=== PATIENT | male | born 1950 | race Caucasian/White ===

== ENCOUNTER 2022-09-06 17:00 | Inpatient (IN) | payer OTHER, SELFPAY ==
[2022-09-06 17:01] VITALS: BP 96/59; PULSE 105; RESP 20; TEMP 36.6; O2SAT 96; BMI 40.6
--- NOTE | 2022-09-06 17:15 | EKG12_ITS ---
Test Reason : BACK PAIN/SYNCOPE Blood Pressure : / mmHG Vent. Rate : 103 BPM Atrial Rate : 000 BPM P-R Int : 000 ms QRS Dur : 100 ms QT Int : 380 ms P-R-T Axes : 000 002 031 degrees QTc Int : 497 ms Atrial fibrillation with rapid ventricular response Nonspecific ST abnormality Poor R wave progression Abnormal ECG Confirmed by JOHANNA GRIMALDO, WILNER ([id number]), video tape editor RASHAUN SHAW ([id number]) on 09/08/2022 10:41:59 AM Referred By: ELAINE/ISAIAH Confirmed By:WILNER SPENCER MD
--- NOTE | 2022-09-06 17:28 | EX.ED.DYSGE1 ---
HPI History of Present Illness Chief Complaint: Weakness Narrative Narrative: 72-year-old male presents with diffuse weakness, weight loss and back pain. There is no documented past medical history. Upon chart review there is no recent imaging or hospitalizations, ED visits noted. Patient states he has a history of COPD, CHF. Patient states he had 2 months of back pain after fall that time. States the pain is constant, severe, located over the mid to lower back. States the pain does not radiate. Is worse with movement improved by rest. Patient denies any saddle anesthesia, urinary tension, bowel or bladder incontinence, lower extremity weakness, fever or IV drug use, no recent spinal manipulation or surgery, no recent urinary catheterization. Patient states he also has diffuse weakness, noted 1 episode of nonbloody nonbilious vomitus yesterday. States his pain has gotten increasingly worse despite taking tramadol. Old chart review: No records in [facility] or [facility] Medical History Afib Congestive heart failure (CHF) COPD (chronic obstructive pulmonary disease) Former smoker Hypertension Home Medications furosemide 20 mg tablet (Lasix) 20 mg PO DAILY 09/06/22 [History Last Taken Unknown] lisinopril 10 mg tablet 10 mg PO QHS 09/06/22 [History Last Taken Unknown] metoprolol tartrate 25 mg tablet 25 mg PO BID 09/06/22 [History Last Taken Unknown] mometasone 200 mcg/actuation HFA aerosol inhaler 1 puff inhalation BID 09/06/22 [History Last Taken Unknown] olodaterol 2.5 mcg/actuation mist for inhalation 2 inh inhalation DAILY 09/06/22 [History Last Taken Unknown] simvastatin 10 mg tablet 10 mg PO QHS 09/06/22 [History Last Taken Unknown] terazosin 2 mg capsule 2 mg PO QHS 09/06/22 [History Last Taken Unknown] tramadol 50 mg tablet 50 mg PO BID PRN Pain 09/06/22 [History Last Taken Unknown] warfarin 5 mg tablet 5 mg PO DAILY 09/06/22 [History Last Taken Unknown] Allergy/AdvReac Type Severity Reaction Status Date / Time pramoxine Allergy Rash Verified 09/06/22 18:48 Social History Smoking Status: Former smoker ROS ROS ED ROS Narrative Constitutional: Denies fever HEENT: Denies sore throat Neck: Denies neck pain Cardiovascular: Denies chest pain, syncope Respiratory: Denies shortness of breath GI: Denies nausea vomiting or abdominal pain : Denies changes in urinary habits Musculoskeletal: Endorses back pain Neurologic: Denies focal weakness, endorses diffuse weakness, denies slurred speech Skin denies rash Endocrine: Endorses weight loss EXAM Physical Exam Narrative Exam Narrative: Nursing triage notes reviewed, Vital signs reviewed Constitutional: please see mdm HENT: MMM Eyes: Pupils equal round and reactive to light, Extraocular muscles intact Neck: No stridor, no JVD, full neck ROM Lungs: Mild conversational dyspnea, orthopnea noted with reclining of the cot. No respiratory distress noted Heart: Regular rate and rhythm, No murmurs, No rubs and No gallops, 2+ distal pulses (radial, femoral, posterior tibial) in all extremities Abdomen: Soft, right-sided TTP, but no, rigidity, rebound or guarding, no obvious peritoneal signs, no palpable pulsatile abdominal masses, no auscultated abdominal bruit : No CVAT Back: No midline step-offs deformities of the CT or L-spine. TTP over thoracic and upper lumbar spine. Extremities: Chronic venous stasis changes to bilateral lower extremities, no chery pitting edema Neuro: No focal neurological deficits, cranial nerves II through XII intact, 5/5 strength in all extremities. Intact sensation to light touch in all extremities, 2+ reflexes bilateral patella dens. Gait not assessed secondary to acuity of condition. No ataxia. Skin: Chronic appearing dark discoloration of bilateral lower extremities. Const Vital Signs: 09/06/22 17:01 09/06/22 17:49 09/06/22 17:49 Temperature 97.8 F Temperature Source Temporal Pulse Rate 105 H 97 Respiratory Rate 20 H 23 H Respiratory Effort Normal Respiratory Pattern Normal Blood Pressure 96/59 L 125/59 H Blood Pressure Mean 71 81 Pulse Ox 96 95 Oxygen Delivery Method Room Air Room Air 09/06/22 21:24 09/06/22 22:00 Temperature 97.7 F L Temperature Source Temporal Pulse Rate 93 87 Respiratory Rate 17 16 Respiratory Effort Respiratory Pattern Blood Pressure 128/96 H 150/123 H Blood Pressure Mean 106 132 Pulse Ox 97 96 Oxygen Delivery Method Room Air Room Air MDM MDM MDM Narrative Medical decision making narrative: 72-year-old male here with acute on chronic back pain, diffuse weakness and weight loss in the setting of atrial fibrillation (on Coumadin), COPD and CHF. Patient is a poor historian. Cannot access additional records in [facility] or [facility]. Patient was initially hypotensive, tachycardic and mildly tachypneic. He appeared distressed in my initial exam. His hypotension improved without significant intervention. He was given 25 mcg of fentanyl for pain control. Initial exam without focal cardiopulmonary abnormalities, he had chronic appearing lower extremity venous stasis changes. He had no focal neurologic deficits. He had diffuse weakness. He had midline T and L tenderness on my exam but he had no back pain red flags to suggest a spinal emergency at this time. He did have right-sided abdominal TTP but no peritoneal signs. Given nonspecific complaint I obtained a broad lab and imaging work-up to further elucidate etiology of patient complaints. I obtained a chest x-ray to rule out pneumonia, evidence of CHF. I obtained CT scans of the thoracic, lumbar spine given tenderness to palpation noted on exam. Also obtain a CT scan of the abdomen pelvis. I obtained labs including a lipase, CBC, BMP. I obtained a troponin EKG BNP. Also obtain a lactate given initial hypotension and tachycardia to screen for signs of end organ hypoperfusion. Labs without evidence of systemic inflammation, urine infection, acute kidney injury or severe electrolyte abnormalities. There was a elevated lactate which is likely secondary to transient hypotension. No evidence of infection, no source. I doubt this is related to sepsis or severe systemic infection. We will repeat lactate after fluid resuscitation patient's BNP is mildly elevated but had no pulmonary edema and had chronic venous stasis changes but no obvious pitting edema. INR supratherapeutic there is no bleeding or significant anemia in fact but his hemoglobin is elevated. Imaging remarkable for no intra-abdominal abnormalities however did show a T11 and T12 compression fracture. This is the likely caused the patient severe back pain and weakness. Gave narcotic pain medicine. There is ambulate the patient and attempt to discharge him with oral pain medicine as the patient has a stable spine fracture however patient cannot ambulate stated I feel comfortable going home stated he like to be admitted to the hospital for pain control and physical therapy. I communicated this to the internal medicine doctor who accepted the patient's case. Lab Data Attestation: I reviewed the patient's lab results. Lab results narrative: CBC without leukocytosis, severe anemia, no thrombocytopenia. BMP without significant electrolyte abnormalities, no acute kidney injury, BNP mildly elevated suggestive of a volume overload Troponin negative no evidence of myocardial ischemia Lipase is wnl indicating no pancreatic inflammation. LFTs without evidence of hepatobiliary pathology Lactate elevated concerning for endorgan hypoperfusion will give fluids and repeat lactate Labs: Laboratory Results - last 24 hr 09/06/22 09/06/22 09/06/22 17:00 17:00 17:00 WBC 8.9 RBC 5.75 Hgb 16.7 H Hct 51.8 MCV 90.1 MCH 29.0 MCHC 32.2 RDW Std Deviation 47.7 H RDW Coeff of Medardo 14.5 Plt Count 275 MPV 11.5 Immature Gran % (Auto) 0.300 Neut % (Auto) 66.1 Lymph % (Auto) 21.3 [place] % (Auto) 10.3 H Eos % (Auto) 1.0 Baso % (Auto) 1.0 Absolute Neuts (auto) 5.9 Absolute Lymphs (auto) 1.90 Nucleated RBC % 0 PT INR Sodium 138 Potassium 3.9 Chloride 105 Carbon Dioxide 25.0 Anion Gap 8 BUN 18 Creatinine 1.19 Estim Creat Clear Calc 60.68 Est GFR (MDRD) Af Amer 77 Est GFR (MDRD) Non-Af 64 BUN/Creatinine Ratio 15.1 Glucose 156 H Lactic Acid Calcium 10.2 H Total Bilirubin Direct Bilirubin AST ALT Alkaline Phosphatase Troponin I High Sens 16 B-Natriuretic Peptide 273.3 H Total Protein Albumin Globulin Lipase 67 L Urine Color Urine Clarity Urine pH Ur Specific Center [place] Urine Protein Urine Glucose (UA) Urine Ketones Urine Occult Blood Urine Nitrite Urine Bilirubin Urine Urobilinogen Ur Leukocyte Esterase Urine RBC Urine WBC Ur Squamous Epith Cells Urine Bacteria Hyaline Casts Fine Granular Casts Urine Mucus 09/06/22 09/06/22 09/06/22 17:00 18:05 20:05 WBC RBC Hgb Hct MCV MCH MCHC RDW Std Deviation RDW Coeff of Medardo Plt Count MPV Immature Gran % (Auto) Neut % (Auto) Lymph % (Auto) [place] % (Auto) Eos % (Auto) Baso % (Auto) Absolute Neuts (auto) Absolute Lymphs (auto) Nucleated RBC % PT INR Sodium Potassium Chloride Carbon Dioxide Anion Gap BUN Creatinine Estim Creat Clear Calc Est GFR (MDRD) Af Amer Est GFR (MDRD) Non-Af BUN/Creatinine Ratio Glucose Lactic Acid 2.5 H* Calcium Total Bilirubin 1.30 H Direct Bilirubin 0.48 H AST 28 ALT 25 Alkaline Phosphatase 105 Troponin I High Sens B-Natriuretic Peptide Total Protein 8.6 H Albumin 3.1 L Globulin 5.5 H Lipase Urine Color Yellow Urine Clarity Clear Urine pH 6.5 Ur Specific Center [place] 1.015 Urine Protein 30 H Urine Glucose (UA) Normal Urine Ketones 5 H Urine Occult Blood 10 H Urine Nitrite Negative Urine Bilirubin 1 H Urine Urobilinogen 8 H Ur Leukocyte Esterase 25 H Urine RBC 0-5 SEEN Urine WBC 0-5 SEEN Ur Squamous Epith Cells 0-5 SEEN Urine Bacteria 1+ Hyaline Casts 0-5 SEEN Fine Granular Casts 0-5 SEEN Urine Mucus 1+ 09/06/22 09/06/22 20:37 21:33 WBC RBC Hgb Hct MCV MCH MCHC RDW Std Deviation RDW Coeff of Medardo Plt Count MPV Immature Gran % (Auto) Neut % (Auto) Lymph % (Auto) [place] % (Auto) Eos % (Auto) Baso % (Auto) Absolute Neuts (auto) Absolute Lymphs (auto) Nucleated RBC % PT 54.0 H INR 6.1 H* Sodium Potassium Chloride Carbon Dioxide Anion Gap BUN Creatinine Estim Creat Clear Calc Est GFR (MDRD) Af Amer Est GFR (MDRD) Non-Af BUN/Creatinine Ratio Glucose Lactic Acid 1.8 Calcium Total Bilirubin Direct Bilirubin AST ALT Alkaline Phosphatase Troponin I High Sens B-Natriuretic Peptide Total Protein Albumin Globulin Lipase Urine Color Urine Clarity Urine pH Ur Specific Center [place] Urine Protein Urine Glucose (UA) Urine Ketones Urine Occult Blood Urine Nitrite Urine Bilirubin Urine Urobilinogen Ur Leukocyte Esterase Urine RBC Urine WBC Ur Squamous Epith Cells Urine Bacteria Hyaline Casts Fine Granular Casts Urine Mucus Radiography Diagnostic Testing: Clinical Impression(s) from Imaging Studies Abdomen/Pelvis CT 09/06/22 17:49 IMPRESSION: Colonic diverticulosis. No obstruction or abscess. Cirrhotic contour of the liver. Electronically Signed: Marcus Márquez MD at 19:36 EDT , Lumbar Spine CT 09/06/22 17:49 IMPRESSION: Spondylolisthesis with spondylolysis at the lumbosacral junction. Lower thoracic compression fractures. Electronically Signed: Marcus Márquez MD at 19:41 EDT , Thoracic Spine CT 09/06/22 17:49 IMPRESSION: T11 and T12 compression fractures. Electronically Signed: Marcus Márquez MD at 19:38 EDT , Chest X-Ray 09/06/22 18:45 IMPRESSION: Degenerative changes, as described above. No demonstrated acute cardiopulmonary process. Electronically Signed: Marcus Márquez MD at 19:57 EDT , EKG Initial EKG: Attestation: I personally reviewed and interpreted this EKG as follows: Comments: EKG with rate controlled A. fib, normal axis, prolonged QT, no STEMI Discharge Plan Dx/Rx/DC Orders Clinical Impression: Compression fx, thoracic spine, Elevated lactic acid level, Supratherapeutic INR Disposition Disposition: Acute Care Hospital [facility] Discharge Date/Time: 09/06/22 23:10
[2022-09-06 17:49] VITALS: BP 125/59; PULSE 97; RESP 23; O2SAT 95
--- NOTE | 2022-09-06 17:49 | CT_ITS ---
STUDY: CT ABDOMEN AND PELVIS WITHOUT CONTRAST REASON FOR EXAM: Male, 72 years old. Right sided abdominal pain, n/v RADIATION DOSAGE (If Supplied By Facility): CTDIvol = ( 24.18 ) mGy, DLP = ( 1195.98 ) mGycm TECHNIQUE: Transaxial images were obtained from the dome of the diaphragm to the symphysis pubis without oral contrast, and without intravenous contrast. Sagittal and coronal images were reconstructed. Individualized dose optimization techniques were used for this CT. COMPARISON: None. FINDINGS: The visualized lung bases are unremarkable. There are coronary artery and mitral annular calcifications. There is a diffuse contour abnormality of the liver consistent with cirrhotic changes. Normal gallbladder and extrahepatic biliary system. There are multiple benign calcified granulomata of the spleen. Normal pancreas. Normal bilateral adrenal glands. Normal right kidney. Normal left kidney. Normal visualized stomach. Normal small intestine. There are multiple colonic diverticula consistent with diverticulosis. The appendix is visualized and appears normal. There is diffuse atherosclerotic calcification of the abdominal aorta, without a demonstrated aneurysm. Normal inferior vena cava. Normal retroperitoneum. Normal urinary bladder. There are prostatic calcifications. There is no free fluid in the abdomen or pelvis. Normal abdominal wall. There are diffuse degenerative changes of the visualized lumbar spine. There are T11 and T12 compression fractures of uncertain age. There is spondylolisthesis with spondylolysis at the lumbosacral junction. CT/Abdomen/Pelvis without Cont IMPRESSION: Colonic diverticulosis. No obstruction or abscess. Cirrhotic contour of the liver. Electronically Signed: Marcus Márquez MD at 19:36 EDT ,
--- NOTE | 2022-09-06 17:49 | CT_ITS ---
STUDY: CT THORACIC SPINE WITHOUT CONTRAST REASON FOR EXAM: Male, 72 years old. Mid back pain RADIATION DOSAGE (If Supplied By Facility): CTDIvol = ( 38.80 ) mGy, DLP = ( 1544.04 ) mGycm TECHNIQUE: The patient was scanned in a multi detector CT scanner. High resolution imaging was performed. Images were obtained from C7 to L1. Sagittal and coronal images were reconstructed. Individualized dose optimization techniques were used for this CT. COMPARISON: None. FINDINGS: Normal visualized cervical spine. Normal kyphosis of the thoracic spine. There is no substantial scoliosis. There is multilevel endplate spondylosis of the thoracic spine. There is a T11 compression fracture is 60% loss of height. There is T12 compression fracture with 30% loss of height of the superior end plate. The soft tissue structures are unremarkable. There are atherosclerotic and granulomatous calcifications. CT/Spine Thoracic without Contras IMPRESSION: T11 and T12 compression fractures. Electronically Signed: Marcus Márquez MD at 19:38 EDT ,
--- NOTE | 2022-09-06 17:49 | CT_ITS ---
STUDY: CT LUMBAR SPINE WITHOUT CONTRAST REASON FOR EXAM: Male, 72 years old. Back pain RADIATION DOSAGE (If Supplied By Facility): CTDIvol = ( 45.25 ) mGy, DLP = ( 1337.27 ) mGycm TECHNIQUE: The patient was scanned in a multi detector CT scanner. High resolution transaxial imaging was performed. Images were obtained from T12 to sacrum. Sagittal and coronal images were reconstructed. Individualized dose optimization techniques were used for this CT. COMPARISON: None FINDINGS: Normal lumbar lordosis. There is grade 2 spondylolisthesis at L5-S1 with pars interarticularis defects of L5. There is no substantial scoliosis. Normal vertebrae of the lumbar spine. There is no demonstrated compression deformity or fracture of the visualized lumbar vertebrae. There is T11 compression fracture with 60% loss of height. The T12 compression fracture 30% loss of height of the endplate. L1-2: Normal endplates. Normal disc height and morphology. Normal bilateral facet joints. Normal central canal and bilateral lateral recesses. Normal bilateral intervertebral neural foramina. L2-3: Normal endplates. Normal disc height and morphology. Normal bilateral facet joints. Normal central canal and bilateral lateral recesses. Normal bilateral intervertebral neural foramina. L3-4: Disc bulge. Spurring of the bilateral facet joints. Normal central canal and bilateral lateral recesses. Normal bilateral intervertebral neural foramina. L4-5: Disc bulge and spurring. Facet spurring. No canal stenosis or neural foramina are patent. L5-S1: Disc space narrowing. Facet spurring. No canal stenosis. Bilateral foraminal distortion with narrowing and encroachment. Normal visualized paraspinous soft tissue structures. There are atherosclerotic calcifications. CT/Spine Lumbar without Contrast IMPRESSION: Spondylolisthesis with spondylolysis at the lumbosacral junction. Lower thoracic compression fractures. Electronically Signed: Marcus Márquez MD at 19:41 EDT ,
[2022-09-06] MEDS: fentaNYL 100 MCG/2 ML Ampul 25 MCG IV (18:02)
[2022-09-06 18:12] LABS: Absolute Neutrophil Count 5.9 X10^3/uL (2.0-7.7); Basophil# 0.09 X10^3/uL; Eosinophil# 0.09 X10^3/uL; Hematocrit 51.8 % (40-54); Hemoglobin 16.7 g/dL (13.0-16.5); Lymphocyte % 21.3 % (19-41); Mean Corp Hgb Conc 32.2 g/dL (32-36); Mean Corpuscular Volume 90.1 fL (80-94); Mean Platelet Vol. 11.5 fl (6.2-12.0); Monocyte# 0.92 X10^3/uL; Monocyte% 10.3 % (0-10); NRBC Flagged by Analyzer 0 % (0-5); Neutrophil # 5.91 X10^3/uL (2.7-7.7); Neutrophil % 66.1 % (47-70); Platelet Count 275 K/mm3 (150-450); RBC Distribution Width CV 14.5 % (11.6-14.6); RBC Distribution Width SD 47.7 fl (35.1-43.9); Red Blood Count 5.75 M/mm3 (4.6-6.2); White Blood Count 8.9 K/mm3 (4.4-11.0)
[2022-09-06 18:34] LABS: Anion Gap 8 (5-15); BUN 18 mg/dL (7-18); BUN/Creat Ratio 15.1 RATIO (10-20); Calcium,Total 10.2 mg/dL (8.5-10.1); Chloride 105 mmol/L (98-107); Creatinine, Serum 1.19 mg/dL (0.70-1.30); EST Glomerular Filtration Rate 64 mL/min (>60); Est Glom Filt Rate - Afr Amer 77 mL/min (>60); Estimated Creatinine Clearance 60.68 ml/min; Glucose 156 mg/dL (74-106); Lipase 67 U/L (73-393); Potassium 3.9 mmol/L (3.5-5.1); Sodium Level 138 mmol/L (136-145); Troponin-I HS 16 pg/mL (3.0-78.0)
[2022-09-06 18:37] LABS: BNP,B-Type NATRIURETIC PEPTIDE 273.3 pg/mL (0-100)
[2022-09-06 18:40] LABS: AST(SGOT) 28 U/L (15-37); Alanine Aminotransfer ALT/SGPT 25 U/L (16-61); Albumin, Serum 3.1 g/dL (3.2-5.0); Alkaline Phosphatase 105 U/L (45-117); Bilirubin, Direct 0.48 mg/dL (0.00-0.30); Globulin 5.5 g/dL (2.2-4.2); Protein, Total 8.6 g/dL (6.4-8.2)
--- NOTE | 2022-09-06 18:45 | RAD_ITS ---
STUDY: X-RAY CHEST REASON FOR EXAM: Male, 72 years old. Cough, weakness TECHNIQUE: frontal view of the chest. COMPARISON: None. FINDINGS: The lungs are clear and expanded. There is no demonstrated pleural abnormality. Normal size heart. Normal mediastinum and yani. Normal visualized pulmonary arteries. There is atherosclerotic calcification of the aortic arch. There are diffuse degenerative changes of the visualized thoracic spine. Normal visualized ribs, clavicles, and shoulders. There is no demonstrated abnormality of the visualized soft tissue structures of the upper abdomen. RAD/Chest 1 View (Portable) IMPRESSION: Degenerative changes, as described above. No demonstrated acute cardiopulmonary process. Electronically Signed: Marcus Márquez MD at 19:57 EDT ,
[2022-09-06 19:00] LABS: Lactic Acid 2.5 mmol/L (0.4-1.9)
[2022-09-06 20:26] LABS: Color, Urine Yellow (Yellow); Glucose, Dipstick Normal (Normal); Ketone-Dipstick 5 mg/dl (Negative); Leukocyte Esterase-Dipstick 25 /ul (Negative); Nitrite-Dipstick Negative (Negative); Occult Blood-Urine 10 /ul (Negative); Protein-Dipstick 30 mg/dl (Negative); Specific Gravity, Urine 1.015 (1.002-1.030); Urine Clarity Clear (Clear); Urine Urobilinogen 8 mg/dl (Normal); Urine pH 6.5 (5.0 - 8.0)
[2022-09-06 20:39] LABS: Urine Bilirubin Dipstick 1 mg/dL (Negative)
[2022-09-06 21:01] LABS: International Normalized Ratio 6.1
[2022-09-06 21:09] LABS: Red Blood Cells-Urine 0-5 SEEN /hpf (0-5); White Blood Cells 0-5 SEEN /hpf (0-5)
[2022-09-06 21:10] LABS: Bacteria 1+ /hpf (None Seen); Mucous, Urine 1+ /hpf (<or=2+); Squamous Epithelial Cells - UA 0-5 SEEN /hpf (0-5)
[2022-09-06 21:11] LABS: Fine Granular Cast- Urine 0-5 SEEN /lpf (0-5); Hyaline Cast 0-5 SEEN /lpf (0-5)
[2022-09-06] MEDS: Morphine 4 MG/ML Syringe IV (21:18)
[2022-09-06] MEDS: 0.9% Normal Saline 1,000 ML 999 ML IV (21:23)
[2022-09-06 21:24] VITALS: BP 128/96; PULSE 93; RESP 17; O2SAT 97
[2022-09-06 22:00] VITALS: BP 150/123; PULSE 87; RESP 16; TEMP 36.5; O2SAT 96
[2022-09-06 22:11] LABS: Reflex Lactate? Y
[2022-09-06 22:14] LABS: Lactic Acid 1.8 mmol/L (0.4-1.9)
--- NOTE | 2022-09-06 22:19 | HP.PCM.HOS_ITS ---
HPI - General General Date of Admission: 09/06/22 Date of Service: 09/06/22 Chief Complaint: syncope HPI Narrative ANDER DIAZ, is a 72 M who presents presents with numerous complaints. Patient has been having very extreme back pain for about 2 months but denies any falls at that time that may have precipitated it. He stated that he was cleaning his refrigerator and had some trouble getting up but did not fall at that time. He is experiencing paresthesias down his left lower extremity. Denies any bowel or bladder incontinence. Over the past week, patient has passed out 2-4 times.. He will state that he will have some paresthesias over the left side of his face and then next he knows he wakes up on the floor. Patient does claim to back pain that radiates to his abdomen. [facility] Medical History (Updated 09/06/22 @ 22:[address] Aj Randolph DO) Afib Congestive heart failure (CHF) COPD (chronic obstructive pulmonary disease) Former smoker Hypertension Home Medications furosemide 20 mg tablet (Lasix) 20 mg PO DAILY 09/06/22 [History Last Taken Unknown] lisinopril 10 mg tablet 10 mg PO QHS 09/06/22 [History Last Taken Unknown] metoprolol tartrate 25 mg tablet 25 mg PO BID 09/06/22 [History Last Taken Unknown] mometasone 200 mcg/actuation HFA aerosol inhaler 1 puff inhalation BID 09/06/22 [History Last Taken Unknown] olodaterol 2.5 mcg/actuation mist for inhalation 2 inh inhalation DAILY 09/06/22 [History Last Taken Unknown] simvastatin 10 mg tablet 10 mg PO QHS 09/06/22 [History Last Taken Unknown] terazosin 2 mg capsule 2 mg PO QHS 09/06/22 [History Last Taken Unknown] tramadol 50 mg tablet 50 mg PO BID PRN Pain 09/06/22 [History Last Taken Unknown] warfarin 5 mg tablet 5 mg PO DAILY 09/06/22 [History Last Taken Unknown] Allergy/AdvReac Type Severity Reaction Status Date / Time pramoxine Allergy Rash Verified 09/06/22 18:48 Social History Smoking Status: Former smoker ROS ROS Purnima Has had chronic lower extremity edema currently with stasis changes to his lower extremities. No bowel or bladder incontinence. All review of systems were negative except as mentioned above in the history of present illness and the other review of systems. Vital Signs Vital Signs Vital Signs: 09/06/22 17:01 09/06/22 17:49 09/06/22 17:49 Temperature 36.6 C Temperature Source Temporal Pulse Rate 105 H 97 Respiratory Rate 20 H 23 H Respiratory Effort Normal Respiratory Pattern Normal Blood Pressure 96/59 L 125/59 H Blood Pressure Mean 71 81 Pulse Ox 96 95 Oxygen Delivery Method Room Air Room Air 09/06/22 21:24 09/06/22 22:00 Temperature 36.5 C L Temperature Source Temporal Pulse Rate 93 87 Respiratory Rate 17 16 Respiratory Effort Respiratory Pattern Blood Pressure 128/96 H 150/123 H Blood Pressure Mean 106 132 Pulse Ox 97 96 Oxygen Delivery Method Room Air Room Air Weight Weight: 136.106 kg Body Mass Index (BMI) 40.6 Physical Exam Const alert and no apparent distress HEENT normocephalic, head/scalp atraumatic, hearing grossly normal bilaterally and moist oral mucous membranes Eyes PERRL Resp normal respiratory effort, no retractions, no use of accessory muscles and clear to auscultation bilaterally Cardio regular rate, regular rhythm, S1 normal heart sound and S2 normal heart sound GI normal to inspection, nondistended, normoactive bowel sounds, soft to palpation, non-tender and non-distended Extremity normal to inspection Extremity Narrative: Venous stasis changes to the lower extremities with bottleneck deformities. Skin Skin Narrative: Venous stasis changes to the lower extremities. Neuro moves all extremities and no focal motor deficits Psych affect normal Results Lab / Micro Data Result Diagrams: 09/06/22 17:00 09/06/22 17:00 Labs: Laboratory Results - last 24 hr 09/06/22 17:00: WBC 8.9, RBC 5.75, Hgb 16.7 H, Hct 51.8, MCV 90.1, MCH 29.0, MCHC 32.2, RDW Std Deviation 47.7 H, RDW Coeff of Medardo 14.5, Plt Count 275, MPV 11.5, Immature Gran % (Auto) 0.300, Neut % (Auto) 66.1, Lymph % (Auto) 21.3, [place] % (Auto) 10.3 H, Eos % (Auto) 1.0, Baso % (Auto) 1.0, Absolute Neuts (auto) 5.9, Absolute Lymphs (auto) 1.90, Nucleated RBC % 0 09/06/22 17:00: Sodium 138, Potassium 3.9, Chloride 105, Carbon Dioxide 25.0, Anion Gap 8, BUN 18, Creatinine 1.19, Estim Creat Clear Calc 60.68, Est GFR (MDRD) Af Amer 77, Est GFR (MDRD) Non-Af 64, BUN/Creatinine Ratio 15.1, Glucose 156 H, Calcium 10.2 H, Troponin I High Sens 16, Lipase 67 L 09/06/22 17:00: B-Natriuretic Peptide 273.3 H 09/06/22 17:00: Total Bilirubin 1.30 H, Direct Bilirubin 0.48 H, AST 28, ALT 25, Alkaline Phosphatase 105, Total Protein 8.6 H, Albumin 3.1 L, Globulin 5.5 H 09/06/22 18:05: Lactic Acid 2.5 H* 09/06/22 20:05: Urine Color Yellow, Urine Clarity Clear, Urine pH 6.5, Ur Specific [place] 1.015, Urine Protein 30 H, Urine Glucose (UA) Normal, Urine Ketones 5 H, Urine Occult Blood 10 H, Urine Nitrite Negative, Urine Bilirubin 1 H, Urine Urobilinogen 8 H, Ur Leukocyte Esterase 25 H, Urine RBC 0-5 SEEN, Urine WBC 0-5 SEEN, Ur Squamous Epith Cells 0-5 SEEN, Urine Bacteria 1+, Hyaline Casts 0-5 SEEN, Fine Granular Casts 0-5 SEEN, Urine Mucus 1+ 09/06/22 20:37: PT 54.0 H, INR 6.1 H* 09/06/22 21:33: Lactic Acid 1.8 Radiology Impression Abdomen/Pelvis CT 09/06/22 17:49 IMPRESSION: Colonic diverticulosis. No obstruction or abscess. Cirrhotic contour of the liver. Electronically Signed: Marcus Márquez MD at 19:36 EDT , Lumbar Spine CT 09/06/22 17:49 IMPRESSION: Spondylolisthesis with spondylolysis at the lumbosacral junction. Lower thoracic compression fractures. Electronically Signed: Marcus Márquez MD at 19:41 EDT Reading Location ID and State: [address] [place] [address] , Service support , Thoracic Spine CT 09/06/22 17:49 IMPRESSION: T11 and T12 compression fractures. Electronically Signed: Marcus Márquez MD at 19:38 EDT Reading Location ID and State: [facility] / [place] , Service support , Chest X-Ray 09/06/22 18:45 IMPRESSION: Degenerative changes, as described above. No demonstrated acute cardiopulmonary process. Electronically Signed: Marcus Márquez MD at 19:57 EDT Reading Location ID and State: [address] [place] [address] , Service support , Assessment & Plan Assessment/Plan (1) Syncope: QUALIFIERS: Syncope type: unspecified Qualified Code(s): R55 - Syncope and collapse PLAN: Unclear type but I doubt due to arrhythmia as patient does have some warning before this happens. Plan: * Hold furosemide * Give IV fluids * Check orthostatic vital signs * Check echo (2) Compression fx, thoracic spine: QUALIFIERS: Encounter type: initial encounter Thoracic vertebra fracture level: T11 Qualified Code(s): S22.080A - Wedge compression fracture of T11-T12 vertebra, initial encounter for closed fracture PLAN: Unclear if new or old Patient has a 60% loss of height of T11 and 30% loss of height of T12. Plan: * Check an MRI to see if acute versus chronic. If new, would recommend evaluation with a kyphoplasty through spine surgery or pain management * Check a 25-hydroxy vitamin D level and replace if less than 50 (3) Elevated lactic acid level: PLAN: Unclear significance but that subsequently resolved. No additional work- up at this time (4) Supratherapeutic INR: PLAN: Secondary to warfarin. No evidence of bleeding Plan: * Hold warfarin * Monitor INR (5) Debility: PLAN: Secondary to above particularly the vertebral compression fractures PT OT evaluate and treat Did discuss possibility of patient requiring longterm facility when he is ready for discharge PLAN: Plan Chronic conditions * Chronic A. fib: Warfarin on hold given the supratherapeutic INR. Continue with metoprolol titrate * Morbid obesity VTE prophylaxis: Not indicated as patient has a supratherapeutic INR CODE STATUS: Full. Discussed with the patient. Case cussed the patient's son at bedside. Charges/Coding Visit Charges Inpatient E&M: 17476 Init Hosp L3
[2022-09-06 23:06] VITALS: BP 138/86; PULSE 82; RESP 17; O2SAT 95
--- NOTE | 2022-09-06 23:23 | ECHOCS_ITS ---
Reason For Study: SYNCNOPE Procedure This was a 2D Doppler, Color Flow transthoracic echocardiogram. Technically difficult study. Patient was uncooperative. Contrast injection was performed. Exam performed portable in patient room. Left Ventricle Normal LV size. Left ventricular systolic function is normal. The estimated ejection fraction is 60 %. No regional wall motion abnormalities noted. Right Ventricle Normal RV size. Normal systolic function. Atria Normal left atrium. Normal right atrium. Mitral Valve Normal mitral valve. Tricuspid Valve Normal tricuspid valve. Aortic Valve Normal aortic valve. Pulmonic Valve Normal pulmonic valve. Great Vessels Normal aortic root. The pulmonary artery is normal size. Normal inferior vena cava. Pericardium/Pleural No pericardial effusion. Medication Diluted definity 2ml given slow IV push to enhance endocardial definition. MMode/2D Measurements & Calculations LVIDd: 5.3 cm IVSd: 1.8 cm LVOT diam: 2.1 cm LVIDs: 3.5 cm LVPWd: 1.9 cm FS: 33.4 % LVOT area: 3.4 cm2 Ao root diam: 3.5 cm LAV(MOD-bp): 104.9 ml LA A4 area: 28.2 cm2 LAV(MOD-bp) Indexed: 41.6 ml/m2 LAV(MOD-sp2): 141.3 ml LAV(MOD-sp4): 76.4 ml LA dimension(2D): 5.5 cm Doppler Measurements & Calculations MV E max david: 122.1 cm/sec MV V2 max: 111.4 cm/sec Ao V2 max: 344.8 cm/sec MV max P.0 mmHg Ao max P.8 mmHg MV V2 mean: 65.8 cm/sec Ao V2 mean: 212.9 cm/sec MV mean P.1 mmHg Ao mean P.3 mmHg MV V2 VTI: 23.2 cm Ao V2 VTI: 60.4 cm MVA(VTI): 3.0 cm2 MARY(I,D): 1.2 cm2 MARY(V,D): 1.3 cm2 LV V1 max: 128.3 cm/sec SV(LVOT): 70.7 ml PA V2 max: 106.8 cm/sec LV V1 max P.5 mmHg LV V1 mean P.5 mmHg LV V1 mean: 74.1 cm/sec LV V1 VTI: 20.8 cm ECHO/Echo Complete W/ Contrast Interpretation Summary Normal LV size. Left ventricular systolic function is normal. The estimated ejection fraction is 60 %. Contrast injection was performed. Ordering Physician: Aj Randolph Referring Physician: [facility] Performed By: Callie Brown RCS
[2022-09-06 23:27] VITALS: BMI 38.3
[2022-09-06] MEDS: 0.9% Normal Saline 1,000 ML 150 ML IV (23:39)
[2022-09-06 23:54] VITALS: BP 123/78; BP 132/79; BP 73/41; PULSE 74; PULSE 86; PULSE 94
--- NOTE | 2022-09-06 23:56 | EKG12_ITS ---
Test Reason : CARDIAC ENZYMES ORDERED Blood Pressure : / mmHG Vent. Rate : 085 BPM Atrial Rate : 000 BPM P-R Int : 000 ms QRS Dur : 102 ms QT Int : 394 ms P-R-T Axes : 000 -39 014 degrees QTc Int : 468 ms Atrial fibrillation Left axis deviation Abnormal ECG When compared with ECG of 06-SEP-2022 17:06, MANUAL COMPARISON REQUIRED, DATA IS UNCONFIRMED Confirmed by MARK GRIMALDO, JULIAN ([id number]), photographic editor RASHAUN SHAW ([id number]) on 09/08/2022 10:28:10 AM Referred By: Confirmed By:JULIAN FLORES MD
[2022-09-07] VITALS (25 sets, daily range): BP systolic 81–138; BP diastolic 57–89; PULSE 57–93; RESP 14–20; TEMP 36.1–36.7; O2SAT 92–100
[2022-09-07] MEDS: 0.9% Saline Lock 10 ML Syringe IV (00:03)
[2022-09-07 00:39] LABS: Troponin-I HS 16 pg/mL (3.0-78.0)
[2022-09-07 02:29] LABS: Troponin-I HS 17 pg/mL (3.0-78.0)
[2022-09-07] MEDS: Acetaminophen 500 MG Tablet 1000 MG PO ×3 (05:06→21:01)
[2022-09-07 05:51] LABS: Absolute Lymphocyte Count 1.44 X10^3/uL (0.83-4.51); Absolute Neutrophil Count 5.7 X10^3/uL (2.0-7.7); Basophil% 1.2 % (0-1); Eosinophil# 0.11 X10^3/uL; Eosinophils% 1.3 % (0-5); Hemoglobin 15.9 g/dL (13.0-16.5); Lymphocyte # 1.44 X10^3/ul (0.83-4.51); Lymphocyte % 16.8 % (19-41); Mean Corp Hgb Conc 31.8 g/dL (32-36); Mean Corpuscular Hgb 29.2 pg (27.0-32.0); Mean Corpuscular Volume 91.9 fL (80-94); Monocyte# 1.17 X10^3/uL; Monocyte% 13.6 % (0-10); NRBC Flagged by Analyzer 0 % (0-5); Neutrophil # 5.72 X10^3/uL (2.7-7.7); Neutrophil % 66.6 % (47-70); Platelet Count 217 K/mm3 (150-450); RBC Distribution Width CV 14.6 % (11.6-14.6); RBC Distribution Width SD 49.2 fl (35.1-43.9); Red Blood Count 5.44 M/mm3 (4.6-6.2); White Blood Count 8.6 K/mm3 (4.4-11.0)
[2022-09-07 06:17] LABS: Anion Gap 6 (5-15); BUN 21 mg/dL (7-18); BUN/Creat Ratio 22.9 RATIO (10-20); Calcium,Total 9.7 mg/dL (8.5-10.1); Chloride 108 mmol/L (98-107); Creatinine, Serum 0.92 mg/dL (0.70-1.30); EST Glomerular Filtration Rate 86 mL/min (>60); Est Glom Filt Rate - Afr Amer 104 mL/min (>60); Estimated Creatinine Clearance 83.14 ml/min; Glucose 109 mg/dL (74-106); Potassium 4.2 mmol/L (3.5-5.1); Sodium Level 139 mmol/L (136-145); Troponin-I HS 13 pg/mL (3.0-78.0)
[2022-09-07 06:35] LABS: International Normalized Ratio 5.8; Prothrombin Time (Protime)PT. 52.1 SECONDS (11.7-14.9)
--- NOTE | 2022-09-07 06:41 | NURSING ---
Pts primary rn aware of inr of 5.8 at this time.
[2022-09-07] MEDS: Budesonide Respules 0.5 MG/2 ML AMPUL.NEB. INHALATION ×2 (07:05→19:16)
[2022-09-07] MEDS: Albuterol 2.5 MG/3 ML VIAL.NEB. INHALATION ×3 (07:05→19:16)
[2022-09-07] MEDS: oxyCODONE 5 MG Tablet 10 MG PO ×4 (08:04→20:59)
[2022-09-07] MEDS: Metoprolol Tartrate 25 MG Tablet PO ×2 (08:04→21:00)
[2022-09-07 08:13] LABS: Vitamin D,25 Hydroxy 70.5 ng/mL
[2022-09-07] MEDS: 0.9% Normal Saline 1,000 ML 999 ML IV (10:41)
[2022-09-07] MEDS: LORazepam 1 MG Tablet PO (11:11)
--- NOTE | 2022-09-07 11:55 | CASEMGMT ---
RN CM NOTE: RN CM to room for initial assessment. Pt is not in room at this time as he is getting MRI done. Assess to be completed at a later time. Za LINARESN TEODORO CM
--- NOTE | 2022-09-07 12:00 | MRI_ITS ---
STUDY: MRI THORACIC SPINE WITHOUT CONTRAST REASON FOR EXAM: Male, 72 years old. T11 and T12 compression fractures TECHNIQUE: Standardized fat and water weighted pulse sequences were obtained in the sagittal and axial planes. PATIENT BREATHING HEAVY AND DIFFICULTY TO HOLD STILL. WEAKNESS; WEIGHT GAIN; MID TO LOWER BACK PAIN. HX OF FALL ABOUT [address] THORACIC SPINE 09/06/22. COMPARISON: CT of the thoracic spine dated September 06, 2022 FINDINGS: The T11 vertebral plana/compression deformity, with 70% loss of original height is stable when compared to the prior study. Some mild residual acute edema is present throughout the T11 vertebral body. Minimal posterior retropulsion is present. A small disc spur complex at the T11-T12 level contributes to mild compression anterior aspect of the cord and mild to moderate central canal stenosis. The T12 compression deformity is chronic (with 50% loss of height) and without active marrow edema or acute fractures. There are no additional acute or chronic compression deformities of the thoracic spine. Normal kyphosis of the thoracic spine. There is no substantial scoliosis. T1-2, T2-3, T3-4, T4-5, T5-6, T6-7, T7-8, T8-9, T9-10, T10-11, T11-12: Disc desiccation and mild disc space narrowing with endplate spondylosis and MODIC degenerative signal is present at all levels. Small Schmorl''s nodes are present at T9-T10. A diffuse disc bulge at T7-T8 results in mild compression anterior aspect of the cord and mild to moderate central canal stenosis. A disc protrusion at the T4-T5 level results in mild central canal stenosis without cord compression. Normal central canal and intervertebral neural foramina at the remaining corresponding levels. Normal visualized thoracic cord. Normal conus medullaris that terminates at the T12 level. The soft tissue structures are unremarkable. MRI/Spine Thoracic (Routine) IMPRESSION: 1. Acute compression fracture of the T11 vertebral body 2. Mild to moderate central canal stenosis at T11-T12 and T7-T8 3. Chronic compression deformity of the T12 vertebral body 4. Multilevel degenerative changes of the thoracic spine. Electronically Signed: Homero Nicholson MD at 13:18 EDT ,
--- NOTE | 2022-09-07 12:00 | WOUNDNOTE ---
Pt is currently off the unit for testing.
[2022-09-07] MEDS: Lidocaine 5% Patch 1 PATCH TOPICAL (13:15)
--- NOTE | 2022-09-07 14:56 | CASEMGMT ---
Per Vijay VALERIO CM, pt would like [facility] PT/OT at discharge, so order placed at this time. Mike VALERIO CM
--- NOTE | 2022-09-07 15:00 | CASEMGMT ---
TEODORO HARVEY FINANCIAL AGENT CM to room to meet with patient for initial transition planning/care coordination assessment. TEODORO HARVEY introduced self and role at [facility]. Pt voices understanding and consents to assessment at this time. Pt sitting up in chair in room in no distress at this time. Pt is A/O at this time and answers all questions appropriately. Care providers, pharmacy, and demographics verified/updated at this time. PCP: Dr Rivas @ [facility] Pref[facility] Prescription Benefit: [place] Living Will/HPOA: Pt does not currently have LW/HCPOA and declines info at this time. LNOK: , Susie. SonYariel Living Arrangements: Lives w/ in one-story home w/either 5 or 13 steps to enter. Independent w/ADL's @ baseline. and pt share home tasks. He states d/t his recent limitations/pain the past month or so, they get done what they can, but states it is not very clean. Son, Yariel, lives in next-door home (about 15 ft away), but he works during the day and is not always home. Transportation: Pt states drives self and states no transportation concerns at this time. DME: States has the following DME: shower chair, TSR, grab bars, walker, bath solution maker, sock aid, CPAP Pt states no need for further DME at this time. HHC/SNF: No hx of either. Pt states does not want to go to a SNF and wishes to return home. He is interested in HHC. A list of HHC providers including quality and resource use data and consistent with the patient?s preferred geographic region, medical needs, and insurance network were provided from the [employer] Guide. Pt's 1st choice is [facility]HC. [facility] She states referral for HHC will need to come from the [place]. Call placed to TEODORO Gallardo @ [facility] and left re: pt wanting HHC. Phone number for [employer]TER[employer] TE[employer] REPAIRER CM, Shilpa Deshpande, left on VM for Paulina to contact. Pt voices no further concerns/needs at this time. Advised pt to ask for CM if any further questions/concerns/needs arise. Voices understanding. PLAN: Home w/HHC. Za FROST RN, CM
--- NOTE | 2022-09-07 15:57 | PN.HOSP_ITS ---
Subjective Subjective Adequate standing. Orthostatic blood pressures were markedly positive. He was given another liter and will repeat orthostatics later. MRI is pending. Patient does not want to go to a facility if possible and would prefer to go home with home health care at discharge. Therapy services are pending. Objective Data Objective Data Vital Signs: Vital Signs Temp Pulse Resp BP Pulse Ox O2 Del Method 97.9 F 77 18 132/72 H 92 Room Air 09/07/22 14:46 09/07/22 15:00 09/07/22 14:46 09/07/22 14:46 09/07/22 14:46 09/07/22 14:46 Oxygen Delivery Method Room Air Weight: 135.5 kg Body Mass Index (BMI) 38.3 Intake & Output: Intake and Output for Last 24 Hours 09/05/22 09/06/22 09/07/22 23:59 23:59 23:59 Intake Total 1000 / 1000 2680.00 / 2680.00 Output Total 550 / 550 Balance 1000 / 1000 2130.00 / 2130.00 Lab / Micro Data Result Diagrams: 09/07/22 05:33 09/07/22 05:33 Labs: Laboratory Results - last 24 hr 09/06/22 17:00: WBC 8.9, RBC 5.75, Hgb 16.7 H, Hct 51.8, MCV 90.1, MCH 29.0, MCHC 32.2, RDW Std Deviation 47.7 H, RDW Coeff of Medardo 14.5, Plt Count 275, MPV 11.5, Immature Gran % (Auto) 0.300, Neut % (Auto) 66.1, Lymph % (Auto) 21.3, [place] % (Auto) 10.3 H, Eos % (Auto) 1.0, Baso % (Auto) 1.0, Absolute Neuts (auto) 5.9, Absolute Lymphs (auto) 1.90, Nucleated RBC % 0 09/06/22 17:00: Sodium 138, Potassium 3.9, Chloride 105, Carbon Dioxide 25.0, Anion Gap 8, BUN 18, Creatinine 1.19, Estim Creat Clear Calc 60.68, Est GFR (MDRD) Af Amer 77, Est GFR (MDRD) Non-Af 64, BUN/Creatinine Ratio 15.1, Glucose 156 H, Calcium 10.2 H, Troponin I High Sens 16, Lipase 67 L 09/06/22 17:00: B-Natriuretic Peptide 273.3 H 09/06/22 17:00: Total Bilirubin 1.30 H, Direct Bilirubin 0.48 H, AST 28, ALT 25, Alkaline Phosphatase 105, Total Protein 8.6 H, Albumin 3.1 L, Globulin 5.5 H 09/06/22 18:05: Lactic Acid 2.5 H* 09/06/22 20:05: Urine Color Yellow, Urine Clarity Clear, Urine pH 6.5, Ur Specific [place] 1.015, Urine Protein 30 H, Urine Glucose (UA) Normal, Urine Ketones 5 H, Urine Occult Blood 10 H, Urine Nitrite Negative, Urine Bilirubin 1 H, Urine Urobilinogen 8 H, Ur Leukocyte Esterase 25 H, Urine RBC 0-5 SEEN, Urine WBC 0-5 SEEN, Ur Squamous Epith Cells 0-5 SEEN, Urine Bacteria 1+, Hyaline Casts 0-5 SEEN, Fine Granular Casts 0-5 SEEN, Urine Mucus 1+ 09/06/22 20:37: PT 54.0 H, INR 6.1 H* 09/06/22 21:33: Lactic Acid 1.8 09/06/22 23:49: Troponin I High Sens 16 09/07/22 01:50: Troponin I High Sens 17 09/07/22 05:33: WBC 8.6, RBC 5.44, Hgb 15.9, Hct 50.0, MCV 91.9, MCH 29.2, MCHC 31.8 L, RDW Std Deviation 49.2 H, RDW Coeff of Medardo 14.6, Plt Count 217, MPV 11.0, Immature Gran % (Auto) 0.500, Neut % (Auto) 66.6, Lymph % (Auto) 16.8 L, [place] % (Auto) 13.6 H, Eos % (Auto) 1.3, Baso % (Auto) 1.2 H, Absolute Neuts (auto) 5.7, Absolute Lymphs (auto) 1.44, Nucleated RBC % 0 09/07/22 05:33: PT 52.1 H, INR 5.8 H* 09/07/22 05:33: Sodium 139, Potassium 4.2, Chloride 108 H, Carbon Dioxide 25.0, Anion Gap 6, BUN 21 H, Creatinine 0.92, Estim Creat Clear Calc 83.14, Est GFR (MDRD) Af Amer 104, Est GFR (MDRD) Non-Af 86, BUN/Creatinine Ratio 22.9 H, Glucose 109 H, Calcium 9.7, Troponin I High Sens 13 09/07/22 05:33: Vitamin D 25-Hydroxy 70.5 Radiography Diagnostic Testing: Radiology Impression Abdomen/Pelvis CT 09/06/22 17:49 IMPRESSION: Colonic diverticulosis. No obstruction or abscess. Cirrhotic contour of the liver. Electronically Signed: Marcus Márquez MD at 19:36 EDT Reading Location ID and State: [facility] / [place] , Service support , Lumbar Spine CT 09/06/22 17:49 IMPRESSION: Spondylolisthesis with spondylolysis at the lumbosacral junction. Lower thoracic compression fractures. Electronically Signed: Marcus Márquez MD at 19:41 EDT Reading Location ID and State: [facility] / [place] , Service support , Thoracic Spine CT 09/06/22 17:49 IMPRESSION: T11 and T12 compression fractures. Electronically Signed: Marcus Márquez MD at 19:38 EDT Reading Location ID and State: [facility] / [place] , Service support , Chest X-Ray 09/06/22 18:45 IMPRESSION: Degenerative changes, as described above. No demonstrated acute cardiopulmonary process. Electronically Signed: Marcus Márquez MD at 19:57 EDT , Echocardiogram 09/06/22 23:23 Interpretation Summary Normal LV size. Left ventricular systolic function is normal. The estimated ejection fraction is 60 %. Contrast injection was performed. Ordering Physician: Aj Randolph Referring Physician: [facility] Performed By: Callie Brown RCS Thoracic Spine MRI 09/07/22 12:00 IMPRESSION: 1. Acute compression fracture of the T11 vertebral body 2. Mild to moderate central canal stenosis at T11-T12 and T7-T8 3. Chronic compression deformity of the T12 vertebral body 4. Multilevel degenerative changes of the thoracic spine. Electronically Signed: Homero Nicholson MD at 13:18 EDT Reading Location ID and State: [address] [place] [address] , Service support , Physical Exam Const Constitutional Narrative: Obese, older, white male sitting up in bed, appears comfortable at rest however when trying to move in bed he has pain, nontoxic appearing, very pleasant HEENT head/scalp atraumatic and moist oral mucous membranes HEENT Narrative: Dentition is poor, Mallampati is 3, no thrush Head and Scalp: normocephalic Resp normal respiratory effort, no retractions, no use of accessory muscles and clear to auscultation bilaterally Resp Narrative: Diffusely diminished but clear Auscultation: Negative for crackles, rales, rhonchi or wheezes Cardio regular rate, regular rhythm, S1 normal heart sound, S2 normal heart sound, no murmurs, no rub and no gallops GI normal to inspection, nondistended, normoactive bowel sounds, soft to palpation and non-tender Extremity Extremity Narrative: Chronic bilateral lower extremity edema, no cyanosis or clubbing Skin Skin Narrative: Skin changes bilateral lower extremities consistent with chronic venous stasis Neuro oriented x3, moves all extremities and no focal motor deficits Neuro Narrative: Pain in back noted with movement Speech: speech normal Psych affect normal Psych Narrative: Very pleasant and appropriately interactive Assessment & Plan Assessment/Plan (1) Debility: (2) Syncope: QUALIFIERS: Syncope type: unspecified Qualified Code(s): R55 - Syncope and collapse (3) Compression fx, thoracic spine: QUALIFIERS: Encounter type: initial encounter Thoracic vertebra fracture level: T11 Qualified Code(s): S22.080A - Wedge compression fracture of T11-T12 vertebra, initial encounter for closed fracture (4) Supratherapeutic INR: PLAN: Plan Syncope -No arrhythmia noted on telemetry -Echocardiogram with no significant abnormality showing an EF of 60%, normal LV size and no valvular abnormalities -Orthostatics were positive -1 L IV fluid bolus given and will repeat orthostatics later today -We will continue to monitor on telemetry Acute T11 compression fracture -Consult pain management for possible kyphoplasty -Continue scheduled Tylenol -Continue as needed opiates -Continue lidocaine patch -PT and OT following--> patient would like to go home with home health care at discharge Elevated lactic acid -Etiology unclear -Resolved Supratherapeutic INR -Trending down -5.8 today -Continue to hold warfarin -Repeat INR in a.m. Debility -Secondary to compression fractures -PT OT following Persistent atrial fibrillation -Continue home metoprolol -Hold Coumadin given supratherapeutic INR COPD -Continue home inhalers Hyperlipidemia -Continue home statin BPH -Continue home terazosin Chronic venous stasis -Home Lasix on hold given positive orthostasis Hypertension -Continue home lisinopril -Continue home metoprolol -May need to wean or discontinue if orthostasis stays positive despite rehydration History of tobacco abuse -Remote -Encourage continued cessation Obesity -Encourage weight loss -Complicates treatment, prognosis, outcomes DVT prophylaxis -Supratherapeutic INR -Continue to monitor INR daily CODE STATUS -full code Charges/Coding Visit Charges Inpatient E&M: 51420 Subs Hosp L2
[2022-09-07 17:29] LABS: Magnesium 1.9 mg/dL (1.6-2.6)
[2022-09-07] MEDS: Doxazosin 1 MG Tablet 2 MG PO (21:01)
[2022-09-07] MEDS: Atorvastatin Calcium 10 MG Tablet 5 MG PO (21:01)
[2022-09-08] VITALS (13 sets, daily range): BP systolic 111–136; BP diastolic 69–98; PULSE 65–93; RESP 16–20; TEMP 36.4–36.8; O2SAT 95–97
[2022-09-08] MEDS: Acetaminophen 500 MG Tablet 1000 MG PO ×2 (05:06→13:34)
[2022-09-08] MEDS: oxyCODONE 5 MG Tablet 10 MG PO ×3 (05:08→13:43)
[2022-09-08 05:33] LABS: Absolute Lymphocyte Count 1.26 X10^3/uL (0.83-4.51); Absolute Neutrophil Count 4.8 X10^3/uL (2.0-7.7); Basophil# 0.08 X10^3/uL; Basophil% 1.1 % (0-1); Eosinophil# 0.23 X10^3/uL; Eosinophils% 3.1 % (0-5); Hematocrit 47.8 % (40-54); Lymphocyte # 1.26 X10^3/ul (0.83-4.51); Lymphocyte % 16.9 % (19-41); Mean Corp Hgb Conc 31.4 g/dL (32-36); Mean Corpuscular Hgb 29.1 pg (27.0-32.0); Mean Corpuscular Volume 92.6 fL (80-94); Mean Platelet Vol. 10.9 fl (6.2-12.0); Monocyte# 0.99 X10^3/uL; Monocyte% 13.3 % (0-10); NRBC Flagged by Analyzer 0 % (0-5); Neutrophil # 4.84 X10^3/uL (2.7-7.7); Neutrophil % 65.1 % (47-70); Platelet Count 245 K/mm3 (150-450); RBC Distribution Width CV 14.8 % (11.6-14.6); Red Blood Count 5.16 M/mm3 (4.6-6.2); White Blood Count 7.4 K/mm3 (4.4-11.0)
[2022-09-08 05:40] LABS: Prothrombin Time (Protime)PT. 44.4 SECONDS (11.7-14.9)
[2022-09-08 05:42] LABS: International Normalized Ratio 4.7
[2022-09-08 05:49] LABS: Anion Gap 5 (5-15); BUN 23 mg/dL (7-18); BUN/Creat Ratio 25.6 RATIO (10-20); Calcium,Total 9.6 mg/dL (8.5-10.1); Chloride 107 mmol/L (98-107); EST Glomerular Filtration Rate 88 mL/min (>60); Est Glom Filt Rate - Afr Amer 106 mL/min (>60); Estimated Creatinine Clearance 84.99 ml/min; Glucose 105 mg/dL (74-106); Phosphorus 3.4 mg/dL (2.5-4.9); Potassium 4.2 mmol/L (3.5-5.1); Sodium Level 138 mmol/L (136-145)
--- NOTE | 2022-09-08 06:26 | NURSING ---
PT CALLED OUT W COMPLAINTS THAT WHEN HE VOIDED THAT BLOOD WAS GOING OUT OF PENIS. SOME BLOOD WAS NOTED TO BE ON URINAL RIM AND URINE INSIDE SASHA. INSPECTED PENIS NO BLOOD NOTED COMING OUT AT THIS TIME.
[2022-09-08] MEDS: Budesonide Respules 0.5 MG/2 ML AMPUL.NEB. INHALATION (06:56)
[2022-09-08] MEDS: Albuterol 2.5 MG/3 ML VIAL.NEB. INHALATION ×2 (06:56→12:49)
--- NOTE | 2022-09-08 07:28 | US_ITS ---
STUDY: ABDOMINAL ULTRASOUND - RIGHT UPPER QUADRANT REASON FOR VISIT: Male, 72 years old cirrhosis TECHNIQUE: Ultrasound evaluation of the right upper quadrant was performed with real-time and static caballero-scale imaging. TECHNICAL QUALITY: Adequate. COMPARISON: Comparison is made with prior CT scan of the abdomen and pelvis dated 09/06/2022. FINDINGS: Liver: The liver measures 16.1 cm. There is a heterogeneous echogenicity of the liver. There is evidence of a contour abnormality of the liver suggestive of possible cirrhotic changes. The bile ducts are within normal limits. There is hepatic color flow. The direction of portal flow is hepatopetal. There is a 2.3 cm x 2.3 cm x 1.7 cm cyst in the left lobe of the liver. Gallbladder: Normal distended gallbladder. The gallbladder wall measures 2 mm. There is a negative sonographic Gaines''s sign. There is no pericholecystic fluid. There are no gallstones. Common Bile Duct (C.B.D.): The common bile duct measures 4 mm. Pancreas: There is nonvisualization of the pancreas due to overlying bowel gas. Right Kidney: Normal size of the right kidney. The right kidney measures 12.9 cm x 5.5 cm x 4.8 cm. Normal renal cortex. The right cortex measures 1.0 cm. There is a 3.2 cm x 3 cm x 3.4 cm cyst. There is no right hydronephrosis. US/Abdomen Limited IMPRESSION: Heterogeneous echotexture of the liver with findings suggestive of cirrhosis. Cyst is seen in the left lobe of the liver. Electronically Signed: Anderson Vivas MD at 13:18 EDT ,
[2022-09-08 08:50] LABS: Glucose, Dipstick Normal (Normal); Ketone-Dipstick Negative (Negative); Leukocyte Esterase-Dipstick 25 /ul (Negative); Nitrite-Dipstick Negative (Negative); Occult Blood-Urine 250 /ul (Negative); Protein-Dipstick 15 mg/dl (Negative); Specific Gravity, Urine 1.015 (1.002-1.030); Urine Bilirubin Dipstick Negative (Negative); Urine Urobilinogen Normal (Normal)
[2022-09-08 08:52] LABS: Color, Urine Yellow (Yellow); Urine Clarity Sl Cloudy (Clear)
[2022-09-08 09:08] LABS: Bacteria RARE /hpf (None Seen); Mucous, Urine RARE /hpf (<or=2+); Red Blood Cells-Urine 25-50 SEEN /hpf (0-5); Squamous Epithelial Cells - UA 0-5 SEEN /hpf (0-5); White Blood Cells 0-5 SEEN /hpf (0-5)
[2022-09-08] MEDS: Lidocaine 5% Patch 1 PATCH TOPICAL (09:38)
[2022-09-08] MEDS: Metoprolol Tartrate 25 MG Tablet PO (09:38)
--- NOTE | 2022-09-08 10:34 | CASEMGMT ---
Plan is to d/c pt today and this RN CM has not heard back from [facility] clinic regarding getting HHC set up. Call to Paulina at [facility], Dr. Paris's nurse, and another message left regarding same. [facility] have [facility] but does not have a PCP other than Dr. Paris at [place], so will need [place] approval for HHC to be set up. CM to follow. Pt prefers [facility]. SSttrinh VALERIO CM
[2022-09-08] MEDS: busPIRone 5 MG Tablet 10 MG PO (10:40)
--- NOTE | 2022-09-08 10:42 | WOUNDNOTE ---
wound photo: left great toe
--- NOTE | 2022-09-08 11:54 | PCM.DC.SUM ---
Providers Date of Admission: 09/06/22 Date of Discharge: 09/08/22 Primary Care Physician: [facility] Consultations 09/07/22 00:12 Consult: Onc/Wound/ink technician Routine Comment: ON LEFT GREAT TOE A OPEN AREA FROM A BLOOD BLISTER 09/07/22 16:03 Consult: Pain Management Routine Consulting Provider: Angel Musa Reason for Consult: Acute T11 compression fx EMERGENT Consult: No MD Notified: Yes Date Notified: 09/07/22 Time Notified: 16:07 Method of Notification: office notified Reason For Visit: SYNCOPE, DEBILITY, COMPRESSION FRACTURES Diagnosis Discharge Diagnosis (1) Debility: Status: Acute Code(s): R53.81 - Other malaise (2) Syncope: Status: Acute Code(s): R55 - Syncope and collapse Qualifiers: Syncope type: unspecified Qualified Code(s): R55 - Syncope and collapse (3) Compression fx, thoracic spine: Status: Acute Code(s): S22.000A - Wedge compression fracture of unspecified thoracic vertebra, initial encounter for closed fracture Qualifiers: Encounter type: initial encounter Thoracic vertebra fracture level: T11 Qualified Code(s): S22.080A - Wedge compression fracture of T11-T12 vertebra, initial encounter for closed fracture (4) Supratherapeutic INR: Status: Acute Code(s): R79.1 - Abnormal coagulation profile Medications at Discharge Home Medications lisinopril 10 mg tablet 10 mg PO QHS 09/06/22 metoprolol tartrate 25 mg tablet 25 mg PO BID 09/06/22 mometasone 200 mcg/actuation HFA aerosol inhaler 1 puff inhalation BID 09/06/22 olodaterol 2.5 mcg/actuation mist for inhalation 2 inh inhalation DAILY 09/06/22 simvastatin 10 mg tablet 10 mg PO QHS 09/06/22 terazosin 2 mg capsule 2 mg PO QHS 09/06/22 tramadol 50 mg tablet 50 mg PO BID PRN Pain 09/06/22 warfarin 5 mg tablet 5 mg PO DAILY 09/06/22 acetaminophen 500 mg tablet 1,000 mg PO Q8 #0 tabs 09/08/22 buspirone 5 mg tablet 10 mg PO BID #120 tabs 09/08/22 furosemide 20 mg tablet (Lasix) 20 mg PO DAILY #20 tabs 09/08/22 lidocaine 5 % topical patch 1 patch topical DAILY #15 ea 09/08/22 oxycodone 5 mg tablet 10 mg PO Q8H PRN pain 1 week #30 tabs 09/08/22 Hospital Course Procedures 2-D Echocardiogram, EKG and - (MRI thoracic spine/CT lumbar and thoracic spine/CT abdomen pelvis/abdominal ultrasound/chest x-ray) Summary of Care Provided Minutes Spent on Discharge: 39 Hospital Course: Mr. Monteiro is a 72-year-old white male who presented to the emergency department on 09/06/2022 having numerous complaints. He finally decided come to the hospital secondary to a syncopal event he had on the day of admission. Patient reports that he had been having pain in his mid back for approximately 2 months prior to presentation. He denied any falls that precipitated it however he was cleaning his refrigerator and was having some trouble getting up. He complained of intermittent paresthesias in his left lower extremity and reported that he had syncopal episodes approximately 2-4 times prior to presentation. Given his back complaints CT of the spine was performed at the thoracic and lumbar levels. CT of the lumbar spine showed spondylolisthesis with spondylosis in the lumbar sacral junction and thoracic spine fine CT showed T11 and T12 compression fractures. His chest x-ray was unremarkable when compared to previous and the CT of his abdomen pelvis showed colonic diverticulosis with no obstruction and a cirrhotic contour to his liver. Given the findings of the liver an abdominal ultrasound was performed and pending at the time of discharge. With regards to his liver disease he will be referred to gastroenterology for further follow-up as there are no acute issues related to this. I suspect he likely has DELACRUZ. His vital signs were stable on presentation but he was noted to have an elevated INR at 6.1 no other significant abnormalities were noted. He did have occult blood in his urine at that time and at 1 point during his hospitalization he had an episode of gross blood in his urine however this resolved at the time of discharge. His UA was repeated and does show ongoing blood therefore a referral to Dr. Damon from urology was made for further investigation as an outpatient. His pain was managed with scheduled Tylenol, as needed opiates, a lidocaine patch and we did place a consult to pain management for consideration of kyphoplasty given his MRI showed an acute T11 thoracic compression fracture. Kyphoplasty was deferred at this time however we will encourage outpatient follow-up with pain management as I suspect the patient will have ongoing pain issues. Vitamin D level was assessed and found to be within normal limits. With regards to his syncopal episode he was found to be orthostatic positive that was quite dramatic with going from sitting to standing dropping his blood pressures into the 70s systolic. He was treated with IV fluids and repeat orthostatics were performed early on the morning of 09/08/2022. His repeat orthostatics at that time were negative and he had no more lightheadedness. He was monitored on telemetry for his hospitalization and no arrhythmias were noted. An echocardiogram was performed and showed an EF of 60% with normal LV function and size. He was seen by physical and Occupational Therapy. They did recommend ongoing therapy and the patient desired to go home with home health care and was quite adamant that he was not going to a skilled facility. Home health care was arranged for the patient prior to discharge. And he was discharged home in stable condition on 09/08/2022. His INR at discharge was 4.7 and trending down from admission. His warfarin was held and he was to have a follow-up INR done by home health care on 09/10/2022. The patient follows at the [place] for his Coumadin dosing. His lisinopril was held on discharge and he is to hold this until he follows up with his primary care physician and have his blood pressure reassessed with his orthostasis and syncopal episodes upon presentation. He was maintained on his metoprolol and he takes as needed Lasix for any swelling. We continued both of these medications. With regards to his pain he was maintained on his above regimen of Tylenol, as needed opiates, and a lidocaine patch and we have instructed him to follow-up with pain management. As noted above the CT of his abdomen pelvis showed possible liver cirrhosis of which I highly suspect DELACRUZ would be the etiology if present. He had no acute factors which needed to be addressed in the hospital and was referred to gastroenterology at discharge. As noted above he also had some microscopic hematuria and one episode of gross hematuria. The gross hematuria had resolved prior to discharge however a repeat UA does reveal ongoing blood in his urine. He does have a history of tobacco abuse remotely and would be higher risk for renal and bladder cancers. Referral to outpatient urology was made at discharge. Discharge diagnoses: Syncope-resolved Orthostatic hypotension Acute T11 thoracic compression fracture Chronic T12 thoracic compression fracture Microscopic hematuria/gross hematuria-ongoing microscopic hematuria discharged with resolution of gross hematuria and stable hemoglobin--> urology referral made Possible liver cirrhosis-suspect DELACRUZ-GI referral made Lactic acidosis-resolved Supratherapeutic INR Debility Persistent atrial fibrillation COPD Hyperlipidemia BPH Chronic venous stasis Hypertension History of tobacco abuse Obesity Weight / BMI Weight Weight: 135.5 kg Body Mass Index (BMI) 38.3 ABG / Lab / Microbiology Data Result Diagrams: 09/08/22 04:53 09/08/22 04:53 Laboratory: Laboratory Results - last 24 hr 09/07/22 05:33: Magnesium 1.9 09/08/22 04:53: PT 44.4 H, INR 4.7 H* 09/08/22 04:53: WBC 7.4, RBC 5.16, Hgb 15.0, Hct 47.8, MCV 92.6, MCH 29.1, MCHC 31.4 L, RDW Std Deviation 51.0 H, RDW Coeff of Medardo 14.8 H, Plt Count 245, MPV 10.9, Immature Gran % (Auto) 0.500, Neut % (Auto) 65.1, Lymph % (Auto) 16.9 L, [place] % (Auto) 13.3 H, Eos % (Auto) 3.1, Baso % (Auto) 1.1 H, Absolute Neuts (auto) 4.8, Absolute Lymphs (auto) 1.26, Nucleated RBC % 0 09/08/22 04:53: Sodium 138, Potassium 4.2, Chloride 107, Carbon Dioxide 26.0, Anion Gap 5, BUN 23 H, Creatinine 0.90, Estim Creat Clear Calc 84.99, Est GFR (MDRD) Af Amer 106, Est GFR (MDRD) Non-Af 88, BUN/Creatinine Ratio 25.6 H, Glucose 105, Calcium 9.6, Phosphorus 3.4 09/08/22 08:40: Urine Color Yellow, Urine Clarity Sl Cloudy, Urine pH 5.0, Ur Specific [place] 1.015, Urine Protein 15 H, Urine Glucose (UA) Normal, Urine Ketones Negative, Urine Occult Blood 250 H, Urine Nitrite Negative, Urine Bilirubin Negative, Urine Urobilinogen Normal, Ur Leukocyte Esterase 25 H, Urine RBC 25-50 SEEN, Urine WBC 0-5 SEEN, Ur Squamous Epith Cells 0-5 SEEN, Urine Bacteria RARE, Urine Mucus RARE Radiography Diagnostic Testing: Radiology Impression Thoracic Spine MRI 09/07/22 12:00 IMPRESSION: 1. Acute compression fracture of the T11 vertebral body 2. Mild to moderate central canal stenosis at T11-T12 and T7-T8 3. Chronic compression deformity of the T12 vertebral body 4. Multilevel degenerative changes of the thoracic spine. Electronically Signed: Homero Nicholson MD at 13:18 EDT Reading Location ID and State: [facility] / [place] , Service support , D/C Instructions Discharge Diet: Low fat / Low cholesterol and 4000 mg Sodium Diet Discharge Activity: Return to Normal Activity Meaningful Use Info Meaningful Use Diagnoses (Choose all that apply): None applicable Discharge Plan Admission Admit Date/Time: 09/06/22 22:08 Primary Reason for Your Visit: Syncope/back pain Attending Provider: Angela Welch Primary Care Provider: [facility] Consulting Providers: Aj Randolph ; Angel Musa Instructions Additional Instructions / Restrictions: 1. You will need a follow-up INR on 09/10/2022--> INR at discharge was still elevated at 4.7 however improving 2. Please follow-up with the below specialists or specialists at the [facility] referral as soon as possible Discharge Orders/Prescriptions Prescriptions: New acetaminophen 500 mg Tablet 1,000 mg PO Q8 Qty: 0 0RF Rx Instructions: Do not exceed 1000 mg 3 times a day buspirone 5 mg Tablet 10 mg PO BID Qty: 120 0RF lidocaine 5 % Adhesive Patch,Medicated 1 patch topical DAILY Qty: 15 0RF Protocol: *Topical Application Instructions APPLICATION INSTRUCTIONS: To the painful area and back oxycodone 5 mg Tablet 10 mg PO Q8H PRN (Reason: pain) 7 Days Qty: 30 0RF Continued simvastatin 10 mg Tablet 10 mg PO QHS tramadol 50 mg Tablet 50 mg PO BID PRN (Reason: Pain) terazosin 2 mg Capsule 2 mg PO QHS metoprolol tartrate 25 mg Tablet 25 mg PO BID olodaterol 2.5 mcg/actuation Mist 2 inh INHALATION DAILY mometasone 200 mcg/actuation Hfa Aerosol Inhaler 1 puff INHALATION BID furosemide [Lasix] 20 mg Tablet 20 mg PO DAILY Qty: 20 0RF Rx Instructions: Take as needed for lower extremity swelling Held lisinopril 10 mg Tablet 10 mg PO QHS Hold Instructions: Until follow-up with outpatient primary care physician to reassess blood pressure warfarin 5 mg Tablet 5 mg PO DAILY Hold Instructions: Until instructed to reinitiate after follow-up INR Referrals / Follow Up: Isidoro Baxter DO [Med Staff - Active Staff] - Within 1 Month (Possible liver cirrhosis) [place] [Primary Care Provider] - Within 1 Week Tulio Damon MD [Med Staff - Active Staff] - Within 2 Weeks (Please call and make an appointment for blood in urine with stable hemoglobin while in hospital) Angel Musa MD [Med Staff - Active Staff] - Within 1 Week (Back pain) Disposition Disposition (needs filled in before D/C Order can be placed): Home Health Service Charges/Coding Visit Charges Inpatient E&M: 62445 Disch Hosp
--- NOTE | 2022-09-08 13:06 | CASEMGMT ---
Addendum entered by Shilpa Dutta 09/08/22 13:53: Call back from Paulina at [facility] and she is updated on [facility] and states Dr. Paris will sign and states Dr. Paris is agreeable to INR on 09/10/22 per hospitalist recommendation and results will go to Dr. Paris. Che at [facility] updated, voices understanding. Mike VALERIO CM Addendum entered by Shilpa Dutta 09/08/22 13:29: Per Che at [facility], they can accept pt with SOC 09/09/22. Che is aware that pt will need INR drawn on 09/10/22. Pt is updated on all, voices understanding. Pt voices no further questions/concerns/needs. Mike VALERIO CM Original Note: This RN CM received message from Paulina, nurse for Dr. Paris, and she states to [facility] and that Dr. Paris will sign for [facility] [place] [facility] [place] [phone]. Call to Che at [facility] with referral for PT/OT, voices understanding. Che updated on Paulina's contact info and [facility], voices understanding. CM to follow for acceptance. Mike VALERIO CM
--- NOTE | 2022-09-12 09:14 | CASEMGMT ---
[facility] is requesting INR results from visit and these were faxed at this time. Mike VALERIO CM
== END 2022-09-08 15:58 | disposition home health service (06) | DRG 543 ==
LOC: ED 17:35 → MS3 22:21 → PCU 22:38
PROVIDERS: Emergency Provider Emergency Medicine; Visit Provider Internal Medicine
DX: M48.54XA Collapsed vertebra, not elsewhere classified, thoracic region, initial encounter for fracture (principal); I48.20 Chronic atrial fibrillation, unspecified; I11.0 Hypertensive heart disease with heart failure; I50.9 Heart failure, unspecified; K75.81 Nonalcoholic steatohepatitis (NASH); E66.01 Morbid (severe) obesity due to excess calories; J44.9 Chronic obstructive pulmonary disease, unspecified; I95.1 Orthostatic hypotension; E78.5 Hyperlipidemia, unspecified; M43.17 Spondylolisthesis, lumbosacral region; R53.81 Other malaise; G89.29 Other chronic pain; R74.02 Elevation of levels of lactic acid dehydrogenase [LDH]; R79.1 Abnormal coagulation profile; R31.0 Gross hematuria; N40.0 Benign prostatic hyperplasia without lower urinary tract symptoms; R31.29 Other microscopic hematuria; Z68.38 Body mass index [BMI] 38.0-38.9, adult; Z87.891 Personal history of nicotine dependence
CPT/HCPCS: 36415; 71045; 72128; 72131; 72146; 74176; 76705; 80048; 80076; 81001; 82306; 83605; 83690; 83735; 83880; 84100; 84484; 85025; 85610; 93005; 93306; 94640; 97162; 97166; 97802; 99285; J7030; Q9957; A4216; C8929

== ENCOUNTER → 2022-12-08 | Outpatient (CLI) | payer MEDICARE, SELFPAY ==
[2022-12-08 18:46] LABS: Amphetamine Urine VISTA NEGATIVE (<1000 ng/mL); Barbiturate Urine VISTA NEGATIVE (< 200 ng/mL); Benzodiazepine Urine VISTA NEGATIVE (< 200 ng/mL); Cocaine Urine VISTA NEGATIVE (< 300 ng/mL); Ecstacy Urine VISTA NEGATIVE (< 500 ng/mL); Methadone Urine VISTA NEGATIVE (< 300 ng/mL); PCP Urine VISTA NEGATIVE (< 25 ng/mL); THC Urine VISTA NEGATIVE (< 50 ng/mL); Vista UDS pH Range 4
== END | disposition home or self-care (01) ==
PROVIDERS: Visit Provider Anesthesiology Pain Medicine
DX: F11.20 Opioid dependence, uncomplicated (principal)
CPT/HCPCS: 80307

== ENCOUNTER → 2023-11-15 | Outpatient (CLI) | payer MEDICARE, SELFPAY ==
--- OUTSIDE RECORDS SUMMARY | 2023-11-15 16:59 | XMS RPT_ITS | CCD ---
Author Name Unknown Address [address] [place] [address] [address] [place] [address] Organization [facility] [place] Care Team Providers Care Independent Producer Name Role Phone Matilde Ross (Retired) Primary Care Provider [phone] Administration, 's Primary Care Provider Unavailable Encounters Encounter Date Encounter Type Care Provider Facility Start: 01-20-2023 ambulatory Alyssa Almodovar MA [facility] Payers Date Payer Category Payer Unknown [employer] PPO [id number] 1999-Present [phone] [address] [place] [address] PPO [id number] Social History Date Type Detail Facility Tobacco smoking stat [facility] Tobacco smoking consumption unknown [facility] Start: 1950 Sex Assigned At Not on file [facility] Clinical Note 01-20-2023 Note Date & Type Note Facility 01-20-2023 Note Patient Outreach (NE TNAV) CAYETANOANDER Baez ([id number]) 1950 M Date Time Provider Department 01/20/23 ALYSSA REID During your visit today, we recorded the following information about you: Alyssa Almodovar MA 01/20/2023 10:24 AM Signed POPULATION HEALTH NAVIGATION OUTREACH Action/FYI Confirm PCP Spoke with patient - [place] PCP updated Patient Identified by Name and : YES, via phone Outreach Outcome/Action Spoke to patient / parent / legal guardian: No action required (information or reminder only) PCP field updated Did you use a PCP flex slot to schedule this appointment? N/A Reason for Outreach Care Gap or Scheduling/Wellness visits Payer: Payor: ERIC / Plan: BLUE ACCESS PPO / Product Type: PPO / Care Gap Reviewed:: Annual Wellness visit Reminder: Reminder note to check Health Maintenance for items below Health Maintenance items due: There are no preventive care reminders to display for this patient. Navigation Signature: Alyssa Almodovar MA January 20, 2023 8:08 AM Allergies As of Date: 01/20/2023 (Not on File) Date Reviewed: Never Reviewed Reason for Visit: Population Health Navigation Outreach [3910] Cmt: [employer] Care Gaps Problem List As Of Date: 01/20/2023 (None) Encounter Status:Closed by ALYSSA REID on 01/20/23 [facility] Progress note 01-20-2023 Note Date & Type Note Facility 01-20-2023 Note HNO ID: [id number] Author: Alyssa Almodovar MA Service: ? Author Type: Housekeeping Attendant Type: Progress Notes Filed: 01/20/2023 10:24 AM Note Text: POPULATION HEALTH NAVIGATION OUTREACH Action/FYI Confirm PCP Spoke with patient - [place] PCP updated Patient Identified by Name and : YES, via phone Outreach Outcome/Action Spoke to patient / parent / legal guardian: No action required (information or reminder only) PCP field updated Did you use a PCP flex slot to schedule this appointment? N/A Reason for Outreach Care Gap or Scheduling/Wellness visits Payer: Payor: ERIC / Plan: BLUE ACCESS PPO / Product Type: PPO / Care Gap Reviewed:: Annual Wellness visit Reminder: Reminder note to check Health Maintenance for items below Health Maintenance items due: There are no preventive care reminders to display for this patient. Navigation Signature: Alyssa Almodovar MA January 20, 2023 8:08 AM [facility] History of Present illness Narrative 01-20-2023 Alyssa Almodovar MA - 01/20/2023 8:08 AM EST Note Date & Type Note Facility 01-20-2023 History of Presen t illness Narrative POPULATION HEALTH NAVIGATION OUTREACH Action/FYI Confirm PCP [facility] with [facility] - [facility] updated Patient Identified by Name and : YES, via phone Outreach Outcome/Action Spoke to patient / parent / legal guardian: No action required (information or reminder only) PCP field updated Did you use a PCP flex slot to schedule this appointment? N/A Reason for Outreach Care Gap or Scheduling/Wellness visits Payer: Payor: ERIC / Plan: [employer] PPO / Product Type: PPO / Care Gap Reviewed:: Annual Wellness visit Reminder: Reminder note to check Health Maintenance for items below Health Maintenance items due: There are no preventive care reminders to display for this patient. Navigation Signature: Alyssa Almodovar MA January 20, 2023 8:08 AM documented in this encounter [facility] Clinical Note 06-23-2022 Note Date & Type Note Facility 06-23-2022 Note Patient Outreach (NE TNAV) ANDER DIAZ ([id number]) 1950 M Date Time Provider Department 06/23/22 LUANA BUENO During your visit today, we recorded the following information about you: Luana Bueno 06/23/2022 8:42 AM Addendum POPULATION HEALTH NAVIGATION OUTREACH Action/FYI Cedrick faulkner Patient due for the following: Annual exam Establish care Unable to contact patient by phone, Number not in service Letter printed to [facility], to be mailed by Navigator on site Mailed letter 06/24/2022 JESSE Pt identified by name and : NO Outreach Outcome/Action Unable to reach patient: Phone number not valid / voicemail full Letter mailed Did you use a PCP flex slot to schedule this appointment? N/A Reason for Outreach Care Gap or Scheduling/Wellness visits Payer: Payor: DAPH[employer]EM / Plan: BLUE ACCESS PPO / Product Type: PPO / Care Gap Reviewed:: Annual Wellness visit Reminder: Reminder note to check Health Maintenance for items below Health Maintenance items due: There are no preventive care reminders to display for this patient. Message Sent to Practice: No Navigation Signature: Luana Bueno June 23, 2022 8:39 AM Allergies As of Date: 06/23/2022 (Not on File) Date Reviewed: Never Reviewed Reason for Visit: Population Health Navigation Outreach [3910] Cmt: [employer] Medicare Problem List As Of Date: 06/23/2022 (None) Letter Text Encounter Status:Closed by LUANA BUENO on 06/23/22 [facility] Progress note 06-23-2022 Note Date & Type Note Facility 06-23-2022 Note HNO ID: [id number] Author: Luana Beuno Service: ? Author Type: ? Type: Progress Notes Filed: 06/24/2022 3:41 PM Note Text: POPULATION HEALTH NAVIGATION OUTREACH Action/FYI [employer] caregaps Patient due for the following: Annual exam Establish care Unable to contact patient by phone, Number not in service Letter printed to [facility], to be mailed by Navigator on site Mailed letter 06/24/2022 JESSE Pt identified by name and : NO Outreach Outcome/Action Unable to reach patient: Phone number not valid / voicemail full Letter mailed Did you use a PCP flex slot to schedule this appointment? N/A Reason for Outreach Care Gap or Scheduling/Wellness visits Payer: Payor: DAPHNEEM / Plan: BLUE ACCESS PPO / Product Type: PPO / Care Gap Reviewed:: Annual Wellness visit Reminder: Reminder note to check Health Maintenance for items below Health Maintenance items due: There are no preventive care reminders to display for this patient. Message Sent to Practice: No Navigation Signature: Luana Bueno June 23, 2022 8:39 AM [facility] History of Present illness Narrative 06-23-2022 Luana Bueno - 06/23/2022 8:39 AM EDT Note Date & Type Note Facility 06-23-2022 History of Presen t illness Narrative POPULATION HEALTH NAVIGATION OUTREACH Action/ Cedrick faulkner Patient due for the following: Annual exam Establish care Unable to contact patient by phone, Number not in service Letter printed to [facility], to be mailed by Navigator on site Pt identified by name and : NO Outreach Outcome/Action Unable to reach patient: Phone number not valid / voicemail full Letter mailed Did you use a PCP flex slot to schedule this appointment? N/A Reason for Outreach Care Gap or Scheduling/Wellness visits Payer: Payor: ERIC / Plan: [employer] PPO / Product Type: PPO / Care Gap Reviewed:: Annual Wellness visit Reminder: Reminder note to check Health Maintenance for items below Health Maintenance items due: There are no preventive care reminders to display for this patient. Message Sent to Practice: No Navigation Signature: Luana Bueno June 23, 2022 8:39 AM documented in this encounter [facility] Summary Purpose Family History No Family History Records Found Advance Directives No Advanced Directives Records Found Additional Source Comments Source Comments (unrecognize d section and content) In the event this informatio n is protected by the Federal Confidentiality of Alcohol and Drug Abuse Patient Records regulations: The Federal rules restrict any use of the information to criminally investigate or prosecute any alcohol or drug abuse patient.[facility] the event this information is protected by the Federal Confidentiality of Alcohol and Drug Abuse Patient Records regulations: The Federal rules restrict any use of the information to criminally investigate or prosecute any alcohol or drug abuse patient.[facility] Reason for Visit (unrecogniz ed section and content) Reason Onset Date Comments Population Health Navigation Outreach 01/20/2023 [employer] Care Gaps Care Teams (unrecognized sec tion and content) Independent Producer Relationship Specialty Start Date End Date Administration, [place]'s PCP - General 01/20/23 (unrecognized sect ion and content) No Status Records Found INFORMATION SOURCE (unrecogn ized section and content) FOR RECORDS PERTAINING TO PATIENTS WHO ARE OR HAVE BEEN ENROLLED IN A CHEMICAL DEPENDENCY/SUBSTANCEABUSE PROGRAM, SOME INFORMATION MAY BE OMITTED. This clinical summary was aggregated from multiple sources. Caution should be exercised in using it in the provision of clinical care. This summary normalizes information from multiple sources, and as a consequence, information in this document may materially change the coding, format and clinical context of patient data. In addition, data may be omitted in some cases. CLINICAL DECISIONS SHOULD BE BASED ON THE PRIMARY CLINICAL RECORDS. [facility] provides no warranty or guarantee of the accuracy or completeness of information in this document.
[2023-11-15 18:15] LABS: Amphetamine Urine VISTA NEGATIVE (<1000 ng/mL); Barbiturate Urine VISTA NEGATIVE (< 200 ng/mL); Benzodiazepine Urine VISTA NEGATIVE (< 200 ng/mL); Cocaine Urine VISTA NEGATIVE (< 300 ng/mL); Ecstacy Urine VISTA NEGATIVE (< 500 ng/mL); Methadone Urine VISTA NEGATIVE (< 300 ng/mL); PCP Urine VISTA NEGATIVE (< 25 ng/mL); THC Urine VISTA NEGATIVE (< 50 ng/mL); Vista UDS pH Range 7
== END | disposition home or self-care (01) ==
LOC: LAB 16:26
PROVIDERS: Referring Provider Anesthesiology Pain Medicine; Visit Provider Anesthesiology Pain Medicine
DX: F11.20 Opioid dependence, uncomplicated (principal)
CPT/HCPCS: 80307

== ENCOUNTER 2024-02-07 17:01 | Inpatient (IN) | payer OTHER, SELFPAY ==
[2024-02-07] VITALS (17 sets, daily range): BP systolic 107–143; BP diastolic 68–101; PULSE 73–93; RESP 17–29; TEMP 36.2–36.6; O2SAT 90–97; BMI 43.2; BMI 43.7
--- NOTE | 2024-02-07 17:36 | EKG12_ITS ---
Test Reason : GENERAL Blood Pressure : / mmHG Vent. Rate : 084 BPM Atrial Rate : 000 BPM P-R Int : 000 ms QRS Dur : 112 ms QT Int : 376 ms P-R-T Axes : 000 019 108 degrees QTc Int : 444 ms Atrial fibrillation Nonspecific ST and T wave abnormality Abnormal ECG Confirmed by MARK GRIMALDO, JULIAN ([id number]), assistant editor EAMON RUBIN ([id number]) on 02/08/2024 9:16:14 AM Referred By: Confirmed By:JULIAN FLORES MD
[2024-02-07 17:54] LABS: Absolute Lymphocyte Count 1.04 X10^3/uL (0.83-4.51); Absolute Neutrophil Count 3.6 X10^3/uL (2.0-7.7); Basophil% 1.8 % (0-1); Eosinophil# 0.19 X10^3/uL; Eosinophils% 3.4 % (0-5); Hematocrit 36.9 % (40-54); Hemoglobin 11.4 g/dL (13.0-16.5); Lymphocyte # 1.04 X10^3/ul (0.83-4.51); Lymphocyte % 18.5 % (19-41); Mean Corp Hgb Conc 30.9 g/dL (32-36); Mean Corpuscular Hgb 27.9 pg (27.0-32.0); Mean Corpuscular Volume 90.4 fL (80-94); Mean Platelet Vol. 10.9 fl (6.2-12.0); Monocyte# 0.66 X10^3/uL; Monocyte% 11.7 % (0-10); NRBC Flagged by Analyzer 0 % (0-5); Neutrophil # 3.62 X10^3/uL (2.7-7.7); Neutrophil % 64.4 % (47-70); Platelet Count 175 K/mm3 (150-450); RBC Distribution Width CV 16.9 % (11.6-14.6); RBC Distribution Width SD 55.8 fl (35.1-43.9); Red Blood Count 4.08 M/mm3 (4.6-6.2); White Blood Count 5.6 K/mm3 (4.4-11.0)
[2024-02-07] MEDS: Ondansetron 4 MG/2 ML Vial IV (17:59)
[2024-02-07] MEDS: Morphine 4 MG/ML Syringe IV (17:59)
[2024-02-07 18:05] LABS: International Normalized Ratio 2.6; Prothrombin Time (Protime)PT. 27.8 SECONDS (11.7-14.9)
[2024-02-07 18:09] LABS: Anion Gap 4 (5-15); BUN 15 mg/dL (7-18); BUN/Creat Ratio 17.6 RATIO (10-20); Calcium,Total 8.9 mg/dL (8.5-10.1); Chloride 105 mmol/L (98-107); Creatinine, Serum 0.85 mg/dL (0.70-1.30); EST Glomerular Filtration Rate 93 mL/min (>60); Est Glom Filt Rate - Afr Amer 113 mL/min (>60); Estimated Creatinine Clearance 112.59 ml/min; Glucose 98 mg/dL (74-106); Potassium 4.3 mmol/L (3.5-5.1); Sodium Level 138 mmol/L (136-145)
--- NOTE | 2024-02-07 18:10 | EX.ED.DYSGE1 ---
HPI <Evie Barahona RN - Last Filed: 02/07/24 19:37> History of Present Illness Chief Complaint: Complaint Informant: patient Onset/Context/Timing Onset: Weeks (1) Context: Gradual Onset Timing: Continuous Current Severity: Moderate Maximum Severity: Moderate Narrative Narrative: Patient is a 73-year-old male with past medical history of A-fib, COPD, CHF and hypertension who presented today for scrotal edema and difficulty with urinating. Patient reports over the past week his scrotum has been edematous to the length that he is unable to fully urinate. He reports he has to urinate into a towel. Reports decreased amount of urine and color of urine is dark. Patient reports he quit taking his diuretic approximately 6 months ago due to frequent urination. He reports he did take a dose last and Monday without relief of symptoms. He also has bilateral lower extremity wounds that have been present for years. Patient reports dressings are to be changed daily. However, he has not been unable to change the left lower leg dressing for approximately 5 days and unable to change the right lower leg dressing for the past 2 days. He reports he has increased shortness of breath over the past week. He denies any recent hospitalizations or recent travel. Prior similar symptoms: No Recent Illness/Hospitalization: No PFSH <Evie Barahona RN - Last Filed: 02/07/24 19:37> PFSH Medical History Afib Congestive heart failure (CHF) COPD (chronic obstructive pulmonary disease) Former smoker Hypertension Home Medications lisinopril 10 mg tablet 10 mg PO QHS blood pressure 09/06/22 [History Last Taken Unknown] metoprolol tartrate 25 mg tablet 25 mg PO BID blood pressure 09/06/22 [History Last Taken Unknown] mometasone 200 mcg/actuation HFA aerosol inhaler 1 puff inhalation BID breathing 09/06/22 [History Last Taken Unknown] olodaterol 2.5 mcg/actuation mist for inhalation 2 inh inhalation DAILY breathing 09/06/22 [History Last Taken Unknown] simvastatin 10 mg tablet 10 mg PO QHS cholesterol 09/06/22 [History Last Taken Unknown] terazosin 2 mg capsule 2 mg PO QHS prostate 09/06/22 [History Last Taken Unknown] warfarin 5 mg tablet 5 mg PO DAILY blood thinner 09/06/22 [History Last Taken Unknown] acetaminophen 500 mg tablet 1,000 mg (2 x 500 mg) PO Q8 #0 tabs 09/08/22 [Rx Last Taken Unknown] buspirone 5 mg tablet 10 mg (2 x 5 mg) PO BID #120 tabs 09/08/22 [Rx Last Taken Unknown] furosemide 20 mg tablet (Lasix) 20 mg PO DAILY #20 tabs 09/08/22 [Rx Last Taken Unknown] lidocaine 5 % topical patch 1 patch topical DAILY #15 ea 09/08/22 [Rx Last Taken Unknown] oxycodone 10 mg tablet 10 mg PO Q8H PRN pain 1 week #21 tabs 09/08/22 [Rx Last Taken Unknown] oxycodone 5 mg tablet 10 mg (2 x 5 mg) PO Q8H PRN pain 1 week #30 tabs 09/08/22 [Rx Last Taken Unknown] Allergy/AdvReac Type Severity Reaction Status Date / Time pramoxine Allergy Rash Verified 02/07/24 17:06 Social History Smoking Status: Former smoker ROS <Evie Barahona RN - Last Filed: 02/07/24 19:37> ROS ED Constitutional Constitutional ED: Denies chills, fever(s) or sweats Eyes Eyes: Denies change in vision ENT ENT ED: Denies ear pain, rhinorrhea or sore throat Cardiovascular Cardiovascular: Reports orthopnea; Denies chest pain, palpitations, paroxysmal nocturnal dyspnea or racing heartbeat Respiratory/Chest Respiratory/Chest: Reports dyspnea, dyspnea on exertion and orthopnea; Denies cough or paroxysmal nocturnal dyspnea Gastrointestinal Gastrointestinal: Denies abdominal pain, constipation, diarrhea, melena, nausea or vomiting Genitourinary Genitourinary ED: Reports dysuria and other Details: Dark urine began decreased urination ; Denies hematuria or urinary frequency Musculoskeletal Musculoskeletal: Reports arthralgias and myalgias; Denies back pain or neck pain Integumentary Reports other Details: Bilateral lower extremity leg wounds. Neurologic Neurologic: Denies headache(s), paresthesias or weakness Psychiatric Psychiatric: Denies anxiety or depression Hematologic/Lymphatic Hematologic/Lymphatic: Reports systems reviewed and no addt'l complaints, except as documented EXAM <Evie Barahona RN - Last Filed: 02/07/24 19:37> Physical Exam Narrative Exam Narrative: Patient awake, alert, talkative, good historian. Const Vital Signs: 02/07/24 17:02 02/07/24 17:06 02/07/24 18:06 Temperature 97.3 F L 98 F 97.7 F L Temperature Source Temporal Temporal Temporal Pulse Rate 93 85 89 Respiratory Rate 18 20 H 23 H Blood Pressure 143/91 H 129/82 H 124/97 H Blood Pressure Mean 108 97 106 Pulse Ox 97 95 90 Oxygen Delivery Method Room Air Room Air Room Air 02/07/24 17:26 02/07/24 17:27 02/07/24 17:30 Temperature Temperature Source Pulse Rate 79 89 Respiratory Rate 20 H 21 H Blood Pressure 129/82 H 109/76 Blood Pressure Mean 93 83 Pulse Ox Oxygen Delivery Method 02/07/24 17:45 02/07/24 18:03 02/07/24 18:15 Temperature Temperature Source Pulse Rate 86 81 91 Respiratory Rate 21 H 24 H 22 H Blood Pressure Blood Pressure Mean Pulse Ox Oxygen Delivery Method 02/07/24 18:23 02/07/24 18:30 02/07/24 18:45 Temperature Temperature Source Pulse Rate 93 78 84 Respiratory Rate 29 H 21 H 21 H Blood Pressure 124/97 H 126/101 H Blood Pressure Mean 106 111 Pulse Ox Oxygen Delivery Method 02/07/24 19:00 Temperature Temperature Source Pulse Rate 78 Respiratory Rate 19 H Blood Pressure 134/68 H Blood Pressure Mean 85 Pulse Ox Oxygen Delivery Method Positive well nourished and well developed General Appearance ED: well developed HEENT Reports moist mucous membranes Eyes PERRL and EOMs intact bilaterally Neck no lymphadenopathy, supple and no JVD Chest Wall inspection of chest normal and palpation of chest normal Chest Narrative: Symmetrical chest rise Resp normal respiratory effort and clear to auscultation bilaterally Auscultation: Negative for rales, rhonchi or wheezes Cardio S1 normal heart sound and S2 normal heart sound Rate: other Other Details: Diastolic murmur noted. Patient in A-fib. History A-fib on warfarin. Rhythm: abnormal rhythm irregularly irregular GI non-tender and non-distended GI Narrative: Pannus with mild erythema with noted line of demarcation. No increased warmth. Auscultation: normoactive bowel sounds Palpation: soft; Negative for tender Narrative: Large edematous scrotum. No erythema or drainage noted. Extremity Extremity Narrative: Large amount none pitting edema to bilateral lower extremities. General Extremety ED: Yes edema General Extremity: edema Neuro oriented x3 Sensorium / Orientation: alert Motor Exam: strength 5/5 throughout Psych mental status grossly normal Skin no rashes or lesions noted Skin Narrative: Multiple small open areas to right mid lateral lower leg with scant amount of clear yellow drainage. Approximately 2.5 inches x 1 inch multilayer open area to left lateral lower leg. No drainage noted. No increased erythema noted to either extremity. General Skin Exam: Negative for elasticity normal <Dr. Noman Cloud MD - Last Filed: 02/07/24 18:44> Physical Exam Const Vital Signs: 02/07/24 17:02 02/07/24 17:06 02/07/24 18:06 Temperature 97.3 F L 98 F 97.7 F L Temperature Source Temporal Temporal Temporal Pulse Rate 93 85 89 Respiratory Rate 18 20 H 23 H Blood Pressure 143/91 H 129/82 H 124/97 H Blood Pressure Mean 108 97 106 Pulse Ox 97 95 90 Oxygen Delivery Method Room Air Room Air Room Air 02/07/24 17:26 02/07/24 17:27 02/07/24 17:30 Temperature Temperature Source Pulse Rate 79 89 Respiratory Rate 20 H 21 H Blood Pressure 129/82 H 109/76 Blood Pressure Mean 93 83 Pulse Ox Oxygen Delivery Method 02/07/24 17:45 02/07/24 18:03 02/07/24 18:15 Temperature Temperature Source Pulse Rate 86 81 91 Respiratory Rate 21 H 24 H 22 H Blood Pressure Blood Pressure Mean Pulse Ox Oxygen Delivery Method 02/07/24 18:23 02/07/24 18:30 02/07/24 18:45 Temperature Temperature Source Pulse Rate 93 78 84 Respiratory Rate 29 H 21 H 21 H Blood Pressure 124/97 H 126/101 H Blood Pressure Mean 106 111 Pulse Ox Oxygen Delivery Method 02/07/24 19:00 Temperature Temperature Source Pulse Rate 78 Respiratory Rate 19 H Blood Pressure 134/68 H Blood Pressure Mean 85 Pulse Ox Oxygen Delivery Method MDM <Evie Barahona RN - Last Filed: 02/07/24 19:37> MDM MDM Narrative Medical decision making narrative: Patient placed on playground monitor. IV line initiated. Labwork obtained to evaluate for leukocytosis, anemia, and electrolyte derangement. EKG obtained to evaluate for cardiac arrhythmia/ischemia. Urinalysis obtained to evaluate for infection/hematuria. Chest x-ray obtained to evaluate for acute lung pathology, cardiac size, or mediastinal abnormality. History & Record Review Discussion w/independent historian: Patient Lab Data Attestation: I reviewed the patient's lab results. Lab results narrative: CBC shows a white count 5.6. H&H 11.4 and 36. Previously his hemoglobin was around 15 4 to 6 months ago. Platelets 175. Patient is on Coumadin his INR is 2.6. Electrolytes show a gap of 4 normal BUN of 15 creatinine 0.5. Glucose 98. BNP is elevated 974. Patient placed on playground monitor. IV line initiated. Labwork obtained to evaluate for leukocytosis, anemia, and electrolyte derangement. EKG obtained to evaluate for cardiac arrhythmia/ischemia. Urinalysis obtained to evaluate for infection/hematuria. Chest x-ray obtained to evaluate for acute lung pathology, cardiac size, or mediastinal abnormality. Labs: Laboratory Results - last 24 hr 02/07/24 02/07/24 17:38 18:20 WBC 5.6 RBC 4.08 L Hgb 11.4 L Hct 36.9 L MCV 90.4 MCH 27.9 MCHC 30.9 L RDW Std Deviation 55.8 H RDW Coeff of Medardo 16.9 H Plt Count 175 MPV 10.9 Immature Gran % (Auto) 0.200 Neut % (Auto) 64.4 Lymph % (Auto) 18.5 L Jay % (Auto) 11.7 H Eos % (Auto) 3.4 Baso % (Auto) 1.8 H Absolute Neuts (auto) 3.6 Absolute Lymphs (auto) 1.04 Nucleated RBC % 0 PT 27.8 H INR 2.6 Sodium 138 Potassium 4.3 Chloride 105 Carbon Dioxide 29.0 Anion Gap 4 L BUN 15 Creatinine 0.85 Estim Creat Clear Calc 112.59 Est GFR (MDRD) Af Amer 113 Est GFR (MDRD) Non-Af 93 BUN/Creatinine Ratio 17.6 Glucose 98 Calcium 8.9 B-Natriuretic Peptide 974.9 H Urine Color Stephanie Urine Clarity Clear Urine pH 5.0 Ur Specific Nunda 1.030 Urine Protein 15 H Urine Glucose (UA) Normal Urine Ketones 5 H Urine Occult Blood 25 H Urine Nitrite Negative Urine Bilirubin 3 H Urine Urobilinogen 8 H Ur Leukocyte Esterase 25 H Urine RBC 0 SEEN Urine WBC 0 SEEN Ur Squamous Epith Cells 0-5 SEEN Calcium Oxalate Crystal 2+ Urine Bacteria 0 SEEN Hyaline Casts 0-5 SEEN Urine Mucus 0 SEEN EKG Initial EKG: Attestation: I personally reviewed and interpreted this EKG as follows: Interpretation: Atrial Fibrillation Prior EKG tracings: not available for review Differential Diagnosis Chest pain/SOB: CHF Abdominal Pain: UTI Differential Diagnosis: Cellulitis Management Discussion w/another healthcare provider: Other (Dr. Cloud, ED provider) Treatment and Re-Evaluation :: Lab work and imaging reviewed. Patient with normal white blood cell count of 5.6 and neutrophils 64.4. Hemoglobin 11.4. Last hemoglobin available for review was 08/2022 in which it was 15. Stool is positive for occult blood. PT is 27.8, INR is 2.6. Patient on warfarin for atrial fibrillation. Chemistry is unremarkable. BNP is elevated at 974.9. Lima catheter placed which returned clear yellow urine. Specimen sent to lab which was negative for UTI. Patient discussed with hospitalist and to be admitted for diuresis. Upon reevaluation, patient awake and alert in bed. Plan of care discussed with patient. Patient agreeable. <Dr. Noman Cloud MD - Last Filed: 02/07/24 18:44> [facility] Narrative Medical decision making narrative: I have personally performed a face to face assessment of the patient and have reviewed the MALDONADO Note. I performed a substantive portion of the visit including all aspects of the following. My caal findings include: History is [73-year-old male slated for a week to 10 days he has had increased scrotal swelling to the point now that he cannot find his penis and is having to urinate and Tylenol. Denies any significant pain. No fever. No significant redness. Has never had this before. He does have a history of congestive heart failure with peripheral edema.] Exam is [73-year-old male vital signs stable afebrile. Pulse ox 97% on room air no signs hypoxia. H EENT exam unremarkable. Neck nontender. Lungs clear to auscultation bilaterally. Heart A-fib rate about 80. Chest wall nontender. Abdomen soft nontender. Edematous. Is a very large swollen scrotum consistent with edema. It is not hot it is not red and albicans cellulitic or infected. I do not think it is a groin yeast infection. He is moving all 4 extremities. 1+ pitting edema both lower extremities. He does have wounds on his lower extremities. Neurologically is awake. He is alert. He is answering questions following commands. Cayetano Monteiro] Medical Decision Making [73-year-old male history of congestive heart failure took antibiotic for least 6 months ago. Is having increasing swelling of his scrotum and extremities. Lima catheter replaced. Labs and chest x-ray will be obtained.] Other additions or changes: [None] History & Record Review Discussion w/independent historian: Patient and Family Lab Data Attestation: I reviewed the patient's lab results. Lab results narrative: CBC shows a white count 5.6. H&H 11.4 and 36. Previously his hemoglobin was around 15 4 to 6 months ago. Platelets 175. Patient is on Coumadin his INR is 2.6. Electrolytes show a gap of 4 normal BUN of 15 creatinine 0.5. Glucose 98. BNP is elevated 974. Labs: Laboratory Results - last 24 hr 02/07/24 02/07/24 17:38 18:20 WBC 5.6 RBC 4.08 L Hgb 11.4 L Hct 36.9 L MCV 90.4 MCH 27.9 MCHC 30.9 L RDW Std Deviation 55.8 H RDW Coeff of Medardo 16.9 H Plt Count 175 MPV 10.9 Immature Gran % (Auto) 0.200 Neut % (Auto) 64.4 Lymph % (Auto) 18.5 L Jay % (Auto) 11.7 H Eos % (Auto) 3.4 Baso % (Auto) 1.8 H Absolute Neuts (auto) 3.6 Absolute Lymphs (auto) 1.04 Nucleated RBC % 0 PT 27.8 H INR 2.6 Sodium 138 Potassium 4.3 Chloride 105 Carbon Dioxide 29.0 Anion Gap 4 L BUN 15 Creatinine 0.85 Estim Creat Clear Calc 112.59 Est GFR (MDRD) Af Amer 113 Est GFR (MDRD) Non-Af 93 BUN/Creatinine Ratio 17.6 Glucose 98 Calcium 8.9 B-Natriuretic Peptide 974.9 H Urine Color Stephanie Urine Clarity Clear Urine pH 5.0 Ur Specific Nunda 1.030 Urine Protein 15 H Urine Glucose (UA) Normal Urine Ketones 5 H Urine Occult Blood 25 H Urine Nitrite Negative Urine Bilirubin 3 H Urine Urobilinogen 8 H Ur Leukocyte Esterase 25 H Urine RBC 0 SEEN Urine WBC 0 SEEN Ur Squamous Epith Cells 0-5 SEEN Calcium Oxalate Crystal 2+ Urine Bacteria 0 SEEN Hyaline Casts 0-5 SEEN Urine Mucus 0 SEEN Radiography Chest X-Ray - ED: 1 View, Read by ED Physician, Mediastinum, Bony Structures and Chronic Changes Diagnostic Testing: Chest x-ray, portable, single view interpreted by myself shows normal cardiac silhouette. Pulmonary edema bilaterally. Left pleural effusion. Rhythm Strip Rhythm Strip: A-fib Rate: 84 Ectopy: None Discharge Plan Dx/Rx/DC Orders Clinical Impression: Medical non-compliance, Congestive heart failure, Scrotal edema, Anemia, Chronic anticoagulation, History of atrial fibrillation, Stool guaiac positive Disposition Disposition: Acute Care Hospital [facility] [place] [facility]
[2024-02-07 18:13] LABS: BNP,B-Type NATRIURETIC PEPTIDE 974.9 pg/mL (0-100)
[2024-02-07] MEDS: Lidocaine Jelly 2% 20 ML Syringe (URO-JET) 1 APPLIC TOPICAL (18:21)
--- NOTE | 2024-02-07 18:25 | RAD_ITS ---
EXAM: XR CHEST, 1 VIEW CLINICAL INDICATION: Shortness of breath TECHNIQUE: Frontal view of the chest. COMPARISON: 09/06/2022 FINDINGS: LUNGS AND PLEURAL SPACES: Mild vascular congestion present. HEART: Unremarkable. Cardiac silhouette not enlarged. MEDIASTINUM: Central airways and mediastinal contour are unremarkable. BONES/JOINTS: There is a small left-sided effusion with left basilar airspace disease. No acute fracture. SOFT TISSUES: Unremarkable. RAD/Chest 1 View (Portable) IMPRESSION: Vascular congestion with a small left-sided effusion and left basilar atelectasis. Electronically Signed: Giorgio Cummings MD at 20:13 EDT ,
[2024-02-07 18:31] LABS: Red Blood Cells-Urine 0 SEEN /hpf (0-5); White Blood Cells 0 SEEN /hpf (0-5)
[2024-02-07 18:32] LABS: Bacteria 0 SEEN /hpf (None Seen); Color, Urine Amber (Yellow); Glucose, Dipstick Normal (Normal); Ketone-Dipstick 5 mg/dl (Negative); Leukocyte Esterase-Dipstick 25 /ul (Negative); Mucous, Urine 0 SEEN /hpf (<or=2+); Nitrite-Dipstick Negative (Negative); Occult Blood-Urine 25 /ul (Negative); Protein-Dipstick 15 mg/dl (Negative); Urine Bilirubin Dipstick 3 mg/dL (Negative); Urine Clarity Clear (Clear); Urine Urobilinogen 8 mg/dl (Normal)
[2024-02-07 18:56] LABS: Calcium Oxalate Crystals Ur 2+ /hpf (<or=2+); Hyaline Cast 0-5 SEEN /lpf (0-5); Squamous Epithelial Cells - UA 0-5 SEEN /hpf (0-5)
--- NOTE | 2024-02-07 19:45 | HP.PCM.HOS_ITS ---
HPI - General General Date of Admission: 02/07/24 Date of Service: 02/07/24 Chief Complaint: edema HPI Narrative ANDER DIAZ, is a 73 M who presents with increased lower extremity edema, scrotal edema. Patient had been on diuretics but stopped months before due to frequent urination scant amounts of urine. But he was using a towel to sit on to urinate she and eventually was too much and presented to the emergency room. Patient was profoundly edematous scrotum as well as lower extremities. Lima catheter was successfully placed in the emergency room. Chest x-ray did not show CHF. And on review of his previous weights it appears that he is put on roughly 10 kg since he was here last in 2021. [facility] Medical History Afib Congestive heart failure (CHF) COPD (chronic obstructive pulmonary disease) Former smoker Hypertension Home Medications lisinopril 10 mg tablet 10 mg PO QHS blood pressure 09/06/22 [History Last Taken Unknown] metoprolol tartrate 25 mg tablet 25 mg PO BID blood pressure 09/06/22 [History Last Taken Unknown] mometasone 200 mcg/actuation HFA aerosol inhaler 1 puff inhalation BID breathing 09/06/22 [History Last Taken Unknown] olodaterol 2.5 mcg/actuation mist for inhalation 2 inh inhalation DAILY breathing 09/06/22 [History Last Taken Unknown] simvastatin 10 mg tablet 10 mg PO QHS cholesterol 09/06/22 [History Last Taken Unknown] terazosin 2 mg capsule 2 mg PO QHS prostate 09/06/22 [History Last Taken Unknown] warfarin 5 mg tablet 5 mg PO DAILY blood thinner 09/06/22 [History Last Taken Unknown] acetaminophen 500 mg tablet 1,000 mg (2 x 500 mg) PO Q8 #0 tabs 09/08/22 [Rx Last Taken Unknown] buspirone 5 mg tablet 10 mg (2 x 5 mg) PO BID #120 tabs 09/08/22 [Rx Last Taken Unknown] furosemide 20 mg tablet (Lasix) 20 mg PO DAILY #20 tabs 09/08/22 [Rx Last Taken Unknown] lidocaine 5 % topical patch 1 patch topical DAILY #15 ea 09/08/22 [Rx Last Taken Unknown] oxycodone 10 mg tablet 10 mg PO Q8H PRN pain 1 week #21 tabs 09/08/22 [Rx Last T aken Unknown] oxycodone 5 mg tablet 10 mg (2 x 5 mg) PO Q8H PRN pain 1 week #30 tabs 09/08/22 [Rx Last Taken Unknown] Allergy/AdvReac Type Severity Reaction Status Date / Time pramoxine Allergy Rash Verified 02/07/24 17:06 Social History Smoking Status: Former smoker ROS ROS Narrative States that his swelling gets so severe it starts sleeping on his legs. Denies chest pain. Does get short of breath with exertion but his activity is limited as he spends much of his time in the chair as he is very weak to stand. All review of systems were negative except as mentioned above in the history of present illness and the other review of systems. Vital Signs Vital Signs Vital Signs: 02/07/24 17:02 02/07/24 17:06 02/07/24 18:06 Temperature 36.3 C L 36.6 C 36.5 C L Temperature Source Temporal Temporal Temporal Pulse Rate 93 85 89 Respiratory Rate 18 20 H 23 H Blood Pressure 143/91 H 129/82 H 124/97 H Blood Pressure Mean 108 97 106 Pulse Ox 97 95 90 Oxygen Delivery Method Room Air Room Air Room Air 02/07/24 17:26 02/07/24 17:27 02/07/24 17:30 Temperature Temperature Source Pulse Rate 79 89 Respiratory Rate 20 H 21 H Blood Pressure 129/82 H 109/76 Blood Pressure Mean 93 83 Pulse Ox Oxygen Delivery Method 02/07/24 17:45 02/07/24 18:03 02/07/24 18:15 Temperature Temperature Source Pulse Rate 86 81 91 Respiratory Rate 21 H 24 H 22 H Blood Pressure Blood Pressure Mean Pulse Ox Oxygen Delivery Method 02/07/24 18:23 02/07/24 18:30 02/07/24 18:45 Temperature Temperature Source Pulse Rate 93 78 84 Respiratory Rate 29 H 21 H 21 H Blood Pressure 124/97 H 126/101 H Blood Pressure Mean 106 111 Pulse Ox Oxygen Delivery Method 02/07/24 19:00 Temperature Temperature Source Pulse Rate 78 Respiratory Rate 19 H Blood Pressure 134/68 H Blood Pressure Mean 85 Pulse Ox Oxygen Delivery Method Weight Weight: 144.6 kg Body Mass Index (BMI) 43.2 Physical Exam Narrative Scrotal edema without warmth. Const alert and no apparent distress Constitutional Narrative: Obese General Appearance: cooperative HEENT normocephalic and head/scalp atraumatic Eyes Eyes Narrative: No icterus Neck Neck Narrative: Positive JVD. No thyromegaly. No lymphadenopathy. Resp normal respiratory effort Resp Narrative: Bilateral crackles in the bases. Cardio regular rate, regular rhythm, S1 normal heart sound and S2 normal heart sound GI normal to inspection, nondistended, normoactive bowel sounds, soft to palpation, non-tender and non-distended GI Narrative: Obese Extremity Extremity Narrative: Marked taut lower extremity edema Skin Skin Narrative: Lymphedematous changes in the lower extremities. Patient has a some decompensated skin on his right lateral gregorio that the patient does states is where his fluid typically drains from. Patient also has a venous stasis ulcer on his left lateral leg above the lateral malleolus without erythema or discharge. Neuro moves all extremities Sensorium / Orientation: awake and alert Psych affect normal Results Lab / Micro Data Attestation: I reviewed the patient's lab results. 02/07/24 17:38 02/07/24 17:38 Labs: Laboratory Results - last 24 hr 02/07/24 17:38: WBC 5.6, RBC 4.08 L, Hgb 11.4 L, Hct 36.9 L, MCV 90.4, MCH 27.9, MCHC 30.9 L, RDW Std Deviation 55.8 H, RDW Coeff of Medardo 16.9 H, Plt Count 175, MPV 10.9, Immature Gran % (Auto) 0.200, Neut % (Auto) 64.4, Lymph % (Auto) 18.5 L, [place] % (Auto) 11.7 H, Eos % (Auto) 3.4, Baso % (Auto) 1.8 H, Absolute Neuts (auto) 3.6, Absolute Lymphs (auto) 1.04, Nucleated RBC % 0, PT 27.8 H, INR 2.6, Sodium 138, Potassium 4.3, Chloride 105, Carbon Dioxide 29.0, Anion Gap 4 L, BUN 15, Creatinine 0.85, Estim Creat Clear Calc 112.59, Est GFR (MDRD) Af Amer 113, Est GFR (MDRD) Non-Af 93, BUN/Creatinine Ratio 17.6, Glucose 98, Calcium 8.9, B- Natriuretic Peptide 974.9 H 02/07/24 18:20: Urine Color Stephanie, Urine Clarity Clear, Urine pH 5.0, Ur Specific [place] 1.030, Urine Protein 15 H, Urine Glucose (UA) Normal, Urine Ketones 5 H, Urine Occult Blood 25 H, Urine Nitrite Negative, Urine Bilirubin 3 H, Urine Urobilinogen 8 H, Ur Leukocyte Esterase 25 H, Urine RBC 0 SEEN, Urine WBC 0 SEEN, Ur Squamous Epith Cells 0-5 SEEN, Calcium Oxalate Crystal 2+, Urine Bacteria 0 SEEN, Hyaline Casts 0-5 SEEN, Urine Mucus 0 SEEN Micro: Microbiology 02/07/24 18:44 Stool Stool Occult Blood (JONATHAN) - Final Occult Blood Positive Rhythm Strip Rhythm Strip: A-fib Rate: 84 Ectopy: None EKG Initial EKG: Attestation: I personally reviewed and interpreted this EKG as follows: Prior EKG tracings: available for review EKG Rhythm Intrepretation: Atrial Fibrillation (Rate controlled. No acute changes.) Assessment & Plan Assessment/Plan (1) CHF exacerbation: PLAN: Plan Acute HFpEF * Patient had 2D echocardiogram from September 07, 2022 where his EF was 60% * Recheck echocardiogram * Weight has gone up roughly 10 kg since that time * Patient is markedly edematous. Will initiate furosemide infusion 10 mg/h. * Fluid restrict to 1.5 L/day. Daily weights. * Nutrition consult for further recommendations. * Continue metoprolol tartrate and lisinopril. BPH * Patient has stopped taking his diuretic voluntarily because of the urinary frequency he was having. He is already on terazosin. Lima catheter was placed in the emergency room and will continue for now. I will start tamsulosin. Prior to discharge, would recommend checking postvoid residual catheters been removed to see if the catheter can remain out. Debility * Poor baseline performance status as patient has previous been wheelchair- bound. * PT OT evaluate and treat * Case management to assist with discharge needs. Scrotal edema * Secondary to third spacing from CHF * No clinical evidence of infection at this point in time * Elevate scrotum as able Venous stasis ulcers * No clear evidence of infection at this time * Consult wound care for further recommendations. Chronic conditions * History of vertebral fractures: Previously his 25-hydroxy vitamin D level has been within normal limits. Will recheck another level. Continue with pain control with oxycodone and acetaminophen. * Morbid obesity: Complicates care and long-term recovery. * Atrial fibrillation: Rate controlled. INR is therapeutic. Continue with warfarin and metoprolol. VTE prophylaxis: Not indicated as patient is already anticoagulated. CODE STATUS: Addressed with the patient. Patient is full code. Charges/Coding Visit Charges Inpatient E&M: 85073 Init Hosp L3
--- NOTE | 2024-02-07 20:17 | ECHOD_ITS ---
Reason For Study: CHF Procedure This was a 2D Doppler, Color Flow transthoracic echocardiogram. The study was technically difficult. Exam performed portable in patient room. Left Ventricle Normal left ventricle. Concentric left ventricular hypertrophy. The estimated ejection fraction is 65-70 %. Right Ventricle Normal right ventricle. Normal systolic function. Atria The left atrium is moderately enlarged. The right atrium is mildly enlarged. Mitral Valve There is mild mitral annular calcification. Mild (1+) mitral valve insufficiency. Tricuspid Valve Normal tricuspid valve. Mild tricuspid valve insufficiency. Aortic Valve Moderate to severe aortic stenosis. Peak aortic valve gradient 82 mmHg. Mean aortic valve gradient 45 mmHg. Mild (1+) aortic valve insufficiency. Pulmonic Valve The pulmonic valve is not well visualized. Great Vessels Normal aortic root. Pericardium/Pleural No pericardial effusion. MMode/2D Measurements & Calculations LVIDd: 5.9 cm IVSd: 1.4 cm LVOT diam: 2.3 cm LVIDs: 3.8 cm LVPWd: 1.5 cm LVOT area: 4.0 cm2 RVDd: 5.3 cm FS: 36.2 % Ao root diam: 3.9 cm LAV(MOD-bp): 139.0 ml LVAd ap4: 36.0 cm2 LAV(MOD-bp) Indexed: 53.9 ml/m2 LVLd ap4: 8.6 cm LAV(MOD-sp2): 144.3 ml EDV(MOD-sp4): 127.4 ml LAV(MOD-sp4): 120.9 ml EDV(sp4-el): 128.2 ml LVAs ap4: 16.4 cm2 LVLs ap4: 7.7 cm ESV(MOD-sp4): 30.5 ml ESV(sp4-el): 29.6 ml EF(MOD-sp4): 76.1 % EF(sp4-el): 76.9 % LVAd ap2: 34.3 cm2 SV(MOD-sp4): 96.9 ml SV(MOD-sp2): 67.8 ml LVLd ap2: 8.9 cm EDV(MOD-sp2): 118.1 ml EDV(sp2-el): 112.4 ml LVAs ap2: 20.3 cm2 LVLs ap2: 7.9 cm ESV(MOD-sp2): 50.3 ml ESV(sp2-el): 44.6 ml EF(MOD-sp2): 57.4 % SV(sp4-el): 98.6 ml LA dimension(2D): 5.8 cm LA A4 area: 33.5 cm2 RA A4 area: 28.2 cm2 Time Measurements MV dec time: 0.21 sec Doppler Measurements & Calculations MV E max david: 115.7 cm/sec Ao V2 max: 451.6 cm/sec MV dec slope: 551.3 cm/sec2 Ao max P.0 mmHg Ao V2 mean: 314.0 cm/sec Ao mean P.0 mmHg Ao V2 VTI: 95.7 cm AV (velocity ratio): 0.29 MARY(I,D): 1.2 cm2 MARY(V,D): 1.2 cm2 LV V1 max: 136.0 cm/sec SV(LVOT): 110.4 ml PA V2 max: 100.2 cm/sec LV V1 max P.5 mmHg LV V1 mean P.9 mmHg LV V1 mean: 91.3 cm/sec LV V1 VTI: 27.5 cm TR max david: 382.3 cm/sec TR max P.5 mmHg ECHO/Echo Complete Interpretation Summary The estimated ejection fraction is 65-70 %. Peak aortic valve gradient 82 mmHg. Mean aortic valve gradient 45 mmHg. Moderate to Severe AV stenosis Ordering Physician: Aj Randolph Referring Physician: [facility] Performed By: Kait Renner RDCS
[2024-02-07] MEDS: oxyCODONE 5 MG Tablet PO (21:03)
[2024-02-07] MEDS: Furosemide 40 MG/4 ML Vial IV (21:03)
[2024-02-07] MEDS: 0.9% Saline Lock 10 ML Syringe IV ×2 (21:03→23:11)
[2024-02-07] MEDS: Furosemide 500 MG in Empty Viaflex 50 mL 1 EACH CONT INF (23:11)
[2024-02-07] MEDS: Doxazosin 1 MG Tablet 2 MG PO (23:11)
[2024-02-07] MEDS: Atorvastatin Calcium 10 MG Tablet 5 MG PO (23:12)
[2024-02-07] MEDS: Acetaminophen 500 MG Tablet 1000 MG PO (23:12)
[2024-02-07] MEDS: Enoxaparin 40 MG/0.4 ML Syringe SC (23:14)
[2024-02-08] VITALS (8 sets, daily range): BP systolic 92–101; BP diastolic 59–68; PULSE 60–90; RESP 16–32; TEMP 36.4–36.6; O2SAT 91–94
[2024-02-08] MEDS: Acetaminophen 500 MG Tablet 1000 MG PO ×3 (05:23→21:58)
[2024-02-08 07:10] LABS: Absolute Neutrophil Count 3.5 X10^3/uL (2.0-7.7); Basophil# 0.09 X10^3/uL; Basophil% 1.7 % (0-1); Eosinophil# 0.27 X10^3/uL; Hematocrit 34.9 % (40-54); Hemoglobin 11.2 g/dL (13.0-16.5); Lymphocyte % 14.9 % (19-41); Mean Corp Hgb Conc 32.1 g/dL (32-36); Mean Corpuscular Hgb 28.7 pg (27.0-32.0); Mean Corpuscular Volume 89.5 fL (80-94); Mean Platelet Vol. 11.1 fl (6.2-12.0); Monocyte# 0.69 X10^3/uL; Monocyte% 12.8 % (0-10); NRBC Flagged by Analyzer 0 % (0-5); Neutrophil # 3.51 X10^3/uL (2.7-7.7); Neutrophil % 65.4 % (47-70); Platelet Count 173 K/mm3 (150-450); RBC Distribution Width CV 16.9 % (11.6-14.6); White Blood Count 5.4 K/mm3 (4.4-11.0)
[2024-02-08] MEDS: oxyCODONE 5 MG Tablet PO ×3 (07:50→21:57)
[2024-02-08 07:54] LABS: Anion Gap 6 (5-15); BUN 14 mg/dL (7-18); BUN/Creat Ratio 17.3 RATIO (10-20); Calcium,Total 8.5 mg/dL (8.5-10.1); Chloride 107 mmol/L (98-107); Cholesterol 76 mg/dL (200); Creatinine, Serum 0.81 mg/dL (0.70-1.30); EST Glomerular Filtration Rate 99 mL/min (>60); Est Glom Filt Rate - Afr Amer 120 mL/min (>60); Glucose 97 mg/dL (74-106); High Density Lipoprotein 46 mg/dL; Potassium 3.5 mmol/L (3.5-5.1); Sodium Level 140 mmol/L (136-145); Triglycerides 56 mg/dL; Very Low Density Lipoprotein 11 mg/dL (5-40)
[2024-02-08 08:07] LABS: International Normalized Ratio 2.5; Prothrombin Time (Protime)PT. 27.1 SECONDS (11.7-14.9)
[2024-02-08 08:14] LABS: Vitamin D,25 Hydroxy 75.8 ng/mL
--- NOTE | 2024-02-08 11:02 | NURSING ---
Patient's home medications returned to [facility]. Patient aware.
--- NOTE | 2024-02-08 13:22 | PN.HOSP_ITS ---
Reason for Visit Reason for Visit: Diagnoses Heart failure, unspecified (02/07/24) Subjective Subjective Patient admitted yesterday for worsening lower extremity edema and severe scrotal edema. Had known history of CHF but had stopped his diuretics for a few months due to frequent urination with only small urine volumes each time. He was noted to be about 10 kg up from a weight standpoint since he was last here in 2021. Lima catheter was placed on admission and patient was started on a Lasix drip at 10 mL/h. Patient seen at bedside this morning, son present. Patient was sitting up fairly comfortably in bed, conversing normally, in no acute distress. He was breathing comfortably on room air with no increased work of breathing noted. Patient states has been tolerating the Lima catheter without issue and has been told by nursing staff that he has had significant urine output while on the Lasix drip. Patient states that he feels about the same today as yesterday. Continues to have severe scrotal edema and he has mild discomfort at rest. Has known history of low back pain and states that he feels fairly uncomfortable sitting in bed due to back discomfort. They noted that the echocardiogram had just been completed prior to my arrival. Patient otherwise denied any fevers or chills, abdominal pain or discomfort. No other acute concerns this time. Objective Data Objective Data Vital Signs: Vital Signs Temp Pulse Resp BP Pulse Ox O2 Del Method 97.8 F 83 19 H 94/59 L 92 Room Air 02/08/24 10:19 02/08/24 10:19 02/08/24 10:19 02/08/24 10:19 02/08/24 10:19 02/08/24 10:33 Oxygen Delivery Method Room Air Weight: 142.2 kg Body Mass Index (BMI) 43.7 Intake & Output: Intake and Output for Last 24 Hours 02/06/24 02/07/24 02/08/24 23:59 23:59 23:59 Intake Total 240 / 240 240 / 240 Output Total 1500 / 1500 1600 / 1600 Balance -1260 / -1260 -1360 / -1360 Lab / Micro Data 02/08/24 06:45 02/08/24 06:40 Labs: Laboratory Results - last 24 hr 02/07/24 17:38: WBC 5.6, RBC 4.08 L, Hgb 11.4 L, Hct 36.9 L, MCV 90.4, MCH 27.9, MCHC 30.9 L, RDW Std Deviation 55.8 H, RDW Coeff of Medardo 16.9 H, Plt Count 175, MPV 10.9, Immature Gran % (Auto) 0.200, Neut % (Auto) 64.4, Lymph % (Auto) 18.5 L, [place] % (Auto) 11.7 H, Eos % (Auto) 3.4, Baso % (Auto) 1.8 H, Absolute Neuts (auto) 3.6, Absolute Lymphs (auto) 1.04, Nucleated RBC % 0, PT 27.8 H, INR 2.6, Sodium 138, Potassium 4.3, Chloride 105, Carbon Dioxide 29.0, Anion Gap 4 L, BUN 15, Creatinine 0.85, Estim Creat Clear Calc 112.59, Est GFR (MDRD) Af Amer 113, Est GFR (MDRD) Non-Af 93, BUN/Creatinine Ratio 17.6, Glucose 98, Calcium 8.9, B- Natriuretic Peptide 974.9 H 02/07/24 18:20: Urine Color Stephanie, Urine Clarity Clear, Urine pH 5.0, Ur Specific [place] 1.030, Urine Protein 15 H, Urine Glucose (UA) Normal, Urine Ketones 5 H, Urine Occult Blood 25 H, Urine Nitrite Negative, Urine Bilirubin 3 H, Urine Urobilinogen 8 H, Ur Leukocyte Esterase 25 H, Urine RBC 0 SEEN, Urine WBC 0 SEEN, Ur Squamous Epith Cells 0-5 SEEN, Calcium Oxalate Crystal 2+, Urine Bacteria 0 SEEN, Hyaline Casts 0-5 SEEN, Urine Mucus 0 SEEN 02/08/24 06:40: Sodium 140, Potassium 3.5, Chloride 107, Carbon Dioxide 27.0, Anion Gap 6, BUN 14, Creatinine 0.81, Estim Creat Clear Calc 115.50, Est GFR (MDRD) Af Amer 120, Est GFR (MDRD) Non-Af 99, BUN/Creatinine Ratio 17.3, Glucose 97, Calcium 8.5, Triglycerides 56, Cholesterol 76, LDL Cholesterol 19, VLDL Cholesterol 11, HDL Cholesterol 46 02/08/24 06:45: WBC 5.4, RBC 3.90 L, Hgb 11.2 L, Hct 34.9 L, MCV 89.5, MCH 28.7, MCHC 32.1, RDW Std Deviation 55.0 H, RDW Coeff of Medardo 16.9 H, Plt Count 173, MPV 11.1, Immature Gran % (Auto) 0.200, Neut % (Auto) 65.4, Lymph % (Auto) 14.9 L, [place] % (Auto) 12.8 H, Eos % (Auto) 5.0, Baso % (Auto) 1.7 H, Absolute Neuts (auto) 3.5, Absolute Lymphs (auto) 0.80 L, Nucleated RBC % 0, PT 27.1 H, INR 2.5, Vitamin D 25-Hydroxy 75.8 Micro: Microbiology 02/07/24 18:44 Stool Stool Occult Blood (JONATHAN) - Final Occult Blood Positive Radiography Diagnostic Testing: Radiology Impression Chest X-Ray 02/07/24 18:25 IMPRESSION: Vascular congestion with a small left-sided effusion and left basilar atelectasis. Electronically Signed: Giorgio Cummings MD at 20:13 EDT , Rhythm Strip Rhythm Strip: A-fib Rate: 84 Ectopy: None Physical Exam Const alert, oriented x3 and no apparent distress Constitutional Narrative: Elderly male, morbidly obese, mildly fatigued appearing, otherwise sitting up comfortably in bed, conversing normally, no acute distress. General Appearance: cooperative and comfortable HEENT normocephalic, head/scalp atraumatic, hearing grossly normal bilaterally, nasal mucous membranes and turbinates normal and moist oral mucous membranes Eyes PERRL, EOMs intact bilaterally and conjunctivae normal Neck full ROM Chest inspection of chest normal Resp normal respiratory effort, normal air movement, no use of accessory muscles and clear to auscultation bilaterally Cardio regular rate, regular rhythm, no murmurs and peripheral pulses 2+ throughout GI normal to inspection, nondistended, normoactive bowel sounds, soft to palpation, non-tender and non-distended Narrative: Severe scrotal edema noted. Catheter in place, draining clear pale yellow urine. No suprapubic tenderness noted. Back/Spine normal ROM Extremity full ROM Extremity Narrative: Lymphedematous changes noted in lower extremities bilaterally. Does have some decompensated skin on right lateral gregorio. Also has venous stasis ulcer on left lateral leg above the lateral malleolus without erythema or discharge. Neuro moves all extremities and no focal motor deficits Speech: speech normal Psych mental status grossly normal Assessment & Plan Assessment/Plan (1) CHF exacerbation: (2) Scrotal edema: PLAN: Plan Patient is a 73-year-old male who presented to [facility] ED on 02/07/2024 with worsening lower extremity edema and scrotal edema. 1. Acute HFpEF ? Presumed secondary to nonadherence to home Lasix. Marked lower extremity edema and scrotal edema on admission. Noted to be approximate 10 kg heavier than on last hospitalization back in 2021. BNP 974. Chest x-ray showed vascular congestion with small left-sided effusion. Patient reported dyspnea on exertion but notably with good oxygen saturations on room air at rest on admission. ? Last echo on 09/07/2022 showed EF 60%, normal LV function, no diastolic dysfunction noted, no regional wall motion abnormalities. ? Repeat echo on 02/07 shows EF 65 to 70%, concentric LV hypertrophy, moderately enlarged LA, mildly enlarged RA, normal RV size and function, moderate to severe aortic stenosis. ? Cardiology consulted. Continue IV Lasix drip at 10 ml/hr for now. Monitor daily BMP and urine output. 1.5 L/day fluid restriction. Daily weights. Continue home Lopressor and lisinopril. 2. BPH with obstructive symptoms ? Patient on home terazosin. Noted worsening urinary frequency with significant hesitation and difficulty with emptying his bladder for 1 to 2 months prior to this admission. ? Lima catheter placed in the ED, will continue this for now as it is expected the patient will have heavy diuresis over the next few days. Continue tamsulo sin started on admission. Would recommend discontinuing Lima prior to discharge with void trial. 3. Debility ? Patient lives at home with his but has poor baseline performance status. Noted that he previously was wheelchair-bound and has difficulty with ambulation. Chronic back pain likely contributing to his poor performance status. PT/OT/case management following. 4. Scrotal edema ? Presumed secondary to volume overload from CHF exacerbation. Treated with IV diuresis as noted above. No clinical evidence of scrotal infection. Elevate scrotum as able. 5. Venous stasis ulcers ? No clear evidence of infection at this time. Wound care consulted. 6. Aortic stenosis ? Echo on admit showed moderate to severe aortic valve stenosis with peak gradient 82 mmHg, mean gradient 45 mmHg. No aortic stenosis noted on last echo in 2021. Cardiology consulted for further recommendations. Chronic medical conditions: ? Morbid obesity: BMI 43 on admit. Complicates hospital course, care and prognosis. ? A-fib: Rate controlled. INR therapeutic on admission. Continue home Lopresso r and warfarin. ? History of vertebral fractures with chronic back pain: Follows with Dr. Musa with pain management. On pain control at home with oxycodone and acetaminophen, continue these while inpatient. Lidocaine patch ordered as well. DVT prophylaxis: Eliquis CODE STATUS: Full code, verified Expected disposition: Home with home health care versus SNF, TBD Total clinical time spent by myself addressing the patient's medical issues, reviewing all the data, and collaborating with patient's care team: 35 minutes. Charges/Coding Visit Charges Inpatient E&M: 90905 Subs Hosp L2
--- NOTE | 2024-02-08 13:50 | CASEMGMT ---
TEODORO HARVEY [employer] SALES PROFESSIONAL CM to room to meet with patient for initial transition planning/care coordination assessment. TEODORO HARVEY introduced self and role at [facility]. Pt voices understanding and consents to assessment at this time. Pt resting in bed in no distress at this time. Pt is A/O at this time and answers all questions appropriately. Care providers, pharmacy, and demographics verified/updated at this time. PCP: Dr Rivas @ [facility]. Pt states his last appt was about 6 months ago. He has an upcoming appt in March. Preferred Pharmacy: [facility] Retail Insurance: [employer] [facility] Prescription Benefit: yes LNOK: , Susie. Son, Yariel. Living Arrangements: Lives w/ in one-story home w/either 5 or 13 steps to enter. Pt states he is able to navigate the stairs well, stating he just goes up/down carefully. They live in an in-law suite w/their son, Yariel, FROY, and 2 grandsons (23 and 21). Independent w/ADL's @ baseline and manages his own medications. Pt states he was doing most of the home mgnt tasks up until about 2 weeks ago, when he started not feeling well. Transportation: Pt does not drive. Family provides transportation. DME: States has the following DME: shower chair, TSR, grab bars, dampener operator, sock aid, cane, rollator (uses outside as needed), [facility], lift chair. Pt also has a CPAP from the [facility] and he uses it @ HS and when he naps. He states the button on top does not work (that turns it on/off) and so he smacks it to get it to work. He states this has been broken for years. He states he has not notified the [facility] about it yet, stating, I've been lax about that. RN WES encouraged him to notify the [facility] so it can either get fixed or replaced. He voices understanding. Pt states no need for further DME at this time. HHC/SNF: No hx of SNF. He has had [facility] in the past. Pt states does not want to go to a SNF and wishes to return home. He would like [facility] for SN only, stating he does not want therapy, stating I've had them in the past and they hurt more than helped. He declines wanting list of other HHC options unless [facility] unable to accept. Pt was made aware Dr Rivas @ the [facility] would need to be willing to follow for HHC in order for them to see him. RN, Shilpa, made aware. Pt does his own wound care to BLE @ home. Pt voices no further concerns/needs at this time. Advised pt to ask for CM if any further questions/concerns/needs arise. Voices understanding. PLAN: Home w/HHC vs CC[facility] if Dr Rivas not willing to follow for HHC. Za BSN RN CM
--- NOTE | 2024-02-08 15:00 | WOUNDNOTE ---
wound photo: right lateral lower back
--- NOTE | 2024-02-08 15:01 | WOUNDNOTE ---
wound photo: right lower leg
--- NOTE | 2024-02-08 15:02 | WOUNDNOTE ---
wound photo: left lower leg
--- NOTE | 2024-02-08 15:03 | WOUNDNOTE ---
wound photo: left lateral lower leg
--- NOTE | 2024-02-08 15:03 | WOUNDNOTE ---
wound photo: left great toe
[2024-02-08] MEDS: Albuterol 2.5 MG/3 ML VIAL.NEB. INHALATION ×2 (15:36→22:15)
[2024-02-08] MEDS: Lidocaine 5% Patch 1 PATCH TOPICAL (16:26)
[2024-02-08] MEDS: Tamsulosin HCl 0.4 MG Capsule PO (17:33)
[2024-02-08] MEDS: Atorvastatin Calcium 10 MG Tablet 5 MG PO (21:58)
[2024-02-08] MEDS: Doxazosin 1 MG Tablet 2 MG PO (21:58)
[2024-02-08] MEDS: Budesonide Respules 0.5 MG/2 ML AMPUL.NEB. INHALATION (22:15)
--- NOTE | 2024-02-08 22:51 | CPS ---
Pt put home CPAP on for the night.
[2024-02-09] VITALS (9 sets, daily range): BP systolic 98–113; BP diastolic 55–69; PULSE 62–85; RESP 16–18; TEMP 36.2–36.5; O2SAT 90–96; BMI 41.6
[2024-02-09 05:09] LABS: Hematocrit 33.1 % (40-54); Hemoglobin 10.6 g/dL (13.0-16.5); Mean Corpuscular Hgb 28.6 pg (27.0-32.0); Mean Corpuscular Volume 89.5 fL (80-94); Mean Platelet Vol. 10.6 fl (6.2-12.0); Platelet Count 162 K/mm3 (150-450); RBC Distribution Width CV 16.9 % (11.6-14.6); RBC Distribution Width SD 54.9 fl (35.1-43.9); White Blood Count 5.7 K/mm3 (4.4-11.0)
[2024-02-09 05:20] LABS: International Normalized Ratio 2.6; Prothrombin Time (Protime)PT. 27.4 SECONDS (11.7-14.9)
[2024-02-09 05:31] LABS: Anion Gap 4 (5-15); BUN 13 mg/dL (7-18); BUN/Creat Ratio 14.1 RATIO (10-20); Calcium,Total 8.6 mg/dL (8.5-10.1); Chloride 105 mmol/L (98-107); Creatinine, Serum 0.92 mg/dL (0.70-1.30); EST Glomerular Filtration Rate 86 mL/min (>60); Est Glom Filt Rate - Afr Amer 103 mL/min (>60); Estimated Creatinine Clearance 98.98 ml/min; Glucose 101 mg/dL (74-106); Potassium 3.2 mmol/L (3.5-5.1); Sodium Level 140 mmol/L (136-145)
[2024-02-09] MEDS: Acetaminophen 500 MG Tablet 1000 MG PO ×3 (06:08→20:53)
[2024-02-09] MEDS: oxyCODONE 5 MG Tablet PO ×3 (06:08→20:00)
[2024-02-09] MEDS: Budesonide Respules 0.5 MG/2 ML AMPUL.NEB. INHALATION ×2 (07:12→20:10)
[2024-02-09] MEDS: Furosemide 500 MG in Empty Viaflex 50 mL 1 EACH CONT INF (08:31)
[2024-02-09] MEDS: Lidocaine 5% Patch 1 PATCH TOPICAL (09:47)
--- NOTE | 2024-02-09 14:32 | PCM.CONS.C ---
Documented by User: MATT Palmer 02/09/24 14:45 Assessment & Plan Assessment/Plan (1) Longstanding persistent atrial fibrillation: (2) Aortic stenosis: (3) CHF exacerbation: PLAN: Plan Patient will continue with his warfarin and metoprolol for his atrial fibrillation. His rate is controlled. Patient's aortic stenosis appears to be a newer finding for patient. This will likely need to be further evaluated with a heart cath however this could be done on an outpatient basis. For now recommend that we continue to diurese him. When able would switch him over to oral Lasix. Would like to follow-up with patient on an outpatient basis. Cardiology will sign off for now. If any additional input is needed please call. HPI Consult Data Date of Consult: 02/09/24 HPI Narrative HPI Narrative: ANDER DIAZ, is a 73 M who presented to [facility] emergency room on 02/07/2024 with significant lower extremity edema. Patient states that his symptoms have started over the last few weeks although he does state that it may be longer than that. He does have a history of atrial fibrillation, hypertension, COPD and a history of congestive heart failure. 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 He is not aware of any previous murmur that he has had. We were consulted because he did have an echocardiogram done which did demonstrate an ejection fraction of 65% with moderate to severe aortic stenosis. When compared to previous echocardiogram in 2021 this was not noted. Patient does have more shortness of breath with his lower extremity edema. He does not have any chest pain. He is not aware of his atrial fibrillation. He is compliant with his CPAP. He does not have any lightheadedness or dizziness. He does not have any syncope. [facility] Medical History (Updated 02/09/24 @ 14:41 by MATT Palmer) Afib Aortic stenosis Congestive heart failure (CHF) COPD (chronic obstructive pulmonary disease) Former smoker Hypertension Longstanding persistent atrial fibrillation Home Medications lisinopril 10 mg tablet 10 mg PO QHS blood pressure 09/06/22 [History Last Taken Unknown] metoprolol tartrate 25 mg tablet 25 mg PO BID blood pressure 09/06/22 [History Last Taken Unknown] simvastatin 10 mg tablet 10 mg PO QHS cholesterol 09/06/22 [History Last Taken Unknown] terazosin 2 mg capsule 2 mg PO QHS prostate 09/06/22 [History Last Taken Unknown] warfarin 5 mg tablet 5 mg PO DAILY blood thinner 09/06/22 [History Last Taken Unknown] furosemide 20 mg tablet (Lasix) 20 mg PO DAILY #20 tabs 09/08/22 [Rx Last Taken Unknown] lidocaine 5 % topical patch 1 patch topical DAILY pain #15 ea 09/08/22 [Rx Last Taken Unknown] oxycodone 10 mg tablet 10 mg PO Q8H PRN pain 1 week #21 tabs 09/08/22 [Rx Last Taken Unknown] oxycodone 5 mg tablet 10 mg (2 x 5 mg) PO Q8H PRN pain 1 week #30 tabs 09/08/22 [Rx Last Taken Unknown] acetaminophen 500 mg tablet 1,000 mg PO Q8 PRN pain 02/08/24 [History Last Taken Unknown] albuterol sulfate 90 mcg/actuation aerosol inhaler 1 puff inhalation Q4H PRN SOB 02/08/24 [History Last Taken Unknown] tiotropium 2.5 mcg-olodaterol 2.5 mcg/actuation mist for inhalation (Stiolto Respimat) 1 puff inhalation BID breathing 02/08/24 [History Last Taken Unknown] Allergy/AdvReac Type Severity Reaction Status Date / Time pramoxine Allergy Rash Verified 02/07/24 17:06 Social History Smoking Status: Former smoker ROS Constitutional Constitutional: Reports fatigue; Denies frequent falls or headache(s) Eyes Eyes: Denies acute decrease in peripheral vision, blurry vision or change in vision ENT HEENT: Denies dizziness or epistaxis Cardiovascular Cardiovascular: Reports as per HPI and chest pain at rest Respiratory/Chest Respiratory/Chest: Reports as per HPI Gastrointestinal Gastrointestinal: Denies abdominal pain, coffee ground emesis, heartburn or nausea Genitourinary Genitourinary: Denies hematuria Musculoskeletal Musculoskeletal: Reports difficulty walking, muscle weakness and myalgias Neurologic Neurologic: Denies abnormal gait, abnormal speech, memory loss, paresthesias or weakness Physical Exam Const alert, oriented x3 and no apparent distress Constitutional Narrative: Elderly male, morbidly obese, mildly fatigued appearing, otherwise sitting up comfortably in bed, conversing normally, no acute distress. General Appearance: cooperative and comfortable HEENT normocephalic, head/scalp atraumatic, hearing grossly normal bilaterally and moist oral mucous membranes Eyes PERRL, EOMs intact bilaterally and conjunctivae normal Neck full ROM Chest inspection of chest normal Resp normal respiratory effort, normal air movement, no use of accessory muscles and clear to auscultation bilaterally Cardio Rate: regular rate Rhythm: abnormal rhythm irregularly irregular Heart Sounds: murmur systolic III/ harsh GI normal to inspection, nondistended, normoactive bowel sounds, soft to palpation, non-tender and non-distended Extremity Extremity Narrative: Edematous, wearing wraps Neuro moves all extremities and no focal motor deficits Speech: speech normal Psych mental status grossly normal Risk Stratification Risk Stratification Applicable: No Objective Data Vital Signs: Vital Signs Temp Pulse Resp BP Pulse Ox O2 Del Method 97.1 F L 85 16 98/67 94 Room Air 02/09/24 09:49 02/09/24 09:49 02/09/24 09:49 02/09/24 09:49 02/09/24 09:49 02/09/24 09:49 Oxygen Delivery Method Room Air Weight: 298 lb 8.094 oz Body Mass Index (BMI) 41.6 Intake & Output: Intake and Output for Last 24 Hours 02/07/24 02/08/24 02/09/24 23:59 23:59 23:59 Intake Total 240 / 240 1290 / 1440 183.33 / 183.33 Output Total 1500 / 1500 5300 / 7500 6050 / 6050 Balance -1260 / -1260 -4010 / -6060 -5866.67 / -5866.67 Lab / Micro Data 02/09/24 04:50 02/09/24 04:50 Labs: Laboratory Results - last 24 hr 02/09/24 04:50: WBC 5.7, RBC 3.70 L, Hgb 10.6 L, Hct 33.1 L, MCV 89.5, MCH 28.6, MCHC 32.0, RDW Std Deviation 54.9 H, RDW Coeff of Medardo 16.9 H, Plt Count 162, MPV 10.6, PT 27.4 H, INR 2.6, Sodium 140, Potassium 3.2 L, Chloride 105, Carbon Dioxide 31.0, Anion Gap 4 L, BUN 13, Creatinine 0.92, Estim Creat Clear Calc 98.98, Est GFR (MDRD) Af Amer 103, Est GFR (MDRD) Non-Af 86, BUN/Creatinine Ratio 14.1, Glucose 101, Calcium 8.6 Rhythm Strip Rhythm Strip: A-fib Rate: 84 Ectopy: None Cardiology Labs/Tests 02/09/24 04:50: WBC 5.7, RBC 3.70 L, Hgb 10.6 L, Hct 33.1 L, MCV 89.5, MCH 28.6, MCHC 32.0, Plt Count 162, MPV 10.6, PT 27.4 H, INR 2.6, Sodium 140, Potassium 3.2 L, Chloride 105, Carbon Dioxide 31.0, Anion Gap 4 L, BUN 13, Creatinine 0.92, Est GFR (MDRD) Af Amer 103, Est GFR (MDRD) Non-Af 86, BUN/Creatinine Ratio 14.1, Glucose 101, Calcium 8.6 Rhythm: EKG: Afib Radiography Diagnostic Testing: Radiology Impression Echocardiogram 02/07/24 20:17 Interpretation Summary The estimated ejection fraction is 65-70 %. Peak aortic valve gradient 82 mmHg. Mean aortic valve gradient 45 mmHg. Moderate to Severe AV stenosis Ordering Physician: Aj Randolph Referring Physician: [facility] Performed By: Kait Renner RDCS Documented by User: Dr. Osiris Yip MD 02/09/24 15:30 Assessment & Plan Assessment/Plan (1) Longstanding persistent atrial fibrillation: (2) Aortic stenosis: (3) CHF exacerbation: PLAN: Plan Patient will continue with his warfarin and metoprolol for his atrial fibrillation. His rate is controlled. Patient's aortic stenosis appears to be a newer finding for patient. This will likely need to be further evaluated with a heart cath however this could be done on an outpatient basis. For now recommend that we continue to diurese him. When able would switch him over to oral Lasix. Cardiac care plan and recommendations; Would like to follow-up with patient on an outpatient basis. Review of the transthoracic echocardiogram showed diffuse calcific aortic valve stenosis which is moderate to severe Discrepancy noted in the aortic valve area and maximum and mean gradient With aortic valve area calculated 1.2 and maximum gradient 85 with a mean gradient of 45 Further evaluation with recommend possible left and right heart catheterization His presentation was shortness of breath his LV function is still preserved and with left ventricular hypertrophy. This can be set up as an outpatient with Dr. Laird. Cardiology will sign off for now. If any additional input is needed please call. Osiris Yip MD,FACC,[facility] HPI Consult Data Date of Consult: 02/09/24 [facility] Medical History (Updated 02/09/24 @ 14:41 by Chloe GUTIERREZ, PA) Afib Aortic stenosis Congestive heart failure (CHF) COPD (chronic obstructive pulmonary disease) Former smoker Hypertension Longstanding persistent atrial fibrillation Home Medications lisinopril 10 mg tablet 10 mg PO QHS blood pressure 09/06/22 [History Last Taken Unknown] metoprolol tartrate 25 mg tablet 25 mg PO BID blood pressure 09/06/22 [History Last Taken Unknown] simvastatin 10 mg tablet 10 mg PO QHS cholesterol 09/06/22 [History Last Taken Unknown] terazosin 2 mg capsule 2 mg PO QHS prostate 09/06/22 [History Last Taken Unknown] warfarin 5 mg tablet 5 mg PO DAILY blood thinner 09/06/22 [History Last Taken Unknown] furosemide 20 mg tablet (Lasix) 20 mg PO DAILY #20 tabs 09/08/22 [Rx Last Taken Unknown] lidocaine 5 % topical patch 1 patch topical DAILY pain #15 ea 09/08/22 [Rx Last Taken Unknown] oxycodone 10 mg tablet 10 mg PO Q8H PRN pain 1 week #21 tabs 09/08/22 [Rx Last Taken Unknown] oxycodone 5 mg tablet 10 mg (2 x 5 mg) PO Q8H PRN pain 1 week #30 tabs 09/08/22 [Rx Last Taken Unknown] acetaminophen 500 mg tablet 1,000 mg PO Q8 PRN pain 02/08/24 [History Last Taken Unknown] albuterol sulfate 90 mcg/actuation aerosol inhaler 1 puff inhalation Q4H PRN SOB 02/08/24 [History Last Taken Unknown] tiotropium 2.5 mcg-olodaterol 2.5 mcg/actuation mist for inhalation (Stiolto Respimat) 1 puff inhalation BID breathing 02/08/24 [History Last Taken Unknown] Allergy/AdvReac Type Severity Reaction Status Date / Time pramoxine Allergy Rash Verified 02/07/24 17:06 Social History Smoking Status: Former smoker Lab / Micro Data 02/09/24 04:50 02/09/24 04:50
[2024-02-09] MEDS: Tamsulosin HCl 0.4 MG Capsule PO (17:18)
--- NOTE | 2024-02-09 20:06 | PCM.PN.HOSP ---
Reason for Visit Reason for Visit: Diagnoses Nonrheumatic aortic (valve) stenosis (02/07/24) Longstanding persistent atrial fibrillation (02/07/24) Heart failure, unspecified (02/07/24) Other specified disorders of the male genital organs (02/07/24) Subjective Subjective Patient was seen and examined today, I talked briefly with cardiology about his care. He remains on a Lasix drip at this time, potassium was slightly low at 3.2 today Objective Data Objective Data Vital Signs: Vital Signs Temp Pulse Resp BP Pulse Ox O2 Del Method 97.7 F L 83 16 113/69 96 Room Air 02/09/24 19:57 02/09/24 19:57 02/09/24 19:57 02/09/24 19:57 02/09/24 19:57 02/09/24 19:57 Oxygen Delivery Method Room Air Weight: 135.4 kg Body Mass Index (BMI) 41.6 Intake & Output: Intake and Output for Last 24 Hours 02/07/24 02/08/24 02/09/24 23:59 23:59 23:59 Intake Total 240 / 240 1290 / 1440 423.33 / 423.33 Output Total 1500 / 1500 5300 / 7500 7450 / 7450 Balance -1260 / -1260 -4010 / -6060 -7026.67 / -7026.67 Lab / Micro Data 02/09/24 04:50 02/09/24 04:50 Labs: Laboratory Results - last 24 hr 02/09/24 04:50: WBC 5.7, RBC 3.70 L, Hgb 10.6 L, Hct 33.1 L, MCV 89.5, MCH 28.6, MCHC 32.0, RDW Std Deviation 54.9 H, RDW Coeff of Medardo 16.9 H, Plt Count 162, MPV 10.6, PT 27.4 H, INR 2.6, Sodium 140, Potassium 3.2 L, Chloride 105, Carbon Dioxide 31.0, Anion Gap 4 L, BUN 13, Creatinine 0.92, Estim Creat Clear Calc 98.98, Est GFR (MDRD) Af Amer 103, Est GFR (MDRD) Non-Af 86, BUN/Creatinine Ratio 14.1, Glucose 101, Calcium 8.6 Micro: Microbiology 02/07/24 18:44 Stool Stool Occult Blood (JONATHAN) - Final Occult Blood Positive Rhythm Strip Rhythm Strip: A-fib Rate: 84 Ectopy: None Physical Exam Const alert and no apparent distress Constitutional Narrative: Patient appears older than his stated age, he is morbidly obese General Appearance: cooperative, well kempt and well developed Orientation / Consciousness: awake, oriented to person and oriented to place HEENT normocephalic, head/scalp atraumatic and moist oral mucous membranes Eyes PERRL, EOMs intact bilaterally and conjunctivae normal Neck supple, no JVD, thyroid normal and no carotid bruits General: trachea midline Resp normal respiratory effort and clear to auscultation bilaterally Auscultation: Negative for rales, rhonchi or wheezes Cardio S1 normal heart sound, S2 normal heart sound, no murmurs, no rub and no gallops Cardio Narrative: Heart rate and rhythm is irregular GI normal to inspection, nondistended, normoactive bowel sounds, soft to palpation, non-tender and non-distended Extremity Extremity Narrative: Patient has significant lower leg edema bilaterally, his legs are wrapped with Carlos wraps Neuro CN's II-XII intact bilaterally, no focal motor deficits and no sensory deficits noted Sensorium / Orientation: awake and alert Speech: speech normal Psych affect normal Assessment & Plan Assessment/Plan (1) Longstanding persistent atrial fibrillation: PLAN: Plan 1. Acute on chronic diastolic congestive heart failure-patient remains on IV Lasix at this time, labs will be monitored #2 moderate pulmonary hypertension-complicates care, management, recovery, and prognosis, patient is on IV Lasix #3 morbid obesity-complicates care, management, recovery, and prognosis #4 severe aortic stenosis-complicates care, management, recovery, and prognosis #5 permanent atrial fibrillation-patient is currently on Coumadin and rate limiting agents, patient will be monitored #5 hypokalemia-I placed the patient on oral potassium, labs will be rechecked Total clinical time spent by myself addressing the patient's medical issues, reviewing all of his data, and collaborating with patient's care team: 50 minutes Charges/Coding Visit Charges Inpatient E&M: 72067 [facility] L3
[2024-02-09] MEDS: Atorvastatin Calcium 10 MG Tablet 5 MG PO (20:52)
[2024-02-09] MEDS: Potassium Chloride Oral Tablet 20 MEQ PO (20:52)
[2024-02-09] MEDS: Doxazosin 1 MG Tablet 2 MG PO (20:53)
[2024-02-10] VITALS (10 sets, daily range): BP systolic 81–127; BP diastolic 48–89; PULSE 68–89; RESP 16–18; TEMP 36.1–37.1; O2SAT 91–95; BMI 41.2
[2024-02-10] MEDS: Acetaminophen 500 MG Tablet 1000 MG PO ×3 (06:01→21:37)
[2024-02-10] MEDS: oxyCODONE 5 MG Tablet PO ×4 (06:01→21:37)
[2024-02-10 06:42] LABS: International Normalized Ratio 2.4; Prothrombin Time (Protime)PT. 25.8 SECONDS (11.7-14.9)
[2024-02-10] MEDS: Budesonide Respules 0.5 MG/2 ML AMPUL.NEB. INHALATION ×2 (06:51→19:18)
[2024-02-10 07:27] LABS: Anion Gap 5 (5-15); BUN 13 mg/dL (7-18); BUN/Creat Ratio 14.2 RATIO (10-20); Chloride 101 mmol/L (98-107); Creatinine, Serum 0.92 mg/dL (0.70-1.30); EST Glomerular Filtration Rate 86 mL/min (>60); Est Glom Filt Rate - Afr Amer 104 mL/min (>60); Estimated Creatinine Clearance 98.46 ml/min; Glucose 92 mg/dL (74-106); Potassium 3.4 mmol/L (3.5-5.1); Sodium Level 141 mmol/L (136-145)
[2024-02-10] MEDS: Docusate Sodium 100 MG Capsule 200 MG PO (10:29)
[2024-02-10] MEDS: Potassium Chloride Oral Tablet 20 MEQ PO ×2 (10:32→16:36)
[2024-02-10] MEDS: Lidocaine 5% Patch 1 PATCH TOPICAL (10:32)
--- NOTE | 2024-02-10 14:14 | PCM.PN.HOSP ---
Reason for Visit Reason for Visit: Diagnoses Nonrheumatic aortic (valve) stenosis (02/07/24) Longstanding persistent atrial fibrillation (02/07/24) Heart failure, unspecified (02/07/24) Other specified disorders of the male genital organs (02/07/24) Subjective Subjective Patient was seen and examined today, I talked with his son who was in the room at the time of my examination. Patient's blood pressure was low this morning and I temporarily stopped his Lasix drip, I went back and stopped his Cardura and lisinopril-I do not think the patient needs these medications. Patient has no complaints of any shortness of breath. Objective Data Objective Data Vital Signs: Vital Signs Temp Pulse Resp BP Pulse Ox O2 Del Method 97.6 F L 75 18 101/64 92 CPAP 02/10/24 12:22 02/10/24 12:22 02/10/24 12:22 02/10/24 12:22 02/10/24 12:22 02/10/24 13:01 Oxygen Delivery Method CPAP Weight: 134.1 kg Body Mass Index (BMI) 41.2 Intake & Output: Intake and Output for Last 24 Hours 02/08/24 02/09/24 02/10/24 23:59 23:59 23:59 Intake Total 1290 / 1440 423.33 / 423.33 500 / 500 Output Total 5300 / 7500 8700 / 8700 3100 / 3100 Balance -4010 / -6060 -8276.67 / -8276.67 -2600 / -2600 Lab / Micro Data 02/09/24 04:50 02/10/24 06:15 Labs: Laboratory Results - last 24 hr 02/10/24 06:15: PT 25.8 H, INR 2.4, Sodium 141, Potassium 3.4 L, Chloride 101, Carbon Dioxide 35.0 H, Anion Gap 5, BUN 13, Creatinine 0.92, Estim Creat Clear Calc 98.46, Est GFR (MDRD) Af Amer 104, Est GFR (MDRD) Non-Af 86, BUN/Creatinine Ratio 14.2, Glucose 92, Calcium 9.0 Micro: Microbiology 02/07/24 18:44 Stool Stool Occult Blood (JONATHAN) - Final Occult Blood Positive Rhythm Strip Rhythm Strip: A-fib Rate: 84 Ectopy: None Physical Exam Narrative alert and no apparent distress Constitutional Narrative: Patient appears older than his stated age, he is morbidly obese General Appearance: cooperative, well kempt and well developed Orientation / Consciousness: awake, oriented to person and oriented to place HEENT normocephalic, head/scalp atraumatic and moist oral mucous membranes Eyes PERRL, EOMs intact bilaterally and conjunctivae normal Neck supple, no JVD, thyroid normal and no carotid bruits General: trachea midline Resp normal respiratory effort and clear to auscultation bilaterally Auscultation: Negative for rales, rhonchi or wheezes Cardio S1 normal heart sound, S2 normal heart sound, no murmurs, no rub and no gallops Cardio Narrative: Heart rate and rhythm is irregular GI normal to inspection, nondistended, normoactive bowel sounds, soft to palpation, non-tender and non-distended Extremity Extremity Narrative: Patient has significant lower leg edema bilaterally, his legs are wrapped with Carlos wraps Neuro CN's II-XII intact bilaterally, no focal motor deficits and no sensory deficits noted Sensorium / Orientation: awake and alert Speech: speech normal Psych affect normal Assessment & Plan Assessment/Plan (1) Longstanding persistent atrial fibrillation: PLAN: Plan 1. Acute on chronic diastolic congestive heart failure-due to the patient's low blood pressure today, I have elected to stop his lisinopril, I also stopped his Cardura (patient is on Flomax already), Lasix drip was restarted #2 moderate pulmonary hypertension-complicates care, management, recovery, and prognosis, patient is on IV Lasix #3 morbid obesity-complicates care, management, recovery, and prognosis #4 severe aortic stenosis-complicates care, management, recovery, and prognosis #5 permanent atrial fibrillation-patient is currently on Coumadin and rate limiting agents, patient will be monitored #5 hypokalemia-I will increase the patient's potassium supplementation. Potassium today was 3.4. Total clinical time spent by myself addressing the patient's medical issues, reviewing all of his data, and collaborating with patient's care team: 35 minutes Charges/Coding Visit Charges Inpatient E&M: 99099 Subs Hosp L2
[2024-02-10] MEDS: Tamsulosin HCl 0.4 MG Capsule PO (16:36)
[2024-02-10] MEDS: Atorvastatin Calcium 10 MG Tablet 5 MG PO (21:36)
[2024-02-11] VITALS (7 sets, daily range): BP systolic 97–113; BP diastolic 61–71; PULSE 61–80; RESP 18; TEMP 36.2–36.5; O2SAT 91–96; BMI 39.2
[2024-02-11] MEDS: oxyCODONE 5 MG Tablet PO ×5 (03:25→21:26)
[2024-02-11] MEDS: Acetaminophen 500 MG Tablet 1000 MG PO ×3 (06:04→21:27)
[2024-02-11 06:42] LABS: International Normalized Ratio 2.3; Prothrombin Time (Protime)PT. 25.1 SECONDS (11.7-14.9)
[2024-02-11 07:00] LABS: Anion Gap 6 (5-15); BUN 15 mg/dL (7-18); BUN/Creat Ratio 16.9 RATIO (10-20); Calcium,Total 8.9 mg/dL (8.5-10.1); Chloride 99 mmol/L (98-107); Creatinine, Serum 0.89 mg/dL (0.70-1.30); EST Glomerular Filtration Rate 89 mL/min (>60); Est Glom Filt Rate - Afr Amer 107 mL/min (>60); Estimated Creatinine Clearance 99.06 ml/min; Glucose 104 mg/dL (74-106); Potassium 3.2 mmol/L (3.5-5.1); Sodium Level 139 mmol/L (136-145)
[2024-02-11] MEDS: Budesonide Respules 0.5 MG/2 ML AMPUL.NEB. INHALATION ×2 (07:25→21:32)
[2024-02-11 09:23] LABS: Phosphorus 3.2 mg/dL (2.5-4.9)
[2024-02-11] MEDS: Lidocaine 5% Patch 1 PATCH TOPICAL (09:31)
[2024-02-11] MEDS: Docusate Sodium 100 MG Capsule 200 MG PO (09:32)
[2024-02-11] MEDS: Potassium Chloride Oral Tablet 20 MEQ PO ×2 (09:32→16:31)
[2024-02-11] MEDS: Furosemide 500 MG in Empty Viaflex 50 mL 1 EACH CONT INF (09:36)
--- NOTE | 2024-02-11 11:41 | PCM.PN.HOSP ---
Reason for Visit Reason for Visit: Diagnoses Nonrheumatic aortic (valve) stenosis (02/07/24) Longstanding persistent atrial fibrillation (02/07/24) Heart failure, unspecified (02/07/24) Other specified disorders of the male genital organs (02/07/24) Subjective Subjective Patient was seen and examined today, potassium was slightly low today I gave him some oral potassium. Patient continues to diurese well on IV Lasix drip. Objective Data Objective Data Vital Signs: Vital Signs Temp Pulse Resp BP Pulse Ox O2 Del Method O2 Flow Rate 97.4 F L 61 18 102/62 92 Room Air 92 02/11/24 09:15 02/11/24 09:15 02/11/24 09:15 02/11/24 09:15 02/11/24 09:15 02/11/24 09:15 02/11/24 08:00 Oxygen Flow Rate (L/min) 92 Oxygen Delivery Method Room Air Weight: 127.5 kg Body Mass Index (BMI) 39.2 Intake & Output: Intake and Output for Last 24 Hours 02/09/24 02/10/24 02/11/24 23:59 23:59 23:59 Intake Total 423.33 / 423.33 885.98 / 885.98 319.32 / 319.32 Output Total 8700 / 8700 4950 / 4950 1750 / 1750 Balance -8276.67 / -8276.67 -4064.02 / -4064.02 -1430.68 / -1430.68 Lab / Micro Data 02/09/24 04:50 02/11/24 05:09 Labs: Laboratory Results - last 24 hr 02/11/24 05:09: PT 25.1 H, INR 2.3, Sodium 139, Potassium 3.2 L, Chloride 99, Carbon Dioxide 34.0 H, Anion Gap 6, BUN 15, Creatinine 0.89, Estim Creat Clear Calc 99.06, Est GFR (MDRD) Af Amer 107, Est GFR (MDRD) Non-Af 89, BUN/Creatinine Ratio 16.9, Glucose 104, Calcium 8.9, Phosphorus 3.2, Magnesium 2.0 Micro: Microbiology 02/07/24 18:44 Stool Stool Occult Blood (JONATHAN) - Final Occult Blood Positive Rhythm Strip Rhythm Strip: A-fib Rate: 84 Ectopy: None Physical Exam Narrative alert and no apparent distress Constitutional Narrative: Patient appears older than his stated age, he is morbidly obese General Appearance: cooperative, well kempt and well developed Orientation / Consciousness: awake, oriented to person and oriented to place, patient has significant scrotal edema HEENT normocephalic, head/scalp atraumatic and moist oral mucous membranes Eyes PERRL, EOMs intact bilaterally and conjunctivae normal Neck supple, no JVD, thyroid normal and no carotid bruits General: trachea midline Resp normal respiratory effort and clear to auscultation bilaterally Auscultation: Negative for rales, rhonchi or wheezes Cardio S1 normal heart sound, S2 normal heart sound, no murmurs, no rub and no gallops Cardio Narrative: Heart rate and rhythm is irregular GI normal to inspection, nondistended, normoactive bowel sounds, soft to palpation, non-tender and non-distended Extremity Extremity Narrative: Patient has significant lower leg edema bilaterally, his legs are wrapped with Carlos wraps Neuro CN's II-XII intact bilaterally, no focal motor deficits and no sensory deficits noted Sensorium / Orientation: awake and alert Speech: speech normal Psych affect normal Assessment & Plan Assessment/Plan (1) Longstanding persistent atrial fibrillation: PLAN: Plan 1. Acute on chronic diastolic congestive heart failure-continue IV diuresis with Lasix, patient has lost approximately 10 kg of weight since admission #2 moderate pulmonary hypertension-complicates care, management, recovery, and prognosis, patient is on IV Lasix #3 morbid obesity-complicates care, management, recovery, and prognosis #4 severe aortic stenosis-complicates care, management, recovery, and prognosis #5 permanent atrial fibrillation-patient is currently on Coumadin and rate limiting agents, patient will be monitored #5 hypokalemia-patient was given supplemental potassium today, BMP will be repeated tomorrow Total clinical time spent by myself addressing the patient's medical issues, reviewing all of his data, and collaborating with patient's care team: 35 minutes Charges/Coding Visit Charges Inpatient E&M: 56659 Subs Hosp L2
[2024-02-11] MEDS: Potassium Chloride Oral Tablet 20 MEQ 60 MEQ PO (12:45)
[2024-02-11] MEDS: Tamsulosin HCl 0.4 MG Capsule PO (16:25)
[2024-02-11] MEDS: Lactulose 20 GM/30 ML UDC 30 GM PO ×2 (18:30→21:26)
[2024-02-11] MEDS: Atorvastatin Calcium 10 MG Tablet 5 MG PO (21:27)
[2024-02-12] VITALS (8 sets, daily range): BP systolic 91–113; BP diastolic 57–70; PULSE 56–84; RESP 16–18; TEMP 36.4–36.9; O2SAT 93–98; BMI 37.8
[2024-02-12] MEDS: oxyCODONE 5 MG Tablet PO ×4 (04:25→20:54)
[2024-02-12] MEDS: Nystatin Powder 15gm Bottle 1 APPLIC TOPICAL (06:11)
[2024-02-12] MEDS: Acetaminophen 500 MG Tablet 1000 MG PO ×3 (06:11→20:54)
[2024-02-12 07:03] LABS: International Normalized Ratio 2.3; Prothrombin Time (Protime)PT. 24.8 SECONDS (11.7-14.9)
[2024-02-12 07:17] LABS: Anion Gap 3 (5-15); BUN 15 mg/dL (7-18); BUN/Creat Ratio 15.1 RATIO (10-20); Calcium,Total 9.6 mg/dL (8.5-10.1); Chloride 98 mmol/L (98-107); Creatinine, Serum 0.99 mg/dL (0.70-1.30); EST Glomerular Filtration Rate 78 mL/min (>60); Est Glom Filt Rate - Afr Amer 95 mL/min (>60); Estimated Creatinine Clearance 87.35 ml/min; Glucose 98 mg/dL (74-106); Potassium 3.5 mmol/L (3.5-5.1); Sodium Level 137 mmol/L (136-145)
[2024-02-12] MEDS: Potassium Chloride Oral Tablet 20 MEQ PO ×2 (09:12→17:54)
[2024-02-12] MEDS: Docusate Sodium 100 MG Capsule 200 MG PO (09:12)
[2024-02-12] MEDS: Metoprolol Tartrate 25 MG Tablet PO (09:12)
[2024-02-12] MEDS: Lidocaine 5% Patch 1 PATCH TOPICAL (09:12)
--- NOTE | 2024-02-12 12:36 | PCM.PN.HOSP ---
Reason for Visit Reason for Visit: Diagnoses Nonrheumatic aortic (valve) stenosis (02/07/24) Longstanding persistent atrial fibrillation (02/07/24) Heart failure, unspecified (02/07/24) Other specified disorders of the male genital organs (02/07/24) Subjective Subjective No acute events overnight. Patient seen at bedside this morning. Was sitting up comfortably in bedside chair, no acute distress. Nurse was changing his leg dressings when I saw him. His legs look significantly less volume overloaded than on admission. Patient reports that his scrotum continues to be very swollen, only mildly improved from admission. He otherwise has been tolerating activity well around the room, denies any shortness of breath with exertion. Has been tolerating diuresis without issues. No other acute concerns this morning. Objective Data Objective Data Vital Signs: Vital Signs Temp Pulse Resp BP Pulse Ox O2 Del Method O2 Flow Rate 97.7 F L 84 16 110/57 L 94 Room Air 92 02/12/24 09:03 02/12/24 09:12 02/12/24 09:03 02/12/24 09:03 02/12/24 09:03 02/12/24 09:04 02/11/24 15:57 Oxygen Flow Rate (L/min) 92 Oxygen Delivery Method Room Air Weight: 122.9 kg Body Mass Index (BMI) 37.8 Intake & Output: Intake and Output for Last 24 Hours 02/10/24 02/11/24 02/12/24 23:59 23:59 23:59 Intake Total 885.98 / 885.98 739.32 / 739.32 Output Total 4950 / 4950 3250 / 3250 1700 / 1700 Balance -4064.02 / -4064.02 -2510.68 / -2510.68 -1700 / -1700 Lab / Micro Data 02/09/24 04:50 02/12/24 06:05 Labs: Laboratory Results - last 24 hr 02/12/24 06:05: PT 24.8 H, INR 2.3, Sodium 137, Potassium 3.5, Chloride 98, Carbon Dioxide 36.0 H, Anion Gap 3 L, BUN 15, Creatinine 0.99, Estim Creat Clear Calc 87.35, Est GFR (MDRD) Af Amer 95, Est GFR (MDRD) Non-Af 78, BUN/Creatinine Ratio 15.1, Glucose 98, Calcium 9.6 Micro: Microbiology 02/07/24 18:44 Stool Stool Occult Blood (JONATHAN) - Final Occult Blood Positive Rhythm Strip Rhythm Strip: A-fib Rate: 84 Ectopy: None Physical Exam Const alert, oriented x3 and no apparent distress Constitutional Narrative: Elderly male, morbidly obese, sitting up comfortably in bedside, conversing normally, no acute distress. General Appearance: cooperative and comfortable HEENT normocephalic, head/scalp atraumatic, hearing grossly normal bilaterally, nasal mucous membranes and turbinates normal and moist oral mucous membranes Eyes PERRL, EOMs intact bilaterally and conjunctivae normal Neck full ROM Chest inspection of chest normal Resp normal respiratory effort, normal air movement, no use of accessory muscles and clear to auscultation bilaterally Cardio regular rate, regular rhythm, no murmurs and peripheral pulses 2+ throughout GI normal to inspection, nondistended, normoactive bowel sounds, soft to palpation, non-tender and non-distended Narrative: Severe scrotal edema noted, mildly improved from admission. Catheter in place, draining clear pale yellow urine. No suprapubic tenderness noted. Back/Spine normal ROM Extremity full ROM Extremity Narrative: Lymphedematous changes noted in lower extremities bilaterally. Lower extremity swelling improved from admission. Ulcers on right lateral gregorio and left lower leg evaluated on 02/11, noninfectious appearing, stable from previous. Neuro moves all extremities and no focal motor deficits Speech: speech normal Psych mental status grossly normal Assessment & Plan Assessment/Plan (1) CHF exacerbation: (2) Scrotal edema: PLAN: Plan Patient is a 73-year-old male who presented to [facility] ED on 02/07/2024 with worsening lower extremity edema and scrotal edema. 1. Acute HFpEF, moderate pulmonary hypertension ? Presumed secondary to nonadherence to home Lasix. Marked lower extremity edema and scrotal edema on admission. Noted to be approximate 10 kg heavier than on last hospitalization back in 2021. BNP 974. Chest x-ray showed vascular congestion with small left-sided effusion. Patient reported dyspnea on exertion but notably with good oxygen saturations on room air at rest on admission. ? Last echo on 09/07/2022 showed EF 60%, normal LV function, no diastolic dysfunction noted, no regional wall motion abnormalities. ? Repeat echo on 02/07 shows EF 65 to 70%, concentric LV hypertrophy, moderately enlarged LA, mildly enlarged RA, normal RV size and function, moderate to severe aortic stenosis. ? Cardiology evaluated on 02/08. Noted that aortic stenosis is a newer finding and likely need to be further evaluated with a heart cath but this can be done on an outpatient basis. Recommended continued diuresis, signed off. ? Continue Lasix drip at 10 ml/hr. Continues to have great urine output and kidney function remains stable. Continue to monitor daily BMP and urine output. Continue home Lopressor and lisinopril. 2. BPH with obstructive symptoms ? Patient on home terazosin. Noted worsening urinary frequency with significant hesitation and difficulty with emptying his bladder for 1 to 2 months prior to this admission. ? Lima catheter placed in the ED, can continue for now as patient remains on Lasix drip. Continue tamsulosin. Will plan to discontinue Lima with void trial prior to discharge. 3. Debility ? PT/OT/case management following. Patient qualifies for home health care but is currently declining as he has had home health care services in the past and does not feel like he needs them after this discharge. 4. Scrotal edema ? Presumed secondary to volume overload from CHF exacerbation. Treated with IV diuresis as noted above. No clinical evidence of scrotal infection. Elevate scrotum as able. 5. Venous stasis ulcers ? No evidence of infection at this time. Wound care consulted. 6. Aortic stenosis ? Echo on admit showed moderate to severe aortic valve stenosis with peak gradient 82 mmHg, mean gradient 45 mmHg. No aortic stenosis noted on last echo in 2021. Cardiology evaluated, recs as noted above. Chronic medical conditions: ? Morbid obesity: BMI 43 on admit. Complicates hospital course, care and prognosis. ? A-fib: Rate controlled. INR therapeutic on admission. Continue home Lopressor and warfarin. ? History of vertebral fractures with chronic back pain: Follows with Dr. Musa with pain management. On pain control at home with oxycodone and acetaminophen, continue these while inpatient. Lidocaine patch ordered as well. DVT prophylaxis: Warfarin CODE STATUS: Full code, verified Expected disposition: Home, 2 to 3 days Total clinical time spent by myself addressing the patient's medical issues, reviewing all the data, and collaborating with patient's care team: 35 minutes. Charges/Coding Visit Charges Inpatient E&M: 27259 Subs Hosp L2
[2024-02-12] MEDS: Furosemide 500 MG in Empty Viaflex 50 mL 1 EACH CONT INF (14:06)
--- NOTE | 2024-02-12 14:06 | WOUNDNOTE ---
wound photo: right lower leg
--- NOTE | 2024-02-12 14:07 | WOUNDNOTE ---
wound photo: left lower leg
--- NOTE | 2024-02-12 14:07 | WOUNDNOTE ---
wound photo: left lateral lower leg
--- NOTE | 2024-02-12 14:08 | WOUNDNOTE ---
wound photo: left great toe
--- NOTE | 2024-02-12 14:09 | WOUNDNOTE ---
wound photo: right lateral lower back
[2024-02-12] MEDS: Tamsulosin HCl 0.4 MG Capsule PO (17:54)
[2024-02-12] MEDS: Budesonide Respules 0.5 MG/2 ML AMPUL.NEB. INHALATION (19:25)
[2024-02-12] MEDS: Atorvastatin Calcium 10 MG Tablet 5 MG PO (20:52)
[2024-02-13] VITALS (7 sets, daily range): BP systolic 86–104; BP diastolic 56–74; PULSE 63–81; RESP 16–20; TEMP 36.5–36.7; O2SAT 94–97; BMI 38.2
[2024-02-13] MEDS: oxyCODONE 5 MG Tablet PO ×3 (03:05→20:32)
[2024-02-13] MEDS: Acetaminophen 500 MG Tablet 1000 MG PO ×3 (06:24→20:33)
[2024-02-13] MEDS: Nystatin Powder 15gm Bottle 1 APPLIC TOPICAL ×3 (06:25→20:34)
[2024-02-13] MEDS: Budesonide Respules 0.5 MG/2 ML AMPUL.NEB. INHALATION ×2 (06:58→23:01)
[2024-02-13 07:25] LABS: Hematocrit 36.8 % (40-54); Hemoglobin 11.8 g/dL (13.0-16.5); Mean Corp Hgb Conc 32.1 g/dL (32-36); Mean Corpuscular Hgb 28.4 pg (27.0-32.0); Mean Corpuscular Volume 88.5 fL (80-94); Mean Platelet Vol. 11.2 fl (6.2-12.0); Platelet Count 182 K/mm3 (150-450); RBC Distribution Width CV 16.8 % (11.6-14.6); RBC Distribution Width SD 54.2 fl (35.1-43.9); Red Blood Count 4.16 M/mm3 (4.6-6.2); White Blood Count 5.2 K/mm3 (4.4-11.0)
[2024-02-13] MEDS: Potassium Chloride Oral Tablet 20 MEQ PO ×2 (08:01→17:09)
[2024-02-13] MEDS: Metoprolol Tartrate 25 MG Tablet PO (08:05)
[2024-02-13] MEDS: Lidocaine 5% Patch 1 PATCH TOPICAL (08:06)
[2024-02-13 08:10] LABS: Anion Gap 5 (5-15); BUN 14 mg/dL (7-18); BUN/Creat Ratio 16.6 RATIO (10-20); Calcium,Total 9.7 mg/dL (8.5-10.1); Chloride 96 mmol/L (98-107); Creatinine, Serum 0.84 mg/dL (0.70-1.30); EST Glomerular Filtration Rate 95 mL/min (>60); Est Glom Filt Rate - Afr Amer 114 mL/min (>60); Estimated Creatinine Clearance 103.69 ml/min; Glucose 93 mg/dL (74-106); Potassium 3.5 mmol/L (3.5-5.1); Sodium Level 135 mmol/L (136-145)
--- NOTE | 2024-02-13 12:12 | PCM.PN.HOSP ---
Reason for Visit Reason for Visit: Diagnoses Nonrheumatic aortic (valve) stenosis (02/07/24) Longstanding persistent atrial fibrillation (02/07/24) Heart failure, unspecified (02/07/24) Other specified disorders of the male genital organs (02/07/24) Subjective Subjective No acute events overnight. Patient seen at bedside this morning. Patient reports right-sided abdominal lesions that been causing him pain during this admission, notes that they appeared scabbed initially and now have seemed to open up. Reports moderate to severe pain at times with these lesions. Patient otherwise has been tolerating continued diuresis without issues. Continues to have severe scrotal edema, similar to previous days. No other acute concerns this time. Objective Data Objective Data Vital Signs: Vital Signs Temp Pulse Resp BP Pulse Ox O2 Del Method O2 Flow Rate 97.9 F 81 18 104/74 94 Room Air 92 02/13/24 09:00 02/13/24 09:00 02/13/24 09:00 02/13/24 09:00 02/13/24 09:00 02/13/24 09:00 02/11/24 15:57 FiO2 21 02/12/24 19:25 Oxygen Flow Rate (L/min) 92 Oxygen Delivery Method Room Air Weight: 124.6 kg Body Mass Index (BMI) 38.2 Intake & Output: Intake and Output for Last 24 Hours 02/11/24 02/12/24 02/13/24 23:59 23:59 23:59 Intake Total 739.32 / 739.32 908.5 / 958.5 100 / 100 Output Total 3250 / 3250 4800 / 5300 1375 / 1375 Balance -2510.68 / -2510.68 -3891.5 / -4341.5 -1275 / -1275 Lab / Micro Data 02/13/24 06:45 02/13/24 06:45 Labs: Laboratory Results - last 24 hr 02/13/24 06:45: WBC 5.2, RBC 4.16 L, Hgb 11.8 L, Hct 36.8 L, MCV 88.5, MCH 28.4, MCHC 32.1, RDW Std Deviation 54.2 H, RDW Coeff of Medardo 16.8 H, Plt Count 182, MPV 11.2, Sodium 135 L, Potassium 3.5, Chloride 96 L, Carbon Dioxide 34.0 H, Anion Gap 5, BUN 14, Creatinine 0.84, Estim Creat Clear Calc 103.69, Est GFR (MDRD) Af Amer 114, Est GFR (MDRD) Non-Af 95, BUN/Creatinine Ratio 16.6, Glucose 93, Calcium 9.7 Micro: Microbiology 02/07/24 18:44 Stool Stool Occult Blood (JONATHAN) - Final Occult Blood Positive Rhythm Strip Rhythm Strip: A-fib Rate: 84 Ectopy: None Physical Exam Const alert, oriented x3 and no apparent distress Constitutional Narrative: Elderly male, morbidly obese, sitting up comfortably in bedside, conversing normally, no acute distress. General Appearance: cooperative and comfortable HEENT normocephalic, head/scalp atraumatic, hearing grossly normal bilaterally, nasal mucous membranes and turbinates normal and moist oral mucous membranes Eyes PERRL, EOMs intact bilaterally and conjunctivae normal Neck full ROM Chest inspection of chest normal Resp normal respiratory effort, normal air movement, no use of accessory muscles and clear to auscultation bilaterally Cardio regular rate, regular rhythm, no murmurs and peripheral pulses 2+ throughout GI normal to inspection, nondistended, normoactive bowel sounds, soft to palpation, non-tender and non-distended Narrative: Severe scrotal edema noted, mildly improved from admission. Catheter in place, draining clear pale yellow urine. No suprapubic tenderness noted. Back/Spine normal ROM Extremity full ROM Extremity Narrative: Lymphedematous changes noted in lower extremities bilaterally. Lower extremity swelling improved from admission. Ulcers on right lateral gregorio and left lower leg evaluated on 02/11, noninfectious appearing, stable from previous. Skin Skin Narrative: Right lateral lower back lesions noted. Fairly large and red in appearance, with one of the wounds appearing open. Appears to possibly be following a dermatomal distribution. Neuro moves all extremities and no focal motor deficits Speech: speech normal Psych mental status grossly normal Assessment & Plan Assessment/Plan (1) CHF exacerbation: (2) Scrotal edema: PLAN: Plan Patient is a 73-year-old male who presented to [facility] ED on 02/07/2024 with worsening lower extremity edema and scrotal edema. 1. Acute HFpEF, moderate pulmonary hypertension Presumed secondary to nonadherence to home Lasix. Marked lower extremity edema and scrotal edema on admission. Noted to be approximate 10 kg heavier than on last hospitalization back in 2021. BNP 974. Chest x-ray showed vascular congestion with small left-sided effusion. Patient reported dyspnea on exertion but notably with good oxygen saturations on room air at rest on admission. Last echo on 09/07/2022 showed EF 60%, normal LV function, no diastolic dysfunction noted, no regional wall motion abnormalities. Repeat echo on 02/07 shows EF 65 to 70%, concentric LV hypertrophy, moderately enlarged LA, mildly enlarged RA, normal RV size and function, moderate to severe aortic stenosis. Cardiology evaluated on 02/08, noted that the aortic stenosis is a newer finding and likely need to be further evaluated with a heart cath but this can be done on an outpatient basis. Recommended continued diuresis and signed off. ? Continues to have very good urine output and kidney function remained stable. Lasix drip increased to 20 ml/hr on 02/12. Continue to monitor daily BMP and urine output. Continue home Lopressor and lisinopril. 2. BPH with obstructive symptoms Patient on home terazosin. Noted worsening urinary frequency with significant hesitation and difficulty with emptying his bladder for 1 to 2 months prior to this admission. ? Lima catheter placed in the ED, can continue for now as patient remains on Lasix drip. Continue tamsulosin. Will plan to discontinue Lima with void trial prior to discharge. 3. Debility ? PT/OT/case management following. Patient qualifies for home health care but is currently declining as he has had home health care services in the past and does not feel like he needs them after this discharge. 4. Scrotal edema ? Presumed secondary to volume overload from CHF exacerbation. Treating with IV diuresis as noted above. No clinical evidence of scrotal infection. Elevate scrotum as able. 5. Venous stasis ulcers ? No evidence of infection at this time. Wound care following 6. Aortic stenosis ? Echo on admit showed moderate to severe aortic valve stenosis with peak gradient 82 mmHg, mean gradient 45 mmHg. No aortic stenosis noted on last echo in 2021. Cardiology evaluated, recs as noted above. 7. Right lower back lesions concerning for shingles ? Patient noted to have worsening right lower back lesions with moderate to severe pain with them on 02/12. Does seem to follow dermatomal distribution, have concern for shingles. Unfortunately there is no testing available for shingles in our hospital. Will empirically treat with acyclovir 800 mg 4 times daily for 7 days. Chronic medical conditions: ? Morbid obesity: BMI 43 on admit. Complicates hospital course, care and prognosis. ? A-fib: Rate controlled. INR therapeutic on admission. Continue home Lopressor and warfarin. ? History of vertebral fractures with chronic back pain: Follows with Dr. Musa with pain management. On pain control at home with oxycodone and acetaminophen, continue these while inpatient. Lidocaine patch ordered as well. DVT prophylaxis: Warfarin CODE STATUS: Full code, verified Expected disposition: Home, 2 to 3 days Total clinical time spent by myself addressing the patient's medical issues, reviewing all the data, and collaborating with patient's care team: 35 minutes. Charges/Coding Visit Charges Inpatient E&M: 36468 Subs Hosp L2
[2024-02-13] MEDS: Acyclovir 800 MG Tablet PO ×3 (13:52→20:32)
[2024-02-13] MEDS: Tamsulosin HCl 0.4 MG Capsule PO (17:09)
[2024-02-13] MEDS: Atorvastatin Calcium 10 MG Tablet 5 MG PO (20:33)
[2024-02-13] MEDS: Albuterol 2.5 MG/3 ML VIAL.NEB. INHALATION (23:01)
[2024-02-14] VITALS (12 sets, daily range): BP systolic 80–103; BP diastolic 39–63; PULSE 65–94; RESP 16–18; TEMP 36.4–36.9; O2SAT 93–94; BMI 34.7
[2024-02-14] MEDS: oxyCODONE 5 MG Tablet PO ×5 (00:29→22:16)
[2024-02-14] MEDS: Furosemide 500 MG in Empty Viaflex 50 mL 1 EACH CONT INF (00:29)
[2024-02-14] MEDS: Acetaminophen 500 MG Tablet 1000 MG PO ×3 (04:36→22:12)
[2024-02-14] MEDS: Nystatin Powder 15gm Bottle 1 APPLIC TOPICAL ×3 (04:37→22:13)
[2024-02-14] MEDS: Budesonide Respules 0.5 MG/2 ML AMPUL.NEB. INHALATION ×2 (06:56→19:42)
[2024-02-14 07:39] LABS: Anion Gap 4 (5-15); BUN 15 mg/dL (7-18); BUN/Creat Ratio 16.4 RATIO (10-20); Calcium,Total 9.2 mg/dL (8.5-10.1); Chloride 95 mmol/L (98-107); Creatinine, Serum 0.91 mg/dL (0.70-1.30); EST Glomerular Filtration Rate 86 mL/min (>60); Est Glom Filt Rate - Afr Amer 104 mL/min (>60); Glucose 101 mg/dL (74-106); Potassium 3.4 mmol/L (3.5-5.1); Sodium Level 135 mmol/L (136-145)
[2024-02-14] MEDS: Potassium Chloride Oral Tablet 20 MEQ PO ×2 (08:56→16:51)
[2024-02-14] MEDS: Acyclovir 800 MG Tablet PO ×4 (08:56→22:11)
[2024-02-14] MEDS: Lidocaine 5% Patch 1 PATCH TOPICAL (08:57)
[2024-02-14] MEDS: Docusate Sodium 100 MG Capsule 200 MG PO (08:57)
--- NOTE | 2024-02-14 12:22 | PCM.PN.HOSP ---
Reason for Visit Reason for Visit: Diagnoses Nonrheumatic aortic (valve) stenosis (02/07/24) Longstanding persistent atrial fibrillation (02/07/24) Heart failure, unspecified (02/07/24) Other specified disorders of the male genital organs (02/07/24) Subjective Subjective No acute events overnight. Patient did have hypotension to the 80s over 40s this morning per nursing staff. Patient was sitting at bed at the time and denied any symptoms with this. Saw patient at the bedside later in the morning. He was sitting up comfortably in bed, conversing normally, in no acute distress. Appeared similar to previous days. He stated that his right low back pain at the site with lesions concerning for shingles feels improved today. He denies feeling significantly dry today, feels similar to previous days. No other acute concerns. Objective Data Objective Data Vital Signs: Vital Signs Temp Pulse Resp BP Pulse Ox O2 Del Method O2 Flow Rate 98.3 F 74 18 84/52 L 94 Room Air 92 02/14/24 10:32 02/14/24 10:32 02/14/24 10:32 02/14/24 10:32 02/14/24 10:32 02/14/24 10:32 02/11/24 15:57 FiO2 21 02/12/24 19:25 Oxygen Flow Rate (L/min) 92 Oxygen Delivery Method Room Air Weight: 112.9 kg Body Mass Index (BMI) 34.7 Intake & Output: Intake and Output for Last 24 Hours 02/12/24 02/13/24 02/14/24 23:59 23:59 23:59 Intake Total 908.5 / 958.5 124.13 / 174.13 70.5 / 70.5 Output Total 4800 / 5300 2875 / 4075 1200 / 1200 Balance -3891.5 / -4341.5 -2750.87 / -3900.87 -1129.5 / -1129.5 Lab / Micro Data 02/13/24 06:45 02/14/24 06:55 Labs: Laboratory Results - last 24 hr 02/14/24 06:55: Sodium 135 L, Potassium 3.4 L, Chloride 95 L, Carbon Dioxide 36.0 H, Anion Gap 4 L, BUN 15, Creatinine 0.91, Estim Creat Clear Calc 91.00, Est GFR (MDRD) Af Amer 104, Est GFR (MDRD) Non-Af 86, BUN/Creatinine Ratio 16.4, Glucose 101, Calcium 9.2 Micro: Microbiology 02/07/24 18:44 Stool Stool Occult Blood (JONATHAN) - Final Occult Blood Positive Rhythm Strip Rhythm Strip: A-fib Rate: 84 Ectopy: None Physical Exam Const alert, oriented x3 and no apparent distress Constitutional Narrative: Elderly male, morbidly obese, sitting up comfortably in bedside, conversing normally, no acute distress. General Appearance: cooperative and comfortable HEENT normocephalic, head/scalp atraumatic, hearing grossly normal bilaterally, nasal mucous membranes and turbinates normal and moist oral mucous membranes Eyes PERRL, EOMs intact bilaterally and conjunctivae normal Neck full ROM Chest inspection of chest normal Resp normal respiratory effort, normal air movement, no use of accessory muscles and clear to auscultation bilaterally Cardio regular rate, regular rhythm, no murmurs and peripheral pulses 2+ throughout GI normal to inspection, nondistended, normoactive bowel sounds, soft to palpation, non-tender and non-distended Narrative: Severe scrotal edema noted, mildly improved from admission. Catheter in place, draining clear pale yellow urine. No suprapubic tenderness noted. Back/Spine normal ROM Extremity full ROM Extremity Narrative: Lymphedematous changes noted in lower extremities bilaterally. Lower extremity swelling improved from admission. Ulcers on right lateral gregorio and left lower leg evaluated on 02/11, noninfectious appearing, stable from previous. Skin Skin Narrative: Right lateral lower back lesions noted on 02/11. Fairly large and red in appearance, with one of the wounds appearing open. Appears to possibly be following a dermatomal distribution. Neuro moves all extremities and no focal motor deficits Speech: speech normal Psych mental status grossly normal Assessment & Plan Assessment/Plan (1) CHF exacerbation: (2) Scrotal edema: PLAN: Plan Patient is a 73-year-old male who presented to [facility] ED on 02/07/2024 with worsening lower extremity edema and scrotal edema. 1. Acute HFpEF, moderate pulmonary hypertension Presumed secondary to nonadherence to home Lasix. Marked lower extremity edema and scrotal edema on admission. Noted to be approximate 10 kg heavier than on last hospitalization back in 2021. BNP 974. Chest x-ray showed vascular congestion with small left-sided effusion. Patient reported dyspnea on exertion but notably with good oxygen saturations on room air at rest on admission. Last echo on 09/07/2022 showed EF 60%, normal LV function, no diastolic dysfunction noted, no regional wall motion abnormalities. Repeat echo on 02/07 shows EF 65 to 70%, concentric LV hypertrophy, moderately enlarged LA, mildly enlarged RA, normal RV size and function, moderate to severe aortic stenosis. Cardiology evaluated on 02/08, noted that the aortic stenosis is a newer finding and likely need to be further evaluated with a heart cath but this can be done on an outpatient basis. Recommended continued diuresis and signed off. ? Transition from Lasix drip to IV Lasix 40 mg twice daily on 02/13 due to borderline hypotension. Creatinine remains fairly stable, will continue IV diuresis through tomorrow. Continue to monitor BMP and urine output. Hoping to transition to p.o. Lasix tomorrow with possible plan for discharge on Monday. Continue home Lopressor and lisinopril. 2. BPH with obstructive symptoms Patient on home terazosin. Noted worsening urinary frequency with significant hesitation and difficulty with emptying his bladder for 1 to 2 months prior to this admission. ? Lima catheter placed in the ED, can continue for now as patient remains on IV lasix. Continue tamsulosin. Will plan to discontinue Lima tomorrow for void trial. 3. Debility ? PT/OT/case management following. Patient qualifies for home health care but is currently declining as he has had home health care services in the past and does not feel like he needs them after this discharge. 4. Scrotal edema ? Presumed secondary to volume overload from CHF exacerbation. Treating with IV diuresis as noted above. No clinical evidence of scrotal infection. Elevate scrotum as able. 5. Venous stasis ulcers ? No evidence of infection at this time. Wound care following. 6. Aortic stenosis ? Echo on admit showed moderate to severe aortic valve stenosis with peak gradient 82 mmHg, mean gradient 45 mmHg. No aortic stenosis noted on last echo in 2021. Cardiology evaluated, recs as noted above. 7. Right lower back lesions concerning for shingles ? Patient noted to have worsening right lower back lesions with moderate to severe pain with them on 02/12. Does seem to follow dermatomal distribution, have concern for shingles. Unfortunately there is no testing available for shingles in our hospital. Will empirically treat with acyclovir 800 mg 4 times daily for 7 days. Chronic medical conditions: ? Morbid obesity: BMI 43 on admit. Complicates hospital course, care and prognosis. ? A-fib: Rate controlled. INR therapeutic on admission. Continue home Lopressor and warfarin. ? History of vertebral fractures with chronic back pain: Follows with Dr. Musa with pain management. On pain control at home with oxycodone and acetaminophen, continue these while inpatient. Lidocaine patch ordered as well. DVT prophylaxis: Warfarin CODE STATUS: Full code, verified Expected disposition: Home, 2 to 3 days Total clinical time spent by myself addressing the patient's medical issues, reviewing all the data, and collaborating with patient's care team: 35 minutes. Charges/Coding Visit Charges Inpatient E&M: 93778 Subs Hosp L2
[2024-02-14] MEDS: Tamsulosin HCl 0.4 MG Capsule PO (16:52)
[2024-02-14] MEDS: Metoprolol Tartrate 25 MG Tablet PO (22:10)
[2024-02-14] MEDS: Furosemide 40 MG/4 ML Vial IV (22:10)
[2024-02-14] MEDS: Atorvastatin Calcium 10 MG Tablet 5 MG PO (22:11)
[2024-02-15] VITALS (9 sets, daily range): BP systolic 81–128; BP diastolic 50–69; PULSE 53–97; RESP 16–18; TEMP 36.2–36.8; O2SAT 93–100; BMI 34.0
[2024-02-15] MEDS: Nystatin Powder 15gm Bottle 1 APPLIC TOPICAL ×3 (05:20→21:11)
[2024-02-15] MEDS: Acetaminophen 500 MG Tablet 1000 MG PO ×3 (05:21→21:13)
[2024-02-15] MEDS: oxyCODONE 5 MG Tablet PO ×4 (05:25→21:10)
[2024-02-15 06:50] LABS: Anion Gap 6 (5-15); BUN 19 mg/dL (7-18); Calcium,Total 8.8 mg/dL (8.5-10.1); Chloride 98 mmol/L (98-107); EST Glomerular Filtration Rate 78 mL/min (>60); Est Glom Filt Rate - Afr Amer 94 mL/min (>60); Estimated Creatinine Clearance 81.97 ml/min; Glucose 106 mg/dL (74-106); Potassium 3.6 mmol/L (3.5-5.1); Sodium Level 136 mmol/L (136-145)
[2024-02-15] MEDS: Budesonide Respules 0.5 MG/2 ML AMPUL.NEB. INHALATION ×2 (07:27→18:59)
[2024-02-15] MEDS: Docusate Sodium 100 MG Capsule 200 MG PO (09:33)
[2024-02-15] MEDS: Potassium Chloride Oral Tablet 20 MEQ PO ×2 (09:33→17:14)
[2024-02-15] MEDS: Acyclovir 800 MG Tablet PO ×4 (09:33→21:13)
[2024-02-15] MEDS: Lidocaine 5% Patch 1 PATCH TOPICAL (11:14)
[2024-02-15] MEDS: Metoprolol Tartrate 25 MG Tablet PO ×2 (11:15→21:11)
[2024-02-15] MEDS: Furosemide 40 MG Tablet PO (11:15)
--- NOTE | 2024-02-15 12:31 | PCM.PN.HOSP ---
Reason for Visit Reason for Visit: Diagnoses Nonrheumatic aortic (valve) stenosis (02/07/24) Longstanding persistent atrial fibrillation (02/07/24) Heart failure, unspecified (02/07/24) Other specified disorders of the male genital organs (02/07/24) Subjective Subjective No acute events overnight. Patient seen at bedside this morning. Sitting up comfortably in bedside chair, conversing normally, no acute distress. Reports feeling similar to previous days. Patient did have his Lima catheter removed this morning for void trial and has voided several times since then. Had some difficulty getting to the bathroom in the room due to his baseline debility and now has external catheter in place and is tolerating this without issue. States that his scrotal edema does feel moderately improved from admission now. No other acute concerns this morning. Objective Data Objective Data Vital Signs: Vital Signs Temp Pulse Resp BP Pulse Ox O2 Del Method O2 Flow Rate 97.2 F L 60 16 99/68 100 Room Air 92 02/15/24 11:09 02/15/24 11:15 02/15/24 11:09 02/15/24 11:15 02/15/24 11:09 02/15/24 11:09 02/11/24 15:57 FiO2 21 02/12/24 19:25 Oxygen Flow Rate (L/min) 92 Oxygen Delivery Method Room Air Weight: 110.6 kg Body Mass Index (BMI) 34.0 Intake & Output: Intake and Output for Last 24 Hours 02/13/24 02/14/24 02/15/24 23:59 23:59 23:59 Intake Total 124.13 / 174.13 370.5 / 370.5 250 / 250 Output Total 2875 / 4075 2635 / 2635 500 / 500 Balance -2750.87 / -3900.87 -2264.5 / -2264.5 -250 / -250 Lab / Micro Data 02/13/24 06:45 02/15/24 06:05 Labs: Laboratory Results - last 24 hr 02/15/24 06:05: Sodium 136, Potassium 3.6, Chloride 98, Carbon Dioxide 32.0, Anion Gap 6, BUN 19 H, Creatinine 1.00, Estim Creat Clear Calc 81.97, Est GFR (MDRD) Af Amer 94, Est GFR (MDRD) Non-Af 78, BUN/Creatinine Ratio 19.0, Glucose 106, Calcium 8.8 Micro: Microbiology 02/07/24 18:44 Stool Stool Occult Blood (JONATHAN) - Final Occult Blood Positive Rhythm Strip Rhythm Strip: A-fib Rate: 84 Ectopy: None Physical Exam Const alert, oriented x3 and no apparent distress Constitutional Narrative: Elderly male, morbidly obese, sitting up comfortably in bedside, conversing normally, no acute distress. General Appearance: cooperative and comfortable HEENT normocephalic, head/scalp atraumatic, hearing grossly normal bilaterally, nasal mucous membranes and turbinates normal and moist oral mucous membranes Eyes PERRL, EOMs intact bilaterally and conjunctivae normal Neck full ROM Chest inspection of chest normal Resp normal respiratory effort, normal air movement, no use of accessory muscles and clear to auscultation bilaterally Cardio regular rate, regular rhythm, no murmurs and peripheral pulses 2+ throughout GI normal to inspection, nondistended, normoactive bowel sounds, soft to palpation, non-tender and non-distended Narrative: Scrotal edema moderately improved from admission. Catheter removed on 02/14, external catheter in place, draining clear pale yellow urine. No suprapubic tenderness noted. Back/Spine normal ROM Extremity full ROM Extremity Narrative: Lymphedematous changes noted in lower extremities bilaterally. Lower extremity swelling improved from admission. Ulcers on right lateral gregorio and left lower leg evaluated on 02/11, noninfectious appearing, stable from previous. Skin Skin Narrative: Right lateral lower back lesions noted on 02/11. Fairly large and red in appearance, with one of the wounds appearing open. Appears to possibly be following a dermatomal distribution. Stable. Neuro moves all extremities and no focal motor deficits Speech: speech normal Psych mental status grossly normal Assessment & Plan Assessment/Plan (1) CHF exacerbation: (2) Scrotal edema: PLAN: Plan Patient is a 73-year-old male who presented to [facility] ED on 02/07/2024 with worsening lower extremity edema and scrotal edema. 1. Acute HFpEF, moderate pulmonary hypertension Presumed secondary to nonadherence to home Lasix. Marked lower extremity edema and scrotal edema on admission. Noted to be approximate 10 kg heavier than on last hospitalization back in 2021. BNP 974. Chest x-ray showed vascular congestion with small left-sided effusion. Patient reported dyspnea on exertion but notably with good oxygen saturations on room air at rest on admission. Last echo on 09/07/2022 showed EF 60%, normal LV function, no diastolic dysfunction noted, no regional wall motion abnormalities. Repeat echo on 02/07 shows EF 65 to 70%, concentric LV hypertrophy, moderately enlarged LA, mildly enlarged RA, normal RV size and function, moderate to severe aortic stenosis. Cardiology evaluated on 02/08, noted that the aortic stenosis is a newer finding and likely need to be further evaluated with a heart cath but this can be done on an outpatient basis. Recommended continued diuresis and signed off. ? Treated with Lasix drip til 02/13 with good urine output and symptomatic improvement. De-escalated to p.o. Lasix 40 mg daily on 02/14. If remains stable, will plan to discharge patient on this dose tomorrow. Continue to monitor daily BMP and urine output. Continue home Lopressor and lisinopril. 2. BPH with obstructive symptoms Patient on home terazosin. Noted worsening urinary frequency with significant hesitation and difficulty with emptying his bladder for 1 to 2 months prior to this admission. ? Lima catheter placed in the ED, remained in place till 02/14 as patient was on IV Lasix. Lima catheter removed on 02/14, patient passed voiding trial. Continue home tamsulosin. 3. Debility ? PT/OT/case management following. Patient qualifies for home health care and initially declined needing their services, however now requesting home health services given his lower extremity wounds and difficulty changing these on his own. Will continue to follow. 4. Scrotal edema, improving ? Presumed secondary to volume overload from CHF exacerbation. Diuresed as noted above with moderate improvement. No clinical evidence of scrotal infection. Elevate scrotum as able. 5. Venous stasis ulcers ? No evidence of infection at this time. Wound care following. 6. Aortic stenosis ? Echo on admit showed moderate to severe aortic valve stenosis with peak gradient 82 mmHg, mean gradient 45 mmHg. No aortic stenosis noted on last echo in 2021. Cardiology evaluated, recs as noted above. 7. Right lower back lesions concerning for shingles ? Patient noted to have worsening right lower back lesions with moderate to severe pain with them on 02/12. Does seem to follow dermatomal distribution, have concern for shingles. Unfortunately there is no testing available for shingles in our hospital. Treating empirically with acyclovir 800 mg 4 times daily for 7 days, stop date 02/18. Chronic medical conditions: ? Morbid obesity: BMI 43 on admit. Complicates hospital course, care and prognosis. ? A-fib: Rate controlled. INR therapeutic on admission. Continue home Lopressor and warfarin. ? History of vertebral fractures with chronic back pain: Follows with Dr. Musa with pain management. On pain control at home with oxycodone and acetaminophen, continue these while inpatient. Lidocaine patch ordered as well. DVT prophylaxis: Warfarin CODE STATUS: Full code, verified Expected disposition: Home with home health care, 1 to 2 days Total clinical time spent by myself addressing the patient's medical issues, reviewing all the data, and collaborating with patient's care team: 35 minutes. Charges/Coding Visit Charges Inpatient E&M: 31185 Subs Hosp L2
--- NOTE | 2024-02-15 16:29 | CASEMGMT ---
TEODORO HARVEY updated that patient is interested in HHC for longterm for wound care. TEODORO HARVEY in to discuss HHC at discharge. Patient states that he would like nursing to help with wound care. TEODORO HARVEY explained to patient that nursing will not come to patient's home everyday to complete wound care. TEODORO HARVEY informed patient that HHC may come 1-2 times per week and will teach family to complete wound care. Patient states that is son is already helping with wound care and stated never mind to HHC. TEODORO HARVEY told patient to think about it and will follow-up again tomorrow. Patient voiced understanding. CM will continue to follow this patient and plan for a safe discharge.
[2024-02-15] MEDS: Tamsulosin HCl 0.4 MG Capsule PO (17:14)
[2024-02-15 18:10] LABS: International Normalized Ratio 1.9
[2024-02-15] MEDS: Albuterol 2.5 MG/3 ML VIAL.NEB. INHALATION (18:59)
[2024-02-15] MEDS: Atorvastatin Calcium 10 MG Tablet 5 MG PO (21:11)
[2024-02-16 03:36] VITALS: BP 90/57; PULSE 70; RESP 16; TEMP 36.8; O2SAT 94
[2024-02-16] MEDS: oxyCODONE 5 MG Tablet PO ×3 (03:42→12:37)
[2024-02-16 05:30] VITALS: BP 113/67; PULSE 75; RESP 16; TEMP 36.8; O2SAT 96
[2024-02-16] MEDS: Nystatin Powder 15gm Bottle 1 APPLIC TOPICAL (05:35)
[2024-02-16] MEDS: Acetaminophen 500 MG Tablet 1000 MG PO ×2 (05:36→14:26)
[2024-02-16 06:00] VITALS: BMI 33.3
[2024-02-16 08:18] LABS: Anion Gap 4 (5-15); BUN 22 mg/dL (7-18); BUN/Creat Ratio 25.5 RATIO (10-20); Calcium,Total 8.8 mg/dL (8.5-10.1); Chloride 100 mmol/L (98-107); Creatinine, Serum 0.86 mg/dL (0.70-1.30); EST Glomerular Filtration Rate 92 mL/min (>60); Est Glom Filt Rate - Afr Amer 111 mL/min (>60); Estimated Creatinine Clearance 94.33 ml/min; Glucose 103 mg/dL (74-106); Potassium 3.8 mmol/L (3.5-5.1); Sodium Level 135 mmol/L (136-145)
[2024-02-16 08:26] VITALS: BP 95/55; PULSE 64; RESP 16; TEMP 36.2; O2SAT 95
[2024-02-16] MEDS: Docusate Sodium 100 MG Capsule 200 MG PO (08:35)
[2024-02-16] MEDS: Furosemide 40 MG Tablet PO (08:35)
[2024-02-16] MEDS: Potassium Chloride Oral Tablet 20 MEQ PO (08:35)
[2024-02-16] MEDS: Lidocaine 5% Patch 1 PATCH TOPICAL (08:35)
[2024-02-16 08:36] VITALS: BP 95/55; PULSE 64
[2024-02-16] MEDS: Metoprolol Tartrate 25 MG Tablet PO (08:36)
[2024-02-16] MEDS: Acyclovir 800 MG Tablet PO ×2 (08:37→14:26)
--- NOTE | 2024-02-16 10:42 | DCINST_ITS ---
Discharge Instructions Diet Discharge Diet: No restrictions Activity Discharge Activity: No Restrictions Weight Bearing Status: Full weight bearing Follow Up Care Test Results: Test results from this visit will be discussed in further detail at your follow- up appointment, if applicable. Discharge Plan Admission Admit Date/Time: 02/07/24 19:38 Primary Reason for Your Visit: Worsening volume overload with scrotal edema Attending Provider: Bharat Wilkins Primary Care Provider: [facility],[place] Consulting Providers: Aj Randolph; Osiris Yip; Bharat Wilkins; Brady Kemp Discharge Orders/Prescriptions Prescriptions: No Action simvastatin 10 mg Tablet 10 mg PO QHS terazosin 2 mg Capsule 2 mg PO QHS lisinopril 10 mg Tablet 10 mg PO QHS Hold Instructions: Until follow-up with outpatient primary care physician to reassess blood pressure warfarin 5 mg Tablet 5 mg PO DAILY Hold Instructions: Until instructed to reinitiate after follow-up INR metoprolol tartrate 25 mg Tablet 25 mg PO BID lidocaine 5 % Adhesive Patch,Medicated 1 patch topical DAILY Qty: 15 0RF Protocol: *Topical Application Instructions APPLICATION INSTRUCTIONS: To the painful area and back oxycodone 5 mg Tablet 10 mg PO Q8H PRN (Reason: pain) 7 Days Qty: 30 0RF furosemide [Lasix] 20 mg Tablet 20 mg PO DAILY Qty: 20 0RF Rx Instructions: Take as needed for lower extremity swelling oxycodone 10 mg tablet 10 mg PO Q8H PRN (Reason: pain) 7 Days Qty: 21 0RF acetaminophen 500 mg Tablet 1,000 mg PO Q8 PRN (Reason: pain) Rx Instructions: Do not exceed 1000 mg 3 times a day Stiolto Respimat 2.5-2.5 mcg/actuation mist 1 puff inhalation BID albuterol sulfate 90 mcg/actuation HFA aerosol inhaler 1 puff inhalation Q4H PRN (Reason: SOB) Referrals / Follow Up: Osbaldo Laird MD [Med Staff - Active Staff] - 02/23/24 2:15 pm [facility],[place] [Primary Care Provider] -
--- NOTE | 2024-02-16 10:42 | PCM.DC ---
Discharge Instructions Diet Discharge Diet: No restrictions Activity Discharge Activity: No Restrictions Weight Bearing Status: Full weight bearing Follow Up Care Test Results: Test results from this visit will be discussed in further detail at your follow-up appointment, if applicable. Discharge Plan Admission Admit Date/Time: 02/07/24 19:38 Primary Reason for Your Visit: Worsening volume overload with scrotal edema Attending Provider: Bharat Wilkins Primary Care Provider: [facility],[place] Consulting Providers: Aj Randolph; Osiris Yip; Bharat Wilkins; Brady Kemp Discharge Orders/Prescriptions Prescriptions: New furosemide 40 mg Tablet 40 mg PO DAILY 30 Days Qty: 30 2RF acyclovir 800 mg Tablet 800 mg PO 4X/DAY 5 Days Qty: 20 0RF oxycodone 5 mg Tablet 5 mg PO Q6H PRN PRN (Reason: Pain Score 4-10) 7 Days Qty: 28 0RF potassium chloride 20 mEq Tablet,Er Particles/Crystals 20 meq PO DAILY 30 Days Qty: 30 2RF Continued simvastatin 10 mg Tablet 10 mg PO QHS terazosin 2 mg Capsule 2 mg PO QHS warfarin 5 mg Tablet 5 mg PO DAILY Hold Instructions: Until instructed to reinitiate after follow-up INR metoprolol tartrate 25 mg Tablet 25 mg PO BID lidocaine 5 % Adhesive Patch,Medicated 1 patch topical DAILY Qty: 15 0RF Protocol: *Topical Application Instructions APPLICATION INSTRUCTIONS: To the painful area and back Stiolto Respimat 2.5-2.5 mcg/actuation mist 1 puff inhalation BID albuterol sulfate 90 mcg/actuation HFA aerosol inhaler 1 puff inhalation Q4H PRN (Reason: SOB) acetaminophen 500 mg Tablet 1,000 mg PO Q8 30 Days Qty: 180 0RF Rx Instructions: Do not exceed 1000 mg 3 times a day Discontinued lisinopril 10 mg Tablet 10 mg PO QHS Hold Instructions: Until follow-up with outpatient primary care physician to reassess blood pressure oxycodone 5 mg Tablet 10 mg PO Q8H PRN (Reason: pain) 7 Days Qty: 30 0RF furosemide [Lasix] 20 mg Tablet 20 mg PO DAILY Qty: 20 0RF Rx Instructions: Take as needed for lower extremity swelling oxycodone 10 mg tablet 10 mg PO Q8H PRN (Reason: pain) 7 Days Qty: 21 0RF Referrals / Follow Up: Osbaldo Laird MD [Med Staff - Active Staff] - 02/23/24 2:15 pm [facility] [Primary [facility] - Disposition Disposition (needs filled in before D/C Order can be placed): Home, Self Care
--- NOTE | 2024-02-16 10:53 | PCM.DC.SUM ---
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 Routine Comment: 02/08/24 17:24 Consult: Cardiology Routine Consulting Provider: Osiris Yip Reason for Consult: HFpEF exacerbation, new mod to severe EMERGENT Consult: No MD Notified: Yes Date Notified: 02/08/24 Time Notified: 17:24 Method of Notification: Verbal Reason For Visit: CHF Diagnosis Discharge Diagnosis (1) CHF exacerbation: Status: Chronic Code(s): I50.9 - Heart failure, unspecified (2) Scrotal edema: Status: Acute Code(s): N50.89 - Other specified disorders of the male genital organs Medications at Discharge Home Medications metoprolol tartrate 25 mg tablet 25 mg PO BID blood pressure 09/06/22 simvastatin 10 mg tablet 10 mg PO QHS cholesterol 09/06/22 terazosin 2 mg capsule 2 mg PO QHS prostate 09/06/22 warfarin 5 mg tablet 5 mg PO DAILY blood thinner 09/06/22 lidocaine 5 % topical patch 1 patch topical DAILY pain #15 ea 09/08/22 albuterol sulfate 90 mcg/actuation aerosol inhaler 1 puff inhalation Q4H PRN SOB 02/08/24 tiotropium 2.5 mcg-olodaterol 2.5 mcg/actuation mist for inhalation (Stiolto Respimat) 1 puff inhalation BID breathing 02/08/24 acetaminophen 500 mg tablet 1,000 mg (2 x 500 mg) PO Q8 pain 30 days #180 tabs 02/16/24 acyclovir 800 mg tablet 800 mg PO 4X/DAY 5 days #20 tabs 02/16/24 furosemide 40 mg tablet 40 mg PO DAILY 30 days #30 tabs 02/16/24 oxycodone 5 mg tablet 5 mg PO Q6H PRN PRN Pain Score 4-10 7 days #28 tabs 02/16/24 potassium chloride 20 mEq tablet,extended release(part/cryst) 20 meq PO DAILY 30 days #30 tabs 02/16/24 Hospital Course Operations None Procedures EKG, Transthoracic echo and - (Chest x-ray) Summary of Care Provided Minutes Spent on Discharge: 35 Hospital Course: Patient is a 73-year-old male who presented to [facility] ED on 02/07/2024 with worsening lower extremity edema and scrotal edema. Hospital course as noted below. Patient discharged home with home health care in stable condition on 02/15. 1. Acute HFpEF, moderate pulmonary hypertension Presumed secondary to nonadherence to home Lasix. Marked lower extremity edema and scrotal edema on admission. Noted to be approximate 10 kg heavier than on last hospitalization back in 2021. BNP 974. Chest x-ray showed vascular congestion with small left-sided effusion. Patient reported dyspnea on exertion but notably with good oxygen saturations on room air at rest on admission. Last echo on 09/07/2022 showed EF 60%, normal LV function, no diastolic dysfunction noted, no regional wall motion abnormalities. Repeat echo on 02/07 shows EF 65 to 70%, concentric LV hypertrophy, moderately enlarged LA, mildly enlarged RA, normal RV size and function, moderate to severe aortic stenosis. Cardiology evaluated on 02/08, noted that the aortic stenosis is a newer finding and likely need to be further evaluated with a heart cath but this can be done on an outpatient basis. Recommended continued diuresis and signed off. ? Treated with Lasix drip til 02/13 with good urine output and symptomatic improvement. De-escalated to p.o. Lasix 40 mg daily on 02/14, stable on 02/15. Discharged on p.o. Lasix 40 mg daily. Continued home Lopressor and lisinopril. Close outpatient follow-up with cardiology. 2. BPH with obstructive symptoms Patient on home terazosin. Noted worsening urinary frequency with significant hesitation and difficulty with emptying his bladder for 1 to 2 months prior to this admission. ? Lima catheter placed in the ED, remained in place till 02/14 as patient was on IV Lasix. Lima catheter removed on 02/14, patient passed voiding trial. Continue home tamsulosin on discharge. 3. Debility ? PT/OT/case management followed. Discharged home with home health care on 02/15 in stable condition. 4. Scrotal edema, improving ? Presumed secondary to volume overload from CHF exacerbation. Diuresed as noted above with moderate improvement. No clinical evidence of scrotal infection. Elevate scrotum as able on discharge. 5. Venous stasis ulcers ? No evidence of infection during hospitalization. Wound care followed. 6. Aortic stenosis ? Echo on admit showed moderate to severe aortic valve stenosis with peak gradient 82 mmHg, mean gradient 45 mmHg. No aortic stenosis noted on last echo in 2021. Cardiology evaluated, no further inpatient needs. Close outpatient follow-up with cardiology. 7. Right lower back lesions concerning for shingles ? Patient noted to have worsening right lower back lesions with moderate to severe pain with them on 02/12. Does seem to follow dermatomal distribution, have concern for shingles. Unfortunately there is no testing available for shingles in our hospital. Treating empirically with acyclovir 800 mg 4 times daily for 7 days, stop date 02/18. Chronic medical conditions: ? Morbid obesity: BMI 43 on admit. Complicates hospital course, care and prognosis. ? A-fib: Rate controlled. INR therapeutic on admission. Continue home Lopressor and warfarin. ? History of vertebral fractures with chronic back pain: Follows with Dr. Musa with pain management. On pain control at home with oxycodone and acetaminophen, continued these while inpatient. Lidocaine patch utilized while inpatient as well. Total clinical time spent by myself addressing the patient's medical issues, reviewing all the data, and collaborating with patient's care team: 35 minutes. Physical Exam Const alert, oriented x3 and no apparent distress Constitutional Narrative: Elderly male, morbidly obese, sitting up comfortably in bedside, conversing normally, no acute distress. General Appearance: cooperative and comfortable HEENT normocephalic, head/scalp atraumatic, hearing grossly normal bilaterally, nasal mucous membranes and turbinates normal and moist oral mucous membranes Eyes PERRL, EOMs intact bilaterally and conjunctivae normal Neck full ROM Chest inspection of chest normal Resp normal respiratory effort, normal air movement, no use of accessory muscles and clear to auscultation bilaterally Cardio regular rate, regular rhythm, no murmurs and peripheral pulses 2+ throughout GI normal to inspection, nondistended, normoactive bowel sounds, soft to palpation, non-tender and non-distended Narrative: Scrotal edema moderately improved from admission. Catheter removed on 02/14, external catheter in place, draining clear pale yellow urine. No suprapubic tenderness noted. Back/Spine normal ROM Extremity full ROM Extremity Narrative: Lymphedematous changes noted in lower extremities bilaterally. Lower extremity swelling improved from admission. Ulcers on right lateral gregorio and left lower leg evaluated on 02/11, noninfectious appearing, stable from previous. Skin Skin Narrative: Right lateral lower back lesions noted on 02/11. Fairly large and red in appearance, with one of the wounds appearing open. Appears to possibly be following a dermatomal distribution. Mildly improved on day of discharge. Neuro moves all extremities and no focal motor deficits Speech: speech normal Psych mental status grossly normal Weight / BMI Weight Weight: 108.3 kg Body Mass Index (BMI) 33.3 ABG / Lab / Microbiology Data 02/13/24 06:45 02/16/24 06:50 Laboratory: Laboratory Results - last 24 hr 02/15/24 17:55: PT 22.0 H, INR 1.9 02/16/24 06:50: Sodium 135 L, Potassium 3.8, Chloride 100, Carbon Dioxide 31.0, Anion Gap 4 L, BUN 22 H, Creatinine 0.86, Estim Creat Clear Calc 94.33, Est GFR (MDRD) Af Amer 111, Est GFR (MDRD) Non-Af 92, BUN/Creatinine Ratio 25.5 H, Glucose 103, Calcium 8.8 Microbiology: Microbiology 02/07/24 18:44 Stool Stool Occult Blood (JONATHAN) - Final Occult Blood Positive D/C Instructions Discharge Diet: No restrictions Weight Bearing Status: Full weight bearing Meaningful Use Info Meaningful Use Diagnoses (Choose all that apply): CHF CHF KWAKU/ARB ordered at discharge?: Yes Documented LVEF (%): 65 Discharge Plan Admission Admit Date/Time: 02/07/24 19:38 Primary Reason for Your Visit: Worsening volume overload with scrotal edema Attending Provider: Bharat Wilkins Primary Care Provider: [facility],[place] Consulting Providers: Aj Randolph; Osirsi Yip; Bharat Wilkins; Brady Kemp Discharge Orders/Prescriptions Prescriptions: New furosemide 40 mg Tablet 40 mg PO DAILY 30 Days Qty: 30 2RF acyclovir 800 mg Tablet 800 mg PO 4X/DAY 5 Days Qty: 20 0RF oxycodone 5 mg Tablet 5 mg PO Q6H PRN PRN (Reason: Pain Score 4-10) 7 Days Qty: 28 0RF potassium chloride 20 mEq Tablet,Er Particles/Crystals 20 meq PO DAILY 30 Days Qty: 30 2RF Continued simvastatin 10 mg Tablet 10 mg PO QHS terazosin 2 mg Capsule 2 mg PO QHS warfarin 5 mg Tablet 5 mg PO DAILY Hold Instructions: Until instructed to reinitiate after follow-up INR metoprolol tartrate 25 mg Tablet 25 mg PO BID lidocaine 5 % Adhesive Patch,Medicated 1 patch topical DAILY Qty: 15 0RF Protocol: *Topical Application Instructions APPLICATION INSTRUCTIONS: To the painful area and back Stiolto Respimat 2.5-2.5 mcg/actuation mist 1 puff inhalation BID albuterol sulfate 90 mcg/actuation HFA aerosol inhaler 1 puff inhalation Q4H PRN (Reason: SOB) acetaminophen 500 mg Tablet 1,000 mg PO Q8 30 Days Qty: 180 0RF Rx Instructions: Do not exceed 1000 mg 3 times a day Discontinued lisinopril 10 mg Tablet 10 mg PO QHS Hold Instructions: Until follow-up with outpatient primary care physician to reassess blood pressure oxycodone 5 mg Tablet 10 mg PO Q8H PRN (Reason: pain) 7 Days Qty: 30 0RF furosemide [Lasix] 20 mg Tablet 20 mg PO DAILY Qty: 20 0RF Rx Instructions: Take as needed for lower extremity swelling oxycodone 10 mg tablet 10 mg PO Q8H PRN (Reason: pain) 7 Days Qty: 21 0RF Referrals / Follow Up: Osbaldo Laird MD [Med Staff - Active Staff] - 02/23/24 2:15 pm [facility] [Primary Care Provider[facility] - Disposition Disposition (needs filled in before D/C Order can be placed): Home, Self Care Charges/Coding Visit Charges Inpatient E&M: 85772 Disch Hosp >30min
--- NOTE | 2024-02-16 13:33 | CASEMGMT ---
Addendum entered by Shilpa Campbell 02/16/24 14:30: TEODORO HARVEY received call back from [facility] and they are able to accept the patient with planned start of care for Monday. RN WES updated patient, patient had no further questions or concerns. Original Note: TEODORO HARVEY in to discuss [facility] again with patient. Patient states he would like [facility] for correction. Patient prefers [facility] and declined HHC. Patient denied further needs. TEODORO HARVEY called and made referral to [facility], awaiting acceptance. CM will continue to follow this patient and plan for a safe discharge.
[2024-02-16 14:20] VITALS: BP 122/78; PULSE 66; RESP 16; TEMP 37.2; O2SAT 97
--- NOTE | 2024-02-16 14:31 | PHA.DC.MC.R ---
Pharmacy [facility] has performed discharge medication reconciliation and counseling for this patient. The patient's discharge medication list was reviewed for discrepancies and discrepancies were resolved. The patient was counseled on the following discharge medications and changes in medications for homegoing were reviewed. The Reason for Use, instructions for use, and potential side effects were reviewed for all new medications. The patient's questions regarding all of their medications were answered. 1. Furosemide 40 mg PO daily 2. Potassium chloride 20 mEq po daily 3. Oxycodone 5 mg PO Q6H PRN pain 4. Acyclovir 800 mg PO 4x/day x 5 days The patient was able to verbally demonstrate an understanding of their discharge medications. Medications at Discharge Home Medications metoprolol tartrate 25 mg tablet 25 mg PO BID blood pressure 09/06/22 simvastatin 10 mg tablet 10 mg PO QHS cholesterol 09/06/22 terazosin 2 mg capsule 2 mg PO QHS prostate 09/06/22 warfarin 5 mg tablet 5 mg PO DAILY blood thinner 09/06/22 lidocaine 5 % topical patch 1 patch topical DAILY pain #15 ea 09/08/22 albuterol sulfate 90 mcg/actuation aerosol inhaler 1 puff inhalation Q4H PRN SOB 02/08/24 tiotropium 2.5 mcg-olodaterol 2.5 mcg/actuation mist for inhalation (Stiolto Respimat) 1 puff inhalation BID breathing 02/08/24 acetaminophen 500 mg tablet 1,000 mg (2 x 500 mg) PO Q8 pain 30 days #180 tabs 02/16/24 acyclovir 800 mg tablet 800 mg PO 4X/DAY 5 days #20 tabs 02/16/24 furosemide 40 mg tablet 40 mg PO DAILY 30 days #30 tabs 02/16/24 oxycodone 5 mg tablet 5 mg PO Q6H PRN PRN Pain Score 4-10 7 days #28 tabs 02/16/24 potassium chloride 20 mEq tablet,extended release(part/cryst) 20 meq PO DAILY 30 days #30 tabs 02/16/24
== END 2024-02-16 15:43 | disposition home health service (06) | DRG 291 ==
LOC: ED 18:03 → PCU 19:14
PROVIDERS: Internal Medicine; Emergency Provider Emergency Medicine; Visit Provider Hospitalist
DX: I11.0 Hypertensive heart disease with heart failure (principal); I50.33 Acute on chronic diastolic (congestive) heart failure; Z68.41 Body mass index [BMI] 40.0-44.9, adult; I48.11 Longstanding persistent atrial fibrillation; L97.822 Non-pressure chronic ulcer of other part of left lower leg with fat layer exposed; N13.8 Other obstructive and reflux uropathy; I27.20 Pulmonary hypertension, unspecified; Z79.01 Long term (current) use of 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s; J44.9 Chronic obstructive pulmonary disease, unspecified; E66.01 Morbid (severe) obesity due to excess calories; I35.0 Nonrheumatic aortic (valve) stenosis; I87.2 Venous insufficiency (chronic) (peripheral); E87.6 Hypokalemia; N50.89 Other specified disorders of the male genital organs; B02.9 Zoster without complications; G89.29 Other chronic pain; N40.1 Benign prostatic hyperplasia with lower urinary tract symptoms; R35.0 Frequency of micturition; R39.11 Hesitancy of micturition; R39.14 Feeling of incomplete bladder emptying; R53.81 Other malaise; Z91.148 Patient's other noncompliance with medication regimen for other reason; Z91.198 Patient's noncompliance with other medical treatment and regimen for other reason; Z79.891 Long term (current) use of opiate analgesic; Z79.51 Long term (current) use of inhaled steroids; Z79.899 Other long term (current) drug therapy; Z87.81 Personal history of (healed) traumatic fracture; Z87.891 Personal history of nicotine dependence
CPT/HCPCS: 36415; 51702; 71045; 80048; 80061; 81001; 82274; 82306; 83735; 83880; 84100; 85025; 85027; 85610; 93005; 93306; 94640; 97110; 97116; 97162; 97166; 97530; 97535; 97802; 97803; 99285; Q9957; A4216; J1940; J2405

== ENCOUNTER 2024-02-17 02:36 | Inpatient (IN) | payer OTHER, SELFPAY ==
[2024-02-17] VITALS (13 sets, daily range): BP systolic 100–126; BP diastolic 57–85; PULSE 64–118; RESP 15–33; TEMP 36.1–38.3; O2SAT 94–99; BMI 35.6; BMI 33.3
--- NOTE | 2024-02-17 03:20 | RAD_ITS ---
INDICATION: chest pain EXAMINATION/TECHNIQUE: X-RAY - XR Chest 1 View COMPARISON: Prior study dated: 02/07/2024 FINDINGS: LINES/DEVICES: None. LUNGS: Markedly improved pulmonary venous congestion. No focal infiltrate is seen. No evidence of pleural effusions. MEDIASTINUM AND CARDIOVASCULAR STRUCTURES: Mild enlargement of the cardiac silhouette. Tortuosity of the thoracic aorta. BONES AND SOFT TISSUES: Unremarkable. RAD/Chest 1 View (Portable) IMPRESSION: Markedly improved pulmonary venous congestion. Electronically Signed: Landon Qureshi MD at 8:07 EDT ,
--- NOTE | 2024-02-17 03:29 | EX.ED.DYSGE1 ---
HPI History of Present Illness Chief Complaint: Syncope Detail of Chief Complaint: Passed out at home. Informant: patient Onset/Context/Timing Onset: Today Context: Sudden Onset Current Severity: Mild Maximum Severity: Moderate Narrative Narrative: 73-year-old male had a syncopal episode tonight at home. Said he passed out woke up on the floor. Denies any head injury. Denies any neck pain. Recently patient was hospitalized due to congestive heart failure with significant lower extremity and scrotal edema. He was on a Lasix drip and states he lost 42 pounds. He was just discharged from the hospital yesterday. He lives at home with family. He said this incident occurred around 1 AM this morning. Prior similar symptoms: No Recent Illness/Hospitalization: Yes PFSH PENDING SALE TO [facility] Medical History Afib Aortic stenosis Congestive heart failure (CHF) COPD (chronic obstructive pulmonary disease) Former smoker Hypertension Longstanding persistent atrial fibrillation Home Medications simvastatin 10 mg tablet 10 mg PO QHS cholesterol 09/06/22 [History Last Taken 02/16/24] terazosin 2 mg capsule 2 mg PO QHS prostate 09/06/22 [History Last Taken 02/16/24] warfarin 5 mg tablet 5 mg PO DAILY blood thinner 09/06/22 [History Last Taken 02/16/24] lidocaine 5 % topical patch 1 patch topical DAILY pain #15 ea 09/08/22 [Rx Last Taken Unknown] albuterol sulfate 90 mcg/actuation aerosol inhaler 1 puff inhalation Q4H PRN SOB 02/08/24 [History Last Taken 02/16/24] tiotropium 2.5 mcg-olodaterol 2.5 mcg/actuation mist for inhalation (Stiolto Respimat) 1 puff inhalation BID breathing 02/08/24 [History Last Taken Unknown] acetaminophen 500 mg tablet 1,000 mg (2 x 500 mg) PO Q8 pain 30 days #180 tabs 02/16/24 [Rx Last Taken 02/16/24] acyclovir 800 mg tablet 800 mg PO 4X/DAY 5 days #20 tabs 02/16/24 [Rx Last Taken 02/16/24] furosemide 40 mg tablet 40 mg PO DAILY 30 days #30 tabs 02/16/24 [Rx Last Taken 02/16/24] oxycodone 5 mg tablet 5 mg PO Q6H PRN PRN Pain Score 4-10 7 days #28 tabs 02/16/24 [Rx Last Taken 02/16/24] potassium chloride 20 mEq tablet,extended release(part/cryst) 20 meq PO DAILY 30 days #30 tabs 02/16/24 [Rx Last Taken 02/16/24] oxycodone 10 mg tablet 10 mg PO TID 02/17/24 [History Last Taken 02/16/24] Allergy/AdvReac Type Severity Reaction Status Date / Time pramoxine Allergy Rash Verified 02/07/24 17:06 Social History Smoking Status: Former smoker ROS ROS ED ROS Narrative Denies recent illness other than his hospitalization for congestive heart failure. Review of Systems ROS Unobtainable: Denies due to encephalopathy Constitutional Constitutional ED: Denies chills or fever(s) Eyes Eyes: Denies blurry vision ENT ENT ED: Denies ear pain Cardiovascular Cardiovascular: Denies chest pain Respiratory/Chest Respiratory/Chest: Denies cough or dyspnea Gastrointestinal Gastrointestinal: Denies abdominal pain, diarrhea, nausea or vomiting Genitourinary Genitourinary ED: Denies dysuria or hematuria Musculoskeletal Musculoskeletal: Denies arthralgias Integumentary Denies abscess Neurologic Neurologic: Denies headache(s) Psychiatric Psychiatric: Denies anxiety or depression Endocrine Endocrinology: Denies cold intolerance Hematologic/Lymphatic Hematologic/Lymphatic: Reports none Allergic/Immunologic Allergic/Immunologic ED: Denies mouth swelling, tongue swelling or urticaria EXAM Physical Exam Narrative Exam Narrative: 33-year-old male initial vital signs initial blood pressure 123/85 when I was in the room his blood pressure was reading low at like 90/60. H EENT exam pupils round react to light. Dry mucous membranes. No signs of trauma to his face or scalp. No hematoma. C-spine and neck nontender. Lungs clear to auscultation. Heart A-fib rate about 107. No appreciable murmur. Irregularly irregular. Chest wall and ribs nontender. No crepitus or subcu air. Abdomen soft nontender. Pelvic girdle intact. Moving all 4 extremities. Wraps on both lower extremities. Trace edema. Neurologically is awake and alert. Answering questions and following commands. Const Vital Signs: 02/17/24 02:39 02/17/24 02:53 02/17/24 03:29 Temperature 97 F L Temperature Source Temporal Pulse Rate 118 H Respiratory Rate 33 H Respiratory Effort Short of Breath Respiratory Pattern Normal Blood Pressure 123/85 H Blood Pressure Mean 97 Pulse Ox 95 Oxygen Delivery Method Nasal Cannula Nasal Cannula Oxygen Flow Rate (L/min) 4 4 Positive well nourished and well developed; Negative for cachectic, contractures or unkempt General Appearance ED: well developed and NAD; Negative for unkempt, cachectic, contractures, cyanotic, diaphoretic or pallor Nutritional Appearance: Negative for cachectic HEENT Reports dry mucous membranes; Denies moist mucous membranes Negative for trauma or tenderness Mouth ED: Yes dry mucous membranes Mouth: dry mucous membranes Eyes PERRL and EOMs intact bilaterally General Eye ED: Negative for pale conjunctiva, scleral icterus or other Neck no lymphadenopathy, supple and no JVD General: Negative for tenderness Lymph Lymphatic: Negative for other Chest Wall inspection of chest normal and palpation of chest normal Chest: Negative for other Resp normal respiratory effort and clear to auscultation bilaterally Effort and Inspection: Negative for retractions Auscultation: Negative for rales, rhonchi, wheezes or diminished lung sounds Cardio Negative for regular rate or regular rhythm Rhythm: abnormal rhythm irregularly irregular GI normal to inspection, nondistended, normoactive bowel sounds, non-tender, non-distended and no masses Inspection: Negative for abdominal distention Auscultation: normoactive bowel sounds Palpation: soft; Negative for tender or guarding Back/Spine no CVA tenderness General Back: Negative for CVA tenderness Cervical Spine: Negative for cervical spine tenderness Thoracic Spine / Upper Back: Negative for thoracic spinal tenderness or paraspinal muscle tenderness Lumbar Spine / Lower Back: Negative for lumbar spinal tenderness Extremity Negative for normal to inspection General Extremety ED: Yes edema; Negative for tenderness General Extremity: edema Neuro oriented x3 and CN's II-XII intact bilaterally Sensorium / Orientation: alert; Negative for orientation impaired, lethargic or stuporous Motor Exam: strength 5/5 throughout Psych mental status grossly normal Appearance: Negative for unkempt Attitude: No agitated Mood & Affect: Negative for depressed, anxious or tearful Skin no rashes or lesions noted General Skin Exam: Negative for jaundice or pallor Lesions: No lesion noted Rashes: No rashes noted Trauma: Negative for abrasion Wounds: Negative for wounds noted MDM MDM MDM Narrative Medical decision making narrative: 73-year-old male recent hospitalization for CHF where he was diuresed and lost 42 pounds. History of A-fib currently is in A-fib RVR. Cardiac workup. Chest x-ray. History & Record Review Discussion w/independent historian: Patient Additional record(s) reviewed:: Prior inpatient record, Prior outpatient record, Prior ED visit and Prior labs Lab Data Attestation: I reviewed the patient's lab results. Lab results narrative: CBC shows a white count 9.2. H&H 11.6 36.8. Platelets 173. Electrolytes show a sodium of 134. Gap 6. BUN 27 creatinine 1. Glucose 132. Troponin 40. Labs: Laboratory Results - last 24 hr 02/17/24 02/17/24 02/17/24 03:00 03:00 03:55 WBC Cancelled 9.2 Corrected WBC Cancelled RBC Cancelled 4.11 L Hgb Cancelled 11.6 L Hct Cancelled 36.8 L MCV Cancelled 89.5 MCH Cancelled 28.2 MCHC Cancelled 31.5 L RDW Std Deviation Cancelled 53.1 H RDW Coeff of Medardo Cancelled 16.3 H Plt Count Cancelled 173 MPV Cancelled 10.8 Immature Gran % (Auto) Cancelled 0.500 Neut % (Auto) Cancelled 81.0 H Lymph % (Auto) Cancelled 6.9 L Reynolds % (Auto) Cancelled 9.2 Eos % (Auto) Cancelled 1.3 Baso % (Auto) Cancelled 1.1 H Absolute Neuts (auto) Cancelled 7.4 Absolute Lymphs (auto) Cancelled 0.63 L Total Counted Cancelled Neutrophils % (Manual) Cancelled Band Neutrophils % Cancelled Lymphocytes % (Manual) Cancelled Monocytes % (Manual) Cancelled Eosinophils % (Manual) Cancelled Basophils % (Manual) Cancelled Metamyelocytes % Cancelled Myelocytes % Cancelled Promyelocytes % Cancelled Blast Cells % Cancelled Plasma Cell % (Manual) Cancelled Other Cells % Cancelled Nucleated RBC % Cancelled 0 Nucleated RBCs/100 WBC Cancelled Differential Comment Cancelled Diff Path Review Cancelled Hypersegmented Neuts Cancelled Atypical Lymphocytes Cancelled Reactive Lymphocytes Cancelled Smudge Cells Cancelled Toxic Granulation Cancelled Toxic Vacuolation Cancelled Dohle Bodies Cancelled Yogesh Rods Cancelled Platelet Estimate Cancelled Plt Morphology Comment Cancelled RBC Morphology Cancelled Cancelled Polychromasia Cancelled Hypochromasia Cancelled Basophilic Stippling Cancelled Anisocytosis Cancelled Microcytosis Cancelled Macrocytosis Cancelled Spherocytes Cancelled Sickle Cells Cancelled Target Cells Cancelled Tear Drop Cells Cancelled Ovalocytes Cancelled Stomatocytes Cancelled [place] Bodies Cancelled [place] Cells Cancelled Bite Cells Cancelled Crenated Cell Cancelled Acanthocytes (Spur) Cancelled Rouleaux Cancelled Schistocytes Cancelled Sodium 134 L Potassium 4.7 Chloride 98 Carbon Dioxide 30.0 Anion Gap 6 BUN 27 H Creatinine 1.18 Estim Creat Clear Calc 71.14 Est GFR (MDRD) Af Amer 78 Est GFR (MDRD) Non-Af 64 BUN/Creatinine Ratio 22.9 H Glucose 132 H Calcium 9.1 Troponin I High Sens 40 Radiography Chest X-Ray - ED: 1 View, Read by ED Physician, Lungs, Mediastinum, Bony Structures, No Acute Disease, Chronic Changes and Cardiomegaly Diagnostic Testing: Chest x-ray, portable, single view interpreted by myself shows chronic cardiomegaly. Otherwise no acute process. Chronic changes. Rhythm Strip Rhythm Strip: A-fib Rate: 107 Ectopy: PVC(s) EKG Initial EKG: Attestation: I personally reviewed and interpreted this EKG as follows: Interpretation: Atrial Fibrillation Comments: A-fib with rapid ventricular rate of 117 with occasional PVCs. No acute signs of [place]. Discharge Plan Triage Chief Complaint: Syncope ED Provider: Noman Cloud Dx/Rx/DC Orders Prescriptions: No Action simvastatin 10 mg Tablet 10 mg PO QHS terazosin 2 mg Capsule 2 mg PO QHS warfarin 5 mg Tablet 5 mg PO DAILY Hold Instructions: Until instructed to reinitiate after follow-up INR lidocaine 5 % Adhesive Patch,Medicated 1 patch topical DAILY Qty: 15 0RF Protocol: *Topical Application Instructions APPLICATION INSTRUCTIONS: To the painful area and back Stiolto Respimat 2.5-2.5 mcg/actuation mist 1 puff inhalation BID albuterol sulfate 90 mcg/actuation HFA aerosol inhaler 1 puff inhalation Q4H PRN (Reason: SOB) furosemide 40 mg Tablet 40 mg PO DAILY 30 Days Qty: 30 2RF acyclovir 800 mg Tablet 800 mg PO 4X/DAY 5 Days Qty: 20 0RF oxycodone 5 mg Tablet 5 mg PO Q6H PRN PRN (Reason: Pain Score 4-10) 7 Days Qty: 28 0RF potassium chloride 20 mEq Tablet,Er Particles/Crystals 20 meq PO DAILY 30 Days Qty: 30 2RF acetaminophen 500 mg Tablet 1,000 mg PO Q8 30 Days Qty: 180 0RF Rx Instructions: Do not exceed 1000 mg 3 times a day oxycodone 10 mg tablet 10 mg PO TID [facility]: [facility] [Primary Care Provider] -
[2024-02-17 04:01] LABS: Absolute Lymphocyte Count 0.63 X10^3/uL (0.83-4.51); Absolute Neutrophil Count 7.4 X10^3/uL (2.0-7.7); Basophil% 1.1 % (0-1); Eosinophil# 0.12 X10^3/uL; Eosinophils% 1.3 % (0-5); Hematocrit 36.8 % (40-54); Hemoglobin 11.6 g/dL (13.0-16.5); Lymphocyte # 0.63 X10^3/ul (0.83-4.51); Lymphocyte % 6.9 % (19-41); Mean Corp Hgb Conc 31.5 g/dL (32-36); Mean Corpuscular Hgb 28.2 pg (27.0-32.0); Mean Corpuscular Volume 89.5 fL (80-94); Mean Platelet Vol. 10.8 fl (6.2-12.0); Monocyte# 0.84 X10^3/uL; Monocyte% 9.2 % (0-10); NRBC Flagged by Analyzer 0 % (0-5); Neutrophil # 7.44 X10^3/uL (2.7-7.7); Platelet Count 173 K/mm3 (150-450); RBC Distribution Width CV 16.3 % (11.6-14.6); RBC Distribution Width SD 53.1 fl (35.1-43.9); Red Blood Count 4.11 M/mm3 (4.6-6.2); White Blood Count 9.2 K/mm3 (4.4-11.0)
[2024-02-17 04:01] LABS: Anion Gap 6 (5-15); BUN 27 mg/dL (7-18); BUN/Creat Ratio 22.9 RATIO (10-20); Calcium,Total 9.1 mg/dL (8.5-10.1); Chloride 98 mmol/L (98-107); Creatinine, Serum 1.18 mg/dL (0.70-1.30); EST Glomerular Filtration Rate 64 mL/min (>60); Est Glom Filt Rate - Afr Amer 78 mL/min (>60); Estimated Creatinine Clearance 71.14 ml/min; Glucose 132 mg/dL (74-106); Potassium 4.7 mmol/L (3.5-5.1); Sodium Level 134 mmol/L (136-145); Troponin-I HS 40 pg/mL (3.0-78.0)
--- NOTE | 2024-02-17 04:39 | HP.PCM.HOS_ITS ---
HPI - General General Date of Admission: 02/17/24 Date of Service: 02/17/24 Chief Complaint: Syncopal event. HPI Narrative The patient is a 73 y/o M w/ PMHx: HFpEF, Moderate Pulmonary HTN, BPH with obstructive symptoms, Chronic Venous stasis disease w/ ulcers, PAF, Morbid Obesity, HTN, HLD, Hx Vertebral Fx with chronic back pain following with Dr. Musa Pain management, COPD, Former tobacco use, recent 02/16/24 discharge following evaluation and treatment for HFpEF exacerbation with concurrently new moderate to severe aortic stenosis with associated significant scrotal edema with echocardiogram with EF 65 to 70%, concentric LV hypertrophy, moderately enlarged LA, mildly enlarged RA, normal RV size and function, moderate to severe aortic stenosis with planned outpatient cardiac catheterization with recommended continued diuresis initially with an Lasix drip and eventual de-escalation to oral regimen which was new for the patient in addition to R lower back suspected shingles discharged on planned continued empiric acylcovir through 02/19/24 who now re-presents to the [facility] ED on 02/17/24 with history of syncopal episode at home waking up on the floor with no head injury nor any neck discomfort occurring approximately 1 AM found by his family. Patient reports lightheaded and dizziness with positional changes especially and the symptoms prior to his syncopal event. He notes he is felt significantly weak and fatigued and more so when he attempts activity. He reports from his recent presentation a weight loss of approximately 42 pounds following his significant diuresis. Workup in the ED included T97, heart rate 118, BP 123/85, respiratory rate 33, 95% on 4 L nasal cannula recently discharged 02/16/2024 noted to be 97% on room air at that time, CBC with WC 9.2, hemoglobin 11.6, MCV 89.5, platelet 173 with increased immature granulocytes lymphocytosis, BMP with sodium 134, BUN/creatinine 27/1.18, glucose 132, troponin 40, chest x-ray with chronic COPD diet changes with no acute cardiopulmonary findings but final read pending, EKG with atrial fibrillation with RVR with rate 117 with occasional PVC with no acute evidence of ischemia. In the ED patient administered judicious 500 cc NS IV bolus. [facility] Medical History (Updated 02/17/24 @ 05:[address] Karen Sinha MD) (HFpEF) heart failure with preserved ejection fraction Anemia Aortic stenosis Chronic pain syndrome Compression fx, thoracic spine COPD (chronic obstructive pulmonary disease) Former smoker HLD (hyperlipidemia) Hypertension Longstanding persistent atrial fibrillation Obesity RAFAEL on CPAP Home Medications simvastatin 10 mg tablet 10 mg PO QHS cholesterol 09/06/22 [History Last Taken 02/16/24] terazosin 2 mg capsule 2 mg PO QHS prostate 09/06/22 [History Last Taken 02/16/24] warfarin 5 mg tablet 5 mg PO DAILY blood thinner 09/06/22 [History Last Taken 02/16/24] lidocaine 5 % topical patch 1 patch topical DAILY pain #15 ea 09/08/22 [Rx Last Taken Unknown] albuterol sulfate 90 mcg/actuation aerosol inhaler 1 puff inhalation Q4H PRN SOB 02/08/24 [History Last Taken 02/16/24] tiotropium 2.5 mcg-olodaterol 2.5 mcg/actuation mist for inhalation (Stiolto Respimat) 1 puff inhalation BID breathing 02/08/24 [History Last Taken Unknown] acetaminophen 500 mg tablet 1,000 mg (2 x 500 mg) PO Q8 pain 30 days #180 tabs 02/16/24 [Rx Last Taken 02/16/24] acyclovir 800 mg tablet 800 mg PO 4X/DAY 5 days #20 tabs 02/16/24 [Rx Last Taken 02/16/24] furosemide 40 mg tablet 40 mg PO DAILY 30 days #30 tabs 02/16/24 [Rx Last Taken 02/16/24] oxycodone 5 mg tablet 5 mg PO Q6H PRN PRN Pain Score 4-10 7 days #28 tabs 02/16/24 [Rx Last Taken 02/16/24] potassium chloride 20 mEq tablet,extended release(part/cryst) 20 meq PO DAILY 30 days #30 tabs 02/16/24 [Rx Last Taken 02/16/24] oxycodone 10 mg tablet 10 mg PO TID 02/17/24 [History Last Taken 02/16/24] Allergy/AdvReac Type Severity Reaction Status Date / Time pramoxine Allergy Rash Verified 02/07/24 17:06 Family History (Updated 02/17/24 @ 05:[address] Karen Sinha MD) Mother Cancer Father CAD (coronary artery disease) Heart disease Hypertension Myocardial infarction Surgical History (Updated 02/17/24 @ 05:[address] Karen Sinha MD) History of cardiac radiofrequency ablation (RFA) History of tonsillectomy and adenoidectomy Social History (Updated 02/17/24 @ 05:[address] Karen Sinha MD) household members: family Smoking Status: Former smoker how long ago did patient quit smoking: Quit ~ 35 yrs prior. alcohol intake: never substance use type: does not use ROS ROS Narrative Admission Review of Systems: CONSTITUTIONAL: No weight loss, fever, chills, + weakness or fatigue. HEENT: Eyes: No visual loss, blurred vision, double vision or yellow sclerae. Ears, Nose, Throat: No hearing loss, sneezing, congestion, runny nose or sore throat. SKIN: No rash or itching, lesions, wounds except for + significant bilateral lower extremity venous stasis skin changes, lymphedema, very staged ecchymoses. CARDIOVASCULAR: + Syncopal event, palpitations, still residual peripheral edema, see skin. No chest pain, chest pressure or chest discomfort, orthopnea. RESPIRATORY: No shortness of breath, cough or sputum, wheezing, hemoptysis. GASTROINTESTINAL: No anorexia, nausea, vomiting or diarrhea, abdominal pain, melena, BRBPR. GENITOURINARY: No dysuria, frequency, urgency or retention. NEUROLOGICAL: No headache, dizziness, syncope, paralysis, ataxia, numbness or tingling in the extremities, focal weakness, change in bowel or bladder control, seizure. MUSCULOSKELETAL: + muscle, back pain, joint pain or stiffness. HEMATOLOGIC: + Anemia, easy bleeding/bruising. LYMPHATICS: No enlarged nodes. No history of splenectomy. PSYCHIATRIC: No history of depression or anxiety. ENDOCRINOLOGIC: No reports of sweating, cold or heat intolerance. No polyuria or polydipsia. ALLERGIES: No history of asthma, hives, eczema or rhinitis. Vital Signs Vital Signs Vital Signs: 02/17/24 02:39 02/17/24 02:53 02/17/24 03:29 Temperature 97 F L Temperature Source Temporal Pulse Rate 118 H Respiratory Rate 33 H Respiratory Effort Short of Breath Respiratory Pattern Normal Blood Pressure 123/85 H Blood Pressure Mean 97 Pulse Ox 95 Oxygen Delivery Method Nasal Cannula Nasal Cannula Oxygen Flow Rate (L/min) 4 4 Weight Weight: 255 lb 11.779 oz Body Mass Index (BMI) 35.6 Physical Exam Narrative Physical Examination: General: Awake, alert, oriented x 3 and cooperative, seated upright in the ED bed in no apparent distress fatigued. Skin: Normal color, normal turgor, no icterus, no cyanosis except notable bilateral lower extremity venous stasis skin changes, lymphedema, chronic stasis wounds as well as very stage extremity ecchymoses. HEENT: AT/NC, EOMI, PERRLA, dry MM, no carotid bruits or JVD noted. Lungs: Diminished, distant, no evidence of any distress, appropriate effort, no rales, ronchi or wheezing. Heart: Irregular, rate currently controlled; no gallop, rub audible, + SM. Abdomen: Soft, obese, NTTP, ND, distant hyperactive BS, no appreciated HSM. Extremities: No cyanosis, no clubbing, still residual edema but patient reports it is significantly improved from previously, see skin. Neurological: Patient awake, alert, oriented as noted, cognitive function intact; pupils equally reactive to light and accommodation, cranial nerves grossly normal, moving all 4 extremities, no focal deficits, strength severely globally decreased. Psychiatric: Affect appears flat, fatigued, no acute evidence of depressive or anxiety feelings. Results Lab / Micro Data 02/17/24 03:55 02/17/24 03:00 Labs: Laboratory Results - last 24 hr 02/17/24 03:00: WBC Cancelled, Corrected WBC Cancelled, RBC Cancelled, Hgb Cancelled, Hct Cancelled, MCV Cancelled, MCH Cancelled, MCHC Cancelled, RDW Std Deviation Cancelled, RDW Coeff of Medardo Cancelled, Plt Count Cancelled, MPV Cancelled, Immature Gran % (Auto) Cancelled, Neut % (Auto) Cancelled, Lymph % (Auto) Cancelled, [place] % (Auto) Cancelled, Eos % (Auto) Cancelled, Baso % (Auto) Cancelled, Absolute Neuts (auto) Cancelled, Absolute Lymphs (auto) Cancelled, Total Counted Cancelled, Neutrophils % (Manual) Cancelled, Band Neutrophils % Cancelled, Lymphocytes % (Manual) Cancelled, Monocytes % (Manual) Cancelled, Eosinophils % (Manual) Cancelled, Basophils % (Manual) Cancelled, Metamyelocytes % Cancelled, Myelocytes % Cancelled, Promyelocytes % Cancelled, Blast Cells % Cancelled, Plasma Cell % (Manual) Cancelled, Other Cells % Cancelled, Nucleated RBC % Cancelled, Nucleated RBCs/100 WBC Cancelled, Differential Comment Cancelled, Diff Path Review Cancelled, Hypersegmented Neuts Cancelled, Atypical Lymphocytes Cancelled, Reactive Lymphocytes Cancelled, Smudge Cells Cancelled, Toxic Granulation Cancelled, Toxic Vacuolation Cancelled, Dohle Bodies Cancelled, Yogesh Rods Cancelled, Platelet Estimate Cancelled, Plt Morphology Comment Cancelled, RBC Morphology Cancelled 02/17/24 03:00: RBC Morphology Cancelled, Polychromasia Cancelled, Hypochromasia Cancelled, Basophilic Stippling Cancelled, Anisocytosis Cancelled, Microcytosis Cancelled, Macrocytosis Cancelled, Spherocytes Cancelled, Sickle Cells Cancelled, Target Cells Cancelled, Tear Drop Cells Cancelled, Ovalocytes Cance lled, Stomatocytes Cancelled, [place] Bodies Cancelled, Nima Cells Cancelled, Bite Cells Cancelled, Crenated Cell Cancelled, Acanthocytes (Spur) Cancelled, Rouleaux Cancelled, Schistocytes Cancelled, Sodium 134 L, Potassium 4.7, Chloride 98, Carbon Dioxide 30.0, Anion Gap 6, BUN 27 H, Creatinine 1.18, Estim Creat Clear Calc 71.14, Est GFR (MDRD) Af Amer 78, Est GFR (MDRD) Non-Af 64, BUN/Creatinine Ratio 22.9 H, Glucose 132 H, Calcium 9.1, Troponin I High Sens 40 02/17/24 03:55: WBC 9.2, RBC 4.11 L, Hgb 11.6 L, Hct 36.8 L, MCV 89.5, MCH 28.2, MCHC 31.5 L, RDW Std Deviation 53.1 H, RDW Coeff of Medardo 16.3 H, Plt Count 173, MPV 10.8, Immature Gran % (Auto) 0.500, Neut % (Auto) 81.0 H, Lymph % (Auto) 6.9 L, [place] % (Auto) 9.2, Eos % (Auto) 1.3, Baso % (Auto) 1.1 H, Absolute Neuts (auto) 7.4, Absolute Lymphs (auto) 0.63 L, Nucleated RBC % 0 Rhythm Strip Rhythm Strip: A-fib Rate: 107 Ectopy: PVC(s) Assessment & Plan Assessment/Plan (1) Syncope and collapse: PLAN: Plan The patient is a 73 y/o M w/ PMHx: HFpEF, Moderate Pulmonary HTN, BPH with obstructive symptoms, Chronic Venous stasis disease w/ ulcers, PAF, Morbid Obesity, HTN, HLD, Hx Vertebral Fx with chronic back pain following with Dr. Musa Pain management, COPD, Former tobacco use, recent 02/16/24 discharge following evaluation and treatment for HFpEF exacerbation with concurrently new moderate to severe aortic stenosis in addition to R lower back suspected shingles who now re-presents to the [facility] ED on 02/17/24 with history of syncopal episode at home waking up on the floor with no head injury nor any neck discomfort occurring approximately 1 AM found by his family. #1. Adult FTT, Multifactorial as noted below in addition to Acute Syncopal Event, suspected primarily secondary to recent significant diuresis with possibly orthostasis: EKG in ED w/ atrial fibrillation with RVR with no acute evidence of ischemia, initial trop normal 40. Will admit to PCU, place on a monitored bed to assure no acute myocardial infarction with serial cardiac enzymes and EKGs. Will maintain on fall precautions, obtain admission orthostatic and AM orthostatic VS and if appropriate initiate hydration, will hold diuresis. PT/OT/case management consultation for discharge planning. #2. PAF w/ RVR: We will continue patient home Coumadin with INR trending, will continue patient home metoprolol therapy with dose now especially given poor rate control. #3. Acute Hypoxia, unclear etiology, possibly multifactorial: Patient with underlying sleep apnea, underlying COPD although no overt exacerbation but presentation also as noted with PAF with RVR, will continue supplemental oxygen with wean as tolerated to room air, will continue treatments as noted and await final radiology chest x-ray read also to be cautious. #4. HFpEF with recent exacerbation with notable aortic valvular heart disease: Recent ECHO w/ EF 65 to 70%, concentric LV hypertrophy, moderately enlarged LA, mildly enlarged RA, normal RV size and function, moderate to severe aortic stenosis, place snug CARLOS wraps. Will continue patient home given with INR trending, statin therapy, metoprolol, hold lasix with very judicious hydrate as noted. #5. Chronic COPD: Will maintain on oxygen with wean as tolerated to room air, hold home inhaler in the interim transition to ATC budesonide therapy, PRN albuterol, HOB, IS parameters. #6. Recent right lower back shingles: We will continue patient home acyclovir regimen to completion 02/19/2024, contact exposure precautions. #7. Hypertension: Continue home regimen including metoprolol, temporally holding Lasix given concern for orthostasis with syncopal event as noted above #1, PRN hydralazine. #8. Hyperlipidemia: We will continue patient on statin therapy. #9. Morbid Obesity: Weight loss and lifestyle changes encouraged, nutrition consulted. #10. Chronic venous stasis skin disease with stasis ulcers: Complicated by significant edema, habitus, will place neck Carlos wraps with elevation, wound RN consulted. #11. History of vertebral fracture with chronic back pain: Following with pain management, Dr. Musa, will continue patient home chronic oxycodone regimen as well as lidocaine patch and encourage offloading, PT/OT/case management consulted for discharge planning. #12. BPH with obstructive symptoms: We will continue patient home prazosin r egimen. #13. Former tobacco use: Encourage continued tobacco cessation. #14. RAFAEL: CPAP q HS. #15. DVT prophylaxis: Will continue Coumadin therapy with INR trending. #16. CODE status: Patient HCPOA and living will are not in place. He states he does not have a specific individual that he would want to assign as his decision-maker but he does have a spouse. Discussed CODE status at length i ncluding difference between FULL code, DNR-CCA and DNR-CC status. Following discussions about the differences in these status, requested Full Code status. Advanced Care Planning Face to Face Time: 16 minutes. Charges/Coding Visit Charges Inpatient E&M: 62936 Init Hosp L3 Procedures Hospitalists Procedures: 53913 Advncd Care Plan 30 Min
[2024-02-17 04:55] LABS: International Normalized Ratio 1.8; Prothrombin Time (Protime)PT. 20.5 SECONDS (11.7-14.9)
[2024-02-17] MEDS: 0.9% Normal Saline (500mL Bag) 500 ML 999 ML IV (05:05)
[2024-02-17 05:06] LABS: Magnesium 2.2 mg/dL (1.6-2.6); Phosphorus 2.3 mg/dL (2.5-4.9)
[2024-02-17] MEDS: 0.9% Normal Saline (1000mL) 1,000 ML 75 ML IV (05:54)
[2024-02-17] MEDS: oxyCODONE 5 MG Tablet 10 MG PO (06:09)
[2024-02-17 06:42] LABS: Troponin-I HS 79 pg/mL (3.0-78.0)
[2024-02-17] MEDS: Budesonide Respules 0.5 MG/2 ML AMPUL.NEB. INHALATION ×2 (07:11→20:36)
[2024-02-17] MEDS: Nystatin Powder 15gm Bottle 1 APPLIC TOPICAL ×2 (09:06→20:43)
[2024-02-17] MEDS: Menthol/Lanolin/Calamine/Znox 113 GM Tube 1 APPLIC TOPICAL ×2 (09:06→20:42)
[2024-02-17 09:07] LABS: Troponin-I HS 105 pg/mL (3.0-78.0)
[2024-02-17] MEDS: Lidocaine 5% Patch 1 PATCH TOPICAL (09:07)
[2024-02-17] MEDS: Acyclovir 800 MG Tablet PO ×4 (09:12→20:44)
--- NOTE | 2024-02-17 11:33 | PN.HOSP_ITS ---
Reason for Visit Reason for Visit: Diagnoses Syncope and collapse (02/17/24) Subjective Subjective Patient was recently hospitalized for over a week for a heart failure exacerbation. Was heavily diuresed during that admission with significant imp rovement. Was discharged home on afternoon of 02/15. Unfortunately had an episode of passing out at home on the evening of 02/15 and came back to the ED. He was found to be dry appearing on exam and orthostatic vitals were positive. Was suspected that patient was overdiuresed, so IV fluids were started for him. I saw patient at the bedside later this morning. Notably, I followed with the patient for the entirety of his previous hospitalization. Patient appeared slightly more fatigued this morning than at the end of his recent hospitalization. He was otherwise laying comfortably in bed, answering question appropriately and in no acute distress. He denied any fevers or chills. He did report ongoing back pain, similar to on this recent admission. No other acute concerns this morning. Objective Data Objective Data Vital Signs: Vital Signs Temp Pulse Resp BP Pulse Ox O2 Del Method O2 Flow Rate 100.9 F H 86 18 122/78 H 98 Nasal Cannula 4 02/17/24 09:05 02/17/24 09:05 02/17/24 09:05 02/17/24 09:05 02/17/24 09:05 02/17/24 09:05 02/17/24 08:52 Oxygen Flow Rate (L/min) 4 Oxygen Delivery Method Nasal Cannula Weight: 108.5 kg Body Mass Index (BMI) 33.3 Intake & Output: Intake and Output for Last 24 Hours 02/15/24 02/16/24 02/17/24 23:59 23:59 23:59 Intake Total 750 / 750 Balance 750 / 750 Lab / Micro Data 02/17/24 03:55 02/17/24 03:00 Labs: Laboratory Results - last 24 hr 02/17/24 03:00: WBC Cancelled, Corrected WBC Cancelled, RBC Cancelled, Hgb Cancelled, Hct Cancelled, MCV Cancelled, MCH Cancelled, MCHC Cancelled, RDW Std Deviation Cancelled, RDW Coeff of Medardo Cancelled, Plt Count Cancelled, MPV Cancelled, Immature Gran % (Auto) Cancelled, Neut % (Auto) Cancelled, Lymph % (Auto) Cancelled, [place] % (Auto) Cancelled, Eos % (Auto) Cancelled, Baso % (Auto) Cancelled, Absolute Neuts (auto) Cancelled, Absolute Lymphs (auto) Cancelled, Total Counted Cancelled, Neutrophils % (Manual) Cancelled, Band Neutrophils % Cancelled, Lymphocytes % (Manual) Cancelled, Monocytes % (Manual) Cancelled, Eosinophils % (Manual) Cancelled, Basophils % (Manual) Cancelled, Metamyelocytes % Cancelled, Myelocytes % Cancelled, Promyelocytes % Cancelled, Blast Cells % Cancelled, Plasma Cell % (Manual) Cancelled, Other Cells % Cancelled, Nucleated RBC % Cancelled, Nucleated RBCs/100 WBC Cancelled, Differential Comment Cancelled, Diff Path Review Cancelled, Hypersegmented Neuts Cancelled, Atypical Lymphocytes Cancelled, Reactive Lymphocytes Cancelled, Smudge Cells Cancelled, Toxic Granulation Cancelled, Toxic Vacuolation Cancelled, Dohle Bodies Cancelled, Yogesh Rods Cancelled, Platelet Estimate Cancelled, Plt Morphology Comment Cancelled, RBC Morphology Cancelled 02/17/24 03:00: RBC Morphology Cancelled, Polychromasia Cancelled, Hypochromasia Cancelled, Basophilic Stippling Cancelled, Anisocytosis Cancelled, Microcytosis Cancelled, Macrocytosis Cancelled, Spherocytes Cancelled, Sickle Cells Cancelled, Target Cells Cancelled, Tear Drop Cells Cancelled, Ovalocytes Cancelled, Stomatocytes Cancelled, [place] Bodies Cancelled, Nima Cells Cancelled, Bite Cells Cancelled, Crenated Cell Cancelled, Acanthocytes (Spur) Cancelled, Rouleaux Cancelled, Schistocytes Cancelled, PT 20.5 H, INR 1.8, Sodium 134 L, Potassium 4.7, Chloride 98, Carbon Dioxide 30.0, Anion Gap 6, BUN 27 H, Creatinine 1.18, Estim Creat Clear Calc 71.14, Est GFR (MDRD) Af Amer 78, Est GFR (MDRD) Non-Af 64, BUN/Creatinine Ratio 22.9 H, Glucose 132 H, Calcium 9.1, Phosphorus 2.3 L, Magnesium 2.2, Troponin I High Sens 40 02/17/24 03:55: WBC 9.2, RBC 4.11 L, Hgb 11.6 L, Hct 36.8 L, MCV 89.5, MCH 28.2, MCHC 31.5 L, RDW Std Deviation 53.1 H, RDW Coeff of Medardo 16.3 H, Plt Count 173, MPV 10.8, Immature Gran % (Auto) 0.500, Neut % (Auto) 81.0 H, Lymph % (Auto) 6.9 L, [place] % (Auto) 9.2, Eos % (Auto) 1.3, Baso % (Auto) 1.1 H, Absolute Neuts (auto) 7.4, Absolute Lymphs (auto) 0.63 L, Nucleated RBC % 0 02/17/24 06:00: Troponin I High Sens 79 H 02/17/24 08:40: Troponin I High Sens 105 H Radiography Diagnostic Testing: Radiology Impression Chest X-Ray 02/17/24 03:20 IMPRESSION: Markedly improved pulmonary venous congestion. Electronically Signed: Landon Qureshi MD at 8:07 EDT , Rhythm Strip Rhythm Strip: A-fib Rate: 107 Ectopy: PVC(s) Physical Exam Const alert, oriented x3 and no apparent distress Constitutional Narrative: Elderly male, morbidly obese, laying comfortably in bed, moderately fatigued appearing, otherwise conversing normally, in no acute distress. General Appearance: cooperative and comfortable HEENT normocephalic, head/scalp atraumatic, hearing grossly normal bilaterally and nasal mucous membranes and turbinates normal Mouth: dry mucous membranes Eyes PERRL, EOMs intact bilaterally and conjunctivae normal Neck full ROM Chest inspection of chest normal Resp normal respiratory effort, normal air movement, no use of accessory muscles and clear to auscultation bilaterally Resp Narrative: Breathing comfortably on 4 L nasal cannula with oxygen saturations in the high 90s. Mildly decreased breath sounds bilaterally throughout, no wheezing or crackles noted. Cardio regular rate, regular rhythm, no murmurs and peripheral pulses 2+ throughout GI normal to inspection, nondistended, normoactive bowel sounds, soft to palpation, non-tender and non-distended Narrative: Scrotal edema noted but much improved from previous admission. No suprapubic tenderness noted. Back/Spine normal ROM Extremity full ROM Extremity Narrative: Bilateral lower extremities wrapped with Carlos wrap from knee down to toes. Patient had ulcers on bilateral gregorio and left lower leg noted on previous admission, were noninfectious appearing and remained stable during that hospitalization. Will ensure that these ulcers are evaluated by nursing and/or wound care. Skin Skin Narrative: Right lateral low back lesions appear moderately improved from previous admission. Neuro moves all extremities and no focal motor deficits Speech: speech normal Psych mental status grossly normal Assessment & Plan Assessment/Plan (1) Syncope and collapse: PLAN: Plan Patient is a 73-year-old male who presented to [facility] ED on 02/17/2024 after a syncopal episode at home. 1. Syncopal episode presumed secondary to orthostatic hypotension from o verdiuresis, mild creatinine elevation Patient recently hospitalized from 02/06 to 02/15 for HFpEF exacerbation due to nonadherence to home diuretics. Diuresed heavily during that admission with approximate 15 to 20 L of fluid removed. Patient's creatinine was stable at baseline discharge. Had syncopal episode at home on evening of 02/15. Orthostatic vitals positive in ED on 02/16, appeared dry on exam. Creatinine mildly elevated on 02/16 compared to 02/15. ? Will give a total of 1 L normal saline on 02/16. Home Lasix held. Will repeat orthostatic vitals on 02/17. Monitor daily BMP and urine output. 2. Recent HFpEF exacerbation, moderate pulmonary hypertension ? See discharge summary from 02/15 for further details. Holding home Lasix for now as noted above. 3. Low-grade fevers of unclear etiology ? Noted on 02/16 to have low-grade fevers up to 100.2 on several checks. Unclear etiology. WBC count 9 on day of admit, mildly elevated from previous but was likely hemoconcentrated. Chest x-ray on 02/16 with no concern for pneumonia. On warfarin, minimal concern for DVT/PE despite minimal activity recently. Highest concern is for possible UTI. Will empirically treat with IV ceftriaxone for now. UA ordered. Trend daily CBC. 4. BPH with obstructive symptoms ? Had Lima in place for majority of previous hospitalization largely for convenience given patient's debility and heavy diuresis. Lima was removed on 02/14 and patient passed voiding trial without issue. Per nursing staff, has been voiding without issue since admission on 02/16. Continue home terazosin. 5. Right lower back lesions concerning for shingles ? Continue treatment with acyclovir 4 times daily to complete 7-day course. 6. Debility ? PT/OT/case management following. Discharged home with home health care on 02/15, anticipate patient will again be okay for discharge home with home health care when medically ready. 7. Venous stasis ulcers ? Noted on previous hospitalization. Noninfectious appearing throughout hospitalization. Wound care followed at that time, wound care again to follow. Chronic medical conditions: ? Morbid obesity: BMI 33 on admit. Complicates hospital course, care and prognosis. ? A-fib: Rate controlled. INR therapeutic on admission. Continue home Lopressor and warfarin. ? History of vertebral fractures with chronic back pain: Follows with Dr. Musa with pain management. On pain control at home with oxycodone and acetaminophen, continue these while inpatient. Lidocaine patch ordered as well. DVT prophylaxis: Warfarin CODE STATUS: Full code, verified Expected disposition: TBD Total clinical time spent by myself addressing the patient's medical issues, reviewing all the data, and collaborating with patient's care team: 35 minutes. Charges/Coding Visit Charges Inpatient E&M: 39084 Subs Hosp L2
[2024-02-17] MEDS: Ceftriaxone 1 GM/50 ML BAG IV (12:12)
[2024-02-17 13:59] LABS: Bacteria 0 SEEN /hpf (None Seen); Mucous, Urine 0 SEEN /hpf (<or=2+)
[2024-02-17 14:02] LABS: Color, Urine Yellow (Yellow); Glucose, Dipstick Normal (Normal); Ketone-Dipstick 5 mg/dl (Negative); Leukocyte Esterase-Dipstick 500 /ul (Negative); Nitrite-Dipstick Negative (Negative); Occult Blood-Urine 250 /ul (Negative); Protein-Dipstick 30 mg/dl (Negative); Urine Clarity Sl. Cloudy (Clear); Urine Urobilinogen 4 mg/dl (Normal)
[2024-02-17 14:03] LABS: Urine Bilirubin Dipstick 1 mg/dL (Negative)
[2024-02-17 14:08] LABS: Red Blood Cells-Urine 10-25 SEEN /hpf (0-5); Squamous Epithelial Cells - UA 0-5 SEEN /hpf (0-5); White Blood Cells 50-100 SEEN /hpf (0-5)
[2024-02-17] MEDS: Acetaminophen 325 MG Tablet 650 MG PO ×2 (14:46→20:43)
[2024-02-17] MEDS: oxyCODONE 5 MG Tablet PO ×2 (14:47→20:43)
--- NOTE | 2024-02-17 14:55 | CASEMGMT ---
Readmission Note: Index: 02/07/24-02/16/24. Dx: CHF Readmission: 02/17/24. Dx: Syncope, Adult FTT Pt with a history of HFpEF, Pulmonary HTN, BPH, Chronic Venous stasis disease w/ ulcers, PAF, Morbid Obesity, HTN, HLD, Hx Vertebral Fx with chronic back pain, COPD, and Former tobacco use was admitted on the above noted dates for the corresponding dx?s. Pt arrived to [facility] ER with lightheadedness and dizziness and had a syncopal episode at home where his family found him on the floor at 1am. Dr. Wilkins states that he was heavily diuresed during the index admission. RN CM to pt room at this time and pt appears drowsy and somewhat confused. This RN CM introduced self and role at [facility]. This RN CM asked the pt if he was able to chicken picker his new Rx and states I think so and the pt then continued to fall asleep and could not stay awake for readmission assessment. The rest of the information was gathered from the pt chart for this assessment. Pt was set up with [facility] for SOC being Monday. The pt was set up with SN for his wound care needs. Dr. Wilkins states that the pt orthostatic VS are positive and that we will see what they are like tomorrow (02/17). SHEILA Carbajal updated on the pt status and states SW will also follow the pt in the case that the pt would need placement. Pt 6 click score is 8 currently. PT was unable to evaluate the pt d/t the reasons mentioned above. SHEILA and CM to follow for safe DC from [facility]. PLAN: TBD. Home with HHC vs SNF depending on pt progression in the hospital. Follow therapy.
[2024-02-17] MEDS: Doxazosin 1 MG Tablet 2 MG PO (20:44)
[2024-02-17] MEDS: Atorvastatin Calcium 10 MG Tablet 5 MG PO (20:44)
--- NOTE | 2024-02-17 23:58 | PCM.HOSP.N ---
Hospitalist Note Lab noting blood cultures, 2/2 with gram positive cocci. Not in report but lab was contacted and noted on the cultures they are in clusters. Currently on empiric rocephin but to be cautious will add IV vanc until resulted.
[2024-02-18] VITALS (9 sets, daily range): BP systolic 87–113; BP diastolic 56–73; PULSE 74–95; RESP 16–18; TEMP 35.9–37.3; O2SAT 92–97; BMI 26.4
[2024-02-18] MEDS: 0.9% Saline Lock 10 ML Syringe IV (00:39)
[2024-02-18] MEDS: Vancomycin HCl 2,000 MG in 0.9% Normal Saline (500mL Bag) 500 ML 250 MG IV (00:39)
[2024-02-18] MEDS: Acetaminophen 325 MG Tablet 650 MG PO ×3 (00:44→21:57)
[2024-02-18] MEDS: oxyCODONE 5 MG Tablet PO ×4 (00:44→21:57)
--- NOTE | 2024-02-18 00:46 | PCM.RX.CS ---
Consult Antibiotic Management Pharmacy has been consulted to manage selected antibiotic: Vancomycin Type of Intervention Type of Consult: New start Labs Labs: Sodium 134 mmol/L (136-145) L 02/17/24 03:00 Potassium 4.7 mmol/L (3.5-5.1) 02/17/24 03:00 Chloride 98 mmol/L (98-107) 02/17/24 03:00 Carbon Dioxide 30.0 mmol/L (21.0-32.0) 02/17/24 03:00 Anion Gap 6 (5-15) 02/17/24 03:00 BUN 27 mg/dL (7-18) H 02/17/24 03:00 Creatinine 1.18 mg/dL (0.70-1.30) 02/17/24 03:00 Est GFR (MDRD) Af Amer 78 mL/min (>60) 02/17/24 03:00 Est GFR (MDRD) Non-Af 64 mL/min (>60) 02/17/24 03:00 BUN/Creatinine Ratio 22.9 RATIO (10-20) H 02/17/24 03:00 Glucose 132 mg/dL (74-106) H 02/17/24 03:00 Microbiology Microbiology: Microbiology 02/17/24 10:55 Blood Culture (Wb) - Left Wrist Blood Culture - Preliminary 02/17/24 11:15 Blood Culture (Wb) - Left Wrist Blood Culture - Preliminary 02/17/24 11:22 Mucosa - Nose Respiratory Panel (PCR) - Final Dosing Weight Weight used for dosin.5 kg Estimated Creatinine Clearance Estimated Creatinine Clearance: 71.14 Goal Trough Goal Trough: 15-20 mcg/mL Pharmacy Plan for Drug Dosing Pharmacy Plan for Drug Dosing: Pharmacy Service will continue to monitor and adjust dosing as required. 2GM LOADING DOSE AND 1500 Q12H TROUGH PRIOR TO 4TH DOSE Follow-Up Labs Follow-Up Labs: Trough: Vancomycin Date/Time Labs Ordered Labs to be done on [date and time ordered]: 02/18 @ 1234
[2024-02-18] MEDS: Budesonide Respules 0.5 MG/2 ML AMPUL.NEB. INHALATION ×2 (06:37→20:06)
[2024-02-18 07:00] LABS: Absolute Lymphocyte Count 0.52 X10^3/uL (0.83-4.51); Absolute Neutrophil Count 7.2 X10^3/uL (2.0-7.7); Basophil# 0.09 X10^3/uL; Eosinophil# 0.01 X10^3/uL; Eosinophils% 0.1 % (0-5); Hemoglobin 10.4 g/dL (13.0-16.5); Lymphocyte # 0.52 X10^3/ul (0.83-4.51); Lymphocyte % 5.9 % (19-41); Mean Corp Hgb Conc 31.5 g/dL (32-36); Mean Corpuscular Hgb 28.3 pg (27.0-32.0); Mean Corpuscular Volume 89.7 fL (80-94); Mean Platelet Vol. 10.6 fl (6.2-12.0); Monocyte% 10.3 % (0-10); NRBC Flagged by Analyzer 0 % (0-5); Neutrophil # 7.22 X10^3/uL (2.7-7.7); Neutrophil % 82.4 % (47-70); POSITIVE DIFFERENTIAL YES; Platelet Count 141 K/mm3 (150-450); RBC Distribution Width CV 16.4 % (11.6-14.6); RBC Distribution Width SD 54.4 fl (35.1-43.9); Red Blood Count 3.68 M/mm3 (4.6-6.2); White Blood Count 8.8 K/mm3 (4.4-11.0)
[2024-02-18 08:04] LABS: ALB/GLOB Ratio 0.5 RATIO (0.9-2.4); AST(SGOT) 29 U/L (15-37); Alanine Aminotransfer ALT/SGPT 13 U/L (16-61); Albumin, Serum 2.3 g/dL (3.2-5.0); Alkaline Phosphatase 71 U/L (45-117); Anion Gap 6 (5-15); BUN 32 mg/dL (7-18); Calcium,Total 8.2 mg/dL (8.5-10.1); Chloride 100 mmol/L (98-107); Creatinine, Serum 0.74 mg/dL (0.70-1.30); EST Glomerular Filtration Rate 109 mL/min (>60); Est Glom Filt Rate - Afr Amer 132 mL/min (>60); Estimated Creatinine Clearance 86.28 ml/min; Globulin 4.6 g/dL (2.2-4.2); Glucose 103 mg/dL (74-106); Potassium 3.2 mmol/L (3.5-5.1); Protein, Total 6.9 g/dL (6.4-8.2); Sodium Level 134 mmol/L (136-145)
[2024-02-18 08:26] LABS: Prothrombin Time (Protime)PT. 22.4 SECONDS (11.7-14.9)
[2024-02-18] MEDS: Lidocaine 5% Patch 1 PATCH TOPICAL (09:01)
[2024-02-18] MEDS: Acyclovir 800 MG Tablet PO ×4 (09:01→21:58)
[2024-02-18] MEDS: Menthol/Lanolin/Calamine/Znox 113 GM Tube 1 APPLIC TOPICAL ×2 (09:02→21:57)
[2024-02-18] MEDS: Nystatin Powder 15gm Bottle 1 APPLIC TOPICAL ×2 (09:03→21:57)
[2024-02-18] MEDS: Ceftriaxone 1 GM/50 ML BAG IV (09:07)
--- NOTE | 2024-02-18 11:00 | PCM.PN.HOSP ---
Reason for Visit Reason for Visit: Diagnoses Syncope and collapse (02/17/24) Subjective Subjective Was notified by nursing staff early this morning that patient's blood cultures from 02/16 are 2 out of 2 preliminarily positive for Staph aureus. No other acute events overnight. Patient seen at bedside this morning. Patient was sitting up in bed but continues to appear fairly fatigued today, similar to yesterday and more fatigued than on his recent admission. He states that he was able to eat a small breakfast but generally does not feel very hungry. He denies having any fevers or chills. He denies any acute pain or discomfort. No other acute concerns. Objective Data Objective Data Vital Signs: Vital Signs Temp Pulse Resp BP Pulse Ox O2 Del Method O2 Flow Rate 96.7 F L 80 16 87/58 L 97 Nasal Cannula 3 02/18/24 09:13 02/18/24 09:13 02/18/24 09:13 02/18/24 09:13 02/18/24 09:13 02/18/24 09:13 02/18/24 10:14 Oxygen Flow Rate (L/min) 3 Oxygen Delivery Method Nasal Cannula Weight: 86.1 kg Body Mass Index (BMI) 26.4 Intake & Output: Intake and Output for Last 24 Hours 02/16/24 02/17/24 02/18/24 23:59 23:59 23:59 Intake Total 2190 / 2190 540 / 540 Output Total 300 / 500 200 / 200 Balance 1890 / 1690 340 / 340 Lab / Micro Data 02/18/24 06:35 02/18/24 06:35 Labs: Laboratory Results - last 24 hr 02/17/24 13:50: Urine Color Yellow, Urine Clarity Sl. Cloudy, Urine pH 7.0, Ur Specific [place] 1.010, Urine Protein 30 H, Urine Glucose (UA) Normal, Urine Ketones 5 H, Urine Occult Blood 250 H, Urine Nitrite Negative, Urine Bilirubin 1 H, Urine Urobilinogen 4 H, Ur Leukocyte Esterase 500 H, Urine RBC 10-25 SEEN, Urine WBC 50-100 SEEN, Ur Squamous Epith Cells 0-5 SEEN, Urine Bacteria 0 SEEN, Urine Mucus 0 SEEN 02/18/24 06:35: WBC 8.8, RBC 3.68 L, Hgb 10.4 L, Hct 33.0 L, MCV 89.7, MCH 28.3, MCHC 31.5 L, RDW Std Deviation 54.4 H, RDW Coeff of Medardo 16.4 H, Plt Count 141 L, MPV 10.6, Immature Gran % (Auto) 0.300, Neut % (Auto) 82.4 H, Lymph % (Auto) 5.9 L, Buchanan % (Auto) 10.3 H, Eos % (Auto) 0.1, Baso % (Auto) 1.0, Absolute Neuts (auto) 7.2, Absolute Lymphs (auto) 0.52 L, Nucleated RBC % 0, PT 22.4 H, INR 2.0, Sodium 134 L, Potassium 3.2 L, Chloride 100, Carbon Dioxide 28.0, Anion Gap 6, BUN 32 H, Creatinine 0.74, Estim Creat Clear Calc 86.28, Est GFR (MDRD) Af Amer 132, Est GFR (MDRD) Non-Af 109, BUN/Creatinine Ratio 43.0 H, Glucose 103, Calcium 8.2 L, Total Bilirubin 1.90 H, AST 29, ALT 13 L, Alkaline Phosphatase 71, Total Protein 6.9, Albumin 2.3 L, Globulin 4.6 H, Albumin/Globulin Ratio 0.5 L Micro: Microbiology 02/17/24 11:15 Blood Culture (Wb) - Left Wrist Blood Culture - Preliminary Staphylococcus aureus 02/17/24 10:55 Blood Culture (Wb) - Left Wrist Bacteria Detection (PCR) - Final Staphylococcus aureus 02/17/24 10:55 Blood Culture (Wb) - Left Wrist Blood Culture - Preliminary 02/17/24 11:22 Mucosa - Nose Respiratory Panel (PCR) - Final Rhythm Strip Rhythm Strip: A-fib Rate: 107 Ectopy: PVC(s) Physical Exam Const alert, oriented x3 and no apparent distress Constitutional Narrative: Elderly male, morbidly obese, laying comfortably in bed, moderately fatigued appearing, otherwise conversing normally, in no acute distress. General Appearance: cooperative and comfortable HEENT normocephalic, head/scalp atraumatic, hearing grossly normal bilaterally and nasal mucous membranes and turbinates normal Mouth: dry mucous membranes Eyes PERRL, EOMs intact bilaterally and conjunctivae normal Neck full ROM Chest inspection of chest normal Resp normal respiratory effort, normal air movement, no use of accessory muscles and clear to auscultation bilaterally Resp Narrative: Breathing comfortably on 4 L nasal cannula with oxygen saturations in the high 90s. Mildly decreased breath sounds bilaterally throughout, no wheezing or crackles noted. Cardio regular rate, regular rhythm, no murmurs and peripheral pulses 2+ throughout GI normal to inspection, nondistended, normoactive bowel sounds, soft to palpation, non-tender and non-distended Narrative: Scrotal edema noted but much improved from previous admission. No suprapubic tenderness noted. Back/Spine normal ROM Extremity full ROM Extremity Narrative: Bilateral lower extremities wrapped with Carlos wrap from knee down to toes. Skin Skin Narrative: Right lateral low back lesions appear moderately improved from previous admission. Neuro moves all extremities and no focal motor deficits Speech: speech normal Psych mental status grossly normal Assessment & Plan Assessment/Plan (1) Syncope and collapse: (2) Staphylococcus aureus bacteremia: (3) Sepsis: PLAN: Plan Patient is a 73-year-old male who presented to [facility] ED on 02/17/2024 after a syncopal episode at home. 1. Syncopal episode Patient recently hospitalized from 02/06 to 02/15 for HFpEF exacerbation due to nonadherence to home diuretics. Diuresed heavily during that admission with approximate 15 to 20 L of fluid removed. Patient's creatinine was stable at baseline discharge. Had syncopal episode at home on evening of 02/15. Was presumed that this was secondary to orthostatic hypotension from overdiuresis, as his orthostatic vitals positive in ED on 02/16 and he appeared dry on exam. Creatinine also mildly elevated on 02/16 compared to 02/15. Given 1 L normal saline on 02/16 with good improvement in creatinine but blood pressures remained about the same. ? Blood cultures positive for staph on 02/17, now suspect hypotension leading to syncopal episode was multifactorial in setting of overdiuresis and sepsis as noted below. Treat sepsis as noted below. 2. Sepsis without shock secondary to staph aureus bacteremia Blood cultures from 02/16 came back +2/2 for staph aureus on 02/17, sensitivites pending. Unclear source of infection. Chest x-ray on 02/16 with no concern for pneumonia. UA noninfectious. Does have skin lesions noted on legs as well as right-sided back but these appear stable from previous, seem less likely to be source of infection. Notably patient had TTE on 02/07 during prior admission that showed new moderate to severe aortic stenosis. Had low-grade fevers on 02/15 and 02/16 with highest temp of 100.8. Has also had borderline low to low blood pressure since admission. ? Infectious disease consulted. Started on IV vancomycin on 02/17. Follow-up blood culture sensitivities. Have concern for possible heart involvement given changes on recent echo, will defer to ID on need for possible YADI. Repeat blood cultures ordered for 02/18. Will give another 1.5 L of IV fluids on 02/17 to complete a full sepsis bolus. 3. Recent HFpEF exacerbation, moderate pulmonary hypertension ? See discharge summary from 02/15 for further details. Holding home Lasix for now as noted above. 4. BPH with obstructive symptoms ? Had L[place] in place for majority of previous hospitalization largely for convenience given patient's debility and heavy diuresis. Lima was removed on 02/14 and patient passed voiding trial without issue. Per nursing staff, has been voiding without issue since admission on 02/16. Continue home terazosin. 5. Right lower back lesions concerning for shingles ? Continue treatment with acyclovir 4 times daily to complete 7-day course. 6. Debility ? PT/OT/case management following. Discharged home with home health care on 02/15, anticipate patient will again be okay for discharge home with home health care when medically ready. 7. Venous stasis ulcers ? Noted on previous hospitalization. Noninfectious appearing throughout hospitalization. Wound care followed at that time, wound care again to follow. Chronic medical conditions: ? Morbid obesity: BMI 33 on admit. Complicates hospital course, care and prognosis. ? A-fib: Rate controlled. INR therapeutic on admission. Continue home Lopressor and warfarin. ? History of vertebral fractures with chronic back pain: Follows with Dr. Musa with pain management. On pain control at home with oxycodone and acetaminophen, continue these while inpatient. Lidocaine patch ordered as well. DVT prophylaxis: Warfarin CODE STATUS: Full code, verified Expected disposition: TBD Total clinical time spent by myself addressing the patient's medical issues, reviewing all the data, and collaborating with patient's care team: 35 minutes. Charges/Coding Visit Charges Inpatient E&M: 00799 Subs Hosp L2
[2024-02-18] MEDS: Vancomycin HCl 1,500 MG in 0.9% Normal Saline (500mL Bag) 500 ML 250 MG IV (14:32)
[2024-02-18] MEDS: Potassium Chloride Oral Tablet 20 MEQ 40 MEQ PO (14:34)
[2024-02-18] MEDS: Lactated Ringers 1,000 ML 250 ML IV (17:48)
[2024-02-18] MEDS: Lactated Ringers 1,000 ML 100 ML IV (20:22)
[2024-02-18] MEDS: Doxazosin 1 MG Tablet 2 MG PO (21:58)
[2024-02-18] MEDS: Atorvastatin Calcium 10 MG Tablet 5 MG PO (21:58)
[2024-02-19] VITALS (9 sets, daily range): BP systolic 99–114; BP diastolic 55–78; PULSE 55–102; RESP 18–24; TEMP 35.9–37.2; O2SAT 93–98; BMI 34.7
[2024-02-19] MEDS: Vancomycin HCl 1,500 MG in 0.9% Normal Saline (500mL Bag) 500 ML 250 MG IV ×2 (00:14→13:55)
[2024-02-19] MEDS: oxyCODONE 5 MG Tablet PO ×4 (03:19→21:11)
[2024-02-19] MEDS: Acetaminophen 325 MG Tablet 650 MG PO (03:19)
--- NOTE | 2024-02-19 04:14 | CPS ---
Pt brought in own cpap from home, 3L bled in
[2024-02-19 04:21] LABS: Hematocrit 32.5 % (40-54); Hemoglobin 10.3 g/dL (13.0-16.5); Mean Corp Hgb Conc 31.7 g/dL (32-36); Mean Corpuscular Hgb 28.5 pg (27.0-32.0); Mean Corpuscular Volume 89.8 fL (80-94); Mean Platelet Vol. 10.9 fl (6.2-12.0); Platelet Count 132 K/mm3 (150-450); RBC Distribution Width CV 16.1 % (11.6-14.6); RBC Distribution Width SD 53.3 fl (35.1-43.9); Red Blood Count 3.62 M/mm3 (4.6-6.2); White Blood Count 6.2 K/mm3 (4.4-11.0)
[2024-02-19 04:48] LABS: Anion Gap 5 (5-15); BUN 24 mg/dL (7-18); Calcium,Total 8.5 mg/dL (8.5-10.1); Chloride 100 mmol/L (98-107); Creatinine, Serum 0.62 mg/dL (0.70-1.30); EST Glomerular Filtration Rate 136 mL/min (>60); Est Glom Filt Rate - Afr Amer 164 mL/min (>60); Estimated Creatinine Clearance 103.56 ml/min; Glucose 95 mg/dL (74-106); Potassium 3.6 mmol/L (3.5-5.1); Sodium Level 131 mmol/L (136-145)
[2024-02-19] MEDS: Budesonide Respules 0.5 MG/2 ML AMPUL.NEB. INHALATION ×2 (07:31→19:54)
--- NOTE | 2024-02-19 08:58 | PN.HOSP_ITS ---
Reason for Visit Reason for Visit: Syncope Subjective Subjective Mr. Monteiro is a 73-year-old white male who presented to emergency department at [facility] on 02/17/2024 after a syncopal event. The patient has a very complicated past medical history. He was discharged here recently on 02/16/2024 following treatment for heart failure with preserved ejection fraction and new moderate to severe aortic valve stenosis with scrotal edema. Echocardio gram was done at that time and showed EF of 65 to 70%, concentric LVH, moderately enlarged LA and RA, normal RV and moderate to severe aortic valve stenosis with plan for outpatient cardiac catheterization. He is on empiric acyclovir for suspected shingles and represented on 02/17/2024 after his syncopal episode that he experienced at home. He denied any injury but was found at approximately 1 AM by his family. He was complaining of lightheadedness and dizziness with positional changes prior to the syncopal event and reported he felt significantly weak and fatigued when he was trying activity. He did diurese extremely well to the point where he had 42 pounds of weight loss during his last hospitalization. Vital signs on presentation showed a temperature of 97, heart rate 118, blood pressure 123/85, respiratory was 33 and oxygen saturations were 95% on 4 L. He is typically on room air at baseline. His CBC showed a normal white count and stable hemoglobin but he did have a lymphocyt osis. His BMP showed mild hyponatremia the sodium of 134 and a serum creatinine of 1.18 which is close to his baseline. His troponin was 40. Chest x-ray showed no acute findings. EKG was A-fib with RVR showing a heart rate of 117 but no evidence of acute ischemia. He was given 500 cc bolus in the emergency department admitted to the medical floor. Blood cultures were obtained prior to admission by the emergency department. His orthostatic vital signs were positive on presentation and he did appear dry. His Lasix were held and he was given IV fluids. Preliminary blood cultures were noted to have gram-positive cocci in clusters which is concerning for staph species. He was started on vancomycin and further identification was to Staph aureus yesterday. Patient states that he is not feeling much better overall since admission however his son reports that he was not able to remember anything at the time of presentation. So his mental status is better however overall clinically he is not feeling much better. They did have a long conversation with Dr. Shady Obrien today with regards to his aortic stenosis and the overall plan with regards to his valve and bacteremia. Objective Data Objective Data Vital Signs: Vital Signs Temp Pulse Resp BP Pulse Ox O2 Del Method O2 Flow Rate 97.4 F L 81 19 H 103/64 95 Nasal Cannula 3 02/19/24 03:20 02/19/24 07:20 02/19/24 07:20 02/19/24 03:20 02/19/24 08:27 02/19/24 08:27 02/19/24 08:27 Oxygen Flow Rate (L/min) 3 Oxygen Delivery Method Nasal Cannula Weight: 113 kg Body Mass Index (BMI) 34.7 Intake & Output: Intake and Output for Last 24 Hours 02/17/24 02/18/24 02/19/24 23:59 23:59 23:59 Intake Total 2190 / 2190 2320 / 2570 2280 / 2280 Output Total 300 / 500 650 / 1050 950 / 950 Balance 1890 / 1690 1670 / 1520 1330 / 1330 Lab / Micro Data 02/19/24 04:05 02/19/24 04:05 Labs: Laboratory Results - last 24 hr 02/18/24 06:35: PT 22.4 H, INR 2.0 02/19/24 04:05: WBC 6.2, RBC 3.62 L, Hgb 10.3 L, Hct 32.5 L, MCV 89.8, MCH 28.5, MCHC 31.7 L, RDW Std Deviation 53.3 H, RDW Coeff of Medardo 16.1 H, Plt Count 132 L, MPV 10.9, Sodium 131 L, Potassium 3.6, Chloride 100, Carbon Dioxide 26.0, Anion Gap 5, BUN 24 H, Creatinine 0.62 L, Estim Creat Clear Calc 103.56, Est GFR (MDRD) Af Amer 164, Est GFR (MDRD) Non-Af 136, BUN/Creatinine Ratio 39.0 H, Glucose 95, Calcium 8.5 Micro: Microbiology 02/17/24 11:15 Blood Culture (Wb) - Left Wrist Blood Culture - Preliminary Staphylococcus aureus 02/17/24 10:55 Blood Culture (Wb) - Left Wrist Bacteria Detection (PCR) - Final Staphylococcus aureus 02/17/24 10:55 Blood Culture (Wb) - Left Wrist Blood Culture - Preliminary Meth. resistant Staph. aureus 02/17/24 13:50 Urine, Clean Catch Urine Culture - Final Proteus sp. 02/17/24 11:22 Mucosa - Nose Respiratory Panel (PCR) - Final Rhythm Strip Rhythm Strip: A-fib Rate: 107 Ectopy: PVC(s) Physical Exam Const alert, oriented x3, no apparent distress and well nourished; Negative for average body habitus or healthy appearing Constitutional Narrative: Obese, older, white male, sitting up in bed, currently appears comfortable and nontoxic, son is at the bedside, he does appear chronically ill and older than stated age HEENT head/scalp atraumatic and moist oral mucous membranes HEENT Narrative: Dentition is extremely poor with multiple missing teeth and significant gum recession Head and Scalp: normocephalic Eyes PERRL, EOMs intact bilaterally and conjunctivae normal Eyes Narrative: No scleral icterus Neck no lymphadenopathy and supple Neck Narrative: Trachea midline, no thyroid enlargement Resp normal respiratory effort, no retractions, no use of accessory muscles and No clear to auscultation bilaterally Resp Narrative: Crackles at bases bilaterally with normal aeration at the apices, no signs of respiratory distress Auscultation: crackles; Negative for rhonchi or wheezes Cardio regular rate, S1 normal heart sound, no rub, no gallops and no clicks; Negative for regular rhythm, S2 normal heart sound or no murmurs Cardio Narrative: Irregular irregular rhythm with good rate control, 3 out of 6 to 4 out of 6 s ystolic murmur with quiet S2, radiates to bilateral carotids GI normal to inspection, nondistended, normoactive bowel sounds, soft to palpation and non-tender Extremity Extremity Narrative: Lower extremities are wrapped in Carlos bandages after wound dressing changes, patient with ongoing chronic edema but improved with wrinkling of the skin from previous hospitalization, no cyanosis or clubbing is noted Skin Skin Narrative: Bilateral lower extremity wounds noted and reviewed pictures done by wound care, skin is extremely dry on bilateral legs, erythema of flank area noted Neuro oriented x3, moves all extremities and no focal motor deficits Neuro Narrative: Significant generalized weakness noted but no focal deficits Speech: speech normal Psych Psych Narrative: affect is slightly flat however eye contact is good and patient is able to interact appropriately and asked good questions Assessment & Plan Assessment/Plan (1) Staphylococcus aureus bacteremia: (2) Syncope and collapse: (3) Aortic stenosis: PLAN: Plan Staph aureus bacteremia -Patient did not rate criteria for sepsis per Sep 1 or Sep 3 guidelines -Likely related to skin -Repeat blood cultures today -Patient had recent TTE--> likely needs YADI--> cardiology consultation pending -Continue vancomycin -ID consult is pending--> Dr. Currie was notified via text Syncope -Suspect related to overdiuresis with severe aortic stenosis -Patient was orthostatic on admission -Continue to hold diuresis -Patient was given 1-1/2 L of IV fluids -May need YADI with Staph aureus bacteremia -Consult cardiology Moderate to severe aortic stenosis -Cardiology consultation pending -YADI versus transfer to tertiary center -Likely contributed to syncopal event -Now in the setting of Staph aureus bacteremia Hypoxia -This is new -May be related to bacteremia -Etiology is not clear at this time -Check CTA of the chest -Patient is chronically anticoagulated however his INR was subtherapeutic at 1.8 and 1.9 on admission - Chest x-ray on presentation was unremarkable Persistent atrial fibrillation/RVR on presentation -Rate is now controlled -INR was 2.0 yesterday -Repeat INR in a.m. 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 INR CODE STATUS -Full code is verified on admission Charges/Coding Visit Charges Inpatient E&M: 70995 [facility] Hosp L3
--- NOTE | 2024-02-19 09:20 | CT_ITS ---
STUDY: CTA CHEST REASON FOR EXAM: Male, 73 years old. History of CHF. Hypoxia. RADIATION DOSAGE (If Supplied By Facility): CTDIvol = ( 49.43 ) mGy, DLP = ( 1486.19 ) mGycm TECHNIQUE: The examination was performed with the intravenous administration of IV 100mL Isovue-370. Post-processing of the angiographic images was performed, with multiplanar reformation and 3D reconstruction. Individualized dose optimization techniques were used for this CT. COMPARISON: Comparison is made with prior chest radiograph dated February 17, 2024. FINDINGS: Normal enhancement of the main pulmonary artery and right and left pulmonary arteries. Normal enhancement of the bilateral peripheral pulmonary arteries. There is no demonstrated pulmonary embolism. Normal thoracic aorta and visualized great vessels. There is no demonstrated aortic dissection. There are calcifications of the coronary arteries. Mildly enlarged mediastinal lymph nodes. These may be reactive. Normal hilar regions. Normal visualized trachea and bronchi. The lungs are well expanded. Mild degree of emphysematous changes. There is a 1.8 cm x 0.7 cm pleural-based nodule in the superior medial aspect of the left lower lobe. Small bilateral pleural effusions left slightly greater than right with bibasilar atelectasis and/or infiltrates. Normal chest wall structures. There are degenerative changes of thoracic spine. Increased kyphosis. Almost complete collapse of the T11 vertebrae. Normal visualized upper abdomen. CT/CTA Chest W/WO Contrast IMPRESSION: Increased markings at the lung bases with small bilateral pleural effusions left greater than right suggestive of atelectasis and/or early infiltrates. There is a 1.8 cm x 0.7 cm pleural-based nodule in the superior medial aspect of the left lower lobe. This may represent a focal area of infiltrate. Follow-up recommended. No evidence of pulmonary embolism. Electronically Signed: Anderson Vivas MD at 10:26 EDT ,
--- NOTE | 2024-02-19 09:35 | ECHOD_ITS ---
Reason For Study: Bacteremia Procedure This was a 2D Doppler, Color Flow transthoracic echocardiogram. Exam performed portable in patient room. Left Ventricle Normal left ventricle. Moderate concentric left ventricular hypertrophy. D shaped septum in diastole. Left ventricular systolic function is lower limits of normal. The left ventricular ejection fraction is 50 %. Right Ventricle Normal RV size. Mild global right ventricular systolic dysfunction. Tricuspid Valve Normal tricuspid valve. Moderate (2+) tricuspid valve insufficiency. Pulmonary artery systolic pressure is 80 mmHg. Moderate pulmonary hypertension. Aortic Valve Trisinus/trileaflet aortic valve. Severe diffuse aortic valve calcification. Peak aortic valve gradient 86 mmHg. Mean aortic valve gradient 45 mmHg. Critical aortic stenosis. Trivial aortic valve insufficiency. Pulmonic Valve Normal pulmonic valve. Great Vessels Normal aortic root. The pulmonary artery is normal size. The inferior vena cava is dilated. and partially collapses. Pericardium/Pleural No pericardial effusion. MMode/2D Measurements & Calculations LVIDd: 5.8 cm IVSd: 1.5 cm LVOT diam: 2.3 cm LVIDs: 4.7 cm LVPWd: 1.4 cm LVOT area: 4.0 cm2 RVDd: 5.6 cm FS: 18.7 % Ao root diam: 3.9 cm LAV(MOD-bp): 141.0 ml LA dimension: 5.5 cm LA A4 area: 36.1 cm2 LAV(MOD-bp) Indexed: 60.8 ml/m2 LAV(MOD-sp2): 139.8 ml LAV(MOD-sp4): 134.2 ml RA A4 area: 38.2 cm2 TAPSE: 1.9 cm Time Measurements MV dec time: 0.17 sec Doppler Measurements & Calculations MV E max bar: 148.3 cm/sec Lat Peak E' Bar: 12.5 cm/sec Med Peak E' Bar: 7.4 cm/sec MV A max bar: 23.8 cm/sec E/E' lat: 11.8 E/E' med: 20.0 MV E/A: 6.2 MV V2 max: 158.6 cm/sec Ao V2 max: 464.0 cm/sec MV max P.1 mmHg MV dec slope: 540.1 cm/sec2 Ao max P.2 mmHg MV V2 mean: 75.9 cm/sec Ao V2 mean: 309.7 cm/sec MV mean P.2 mmHg Ao mean P.9 mmHg MV V2 VTI: 35.6 cm Ao V2 VTI: 98.5 cm AV (velocity ratio): 0.24 MVA(VTI): 2.6 cm2 MARY(I,D): 0.96 cm2 MARY(V,D): 1.0 cm2 LV V1 max: 119.3 cm/sec SV(LVOT): 94.3 ml PA V2 max: 145.4 cm/sec LV V1 max P.8 mmHg LV V1 mean P.7 mmHg LV V1 mean: 74.2 cm/sec LV V1 VTI: 23.3 cm TR max bar: 421.7 cm/sec TR max P.1 mmHg ECHO/Echo Complete Interpretation Summary Normal left ventricle. Moderate concentric left ventricular hypertrophy. Left ventricular systolic function is lower limits of normal. The left ventricular ejection fraction is 50 %. Severe diffuse aortic valve calcification. Mean aortic valve gradient 45 mmHg. Critical aortic stenosis. Pulmonary artery systolic pressure is 80 mmHg. Moderate pulmonary hypertension. No obvious valvular vegetations seen. Ordering Physician: Angela Welch Performed By: Salvatore Renteria RCS
--- NOTE | 2024-02-19 09:41 | CON.PCM.CA_ITS ---
Assessment & Plan Assessment/Plan (1) Staphylococcus aureus bacteremia: PLAN: The patient is growing MRSA out of his blood on at least 1 blood culture. This is being treated with vancomycin and ceftriaxone per the primary service. (2) Syncope and collapse: PLAN: The patient had an episode of syncope in his home environment with ambulation. He had recently been diuresed 42 pounds. His blood pressure by report has been borderline in his home environment. However he does have critical aortic stenosis. (3) Aortic stenosis: QUALIFIERS: Cardiac valve disease etiology: nonrheumatic Qualified Code(s): I35.0 - Nonrheumatic aortic (valve) stenosis PLAN: Last echocardiogram showed an peak gradient above 80 and a mean gradient of 46. LV function is normal. There is mild mitral regurgitation. Given the patient's MRSA in the bloodstream a repeat echocardiogram is indicated. Will perform a transthoracic echo today and schedule a transesophageal echo for 48 hours from now. I did discuss the situation with the structural heart team at [facility]. We will reevaluate the patient's situation once the YADI results are available. If the patient does not have active endocarditis by YADI the patient could be considered for aortic balloon valvuloplasty as a temporizing measure to bridge him to TAVR. If the patient has endocarditis by transesophageal echo criteria then surgical evaluation would be indicated. Prior to elective or semielective valve replacement the patient would need his dental situation addressed and the nonhealing foot ulcer addressed. (4) Longstanding persistent atrial fibrillation: PLAN: The patient has been in atrial fibrillation long-term per the report. He is on oral Coumadin therapy. He does have obstructive sleep apnea treated with BiPAP. (5) Chronic anticoagulation: PLAN: Continue his Coumadin with a target INR of 2?3. PLAN: Plan 1. Transthoracic echocardiogram. 2. Will schedule transesophageal echo for 02/20/2024 3. Continue IV antibiotic therapy. The patient will need to be proven to be sterile prior to replacement of his aortic valve. 4. Obtain Wound Center recommendations for his nonhealing ulcer. 5. Would need to start to make arrangements for evaluation of his dental situation and appropriate treatment as indicated to clear him for valve replacement. HPI Consult Data Date of Consult: 02/19/24 HPI Narrative HPI Narrative: ANDER DIAZ, is a 73 M who presents with a history of syncope in his home environment on Monday morning. He was walking from the bedroom into the kitchen to get a drink of water and called out to his and fell to the floor. Apparently he fell face down but there was no trauma to his face he did have some trauma to his left forearm. The patient was recently discharged from the hospital where he was diuresed 42 pounds over several days. By his report this is the first time he is ever had volume overload. The patient is now growing Staph aureus in his blood. He is on IV antibiotic therapy with the primary service. The patient also has a history of obstructive sleep apnea and he blames his port intention on his BiPAP machine causing a dry mouth but it appears every tooth in his mouth is infected or did it least extremely poor senior living. The question that came up was should the patient be evaluated for transesophageal echocardiography. [facility] Medical History (HFpEF) heart failure with preserved ejection fraction Anemia Aortic stenosis Chronic pain syndrome Compression fx, thoracic spine COPD (chronic obstructive pulmonary disease) Former smoker HLD (hyperlipidemia) Hypertension Longstanding persistent atrial fibrillation Obesity RAFAEL on CPAP Home Medications simvastatin 10 mg tablet 10 mg PO QHS cholesterol 09/06/22 [History Last Taken 02/16/24] terazosin 2 mg capsule 2 mg PO QHS prostate 09/06/22 [History Last Taken 02/16/24] warfarin 5 mg tablet 5 mg PO DAILY blood thinner 09/06/22 [History Last Taken 02/16/24] lidocaine 5 % topical patch 1 patch topical DAILY pain #15 ea 09/08/22 [Rx Last Taken Unknown] albuterol sulfate 90 mcg/actuation aerosol inhaler 1 puff inhalation Q4H PRN SOB 02/08/24 [History Last Taken 02/16/24] tiotropium 2.5 mcg-olodaterol 2.5 mcg/actuation mist for inhalation (Stiolto Respimat) 1 puff inhalation BID breathing 02/08/24 [History Last Taken Unknown] acetaminophen 500 mg tablet 1,000 mg (2 x 500 mg) PO Q8 pain 30 days #180 tabs 02/16/24 [Rx Last Taken 02/16/24] acyclovir 800 mg tablet 800 mg PO 4X/DAY 5 days #20 tabs 02/16/24 [Rx Last Taken 02/16/24] furosemide 40 mg tablet 40 mg PO DAILY 30 days #30 tabs 02/16/24 [Rx Last Taken 02/16/24] oxycodone 5 mg tablet 5 mg PO Q6H PRN PRN Pain Score 4-10 7 days #28 tabs 02/16/24 [Rx Last Taken 02/16/24] potassium chloride 20 mEq tablet,extended release(part/cryst) 20 meq PO DAILY 30 days #30 tabs 02/16/24 [Rx Last Taken 02/16/24] oxycodone 10 mg tablet 10 mg PO TID 02/17/24 [History Last Taken 02/16/24] Allergy/AdvReac Type Severity Reaction Status Date / Time pramoxine Allergy Rash Verified 02/07/24 17:06 Family History Mother Cancer Father CAD (coronary artery disease) Heart disease Hypertension Myocardial infarction Surgical History History of cardiac radiofrequency ablation (RFA) History of tonsillectomy and adenoidectomy Social History household members: family Smoking Status: Former smoker how long ago did patient quit smoking: Quit ~ 35 yrs prior. alcohol intake: never substance use type: does not use ROS Constitutional Constitutional: Reports as per HPI Eyes Eyes: Reports systems reviewed and no addt'l complaints, except as documented ENT HEENT: Reports systems reviewed and no addt'l complaints, except as documented Cardiovascular Cardiovascular: Reports as per HPI Respiratory/Chest Respiratory/Chest: Reports systems reviewed and no addt'l complaints, except as documented Gastrointestinal Gastrointestinal: Reports systems reviewed and no addt'l complaints, except as documented Genitourinary Genitourinary: Reports systems reviewed and no addt'l complaints, except as documented Musculoskeletal Musculoskeletal: Reports systems reviewed and no addt'l complaints, except as d ocumented Integumentary Integumentary: Reports systems reviewed and no addt'l complaints, except as documented Neurologic Neurologic: Reports systems reviewed and no addt'l complaints, except as documen baltazar Psychiatric Psychiatric: Reports systems reviewed and no addt'l complaints, except as documented Endocrine Endocrinology: Reports systems reviewed and no addt'l complaints, except as documented Hematologic/Lymphatic Hematologic/Lymphatic: Reports systems reviewed and no addt'l complaints, except as documented Allergic/Immunologic Allergic/Immunologic: Reports systems reviewed and no addt'l complaints, except as documented Physical Exam Const alert and oriented x3 HEENT normocephalic Eyes EOMs intact bilaterally Chest inspection of chest normal Resp normal respiratory effort Auscultation: crackles bilateral base Cardio S1 normal heart sound Rate: tachycardic Rhythm: abnormal rhythm irregularly irregular Heart Sounds: murmur systolic III/ harsh holo left sternal border, right sternal border, sternal notch, neck and axilla to the neck and to the left axilla and abnormal sounds diminished A2; Negative for click or gallop Extremity Extremity Narrative: Diffuse skin redundancy consistent with recent diuresis. Also noted dry ulcer on the left great toe. General Extremity: edema bilateral lower extremity Details: trace Skin Wound Narrative: Dry hyperpigmented deep dry ulcer on the left great toe Neuro Neuro Narrative: Alert and oriented x 3 Psych mental status grossly normal Risk Stratification Risk Stratification Applicable: No Charges/Coding Visit Charges Inpatient E&M: 75719 Init Hosp L3 Objective Data Vital Signs: Vital Signs Temp Pulse Resp BP Pulse Ox O2 Del Method O2 Flow Rate 97.4 F L 81 19 H 103/64 95 Nasal Cannula 3 02/19/24 03:20 02/19/24 07:20 02/19/24 07:20 02/19/24 03:20 02/19/24 08:27 02/19/24 08:27 02/19/24 08:27 Oxygen Flow Rate (L/min) 3 Oxygen Delivery Method Nasal Cannula Weight: 249 lb 1.957 oz Body Mass Index (BMI) 34.7 Intake & Output: Intake and Output for Last 24 Hours 02/17/24 02/18/24 02/19/24 23:59 23:59 23:59 Intake Total 2190 / 2190 2320 / 2570 2280 / 2280 Output Total 300 / 500 650 / 1050 950 / 950 Balance 1890 / 1690 1670 / 1520 1330 / 1330 Lab / Micro Data Attestation: I reviewed the patient's lab results. 02/19/24 04:05 02/19/24 04:05 Labs: Laboratory Results - last 24 hr 02/19/24 04:05: WBC 6.2, RBC 3.62 L, Hgb 10.3 L, Hct 32.5 L, MCV 89.8, MCH 28.5, MCHC 31.7 L, RDW Std Deviation 53.3 H, RDW Coeff of Medardo 16.1 H, Plt Count 132 L, MPV 10.9, Sodium 131 L, Potassium 3.6, Chloride 100, Carbon Dioxide 26.0, Anion Gap 5, BUN 24 H, Creatinine 0.62 L, Estim Creat Clear Calc 103.56, Est GFR (MDRD) Af Amer 164, Est GFR (MDRD) Non-Af 136, BUN/Creatinine Ratio 39.0 H, Glucose 95, Calcium 8.5 Micro: Microbiology 02/17/24 11:15 Blood Culture (Wb) - Left Wrist Blood Culture - Preliminary Staphylococcus aureus 02/17/24 10:55 Blood Culture (Wb) - Left Wrist Bacteria Detection (PCR) - Final Staphylococcus aureus 02/17/24 10:55 Blood Culture (Wb) - Left Wrist Blood Culture - Preliminary Meth. resistant Staph. aureus 02/17/24 13:50 Urine, Clean Catch Urine Culture - Final Proteus sp. Rhythm Strip Rhythm Strip: A-fib Rate: 107 Ectopy: PVC(s) Cardiology Labs/Tests 02/19/24 04:05: WBC 6.2, RBC 3.62 L, Hgb 10.3 L, Hct 32.5 L, MCV 89.8, MCH 28.5, MCHC 31.7 L, Plt Count 132 L, MPV 10.9, Sodium 131 L, Potassium 3.6, Chloride 100, Carbon Dioxide 26.0, Anion Gap 5, BUN 24 H, Creatinine 0.62 L, Est GFR (MDRD) Af Amer 164, Est GFR (MDRD) Non-Af 136, BUN/Creatinine Ratio 39.0 H, Glucose 95, Calcium 8.5 Rhythm: EKG: ECHO: Stress Test: Cardiac Cath: PCI: CT Surgery: Holter monitor: EPS: PPM: CXR: Chest CT Scan:
--- NOTE | 2024-02-19 10:03 | CASEMGMT ---
Discharge Planning: List of SNF facilities created and printed from [facility] including facilities in-network with pt's insurance and consistent with pt's preferred geographic region and inclusive of quality and resource use data. Nakul Roa RN ACM
[2024-02-19] MEDS: Acyclovir 800 MG Tablet PO (10:23)
[2024-02-19] MEDS: Nystatin Powder 15gm Bottle 1 APPLIC TOPICAL ×2 (10:24→21:10)
[2024-02-19] MEDS: Lidocaine 5% Patch 1 PATCH TOPICAL (10:24)
--- NOTE | 2024-02-19 12:02 | WOUNDNOTE ---
wound photo: left great toe
--- NOTE | 2024-02-19 12:02 | WOUNDNOTE ---
wound photo: left lateral lower leg
--- NOTE | 2024-02-19 12:03 | WOUNDNOTE ---
wound photo: right lateral lower back
[2024-02-19] MEDS: Vancomycin Trough/Random Due 1 LAB MC (12:37)
[2024-02-19 13:06] LABS: Vancomycin, Trough Level 16.4 ug/mL (5.0-15.0)
--- NOTE | 2024-02-19 13:06 | PCM.CONS.GEN ---
Assessment & Plan Assessment/Plan (1) Staphylococcus aureus bacteremia: PLAN: MRSA bacteremia per pcr. Repeat bcx and TTE pending. YADI planned. Cont iv vanc. Having single R flank lesion would be unusual for shingles, plan was to stop acyclovir today regardless. Will follow, thank you (2) Syncope and collapse: (3) Aortic stenosis: QUALIFIERS: Cardiac valve disease etiology: nonrheumatic Qualified Code(s): I35.0 - Nonrheumatic aortic (valve) stenosis HPI Consult Data Date of Consult: 02/19/24 HPI Narrative Reason for Consultation: bacteremia HPI Narrative: ANDER DIAZ, is a 73 M with h/o pulm htn, COPD, aortic stenosis, presented 02/16 with syncope, fever, not feeling well. Had recent admit for diuresis, dx with shingles on R flank, started on acyclovir. Only had one lesion present, no prior h/o shingles, mild pain at the site, no symptoms prior to that rash forming. Has chronic BLE wounds, no new pain/redness/drainage. Came to ED, found to have Bcx (+) MRSA per pcr, started on iv vanc, feeling better. Full ROS performed and neg except as noted above. [facility] Medical History (HFpEF) heart failure with preserved ejection fraction Anemia Aortic stenosis Chronic pain syndrome Compression fx, thoracic spine COPD (chronic obstructive pulmonary disease) Former smoker HLD (hyperlipidemia) Hypertension Longstanding persistent atrial fibrillation Obesity RAFAEL on CPAP Home Medications simvastatin 10 mg tablet 10 mg PO QHS cholesterol 09/06/22 [History Last Taken 02/16/24] terazosin 2 mg capsule 2 mg PO QHS prostate 09/06/22 [History Last Taken 02/16/24] warfarin 5 mg tablet 5 mg PO DAILY blood thinner 09/06/22 [History Last Taken 02/16/24] lidocaine 5 % topical patch 1 patch topical DAILY pain #15 ea 09/08/22 [Rx Last Taken Unknown] albuterol sulfate 90 mcg/actuation aerosol inhaler 1 puff inhalation Q4H PRN SOB 02/08/24 [History Last Taken 02/16/24] tiotropium 2.5 mcg-olodaterol 2.5 mcg/actuation mist for inhalation (Stiolto Respimat) 1 puff inhalation BID breathing 02/08/24 [History Last Taken Unknown] acetaminophen 500 mg tablet 1,000 mg (2 x 500 mg) PO Q8 pain 30 days #180 tabs 02/16/24 [Rx Last Taken 02/16/24] acyclovir 800 mg tablet 800 mg PO 4X/DAY 5 days #20 tabs 02/16/24 [Rx Last Taken 02/16/24] furosemide 40 mg tablet 40 mg PO DAILY 30 days #30 tabs 02/16/24 [Rx Last Taken 02/16/24] oxycodone 5 mg tablet 5 mg PO Q6H PRN PRN Pain Score 4-10 7 days #28 tabs 02/16/24 [Rx Last Taken 02/16/24] potassium chloride 20 mEq tablet,extended release(part/cryst) 20 meq PO DAILY 30 days #30 tabs 02/16/24 [Rx Last Taken 02/16/24] oxycodone 10 mg tablet 10 mg PO TID 02/17/24 [History Last Taken 02/16/24] Allergy/AdvReac Type Severity Reaction Status Date / Time pramoxine Allergy Rash Verified 02/07/24 17:06 Family History Mother Cancer Father CAD (coronary artery disease) Heart disease Hypertension Myocardial infarction Surgical History History of cardiac radiofrequency ablation (RFA) History of tonsillectomy and adenoidectomy Social History household members: family Smoking Status: Former smoker how long ago did patient quit smoking: Quit ~ 35 yrs prior. alcohol intake: never substance use type: does not use Physical Exam Const alert, oriented x3 and no apparent distress General Appearance: cooperative HEENT normocephalic and head/scalp atraumatic Eyes PERRL and EOMs intact bilaterally Neck supple and No nodes Resp normal air movement and clear to auscultation bilaterally Cardio Negative for regular rate or regular rhythm Heart Sounds: murmur GI soft to palpation, non-tender and non-distended Extremity General Extremity: edema Skin Skin Narrative: reviewed wound photos. No splinter hemorrhages on hands or feet Neuro CN's II-XII intact bilaterally Lab / Micro Data Attestation: I reviewed the patient's lab results. 02/19/24 04:05 02/19/24 04:05 Labs: Laboratory Results - last 24 hr 02/19/24 04:05: WBC 6.2, RBC 3.62 L, Hgb 10.3 L, Hct 32.5 L, MCV 89.8, MCH 28.5, MCHC 31.7 L, RDW Std Deviation 53.3 H, RDW Coeff of Medardo 16.1 H, Plt Count 132 L, MPV 10.9, Sodium 131 L, Potassium 3.6, Chloride 100, Carbon Dioxide 26.0, Anion Gap 5, BUN 24 H, Creatinine 0.62 L, Estim Creat Clear Calc 103.56, Est GFR (MDRD) Af Amer 164, Est GFR (MDRD) Non-Af 136, BUN/Creatinine Ratio 39.0 H, Glucose 95, Calcium 8.5 02/19/24 12:25: Vancomycin Trough 16.4 H Micro: Microbiology 02/17/24 11:15 Blood Culture (Wb) - Left Wrist Blood Culture - Preliminary Staphylococcus aureus 02/17/24 10:55 Blood Culture (Wb) - Left Wrist Bacteria Detection (PCR) - Final Staphylococcus aureus 02/17/24 10:55 Blood Culture (Wb) - Left Wrist Blood Culture - Preliminary Meth. resistant Staph. aureus 02/17/24 13:50 Urine, Clean Catch Urine Culture - Final Proteus sp. Rhythm Strip Rhythm Strip: A-fib Rate: 107 Ectopy: PVC(s) Imaging Radiology Impression Chest CTA 02/19/24 09:20 IMPRESSION: Increased markings at the lung bases with small bilateral pleural effusions left greater than right suggestive of atelectasis and/or early infiltrates. There is a 1.8 cm x 0.7 cm pleural-based nodule in the superior medial aspect of the left lower lobe. This may represent a focal area of infiltrate. Follow-up recommended. No evidence of pulmonary embolism. Electronically Signed: Anderson Vivas MD at 10:26 EDT ,
--- NOTE | 2024-02-19 13:16 | PHA.PHARE_ITS ---
Consult Antibiotic Management Pharmacy has been consulted to manage selected antibiotic: Vancomycin Type of Intervention Type of Consult: Follow-up Suspected Infection Suspected Infection: Bacteremia Labs Labs: Sodium 131 mmol/L (136-145) L 02/19/24 04:05 Potassium 3.6 mmol/L (3.5-5.1) 02/19/24 04:05 Chloride 100 mmol/L (98-107) 02/19/24 04:05 Carbon Dioxide 26.0 mmol/L (21.0-32.0) 02/19/24 04:05 Anion Gap 5 (5-15) 02/19/24 04:05 BUN 24 mg/dL (7-18) H 02/19/24 04:05 Creatinine 0.62 mg/dL (0.70-1.30) L 02/19/24 04:05 Est GFR (MDRD) Af Amer 164 mL/min (>60) 02/19/24 04:05 Est GFR (MDRD) Non-Af 136 mL/min (>60) 02/19/24 04:05 BUN/Creatinine Ratio 39.0 RATIO (10-20) H 02/19/24 04:05 Glucose 95 mg/dL (74-106) 02/19/24 04:05 Vancomycin Trough 16.4 ug/mL (5.0-15.0) H 02/19/24 12:25 Microbiology Microbiology: Microbiology 02/17/24 11:15 Blood Culture (Wb) - Left Wrist Blood Culture - Preliminary Staphylococcus aureus 02/17/24 10:55 Blood Culture (Wb) - Left Wrist Bacteria Detection (PCR) - Final Staphylococcus aureus 02/17/24 10:55 Blood Culture (Wb) - Left Wrist Blood Culture - Preliminary Meth. resistant Staph. aureus 02/17/24 13:50 Urine, Clean Catch Urine Culture - Final Proteus sp. 02/17/24 11:22 Mucosa - Nose Respiratory Panel (PCR) - Final Pharmacy Plan for Drug Dosing Pharmacy Plan for Drug Dosing: VANCOMYCIN LEVEL RECEIVED Current Vancomycin Dose: 1500MG Q12 Number of Doses Received: 3 Vancomycin Level: 16.4 MG/DL Hours Since Last Dose: 12 Renal Function: SCR 0.62 MG/DL, CRCL 103 ML/MIN Renal Function Trend: improved Lab/Micro: MRSA bacteremia Vancomycin Plan/Comments: 12 hour trough is therapeutic at 16.4 mg/dL (goal 15- 20). Will continue current dosing and get a trough in 2 days. Pending Level: 02/21/24 @ 1230 Pharmacy Service will continue to monitor and adjust dosing as required.
[2024-02-19] MEDS: Menthol/Lanolin/Calamine/Znox 113 GM Tube 1 APPLIC TOPICAL ×2 (13:55→21:10)
--- NOTE | 2024-02-19 15:35 | CASEMGMT ---
Advance Directive Validation: Nsg documentation notes pt reports to not have either document. Nakul Roa RN ACM
--- NOTE | 2024-02-19 21:00 | CPS ---
Patient set up with own PAP machine for the night.
[2024-02-19] MEDS: Doxazosin 1 MG Tablet 2 MG PO (21:09)
[2024-02-19] MEDS: Atorvastatin Calcium 10 MG Tablet 5 MG PO (21:10)
[2024-02-20] VITALS (13 sets, daily range): BP systolic 103–114; BP diastolic 57–76; PULSE 62–87; RESP 16–18; TEMP 36.1–36.6; O2SAT 91–99; BMI 34.7
[2024-02-20] MEDS: oxyCODONE 5 MG Tablet PO ×4 (01:30→22:13)
[2024-02-20] MEDS: Vancomycin HCl 1,500 MG in 0.9% Normal Saline (500mL Bag) 500 ML 250 MG IV ×2 (01:34→14:16)
[2024-02-20 05:58] LABS: Absolute Lymphocyte Count 0.92 X10^3/uL (0.83-4.51); Basophil# 0.08 X10^3/uL; Basophil% 1.3 % (0-1); Eosinophil# 0.16 X10^3/uL; Eosinophils% 2.6 % (0-5); Hematocrit 34.1 % (40-54); Hemoglobin 10.7 g/dL (13.0-16.5); Lymphocyte # 0.92 X10^3/ul (0.83-4.51); Mean Corp Hgb Conc 31.4 g/dL (32-36); Mean Corpuscular Hgb 28.4 pg (27.0-32.0); Mean Corpuscular Volume 90.5 fL (80-94); Monocyte# 0.93 X10^3/uL; Monocyte% 15.2 % (0-10); NRBC Flagged by Analyzer 0 % (0-5); Neutrophil # 4.02 X10^3/uL (2.7-7.7); Neutrophil % 65.6 % (47-70); Platelet Count 149 K/mm3 (150-450); RBC Distribution Width SD 52.7 fl (35.1-43.9); Red Blood Count 3.77 M/mm3 (4.6-6.2); White Blood Count 6.1 K/mm3 (4.4-11.0)
[2024-02-20 06:28] LABS: ALB/GLOB Ratio 0.5 RATIO (0.9-2.4); AST(SGOT) 32 U/L (15-37); Alanine Aminotransfer ALT/SGPT 17 U/L (16-61); Albumin, Serum 2.5 g/dL (3.2-5.0); Alkaline Phosphatase 107 U/L (45-117); Anion Gap 5 (5-15); BUN 18 mg/dL (7-18); BUN/Creat Ratio 33.1 RATIO (10-20); Calcium,Total 8.4 mg/dL (8.5-10.1); Chloride 102 mmol/L (98-107); Creatinine, Serum 0.54 mg/dL (0.70-1.30); EST Glomerular Filtration Rate 157 mL/min (>60); Est Glom Filt Rate - Afr Amer 190 mL/min (>60); Estimated Creatinine Clearance 103.56 ml/min; Globulin 4.7 g/dL (2.2-4.2); Glucose 93 mg/dL (74-106); Magnesium 1.9 mg/dL (1.6-2.6); Phosphorus 2.4 mg/dL (2.5-4.9); Potassium 3.9 mmol/L (3.5-5.1); Protein, Total 7.2 g/dL (6.4-8.2); Sodium Level 134 mmol/L (136-145)
[2024-02-20 06:35] LABS: International Normalized Ratio 2.1; Prothrombin Time (Protime)PT. 23.1 SECONDS (11.7-14.9)
--- NOTE | 2024-02-20 07:55 | PCM.PN.CARD ---
Subjective Subjective The patient is resting comfortably flat in the bed this morning on his BiPAP. The patient is scheduled for transesophageal echocardiogram today. The echo yesterday transthoracic showed an EF of 50% with a D-shaped LV. Pulmonary artery pressures 80 mmHg and mild RV dysfunction 2+ tricuspid regurgitation critical aortic stenosis with peak gradient of 86 mean gradient of 45 and trace aortic insufficiency. There were no definitive vegetations seen. It is recommended a transesophageal echo be performed today to better evaluate the valves for vegetations. Objective Data Vital Signs: Vital Signs Temp Pulse Resp BP Pulse Ox O2 Del Method O2 Flow Rate 96.9 F L 62 16 104/76 97 CPAP 3 02/20/24 04:46 02/20/24 04:46 02/20/24 04:46 02/20/24 04:46 02/20/24 04:46 02/20/24 04:46 02/20/24 04:46 Oxygen Flow Rate (L/min) 3 Oxygen Delivery Method CPAP Weight: 248 lb 10.903 oz Body Mass Index (BMI) 34.7 Intake & Output: Intake and Output for Last 24 Hours 02/18/24 02/19/24 02/20/24 23:59 23:59 23:59 Intake Total 2320 / 2570 3410 / 3410 530 / 530 Output Total 650 / 1050 2200 / 2200 450 / 450 Balance 1670 / 1520 1210 / 1210 80 / 80 Lab / Micro Data Attestation: I reviewed the patient's lab results. 02/20/24 05:10 02/20/24 05:10 Labs: Laboratory Results - last 24 hr 02/19/24 12:25: Vancomycin Trough 16.4 H 02/20/24 05:10: WBC 6.1, RBC 3.77 L, Hgb 10.7 L, Hct 34.1 L, MCV 90.5, MCH 28.4, MCHC 31.4 L, RDW Std Deviation 52.7 H, RDW Coeff of Medardo 16.0 H, Plt Count 149 L, MPV 11.0, Immature Gran % (Auto) 0.300, Neut % (Auto) 65.6, Lymph % (Auto) 15.0 L, Carver % (Auto) 15.2 H, Eos % (Auto) 2.6, Baso % (Auto) 1.3 H, Absolute Neuts (auto) 4.0, Absolute Lymphs (auto) 0.92, Nucleated RBC % 0, PT 23.1 H, INR 2.1, Sodium 134 L, Potassium 3.9, Chloride 102, Carbon Dioxide 27.0, Anion Gap 5, BUN 18, Creatinine 0.54 L, Estim Creat Clear Calc 103.56, Est GFR (MDRD) Af Amer 190, Est GFR (MDRD) Non-Af 157, BUN/Creatinine Ratio 33.1 H, Glucose 93, Calcium 8.4 L, Phosphorus 2.4 L, Magnesium 1.9, Total Bilirubin 1.50 H, AST 32, ALT 17, Alkaline Phosphatase 107, Total Protein 7.2, Albumin 2.5 L, Globulin 4.7 H, Albumin/Globulin Ratio 0.5 L Micro: Microbiology 02/17/24 10:55 Blood Culture (Wb) - Left Wrist Bacteria Detection (PCR) - Final Staphylococcus aureus 02/17/24 10:55 Blood Culture (Wb) - Left Wrist Blood Culture - Final Meth. resistant Staph. aureus 02/17/24 11:15 Blood Culture (Wb) - Left Wrist Blood Culture - Final Staphylococcus aureus Rhythm Strip Rhythm Strip: A-fib Rate: 75 Cardiology Labs/Tests 02/20/24 05:10: WBC 6.1, RBC 3.77 L, Hgb 10.7 L, Hct 34.1 L, MCV 90.5, MCH 28.4, MCHC 31.4 L, Plt Count 149 L, MPV 11.0, Immature Gran % (Auto) 0.300, Neut % (Auto) 65.6, Lymph % (Auto) 15.0 L, Carver % (Auto) 15.2 H, Eos % (Auto) 2.6, Baso % (Auto) 1.3 H, Absolute Neuts (auto) 4.0, Nucleated RBC % 0, PT 23.1 H, INR 2.1, Sodium 134 L, Potassium 3.9, Chloride 102, Carbon Dioxide 27.0, Anion Gap 5, BUN 18, Creatinine 0.54 L, Est GFR (MDRD) Af Amer 190, Est GFR (MDRD) Non-Af 157, BUN/Creatinine Ratio 33.1 H, Glucose 93, Calcium 8.4 L, Phosphorus 2.4 L, Magnesium 1.9, Total Bilirubin 1.50 H Rhythm: EKG: ECHO: Stress Test: Cardiac Cath: PCI: CT Surgery: Holter monitor: EPS: PPM: CXR: Chest CT Scan: Radiography Diagnostic Testing: Radiology Impression Chest CTA 02/19/24 09:20 IMPRESSION: Increased markings at the lung bases with small bilateral pleural effusions left greater than right suggestive of atelectasis and/or early infiltrates. There is a 1.8 cm x 0.7 cm pleural-based nodule in the superior medial aspect of the left lower lobe. This may represent a focal area of infiltrate. Follow-up recommended. No evidence of pulmonary embolism. Electronically Signed: Anderson Vivas MD at 10:26 EDT , Echocardiogram 02/19/24 09:35 Interpretation Summary Normal left ventricle. Moderate concentric left ventricular hypertrophy. Left ventricular systolic function is lower limits of normal. The left ventricular ejection fraction is 50 %. Severe diffuse aortic valve calcification. Mean aortic valve gradient 45 mmHg. Critical aortic stenosis. Pulmonary artery systolic pressure is 80 mmHg. Moderate pulmonary hypertension. No obvious valvular vegetations seen. Ordering Physician: Angela Welch Performed By: Salvatore Renteria RCS Physical Exam Const oriented x3 Constitutional Narrative: BiPAP in place HEENT normocephalic Eyes EOMs intact bilaterally Neck no JVD Chest inspection of chest normal Resp normal respiratory effort Resp Narrative: Clear to auscultation anteriorly Cardio regular rate Rhythm: abnormal rhythm irregularly irregular Heart Sounds: murmur systolic III/ harsh left sternal border and right sternal border to the neck GI soft to palpation Extremity General Extremity: edema bilateral lower extremity Details: trace Skin Skin Narrative: Left great toe wound has been wrapped. Neuro Neuro Narrative: Alert and oriented x 3 Psych mental status grossly normal Assessment & Plan Assessment/Plan (1) Staphylococcus aureus bacteremia: PLAN: YADI is being performed today to rule out SBE. Antibiotic therapy continued per the primary service. (2) Longstanding persistent atrial fibrillation: PLAN: Patient's heart rate is better controlled at 70-80 today. He remains on Coumadin therapy long-term for oral anticoagulation. (3) Aortic stenosis: QUALIFIERS: Cardiac valve disease etiology: nonrheumatic Qualified Code(s): I35.0 - Nonrheumatic aortic (valve) stenosis PLAN: The patient has critical aortic stenosis. We are evaluating him for possible surgical or TAVR intervention. We would need to confirm that his blood is sterile, his dental issues are addressed, and an invasive evaluation of his coronary arteries and valvular heart disease performed prior to referring him to the structural heart program. (4) Syncope and collapse: PLAN: This is probably multifactorial related to his recent aggressive diuresis, his critical aortic stenosis, and fluctuating blood pressures. PLAN: Plan 1. YADI today. Will dictate duration of antibiotic therapy depending on results. 2. Will need to determine next steps in his evaluation for possible intervention on his aortic valve. This would be deferred until his blood is considered sterile. 3. She is start to arrange for dental evaluation to clear him for aortic valve replacement. Charges/Coding Visit Charges Inpatient E&M: 81807 [facility] L3
--- NOTE | 2024-02-20 09:18 | CASEMGMT ---
Therapy is recommending patient go to a long-term facility for rehab. SW met with patient. Introduced self and role at [facility]. SW explained this recommendation to patient and provided him with a list that was printed from [employer]. Patient asked about [facility] T[facility]. Patient also mentioned he has a cousin that works in maintenance at [employer]. SW will make a referral to [facility]CU once patient is closer to discharge. Tsering Law [employer]M [employer]ISER ALEXA
--- NOTE | 2024-02-20 10:00 | ECHOTEE_ITS ---
Reason For Study: MURMUR Medication YADI probe 6VT-D (SN [id number]) passed with minimal difficulty. No complications were noted. Cetacaine Topical [place] given X3 orally. Versed 1 mg given slow IVP. Fentanyl 50 mcg given slow IVP. Performed a rapid injection of agitated mix of 9 cc saline and 1cc air to assess for atrial septal defect. Left Ventricle Normal left ventricle. Left ventricular systolic function is lower limits of normal. The left ventricular ejection fraction is 50 %. No regional wall motion abnormalities noted. Right Ventricle Normal RV size. Normal systolic function. Atria Intact atrial septum. Bubble contrast study negative for right to left interatrial shunt. The left atrium is mildly enlarged. No thrombus is detected in the left atrial appendage. Normal right atrium. Mitral Valve There is mild mitral annular calcification. Mild-Moderate (1-2+) eccentric mitral valve insufficiency. Tricuspid Valve Normal tricuspid valve. Moderate (2+) tricuspid valve insufficiency. Aortic Valve Trisinus/trileaflet aortic valve. Severe diffuse aortic valve calcification. Severe aortic stenosis. Pulmonic Valve Normal pulmonic valve. Vessels Normal aortic root. Moderate atherosclerosis of the descending aorta. The pulmonary artery is normal size. Pulmonary venous flow normal. Pericardium Thickened pericardium. Doppler Measurements & Calculations Ao V2 max: 350.3 cm/sec Ao max P.1 mmHg Ao V2 mean: 265.4 cm/sec Ao mean P.2 mmHg Ao V2 VTI: 80.3 cm ECHO/Echo Transesophageal (YADI) Interpretation Summary Normal left ventricle. Left ventricular systolic function is lower limits of normal. The left ventricular ejection fraction is 50 %. Severe diffuse aortic valve calcification. Severe aortic stenosis. No obvious valvular vegetation or masses noted. Ordering Physician: Shady Obrien Performed By: Mervat Alvarado RDCS and Student
[2024-02-20] MEDS: Acetaminophen 325 MG Tablet 650 MG PO ×3 (10:04→22:13)
[2024-02-20] MEDS: Nystatin Powder 15gm Bottle 1 APPLIC TOPICAL ×2 (10:08→22:10)
[2024-02-20] MEDS: Menthol/Lanolin/Calamine/Znox 113 GM Tube 1 APPLIC TOPICAL ×2 (10:09→22:11)
--- NOTE | 2024-02-20 10:27 | PCM.PN.ID ---
Physical Exam Narrative Feeling ok, no fever, no n/v/d. Const alert and no apparent distress General Appearance: cooperative Resp normal air movement and clear to auscultation bilaterally Cardio Heart Sounds: murmur GI soft to palpation, non-tender and non-distended Skin Skin Narrative: no new rash, BLE wrapped ID ID: Route of nutrition/ use of supplements: [] Nutritional Intake: [] IV Site: [] Lima Catheter: [] Assessment & Plan Assessment/Plan (1) Staphylococcus aureus bacteremia: PLAN: MRSA bacteremia per pcr. Repeat bcx pending, TTE showed no veg but does have critical aortic valve stenosis. YADI planned. Cont iv vanc. Completed acyclovir for ? shingles. Ok to be out of isolation. Will follow (2) Syncope and collapse: (3) Aortic stenosis: QUALIFIERS: Cardiac valve disease etiology: nonrheumatic Qualified Code(s): I35.0 - Nonrheumatic aortic (valve) stenosis
--- NOTE | 2024-02-20 14:21 | PCM.PN.HOSP ---
Reason for Visit Reason for Visit: Syncope Subjective Subjective Patient states physically he is feeling a little bit better but had a rough night because he was not allowed to have anything to drink due to n.p.o. status for YADI today. No other significant complaints at this time. Wound nurses there and I was able to look at the wounds with her. No significant drainage and they do not appear to be that deep. Objective Data Objective Data Vital Signs: Vital Signs Temp Pulse Resp BP Pulse Ox O2 Del Method O2 Flow Rate 97.2 F L 78 18 105/68 96 Nasal Cannula 2 02/20/24 09:55 02/20/24 09:55 02/20/24 09:55 02/20/24 09:55 02/20/24 10:11 02/20/24 10:11 02/20/24 10:11 Oxygen Flow Rate (L/min) 2 Oxygen Delivery Method Nasal Cannula Weight: 112.8 kg Body Mass Index (BMI) 34.7 Intake & Output: Intake and Output for Last 24 Hours 02/18/24 02/19/24 02/20/24 23:59 23:59 23:59 Intake Total 2320 / 2570 3410 / 3410 530 / 530 Output Total 650 / 1050 2200 / 2200 450 / 450 Balance 1670 / 1520 1210 / 1210 80 / 80 Lab / Micro Data 02/20/24 05:10 02/20/24 05:10 Labs: Laboratory Results - last 24 hr 02/20/24 05:10: WBC 6.1, RBC 3.77 L, Hgb 10.7 L, Hct 34.1 L, MCV 90.5, MCH 28.4, MCHC 31.4 L, RDW Std Deviation 52.7 H, RDW Coeff of Medardo 16.0 H, Plt Count 149 L, MPV 11.0, Immature Gran % (Auto) 0.300, Neut % (Auto) 65.6, Lymph % (Auto) 15.0 L, Caroline % (Auto) 15.2 H, Eos % (Auto) 2.6, Baso % (Auto) 1.3 H, Absolute Neuts (auto) 4.0, Absolute Lymphs (auto) 0.92, Nucleated RBC % 0, PT 23.1 H, INR 2.1, Sodium 134 L, Potassium 3.9, Chloride 102, Carbon Dioxide 27.0, Anion Gap 5, BUN 18, Creatinine 0.54 L, Estim Creat Clear Calc 103.56, Est GFR (MDRD) Af Amer 190, Est GFR (MDRD) Non-Af 157, BUN/Creatinine Ratio 33.1 H, Glucose 93, Calcium 8.4 L, Phosphorus 2.4 L, Magnesium 1.9, Total Bilirubin 1.50 H, AST 32, ALT 17, Alkaline Phosphatase 107, Total Protein 7.2, Albumin 2.5 L, Globulin 4.7 H, Albumin/Globulin Ratio 0.5 L Micro: Microbiology 02/17/24 10:55 Blood Culture (Wb) - Left Wrist Bacteria Detection (PCR) - Final Staphylococcus aureus 02/17/24 10:55 Blood Culture (Wb) - Left Wrist Blood Culture - Final Meth. resistant Staph. aureus 02/17/24 11:15 Blood Culture (Wb) - Left Wrist Blood Culture - Final Staphylococcus aureus 02/17/24 13:50 Urine, Clean Catch Urine Culture - Final Proteus sp. 02/17/24 11:22 Mucosa - Nose Respiratory Panel (PCR) - Final Radiography Diagnostic Testing: Radiology Impression Transesophageal Echocardiogram 02/20/24 10:00 Interpretation Summary Normal left ventricle. Left ventricular systolic function is lower limits of normal. The left ventricular ejection fraction is 50 %. Severe diffuse aortic valve calcification. Severe aortic stenosis. No obvious valvular vegetation or masses noted. Ordering Physician: Shady Obrien Performed By: Mervat Alvarado RDCS and Student Rhythm Strip Rhythm Strip: A-fib Rate: 75 Ectopy: PVC(s) Physical Exam Const alert, oriented x3, no apparent distress and well nourished; Negative for average body habitus or healthy appearing Constitutional Narrative: Obese, older, white male, sitting up in bed, currently appears comfortable and nontoxic, wound nurses at the bedside looking at his wounds on his legs, he does appear chronically ill and older than stated age HEENT normocephalic, head/scalp atraumatic, hearing grossly normal bilaterally and moist oral mucous membranes HEENT Narrative: Dentition is poor with multiple missing teeth and receding gums Resp normal respiratory effort, normal air movement, no retractions, no use of accessory muscles and No clear to auscultation bilaterally Resp Narrative: Crackles at bases bilaterally with normal aeration at the apices, no signs of respiratory distress Auscultation: crackles; Negative for rhonchi or wheezes Cardio regular rate, S1 normal heart sound, no rub, no gallops and no clicks; Negative for regular rhythm, S2 normal heart sound or no murmurs Cardio Narrative: Irregular irregular rhythm with good rate control, 3 out of 6 to 4 out of 6 systolic murmur with quiet S2, radiates to bilateral carotids GI normal to inspection, nondistended, normoactive bowel sounds, soft to palpation and non-tender Extremity full ROM Extremity Narrative: Significant wrinkling of the lower extremities underneath the Carlos bandages when they removed, linear wound on the left lateral aspect of the distal lower leg that appears to be fairly superficial with no significant drainage, also wound noted on the plantar surface of the left great toe that does not appear to be significantly deep either, patient with bilateral lower extremity edema that appears to be improving from last hospitalization, no cyanosis or clubbing noted Neuro oriented x3, moves all extremities and no focal motor deficits Neuro Narrative: Significant generalized weakness noted but no focal deficits Speech: speech normal Psych mental status grossly normal Psych Narrative: affect is slightly flat however eye contact is good and patient is able to interact appropriately and asked good questions Assessment & Plan Assessment/Plan (1) Staphylococcus aureus bacteremia: (2) Syncope and collapse: (3) Aortic stenosis: QUALIFIERS: Cardiac valve disease etiology: nonrheumatic Qualified Code(s): I35.0 - Nonrheumatic aortic (valve) stenosis PLAN: Plan Staph aureus bacteremia -Patient did not rate criteria for sepsis per Sep 1 or Sep 3 guidelines -Likely related to skin -Clearance blood cultures from 02/19/2024 pending -TTE done yesterday shows an EF of 50% with moderate LVH, severe diffuse aortic valve calcification with a mean aortic valve gradient of 45 mmHg consistent with critical aortic stenosis, pulmonary artery pressures of 80 mmHg and no obvious vegetations -YADI done today did not show any signs of IE -Continue vancomycin -ID following-appreciate input Syncope -Suspect related to overdiuresis with severe aortic stenosis -Patient was orthostatic on admission -Continue to hold diuresis for now until okay to reinitiate by cardiology -Both TTE and YADI show critical to severe aortic stenosis -Cardiology following Critical to severe aortic stenosis -Cardiology is following and patient will need evaluated for aortic valve once his infection is cleared, his teeth can be pulled and his wounds are stable -Likely contributed to syncopal event -Now in the setting of Staph aureus bacteremia -No signs of vegetation on TTE or YADI Hypoxia -This is new -Currently on 2 L -Wean as able -Patient does have moderate to severe pulmonary hypertension with right ventricular systolic pressures of 80 mmHg on his echocardiogram -May be related to bacteremia -Etiology is not clear at this time -CTA of the chest did not show any PE but did show some small bilateral pleural effusions with a 1.8 x 0.7 cm pleural-based nodule that was concerning for a focal area of infiltrate -Chest x-ray on presentation was unremarkable -Restart home Lasix Persistent atrial fibrillation/RVR on presentation -Rate is now controlled -INR is 2.1 -Continue warfarin -Continue home Lopressor Thrombocytopenia -Mild -Suspect related to acute infection -Seems to be improving -Continue to monitor Hyponatremia -Mild at 134 -Restart home Lasix -Continue to monitor Hypophosphatemia -Very minimal -Will replete with oral phosphorus -Recheck in a.m. 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 INR CODE STATUS -Full code is verified on admission Charges/Coding Visit Charges Inpatient E&M: 53479 Subs Hosp L2
[2024-02-20] MEDS: Doxazosin 1 MG Tablet 2 MG PO (22:17)
[2024-02-20] MEDS: Na Biphos/Potassium Phosphate PACKET 1 PACKET PO (22:18)
[2024-02-20] MEDS: Atorvastatin Calcium 10 MG Tablet 5 MG PO (22:18)
[2024-02-20] MEDS: 0.9% Saline Lock 10 ML Syringe IV (22:22)
--- NOTE | 2024-02-20 23:14 | CPS ---
Pt wearing his own cpap with 2L O2 bled in line.
[2024-02-21] VITALS (9 sets, daily range): BP systolic 94–119; BP diastolic 57–80; PULSE 65–80; RESP 16–18; TEMP 36.4–36.6; O2SAT 97–100; BMI 34.6
[2024-02-21] MEDS: Vancomycin HCl 1,500 MG in 0.9% Normal Saline (500mL Bag) 500 ML 250 MG IV ×2 (01:13→14:40)
[2024-02-21] MEDS: Albuterol 2.5 MG/3 ML VIAL.NEB. INHALATION (04:41)
[2024-02-21] MEDS: Budesonide Respules 0.5 MG/2 ML AMPUL.NEB. INHALATION (04:41)
[2024-02-21 06:39] LABS: Absolute Lymphocyte Count 0.88 X10^3/uL (0.83-4.51); Absolute Neutrophil Count 3.5 X10^3/uL (2.0-7.7); Basophil# 0.09 X10^3/uL; Basophil% 1.6 % (0-1); Eosinophil# 0.27 X10^3/uL; Eosinophils% 4.8 % (0-5); Hematocrit 34.8 % (40-54); Hemoglobin 10.6 g/dL (13.0-16.5); Lymphocyte # 0.88 X10^3/ul (0.83-4.51); Lymphocyte % 15.8 % (19-41); Mean Corp Hgb Conc 30.5 g/dL (32-36); Mean Corpuscular Hgb 27.7 pg (27.0-32.0); Mean Corpuscular Volume 91.1 fL (80-94); Mean Platelet Vol. 10.9 fl (6.2-12.0); Monocyte# 0.78 X10^3/uL; NRBC Flagged by Analyzer 0 % (0-5); Neutrophil # 3.52 X10^3/uL (2.7-7.7); Neutrophil % 63.3 % (47-70); Platelet Count 178 K/mm3 (150-450); RBC Distribution Width SD 53.2 fl (35.1-43.9); Red Blood Count 3.82 M/mm3 (4.6-6.2); White Blood Count 5.6 K/mm3 (4.4-11.0)
[2024-02-21 06:54] LABS: International Normalized Ratio 2.4; Prothrombin Time (Protime)PT. 25.8 SECONDS (11.7-14.9)
[2024-02-21 07:08] LABS: Anion Gap 4 (5-15); BUN 14 mg/dL (7-18); BUN/Creat Ratio 28.6 RATIO (10-20); Calcium,Total 8.8 mg/dL (8.5-10.1); Chloride 105 mmol/L (98-107); Creatinine, Serum 0.49 mg/dL (0.70-1.30); EST Glomerular Filtration Rate 177 mL/min (>60); Est Glom Filt Rate - Afr Amer 214 mL/min (>60); Estimated Creatinine Clearance 103.42 ml/min; Glucose 103 mg/dL (74-106); Phosphorus 2.7 mg/dL (2.5-4.9); Potassium 3.9 mmol/L (3.5-5.1); Sodium Level 137 mmol/L (136-145)
--- NOTE | 2024-02-21 08:09 | PCM.PN.CARD ---
Subjective Subjective Patient was sleeping in bed with his BiPAP in place. He awoke and was denying any shortness of breath denies any chest pain or tightness. He was sleeping flat. YADI did not show any vegetations. Infectious disease is following the patient and managing the antibiotics. Objective Data Vital Signs: Vital Signs Temp Pulse Resp BP Pulse Ox O2 Del Method O2 Flow Rate 97.5 F L 67 18 119/80 97 CPAP 2 02/21/24 03:56 02/21/24 04:42 02/21/24 04:42 02/21/24 03:56 02/21/24 03:56 02/21/24 04:46 02/21/24 04:46 Oxygen Flow Rate (L/min) 2 Oxygen Delivery Method CPAP Weight: 248 lb 7.375 oz Body Mass Index (BMI) 34.6 Intake & Output: Intake and Output for Last 24 Hours 02/19/24 02/20/24 02/21/24 23:59 23:59 23:59 Intake Total 3410 / 3410 2080 / 2080 1030 / 1030 Output Total 2200 / 2200 2800 / 2800 1000 / 1000 Balance 1210 / 1210 -720 / -720 30 / 30 Lab / Micro Data 02/21/24 05:40 02/21/24 05:40 Labs: Laboratory Results - last 24 hr 02/21/24 05:40: WBC 5.6, RBC 3.82 L, Hgb 10.6 L, Hct 34.8 L, MCV 91.1, MCH 27.7, MCHC 30.5 L, RDW Std Deviation 53.2 H, RDW Coeff of Medardo 16.0 H, Plt Count 178, MPV 10.9, Immature Gran % (Auto) 0.500, Neut % (Auto) 63.3, Lymph % (Auto) 15.8 L, [place] % (Auto) 14.0 H, Eos % (Auto) 4.8, Baso % (Auto) 1.6 H, Absolute Neuts (auto) 3.5, Absolute Lymphs (auto) 0.88, Nucleated RBC % 0, PT 25.8 H, INR 2.4, Sodium 137, Potassium 3.9, Chloride 105, Carbon Dioxide 28.0, Anion Gap 4 L, BUN 14, Creatinine 0.49 L, Estim Creat Clear Calc 103.42, Est GFR (MDRD) Af Amer 214, Est GFR (MDRD) Non-Af 177, BUN/Creatinine Ratio 28.6 H, Glucose 103, Calcium 8.8, Phosphorus 2.7 Micro: Microbiology 02/17/24 10:55 Blood Culture (Wb) - Left Wrist Bacteria Detection (PCR) - Final Staphylococcus aureus 02/17/24 10:55 Blood Culture (Wb) - Left Wrist Blood Culture - Final Meth. resistant Staph. aureus 02/17/24 11:15 Blood Culture (Wb) - Left Wrist Blood Culture - Final Staphylococcus aureus Rhythm Strip Rhythm Strip: A-fib Rate: 70 Cardiology Labs/Tests 02/21/24 05:40: WBC 5.6, RBC 3.82 L, Hgb 10.6 L, Hct 34.8 L, MCV 91.1, MCH 27.7, MCHC 30.5 L, Plt Count 178, MPV 10.9, Immature Gran % (Auto) 0.500, Neut % (Auto) 63.3, Lymph % (Auto) 15.8 L, [place] % (Auto) 14.0 H, Eos % (Auto) 4.8, Baso % (Auto) 1.6 H, Absolute Neuts (auto) 3.5, Nucleated RBC % 0, PT 25.8 H, INR 2.4, Sodium 137, Potassium 3.9, Chloride 105, Carbon Dioxide 28.0, Anion Gap 4 L, BUN 14, Creatinine 0.49 L, Est GFR (MDRD) Af Amer 214, Est GFR (MDRD) Non-Af 177, BUN/Creatinine Ratio 28.6 H, Glucose 103, Calcium 8.8, Phosphorus 2.7 Rhythm: EKG: ECHO: Stress Test: Cardiac Cath: PCI: CT Surgery: Holter monitor: EPS: PPM: CXR: Chest CT Scan: Radiography Diagnostic Testing: Radiology Impression Transesophageal Echocardiogram 02/20/24 10:00 Interpretation Summary Normal left ventricle. Left ventricular systolic function is lower limits of normal. The left ventricular ejection fraction is 50 %. Severe diffuse aortic valve calcification. Severe aortic stenosis. No obvious valvular vegetation or masses noted. Ordering Physician: Shady Obrien Performed By: Mervat Alvarado RDCS and Student Physical Exam Const oriented x3 HEENT normocephalic Eyes EOMs intact bilaterally Neck no JVD Chest inspection of chest normal Resp normal respiratory effort Auscultation: crackles bilateral lower Cardio regular rate, no rub and no gallops Rhythm: abnormal rhythm irregularly irregular Heart Sounds: murmur systolic III/ harsh left sternal border and right sternal border to the neck and other (Widely throughout the precordium) GI soft to palpation Extremity General Extremity: edema bilateral lower extremity Details: trace Skin Skin Narrative: Left great toe remains wrapped. Psych mental status grossly normal Assessment & Plan Assessment/Plan (1) Staphylococcus aureus bacteremia: PLAN: Infectious diseases following the patient and monitoring the antibiotics. We will need to document sterilization of his blood prior to proceeding with invasive evaluation. Will defer timing of repeat cultures to the infectious disease. (2) Aortic stenosis: QUALIFIERS: Cardiac valve disease etiology: nonrheumatic Qualified Code(s): I35.0 - Nonrheumatic aortic (valve) stenosis PLAN: The patient has critical aortic stenosis and should be amenable to TAVR. This will require further invasive and noninvasive workup including right and left heart catheterization as well as CT angio of the great vessels and pelvic vessels. Will defer further invasive evaluation until the septicemia is cleared. (3) Longstanding persistent atrial fibrillation: PLAN: Continue with rate control and oral anticoagulation with Coumadin long-term. PLAN: Plan 1. Will continue to monitor peripherally until the patient's blood is considered sterile. 2. Will need to proceed with right and left heart catheterization as part of a TAVR workup once the blood is sterile. 3. Following the catheterization determination will be made of the next best option for approaching the critical aortic stenosis. Charges/Coding Visit Charges Inpatient E&M: 72178 Subs Hosp L3
[2024-02-21] MEDS: Furosemide 40 MG Tablet PO (09:25)
[2024-02-21] MEDS: oxyCODONE 5 MG Tablet PO ×4 (09:25→22:53)
[2024-02-21] MEDS: Acetaminophen 325 MG Tablet 650 MG PO ×3 (09:25→18:15)
[2024-02-21] MEDS: Na Biphos/Potassium Phosphate PACKET 1 PACKET PO ×2 (09:25→19:43)
[2024-02-21] MEDS: Nystatin Powder 15gm Bottle 1 APPLIC TOPICAL ×2 (09:26→19:43)
[2024-02-21] MEDS: Menthol/Lanolin/Calamine/Znox 113 GM Tube 1 APPLIC TOPICAL ×2 (09:26→19:44)
[2024-02-21] MEDS: Lidocaine 5% Patch 1 PATCH TOPICAL (09:27)
--- NOTE | 2024-02-21 11:00 | CASEMGMT ---
SW made a referral to TCU. TCU is able to take patient. Plan: [facility] pending insurance approval Tsering LIU
[2024-02-21 13:16] LABS: Vancomycin, Trough Level 18.3 ug/mL (5.0-15.0)
--- NOTE | 2024-02-21 13:54 | PCM.PN.ID ---
Physical Exam Narrative Feeling better, no fever Const alert and no apparent distress General Appearance: cooperative Resp normal air movement and clear to auscultation bilaterally Cardio Heart Sounds: murmur GI soft to palpation, non-tender and non-distended Skin no rashes or lesions noted ID ID: Route of nutrition/ use of supplements: [] Nutritional Intake: [] IV Site: [] Lima Catheter: [] Assessment & Plan Assessment/Plan (1) Staphylococcus aureus bacteremia: PLAN: MRSA bacteremia. Repeat bcx ngtd, TTE showed no veg but does have critical aortic valve stenosis. YADI showed on veg. Cont iv vanc. Completed acyclovir for ? shingles. Ok to be out of isolation. Will follow (2) Syncope and collapse: (3) Aortic stenosis: QUALIFIERS: Cardiac valve disease etiology: nonrheumatic Qualified Code(s): I35.0 - Nonrheumatic aortic (valve) stenosis
--- NOTE | 2024-02-21 13:58 | PCM.RX.CS ---
Consult Antibiotic Management Pharmacy has been consulted to manage selected antibiotic: Vancomycin Type of Intervention Type of Consult: Follow-up Suspected Infection Suspected Infection: Bacteremia Prior Doses of Antibiotics Prior Doses of Antibiotics Received/Current Regimen: current dose is vanc 1500mg IV q12h Labs Labs: Sodium 137 mmol/L (136-145) 02/21/24 05:40 Potassium 3.9 mmol/L (3.5-5.1) 02/21/24 05:40 Chloride 105 mmol/L (98-107) 02/21/24 05:40 Carbon Dioxide 28.0 mmol/L (21.0-32.0) 02/21/24 05:40 Anion Gap 4 (5-15) L 02/21/24 05:40 BUN 14 mg/dL (7-18) 02/21/24 05:40 Creatinine 0.49 mg/dL (0.70-1.30) L 02/21/24 05:40 Est GFR (MDRD) Af Amer 214 mL/min (>60) 02/21/24 05:40 Est GFR (MDRD) Non-Af 177 mL/min (>60) 02/21/24 05:40 BUN/Creatinine Ratio 28.6 RATIO (10-20) H 02/21/24 05:40 Glucose 103 mg/dL (74-106) 02/21/24 05:40 Vancomycin Trough 18.3 ug/mL (5.0-15.0) H 02/21/24 12:05 Microbiology Microbiology: Microbiology 02/17/24 10:55 Blood Culture (Wb) - Left Wrist Bacteria Detection (PCR) - Final Staphylococcus aureus 02/17/24 10:55 Blood Culture (Wb) - Left Wrist Blood Culture - Final Meth. resistant Staph. aureus 02/17/24 11:15 Blood Culture (Wb) - Left Wrist Blood Culture - Final Staphylococcus aureus 02/17/24 13:50 Urine, Clean Catch Urine Culture - Final Proteus sp. 02/17/24 11:22 Mucosa - Nose Respiratory Panel (PCR) - Final Dosing Weight Weight used for dosin.7 kg Estimated Creatinine Clearance Estimated Creatinine Clearance: 103ml/min Goal Trough Goal Trough: 15-20 mcg/mL Pharmacy Plan for Drug Dosing Pharmacy Plan for Drug Dosing: The vanc trough drawn at 12:05 today (approx 11 hours after the previous dose) was 18.3. This is in goal range so will keep same dose. Repeat another trough in 2 days to make sure it does not go above goal since it did go up from 16.4 two days ago to 18.3 today. Pharmacy Service will continue to monitor and adjust dosing as required. Follow-Up Labs Follow-Up Labs: Trough: Vancomycin Date/Time Labs Ordered Labs to be done on [date and time ordered]: 02/23/24 12:30
--- NOTE | 2024-02-21 17:13 | PCM.PN.HOSP ---
Reason for Visit Reason for Visit: Syncope Subjective Subjective No issues overnight. Patient has no complaints at this time. We discussed the overall plan of discharge to TCU once we have a medical plan that stabilized with regards to his antibiotics and duration for ongoing rehab and then repeat blood cultures after he is completed antibiotics with outpatient follow-up with cardiology to follow for recommendations with regard to his valve. Patient voiced understanding and no questions at this time. Objective Data Objective Data Vital Signs: Vital Signs Temp Pulse Resp BP Pulse Ox O2 Del Method O2 Flow Rate 97.7 F L 69 18 94/57 L 98 Nasal Cannula 2 02/21/24 16:08 02/21/24 16:08 02/21/24 16:08 02/21/24 16:08 02/21/24 16:02/21/24 16:02/21/24 16:08 Oxygen Flow Rate (L/min) 2 Oxygen Delivery Method Nasal Cannula Weight: 112.7 kg Body Mass Index (BMI) 34.6 Intake & Output: Intake and Output for Last 24 Hours 02/19/24 02/20/24 02/21/24 23:59 23:59 23:59 Intake Total 3410 / 3410 2080 / 2080 1270 / 1270 Output Total 2200 / 2200 2800 / 2800 1600 / 1600 Balance 1210 / 1210 -720 / -720 -330 / -330 Lab / Micro Data 02/21/24 05:40 02/21/24 05:40 Labs: Laboratory Results - last 24 hr 02/21/24 05:40: WBC 5.6, RBC 3.82 L, Hgb 10.6 L, Hct 34.8 L, MCV 91.1, MCH 27.7, MCHC 30.5 L, RDW Std Deviation 53.2 H, RDW Coeff of Medardo 16.0 H, Plt Count 178, MPV 10.9, Immature Gran % (Auto) 0.500, Neut % (Auto) 63.3, Lymph % (Auto) 15.8 L, [place] % (Auto) 14.0 H, Eos % (Auto) 4.8, Baso % (Auto) 1.6 H, Absolute Neuts (auto) 3.5, Absolute Lymphs (auto) 0.88, Nucleated RBC % 0, PT 25.8 H, INR 2.4, Sodium 137, Potassium 3.9, Chloride 105, Carbon Dioxide 28.0, Anion Gap 4 L, BUN 14, Creatinine 0.49 L, Estim Creat Clear Calc 103.42, Est GFR (MDRD) Af Amer 214, Est GFR (MDRD) Non-Af 177, BUN/Creatinine Ratio 28.6 H, Glucose 103, Calcium 8.8, Phosphorus 2.7 02/21/24 12:05: Vancomycin Trough 18.3 H Micro: Microbiology 02/19/24 10:15 Blood Culture (Wb) - Left Wrist Blood Culture - Preliminary No growth in 48 hours. 02/19/24 09:18 Blood Culture (Wb) - Left Hand Blood Culture - Preliminary No growth in 48 hours. 02/17/24 10:55 Blood Culture (Wb) - Left Wrist Bacteria Detection (PCR) - Final Staphylococcus aureus 02/17/24 10:55 Blood Culture (Wb) - Left Wrist Blood Culture - Final Meth. resistant Staph. aureus 02/17/24 11:15 Blood Culture (Wb) - Left Wrist Blood Culture - Final Staphylococcus aureus 02/17/24 13:50 Urine, Clean Catch Urine Culture - Final Proteus sp. 02/17/24 11:22 Mucosa - Nose Respiratory Panel (PCR) - Final Rhythm Strip Rhythm Strip: A-fib Rate: 70 Ectopy: PVC(s) Physical Exam Const alert, oriented x3, no apparent distress and well nourished; Negative for average body habitus or healthy appearing Constitutional Narrative: Obese, older, white male, sitting up in bed, currently appears comfortable and nontoxic, appears chronically ill and older than stated age HEENT normocephalic, head/scalp atraumatic, hearing grossly normal bilaterally and moist oral mucous membranes HEENT Narrative: Mallampati 2-3, no thrush, dentition is poor Resp normal respiratory effort, normal air movement, no retractions, no use of accessory muscles and clear to auscultation bilaterally Resp Narrative: Diminished diffusely but clear Auscultation: Negative for crackles, rhonchi or wheezes Cardio regular rate, S1 normal heart sound, no rub, no gallops, no clicks and peripheral pulses 2+ throughout; Negative for regular rhythm, S2 normal heart sound or no murmurs Cardio Narrative: Irregular irregular rhythm with good rate control, 3 out of 6 to 4 out of 6 systolic murmur with quiet S2 GI normal to inspection, nondistended, normoactive bowel sounds, soft to palpation and non-tender Extremity Extremity Narrative: No clubbing or cyanosis, edema is stable Neuro oriented x3, moves all extremities and no focal motor deficits Neuro Narrative: Significant generalized weakness noted but no focal deficits Speech: speech normal Psych mental status grossly normal and affect normal Psych Narrative: patient is able to interact appropriately and asked good questions Assessment & Plan Assessment/Plan (1) Staphylococcus aureus bacteremia: (2) Syncope and collapse: (3) Aortic stenosis: QUALIFIERS: Cardiac valve disease etiology: nonrheumatic Qualified Code(s): I35.0 - Nonrheumatic aortic (valve) stenosis PLAN: Plan Staph aureus bacteremia -Likely related to skin -Clearance blood cultures from 02/19/2024 are negative at 48 hours -TTE done 02/19/2024 shows an EF of 50% with moderate LVH, severe diffuse aortic valve calcification with a mean aortic valve gradient of 45 mmHg consistent with critical aortic stenosis, pulmonary artery pressures of 80 mmHg and no obvious vegetations -YADI done 02/20/2024 did not show any signs of IE -Continue vancomycin--> need to clarify duration and antibiotic at discharge -ID following-appreciate input Syncope -Suspect related to overdiuresis with severe aortic stenosis -Patient was orthostatic on admission -Restart home Lasix -Both TTE and YADI show critical to severe aortic stenosis -Cardiology following Critical to severe aortic stenosis -Patient will need repeat blood cultures after antibiotics are completed with outpatient follow-up to see cardiology following to arrange further evaluation for his aortic stenosis and possible TAVR -Likely contributed to syncopal event -Now in the setting of Staph aureus bacteremia -No signs of vegetation on TTE or YADI -Cardiology is following-discussed case with Dr. Obrien today Hypoxia -Currently on 2 L -Wean as able -Patient does have moderate to severe pulmonary hypertension with right ventricular systolic pressures of 80 mmHg on his echocardiogram -May be related to bacteremia -Suspect this is related to his severe aortic stenosis and pulmonary hypertension -CTA of the chest did not show any PE but did show some small bilateral pleural effusions with a 1.8 x 0.7 cm pleural-based nodule that was concerning for a focal area of infiltrate -Chest x-ray on presentation was unremarkable -Continue home Lasix Persistent atrial fibrillation/RVR on presentation -Rate is now controlled -INR is 2.4 -Continue warfarin -Continue home Lopressor Thrombocytopenia -Resolved Hyponatremia -Mild at 137 -Continue home Lasix -Continue to monitor Hypophosphatemia -resolved Debility -PT/OT following-appreciate input HFpEF/moderate pulmonary hypertension/HTN/HPL -Continue home metoprolol -continue home Lasix -Continue home statin Venous stasis ulcers -Chronic -Wound care following Recent herpes zoster infection -Lesions noted on right lower back-resolving -Patient has completed acyclovir -Okay to be out of precautions 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
[2024-02-21] MEDS: Atorvastatin Calcium 10 MG Tablet 5 MG PO (19:42)
[2024-02-21] MEDS: Doxazosin 1 MG Tablet 2 MG PO (19:42)
[2024-02-22] VITALS (9 sets, daily range): BP systolic 88–122; BP diastolic 58–83; PULSE 65–77; RESP 16–18; TEMP 35.7–36.6; O2SAT 93–98; BMI 34.4
[2024-02-22] MEDS: 0.9% Saline Lock 10 ML Syringe IV (00:03)
[2024-02-22] MEDS: Vancomycin HCl 1,500 MG in 0.9% Normal Saline (500mL Bag) 500 ML 250 MG IV ×2 (00:03→13:41)
[2024-02-22] MEDS: oxyCODONE 5 MG Tablet PO ×4 (03:13→19:54)
[2024-02-22] MEDS: Budesonide Respules 0.5 MG/2 ML AMPUL.NEB. INHALATION (07:16)
[2024-02-22] MEDS: Acetaminophen 325 MG Tablet 650 MG PO ×2 (07:25→16:12)
--- NOTE | 2024-02-22 07:39 | PN.CARD_ITS ---
Subjective Subjective Patient is resting comfortably in bed at 30 degrees. Objective Data Vital Signs: Vital Signs Temp Pulse Resp BP Pulse Ox O2 Del Method O2 Flow Rate 98 F 74 16 107/70 94 CPAP 3 02/22/24 03:20 02/22/24 03:20 02/22/24 03:20 02/22/24 03:20 02/22/24 03:20 02/22/24 03:24 02/22/24 03:24 Oxygen Flow Rate (L/min) 3 Oxygen Delivery Method CPAP Weight: 246 lb 14.684 oz Body Mass Index (BMI) 34.4 Intake & Output: Intake and Output for Last 24 Hours 02/20/24 02/21/24 02/22/24 23:59 23:59 23:59 Intake Total 2080 / 2080 2260 / 2260 770 / 770 Output Total 2800 / 2800 2450 / 2450 350 / 350 Balance -720 / -720 -190 / -190 420 / 420 Lab / Micro Data 02/21/24 05:40 02/21/24 05:40 Labs: Laboratory Results - last 24 hr 02/21/24 12:05: Vancomycin Trough 18.3 H Micro: Microbiology 02/20/24 11:07 Blood Culture (Wb) - Left Hand Blood Culture - Preliminary No growth in 48 hours. 02/19/24 10:15 Blood Culture (Wb) - Left Wrist Blood Culture - Preliminary No growth in 48 hours. 02/19/24 09:18 Blood Culture (Wb) - Left Hand Blood Culture - Preliminary No growth in 48 hours. Rhythm Strip Rhythm Strip: A-fib Rate: 75 Cardiology Labs/Tests Rhythm: EKG: ECHO: Stress Test: Cardiac Cath: PCI: CT Surgery: Holter monitor: EPS: PPM: CXR: Chest CT Scan: Physical Exam Const Constitutional Narrative: The patient seemed lethargic with his answers to questions. HEENT normocephalic Chest inspection of chest normal Resp Resp Narrative: Respiratory rate seems to be slightly increased today. His lungs are clear anteriorly. Extremity Extremity Narrative: Legs remain wrapped. Left great toe with has a bandage in place. Assessment & Plan Assessment/Plan (1) Staphylococcus aureus bacteremia: PLAN: We will need to see the patient's blood sterilized 2 weeks after antibiotics are completed. (2) Aortic stenosis: QUALIFIERS: Cardiac valve disease etiology: nonrheumatic Q ualified Code(s): I35.0 - Nonrheumatic aortic (valve) stenosis PLAN: The patient is critical aortic stenosis appears to be stable at this point in time. I feel he can proceed to rehabilitation with continued antibiotic therapy per the ID team. Once the patient's blood is deemed to be sterile with blood cultures negative off antibiotics we will proceed with right and left heart catheterization. This will be done in the ambulatory setting. The patient should follow-up in the [facility] office in about 3 to 4 weeks or 2 weeks after he completes antibiotic therapy. He should have blood cultures done at 2 weeks after his antibiotic therapy is completed. PLAN: Plan 1. Duration of antibiotic therapy per per the ID team 2. Request repeat blood cultures 2 weeks after antibiotics are completed. 3. Should be arranged to follow-up in the [facility] office after the antibiotics are completed and the blood cultures have been obtained. 4. The patient from a cardiovascular standpoint can proceed with rehabilitation. Charges/Coding Visit Charges Inpatient E&M: 19221 [facility] [[email or web address]] Hosp L1
[2024-02-22 07:55] LABS: International Normalized Ratio 2.9; Prothrombin Time (Protime)PT. 30.5 SECONDS (11.7-14.9)
[2024-02-22] MEDS: Lidocaine 5% Patch 1 PATCH TOPICAL (09:44)
[2024-02-22] MEDS: Nystatin Powder 15gm Bottle 1 APPLIC TOPICAL ×2 (09:48→19:46)
[2024-02-22] MEDS: Na Biphos/Potassium Phosphate PACKET 1 PACKET PO ×2 (09:48→19:48)
[2024-02-22] MEDS: Menthol/Lanolin/Calamine/Znox 113 GM Tube 1 APPLIC TOPICAL ×2 (09:48→19:46)
--- NOTE | 2024-02-22 10:15 | PCM.PN.ID ---
Physical Exam Narrative Feeling better, no fever, no n/v/d. Const alert and no apparent distress Resp normal air movement and clear to auscultation bilaterally Cardio Heart Sounds: murmur GI soft to palpation, non-tender and non-distended Skin no rashes or lesions noted ID ID: Route of nutrition/ use of supplements: [] Nutritional Intake: [] IV Site: [] Lima Catheter: [] Assessment & Plan Assessment/Plan (1) Staphylococcus aureus bacteremia: PLAN: MRSA bacteremia. Repeat bcx ngtd at 72h, TTE showed no veg but does have critical aortic valve stenosis. YADI showed on veg. Cont iv vanc while inpatient. Completed acyclovir for ? shingles. Given rapid bcx clearance since 02/18 and negative YADI, ok for discharge on po linezolid for 2 weeks total abx. Will follow, wrote rx. (2) Syncope and collapse: (3) Aortic stenosis: QUALIFIERS: Cardiac valve disease etiology: nonrheumatic Qualified Code(s): I35.0 - Nonrheumatic aortic (valve) stenosis
--- NOTE | 2024-02-22 11:17 | CASEMGMT ---
SHEILA let patient know that [facility] has accepted him. Patient thanked SHEILA. Plan: d/c to [facility] pending insurance approval. Tsering LIU
--- NOTE | 2024-02-22 12:07 | PCM.PN.HOSP ---
Reason for Visit Reason for Visit: Syncope Subjective Subjective No issues overnight. Patient has no complaints at this time. Plan from ID is linezolid for 12 days at the time of discharge. Plan is for TCU at discharge once pre-CERT is obtained. Objective Data Objective Data Vital Signs: Vital Signs Temp Pulse Resp BP Pulse Ox O2 Del Method O2 Flow Rate 97.2 F L 72 18 93/63 96 Nasal Cannula 2 02/22/24 11:32 02/22/24 11:32 02/22/24 11:32 02/22/24 11:32 02/22/24 11:32 02/22/24 11:32 02/22/24 11:32 Oxygen Flow Rate (L/min) 2 Oxygen Delivery Method Nasal Cannula Weight: 112 kg Body Mass Index (BMI) 34.4 Intake & Output: Intake and Output for Last 24 Hours 02/20/24 02/21/24 02/22/24 23:59 23:59 23:59 Intake Total 2080 / 2080 2260 / 2260 1490 / 1490 Output Total 2800 / 2800 2450 / 2450 1150 / 1150 Balance -720 / -720 -190 / -190 340 / 340 Lab / Micro Data 02/21/24 05:40 02/21/24 05:40 Labs: Laboratory Results - last 24 hr 02/21/24 12:05: Vancomycin Trough 18.3 H 02/22/24 07:00: PT 30.5 H, INR 2.9 Micro: Microbiology 02/20/24 11:07 Blood Culture (Wb) - Left Hand Blood Culture - Preliminary No growth in 48 hours. 02/19/24 10:15 Blood Culture (Wb) - Left Wrist Blood Culture - Preliminary No growth in 48 hours. 02/19/24 09:18 Blood Culture (Wb) - Left Hand Blood Culture - Preliminary No growth in 48 hours. 02/17/24 10:55 Blood Culture (Wb) - Left Wrist Bacteria Detection (PCR) - Final Staphylococcus aureus 02/17/24 10:55 Blood Culture (Wb) - Left Wrist Blood Culture - Final Meth. resistant Staph. aureus 02/17/24 11:15 Blood Culture (Wb) - Left Wrist Blood Culture - Final Staphylococcus aureus 02/17/24 13:50 Urine, Clean Catch Urine Culture - Final Proteus sp. 02/17/24 11:22 Mucosa - Nose Respiratory Panel (PCR) - Final Rhythm Strip Rhythm Strip: A-fib Rate: 75 Ectopy: PVC(s) Physical Exam Const alert, oriented x3, no apparent distress and well nourished; Negative for average body habitus or healthy appearing Constitutional Narrative: Obese, older, white male, sitting up in a chair at the bedside, napping, BiPAP in place patient awakens easily, currently appears comfortable and nontoxic, appears chronically ill and older than stated age General Appearance: cooperative and comfortable HEENT normocephalic, head/scalp atraumatic and hearing grossly normal bilaterally Resp normal respiratory effort, normal air movement, no retractions, no use of accessory muscles and clear to auscultation bilaterally Resp Narrative: Diminished diffusely but clear Auscultation: Negative for crackles, rhonchi or wheezes Cardio regular rate, S1 normal heart sound, no rub, no gallops, no clicks and peripheral pulses 2+ throughout; Negative for regular rhythm, S2 normal heart sound or no murmurs Cardio Narrative: Irregular irregular rhythm with good rate control, 3 out of 6 to 4 out of 6 systolic murmur with quiet S2 GI normal to inspection, nondistended, normoactive bowel sounds, soft to palpation and non-tender Extremity Extremity Narrative: No clubbing or cyanosis, edema is stable Neuro oriented x3, moves all extremities and no focal motor deficits Neuro Narrative: Significant generalized weakness noted but no focal deficits Speech: speech normal Psych affect normal Psych Narrative: patient is able to interact appropriately, very pleasant, eye contact is good Assessment & Plan Assessment/Plan (1) Staphylococcus aureus bacteremia: (2) Syncope and collapse: (3) Aortic stenosis: QUALIFIERS: Cardiac valve disease etiology: nonrheumatic Qualified Code(s): I35.0 - Nonrheumatic aortic (valve) stenosis PLAN: Plan Staph aureus bacteremia -Likely related to skin -Clearance blood cultures from 02/19/2024 are negative at 72 hours -TTE done 02/19/2024 shows an EF of 50% with moderate LVH, severe diffuse aortic valve calcification with a mean aortic valve gradient of 45 mmHg consistent with critical aortic stenosis, pulmonary artery pressures of 80 mmHg and no obvious vegetations -YADI done 02/20/2024 did not show any signs of IE -Continue vancomycin while inpatient and plan is for 14 days of linezolid at discharge -ID following-appreciate input Syncope -Suspect related to overdiuresis with severe aortic stenosis -Patient was orthostatic on admission -Hold home Lasix due to low pressure -Both TTE and YADI show critical to severe aortic stenosis -Cardiology following Critical to severe aortic stenosis -Patient will need repeat blood cultures after antibiotics are completed with outpatient follow-up to see cardiology following to arrange further evaluation for his aortic stenosis and possible TAVR -Will request that these cultures to be done at TCU after antibiotics are completed -Likely contributed to syncopal event -Now in the setting of Staph aureus bacteremia -No signs of vegetation on TTE or YADI -Cardiology is following-appreciate input Hypoxia -Currently on 2 L -Wean as able -Patient does have moderate to severe pulmonary hypertension with right ventricular systolic pressures of 80 mmHg on his echocardiogram -May be related to bacteremia -Suspect this is related to his severe aortic stenosis and pulmonary hypertension -CTA of the chest did not show any PE but did show some small bilateral pleural effusions with a 1.8 x 0.7 cm pleural-based nodule that was concerning for a focal area of infiltrate -Chest x-ray on presentation was unremarkable -Lasix on hold due to soft pressures Persistent atrial fibrillation/RVR on presentation -Rate is now controlled -INR is 2.9 -Continue warfarin -Continue home Lopressor Chronic anemia -Hemoglobin stable -Baseline appears as if it has been running between 10 and 12 -Most recent hemoglobin was stable at 10.6 Thrombocytopenia -Resolved Hyponatremia -Home Lasix on hold due to pressures -Will repeat BMP tomorrow -Continue to monitor Hypophosphatemia -resolved Debility -PT/OT following-appreciate input -Plan is for discharge to TCU HFpEF/moderate pulmonary hypertension/HTN/HPL -Continue home metoprolol -Lasix on hold -Continue home statin Venous stasis ulcers -Chronic -Wound care following Recent herpes zoster infection -Lesions noted on right lower back-resolving -Patient has completed acyclovir -Okay to be out of precautions 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
[2024-02-22] MEDS: Doxazosin 1 MG Tablet 2 MG PO (19:48)
[2024-02-22] MEDS: Atorvastatin Calcium 10 MG Tablet 5 MG PO (19:48)
[2024-02-22] MEDS: MELATONIN 3 MG TABLET PO (19:54)
--- NOTE | 2024-02-22 21:58 | CPS ---
Pt using own cpap from home with 2L bled in
[2024-02-23] MEDS: oxyCODONE 5 MG Tablet PO ×4 (00:12→15:07)
[2024-02-23] MEDS: Vancomycin HCl 1,500 MG in 0.9% Normal Saline (500mL Bag) 500 ML 250 MG IV (00:12)
[2024-02-23] MEDS: 0.9% Saline Lock 10 ML Syringe IV (00:12)
[2024-02-23 03:41] VITALS: BMI 34.2
[2024-02-23 05:20] VITALS: BP 114/61; PULSE 62; RESP 18; TEMP 36.6; O2SAT 96
[2024-02-23 06:41] VITALS: PULSE 62; RESP 16; O2SAT 96
[2024-02-23] MEDS: Budesonide Respules 0.5 MG/2 ML AMPUL.NEB. INHALATION (06:41)
[2024-02-23 07:54] LABS: Hematocrit 34.5 % (40-54); Hemoglobin 10.8 g/dL (13.0-16.5); Mean Corp Hgb Conc 31.3 g/dL (32-36); Mean Corpuscular Hgb 28.9 pg (27.0-32.0); Mean Corpuscular Volume 92.2 fL (80-94); Mean Platelet Vol. 10.9 fl (6.2-12.0); Platelet Count 249 K/mm3 (150-450); RBC Distribution Width CV 16.2 % (11.6-14.6); RBC Distribution Width SD 55.3 fl (35.1-43.9); Red Blood Count 3.74 M/mm3 (4.6-6.2); White Blood Count 7.7 K/mm3 (4.4-11.0)
[2024-02-23 08:01] LABS: International Normalized Ratio 2.8; Prothrombin Time (Protime)PT. 28.9 SECONDS (11.7-14.9)
[2024-02-23 09:13] LABS: Anion Gap 5 (5-15); BUN 10 mg/dL (7-18); BUN/Creat Ratio 20.8 RATIO (10-20); Calcium,Total 8.7 mg/dL (8.5-10.1); Chloride 108 mmol/L (98-107); Creatinine, Serum 0.48 mg/dL (0.70-1.30); EST Glomerular Filtration Rate 180 mL/min (>60); Est Glom Filt Rate - Afr Amer 218 mL/min (>60); Estimated Creatinine Clearance 102.74 ml/min; Glucose 90 mg/dL (74-106); Sodium Level 137 mmol/L (136-145)
--- NOTE | 2024-02-23 09:20 | CASEMGMT ---
Patient was approved for TCU. will notify physician. Plan: d/c to [facility] TCU Tsering LIU
[2024-02-23 09:32] VITALS: BP 91/47; PULSE 75; RESP 16; TEMP 36.5; O2SAT 98
[2024-02-23] MEDS: Menthol/Lanolin/Calamine/Znox 113 GM Tube 1 APPLIC TOPICAL (09:33)
[2024-02-23] MEDS: Lidocaine 5% Patch 1 PATCH TOPICAL (09:34)
[2024-02-23] MEDS: Acetaminophen 325 MG Tablet 650 MG PO ×2 (09:34→15:07)
[2024-02-23] MEDS: Nystatin Powder 15gm Bottle 1 APPLIC TOPICAL (09:34)
--- NOTE | 2024-02-23 11:54 | TREXTCAR_ITS ---
Diet Diet Order/Speech Therapy: 02/20/24 11:07 Diet: Cardiac - Heart Healthy Sodium restricted to 2 grams daily and fluid restricted to 1500 cc daily Is pt able to select menu?: Yes Routine Orders/Code Status O2 Liters per Minute: 2 O2 Frequency: Continuous Keep PO Greater than or Equal to (%): 89 Routine Lab Work: CBC (1 week), BMP (1 week) and - (blood cultures MUST BE DRAWN on 03/07/2024) Code Status: Full Code Wound(s) r lower back: Wound Type: dried blisters SOFY: Wound Type: Skin Tear Dressing Change: Adaptic/foam dressing L lateral leg: Wound Type: Stasis Ulcer Dressing Change: Aquacel L great toe: Wound Type: Neuropathic/Diabetic Foot Ulcer Dressing Change: dry dressing coccyx: Wound Type: Pressure Injury Suggestions for Active Care Change Position every (hours): 2 Therapies Weight Bearing: Full weight bearing Physical Therapy: Eval and Treat Occupational Therapy: Eval and Treat Problem/Diagnosis (1) Staphylococcus aureus bacteremia: Status: Acute Code(s): R78.81 - Bacteremia; B95.61 - Methicillin susceptible Staphylococcus aureus infection as the cause of diseases classified elsewhere (2) Syncope and collapse: Status: Acute Code(s): R55 - Syncope and collapse (3) Aortic stenosis: Status: Acute Code(s): I35.0 - Nonrheumatic aortic (valve) stenosis Plan Long-term plan is for repeat blood cultures after antibiotics have been completed with outpatient follow-up to see cardiology to plan for aortic valve assessment for TAVR. Please get daily weights and if patient gains more or equal to 3 pounds in a 24- hour period please give Lasix 40 mg x 1 dose and reassess the next day avoid scheduled Lasix to avoid significant preload reduction due to his severe aortic stenosis. Allergies/Procedures Done in Hospital Allergies pramoxine Allergy (Verified 02/07/24 17:06) Rash Procedures: 2-D Echocardiogram, EKG, Transesophageal Echo and - (Chest x-ray/CTA of the chest) Type of Care/Length of Stay Estimated LOS: Convalescent Care Less Than 30 days Type of Care Needed: Skilled Rehab Potential: Fair Prognosis: Fair Additional Orders/Day of Discharge Day of Discharge: 02/23/24 Dietary and Speech Recommendations Dietitian Recommendations/Changes: cardiac diet, recommend fluid restriction as indicated; Cristhian BID for wound healing Follow Up Care Please follow up with your Primary Care Physician in: 4 weeks Please Follow Up With: Shady Obrien MD When: Week of Jul 11 or after-->appt needs made Discharge Plan Admission Admit Date/Time: 02/17/24 04:43 Attending Provider: Angela Welch Primary Care Provider: [facility],[place] Consulting Providers: Karen Sinha; Bharat Wilkins; Edvin Currie; Shady Obrien Discharge Orders/Prescriptions Prescriptions: New linezolid 600 mg tablet 600 mg PO Q12H 12 Days Qty: 24 0RF Discontinued acyclovir 800 mg Tablet 800 mg PO 4X/DAY 5 Days Qty: 20 0RF No Action simvastatin 10 mg Tablet 10 mg PO QHS terazosin 2 mg Capsule 2 mg PO QHS warfarin 5 mg Tablet 5 mg PO DAILY Hold Instructions: Until instructed to reinitiate after follow-up INR lidocaine 5 % Adhesive Patch,Medicated 1 patch topical DAILY Qty: 15 0RF Protocol: *Topical Application Instructions APPLICATION INSTRUCTIONS: To the painful area and back Stiolto Respimat 2.5-2.5 mcg/actuation mist 1 puff inhalation BID albuterol sulfate 90 mcg/actuation HFA aerosol inhaler 1 puff inhalation Q4H PRN (Reason: SOB) furosemide 40 mg Tablet 40 mg PO DAILY 30 Days Qty: 30 2RF oxycodone 5 mg Tablet 5 mg PO Q6H PRN PRN (Reason: Pain Score 4-10) 7 Days Qty: 28 0RF potassium chloride 20 mEq Tablet,Er Particles/Crystals 20 meq PO DAILY 30 Days Qty: 30 2RF acetaminophen 500 mg Tablet 1,000 mg PO Q8 30 Days Qty: 180 0RF Rx Instructions: Do not exceed 1000 mg 3 times a day oxycodone 10 mg tablet 10 mg PO TID Referrals / Follow Up: [place] [Primary Care Provider] - (3) Aortic stenosis Qualifiers: Cardiac valve disease etiology: nonrheumatic Qualified Code(s): I35.0 - Nonrheumatic aortic (valve) stenosis
--- NOTE | 2024-02-23 12:01 | PCM.DC.SUM ---
Providers Date of Admission: 02/17/24 Date of Discharge: 02/23/24 Primary Care Physician: [facility] Consultations 02/17/24 05:27 Consult: Onc/Wound/low pressure firer Routine Comment: Reason for Consult:: BL LE stasis wounds 02/18/24 11:02 Consult: Infectious Disease Routine Consulting Provider: Edvin Currie Reason for Consult: Staph bacteremia EMERGENT Consult: No Notified: Yes Date Notified: 02/19/24 Time Notified: 08:28 Method of Notification: Text 02/19/24 08:56 Consult: Infectious Disease Routine Consulting Provider: Edvin Currie Reason for Consult: MRSA bacteremia EMERGENT Consult: No Notified: Yes Date Notified: 02/19/24 Time Notified: 08:57 Method of Notification: Text 02/19/24 09:16 Consult: Cardiology Routine Consulting Provider: Shady Obrien Reason for Consult: AV stenosis with syncope and S. Aureus bacteremia EMERGENT Consult: No Notified: Yes Date Notified: 02/19/24 Time Notified: 09:17 Method of Notification: Verbal Reason For Visit: SYNCOPE, ADULT FTT Diagnosis Discharge Diagnosis (1) Staphylococcus aureus bacteremia: Status: Acute Code(s): R78.81 - Bacteremia; B95.61 - Methicillin susceptible Staphylococcus aureus infection as the cause of diseases classified elsewhere (2) Syncope and collapse: Status: Acute Code(s): R55 - Syncope and collapse (3) Aortic stenosis: Status: Acute Code(s): I35.0 - Nonrheumatic aortic (valve) stenosis Qualifiers: Cardiac valve disease etiology: nonrheumatic Qualified Code(s): I35.0 - Nonrheumatic aortic (valve) stenosis Medications at Discharge Home Medications simvastatin 10 mg tablet 10 mg PO QHS cholesterol 09/06/22 terazosin 2 mg capsule 2 mg PO QHS prostate 09/06/22 warfarin 5 mg tablet 5 mg PO DAILY blood thinner 09/06/22 lidocaine 5 % topical patch 1 patch topical DAILY pain #15 ea 09/08/22 albuterol sulfate 90 mcg/actuation aerosol inhaler 1 puff inhalation Q4H PRN SOB 02/08/24 tiotropium 2.5 mcg-olodaterol 2.5 mcg/actuation mist for inhalation (Stiolto Respimat) 1 puff inhalation BID breathing 03/28/24 acetaminophen 500 mg tablet 1,000 mg (2 x 500 mg) PO Q8 pain 30 days #180 tabs 02/16/24 oxycodone 5 mg tablet 5 mg PO Q6H PRN PRN Pain Score 4-10 7 days #28 tabs 02/16/24 oxycodone 10 mg tablet 10 mg PO TID pain 02/17/24 linezolid 600 mg tablet 600 mg PO Q12H 12 days #24 tabs 02/22/24 Hospital Course Operations None Procedures 2-D Echocardiogram, EKG, Transesophageal Echo and - (Chest x-ray/CTA of the chest) Summary of Care Provided Minutes Spent on Discharge: 42 Hospital Course: Mr. Monteiro is a 73-year-old white male who presented to emergency department at [facility] on 02/17/2024 after a syncopal event. The patient has a very complicated past medical history. He was discharged here recently on 02/16/2024 following treatment for heart failure with preserved ejection fraction and new moderate to severe aortic valve stenosis with scrotal edema. Echocardiogram was done at that time and showed EF of 65 to 70%, concentric LVH, moderately enlarged LA and RA, normal RV and moderate to severe aortic valve stenosis with plan for outpatient cardiac catheterization. He is on empiric acyclovir for suspected shingles and represented on 02/17/2024 after his syncopal episode that he experienced at home. He denied any injury but was found at approximately 1 AM by his family. He was complaining of lightheadedness and dizziness with positional changes prior to the syncopal event and reported he felt significantly weak and fatigued when he was trying activity. He did diurese extremely well to the point where he had 42 pounds of weight loss during his last hospitalization. Vital signs on presentation showed a temperature of 97, heart rate 118, blood pressure 123/85, respiratory was 33 and oxygen saturations were 95% on 4 L. He is typically on room air at baseline. His CBC showed a normal white count and stable hemoglobin but he did have a lymphocytosis. His BMP showed mild hyponatremia the sodium of 134 and a serum creatinine of 1.18 which is close to his baseline. His troponin was 40. Chest x-ray showed no acute findings. EKG was A-fib with RVR showing a heart rate of 117 but no evidence of acute ischemia. He was given 500 cc bolus in the emergency department admitted to the medical floor. Blood cultures were obtained prior to admission by the emergency department. His orthostatic vital signs were positive on presentation and he did appear dry. His Lasix were held and he was given IV fluids. Preliminary blood cultures were noted to have gram-positive cocci in clusters which is concerning for staph species. He was started on vancomycin. His cultures were identified to be MRSA bacteremia. Cardiology and infectious disease were consulted. Cardiology recommended we obtain both a TTE and a YADI. Both were done and his EF is stable when compared to previous, aortic valve showed critical aortic valve stenosis but no vegetations were identified on either study. Cardiology has recommended that he be evaluated for TAVR once his blood cultures are cleared. They request that repeat blood cultures be obtained after his antibiotics are completed. He has 12 more days of antibiotics at the time of discharge with linezolid per ID recommendations. The plan is for him to complete his antibiotics on the and obtain a cultures on the with outpatient follow-up in the cardiology office the week of March [address] Obrien to assess the sterility of his repeat cultures after antibiotics are completed and for referral for TAVR. He does have some wounds on bilateral lower extremities both are fairly superficial and have no signs of infection at this time however we do suspect his bacteremia source is likely skin related. We held his Lasix during his hospitalization and controlled his edema with fluid and salt restricted diet. We have asked that he be weighed on a daily basis at the transitional care unit after discharge and to dose Lasix on a as needed basis if his weight goes up equal to or greater than 3 pounds in a 24-hour period. He is to be on a fluid restricted diet of 1500 cc daily and a sodium restricted diet of 2 g of sodium or less daily. His INR was stable throughout his hospitalization and at the time of discharge was 2.8. I would recommend a repeat INR be done in the next 5 to 7 days and then per recommendations of the covering physician at the [facility] facility following. He was evaluated by rehab services while hospitalized and they did deem him appropriate for ongoing rehab as an inpatient after discharge. He was accepted at the transitional care unit and we received pre-CERT on 02/23/2024. He was able to be discharged there in stable condition on 02/23/2024. Discharge diagnoses: Staph aureus bacteremia Syncope Severe to critical aortic stenosis Hypoxia Persistent atrial fibrillation Chronic anemia Thrombocytopenia Hyponatremia Hypophosphatemia Debility HFpEF Moderate pulmonary hypertension Hypertension Operative anemia Chronic venous stasis ulcers History of recent herpes zoster infection BPH with obstruction COPD History of vertebral fractures/chronic back pain Obesity Physical Exam Const alert, oriented x3, no apparent distress and well nourished; Negative for average body habitus or healthy appearing Constitutional Narrative: Obese, older, white male, sitting up in a chair at the bedside, napping, BiPAP in place patient awakens easily, currently appears comfortable and nontoxic, appears chronically ill and older than stated age General Appearance: cooperative, comfortable, well kempt and well developed Orientation / Consciousness: awake, oriented to person, oriented to place and oriented to time Exam Limitations: no limitations Nutritional Appearance: obese HEENT normocephalic, head/scalp atraumatic and moist oral mucous membranes HEENT Narrative: Dentition is extremely poor, Mallampati is 3, no thrush, mild hearing loss Eyes PERRL, EOMs intact bilaterally and conjunctivae normal Eyes Narrative: No scleral icterus Neck full ROM, no lymphadenopathy and supple Neck Narrative: Trachea midline, no thyroid enlargement Resp normal respiratory effort, normal air movement, no retractions, no use of accessory muscles and clear to auscultation bilaterally Resp Narrative: Diminished diffusely but clear Auscultation: Negative for crackles, rhonchi or wheezes Cardio regular rate, S1 normal heart sound, no rub, no gallops, no clicks and peripheral pulses 2+ throughout; Negative for regular rhythm, S2 normal heart sound or no murmurs Cardio Narrative: Irregular irregular rhythm with good rate control, 3 out of 6 to 4 out of 6 systolic murmur with quiet S2 GI normal to inspection, nondistended, normoactive bowel sounds, soft to palpation and non-tender Extremity Extremity Narrative: No clubbing or cyanosis, edema is stable in bilateral lower extremities Skin Skin Narrative: Bilateral lower extremity wounds noted and reviewed with skin care nurse who is at the bedside today, no drainage, no signs of infection, no erythema Neuro oriented x3, CN's II-XII intact bilaterally, moves all extremities and no focal motor deficits Neuro Narrative: Significant generalized weakness noted but no focal deficits Speech: speech normal Psych mental status grossly normal and affect normal Psych Narrative: patient is able to interact appropriately, very pleasant, eye contact is good Weight / BMI Weight Weight: 111.2 kg Body Mass Index (BMI) 34.2 ABG / Lab / Microbiology Data 02/23/24 07:00 02/23/24 07:00 Laboratory: Laboratory Results - last 24 hr 02/23/24 07:00: WBC 7.7, RBC 3.74 L, Hgb 10.8 L, Hct 34.5 L, MCV 92.2, MCH 28.9, MCHC 31.3 L, RDW Std Deviation 55.3 H, RDW Coeff of Medardo 16.2 H, Plt Count 249, MPV 10.9, PT 28.9 H, INR 2.8, Sodium 137, Potassium 4.0, Chloride 108 H, Carbon Dioxide 24.0, Anion Gap 5, BUN 10, Creatinine 0.48 L, Estim Creat Clear Calc 102.74, Est GFR (MDRD) Af Amer 218, Est GFR (MDRD) Non-Af 180, BUN/Creatinine Ratio 20.8 H, Glucose 90, Calcium 8.7 Microbiology: Microbiology 02/20/24 11:07 Blood Culture (Wb) - Left Hand Blood Culture - Preliminary No growth in 48 hours. 02/19/24 10:15 Blood Culture (Wb) - Left Wrist Blood Culture - Preliminary No growth in 48 hours. 02/19/24 09:18 Blood Culture (Wb) - Left Hand Blood Culture - Preliminary No growth in 48 hours. 02/17/24 10:55 Blood Culture (Wb) - Left Wrist Bacteria Detection (PCR) - Final Staphylococcus aureus 02/17/24 10:55 Blood Culture (Wb) - Left Wrist Blood Culture - Final Meth. resistant Staph. aureus 02/17/24 11:15 Blood Culture (Wb) - Left Wrist Blood Culture - Final Staphylococcus aureus 02/17/24 13:50 Urine, Clean Catch Urine Culture - Final Proteus sp. 02/17/24 11:22 Mucosa - Nose Respiratory Panel (PCR) - Final D/C Instructions Discharge Diet: Low fat / Low cholesterol, 8 Cup Fluid Restriction and 2000 mg Sodium Diet Please Follow Up With: Shady Obrien MD Meaningful Use Info Meaningful Use Diagnoses (Choose all that apply): None applicable Discharge Plan Admission Admit Date/Time: 02/17/24 04:43 Primary Reason for Your Visit: Syncope Attending Provider: Angela Welch Primary Care Provider: [facility],[place] Consulting Providers: Karen Sinha; Bharat Wilkins; Edvin Currie; Shady Obrien Instructions Additional Instructions / Restrictions: 1. Repeat blood cultures need to be obtained on 03/07/2024 2. Patient needs to be weighed on daily basis and dose Lasix 40 mg orally if he gains equal to or greater than 3 pounds in a 24-hour period and then reassess the next day Discharge Orders/Prescriptions Prescriptions: New linezolid 600 mg tablet 600 mg PO Q12H 12 Days Qty: 24 0RF Continued simvastatin 10 mg Tablet 10 mg PO QHS terazosin 2 mg Capsule 2 mg PO QHS warfarin 5 mg Tablet 5 mg PO DAILY Hold Instructions: Until instructed to reinitiate after follow-up INR lidocaine 5 % Adhesive Patch,Medicated 1 patch topical DAILY Qty: 15 0RF Protocol: *Topical Application Instructions APPLICATION INSTRUCTIONS: To the painful area and back Stiolto Respimat 2.5-2.5 mcg/actuation mist 1 puff inhalation BID albuterol sulfate 90 mcg/actuation HFA aerosol inhaler 1 puff inhalation Q4H PRN (Reason: SOB) oxycodone 5 mg Tablet 5 mg PO Q6H PRN PRN (Reason: Pain Score 4-10) 7 Days Qty: 28 0RF acetaminophen 500 mg Tablet 1,000 mg PO Q8 30 Days Qty: 180 0RF Rx Instructions: Do not exceed 1000 mg 3 times a day Held oxycodone 10 mg tablet 10 mg PO TID Hold Instructions: Unless needed Discontinued furosemide 40 mg Tablet 40 mg PO DAILY 30 Days Qty: 30 2RF acyclovir 800 mg Tablet 800 mg PO 4X/DAY 5 Days Qty: 20 0RF potassium chloride 20 mEq Tablet,Er Particles/Crystals 20 meq PO DAILY 30 Days Qty: 30 2RF Referrals / Follow Up: Shady Obrien MD [Med Staff - Active Staff] - (Appointment will need to be made for the week of March 11 or after) [facility] [[facility] - Disposition Disposition (needs filled in before D/C Order can be placed): Shelter Facility Charges/Coding Visit Charges Inpatient E&M: 93204 SNF Disch >30 Min
--- NOTE | 2024-02-23 13:24 | CASEMGMT ---
SW met with patient and he was aware he will go to TCU today. SW asked patient if he would like SW to call anyone for him and patient said he already called family. Patient said his family will bring in clothes for him later after they get off work. Plan: d/c [facility] TCU under skilled level of care. Tsering LIU
--- NOTE | 2024-02-23 14:23 | NURSING ---
called report to JUAN CARLOS on TCU
[2024-02-23 15:10] VITALS: BP 98/64; PULSE 65; RESP 18; TEMP 36.7; O2SAT 96
== END 2024-02-23 15:42 | DRG 872 ==
LOC: ED 04:34 → PCU 04:50
PROVIDERS: Hospitalist; Internal Medicine Infectious Disease; Admitting Provider Family Medicine; Emergency Provider Emergency Medicine; Visit Provider Internal Medicine
DX: R78.81 Bacteremia (principal); E87.1 Hypo-osmolality and hyponatremia; I50.32 Chronic diastolic (congestive) heart failure; I48.11 Longstanding persistent atrial fibrillation; L97.211 Non-pressure chronic ulcer of right calf limited to breakdown of skin; L97.221 Non-pressure chronic ulcer of left calf limited to breakdown of skin; N13.8 Other obstructive and reflux uropathy; I27.20 Pulmonary hypertension, unspecified; D69.6 Thrombocytopenia, unspecified; E83.39 Other disorders of phosphorus metabolism; I11.0 Hypertensive heart disease with heart failure; J44.9 Chronic obstructive pulmonary disease, unspecified; E66.01 Morbid (severe) obesity due to excess calories; I35.0 Nonrheumatic aortic (valve) stenosis; D64.89 Other specified anemias; I95.1 Orthostatic hypotension; I87.2 Venous insufficiency (chronic) (peripheral); E78.5 Hyperlipidemia, unspecified; G47.33 Obstructive sleep apnea (adult) (pediatric); R09.02 Hypoxemia; G89.29 Other chronic pain; N40.1 Benign prostatic hyperplasia with lower urinary tract symptoms; B95.62 Methicillin resistant Staphylococcus aureus infection as the cause of diseases classified elsewhere; B02.9 Zoster without complications; R53.81 Other malaise; R62.7 Adult failure to thrive; Z68.34 Body mass index [BMI] 34.0-34.9, adult; Z79.01 Long term (current) use of 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s; Z79.51 Long term (current) use of inhaled steroids; Z79.891 Long term (current) use of opiate analgesic; Z79.899 Other long term (current) drug therapy; Z87.81 Personal history of (healed) traumatic fracture; Z87.891 Personal history of nicotine dependence
CPT/HCPCS: 36415; 71045; 71275; 80048; 80053; 80202; 81001; 83735; 84100; 84484; 85025; 85027; 85610; 87040; 87077; 87086; 87088; 87149; 87186; 87633; 93005; 93306; 93312; 93320; 93325; 94640; 94660; 94668; 97162; 97166; 97530; 97535; 97802; 97803; 99284; J7030; J7040; J7120; Q9967; A4216

== ENCOUNTER 2024-02-23 15:45 | Inpatient (IN) | payer MEDICARE, SELFPAY ==
[2024-02-23 16:12] VITALS: BP 104/66; PULSE 76; RESP 18; TEMP 36.4; O2SAT 96; BMI 36.6
--- NOTE | 2024-02-23 17:57 | PCM.HP.STD ---
HPI - General General Date of Admission: 02/23/24 Date of Service: 02/23/24 Chief Complaint: Here for rehabilitation. HPI Narrative 02/17/2024 ANDER DIAZ, is a 73 Male who presents to [facility] ED with syncope. Passed out, woke up on floor. Recent hospitalization for CHF, lower extremity edema, scrotal edema, treat with Lasix drip, lost 42 pounds. Discharged from hospital yesterday. Atrial fibrillation with RVR. 02/17/2024 Admit to [facility]. Serial cardiac enzymes, IV fluids for syncope. PT/OT for FTT. 02/17/2024 Hold Lasix, given Normal Saline 1 liter iv bolus, for orthostasis. Urinalysis, Ceftriaxone IV for UTI, fever. 02/17/2024 Blood cultures positive 2/2 for gram positive cocci. 02/18/2024 Blood culture growing Staph Aureus. Vancomycin IV, ID, TTE versus YADI for sepsis, Staph Aureus bacteremia, rule out endocarditis. [place]ima for BPH, urinary retention. Acyclovir 4x/day x 7 days for Shingles. 02/19/2024 Echo Normal LV. Moderate concentric LVH. EF 50%. Severe diffuse aortic valve calcification. Critical aortic stenosis. PASP 80mm HG. Moderate pulmonary HTN. 02/19/2024 Dr. Gomez recommended Vancomycin IV, YADI, Stop Acyclovir. 02/20/2024 YADI negative for endocarditis. 02/21/2024 Vancomycin IV for Staph Aureus bacteremia. Syncope 2/2 critical , Orthostasis. Wean oxgen for hypoxia. 02/22/2024 Linezolid x 12 days for S. Aureus bacteremia. PT/OT for TCU. 02/23/2024 Admit to TCU with debility, here for rehabilitation, strengthening, prior to discharge home with family. Resident son Yariel present at time of interview. COUNT INCLUDES [facility] Medical History (Updated 02/23/24 @ 18:[address] Freedom Sutton MD) (HFpEF) heart failure with preserved ejection fraction Anemia Aortic stenosis Chronic pain syndrome Compression fx, thoracic spine COPD (chronic obstructive pulmonary disease) Former smoker HLD (hyperlipidemia) Hypertension Longstanding persistent atrial fibrillation Obesity RAFAEL on CPAP Home Medications simvastatin 10 mg tablet 10 mg PO QHS cholesterol 09/06/22 [History Last Taken 02/22/24] terazosin 2 mg capsule 2 mg PO QHS prostate 09/06/22 [History Last Taken 02/22/24] warfarin 5 mg tablet 5 mg PO DAILY blood thinner 09/06/22 [History Last Taken 02/22/24 16:15] lidocaine 5 % topical patch 1 patch topical DAILY pain #15 ea 09/08/22 [Rx Last Taken 02/23/24] albuterol sulfate 90 mcg/actuation aerosol inhaler 1 puff inhalation Q4H PRN SOB 02/08/24 [History Last Taken 02/23/24] tiotropium 2.5 mcg-olodaterol 2.5 mcg/actuation mist for inhalation (Stiolto Respimat) 1 puff inhalation BID breathing 02/08/24 [History Last Taken Unknown] acetaminophen 500 mg tablet 1,000 mg (2 x 500 mg) PO Q8 pain 30 days #180 tabs 02/16/24 [Rx Last Taken 02/23/24] oxycodone 5 mg tablet 5 mg PO Q6H PRN PRN Pain Score 4-10 7 days #28 tabs 02/16/24 [Rx Last Taken 02/23/24 09:35] oxycodone 10 mg tablet 10 mg PO TID pain 02/17/24 [History Last Taken 02/16/24] linezolid 600 mg tablet 600 mg PO Q12H Antibiotic 12 days #24 tabs 02/22/24 [Rx Last Taken Unknown] Allergy/AdvReac Type Severity Reaction Status Date / Time pramoxine Allergy Rash Verified 02/07/24 17:06 Family History Mother Cancer Father CAD (coronary artery disease) Heart disease Hypertension Myocardial infarction Surgical History History of cardiac radiofrequency ablation (RFA) History of tonsillectomy and adenoidectomy Social History household members: family Smoking Status: Former smoker how long ago did patient quit smoking: Quit ~ 35 yrs prior. alcohol intake: never substance use type: does not use ROS Constitutional Constitutional: Reports fatigue and weakness; Denies chills, fever(s) or weight gain ENT HEENT: Denies headache(s), nasal congestion or nasal discharge Cardiovascular Cardiovascular: Denies chest pain or palpitations Respiratory/Chest Respiratory/Chest: Denies cough, excessive phlegm production or shortness of breath with exertion Gastrointestinal Gastrointestinal: Denies abdominal pain, nausea or vomiting Genitourinary Genitourinary: Denies dysuria Musculoskeletal Musculoskeletal: Denies joint pain or joint swelling Integumentary Integumentary: Denies rash or wounds Neurologic Neurologic: Denies focal weakness, numbness or tingling Psychiatric Psychiatric: Denies anxiety, auditory hallucinations, depression, homicidal ideation or suicidal ideation Vital Signs Vital Signs Vital Signs: 02/23/24 16:12 Temperature 97.6 F L Temperature Source Temporal Pulse Rate 76 Respiratory Rate 18 Blood Pressure 104/66 Blood Pressure Mean 78 Blood Pressure Source Monitor Blood Pressure Position Sitting Blood Pressure Location Right Arm Pulse Ox 96 Oxygen Delivery Method Room Air Weight Weight: 119.295 kg Body Mass Index (BMI) 36.6 Physical Exam Const alert General Appearance: cooperative HEENT normocephalic Eyes PERRL and EOMs intact bilaterally Neck supple, no JVD and no carotid bruits Resp normal respiratory effort, normal air movement and clear to auscultation bilaterally Cardio regular rate and regular rhythm Heart Sounds: murmur systolic III/ blowing left sternal border to carotid arteries GI normal to inspection, nondistended, normoactive bowel sounds, non-tender and non-distended Extremity normal capillary refill General Extremity: Negative for edema Skin no rashes or lesions noted General Skin Exam: no breakdown Psych affect normal Appearance: appropriate Assessment & Plan Assessment/Plan (1) Debility: (2) Syncope: QUALIFIERS: Syncope type: unspecified Qualified Code(s): R55 - Syncope and collapse (3) Sepsis: (4) Staphylococcus aureus bacteremia: (5) Orthostatic hypotension: (6) Urinary retention: (7) Atrial fibrillation: (8) Critical aortic valve stenosis: (9) COPD (chronic obstructive pulmonary disease): (10) Hypertension: (11) HLD (hyperlipidemia): (12) BPH (benign prostatic hyperplasia): (13) Hypokalemia: (14) Chronic heart failure with preserved ejection fraction (HFpEF): PLAN: Plan 73 year old male with below past medical history hospitalized for syncope 2/2 orthostasis, critical aortic stenosis, complicated by sepsis, s. aureus bacteremia, endocarditis ruled out, admitted to TCU with debility, here for rehabilitation, strengthening, prior to discharge home with family. Debility - PT/OT. Pain - Tylenol 1000mg q8, Oxycodone 5mg q6 prn pain (4-10), Lidoderm 1 patch td daily. Bowel - senna/colace 2 tablets bid, Magnesium citrate 300ml daily prn. Adult immunization - Administer pneumonia vaccine, covid vaccine, flu vaccine as appropriate. DVT prophylaxis - on warfarin. COPD - Anoro 1 puff daily, Albuterol 1 puff q4h prn. Hyperlipidemia - Atorvastatin 5mg qhs. BPH - Doxazosin 2mg qhs. S. Aureus bacteremia - Linezolid 600mg q12 thru 03/06/2024. Atrial fibrillation - Warfarin 5mg daily, monitor inr. Critical aortic stenosis - Follow up with Dr. Obrien at discharge to consider TAVR versus open AVR.
[2024-02-23] MEDS: oxyCODONE 5 MG Tablet PO (18:27)
[2024-02-23] MEDS: Doxazosin 1 MG Tablet 2 MG PO (22:36)
[2024-02-23] MEDS: Acetaminophen 500 MG Tablet 1000 MG PO (22:36)
[2024-02-23] MEDS: Linezolid 600 MG Tablet PO (22:36)
[2024-02-23] MEDS: Atorvastatin Calcium 10 MG Tablet 5 MG PO (22:37)
[2024-02-23] MEDS: Senna/Docusate Sodium 1 Tablet 2 TABLET PO (22:39)
[2024-02-23] MEDS: Menthol/Lanolin/Calamine/Znox 113 GM Tube 1 APPLIC TOPICAL (22:48)
[2024-02-23] MEDS: Nystatin Powder 15gm Bottle 1 APPLIC TOPICAL (22:48)
[2024-02-24] MEDS: oxyCODONE 5 MG Tablet PO ×4 (01:12→22:50)
--- NOTE | 2024-02-24 01:25 | NURSING ---
Patient stating he is burning up and needing a pain pill. Temperature taken, 99.3F orally. Thermostat turned down. Oxycodone administered for back pain. Will continue to monitor.
[2024-02-24] MEDS: Acetaminophen 500 MG Tablet 1000 MG PO ×3 (06:06→20:59)
--- NOTE | 2024-02-24 06:11 | NURSING ---
Patient's temperature rechecked this morning prior to medication administration. 99.2F orally. Communication left for Dr. Sutton. Tylenol administered. Will continue to monitor.
[2024-02-24 06:57] LABS: Absolute Lymphocyte Count 1.28 X10^3/uL (0.83-4.51); Absolute Neutrophil Count 4.1 X10^3/uL (2.0-7.7); Basophil# 0.15 X10^3/uL; Basophil% 2.2 % (0-1); Eosinophil# 0.35 X10^3/uL; Eosinophils% 5.2 % (0-5); Hematocrit 35.4 % (40-54); Hemoglobin 10.8 g/dL (13.0-16.5); Lymphocyte # 1.28 X10^3/ul (0.83-4.51); Lymphocyte % 18.9 % (19-41); Mean Corp Hgb Conc 30.5 g/dL (32-36); Mean Corpuscular Hgb 27.9 pg (27.0-32.0); Mean Corpuscular Volume 91.5 fL (80-94); Mean Platelet Vol. 10.7 fl (6.2-12.0); Monocyte% 11.8 % (0-10); NRBC Flagged by Analyzer 0 % (0-5); Neutrophil # 4.13 X10^3/uL (2.7-7.7); Neutrophil % 60.9 % (47-70); Platelet Count 291 K/mm3 (150-450); RBC Distribution Width CV 16.4 % (11.6-14.6); RBC Distribution Width SD 54.8 fl (35.1-43.9); Red Blood Count 3.87 M/mm3 (4.6-6.2); White Blood Count 6.8 K/mm3 (4.4-11.0)
[2024-02-24 07:08] LABS: Anion Gap 1 (5-15); BUN 9 mg/dL (7-18); Calcium,Total 8.9 mg/dL (8.5-10.1); Chloride 106 mmol/L (98-107); Creatinine, Serum 0.53 mg/dL (0.70-1.30); EST Glomerular Filtration Rate 162 mL/min (>60); Est Glom Filt Rate - Afr Amer 196 mL/min (>60); Estimated Creatinine Clearance 106.45 ml/min; Glucose 93 mg/dL (74-106); Potassium 4.2 mmol/L (3.5-5.1); Sodium Level 138 mmol/L (136-145)
[2024-02-24] MEDS: Lidocaine 5% Patch 1 PATCH TOPICAL (09:57)
[2024-02-24] MEDS: Umeclidinium Brm/Vilanterol 62.5-25 mcg Inh 1 PUFF INHALATION (09:59)
[2024-02-24] MEDS: Nystatin Powder 15gm Bottle 1 APPLIC TOPICAL ×2 (09:59→21:03)
[2024-02-24] MEDS: Senna/Docusate Sodium 1 Tablet 2 TABLET PO ×2 (09:59→21:00)
[2024-02-24] MEDS: Linezolid 600 MG Tablet PO ×2 (10:00→21:01)
[2024-02-24] MEDS: Tuberculin,Purif.prot.deriv. 50 TU/ML Vial 0.1 ML ID (10:06)
[2024-02-24] MEDS: Menthol/Lanolin/Calamine/Znox 113 GM Tube 1 APPLIC TOPICAL ×2 (13:17→21:03)
[2024-02-24 15:13] VITALS: BP 91/48; PULSE 78; RESP 16; TEMP 36.3; O2SAT 95
[2024-02-24] MEDS: Juven (unflavored) Packet 1 PACKET PO (15:35)
[2024-02-24 21:00] VITALS: RESP 18
[2024-02-24] MEDS: Doxazosin 1 MG Tablet 2 MG PO (21:00)
[2024-02-24] MEDS: Atorvastatin Calcium 10 MG Tablet 5 MG PO (21:01)
[2024-02-24 21:05] VITALS: BP 98/62; PULSE 71
[2024-02-25] MEDS: oxyCODONE 5 MG Tablet PO ×5 (05:02→23:47)
[2024-02-25] MEDS: Acetaminophen 500 MG Tablet 1000 MG PO ×3 (05:03→19:51)
[2024-02-25 10:55] VITALS: BP 105/63; PULSE 66; RESP 17; TEMP 36.1; O2SAT 94
[2024-02-25] MEDS: Juven (unflavored) Packet 1 PACKET PO ×2 (11:05→17:33)
[2024-02-25] MEDS: Umeclidinium Brm/Vilanterol 62.5-25 mcg Inh 1 PUFF INHALATION (11:06)
[2024-02-25] MEDS: Menthol/Lanolin/Calamine/Znox 113 GM Tube 1 APPLIC TOPICAL ×2 (11:06→19:53)
[2024-02-25] MEDS: Lidocaine 5% Patch 1 PATCH TOPICAL (11:06)
[2024-02-25] MEDS: Senna/Docusate Sodium 1 Tablet 2 TABLET PO ×2 (11:07→19:51)
[2024-02-25] MEDS: Nystatin Powder 15gm Bottle 1 APPLIC TOPICAL ×2 (11:07→19:52)
[2024-02-25] MEDS: Linezolid 600 MG Tablet PO ×2 (11:08→20:04)
--- NOTE | 2024-02-25 12:07 | RAD_ITS ---
EXAM: XR LEFT SHOULDER COMPLETE, 2 OR MORE VIEWS CLINICAL INDICATION: pain 08/22 fall TECHNIQUE: Two or more views of the left shoulder. COMPARISON: No relevant prior studies available. FINDINGS: BONES/JOINTS: Cephalic drift of the left humeral head consistent with rotator cuff deformity. No acute fracture. SOFT TISSUES: No soft tissue swelling or gas. No radiopaque foreign body. RAD/Shoulder min 2 Views IMPRESSION: No acute fracture. Findings suggestive of rotator cuff deformity. Electronically Signed: Mani Kinney MD at 14:54 EDT ,
--- NOTE | 2024-02-25 12:09 | NURSING ---
retail shift manager reported pt c/o LT shoulder/back pain since fall prior to admit. dr horton notified, new order lt shoulder xray to r/o fx. oxyir freq changed.
--- NOTE | 2024-02-25 16:26 | NURSING ---
Updated Dr. Sutton on left shoulder xray. No new orders.
[2024-02-25] MEDS: Doxazosin 1 MG Tablet 2 MG PO (19:51)
[2024-02-25] MEDS: Atorvastatin Calcium 10 MG Tablet 5 MG PO (19:52)
[2024-02-25 19:58] VITALS: BP 110/54; PULSE 70
[2024-02-26] MEDS: oxyCODONE 5 MG Tablet PO ×5 (04:10→21:08)
[2024-02-26] MEDS: Acetaminophen 500 MG Tablet 1000 MG PO ×3 (05:16→20:48)
[2024-02-26 06:00] VITALS: BMI 36.7
[2024-02-26 06:15] LABS: International Normalized Ratio 2.9; Prothrombin Time (Protime)PT. 29.8 SECONDS (11.7-14.9)
[2024-02-26] MEDS: Juven (unflavored) Packet 1 PACKET PO ×2 (08:58→17:08)
[2024-02-26] MEDS: Umeclidinium Brm/Vilanterol 62.5-25 mcg Inh 1 PUFF INHALATION (08:58)
[2024-02-26] MEDS: Lidocaine 5% Patch 1 PATCH TOPICAL (08:58)
[2024-02-26] MEDS: Linezolid 600 MG Tablet PO ×2 (08:59→20:49)
[2024-02-26] MEDS: Senna/Docusate Sodium 1 Tablet 2 TABLET PO ×2 (08:59→20:51)
--- NOTE | 2024-02-26 08:59 | NS ---
MST = 2 - UBW not known
[2024-02-26] MEDS: Menthol/Lanolin/Calamine/Znox 113 GM Tube 1 APPLIC TOPICAL ×2 (09:00→20:47)
[2024-02-26] MEDS: Nystatin Powder 15gm Bottle 1 APPLIC TOPICAL ×2 (09:10→20:47)
--- NOTE | 2024-02-26 10:14 | PCM.PN.DRR ---
Documented by User: Bhavani Rosario 02/26/24 10:28 TCU RX Drug Regimen Review Subjective/Objective Subjective/Objective: Subjective: TCU Admission. 73 YOM presented to the ER with syncope. Hospitalized for syncope 2/2 orthostasis, critical aortic stenosis, complicated by sepsis, s. aureus bacteremia, endocarditis ruled out. Admitted to TCU with debility for strengthening and rehabilitation. Objective: Allergies pramoxine Allergy (Verified 02/07/24 17:06) Rash Current Medications Generic Name Dose Route Start Last Admin Trade Name Freq PRN Reason Stop Dose Admin Acetaminophen 1,000 mg 02/23/24 22:00 02/26/24 05:16 Acetaminophen 500 Mg Tablet PO 1,000 mg Q8 BERRY Administration Albuterol Sulfate 1 puff 02/23/24 16:41 Albuterol Ih (6.7 Gm) 1 Puff Inhaler INHALATION Q4H PRN SHORTNESS OF BREATH Atorvastatin Calcium 5 mg 02/23/24 22:00 02/25/24 19:52 Atorvastatin Calcium 10 Mg Tablet PO 5 mg QHS BERRY Administration Calamine/Phenol 1 applic 02/23/24 22:00 02/26/24 09:00 Menthol/Lanolin/Calamine/Znox 113 Gm Tube TOPICAL 1 applic BID BERRY Administration Protocol Doxazosin Mesylate 2 mg 02/23/24 22:00 02/25/24 19:51 Doxazosin 1 Mg Tablet PO 2 mg QHS BERRY Administration L-Arginine/L-Glutamine/Calcium HMB 1 packet 02/24/24 17:00 02/26/24 08:58 Cristhian (Unflavored) Packet PO 1 packet BIDCM BERRY Administration Lidocaine 1 patch 02/24/24 10:00 02/26/24 08:58 Lidocaine 5% Patch TOPICAL 1 patch DAILY BERRY Administration Protocol Linezolid 600 mg 02/23/24 22:00 02/26/24 08:59 Linezolid 600 Mg Tablet PO 03/06/24 10:01 600 mg Q12 BERRY Administration Magnesium Citrate 300 ml 02/23/24 18:16 Magnesium Citrate 300 Ml PO DAILY PRN Constipation Nystatin 1 applic 02/23/24 22:00 02/26/24 09:10 Nystatin Powder 15gm Bottle TOPICAL 1 applic BID BERRY Administration Protocol Oxycodone HCl 5 mg 02/25/24 12:09 02/26/24 08:57 Oxycodone 5 Mg Tablet PO 5 mg Q4H PRN Administration Pain Score 4-10 Senna/Docusate Sodium 2 tablet 02/23/24 22:00 02/26/24 08:59 Senna/Docusate Sodium 1 Tablet PO 2 tablet BID BERRY Administration Sodium Chloride 10 - 40 ml 02/23/24 16:46 0.9% Saline Lock 10 Ml Syringe IV UD PRN SALINE FLUSH Tuberculin PPD 0.1 ml 03/02/24 10:00 Tuberculin,Purif.Prot.Deriv. 50 Tu/Ml Vial ID 03/02/24 10:01 X1 ONE Umeclidinium/Vilanterol 1 puff 02/24/24 10:00 02/26/24 08:58 Umeclidinium Brm/Vilanterol 62.5-25 Mcg Inh INHALATION 1 puff DAILY BERRY Administration Warfarin Sodium 5 mg 02/23/24 17:00 02/25/24 17:33 Warfarin 5 Mg Tablet PO 5 mg DINNER BERRY Administration Problem List (Updated 02/24/24 @ 00:38 by Jose Turner) Chronic heart failure with preserved ejection fraction (HFpEF) (Acute) Hypokalemia (Acute) BPH (benign prostatic hyperplasia) (Acute) HLD (hyperlipidemia) (Acute) Hypertension (Chronic) COPD (chronic obstructive pulmonary disease) (Chronic) Critical aortic valve stenosis (Acute) Atrial fibrillation (Acute) Urinary retention (Acute) Orthostatic hypotension (Acute) Staphylococcus aureus bacteremia (Acute) Debility (Acute) Vital Signs Temp Pulse Resp BP Pulse Ox O2 Del Method 97.0 F L 70 17 110/54 L 94 Room Air 02/25/24 10:55 02/25/24 19:58 02/25/24 10:55 02/25/24 19:58 02/25/24 10:55 02/25/24 11:00 Oxygen Delivery Method Room Air Weight: 119.068 kg Body Mass Index (BMI) 36.7 Sodium 138 mmol/L (136-145) 02/24/24 06:30 Potassium 4.2 mmol/L (3.5-5.1) 02/24/24 06:30 Chloride 106 mmol/L (98-107) 02/24/24 06:30 Carbon Dioxide 31.0 mmol/L (21.0-32.0) 02/24/24 06:30 Anion Gap 1 (5-15) L 02/24/24 06:30 BUN 9 mg/dL (7-18) 02/24/24 06:30 Creatinine 0.53 mg/dL (0.70-1.30) L 02/24/24 06:30 Est GFR (MDRD) Af Amer 196 mL/min (>60) 02/24/24 06:30 Est GFR (MDRD) Non-Af 162 mL/min (>60) 02/24/24 06:30 BUN/Creatinine Ratio 17.0 RATIO (10-20) 02/24/24 06:30 Glucose 93 mg/dL (74-106) 02/24/24 06:30 Assessment/Plan: 1. Pain: acetaminophen 1000mg PO Q8, oxycodone 5mg PO Q6H PRN pain 4-10 and lidocaine 5% patch TD daily. Resident has had 5 doses of oxycodone for pain scores of 9 or 10 in the back/shoulder. Please continue to monitor for increased pain, PRN usage, constipation, rash and respiratory depression. 2. Bowel: senna/docusate 2T PO BID and magnesium citrate 300mL PO daily PRN constipation. Please continue to monitor for constipation/diarrhea and PRN usage. Last documented bowel movement was today. 3. S. aureus bacteremia: linezolid 600mg PO Q12 thru 03/06/24. Please continue to monitor platelets (last 291,000), diarrhea and rash. 4. Atrial fibrillation: warfarin 5mg PO dinner. Please continue to monitor for S/S of bleeding and INR (last 2.9). 5. Hyperlipidemia: atorvastatin 5mg PO QHS. Please continue to monitor lipid panel (last 02/08/24), LFT (last 02/20/24) and muscle pain. 6. COPD: Anoro 1puff daily and albuterol MDI 1 puff Q4H PRN shortness of breath. Resident has not used any PRN doses. Please continue to monitor HR (last 70), shortness of breath and dry mouth. 7. BPH: doxazosin 2mg PO QHS. Please continue to monitor for S/S of BPH and BP (last 110/54). This medication is on the BEERs list due to orthostatic hypotension. Please monitor carefully as resident presented to ER with syncope. Assessment/Plan for indications treated with psychotropic medications: None Medical chart and medication regimen reviewed. The following medication irregularities or issues were identified: None Date Date of Note:: 02/26/24 Documented by User: Dr. Freedom Sutton MD 02/26/24 13:09 TCU RX Drug Regimen Review Provider Comments Provider responsibility Provider Comments to Recommendations by Pharmacy: Agree
--- NOTE | 2024-02-26 11:10 | CASEMGMT ---
Social Work Met with pt to complete initial assessment. Introduced self and role. Verified contacts. Pt confirmed code status is full code. Does not have POA/Living Will. Educated to [employer] Benefit and NRD 02/27/24 and continued stay is not guaranteed with each review. Pt's goal is to return to previous living arrangements with . Pt did state he will be having a valve replacement surgery and is hopeful he can have that done before returning home but if not he feels he can return home and take care of that later. SW will continue to follow for DC planning. Nandini CALVERT
--- NOTE | 2024-02-26 12:23 | NURSING ---
Cartographic Designer Note; Activity Asset: Pasha Monteiro is independent in his choice of daily activities. He will watch tv, read and work on word puzzles. Hs son is to bring his glasses in. He enjoys building his motorcycles, he has many different types. he traveled a lot with the many different jobs he had and enjoys talking about them. Staff will remind him of weekly activities and encourage group activities for extra socialization and respect his right to say no.
[2024-02-26 13:00] VITALS: BP 84/46; PULSE 87; RESP 18; TEMP 36.2; O2SAT 94
[2024-02-26 13:22] VITALS: BP 90/58
--- NOTE | 2024-02-26 14:52 | NURSING ---
Offered covid vaccine, VIS provided. Patient refuses at this time.
[2024-02-26] MEDS: Atorvastatin Calcium 10 MG Tablet 5 MG PO (20:50)
[2024-02-26] MEDS: Doxazosin 1 MG Tablet 2 MG PO (20:50)
[2024-02-27] MEDS: oxyCODONE 5 MG Tablet PO ×5 (01:23→21:02)
[2024-02-27 06:00] VITALS: BMI 36.7
[2024-02-27] MEDS: Acetaminophen 500 MG Tablet 1000 MG PO ×3 (06:37→21:03)
--- NOTE | 2024-02-27 07:19 | NURSING ---
Dressing change to BLE stasis ulcers and LUE skin tear not completed at this time d/t shower scheduled w/ OT at 0900. Updated oncoming nurse.
[2024-02-27] MEDS: Lidocaine 5% Patch 1 PATCH TOPICAL (09:56)
[2024-02-27] MEDS: Juven (unflavored) Packet 1 PACKET PO ×2 (09:56→16:04)
[2024-02-27] MEDS: Petrolatum 33% Tube 1 APPLIC TOPICAL (09:57)
[2024-02-27] MEDS: Umeclidinium Brm/Vilanterol 62.5-25 mcg Inh 1 PUFF INHALATION (09:57)
[2024-02-27] MEDS: Menthol/Lanolin/Calamine/Znox 113 GM Tube 1 APPLIC TOPICAL ×2 (09:57→21:08)
[2024-02-27] MEDS: Senna/Docusate Sodium 1 Tablet 2 TABLET PO ×2 (09:58→21:06)
[2024-02-27] MEDS: Nystatin Powder 15gm Bottle 1 APPLIC TOPICAL ×2 (09:58→21:08)
[2024-02-27] MEDS: Linezolid 600 MG Tablet PO ×2 (09:58→21:05)
[2024-02-27 14:50] VITALS: BP 100/65; PULSE 71; RESP 16; TEMP 35.9; O2SAT 98
[2024-02-27] MEDS: Atorvastatin Calcium 10 MG Tablet 5 MG PO (21:05)
[2024-02-27] MEDS: Doxazosin 1 MG Tablet 2 MG PO (21:05)
[2024-02-28] MEDS: oxyCODONE 5 MG Tablet PO ×6 (01:13→22:01)
[2024-02-28] MEDS: Acetaminophen 500 MG Tablet 1000 MG PO ×3 (05:29→21:00)
[2024-02-28 06:00] VITALS: BMI 36.8
[2024-02-28] MEDS: Linezolid 600 MG Tablet PO ×2 (09:35→21:01)
[2024-02-28] MEDS: Juven (unflavored) Packet 1 PACKET PO ×2 (09:36→17:51)
[2024-02-28] MEDS: Umeclidinium Brm/Vilanterol 62.5-25 mcg Inh 1 PUFF INHALATION (09:36)
[2024-02-28] MEDS: Lidocaine 5% Patch 1 PATCH TOPICAL (09:36)
[2024-02-28] MEDS: Senna/Docusate Sodium 1 Tablet 2 TABLET PO ×2 (09:37→21:01)
[2024-02-28] MEDS: Menthol/Lanolin/Calamine/Znox 113 GM Tube 1 APPLIC TOPICAL ×2 (09:43→21:02)
[2024-02-28] MEDS: Nystatin Powder 15gm Bottle 1 APPLIC TOPICAL ×2 (09:43→21:01)
[2024-02-28] MEDS: Petrolatum 33% Tube 1 APPLIC TOPICAL (09:44)
--- NOTE | 2024-02-28 15:20 | NURSING ---
Son in room and reports patient has appointment with Dr. Musa on 03/06/24 at 1530. Appointment placed on calendar.
--- NOTE | 2024-02-28 15:47 | NURSING ---
Therapy makes this nurse aware that SPO2 dropped to 86% while ambulating and was placed on 1L of oxygen. Back in room on room air and SPO2 WNL.
[2024-02-28 16:00] VITALS: BP 114/61; PULSE 70; RESP 12; TEMP 36.5; O2SAT 98
--- NOTE | 2024-02-28 16:57 | CASEMGMT ---
Social Work IDT met with patient and son for care plan meeting. Discussed pt's progress in PT/OT/ST. ST will be d/cing from service. Pt is making progress. Discussed shoulder pain and pt stated that affects his progress. Educated to [employer] insurance and NRD 03/05/24 with EDC of 03/11/24. Pt understands he will not have heart procedure before he is DC and is OK with this. Pt agreeable to home health care at DC. Pt stated he has used [facility] in past and would like to use again. Discussed DME needs. Pt might need WC. [facility] SW will continue to follow and assist with DC planning. Nandini CALVERT
[2024-02-28] MEDS: Furosemide 40 MG Tablet PO (17:51)
[2024-02-28 19:58] VITALS: RESP 18
[2024-02-28] MEDS: Doxazosin 1 MG Tablet 2 MG PO (21:00)
[2024-02-28] MEDS: Atorvastatin Calcium 10 MG Tablet 5 MG PO (21:02)
[2024-02-28 21:05] VITALS: BP 107/67; PULSE 71
[2024-02-29] MEDS: oxyCODONE 5 MG Tablet PO ×6 (02:36→23:35)
[2024-02-29 05:59] VITALS: BMI 36.1
[2024-02-29 06:03] LABS: International Normalized Ratio 2.9
[2024-02-29] MEDS: Acetaminophen 500 MG Tablet 1000 MG PO ×3 (06:44→21:48)
[2024-02-29 10:35] VITALS: BP 99/59; PULSE 72; RESP 16; TEMP 36.2; O2SAT 94
[2024-02-29] MEDS: Umeclidinium Brm/Vilanterol 62.5-25 mcg Inh 1 PUFF INHALATION (10:37)
[2024-02-29] MEDS: Furosemide 40 MG Tablet PO (10:37)
[2024-02-29] MEDS: Potassium Chloride Oral Tablet 20 MEQ PO (10:37)
[2024-02-29] MEDS: Juven (unflavored) Packet 1 PACKET PO (10:37)
[2024-02-29] MEDS: Lidocaine 5% Patch 1 PATCH TOPICAL (10:38)
[2024-02-29] MEDS: Senna/Docusate Sodium 1 Tablet 2 TABLET PO ×2 (10:38→21:48)
[2024-02-29] MEDS: Linezolid 600 MG Tablet PO ×2 (10:38→21:50)
[2024-02-29] MEDS: Menthol/Lanolin/Calamine/Znox 113 GM Tube 1 APPLIC TOPICAL ×2 (10:41→21:45)
[2024-02-29] MEDS: Nystatin Powder 15gm Bottle 1 APPLIC TOPICAL ×2 (10:41→21:47)
[2024-02-29] MEDS: Petrolatum 33% Tube 1 APPLIC TOPICAL (10:42)
[2024-02-29 20:00] VITALS: PULSE 70; O2SAT 98
[2024-02-29] MEDS: Doxazosin 1 MG Tablet 2 MG PO (21:46)
[2024-02-29] MEDS: Atorvastatin Calcium 10 MG Tablet 5 MG PO (21:47)
[2024-03-01] MEDS: oxyCODONE 5 MG Tablet PO (03:38)
[2024-03-01] MEDS: Acetaminophen 500 MG Tablet 1000 MG PO ×3 (05:25→21:15)
[2024-03-01 05:53] LABS: Absolute Lymphocyte Count 1.02 X10^3/uL (0.83-4.51); Absolute Neutrophil Count 3.5 X10^3/uL (2.0-7.7); Basophil# 0.09 X10^3/uL; Basophil% 1.6 % (0-1); Eosinophil# 0.22 X10^3/uL; Hematocrit 33.2 % (40-54); Hemoglobin 10.2 g/dL (13.0-16.5); Lymphocyte # 1.02 X10^3/ul (0.83-4.51); Lymphocyte % 18.6 % (19-41); Mean Corp Hgb Conc 30.7 g/dL (32-36); Mean Corpuscular Hgb 28.2 pg (27.0-32.0); Mean Corpuscular Volume 91.7 fL (80-94); Mean Platelet Vol. 10.4 fl (6.2-12.0); Monocyte# 0.59 X10^3/uL; Monocyte% 10.8 % (0-10); NRBC Flagged by Analyzer 0 % (0-5); Neutrophil # 3.54 X10^3/uL (2.7-7.7); Neutrophil % 64.6 % (47-70); Platelet Count 249 K/mm3 (150-450); RBC Distribution Width CV 16.9 % (11.6-14.6); RBC Distribution Width SD 56.2 fl (35.1-43.9); Red Blood Count 3.62 M/mm3 (4.6-6.2); White Blood Count 5.5 K/mm3 (4.4-11.0)
[2024-03-01 06:17] LABS: Anion Gap 3 (5-15); BUN 22 mg/dL (7-18); BUN/Creat Ratio 34.9 RATIO (10-20); Chloride 103 mmol/L (98-107); Creatinine, Serum 0.63 mg/dL (0.70-1.30); EST Glomerular Filtration Rate 132 mL/min (>60); Est Glom Filt Rate - Afr Amer 160 mL/min (>60); Estimated Creatinine Clearance 105.66 ml/min; Glucose 93 mg/dL (74-106); Sodium Level 135 mmol/L (136-145)
--- NOTE | 2024-03-01 06:51 | NURSING ---
Written communication left for Dr. Sutton requesting if palliative consult appropriate at this time related to patient continued frequent complaint of 10/10 pain to back/shoulder despite PRN Oxy as ordered. Patient frequently requests PRN Oxy prior to time that med is able to be administered.
[2024-03-01] MEDS: Juven (unflavored) Packet 1 PACKET PO ×2 (08:06→16:58)
[2024-03-01] MEDS: Menthol/Lanolin/Calamine/Znox 113 GM Tube 1 APPLIC TOPICAL ×2 (08:07→21:12)
[2024-03-01] MEDS: Umeclidinium Brm/Vilanterol 62.5-25 mcg Inh 1 PUFF INHALATION (08:07)
[2024-03-01] MEDS: Potassium Chloride Oral Tablet 20 MEQ PO (08:07)
[2024-03-01] MEDS: Lidocaine 5% Patch 1 PATCH TOPICAL (08:08)
[2024-03-01] MEDS: Furosemide 40 MG Tablet PO (08:08)
[2024-03-01] MEDS: Petrolatum 33% Tube 1 APPLIC TOPICAL (08:08)
[2024-03-01] MEDS: Senna/Docusate Sodium 1 Tablet 2 TABLET PO ×2 (08:09→21:14)
[2024-03-01] MEDS: Nystatin Powder 15gm Bottle 1 APPLIC TOPICAL ×2 (08:09→21:12)
[2024-03-01] MEDS: oxyCODONE 5 MG Tablet 10 MG PO ×4 (08:10→21:11)
[2024-03-01] MEDS: Linezolid 600 MG Tablet PO ×2 (08:10→21:16)
--- NOTE | 2024-03-01 08:55 | NURSING ---
Real Estate Asset Manager Note, MDS for 03/01/2024 Complete
--- NOTE | 2024-03-01 12:15 | CASEMGMT ---
Social Work SW met with pt and completed MDS assessments. BIMS PHQ2 0/0 Nandini CALVERT
[2024-03-01 15:59] VITALS: BP 111/63; PULSE 86; RESP 17; TEMP 36.6; O2SAT 92
[2024-03-01] MEDS: Atorvastatin Calcium 10 MG Tablet 5 MG PO (21:13)
[2024-03-01] MEDS: Doxazosin 1 MG Tablet 2 MG PO (21:13)
[2024-03-01 22:00] VITALS: PULSE 90; O2SAT 91
[2024-03-02] MEDS: oxyCODONE 5 MG Tablet 10 MG PO ×6 (01:12→21:46)
[2024-03-02] MEDS: Acetaminophen 500 MG Tablet 1000 MG PO ×3 (05:27→20:06)
[2024-03-02 05:35] VITALS: PULSE 88
[2024-03-02] MEDS: Juven (unflavored) Packet 1 PACKET PO ×2 (09:04→17:46)
[2024-03-02] MEDS: Lidocaine 5% Patch 1 PATCH TOPICAL (09:04)
[2024-03-02] MEDS: Furosemide 40 MG Tablet PO (09:04)
[2024-03-02] MEDS: Umeclidinium Brm/Vilanterol 62.5-25 mcg Inh 1 PUFF INHALATION (09:04)
[2024-03-02] MEDS: Potassium Chloride Oral Tablet 20 MEQ PO (09:04)
[2024-03-02] MEDS: Linezolid 600 MG Tablet PO ×2 (09:05→20:07)
[2024-03-02] MEDS: Senna/Docusate Sodium 1 Tablet 2 TABLET PO ×2 (09:05→20:06)
[2024-03-02] MEDS: Petrolatum 33% Tube 1 APPLIC TOPICAL (09:14)
[2024-03-02] MEDS: Menthol/Lanolin/Calamine/Znox 113 GM Tube 1 APPLIC TOPICAL ×2 (09:15→20:08)
[2024-03-02] MEDS: Nystatin Powder 15gm Bottle 1 APPLIC TOPICAL ×2 (09:15→20:05)
[2024-03-02] MEDS: Tuberculin,Purif.prot.deriv. 50 TU/ML Vial 0.1 ML ID (13:32)
[2024-03-02 15:17] VITALS: BP 84/47; PULSE 86; RESP 17; TEMP 36.6; O2SAT 92
[2024-03-02] MEDS: Atorvastatin Calcium 10 MG Tablet 5 MG PO (20:05)
[2024-03-02] MEDS: Doxazosin 1 MG Tablet 2 MG PO (20:06)
[2024-03-03] MEDS: oxyCODONE 5 MG Tablet 10 MG PO ×5 (02:27→21:50)
[2024-03-03] MEDS: Acetaminophen 500 MG Tablet 1000 MG PO ×3 (05:32→21:55)
[2024-03-03 07:00] VITALS: BMI 36.3
[2024-03-03] MEDS: Juven (unflavored) Packet 1 PACKET PO ×2 (08:03→17:11)
[2024-03-03] MEDS: Linezolid 600 MG Tablet PO ×2 (08:03→21:56)
[2024-03-03] MEDS: Senna/Docusate Sodium 1 Tablet 2 TABLET PO ×2 (08:03→21:54)
[2024-03-03] MEDS: Lidocaine 5% Patch 1 PATCH TOPICAL (08:04)
[2024-03-03] MEDS: Potassium Chloride Oral Tablet 20 MEQ PO (08:04)
[2024-03-03] MEDS: Nystatin Powder 15gm Bottle 1 APPLIC TOPICAL ×2 (08:05→21:52)
[2024-03-03] MEDS: Menthol/Lanolin/Calamine/Znox 113 GM Tube 1 APPLIC TOPICAL ×2 (08:06→21:52)
[2024-03-03] MEDS: Umeclidinium Brm/Vilanterol 62.5-25 mcg Inh 1 PUFF INHALATION (10:29)
[2024-03-03] MEDS: Furosemide 40 MG Tablet PO (10:30)
[2024-03-03 10:34] VITALS: BP 104/50; PULSE 74
[2024-03-03 14:41] VITALS: BP 93/57; PULSE 93; RESP 16; TEMP 36.2; O2SAT 98
[2024-03-03 17:14] VITALS: BP 111/62; PULSE 78
[2024-03-03 20:00] VITALS: PULSE 92; O2SAT 91
[2024-03-03] MEDS: Petrolatum 33% Tube 1 APPLIC TOPICAL (20:03)
[2024-03-03 21:47] VITALS: BP 106/69; PULSE 92
[2024-03-03] MEDS: Doxazosin 1 MG Tablet 2 MG PO (21:53)
[2024-03-03] MEDS: Atorvastatin Calcium 10 MG Tablet 5 MG PO (21:54)
[2024-03-04] MEDS: oxyCODONE 5 MG Tablet 10 MG PO ×5 (02:06→22:11)
[2024-03-04 02:56] VITALS: PULSE 84; O2SAT 93
[2024-03-04] MEDS: Acetaminophen 500 MG Tablet 1000 MG PO ×3 (05:30→22:10)
[2024-03-04 06:00] VITALS: BMI 36.3
[2024-03-04 06:30] LABS: International Normalized Ratio 3.9; Prothrombin Time (Protime)PT. 37.6 SECONDS (11.7-14.9)
[2024-03-04] MEDS: Potassium Chloride Oral Tablet 20 MEQ PO (08:51)
[2024-03-04] MEDS: Umeclidinium Brm/Vilanterol 62.5-25 mcg Inh 1 PUFF INHALATION (08:51)
[2024-03-04] MEDS: Lidocaine 5% Patch 1 PATCH TOPICAL (08:51)
[2024-03-04] MEDS: Juven (unflavored) Packet 1 PACKET PO ×2 (08:51→17:20)
[2024-03-04] MEDS: Linezolid 600 MG Tablet PO ×2 (08:52→22:10)
[2024-03-04] MEDS: Senna/Docusate Sodium 1 Tablet 2 TABLET PO ×2 (08:52→22:11)
[2024-03-04] MEDS: Petrolatum 33% Tube 1 APPLIC TOPICAL (08:58)
[2024-03-04] MEDS: Nystatin Powder 15gm Bottle 1 APPLIC TOPICAL ×2 (08:59→22:09)
[2024-03-04 09:24] VITALS: BP 100/50; PULSE 100; RESP 18; TEMP 36.5; O2SAT 92
[2024-03-04] MEDS: Menthol/Lanolin/Calamine/Znox 113 GM Tube 1 APPLIC TOPICAL ×2 (09:26→22:09)
[2024-03-04] MEDS: Warfarin 0.5 MG Tablet PO (17:19)
[2024-03-04] MEDS: Atorvastatin Calcium 10 MG Tablet 5 MG PO (22:11)
[2024-03-04] MEDS: Doxazosin 1 MG Tablet 2 MG PO (22:12)
[2024-03-05] MEDS: oxyCODONE 5 MG Tablet 10 MG PO ×4 (04:22→21:01)
[2024-03-05 04:55] VITALS: BMI 36.4
--- NOTE | 2024-03-05 05:32 | NURSING ---
Respiratory notified of need for overnight pulse-ox HS of 03/05/24 due to need to clarify if study should be done at this time or closer to discharge with community arts officer. Respiratory therapist states will communicate with oncoming staff of need for study to be completed tonight to see if 3L O2 is necessary for CPAP.
[2024-03-05] MEDS: Acetaminophen 500 MG Tablet 1000 MG PO ×3 (05:54→21:02)
[2024-03-05] MEDS: Juven (unflavored) Packet 1 PACKET PO ×2 (08:57→16:28)
[2024-03-05] MEDS: Lidocaine 5% Patch 1 PATCH TOPICAL (08:57)
[2024-03-05] MEDS: Senna/Docusate Sodium 1 Tablet 2 TABLET PO ×2 (08:57→21:02)
[2024-03-05] MEDS: Potassium Chloride Oral Tablet 20 MEQ PO (08:57)
[2024-03-05] MEDS: Linezolid 600 MG Tablet PO ×2 (08:57→21:03)
[2024-03-05] MEDS: Umeclidinium Brm/Vilanterol 62.5-25 mcg Inh 1 PUFF INHALATION (09:02)
[2024-03-05] MEDS: Menthol/Lanolin/Calamine/Znox 113 GM Tube 1 APPLIC TOPICAL ×2 (09:03→21:04)
[2024-03-05] MEDS: Nystatin Powder 15gm Bottle 1 APPLIC TOPICAL ×2 (09:03→21:04)
--- NOTE | 2024-03-05 09:11 | NURSING ---
Addendum entered by Stephanie Merida 03/05/24 09:35: This nurse went to check on pt and pt was resting comfortably with eyes closed and CPAP on. Original Note: Pt asking for pain medication at this time and would like PRN Oxycodone.Pt BP 75/42 Pulse 91 rechecked in other arm and was 93/52. Pt was sitting comfortably in chair no signs of pain. Adv pt that I don't feel comfortable given 10mg of Oxycodone d/t his low bp. Educated him that Oxycodone and further decrease his bp and cause a high risk of falls. Pt refused therapy at that time. Asked Pt how often he was taking Oxycodone at home pt stated was taking 10mg TID.After educated pt on risk of Oxycodone with a low BP he stated Therapy can come back in and work with me then. Will update Dr. Sutton and recheck BP.
[2024-03-05 09:58] VITALS: BMI 36.7
[2024-03-05 16:00] VITALS: BP 96/60; PULSE 68; RESP 16; TEMP 36.5; O2SAT 92
[2024-03-05] MEDS: Warfarin 0.5 MG Tablet PO (16:27)
[2024-03-05] MEDS: Petrolatum 33% Tube 1 APPLIC TOPICAL (16:28)
[2024-03-05 18:45] VITALS: PULSE 101; O2SAT 93
[2024-03-05] MEDS: Arthritis Pain Compound 60 CLICK TUBE TOPICAL (21:01)
[2024-03-05] MEDS: Doxazosin 1 MG Tablet 2 MG PO (21:03)
[2024-03-05] MEDS: Atorvastatin Calcium 10 MG Tablet 5 MG PO (21:03)
[2024-03-06] MEDS: oxyCODONE 5 MG Tablet 10 MG PO (04:13)
[2024-03-06] MEDS: Acetaminophen 500 MG Tablet 1000 MG PO ×3 (05:02→21:52)
--- NOTE | 2024-03-06 09:42 | CASEMGMT ---
Social Work SW received [employer] Notice of Medicare Non-Coverage (NOMNC) effective date end of your current snf service coverage on 03/09/2024; anticipated discharge 03/10/2024. SW informed patient of NOMNC end of service date 03/09/24. Patient was informed that he has the right to appeal [facility] determination to end services through [employer] [phone]. Patient declined need to appeal discharge at this time. Patient infromed SW that he is agreeable to discharge on 03/10/2024. SW inquired about home health care services. Patient previously notified SW that he would be interested in home health care services via preferred provider [facility]. Patient informed SW that he would like to obtain PT/OT/SN services in home for a few weeks. SW will submit referral to preferred agency. Patient informed SW that his son will provide transportation support at discharge. SW inquired about therapy training for transfer in and out of car. Patient declined transfer training stating my son does well assisting with transfer support. SW inquired about DME for wheelchair or other DME for safe discharge. Patient informed SW that he does not believe he requires wheelchair. SW will discuss DME recommendation with therapy services. Patient was provided copy of NOMNC and copy placed in medical chart. Discharge: Home with Home health PT/OT/SN ALEXA Claudio
[2024-03-06 09:49] VITALS: BP 113/74; PULSE 83; RESP 16; TEMP 36.6; O2SAT 94
[2024-03-06] MEDS: Umeclidinium Brm/Vilanterol 62.5-25 mcg Inh 1 PUFF INHALATION (09:50)
[2024-03-06] MEDS: oxyCODONE 5 MG Tablet PO ×4 (09:50→23:09)
[2024-03-06] MEDS: Juven (unflavored) Packet 1 PACKET PO ×2 (09:50→16:52)
[2024-03-06] MEDS: Menthol/Lanolin/Calamine/Znox 113 GM Tube 1 APPLIC TOPICAL ×2 (09:51→22:00)
[2024-03-06] MEDS: Petrolatum 33% Tube 1 APPLIC TOPICAL (09:51)
[2024-03-06] MEDS: Arthritis Pain Compound 60 CLICK TUBE TOPICAL ×2 (09:51→21:51)
[2024-03-06] MEDS: Nystatin Powder 15gm Bottle 1 APPLIC TOPICAL ×2 (09:52→22:00)
[2024-03-06] MEDS: Linezolid 600 MG Tablet PO (09:53)
[2024-03-06] MEDS: Senna/Docusate Sodium 1 Tablet 2 TABLET PO ×2 (09:53→21:51)
[2024-03-06] MEDS: Potassium Chloride Oral Tablet 20 MEQ PO (09:54)
[2024-03-06 12:35] VITALS: PULSE 85; RESP 18; O2SAT 96
--- NOTE | 2024-03-06 13:24 | MDS.RN ---
Information for the MDS was obtained from review of the clinical record, interview of resident, staff, and direct observation of resident?s care.
[2024-03-06 14:20] VITALS: BMI 37.0
--- NOTE | 2024-03-06 15:08 | NURSING ---
pt off unit to Dr Musa office
--- NOTE | 2024-03-06 16:38 | NURSING ---
returned from [facility] office, new order to continue current pain medication- no changes at this time. f/u in one month out patient
[2024-03-06] MEDS: Warfarin 0.5 MG Tablet PO (16:52)
--- NOTE | 2024-03-06 18:49 | DS.PCM_ITS ---
Providers Date of Admission: 02/23/24 Primary Care Physician: [facility] Consultations 02/27/24 07:59 Consult: Onc/Wound/cafe cook Routine Comment: Reason for Consult:: Stasis ulcer- LLE; skin tear to LUE Reason For Visit: SYNCOPE,ADULT FFT Diagnosis Discharge Diagnosis (1) Debility: Status: Acute Code(s): R53.81 - Other malaise (2) Syncope: Status: Resolved Code(s): R55 - Syncope and collapse Qualifiers: Syncope type: unspecified Qualified Code(s): R55 - Syncope and collapse (3) Sepsis: Status: Ruled-out Code(s): A41.9 - Sepsis, unspecified organism (4) Staphylococcus aureus bacteremia: Status: Acute Code(s): R78.81 - Bacteremia; B95.61 - Methicillin susceptible Staphylococcus aureus infection as the cause of diseases classified elsewhere (5) Orthostatic hypotension: Status: Acute Code(s): I95.1 - Orthostatic hypotension (6) Urinary retention: Status: Acute Code(s): R33.9 - Retention of urine, unspecified (7) Atrial fibrillation: Status: Acute Code(s): I48.91 - Unspecified atrial fibrillation (8) Critical aortic valve stenosis: Status: Acute Code(s): I35.0 - Nonrheumatic aortic (valve) stenosis (9) COPD (chronic obstructive pulmonary disease): Status: Chronic Code(s): J44.9 - Chronic obstructive pulmonary disease, unspecified (10) Hypertension: Status: Chronic Code(s): I10 - Essential (primary) hypertension (11) HLD (hyperlipidemia): Status: Acute Code(s): E78.5 - Hyperlipidemia, unspecified (12) BPH (benign prostatic hyperplasia): Status: Acute Code(s): N40.0 - Benign prostatic hyperplasia without lower urinary tract symptoms (13) Hypokalemia: Status: Acute Code(s): E87.6 - Hypokalemia (14) Chronic heart failure with preserved ejection fraction (HFpEF): Status: Acute Code(s): I50.32 - Chronic diastolic (congestive) heart failure Plan 73 year old male with below past medical history hospitalized for syncope 2/2 orthostasis, critical aortic stenosis, complicated by sepsis, s. aureus bacteremia, endocarditis ruled out, admitted to TCU with debility, here for rehabilitation, strengthening, prior to discharge home with family. * Debility - PT/OT. * Pain - Tylenol 1000mg q8, Oxycodone 5mg q6 prn pain (4-10), Lidoderm 1 patch td daily. * Bowel - senna/colace 2 tablets bid, Magnesium citrate 300ml daily prn. * Adult immunization - Administer pneumonia vaccine, covid vaccine, flu vaccine as appropriate. * DVT prophylaxis - on warfarin. * COPD - Anoro 1 puff daily, Albuterol 1 puff q4h prn. * Hyperlipidemia - Atorvastatin 5mg qhs. * BPH - Doxazosin 2mg qhs. * S. Aureus bacteremia - Linezolid 600mg q12 thru 03/06/2024. * Atrial fibrillation - Warfarin 5mg daily, monitor inr. * Critical aortic stenosis - Follow up with Dr. Obrien at discharge to consider TAVR versus open AVR. Medications at Discharge Home Medications simvastatin 10 mg tablet 10 mg PO QHS cholesterol 09/06/22 terazosin 2 mg capsule 2 mg PO QHS prostate 09/06/22 lidocaine 5 % topical patch 1 patch topical DAILY pain #15 ea 09/08/22 albuterol sulfate 90 mcg/actuation aerosol inhaler 1 puff inhalation Q4H PRN SOB 02/08/24 tiotropium 2.5 mcg-olodaterol 2.5 mcg/actuation mist for inhalation (Stiolto Respimat) 1 puff inhalation BID breathing 02/08/24 oxycodone 5 mg tablet 5 mg PO Q6H PRN PRN Pain Score 4-10 7 days #28 tabs 02/16/24 Arthritis Pain Compound 0 click topical BID 30 days #120 CLICKS 03/06/24 acetaminophen 500 mg tablet 1,000 mg (2 x 500 mg) PO Q8 #0 tabs 03/06/24 arginine 7 gram-glutam 7 gram-CaHMB 1.5 [id number]-min oral pwd pkt (Cristhian (with collagen)) 1 packet PO BIDCM 30 days #60 ea 03/06/24 potassium chloride 20 mEq tablet,extended release(part/cryst) 20 meq PO DAILYCM 30 days #30 tabs 03/06/24 sennosides 8.6 mg-docusate sodium 50 mg tablet (Stool Softener-Stimulant Laxative) 2 tab PO BID 30 days #120 tabs 03/06/24 warfarin 1 mg tablet (Jantoven) 0.5 mg (1/2 x 1 mg) PO DINNER 30 days #15 tabs 03/06/24 warfarin 4 mg tablet (Jantoven) 4 mg PO DINNER 30 days #30 tabs 03/06/24 Hospital Course Operations None Procedures None and - (Transesophageal echo.) Summary of Care Provided Minutes Spent on Discharge: 35 Hospital Course: 73 year old male with below past medical history hospitalized for syncope 2/2 orthostasis, critical aortic stenosis, complicated by sepsis, s. aureus bacteremia, endocarditis ruled out, admitted to TCU with debility, here for rehabilitation, strengthening, prior to discharge home with family. Discharge home with 03/10/2024, [facility] PT/OT/SN. Physical Exam Const alert General Appearance: cooperative HEENT normocephalic Eyes PERRL and EOMs intact bilaterally Neck supple, no JVD and no carotid bruits Resp normal respiratory effort, normal air movement and clear to auscultation bilaterally Cardio regular rate and regular rhythm Heart Sounds: murmur systolic III/ blowing left sternal border to carotid arteries GI normal to inspection, nondistended, normoactive bowel sounds, non-tender and n on-distended Extremity normal capillary refill General Extremity: Negative for edema Skin no rashes or lesions noted General Skin Exam: no breakdown Psych affect normal Appearance: appropriate Weight / BMI Weight Weight: 119.93 kg Body Mass Index (BMI) 37.0 ABG / Lab / Microbiology Data 03/01/24 05:29 03/01/24 05:29 D/C Instructions Discharge Diet: No restrictions Discharge Activity: Return to Normal Activity, May Shower and Use Walker Weight Bearing Status: Weight bearing as tolerated Call your doctor if you observe: Fever of 101 or Higher, Inability to urinate, Inability to have a bowel movement, Shortness of breath, Dizziness, Fainting spells, Swelling in the ankles, Chest pain and Uncontrolled pain Additional Instructions: Discharge home with 03/10/2024, [facility] PT/OT/SN. Please Follow Up With: Rinku Ricci INTERMEDIATE DESIGNER, INTERMEDIATE DESIGNER-C When: 2 weeks. Meaningful Use Info Meaningful Use Meaningful Use Diagnoses (Choose all that apply): None applicable Ischemic Stroke Statin Dosing Therapy Reference: STATIN DOSE THERAPY REFERENCE: * Patients > 75 years receive moderate or high dose statin therapy. * Patients 75 years or YOUNGER should receive HIGH intensity statin dose unless contraindicated. You will be required to document reason for non-treatment if statin daily dose does not meet guidelines. HIGH DOSE STATIN THERAPY DAILY Atorvastatin > than or = to 40 mg Rosuvastatin > than or = to 20 mg Amlodipine + Atorvastatin > than or = to 2.5/40 mg Ezetimibe + Simvastatin 10/80 mg Simvastatin 80mg Discharge Plan Admission Admit Date/Time: 02/23/24 15:45 Primary Reason for Your Visit: Debility. Attending Provider: Freedom Sutton Chi Primary Care Provider: [facility],[place] Instructions Additional Instructions / Restrictions: Blood cultures to be drawn on 03/20/24, 2 weeks after antibiotics completed. Discharge home with 03/10/2024, [facility] PT/OT/SN. Discharge Orders/Prescriptions Prescriptions: New acetaminophen 500 mg Tablet 1,000 mg PO Q8 Qty: 0 0RF Arthritis Pain Compound 0 click topical BID 30 Days Qty: 120 0RF sennosides-docusate sodium [Stool Softener-Stimulant Laxat] 8.6-50 mg Tablet 2 tab PO BID 30 Days Qty: 120 0RF potassium chloride 20 mEq Tablet,Er Particles/Crystals 20 meq PO DAILYCM 30 Days Qty: 30 0RF Cristhian (with collagen) 7-7-1.5 gram Powder In Packet 1 packet PO BIDCM 30 Days Qty: 60 0RF warfarin [Jantoven] 4 mg Tablet 4 mg PO DINNER 30 Days Qty: 30 0RF warfarin [Jantoven] 1 mg Tablet 0.5 mg PO DINNER 30 Days Qty: 15 0RF Continued simvastatin 10 mg Tablet 10 mg PO QHS terazosin 2 mg Capsule 2 mg PO QHS lidocaine 5 % Adhesive Patch,Medicated 1 patch topical DAILY Qty: 15 0RF Protocol: *Topical Application Instructions APPLICATION INSTRUCTIONS: To the painful area and back Stiolto Respimat 2.5-2.5 mcg/actuation mist 1 puff inhalation BID albuterol sulfate 90 mcg/actuation HFA aerosol inhaler 1 puff inhalation Q4H PRN (Reason: SOB) oxycodone 5 mg Tablet 5 mg PO Q6H PRN PRN (Reason: Pain Score 4-10) 7 Days Qty: 28 0RF Discontinued warfarin 5 mg Tablet 5 mg PO DAILY Hold Instructions: Until instructed to reinitiate after follow-up INR acetaminophen 500 mg Tablet 1,000 mg PO Q8 30 Days Qty: 180 0RF Rx Instructions: Do not exceed 1000 mg 3 times a day oxycodone 10 mg tablet 10 mg PO TID Hold Instructions: Unless needed linezolid 600 mg tablet 600 mg PO Q12H 12 Days Qty: 24 0RF Referrals / Follow Up: Angel Musa MD [Med Staff - Active Staff] - (follow up 1 month from 03/06/24) Freedom Sutton Chi, MD [Med Staff - Active Staff] - Within 1 Week (New Patient Appointment/TCM appointment.) Disposition Disposition (needs filled in before D/C Order can be placed): Home Health Service
[2024-03-06] MEDS: Atorvastatin Calcium 10 MG Tablet 5 MG PO (21:51)
[2024-03-06] MEDS: Doxazosin 1 MG Tablet 2 MG PO (21:52)
[2024-03-07] MEDS: oxyCODONE 5 MG Tablet PO ×4 (03:15→22:12)
[2024-03-07 05:50] LABS: International Normalized Ratio 3.2; Prothrombin Time (Protime)PT. 32.8 SECONDS (11.7-14.9)
[2024-03-07] MEDS: Acetaminophen 500 MG Tablet 1000 MG PO ×3 (06:27→22:04)
[2024-03-07 08:36] VITALS: BP 98/57; PULSE 93; RESP 18; TEMP 36.4; O2SAT 96
[2024-03-07] MEDS: Senna/Docusate Sodium 1 Tablet 2 TABLET PO ×2 (08:39→22:01)
[2024-03-07] MEDS: Juven (unflavored) Packet 1 PACKET PO ×2 (08:39→17:16)
[2024-03-07] MEDS: Umeclidinium Brm/Vilanterol 62.5-25 mcg Inh 1 PUFF INHALATION (08:39)
[2024-03-07] MEDS: Arthritis Pain Compound 60 CLICK TUBE TOPICAL ×2 (08:39→21:59)
[2024-03-07] MEDS: Menthol/Lanolin/Calamine/Znox 113 GM Tube 1 APPLIC TOPICAL ×2 (08:40→21:57)
[2024-03-07] MEDS: Petrolatum 33% Tube 1 APPLIC TOPICAL (08:40)
[2024-03-07] MEDS: Nystatin Powder 15gm Bottle 1 APPLIC TOPICAL ×2 (08:40→21:57)
[2024-03-07] MEDS: Potassium Chloride Oral Tablet 20 MEQ PO (08:40)
--- NOTE | 2024-03-07 15:10 | CASEMGMT ---
Social Work SW received call from [facility] Radha Sullivan informing SW that the patient will be accept for home health care services. Start of care will take place on 03/12/2024. SHEILA informed patient that SOC will be delayed post discharge. Patient is agreeable to to transition home as planned for 03/10/2024 with start of care date for [facility] health care on 03/12/2024. Patient's son will provide transportation to home. Discharge: 03/10/2024 to home with [facility] PT/OT/SN. ALEXA Claudio
[2024-03-07] MEDS: Warfarin 0.5 MG Tablet PO (17:16)
[2024-03-07 22:00] VITALS: BP 101/60; PULSE 83
[2024-03-07] MEDS: Doxazosin 1 MG Tablet 2 MG PO (22:00)
[2024-03-07] MEDS: Atorvastatin Calcium 10 MG Tablet 5 MG PO (22:01)
[2024-03-08] MEDS: oxyCODONE 5 MG Tablet PO ×5 (02:53→22:59)
[2024-03-08] MEDS: Petrolatum 33% Tube 1 APPLIC TOPICAL (03:14)
[2024-03-08 03:49] VITALS: PULSE 84; O2SAT 92
[2024-03-08] MEDS: Acetaminophen 500 MG Tablet 1000 MG PO ×3 (05:02→21:52)
[2024-03-08 05:51] LABS: Absolute Lymphocyte Count 0.91 X10^3/uL (0.83-4.51); Absolute Neutrophil Count 2.5 X10^3/uL (2.0-7.7); Basophil# 0.09 X10^3/uL; Basophil% 2.2 % (0-1); Eosinophil# 0.17 X10^3/uL; Eosinophils% 4.1 % (0-5); Hematocrit 30.2 % (40-54); Hemoglobin 9.4 g/dL (13.0-16.5); Lymphocyte # 0.91 X10^3/ul (0.83-4.51); Mean Corp Hgb Conc 31.1 g/dL (32-36); Mean Corpuscular Volume 89.9 fL (80-94); Monocyte# 0.42 X10^3/uL; Monocyte% 10.1 % (0-10); NRBC Flagged by Analyzer 0 % (0-5); Neutrophil # 2.54 X10^3/uL (2.7-7.7); Neutrophil % 61.4 % (47-70); POSITIVE MORPHOLOGY YES; Platelet Count 117 K/mm3 (150-450); RBC Distribution Width CV 16.6 % (11.6-14.6); RBC Distribution Width SD 54.7 fl (35.1-43.9); Red Blood Count 3.36 M/mm3 (4.6-6.2); White Blood Count 4.1 K/mm3 (4.4-11.0)
[2024-03-08 06:31] LABS: Anion Gap 3 (5-15); BUN 27 mg/dL (7-18); BUN/Creat Ratio 41.8 RATIO (10-20); Calcium,Total 8.7 mg/dL (8.5-10.1); Chloride 103 mmol/L (98-107); Creatinine, Serum 0.65 mg/dL (0.70-1.30); EST Glomerular Filtration Rate 128 mL/min (>60); Est Glom Filt Rate - Afr Amer 155 mL/min (>60); Estimated Creatinine Clearance 106.74 ml/min; Glucose 87 mg/dL (74-106); Potassium 4.3 mmol/L (3.5-5.1); Sodium Level 135 mmol/L (136-145)
[2024-03-08 07:24] LABS: Differential Indicated SCAN CRITERIA MET
[2024-03-08 07:25] LABS: Differential Comment SCANNED
[2024-03-08 08:17] VITALS: BP 96/61; PULSE 95; RESP 17; TEMP 36.2; O2SAT 94
[2024-03-08] MEDS: Umeclidinium Brm/Vilanterol 62.5-25 mcg Inh 1 PUFF INHALATION (08:24)
[2024-03-08] MEDS: Potassium Chloride Oral Tablet 20 MEQ PO (08:24)
[2024-03-08] MEDS: Arthritis Pain Compound 60 CLICK TUBE TOPICAL ×2 (08:24→21:47)
[2024-03-08] MEDS: Nystatin Powder 15gm Bottle 1 APPLIC TOPICAL ×2 (08:25→21:48)
[2024-03-08] MEDS: Menthol/Lanolin/Calamine/Znox 113 GM Tube 1 APPLIC TOPICAL ×2 (08:25→21:47)
[2024-03-08] MEDS: Senna/Docusate Sodium 1 Tablet 2 TABLET PO ×2 (08:26→21:52)
--- NOTE | 2024-03-08 12:18 | MDS.RN ---
Pain interview for MDS complete.
--- NOTE | 2024-03-08 16:44 | CASEMGMT ---
Social Work SW met with patient at bedside to complete MDS. Patient complete BIM () and PHQ-2 (11/13) ALEXA Claudio
[2024-03-08] MEDS: Warfarin 0.5 MG Tablet PO (17:16)
[2024-03-08] MEDS: Atorvastatin Calcium 10 MG Tablet 5 MG PO (21:50)
[2024-03-08] MEDS: Doxazosin 1 MG Tablet 2 MG PO (21:51)
[2024-03-08 22:00] VITALS: BP 109/61; PULSE 78
[2024-03-09] MEDS: oxyCODONE 5 MG Tablet PO ×5 (03:34→21:15)
[2024-03-09] MEDS: Acetaminophen 500 MG Tablet 1000 MG PO ×3 (05:01→20:21)
[2024-03-09 06:00] VITALS: BMI 37.1
[2024-03-09 06:50] LABS: Hematocrit 29.6 % (40-54); Hemoglobin 9.3 g/dL (13.0-16.5)
[2024-03-09] MEDS: Juven (unflavored) Packet 1 PACKET PO (08:41)
[2024-03-09] MEDS: Lidocaine 5% Patch 1 PATCH TOPICAL (08:41)
[2024-03-09] MEDS: Umeclidinium Brm/Vilanterol 62.5-25 mcg Inh 1 PUFF INHALATION (08:42)
[2024-03-09] MEDS: Senna/Docusate Sodium 1 Tablet 2 TABLET PO ×2 (08:42→20:20)
[2024-03-09] MEDS: Potassium Chloride Oral Tablet 20 MEQ PO (08:42)
[2024-03-09] MEDS: Arthritis Pain Compound 60 CLICK TUBE TOPICAL ×2 (08:44→20:17)
[2024-03-09] MEDS: Menthol/Lanolin/Calamine/Znox 113 GM Tube 1 APPLIC TOPICAL ×2 (08:45→20:17)
[2024-03-09] MEDS: Petrolatum 33% Tube 1 APPLIC TOPICAL (08:45)
[2024-03-09] MEDS: Nystatin Powder 15gm Bottle 1 APPLIC TOPICAL ×2 (08:45→20:17)
[2024-03-09 16:00] VITALS: BP 111/51; PULSE 84; RESP 14; TEMP 36.9; O2SAT 94
[2024-03-09] MEDS: Warfarin 0.5 MG Tablet PO (16:45)
[2024-03-09] MEDS: Atorvastatin Calcium 10 MG Tablet 5 MG PO (20:22)
[2024-03-09] MEDS: Doxazosin 1 MG Tablet 2 MG PO (20:23)
[2024-03-09 20:30] VITALS: BP 106/71; PULSE 76
[2024-03-10] MEDS: oxyCODONE 5 MG Tablet PO ×2 (01:48→06:29)
[2024-03-10 06:00] VITALS: BMI 36.7
[2024-03-10] MEDS: Petrolatum 33% Tube 1 APPLIC TOPICAL (06:30)
[2024-03-10] MEDS: Acetaminophen 500 MG Tablet 1000 MG PO (06:32)
[2024-03-10 08:04] VITALS: BP 102/58; PULSE 85; RESP 16; TEMP 36.9; O2SAT 94
[2024-03-10] MEDS: Potassium Chloride Oral Tablet 20 MEQ PO (08:08)
[2024-03-10] MEDS: Arthritis Pain Compound 60 CLICK TUBE TOPICAL (08:16)
[2024-03-10] MEDS: Umeclidinium Brm/Vilanterol 62.5-25 mcg Inh 1 PUFF INHALATION (08:16)
[2024-03-10] MEDS: Menthol/Lanolin/Calamine/Znox 113 GM Tube 1 APPLIC TOPICAL (08:17)
[2024-03-10] MEDS: Nystatin Powder 15gm Bottle 1 APPLIC TOPICAL (08:18)
[2024-03-10] MEDS: Senna/Docusate Sodium 1 Tablet 2 TABLET PO (08:18)
== END 2024-03-10 11:00 | disposition home health service (06) | DRG 312 ==
PROVIDERS: Admitting Provider Family Medicine Geriatric Medicine; Visit Provider Family Medicine Geriatric Medicine
DX: I95.1 Orthostatic hypotension (principal); R78.81 Bacteremia; I48.11 Longstanding persistent atrial fibrillation; L97.929 Non-pressure chronic ulcer of unspecified part of left lower leg with unspecified severity; I50.32 Chronic diastolic (congestive) heart failure; I11.0 Hypertensive heart disease with heart failure; J44.9 Chronic obstructive pulmonary disease, unspecified; I35.0 Nonrheumatic aortic (valve) stenosis; E78.5 Hyperlipidemia, unspecified; E87.6 Hypokalemia; G47.33 Obstructive sleep apnea (adult) (pediatric); S41.112A Laceration without foreign body of left upper arm, initial encounter; Z79.01 Long term (current) use of 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s; Z87.891 Personal history of nicotine dependence; G89.4 Chronic pain syndrome; N40.1 Benign prostatic hyperplasia with lower urinary tract symptoms; R33.8 Other retention of urine; Z79.899 Other long term (current) drug therapy; B02.9 Zoster without complications; B95.61 Methicillin susceptible Staphylococcus aureus infection as the cause of diseases classified elsewhere; X58.XXXA Exposure to other specified factors, initial encounter
CPT/HCPCS: 36415; 73030; 80048; 85014; 85018; 85025; 85610; 92526; 92610; 94762; 97110; 97116; 97162; 97166; 97530; 97535

== ENCOUNTER → 2024-03-13 | Outpatient (CLI) | payer MEDICARE, SELFPAY ==
[2024-03-13 17:43] LABS: Absolute Lymphocyte Count 1.05 X10^3/uL (0.83-4.51); Absolute Neutrophil Count 3.4 X10^3/uL (2.0-7.7); Basophil# 0.07 X10^3/uL; Basophil% 1.2 % (0-1); Eosinophil# 0.19 X10^3/uL; Eosinophils% 3.3 % (0-5); Hematocrit 27.5 % (40-54); Hemoglobin 8.7 g/dL (13.0-16.5); Lymphocyte # 1.05 X10^3/ul (0.83-4.51); Mean Corp Hgb Conc 31.6 g/dL (32-36); Mean Corpuscular Hgb 28.8 pg (27.0-32.0); Mean Corpuscular Volume 91.1 fL (80-94); Mean Platelet Vol. 11.2 fl (6.2-12.0); Monocyte# 1.12 X10^3/uL; Monocyte% 19.2 % (0-10); NRBC Flagged by Analyzer 0 % (0-5); Neutrophil # 3.39 X10^3/uL (2.7-7.7); Platelet Count 120 K/mm3 (150-450); RBC Distribution Width CV 16.7 % (11.6-14.6); RBC Distribution Width SD 55.2 fl (35.1-43.9); Red Blood Count 3.02 M/mm3 (4.6-6.2); White Blood Count 5.8 K/mm3 (4.4-11.0)
[2024-03-13 18:00] LABS: Prothrombin Time (Protime)PT. 31.2 SECONDS (11.7-14.9)
[2024-03-13 18:10] LABS: ALB/GLOB Ratio 0.6 RATIO (0.9-2.4); AST(SGOT) 27 U/L (15-37); Alanine Aminotransfer ALT/SGPT 23 U/L (16-61); Albumin, Serum 2.8 g/dL (3.2-5.0); Alkaline Phosphatase 179 U/L (45-117); Anion Gap 4 (5-15); BUN 19 mg/dL (7-18); BUN/Creat Ratio 25.5 RATIO (10-20); Calcium,Total 9.1 mg/dL (8.5-10.1); Chloride 105 mmol/L (98-107); Cholesterol 77 mg/dL (200); Creatinine, Serum 0.74 mg/dL (0.70-1.30); EST Glomerular Filtration Rate 109 mL/min (>60); Est Glom Filt Rate - Afr Amer 132 mL/min (>60); Globulin 4.4 g/dL (2.2-4.2); Glucose 108 mg/dL (74-106); High Density Lipoprotein 55 mg/dL; Potassium 4.1 mmol/L (3.5-5.1); Protein, Total 7.2 g/dL (6.4-8.2); Sodium Level 137 mmol/L (136-145); Thyroid Stim Hormone (TSH) 1.89 uIU/mL (0.358-3.74); Triglycerides 43 mg/dL; Very Low Density Lipoprotein 9 mg/dL (5-40)
[2024-03-13 18:37] LABS: Hepatitis C Antibody Non-Reactive (Nonreactive); Vitamin D,25 Hydroxy 71.5 ng/mL
== END | disposition home or self-care (01) ==
LOC: POLAB3 16:49
PROVIDERS: PCP Family Medicine Geriatric Medicine; Visit Provider Family Medicine Geriatric Medicine
DX: E78.5 Hyperlipidemia, unspecified (principal); I48.19 Other persistent atrial fibrillation; I10 Essential (primary) hypertension; I35.0 Nonrheumatic aortic (valve) stenosis; E55.9 Vitamin D deficiency, unspecified
CPT/HCPCS: 36415; 80053; 80061; 82306; 84443; 85025; 85610; 86803

== ENCOUNTER → 2024-03-18 | Outpatient (CLI) | payer MEDICARE, SELFPAY ==
[2024-03-18 17:23] LABS: Anion Gap 4 (5-15); BUN 14 mg/dL (7-18); BUN/Creat Ratio 22.7 RATIO (10-20); Calcium,Total 8.9 mg/dL (8.5-10.1); Chloride 105 mmol/L (98-107); Creatinine, Serum 0.62 mg/dL (0.70-1.30); EST Glomerular Filtration Rate 136 mL/min (>60); Est Glom Filt Rate - Afr Amer 164 mL/min (>60); Glucose 99 mg/dL (74-106); Potassium 3.7 mmol/L (3.5-5.1); Sodium Level 139 mmol/L (136-145)
== END | disposition home or self-care (01) ==
LOC: LAB 16:30
PROVIDERS: PCP Family Medicine Geriatric Medicine; Referring Provider Family Medicine Geriatric Medicine; Visit Provider Family Medicine Geriatric Medicine
DX: N40.0 Benign prostatic hyperplasia without lower urinary tract symptoms (principal)
CPT/HCPCS: 36415; 80048

== ENCOUNTER → 2024-03-21 | Outpatient (CLI) | payer MEDICARE, SELFPAY | END | disposition home or self-care (01) | LOC: LAB 11:33 | PROVIDERS: PCP Family Medicine Geriatric Medicine; Referring Provider Family Medicine Geriatric Medicine; Visit Provider Family Medicine Geriatric Medicine | DX: I10 Essential (primary) hypertension (principal); I35.0 Nonrheumatic aortic (valve) stenosis; D50.9 Iron deficiency anemia, unspecified | CPT/HCPCS: 82274 ==

== ENCOUNTER → 2024-03-25 | Outpatient (CLI) | payer MEDICARE, SELFPAY ==
[2024-03-25 13:40] LABS: Absolute Lymphocyte Count 0.82 X10^3/uL (0.83-4.51); Absolute Neutrophil Count 5.4 X10^3/uL (2.0-7.7); Basophil# 0.07 X10^3/uL; Basophil% 0.9 % (0-1); Eosinophil# 0.08 X10^3/uL; Eosinophils% 1.1 % (0-5); Hematocrit 30.4 % (40-54); Hemoglobin 9.2 g/dL (13.0-16.5); Lymphocyte # 0.82 X10^3/ul (0.83-4.51); Lymphocyte % 11.1 % (19-41); Mean Corp Hgb Conc 30.3 g/dL (32-36); Mean Corpuscular Hgb 28.4 pg (27.0-32.0); Mean Corpuscular Volume 93.8 fL (80-94); Mean Platelet Vol. 10.7 fl (6.2-12.0); Monocyte# 0.97 X10^3/uL; Monocyte% 13.2 % (0-10); NRBC Flagged by Analyzer 0 % (0-5); Neutrophil # 5.41 X10^3/uL (2.7-7.7); Neutrophil % 73.4 % (47-70); Platelet Count 229 K/mm3 (150-450); RBC Distribution Width CV 18.5 % (11.6-14.6); RBC Distribution Width SD 64.1 fl (35.1-43.9); Red Blood Count 3.24 M/mm3 (4.6-6.2); White Blood Count 7.4 K/mm3 (4.4-11.0)
[2024-03-25 13:52] LABS: International Normalized Ratio 2.8; Prothrombin Time (Protime)PT. 29.2 SECONDS (11.7-14.9)
[2024-03-25 14:10] LABS: ALB/GLOB Ratio 0.6 RATIO (0.9-2.4); AST(SGOT) 20 U/L (15-37); Alanine Aminotransfer ALT/SGPT 18 U/L (16-61); Albumin, Serum 2.8 g/dL (3.2-5.0); Alkaline Phosphatase 177 U/L (45-117); Anion Gap 2 (5-15); BUN 15 mg/dL (7-18); BUN/Creat Ratio 20.6 RATIO (10-20); Calcium,Total 8.8 mg/dL (8.5-10.1); Chloride 106 mmol/L (98-107); Creatinine, Serum 0.73 mg/dL (0.70-1.30); EST Glomerular Filtration Rate 112 mL/min (>60); Est Glom Filt Rate - Afr Amer 136 mL/min (>60); Globulin 4.5 g/dL (2.2-4.2); Glucose 91 mg/dL (74-106); Potassium 4.1 mmol/L (3.5-5.1); Protein, Total 7.3 g/dL (6.4-8.2); Sodium Level 141 mmol/L (136-145)
[2024-03-25 15:17] LABS: BNP,B-Type NATRIURETIC PEPTIDE 987.7 pg/mL (0-100)
== END | disposition home or self-care (01) ==
PROVIDERS: PCP Family Medicine Geriatric Medicine; Referring Provider Nurse Practitioner Family; Visit Provider Nurse Practitioner Family
DX: D50.9 Iron deficiency anemia, unspecified (principal); I50.30 Unspecified diastolic (congestive) heart failure
CPT/HCPCS: 36415; 80053; 83880; 85025; 85610

== ENCOUNTER → 2024-03-28 | Outpatient (CLI) | payer MEDICARE, SELFPAY ==
[2024-03-28 15:34] LABS: Absolute Lymphocyte Count 0.97 X10^3/uL (0.83-4.51); Absolute Neutrophil Count 3.3 X10^3/uL (2.0-7.7); Basophil# 0.08 X10^3/uL; Basophil% 1.5 % (0-1); Eosinophils% 3.7 % (0-5); Hematocrit 29.9 % (40-54); Hemoglobin 9.2 g/dL (13.0-16.5); Lymphocyte # 0.97 X10^3/ul (0.83-4.51); Lymphocyte % 18.1 % (19-41); Mean Corp Hgb Conc 30.8 g/dL (32-36); Mean Corpuscular Hgb 28.9 pg (27.0-32.0); Mean Platelet Vol. 10.6 fl (6.2-12.0); Monocyte# 0.75 X10^3/uL; NRBC Flagged by Analyzer 0 % (0-5); Neutrophil # 3.34 X10^3/uL (2.7-7.7); Neutrophil % 62.5 % (47-70); Platelet Count 179 K/mm3 (150-450); RBC Distribution Width CV 17.8 % (11.6-14.6); RBC Distribution Width SD 61.9 fl (35.1-43.9); Red Blood Count 3.18 M/mm3 (4.6-6.2); White Blood Count 5.4 K/mm3 (4.4-11.0)
[2024-03-28 15:57] LABS: Anion Gap 3 (5-15); BUN 18 mg/dL (7-18); BUN/Creat Ratio 25.2 RATIO (10-20); Calcium,Total 8.7 mg/dL (8.5-10.1); Chloride 105 mmol/L (98-107); Creatinine, Serum 0.72 mg/dL (0.70-1.30); EST Glomerular Filtration Rate 114 mL/min (>60); Est Glom Filt Rate - Afr Amer 138 mL/min (>60); Glucose 92 mg/dL (74-106); Potassium 3.6 mmol/L (3.5-5.1); Sodium Level 143 mmol/L (136-145)
== END | disposition home or self-care (01) ==
LOC: LAB 14:50
PROVIDERS: PCP Family Medicine Geriatric Medicine; Referring Provider Family Medicine Geriatric Medicine; Visit Provider Family Medicine Geriatric Medicine
DX: I11.0 Hypertensive heart disease with heart failure (principal); I50.30 Unspecified diastolic (congestive) heart failure; J44.9 Chronic obstructive pulmonary disease, unspecified
CPT/HCPCS: 36415; 80048; 85025

== ENCOUNTER → 2024-04-11 | Outpatient (CLI) | payer MEDICARE, SELFPAY ==
[2024-04-11 17:08] LABS: Absolute Lymphocyte Count 1.24 X10^3/uL (0.83-4.51); Absolute Neutrophil Count 4.4 X10^3/uL (2.0-7.7); Basophil# 0.08 X10^3/uL; Basophil% 1.2 % (0-1); Eosinophil# 0.07 X10^3/uL; Eosinophils% 1.1 % (0-5); Hematocrit 28.9 % (40-54); Hemoglobin 8.9 g/dL (13.0-16.5); Lymphocyte # 1.24 X10^3/ul (0.83-4.51); Mean Corp Hgb Conc 30.8 g/dL (32-36); Mean Corpuscular Hgb 28.9 pg (27.0-32.0); Mean Corpuscular Volume 93.8 fL (80-94); Mean Platelet Vol. 10.7 fl (6.2-12.0); Monocyte# 0.72 X10^3/uL; NRBC Flagged by Analyzer 0 % (0-5); Neutrophil % 67.5 % (47-70); Platelet Count 220 K/mm3 (150-450); RBC Distribution Width CV 17.7 % (11.6-14.6); RBC Distribution Width SD 61.5 fl (35.1-43.9); Red Blood Count 3.08 M/mm3 (4.6-6.2); White Blood Count 6.5 K/mm3 (4.4-11.0)
[2024-04-11 17:17] LABS: International Normalized Ratio 1.9; Prothrombin Time (Protime)PT. 21.7 SECONDS (11.7-14.9)
[2024-04-11 17:55] LABS: ALB/GLOB Ratio 0.6 RATIO (0.9-2.4); AST(SGOT) 22 U/L (15-37); Alanine Aminotransfer ALT/SGPT 18 U/L (16-61); Albumin, Serum 2.7 g/dL (3.2-5.0); Alkaline Phosphatase 122 U/L (45-117); Anion Gap 4 (5-15); BUN 27 mg/dL (7-18); BUN/Creat Ratio 35.1 RATIO (10-20); Calcium,Total 8.9 mg/dL (8.5-10.1); Chloride 106 mmol/L (98-107); Creatinine, Serum 0.77 mg/dL (0.70-1.30); EST Glomerular Filtration Rate 105 mL/min (>60); Est Glom Filt Rate - Afr Amer 127 mL/min (>60); Globulin 4.6 g/dL (2.2-4.2); Glucose 95 mg/dL (74-106); Protein, Total 7.3 g/dL (6.4-8.2); Sodium Level 140 mmol/L (136-145)
== END | disposition home or self-care (01) ==
LOC: LAB 16:28
PROVIDERS: PCP Family Medicine Geriatric Medicine; Referring Provider Nurse Practitioner Family; Visit Provider Nurse Practitioner Family
DX: I48.11 Longstanding persistent atrial fibrillation (principal); I10 Essential (primary) hypertension
CPT/HCPCS: 36415; 80053; 85025; 85610

== ENCOUNTER → 2024-04-30 | Outpatient (CLI) | payer MEDICARE, SELFPAY ==
[2024-04-30 15:04] LABS: Absolute Lymphocyte Count 0.94 X10^3/uL (0.83-4.51); Absolute Neutrophil Count 3.2 X10^3/uL (2.0-7.7); Basophil# 0.07 X10^3/uL; Basophil% 1.4 % (0-1); Eosinophil# 0.17 X10^3/uL; Eosinophils% 3.4 % (0-5); Hematocrit 30.6 % (40-54); Hemoglobin 9.4 g/dL (13.0-16.5); Lymphocyte # 0.94 X10^3/ul (0.83-4.51); Lymphocyte % 18.5 % (19-41); Mean Corp Hgb Conc 30.7 g/dL (32-36); Mean Corpuscular Hgb 29.3 pg (27.0-32.0); Mean Corpuscular Volume 95.3 fL (80-94); Mean Platelet Vol. 10.7 fl (6.2-12.0); Monocyte# 0.65 X10^3/uL; Monocyte% 12.8 % (0-10); NRBC Flagged by Analyzer 0 % (0-5); Neutrophil # 3.22 X10^3/uL (2.7-7.7); Neutrophil % 63.5 % (47-70); Platelet Count 178 K/mm3 (150-450); RBC Distribution Width CV 16.2 % (11.6-14.6); RBC Distribution Width SD 57.4 fl (35.1-43.9); Red Blood Count 3.21 M/mm3 (4.6-6.2); White Blood Count 5.1 K/mm3 (4.4-11.0)
[2024-04-30 15:48] LABS: ALB/GLOB Ratio 0.6 RATIO (0.9-2.4); AST(SGOT) 20 U/L (15-37); Alanine Aminotransfer ALT/SGPT 16 U/L (16-61); Albumin, Serum 2.7 g/dL (3.2-5.0); Alkaline Phosphatase 133 U/L (45-117); Anion Gap 6 (5-15); BUN 21 mg/dL (7-18); Chloride 104 mmol/L (98-107); Creatinine, Serum 0.87 mg/dL (0.70-1.30); EST Glomerular Filtration Rate 91 mL/min (>60); Est Glom Filt Rate - Afr Amer 110 mL/min (>60); Globulin 4.6 g/dL (2.2-4.2); Glucose 106 mg/dL (74-106); Potassium 4.1 mmol/L (3.5-5.1); Protein, Total 7.3 g/dL (6.4-8.2); Sodium Level 139 mmol/L (136-145)
[2024-04-30 16:18] LABS: M R Staph aureus DNA By PCR Negative (Negative); Probe Check PASS; Specimen Processing Control PASS; Staph aureus DNA By PCR NEGATIVE (Negative)
[2024-04-30 22:16] LABS: Erythrocyte Sedimentation Rate 43 mm/hr (0-20)
== END | disposition home or self-care (01) ==
LOC: LAB 14:35
PROVIDERS: PCP Family Medicine Geriatric Medicine; Referring Provider Family Medicine Geriatric Medicine; Visit Provider Family Medicine Geriatric Medicine
DX: E78.5 Hyperlipidemia, unspecified (principal); I11.0 Hypertensive heart disease with heart failure; I50.20 Unspecified systolic (congestive) heart failure; B95.62 Methicillin resistant Staphylococcus aureus infection as the cause of diseases classified elsewhere; S91.102A Unspecified open wound of left great toe without damage to nail, initial encounter; L03.116 Cellulitis of left lower limb
CPT/HCPCS: 36415; 80053; 85025; 85652; 86140; 87070; 87077; 87186; 87205; 87640

== ENCOUNTER → 2024-05-20 | Outpatient (CLI) | payer MEDICARE, SELFPAY ==
[2024-05-20 15:59] LABS: Absolute Lymphocyte Count 0.73 X10^3/uL (0.83-4.51); Basophil# 0.09 X10^3/uL; Eosinophil# 0.06 X10^3/uL; Eosinophils% 1.3 % (0-5); Hematocrit 33.4 % (40-54); Hemoglobin 10.2 g/dL (13.0-16.5); Lymphocyte # 0.73 X10^3/ul (0.83-4.51); Lymphocyte % 15.9 % (19-41); Mean Corp Hgb Conc 30.5 g/dL (32-36); Mean Corpuscular Hgb 28.7 pg (27.0-32.0); Mean Corpuscular Volume 94.1 fL (80-94); Mean Platelet Vol. 10.9 fl (6.2-12.0); Monocyte# 0.66 X10^3/uL; Monocyte% 14.4 % (0-10); NRBC Flagged by Analyzer 0 % (0-5); Neutrophil # 3.03 X10^3/uL (2.7-7.7); Platelet Count 197 K/mm3 (150-450); RBC Distribution Width CV 16.5 % (11.6-14.6); RBC Distribution Width SD 56.1 fl (35.1-43.9); Red Blood Count 3.55 M/mm3 (4.6-6.2); White Blood Count 4.6 K/mm3 (4.4-11.0)
[2024-05-20 16:22] LABS: Anion Gap 4 (5-15); BUN 30 mg/dL (7-18); BUN/Creat Ratio 26.3 RATIO (10-20); Calcium,Total 9.1 mg/dL (8.5-10.1); Chloride 104 mmol/L (98-107); Creatinine, Serum 1.14 mg/dL (0.70-1.30); EST Glomerular Filtration Rate 67 mL/min (>60); Est Glom Filt Rate - Afr Amer 81 mL/min (>60); Glucose 100 mg/dL (74-106); Potassium 4.1 mmol/L (3.5-5.1); Sodium Level 140 mmol/L (136-145)
[2024-05-20 16:45] LABS: International Normalized Ratio 1.7; Prothrombin Time (Protime)PT. 19.7 SECONDS (11.7-14.9)
== END | disposition home or self-care (01) ==
LOC: POLAB3 15:20
PROVIDERS: Internal Medicine Cardiovascular Disease; PCP Family Medicine Geriatric Medicine; Visit Provider Family Medicine Geriatric Medicine
DX: I10 Essential (primary) hypertension (principal); I35.0 Nonrheumatic aortic (valve) stenosis
CPT/HCPCS: 36415; 80048; 85025; 85610

== ENCOUNTER 2024-06-03 06:42 | Day surgery (SDC) | payer MEDICARE, SELFPAY ==
[2024-05-31 09:10] VITALS: BMI 34.4
[2024-06-03 07:01] LABS: INR Fingerstick 1.3; Prothrombin Time Fingerstick 14.3 SEC (11.7-14.9)
--- NOTE | 2024-06-03 09:03 | CL.D_ITS ---
Patient Name: ANDER DIAZ Study Date: 06/03/2024 Performing: Osbaldo Laird MD Ht: 71 inches 180.34 cm : 1950 Wt: 247.01 lbs 112.04 kg Age: 73 Gender: male BSA: 2.31 PROCEDURE(S) PERFORMED [id number]-([id number])C/COR CLINICAL PROFILE AND INDICATIONS Heart Failure: NYHA Class: 2, Newly Diagnosed: Yes, Heart Failure Type: Diastolic Stress/Imaging Stress/Image Study Performed: No CAD Presentations: Other: valvular heart disease CONCLUSIONS Mild to moderate LAD disease with no significant stenosis, left circumflex artery and right coronary artery with no significant disease, severe aortic stenosis. RECOMMENDATIONS Refer for TAVR DESCRIPTION OF PROCEDURE The patient arrived to the procedure lab. The risks and benefits of the procedure as well as a full description of our services here and current unavailability of surgical backup were fully explained to the patient and/or their significant other prior to the catheterization. The Timeout was completed, verifying the correct patient and procedure. The patient's procedural site was prepped and draped in the usual fashion. Local anesthetic was given subcutaneously to right radial region with Lidocaine 2%. Using a modified Seldinger technique, arterial access was obtained via the right radial artery, a 6Fr sheath was inserted. Left Coronary Artery selective angiography was performed in multiple views using a 5 Fr. 4.0 Byram catheter. Right Coronary Artery selective angiography was then performed in multiple views using a 5 Fr. 4.0 Byram catheter.The arterial sheath was pulled and a TR Band was applied for hemostasis w/ 13ml air CORONARY ANGIOGRAPHY DOMINANCE: Right Dominant LEFT HEART ASSESSMENT Left Ventricular Ejection Fraction: by Echo 50 % Normal LV wall motion Normal Left Ventricular systolic function LEFT MAIN: Mild calcification, No significant disease noted LEFT ANTERIOR DESCENDING ARTERY: Moderate luminal irregularities up to 50% CIRCUMFLEX ARTERY: No significant disease noted RIGHT CORONARY ARTERY: No significant disease noted VALVE FINDINGS: Aortic Valve Calcification - moderate Aortic Valve Stenosis - severe COMPLICATIONS No Complications PROCEDURE MEDICATIONS Versed 1 mg IV Fentanyl 50 mcg IV Oxygen: 2 L/min via nasal cannula Heparin given IA 06/03/2024 08:41:54 SUMMARY OF HEMODYNAMIC DATA Time AIR REST ECG 07:23:31 AO 104/66 (81) SA 08:43:41 Signed By Osbaldo Laird MD On 06/03/2024 09:02:20 Osbaldo Laird MD
== END 2024-06-03 11:25 | disposition home or self-care (01) ==
PROVIDERS: PCP Family Medicine Geriatric Medicine; Referring Provider Internal Medicine Cardiovascular Disease; Visit Provider Internal Medicine Cardiovascular Disease
DX: Z01.810 Encounter for preprocedural cardiovascular examination (principal); I50.32 Chronic diastolic (congestive) heart failure; I11.0 Hypertensive heart disease with heart failure; J44.9 Chronic obstructive pulmonary disease, unspecified; I48.11 Longstanding persistent atrial fibrillation; I35.0 Nonrheumatic aortic (valve) stenosis; Z79.01 Long term (current) use of 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s; Z79.899 Other long term (current) drug therapy; Z79.51 Long term (current) use of inhaled steroids; E78.5 Hyperlipidemia, unspecified; Z87.891 Personal history of nicotine dependence; E66.9 Obesity, unspecified; R60.0 Localized edema; D64.9 Anemia, unspecified; I35.8 Other nonrheumatic aortic valve disorders
CPT/HCPCS: 36416; 85610; 93454; 99152; 99153; J7040; Q9967; C1769; C1894

== ENCOUNTER → 2024-06-13 | Outpatient (CLI) | payer MEDICARE, SELFPAY ==
[2024-06-13 16:19] LABS: Absolute Lymphocyte Count 0.95 X10^3/uL (0.83-4.51); Absolute Neutrophil Count 1.9 X10^3/uL (2.0-7.7); Basophil# 0.06 X10^3/uL; Basophil% 1.7 % (0-1); Eosinophil# 0.16 X10^3/uL; Eosinophils% 4.5 % (0-5); Hematocrit 32.6 % (40-54); Hemoglobin 10.1 g/dL (13.0-16.5); Lymphocyte # 0.95 X10^3/ul (0.83-4.51); Lymphocyte % 26.9 % (19-41); Mean Corpuscular Hgb 29.3 pg (27.0-32.0); Mean Corpuscular Volume 94.5 fL (80-94); Mean Platelet Vol. 10.7 fl (6.2-12.0); Monocyte% 14.2 % (0-10); NRBC Flagged by Analyzer 0 % (0-5); Neutrophil # 1.85 X10^3/uL (2.7-7.7); Neutrophil % 52.4 % (47-70); Platelet Count 165 K/mm3 (150-450); RBC Distribution Width CV 15.4 % (11.6-14.6); RBC Distribution Width SD 53.7 fl (35.1-43.9); Red Blood Count 3.45 M/mm3 (4.6-6.2); White Blood Count 3.5 K/mm3 (4.4-11.0)
[2024-06-13 16:39] LABS: Vitamin D,25 Hydroxy 52.2 ng/mL
[2024-06-13 16:48] LABS: ALB/GLOB Ratio 0.7 RATIO (0.9-2.4); AST(SGOT) 19 U/L (15-37); Alanine Aminotransfer ALT/SGPT 15 U/L (16-61); Albumin, Serum 2.8 g/dL (3.2-5.0); Alkaline Phosphatase 94 U/L (45-117); Anion Gap 3 (5-15); BUN 11 mg/dL (7-18); Calcium,Total 8.8 mg/dL (8.5-10.1); Chloride 108 mmol/L (98-107); Cholesterol 80 mg/dL (200); Creatinine, Serum 0.74 mg/dL (0.70-1.30); EST Glomerular Filtration Rate 111 mL/min (>60); Est Glom Filt Rate - Afr Amer 134 mL/min (>60); Globulin 3.9 g/dL (2.2-4.2); Glucose 83 mg/dL (74-106); High Density Lipoprotein 55 mg/dL; Protein, Total 6.7 g/dL (6.4-8.2); Sodium Level 140 mmol/L (136-145); Thyroid Stim Hormone (TSH) 1.47 uIU/mL (0.358-3.74); Triglycerides 33 mg/dL; Very Low Density Lipoprotein 7 mg/dL (5-40)
== END | disposition home or self-care (01) ==
LOC: POLAB3 15:31
PROVIDERS: PCP Family Medicine Geriatric Medicine; Visit Provider Family Medicine Geriatric Medicine
DX: I10 Essential (primary) hypertension (principal); E55.9 Vitamin D deficiency, unspecified; E78.5 Hyperlipidemia, unspecified
CPT/HCPCS: 36415; 80053; 80061; 82306; 84443; 85025

== ENCOUNTER → 2024-06-20 | Outpatient (CLI) | payer MEDICARE, SELFPAY ==
[2024-06-20 16:41] LABS: Anion Gap 4 (5-15); BUN 16 mg/dL (7-18); BUN/Creat Ratio 20.7 RATIO (10-20); Calcium,Total 9.4 mg/dL (8.5-10.1); Chloride 106 mmol/L (98-107); Creatinine, Serum 0.77 mg/dL (0.70-1.30); EST Glomerular Filtration Rate 104 mL/min (>60); Est Glom Filt Rate - Afr Amer 126 mL/min (>60); Glucose 106 mg/dL (74-106); Sodium Level 140 mmol/L (136-145)
== END | disposition home or self-care (01) ==
LOC: LAB 15:24
PROVIDERS: PCP Family Medicine Geriatric Medicine; Referring Provider Family Medicine Geriatric Medicine; Visit Provider Family Medicine Geriatric Medicine
DX: I10 Essential (primary) hypertension (principal)
CPT/HCPCS: 36415; 80048

== ENCOUNTER → 2024-08-13 | Outpatient (CLI) | payer MEDICARE, SELFPAY ==
--- NOTE | 2024-08-13 09:31 | ECHOD_ITS ---
Reason For Study: Valve Replacement-TAVR Procedure This was a 2D Doppler, Color Flow transthoracic echocardiogram. Exam performed in department. Left Ventricle Normal LV size. The left ventricular ejection fraction is 60 %. No regional wall motion abnormalities noted. Right Ventricle Normal RV size. Normal systolic function. Atria The left atrium is severely enlarged. The right atrium is severely enlarged. Mitral Valve Bileaflet diffuse mitral valve thickening. Tricuspid Valve Normal tricuspid valve. Mild to moderate (1-2+) tricuspid valve insufficiency. Pulmonary artery systolic pressure is 50 mmHg. Aortic Valve Peak aortic valve gradient 21 mmHg. Mean aortic valve gradient 10 mmHg. Bioprosthetic aortic valve. Pulmonic Valve Normal pulmonic valve. Great Vessels Normal aortic root. The pulmonary artery is normal size. Inferior vena cava collapse with respiration. Pericardium/Pleural No pericardial effusion. Medication Previous Negative Bubble on YADI (02/2024). MMode/2D Measurements & Calculations LVIDd: 5.9 cm IVSd: 1.5 cm LVOT diam: 2.1 cm LVIDs: 3.6 cm LVPWd: 1.1 cm RVDd: 4.6 cm FS: 39.2 % LVOT area: 3.5 cm2 Ao root diam: 3.9 cm asc Aorta Diam: 4.2 cm LAV(MOD-bp): 195.8 ml LA dimension: 5.3 cm LAV(MOD-bp) Indexed: 90.9 ml/m2 LAV(MOD-sp2): 170.8 ml LAV(MOD-sp4): 179.7 ml TAPSE: 1.9 cm LA A4 area: 43.3 cm2 RA A4 area: 40.7 cm2 Doppler Measurements & Calculations MV E max david: 144.5 cm/sec MV V2 max: 172.7 cm/sec Ao V2 max: 228.6 cm/sec MV max P.0 mmHg Ao max P.0 mmHg MV V2 mean: 77.1 cm/sec Ao V2 mean: 148.9 cm/sec MV mean P.3 mmHg Ao mean P.5 mmHg MV V2 VTI: 44.6 cm Ao V2 VTI: 46.7 cm MVA(VTI): 2.6 cm2 AV (velocity ratio): 0.71 MARY(I,D): 2.5 cm2 MARY(V,D): 2.4 cm2 LV V1 max: 152.8 cm/sec SV(LVOT): 117.9 ml PA V2 max: 99.5 cm/sec LV V1 max P.4 mmHg PA max PG (full): 1.5 mmHg LV V1 mean P.0 mmHg LV V1 mean: 91.2 cm/sec LV V1 VTI: 33.4 cm TR max david: 342.6 cm/sec TR max P.0 mmHg ECHO/Echo Complete Interpretation Summary Normal LV size. The left ventricular ejection fraction is 60 %. Bioprosthetic aortic valve. Mean aortic valve gradient 10 mmHg. Pulmonary artery systolic pressure is 50 mmHg. Biatrial enlargement is noted. Compared to the previous there has been on interval prosthetic aortic valve rep lacement. Ordering Physician: Shady Obrien Referring Physician: GLYNN GRIMALDO Performed By: Salvatore Candelario and Student
== END | disposition home or self-care (01) ==
LOC: CVS 09:31
PROVIDERS: PCP Family Medicine Geriatric Medicine; Referring Provider Nurse Practitioner Adult Health; Visit Provider Internal Medicine Cardiovascular Disease
DX: I35.0 Nonrheumatic aortic (valve) stenosis (principal); I50.32 Chronic diastolic (congestive) heart failure; Z95.2 Presence of prosthetic heart valve
CPT/HCPCS: 93306

== ENCOUNTER → 2024-08-13 | Outpatient (CLI) | payer MEDICARE, SELFPAY ==
[2024-08-13 16:14] LABS: Absolute Lymphocyte Count 1.31 X10^3/uL (0.83-4.51); Basophil# 0.09 X10^3/uL; Basophil% 1.4 % (0-1); Eosinophil# 0.37 X10^3/uL; Eosinophils% 5.7 % (0-5); Hematocrit 38.1 % (40-54); Lymphocyte # 1.31 X10^3/ul (0.83-4.51); Mean Corp Hgb Conc 31.5 g/dL (32-36); Mean Corpuscular Hgb 28.6 pg (27.0-32.0); Mean Corpuscular Volume 90.9 fL (80-94); Mean Platelet Vol. 11.3 fl (6.2-12.0); Monocyte# 0.76 X10^3/uL; Monocyte% 11.6 % (0-10); NRBC Flagged by Analyzer 0 % (0-5); Neutrophil # 3.98 X10^3/uL (2.7-7.7); Neutrophil % 60.8 % (47-70); Platelet Count 124 K/mm3 (150-450); RBC Distribution Width CV 14.6 % (11.6-14.6); RBC Distribution Width SD 48.5 fl (35.1-43.9); Red Blood Count 4.19 M/mm3 (4.6-6.2); White Blood Count 6.5 K/mm3 (4.4-11.0)
[2024-08-13 16:21] LABS: Prothrombin Time (Protime)PT. 22.4 SECONDS (11.7-14.9)
[2024-08-13 16:37] LABS: BNP,B-Type NATRIURETIC PEPTIDE 474.9 pg/mL (0-100)
[2024-08-13 16:39] LABS: ALB/GLOB Ratio 0.7 RATIO (0.9-2.4); AST(SGOT) 17 U/L (15-37); Alanine Aminotransfer ALT/SGPT 19 U/L (16-61); Albumin, Serum 3.1 g/dL (3.2-5.0); Alkaline Phosphatase 83 U/L (45-117); Anion Gap 2 (5-15); BUN 23 mg/dL (7-18); BUN/Creat Ratio 17.3 RATIO (10-20); Calcium,Total 9.8 mg/dL (8.5-10.1); Chloride 110 mmol/L (98-107); Creatinine, Serum 1.33 mg/dL (0.70-1.30); EST Glomerular Filtration Rate 56 mL/min (>60); Est Glom Filt Rate - Afr Amer 67 mL/min (>60); Globulin 4.2 g/dL (2.2-4.2); Glucose 121 mg/dL (74-106); Potassium 4.9 mmol/L (3.5-5.1); Protein, Total 7.3 g/dL (6.4-8.2); Sodium Level 142 mmol/L (136-145)
== END | disposition home or self-care (01) ==
LOC: POLAB3 15:47
PROVIDERS: Internal Medicine Cardiovascular Disease; PCP Family Medicine Geriatric Medicine; Visit Provider Family Medicine Geriatric Medicine
DX: I11.0 Hypertensive heart disease with heart failure (principal); I50.20 Unspecified systolic (congestive) heart failure
CPT/HCPCS: 36415; 80053; 83880; 85025; 85610

== ENCOUNTER 2024-08-14 11:50 | Outpatient (CLI) | payer MEDICARE, SELFPAY ==
[2024-08-14] MEDS: 0.9% NaCl Peripheral Flush Adult/Peds IV (12:11)
[2024-08-14] MEDS: 0.9% Normal Saline (1000mL) 1,000 ML 999 ML IV (12:20)
[2024-08-14 12:22] VITALS: BP 103/59; PULSE 54; RESP 14; TEMP 36.2; O2SAT 98; BMI 29.9
== END 2024-08-14 23:59 | disposition home or self-care (01) ==
LOC: MEDOUTP 11:51
PROVIDERS: PCP Family Medicine Geriatric Medicine; Referring Provider Family Medicine Geriatric Medicine; Visit Provider Family Medicine Geriatric Medicine
DX: E86.0 Dehydration (principal)
CPT/HCPCS: 96360; J7030; A4216

== ENCOUNTER → 2024-08-26 | Outpatient (CLI) | payer MEDICARE, SELFPAY ==
[2024-08-26 13:15] LABS: International Normalized Ratio 1.9; Prothrombin Time (Protime)PT. 21.6 SECONDS (11.7-14.9)
== END | disposition home or self-care (01) ==
LOC: LAB 12:21
PROVIDERS: PCP Family Medicine Geriatric Medicine; Referring Provider Internal Medicine Cardiovascular Disease; Visit Provider Internal Medicine Cardiovascular Disease
DX: Z79.01 Long term (current) use of 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s (principal)
CPT/HCPCS: 36415; 85610

== ENCOUNTER → 2024-09-12 | Outpatient (CLI) | payer MEDICARE, SELFPAY ==
[2024-09-12 13:49] LABS: Absolute Lymphocyte Count 1.01 X10^3/uL (0.83-4.51); Absolute Neutrophil Count 3.7 X10^3/uL (2.0-7.7); Basophil% 1.7 % (0-1); Eosinophil# 0.33 X10^3/uL; Eosinophils% 5.5 % (0-5); Hematocrit 31.2 % (40-54); Lymphocyte # 1.01 X10^3/ul (0.83-4.51); Lymphocyte % 16.7 % (19-41); Mean Corp Hgb Conc 32.1 g/dL (32-36); Mean Corpuscular Hgb 29.9 pg (27.0-32.0); Mean Corpuscular Volume 93.4 fL (80-94); Mean Platelet Vol. 10.5 fl (6.2-12.0); Monocyte# 0.88 X10^3/uL; Monocyte% 14.5 % (0-10); NRBC Flagged by Analyzer 0 % (0-5); Neutrophil # 3.71 X10^3/uL (2.7-7.7); Neutrophil % 61.3 % (47-70); Platelet Count 144 K/mm3 (150-450); RBC Distribution Width CV 15.1 % (11.6-14.6); RBC Distribution Width SD 51.9 fl (35.1-43.9); Red Blood Count 3.34 M/mm3 (4.6-6.2); White Blood Count 6.1 K/mm3 (4.4-11.0)
[2024-09-12 14:13] LABS: International Normalized Ratio 1.8; Prothrombin Time (Protime)PT. 21.1 SECONDS (11.7-14.9)
[2024-09-12 14:17] LABS: Vitamin D,25 Hydroxy 36.1 ng/mL
[2024-09-12 14:26] LABS: ALB/GLOB Ratio 0.8 RATIO (0.9-2.4); AST(SGOT) 17 U/L (15-37); Alanine Aminotransfer ALT/SGPT 19 U/L (16-61); Albumin, Serum 3.1 g/dL (3.2-5.0); Alkaline Phosphatase 118 U/L (45-117); Anion Gap 4 (5-15); BUN 18 mg/dL (7-18); BUN/Creat Ratio 24.1 RATIO (10-20); Calcium,Total 9.1 mg/dL (8.5-10.1); Chloride 106 mmol/L (98-107); Cholesterol 103 mg/dL (200); Creatinine, Serum 0.75 mg/dL (0.70-1.30); EST Glomerular Filtration Rate 108 mL/min (>60); Est Glom Filt Rate - Afr Amer 131 mL/min (>60); Globulin 4.1 g/dL (2.2-4.2); Glucose 119 mg/dL (74-106); High Density Lipoprotein 73 mg/dL; Potassium 3.7 mmol/L (3.5-5.1); Protein, Total 7.2 g/dL (6.4-8.2); Sodium Level 141 mmol/L (136-145); Thyroid Stim Hormone (TSH) 0.966 uIU/mL (0.358-3.740); Triglycerides 34 mg/dL; Very Low Density Lipoprotein 7 mg/dL (5-40)
== END | disposition home or self-care (01) ==
LOC: POLAB3 13:26
PROVIDERS: Internal Medicine Cardiovascular Disease; PCP Family Medicine Geriatric Medicine; Visit Provider Family Medicine Geriatric Medicine
DX: E78.5 Hyperlipidemia, unspecified (principal); E55.9 Vitamin D deficiency, unspecified; I10 Essential (primary) hypertension; Z79.01 Long term (current) use of 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s
CPT/HCPCS: 36415; 80053; 80061; 82306; 84443; 85025; 85610

== ENCOUNTER 2024-10-02 15:40 | Outpatient (RCR) | payer MEDICARE, SELFPAY ==
[2024-10-02 16:36] LABS: Prothrombin Time (Protime)PT. 22.7 SECONDS (11.7-14.9)
== END 2024-10-12 18:00 | disposition home or self-care (01) ==
LOC: LAB 15:40
PROVIDERS: PCP Family Medicine Geriatric Medicine; Referring Provider Internal Medicine Cardiovascular Disease; Visit Provider Internal Medicine Cardiovascular Disease
DX: Z79.01 Long term (current) use of 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s (principal)
CPT/HCPCS: 36415; 85610

== ENCOUNTER 2024-10-30 15:18 | Outpatient (RCR) | payer MEDICARE, SELFPAY ==
[2024-10-30 15:42] LABS: Prothrombin Time (Protime)PT. 22.7 SECONDS (11.7-14.9)
== END 2024-10-30 18:00 | disposition home or self-care (01) ==
LOC: LAB 15:18
PROVIDERS: PCP Family Medicine Geriatric Medicine; Referring Provider Internal Medicine Cardiovascular Disease; Visit Provider Internal Medicine Cardiovascular Disease
DX: Z79.01 Long term (current) use of 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s (principal); R68.83 Chills (without fever)
CPT/HCPCS: 36415; 85610; 87631

== ENCOUNTER 2024-11-18 13:11 | Outpatient (RCR) | payer MEDICARE, SELFPAY ==
[2024-11-18 13:59] LABS: International Normalized Ratio 1.8; Prothrombin Time (Protime)PT. 21.7 SECONDS (11.7-14.9)
[2024-11-18 14:15] LABS: Amphetamine Urine NEGATIVE (<1000 ng/mL); Barbiturate Urine VISTA NEGATIVE (< 200 ng/mL); Benzodiazepine Urine VISTA NEGATIVE (< 200 ng/mL); Cocaine Urine VISTA NEGATIVE (< 300 ng/mL); Ecstacy Urine VISTA NEGATIVE (< 500 ng/mL); Methadone Urine VISTA NEGATIVE (< 300 ng/mL); PCP Urine VISTA NEGATIVE (< 25 ng/mL); THC Urine VISTA NEGATIVE (< 50 ng/mL); Vista UDS pH Range 6
== END 2024-11-18 18:00 | disposition home or self-care (01) ==
LOC: LAB 13:11
PROVIDERS: PCP Family Medicine Geriatric Medicine; Referring Provider Internal Medicine Cardiovascular Disease; Visit Provider Internal Medicine Cardiovascular Disease
DX: F11.20 Opioid dependence, uncomplicated (principal); Z79.01 Long term (current) use of 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s
CPT/HCPCS: 36415; 80307; 85610

== ENCOUNTER → 2024-12-10 | Outpatient (CLI) | payer MEDICARE, SELFPAY ==
[2024-12-10 14:16] LABS: Absolute Lymphocyte Count 1.66 X10^3/uL (0.83-4.51); Basophil# 0.08 X10^3/uL; Basophil% 1.2 % (0-1); Eosinophil# 0.19 X10^3/uL; Eosinophils% 2.8 % (0-5); Hematocrit 35.5 % (40-54); Hemoglobin 11.4 g/dL (13.0-16.5); Lymphocyte # 1.66 X10^3/ul (0.83-4.51); Lymphocyte % 24.7 % (19-41); Mean Corp Hgb Conc 32.1 g/dL (32-36); Mean Corpuscular Hgb 29.4 pg (27.0-32.0); Mean Corpuscular Volume 91.5 fL (80-94); Mean Platelet Vol. 10.3 fl (6.2-12.0); Monocyte# 0.79 X10^3/uL; Monocyte% 11.8 % (0-10); NRBC Flagged by Analyzer 0 % (0-5); Neutrophil # 3.97 X10^3/uL (2.7-7.7); Neutrophil % 59.2 % (47-70); Platelet Count 169 K/mm3 (150-450); RBC Distribution Width SD 47.4 fl (35.1-43.9); Red Blood Count 3.88 M/mm3 (4.6-6.2); White Blood Count 6.7 K/mm3 (4.4-11.0)
[2024-12-10 14:29] LABS: International Normalized Ratio 1.9; Prothrombin Time (Protime)PT. 21.8 SECONDS (11.7-14.9)
[2024-12-10 14:55] LABS: Vitamin D,25 Hydroxy 41.2 ng/mL
[2024-12-10 15:01] LABS: ALB/GLOB Ratio 0.7 RATIO (0.9-2.4); AST(SGOT) 21 U/L (15-37); Alanine Aminotransfer ALT/SGPT 20 U/L (16-61); Albumin, Serum 3.2 g/dL (3.2-5.0); Alkaline Phosphatase 110 U/L (45-117); Anion Gap 5 (5-15); BUN 18 mg/dL (7-18); BUN/Creat Ratio 22.2 RATIO (10-20); Calcium,Total 9.4 mg/dL (8.5-10.1); Chloride 105 mmol/L (98-107); Cholesterol 107 mg/dL (200); Creatinine, Serum 0.81 mg/dL (0.70-1.30); EST Glomerular Filtration Rate 99 mL/min (>60); Est Glom Filt Rate - Afr Amer 119 mL/min (>60); Globulin 4.6 g/dL (2.2-4.2); Glucose 101 mg/dL (74-106); High Density Lipoprotein 71 mg/dL; Potassium 3.7 mmol/L (3.5-5.1); Protein, Total 7.8 g/dL (6.4-8.2); Sodium Level 140 mmol/L (136-145); Triglycerides 53 mg/dL; Very Low Density Lipoprotein 11 mg/dL (5-40)
== END | disposition home or self-care (01) ==
LOC: POLAB3 13:59
PROVIDERS: Internal Medicine Cardiovascular Disease; PCP Family Medicine Geriatric Medicine; Visit Provider Family Medicine Geriatric Medicine
DX: E78.5 Hyperlipidemia, unspecified (principal); E55.9 Vitamin D deficiency, unspecified; I10 Essential (primary) hypertension; Z79.01 Long term (current) use of 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s
CPT/HCPCS: 36415; 80053; 80061; 82306; 84443; 85025; 85610

== ENCOUNTER 2024-12-12 08:30 | Outpatient (RCR) | payer MEDICARE, SELFPAY ==
[2024-11-14 08:56] VITALS: BP 143/67; PULSE 66; RESP 18; TEMP 36.4; BMI 29.9
--- NOTE | 2024-11-14 09:37 | PCM.WC.HP ---
History of Present Illness Date of Service: 11/14/24 Chief Complaint: Venous stasis ulceration left lower extremity History of Wound: This is a 74-year-old male who presents to the wound care center for continued aid in healing of a venous stasis ulceration to the lateral aspect of the left lower extremity. Ulceration is secondary to chronic venous insufficiency and lower extremity edema. He had been unable to wear his compression stockings due to significant edema and previous heart failure. 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 This did lead to improvement in lower extremity edema however still does get swelling secondary to his chronic venous insufficiency which did lead to ulceration to the lateral aspect of the left leg. He had been undergoing local wound care in office over the course of 6 weeks with applications of Renuka however ulceration has failed to improve with this and compression stocking. He continues to change dressing daily with Renuka and does have visiting nursing to assist in dressing changes. States that he continues to wear his compression stocking and tries to elevate when possible. He does assist in care for his so elevation at all times of rest poses difficulty. Denies trauma to the leg. Denies N/V/F/chills/SOB. Denies further complaints. 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 RAFAEL on CPAP Chronic pain syndrome HLD (hyperlipidemia) Obesity (HFpEF) heart failure with preserved ejection fraction Longstanding persistent atrial fibrillation History of atrial fibrillation Anemia Congestive heart failure Medical non-compliance Compression fx, thoracic spine Hypertension Former smoker COPD (chronic obstructive pulmonary disease) Home Medications ?Medication ?Instructions ?Recorded ?Last Taken ?Type simvastatin 10 mg tablet 10 mg PO QHS cholesterol 09/06/22 02/22/24 History terazosin 2 mg capsule 2 mg PO QHS prostate 09/06/22 02/22/24 History lidocaine 5 % topical patch 1 patch topical DAILY pain #15 ea 09/08/22 06/03/24 Rx albuterol sulfate 90 mcg/actuation 1 puff inhalation Q4H PRN SOB 02/08/24 02/23/24 History aerosol inhaler tiotropium 2.5 mcg-olodaterol 2.5 1 puff inhalation BID breathing 02/08/24 Unknown History mcg/actuation mist for inhalation (Stiolto Respimat) acetaminophen 500 mg tablet 1,000 mg (2 x 500 mg) PO Q8 #0 tabs 03/06/24 Unknown Rx sennosides 8.6 mg-docusate sodium 2 tab PO BID 30 days #120 tabs 03/06/24 Unknown Rx 50 mg tablet (Stool Softener-Stimulant Laxative) warfarin 1 mg tablet (Jantoven) 0.5 mg PO DINNER 30 days #15 tabs 03/06/24 05/27/24 Rx warfarin 4 mg tablet (Jantoven) 4 mg PO DINNER 30 days #30 tabs 03/06/24 05/27/24 Rx ferrous sulfate 325 mg (65 mg 325 mg PO QDAY 03/25/24 Unknown History iron) tablet (FeroSul) oxycodone 10 mg tablet 10 mg PO TID PRN pain 03/25/24 06/03/24 History furosemide 40 mg tablet mg PO QDAY 08/26/24 Unknown History Allergy/AdvReac Type Severity Reaction Status Date / Time pramoxine Allergy Rash Verified 08/26/24 10:46 Family History Mother Cancer Father CAD (coronary artery disease) Heart disease Hypertension Myocardial infarction Surgical History S/P TAVR (transcatheter aortic valve replacement) History of bilateral cataract extraction History of cardiac radiofrequency ablation (RFA) History of tonsillectomy and adenoidectomy Social History household members: family Smoking Status: Former smoker how long ago did patient quit smoking: Quit ~ 35 yrs prior. alcohol intake: never substance use type: does not use ROS Constitutional Constitutional: Denies anorexia, chills, fatigue or fever(s) Eyes Eyes: Denies blurry vision, change in vision or double vision ENT HEENT: Denies dysphagia, nasal congestion, nasal discharge or sore throat Cardiovascular Cardiovascular: Denies chest pain, claudication or palpitations Respiratory/Chest Respiratory/Chest: Denies cough, productive cough or shortness of breath at rest Gastrointestinal Gastrointestinal: Denies abdominal pain, constipation, diarrhea, nausea or vomiting Genitourinary Genitourinary: Denies dysuria, hematuria or urinary frequency Musculoskeletal Musculoskeletal: Denies joint pain, joint stiffness or joint swelling Integumentary Integumentary: Denies lesions, pruritus or rash Neurologic Neurologic: Denies dizziness, numbness or seizures Psychiatric Psychiatric: Denies anxiety or depression Endocrine Endocrinology: Denies cold intolerance, heat intolerance or polyuria Hematologic/Lymphatic Hematologic/Lymphatic: Denies easy bleeding or easy bruising Vital Signs Vital Signs Vital Signs: 11/14/24 08:56 Temperature 97.6 F L Temperature Source Temporal Pulse Rate 66 Respiratory Rate 18 Blood Pressure 143/67 H Blood Pressure Mean 92 Blood Pressure Source Monitor Weight Weight: 100.344 kg Body Mass Index (BMI) 29.9 Physical Exam Const alert, oriented x3 and no apparent distress General Appearance: cooperative HEENT normocephalic Eyes General Eye: normal appearance of both eyes Neck General: normal visual inspection Lymph Lymphatic: no lymphadenopathy noted and no lymphedema noted Resp normal respiratory effort Cardio regular rate and regular rhythm Extremity no calf tenderness Extremity Narrative: Left lower extremity: Vascular: DP and PT pulses weakly palpable. CFT less than 5 seconds to digits. Normal temperature gradient. Hair growth is absent to digits. Neurologic: Gross sensation intact. Protective sensation is diminished secondary to diabetic peripheral polyneuropathy. Musculoskeletal: Muscle strength 5 of 5 age-appropriate. Decreased range of motion of the ankle joint in dorsiflexion with the knee extended without pain or crepitus. No pain to palpation of calf. Decreased range of motion of the first metatarsophalangeal joint in dorsiflexion achieving less than 5 degrees range of motion consistent with hallux limitus. No pain to palpation about the ulcerative site. Dermatologic: Skin is xerotic with hemosiderin deposition about the lower extremity secondary to chronic venous insufficiency/stasis. There is some mild nonpitting edema lower extremity/foot. There is an full-thickness ulceration to the lateral aspect of the lower extremity with healthy appearing granular layer with some serosanguineous drainage. No erythema, no purulent drainage, no malodor, no palpable fluctuance/bogginess. No signs of infection. Previous site of ulceration overlying the IPJ of the hallux remains healed. Skin no rashes or lesions noted and skin turgor normal General Skin Exam: venous stasis and dermatitis Neuro moves all extremities Debridement Note Debridement Note Post-Debridement Measurements and Additional Note: Post-Debridement Measurements/Treatment WC - Nurse 1 - General Ulcer Assessment Start: 11/14/24 08:55 Freq: Status: Active Protocol: LIZZY Activity Type Activity Date Activity User E-sign Co-sign Detail Recorded Client Recorded Date Recorded By Document 11/14/24 08:56 DL [id number] 11/14/24 09:12 DL 11/14/24 08:56 WC - Today's Visit Information Type of service Initial Visit Arrival Mode Ambulatory, Walker Transfer Assistance None Patient Identification Verified (Name & Yes ) Patient Requires Transmission-Based No Precautions Height and Weight Height 6 ft Weight 100.344 kg Weight in Pounds 221.2 lbs Weight Measurement Method Estimated by Patient Body Mass Index (BMI) 29.9 BMI Classification Overweight BSA - Daron 2.22 Vital Signs Temperature (97.8 F-99.1 F) 97.6 F L Temperature Source Temporal Pulse Rate (60-100) 66 Pulse Location Monitor Respiratory Rate (12-18) 18 Respiratory rate source Observation Blood Pressure (90/60-120/80) 143/67 H Blood Pressure Mean (mm Hg) 92 Source Monitor Pain Scale: 0-10 Numeric Is Patient Pain Free? Yes Neuropathy Assessment Feet - Top Side and Bottom <Entered> (a) Communication Assessment Preferred language Yoruba Able to Read Yes Able to Write Yes Communication Tools None Right Hearing Abillity Hard of Hearing Left Hearing Abillity Hard of Hearing Visual Assistive Devices None Teaching Assessment Preferences Verbal,Written, Demonstration Barriers to Learning None Readiness To Learn Good Willingness to Engage in Self Management Med Activies Readiness to Engage in Self Management Med Activities Anxiety Level Calm Cooperation Cooperative Perception Coherent Interest in Health Problem Asks Questions Education Importance Acknowledges Need Smoking Status Former smoker Is Patient Diabetic No Functional Assessment Recent Decline in Ability to Perform Denies Any Declines Culture/Spiritism/Protective Officer Cultural/Spiritism Needs that may affect No Treatment Plan Would you allow our hospital vegetable worker to No meet you for the purpose of spiritual/ emotional support? Protective Officer to contact place of buddhism No Teaching: Wound Center Dressing Your Wound -Person Taught Patient *Welcome to the Wound Center -Person Taught Patient (a) 1 - _ 2 - + WC - Nurse 1 - General Ulcer Measurement Start: 11/14/24 08:55 Freq: Status: Active Protocol: Activity Type Activity Date Activity User E-sign Co-sign Detail Recorded Client Recorded Date Recorded By Document 11/14/24 08:56 DL [id number] 11/14/24 09:12 DL 11/14/24 08:56 Wound Center Nurse 1 #1 LLE LAT -Current Size (cm) - Length 1.5 -Current Size (cm) - Width 1.2 -Current Size (cm) - Depth 0.2 -Total Square Cm 1.80 -Photo Taken Yes -Exudate Amt Medium -Exudate Type Serosanguineous -Wound Margin Thickened -Granulation Amt Large (67-100%) -Granulation Quality Red -Necrosis Amt Small (1-33%) -Necrotic Tissue Type Eschar -Structure Exposed N/A -Texture (Lyndsey-wound Skin Appearance) Scarring -Moisture (Lyndsey-wound Skin Appearance) Dry/Scaly -Color (Lyndsey-wound Skin Appearance) Hemosiderin Staining -Temperature (Lyndsey-wound Skin No Abnormality Appearance) (Pt Warm) -Tenderness on Palpation (Lyndsey-wound No Skin Appearance) -Ulcer Cleansing Soap and Water -Foul Odor after Cleansing No -Anesthetic Used 5% Lidocaine Gel Right Calf (cm) 35.4 Right Ankle (cm) 27.2 Left Calf (cm) 35.5 Left Ankle (cm) 26.7 WC - Nurse 2 - General Ulcer CM Notes Start: 11/14/24 08:55 Freq: Status: Active Protocol: Activity Type Activity Date Activity User E-sign Co-sign Detail Recorded Client Recorded Date Recorded By Document 11/14/24 09:20 [facility] [id number] 11/14/24 09:27 [facility] 11/14/24 09:20 Wound Center Nurse 2 #1 LLE LAT -Time 09:21 -Correct Patient Yes -Correct Side, Site, Position Yes -Correct Procedure Yes -Procedure Performed Yes -Type of Procedure Debridement -Clinical Debridement Subcutaneous -Tissue Removed Subcutaneous -Post Debridement (cm) - Length 1.9 -Post Debridement (cm) - Width 1.3 -Post Debridement (cm) - Depth 0.1 -Total Square (Post) (cm) 2.47 -Area of Debridement (cm) - Length 1.9 -Area of Debridement (cm) - Width 1.3 -Total Square (Area) (cm) 2.47 -Tunneling No -Undermining/Tunneling No -Circular Undermining No -Wound/Ulcer Outcome Not Healed -Ulcer Cleansing Rinsed/ Irrigated with Saline -Foul Odor after Cleansing No -Bioengineered Tissue No -Bleeding Controlled with Pressure -Treatment Response Procedure Tolerated Well -Debridement - Subq, 1st 20sq cm Yes Pain Scale: 0-10 Numeric Is Patient Pain Free? Yes Assessment/Plan Assessment/Plan (1) Non-pressure chronic ulcer of left calf with fat layer exposed: CODE(S): L97.222 - Non-pressure chronic ulcer of left calf with fat layer exposed (2) Venous insufficiency (chronic) (peripheral): CODE(S): I87.2 - Venous insufficiency (chronic) (peripheral) (3) Diabetes mellitus with diabetic polyneuropathy: CODE(S): E11.42 - Type 2 diabetes mellitus with diabetic polyneuropathy (4) Diabetes mellitus with ulcer of calf: CODE(S): E11.622 - Type 2 diabetes mellitus with other skin ulcer; L97.209 - Non-pressure chronic ulcer of unspecified calf with unspecified severity (5) Atrial fibrillation: CODE(S): I48.91 - Unspecified atrial fibrillation QUALIFIERS: Atrial fibrillation type: longstanding persistent Qualified Code(s): I48.11 - Longstanding persistent atrial fibrillation (6) Debility: CODE(S): R53.81 - Other malaise (7) Bilateral lower extremity edema: CODE(S): R60.0 - Localized edema PLAN: Plan Patient seen and evaluated Predebridement measurement: 1.8 cm x 1.2 cm x 0.1 cm Ulceration underwent debridement as noted in the clinical panel above. Postdebridement measurements 1.9 cm x 1.3 cm x 0.1 cm. Collagen powder and hydrogel applied to the ulcerative base and dressed with Aquacel Ag and dry sterile dressing. 3M compression layer applied to left lower extremity, discussed not to get this dressing wet. Tubigrip compression applied to right lower extremity. I do feel he would aid from application of an advanced wound care product, applied for EpiFix. Once ulceration has healed recommend continued wearing of compression stockings to prevent recidivism. Have discussed updating stockings every 6 months. Will continue to elevate lower extremities at times of rest Recommended continued intake of protein to aid in wound healing. Discussed signs and symptoms of infection with patient and son. Discussed if he notices increasing redness about the ulcerative site that spreads up the leg, any purulent drainage from the ulcerative site, increasing foul odor from the ulcerative site, or if he experiences fever greater than 101 degree accompanied by nausea, vomiting, chills that these are signs of a progressing infection and he should report to the ED for IV antibiotics and further evaluation. He is understanding of this today. The following work up and care recommendations were made: Dressing: Collagen powder and hydrogel, Aquacel Ag, dry sterile dressing, 3M compression wrap. Wash: Do not get left lower extremity wet Tissue growth optimization: Collagen powder and hydrogel Offload: 3M compression wrap and elevation of the lower extremities Vascular: DP and PT pulses weakly palpable and cap fill less than 5 seconds to digits, do not feel this is impacting healing as issue is related to venous stasis/edema Edema: 3M compression wrap and elevation of lower extremities Infection: No signs of infection Pain: May take Tylenol for discomfort. No pain about the ulcerative site secondary to diabetic peripheral polyneuropathy Host factors: DM type II with peripheral polyneuropathy, A-fib, chronic venous insufficiency/stasis, lower extremity edema I answered all the patient's questions. To return to the wound healing center in 1 week or call sooner if the patient has any questions or concerns.
--- NOTE | 2024-11-18 11:37 | WC ---
PHOTO 11/14/24 LEFT LATERAL LE (I)
[2024-11-21 08:33] VITALS: BP 127/57; PULSE 68; RESP 18; TEMP 36.4; BMI 29.9
--- NOTE | 2024-11-21 09:08 | PCM.WC.PN ---
History of Present Illness Date of Service: 11/21/24 Chief Complaint: Venous stasis ulceration left lower extremity History of Wound: This is a 74-year-old male who presents to the wound care center for continued aid in healing of a venous stasis ulceration to the lateral aspect of the left lower extremity. Ulceration is secondary to chronic venous insufficiency and lower extremity edema. He had been unable to wear his compression stockings due to significant edema and previous heart failure. 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 This did lead to improvement in lower extremity edema however still does get swelling secondary to his chronic venous insufficiency which did lead to ulceration to the lateral aspect of the left leg. He had been undergoing local wound care in office over the course of 6 weeks with applications of Renuka however ulceration has failed to improve with this and compression stocking. He continues to change dressing daily with Renuka and does have visiting nursing to assist in dressing changes. States that he continues to wear his compression stocking and tries to elevate when possible. He does assist in care for his so elevation at all times of rest poses difficulty. Denies trauma to the leg. Denies N/V/F/chills/SOB. Denies further complaints. Subjective Subjective This is a 74-year-old male who returns to the wound care center today for continued care of left lower extremity ulceration secondary to chronic venous stasis. He is assisted by his son today. He states that visiting nursing is continuing to assist in dressing changes. States that he has tolerated the 3M compression wrap well. Denies constitutional symptoms. Denies further complaints. Objective Data Objective Data Vital Signs: Vital Signs Temp Pulse Resp BP 97.6 F L 68 18 127/57 H 11/21/24 08:33 11/21/24 08:33 11/21/24 08:33 11/21/24 08:33 Weight: 100.344 kg Body Mass Index (BMI) 29.9 Physical Exam Const alert, oriented x3 and no apparent distress General Appearance: cooperative HEENT normocephalic Eyes General Eye: normal appearance of both eyes Neck General: normal visual inspection Lymph Lymphatic: no lymphadenopathy noted and no lymphedema noted Resp normal respiratory effort Cardio regular rate and regular rhythm Extremity no calf tenderness Extremity Narrative: Left lower extremity: Vascular: DP and PT pulses weakly palpable. CFT less than 5 seconds to digits. Normal temperature gradient. Hair growth is absent to digits. Neurologic: Gross sensation intact. Protective sensation is diminished secondary to diabetic peripheral polyneuropathy. Musculoskeletal: Muscle strength 5 of 5 age-appropriate. Decreased range of motion of the ankle joint in dorsiflexion with the knee extended without pain or crepitus. No pain to palpation of calf. Decreased range of motion of the first metatarsophalangeal joint in dorsiflexion achieving less than 5 degrees range of motion consistent with hallux limitus. No pain to palpation about the ulcerative site. Dermatologic: Skin is xerotic with hemosiderin deposition about the lower extremity secondary to chronic venous insufficiency/stasis. There is some mild nonpitting edema lower extremity/foot. There is an full-thickness ulceration to the lateral aspect of the lower extremity with healthy appearing granular layer with some serosanguineous drainage. No erythema, no purulent drainage, no malodor, no palpable fluctuance/bogginess. No signs of infection. Previous site of ulceration overlying the IPJ of the hallux remains healed. Skin no rashes or lesions noted and skin turgor normal General Skin Exam: venous stasis and dermatitis Neuro moves all extremities Debridement Note Debridement Note Wound debrided: Left lower extremity Laterality: Left Wound Grade/Stage: Swain stage I Type of Debridement: Excisional debridement Anesthesia Used: 5% Lidocaine Gel Depth: Down to and including healthy tissue and in the subcutaneous layer Percentage of wound debrided: 100 Instrument Used: 5mm curette Tissue Removed: Fibrous, devitalized subcutaneous, biofilm, slough Severity: Fat Layer Exposed Amount of bleeding with debridement: Mild Bleeding Controlled with: Compression and gauze Patient tolerated procedure: Patient tolerated procedure well Post-Debridement Measurements and Additional Note: Post-Debridement Measurements/Treatment - Nurse 1 - General Ulcer Assessment Start: 11/14/24 08:55 Freq: Status: Active Protocol: LIZZY Activity Type Activity Date Activity User E-sign Co-sign Detail Recorded Client Recorded Date Recorded By Document 11/14/24 08:56 DL [id number] 11/14/24 09:12 DL Document 11/21/24 08:33 DL [id number] 11/21/24 08:42 DL 11/14/24 11/21/24 08:56 08:33 - Today's Visit Information Type of service Initial Visit Follow-up Visit (Physician/NETWORK CONTROL SUPERVISOR ) Arrival Mode Ambulatory, Ambulatory, Walker Walker Transfer Assistance None None Patient Identification Verified (Name & Yes Yes ) Patient Requires Transmission-Based No No Precautions Height and Weight Height 6 ft Weight 100.344 kg Weight in Pounds 221.2 lbs Weight Measurement Method Estimated by Patient Body Mass Index (BMI) 29.9 29.9 BMI Classification Overweight Overweight BSA - Daron 2.22 Vital Signs Temperature (97.8 F-99.1 F) 97.6 F L 97.6 F L Temperature Source Temporal Temporal Pulse Rate (60-100) 66 68 Pulse Location Monitor Monitor Respiratory Rate (12-18) 18 18 Respiratory rate source Observation Blood Pressure (90/60-120/80) 143/67 H 127/57 H Blood Pressure Mean (mm Hg) 92 80 Source Monitor Monitor History Since Last Visit- (Skip if this is Patient's initial visit) Have you changed medications since your No last visit? Any new allergies or adverse reactions No Had a fall/change in ADL's that may No increase risk of falls Signs or symptoms of abuse and/or No neglect since last visit Have you been in the hospital since your No last visit? Has dressing in place as prescribed Yes Has compression in place as prescribed Yes Has offloadiing in place as prescribed Yes Experienced any changes in pain level or No management Pain Scale: 0-10 Numeric Is Patient Pain Free? Yes Yes Neuropathy Assessment Feet - Top Side and Bottom <Entered> (a) Communication Assessment Preferred language Surinamese Able to Read Yes Able to Write Yes Communication Tools None Right Hearing Abillity Hard of Hearing Left Hearing Abillity Hard of Hearing Visual Assistive Devices None Teaching Assessment Preferences Verbal,Written, Demonstration Barriers to Learning None Readiness To Learn Good Willingness to Engage in Self Management Med Activies Readiness to Engage in Self Management Med Activities Anxiety Level Calm Cooperation Cooperative Perception Coherent Interest in Health Problem Asks Questions Education Importance Acknowledges Need Smoking Status Former smoker Is Patient Diabetic No Functional Assessment Recent Decline in Ability to Perform Denies Any Declines Culture/Bahai/Workers Compensation Analyst Cultural/Bahai Needs that may affect No Treatment Plan Would you allow our hospital software engineering analyst to No meet you for the purpose of spiritual/ emotional support? Workers Compensation Analyst to contact place of jehovah's witness No Teaching: Wound Center Dressing Your Wound -Person Taught Patient *Welcome to the Wound Center -Person Taught Patient (a) 1 - _ 2 - + WC - Nurse 1 - General Ulcer Measurement Start: 11/14/24 08:55 Freq: Status: Active Protocol: Activity Type Activity Date Activity User E-sign Co-sign Detail Recorded Client Recorded Date Recorded By Document 11/14/24 08:56 DL [id number] 11/14/24 09:12 DL Document 11/21/24 08:33 DL [id number] 11/21/24 08:42 DL 11/14/24 11/21/24 08:56 08:33 Wound Center Nurse 1 #1 LLE LAT -Current Size (cm) - Length 1.5 1 -Current Size (cm) - Width 1.2 1.3 -Current Size (cm) - Depth 0.2 0.2 -Total Square Cm 1.80 1.3 -Photo Taken Yes -Exudate Amt Medium Medium -Exudate Type Serosanguineous Serosanguineous -Wound Margin Thickened Distinct, Outline Attached -Granulation Amt Large (67-100%) Large (67-100%) -Granulation Quality Red Red -Necrosis Amt Small (1-33%) None Present (0 %) -Necrotic Tissue Type Eschar -Structure Exposed N/A N/A -Texture (Lyndsey-wound Skin Appearance) Scarring Scarring -Moisture (Lyndsey-wound Skin Appearance) Dry/Scaly Dry/Scaly -Color (Lyndsey-wound Skin Appearance) Hemosiderin Hemosiderin Staining Staining -Temperature (Lyndsey-wound Skin No Abnormality Appearance) (Pt Warm) -Tenderness on Palpation (Lyndsey-wound No Skin Appearance) -Ulcer Cleansing Soap and Water Soap and Water -Foul Odor after Cleansing No No -Anesthetic Used 5% Lidocaine 4% Lidocaine Gel Solution Right Calf (cm) 35.4 38.8 Right Ankle (cm) 27.2 27.3 Left Calf (cm) 35.5 38.2 Left Ankle (cm) 26.7 27 WC - Nurse 2 - General Ulcer CM Notes Start: 11/14/24 08:55 Freq: Status: Active Protocol: Activity Type Activity Date Activity User E-sign Co-sign Detail Recorded Client Recorded Date Recorded By Document 11/14/24 09:20 [facility] [id number] 11/14/24 09:27 BM Document 11/21/24 08:55 [facility] [id number] 11/21/24 09:02 BMF 11/14/24 11/21/24 09:20 08:55 Wound Center Nurse 2 #1 LLE LAT -Time 09:21 08:56 -Correct Patient Yes Yes -Correct Side, Site, Position Yes Yes -Correct Procedure Yes Yes -Procedure Performed Yes Yes -Type of Procedure Debridement Debridement -Clinical Debridement Subcutaneous Subcutaneous -Tissue Removed Subcutaneous Subcutaneous -Post Debridement (cm) - Length 1.9 2 -Post Debridement (cm) - Width 1.3 1.1 -Post Debridement (cm) - Depth 0.1 0.1 -Total Square (Post) (cm) 2.47 2.2 -Area of Debridement (cm) - Length 1.9 2 -Area of Debridement (cm) - Width 1.3 1.1 -Total Square (Area) (cm) 2.47 2.2 -Tunneling No No -Undermining/Tunneling No No -Circular Undermining No No -Wound/Ulcer Outcome Not Healed Not Healed -Ulcer Cleansing Rinsed/ Rinsed/ Irrigated with Irrigated with Saline Saline -Foul Odor after Cleansing No No -Bioengineered Tissue No No -Bleeding Controlled with Pressure Pressure -Treatment Response Procedure Procedure Tolerated Well Tolerated Well -Debridement - Subq, 1st 20sq cm Yes Yes Pain Scale: 0-10 Numeric Is Patient Pain Free? Yes Yes - Nurse 3 - General Ulcer D/C NN Start: 11/14/24 08:55 Freq: Status: Active Protocol: Activity Type Activity Date Activity User E-sign Co-sign Detail Recorded Client Recorded Date Recorded By Document 11/14/24 09:59 DL [id number] 11/14/24 10:00 DL 11/14/24 09:59 Wound Care Center Nurse 3 #1 E LAT -Ulcer Cleansing Rinsed/ Irrigated with Saline -Foul Odor after Cleansing No -Primary Dressing Applied Aquacel Extra,C Hydrogel ($), Collagen Powder ($) -Primary Dressing Covered/Secured with Dry Gauze & Roll Gauze, Secured with Tape -Aquacel Extra 1 Right -Tubular Bandage Single Layer -Size of Tubigrip Used Size E -Size E ($) 1 Left -Multi-Layered Wrap Application Multi-Layer Comp - Left ($) Treatment Response Procedure Tolerated Well Pain Scale: 0-10 Numeric Is Patient Pain Free? Yes WC - Visit Discharge Discharge Condition Stable Ambulatory Status Ambulatory, Walker Transportation Private Auto Facility Type Home Health Orders Sent Yes Assessment/Plan Assessment/Plan (1) Non-pressure chronic ulcer of left calf with fat layer exposed: CODE(S): L97.222 - Non-pressure chronic ulcer of left calf with fat layer exposed (2) Venous insufficiency (chronic) (peripheral): CODE(S): I87.2 - Venous insufficiency (chronic) (peripheral) (3) Diabetes mellitus with diabetic polyneuropathy: CODE(S): E11.42 - Type 2 diabetes mellitus with diabetic polyneuropathy (4) Diabetes mellitus with ulcer of calf: CODE(S): E11.622 - Type 2 diabetes mellitus with other skin ulcer; L97.209 - Non-pressure chronic ulcer of unspecified calf with unspecified severity (5) Atrial fibrillation: CODE(S): I48.91 - Unspecified atrial fibrillation QUALIFIERS: Atrial fibrillation type: longstanding persistent Qualified Code(s): I48.11 - Longstanding persistent atrial fibrillation (6) Debility: CODE(S): R53.81 - Other malaise (7) Bilateral lower extremity edema: CODE(S): R60.0 - Localized edema PLAN: Plan Patient seen and evaluated Predebridement measurement: 1.9 cm x 1.0 cm x 0.1 cm Ulceration underwent debridement as noted in the clinical panel above. Postdebridement measurements 2.0 cm x 1.1 cm x 0.1 cm. Collagen powder and hydrogel applied to the ulcerative base and dressed with Aquacel Ag and dry sterile dressing. 3M compression layer applied to left lower extremity, discussed not to get this dressing wet. Tubigrip compression applied to right lower extremity. There is some slight reduction in size of the ulcer versus previous visit. I do feel he would aid in healing from application of an advanced wound care product, applied for EpiFix. We are awaiting approval from insurance. Once ulceration has healed recommend continued wearing of compression stockings to prevent recidivism. Have discussed updating stockings every 6 months. Will continue to elevate lower extremities at times of rest Recommended continued intake of protein to aid in wound healing. Discussed signs and symptoms of infection with patient and son. Discussed if he notices increasing redness about the ulcerative site that spreads up the leg, any purulent drainage from the ulcerative site, increasing foul odor from the ulcerative site, or if he experiences fever greater than 101 degree accompanied by nausea, vomiting, chills that these are signs of a progressing infection and he should report to the ED for IV antibiotics and further evaluation. He is understanding of this today. The following work up and care recommendations were made: Dressing: Collagen powder and hydrogel, Aquacel Ag, dry sterile dressing, 3M compression wrap. Wash: Do not get left lower extremity wet Tissue growth optimization: Collagen powder and hydrogel Offload: 3M compression wrap and elevation of the lower extremities Vascular: DP and PT pulses weakly palpable and cap fill less than 5 seconds to digits, do not feel this is impacting healing as issue is related to venous stasis/edema Edema: 3M compression wrap and elevation of lower extremities Infection: No signs of infection Pain: May take Tylenol for discomfort. No pain about the ulcerative site secondary to diabetic peripheral polyneuropathy Host factors: DM type II with peripheral polyneuropathy, A-fib, chronic venous insufficiency/stasis, lower extremity edema Visiting nursing will assist in dressing changes. I answered all the patient's questions. To return to the wound healing center in 1 week or call sooner if the patient has any questions or concerns.
[2024-11-28 08:36] VITALS: BP 103/57; PULSE 76; RESP 18; TEMP 36.1; BMI 29.9
--- NOTE | 2024-11-28 12:20 | PN.PCM_ITS ---
History of Present Illness Date of Service: 11/28/24 Chief Complaint: Venous stasis ulceration left lower extremity History of Wound: This is a 74-year-old male who presents to the wound care center for continued aid in healing of a venous stasis ulceration to the lateral aspect of the left lower extremity. Ulceration is secondary to chronic venous insufficiency and lower extremity edema. He had been unable to wear his compression stockings due to significant edema and previous heart failure. 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 This did lead to improvement in lower extremity edema however still does get swelling secondary to his chronic venous insufficiency which did lead to ulceration to the lateral aspect of the left leg. He had been undergoing local wound care in office over the course of 6 weeks with applications of Renuka however ulceration has failed to improve with this and compression stocking. He continues to change dressing daily with Renuka and does have visiting nursing to assist in dressing changes. States that he continues to wear his compression stocking and tries to elevate when possible. He does assist in care for his so elevation at all times of rest poses difficulty. Denies trauma to the leg. Denies N/V/F/chills/SOB. Denies further complaints. Subjective Subjective This is a 74-year-old male who returns to the wound care center today for continued care of left lower extremity ulceration secondary to chronic venous stasis. He is assisted by his son today. He states that visiting nursing is continuing to assist in dressing changes. States that continues to tolerate the 3M compression wrap well. He feels his wound is improving with better compression. Denies constitutional symptoms. Denies further complaints. Objective Data Objective Data Vital Signs: Vital Signs Temp Pulse Resp BP 97 F L 76 18 103/57 L 11/28/24 08:36 11/28/24 08:36 11/28/24 08:36 11/28/24 08:36 Weight: 100.344 kg Body Mass Index (BMI) 29.9 Physical Exam Const alert, oriented x3 and no apparent distress General Appearance: cooperative HEENT normocephalic Eyes General Eye: normal appearance of both eyes Neck General: normal visual inspection Lymph Lymphatic: no lymphadenopathy noted and no lymphedema noted Resp normal respiratory effort Cardio regular rate and regular rhythm Extremity no calf tenderness Extremity Narrative: Left lower extremity: Vascular: DP and PT pulses weakly palpable. CFT less than 5 seconds to digits. Normal temperature gradient. Hair growth is absent to digits. Neurologic: Gross sensation intact. Protective sensation is diminished secondary to diabetic peripheral polyneuropathy. Musculoskeletal: Muscle strength 5 of 5 age-appropriate. Decreased range of motion of the ankle joint in dorsiflexion with the knee extended without pain or crepitus. No pain to palpation of calf. Decreased range of motion of the first metatarsophalangeal joint in dorsiflexion achieving less than 5 degrees range of motion consistent with hallux limitus. No pain to palpation about the ulcerative site. Dermatologic: Skin is xerotic with hemosiderin deposition about the lower extremity secondary to chronic venous insufficiency/stasis. There is some mild nonpitting edema lower extremity/foot. There is an full-thickness ulceration to the lateral aspect of the lower extremity with healthy appearing granular layer with some serosanguineous drainage. No erythema, no purulent drainage, no malodor, no palpable fluctuance/bogginess. No signs of infection. Previous site of ulceration overlying the IPJ of the hallux remains healed. Skin no rashes or lesions noted and skin turgor normal General Skin Exam: venous stasis and dermatitis Neuro moves all extremities Debridement Note Debridement Note Wound debrided: Left lower extremity Laterality: Left Wound Grade/Stage: Swain stage I Type of Debridement: Excisional debridement Anesthesia Used: 5% Lidocaine Gel Depth: Down to and including healthy tissue and in the subcutaneous layer Percentage of wound debrided: 100 Instrument Used: 5mm curette Tissue Removed: Fibrous, devitalized subcutaneous, biofilm, slough Severity: Fat Layer Exposed Amount of bleeding with debridement: Mild Bleeding Controlled with: Compression and gauze Patient tolerated procedure: Patient tolerated procedure well Post-Debridement Measurements and Additional Note: Post-Debridement Measurements/Treatment WC - Nurse 1 - General Ulcer Assessment Start: 11/14/24 08:55 Freq: Status: Active Protocol: LIZZY Activity Type Activity Date Activity User E-sign Co-sign Detail Recorded Client Recorded Date Recorded By Document 11/14/24 08:56 DL [id number] 11/14/24 09:12 DL Document 11/21/24 08:33 DL [id number] 11/21/24 08:42 DL Document 11/28/24 08:36 RB [id number] 11/28/24 08:47 RB 11/14/24 11/21/24 11/28/24 08:56 08:33 08:36 WC - Today's Visit Information Type of service Initial Visit Follow-up Visit Follow-up Visit (Physician/SKEIN INSPECTOR (Physician/SKEIN INSPECTOR ) ) Arrival Mode Ambulatory, Ambulatory, Ambulatory, Walker Walker Walker Transfer Assistance None None None Patient Identification Verified (Name & Yes Yes Yes ) Patient Requires Transmission-Based No No No Precautions Height and Weight Height 6 ft Weight 100.344 kg Weight in Pounds 221.2 lbs Weight Measurement Method Estimated by Patient Body Mass Index (BMI) 29.9 29.9 29.9 BMI Classification Overweight Overweight Overweight BSA - Daron 2.22 Vital Signs Temperature (97.8 F-99.1 F) 97.6 F L 97.6 F L 97 F L Temperature Source Temporal Temporal Temporal Pulse Rate (60-100) 66 68 76 Pulse Location Monitor Monitor Monitor Respiratory Rate (12-18) 18 18 18 Respiratory rate source Observation Observation Blood Pressure (90/60-120/80) 143/67 H 127/57 H 103/57 L Blood Pressure Mean (mm Hg) 92 80 72 Source Monitor Monitor Monitor Position Semi-Fowlers Blood Pressure Location Left Arm History Since Last Visit- (Skip if this is Patient's initial visit) Have you changed medications since your No No last visit? Any new allergies or adverse reactions No No Had a fall/change in ADL's that may No No increase risk of falls Signs or symptoms of abuse and/or No No neglect since last visit Have you been in the hospital since your No No last visit? Has dressing in place as prescribed Yes Yes Has compression in place as prescribed Yes Yes Has offloadiing in place as prescribed Yes N/A Experienced any changes in pain level or No No management Left Footwear Regular Shoe Right Footwear Regular Shoe Pain Scale: 0-10 Numeric Is Patient Pain Free? Yes Yes No shoulders and back -Description Aching -Intensity 9 -Duration (hours) Acute -Pain Behavior Withdrawal from Touch -Pain Aggravating Factors ADL's -Alleviating Factors/Interventions Medication -Effectiveness of Alleviating Factor/ Moderately Intervention effective Neuropathy Assessment Feet - Top Side and Bottom <Entered> (a) Communication Assessment Preferred language Armenian Able to Read Yes Able to Write Yes Communication Tools None Right Hearing Abillity Hard of Hearing Left Hearing Abillity Hard of Hearing Visual Assistive Devices None Teaching Assessment Preferences Verbal,Written, Demonstration Barriers to Learning None Readiness To Learn Good Willingness to Engage in Self Management Med Activies Readiness to Engage in Self Management Med Activities Anxiety Level Calm Cooperation Cooperative Perception Coherent Interest in Health Problem Asks Questions Education Importance Acknowledges Need Smoking Status Former smoker Is Patient Diabetic No Functional Assessment Recent Decline in Ability to Perform Denies Any Declines Culture/Adventist/Licensed Nurse Practitioner Cultural/Adventist Needs that may affect No Treatment Plan Would you allow our hospital pathology assistant to No meet you for the purpose of spiritual/ emotional support? Licensed Nurse Practitioner to contact place of latter day No Teaching: Wound Center Dressing Your Wound -Person Taught Patient *Welcome to the Wound Center -Person Taught Patient (a) 1 - _ 2 - + WC - Nurse 1 - General Ulcer Measurement Start: 11/14/24 08:55 Freq: Status: Active Protocol: Activity Type Activity Date Activity User E-sign Co-sign Detail Recorded Client Recorded Date Recorded By Document 11/14/24 08:56 DL [id number] 11/14/24 09:12 DL Document 11/21/24 08:33 DL [id number] 11/21/24 08:42 DL Document 11/28/24 08:36 RB [id number] 11/28/24 08:47 RB 11/14/24 11/21/24 11/28/24 08:56 08:33 08:36 Wound Center Nurse 1 #1 LLE LAT -Combined with other wound No -Current Size (cm) - Length 1.5 1 1.2 -Current Size (cm) - Width 1.2 1.3 0.7 -Current Size (cm) - Depth 0.2 0.2 0.1 -Total Square Cm 1.80 1.3 0.84 -Photo Taken Yes Yes -Tunneling No -Undermining/Tunneling No -Circular Undermining No -Exudate Amt Medium Medium Medium -Exudate Type Serosanguineous Serosanguineous Serosanguineous -Wound Margin Thickened Distinct, Distinct, Outline Outline Attached Attached -Granulation Amt Large (67-100%) Large (67-100%) Medium (34-66%) -Granulation Quality Red [place],Red -Slough/Fibrin Yes -Necrosis Amt Small (1-33%) None Present (0 Small (1-33%) %) -Necrotic Tissue Type Eschar Adherent Slough -Structure Exposed N/A N/A N/A -Texture (Lyndsey-wound Skin Appearance) Scarring Scarring Assessed -Moisture (Lyndsey-wound Skin Appearance) Dry/Scaly Dry/Scaly Dry/Scaly -Color (Lyndsey-wound Skin Appearance) Hemosiderin Hemosiderin Assessed Staining Staining -Temperature (Lyndsey-wound Skin No Abnormality No Abnormality Appearance) (Pt Warm) (Pt Warm) -Tenderness on Palpation (Lyndsey-wound No No Skin Appearance) -Ulcer Cleansing Soap and Water Soap and Water Wound Cleanser -Foul Odor after Cleansing No No No -Anesthetic Used 5% Lidocaine 4% Lidocaine 5% Lidocaine Gel Solution Gel Lower Limb Edema Present Yes Right Calf (cm) 35.4 38.8 Right Ankle (cm) 27.2 27.3 Left Calf (cm) 35.5 38.2 40 Left Ankle (cm) 26.7 27 27 WC - Nurse 2 - General Ulcer CM Notes Start: 11/14/24 08:55 Freq: Status: Active Protocol: Activity Type Activity Date Activity User E-sign Co-sign Detail Recorded Client Recorded Date Recorded By Document 11/14/24 09:20 [employer] [id number] 11/14/24 09:27 [employer] Document 11/21/24 08:55 [employer] [id number] 11/21/24 09:02 [employer] Document 11/28/24 09:17 [employer] [id number] 11/28/24 09:22 [employer] 11/14/24 11/21/24 11/28/24 09:20 08:55 09:17 Wound Center Nurse 2 #1 LLE LAT -Time 09:21 08:56 09:18 -Correct Patient Yes Yes Yes -Correct Side, Site, Position Yes Yes Yes -Correct Procedure Yes Yes Yes -Procedure Performed Yes Yes Yes -Type of Procedure Debridement Debridement Debridement -Clinical Debridement Subcutaneous Subcutaneous Subcutaneous -Tissue Removed Subcutaneous Subcutaneous Subcutaneous -Post Debridement (cm) - Length 1.9 2 1 -Post Debridement (cm) - Width 1.3 1.1 0.6 -Post Debridement (cm) - Depth 0.1 0.1 0.1 -Total Square (Post) (cm) 2.47 2.2 0.6 -Area of Debridement (cm) - Length 1.9 2 1 -Area of Debridement (cm) - Width 1.3 1.1 0.6 -Total Square (Area) (cm) 2.47 2.2 0.6 -Tunneling No No No -Undermining/Tunneling No No No -Circular Undermining No No No -Wound/Ulcer Outcome Not Healed Not Healed Not Healed -Ulcer Cleansing Rinsed/ Rinsed/ Rinsed/ Irrigated with Irrigated with Irrigated with Saline Saline Saline -Foul Odor after Cleansing No No No -Bioengineered Tissue No No No -Bleeding Controlled with Pressure Pressure Pressure -Treatment Response Procedure Procedure Procedure Tolerated Well Tolerated Well Tolerated Well -Debridement - Subq, 1st 20sq cm Yes Yes Yes Pain Scale: 0-10 Numeric Is Patient Pain Free? Yes Yes Yes - Nurse 3 - General Ulcer D/C NN Start: 11/14/24 08:55 Freq: Status: Active Protocol: Activity Type Activity Date Activity User E-sign Co-sign Detail Recorded Client Recorded Date Recorded By Document 11/14/24 09:59 DL [id number] 11/14/24 10:00 DL Document 11/21/24 09:17 DL [id number] 11/21/24 09:18 DL Document 11/28/24 09:25 KW [id number] 11/28/24 09:25 KW Edit Result 11/28/24 09:25 KW (1) [id number] 11/28/24 09:26 KW (1) Right - Tubular Bandage Single Layer => - Size of Tubigrip Used Size E => - Size E ($) 1 => - Other => pt own tubigrip 11/14/24 11/21/24 11/28/24 09:59 09:17 09:25 Wound Care Center Nurse 3 #1 LLE LAT -Ulcer Cleansing Rinsed/ Irrigated with Saline -Foul Odor after Cleansing No No -Primary Dressing Applied Aquacel Extra,C Hydrogel ($), Collagen Powder ($) -Other Dressing purachol powder mixed with hydrogel -Primary Dressing Covered/Secured with Dry Gauze & Dry Gauze & Dry Gauze Roll Gauze, Roll Gauze Secured with Tape -Aquacel Extra 1 Right -Tubular Bandage Single Layer Single Layer -Size of Tubigrip Used Size E Size E -Size E ($) 1 1 -Other pt own tubigrip Left -Multi-Layered Wrap Application Multi-Layer Multi-Layer Multi-Layer Comp - Left ($) Comp - Left ($) Comp - Left ($) Treatment Response Procedure Procedure Tolerated Well Tolerated Well Pain Scale: 0-10 Numeric Is Patient Pain Free? Yes Yes Yes WC - Visit Discharge Discharge Condition Stable Stable Stable Ambulatory Status Ambulatory, Ambulatory, Ambulatory, Walker Walker Walker Transportation Private Auto Private Auto Private Auto Accompanied by son Medication Reconcilliation completed & No provided to patient/care provider Clinical Summary of Care Provided Yes Facility Type Home Health Home Health Orders Sent Yes Yes Assessment/Plan Assessment/Plan (1) Non-pressure chronic ulcer of left calf with fat layer exposed: CODE(S): L97.222 - Non-pressure chronic ulcer of left calf with fat layer exposed (2) Venous insufficiency (chronic) (peripheral): CODE(S): I87.2 - Venous insufficiency (chronic) (peripheral) (3) Diabetes mellitus with diabetic polyneuropathy: CODE(S): E11.42 - Type 2 diabetes mellitus with diabetic polyneuropathy (4) Diabetes mellitus with ulcer of calf: CODE(S): E11.622 - Type 2 diabetes mellitus with other skin ulcer; L97.209 - Non-pressure chronic ulcer of unspecified calf with unspecified severity (5) Atrial fibrillation: CODE(S): I48.91 - Unspecified atrial fibrillation QUALIFIERS: Atrial fibrillation type: longstanding persistent Qualified Code(s): I48.11 - Longstanding persistent atrial fibrillation (6) Debility: CODE(S): R53.81 - Other malaise (7) Bilateral lower extremity edema: CODE(S): R60.0 - Localized edema PLAN: Plan Patient seen and evaluated Predebridement measurement: 0.9 cm x 0.5 cm x 0.1 cm Ulceration underwent debridement as noted in the clinical panel above. Postdebridement measurements 1.0 cm x 0.6 cm x 0.1 cm. Collagen powder and hydrogel applied to the ulcerative base and dressed with Aquacel Ag and dry sterile dressing. 3M compression layer applied to left lower extremity, discussed not to get this dressing wet. Tubigrip compression applied to right lower extremity. There is reduction in size of the ulcer versus previous visit. I do feel he would aid in healing from application of an advanced wound care product, applied for EpiFix. We are awaiting approval from insurance. Once ulceration has healed recommend continued wearing of compression stockings to prevent recidivism. Have discussed updating stockings every 6 months. Will continue to elevate lower extremities at times of rest Recommended continued intake of protein to aid in wound healing. Discussed signs and symptoms of infection with patient and son. Discussed if he notices increasing redness about the ulcerative site that spreads up the leg, any purulent drainage from the ulcerative site, increasing foul odor from the ulcerative site, or if he experiences fever greater than 101 degree accompanied by nausea, vomiting, chills that these are signs of a progressing infection and he should report to the ED for IV antibiotics and further evaluation. He is understanding of this today. The following work up and care recommendations were made: Dressing: Collagen powder and hydrogel, Aquacel Ag, dry sterile dressing, 3M compression wrap. Wash: Do not get left lower extremity wet Tissue growth optimization: Collagen powder and hydrogel Offload: 3M compression wrap and elevation of the lower extremities Vascular: DP and PT pulses weakly palpable and cap fill less than 5 seconds to digits, do not feel this is impacting healing as issue is related to venous stasis/edema Edema: 3M compression wrap and elevation of lower extremities Infection: No signs of infection Pain: May take Tylenol for discomfort. No pain about the ulcerative site secondary to diabetic peripheral polyneuropathy Host factors: DM type II with peripheral polyneuropathy, A-fib, chronic venous insufficiency/stasis, lower extremity edema Visiting nursing will assist in dressing changes. I answered all the patient's questions. To return to the wound healing center in 1 week or call sooner if the patient has any questions or concerns.
[2024-12-05 08:26] VITALS: BP 120/58; PULSE 84; RESP 18; TEMP 37.1; BMI 29.9
--- NOTE | 2024-12-05 08:41 | PN.PCM_ITS ---
History of Present Illness Date of Service: 12/05/24 Chief Complaint: Venous stasis ulceration left lower extremity History of Wound: This is a 74-year-old male who presents to the wound care center for continued aid in healing of a venous stasis ulceration to the lateral aspect of the left lower extremity. Ulceration is secondary to chronic venous insufficiency and lower extremity edema. He had been unable to wear his compression stockings due to significant edema and previous heart failure. 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 This did lead to improvement in lower extremity edema however still does get swelling secondary to his chronic venous insufficiency which did lead to ulceration to the lateral aspect of the left leg. He had been undergoing local wound care in office over the course of 6 weeks with applications of Renuka however ulceration has failed to improve with this and compression stocking. He continues to change dressing daily with Renuka and does have visiting nursing to assist in dressing changes. States that he continues to wear his compression stocking and tries to elevate when possible. He does assist in care for his so elevation at all times of rest poses difficulty. Denies trauma to the leg. Denies N/V/F/chills/SOB. Denies further complaints. Subjective Subjective This is a 74-year-old male who returns to the wound care center today for continued care of left lower extremity ulceration secondary to chronic venous stasis. He is assisted by his son today. He states that visiting nursing is continuing to assist in dressing changes. States that continues to tolerate the 3M compression wrap well. He feels his wound is improving with better compression. States he will look to update to new compression stockings once healed. Denies constitutional symptoms. Denies further complaints. Objective Data Objective Data Vital Signs: Vital Signs Temp Pulse Resp BP 98.8 F 84 18 120/58 L 12/05/24 08:26 12/05/24 08:26 12/05/24 08:26 12/05/24 08:26 Weight: 100.344 kg Body Mass Index (BMI) 29.9 Physical Exam Const alert, oriented x3 and no apparent distress General Appearance: cooperative HEENT normocephalic Eyes General Eye: normal appearance of both eyes Neck General: normal visual inspection Lymph Lymphatic: no lymphadenopathy noted and no lymphedema noted Resp normal respiratory effort Cardio regular rate and regular rhythm Extremity no calf tenderness Extremity Narrative: Left lower extremity: Vascular: DP and PT pulses weakly palpable. CFT less than 5 seconds to digits. Normal temperature gradient. Hair growth is absent to digits. Neurologic: Gross sensation intact. Protective sensation is diminished secondary to diabetic peripheral polyneuropathy. Musculoskeletal: Muscle strength 5 of 5 age-appropriate. Decreased range of motion of the ankle joint in dorsiflexion with the knee extended without pain or crepitus. No pain to palpation of calf. Decreased range of motion of the first metatarsophalangeal joint in dorsiflexion achieving less than 5 degrees range of motion consistent with hallux limitus. No pain to palpation about the ulcerative site. Dermatologic: Skin is xerotic with hemosiderin deposition about the lower extremity secondary to chronic venous insufficiency/stasis. There is some mild nonpitting edema lower extremity/foot, which is improving. There is an full- thickness ulceration to the lateral aspect of the lower extremity with healthy appearing granular layer with some serosanguineous drainage. Ulceration granulating in and healing well. No erythema, no purulent drainage, no malodor, no palpable fluctuance/bogginess. No signs of infection. Previous site of ulceration overlying the IPJ of the hallux remains healed. Skin no rashes or lesions noted and skin turgor normal General Skin Exam: venous stasis and dermatitis Neuro moves all extremities Debridement Note Debridement Note Wound debrided: Left lower extremity Laterality: Left Wound Grade/Stage: Swain stage I Type of Debridement: Excisional debridement Anesthesia Used: 5% Lidocaine Gel Depth: Down to and including healthy tissue and in the subcutaneous layer Percentage of wound debrided: 100 Instrument Used: 5mm curette Tissue Removed: Fibrous, devitalized subcutaneous, biofilm, slough Severity: Fat Layer Exposed Amount of bleeding with debridement: Mild Bleeding Controlled with: Compression and gauze Patient tolerated procedure: Patient tolerated procedure well Post-Debridement Measurements and Additional Note: Post-Debridement Measurements/Treatment CLAUDETTE - Nurse 1 - General Ulcer Assessment Start: 11/14/24 08:55 Freq: Status: Active Protocol: LIZZY Activity Type Activity Date Activity User E-sign Co-sign Detail Recorded Client Recorded Date Recorded By Document 11/14/24 08:56 DL [id number] 11/14/24 09:12 DL Document 11/21/24 08:33 DL [id number] 11/21/24 08:42 DL Document 01/16/25 08:36 RB [id number] 11/28/24 08:47 RB Document 12/05/24 08:26 DL [id number] 12/05/24 08:36 DL 11/14/24 11/21/24 11/28/24 08:56 08:33 08:36 WC - Today's Visit Information Type of service Initial Visit Follow-up Visit Follow-up Visit (Physician/TELEPHONE STERILIZER (Physician/TELEPHONE STERILIZER ) ) Arrival Mode Ambulatory, Ambulatory, Ambulatory, Walker Walker Walker Transfer Assistance None None None Patient Identification Verified (Name & Yes Yes Yes ) Patient Requires Transmission-Based No No No Precautions Height and Weight Height 6 ft Weight 100.344 kg Weight in Pounds 221.2 lbs Weight Measurement Method Estimated by Patient Body Mass Index (BMI) 29.9 29.9 29.9 BMI Classification Overweight Overweight Overweight BSA - Daron 2.22 Vital Signs Temperature (97.8 F-99.1 F) 97.6 F L 97.6 F L 97 F L Temperature Source Temporal Temporal Temporal Pulse Rate (60-100) 66 68 76 Pulse Location Monitor Monitor Monitor Respiratory Rate (12-18) 18 18 18 Respiratory rate source Observation Observation Blood Pressure (90/60-120/80) 143/67 H 127/57 H 103/57 L Blood Pressure Mean (mm Hg) 92 80 72 Source Monitor Monitor Monitor Position Semi-Fowlers Blood Pressure Location Left Arm History Since Last Visit- (Skip if this is Patient's initial visit) Have you changed medications since your No No last visit? Any new allergies or adverse reactions No No Had a fall/change in ADL's that may No No increase risk of falls Signs or symptoms of abuse and/or No No neglect since last visit Have you been in the hospital since your No No last visit? Has dressing in place as prescribed Yes Yes Has compression in place as prescribed Yes Yes Has offloadiing in place as prescribed Yes N/A Experienced any changes in pain level or No No management Left Footwear Regular Shoe Right Footwear Regular Shoe Pain Scale: 0-10 Numeric Is Patient Pain Free? Yes Yes No shoulders and back -Description Aching -Intensity 9 -Duration (hours) Acute -Pain Behavior Withdrawal from Touch -Pain Aggravating Factors ADL's -Alleviating Factors/Interventions Medication -Effectiveness of Alleviating Factor/ Moderately Intervention effective Neuropathy Assessment Feet - Top Side and Bottom <Entered> (a) Communication Assessment Preferred language Peruvian Able to Read Yes Able to Write Yes Communication Tools None Right Hearing Abillity Hard of Hearing Left Hearing Abillity Hard of Hearing Visual Assistive Devices None Teaching Assessment Preferences Verbal,Written, Demonstration Barriers to Learning None Readiness To Learn Good Willingness to Engage in Self Management Med Activies Readiness to Engage in Self Management Med Activities Anxiety Level Calm Cooperation Cooperative Perception Coherent Interest in Health Problem Asks Questions Education Importance Acknowledges Need Smoking Status Former smoker Is Patient Diabetic No Functional Assessment Recent Decline in Ability to Perform Denies Any Declines Culture/Jew/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 Cultural/Jew Needs that may affect No Treatment Plan Would you allow our hospital brew house supervisor to No meet you for the purpose of spiritual/ emotional support? 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 to contact place of faith No Teaching: Wound Center Dressing Your Wound -Person Taught Patient *Welcome to the Wound Center -Person Taught Patient 12/05/24 08:26 WC - Today's Visit Information Type of service Follow-up Visit (Physician/TELEPHONE STERILIZER ) Arrival Mode Ambulatory, Walker Transfer Assistance None Patient Identification Verified (Name & Yes ) Patient Requires Transmission-Based No Precautions Height and Weight Height Weight Weight in Pounds Weight Measurement Method Body Mass Index (BMI) 29.9 BMI Classification Overweight [facility] - Daron Vital Signs Temperature (97.8 F-99.1 F) 98.8 F Temperature Source Temporal Pulse Rate (60-100) 84 Pulse Location Monitor Respiratory Rate (12-18) 18 Respiratory rate source Observation Blood Pressure (90/60-120/80) 120/58 L Blood Pressure Mean (mm Hg) 78 Source Monitor Position Blood Pressure Location History Since Last Visit- (Skip if this is Patient's initial visit) Have you changed medications since your No last visit? Any new allergies or adverse reactions No Had a fall/change in ADL's that may No increase risk of falls Signs or symptoms of abuse and/or No neglect since last visit Have you been in the hospital since your No last visit? Has dressing in place as prescribed Yes Has compression in place as prescribed Yes Has offloadiing in place as prescribed N/A Experienced any changes in pain level or No management Left Footwear Right Footwear Pain Scale: 0-10 Numeric Is Patient Pain Free? Yes shoulders and back -Description -Intensity -Duration (hours) -Pain Behavior -Pain Aggravating Factors -Alleviating Factors/Interventions -Effectiveness of Alleviating Factor/ Intervention Neuropathy Assessment Feet - Top Side and Bottom Communication Assessment Preferred language Able to Read Able to Write Communication Tools Right Hearing Abillity Left Hearing Abillity Visual Assistive Devices Teaching Assessment Preferences Barriers to Learning Readiness To Learn Willingness to Engage in Self Management Activies Readiness to Engage in Self Management Activities Anxiety Level Cooperation Perception Interest in Health Problem Education Importance Smoking Status Is Patient Diabetic Functional Assessment Recent Decline in Ability to Perform Culture/Jew/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 Cultural/Jew Needs that may affect Treatment Plan Would you allow our hospital brew house supervisor to meet you for the purpose of spiritual/ emotional support? 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 to contact place of faith Teaching: Wound Center Dressing Your Wound -Person Taught *Welcome to the Wound Center -Person Taught (a) 1 - _ 2 - + WC - Nurse 1 - General Ulcer Measurement Start: 11/14/24 08:55 Freq: Status: Active Protocol: Activity Type Activity Date Activity User E-sign Co-sign Detail Recorded Client Recorded Date Recorded By Document 11/14/24 08:56 DL [id number] 11/14/24 09:12 DL Document 11/21/24 08:33 DL [id number] 11/21/24 08:42 DL Document 11/28/24 08:36 RB [id number] 11/28/24 08:47 RB Document 12/05/24 08:26 DL [id number] 12/05/24 08:36 DL 11/14/24 11/21/24 11/28/24 08:56 08:33 08:36 Wound Center Nurse 1 #1 LLE LAT -Combined with other wound No -Current Size (cm) - Length 1.5 1 1.2 -Current Size (cm) - Width 1.2 1.3 0.7 -Current Size (cm) - Depth 0.2 0.2 0.1 -Total Square Cm 1.80 1.3 0.84 -Photo Taken Yes Yes -Tunneling No -Undermining/Tunneling No -Circular Undermining No -Exudate Amt Medium Medium Medium -Exudate Type Serosanguineous Serosanguineous Serosanguineous -Wound Margin Thickened Distinct, Distinct, Outline Outline Attached Attached -Granulation Amt Large (67-100%) Large (67-100%) Medium (34-66%) -Granulation Quality Red Red [place],Red -Slough/Fibrin Yes -Necrosis Amt Small (1-33%) None Present (0 Small (1-33%) %) -Necrotic Tissue Type Eschar Adherent Slough -Structure Exposed N/A N/A N/A -Texture (Lyndsey-wound Skin Appearance) Scarring Scarring Assessed -Moisture (Lyndsey-wound Skin Appearance) Dry/Scaly Dry/Scaly Dry/Scaly -Color (Lyndsey-wound Skin Appearance) Hemosiderin Hemosiderin Assessed Staining Staining -Temperature (Lyndsey-wound Skin No Abnormality No Abnormality Appearance) (Pt Warm) (Pt Warm) -Tenderness on Palpation (Lyndsey-wound No No Skin Appearance) -Ulcer Cleansing Soap and Water Soap and Water Wound Cleanser -Foul Odor after Cleansing No No No -Anesthetic Used 5% Lidocaine 4% Lidocaine 5% Lidocaine Gel Solution Gel Lower Limb Edema Present Yes Right Calf (cm) 35.4 38.8 Right Ankle (cm) 27.2 27.3 Left Calf (cm) 35.5 38.2 40 Left Ankle (cm) 26.7 27 27 12/05/24 08:26 Wound Center Nurse 1 #1 LLE LAT -Combined with other wound -Current Size (cm) - Length 0.2 -Current Size (cm) - Width 0.2 -Current Size (cm) - Depth 0.1 -Total Square Cm 0.04 -Photo Taken Yes -Tunneling -Undermining/Tunneling -Circular Undermining -Exudate Amt Small -Exudate Type -Wound Margin Distinct, Outline Attached -Granulation Amt Small (1-33%) -Granulation Quality [place] -Slough/Fibrin -Necrosis Amt None Present (0 %) -Necrotic Tissue Type -Structure Exposed N/A -Texture (Lyndsey-wound Skin Appearance) Scarring -Moisture (Lyndsey-wound Skin Appearance) Dry/Scaly -Color (Lyndsey-wound Skin Appearance) Hemosiderin Staining -Temperature (Lyndsey-wound Skin No Abnormality Appearance) (Pt Warm) -Tenderness on Palpation (Lyndsey-wound No Skin Appearance) -Ulcer Cleansing Soap and Water -Foul Odor after Cleansing No -Anesthetic Used 5% Lidocaine Gel Lower Limb Edema Present Right Calf (cm) 36.4 Right Ankle (cm) 28 Left Calf (cm) 36.3 Left Ankle (cm) 26.5 WC - Nurse 2 - General Ulcer CM Notes Start: 11/14/24 08:55 Freq: Status: Active Protocol: Activity Type Activity Date Activity User E-sign Co-sign Detail Recorded Client Recorded Date Recorded By Document 11/14/24 09:20 [facility] [id number] 11/14/24 09:27 [facility] Document 11/21/24 08:55 [facility] [id number] 11/21/24 09:02 [facility] Document 11/28/24 09:17 [facility] [id number] 11/28/24 09:22 [facility] 11/14/24 11/21/24 11/28/24 09:20 08:55 09:17 Wound Center Nurse 2 #1 LLE LAT -Time 09:21 08:56 09:18 -Correct Patient Yes Yes Yes -Correct Side, Site, Position Yes Yes Yes -Correct Procedure Yes Yes Yes -Procedure Performed Yes Yes Yes -Type of Procedure Debridement Debridement Debridement -Clinical Debridement Subcutaneous Subcutaneous Subcutaneous -Tissue Removed Subcutaneous Subcutaneous Subcutaneous -Post Debridement (cm) - Length 1.9 2 1 -Post Debridement (cm) - Width 1.3 1.1 0.6 -Post Debridement (cm) - Depth 0.1 0.1 0.1 -Total Square (Post) (cm) 2.47 2.2 0.6 -Area of Debridement (cm) - Length 1.9 2 1 -Area of Debridement (cm) - Width 1.3 1.1 0.6 -Total Square (Area) (cm) 2.47 2.2 0.6 -Tunneling No No No -Undermining/Tunneling No No No -Circular Undermining No No No -Wound/Ulcer Outcome Not Healed Not Healed Not Healed -Ulcer Cleansing Rinsed/ Rinsed/ Rinsed/ Irrigated with Irrigated with Irrigated with Saline Saline Saline -Foul Odor after Cleansing No No No -Bioengineered Tissue No No No -Bleeding Controlled with Pressure Pressure Pressure -Treatment Response Procedure Procedure Procedure Tolerated Well Tolerated Well Tolerated Well -Debridement - Subq, 1st 20sq cm Yes Yes Yes Pain Scale: 0-10 Numeric Is Patient Pain Free? Yes Yes Yes - Nurse 3 - General Ulcer D/C NN Start: 11/14/24 08:55 Freq: Status: Active Protocol: Activity Type Activity Date Activity User E-sign Co-sign Detail Recorded Client Recorded Date Recorded By Document 11/14/24 09:59 DL [id number] 11/14/24 10:00 DL Document 11/21/24 09:17 DL [id number] 11/21/24 09:18 DL Document 11/28/24 09:25 KW [id number] 11/28/24 09:25 KW Edit Result 11/28/24 09:25 KW (1) [id number] 11/28/24 09:26 KW (1) Right - Tubular Bandage Single Layer => - Size of Tubigrip Used Size E => - Size E ($) 1 => - Other => pt own tubigrip 11/14/24 11/21/24 11/28/24 09:59 09:17 09:25 Wound Care Center Nurse 3 #1 LLE LAT -Ulcer Cleansing Rinsed/ Irrigated with Saline -Foul Odor after Cleansing No No -Primary Dressing Applied Aquacel Extra,C Hydrogel ($), Collagen Powder ($) -Other Dressing purachol powder mixed with hydrogel -Primary Dressing Covered/Secured with Dry Gauze & Dry Gauze & Dry Gauze Roll Gauze, Roll Gauze Secured with Tape -Aquacel Extra 1 Right -Tubular Bandage Single Layer Single Layer -Size of Tubigrip Used Size E Size E -Size E ($) 1 1 -Other pt own tubigrip Left -Multi-Layered Wrap Application Multi-Layer Multi-Layer Multi-Layer Comp - Left ($) Comp - Left ($) Comp - Left ($) Treatment Response Procedure Procedure Tolerated Well Tolerated Well Pain Scale: 0-10 Numeric Is Patient Pain Free? Yes Yes Yes WC - Visit Discharge Discharge Condition Stable Stable Stable Ambulatory Status Ambulatory, Ambulatory, Ambulatory, Walker Walker Walker Transportation Private Auto Private Auto Private Auto Accompanied by son Medication Reconcilliation completed & No provided to patient/care provider Clinical Summary of Care Provided Yes Facility Type Home Health Home Health Orders Sent Yes Yes Assessment/Plan Assessment/Plan (1) Non-pressure chronic ulcer of left calf with fat layer exposed: CODE(S): L97.222 - Non-pressure chronic ulcer of left calf with fat layer exposed (2) Venous insufficiency (chronic) (peripheral): CODE(S): I87.2 - Venous insufficiency (chronic) (peripheral) (3) Diabetes mellitus with diabetic polyneuropathy: CODE(S): E11.42 - Type 2 diabetes mellitus with diabetic polyneuropathy (4) Diabetes mellitus with ulcer of calf: CODE(S): E11.622 - Type 2 diabetes mellitus with other skin ulcer; L97.209 - Non-pressure chronic ulcer of unspecified calf with unspecified severity (5) Atrial fibrillation: CODE(S): I48.91 - Unspecified atrial fibrillation QUALIFIERS: Atrial fibrillation type: longstanding persistent Qualified Code(s): I48.11 - Longstanding persistent atrial fibrillation (6) Debility: CODE(S): R53.81 - Other malaise (7) Bilateral lower extremity edema: CODE(S): R60.0 - Localized edema PLAN: Plan Patient seen and evaluated Predebridement measurement: 0.6 cm x 0.5 cm x 0.1 cm Ulceration underwent debridement as noted in the clinical panel above. Pos tdebridement measurements 0.7 cm x 0.6 cm x 0.1 cm. Collagen powder and hydrogel applied to the ulcerative base and dressed with Aquacel Ag and dry sterile dressing. 3M compression layer applied to left lower extremity, discussed not to get this dressing wet. Tubigrip compression applied to right lower extremity. There is continued reduction in size of the ulcer versus previous visit. I do feel he would aid in healing from application of an advanced wound care product, applied for EpiFix. We are awaiting approval from insurance. Once ulceration has healed recommend continued wearing/updating of compression stockings to prevent recidivism. Have discussed updating stockings every 6 months. Will continue to elevate lower extremities at times of rest Recommended continued intake of protein to aid in wound healing. Discussed signs and symptoms of infection with patient and son. Discussed if he notices increasing redness about the ulcerative site that spreads up the leg, any purulent drainage from the ulcerative site, increasing foul odor from the ulcerative site, or if he experiences fever greater than 101 degree accompanied by nausea, vomiting, chills that these are signs of a progressing infection and he should report to the ED for IV antibiotics and further evaluation. He is understanding of this today. The following work up and care recommendations were made: Dressing: Collagen powder and hydrogel, Aquacel Ag, dry sterile dressing, 3M compression wrap. Wash: Do not get left lower extremity wet Tissue growth optimization: Collagen powder and hydrogel Offload: 3M compression wrap and elevation of the lower extremities Vascular: DP and PT pulses weakly palpable and cap fill less than 5 seconds to digits, do not feel this is impacting healing as issue is related to venous stasis/edema Edema: 3M compression wrap and elevation of lower extremities Infection: No signs of infection Pain: May take Tylenol for discomfort. No pain about the ulcerative site secondary to diabetic peripheral polyneuropathy Host factors: DM type II with peripheral polyneuropathy, A-fib, chronic venous insufficiency/stasis, lower extremity edema Visiting nursing will assist in dressing changes. I answered all the patient's questions. To return to the wound healing center in 1 week or call sooner if the patient has any questions or concerns.
--- NOTE | 2024-12-06 14:33 | WC ---
PHOTO 12/06/24
[2024-12-12 08:26] VITALS: BP 138/82; PULSE 79; RESP 18; TEMP 36.2; BMI 29.9
--- NOTE | 2024-12-12 09:00 | PCM.WC.PN ---
History of Present Illness Date of Service: 12/12/24 Chief Complaint: Venous stasis ulceration left lower extremity History of Wound: This is a 74-year-old male who presents to the wound care center for continued aid in healing of a venous stasis ulceration to the lateral aspect of the left lower extremity. Ulceration is secondary to chronic venous insufficiency and lower extremity edema. He had been unable to wear his compression stockings due to significant edema and previous heart failure. 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 This did lead to improvement in lower extremity edema however still does get swelling secondary to his chronic venous insufficiency which did lead to ulceration to the lateral aspect of the left leg. He had been undergoing local wound care in office over the course of 6 weeks with applications of Renuka however ulceration has failed to improve with this and compression stocking. He continues to change dressing daily with Renuka and does have visiting nursing to assist in dressing changes. States that he continues to wear his compression stocking and tries to elevate when possible. He does assist in care for his so elevation at all times of rest poses difficulty. Denies trauma to the leg. Denies N/V/F/chills/SOB. Denies further complaints. Subjective Subjective This is a 74-year-old male who returns to the wound care center today for continued care of left lower extremity ulceration secondary to chronic venous stasis. He is assisted by his son today. He states that visiting nursing is continuing to assist in dressing changes. States that continues to tolerate the 3M compression wrap well. He feels his wound is improving with better compression and is nearing closure. Will look to update to new compression stockings once healed as piror pair are not longer functional. Denies constitutional symptoms. Denies further complaints. Objective Data Objective Data Vital Signs: Vital Signs Temp Pulse Resp BP 97.1 F L 79 18 138/82 H 12/12/24 08:26 12/12/24 08:26 12/12/24 08:26 12/12/24 08:26 Weight: 100.344 kg Body Mass Index (BMI) 29.9 Physical Exam Const alert, oriented x3 and no apparent distress General Appearance: cooperative HEENT normocephalic Eyes General Eye: normal appearance of both eyes Neck General: normal visual inspection Lymph Lymphatic: no lymphadenopathy noted and no lymphedema noted Resp normal respiratory effort Cardio regular rate and regular rhythm Extremity no calf tenderness Extremity Narrative: Left lower extremity: Vascular: DP and PT pulses weakly palpable. CFT less than 5 seconds to digits. Normal temperature gradient. Hair growth is absent to digits. Neurologic: Gross sensation intact. Protective sensation is diminished secondary to diabetic peripheral polyneuropathy. Musculoskeletal: Muscle strength 5 of 5 age-appropriate. Decreased range of motion of the ankle joint in dorsiflexion with the knee extended without pain or crepitus. No pain to palpation of calf. Decreased range of motion of the first metatarsophalangeal joint in dorsiflexion achieving less than 5 degrees range of motion consistent with hallux limitus. No pain to palpation about the ulcerative site. Dermatologic: Skin is xerotic with hemosiderin deposition about the lower extremity secondary to chronic venous insufficiency/stasis. There is some mild nonpitting edema lower extremity/foot, which is improving. There is an full-thickness ulceration to the lateral aspect of the lower extremity with healthy appearing granular layer with some serosanguineous drainage. Ulceration granulating in and healing well. No erythema, no purulent drainage, no malodor, no palpable fluctuance/bogginess. No signs of infection. Previous site of ulceration overlying the IPJ of the hallux remains healed. Skin no rashes or lesions noted and skin turgor normal General Skin Exam: venous stasis and dermatitis Neuro moves all extremities Debridement Note Debridement Note Wound debrided: Left lateral leg Laterality: Left Wound Grade/Stage: Swain stage I Type of Debridement: Excisional debridement Anesthesia Used: 5% Lidocaine Gel Depth: Down to and including healthy tissue and in the subcutaneous layer Percentage of wound debrided: 100 Instrument Used: 5mm curette Tissue Removed: Fibrous, devitalized subcutaneous, biofilm, slough Severity: Fat Layer Exposed Amount of bleeding with debridement: Mild Bleeding Controlled with: Compression and gauze Patient tolerated procedure: Patient tolerated procedure well Post-Debridement Measurements and Additional Note: Post-Debridement Measurements/Treatment CLAUDETTE - Nurse 1 - General Ulcer Assessment Start: 11/14/24 08:55 Freq: Status: Active Protocol: LIZZY Activity Type Activity Date Activity User E-sign Co-sign Detail Recorded Client Recorded Date Recorded By Document 11/14/24 08:56 DL [id number] 11/14/24 09:12 DL Document 11/21/24 08:33 DL [id number] 11/21/24 08:42 DL Document 11/28/24 08:36 RB [id number] 11/28/24 08:47 RB Document 12/05/24 08:26 DL [id number] 12/05/24 08:36 DL Document 12/12/24 08:26 DL [id number] 12/12/24 08:33 DL 11/14/24 11/21/24 11/28/24 08:56 08:33 08:36 WC - Today's Visit Information Type of service Initial Visit Follow-up Visit Follow-up Visit (Physician/REGISTERED PHARMACY TECHNICIAN (Physician/REGISTERED PHARMACY TECHNICIAN ) ) Arrival Mode Ambulatory, Ambulatory, Ambulatory, Walker Walker Walker Transfer Assistance None None None Patient Identification Verified (Name & Yes Yes Yes ) Patient Requires Transmission-Based No No No Precautions Height and Weight Height 6 ft Weight 100.344 kg Weight in Pounds 221.2 lbs Weight Measurement Method Estimated by Patient Body Mass Index (BMI) 29.9 29.9 29.9 BMI Classification Overweight Overweight Overweight BSA - Daron 2.22 Vital Signs Temperature (97.8 F-99.1 F) 97.6 F L 97.6 F L 97 F L Temperature Source Temporal Temporal Temporal Pulse Rate (60-100) 66 68 76 Pulse Location Monitor Monitor Monitor Respiratory Rate (12-18) 18 18 18 Respiratory rate source Observation Observation Blood Pressure (90/60-120/80) 143/67 H 127/57 H 103/57 L Blood Pressure Mean (mm Hg) 92 80 72 Source Monitor Monitor Monitor Position Semi-Fowlers Blood Pressure Location Left Arm History Since Last Visit- (Skip if this is Patient's initial visit) Have you changed medications since your No No last visit? Any new allergies or adverse reactions No No Had a fall/change in ADL's that may No No increase risk of falls Signs or symptoms of abuse and/or No No neglect since last visit Have you been in the hospital since your No No last visit? Has dressing in place as prescribed Yes Yes Has compression in place as prescribed Yes Yes Has offloadiing in place as prescribed Yes N/A Experienced any changes in pain level or No No management Left Footwear Regular Shoe Right Footwear Regular Shoe Pain Scale: 0-10 Numeric Is Patient Pain Free? Yes Yes No shoulders and back -Description Aching -Intensity 9 -Duration (hours) Acute -Pain Behavior Withdrawal from Touch -Pain Aggravating Factors ADL's -Alleviating Factors/Interventions Medication -Effectiveness of Alleviating Factor/ Moderately Intervention effective Neuropathy Assessment Feet - Top Side and Bottom <Entered> (a) Communication Assessment Preferred language Belarusian Able to Read Yes Able to Write Yes Communication Tools None Right Hearing Abillity Hard of Hearing Left Hearing Abillity Hard of Hearing Visual Assistive Devices None Teaching Assessment Preferences Verbal,Written, Demonstration Barriers to Learning None Readiness To Learn Good Willingness to Engage in Self Management Med Activies Readiness to Engage in Self Management Med Activities Anxiety Level Calm Cooperation Cooperative Perception Coherent Interest in Health Problem Asks Questions Education Importance Acknowledges Need Smoking Status Former smoker Is Patient Diabetic No Functional Assessment Recent Decline in Ability to Perform Denies Any Declines Culture/Mormonism/Senior Vice President & General Counsel Cultural/Mormonism Needs that may affect No Treatment Plan Would you allow our hospital high school librarian to No meet you for the purpose of spiritual/ emotional support? Senior Vice President & General Counsel to contact place of baptism No Teaching: Wound Center Dressing Your Wound -Person Taught Patient *Welcome to the Wound Center -Person Taught Patient 12/05/24 12/12/24 08:26 08:26 WC - Today's Visit Information Type of service Follow-up Visit Follow-up Visit (Physician/REGISTERED PHARMACY TECHNICIAN (Physician/REGISTERED PHARMACY TECHNICIAN ) ) Arrival Mode Ambulatory, Ambulatory, Walker Walker Transfer Assistance None None Patient Identification Verified (Name & Yes Yes ) Patient Requires Transmission-Based No No Precautions Height and Weight Height Weight Weight in Pounds Weight Measurement Method Body Mass Index (BMI) 29.9 29.9 BMI Classification Overweight Overweight [facility] - Ramer Vital Signs Temperature (97.8 F-99.1 F) 98.8 F 97.1 F L Temperature Source Temporal Temporal Pulse Rate (60-100) 84 79 Pulse Location Monitor Monitor Respiratory Rate (12-18) 18 18 Respiratory rate source Observation Observation Blood Pressure (90/60-120/80) 120/58 L 138/82 H Blood Pressure Mean (mm Hg) 78 100 Source Monitor Monitor Position Blood Pressure Location History Since Last Visit- (Skip if this is Patient's initial visit) Have you changed medications since your No No last visit? Any new allergies or adverse reactions No No Had a fall/change in ADL's that may No No increase risk of falls Signs or symptoms of abuse and/or No No neglect since last visit Have you been in the hospital since your No No last visit? Has dressing in place as prescribed Yes Yes Has compression in place as prescribed Yes Yes Has offloadiing in place as prescribed N/A Yes Experienced any changes in pain level or No No management Left Footwear Right Footwear Pain Scale: 0-10 Numeric Is Patient Pain Free? Yes Yes shoulders and back -Description -Intensity -Duration (hours) -Pain Behavior -Pain Aggravating Factors -Alleviating Factors/Interventions -Effectiveness of Alleviating Factor/ Intervention Neuropathy Assessment Feet - Top Side and Bottom Communication Assessment Preferred language Able to Read Able to Write Communication Tools Right Hearing Abillity Left Hearing Abillity Visual Assistive Devices Teaching Assessment Preferences Barriers to Learning Readiness To Learn Willingness to Engage in Self Management Activies Readiness to Engage in Self Management Activities Anxiety Level Cooperation Perception Interest in Health Problem Education Importance Smoking Status Is Patient Diabetic Functional Assessment Recent Decline in Ability to Perform Culture/Mormonism/Senior Vice President & General Counsel Cultural/Mormonism Needs that may affect Treatment Plan Would you allow our [facility] high school librarian to meet you for the purpose of spiritual/ emotional support? Senior Vice President & General Counsel to contact place of baptism Teaching: Wound Center Dressing Your Wound -Person Taught *Welcome to the Wound Center -Person Taught (a) 1 - _ 2 - + WC - Nurse 1 - General Ulcer Measurement Start: 11/14/24 08:55 Freq: Status: Active Protocol: Activity Type Activity Date Activity User E-sign Co-sign Detail Recorded Client Recorded Date Recorded By Document 11/14/24 08:56 DL [id number] 11/14/24 09:12 DL Document 11/21/24 08:33 DL [id number] 11/21/24 08:42 DL Document 11/28/24 08:36 RB [id number] 11/28/24 08:47 RB Document 12/05/24 08:26 DL [id number] 12/05/24 08:36 DL Document 12/12/24 08:26 DL [id number] 12/12/24 08:33 DL 11/14/24 11/21/24 11/28/24 08:56 08:33 08:36 Wound Center Nurse 1 #1 LLE LAT -Combined with other wound No -Current Size (cm) - Length 1.5 1 1.2 -Current Size (cm) - Width 1.2 1.3 0.7 -Current Size (cm) - Depth 0.2 0.2 0.1 -Total Square Cm 1.80 1.3 0.84 -Photo Taken Yes Yes -Tunneling No -Undermining/Tunneling No -Circular Undermining No -Exudate Amt Medium Medium Medium -Exudate Type Serosanguineous Serosanguineous Serosanguineous -Wound Margin Thickened Distinct, Distinct, Outline Outline Attached Attached -Granulation Amt Large (67-100%) Large (67-100%) Medium (34-66%) -Granulation Quality Red Red Limon,Red -Slough/Fibrin Yes -Necrosis Amt Small (1-33%) None Present (0 Small (1-33%) %) -Necrotic Tissue Type Eschar Adherent Slough -Structure Exposed N/A N/A N/A -Texture (Lyndsey-wound Skin Appearance) Scarring Scarring Assessed -Moisture (Lyndsey-wound Skin Appearance) Dry/Scaly Dry/Scaly Dry/Scaly -Color (Lyndsey-wound Skin Appearance) Hemosiderin Hemosiderin Assessed Staining Staining -Temperature (Lyndsey-wound Skin No Abnormality No Abnormality Appearance) (Pt Warm) (Pt Warm) -Tenderness on Palpation (Lyndsey-wound No No Skin Appearance) -Ulcer Cleansing Soap and Water Soap and Water Wound Cleanser -Foul Odor after Cleansing No No No -Anesthetic Used 5% Lidocaine 4% Lidocaine 5% Lidocaine Gel Solution Gel Lower Limb Edema Present Yes Right Calf (cm) 35.4 38.8 Right Ankle (cm) 27.2 27.3 Left Calf (cm) 35.5 38.2 40 Left Ankle (cm) 26.7 27 27 12/05/24 12/12/24 08:26 08:26 Wound Center Nurse 1 #1 LLE LAT -Combined with other wound -Current Size (cm) - Length 0.2 0.1 -Current Size (cm) - Width 0.2 0.1 -Current Size (cm) - Depth 0.1 0.1 -Total Square Cm 0.04 0.01 -Photo Taken Yes Yes -Tunneling -Undermining/Tunneling -Circular Undermining -Exudate Amt Small None Present -Exudate Type -Wound Margin Distinct, Thickened Outline Attached -Granulation Amt Small (1-33%) Small (1-33%) -Granulation Quality Limon Limon -Slough/Fibrin -Necrosis Amt None Present (0 Small (1-33%) %) -Necrotic Tissue Type Eschar -Structure Exposed N/A N/A -Texture (Lyndsey-wound Skin Appearance) Scarring Scarring -Moisture (Lyndsey-wound Skin Appearance) Dry/Scaly Dry/Scaly -Color (Lyndsey-wound Skin Appearance) Hemosiderin Hemosiderin Staining Staining -Temperature (Lyndsey-wound Skin No Abnormality No Abnormality Appearance) (Pt Warm) (Pt Warm) -Tenderness on Palpation (Lyndsey-wound No Skin Appearance) -Ulcer Cleansing Soap and Water Soap and Water -Foul Odor after Cleansing No No -Anesthetic Used 5% Lidocaine 5% Lidocaine Gel Gel Lower Limb Edema Present Right Calf (cm) 36.4 38 Right Ankle (cm) 28 28 Left Calf (cm) 36.3 39 Left Ankle (cm) 26.5 27.5 WC - Nurse 2 - General Ulcer CM Notes Start: 11/14/24 08:55 Freq: Status: Active Protocol: Activity Type Activity Date Activity User E-sign Co-sign Detail Recorded Client Recorded Date Recorded By Document 11/14/24 09:20 BMF [id number] 11/14/24 09:27 BM Document 11/21/24 08:55 BMF [id number] 11/21/24 09:02 BMF Document 11/28/24 09:17 BMF [id number] 11/28/24 09:22 BMF Document 12/05/24 08:41 BMF [id number] 12/05/24 08:48 BMF Document 12/12/24 08:49 BMF [id number] 12/12/24 08:54 BMF 11/14/24 11/21/24 11/28/24 09:20 08:55 09:17 Wound Center Nurse 2 #1 LLE LAT -Time 09:21 08:56 09:18 -Correct Patient Yes Yes Yes -Correct Side, Site, Position Yes Yes Yes -Correct Procedure Yes Yes Yes -Procedure Performed Yes Yes Yes -Type of Procedure Debridement Debridement Debridement -Clinical Debridement Subcutaneous Subcutaneous Subcutaneous -Tissue Removed Subcutaneous Subcutaneous Subcutaneous -Post Debridement (cm) - Length 1.9 2 1 -Post Debridement (cm) - Width 1.3 1.1 0.6 -Post Debridement (cm) - Depth 0.1 0.1 0.1 -Total Square (Post) (cm) 2.47 2.2 0.6 -Area of Debridement (cm) - Length 1.9 2 1 -Area of Debridement (cm) - Width 1.3 1.1 0.6 -Total Square (Area) (cm) 2.47 2.2 0.6 -Tunneling No No No -Undermining/Tunneling No No No -Circular Undermining No No No -Wound/Ulcer Outcome Not Healed Not Healed Not Healed -Ulcer Cleansing Rinsed/ Rinsed/ Rinsed/ Irrigated with Irrigated with Irrigated with Saline Saline Saline -Foul Odor after Cleansing No No No -Bioengineered Tissue No No No -Bleeding Controlled with Pressure Pressure Pressure -Treatment Response Procedure Procedure Procedure Tolerated Well Tolerated Well Tolerated Well -Debridement - Subq, 1st 20sq cm Yes Yes Yes Pain Scale: 0-10 Numeric Is Patient Pain Free? Yes Yes Yes 12/05/24 12/12/24 08:41 08:49 Wound Center Nurse 2 #1 JOSHUA LAT -Time 08:42 08:50 -Correct Patient Yes Yes -Correct Side, Site, Position Yes Yes -Correct Procedure Yes Yes -Procedure Performed Yes Yes -Type of Procedure Debridement Debridement -Clinical Debridement Subcutaneous Subcutaneous -Tissue Removed Subcutaneous Subcutaneous -Post Debridement (cm) - Length 0.7 0.5 -Post Debridement (cm) - Width 0.5 0.4 -Post Debridement (cm) - Depth 0.1 0.1 -Total Square (Post) (cm) 0.35 0.20 -Area of Debridement (cm) - Length 0.7 0.5 -Area of Debridement (cm) - Width 0.5 0.4 -Total Square (Area) (cm) 0.35 0.20 -Tunneling No No -Undermining/Tunneling No No -Circular Undermining No No -Wound/Ulcer Outcome Not Healed Not Healed -Ulcer Cleansing Rinsed/ Rinsed/ Irrigated with Irrigated with Saline Saline -Foul Odor after Cleansing No No -Bioengineered Tissue No No -Bleeding Controlled with Pressure Pressure -Treatment Response Procedure Procedure Tolerated Well Tolerated Well -Debridement - Subq, 1st 20sq cm Yes Yes Pain Scale: 0-10 Numeric Is Patient Pain Free? Yes Yes - Nurse 3 - General Ulcer D/C NN Start: 11/14/24 08:55 Freq: Status: Active Protocol: Activity Type Activity Date Activity User E-sign Co-sign Detail Recorded Client Recorded Date Recorded By Document 11/14/24 09:59 DL [id number] 11/14/24 10:00 DL Document 11/21/24 09:17 DL [id number] 11/21/24 09:18 DL Document 11/28/24 09:25 KW [id number] 11/28/24 09:25 KW Edit Result 11/28/24 09:25 KW (1) [id number] 11/28/24 09:26 KW Document 12/05/24 08:53 DL [id number] 12/05/24 08:56 DL Document 12/12/24 08:54 BMF [id number] 12/12/24 08:55 BMF (1) Right - Tubular Bandage Single Layer => - Size of Tubigrip Used Size E => - Size E ($) 1 => - Other => pt own tubigrip 11/14/24 11/21/24 11/28/24 09:59 09:17 09:25 Wound Care Center Nurse 3 #1 LLE LAT -Ulcer Cleansing Rinsed/ Irrigated with Saline -Foul Odor after Cleansing No No -Primary Dressing Applied Aquacel Extra,C Hydrogel ($), Collagen Powder ($) -Primary Dressing Applied -Other Dressing purachol powder mixed with hydrogel -Primary Dressing Covered/Secured with Dry Gauze & Dry Gauze & Dry Gauze Roll Gauze, Roll Gauze Secured with Tape -Aquacel Extra 1 -Promogran Renuka Matter Right -Tubular Bandage Single Layer Single Layer -Size of Tubigrip Used Size E Size E -Size E ($) 1 1 -Other pt own tubigrip Left -Multi-Layered Wrap Application Multi-Layer Multi-Layer Multi-Layer Comp - Left ($) Comp - Left ($) Comp - Left ($) -Other Treatment Response Procedure Procedure Tolerated Well Tolerated Well Pain Scale: 0-10 Numeric Is Patient Pain Free? Yes Yes Yes WC - Visit Discharge Discharge Condition Stable Stable Stable Ambulatory Status Ambulatory, Ambulatory, Ambulatory, Walker Walker Walker Transportation Private Auto Private Auto Private Auto Accompanied by son Medication Reconcilliation completed & No provided to patient/care provider Clinical Summary of Care Provided Yes Facility Type Home Health Home Health Orders Sent Yes Yes 12/05/24 12/12/24 08:53 08:54 Wound Care Center Nurse 3 #1 LLE LAT -Ulcer Cleansing Rinsed/ Irrigated with Saline -Foul Odor after Cleansing No No -Primary Dressing Applied -Primary Dressing Applied Promogran Renuka Matter -Other Dressing PURACHOL drsg and 3m per dl gluer machine setup operator -Primary Dressing Covered/Secured with Dry Gauze & Dry Gauze & Roll Gauze Roll Gauze, Secured with Tape -Aquacel Extra -Promogran Renuka Matter 1 Right -Tubular Bandage Single Layer -Size of Tubigrip Used Size E -Size E ($) 1 -Other Left -Multi-Layered Wrap Application Multi-Layer Multi-Layer Comp - Left ($) Comp - Left ($) -Other per dl gluer machine setup operator Treatment Response Procedure Procedure Tolerated Well Tolerated Well Pain Scale: 0-10 Numeric Is Patient Pain Free? Yes Yes WC - Visit Discharge Discharge Condition Stable Stable Ambulatory Status Walker Ambulatory Transportation Private Auto Private Auto Accompanied by Medication Reconcilliation completed & provided to patient/care provider Clinical Summary of Care Provided Facility Type Home Health Orders Sent Yes Assessment/Plan Assessment/Plan (1) Non-pressure chronic ulcer of left calf with fat layer exposed: CODE(S): L97.222 - Non-pressure chronic ulcer of left calf with fat layer exposed (2) Venous insufficiency (chronic) (peripheral): CODE(S): I87.2 - Venous insufficiency (chronic) (peripheral) (3) Diabetes mellitus with diabetic polyneuropathy: CODE(S): E11.42 - Type 2 diabetes mellitus with diabetic polyneuropathy (4) Diabetes mellitus with ulcer of calf: CODE(S): E11.622 - Type 2 diabetes mellitus with other skin ulcer; L97.209 - Non-pressure chronic ulcer of unspecified calf with unspecified severity (5) Atrial fibrillation: CODE(S): I48.91 - Unspecified atrial fibrillation QUALIFIERS: Atrial fibrillation type: longstanding persistent Qualified Code(s): I48.11 - Longstanding persistent atrial fibrillation (6) Debility: CODE(S): R53.81 - Other malaise (7) Bilateral lower extremity edema: CODE(S): R60.0 - Localized edema PLAN: Plan Patient seen and evaluated Predebridement measurement: 0.4 cm x 0.3 cm x 0.1 cm Ulceration underwent debridement as noted in the clinical panel above. Postdebridement measurements 0.5 cm x 0.4 cm x 0.1 cm. Collagen powder and hydrogel applied to the ulcerative base and dressed with Aquacel Ag and dry sterile dressing. 3M compression layer applied to left lower extremity, discussed not to get this dressing wet. Tubigrip compression applied to right lower extremity. There is continued reduction in size of the ulcer versus previous visit and site is nearing closure. I do feel he would aid in healing from application of an advanced wound care product, applied for EpiFix. We are awaiting approval from insurance. Once ulceration has healed recommend continued wearing/updating of compression stockings to prevent recidivism. Have discussed updating stockings every 6 months. Will continue to elevate lower extremities at times of rest Recommended continued intake of protein to aid in wound healing. Discussed signs and symptoms of infection with patient and son. Discussed if he notices increasing redness about the ulcerative site that spreads up the leg, any purulent drainage from the ulcerative site, increasing foul odor from the ulcerative site, or if he experiences fever greater than 101 degree accompanied by nausea, vomiting, chills that these are signs of a progressing infection and he should report to the ED for IV antibiotics and further evaluation. He is understanding of this today. The following work up and care recommendations were made: Dressing: Collagen powder and hydrogel, Aquacel Ag, dry sterile dressing, 3M compression wrap. Wash: Do not get left lower extremity wet Tissue growth optimization: Collagen powder and hydrogel Offload: 3M compression wrap and elevation of the lower extremities Vascular: DP and PT pulses weakly palpable and cap fill less than 5 seconds to digits, do not feel this is impacting healing as issue is related to venous stasis/edema Edema: 3M compression wrap and elevation of lower extremities Infection: No signs of infection Pain: May take Tylenol for discomfort. No pain about the ulcerative site secondary to diabetic peripheral polyneuropathy Host factors: DM type II with peripheral polyneuropathy, A-fib, chronic venous insufficiency/stasis, lower extremity edema Visiting nursing will assist in dressing changes. I answered all the patient's questions. To return to the wound healing center in 1 week or call sooner if the patient has any questions or concerns.
== END 2024-12-13 23:59 | disposition home or self-care (01) ==
LOC: WC 08:30
PROVIDERS: PCP Family Medicine Geriatric Medicine; Referring Provider Student in an Organized Health Care Education/Training Program; Visit Provider Student in an Organized Health Care Education/Training Program
DX: E11.622 Type 2 diabetes mellitus with other skin ulcer (principal); L97.222 Non-pressure chronic ulcer of left calf with fat layer exposed; J44.9 Chronic obstructive pulmonary disease, unspecified; I48.11 Longstanding persistent atrial fibrillation; E11.42 Type 2 diabetes mellitus with diabetic polyneuropathy; E11.59 Type 2 diabetes mellitus with other circulatory complications; Z87.891 Personal history of nicotine dependence; E78.5 Hyperlipidemia, unspecified; R53.81 Other malaise; Z79.01 Long term (current) use of 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s; D64.9 Anemia, unspecified; G89.4 Chronic pain syndrome; I87.2 Venous insufficiency (chronic) (peripheral); Z99.89 Dependence on other enabling machines and devices; G47.33 Obstructive sleep apnea (adult) (pediatric); Z95.2 Presence of prosthetic heart valve; R60.0 Localized edema
CPT/HCPCS: 11042; 29581; 99213; G0463

== ENCOUNTER 2025-01-07 16:25 | Outpatient (RCR) | payer MEDICARE, SELFPAY ==
[2025-01-07 17:41] LABS: International Normalized Ratio 1.8; Prothrombin Time (Protime)PT. 21.3 SECONDS (11.7-14.9)
== END 2025-01-10 18:00 | disposition home or self-care (01) ==
LOC: LAB 16:25
PROVIDERS: PCP Family Medicine Geriatric Medicine; Referring Provider Internal Medicine Cardiovascular Disease; Visit Provider Internal Medicine Cardiovascular Disease
DX: Z79.01 Long term (current) use of 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s (principal)
CPT/HCPCS: 36415; 85610

== ENCOUNTER 2025-01-09 08:45 | Outpatient (RCR) | payer MEDICARE, SELFPAY ==
[2024-12-14 01:35] VITALS: BP 138/82; PULSE 79; RESP 18; TEMP 36.2; BMI 29.9
--- NOTE | 2024-12-19 08:30 | PN.PCM_ITS ---
History of Present Illness Date of Service: 12/19/24 Chief Complaint: Venous stasis ulceration left lower extremity History of Wound: This is a 74-year-old male who presents to the wound care center for continued aid in healing of a venous stasis ulceration to the lateral aspect of the left lower extremity. Ulceration is secondary to chronic venous insufficiency and lower extremity edema. He had been unable to wear his compression stockings due to significant edema and previous heart failure. 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 This did lead to improvement in lower extremity edema however still does get swelling secondary to his chronic venous insufficiency which did lead to ulceration to the lateral aspect of the left leg. He had been undergoing local wound care in office over the course of 6 weeks with applications of Renuka however ulceration has failed to improve with this and compression stocking. He continues to change dressing daily with Renuka and does have visiting nursing to assist in dressing changes. States that he continues to wear his compression stocking and tries to elevate when possible. He does assist in care for his so elevation at all times of rest poses difficulty. Denies trauma to the leg. Denies N/V/F/chills/SOB. Denies further complaints. Subjective Subjective This is a 74-year-old male who returns to the wound care center today for continued care of left lower extremity ulceration secondary to chronic venous stasis. He is assisted by his son today. He states that visiting nursing is continuing to assist in dressing changes. He continues to tolerate the 3M compression wrap well. Does feel his wound is improving with better compression and he believes it is possibly healed. Will look to update to new compression stockings once healed as piror pair are not longer functional. States the roads were icy this morning. Denies constitutional symptoms. Denies further complaints. Objective Data Objective Data Vital Signs: Vital Signs Temp Pulse Resp BP 97.1 F L 79 18 138/82 H 12/14/24 01:35 12/14/24 01:35 12/14/24 01:35 12/14/24 01:35 Weight: 100.344 kg Body Mass Index (BMI) 29.9 Physical Exam Const alert, oriented x3 and no apparent distress General Appearance: cooperative HEENT normocephalic Eyes General Eye: normal appearance of both eyes Neck General: normal visual inspection Lymph Lymphatic: no lymphadenopathy noted and no lymphedema noted Resp normal respiratory effort Cardio regular rate and regular rhythm Extremity no calf tenderness Extremity Narrative: Vascular: DP and PT pulses weakly palpable. CFT less than 5 seconds to digits. Normal temperature gradient. Hair growth is absent to digits. Neurologic: Gross sensation intact. Protective sensation is diminished secondary to diabetic peripheral polyneuropathy. Musculoskeletal: Muscle strength 5 of 5 age-appropriate. Decreased range of motion of the ankle joint in dorsiflexion with the knee extended without pain or crepitus. No pain to palpation of calf. Decreased range of motion of the first metatarsophalangeal joint in dorsiflexion achieving less than 5 degrees range of motion consistent with hallux limitus. No pain to palpation about the ul cerative site. Dermatologic: Skin is xerotic with hemosiderin deposition about the lower extremity secondary to chronic venous insufficiency/stasis. There is some mild nonpitting edema lower extremity/foot, which is improving. There is an full- thickness ulceration to the lateral aspect of the lower extremity which has improved with newly epithelializing skin. No erythema, no purulent drainage, no malodor, no palpable fluctuance/bogginess. No signs of infection. Previous site of ulceration overlying the IPJ of the hallux remains healed. Skin no rashes or lesions noted and skin turgor normal General Skin Exam: venous stasis and dermatitis Neuro moves all extremities Debridement Note Debridement Note No debridement was completed: No debridement was completed today Assessment/Plan Assessment/Plan (1) Non-pressure chronic ulcer of left calf with fat layer exposed: CODE(S): L97.222 - Non-pressure chronic ulcer of left calf with fat layer exposed (2) Diabetes mellitus with diabetic polyneuropathy: CODE(S): E11.42 - Type 2 diabetes mellitus with diabetic polyneuropathy (3) Diabetes mellitus with ulcer of calf: CODE(S): E11.622 - Type 2 diabetes mellitus with other skin ulcer; L97.209 - Non-pressure chronic ulcer of unspecified calf with unspecified severity (4) Venous insufficiency (chronic) (peripheral): CODE(S): I87.2 - Venous insufficiency (chronic) (peripheral) (5) Bilateral lower extremity edema: CODE(S): R60.0 - Localized edema (6) Atrial fibrillation: CODE(S): I48.91 - Unspecified atrial fibrillation QUALIFIERS: Atrial fibrillation type: longstanding persistent Qualified Code(s): I48.11 - Longstanding persistent atrial fibrillation (7) Debility: CODE(S): R53.81 - Other malaise PLAN: Plan Patient seen and evaluated Predebridement measurement: 0.1 cm x 0.1 cm x 0.1 cm Ulceration underwent debridement as noted in the clinical panel above. Postdebridement measurements 0.1 cm x 0.1 cm x 0.1 cm. Site demonstrates newly epithelializing skin which is friable. 3M compression layer applied to left lower extremity, discussed not to get this dressing wet. Tubigrip compression applied to right lower extremity. There is continued reduction in size of the ulcer versus previous visit and site healing with newly epithelialized skin. Once ulceration has healed recommend continued wearing/updating of compression stockings to prevent recidivism. Have discussed updating stockings every 6 months. Will continue to elevate lower extremities at times of rest Recommended continued intake of protein to aid in wound healing. Discussed signs and symptoms of infection with patient and son. Discussed if he notices increasing redness about the ulcerative site that spreads up the leg, any purulent drainage from the ulcerative site, increasing foul odor from the ulcerative site, or if he experiences fever greater than 101 degree accompanied by nausea, vomiting, chills that these are signs of a progressing infection and he should report to the ED for IV antibiotics and further evaluation. He is understanding of this today. The following work up and care recommendations were made: DressinM compression wrap. Wash: Do not get left lower extremity wet Tissue growth optimization: None Offload: 3M compression wrap and elevation of the lower extremities Vascular: DP and PT pulses weakly palpable and cap fill less than 5 seconds to digits, do not feel this is impacting healing as issue is related to venous stasis/edema Edema: 3M compression wrap and elevation of lower extremities Infection: No signs of infection Pain: May take Tylenol for discomfort. No pain about the ulcerative site secondary to diabetic peripheral polyneuropathy Host factors: DM type II with peripheral polyneuropathy, A-fib, chronic venous insufficiency/stasis, lower extremity edema Visiting nursing will assist in dressing changes. I answered all the patient's questions. To return to the wound healing center in 1 week or call sooner if the patient has any questions or concerns.
[2024-12-19 08:31] VITALS: BP 127/69; PULSE 81; RESP 18; TEMP 37.2; BMI 29.9
--- NOTE | 2024-12-20 12:26 | WC ---
PHOTO 12/19/24 LEFT LATERAL LE
[2024-12-26 08:36] VITALS: BP 118/60; PULSE 72; RESP 18; TEMP 36.3; BMI 29.9
--- NOTE | 2024-12-26 10:34 | PCM.WC.PN ---
History of Present Illness Date of Service: 12/26/24 Chief Complaint: Venous stasis ulceration left lower extremity History of Wound: This is a 74-year-old male who presents to the wound care center for continued aid in healing of a venous stasis ulceration to the lateral aspect of the left lower extremity. Ulceration is secondary to chronic venous insufficiency and lower extremity edema. He had been unable to wear his compression stockings due to significant edema and previous heart failure. 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 This did lead to improvement in lower extremity edema however still does get swelling secondary to his chronic venous insufficiency which did lead to ulceration to the lateral aspect of the left leg. He had been undergoing local wound care in office over the course of 6 weeks with applications of Renuka however ulceration has failed to improve with this and compression stocking. He continues to change dressing daily with Renuka and does have visiting nursing to assist in dressing changes. States that he continues to wear his compression stocking and tries to elevate when possible. He does assist in care for his so elevation at all times of rest poses difficulty. Denies trauma to the leg. Denies N/V/F/chills/SOB. Denies further complaints. Subjective Subjective This is a 74-year-old male who returns to the wound care center today for continued care of left lower extremity ulceration secondary to chronic venous stasis. He is assisted by his son today. He continues to tolerate the 3M compression wrap well. States no wound present today. Has not yet updated compression stockings. Denies constitutional symptoms. Denies further complaints. Objective Data Objective Data Vital Signs: Vital Signs Temp Pulse Resp BP 97.3 F L 72 18 118/60 12/26/24 08:36 12/26/24 08:36 12/26/24 08:36 12/26/24 08:36 Weight: 100.344 kg Body Mass Index (BMI) 29.9 Physical Exam Const alert, oriented x3 and no apparent distress General Appearance: cooperative HEENT normocephalic Eyes General Eye: normal appearance of both eyes Neck General: normal visual inspection Lymph Lymphatic: no lymphadenopathy noted and no lymphedema noted Resp normal respiratory effort Cardio regular rate and regular rhythm Extremity no calf tenderness Extremity Narrative: Vascular: DP and PT pulses weakly palpable. CFT less than 5 seconds to digits. Normal temperature gradient. Hair growth is absent to digits. Neurologic: Gross sensation intact. Protective sensation is diminished secondary to diabetic peripheral polyneuropathy. Musculoskeletal: Muscle strength 5 of 5 age-appropriate. Decreased range of motion of the ankle joint in dorsiflexion with the knee extended without pain or crepitus. No pain to palpation of calf. Decreased range of motion of the first metatarsophalangeal joint in dorsiflexion achieving less than 5 degrees range of motion consistent with hallux limitus. No pain to palpation about the ulcerative site. Dermatologic: Skin is xerotic with hemosiderin deposition about the lower extremity secondary to chronic venous insufficiency/stasis. There is some mild nonpitting edema lower extremity/foot, which is improving. There is an full-thickness ulceration to the lateral aspect of the lower extremity which has improved with epithelializing skin consistent with healed status. No evidence of new bullae formation. No erythema, no purulent drainage, no malodor, no palpable fluctuance/bogginess. No signs of infection. Previous site of ulceration overlying the IPJ of the hallux remains healed. Skin no rashes or lesions noted and skin turgor normal General Skin Exam: venous stasis and dermatitis Neuro moves all extremities Debridement Note Debridement Note No debridement was completed: No debridement was completed today Post-Debridement Measurements and Additional Note: Post-Debridement Measurements/Treatment - Nurse 1 - General Ulcer Assessment Start: 12/19/24 08:31 Freq: Status: Active Protocol: [email or web address].LOWEXT Activity Type Activity Date Activity User E-sign Co-sign Detail Recorded Client Recorded Date Recorded By Document 12/19/24 08:31 CP [id number] 12/19/24 08:45 CP Document 12/26/24 08:36 KW [id number] 12/26/24 08:44 KW 12/19/24 12/26/24 08:31 08:36 - Today's Visit Information Type of service Follow-up Visit Follow-up Visit (Physician/CONFERENCE SERVICE COORDINATOR (Physician/CONFERENCE SERVICE COORDINATOR ) ) Arrival Mode Ambulatory, Ambulatory, Walker Walker Patient Identification Verified (Name & Yes Yes ) Patient Requires Transmission-Based No Precautions Safety Precautions Fall Prevention Height and Weight Body Mass Index (BMI) 29.9 29.9 BMI Classification Overweight Overweight Vital Signs Temperature (97.8 F-99.1 F) 98.9 F 97.3 F L Temperature Source Temporal Temporal Pulse Rate (60-100) 81 72 Pulse Location Monitor Monitor Respiratory Rate (12-18) 18 18 Respiratory rate source Observation Observation Blood Pressure (90/60-120/80) 127/69 H 118/60 Blood Pressure Mean (mm Hg) 88 79 Source Monitor Manual Position Sitting Blood Pressure Location Left Arm Left Arm History Since Last Visit- (Skip if this is Patient's initial visit) Have you changed medications since your No No last visit? Any new allergies or adverse reactions No No Had a fall/change in ADL's that may No No increase risk of falls Signs or symptoms of abuse and/or No No neglect since last visit Have you been in the hospital since your No No last visit? Has dressing in place as prescribed Yes Yes Has compression in place as prescribed Yes Yes Has offloadiing in place as prescribed N/A N/A Experienced any changes in pain level or No No management Pain Scale: 0-10 Numeric Is Patient Pain Free? No Yes WC - Nurse 1 - General Ulcer Measurement Start: 12/19/24 08:31 Freq: Status: Active Protocol: Activity Type Activity Date Activity User E-sign Co-sign Detail Recorded Client Recorded Date Recorded By Document 12/19/24 08:31 CP [id number] 12/19/24 08:45 CP Document 12/26/24 08:36 KW [id number] 12/26/24 08:44 KW 12/19/24 12/26/24 08:31 08:36 Wound Center Nurse 1 #1 LLE LAT -Current Size (cm) - Length 0.1 0.1 -Current Size (cm) - Width 0.1 0.1 -Current Size (cm) - Depth 0.1 0.1 -Total Square Cm 0.01 0.01 -Date of Last Picture (Recall this 12/19/24 field) -Photo Taken Yes Yes -Epithelialization Large 67-100% -Exudate Amt None Present None Present -Wound Margin Thickened -Granulation Amt None Present (0 %) -Necrosis Amt Small (1-33%) -Necrotic Tissue Type Eschar -Structure Exposed N/A -Texture (Lyndsey-wound Skin Appearance) No Abnormality -Moisture (Lyndsey-wound Skin Appearance) Dry/Scaly -Color (Lyndsey-wound Skin Appearance) Hemosiderin Staining -Temperature (Lyndsey-wound Skin No Abnormality No Abnormality Appearance) (Pt Warm) (Pt Warm) -Tenderness on Palpation (Lyndsey-wound No Skin Appearance) -Ulcer Cleansing Soap and Water Soap and Water -Foul Odor after Cleansing No -Anesthetic Used 5% Lidocaine Gel Right Calf (cm) 40 Right Ankle (cm) 28.5 Left Calf (cm) 38.2 39.2 Left Ankle (cm) 27.1 28.5 WC - Nurse 2 - General Ulcer CM Notes Start: 12/19/24 08:31 Freq: Status: Active Protocol: Activity Type Activity Date Activity User E-sign Co-sign Detail Recorded Client Recorded Date Recorded By Document 12/19/24 09:08 BMF [id number] 12/19/24 09:11 BMF Edit Result 12/19/24 09:08 BMF (1) [id number] 12/19/24 09:11 BMF Edit Result 12/19/24 09:08 BMF (2) [id number] 12/19/24 13:20 BMF Document 12/26/24 09:02 BMF [id number] 12/26/24 09:05 BMF (1) #1 LLE LAT - Post Debridement (cm) - Length => 0.1 - Post Debridement (cm) - Width => 0.1 - Post Debridement (cm) - Depth => 0.1 - Total Square (Post) (cm) => 0.01 - Area of Debridement (cm) - Length => 0.1 - Area of Debridement (cm) - Width => 0.1 - Total Square (Area) (cm) => 0.01 (2) #1 LLE LAT - Bleeding Controlled with Pressure => NA - Treatment Response Procedure => Tolerated Well => 12/19/24 12/26/24 09:08 09:02 Wound Center Nurse 2 #1 LLE LAT -Time 09:08 09:02 -Post Debridement (cm) - Length 0.1 0 -Post Debridement (cm) - Width 0.1 0 -Post Debridement (cm) - Depth 0.1 0 -Total Square (Post) (cm) 0.01 0 -Area of Debridement (cm) - Length 0.1 0 -Area of Debridement (cm) - Width 0.1 0 -Total Square (Area) (cm) 0.01 0 -Wound/Ulcer Outcome Healed- Healed- Epithelialized Epithelialized -Bleeding Controlled with NA NA Pain Scale: 0-10 Numeric Is Patient Pain Free? Yes Yes WC - Nurse 3 - General Ulcer D/C NN Start: 12/19/24 08:31 Freq: Status: Active Protocol: Activity Type Activity Date Activity User E-sign Co-sign Detail Recorded Client Recorded Date Recorded By Document 12/19/24 09:25 CP [id number] 12/19/24 09:27 CP 12/19/24 09:25 Wound Care Center Nurse 3 Right -Tubular Bandage Double Layer -Size of Tubigrip Used Size E -Size E ($) 2 Left -Tubular Bandage Double Layer -Size of Tubigrip Used Size E -Size E ($) 2 Pain Scale: 0-10 Numeric Is Patient Pain Free? No WC - Visit Discharge Discharge Condition Stable Ambulatory Status Walker Transportation Private Auto Clinical Summary of Care Provided Yes Assessment/Plan Assessment/Plan (1) Non-pressure chronic ulcer of left calf with fat layer exposed: CODE(S): L97.222 - Non-pressure chronic ulcer of left calf with fat layer exposed (2) Diabetes mellitus with diabetic polyneuropathy: CODE(S): E11.42 - Type 2 diabetes mellitus with diabetic polyneuropathy (3) Diabetes mellitus with ulcer of calf: CODE(S): E11.622 - Type 2 diabetes mellitus with other skin ulcer; L97.209 - Non-pressure chronic ulcer of unspecified calf with unspecified severity (4) Venous insufficiency (chronic) (peripheral): CODE(S): I87.2 - Venous insufficiency (chronic) (peripheral) (5) Bilateral lower extremity edema: CODE(S): R60.0 - Localized edema (6) Atrial fibrillation: CODE(S): I48.91 - Unspecified atrial fibrillation QUALIFIERS: Atrial fibrillation type: longstanding persistent Qualified Code(s): I48.11 - Longstanding persistent atrial fibrillation (7) Debility: CODE(S): R53.81 - Other malaise PLAN: Plan Patient seen and evaluated Predebridement measurement: Healed Ulceration did not undergo debridement as noted in the clinical panel above. Postdebridement measurements demonstrate healed status. Site demonstrates continued epithelializing skin which is more durable than previous visit. Tubigrip compression applied to left lower extremity and Tubigrip compression applied to right lower extremity. There is continued reduction in size of the ulcer versus previous visit and site has healed. Now that ulceration has healed recommend continued wearing/updating of compression stockings to prevent recidivism. Have discussed updating stockings every 6 months. Will continue to elevate lower extremities at times of rest Recommended continued intake of protein to aid in wound healing. Discussed signs and symptoms of infection with patient and son. Discussed if he notices increasing redness about the ulcerative site that spreads up the leg, any purulent drainage from the ulcerative site, increasing foul odor from the ulcerative site, or if he experiences fever greater than 101 degree accompanied by nausea, vomiting, chills that these are signs of a progressing infection and he should report to the ED for IV antibiotics and further evaluation. He is understanding of this today. The following work up and care recommendations were made: Dressing: Tubigrip compression bilateral lower extremity Wash: Soap and water Tissue growth optimization: None Offload: Tubigrip compression and elevation of the lower extremities Vascular: DP and PT pulses weakly palpable and cap fill less than 5 seconds to digits, do not feel this is impacting healing as issue is related to venous stasis/edema Edema: Tubigrip compression and elevation of lower extremities Infection: No signs of infection Pain: May take Tylenol for discomfort. No pain about the ulcerative site secondary to diabetic peripheral polyneuropathy Host factors: DM type II with peripheral polyneuropathy, A-fib, chronic venous insufficiency/stasis, lower extremity edema Discussed reevaluation in a couple weeks to ensure updating of compression stocking and continued compliance with wearing. I answered all the patient's questions. To return to the wound healing center in 2 weeks or call sooner if the patient has any questions or concerns.
[2025-01-09 08:48] VITALS: BP 142/53; PULSE 64; RESP 18; TEMP 36.1; BMI 29.9
--- NOTE | 2025-01-09 10:31 | PN.PCM_ITS ---
History of Present Illness Date of Service: 01/09/25 Chief Complaint: Venous stasis ulceration left lower extremity History of Wound: This is a 74-year-old male who presents to the wound care center for continued aid in healing of a venous stasis ulceration to the lateral aspect of the left lower extremity. Ulceration is secondary to chronic venous insufficiency and lower extremity edema. He had been unable to wear his compression stockings due to significant edema and previous heart failure. 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 This did lead to improvement in lower extremity edema however still does get swelling secondary to his chronic venous insufficiency which did lead to ulceration to the lateral aspect of the left leg. He had been undergoing local wound care in office over the course of 6 weeks with applications of Renuka however ulceration has failed to improve with this and compression stocking. He continues to change dressing daily with Renuka and does have visiting nursing to assist in dressing changes. States that he continues to wear his compression stocking and tries to elevate when possible. He does assist in care for his so elevation at all times of rest poses difficulty. Denies trauma to the leg. Denies N/V/F/chills/SOB. Denies further complaints. Subjective Subjective This is a 74-year-old male who returns to the wound care center today for continued care of left lower extremity ulceration secondary to chronic venous stasis. He is assisted by his son today. He continues to tolerate the 3M compression wrap well. States no wound present today and he remains healed. He has updated compression stockings and did bring them today. Denies constitutional symptoms. Denies further complaints. Objective Data Objective Data Vital Signs: Vital Signs Temp Pulse Resp BP O2 Del Method 97.0 F L 64 18 142/53 H Room Air 01/09/25 08:48 01/09/25 08:48 01/09/25 08:48 01/09/25 08:48 01/09/25 08:48 Oxygen Delivery Method Room Air Weight: 100.344 kg Body Mass Index (BMI) 29.9 Physical Exam Const alert, oriented x3 and no apparent distress General Appearance: cooperative HEENT normocephalic Eyes General Eye: normal appearance of both eyes Neck General: normal visual inspection Lymph Lymphatic: no lymphadenopathy noted and no lymphedema noted Resp normal respiratory effort Cardio regular rate and regular rhythm Extremity no calf tenderness Extremity Narrative: Vascular: DP and PT pulses weakly palpable. CFT less than 5 seconds to digits. Normal temperature gradient. Hair growth is absent to digits. Neurologic: Gross sensation intact. Protective sensation is diminished secondary to diabetic peripheral polyneuropathy. Musculoskeletal: Muscle strength 5 of 5 age-appropriate. Decreased range of motion of the ankle joint in dorsiflexion with the knee extended without pain or crepitus. No pain to palpation of calf. Decreased range of motion of the first metatarsophalangeal joint in dorsiflexion achieving less than 5 degrees range of motion consistent with hallux limitus. No pain to palpation about the ulcer ative site. Dermatologic: Skin is xerotic with hemosiderin deposition about the lower extremity secondary to chronic venous insufficiency/stasis. There is some mild nonpitting edema lower extremity/foot, which is improving. There is an full- thickness ulceration to the lateral aspect of the lower extremity which has healed. No evidence of new bullae formation. No signs of infection. Previous si te of ulceration overlying the IPJ of the hallux remains healed. Skin no rashes or lesions noted and skin turgor normal General Skin Exam: venous stasis and dermatitis Neuro moves all extremities Debridement Note Debridement Note No debridement was completed: No debridement was completed today Post-Debridement Measurements and Additional Note: Post-Debridement Measurements/Treatment - Nurse 1 - General Ulcer Assessment Start: 12/19/24 08:31 Freq: Status: Active Protocol: [email or web address] Activity Type Activity Date Activity User E-sign Co-sign Detail Recorded Client Recorded Date Recorded By Document 12/19/24 08:31 CP [id number] 12/19/24 08:45 CP Document 12/26/24 08:36 KW [id number] 12/26/24 08:44 KW Document 01/09/25 08:48 KW [id number] 01/09/25 08:53 KW 12/19/24 12/26/24 01/09/25 08:31 08:36 08:48 - Today's Visit Information Type of service Follow-up Visit Follow-up Visit Follow-up Visit (Physician/LEARNING COORDINATOR (Physician/LEARNING COORDINATOR (Physician/LEARNING COORDINATOR ) ) ) Arrival Mode Ambulatory, Ambulatory, Ambulatory, Walker Walker Walker Patient Identification Verified (Name & Yes Yes Yes ) Patient Requires Transmission-Based No Precautions Safety Precautions Fall Prevention Height and Weight Body Mass Index (BMI) 29.9 29.9 29.9 BMI Classification Overweight Overweight Overweight Vital Signs Temperature (97.8 F-99.1 F) 98.9 F 97.3 F L 97.0 F L Temperature Source Temporal Temporal Temporal Pulse Rate (60-100) 81 72 64 Pulse Location Monitor Monitor Monitor Respiratory Rate (12-18) 18 18 18 Respiratory rate source Observation Observation Observation Oxygen Delivery Method Room Air Blood Pressure (90/60-120/80) 127/69 H 118/60 142/53 H Blood Pressure Mean (mm Hg) 88 79 82 Source Monitor Manual Monitor Position Sitting Sitting Blood Pressure Location Left Arm Left Arm Right Arm History Since Last Visit- (Skip if this is Patient's initial visit) Have you changed medications since your No No No last visit? Any new allergies or adverse reactions No No No Had a fall/change in ADL's that may No No No increase risk of falls Signs or symptoms of abuse and/or No No No neglect since last visit Have you been in the hospital since your No No No last visit? Has dressing in place as prescribed Yes Yes Yes Has compression in place as prescribed Yes Yes Yes Has offloadiing in place as prescribed N/A N/A N/A Experienced any changes in pain level or No No No management Left Footwear Regular Shoe Right Footwear Regular Shoe Pain Scale: 0-10 Numeric Is Patient Pain Free? No Yes No shoulders and back -Description Sharp,Aching WC - Nurse 1 - General Ulcer Measurement Start: 12/19/24 08:31 Freq: Status: Active Protocol: Activity Type Activity Date Activity User E-sign Co-sign Detail Recorded Client Recorded Date Recorded By Document 12/19/24 08:31 CP [id number] 12/19/24 08:45 CP Document 12/26/24 08:36 KW [id number] 12/26/24 08:44 KW Document 01/09/25 08:48 KW [id number] 01/09/25 08:53 KW 12/19/24 12/26/24 01/09/25 08:31 08:36 08:48 Wound Center Nurse 1 #1 LLE LAT -Current Size (cm) - Length 0.1 0.1 -Current Size (cm) - Width 0.1 0.1 -Current Size (cm) - Depth 0.1 0.1 -Total Square Cm 0.01 0.01 -Date of Last Picture (Recall this 12/19/24 field) -Photo Taken Yes Yes -Epithelialization Large 67-100% -Exudate Amt None Present None Present -Wound Margin Thickened -Granulation Amt None Present (0 %) -Necrosis Amt Small (1-33%) -Necrotic Tissue Type Eschar -Structure Exposed N/A -Texture (Lyndsey-wound Skin Appearance) No Abnormality -Moisture (Lyndsey-wound Skin Appearance) Dry/Scaly -Color (Lyndsey-wound Skin Appearance) Hemosiderin Staining -Temperature (Lyndsey-wound Skin No Abnormality No Abnormality Appearance) (Pt Warm) (Pt Warm) -Tenderness on Palpation (Lyndsey-wound No Skin Appearance) -Ulcer Cleansing Soap and Water Soap and Water -Foul Odor after Cleansing No -Anesthetic Used 5% Lidocaine Gel Right Calf (cm) 40 38 Right Ankle (cm) 28.5 32 Left Calf (cm) 38.2 39.2 38.2 Left Ankle (cm) 27.1 28.5 29 WC - Nurse 2 - General Ulcer CM Notes Start: 12/19/24 08:31 Freq: Status: Active Protocol: Activity Type Activity Date Activity User E-sign Co-sign Detail Recorded Client Recorded Date Recorded By Document 12/19/24 09:08 BMF [id number] 12/19/24 09:11 BMF Edit Result 12/19/24 09:08 BMF (1) [id number] 12/19/24 09:11 BMF Edit Result 12/19/24 09:08 BMF (2) [id number] 12/19/24 13:20 BMF Document 12/26/24 09:02 BMF [id number] 12/26/24 09:05 BMF Document 01/09/25 09:23 BMF [id number] 01/09/25 09:24 BMF (1) #1 LLE LAT - Post Debridement (cm) - Length => 0.1 - Post Debridement (cm) - Width => 0.1 - Post Debridement (cm) - Depth => 0.1 - Total Square (Post) (cm) => 0.01 - Area of Debridement (cm) - Length => 0.1 - Area of Debridement (cm) - Width => 0.1 - Total Square (Area) (cm) => 0.01 (2) #1 LLE LAT - Bleeding Controlled with Pressure => NA - Treatment Response Procedure => Tolerated Well => 12/19/24 12/26/24 01/09/25 09:08 09:02 09:23 Wound Center Nurse 2 #1 JOSHUA LAT -Time 09:08 09:02 -Post Debridement (cm) - Length 0.1 0 -Post Debridement (cm) - Width 0.1 0 -Post Debridement (cm) - Depth 0.1 0 -Total Square (Post) (cm) 0.01 0 -Area of Debridement (cm) - Length 0.1 0 -Area of Debridement (cm) - Width 0.1 0 -Total Square (Area) (cm) 0.01 0 -Wound/Ulcer Outcome Healed- Healed- Epithelialized Epithelialized -Bleeding Controlled with NA NA Pain Scale: 0-10 Numeric Is Patient Pain Free? Yes Yes Yes - Nurse 3 - General Ulcer D/C NN Start: 12/19/24 08:31 Freq: Status: Active Protocol: Activity Type Activity Date Activity User E-sign Co-sign Detail Recorded Client Recorded Date Recorded By Document 12/19/24 09:25 [id number] 12/19/24 09:27 CP Document 01/09/25 09:36 [facility] [id number] 01/09/25 09:37 BMF 12/19/24 01/09/25 09:25 09:36 Wound Care Center Nurse 3 Right -Tubular Bandage Double Layer -Size of Tubigrip Used Size E -Size E ($) 2 Left -Tubular Bandage Double Layer -Size of Tubigrip Used Size E -Size E ($) 2 Pain Scale: 0-10 Numeric Is Patient Pain Free? No Yes - Visit Discharge Discharge Condition Stable Stable Ambulatory Status Walker Ambulatory, Walker Transportation Private Auto Private Auto Accompanied by son and here Clinical Summary of Care Provided Yes ble -Other applied pts own new compression stockings. fit well Treatment Response Procedure Tolerated Well Assessment/Plan Assessment/Plan (1) Non-pressure chronic ulcer of left calf with fat layer exposed: CODE(S): L97.222 - Non-pressure chronic ulcer of left calf with fat layer exposed (2) Diabetes mellitus with diabetic polyneuropathy: CODE(S): E11.42 - Type 2 diabetes mellitus with diabetic polyneuropathy (3) Diabetes mellitus with ulcer of calf: CODE(S): E11.622 - Type 2 diabetes mellitus with other skin ulcer; L97.209 - Non-pressure chronic ulcer of unspecified calf with unspecified severity (4) Venous insufficiency (chronic) (peripheral): CODE(S): I87.2 - Venous insufficiency (chronic) (peripheral) (5) Bilateral lower extremity edema: CODE(S): R60.0 - Localized edema (6) Atrial fibrillation: CODE(S): I48.91 - Unspecified atrial fibrillation QUALIFIERS: Atrial fibrillation type: longstanding persistent Qualified Code(s): I48.11 - Longstanding persistent atrial fibrillation (7) Debility: CODE(S): R53.81 - Other malaise PLAN: Plan Patient seen and evaluated Predebridement measurement: Healed Ulceration did not undergo debridement as noted in the clinical panel above. Ulceration remains healed. Site demonstrates continued epithelializing skin which is more durable than previous visit. Compression stocking applied to bilateral lower extremity Now that ulceration has healed recommend continued wearing of compression stockings to prevent recidivism. Have discussed updating stockings every 6 months. Will continue to elevate lower extremities at times of rest The following work up and care recommendations were made: Dressing: Compression stocking bilateral lower extremity Wash: Soap and water Tissue growth optimization: None Offload: Compression stocking and elevation of the lower extremities Vascular: DP and PT pulses weakly palpable and cap fill less than 5 seconds to digits, do not feel this is impacting healing as issue is related to venous stasis/edema Edema: Tubigrip compression and elevation of lower extremities Infection: No signs of infection Pain: May take Tylenol for discomfort. No pain about the ulcerative site secondary to diabetic peripheral polyneuropathy Host factors: DM type II with peripheral polyneuropathy, A-fib, chronic venous insufficiency/stasis, lower extremity edema At this time with wound healed he is being discharged from the wound care center today. He will continue to follow in office for regular diabetic foot and ankle examinations and fitting/measurement of new diabetic shoe gear with custom offloading inserts.
== END 2025-01-10 11:06 | disposition home or self-care (01) ==
LOC: WC 08:45
PROVIDERS: PCP Family Medicine Geriatric Medicine; Referring Provider Student in an Organized Health Care Education/Training Program; Visit Provider Student in an Organized Health Care Education/Training Program
DX: I83.022 Varicose veins of left lower extremity with ulcer of calf (principal); L97.222 Non-pressure chronic ulcer of left calf with fat layer exposed; I48.11 Longstanding persistent atrial fibrillation; E11.59 Type 2 diabetes mellitus with other circulatory complications; E11.42 Type 2 diabetes mellitus with diabetic polyneuropathy; I87.2 Venous insufficiency (chronic) (peripheral); R53.81 Other malaise; R60.0 Localized edema
CPT/HCPCS: 99212; 99213; G0463

== ENCOUNTER 2025-02-03 09:46 | Outpatient (RCR) | payer MEDICARE, SELFPAY ==
[2025-02-03 10:37] LABS: International Normalized Ratio 2.6; Prothrombin Time (Protime)PT. 28.3 SECONDS (11.7-14.9)
== END 2025-02-03 18:00 | disposition home or self-care (01) ==
LOC: LAB 09:46
PROVIDERS: PCP Family Medicine Geriatric Medicine; Referring Provider Internal Medicine Cardiovascular Disease; Visit Provider Internal Medicine Cardiovascular Disease
DX: Z79.01 Long term (current) use of 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s (principal)
CPT/HCPCS: 36415; 85610

== ENCOUNTER 2025-03-10 15:57 | Outpatient (RCR) | payer MEDICARE, SELFPAY ==
[2025-03-10 16:41] LABS: International Normalized Ratio 2.5; Prothrombin Time (Protime)PT. 27.3 SECONDS (11.7-14.9)
== END 2025-03-12 18:00 | disposition home or self-care (01) ==
LOC: LAB 15:57
PROVIDERS: PCP Family Medicine Geriatric Medicine; Referring Provider Internal Medicine Cardiovascular Disease; Visit Provider Internal Medicine Cardiovascular Disease
DX: Z79.01 Long term (current) use of 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s (principal)
CPT/HCPCS: 36415; 85610

== ENCOUNTER → 2025-03-18 | Outpatient (CLI) | payer MEDICARE, SELFPAY ==
[2025-03-18 17:39] LABS: Absolute Lymphocyte Count 1.28 X10^3/uL (0.83-4.51); Absolute Neutrophil Count 3.8 X10^3/uL (2.0-7.7); Basophil# 0.07 X10^3/uL; Basophil% 1.1 % (0-1); Eosinophil# 0.21 X10^3/uL; Eosinophils% 3.4 % (0-5); Hemoglobin 10.9 g/dL (13.0-16.5); Lymphocyte # 1.28 X10^3/ul (0.83-4.51); Lymphocyte % 20.8 % (19-41); Mean Corp Hgb Conc 31.1 g/dL (32-36); Mean Corpuscular Volume 93.1 fL (80-94); Mean Platelet Vol. 11.3 fl (6.2-12.0); Monocyte# 0.78 X10^3/uL; Monocyte% 12.7 % (0-10); NRBC Flagged by Analyzer 0 % (0-5); Neutrophil % 61.8 % (47-70); Platelet Count 157 K/mm3 (150-450); RBC Distribution Width CV 14.8 % (11.6-14.6); RBC Distribution Width SD 50.7 fl (35.1-43.9); Red Blood Count 3.76 M/mm3 (4.6-6.2); White Blood Count 6.2 K/mm3 (4.4-11.0)
[2025-03-18 18:16] LABS: AST(SGOT) 20 U/L (<=37); Alanine Aminotransfer ALT/SGPT 11 U/L (<=46); Albumin, Serum 3.8 g/dL (3.4-4.8); Alkaline Phosphatase 114 U/L (40-129); Anion Gap 11 (5-15); BUN 17 mg/dL (4-19); BUN/Creat Ratio 15.6 RATIO (10-20); Calcium,Total 9.5 mg/dL (7.6-11.0); Carbon Dioxide 26.5 mmol/L (21.0-32.0); Chloride 105 mmol/L (98-108); Creatinine, Serum 1.09 mg/dL (0.70-1.20); EST Glomerular Filtration Rate 71 (>60); Glucose 131 mg/dL (70-99); Protein, Total 7.7 g/dL (5.9-8.4); Sodium Level 143 mmol/L (133-145); Total Bilirubin 0.81 mg/dL (0.00-1.30); Vitamin D,25 Hydroxy 26.5 ng/mL (30-100)
[2025-03-18 19:56] LABS: Cholesterol 100 mg/dL (<=200); High Density Lipoprotein 58 mg/dL; Low Density Lipoprotein Calc. 28 mg/dL; Triglycerides 66 mg/dL; Very Low Density Lipoprotein 13 mg/dL (5-40); cholesterol:hdl ratio screen 1.71
[2025-03-18 21:33] LABS: M R Staph aureus DNA By PCR Negative (Negative); Probe Check PASS; Specimen Processing Control PASS; Staph aureus DNA By PCR POSITIVE (Negative)
--- NOTE | 2025-03-29 19:25 | HP.PCM_ITS ---
History of Present Illness Date of Service: 03/27/25 Chief Complaint: Venous stasis ulcerations bilaterally History of Wound: This is a 74-year-old male who is well-known to the Wound Center, a patient of Dr. Shady Ogden. He has recently been treated for a venous stasis ulceration of the left lower extremity, for which he was treated at the Wound Center earlier this year. He has a longstanding history of swelling and edema in his lower extremities. He now presented with venous stasis ulcerations in both lower extremities. Cultures were obtained on March 18, 2025, by his primary care physician, Dr. Sutton, which were positive for methicillin-resistant Staph aureus, Enterococcus faecalis, and Rothia kristinae. The patient is currently in the midst of a prescription for linezolid, showering daily with Hibiclens, and using mupirocin in his nares. This represents the first episode of MRSA. The patient claims to have graduated compression stockings of 20 to 30 mmHg compression, which he claims to be wearing daily. He denies a history of deep vein thrombosis. He claims to sleep on a flat mattress at night. He also claims to lead an active lifestyle. The patient is on long-term anticoagulation with warfarin. The patient has multiple pre-existing medical conditions, and previously has undergone a transcutaneous aortic valve replacement (TAVR). While his medical records suggest a history of diabetes mellitus, the patient denies this diagnosis. [facility] Medical History BPH (benign prostatic hyperplasia) MRSA (methicillin resistant staph aureus) culture positive Aortic stenosis longterm (current) use of 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s RAFAEL on CPAP Chronic pain syndrome HLD (hyperlipidemia) Obesity (HFpEF) heart failure with preserved ejection fraction Longstanding persistent atrial fibrillation History of atrial fibrillation Anemia Congestive heart failure Medical non-compliance Compression fx, thoracic spine Hypertension Former smoker COPD (chronic obstructive pulmonary disease) Home Medications ?Medication ?Instructions ?Recorded ?Last Taken ?Type simvastatin 10 mg tablet 10 mg PO QHS cholesterol 02/22/24 History terazosin 2 mg capsule 2 mg PO QHS prostate 2 02/22/24 History albuterol sulfate 90 mcg/actuation 1 puff inhalation Q 4H PRN SOB 02/08/24 02/23/24 History aerosol inhaler tiotropium 2.5 mcg-olodaterol 2.5 1 puff inhalation BI D breathing 02/08/24 Unknown History mcg/actuation mist for inhalation (Stiolto Respimat) acetaminophen 500 mg tablet 1,000 mg (2 x 500 mg) PO Q 8 #0 tabs 03/06/24 Unknown Rx sennosides 8.6 mg-docusate sodium 2 tab PO BID 30 days #120 tabs 03/06/24 Unknown Rx 50 mg tablet (Stool Softener-Stimulant Laxative) ferrous sulfate 325 mg (65 mg 325 mg PO QDAY 03/25/24 Unknown History iron) tablet (FeroSul) oxycodone 10 mg tablet 10 mg PO TID PRN pain 06/03/24 History warfarin 5 mg tablet 5 mg PO .COMPLEX #180 tabs 0 02/11/25 Unknown Rx furosemide 80 mg tablet 80 mg PO QDAY 03/17/25 Unkno wn History doxepin 10 mg capsule 10 mg PO DAILY 03/27/25 Unkn own History linezolid 600 mg tablet 600 mg PO Q12.TCU 03/27/25 U nknown History mupirocin 2 % topical ointment 1 applic topical BID Unknown History Allergy/AdvReac Type Severity Reaction Status Date / Time pramoxine Allergy Rash Verified 03/27/25 15:08 Family History Mother Cancer Father CAD (coronary artery disease) Heart disease Hypertension Myocardial infarction Surgical History S/P TAVR (transcatheter aortic valve replacement) History of bilateral cataract extraction History of cardiac radiofrequency ablation (RFA) History of tonsillectomy and adenoidectomy Social History household members: family Smoking Status: Former smoker how long ago did patient quit smoking: Quit ~ 35 yrs prior. alcohol intake: never substance use type: does not use Physical Exam Const alert, oriented x3 and no apparent distress General Appearance: cooperative and well developed Orientation / Consciousness: awake, oriented to person, oriented to place and oriented to time HEENT normocephalic and head/scalp atraumatic Head and Scalp: normal to inspection Face and Sinus: normal facial exam External Ear: external ears normal Eyes General Eye: normal appearance of both eyes Resp normal respiratory effort, normal air movement, no retractions and no use of accessory muscles Effort and Inspection: able to speak in complete sentences Extremity no calf tenderness Skin no rashes or lesions noted and skin turgor normal General Skin Exam: venous stasis and dermatitis Wound Narrative: A small ulceration is noted on the patient's right medial calf. Dimensions are documented elsewhere. The ulceration is full-thickness, and margins are not well beveled. There is no overt sign of infection or cellulitis. A full- thickness ulceration is also noted on the patient's left medial calf. Dimensions are documented elsewhere. The ulceration is full-thickness, and margins are not well beveled. No obvious signs of infection or cellulitis are noted. Two adjacent full-thickness ulcerations are noted on the patient's distal left lateral calf, the dimensions of which are documented elsewhere. Ulcer margins are not well beveled. There is no obvious sign of infection or cellulitis. Severe lipodermatosclerosis and hyperpigmentation is noted in the gaiter areas bilaterally, as well as scaly, eczematous, venous stasis dermatitis. Neuro oriented x3, CN's II-XII intact bilaterally, moves all extremities and no focal motor deficits Sensorium / Orientation: awake, alert, oriented to person, oriented to place and oriented to time Debridement Note Debridement Note Wound debrided: Left medial calf ulceration and left lateral calf ulcerations Laterality: Left Type of Debridement: Excisional debridement Anesthesia Used: 5% Lidocaine Gel Depth: Down to and including healthy tissue and in the subcutaneous layer Percentage of wound debrided: 100 Instrument Used: 3mm curette Tissue Removed: Bioburden and devitalized tissue Severity: Fat Layer Exposed Amount of bleeding with debridement: Mild Bleeding Controlled with: Compression and gauze Patient tolerated procedure: Patient tolerated procedure well Additional Wound Wound debrided: Right medial calf ulceration Laterality: Right Type of Debridement: Excisional debridement Anesthesia Used: 5% Lidocaine Gel Depth: Down to and including healthy tissue and in the subcutaneous layer Percentage of wound debrided: 100 Instrument Used: 3mm curette Tissue Removed: Bioburden and devitalized tissue Severity: Fat Layer Exposed Amount of bleeding with debridement: Mild Bleeding Controlled with: Compression and gauze Patient tolerated procedure: Patient tolerated procedure well Lab / Micro Data Attestation: I reviewed the patient's lab results. Lab results narrative: Laboratory Tests 03/18/25 16:55 WBC 6.2 Hgb 10.9 L Hct 35.0 L Plt Count 157 Sodium 143 Potassium 4.0 Chloride 105 Carbon Dioxide 26.5 BUN 17 Creatinine 1.09 Glucose 131 H Calcium 9.5 Total Bilirubin 0.81 AST 20 ALT 11 Alkaline Phosphatase 114 Total Protein 7.7 Albumin 3.8 Triglycerides 66 Cholesterol 100 LDL Cholesterol, Calc 28 VLDL Cholesterol 13 HDL Cholesterol 58 03/18/25 16:55 03/18/25 16:55 Charges/Coding Multi Select Codes Visit Charges Office Visit/Consults: 43811 OV L4 New 45 min Integumentary Integumentary CPT Codes: 69578 Marlene subq tissue 20 sq cm/< Assessment/Plan Assessment/Plan (1) Non-pressure chronic ulcer of left calf with fat layer exposed: CODE(S): L97.222 - Non-pressure chronic ulcer of left calf with fat layer exposed (2) Venous insufficiency (chronic) (peripheral): CODE(S): I87.2 - Venous insufficiency (chronic) (peripheral) (3) Bilateral lower extremity edema: CODE(S): R60.0 - Localized edema (4) Diabetes mellitus with diabetic polyneuropathy: CODE(S): E11.42 - Type 2 diabetes mellitus with diabetic polyneuropathy QUALIFIERS: Diabetes mellitus type: type 2 (5) Diabetes mellitus with ulcer of calf: CODE(S): E11.622 - Type 2 diabetes mellitus with other skin ulcer; L97.209 - Non-pressure chronic ulcer of unspecified calf with unspecified severity (6) Atrial fibrillation: CODE(S): I48.91 - Unspecified atrial fibrillation QUALIFIERS: Atrial fibrillation type: longstanding persistent Q ualified Code(s): I48.11 - Longstanding persistent atrial fibrillation (7) Debility: CODE(S): R53.81 - Other malaise (8) Hypertension: CODE(S): I10 - Essential (primary) hypertension QUALIFIERS: Hypertension type: primary hypertension Qualified Code(s): I10 - Essential (primary) hypertension (9) HLD (hyperlipidemia): CODE(S): E78.5 - Hyperlipidemia, unspecified QUALIFIERS: Hyperlipidemia type: mixed hyperlipidemia Qualified Code(s): E78.2 - Mixed hyperlipidemia (10) BPH (benign prostatic hyperplasia): CODE(S): N40.0 - Benign prostatic hyperplasia without lower urinary tract symptoms (11) longterm (current) use of 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s: CODE(S): Z79.01 - long term care pharmacist (current) use of 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s (12) S/P TAVR (transcatheter aortic valve replacement): CODE(S): Z95.2 - Presence of prosthetic heart valve (13) Aortic stenosis: CODE(S): I35.0 - Nonrheumatic aortic (valve) stenosis QUALIFIERS: Cardiac valve disease etiology: nonrheumatic Q ualified Code(s): I35.0 - Nonrheumatic aortic (valve) stenosis PLAN: Plan This is a 74-year-old male who presented with bilateral lower extremity venous stasis ulcerations, and manifestations of severe venous stasis dermatitis. His venous disease is chronic, and he has been treated for venous stasis ulcerations in the past. A lengthy discussion has been undertaken with the patient, and his [id number], who is at the bedside. The patient has been encouraged to sleep on a flat mattress at night. Leg elevation has been encouraged during daytime hours is much as possible. Leg elevation is to be to heart level, or higher. Prolonged idle sitting has been discouraged. Ambulation has been encouraged. Based upon recent cultures, the patient is to continue with his prescription for linezolid, to shower daily with Hibiclens, and use mupirocin intranasally. The patient has been encouraged to optimize his nutritional intake. He denies that he is diabetic. We are to implement the use of the Unna compression boots, which will be applied bilaterally, and changed twice weekly. The Unna compression boots will provide the needed compression to the lower extremities, and the zinc oxide will be therapeutic topically. The patient is to follow-up in one week with Dr. Shady Ogden, his regular Wound Center provider. It is noted that the patient's is in the intensive care unit at [facility], providing additional hardships for the patient and his family. Total time: 45 minutes
== END | disposition home or self-care (01) ==
LOC: LAB 16:43
PROVIDERS: PCP Family Medicine Geriatric Medicine; Referring Provider Family Medicine Geriatric Medicine; Visit Provider Family Medicine Geriatric Medicine
DX: S81.802A Unspecified open wound, left lower leg, initial encounter (principal); E78.5 Hyperlipidemia, unspecified; I10 Essential (primary) hypertension; E55.9 Vitamin D deficiency, unspecified
CPT/HCPCS: 36415; 80053; 80061; 82306; 84443; 85025; 87070; 87077; 87186; 87205; 87640

== ENCOUNTER 2025-04-10 08:15 | Outpatient (RCR) | payer MEDICARE, SELFPAY ==
[2025-03-27 14:52] VITALS: BP 125/55; PULSE 71; RESP 18; TEMP 36.9; BMI 35.5
--- NOTE | 2025-03-28 09:52 | WC ---
PHOTO 03/27/25 RIGHT [facility]
--- NOTE | 2025-03-28 09:52 | WC ---
PHOTO 03/27/25 LEFT [facility]
--- NOTE | 2025-03-28 09:53 | WC ---
PHOTO 03/27/25 LEFT [facility]
[2025-03-31 10:50] VITALS: BP 112/68; PULSE 93; RESP 22; TEMP 36.6; BMI 35.5
[2025-04-03 08:03] VITALS: BP 91/48; PULSE 81; RESP 18; TEMP 36.2; BMI 35.5
--- NOTE | 2025-04-03 09:02 | PCM.WC.PN ---
History of Present Illness Date of Service: 04/03/25 Chief Complaint: Venous stasis ulceration left lower extremity History of Wound: This is a 74-year-old male who presents to the wound care center for continued aid in healing of a venous stasis ulceration to the lateral aspect of the left lower extremity. Ulceration is secondary to chronic venous insufficiency and lower extremity edema. He had been unable to wear his compression stockings due to significant edema and previous heart failure. 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 This did lead to improvement in lower extremity edema however still does get swelling secondary to his chronic venous insufficiency which did lead to ulceration to the lateral aspect of the left leg. He had been undergoing local wound care in office over the course of 6 weeks with applications of Renuka however ulceration has failed to improve with this and compression stocking. He continues to change dressing daily with Renuka and does have visiting nursing to assist in dressing changes. States that he continues to wear his compression stocking and tries to elevate when possible. He does assist in care for his so elevation at all times of rest poses difficulty. Denies trauma to the leg. Denies N/V/F/chills/SOB. Denies further complaints. Subjective Subjective 74-year-old male presents to the wound care center for continued care of bilateral lower extremity venous stasis ulcerations. He had previously seen Dr. Santiago last week and Unna boot compression was applied following debridement. He is attempting to continue to elevate legs is much as possible. Stating he believes reulceration occurred due to scrubbing and picking skin in the shower. He denies constitutional symptoms. Denies further complaints today. Objective Data Objective Data Vital Signs: Vital Signs Temp Pulse Resp BP O2 Del Method 97.2 F L 81 18 91/48 L Room Air 04/03/25 08:03 04/03/25 08:03 04/03/25 08:03 04/03/25 08:03 04/03/25 08:03 Oxygen Delivery Method Room Air Weight: 105.994 kg Body Mass Index (BMI) 35.5 Physical Exam Const alert, oriented x3 and no apparent distress General Appearance: cooperative HEENT normocephalic Eyes General Eye: normal appearance of both eyes Neck General: normal visual inspection Lymph Lymphatic: no lymphadenopathy noted and no lymphedema noted Resp normal respiratory effort Cardio regular rate and regular rhythm Extremity no calf tenderness Extremity Narrative: Bilateral lower extremity: Vascular: DP and PT pulses weakly palpable. CFT is less than 5 seconds to digits. Normal temperature gradient. Hair growth is absent to digits. Neurologic: Gross sensation intact. There is decreased protective sensation consistent with diabetic peripheral polyneuropathy. Musculoskeletal: Muscle strength 5 of 5 age-appropriate. There is decreased range of motion of the ankle joint dorsiflexion with the knee extended without pain or crepitus bilateral. There is decreased range of motion of the first metatarsophalangeal joint without pain or crepitus bilateral. No pain to palpation of calf bilateral. Dermatologic: Bilateral lower extremities demonstrate lipodermatosclerosis with hyperpigmentation to the pretibial region. Previous scaling/eczematous skin has improved following compression of Unna boot therapy. Full-thickness ulceration to the right lower extremity has healed. There are 2 full-thickness ulcerations to the left lower extremity 1 medial and 1 lateral. Both ulcerations demonstrate mixed fibrogranular layer. No signs of infection. Skin no rashes or lesions noted General Skin Exam: venous stasis and dermatitis Neuro moves all extremities Debridement Note Debridement Note Wound debrided: Left lower extremity x 2 Laterality: Left Wound Grade/Stage: Swain stage I Type of Debridement: Excisional debridement Anesthesia Used: 5% Lidocaine Gel Depth: Down to and including healthy tissue and in the subcutaneous layer Percentage of wound debrided: 100 Instrument Used: 5mm curette Tissue Removed: Fibrous, devitalized subcutaneous, biofilm, slough Severity: Fat Layer Exposed Amount of bleeding with debridement: Mild Bleeding Controlled with: Compression and gauze Patient tolerated procedure: Patient tolerated procedure well Post-Debridement Measurements and Additional Note: Post-Debridement Measurements/Treatment - Nurse 1 - General Ulcer Assessment Start: 03/27/25 14:52 Freq: Status: Active Protocol: LIZZY Activity Type Activity Date Activity User E-sign Co-sign Detail Recorded Client Recorded Date Recorded By Document 03/27/25 14:52 DL [id number] 03/27/25 15:07 DL Document 03/31/25 10:50 DL [id number] 03/31/25 11:15 DL Document 04/03/25 08:03 KW [id number] 04/03/25 08:17 KW 03/27/25 03/31/25 04/03/25 14:52 10:50 08:03 - Today's Visit Information Type of service Initial Visit Nurse-only Follow-up Visit Visit (Physician/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 OPERATOR ) Arrival Mode Ambulatory, Ambulatory, Ambulatory, Walker Walker Walker Transfer Assistance None None Patient Identification Verified (Name & Yes Yes Yes ) Patient Requires Transmission-Based No No Precautions Height and Weight Height 5 ft 8 in Weight 105.994 kg Weight in Pounds 233.7 lbs Body Mass Index (BMI) 35.5 35.5 35.5 BMI Classification Obese Obese Obese Vital Signs Temperature (97.8 F-99.1 F) 98.4 F 97.8 F 97.2 F L Temperature Source Temporal Temporal Temporal Pulse Rate (60-100) 71 93 81 Pulse Location Monitor Monitor Monitor Respiratory Rate (12-18) 18 22 H 18 Respiratory rate source Observation Observation Observation Oxygen Delivery Method Room Air Blood Pressure (90/60-120/80) 125/55 H 112/68 91/48 L Blood Pressure Mean (mm Hg) 78 82 62 Source Monitor Monitor Monitor Position Semi-Fowlers Blood Pressure Location Left Forearm History Since Last Visit- (Skip if this is Patient's initial visit) Have you changed medications since your No No last visit? Any new allergies or adverse reactions No No Had a fall/change in ADL's that may No No increase risk of falls Signs or symptoms of abuse and/or No No neglect since last visit Have you been in the hospital since your No No last visit? Has dressing in place as prescribed Yes Yes Has compression in place as prescribed Yes Yes Has offloadiing in place as prescribed N/A N/A Experienced any changes in pain level or No No management Left Footwear Regular Shoe Right Footwear Regular Shoe Pain Scale: 0-10 Numeric Is Patient Pain Free? Yes Yes Yes - Nurse 1 - General Ulcer Measurement Start: 03/27/25 14:52 Freq: Status: Active Protocol: Activity Type Activity Date Activity User E-sign Co-sign Detail Recorded Client Recorded Date Recorded By Document 03/27/25 14:52 DL [id number] 03/27/25 15:07 DL Document 03/31/25 10:50 DL [id number] 03/31/25 11:15 DL Document 04/03/25 08:03 KW [id number] 04/03/25 08:17 KW 03/27/25 03/31/25 04/03/25 14:52 10:50 08:03 Wound Center Nurse 1 #4 RLE med -Current Size (cm) - Length 0.2 0.1 -Current Size (cm) - Width 0.2 0.1 -Current Size (cm) - Depth 0.2 0 -Total Square Cm 0.04 0.01 -Photo Taken Yes -Exudate Amt Medium None Present -Exudate Type Serosanguineous -Wound Margin Distinct, Indistinct, Non Outline -Visible Attached -Granulation Amt Small (1-33%) None Present (0 %) -Granulation Quality Red -Necrosis Amt Small (1-33%) None Present (0 %) -Necrotic Tissue Type Adherent Slough -Structure Exposed N/A -Texture (Lyndsey-wound Skin Appearance) Scarring Assessed -Moisture (Lyndsey-wound Skin Appearance) Dry/Scaly Assessed -Color (Lyndsey-wound Skin Appearance) Hemosiderin Assessed Staining -Temperature (Lyndsey-wound Skin No Abnormality No Abnormality No Abnormality Appearance) (Pt Warm) (Pt Warm) (Pt Warm) -Tenderness on Palpation (Lyndsey-wound No No No Skin Appearance) -Ulcer Cleansing Soap and Water Soap and Water Soap and Water -Foul Odor after Cleansing No No No -Anesthetic Used 5% Lidocaine Gel #5 LLE med -Current Size (cm) - Length 2.4 3 -Current Size (cm) - Width 3 4 -Current Size (cm) - Depth 0.2 0.1 -Total Square Cm 7.2 12 -Photo Taken Yes -Exudate Amt Medium Small -Exudate Type Serosanguineous Serosanguineous -Wound Margin Distinct, Distinct, Outline Outline Attached Attached -Granulation Amt Medium (34-66%) Large (67-100%) -Granulation Quality Red Red -Necrosis Amt Small (1-33%) Small (1-33%) -Necrotic Tissue Type Adherent Slough Adherent Slough -Structure Exposed N/A -Texture (Lyndsey-wound Skin Appearance) Scarring Assessed -Moisture (Lyndsey-wound Skin Appearance) No Abnormality Assessed -Color (Lyndsey-wound Skin Appearance) Mottled Assessed, Erythema -Temperature (Lyndsey-wound Skin No Abnormality No Abnormality No Abnormality Appearance) (Pt Warm) (Pt Warm) (Pt Warm) -Tenderness on Palpation (Lyndsey-wound No No No Skin Appearance) -Ulcer Cleansing Soap and Water Soap and Water Soap and Water -Foul Odor after Cleansing No No No -Anesthetic Used 5% Lidocaine 5% Lidocaine Gel Gel #3 LLE Lat Cluster -Current Size (cm) - Length 5 5.5 -Current Size (cm) - Width 1.4 1.8 -Current Size (cm) - Depth 0.2 0.1 -Total Square Cm 7.0 9.90 -Photo Taken Yes -Exudate Amt Medium Medium -Exudate Type Serosanguineous Serosanguineous -Wound Margin Distinct, Distinct, Outline Outline Attached Attached -Granulation Amt Large (67-100%) Large (67-100%) -Granulation Quality Red Red -Necrosis Amt Small (1-33%) Small (1-33%) -Necrotic Tissue Type Adherent Slough Adherent Slough -Structure Exposed N/A -Texture (Lyndsey-wound Skin Appearance) Scarring Assessed -Moisture (Lyndsey-wound Skin Appearance) Dry/Scaly Assessed -Color (Lyndsey-wound Skin Appearance) Hemosiderin Assessed, Staining Erythema -Temperature (Lyndsey-wound Skin No Abnormality No Abnormality Appearance) (Pt Warm) (Pt Warm) -Tenderness on Palpation (Lyndsey-wound No Skin Appearance) -Ulcer Cleansing Soap and Water Soap and Water Soap and Water -Foul Odor after Cleansing No No No -Anesthetic Used 5% Lidocaine 5% Lidocaine Gel Gel -Wound Comment(s) Unna boot only applied to vishnu LE. Right Calf (cm) 38.8 39.2 38.6 Right Ankle (cm) 28.7 27.4 28.5 Left Calf (cm) 45.2 40.5 39.5 Left Ankle (cm) 27.7 27.2 27.5 WC - Nurse 2 - General Ulcer CM Notes Start: 03/27/25 14:52 Freq: Status: Active Protocol: Activity Type Activity Date Activity User E-sign Co-sign Detail Recorded Client Recorded Date Recorded By Document 03/27/25 15:28 [facility] [id number] 03/27/25 15:43 BM Document 04/03/25 08:44 [facility] [id number] 04/03/25 08:50 BM 03/27/25 04/03/25 15:28 08:44 Wound Center Nurse 2 #4 RLE med -Time 15:35 08:44 -Correct Patient Yes -Correct Side, Site, Position Yes -Correct Procedure Yes -Procedure Performed Yes No -Type of Procedure Debridement -Clinical Debridement Subcutaneous -Tissue Removed Subcutaneous -Post Debridement (cm) - Length 0.2 0 -Post Debridement (cm) - Width 0.2 0 -Post Debridement (cm) - Depth 0.2 0 -Total Square (Post) (cm) 0.04 0 -Area of Debridement (cm) - Length 0.2 0 -Area of Debridement (cm) - Width 0.2 0 -Total Square (Area) (cm) 0.04 0 -Tunneling No -Undermining/Tunneling No -Circular Undermining No -Wound/Ulcer Outcome Not Healed Healed- Epithelialized -Ulcer Cleansing Rinsed/ Irrigated with Saline -Foul Odor after Cleansing No -Bioengineered Tissue No -Bleeding Controlled with Pressure NA -Treatment Response Procedure Tolerated Well -Debridement - Subq, 1st 20sq cm No #5 LLE med -Time 15:34 08:45 -Correct Patient Yes Yes -Correct Side, Site, Position Yes Yes -Correct Procedure Yes Yes -Procedure Performed Yes Yes -Type of Procedure Debridement Debridement -Clinical Debridement Subcutaneous Subcutaneous -Tissue Removed Subcutaneous Subcutaneous -Post Debridement (cm) - Length 2.4 2 -Post Debridement (cm) - Width 3 1.5 -Post Debridement (cm) - Depth 0.2 0.1 -Total Square (Post) (cm) 7.2 3.0 -Area of Debridement (cm) - Length 2.4 2 -Area of Debridement (cm) - Width 3 1.5 -Total Square (Area) (cm) 7.2 3.0 -Tunneling No No -Undermining/Tunneling No No -Circular Undermining No No -Wound/Ulcer Outcome Not Healed Not Healed -Ulcer Cleansing Rinsed/ Rinsed/ Irrigated with Irrigated with Saline Saline -Foul Odor after Cleansing No No -Bioengineered Tissue No No -Bleeding Controlled with Pressure Pressure -Treatment Response Procedure Procedure Tolerated Well Tolerated Well -Debridement - Subq, 1st 20sq cm Yes Yes #3 LLE Lat Cluster -Time 15:35 08:45 -Correct Patient Yes Yes -Correct Side, Site, Position Yes Yes -Correct Procedure Yes Yes -Procedure Performed Yes Yes -Type of Procedure Debridement Debridement -Clinical Debridement Subcutaneous Subcutaneous -Tissue Removed Subcutaneous Subcutaneous -Post Debridement (cm) - Length 5 3 -Post Debridement (cm) - Width 1.4 2.2 -Post Debridement (cm) - Depth 0.2 0.1 -Total Square (Post) (cm) 7.0 6.6 -Area of Debridement (cm) - Length 5 3 -Area of Debridement (cm) - Width 1.4 2.2 -Total Square (Area) (cm) 7.0 6.6 -Tunneling No No -Undermining/Tunneling No No -Circular Undermining No No -Wound/Ulcer Outcome Not Healed Not Healed -Ulcer Cleansing Rinsed/ Rinsed/ Irrigated with Irrigated with Saline Saline -Foul Odor after Cleansing No No -Bioengineered Tissue No No -Bleeding Controlled with Pressure Pressure -Treatment Response Procedure Procedure Tolerated Well Tolerated Well -Debridement - Subq, 1st 20sq cm No No Pain Scale: 0-10 Numeric Is Patient Pain Free? Yes Yes - Nurse 3 - General Ulcer D/C NN Start: 03/27/25 14:52 Freq: Status: Active Protocol: Activity Type Activity Date Activity User E-sign Co-sign Detail Recorded Client Recorded Date Recorded By Document 03/27/25 16:11 RB [id number] 03/27/25 16:12 RB Document 03/31/25 10:50 DL [id number] 03/31/25 11:15 DL 03/27/25 03/31/25 16:11 10:50 Wound Care Center Nurse 3 BLE -Multi-Layered Wrap Application Unna Boot - Unna Boot - Bilateral Bilateral -Unna- Bilat (Qty applied) 1 1 Treatment Response Procedure Tolerated Well Pain Scale: 0-10 Numeric Is Patient Pain Free? Yes Yes - Visit Discharge Discharge Condition Stable Stable Ambulatory Status Ambulatory, Ambulatory Walker Transportation Private Auto Private Auto Medication Reconcilliation completed & No provided to patient/care provider Clinical Summary of Care Provided Yes Notes: two boxes unnas used bilat Assessment/Plan Assessment/Plan (1) Non-pressure chronic ulcer of left calf with fat layer exposed: CODE(S): L97.222 - Non-pressure chronic ulcer of left calf with fat layer exposed (2) Venous insufficiency (chronic) (peripheral): CODE(S): I87.2 - Venous insufficiency (chronic) (peripheral) (3) Diabetes mellitus with diabetic polyneuropathy: CODE(S): E11.42 - Type 2 diabetes mellitus with diabetic polyneuropathy QUALIFIERS: Diabetes mellitus type: type 2 (4) Diabetes mellitus with ulcer of calf: CODE(S): E11.622 - Type 2 diabetes mellitus with other skin ulcer; L97.209 - Non-pressure chronic ulcer of unspecified calf with unspecified severity (5) Bilateral lower extremity edema: CODE(S): R60.0 - Localized edema (6) Lipodermatosclerosis of both lower extremities: CODE(S): M79.3 - Panniculitis, unspecified PLAN: Plan Patient seen and evaluated Predebridement ulceration measurement: Right lower extremity healed Left medial lower extremity 2.0 x 1.4 x 0.1 cm Left lateral lower extremity 2.9 cm x 2.1 cm x 0.1 cm Ulceration underwent debridement as noted in the clinical panel above. Postdebridement measurement: Left medial lower extremity 2.1 cm x 1.5 cm x 0.1 cm; left lateral lower extremity 3.0 cm x 2.2 cm x 0.1 cm. Renuka applied to ulcerative bases and bilateral Unna boot compression was applied. Will return on 04/08/2025 for Unna boot change with nurse visit. It has been discussed with the patient that he is to continue to sleep on flat mattress at night with leg elevation as much as possible at night and throughout the day to be heart level or higher. He has been advised against prolonged sitting. 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 He has been advised to not pick at any dry skin or excessively scrub while in the shower to prevent opening of ulcerations as his skin is friable. Skin continues to improve via use of bilateral Unna boot compression. Discussed signs and symptoms of infection. Discussed if he notices increasing redness about his legs moving up the leg, if he notices any purulent drainage from his wound sites, increasing foul odor from the wound sites, or if he experiences fever greater than 101 degree accompanied by nausea, vomiting, chills that these are signs of a progressing infection and he should report to the ED for IV antibiotic and further evaluation. He is understanding of this today. The following work up and care recommendations were made: Dressing: Renuka to ulcerative bed. Unna boot compression bilateral lower extremity Wash: Do not get wet. Utilize cast bag when showering to maintain compliance. Tissue growth optimization: Renuka Offload: Unna boot compression therapy Vascular: Vascular status not impeding healing, chronic venous stasis and lipodermatosclerosis do complicate healing. Edema: Unna boot compression therapy and elevation of lower extremities at all times of rest. Infection: No signs of infection currently. Will finish oral linezolid and continue with intranasal mupirocin. Pain: May take [id number] Tylenol Extra Strength for any discomfort. Currently no pain secondary to diabetic peripheral polyneuropathy Host factors: DM type II with peripheral polyneuropathy, lipodermatosclerosis/chronic venous stasis to complicate healing. He will return 04/08/2025 for change of Unna boot to bilateral lower extremities as nurse visit. I answered all the patient's questions. To return to the wound healing center in 1 week or call sooner if the patient has any questions or concerns.
[2025-04-08 14:20] VITALS: BP 130/73; PULSE 68; RESP 18; TEMP 36.6; BMI 35.5
[2025-04-10 08:12] VITALS: BP 108/57; PULSE 92; RESP 20; TEMP 37.1; BMI 35.5
--- NOTE | 2025-04-10 09:21 | PCM.WC.PN ---
History of Present Illness Date of Service: 04/10/25 Chief Complaint: Venous stasis ulceration left lower extremity History of Wound: This is a 74-year-old male who presents to the wound care center for continued aid in healing of a venous stasis ulceration to the lateral aspect of the left lower extremity. Ulceration is secondary to chronic venous insufficiency and lower extremity edema. He had been unable to wear his compression stockings due to significant edema and previous heart failure. 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 This did lead to improvement in lower extremity edema however still does get swelling secondary to his chronic venous insufficiency which did lead to ulceration to the lateral aspect of the left leg. He had been undergoing local wound care in office over the course of 6 weeks with applications of Benito however ulceration has failed to improve with this and compression stocking. He continues to change dressing daily with Benito and does have visiting nursing to assist in dressing changes. States that he continues to wear his compression stocking and tries to elevate when possible. He does assist in care for his so elevation at all times of rest poses difficulty. Denies trauma to the leg. Denies N/V/F/chills/SOB. Denies further complaints. Subjective Subjective 74-year-old male presents to the wound care center for continued care of bilateral lower extremity venous stasis ulcerations. He continues Unna boot compression and is tolerating this well. He is attempting to continue to elevate legs is much as possible. Reports is still in the hospital and is not doing well. He denies constitutional symptoms. Denies further complaints today. Objective Data Objective Data Vital Signs: Vital Signs Temp Pulse Resp BP O2 Del Method 98.7 F 92 20 H 108/57 L Room Air 04/10/25 08:12 04/10/25 08:12 04/10/25 08:12 04/10/25 08:12 04/08/25 14:20 Oxygen Delivery Method Room Air Weight: 105.994 kg Body Mass Index (BMI) 35.5 Physical Exam Const alert, oriented x3 and no apparent distress General Appearance: cooperative HEENT normocephalic Eyes General Eye: normal appearance of both eyes Neck General: normal visual inspection Lymph Lymphatic: no lymphadenopathy noted and no lymphedema noted Resp normal respiratory effort Cardio regular rate and regular rhythm Extremity no calf tenderness Extremity Narrative: Bilateral lower extremity: Vascular: DP and PT pulses weakly palpable. CFT is less than 5 seconds to digits. Normal temperature gradient. Hair growth is absent to digits. Neurologic: Gross sensation intact. There is decreased protective sensation consistent with diabetic peripheral polyneuropathy. Musculoskeletal: Muscle strength 5 of 5 age-appropriate. There is decreased range of motion of the ankle joint dorsiflexion with the knee extended without pain or crepitus bilateral. There is decreased range of motion of the first metatarsophalangeal joint without pain or crepitus bilateral. No pain to palpation of calf bilateral. Dermatologic: Bilateral lower extremities demonstrate lipodermatosclerosis with hyperpigmentation to the pretibial region. Previous scaling/eczematous skin has improved following compression of Unna boot therapy. Full-thickness ulceration to the right lower extremity remains healed. There are 2 full-thickness ulcerations to the left lower extremity 1 medial and 1 lateral. Both ulcerations demonstrate mixed fibrogranular layer. No signs of infection. Skin no rashes or lesions noted General Skin Exam: venous stasis and dermatitis Neuro moves all extremities Debridement Note Debridement Note Wound debrided: Left lower extremity x 2 Laterality: Left Wound Grade/Stage: Swain stage I Type of Debridement: Excisional debridement Anesthesia Used: 5% Lidocaine Gel Depth: Down to and including healthy tissue and in the subcutaneous layer Percentage of wound debrided: 100 Instrument Used: 5mm curette Tissue Removed: Fibrous, devitalized subcutaneous, biofilm, slough Severity: Fat Layer Exposed Amount of bleeding with debridement: Mild Bleeding Controlled with: Compression and gauze Patient tolerated procedure: Patient tolerated procedure well Post-Debridement Measurements and Additional Note: Post-Debridement Measurements/Treatment WC - Nurse 1 - General Ulcer Assessment Start: 03/27/25 14:52 Freq: Status: Active Protocol: [email or web address] Activity Type Activity Date Activity User E-sign Co-sign Detail Recorded Client Recorded Date Recorded By Document 03/27/25 14:52 DL [id number] 03/27/25 15:07 DL Document 03/31/25 10:50 DL [id number] 03/31/25 11:15 DL Document 04/03/25 08:03 KW [id number] 04/03/25 08:17 KW Document 04/08/25 14:20 KW [id number] 04/08/25 14:45 KW Document 04/10/25 08:12 DL [id number] 04/10/25 08:25 DL 03/27/25 03/31/25 04/03/25 14:52 10:50 08:03 WC - Today's Visit Information Type of service Initial Visit Nurse-only Follow-up Visit Visit (Physician/ONLINE TRADER ) Arrival Mode Ambulatory, Ambulatory, Ambulatory, Walker Walker Walker Transfer Assistance None None Patient Identification Verified (Name & Yes Yes Yes ) Patient Requires Transmission-Based No No Precautions Height and Weight Height 5 ft 8 in Weight 105.994 kg Weight in Pounds 233.7 lbs Body Mass Index (BMI) 35.5 35.5 35.5 BMI Classification Obese Obese Obese Vital Signs Temperature (97.8 F-99.1 F) 98.4 F 97.8 F 97.2 F L Temperature Source Temporal Temporal Temporal Pulse Rate (60-100) 71 93 81 Pulse Location Monitor Monitor Monitor Respiratory Rate (12-18) 18 22 H 18 Respiratory rate source Observation Observation Observation Oxygen Delivery Method Room Air Blood Pressure (90/60-120/80) 125/55 H 112/68 91/48 L Blood Pressure Mean (mm Hg) 78 82 62 Source Monitor Monitor Monitor Position Semi-Fowlers Blood Pressure Location Left Forearm History Since Last Visit- (Skip if this is Patient's initial visit) Have you changed medications since your No No last visit? Any new allergies or adverse reactions No No Had a fall/change in ADL's that may No No increase risk of falls Signs or symptoms of abuse and/or No No neglect since last visit Have you been in the hospital since your No No last visit? Has dressing in place as prescribed Yes Yes Has compression in place as prescribed Yes Yes Has offloadiing in place as prescribed N/A N/A Experienced any changes in pain level or No No management Left Footwear Regular Shoe Right Footwear Regular Shoe Pain Scale: 0-10 Numeric Is Patient Pain Free? Yes Yes Yes 04/08/25 04/10/25 14:20 08:12 WC - Today's Visit Information Type of service Nurse-only Follow-up Visit Visit (Physician/ONLINE TRADER ) Arrival Mode Ambulatory, Ambulatory, Walker Walker Transfer Assistance None Patient Identification Verified (Name & Yes Yes ) Patient Requires Transmission-Based No Precautions Height and Weight Height Weight Weight in Pounds Body Mass Index (BMI) 35.5 35.5 BMI Classification Obese Obese Vital Signs Temperature (97.8 F-99.1 F) 97.8 F 98.7 F Temperature Source Temporal Temporal Pulse Rate (60-100) 68 92 Pulse Location Monitor Monitor Respiratory Rate (12-18) 18 20 H Respiratory rate source Observation Observation Oxygen Delivery Method Room Air Blood Pressure (90/60-120/80) 130/73 H 108/57 L Blood Pressure Mean (mm Hg) 92 74 Source Monitor Monitor Position Sitting Blood Pressure Location Left Arm History Since Last Visit- (Skip if this is Patient's initial visit) Have you changed medications since your No No last visit? Any new allergies or adverse reactions No No Had a fall/change in ADL's that may No No increase risk of falls Signs or symptoms of abuse and/or No No neglect since last visit Have you been in the hospital since your No No last visit? Has dressing in place as prescribed Yes Yes Has compression in place as prescribed Yes Yes Has offloadiing in place as prescribed N/A N/A Experienced any changes in pain level or No No management Left Footwear Regular Shoe Right Footwear Regular Shoe Pain Scale: 0-10 Numeric Is Patient Pain Free? Yes Yes WC - Nurse 1 - General Ulcer Measurement Start: 03/27/25 14:52 Freq: Status: Active Protocol: Activity Type Activity Date Activity User E-sign Co-sign Detail Recorded Client Recorded Date Recorded By Document 03/27/25 14:52 DL [id number] 03/27/25 15:07 DL Document 03/31/25 10:50 DL [id number] 03/31/25 11:15 DL Document 04/03/25 08:03 KW [id number] 04/03/25 08:17 KW Document 04/10/25 08:12 DL [id number] 04/10/25 08:25 DL 03/27/25 03/31/25 04/03/25 14:52 10:50 08:03 Wound Center Nurse 1 #4 RLE med -Current Size (cm) - Length 0.2 0.1 -Current Size (cm) - Width 0.2 0.1 -Current Size (cm) - Depth 0.2 0 -Total Square Cm 0.04 0.01 -Photo Taken Yes -Exudate Amt Medium None Present -Exudate Type Serosanguineous -Wound Margin Distinct, Indistinct, Non Outline -Visible Attached -Granulation Amt Small (1-33%) None Present (0 %) -Granulation Quality Red -Necrosis Amt Small (1-33%) None Present (0 %) -Necrotic Tissue Type Adherent Slough -Structure Exposed N/A -Texture (Lyndsey-wound Skin Appearance) Scarring Assessed -Moisture (Lyndsey-wound Skin Appearance) Dry/Scaly Assessed -Color (Lyndsey-wound Skin Appearance) Hemosiderin Assessed Staining -Temperature (Lyndsey-wound Skin No Abnormality No Abnormality No Abnormality Appearance) (Pt Warm) (Pt Warm) (Pt Warm) -Tenderness on Palpation (Lyndsey-wound No No No Skin Appearance) -Ulcer Cleansing Soap and Water Soap and Water Soap and Water -Foul Odor after Cleansing No No No -Anesthetic Used 5% Lidocaine Gel #5 LLE med -Current Size (cm) - Length 2.4 3 -Current Size (cm) - Width 3 4 -Current Size (cm) - Depth 0.2 0.1 -Total Square Cm 7.2 12 -Photo Taken Yes -Exudate Amt Medium Small -Exudate Type Serosanguineous Serosanguineous -Wound Margin Distinct, Distinct, Outline Outline Attached Attached -Granulation Amt Medium (34-66%) Large (67-100%) -Granulation Quality Red Red -Necrosis Amt Small (1-33%) Small (1-33%) -Necrotic Tissue Type Adherent Slough Adherent Slough -Structure Exposed N/A -Texture (Lyndsey-wound Skin Appearance) Scarring Assessed -Moisture (Lyndsey-wound Skin Appearance) No Abnormality Assessed -Color (Lyndsey-wound Skin Appearance) Mottled Assessed, Erythema -Temperature (Lyndsey-wound Skin No Abnormality No Abnormality No Abnormality Appearance) (Pt Warm) (Pt Warm) (Pt Warm) -Tenderness on Palpation (Lyndsey-wound No No No Skin Appearance) -Ulcer Cleansing Soap and Water Soap and Water Soap and Water -Foul Odor after Cleansing No No No -Anesthetic Used 5% Lidocaine 5% Lidocaine Gel Gel #3 LLE Lat Cluster -Current Size (cm) - Length 5 5.5 -Current Size (cm) - Width 1.4 1.8 -Current Size (cm) - Depth 0.2 0.1 -Total Square Cm 7.0 9.90 -Photo Taken Yes -Exudate Amt Medium Medium -Exudate Type Serosanguineous Serosanguineous -Wound Margin Distinct, Distinct, Outline Outline Attached Attached -Granulation Amt Large (67-100%) Large (67-100%) -Granulation Quality Red Red -Necrosis Amt Small (1-33%) Small (1-33%) -Necrotic Tissue Type Adherent Slough Adherent Slough -Structure Exposed N/A -Texture (Lyndsey-wound Skin Appearance) Scarring Assessed -Moisture (Lyndsey-wound Skin Appearance) Dry/Scaly Assessed -Color (Lyndsey-wound Skin Appearance) Hemosiderin Assessed, Staining Erythema -Temperature (Lyndsey-wound Skin No Abnormality No Abnormality Appearance) (Pt Warm) (Pt Warm) -Tenderness on Palpation (Lyndsey-wound No Skin Appearance) -Ulcer Cleansing Soap and Water Soap and Water Soap and Water -Foul Odor after Cleansing No No No -Anesthetic Used 5% Lidocaine 5% Lidocaine Gel Gel -Wound Comment(s) Unna boot only applied to vishnu LE. Right Calf (cm) 38.8 39.2 38.6 Right Ankle (cm) 28.7 27.4 28.5 Point of Measurement (cm from the distal point) Left Calf (cm) 45.2 40.5 39.5 Point of measurement (cm from the medial instep) Left Ankle (cm) 27.7 27.2 27.5 04/10/25 08:12 Wound Center Nurse 1 #4 RLE med -Current Size (cm) - Length -Current Size (cm) - Width -Current Size (cm) - Depth -Total Square Cm -Photo Taken -Exudate Amt -Exudate Type -Wound Margin -Granulation Amt -Granulation Quality -Necrosis Amt -Necrotic Tissue Type -Structure Exposed -Texture (Lyndsey-wound Skin Appearance) -Moisture (Lyndsey-wound Skin Appearance) -Color (Lyndsey-wound Skin Appearance) -Temperature (Lyndsey-wound Skin Appearance) -Tenderness on Palpation (Lyndsey-wound Skin Appearance) -Ulcer Cleansing -Foul Odor after Cleansing -Anesthetic Used #5 LLE med -Current Size (cm) - Length 1.6 -Current Size (cm) - Width 0.7 -Current Size (cm) - Depth 0.1 -Total Square Cm 1.12 -Photo Taken -Exudate Amt Medium -Exudate Type Serosanguineous -Wound Margin Distinct, Outline Attached -Granulation Amt Large (67-100%) -Granulation Quality Red -Necrosis Amt Small (1-33%) -Necrotic Tissue Type Adherent Slough -Structure Exposed N/A -Texture (Lyndsey-wound Skin Appearance) Scarring -Moisture (Lyndsey-wound Skin Appearance) No Abnormality -Color (Lyndsey-wound Skin Appearance) Hemosiderin Staining -Temperature (Lyndsey-wound Skin No Abnormality Appearance) (Pt Warm) -Tenderness on Palpation (Lyndsey-wound Skin Appearance) -Ulcer Cleansing Soap and Water -Foul Odor after Cleansing No -Anesthetic Used 5% Lidocaine Gel #3 LLE Lat Cluster -Current Size (cm) - Length 4.6 -Current Size (cm) - Width 1.5 -Current Size (cm) - Depth 0.1 -Total Square Cm 6.90 -Photo Taken -Exudate Amt Medium -Exudate Type Serosanguineous -Wound Margin Distinct, Outline Attached -Granulation Amt Medium (34-66%) -Granulation Quality Red -Necrosis Amt Medium (34-66%) -Necrotic Tissue Type Adherent Slough -Structure Exposed N/A -Texture (Lyndsey-wound Skin Appearance) Scarring -Moisture (Lyndsey-wound Skin Appearance) No Abnormality -Color (Lyndsey-wound Skin Appearance) Hemosiderin Staining -Temperature (Lyndsey-wound Skin No Abnormality Appearance) (Pt Warm) -Tenderness on Palpation (Lyndsey-wound Skin Appearance) -Ulcer Cleansing Soap and Water -Foul Odor after Cleansing No -Anesthetic Used 5% Lidocaine Gel -Wound Comment(s) Right Calf (cm) 38 Right Ankle (cm) 26.8 Point of Measurement (cm from the distal 37.5 point) Left Calf (cm) Point of measurement (cm from the medial 27.8 instep) Left Ankle (cm) WC - Nurse 2 - General Ulcer CM Notes Start: 03/27/25 14:52 Freq: Status: Active Protocol: Activity Type Activity Date Activity User E-sign Co-sign Detail Recorded Client Recorded Date Recorded By Document 03/27/25 15:28 [facility] [id number] 03/27/25 15:43 BM Document 04/03/25 08:44 BM [id number] 04/03/25 08:50 BM Document 04/10/25 08:36 BM [id number] 04/10/25 08:39 BMF 03/27/25 04/03/25 04/10/25 15:28 08:44 08:36 Wound Center Nurse 2 #4 RLE med -Time 15:35 08:44 -Correct Patient Yes -Correct Side, Site, Position Yes -Correct Procedure Yes -Procedure Performed Yes No -Type of Procedure Debridement -Clinical Debridement Subcutaneous -Tissue Removed Subcutaneous -Post Debridement (cm) - Length 0.2 0 -Post Debridement (cm) - Width 0.2 0 -Post Debridement (cm) - Depth 0.2 0 -Total Square (Post) (cm) 0.04 0 -Area of Debridement (cm) - Length 0.2 0 -Area of Debridement (cm) - Width 0.2 0 -Total Square (Area) (cm) 0.04 0 -Tunneling No -Undermining/Tunneling No -Circular Undermining No -Wound/Ulcer Outcome Not Healed Healed- Epithelialized -Ulcer Cleansing Rinsed/ Irrigated with Saline -Foul Odor after Cleansing No -Bioengineered Tissue No -Bleeding Controlled with Pressure NA -Treatment Response Procedure Tolerated Well -Debridement - Subq, 1st 20sq cm No #5 LLE med -Time 15:34 08:45 08:37 -Correct Patient Yes Yes Yes -Correct Side, Site, Position Yes Yes Yes -Correct Procedure Yes Yes Yes -Procedure Performed Yes Yes Yes -Type of Procedure Debridement Debridement Debridement -Clinical Debridement Subcutaneous Subcutaneous Subcutaneous -Tissue Removed Subcutaneous Subcutaneous Subcutaneous -Post Debridement (cm) - Length 2.4 2 1.6 -Post Debridement (cm) - Width 3 1.5 1 -Post Debridement (cm) - Depth 0.2 0.1 0.1 -Total Square (Post) (cm) 7.2 3.0 1.6 -Area of Debridement (cm) - Length 2.4 2 1.6 -Area of Debridement (cm) - Width 3 1.5 1 -Total Square (Area) (cm) 7.2 3.0 1.6 -Tunneling No No No -Undermining/Tunneling No No No -Circular Undermining No No No -Wound/Ulcer Outcome Not Healed Not Healed Not Healed -Ulcer Cleansing Rinsed/ Rinsed/ Rinsed/ Irrigated with Irrigated with Irrigated with Saline Saline Saline -Foul Odor after Cleansing No No No -Bioengineered Tissue No No No -Bleeding Controlled with Pressure Pressure Pressure -Treatment Response Procedure Procedure Procedure Tolerated Well Tolerated Well Tolerated Well -Debridement - Subq, 1st 20sq cm Yes Yes Yes #3 LLE Lat Cluster -Time 15:35 08:45 08:37 -Correct Patient Yes Yes Yes -Correct Side, Site, Position Yes Yes Yes -Correct Procedure Yes Yes Yes -Procedure Performed Yes Yes Yes -Type of Procedure Debridement Debridement Debridement -Clinical Debridement Subcutaneous Subcutaneous Subcutaneous -Tissue Removed Subcutaneous Subcutaneous Subcutaneous -Post Debridement (cm) - Length 5 3 3.4 -Post Debridement (cm) - Width 1.4 2.2 2.5 -Post Debridement (cm) - Depth 0.2 0.1 0.1 -Total Square (Post) (cm) 7.0 6.6 8.50 -Area of Debridement (cm) - Length 5 3 3.4 -Area of Debridement (cm) - Width 1.4 2.2 2.5 -Total Square (Area) (cm) 7.0 6.6 8.50 -Tunneling No No No -Undermining/Tunneling No No No -Circular Undermining No No No -Wound/Ulcer Outcome Not Healed Not Healed Not Healed -Ulcer Cleansing Rinsed/ Rinsed/ Rinsed/ Irrigated with Irrigated with Irrigated with Saline Saline Saline -Foul Odor after Cleansing No No No -Bioengineered Tissue No No No -Bleeding Controlled with Pressure Pressure Pressure -Treatment Response Procedure Procedure Procedure Tolerated Well Tolerated Well Tolerated Well -Debridement - Subq, 1st 20sq cm No No No Pain Scale: 0-10 Numeric Is Patient Pain Free? Yes Yes Yes - Nurse 3 - General Ulcer D/C NN Start: 03/27/25 14:52 Freq: Status: Active Protocol: Activity Type Activity Date Activity User E-sign Co-sign Detail Recorded Client Recorded Date Recorded By Document 03/27/25 16:11 RB [id number] 03/27/25 16:12 RB Document 03/31/25 10:50 DL [id number] 03/31/25 11:15 DL Document 04/03/25 09:10 JF [id number] 04/03/25 09:11 JF Document 04/08/25 14:20 KW [id number] 04/08/25 14:45 KW Document 04/10/25 09:02 DL [id number] 04/10/25 09:03 DL 03/27/25 03/31/25 04/03/25 16:11 10:50 09:10 Wound Care Center Nurse 3 #5 LLE med -Ulcer Cleansing Rinsed/ Irrigated with Saline -Foul Odor after Cleansing No -Primary Dressing Applied Promogran Benito Matter -Primary Dressing Covered/Secured with Dry Gauze -Promogran Benito Matter 1 #3 LLE Lat Cluster -Ulcer Cleansing Rinsed/ Irrigated with Saline -Foul Odor after Cleansing No -Primary Dressing Applied Promogran Benito Matter -Other Dressing -Primary Dressing Covered/Secured with Dry Gauze -Promogran Benito Matter 0 -Wound Comment(s) BLE -Multi-Layered Wrap Application Unna Boot - Unna Boot - Unna Boot - Bilateral Bilateral Bilateral -Unna- Bilat (Qty applied) 1 1 1 Treatment Response Procedure Tolerated Well Pain Scale: 0-10 Numeric Is Patient Pain Free? Yes Yes Yes WC - Visit Discharge Discharge Condition Stable Stable Stable Ambulatory Status Ambulatory, Ambulatory Ambulatory, Walker Walker Transportation Private Auto Private Auto Private Auto Accompanied by friend Medication Reconcilliation completed & No Yes provided to patient/care provider Clinical Summary of Care Provided Yes Yes Notes: two boxes unnas used bilat 04/08/25 04/10/25 14:20 09:02 Wound Care Center Nurse 3 #5 LLE med -Ulcer Cleansing Soap and Water Rinsed/ Irrigated with Saline -Foul Odor after Cleansing -Primary Dressing Applied Promogran Promogran Benito Matter Benito Matter -Primary Dressing Covered/Secured with Dry Gauze & Roll Gauze, Secured with Tape -Promogran Benito Matter 1 1 #3 LLE Lat Cluster -Ulcer Cleansing Soap and Water Rinsed/ Irrigated with Saline -Foul Odor after Cleansing No -Primary Dressing Applied -Other Dressing benito Benito -Primary Dressing Covered/Secured with Dry Gauze & Roll Gauze, Secured with Tape -Promogran Benito Matter -Wound Comment(s) large clot noted on inf portion of cluster, larger ulcer BLE -Multi-Layered Wrap Application Unna Boot - Unna Boot - Bilateral Bilateral -Unna- Bilat (Qty applied) 1 1 Treatment Response Procedure Tolerated Well Pain Scale: 0-10 Numeric Is Patient Pain Free? Yes Yes WC - Visit Discharge Discharge Condition Stable Stable Ambulatory Status Ambulatory, Ambulatory, Walker Walker Transportation Private Auto Private Auto Accompanied by Medication Reconcilliation completed & No provided to patient/care provider Clinical Summary of Care Provided Yes Notes: Assessment/Plan Assessment/Plan (1) Non-pressure chronic ulcer of left calf with fat layer exposed: CODE(S): L97.222 - Non-pressure chronic ulcer of left calf with fat layer exposed (2) Venous insufficiency (chronic) (peripheral): CODE(S): I87.2 - Venous insufficiency (chronic) (peripheral) (3) Diabetes mellitus with diabetic polyneuropathy: CODE(S): E11.42 - Type 2 diabetes mellitus with diabetic polyneuropathy QUALIFIERS: Diabetes mellitus type: type 2 (4) Diabetes mellitus with ulcer of calf: CODE(S): E11.622 - Type 2 diabetes mellitus with other skin ulcer; L97.209 - Non-pressure chronic ulcer of unspecified calf with unspecified severity (5) Bilateral lower extremity edema: CODE(S): R60.0 - Localized edema (6) Lipodermatosclerosis of both lower extremities: CODE(S): M79.3 - Panniculitis, unspecified PLAN: Plan Patient seen and evaluated Predebridement ulceration measurement: Right lower extremity healed Left medial lower extremity 1.5 x 0.9 x 0.1 cm Left lateral lower extremity 3.3 cm x 2.4 cm x 0.1 cm Ulceration underwent debridement as noted in the clinical panel above. Postdebridement measurement: Left medial lower extremity 1.6 cm x 1.0 cm x 0.1 cm; left lateral lower extremity 3.4 cm x 2.5 cm x 0.1 cm. Benito applied to ulcerative bases and bilateral Unna boot compression was applied. Will return on 04/14/2025 for Unna boot change with nurse visit. There is reduction in size of the medial ulceration however the lateral aspect slightly increased in size most likely due to tearing of skin versus his previous visit. It has been discussed with the patient that he is to continue to sleep on flat mattress at night with leg elevation as much as possible at night and throughout the day to be heart level or higher. He has been advised against prolonged sitting. 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 He has been advised to not pick at any dry skin or excessively scrub while in the shower to prevent opening of ulcerations as his skin is friable. Skin continues to improve via use of bilateral Unna boot compression. Discussed signs and symptoms of infection. Discussed if he notices increasing redness about his legs moving up the leg, if he notices any purulent drainage from his wound sites, increasing foul odor from the wound sites, or if he experiences fever greater than 101 degree accompanied by nausea, vomiting, chills that these are signs of a progressing infection and he should report to the ED for IV antibiotic and further evaluation. He is understanding of this today. The following work up and care recommendations were made: Dressing: Benito to ulcerative bed. Unna boot compression bilateral lower extremity Wash: Do not get wet. Utilize cast bag when showering to maintain compliance. Tissue growth optimization: Benito Offload: Unna boot compression therapy Vascular: Vascular status not impeding healing, chronic venous stasis and lipodermatosclerosis do complicate healing. Edema: Unna boot compression therapy and elevation of lower extremities at all times of rest. Infection: No signs of infection currently. Will finish oral linezolid and continue with intranasal mupirocin. Pain: May take isoi-ouh-goothnd Tylenol Extra Strength for any discomfort. Currently no pain secondary to diabetic peripheral polyneuropathy Host factors: DM type II with peripheral polyneuropathy, lipodermatosclerosis/chronic venous stasis to complicate healing. He will return 04/14/2025 for change of Unna boot to bilateral lower extremities as nurse visit. I answered all the patient's questions. To return to the wound healing center in 1 week or call sooner if the patient has any questions or concerns.
== END 2025-04-12 23:59 | disposition home or self-care (01) ==
LOC: WC 08:15
PROVIDERS: PCP Family Medicine Geriatric Medicine; Referring Provider Family Medicine Geriatric Medicine; Visit Provider Student in an Organized Health Care Education/Training Program
DX: I83.022 Varicose veins of left lower extremity with ulcer of calf (principal); L97.222 Non-pressure chronic ulcer of left calf with fat layer exposed; E11.42 Type 2 diabetes mellitus with diabetic polyneuropathy; R60.0 Localized edema; I87.2 Venous insufficiency (chronic) (peripheral); Z79.01 Long term (current) use of 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s; Z79.899 Other long term (current) drug therapy; M79.3 Panniculitis, unspecified
CPT/HCPCS: 11042; 29580

== ENCOUNTER 2025-04-12 09:51 | Outpatient (RCR) | payer MEDICARE, SELFPAY ==
[2025-04-12 12:07] LABS: International Normalized Ratio 3.4; Prothrombin Time (Protime)PT. 34.8 SECONDS (11.7-14.9)
== END 2025-04-12 18:00 | disposition home or self-care (01) ==
LOC: LAB 09:51
PROVIDERS: PCP Family Medicine Geriatric Medicine; Referring Provider Internal Medicine Cardiovascular Disease; Visit Provider Internal Medicine Cardiovascular Disease
DX: Z79.01 Long term (current) use of 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s (principal)
CPT/HCPCS: 36415; 85610

== ENCOUNTER 2025-05-08 08:00 | Outpatient (RCR) | payer MEDICARE, SELFPAY ==
[2025-04-13 00:23] VITALS: BP 108/57; PULSE 92; RESP 20; TEMP 37.1; BMI 35.5
[2025-04-14 11:01] VITALS: BP 118/58; PULSE 70; RESP 16; TEMP 36.8; BMI 35.5
[2025-04-17 11:32] VITALS: BP 124/54; PULSE 67; RESP 18; TEMP 36.8; BMI 35.5
--- NOTE | 2025-04-17 12:53 | PN.PCM_ITS ---
History of Present Illness Date of Service: 04/17/25 Chief Complaint: Venous stasis ulceration left lower extremity History of Wound: This is a 74-year-old male who presents to the wound care center for continued aid in healing of a venous stasis ulceration to the lateral aspect of the left lower extremity. Ulceration is secondary to chronic venous insufficiency and lower extremity edema. He had been unable to wear his compression stockings due to significant edema and previous heart failure. 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 This did lead to improvement in lower extremity edema however still does get swelling secondary to his chronic venous insufficiency which did lead to ulceration to the lateral aspect of the left leg. He had been undergoing local wound care in office over the course of 6 weeks with applications of Benito however ulceration has failed to improve with this and compression stocking. He continues to change dressing daily with Benito and does have visiting nursing to assist in dressing changes. States that he continues to wear his compression stocking and tries to elevate when possible. He does assist in care for his so elevation at all times of rest poses difficulty. Denies trauma to the leg. Denies N/V/F/chills/SOB. Denies further complaints. Subjective Subjective 74-year-old male presents to the wound care center for continued care of bilateral lower extremity venous stasis ulcerations. He continues Unna boot compression and is tolerating this well. He is attempting to continue to elevate legs is much as possible. Reports has been released from hospital and transfered to extended care where she still continues to fight. Accompanied by daughter in law who notes wounds are improving. He denies constitutional symptoms. Denies further complaints today. Objective Data Objective Data Vital Signs: Vital Signs Temp Pulse Resp BP O2 Del Method 98.2 F 67 18 124/54 H Room Air 04/17/25 11:32 04/17/25 11:32 04/17/25 11:32 04/17/25 11:32 04/17/25 11:32 Oxygen Delivery Method Room Air Weight: 105.994 kg Body Mass Index (BMI) 35.5 Physical Exam Const alert, oriented x3 and no apparent distress General Appearance: cooperative HEENT normocephalic Eyes General Eye: normal appearance of both eyes Neck General: normal visual inspection Lymph Lymphatic: no lymphadenopathy noted and no lymphedema noted Resp normal respiratory effort Cardio regular rate and regular rhythm Extremity no calf tenderness Extremity Narrative: Bilateral lower extremity: Vascular: DP and PT pulses weakly palpable. CFT is less than 5 seconds to digits. Normal temperature gradient. Hair growth is absent to digits. Neurologic: Gross sensation intact. There is decreased protective sensation consistent with diabetic peripheral polyneuropathy. Musculoskeletal: Muscle strength 5 of 5 age-appropriate. There is decreased ran ge of motion of the ankle joint dorsiflexion with the knee extended without pain or crepitus bilateral. There is decreased range of motion of the first metatarsophalangeal joint without pain or crepitus bilateral. No pain to palpation of calf bilateral. Dermatologic: Bilateral lower extremities demonstrate lipodermatosclerosis with hyperpigmentation to the pretibial region. Previous scaling/eczematous skin improved following compression of Unna boot therapy. Full-thickness ulceration to the right lower extremity remains healed. There are 2 full-thickness ulcerations to the left lower extremity 1 medial and 1 lateral. Both ulcerations demonstrate mixed fibrogranular layer, but are improving. No signs of infection. Skin no rashes or lesions noted General Skin Exam: venous stasis and dermatitis Neuro moves all extremities Debridement Note Debridement Note Wound debrided: Left lower extremity x 2 Laterality: Left Wound Grade/Stage: Swain stage I Type of Debridement: Excisional debridement Anesthesia Used: 5% Lidocaine Gel Depth: Down to and including healthy tissue and in the subcutaneous layer Percentage of wound debrided: 100 Instrument Used: 5mm curette Tissue Removed: Fibrous, devitalized subcutaneous, biofilm, slough Severity: Fat Layer Exposed Amount of bleeding with debridement: Mild Bleeding Controlled with: Compression and gauze Patient tolerated procedure: Patient tolerated procedure well Post-Debridement Measurements and Additional Note: Post-Debridement Measurements/Treatment - Nurse 1 - General Ulcer Assessment Start: 04/14/25 11:01 Freq: Status: Active Protocol: LIZZY Activity Type Activity Date Activity User E-sign Co-sign Detail Recorded Client Recorded Date Recorded By Document 04/14/25 11:01 CHING [id number] 04/14/25 11:02 JF Document 04/17/25 11:32 KW [id number] 04/17/25 11:45 KW 04/14/25 04/17/25 11:01 11:32 - Today's Visit Information Type of service Nurse-only Follow-up Visit Visit (Physician/[employer] ) Arrival Mode Ambulatory, Ambulatory, Walker Walker Accompanied by DIL Patient Identification Verified (Name & Yes Yes ) Patient Requires Transmission-Based No Precautions Height and Weight Body Mass Index (BMI) 35.5 35.5 BMI Classification Obese Obese Vital Signs Temperature (97.8 F-99.1 F) 98.3 F 98.2 F Temperature Source Temporal Temporal Pulse Rate (60-100) 70 67 Pulse Location Monitor Monitor Respiratory Rate (12-18) 16 18 Respiratory rate source Observation Observation Oxygen Delivery Method Room Air Blood Pressure (90/60-120/80) 118/58 L 124/54 H Blood Pressure Mean (mm Hg) 78 77 Source Monitor Monitor Position Semi-Fowlers Semi-Fowlers Blood Pressure Location Left Arm Left Arm History Since Last Visit- (Skip if this is Patient's initial visit) Have you changed medications since your No last visit? Any new allergies or adverse reactions No Had a fall/change in ADL's that may No increase risk of falls Signs or symptoms of abuse and/or No neglect since last visit Have you been in the hospital since your No last visit? Has dressing in place as prescribed Yes Has compression in place as prescribed Yes Has offloadiing in place as prescribed Yes Experienced any changes in pain level or No management Left Footwear Regular Shoe Regular Shoe Right Footwear Regular Shoe Regular Shoe Pain Scale: 0-10 Numeric Is Patient Pain Free? Yes Yes - Nurse 1 - General Ulcer Measurement Start: 04/14/25 11:01 Freq: Status: Active Protocol: Activity Type Activity Date Activity User E-sign Co-sign Detail Recorded Client Recorded Date Recorded By Document 04/14/25 11:01 CHING [id number] 04/14/25 11:02 Document 04/17/25 11:32 [id number] 04/17/25 11:45 KW 04/14/25 04/17/25 11:01 11:32 Wound Center Nurse 1 #5 LLE med -Current Size (cm) - Length 0.1 -Current Size (cm) - Width 0.1 -Current Size (cm) - Depth 0.1 -Total Square Cm 0.01 -Date of Last Picture (Recall this 04/17/25 field) -Exudate Amt Small -Exudate Type Serosanguineous -Wound Margin Distinct, Outline Attached -Granulation Amt Large (67-100%) -Granulation Quality Red -Texture (Lyndsey-wound Skin Appearance) Assessed -Moisture (Lyndsey-wound Skin Appearance) Assessed -Color (Lyndsey-wound Skin Appearance) Assessed, Hemosiderin Staining -Temperature (Lyndsey-wound Skin No Abnormality Appearance) (Pt Warm) -Ulcer Cleansing Soap and Water -Foul Odor after Cleansing No -Anesthetic Used 5% Lidocaine Gel -Wound Comment(s) not measured during nurse 1 #3 LLE Lat Cluster -Current Size (cm) - Length 0.1 -Current Size (cm) - Width 0.1 -Current Size (cm) - Depth 0.1 -Total Square Cm 0.01 -Date of Last Picture (Recall this 04/17/25 field) -Exudate Amt Small -Exudate Type Serosanguineous -Wound Margin Distinct, Outline Attached -Granulation Amt Large (67-100%) -Granulation Quality Red -Texture (Lyndsey-wound Skin Appearance) Assessed -Moisture (Lyndsey-wound Skin Appearance) Assessed -Color (Lyndsey-wound Skin Appearance) Assessed, Hemosiderin Staining -Temperature (Lyndsey-wound Skin No Abnormality Appearance) (Pt Warm) -Tenderness on Palpation (Lyndsey-wound No Skin Appearance) -Ulcer Cleansing Soap and Water -Foul Odor after Cleansing No -Anesthetic Used 5% Lidocaine Gel -Wound Comment(s) not measured during nurse 1 Lower Limb Edema Present NA Right Calf (cm) 34.5 Right Ankle (cm) 26.5 Left Calf (cm) 35.5 Left Ankle (cm) 27 WC - Nurse 2 - General Ulcer CM Notes Start: 04/14/25 11:01 Freq: Status: Active Protocol: Activity Type Activity Date Activity User E-sign Co-sign Detail Recorded Client Recorded Date Recorded By Document 04/17/25 12:04 [facility] [id number] 04/17/25 12:08 [facility] 04/17/25 12:04 Wound Center Nurse 2 #5 LLE med -Time 12:04 -Correct Patient Yes -Correct Side, Site, Position Yes -Correct Procedure Yes -Procedure Performed Yes -Type of Procedure Debridement -Clinical Debridement Subcutaneous -Tissue Removed Subcutaneous -Post Debridement (cm) - Length 1 -Post Debridement (cm) - Width 0.5 -Post Debridement (cm) - Depth 0.1 -Total Square (Post) (cm) 0.5 -Area of Debridement (cm) - Length 1 -Area of Debridement (cm) - Width 0.5 -Total Square (Area) (cm) 0.5 -Tunneling No -Undermining/Tunneling No -Circular Undermining No -Wound/Ulcer Outcome Not Healed -Ulcer Cleansing Rinsed/ Irrigated with Saline -Foul Odor after Cleansing No -Bioengineered Tissue No -Bleeding Controlled with Pressure -Treatment Response Procedure Tolerated Well -Debridement - Subq, 1st 20sq cm Yes #3 LLE Lat Cluster -Time 12:05 -Correct Patient Yes -Correct Side, Site, Position Yes -Correct Procedure Yes -Procedure Performed Yes -Type of Procedure Debridement -Clinical Debridement Subcutaneous -Tissue Removed Subcutaneous -Post Debridement (cm) - Length 2.5 -Post Debridement (cm) - Width 1.6 -Post Debridement (cm) - Depth 0.1 -Total Square (Post) (cm) 4.00 -Area of Debridement (cm) - Length 2.5 -Area of Debridement (cm) - Width 1.6 -Total Square (Area) (cm) 4.00 -Tunneling No -Undermining/Tunneling No -Circular Undermining No -Wound/Ulcer Outcome Not Healed -Ulcer Cleansing Rinsed/ Irrigated with Saline -Foul Odor after Cleansing No -Bioengineered Tissue No -Bleeding Controlled with Pressure -Treatment Response Procedure Tolerated Well -Debridement - Subq, 1st 20sq cm No Pain Scale: 0-10 Numeric Is Patient Pain Free? Yes - Nurse 3 - General Ulcer D/C NN Start: 04/14/25 11:01 Freq: Status: Active Protocol: Activity Type Activity Date Activity User E-sign Co-sign Detail Recorded Client Recorded Date Recorded By Document 04/14/25 11:01 CHING [id number] 04/14/25 11:02 Document 04/17/25 12:25 KRANTHI [id number] 04/17/25 12:26 DL 04/14/25 04/17/25 11:01 12:25 Pain Scale: 0-10 Numeric Is Patient Pain Free? Yes Yes Wound Care Center Nurse 3 #5 LLE med -Ulcer Cleansing Soap and Water Soap and Water -Primary Dressing Applied Promogran Promogran Benito Matter Benito Matter -Primary Dressing Covered/Secured with Dry Gauze -Other Covering unna -Promogran Benito Matter 1 1 #3 LLE Lat Cluster -Ulcer Cleansing Soap and Water -Foul Odor after Cleansing No -Other Dressing benito -Other Covering unna BLE -Multi-Layered Wrap Application Unna Boot - Unna Boot - Bilateral Bilateral -Unna- Bilat (Qty applied) 1 1 Treatment Response Procedure Tolerated Well WC - Visit Discharge Discharge Condition Stable Stable Ambulatory Status Ambulatory, Ambulatory Walker Transportation Private Auto Private Auto Facility Type Home Health Orders Sent Yes Assessment/Plan Assessment/Plan (1) Non-pressure chronic ulcer of left calf with fat layer exposed: CODE(S): L97.222 - Non-pressure chronic ulcer of left calf with fat layer exposed (2) Venous insufficiency (chronic) (peripheral): CODE(S): I87.2 - Venous insufficiency (chronic) (peripheral) (3) Lipodermatosclerosis of both lower extremities: CODE(S): M79.3 - Panniculitis, unspecified (4) Diabetes mellitus with diabetic polyneuropathy: CODE(S): E11.42 - Type 2 diabetes mellitus with diabetic polyneuropathy QUALIFIERS: Diabetes mellitus type: type 2 (5) Diabetes mellitus with ulcer of calf: CODE(S): E11.622 - Type 2 diabetes mellitus with other skin ulcer; L97.209 - Non-pressure chronic ulcer of unspecified calf with unspecified severity (6) Bilateral lower extremity edema: CODE(S): R60.0 - Localized edema PLAN: Plan Patient seen and evaluated Predebridement ulceration measurement: Right lower extremity healed Left medial lower extremity 0.9 x 0.4 x 0.1 cm Left lateral lower extremity 2.4 cm x 1.5 cm x 0.1 cm Ulceration underwent debridement as noted in the clinical panel above. Postdebridement measurement: Left medial lower extremity 1.0 cm x 0.5 cm x 0.1 cm; left lateral lower extremity 2.5 cm x 1.6 cm x 0.1 cm. Benito applied to ulcerative bases and bilateral Unna boot compression was applied. Will return on 04/21/2025 for Unna boot change with nurse visit. There is reduction in size of both ulcerative sites versus his previous visit. It has been discussed with the patient that he is to continue to sleep on flat mattress at night with leg elevation as much as possible at night and throughout the day to be heart level or higher. He has been advised against prolonged sitting. 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 He has been advised to not pick at any dry skin or excessively scrub while in the shower to prevent opening of ulcerations as his skin is friable. Skin continues to improve via use of bilateral Unna boot compression. Discussed signs and symptoms of infection. Discussed if he notices increasing redness about his legs moving up the leg, if he notices any purulent drainage from his wound sites, increasing foul odor from the wound sites, or if he experiences fever greater than 101 degree accompanied by nausea, vomiting, chills that these are signs of a progressing infection and he should report to the ED for IV antibiotic and further evaluation. He is understanding of this today. The following work up and care recommendations were made: Dressing: Benito to ulcerative bed. Unna boot compression bilateral lower extremity Wash: Do not get wet. Utilize cast bag when showering to maintain compliance. Tissue growth optimization: Benito Offload: Unna boot compression therapy Vascular: Vascular status not impeding healing, chronic venous stasis and lipodermatosclerosis do complicate healing. Edema: Unna boot compression therapy and elevation of lower extremities at all times of rest. Infection: No signs of infection currently. Will finish oral linezolid and continue with intranasal mupirocin. Pain: May take [id number] Tylenol Extra Strength for any discomfort. Currently no pain secondary to diabetic peripheral polyneuropathy Host factors: DM type II with peripheral polyneuropathy, lipo dermatosclerosis/chronic venous stasis to complicate healing. He will return 04/21/2025 for change of Unna boot to bilateral lower extremities as nurse visit. I answered all the patient's questions. To return to the wound healing center in 1 week or call sooner if the patient has any questions or concerns.
--- NOTE | 2025-04-18 08:41 | WC ---
PHOTO 04/17/25 [facility]
--- NOTE | 2025-04-18 08:42 | WC ---
PHOTO 04/17/25 [facility]
[2025-04-21 08:12] VITALS: BP 131/47; PULSE 66; RESP 18; TEMP 36.6; BMI 35.5
[2025-04-24 09:29] VITALS: BP 116/64; PULSE 67; RESP 18; TEMP 36.4; BMI 35.5
--- NOTE | 2025-04-24 10:38 | PN.PCM_ITS ---
History of Present Illness Date of Service: 04/24/25 Chief Complaint: Venous stasis ulceration left lower extremity History of Wound: This is a 74-year-old male who presents to the wound care center for continued aid in healing of a venous stasis ulceration to the lateral aspect of the left lower extremity. Ulceration is secondary to chronic venous insufficiency and lower extremity edema. He had been unable to wear his compression stockings due to significant edema and previous heart failure. 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 This did lead to improvement in lower extremity edema however still does get swelling secondary to his chronic venous insufficiency which did lead to ulceration to the lateral aspect of the left leg. He had been undergoing local wound care in office over the course of 6 weeks with applications of Benito however ulceration has failed to improve with this and compression stocking. He continues to change dressing daily with Benito and does have visiting nursing to assist in dressing changes. States that he continues to wear his compression stocking and tries to elevate when possible. He does assist in care for his so elevation at all times of rest poses difficulty. Denies trauma to the leg. Denies N/V/F/chills/SOB. Denies further complaints. Subjective Subjective This is a 74-year-old male who presents to the wound care center for continued care of bilateral lower extremity venous stasis ulcerations. He continues Unna boot compression and is tolerating this well. States he has resumed 80 mg furosemide daily and notices that this is significantly improving his edema body wide. He is attempting to continue to elevate legs is much as possible. Reports has been transfered to extended care at [facility] where she still continues to fight. He visits her daily. Accompanied by daughter in law who notes wounds continue improving. He denies constitutional symptoms. Denies further complaints today. Objective Data Objective Data Vital Signs: Vital Signs Temp Pulse Resp BP O2 Del Method 97.6 F L 67 18 116/64 Room Air 04/24/25 09:29 04/24/25 09:29 04/24/25 09:29 04/24/25 09:29 04/21/25 08:12 Oxygen Delivery Method Room Air Weight: 105.994 kg Body Mass Index (BMI) 35.5 Physical Exam Const alert, oriented x3 and no apparent distress General Appearance: cooperative HEENT normocephalic Eyes General Eye: normal appearance of both eyes Neck General: normal visual inspection Lymph Lymphatic: no lymphadenopathy noted and no lymphedema noted Resp normal respiratory effort Cardio regular rate and regular rhythm Extremity no calf tenderness Extremity Narrative: Bilateral lower extremity: Vascular: DP and PT pulses weakly palpable. CFT is less than 5 seconds to digits. Normal temperature gradient. Hair growth is absent to digits. Neurologic: Gross sensation intact. There is decreased protective sensation consistent with diabetic peripheral polyneuropathy. Musculoskeletal: Muscle strength 5 of 5 age-appropriate. There is decreased range of motion of the ankle joint dorsiflexion with the knee extended without pain or crepitus bilateral. There is decreased range of motion of the first metatarsophalangeal joint without pain or crepitus bilateral. No pain to palpation of calf bilateral. Dermatologic: Bilateral lower extremities demonstrate lipodermatosclerosis with hyperpigmentation to the pretibial region. Previous scaling/eczematous skin improved following compression of Unna boot therapy. Full-thickness ulceration to the right lower extremity remains healed. There are 2 full-thickness ulcerations to the left lower extremity 1 medial and 1 lateral. Both ulcerations demonstrate mixed fibrogranular layer, but are improving. No signs of infection. Skin no rashes or lesions noted General Skin Exam: venous stasis and dermatitis Neuro moves all extremities Debridement Note Debridement Note Wound debrided: Left lower extremity x 2 Laterality: Left Wound Grade/Stage: Swain stage I Type of Debridement: Excisional debridement Anesthesia Used: 5% Lidocaine Gel Depth: Down to and including healthy tissue and in the subcutaneous layer Percentage of wound debrided: 100 Instrument Used: 5mm curette Tissue Removed: Fibrous, devitalized subcutaneous, biofilm, slough Severity: Fat Layer Exposed Amount of bleeding with debridement: Mild Bleeding Controlled with: Compression and gauze Patient tolerated procedure: Patient tolerated procedure well Post-Debridement Measurements and Additional Note: Post-Debridement Measurements/Treatment CLAUDETTE - Nurse 1 - General Ulcer Assessment Start: 04/14/25 11:01 Freq: Status: Active Protocol: LIZZY Activity Type Activity Date Activity User E-sign Co-sign Detail Recorded Client Recorded Date Recorded By Document 04/14/25 11:01 JF [id number] 04/14/25 11:02 JF Document 04/17/25 11:32 KW [id number] 04/17/25 11:45 KW Document 04/21/25 08:12 KW [id number] 04/21/25 08:14 KW Document 04/24/25 09:29 DL [id number] 04/24/25 09:45 DL 04/14/25 04/17/25 04/21/25 11:01 11:32 08:12 - Today's Visit Information Type of service Nurse-only Follow-up Visit Nurse-only Visit (Physician/MEDICAL RECORD TECHNICIAN Visit ) Arrival Mode Ambulatory, Ambulatory, Ambulatory, Walker Walker Walker Transfer Assistance Accompanied by DIL daughter in law Patient Identification Verified (Name & Yes Yes Yes ) Patient Requires Transmission-Based No Precautions Height and Weight Body Mass Index (BMI) 35.5 35.5 35.5 BMI Classification Obese Obese Obese Vital Signs Temperature (97.8 F-99.1 F) 98.3 F 98.2 F 97.8 F Temperature Source Temporal Temporal Temporal Pulse Rate (60-100) 70 67 66 Pulse Location Monitor Monitor Monitor Respiratory Rate (12-18) 16 18 18 Respiratory rate source Observation Observation Observation Oxygen Delivery Method Room Air Room Air Blood Pressure (90/60-120/80) 118/58 L 124/54 H 131/47 H Blood Pressure Mean (mm Hg) 78 77 75 Source Monitor Monitor Monitor Position Semi-Fowlers Semi-Fowlers Semi-Fowlers Blood Pressure Location Left Arm Left Arm Right Forearm History Since Last Visit- (Skip if this is Patient's initial visit) Have you changed medications since your No No last visit? Any new allergies or adverse reactions No No Had a fall/change in ADL's that may No No increase risk of falls Signs or symptoms of abuse and/or No No neglect since last visit Have you been in the hospital since your No No last visit? Has dressing in place as prescribed Yes Yes Has compression in place as prescribed Yes Yes Has offloadiing in place as prescribed Yes N/A Experienced any changes in pain level or No No management Left Footwear Regular Shoe Regular Shoe Regular Shoe Right Footwear Regular Shoe Regular Shoe Regular Shoe Pain Scale: 0-10 Numeric Is Patient Pain Free? Yes Yes Yes 04/24/25 09:29 - Today's Visit Information Type of service Follow-up Visit (Physician/MEDICAL RECORD TECHNICIAN ) Arrival Mode Ambulatory, Walker Transfer Assistance None Accompanied by Patient Identification Verified (Name & Yes ) Patient Requires Transmission-Based No Precautions Height and Weight Body Mass Index (BMI) 35.5 BMI Classification Obese Vital Signs Temperature (97.8 F-99.1 F) 97.6 F L Temperature Source Temporal Pulse Rate (60-100) 67 Pulse Location Monitor Respiratory Rate (12-18) 18 Respiratory rate source Observation Oxygen Delivery Method Blood Pressure (90/60-120/80) 116/64 Blood Pressure Mean (mm Hg) 81 Source Monitor Position Blood Pressure Location History Since Last Visit- (Skip if this is Patient's initial visit) Have you changed medications since your No last visit? Any new allergies or adverse reactions No Had a fall/change in ADL's that may No increase risk of falls Signs or symptoms of abuse and/or No neglect since last visit Have you been in the hospital since your No last visit? Has dressing in place as prescribed Yes Has compression in place as prescribed Yes Has offloadiing in place as prescribed Yes Experienced any changes in pain level or No management Left Footwear Right Footwear Pain Scale: 0-10 Numeric Is Patient Pain Free? Yes WC - Nurse 1 - General Ulcer Measurement Start: 04/14/25 11:01 Freq: Status: Active Protocol: Activity Type Activity Date Activity User E-sign Co-sign Detail Recorded Client Recorded Date Recorded By Document 04/14/25 11:01 JF [id number] 04/14/25 11:02 JF Document 04/17/25 11:32 KW [id number] 04/17/25 11:45 KW Document 04/21/25 08:14 KW [id number] 04/21/25 08:14 KW Document 04/24/25 09:29 DL [id number] 04/24/25 09:45 DL 04/14/25 04/17/25 04/21/25 11:01 11:32 08:14 Wound Center Nurse 1 #5 LLE med -Current Size (cm) - Length 0.1 -Current Size (cm) - Width 0.1 -Current Size (cm) - Depth 0.1 -Total Square Cm 0.01 -Date of Last Picture (Recall this 04/17/25 field) -Exudate Amt Small -Exudate Type Serosanguineous -Wound Margin Distinct, Outline Attached -Granulation Amt Large (67-100%) -Granulation Quality Red -Necrosis Amt -Necrotic Tissue Type -Structure Exposed -Texture (Lyndsey-wound Skin Appearance) Assessed -Moisture (Lyndsey-wound Skin Appearance) Assessed -Color (Lyndsey-wound Skin Appearance) Assessed, Hemosiderin Staining -Temperature (Lyndsey-wound Skin No Abnormality Appearance) (Pt Warm) -Ulcer Cleansing Soap and Water -Foul Odor after Cleansing No -Anesthetic Used 5% Lidocaine Gel -Wound Comment(s) not measured during nurse 1 #3 LLE Lat Cluster -Current Size (cm) - Length 0.1 -Current Size (cm) - Width 0.1 -Current Size (cm) - Depth 0.1 -Total Square Cm 0.01 -Date of Last Picture (Recall this 04/17/25 field) -Exudate Amt Small -Exudate Type Serosanguineous -Wound Margin Distinct, Outline Attached -Granulation Amt Large (67-100%) -Granulation Quality Red -Necrosis Amt -Structure Exposed -Texture (Lyndsey-wound Skin Appearance) Assessed -Moisture (Lyndsey-wound Skin Appearance) Assessed -Color (Lyndsey-wound Skin Appearance) Assessed, Hemosiderin Staining -Temperature (Lyndsey-wound Skin No Abnormality Appearance) (Pt Warm) -Tenderness on Palpation (Lyndsey-wound No Skin Appearance) -Ulcer Cleansing Soap and Water -Foul Odor after Cleansing No -Anesthetic Used 5% Lidocaine Gel -Wound Comment(s) not measured during nurse 1 Lower Limb Edema Present NA Right Calf (cm) 34.5 35.2 Right Ankle (cm) 26.5 25.3 Left Calf (cm) 35.5 35.2 Left Ankle (cm) 27 25.8 04/24/25 09:29 Wound Center Nurse 1 #5 LLE med -Current Size (cm) - Length 0.6 -Current Size (cm) - Width 0.4 -Current Size (cm) - Depth 0.2 -Total Square Cm 0.24 -Date of Last Picture (Recall this field) -Exudate Amt Small -Exudate Type Serosanguineous -Wound Margin Distinct, Outline Attached -Granulation Amt Small (1-33%) -Granulation Quality Red -Necrosis Amt Small (1-33%) -Necrotic Tissue Type Adherent Slough -Structure Exposed N/A -Texture (Lyndsey-wound Skin Appearance) Scarring -Moisture (Lyndsey-wound Skin Appearance) No Abnormality -Color (Lyndsey-wound Skin Appearance) Hemosiderin Staining -Temperature (Lyndsey-wound Skin No Abnormality Appearance) (Pt Warm) -Ulcer Cleansing Not Cleansed -Foul Odor after Cleansing No -Anesthetic Used 5% Lidocaine Gel -Wound Comment(s) #3 LLE Lat Cluster -Current Size (cm) - Length 1.6 -Current Size (cm) - Width 1 -Current Size (cm) - Depth 0.2 -Total Square Cm 1.6 -Date of Last Picture (Recall this field) -Exudate Amt Medium -Exudate Type Serosanguineous -Wound Margin Distinct, Outline Attached -Granulation Amt Large (67-100%) -Granulation Quality Red -Necrosis Amt None Present (0 %) -Structure Exposed N/A -Texture (Lyndsey-wound Skin Appearance) Scarring -Moisture (Lyndsey-wound Skin Appearance) No Abnormality -Color (Lyndsey-wound Skin Appearance) Hemosiderin Staining -Temperature (Lyndsey-wound Skin No Abnormality Appearance) (Pt Warm) -Tenderness on Palpation (Lyndsey-wound Skin Appearance) -Ulcer Cleansing Soap and Water -Foul Odor after Cleansing No -Anesthetic Used 5% Lidocaine Gel -Wound Comment(s) Lower Limb Edema Present Right Calf (cm) 34 Right Ankle (cm) 24.5 Left Calf (cm) 34 Left Ankle (cm) 25.2 WC - Nurse 2 - General Ulcer CM Notes Start: 04/14/25 11:01 Freq: Status: Active Protocol: Activity Type Activity Date Activity User E-sign Co-sign Detail Recorded Client Recorded Date Recorded By Document 04/17/25 12:04 [facility] [id number] 04/17/25 12:08 BM Document 04/24/25 10:03 [facility] [id number] 04/24/25 10:08 [facility] 04/17/25 04/24/25 12:04 10:03 Wound Center Nurse 2 #5 LLE med -Time 12:04 10:04 -Correct Patient Yes Yes -Correct Side, Site, Position Yes Yes -Correct Procedure Yes Yes -Procedure Performed Yes Yes -Type of Procedure Debridement Debridement -Clinical Debridement Subcutaneous Subcutaneous -Tissue Removed Subcutaneous Subcutaneous -Post Debridement (cm) - Length 1 0.7 -Post Debridement (cm) - Width 0.5 0.5 -Post Debridement (cm) - Depth 0.1 0.1 -Total Square (Post) (cm) 0.5 0.35 -Area of Debridement (cm) - Length 1 0.7 -Area of Debridement (cm) - Width 0.5 0.5 -Total Square (Area) (cm) 0.5 0.35 -Tunneling No No -Undermining/Tunneling No No -Circular Undermining No No -Wound/Ulcer Outcome Not Healed Not Healed -Ulcer Cleansing Rinsed/ Rinsed/ Irrigated with Irrigated with Saline Saline -Foul Odor after Cleansing No No -Bioengineered Tissue No No -Bleeding Controlled with Pressure Pressure -Treatment Response Procedure Procedure Tolerated Well Tolerated Well -Debridement - Subq, 1st 20sq cm Yes Yes #3 LLE Lat Cluster -Time 12:05 10:04 -Correct Patient Yes Yes -Correct Side, Site, Position Yes Yes -Correct Procedure Yes Yes -Procedure Performed Yes Yes -Type of Procedure Debridement Debridement -Clinical Debridement Subcutaneous Subcutaneous -Tissue Removed Subcutaneous Subcutaneous -Post Debridement (cm) - Length 2.5 1.8 -Post Debridement (cm) - Width 1.6 1 -Post Debridement (cm) - Depth 0.1 0.1 -Total Square (Post) (cm) 4.00 1.8 -Area of Debridement (cm) - Length 2.5 1.8 -Area of Debridement (cm) - Width 1.6 1 -Total Square (Area) (cm) 4.00 1.8 -Tunneling No No -Undermining/Tunneling No No -Circular Undermining No -Wound/Ulcer Outcome Not Healed Not Healed -Ulcer Cleansing Rinsed/ Rinsed/ Irrigated with Irrigated with Saline Saline -Foul Odor after Cleansing No No -Bioengineered Tissue No -Bleeding Controlled with Pressure Pressure -Treatment Response Procedure Procedure Tolerated Well Tolerated Well -Debridement - Subq, 1st 20sq cm No No Pain Scale: 0-10 Numeric Is Patient Pain Free? Yes Yes - Nurse 3 - General Ulcer D/C NN Start: 04/14/25 11:01 Freq: Status: Active Protocol: Activity Type Activity Date Activity User E-sign Co-sign Detail Recorded Client Recorded Date Recorded By Document 04/14/25 11:01 JF [id number] 04/14/25 11:02 JF Document 04/17/25 12:25 DL [id number] 04/17/25 12:26 DL Document 04/21/25 08:12 KW [id number] 04/21/25 08:14 KW Document 04/24/25 10:36 DL [id number] 04/24/25 10:37 DL 04/14/25 04/17/25 04/21/25 11:01 12:25 08:12 Pain Scale: 0-10 Numeric Is Patient Pain Free? Yes Yes Yes Wound Care Center Nurse 3 #5 LLE med -Ulcer Cleansing Soap and Water Soap and Water Soap and Water -Foul Odor after Cleansing -Primary Dressing Applied Promogran Promogran Benito Matter Benito Matter -Other Dressing pt own benito -Primary Dressing Covered/Secured with Dry Gauze Dry Gauze -Other Covering unna -Promogran Benito Matter 1 1 #3 LLE Lat Cluster -Ulcer Cleansing Soap and Water Soap and Water -Foul Odor after Cleansing No -Other Dressing [place] benito -Primary Dressing Covered/Secured with Dry Gauze -Other Covering unna BLE -Multi-Layered Wrap Application Unna Boot - Unna Boot - Unna Boot - Bilateral Bilateral Bilateral -Unna- Bilat (Qty applied) 1 1 1 Treatment Response Procedure Tolerated Well WC - Visit Discharge Discharge Condition Stable Stable Stable Ambulatory Status Ambulatory, Ambulatory Ambulatory, Walker Walker Transportation Private Auto Private Auto Private Auto Accompanied by Medication Reconcilliation completed & No provided to patient/care provider Clinical Summary of Care Provided Yes Facility Type Home Health Orders Sent Yes 04/24/25 10:36 Pain Scale: 0-10 Numeric Is Patient Pain Free? Yes Wound Care Center Nurse 3 #5 LLE med -Ulcer Cleansing Rinsed/ Irrigated with Saline -Foul Odor after Cleansing No -Primary Dressing Applied -Other Dressing Benito -Primary Dressing Covered/Secured with -Other Covering -Promogran Benito Matter #3 LLE Lat Cluster -Ulcer Cleansing Rinsed/ Irrigated with Saline -Foul Odor after Cleansing No -Other Dressing Benito -Primary Dressing Covered/Secured with -Other Covering BLE -Multi-Layered Wrap Application Unna Boot - Bilateral -Unna- Bilat (Qty applied) 1 Treatment Response Procedure Tolerated Well WC - Visit Discharge Discharge Condition Stable Ambulatory Status Ambulatory, Walker Transportation Private Auto Accompanied by family Medication Reconcilliation completed & provided to patient/care provider Clinical Summary of Care Provided Facility Type Orders Sent Assessment/Plan Assessment/Plan (1) Non-pressure chronic ulcer of left calf with fat layer exposed: CODE(S): L97.222 - Non-pressure chronic ulcer of left calf with fat layer exposed (2) Venous insufficiency (chronic) (peripheral): CODE(S): I87.2 - Venous insufficiency (chronic) (peripheral) (3) Lipodermatosclerosis of both lower extremities: CODE(S): M79.3 - Panniculitis, unspecified (4) Diabetes mellitus with diabetic polyneuropathy: CODE(S): E11.42 - Type 2 diabetes mellitus with diabetic polyneuropathy QUALIFIERS: Diabetes mellitus type: type 2 (5) Diabetes mellitus with ulcer of calf: CODE(S): E11.622 - Type 2 diabetes mellitus with other skin ulcer; L97.209 - Non-pressure chronic ulcer of unspecified calf with unspecified severity (6) Bilateral lower extremity edema: CODE(S): R60.0 - Localized edema PLAN: Plan Patient seen and evaluated Predebridement ulceration measurement: Right lower extremity healed Left medial lower extremity 0.6 x 0.4 x 0.1 cm Left lateral lower extremity 1.7 cm x 0.9 cm x 0.1 cm Ulceration underwent debridement as noted in the clinical panel above. Postdebridement measurement: Left medial lower extremity 0.7 cm x 0.5 cm x 0.1 cm; left lateral lower extremity 1.8 cm x 1.0 cm x 0.1 cm. Benito applied to ulcerative bases and bilateral Unna boot compression was applied. Will return on 04/28/2025 for Unna boot change with nurse visit. There is continued reduction in size of both ulcerative sites versus his previous visit. It has been discussed with the patient that he is to continue to sleep on flat mattress at night with leg elevation as much as possible at night and throughout the day to be heart level or higher. He has been advised against prolonged sitting. 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 He has been advised to not pick at any dry skin or excessively scrub while in the shower to prevent opening of ulcerations as his skin is friable. Skin continues to improve via use of bilateral Unna boot compression. Discussed signs and symptoms of infection. Discussed if he notices increasing redness about his legs moving up the leg, if he notices any purulent drainage from his wound sites, increasing foul odor from the wound sites, or if he experiences fever greater than 101 degree accompanied by nausea, vomiting, chills that these are signs of a progressing infection and he should report to the ED for IV antibiotic and further evaluation. He is understanding of this today. The following work up and care recommendations were made: Dressing: Benito to ulcerative bed. Unna boot compression bilateral lower extremity Wash: Do not get wet. Utilize cast bag when showering to maintain compliance. Tissue growth optimization: Benito Offload: Unna boot compression therapy Vascular: Vascular status not impeding healing, chronic venous stasis and lipodermatosclerosis do complicate healing. Edema: Unna boot compression therapy and elevation of lower extremities at all times of rest. Infection: No signs of infection currently. Will finish oral linezolid and continue with intranasal mupirocin. Pain: May take ceuo-lhp-givfara Tylenol Extra Strength for any discomfort. Currently no pain secondary to diabetic peripheral polyneuropathy Host factors: DM type II with peripheral polyneuropathy, lipodermatosclerosis/chronic venous stasis to complicate healing. He will return 04/28/2025 for change of Unna boot to bilateral lower extremities as nurse visit. I answered all the patient's questions. To return to the wound healing center in 1 week or call sooner if the patient has any questions or concerns.
[2025-04-28 11:21] VITALS: BP 114/48; PULSE 64; RESP 16; TEMP 35.9; BMI 35.5
[2025-05-01 11:27] VITALS: BP 130/87; PULSE 70; RESP 18; TEMP 36.6; BMI 35.5
--- NOTE | 2025-05-01 12:03 | PCM.WC.PN ---
History of Present Illness Date of Service: 05/01/25 Chief Complaint: Venous stasis ulceration left lower extremity History of Wound: This is a 74-year-old male who presents to the wound care center for continued aid in healing of a venous stasis ulceration to the lateral aspect of the left lower extremity. Ulceration is secondary to chronic venous insufficiency and lower extremity edema. He had been unable to wear his compression stockings due to significant edema and previous heart failure. 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 This did lead to improvement in lower extremity edema however still does get swelling secondary to his chronic venous insufficiency which did lead to ulceration to the lateral aspect of the left leg. He had been undergoing local wound care in office over the course of 6 weeks with applications of Benito however ulceration has failed to improve with this and compression stocking. He continues to change dressing daily with Benito and does have visiting nursing to assist in dressing changes. States that he continues to wear his compression stocking and tries to elevate when possible. He does assist in care for his so elevation at all times of rest poses difficulty. Denies trauma to the leg. Denies N/V/F/chills/SOB. Denies further complaints. Subjective Subjective This is a 74-year-old male who presents to the wound care center for continued care of bilateral lower extremity venous stasis ulcerations. He continues Unna boot compression and is tolerating this well. He continues his 80 mg furosemide daily and notices that this continues to control edema body wide. He is attempting to continue to elevate legs is much as possible. Reports remains in extended care at [facility] where she still continues to fight. He continues to visit her daily. Accompanied by daughter in law who notes wounds continue improving with one wound healed. He denies constitutional symptoms. Denies further complaints today. Objective Data Objective Data Vital Signs: Vital Signs Temp Pulse Resp BP O2 Del Method 98 F 70 18 130/87 H Room Air 05/01/25 11:27 05/01/25 11:27 05/01/25 11:27 05/01/25 11:27 04/28/25 11:21 Oxygen Delivery Method Room Air Weight: 105.994 kg Body Mass Index (BMI) 35.5 Physical Exam Const alert, oriented x3 and no apparent distress General Appearance: cooperative HEENT normocephalic Eyes General Eye: normal appearance of both eyes Neck General: normal visual inspection Lymph Lymphatic: no lymphadenopathy noted and no lymphedema noted Resp normal respiratory effort Cardio regular rate and regular rhythm Extremity no calf tenderness Extremity Narrative: Bilateral lower extremity: Vascular: DP and PT pulses weakly palpable. CFT is less than 5 seconds to digits. Normal temperature gradient. Hair growth is absent to digits. Neurologic: Gross sensation intact. There is decreased protective sensation consistent with diabetic peripheral polyneuropathy. Musculoskeletal: Muscle strength 5 of 5 age-appropriate. There is decreased range of motion of the ankle joint dorsiflexion with the knee extended without pain or crepitus bilateral. There is decreased range of motion of the first metatarsophalangeal joint without pain or crepitus bilateral. No pain to palpation of calf bilateral. Dermatologic: Bilateral lower extremities demonstrate lipodermatosclerosis with hyperpigmentation to the pretibial region. Previous scaling/eczematous skin improved following compression of Unna boot therapy. Full-thickness ulceration to the right lower extremity remains healed. There are 2 full-thickness ulcerations to the left lower extremity 1 medial and 1 lateral. Medial ulceration has now healed. Lateral ulceration demonstrate mixed fibrogranular layer, but are improving. No signs of infection. Skin no rashes or lesions noted General Skin Exam: venous stasis and dermatitis Neuro moves all extremities Debridement Note Debridement Note Wound debrided: Left lateral lower extremity Laterality: Left Wound Grade/Stage: Swain stage I Type of Debridement: Excisional debridement Anesthesia Used: 5% Lidocaine Gel Depth: Down to and including healthy tissue and in the subcutaneous layer Percentage of wound debrided: 100 Instrument Used: 5mm curette Tissue Removed: Fibrous, devitalized subcutaneous, biofilm, slough Severity: Fat Layer Exposed Amount of bleeding with debridement: Mild Bleeding Controlled with: Compression and gauze Patient tolerated procedure: Patient tolerated procedure well Post-Debridement Measurements and Additional Note: Post-Debridement Measurements/Treatment CLAUDETTE - Nurse 1 - General Ulcer Assessment Start: 04/14/25 11:01 Freq: Status: Active Protocol: LIZZY Activity Type Activity Date Activity User E-sign Co-sign Detail Recorded Client Recorded Date Recorded By Document 04/14/25 11:01 JF [id number] 04/14/25 11:02 JF Document 04/17/25 11:32 KW [id number] 04/17/25 11:45 KW Document 04/21/25 08:12 KW [id number] 04/21/25 08:14 KW Document 04/24/25 09:29 DL [id number] 04/24/25 09:45 DL Document 04/28/25 11:21 KW [id number] 04/28/25 11:23 KW Document 05/01/25 11:27 DL [id number] 05/01/25 11:41 DL 04/14/25 04/17/25 04/21/25 11:01 11:32 08:12 WC - Today's Visit Information Type of service Nurse-only Follow-up Visit Nurse-only Visit (Physician/LOG CHAIN WORKER Visit ) Arrival Mode Ambulatory, Ambulatory, Ambulatory, Walker Walker Walker Transfer Assistance Accompanied by DIL daughter in law Patient Identification Verified (Name & Yes Yes Yes ) Patient Requires Transmission-Based No Precautions Height and Weight Body Mass Index (BMI) 35.5 35.5 35.5 BMI Classification Obese Obese Obese Vital Signs Temperature (97.8 F-99.1 F) 98.3 F 98.2 F 97.8 F Temperature Source Temporal Temporal Temporal Pulse Rate (60-100) 70 67 66 Pulse Location Monitor Monitor Monitor Respiratory Rate (12-18) 16 18 18 Respiratory rate source Observation Observation Observation Oxygen Delivery Method Room Air Room Air Blood Pressure (90/60-120/80) 118/58 L 124/54 H 131/47 H Blood Pressure Mean (mm Hg) 78 77 75 Source Monitor Monitor Monitor Position Semi-Fowlers Semi-Fowlers Semi-Fowlers Blood Pressure Location Left Arm Left Arm Right Forearm History Since Last Visit- (Skip if this is Patient's initial visit) Have you changed medications since your No No last visit? Any new allergies or adverse reactions No No Had a fall/change in ADL's that may No No increase risk of falls Signs or symptoms of abuse and/or No No neglect since last visit Have you been in the hospital since your No No last visit? Has dressing in place as prescribed Yes Yes Has compression in place as prescribed Yes Yes Has offloadiing in place as prescribed Yes N/A Experienced any changes in pain level or No No management Left Footwear Regular Shoe Regular Shoe Regular Shoe Right Footwear Regular Shoe Regular Shoe Regular Shoe Pain Scale: 0-10 Numeric Is Patient Pain Free? Yes Yes Yes 04/24/25 04/28/25 05/01/25 09:29 11:21 11:27 - Today's Visit Information Type of service Follow-up Visit Nurse-only Follow-up Visit (Physician/LOG CHAIN WORKER Visit (Physician/LOG CHAIN WORKER ) ) Arrival Mode Ambulatory, Ambulatory, Ambulatory, Walker Walker Walker Transfer Assistance None None Accompanied by daughter Patient Identification Verified (Name & Yes Yes Yes ) Patient Requires Transmission-Based No No Precautions Height and Weight Body Mass Index (BMI) 35.5 35.5 35.5 BMI Classification Obese Obese Obese Vital Signs Temperature (97.8 F-99.1 F) 97.6 F L 96.6 F L 98 F Temperature Source Temporal Temporal Temporal Pulse Rate (60-100) 67 64 70 Pulse Location Monitor Monitor Monitor Respiratory Rate (12-18) 18 16 18 Respiratory rate source Observation Observation Observation Oxygen Delivery Method Room Air Blood Pressure (90/60-120/80) 116/64 114/48 L 130/87 H Blood Pressure Mean (mm Hg) 81 70 101 Source Monitor Monitor Monitor Position Semi-Fowlers Blood Pressure Location Left Arm History Since Last Visit- (Skip if this is Patient's initial visit) Have you changed medications since your No No No last visit? Any new allergies or adverse reactions No No No Had a fall/change in ADL's that may No No No increase risk of falls Signs or symptoms of abuse and/or No No No neglect since last visit Have you been in the hospital since your No No No last visit? Has dressing in place as prescribed Yes Yes Yes Has compression in place as prescribed Yes Yes Yes Has offloadiing in place as prescribed Yes N/A N/A Experienced any changes in pain level or No No No management Left Footwear Regular Shoe Right Footwear Regular Shoe Pain Scale: 0-10 Numeric Is Patient Pain Free? Yes Yes Yes - Nurse 1 - General Ulcer Measurement Start: 04/14/25 11:01 Freq: Status: Active Protocol: Activity Type Activity Date Activity User E-sign Co-sign Detail Recorded Client Recorded Date Recorded By Document 04/14/25 11:01 JF [id number] 04/14/25 11:02 JF Document 04/17/25 11:32 KW [id number] 04/17/25 11:45 KW Document 04/21/25 08:14 KW [id number] 04/21/25 08:14 KW Document 04/24/25 09:29 DL [id number] 04/24/25 09:45 DL Document 05/01/25 11:27 DL [id number] 05/01/25 11:41 DL 04/14/25 04/17/25 04/21/25 11:01 11:32 08:14 Wound Center Nurse 1 #5 LLE med -Current Size (cm) - Length 0.1 -Current Size (cm) - Width 0.1 -Current Size (cm) - Depth 0.1 -Total Square Cm 0.01 -Date of Last Picture (Recall this 04/17/25 field) -Exudate Amt Small -Exudate Type Serosanguineous -Wound Margin Distinct, Outline Attached -Granulation Amt Large (67-100%) -Granulation Quality Red -Necrosis Amt -Necrotic Tissue Type -Structure Exposed -Texture (Lyndsey-wound Skin Appearance) Assessed -Moisture (Lynsdey-wound Skin Appearance) Assessed -Color (Lyndsey-wound Skin Appearance) Assessed, Hemosiderin Staining -Temperature (Lyndsey-wound Skin No Abnormality Appearance) (Pt Warm) -Tenderness on Palpation (Lyndsey-wound Skin Appearance) -Ulcer Cleansing Soap and Water -Foul Odor after Cleansing No -Anesthetic Used 5% Lidocaine Gel -Wound Comment(s) not measured during nurse 1 #3 LLE Lat Cluster -Current Size (cm) - Length 0.1 -Current Size (cm) - Width 0.1 -Current Size (cm) - Depth 0.1 -Total Square Cm 0.01 -Date of Last Picture (Recall this 04/17/25 field) -Exudate Amt Small -Exudate Type Serosanguineous -Wound Margin Distinct, Outline Attached -Granulation Amt Large (67-100%) -Granulation Quality Red -Necrosis Amt -Necrotic Tissue Type -Structure Exposed -Texture (Lyndsey-wound Skin Appearance) Assessed -Moisture (Lyndsey-wound Skin Appearance) Assessed -Color (Lyndsey-wound Skin Appearance) Assessed, Hemosiderin Staining -Temperature (Lyndsey-wound Skin No Abnormality Appearance) (Pt Warm) -Tenderness on Palpation (Lyndsey-wound No Skin Appearance) -Ulcer Cleansing Soap and Water -Foul Odor after Cleansing No -Anesthetic Used 5% Lidocaine Gel -Wound Comment(s) not measured during nurse 1 Lower Limb Edema Present NA Right Calf (cm) 34.5 35.2 Right Ankle (cm) 26.5 25.3 Left Calf (cm) 35.5 35.2 Left Ankle (cm) 27 25.8 04/24/25 05/01/25 09:29 11:27 Wound Center Nurse 1 #5 LLE med -Current Size (cm) - Length 0.6 0.1 -Current Size (cm) - Width 0.4 0.1 -Current Size (cm) - Depth 0.2 0.1 -Total Square Cm 0.24 0.01 -Date of Last Picture (Recall this field) -Exudate Amt Small None Present -Exudate Type Serosanguineous -Wound Margin Distinct, Thickened Outline Attached -Granulation Amt Small (1-33%) None Present (0 %) -Granulation Quality Red -Necrosis Amt Small (1-33%) Small (1-33%) -Necrotic Tissue Type Adherent Slough Eschar -Structure Exposed N/A N/A -Texture (Lyndsey-wound Skin Appearance) Scarring Scarring -Moisture (Lyndsey-wound Skin Appearance) No Abnormality -Color (Lyndsey-wound Skin Appearance) Hemosiderin Hemosiderin Staining Staining -Temperature (Lyndsey-wound Skin No Abnormality No Abnormality Appearance) (Pt Warm) (Pt Warm) -Tenderness on Palpation (Lyndsey-wound No Skin Appearance) -Ulcer Cleansing Not Cleansed Soap and Water -Foul Odor after Cleansing No No -Anesthetic Used 5% Lidocaine 5% Lidocaine Gel Gel -Wound Comment(s) #3 LLE Lat Cluster -Current Size (cm) - Length 1.6 0.5 -Current Size (cm) - Width 1 0.4 -Current Size (cm) - Depth 0.2 0.1 -Total Square Cm 1.6 0.20 -Date of Last Picture (Recall this field) -Exudate Amt Medium Small -Exudate Type Serosanguineous Serosanguineous -Wound Margin Distinct, Distinct, Outline Outline Attached Attached -Granulation Amt Large (67-100%) Small (1-33%) -Granulation Quality Red Red -Necrosis Amt None Present (0 Small (1-33%) %) -Necrotic Tissue Type Adherent Slough -Structure Exposed N/A N/A -Texture (Lyndsey-wound Skin Appearance) Scarring Scarring -Moisture (Lyndsey-wound Skin Appearance) No Abnormality No Abnormality -Color (Lyndsey-wound Skin Appearance) Hemosiderin No Abnormality Staining -Temperature (Lyndsey-wound Skin No Abnormality No Abnormality Appearance) (Pt Warm) (Pt Warm) -Tenderness on Palpation (Lyndsey-wound No Skin Appearance) -Ulcer Cleansing Soap and Water Soap and Water -Foul Odor after Cleansing No No -Anesthetic Used 5% Lidocaine 5% Lidocaine Gel Gel -Wound Comment(s) Lower Limb Edema Present Right Calf (cm) 34 34 Right Ankle (cm) 24.5 25.2 Left Calf (cm) 34 34 Left Ankle (cm) 25.2 25.6 WC - Nurse 2 - General Ulcer CM Notes Start: 04/14/25 11:01 Freq: Status: Active Protocol: Activity Type Activity Date Activity User E-sign Co-sign Detail Recorded Client Recorded Date Recorded By Document 04/17/25 12:04 [facility] [id number] 04/17/25 12:08 [facility] Document 04/24/25 10:03 [facility] [id number] 04/24/25 10:08 [facility] 04/17/25 04/24/25 12:04 10:03 Wound Center Nurse 2 #5 LLE med -Time 12:04 10:04 -Correct Patient Yes Yes -Correct Side, Site, Position Yes Yes -Correct Procedure Yes Yes -Procedure Performed Yes Yes -Type of Procedure Debridement Debridement -Clinical Debridement Subcutaneous Subcutaneous -Tissue Removed Subcutaneous Subcutaneous -Post Debridement (cm) - Length 1 0.7 -Post Debridement (cm) - Width 0.5 0.5 -Post Debridement (cm) - Depth 0.1 0.1 -Total Square (Post) (cm) 0.5 0.35 -Area of Debridement (cm) - Length 1 0.7 -Area of Debridement (cm) - Width 0.5 0.5 -Total Square (Area) (cm) 0.5 0.35 -Tunneling No No -Undermining/Tunneling No No -Circular Undermining No No -Wound/Ulcer Outcome Not Healed Not Healed -Ulcer Cleansing Rinsed/ Rinsed/ Irrigated with Irrigated with Saline Saline -Foul Odor after Cleansing No No -Bioengineered Tissue No No -Bleeding Controlled with Pressure Pressure -Treatment Response Procedure Procedure Tolerated Well Tolerated Well -Debridement - Subq, 1st 20sq cm Yes Yes #3 LLE Lat Cluster -Time 12:05 10:04 -Correct Patient Yes Yes -Correct Side, Site, Position Yes Yes -Correct Procedure Yes Yes -Procedure Performed Yes Yes -Type of Procedure Debridement Debridement -Clinical Debridement Subcutaneous Subcutaneous -Tissue Removed Subcutaneous Subcutaneous -Post Debridement (cm) - Length 2.5 1.8 -Post Debridement (cm) - Width 1.6 1 -Post Debridement (cm) - Depth 0.1 0.1 -Total Square (Post) (cm) 4.00 1.8 -Area of Debridement (cm) - Length 2.5 1.8 -Area of Debridement (cm) - Width 1.6 1 -Total Square (Area) (cm) 4.00 1.8 -Tunneling No No -Undermining/Tunneling No No -Circular Undermining No -Wound/Ulcer Outcome Not Healed Not Healed -Ulcer Cleansing Rinsed/ Rinsed/ Irrigated with Irrigated with Saline Saline -Foul Odor after Cleansing No No -Bioengineered Tissue No -Bleeding Controlled with Pressure Pressure -Treatment Response Procedure Procedure Tolerated Well Tolerated Well -Debridement - Subq, 1st 20sq cm No No Pain Scale: 0-10 Numeric Is Patient Pain Free? Yes Yes - Nurse 3 - General Ulcer D/C NN Start: 04/14/25 11:01 Freq: Status: Active Protocol: Activity Type Activity Date Activity User E-sign Co-sign Detail Recorded Client Recorded Date Recorded By Document 04/14/25 11:01 [id number] 04/14/25 11:02 Document 04/17/25 12:25 DL [id number] 04/17/25 12:26 DL Document 04/21/25 08:12 KW [id number] 04/21/25 08:14 KW Document 04/24/25 10:36 DL [id number] 04/24/25 10:37 DL Document 04/28/25 11:21 KW [id number] 04/28/25 11:23 KW 04/14/25 04/17/25 04/21/25 11:01 12:25 08:12 Pain Scale: 0-10 Numeric Is Patient Pain Free? Yes Yes Yes Wound Care Center Nurse 3 #5 LLE med -Ulcer Cleansing Soap and Water Soap and Water Soap and Water -Foul Odor after Cleansing -Primary Dressing Applied Promogran Promogran Benito Matter Benito Matter -Other Dressing pt own benito -Primary Dressing Covered/Secured with Dry Gauze Dry Gauze -Other Covering unna -Promogran Benito Matter 1 1 #3 LLE Lat Cluster -Ulcer Cleansing Soap and Water Soap and Water -Foul Odor after Cleansing No -Other Dressing benito [place] benito -Primary Dressing Covered/Secured with Dry Gauze -Other Covering unna BLE -Multi-Layered Wrap Application Unna Boot - Unna Boot - Unna Boot - Bilateral Bilateral Bilateral -Unna- Bilat (Qty applied) 1 1 1 Treatment Response Procedure Tolerated Well WC - Visit Discharge Discharge Condition Stable Stable Stable Ambulatory Status Ambulatory, Ambulatory Ambulatory, Walker Walker Transportation Private Auto Private Auto Private Auto Accompanied by Medication Reconcilliation completed & No provided to patient/care provider Clinical Summary of Care Provided Yes Facility Type Home Health Orders Sent Yes 04/24/25 04/28/25 10:36 11:21 Pain Scale: 0-10 Numeric Is Patient Pain Free? Yes Yes Wound Care Center Nurse 3 #5 LLE med -Ulcer Cleansing Rinsed/ Soap and Water Irrigated with Saline -Foul Odor after Cleansing No -Primary Dressing Applied NonAdherent Contact Layer -Other Dressing Benito pt own benito -Primary Dressing Covered/Secured with -Other Covering -Promogran Benito Matter #3 LLE Lat Cluster -Ulcer Cleansing Rinsed/ Soap and Water Irrigated with Saline -Foul Odor after Cleansing No -Other Dressing Benito pt own benito with adaptic -Primary Dressing Covered/Secured with -Other Covering BLE -Multi-Layered Wrap Application Unna Boot - Unna Boot - Bilateral Bilateral -Unna- Bilat (Qty applied) 1 1 Treatment Response Procedure Tolerated Well WC - Visit Discharge Discharge Condition Stable Stable Ambulatory Status Ambulatory, Ambulatory, Walker Walker Transportation Private Auto Private Auto Accompanied by family Medication Reconcilliation completed & No provided to patient/care provider Clinical Summary of Care Provided Yes Facility Type Orders Sent Assessment/Plan Assessment/Plan (1) Non-pressure chronic ulcer of left calf with fat layer exposed: CODE(S): L97.222 - Non-pressure chronic ulcer of left calf with fat layer exposed (2) Venous insufficiency (chronic) (peripheral): CODE(S): I87.2 - Venous insufficiency (chronic) (peripheral) (3) Lipodermatosclerosis of both lower extremities: CODE(S): M79.3 - Panniculitis, unspecified (4) Diabetes mellitus with diabetic polyneuropathy: CODE(S): E11.42 - Type 2 diabetes mellitus with diabetic polyneuropathy QUALIFIERS: Diabetes mellitus type: type 2 (5) Diabetes mellitus with ulcer of calf: CODE(S): E11.622 - Type 2 diabetes mellitus with other skin ulcer; L97.209 - Non-pressure chronic ulcer of unspecified calf with unspecified severity (6) Bilateral lower extremity edema: CODE(S): R60.0 - Localized edema PLAN: Plan Patient seen and evaluated Predebridement ulceration measurement: Right lower extremity healed Left medial lower extremity healed Left lateral lower extremity 0.7 cm x 0.3 cm x 0.1 cm Ulceration underwent debridement as noted in the clinical panel above. Postdebridement measurement: Left medial lower extremity healed; left lateral lower extremity 0.8 cm x 0.4 cm x 0.1 cm. Benito applied to ulcerative bases and left lower extremity Unna boot compression was applied. Compression stocking to right lower extremity. Will return on 05/05/2025 for Unna boot change with nurse visit. There is continued reduction in size ulcerative sites versus his previous visit. He is healing well at this time. It has been discussed with the patient that he is to continue to sleep on flat mattress at night with leg elevation as much as possible at night and throughout the day to be heart level or higher. He has been advised against prolonged sitting. 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 He has been advised to not pick at any dry skin or excessively scrub while in the shower to prevent opening of ulcerations as his skin is friable. Skin continues to improve via use of Unna boot compression. Discussed signs and symptoms of infection. Discussed if he notices increasing redness about his legs moving up the leg, if he notices any purulent drainage from his wound sites, increasing foul odor from the wound sites, or if he experiences fever greater than 101 degree accompanied by nausea, vomiting, chills that these are signs of a progressing infection and he should report to the ED for IV antibiotic and further evaluation. He is understanding of this today. The following work up and care recommendations were made: Dressing: Benito to ulcerative bed. Unna boot compression left lower extremity. Compression stocking right lower extremity Wash: Do not get wet. Utilize cast bag when showering to maintain compliance for left lower extremity. Tissue growth optimization: Benito Offload: Unna boot compression therapy/compression stocking Vascular: Vascular status not impeding healing, chronic venous stasis and lipodermatosclerosis do complicate healing. Edema: Unna boot compression therapy and elevation of lower extremities at all times of rest. Infection: No signs of infection currently. Will finish oral linezolid and continue with intranasal mupirocin. Pain: May take [id number] Tylenol Extra Strength for any discomfort. Currently no pain secondary to diabetic peripheral polyneuropathy Host factors: DM type II with peripheral polyneuropathy, lipodermatosclerosis/chronic venous stasis to complicate healing. He will return 05/05/2025 for change of Unna boot to left lower extremity as nurse visit. I answered all the patient's questions. To return to the wound healing center in 1 week or call sooner if the patient has any questions or concerns.
[2025-05-05 13:03] VITALS: BP 107/70; PULSE 66; RESP 18; TEMP 36.1; BMI 35.5
[2025-05-08 08:06] VITALS: BP 116/68; PULSE 75; RESP 18; TEMP 36.1; BMI 35.5
--- NOTE | 2025-05-08 09:31 | PCM.WC.PN ---
History of Present Illness Date of Service: 05/08/25 Chief Complaint: Venous stasis ulceration left lower extremity History of Wound: This is a 74-year-old male who presents to the wound care center for continued aid in healing of a venous stasis ulceration to the lateral aspect of the left lower extremity. Ulceration is secondary to chronic venous insufficiency and lower extremity edema. He had been unable to wear his compression stockings due to significant edema and previous heart failure. 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 This did lead to improvement in lower extremity edema however still does get swelling secondary to his chronic venous insufficiency which did lead to ulceration to the lateral aspect of the left leg. He had been undergoing local wound care in office over the course of 6 weeks with applications of Melina however ulceration has failed to improve with this and compression stocking. He continues to change dressing daily with Melina and does have visiting nursing to assist in dressing changes. States that he continues to wear his compression stocking and tries to elevate when possible. He does assist in care for his so elevation at all times of rest poses difficulty. Denies trauma to the leg. Denies N/V/F/chills/SOB. Denies further complaints. Subjective Subjective This is a 74-year-old male who presents to the wound care center for continued care of bilateral lower extremity venous stasis ulcerations. He continues Unna boot compression and is tolerating this well. He continues his 80 mg furosemide daily and notices that this continues to control edema body wide. He is attempting to continue to elevate legs is much as possible. Reports remains in extended care at [place] where she still continues to fight. He continues to visit her daily. Accompanied by daughter in law who notes wounds continue improving with wounds nearly healed. He does also enjoy time riding an electric tricycle around his property. He denies constitutional symptoms. Denies further complaints today. Objective Data Objective Data Vital Signs: Vital Signs Temp Pulse Resp BP O2 Del Method 97.0 F L 75 18 116/68 Room Air 05/08/25 08:06 05/08/25 08:06 05/08/25 08:06 05/08/25 08:06 05/08/25 08:06 Oxygen Delivery Method Room Air Weight: 105.994 kg Body Mass Index (BMI) 35.5 Physical Exam Const alert, oriented x3 and no apparent distress General Appearance: cooperative HEENT normocephalic Eyes General Eye: normal appearance of both eyes Neck General: normal visual inspection Lymph Lymphatic: no lymphadenopathy noted and no lymphedema noted Resp normal respiratory effort Cardio regular rate and regular rhythm Extremity no calf tenderness Extremity Narrative: Bilateral lower extremity: Vascular: DP and PT pulses weakly palpable. CFT is less than 5 seconds to digits. Normal temperature gradient. Hair growth is absent to digits. Neurologic: Gross sensation intact. There is decreased protective sensation consistent with diabetic peripheral polyneuropathy. Musculoskeletal: Muscle strength 5 of 5 age-appropriate. There is decreased range of motion of the ankle joint dorsiflexion with the knee extended without pain or crepitus bilateral. There is decreased range of motion of the first metatarsophalangeal joint without pain or crepitus bilateral. No pain to palpation of calf bilateral. Dermatologic: Bilateral lower extremities demonstrate lipodermatosclerosis with hyperpigmentation to the pretibial region. Previous scaling/eczematous skin improved following compression of Unna boot therapy. Full-thickness ulceration to the right lower extremity remains healed. There are 2 full-thickness ulcerations to the left lower extremity 1 medial and 1 lateral. Medial ulceration remains healed. Lateral ulceration demonstrate superficial stable eschar today. No signs of infection. Skin no rashes or lesions noted General Skin Exam: venous stasis and dermatitis Neuro moves all extremities Debridement Note Debridement Note No debridement was completed: No debridement was completed today Post-Debridement Measurements and Additional Note: Post-Debridement Measurements/Treatment CLAUDETTE - Nurse 1 - General Ulcer Assessment Start: 04/14/25 11:01 Freq: Status: Active Protocol: LIZZY Activity Type Activity Date Activity User E-sign Co-sign Detail Recorded Client Recorded Date Recorded By Document 04/14/25 11:01 JF [id number] 04/14/25 11:02 JF Document 04/17/25 11:32 KW [id number] 04/17/25 11:45 KW Document 04/21/25 08:12 KW [id number] 04/21/25 08:14 KW Document 04/24/25 09:29 DL [id number] 04/24/25 09:45 DL Document 04/28/25 11:21 KW [id number] 04/28/25 11:23 KW Document 05/01/25 11:27 DL [id number] 05/01/25 11:41 DL Document 05/05/25 13:03 DL [id number] 05/05/25 13:21 DL Document 05/08/25 08:06 KW [id number] 05/08/25 08:15 KW 04/14/25 04/17/25 04/21/25 11:01 11:32 08:12 WC - Today's Visit Information Type of service Nurse-only Follow-up Visit Nurse-only Visit (Physician/SOFTBALL WINDER Visit ) Arrival Mode Ambulatory, Ambulatory, Ambulatory, Walker Walker Walker Transfer Assistance Accompanied by DIL daughter in law Patient Identification Verified (Name & Yes Yes Yes ) Patient Requires Transmission-Based No Precautions Height and Weight Body Mass Index (BMI) 35.5 35.5 35.5 BMI Classification Obese Obese Obese Vital Signs Temperature (97.8 F-99.1 F) 98.3 F 98.2 F 97.8 F Temperature Source Temporal Temporal Temporal Pulse Rate (60-100) 70 67 66 Pulse Location Monitor Monitor Monitor Respiratory Rate (12-18) 16 18 18 Respiratory rate source Observation Observation Observation Oxygen Delivery Method Room Air Room Air Blood Pressure (90/60-120/80) 118/58 L 124/54 H 131/47 H Blood Pressure Mean (mm Hg) 78 77 75 Source Monitor Monitor Monitor Position Semi-Fowlers Semi-Fowlers Semi-Fowlers Blood Pressure Location Left Arm Left Arm Right Forearm History Since Last Visit- (Skip if this is Patient's initial visit) Have you changed medications since your No No last visit? Any new allergies or adverse reactions No No Had a fall/change in ADL's that may No No increase risk of falls Signs or symptoms of abuse and/or No No neglect since last visit Have you been in the hospital since your No No last visit? Has dressing in place as prescribed Yes Yes Has compression in place as prescribed Yes Yes Has offloadiing in place as prescribed Yes N/A Experienced any changes in pain level or No No management Left Footwear Regular Shoe Regular Shoe Regular Shoe Right Footwear Regular Shoe Regular Shoe Regular Shoe Pain Scale: 0-10 Numeric Is Patient Pain Free? Yes Yes Yes 04/24/25 04/28/25 05/01/25 09:29 11:21 11:27 WC - Today's Visit Information Type of service Follow-up Visit Nurse-only Follow-up Visit (Physician/SOFTBALL WINDER Visit (Physician/SOFTBALL WINDER ) ) Arrival Mode Ambulatory, Ambulatory, Ambulatory, Walker Walker Walker Transfer Assistance None None Accompanied by daughter Patient Identification Verified (Name & Yes Yes Yes ) Patient Requires Transmission-Based No No Precautions Height and Weight Body Mass Index (BMI) 35.5 35.5 35.5 BMI Classification Obese Obese Obese Vital Signs Temperature (97.8 F-99.1 F) 97.6 F L 96.6 F L 98 F Temperature Source Temporal Temporal Temporal Pulse Rate (60-100) 67 64 70 Pulse Location Monitor Monitor Monitor Respiratory Rate (12-18) 18 16 18 Respiratory rate source Observation Observation Observation Oxygen Delivery Method Room Air Blood Pressure (90/60-120/80) 116/64 114/48 L 130/87 H Blood Pressure Mean (mm Hg) 81 70 101 Source Monitor Monitor Monitor Position Semi-Fowlers Blood Pressure Location Left Arm History Since Last Visit- (Skip if this is Patient's initial visit) Have you changed medications since your No No No last visit? Any new allergies or adverse reactions No No No Had a fall/change in ADL's that may No No No increase risk of falls Signs or symptoms of abuse and/or No No No neglect since last visit Have you been in the hospital since your No No No last visit? Has dressing in place as prescribed Yes Yes Yes Has compression in place as prescribed Yes Yes Yes Has offloadiing in place as prescribed Yes N/A N/A Experienced any changes in pain level or No No No management Left Footwear Regular Shoe Right Footwear Regular Shoe Pain Scale: 0-10 Numeric Is Patient Pain Free? Yes Yes Yes 05/05/25 05/08/25 13:03 08:06 - Today's Visit Information Type of service Nurse-only Follow-up Visit Visit (Physician/SOFTBALL WINDER ) Arrival Mode Ambulatory, Ambulatory Walker Transfer Assistance None Accompanied by Patient Identification Verified (Name & Yes Yes ) Patient Requires Transmission-Based No Precautions Height and Weight Body Mass Index (BMI) 35.5 35.5 BMI Classification Obese Obese Vital Signs Temperature (97.8 F-99.1 F) 97 F L 97.0 F L Temperature Source Temporal Temporal Pulse Rate (60-100) 66 75 Pulse Location Monitor Monitor Respiratory Rate (12-18) 18 18 Respiratory rate source Observation Observation Oxygen Delivery Method Room Air Blood Pressure (90/60-120/80) 107/70 116/68 Blood Pressure Mean (mm Hg) 82 84 Source Monitor Monitor Position Semi-Fowlers Blood Pressure Location Left Arm History Since Last Visit- (Skip if this is Patient's initial visit) Have you changed medications since your No No last visit? Any new allergies or adverse reactions No No Had a fall/change in ADL's that may No No increase risk of falls Signs or symptoms of abuse and/or No No neglect since last visit Have you been in the hospital since your No No last visit? Has dressing in place as prescribed Yes Yes Has compression in place as prescribed Yes Yes Has offloadiing in place as prescribed N/A N/A Experienced any changes in pain level or No No management Left Footwear Regular Shoe Right Footwear Regular Shoe Pain Scale: 0-10 Numeric Is Patient Pain Free? Yes Yes WC - Nurse 1 - General Ulcer Measurement Start: 04/14/25 11:01 Freq: Status: Active Protocol: Activity Type Activity Date Activity User E-sign Co-sign Detail Recorded Client Recorded Date Recorded By Document 04/14/25 11:01 JF [id number] 04/14/25 11:02 JF Document 04/17/25 11:32 KW [id number] 04/17/25 11:45 KW Document 04/21/25 08:14 KW [id number] 04/21/25 08:14 KW Document 04/24/25 09:29 DL [id number] 04/24/25 09:45 DL Document 05/01/25 11:27 DL [id number] 05/01/25 11:41 DL Document 05/05/25 13:03 DL [id number] 05/05/25 13:21 DL Document 05/08/25 08:06 KW [id number] 05/08/25 08:15 KW 04/14/25 04/17/25 04/21/25 11:01 11:32 08:14 Wound Center Nurse 1 #5 LLE med -Current Size (cm) - Length 0.1 -Current Size (cm) - Width 0.1 -Current Size (cm) - Depth 0.1 -Total Square Cm 0.01 -Date of Last Picture (Recall this 04/17/25 field) -Exudate Amt Small -Exudate Type Serosanguineous -Wound Margin Distinct, Outline Attached -Granulation Amt Large (67-100%) -Granulation Quality Red -Necrosis Amt -Necrotic Tissue Type -Structure Exposed -Texture (Lyndsey-wound Skin Appearance) Assessed -Moisture (Lyndsey-wound Skin Appearance) Assessed -Color (Lyndsey-wound Skin Appearance) Assessed, Hemosiderin Staining -Temperature (Lyndsey-wound Skin No Abnormality Appearance) (Pt Warm) -Tenderness on Palpation (Lyndsey-wound Skin Appearance) -Ulcer Cleansing Soap and Water -Foul Odor after Cleansing No -Anesthetic Used 5% Lidocaine Gel -Wound Comment(s) not measured during nurse 1 #3 LLE Lat Cluster -Current Size (cm) - Length 0.1 -Current Size (cm) - Width 0.1 -Current Size (cm) - Depth 0.1 -Total Square Cm 0.01 -Date of Last Picture (Recall this 04/17/25 field) -Exudate Amt Small -Exudate Type Serosanguineous -Wound Margin Distinct, Outline Attached -Granulation Amt Large (67-100%) -Granulation Quality Red -Necrosis Amt -Necrotic Tissue Type -Structure Exposed -Texture (Lyndsey-wound Skin Appearance) Assessed -Moisture (Lyndsey-wound Skin Appearance) Assessed -Color (Lyndsey-wound Skin Appearance) Assessed, Hemosiderin Staining -Temperature (Lyndsey-wound Skin No Abnormality Appearance) (Pt Warm) -Tenderness on Palpation (Lyndsey-wound No Skin Appearance) -Ulcer Cleansing Soap and Water -Foul Odor after Cleansing No -Anesthetic Used 5% Lidocaine Gel -Wound Comment(s) not measured during nurse 1 Lower Limb Edema Present NA Right Calf (cm) 34.5 35.2 Right Ankle (cm) 26.5 25.3 Left Calf (cm) 35.5 35.2 Left Ankle (cm) 27 25.8 04/24/25 05/01/25 05/05/25 09:29 11:27 13:03 Wound Center Nurse 1 #5 LLE med -Current Size (cm) - Length 0.6 0.1 -Current Size (cm) - Width 0.4 0.1 -Current Size (cm) - Depth 0.2 0.1 -Total Square Cm 0.24 0.01 -Date of Last Picture (Recall this field) -Exudate Amt Small None Present -Exudate Type Serosanguineous -Wound Margin Distinct, Thickened Outline Attached -Granulation Amt Small (1-33%) None Present (0 %) -Granulation Quality Red -Necrosis Amt Small (1-33%) Small (1-33%) -Necrotic Tissue Type Adherent Slough Eschar -Structure Exposed N/A N/A -Texture (Lyndsey-wound Skin Appearance) Scarring Scarring -Moisture (Lyndsey-wound Skin Appearance) No Abnormality -Color (Lyndsey-wound Skin Appearance) Hemosiderin Hemosiderin Staining Staining -Temperature (Lyndsey-wound Skin No Abnormality No Abnormality Appearance) (Pt Warm) (Pt Warm) -Tenderness on Palpation (Lyndsey-wound No Skin Appearance) -Ulcer Cleansing Not Cleansed Soap and Water -Foul Odor after Cleansing No No -Anesthetic Used 5% Lidocaine 5% Lidocaine Gel Gel -Wound Comment(s) #3 LLE Lat Cluster -Current Size (cm) - Length 1.6 0.5 -Current Size (cm) - Width 1 0.4 -Current Size (cm) - Depth 0.2 0.1 -Total Square Cm 1.6 0.20 -Date of Last Picture (Recall this field) -Exudate Amt Medium Small None Present -Exudate Type Serosanguineous Serosanguineous -Wound Margin Distinct, Distinct, Distinct, Outline Outline Outline Attached Attached Attached -Granulation Amt Large (67-100%) Small (1-33%) Small (1-33%) -Granulation Quality Red Red Red -Necrosis Amt None Present (0 Small (1-33%) %) -Necrotic Tissue Type Adherent Slough -Structure Exposed N/A N/A N/A -Texture (Lyndsey-wound Skin Appearance) Scarring Scarring Scarring -Moisture (Lyndsey-wound Skin Appearance) No Abnormality No Abnormality No Abnormality -Color (Lyndsey-wound Skin Appearance) Hemosiderin No Abnormality Hemosiderin Staining Staining -Temperature (Lyndsey-wound Skin No Abnormality No Abnormality No Abnormality Appearance) (Pt Warm) (Pt Warm) (Pt Warm) -Tenderness on Palpation (Lyndsey-wound No No Skin Appearance) -Ulcer Cleansing Soap and Water Soap and Water Soap and Water -Foul Odor after Cleansing No No No -Anesthetic Used 5% Lidocaine 5% Lidocaine Gel Gel -Wound Comment(s) Lower Limb Edema Present Right Calf (cm) 34 34 Right Ankle (cm) 24.5 25.2 Left Calf (cm) 34 34 Left Ankle (cm) 25.2 25.6 05/08/25 08:06 Wound Center Nurse 1 #5 LLE med -Current Size (cm) - Length -Current Size (cm) - Width -Current Size (cm) - Depth -Total Square Cm -Date of Last Picture (Recall this field) -Exudate Amt -Exudate Type -Wound Margin -Granulation Amt -Granulation Quality -Necrosis Amt -Necrotic Tissue Type -Structure Exposed -Texture (Lyndsey-wound Skin Appearance) -Moisture (Lyndsey-wound Skin Appearance) -Color (Lyndsey-wound Skin Appearance) -Temperature (Lyndsey-wound Skin Appearance) -Tenderness on Palpation (Lyndsey-wound Skin Appearance) -Ulcer Cleansing -Foul Odor after Cleansing -Anesthetic Used -Wound Comment(s) #3 LLE Lat Cluster -Current Size (cm) - Length 0.1 -Current Size (cm) - Width 0.1 -Current Size (cm) - Depth 0 -Total Square Cm 0.01 -Date of Last Picture (Recall this 05/08/25 field) -Exudate Amt None Present -Exudate Type -Wound Margin Distinct, Outline Attached -Granulation Amt None Present (0 %) -Granulation Quality -Necrosis Amt Large (67-100%) -Necrotic Tissue Type Adherent Slough -Structure Exposed -Texture (Lyndsey-wound Skin Appearance) Assessed -Moisture (Lyndsey-wound Skin Appearance) Assessed -Color (Lyndsey-wound Skin Appearance) Assessed, Hemosiderin Staining -Temperature (Lyndsey-wound Skin No Abnormality Appearance) (Pt Warm) -Tenderness on Palpation (Lyndsey-wound No Skin Appearance) -Ulcer Cleansing Soap and Water -Foul Odor after Cleansing No -Anesthetic Used 5% Lidocaine Gel -Wound Comment(s) Lower Limb Edema Present Right Calf (cm) Right Ankle (cm) Left Calf (cm) 35.2 Left Ankle (cm) 26 WC - Nurse 2 - General Ulcer CM Notes Start: 04/14/25 11:01 Freq: Status: Active Protocol: Activity Type Activity Date Activity User E-sign Co-sign Detail Recorded Client Recorded Date Recorded By Document 04/17/25 12:04 BMF [id number] 04/17/25 12:08 BMF Document 04/24/25 10:03 BMF [id number] 04/24/25 10:08 BMF Document 05/01/25 12:04 [facility] [id number] 05/01/25 12:17 BMF Document 05/08/25 08:41 BM [id number] 05/08/25 08:43 [facility] 04/17/25 04/24/25 05/01/25 12:04 10:03 12:04 Wound Center Nurse 2 #5 JOSHUA med -Time 12: 10:04 12:11 -Correct Patient Yes Yes -Correct Side, Site, Position Yes Yes -Correct Procedure Yes Yes -Procedure Performed Yes Yes No -Type of Procedure Debridement Debridement -Clinical Debridement Subcutaneous Subcutaneous -Tissue Removed Subcutaneous Subcutaneous -Post Debridement (cm) - Length 1 0.7 0.1 -Post Debridement (cm) - Width 0.5 0.5 0.1 -Post Debridement (cm) - Depth 0.1 0.1 0.1 -Total Square (Post) (cm) 0.5 0.35 0.01 -Area of Debridement (cm) - Length 1 0.7 0.1 -Area of Debridement (cm) - Width 0.5 0.5 0.1 -Total Square (Area) (cm) 0.5 0.35 0.01 -Tunneling No No No -Undermining/Tunneling No No No -Circular Undermining No No No -Wound/Ulcer Outcome Not Healed Not Healed Not Healed -Ulcer Cleansing Rinsed/ Rinsed/ Irrigated with Irrigated with Saline Saline -Foul Odor after Cleansing No No -Bioengineered Tissue No No -Bleeding Controlled with Pressure Pressure NA -Treatment Response Procedure Procedure Tolerated Well Tolerated Well -Debridement - Subq, 1st 20sq cm Yes Yes #3 LLE Lat Cluster -Time 12:05 10:04 12:15 -Correct Patient Yes Yes Yes -Correct Side, Site, Position Yes Yes Yes -Correct Procedure Yes Yes Yes -Procedure Performed Yes Yes Yes -Type of Procedure Debridement Debridement Debridement -Clinical Debridement Subcutaneous Subcutaneous Subcutaneous -Tissue Removed Subcutaneous Subcutaneous Subcutaneous -Post Debridement (cm) - Length 2.5 1.8 0.8 -Post Debridement (cm) - Width 1.6 1 0.4 -Post Debridement (cm) - Depth 0.1 0.1 0.1 -Total Square (Post) (cm) 4.00 1.8 0.32 -Area of Debridement (cm) - Length 2.5 1.8 0.8 -Area of Debridement (cm) - Width 1.6 1 0.4 -Total Square (Area) (cm) 4.00 1.8 0.32 -Tunneling No No No -Undermining/Tunneling No No No -Circular Undermining No No -Wound/Ulcer Outcome Not Healed Not Healed Not Healed -Ulcer Cleansing Rinsed/ Rinsed/ Rinsed/ Irrigated with Irrigated with Irrigated with Saline Saline Saline -Foul Odor after Cleansing No No No -Bioengineered Tissue No No -Bleeding Controlled with Pressure Pressure Pressure -Treatment Response Procedure Procedure Tolerated Well Tolerated Well -Debridement - Subq, 20sq cm No No Yes Pain Scale: 0-10 Numeric Is Patient Pain Free? Yes Yes Yes 05/08/25 08:41 Wound Center Nurse 2 #5 LLE med -Time -Correct Patient -Correct Side, Site, Position -Correct Procedure -Procedure Performed -Type of Procedure -Clinical Debridement -Tissue Removed -Post Debridement (cm) - Length -Post Debridement (cm) - Width -Post Debridement (cm) - Depth -Total Square (Post) (cm) -Area of Debridement (cm) - Length -Area of Debridement (cm) - Width -Total Square (Area) (cm) -Tunneling -Undermining/Tunneling -Circular Undermining -Wound/Ulcer Outcome -Ulcer Cleansing -Foul Odor after Cleansing -Bioengineered Tissue -Bleeding Controlled with -Treatment Response -Debridement - Subq, 20sq cm #3 LLE Lat Cluster -Time 08:41 -Correct Patient -Correct Side, Site, Position -Correct Procedure -Procedure Performed No -Type of Procedure -Clinical Debridement -Tissue Removed -Post Debridement (cm) - Length 0.1 -Post Debridement (cm) - Width 0.1 -Post Debridement (cm) - Depth 0.1 -Total Square (Post) (cm) 0.01 -Area of Debridement (cm) - Length 0.1 -Area of Debridement (cm) - Width 0.1 -Total Square (Area) (cm) 0.01 -Tunneling -Undermining/Tunneling -Circular Undermining -Wound/Ulcer Outcome Not Healed -Ulcer Cleansing -Foul Odor after Cleansing -Bioengineered Tissue -Bleeding Controlled with NA -Treatment Response -Debridement - Subq, 20sq cm Pain Scale: 0-10 Numeric Is Patient Pain Free? Yes WC - Nurse 3 - General Ulcer D/C NN Start: 04/14/25 11:01 Freq: Status: Active Protocol: Activity Type Activity Date Activity User E-sign Co-sign Detail Recorded Client Recorded Date Recorded By Document 04/14/25 11:01 JF [id number] 04/14/25 11:02 JF Document 04/17/25 12:25 DL [id number] 04/17/25 12:26 DL Document 04/21/25 08:12 KW [id number] 04/21/25 08:14 KW Document 04/24/25 10:36 DL [id number] 04/24/25 10:37 DL Document 04/28/25 11:21 KW [id number] 04/28/25 11:23 KW Document 05/01/25 12:11 DL [id number] 05/01/25 12:13 DL Document 05/05/25 13:03 DL [id number] 05/05/25 13:21 DL Document 05/08/25 09:09 DL [id number] 05/08/25 09:10 DL 04/14/25 04/17/25 04/21/25 11:01 12:25 08:12 Pain Scale: 0-10 Numeric Is Patient Pain Free? Yes Yes Yes Wound Care Center Nurse 3 #5 LLE med -Ulcer Cleansing Soap and Water Soap and Water Soap and Water -Foul Odor after Cleansing -Primary Dressing Applied Promogran Promogran Melina Matter Melina Matter -Other Dressing pt own melina -Primary Dressing Covered/Secured with Dry Gauze Dry Gauze -Other Covering unna -Promogran Melina Matter 1 1 #3 LLE Lat Cluster -Ulcer Cleansing Soap and Water Soap and Water -Foul Odor after Cleansing No -Other Dressing [place] melina -Primary Dressing Covered/Secured with Dry Gauze -Other Covering unna -Wound Comment(s) LLE -Multi-Layered Wrap Application -Unna- Left (Qty applied) BLE -Multi-Layered Wrap Application Unna Boot - Unna Boot - Unna Boot - Bilateral Bilateral Bilateral -Stockings -Unna- Bilat (Qty applied) 1 1 1 Treatment Response Procedure Tolerated Well WC - Visit Discharge Discharge Condition Stable Stable Stable Ambulatory Status Ambulatory, Ambulatory Ambulatory, Walker Walker Transportation Private Auto Private Auto Private Auto Accompanied by Medication Reconcilliation completed & No provided to patient/care provider Clinical Summary of Care Provided Yes Facility Type Home Health Orders Sent Yes 04/24/25 04/28/25 05/01/25 10:36 11:21 12:11 Pain Scale: 0-10 Numeric Is Patient Pain Free? Yes Yes Yes Wound Care Center Nurse 3 #5 LLE med -Ulcer Cleansing Rinsed/ Soap and Water Irrigated with Saline -Foul Odor after Cleansing No -Primary Dressing Applied NonAdherent Contact Layer -Other Dressing Melina pt own melina -Primary Dressing Covered/Secured with -Other Covering -Promogran Melina Matter #3 LLE Lat Cluster -Ulcer Cleansing Rinsed/ Soap and Water Rinsed/ Irrigated with Irrigated with Saline Saline -Foul Odor after Cleansing No -Other Dressing Melina pt own melina MELINA with adaptic -Primary Dressing Covered/Secured with -Other Covering -Wound Comment(s) RLE STOCKINGS LLE -Multi-Layered Wrap Application Unna Boot - Left -Unna- Left (Qty applied) 1 BLE -Multi-Layered Wrap Application Unna Boot - Unna Boot - Bilateral Bilateral -Stockings -Unna- Bilat (Qty applied) 1 1 Treatment Response Procedure Procedure Tolerated Well Tolerated Well WC - Visit Discharge Discharge Condition Stable Stable Stable Ambulatory Status Ambulatory, Ambulatory, Ambulatory, Walker Walker Walker Transportation Private Auto Private Auto Private Auto Accompanied by family Medication Reconcilliation completed & No provided to patient/care provider Clinical Summary of Care Provided Yes Facility Type Orders Sent 05/05/25 05/08/25 13:03 09:09 Pain Scale: 0-10 Numeric Is Patient Pain Free? Yes Yes Wound Care Center Nurse 3 #5 LLE med -Ulcer Cleansing -Foul Odor after Cleansing -Primary Dressing Applied -Other Dressing -Primary Dressing Covered/Secured with -Other Covering -Promogran Melina Matter #3 LLE Lat Cluster -Ulcer Cleansing Soap and Water Soap and Water -Foul Odor after Cleansing No No -Other Dressing melina No Dressing -Primary Dressing Covered/Secured with -Other Covering Unna -Wound Comment(s) LLE -Multi-Layered Wrap Application Unna Boot - Left -Unna- Left (Qty applied) 1 BLE -Multi-Layered Wrap Application -Stockings Yes -Unna- Bilat (Qty applied) Treatment Response Procedure Procedure Tolerated Well Tolerated Well WC - Visit Discharge Discharge Condition Stable Stable Ambulatory Status Ambulatory, Ambulatory, Walker Walker Transportation Private Auto Private Auto Accompanied by family family Medication Reconcilliation completed & provided to patient/care provider Clinical Summary of Care Provided Facility Type Orders Sent Assessment/Plan Assessment/Plan (1) Non-pressure chronic ulcer of left calf with fat layer exposed: CODE(S): L97.222 - Non-pressure chronic ulcer of left calf with fat layer exposed (2) Venous insufficiency (chronic) (peripheral): CODE(S): I87.2 - Venous insufficiency (chronic) (peripheral) (3) Lipodermatosclerosis of both lower extremities: CODE(S): M79.3 - Panniculitis, unspecified (4) Diabetes mellitus with diabetic polyneuropathy: CODE(S): E11.42 - Type 2 diabetes mellitus with diabetic polyneuropathy QUALIFIERS: Diabetes mellitus type: type 2 (5) Diabetes mellitus with ulcer of calf: CODE(S): E11.622 - Type 2 diabetes mellitus with other skin ulcer; L97.209 - Non-pressure chronic ulcer of unspecified calf with unspecified severity (6) Bilateral lower extremity edema: CODE(S): R60.0 - Localized edema PLAN: Plan Patient seen and evaluated Predebridement ulceration measurement: Right lower extremity healed Left medial lower extremity healed Left lateral lower extremity 0.1 cm x 0.1 cm x 0.1 cm Ulceration did not undergo debridement as noted in the clinical panel above. Postdebridement measurement: Left medial lower extremity healed; left lateral lower extremity 0.1 cm x 0.1 cm x 0.1 cm. Compression stocking to bilateral lower extremity. There is continued reduction in size ulcerative sites versus his previous visit. He is healing well at this time. It has been discussed with the patient that he is to continue to sleep on flat mattress at night with leg elevation as much as possible at night and throughout the day to be heart level or higher. He has been advised against prolonged sitting. 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 He is nearly finished with prescription. He has been advised to not pick at any dry skin or excessively scrub while in the shower to prevent opening of ulcerations as his skin is friable. Skin continues to improve via use of Unna boot compression but with wound nearly healed we will transition to his traditional compression stocking. Discussed signs and symptoms of infection. Discussed if he notices increasing redness about his legs moving up the leg, if he notices any purulent drainage from his wound sites, increasing foul odor from the wound sites, or if he experiences fever greater than 101 degree accompanied by nausea, vomiting, chills that these are signs of a progressing infection and he should report to the ED for IV antibiotic and further evaluation. He is understanding of this today. The following work up and care recommendations were made: Dressing: Compression stocking bilateral lower extremity Wash: Soap and water Tissue growth optimization: None Offload: Compression stocking Vascular: Vascular status not impeding healing, chronic venous stasis and lipodermatosclerosis do complicate healing. Edema: Compression stocking and elevation of lower extremities at all times of rest. Infection: No signs of infection currently. Will finish oral linezolid and continue with intranasal mupirocin. Pain: May take [id number] Tylenol Extra Strength for any discomfort. Currently no pain secondary to diabetic peripheral polyneuropathy Host factors: DM type II with peripheral polyneuropathy, lipodermatosclerosis/chronic venous stasis to complicate healing. I answered all the patient's questions. To return to the wound healing center in 1 week or call sooner if the patient has any questions or concerns.
--- NOTE | 2025-05-08 13:44 | WC ---
PHOTO 05/08/25 E LATERAL
--- NOTE | 2025-05-08 13:46 | WC ---
PHOTO 05/08/25 JOSHUA COUCH
== END 2025-05-12 23:59 | disposition home or self-care (01) ==
LOC: WC 08:00
PROVIDERS: PCP Family Medicine Geriatric Medicine; Referring Provider Family Medicine Geriatric Medicine; Visit Provider Student in an Organized Health Care Education/Training Program
DX: I83.022 Varicose veins of left lower extremity with ulcer of calf (principal); E11.622 Type 2 diabetes mellitus with other skin ulcer; L97.222 Non-pressure chronic ulcer of left calf with fat layer exposed; E11.42 Type 2 diabetes mellitus with diabetic polyneuropathy; R60.0 Localized edema; M79.3 Panniculitis, unspecified
CPT/HCPCS: 11042; 29580; 99213; G0463

== ENCOUNTER 2025-05-15 08:13 | Outpatient (RCR) | payer MEDICARE, SELFPAY ==
[2025-05-15 08:02] VITALS: BP 106/50; PULSE 70; RESP 16; TEMP 35.9
--- NOTE | 2025-05-15 09:16 | PN.PCM_ITS ---
History of Present Illness Date of Service: 05/15/25 Chief Complaint: Venous stasis ulceration left lower extremity History of Wound: This is a 74-year-old male who presents to the wound care center for continued aid in healing of a venous stasis ulceration to the lateral aspect of the left lower extremity. Ulceration is secondary to chronic venous insufficiency and lower extremity edema. He had been unable to wear his compression stockings due to significant edema and previous heart failure. 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 This did lead to improvement in lower extremity edema however still does get swelling secondary to his chronic venous insufficiency which did lead to ulceration to the lateral aspect of the left leg. He had been undergoing local wound care in office over the course of 6 weeks with applications of Renuka however ulceration has failed to improve with this and compression stocking. He continues to change dressing daily with Renuka and does have visiting nursing to assist in dressing changes. States that he continues to wear his compression stocking and tries to elevate when possible. He does assist in care for his so elevation at all times of rest poses difficulty. Denies trauma to the leg. Denies N/V/F/chills/SOB. Denies further complaints. Subjective Subjective This is a 74-year-old male who presents to the wound care center for continued care of bilateral lower extremity venous stasis ulcerations. He continues his 80 mg furosemide daily and notices that this continues to control edema body wide. He is attempting to continue to elevate legs is much as possible. Reports remains in extended care at [place] where she still continues to fight. He continues to visit her daily. Accompanied by son today who notes wounds have healed. He has transitioned back to compression stockings and is doing well. He denies constitutional symptoms. Denies further complaints today. Objective Data Objective Data Vital Signs: Vital Signs Temp Pulse Resp BP O2 Del Method 96.7 F L 70 16 106/50 L Room Air 05/15/25 08:02 05/15/25 08:02 05/15/25 08:02 05/15/25 08:02 05/15/25 08:02 Oxygen Delivery Method Room Air Physical Exam Const alert, oriented x3 and no apparent distress General Appearance: cooperative HEENT normocephalic Eyes General Eye: normal appearance of both eyes Neck General: normal visual inspection Lymph Lymphatic: no lymphadenopathy noted and no lymphedema noted Resp normal respiratory effort Cardio regular rate and regular rhythm Extremity no calf tenderness Extremity Narrative: Bilateral lower extremity: Vascular: DP and PT pulses weakly palpable. CFT is less than 5 seconds to digits. Normal temperature gradient. Hair growth is absent to digits. Neurologic: Gross sensation intact. There is decreased protective sensation consistent with diabetic peripheral polyneuropathy. Musculoskeletal: Muscle strength 5 of 5 age-appropriate. There is decreased r pooja of motion of the ankle joint dorsiflexion with the knee extended without pain or crepitus bilateral. There is decreased range of motion of the first metatarsophalangeal joint without pain or crepitus bilateral. No pain to palpation of calf bilateral. Dermatologic: Bilateral lower extremities demonstrate lipodermatosclerosis with hyperpigmentation to the pretibial region. Previous scaling/eczematous skin improved following compression of Unna boot therapy. Full-thickness ulceration to the right lower extremity remains healed. There were 2 full-thickness ulcerations to the left lower extremity 1 medial and 1 lateral. Medial ulceration remains healed. Lateral ulceration now healed. No signs of infection. Skin no rashes or lesions noted General Skin Exam: venous stasis and dermatitis Neuro moves all extremities Debridement Note Debridement Note No debridement was completed: No debridement was completed today Post-Debridement Measurements and Additional Note: Post-Debridement Measurements/Treatment - Nurse 1 - General Ulcer Assessment Start: 05/15/25 08:02 Freq: Status: Active Protocol: .LOWEXT Activity Type Activity Date Activity User E-sign Co-sign Detail Recorded Client Recorded Date Recorded By Document 05/15/25 08:02 KW [id number] 05/15/25 08:06 05/15/25 08:02 - Today's Visit Information Type of service Follow-up Visit (Physician/LICENSED PHYSICAL THERAPY ASSISTANT ) Arrival Mode Ambulatory, Walker Accompanied by son Patient Identification Verified (Name & Yes ) Vital Signs Temperature (97.8 F-99.1 F) 96.7 F L Temperature Source Temporal Pulse Rate (60-100) 70 Pulse Location Monitor Respiratory Rate (12-18) 16 Respiratory rate source Observation Oxygen Delivery Method Room Air Blood Pressure (90/60-120/80) 106/50 L Blood Pressure Mean (mm Hg) 68 Source Monitor Position Semi-Fowlers Blood Pressure Location Right Arm History Since Last Visit- (Skip if this is Patient's initial visit) Have you changed medications since your No last visit? Any new allergies or adverse reactions No Had a fall/change in ADL's that may No increase risk of falls Signs or symptoms of abuse and/or No neglect since last visit Have you been in the hospital since your No last visit? Has dressing in place as prescribed No Has compression in place as prescribed Yes Has offloadiing in place as prescribed N/A Experienced any changes in pain level or No management Left Footwear Regular Shoe Right Footwear Regular Shoe Pain Scale: 0-10 Numeric Is Patient Pain Free? Yes WC - Nurse 1 - General Ulcer Measurement Start: 05/15/25 08:02 Freq: Status: Active Protocol: Activity Type Activity Date Activity User E-sign Co-sign Detail Recorded Client Recorded Date Recorded By Document 05/15/25 08:02 [id number] 05/15/25 08:06 05/15/25 08:02 Wound Center Nurse 1 #3 LLE Lat Cluster -Current Size (cm) - Length 0 -Current Size (cm) - Width 0 -Current Size (cm) - Depth 0 -Total Square Cm 0 -Date of Last Picture (Recall this 05/15/25 field) -Exudate Amt None Present -Texture (Lyndsey-wound Skin Appearance) Assessed -Moisture (Lyndsey-wound Skin Appearance) Assessed,Dry/ Scaly -Color (Lyndsey-wound Skin Appearance) Assessed -Temperature (Lyndsey-wound Skin No Abnormality Appearance) (Pt Warm) -Tenderness on Palpation (Lyndsey-wound No Skin Appearance) -Ulcer Cleansing Soap and Water -Foul Odor after Cleansing No WC - Nurse 2 - General Ulcer CM Notes Start: 05/15/25 08:02 Freq: Status: Active Protocol: Activity Type Activity Date Activity User E-sign Co-sign Detail Recorded Client Recorded Date Recorded By Document 05/15/25 08:43 [facility] [id number] 05/15/25 08:49 [facility] 05/15/25 08:43 Wound Center Nurse 2 -Time 08:43 -Procedure Performed No -Post Debridement (cm) - Length 0 -Post Debridement (cm) - Width 0 -Post Debridement (cm) - Depth 0 -Total Square (Post) (cm) 0 -Area of Debridement (cm) - Length 0 -Area of Debridement (cm) - Width 0 -Total Square (Area) (cm) 0 -Tunneling No -Undermining/Tunneling No -Circular Undermining No -Wound/Ulcer Outcome Healed- Epithelialized -Bleeding Controlled with NA Pain Scale: 0-10 Numeric Is Patient Pain Free? 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 Pain Scale: 0-10 Numeric Is Patient Pain Free? Yes WC - Visit Discharge Discharge Condition Stable Ambulatory Status Ambulatory, Walker Transportation Private Auto Accompanied by SON Notes: HEALED . OPEN TO AIR Assessment/Plan Assessment/Plan (1) Non-pressure chronic ulcer of left calf with fat layer exposed: CODE(S): L97.222 - Non-pressure chronic ulcer of left calf with fat layer exposed (2) Lipodermatosclerosis of both lower extremities: CODE(S): M79.3 - Panniculitis, unspecified (3) Venous insufficiency (chronic) (peripheral): CODE(S): I87.2 - Venous insufficiency (chronic) (peripheral) (4) Diabetes mellitus with diabetic polyneuropathy: CODE(S): E11.42 - Type 2 diabetes mellitus with diabetic polyneuropathy QUALIFIERS: Diabetes mellitus type: type 2 (5) Diabetes mellitus with ulcer of calf: CODE(S): E11.622 - Type 2 diabetes mellitus with other skin ulcer; L97.209 - Non-pressure chronic ulcer of unspecified calf with unspecified severity (6) Bilateral lower extremity edema: CODE(S): R60.0 - Localized edema PLAN: Plan Patient seen and evaluated Predebridement ulceration measurement: Right lower extremity healed Left medial lower extremity healed Left lateral lower extremity healed Ulceration did not undergo debridement as noted in the clinical panel above. Postdebridement measurement: Left medial lower extremity healed; left lateral lower extremity healed today. Compression stocking to bilateral lower extremity. All ulcerations have healed today. It has been discussed with the patient that he is to continue to sleep on flat mattress at night with leg elevation as much as possible at night and throughout the day to be heart level or higher. He has been advised against prolonged sitting. 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 He has finished prescription. He has been advised to not pick at any dry skin or excessively scrub while in the shower to prevent opening of ulcerations as his skin is friable. Skin has improved via use of Unna boot compression but with wound now healed we will continue traditional compression stocking. The following work up and care recommendations were made: Dressing: Compression stocking bilateral lower extremity Wash: Soap and water Tissue growth optimization: None Offload: Compression stocking Vascular: Vascular status not impeding healing, chronic venous stasis and lipodermatosclerosis do complicate healing. Edema: Compression stocking and elevation of lower extremities at all times of rest. Infection: No signs of infection currently. Will finish oral linezolid and continue with intranasal mupirocin. Pain: May take [id number] Tylenol Extra Strength for any discomfort. Currently no pain secondary to diabetic peripheral polyneuropathy Host factors: DM type II with peripheral polyneuropathy, lipodermatosclerosis/chronic venous stasis to complicate healing. With all wounds healed today he is being discharged from the wound care center I answered all the patient's questions. To return to the wound healing center as needed or call sooner if the patient has any questions or concerns.
--- NOTE | 2025-05-19 08:42 | WC ---
PHOTO 05/19/25 JOSHUA SALDANA
== END 2025-05-27 08:56 | disposition home or self-care (01) ==
LOC: WC 08:13
PROVIDERS: PCP Family Medicine Geriatric Medicine; Referring Provider Family Medicine Geriatric Medicine; Visit Provider Student in an Organized Health Care Education/Training Program
DX: Z09 Encounter for follow-up examination after completed treatment for conditions other than malignant neoplasm (principal); E11.42 Type 2 diabetes mellitus with diabetic polyneuropathy; R60.0 Localized edema; I87.2 Venous insufficiency (chronic) (peripheral)
CPT/HCPCS: 99213; G0463

== ENCOUNTER 2025-05-15 09:06 | Outpatient (RCR) | payer MEDICARE, SELFPAY ==
[2025-05-15 10:36] LABS: Prothrombin Time (Protime)PT. 20.3 SECONDS (11.7-14.9)
== END 2025-06-12 21:07 | disposition home or self-care (01) ==
LOC: LAB 09:06
PROVIDERS: PCP Family Medicine Geriatric Medicine; Referring Provider Internal Medicine Cardiovascular Disease; Visit Provider Internal Medicine Cardiovascular Disease
DX: Z79.01 Long term (current) use of 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s (principal)
CPT/HCPCS: 36415; 85610

== ENCOUNTER → 2025-05-27 | Outpatient (CLI) | payer MEDICARE, SELFPAY ==
--- NOTE | 2025-05-27 15:45 | RAD_ITS ---
EXAM: XR Lumbosacral Spine, 2 or 3 Views CLINICAL INDICATION: SPONDYLOSIS WITHOUT MYELOPATHY OR RADICULOPATHY, LUMBOSACRAL PEGGY TECHNIQUE: Frontal and lateral views of the lumbar spine and sacrum. COMPARISON: No relevant prior studies available. FINDINGS: VERTEBRAE: Moderate endplate degenerative changes and disc degeneration and visualized spine. Moderate facet arthropathy of L3-S1. Moderate to severe anterior wedging deformity of T12 and T11 vertebral bodies. Grade 1 anterior spondylolisthesis of L5 over S1. Further evaluation MRI is recommended. SACRUM/COCCYX: Unremarkable as visualized. No acute fracture. DISC SPACES: No acute findings. No significant narrowing. SOFT TISSUES: Unremarkable. VASCULATURE: Scattered calcified atherosclerotic disease of aorta. RAD/Lumbar Spine 2 or 3 Views IMPRESSION: 1. Grade 1 anterior spondylolisthesis of L5 over S1. Further evaluation MRI i s recommended. 2. Degenerative changes as above. Reading Location[facility]
--- NOTE | 2025-05-27 15:45 | RAD_ITS ---
EXAM: XR Lumbosacral Spine, 2 or 3 Views CLINICAL INDICATION: SPONDYLOSIS WITHOUT MYELOPATHY OR RADICULOPATHY, LUMBOSACRAL PEGGY TECHNIQUE: Frontal and lateral views of the lumbar spine and sacrum. COMPARISON: No relevant prior studies available. FINDINGS: VERTEBRAE: Moderate endplate degenerative changes and disc degeneration and visualized spine. Moderate facet arthropathy of L3-S1. Moderate to severe anterior wedging deformity of T12 and T11 vertebral bodies. Grade 1 anterior spondylolisthesis of L5 over S1. Further evaluation MRI is recommended. SACRUM/COCCYX: Unremarkable as visualized. No acute fracture. DISC SPACES: No acute findings. No significant narrowing. SOFT TISSUES: Unremarkable. VASCULATURE: Scattered calcified atherosclerotic disease of aorta. RAD/Lumbar Spine 2 or 3 Views IMPRESSION: 1. Grade 1 anterior spondylolisthesis of L5 over S1. Further evaluation MRI i s recommended. 2. Degenerative changes as above. Reading Location[facility]
== END | disposition home or self-care (01) ==
LOC: RAD 15:38
PROVIDERS: PCP Family Medicine Geriatric Medicine; Referring Provider Anesthesiology Pain Medicine; Visit Provider Anesthesiology Pain Medicine
DX: M47.817 Spondylosis without myelopathy or radiculopathy, lumbosacral region (principal)
CPT/HCPCS: 72100

== ENCOUNTER → 2025-07-01 | Outpatient (CLI) | payer MEDICARE, SELFPAY ==
[2025-07-01 17:55] LABS: Prothrombin Time (Protime)PT. 29.1 SECONDS (11.7-14.9)
[2025-07-01 19:58] LABS: Barbiturate Urine NEGATIVE (< 200 ng/mL); Benzodiazepine Urine NEGATIVE (< 200 ng/mL); PCP Urine NEGATIVE (< 25 ng/mL); THC Urine NEGATIVE (< 50 ng/mL)
== END | disposition home or self-care (01) ==
PROVIDERS: PCP Family Medicine Geriatric Medicine; Referring Provider Internal Medicine Cardiovascular Disease; Visit Provider Internal Medicine Cardiovascular Disease
DX: F11.20 Opioid dependence, uncomplicated (principal); Z79.01 Long term (current) use of 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s
CPT/HCPCS: 80307; 85610

== ENCOUNTER → 2025-07-22 | Outpatient (CLI) | payer MEDICARE, SELFPAY ==
--- NOTE | 2025-07-22 16:52 | MRI_ITS ---
PROCEDURE: SPINE LUMBAR (ROUTINE) 07/22/2025 REASON FOR EXAM: RADICULOPATHY, LUMBAR REGION Pain TECHNIQUE: Procedure Code: MRISPL Modality: MR Procedure: SPINE LUMBAR (ROUTINE) COMPARISON: MRI of the thoracic spine dated August 18, 2022. CT of the lumbar spine dated May 27, 2025. FINDINGS: Vertebrae: Vertebral plan at T11. There has been progression of the compression fracture when compared to previous examination. Edema of the vertebral body present consistent with an active fracture. Bone marrow edema secondary to compression fracture of the superior endplate of L4 with associated Schmorl's node. No retropulsed fragment. Edema of the superior endplate of L3. Although there is degenerative disc disease at this level, there is concern for underlying compression fracture superior endplate of L3. Alignment: Lumbar lordosis preserved. Grade 1 anterolisthesis of L5 on S1, chronic and related to bilateral pars defects. No significant scoliosis. Kyphosis centered at T11. Conus Medullaris: Conus medullaris ends normally at T12-L1. The distal spinal cord appears normal. T10-T11: Mild degenerative disc disease. No central stenosis. T11-T12: Diffuse disc bulge. No foraminal stenosis. Mild central stenosis. T12-L1: Diffuse disc desiccation and disc bulge. No central stenosis. L1-2: Diffuse disc desiccation. Mild facet arthropathy. No central or foraminal stenosis. L2-3: Diffuse disc desiccation and loss of disc space height. Facet arthropathy. Ligamentum flavum hypertrophy. Bilateral foraminal encroachment. Mild central stenosis. L3-4: Diffuse disc bulge. Severe facet arthropathy and ligamentum flavum hypertrophy accounting for moderate central stenosis. Bilateral foraminal encroachment with mass effect upon both exiting nerve roots. L4-5: Mild diffuse disc bulge and disc desiccation. Facet arthropathy. No central or foraminal stenosis. L5-S1: Severe degenerative disc disease with bilateral foraminal stenosis Sacrum: No acute process. Paravertebral No retroperitoneal lymphadenopathy or aneurysm. MRI/Spine Lumbar (Routine) IMPRESSION: Acute compression fracture deformities of L4 and superior endplate of L3 with v ertebral body loss at L4. Vertebral plana at T11 with persistent edema likely reflective of an active fra cture. Multilevel degenerative disc disease and spondylosis with moderate central sten osis at L3-4 secondary to disc bulge and facet disease. Kyphosis at T11 from vertebral plana. Grade 1 anterolisthesis of L5 on S1 related to bilateral pars defects, chronic. There is severe bilateral foraminal stenosis with mass effect on exiting nerve roots. Reading Location: [id number]
--- OUTSIDE RECORDS SUMMARY | 2025-07-22 22:53 | XMS RPT_ITS | CCD ---
Author Organization [facility] Care Team Providers Care Distribution Field Technician Name Role Phone Matilde Ross (Retired) Primary Care Provider [place], [place] Primary Care Provider Dr. Holger Ornelas Emergency Provider Dr. Aj Randolph Admit Provider Dr. Aj Randolph Attending Provider Dr. Aj Randolph Other Provider Dr. Osbaldo Laird Attending Provider Dr. Angela Welch Attending Provider Dr. Angela Welch Other Provider Dr. Angel Musa Other Provider [facility] Primary Care Provider [place] Primary Care Provider Dr. Noman Amaya Emergency Provider Dr. Aj Randolph Admit Provider Dr. Aj Randolph Attending Provider Dr. Aj Randolph Other Provider Dr. Osiris Yip Attending Provider Dr. Bharat Wilkins Attending Provider Dr. Bharat Wilkins Other Provider Dr. Osiris Yip Other Provider Dr. Brady Kemp Other Provider Dr. Brady Kemp Attending Provider Dr. Karen Sinha Admit Provider Dr. Karen Sinha Other Provider Dr. Angela Welch Attending Provider Dr. Angela Welch Other Provider Dr. Edvin Currie Other Provider [phone] Dr. Shady Obrien Other Provider Dr. Shady Obrien Attending Provider [phone] Dr. Osbaldo Laird Attending Provider Dr. Angela Welch Referring Provider Dr. Shady Obrien Referring Provider [phone] Unavailable Primary Care Provider Unavailbriana Sutton MD, Freedom-Chi Primary Care Provider TRI NEWBERRY Attending Unavailable HERMAN, FREEDOM-CHI Primary Care Unavailable REBECA GROSSMAN Attending Unavailable HERMAN, FREEDOM-CHI Primary Care Unavailable TRI NEWBERRY Attending Unavailable TRI NEWBERRY Referring Unavailable HERMAN, FREEDOM-CHI Primary Care Unavailable JERO REYES Attending Unavailable HERMAN, FREEDOM-CHI Primary Care Unavailable NEWBERRYTRI Attending Unavailable TRI NEWBERRY Referring Unavailable HERMAN, FREEDOM-CHI Primary Care Unavailable OSCAR BOWER Attending Unavailable OSCAR BOWER Referring Unavailable HERMAN, FREEDOM-CHI Primary Care Unavailable JERO REYES Admitting Unavailable JERO REYES Attending Unavailable HERMAN, FREEDOM-CHI Primary Care Unavailable TRI NEWBERRY Attending Unavailable HERMAN, FREEDOM-CHI Primary Care Unavailable Herman GRIMALDO, Dr. Freedom William Primary Care Provider Dr. Shady Obrien MD Attending Provider Dr. Shady Obrien MD Referring Provider Dimple GRIMALDO, Dr. Ortiz Other Provider Herman GRIMALDO, Dr. Freedom William Attending Provider Alin VERA, Dr. Caruso Attending Provider Alin VERA, Dr. Caruso Referring Provider Herman GRIMALDO, Dr. Freedom William Primary Care Provider Dr. Shady Obrien MD Attending Provider Dr. Shady Obrien MD Referring Provider Dimple GRIMALDO, Dr. Ortiz Other Provider [phone] Herman GRIMALDO, Dr. Freedom William Referring Provider [phone] Louie HAWKINS-CKailyn Attending Provider [phone] Herman GRIMALDO, Dr. Freedom William Primary Care Provider [phone] Alin ROMEROM, Dr. Caruso Attending Provider Alin VERA, Dr. Caruso Referring Provider Herman GRIMALDO, Dr. Freedom William Attending Provider [phone] Herman GRIMALDO, Dr. Freedom William Other Provider Jack GRIMALDO, Dr. Kirby Tan Attending Provider Herman GRIMALDO, Dr. Freedom William Primary Care Provider [phone] Micah GRIMALDO, Dr. Caruso Attending Provider Micah GRIMALDO, Dr. Caruso Referring Provider Dimple GRIMALDO, Dr. Ortiz Other Provider [phone] Alin VERA, Dr. Caruso Attending Provider [phone] Dimple GRIMALDO, Dr. Ortiz Attending Provider Dimple GRIMALDO, Dr. Ortiz Referring Provider Herman GRIMALDO, Dr. Freedom William Primary Care Provider [phone] Micah GRIMALDO, Dr. Caruso Attending Provider Micah GRIMALDO, Dr. Caruso Referring Provider Dimple GRIMALDO, Dr. Ortiz Other Provider Herman GRIMALDO, Dr. Freedom William Primary Care Provider [phone] Micah GRIMALDO, Dr. Caruso Attending Provider Micah GRIMALDO, Dr. Caruso Referring Provider Dimple GRIMALDO, Dr. Ortiz Other Provider [phone] Shady Obrien Referring Unavailable Herman, Freedom Chi Primary Care Unavailable Shady Obrien Attending Unavailable Angel Musa Consulting Unavailable TRI NEWBERRY Referring Unavailable Shady Obrien Attending Unavailable Herman, Freedom Chi Primary Care Unavailable Herman, Freedom Chi Referring Unavailable Herman, Freedom Chi Attending Unavailable Herman, Freedom Chi Primary Care Unavailable Shady Ogden Attending Unavailable Shady Ogden Referring Unavailable Herman, Freedom Chi Primary Care Unavailable Herman, Freedom Chi Attending Unavailable Herman, Freedom Chi Primary Care Unavailable Herman, Freedom Chi Referring Unavailable Herman, Freedom Chi Primary Care Unavailable Herman, Freedom Chi Attending Unavailable Shady Ogden Attending Unavailable Herman, Freedom Chi Referring Unavailable Herman, Freedom Chi Primary Care Unavailable Shady Obrien Referring Unavailable Herman, Freedom Chi Primary Care Unavailable Shady Obrien Attending Unavailable Basali, Angel Consulting Unavailable Shady Obrien Referring Unavailable Shady Obrien Attending Unavailable Herman, Freedom Chi Primary Care Unavailable Herman, Freedom Chi Attending Unavailable Herman, Freedom Chi Primary Care Unavailable Shady Ogden Attending Unavailable Shady Ogden Referring Unavailable Herman, Freedom Chi Primary Care Unavailable Herman, Freedom Chi Primary Care Unavailable Shady Obrien Referring Unavailable Shady Obrien Attending Unavailable BasaliAngel Consulting Unavailable Herman, Freedom Chi Attending Unavailable Herman, Freedom Chi Primary Care Unavailable Herman, Freedom Chi Primary Care Unavailable Angel Musa Attending Unavailable Basali, Natashaman Referring Unavailable Shady Obrien Referring Unavailable Herman, Freedom Chi Primary Care Unavailable Shady Obrien Attending Unavailable Herman, Freedom Chi Primary Care Unavailable Shady Obrien Referring Unavailable Shady Obrien Attending Unavailable BasaliAngel Consulting Unavailable Herman, Freedom Chi Attending Unavailable Herman, Freedom Chi Primary Care Unavailable Shady Obrien Referring Unavailable Shady Obrien Attending Unavailable Herman, Freedom Chi Primary Care Unavailable Shady Obrien Referring Unavailable Herman, Freedom Chi Primary Care Unavailable Shady Obrien Attending Unavailable Herman, Freedom Chi Primary Care Unavailable Shady Obrien Attending Unavailable Shady Obrien Referring Unavailable BasalAngel kline Consulting Unavailable Herman, Freedom Chi Primary Care Unavailable Angel Musa Attending Unavailable Basali, Ayman Referring Unavailable Herman, Freedom Chi Attending Unavailable Herman, Freedom Chi Primary Care Unavailable Shady Obrien Referring Unavailable Herman, Freedom Chi Primary Care Unavailable Shady Obrien Attending Unavailable BasaliAngel Consulting Unavailable Osbaldo Laird Attending Unavailable Herman, Freedom Chi Primary Care Unavailable Herman, Freedom Chi Attending Unavailable Herman, Freedom Chi Primary Care Unavailable Herman, Freedom Chi Referring Unavailable Herman, Freedom Chi Primary Care Unavailable Kailyn Palma NP Attending Unavailable Herman, Freedom Chi Referring Unavailable Shady Obrien Attending Unavailable Herman, Freedom Chi Primary Care Unavailable Shady Ogden Attending Unavailable Herman, Freedom Chi Referring Unavailable Herman, Freedom Chi Primary Care Unavailable Shady Ogden Attending Unavailable Freedom Sutton Chi Referring Unavailable Freedom Sutton Chi Primary Care Unavailable Shady Obrien Attending Unavailable Freedom Sutton Chi Primary Care Unavailable Shady Obrien Referring Unavailable Angel Musa Consulting Unavailable Allergies Allergy Classification Reported Allergen(s) Allergy Type Date of Onset Reaction(s) Facility (20 sources) pramoxine Drug Allergy 05-19-2015 Rash [facility] (1 source) pramoxine Drug Allergy 03-27-2025 [facility] Repository Medications Current Medications Medication Drug Class(es) Dates Sig (Normalized) Sig (Original) diclofenac sodium 0.01 mg/mg topical gel (15 sources) Nonsteroidal Anti-inflammatory Drug Diclofenac Sodium (Arthritis Pain Reliever) 1 % gel Apply 2 g topically 2 times daily. Active doxepin hydrochloride 10 mg oral capsule (7 sources) Tricyclic Antidepressant Start: 03-27-2025 take 1 capsule by mouth once daily at bedtime Doxepin 10 mg capsule Active 10 mg PO DAILY March 27, 2025 12:00am At for 90 days ferrous sulfate 325 mg oral tablet (20 sources) Start: 03-25-2024 End: 07-09-2024 take 1 tablet by mouth once daily Ferrous Sulfate (Ferosul) 325 mg (65 mg iron) tablet Active 325 mg PO daily March 25, 2024 12:00am furosemide 80 mg oral tablet (20 sources) Loop Diuretic Start: 03-17-2025 take 1 tablet by mouth once daily Furosemide 80 mg tablet Active 80 mg PO daily March 17, 2025 4:03pm Start: 12-19-2024 End: 03-17-2025 take 1 tablet by mouth twice daily Furosemide 80 mg tablet Discontinued 80 mg PO TWICE A DAY December 19, 2024 1:00am March 17, 2025 4:03pm Start: 08-26-2024 End: 12-19-2024 take 1 mg by mouth once daily Furosemide 40 mg tablet Discontinued mg PO daily August 26, 2024 12:00am December 19, 2024 9:36am Start: 07-09-2024 End: 07-09-2024 take 40 mg by mouth once daily 40 mg, Oral, Daily, Fir st dose on Mon07/09/24 at 0900 Start: 05-20-2024 End: 08-26-2024 take 1 tablet by mouth twice daily Furosemide (Lasix) 80 mg tablet Discontinued 80 mg PO TWICE A DAY May 20, 2024 12:00am August 26, 2024 10:47am On Hold: MD Rivera Start: 02-16-2024 End: 05-20-2024 take 1 tablet by mouth once daily Furosemide 40 mg tablet Discontinued 40 mg PO DAILY March 25, 2024 12:00am May 20, 2024 11:39am Start: 09-08-2022 End: 02-16-2024 take 1 tablet by mouth once daily as needed Furosemide (Lasix) 20 mg Tablet Discontinued 20 mg PO DAILY September 08, 2022 12:01pm February 16, 2024 10:42am Take as needed for lower extremity swelling Start: 2022 End: 09-08-2022 take 1 tablet by mouth every other day Furosemide (Lasix) 20 mg Tablet Discontinued 20 mg PO DAILY 2022 12:00am September 08, 2022 12:01pm take 20 mg po every other day furosemide (Lasi x) 80 MG tablet Take 40 mg by mouth daily. Active take 1 tablet by vivi th in the morning furosemide (Lasix) 80 MG tablet Take 80 mg by mouth in the morning and 80 mg in the evening. Active linezolid 600 mg oral tablet (20 sources) Oxazolidinone Antibacterial Start: 03-27-2025 Linezolid 600 mg tablet Active 600 mg PO Q12 March 27, 2025 12:00am Start: 02-22-2024 End: 03-06-2024 take 1 tablet by mouth every twelve hours Linezolid 600 mg tablet Discontinued 600 mg PO Q12H 24 12 0 February 22, 2024 12:00am March 06, 2024 6:53pm Antibiotic mupirocin 0.02 mg/mg topical ointment (7 sources) RNA Synthetase Inhibitor Antibacterial Start: 03-27-2025 Mupirocin 2 % ointment Active 1 NMA TOPICAL TWICE A DAY March 27, 2025 12:00am Tiotropium-Olodatero l (20 sources) Anticholinergic, beta2-Adrenergic Agonist Start: 02-08-2024 Tiotropium-Olod aterol (Stiolto Respimat) 2.5-2.5 mcg/actuation mist Active 1 NMA INHALATION TWICE A DAY February 08, 2024 12:00am breathing Start: 02-08-2024 Tiotropium-Olo daterol (Stiolto Respimat) 2.5-2.5 mcg/actuation mist Active 1 NMA INHALATION TWICE A DAY February 08, 2024 12:00am Start: 02-08-2024 Tiotropium-Olo daterol (Stiolto Respimat) 2.5-2.5 mcg/actuation mist Active 1 PUFF INHALATION TWICE A DAY February 08, 2024 12:00am tiotropium-oloda terol (Stiolto Respimat) 2.5-2.5 MCG/ACT aerosol solution inhaler Inhale 2 Inhalations in the morning and 2 Inhalations in the evening. Active simvastatin 10 mg oral tablet (20 sources) HMG-CoA Reductase Inhibitor Start: 2022 take 1 tablet by mouth at bedtime Simvastatin 10 mg Tablet Active 10 mg PO AT BEDTIME 2022 12:00am cholesterol terazosin 2 mg oral capsule (20 sources) alpha-Adrenergic Bentley Start: 2022 take 1 capsule by mouth at bedtime Terazosin 2 mg Capsule Active 2 mg PO AT BEDTIME 2022 12:00am prostate Completed/Discontinued Medications Medication Drug Class(es) Dates Sig (Normalized) Sig (Original) acetaminophen 500 mg oral tablet (20 sources) Start: 07-08-2024 End: 07-09-2024 take 1 tablet by mouth every eight hours as needed for pain Start: 03-06-2024 take 2 tablets by mo uth every eight hours Acetaminophen 500 mg Tablet Active 1000 mg PO EVERY 8 HOURS 0 0 March 06, 2024 12:00am Start: 03-06-2024 take 1000 mg by mout h every eight hours Acetaminophen Active 1000 MG PO EVERY 8 HOURS 0 March 06, 2024 12:00am Start: 09-08-2022 End: 03-06-2024 take 2 tablets by mouth three times daily Acetaminophen 500 mg Tablet Discontinued 1000 mg PO EVERY 8 HOURS 180 30 0 February 16, 2024 11:00am March 06, 2024 6:52pm pain Do not exceed 1000 mg 3 times a day Start: 09-08-2022 End: 03-06-2024 take 1000 mg by mouth three times daily Acetaminophen Discontinued 1000 MG PO EVERY 8 HOURS 180 30 February 16, 2024 11:00am March 06, 2024 6:52pm Do not exceed 1000 mg 3 times a day acetaminophen 325 mg / oxyCODONE hydrochloride 10 mg oral tablet (11 sources) Opioid Agonist Start: 07-13-2023 End: 07-08-2024 take 2 tablets by mouth every six hours as needed for pain oxyCODONE-acetaminophen (Percocet) 10-325 MG tablet Take 2 tablets by mouth every 6 hours as needed for severe pain (7-10). 07/13/2023 07/08/2024 Discontinued (Med list cleanup) acyclovir 800 mg oral tablet (15 sources) Herpesvirus Nucleoside Analog DNA Polymerase Inhibitor, Herpes Simplex Virus Nucleoside Analog DNA Polymerase Inhibitor, Herpes Zoster Virus Nucleoside Analog DNA Polymerase Inhibitor Start: 02-16-2024 End: 02-22-2024 take 1 tablet by mouth four times daily Acyclovir 800 mg Tablet Discontinued 800 mg PO 4 TIMES DAILY 20 5 0 February 16, 2024 12:00am February 22, 2024 9:50am [id number] 200 actuat albuterol 0.09 mg/actuat metered dose inhaler (20 sources) beta2-Adrenergi c Agonist Start: 07-08-2024 End: 07-09-2024 Start: 02-08-2024 Albuterol Sulf ate 90 mcg/actuation HFA aerosol inhaler Active 1 NMA INHALATION Q4H as needed for SOB February 08, 2024 12:00am Start: 02-08-2024 take 1 puff(s) by in halation every four hours Albuterol Sulfate Active 1 PUFF INHALATION Q4H February 08, 2024 12:00am take 2 puff(s) by in halation every six hours as needed for wheezing albuterol 108 (90 Base) MCG/ACT inhaler Inhale 2 puffs every 6 hours as needed for wheezing. Active ALPRAZolam 0.25 mg disintegrating oral tablet (2 sources) Benzodiazepine Start: 07-08-2024 End: 07-08-2024 take 0.25 mg by mouth once as needed for anxiety 0.25 mg, Oral, Once PRN, anxiety, Starting on Mon07/08/24 at 1049, For 1 dose, Preprocedure, Please do not administer prior to obtaining consent and/or history and physical. Drzpj-Cemh-Ecmug-Maximus ag-Mv-Min (Cristhian (With Collagen)) 7-7-1.5 gram Powder In Packet (12 sources) Start: 03-06-2024 End: 03-25-2024 Wcasi-Pozp-Riose-Co llag-Mv-Min (Cristhian (With Collagen)) 7-7-1.5 gram Powder In Packet Discontinued 1 NMA PO TWICE DAILY WITH MEALS 60 30 0 March 06, 2024 12:00am March 25, 2024 10:07am Start: 03-06-2024 End: 03-25-2024 Vltyr-Pjjl-Obuvw-Collag-Mv-M in (Cristhian (With Collagen)) 7-7-1.5 gram Powder In Packet Discontinued 1 NMA PO TWICE DAILY WITH MEALS 60 30 March 06, 2024 12:00am March 25, 2024 10:07am Start: 03-06-2024 Gasyn-Bwwc-Usa ir-Fapyup-Gl-Min (Cristhian (With Collagen)) 7-7-1.5 gram Powder In Packet Active 1 PACKET PO TWICE DAILY WITH MEALS 60 March 06, 2024 12:00am Arthritis Pain Compound (12 sources) Start: 03-06-2024 End: 05-20-2024 Arthritis Pain Compound Disc ontinued 0 NMA TOPICAL TWICE A DAY 120 March 06, 2024 12:00am May 20, 2024 11:38am Start: 03-06-2024 Arthritis Pain Compound Active 0 APPLIC TOPICAL TWICE A DAY 120 March 06, 2024 12:00am aspirin 81 mg delayed release oral tablet (2 sources) Platelet Aggregation Inhibitor, Nonsteroidal Anti-inflammatory Drug Start: 07-08-2024 End: 07-09-2024 take 81 mg by mouth once daily 81 mg, Oral, Daily, First dose on Mon07/08/24 at 1515, Do not crush, chew, or split. atorvastatin 10 mg oral tablet (2 sources) HMG-CoA Reductase Inhibitor Start: 07-08-2024 End: 07-09-2024 10 mg, Oral, Nightly, First dose on Mon07/08/24 at 2100, Substituted for simvastatin (Zocor). busPIRone hydrochloride 5 mg oral tablet (18 sources) Start: 09-08-2022 End: 02-08-2024 take 2 tablets by mouth twice daily Buspirone 5 mg Tablet Discontinued 10 mg PO TWICE A DAY 120 0 September 08, 2022 12:00am February 08, 2024 5:07am Start: 09-08-2022 End: 02-08-2024 take 10 mg by mouth twice daily Buspirone Discontinued 10 MG PO TWICE A DAY 120 September 08, 2022 12:00am February 08, 2024 5:07am docusate sodium 50 mg / bertha osides, group home 8.6 mg oral tablet (20 sources) Start: 07-08-2024 End: 07-09-2024 Start: 03-06-2024 Sennosides-Doc usate Sodium (Stool Softener-Stimulant Laxat) 8.6-50 mg Tablet Active 2 {tbl} PO TWICE A DAY 120 30 0 March 06, 2024 12:00am doxazosin 2 mg oral tablet (2 sources) alpha-Adrenergic Bentley Start: 07-08-2024 End: 07-09-2024 2 mg, Oral, Daily, First dose on Mon07/08/24 at 1515, Substituted for Terazosin (HYTRIN). 120 actuat formoterol fumarate 0.0048 mg/actuat / glycopyrrolate 0.009 mg/actuat metered dose inhaler (2 sources) beta2-Adrenergic Agonist Start: 07-08-2024 End: 07-09-2024 take 2 puff(s) by inhalation twice daily 2 puff, Inhalation, 2 times daily, First dose on Mon07/08/24 at 2000 iopamidol (Isovue-370) 76 % injection 100 mL (2 sources) Start: 07-02-2024 End: 07-02-2024 take 100 mL intravenously once as needed 100 mL, IntraVENous, IMG once PRN, contrast, Starting on Mon07/02/24 at 1126, For 1 dose lidocaine 0.05 mg/mg medicated patch (18 sources) Antiarrhythmic, Amide Local Anesthetic Start: 09-08-2022 End: 03-27-2025 Lidocaine 5 % Adhesive Patch,Medicated Discontinued 1 NMA TOPICAL DAILY 15 September 08, 2022 12:00am March 27, 2025 3:08pm pain Please contact the information source for Protocol details. lisinopril 10 mg oral tablet (19 sources) Angiotensin Converting Enzyme Inhibitor Start: 2022 End: 02-16-2024 take 1 tablet by mouth at bedtime Lisinopril 10 mg Tablet Discontinued 10 mg PO AT BEDTIME 2022 12:00am February 16, 2024 10:43am blood pressure metoprolol tartrate 25 mg oral tablet (19 sources) beta-Adrenergic Bentley Start: 2022 End: 02-17-2024 take 1 tablet by mouth twice daily Metoprolol Tartrate 25 mg Tablet Discontinued 25 mg PO TWICE A DAY 2022 12:00am February 17, 2024 3:30am blood pressure Mometasone (10 sources) Corticosteroid Start: 2022 End: 02-08-2024 take 1 puff(s) by inhalation twice daily Mometasone Discontinued 1 PUFF INHALATION TWICE A DAY 2022 12:00am February 08, 2024 10:16am Start: 2022 take 1 puff(s) by in halation twice daily Mometasone Active 1 PUFF INHALATION TWICE A DAY September 05, 2022 11:00pm Start: 2022 take 1 puff(s) by in halation twice daily Mometasone Active 1 PUFF INHALATION TWICE A DAY 2022 12:00am Mometasone 200 mcg/actuation Hfa Aerosol Inhaler (9 sources) Start: 2022 End: 02-08-2024 Mometasone 200 mcg/actuation Hfa Aerosol Inhaler Discontinued 1 NMA INHALATION TWICE A DAY 2022 12:00am February 08, 2024 10:16am breathing Start: 2022 End: 02-08-2024 Mometasone 200 mcg/actuation Hfa Aerosol Inhaler Discontinued 1 NMA INHALATION TWICE A DAY 2022 12:00am February 08, 2024 10:16am 1 ml naloxone hydrochloride 0.4 mg/ml injection (2 sources) Opioid Antagonist Start: 07-08-2024 End: 07-09-2024 0.4 mg, IntraVENous, Every 5 min PRN, opioid reversal, respiratory depression, Starting on Mon07/08/24 at 1518, +++ For RR Olodaterol (19 sources) beta2-Adrenergic Agonist Start: 2022 End: 02-08-2024 take 2.5 ug by inhalation once daily Olodaterol 2.5 mcg/actuation Mist Discontinued 2 NMA INHALATION DAILY 2022 12:00am February 08, 2024 10:16am breathing Start: 2022 End: 02-08-2024 take 2.5 ug by inhalation once daily Olodaterol 2.5 mcg/actuation Mist Discontinued 2 NMA INHALATION DAILY 2022 12:00am February 08, 2024 10:16am Start: 2022 End: 02-08-2024 Olodaterol Discontinued 2 IN H INHALATION DAILY 2022 12:00am February 08, 2024 10:16am Start: 2022 Olodaterol Act fabián 2 INH INHALATION DAILY September 05, 2022 11:00pm Start: 2022 Olodaterol Act fabián 2 INH INHALATION DAILY 2022 12:00am oxyCODONE hydrochloride 5 mg oral tablet (20 sources) Opioid Agonist Start: 07-08-2024 End: 07-09-2024 take 1 tablet by mouth every eight hours as needed for pain and pain 10 mg, Oral, Every 8 hours PRN, severe pain (7-10), moderate pain (4-6), Starting on Mon07/08/24 at 1551 Start: 03-25-2024 take 1 tablet by vivi three times daily as needed for pain Oxycodone 10 mg tablet Active 10 mg PO THREE TIMES A DAY as needed for pain 0 March 25, 2024 12:00am Start: 02-17-2024 End: 03-06-2024 take 1 tablet by mouth three times daily Oxycodone 10 mg tablet Discontinued 10 mg PO THREE TIMES A DAY February 17, 2024 12:00am March 06, 2024 6:52pm pain On Hold: Unless needed Start: 02-16-2024 End: 03-25-2024 take 1 tablet by mouth every six hours as needed for pain Oxycodone 5 mg Tablet Discontinued 5 mg PO EVERY 6 HOURS NEEDED as needed for Pain Score 4-10 28 7 0 February 16, 2024 March 25, 2024 10:08am Compression fracture of thoracic vertebra Start: 09-08-2022 End: 02-16-2024 take 2 tablets by mouth every eight hours as needed for pain Oxycodone 5 mg Tablet Discontinued 10 mg PO Q8H as needed for pain 30 7 0 September 08, 2022 February 16, 2024 10:42am Compression fracture of thoracic vertebra Start: 09-08-2022 End: 02-16-2024 take 1 tablet by mouth every eight hours as needed for pain Oxycodone 10 mg tablet Discontinued 10 mg PO Q8H as needed for pain 21 7 0 September 08, 2022 February 16, 2024 10:42am Compression fracture of thoracic vertebra Start: 09-08-2022 End: 02-16-2024 take 10 mg by mouth every eight hours Oxycodone Discontinued 10 MG PO Q8H 30 7 September 08, 2022 February 16, 2024 10:42am End: 05-14-2024 take 1 tablet by mouth every eight hours as needed for pain oxyCODONE (Roxicodone) 5 MG immediate release tablet Take 5 mg by mouth every 8 hours as needed for severe pain (7-10). 05/14/2024 Discontinued (Duplicate order) perflutren protein A microsp here (Optison) 3 mL in sodium chloride (PF) 0.9 % 10 mL IV syringe (2 sources) Start: 07-08-2024 End: 07-09-2024 microencapsulated potassium chloride 10 meq extended release oral tablet (20 sources) Start: 07-09-2024 End: 07-09-2024 20 mEq, Oral, 2 times daily with meals, First dose on Mon07/09/24 at 0800, Best given with food and plenty of water to minimize gastric irritation. Do not crush or chew. Start: 03-06-2024 End: 08-14-2024 take 1 tablet by mouth once daily at mealtime Potassium Chloride 20 mEq Tablet,Er Particles/Crystals Discontinued 20 meq PO DAILY WITH MEALS 30 30 0 March 06, 2024 12:00am August 14, 2024 12:21pm Start: 02-16-2024 End: 02-23-2024 take 1 tablet by mouth once daily Potassium Chloride 20 mEq Tablet,Er Particles/Crystals Discontinued 20 meq PO DAILY 30 30 2 February 16, 2024 12:00am February 23, 2024 12:03pm supplement potassium chlori de CR (Klor-Con M20) 20 MEQ ER tablet Take 20 mEq by mouth 2 times daily. Do not crush or chew. Active sacubitril 49 mg / valsartan 51 mg oral tablet (20 sources) Angiotensin 2 Receptor Bentley Start: 05-20-2024 End: 08-14-2024 Sacubitril-Valsartan (Entresto) 49-51 mg tablet Discontinued 1 {tbl} PO TWICE A DAY May 20, 2024 12:00am August 14, 2024 12:21pm take 24-26 mg by mouth twice blanca ly sacubitril-valsartan (Entresto) 24-26 MG tablet Take 1 tablet by mouth 2 times daily. Active 1000 ml sodium chloride 9 mg/ml injection (2 sources) Start: 07-08-2024 End: 07-08-2024 take 50 mL intravenously every hour 50 mL/hr, IntraVENous, Continuous, Starting on Mon07/08/24 at 1100, Preprocedure, Upon admission to sameday - please start iv if patient does not have iv access. traMADol hydrochloride 50 mg oral tablet (19 sources) Opioid Agonist Start: 2022 End: 09-08-2022 take 1 tablet by mouth twice daily as needed for pain Tramadol 50 mg Tablet Discontinued 50 mg PO TWICE A DAY as needed for Pain 2022 12:00am September 08, 2022 5:03pm warfarin sodium 5 mg oral tablet (20 sources) Vitamin K Antagonist Start: 11-19-2024 End: 05-14-2025 Warfarin 5 mg tablet Discontinued 5 mg PO .COMPLEX 180 3 February 11, 2025 4:16pm May 14, 2025 12:45pm 5 mg orally 1.5 tablets (7.5 mg) Monday through Monday and 5mg (1 tablet) on Sat and Sun, OR DIRECTED; Please contact the information source for Protocol details. Start: 07-09-2024 End: 07-09-2024 warfarin (Coumadin) 1 MG tab let Take 1 tablet (1 mg) by mouth every evening. Patient to take 5 mg total dose daily and then as directed by PCP 07/09/2024 Active Start: 07-08-2024 4 mg, Oral, On ce Warfarin, On Mon07/08/24 at 1700, For 1 dose Start: 03-06-2024 End: 11-19-2024 take 0.5 mg by mouth at dinner Warfarin (Novtoven) 1 m g Tablet Discontinued 0.5 mg PO WITH DINNER 15 30 0 March 06, 2024 12:00am November 19, 2024 12:03pm Please contact the information source for Protocol details. Start: 03-06-2024 End: 11-19-2024 take 1 tablet by mouth at dinner Warfarin (Novtoven) 4 mg Tablet Discontinued 4 mg PO WITH DINNER 30 30 0 March 06, 2024 12:00am November 19, 2024 12:03pm Please contact the information source for Protocol details. Start: 2022 End: 03-06-2024 take 1 tablet by mouth once daily Warfarin 5 mg Tablet Discontinued 5 mg PO DAILY 2022 12:00am March 06, 2024 6:52pm blood thinner Problems Active Problems Problem Classification Problem Date Documented Da te Episodic/Chronic Bacterial infection; unspecified site (20 sources) Bacteremia due to Staphylococcus aureus; Translations: [Bacteremia] 02-18-2024 Episodic Cardiac dysrhythmias (20 sources) Longstanding persistent atrial fibrillation; Translations: [Longstanding persistent atrial fibrillation] Onset: 04-16-2024 02-09-2024 Chronic Chronic obstructive pulmonary disease and bronchiectasis (20 sources) Chronic obstructive lung disease; Translations: [Chronic obstructive pulmonary disease, unspecified] Onset: 04-16-2024 02-23-2024 Chronic Chronic ulcer of skin (20 sources) Chronic non-pressure ulcer of calf extending to fat level; Translations: [Non-pressure chronic ulcer of left calf with fat layer exposed] Onset: 05-27-2025 11-14-2024 Chronic Congestive heart failure; nonhypertensive (20 sources) Acute exacerbation of chronic congestive heart failure; Translations: [Heart failure, unspecified] Onset: 04-16-2024 02-07-2024 Chronic Coronary atherosclerosis and other heart disease (6 sources) Coronary arteriosclerosis; Translations: [Atherosclerotic heart disease of [place] coronary artery without angina pectoris] Onset: 07-16-2024 07-16-2024 Chronic Deficiency and other anemia (16 sources) Anemia; Translations: [Anemia, unspecified] 02-07-2024 Episodic Deficiency and other anemia (2 sources) Anemia, unspecified; Translations: [Anemia, unspecified] 02-07-2024 Episodic Diabetes mellitus with complications (20 sources) Polyneuropathy due to diabetes mellitus; Translations: [Type 2 diabetes mellitus with diabetic polyneuropathy] Onset: 05-27-2025 11-14-2024 Chronic Disorders of lipid metabolism (20 sources) Hyperlipidemia; Translations: [Hyperlipidemia, unspecified] Onset: 04-16-2024 02-23-2024 Chronic Essential hypertension (20 sources) Hypertensive disorder; Translations: [Essential (primary) hypertension] Onset: 04-16-2024 02-23-2024 Chronic Genitourinary symptoms and ill-defined conditions (15 sources) Retention of urine; Translations: [Retention of urine, unspecified] 02-23-2024 Episodic Heart valve disorders (20 sources) Aortic valve stenosis; Translations: [Nonrheumatic aortic (valve) stenosis] Onset: 04-16-2024 02-09-2024 Chronic Hyperplasia of prostate (20 sources) Benign prostatic hyperplasia; Translations: [Benign prostatic hyperplasia without lower urinary tract symptoms] Onset: 04-16-2024 02-23-2024 Chronic Hypertension with complications and secondary hypertension (1 source) Hypertensive heart disease with heart failure; Translations: [Hypertensive heart disease with heart failure] Onset: 09-04-2024 Chronic Other aftercare (20 sources) Long-term current use of 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; Translations: [lobsterman (current) use of 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s] 02-07-2024 Episodic Other aftercare (6 sources) lobsterman (current) use of 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s; Translations: [Long-term (current) use of 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s] Onset: 06-12-2025 02-07-2024 Episodic Other circulatory disease (16 sources) H/O: atrial fibrillation; Translations: [Personal history of other diseases of the circulatory system] 02-07-2024 Episodic Other circulatory disease (4 sources) Personal history of other diseases of the circulatory system; Translations: [Personal history of other diseases of circulatory system] 02-07-2024 Episodic Other circulatory disease (12 sources) Orthostatic hypotension; Translations: [Orthostatic hypotension] 02-23-2024 Episodic Other circulatory disease (3 sources) Orthostatic hypotension; Translations: [Orthostatic hypotension] 03-10-2024 Episodic Other connective tissue disease (20 sources) Lipodermatosclerosis ; Translations: [Panniculitis, unspecified] 04-03-2025 Episodic Other connective tissue disease (1 source) Panniculitis, unspecified; Translations: [Panniculitis, unspecified] Onset: 05-27-2025 Episodic Other diseases of veins and lymphatics (20 sources) Peripheral venous insufficiency; Translations: [Venous insufficiency (chronic) (peripheral)] 11-14-2024 Episodic Other diseases of veins and lymphatics (1 source) Venous insufficiency (chronic) (peripheral); Translations: [Venous insufficiency (chronic) (peripheral)] Onset: 05-27-2025 Episodic Other eye disorders (9 sources) H/O: Bilateral cataract extraction; Translations: [Cataract extraction status, right eye] 03-25-2024 Episodic Comment on above: With lens replacemen t Other fractures (19 sources) Compression fracture of thoracic spine; Translations: [Wedge compression fracture of unspecified thoracic vertebra, initial encounter for closed fracture] 2022 Episodic Other fractures (2 sources) Wedge compression fracture of unspecified thoracic vertebra, initial encounter for closed fracture; Translations: [Closed fracture of dorsal [thoracic] vertebra without mention of spinal cord injury] Episodic Other gastrointestinal disorders (16 sources) Occult blood in stools; Translations: [Other fecal abnormalities] 02-07-2024 Episodic Other gastrointestinal disorders (7 sources) Other fecal abnormalities; Translations: [Nonspecific abnormal findings in stool contents] 02-07-2024 Episodic Other male genital disorders (16 sources) Edema of scrotum; Translations: [Other specified disorders of the male genital organs] 02-07-2024 Episodic Other male genital disorders (7 sources) Other specified disorders of the male genital organs; Translations: [Edema of male genital organs] 02-07-2024 Episodic Other screening for suspected conditions (not mental disorders or infectious disease) (20 sources) INR raised; Translations: [Abnormal coagulation profile] Episodic Residual codes; unclassified (20 sources) Patient noncompliance - general; Translations: [General patient noncompliance] 02-07-2024 Episodic Residual codes; unclassified (20 sources) Bilateral lower limb edema; Translations: [Localized edema] 11-14-2024 Episodic Residual codes; unclassified (1 source) Localized edema; Translations: [Localized edema] Onset: 05-27-2025 Episodic Septicemia (except in labor) (15 sources) Sepsis; Translations: [Sepsis, unspecified organism] 03-18-2024 Episodic Spondylosis; intervertebral disc disorders; other back problems (1 source) Spondylosis without myelopathy or radiculopathy, lumbosacral region; Translations: [Spondylosis without myelopathy or radiculopathy, lumbosacral region] Onset: 06-02-2025 Chronic Spondylosis; intervertebral disc disorders; other back problems (1 source) Radiculopathy, lumbar region; Translations: [Radiculopathy, lumbar region] Onset: 07-11-2025 Episodic Substance-related disorders (1 source) Opioid dependence, uncomplicated; Translations: [Opioid dependence, uncomplicated] Onset: 07-10-2025 Chronic Syncope (20 sources) Syncope; Translations: [Syncope and collapse] Episodic Unclassified (4 sources) Longstanding persistent atrial fibrillation; Translations: [Longstanding persistent atrial fibrillation (HCC)] Onset: 07-02-2024 Past or Other Problems Problem Classification Problem Date Documented Date Episodic/Chronic Deficiency and other anemia (16 sources) Iron deficiency anemia; Translations: [Iron deficiency anemia, unspecified] Onset: 04-16-2024 04-16-2024 Episodic Fluid and electrolyte disorders (16 sources) Hypokalemia; Translations: [Hypokalemia] Onset: 09-05-2024 02-23-2024 Episodic Malaise and fatigue (20 sources) Asthenia; Translations: [Other malaise] Onset: 04-10-2025 Episodic Open wounds of extremities (1 source) Unspecified open wound, left lower leg, initial encounter; Translations: [Unspecified open wound, left lower leg, initial encounter] Onset: 04-10-2025 Episodic Other diseases of veins and lymphatics (16 sources) Venous insufficiency of leg; Translations: [Venous insufficiency (chronic) (peripheral)] Onset: 04-16-2024 04-16-2024 Episodic Screening and history of mental health and substance abuse codes (16 sources) Ex-smoker; Translations: [Personal history of nicotine dependence] Onset: 04-16-2024 04-16-2024 Episodic Varicose veins of lower extremity (1 source) Varicose veins of left lower extremity with ulcer of calf; Translations: [Varicose veins of left lower extremity with ulcer of calf] Onset: 03-14-2025 Episodic Results Test Name Value Interpretation Reference Range Facility [id number] 07-07-2025 [facility] Normal . [facility] Comment on above: Order Comment: [id number] Result Comment: Test Ordered: [id number] Amphetamines Screen, Urine Negative ng/mL UI Reference Range: Oqsjxk=236 Amphetamine test includes Amphetamine and Methamphetamine. Barbiturates Negative ng/mL UI Reference Range: Drjgva=164 Benzodiazepines Negative ng/mL UI Reference Range: Wgrodv=338 Cocaine (Metab.), Urine Negative ng/mL UI Reference Range: Zuirno=817 Opiates Note: ng/mL UI See Final Results Reference Range: Yonxmc=689 Opiate test includes Codeine, Morphine, Hydromorphone, Hydrocodone. Opiates Negative UI Reference Range: Gldesv=252 Opiate test includes Codeine, Morphine, Hydromorphone, Hydrocodone. 6-Acetylmorphine, Urine Negative ng/mL UI Reference Range: Cutoff=10 Oxycodone/Oxymorphone, Urine Note: ng/mL UI See Final Results Reference Range: Mxjecb=716 Test includes Oxycodone and Oxymorphone Oxycodone/Oxymorph Positive [A ] UI Reference Range: Kvtlpd=430 Test includes Oxycodone and Oxymorphone Oxycodone Positive [A ] UI Reference Range: . Oxycodone Conf, MS, UR 2234 ng/mL UI Reference Range: Tvgodo=957 Oxymorphone Positive [A ] UI Reference Range: . Oxymorphone Conf, MS, UR 1933 ng/mL UI Reference Range: Yecfwp=864 PCP, Urine Negative ng/mL UI Reference Range: Cutoff=25 Methadone Screen, Urine Negative ng/mL UI Reference Range: Qqvinz=451 Propoxyphene, Urine Negative ng/mL UI Reference Range: Edpvok=527 Fentanyl, Urine Negative ng/mL UI Reference Range: Cutoff=2.0 Test includes Fentanyl and Norfentanyl This test was developed and its performance characteristics determined by [facility]. It has not been cleared or approved by the Food and Drug Administration. Tramadol Negative ng/mL UI Reference Range: Qoopyw=774 Buprenorphine, Urine Negative ng/mL UI Reference Range: Cutoff=10 Creatinine, Urine 67.8 mg/dL UI Reference Range: 20.0-300.0 pH, Urine 7.7 UI Reference Range: 4.5-8.9 Performed at: - [facility] [address] [place], [place] [id number] Food Product Inspector: Estefany Camargo PhD, Phone: [phone] Performed at: [facility] [address] [id number] Food Product Inspector: Manohar Pathak PhD, Phone: [phone] Performed By: #### L 300.3900 #### [facility] [address] [place], [address] Amphetamine detection with 1 000 ng/mL as cutoffOrdered By: Shady Obrien on 07-01-2025 Amphetamines Screen method >1000 ng/mL Ql (U) Negative < 200 ng/mL [facility] normalized rat io (INR) calculationOrdered By: Shady Obrien on 07-01-2025 INR Coag (Bld) [Relative time] 2.7 {INR} [facility] No Panel InformationOrdered By: Shady Obrien on 07-01-2025 Urine Buprenorphine Qualitative Negative < 200 ng/mL [facility] Urine Oxycodone Screen Positive < 100 ng/mL [facility] Comment on above: If confirmation test ing is needed, a separate order will be required to send out testing to the reference laboratory. Prothrombin Time w/INRon INR Coag (PPP) [Relative time] 2.7 {INR} Normal [facility] Comment on above: Performed By: #### L 300.3900 #### [facility] [address] [place], [address] PT Coag (PPP) [Time] 29.1 s High 11.7-14.9 [facility] Comment on above: Performed By: #### L 300.3900 #### [facility] [address] [place], [address] Prothrombin timeOrdered By: Shady Obrien on 07-01-2025 PT Coag (PPP) [Time] 29.1 s High 11.7-14.9 [facility] Quantitative urine opiates m easurementOrdered By: Shady Obrien on 07-01-2025 Opiates Ql (U) Negative < 300 ng/mL [facility] Screening urine fentanyl jeffrey surementOrdered By: Shady Obrien on 07-01-2025 fentaNYL Screen Ql (U) Negative [facility] Comment on above: CONFIRMATORY TESTING FOR ALL POSITIVE URINE DRUG SCREENRESULTS WILL ONLY BE SENT OUT UPON PHYSICIAN ORDER. Benny Pro Urine Drug Screen methods provide only preliminaryanalytical test results. A more specific alternate chemicalmethod must be used in order to obtain a confirmedanalytical result. Gas chromatography/mass spectrometery(GC/MS) is the preferred confirmatory method. Clinicalconsideration and professional judgement should be appliedto any drug of abuse test result, particularly whenpreliminary positive results are used. Urine TCA testing must be ordered separately. Use test mnemonic: [facility] Urine Drug Screen (VISTA)on 07-01-2025 AMPHETAMINES Negative Normal <1000 ng/mL [facility] Comment on above: Order Comment: UNK Performed By: #### L 300.3900 #### [facility] [address] [place], [address] BARBITIURATES Negative Normal < 200 ng/mL [facility] Comment on above: Order Comment: UNK Performed By: #### L 300.3900 #### [facility] [address] [place], [address] BENZODIAZIPINE Negative Normal < 200 ng/mL [facility] Comment on above: Order Comment: UNK Performed By: #### L 300.3900 #### [facility] [address] [place], [address] BUP Ur Drug Scr Negative Normal < 200 ng/mL [facility] Comment on above: Order Comment: UNK Performed By: #### L 300.3900 #### [facility] [address] [facility] [address] COCAINE Negative Normal < 300 ng/mL [facility] Comment on above: Order Comment: UNK Performed By: #### L 300.3900 #### [facility] [address] [facility] [address] Fentanyl Negative Normal [facility] Comment on above: Order Comment: UNK Result Comment: CONF IRMATORY TESTING FOR ALL POSITIVE URINE DRUG SCREEN RESULTS WILL ONLY BE SENT OUT UPON PHYSICIAN ORDER. Benny Pro Urine Drug Screen methods provide only preliminary analytical test results. A more specific alternate chemical method must be used in order to obtain a confirmed analytical result. Gas chromatography/mass spectrometery (GC/MS) is the preferred confirmatory method. Clinical consideration and professional judgement should be applied to any drug of abuse test result, particularly when preliminary positive results are used. Urine TCA testing must be ordered separately. Use test mnemonic: [facility] Performed By: #### L 300.3900 #### [facility] [address] [place] [address] METHADONE Negative Normal < 300 ng/mL [facility] Comment on above: Order Comment: UNK Performed By: #### L 300.3900 #### [facility] [address] [place] [id number] OPIATES Negative Normal < 300 ng/mL [facility] Comment on above: Order Comment: UNK Performed By: #### L 300.3900 #### [facility] [address] [place] [id number] OXYCODONE Positive Normal < 100 ng/mL [facility] Comment on above: Order Comment: UNK Result Comment: If c onfirmation testing is needed, a separate order will be required to send out testing to the reference laboratory. Performed By: #### L 300.3900 #### [facility] [address] [place] [phone] PCP Negative Normal < 25 ng/mL [facility] Comment on above: Order Comment: UNK Performed By: #### L 300.3900 #### [facility] [address] [place], [place], [id number] THC Negative Normal < 50 ng/mL [facility] Comment on above: Order Comment: UNK Performed By: #### L 300.3900 #### [facility] [address] [place], [place], [id number] Urine benzodiazepine levelOr dered By: Shady Obrien on 07-01-2025 Benzodiazepines Ql (U) Negative < 200 ng/mL [facility] Urine cocaine levelOrdered B y: Shady Obrien on 07-01-2025 Cocaine Ql (U) Negative < 300 ng/mL [facility] Urine rnvfp-5-[id number] abinol (THC) measurementOrdered By: Shady Obrien on 07-01-2025 Cannabinoids Screen Ql (U) Negative < 50 ng/mL [facility] Urine phencyclidine (PCP) de tectionOrdered By: Shady Obrien on 07-01-2025 Phencyclidine Ql (U) Negative < 25 ng/mL [facility] Lumbar Spine 2 or 3 Viewson 05-27-2025 Lumbar Spine 2 or 3 Views [facility] [address] [place], [place] [address] Lumbar Spine 2 or 3 Views MR#: [id number] Acct: [id number] Name: ANDER MONTEIRO Rep #: [id number] : 1950 M 74 From: Brady Desir MD PCP: Dr. Freedom Sutton MD Status: REG CLI Study: Lumbar Spine 2 or 3 Views Date of Exam: Exam# [id number] Ordering Dr: Angel Musa MD EXAM: XR Lumbosacral Spine, 2 or 3 Views CLINICAL INDICATION: SPONDYLOSIS WITHOUT MYELOPATHY OR RADICULOPATHY, LUMBOSACRAL PEGGY TECHNIQUE: Frontal and lateral views of the lumbar spine and sacrum. COMPARISON: No relevant prior studies available. FINDINGS: VERTEBRAE: Moderate endplate degenerative changes and disc degeneration and visualized spine. Moderate facet arthropathy of L3-S1. Moderate to severe anterior wedging deformity of T12 and T11 vertebral bodies. Grade 1 anterior spondylolisthesis of L5 over S1. Further evaluation MRI is recommended. SACRUM/COCCYX: Unremarkable as visualized. No acute fracture. DISC SPACES: No acute findings. No significant narrowing. SOFT TISSUES: Unremarkable. VASCULATURE: Scattered calcified atherosclerotic disease of aorta. RAD/Lumbar Spine 2 or 3 Views IMPRESSION: 1. Grade 1 anterior spondylolisthesis of L5 over S1. Further evaluation MRI is recommended. 2. Degenerative changes as above. Reading [facility] CC: Dr. Angel Musa MD; Dr. Freedom Sutton MD Street [employer] Supervisor: Signed Normal [facility] normalized rat io (INR) calculationOrdered By: Shady Obrien on 05-15-2025 INR Coag (Bld) [Relative time] 1.7 {INR} [facility] Prothrombin Time w/INRon INR Coag (PPP) [Relative time] 1.7 {INR} Normal [facility] Comment on above: Performed By: #### L 300.3900 #### [facility] [address] [place], [address] PT Coag (PPP) [Time] 20.3 s High 11.7-14.9 [facility] Comment on above: Performed By: #### L 300.3900 #### [facility] [address] [place], [place], [id number] Prothrombin timeOrdered By: Shady Obrien on 05-15-2025 PT Coag (PPP) [Time] 20.3 s High 11.7-14.9 [facility] normalized rat io (INR) calculationOrdered By: Shady Obrien on 04-12-2025 INR Coag (Bld) [Relative time] 3.4 {INR} [facility] Prothrombin Time w/INRon INR Coag (PPP) [Relative time] 3.4 {INR} Normal [facility] Comment on above: Performed By: #### L 300.3900 #### [facility] [address] [facility], [place], [address] PT Coag (PPP) [Time] 34.8 s High 11.7-14.9 [facility] Comment on above: Performed By: #### L [id number] #### [facility] [address] [place], [address] Prothrombin timeOrdered By: Shady Obrien on 04-12-2025 PT Coag (PPP) [Time] 34.8 s High 11.7-14.9 [facility] History AND Physic florencio 03-29-2025 Wound Ctr History & Physical [facility] [address] [place] [address] H P Exam - Wound Care 03/29/251924 MR#: [id number] Acct: [id number] Name: ANDER MONTEIRO Rep #: [id number] : 1950 74 From: Kirby Santiago MD PCP: Dr. Freedom Sutton MD Status:DEP CLI Location: LAB History of Present Illness Date of Service: 03/27/25 Chief Complaint: Venous stasis ulcerations bilaterally History of Wound: This is a 74-year-old male who is well-known to the Wound Center, a patient of Dr. Shady Ogden. He has recently been treated for a venous stasis ulceration of the left lower extremity, for which he was treated at the Wound Center earlier this year. He has a longstanding history of swelling and edema in his lower extremities. He now presented with venous stasis ulcerations in both lower extremities. Cultures were obtained on March 18, 2025, by his primary care physician, Dr. Sutton, which were positive for methicillin-resistant Staph aureus, Enterococcus faecalis, and Rothia kristinae. The patient is currently in the midst of a prescription for linezolid, showering daily with Hibiclens, and using mupirocin in his nares. This represents the first episode of MRSA. The patient claims to have graduated compression stockings of 20 to 30 mmHg compression, which he claims to be wearing daily. He denies a history of deep vein thrombosis. He claims to sleep on a flat mattress at night. He also claims to lead an active lifestyle. The patient is on long-term anticoagulation with warfarin. The patient has multiple pre-existing medical conditions, and previously has undergone a transcutaneous aortic valve replacement (TAVR). While his medical records suggest a history of diabetes mellitus, the patient denies this diagnosis. [facility] Medical History BPH (benign prostatic hyperplasia) MRSA (methicillin resistant staph aureus) culture positive Aortic stenosis 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 RAFAEL on CPAP Chronic pain syndrome HLD (hyperlipidemia) Obesity (HFpEF) heart failure with preserved ejection fraction Longstanding persistent atrial fibrillation History of atrial fibrillation Anemia Congestive heart failure Medical non-compliance Compression fx, thoracic spine Hypertension Former smoker COPD (chronic obstructive pulmonary disease) Home Medications ???Medication ???Instructions ???Recorded ???Last Taken ???Type simvastatin 10 mg tablet 10 mg PO QHS cholesterol 09/06/22 02/22/24 History terazosin 2 mg capsule 2 mg PO QHS prostate 09/06/2202/11 History albuterol sulfate 90 mcg/actuation 1 puff inhalation Q4H PRN SOB 02/23/24 History aerosol inhaler tiotropium 2.5 mcg-olodaterol 2.5 1 puff inhalation BID breathing 0 02/08/24 Unknown History mcg/actuation mist for inhalation (Stiolto Respimat) acetaminophen 500 mg tablet 1,000 mg (2 x 500 mg) PO Q8 #0 tab s 03/06/24 Unknown Rx sennosides 8.6 mg-docusate sodium 2 tab PO BID 30 days #120 tabs Unknown Rx 50 mg tablet (Stool Softener-Stimulant Laxative) ferrous sulfate 325 mg (65 mg 325 mg PO QDAY 03/25/24 Unknown Hi story iron) tablet (FeroSul) oxycodone 10 mg tablet 10 mg PO TID PRN pain 03/25/24 History warfarin 5 mg tablet 5 mg PO .COMPLEX #180 tabs 5 Unknown Rx furosemide 80 mg tablet 80 mg PO QDAY 03/17/25 Unknown His tory doxepin 10 mg capsule 10 mg PO DAILY 03/27/25 Unknown Hi story linezolid 600 mg tablet 600 mg PO Q12.TCU 03/27/25 Unknown History mupirocin 2 % topical ointment 1 applic topical BID 03/27/25 Unkn own History Allergy/AdvReac Type Severity Reaction Status Date / Time pramoxine Allergy Rash Verified 03/27/25 15:08 Family History Mother Cancer Father CAD (coronary artery disease) Heart disease Hypertension Myocardial infarction Surgical History S/P TAVR (transcatheter aortic valve replacement) History of bilateral cataract extraction History of cardiac radiofrequency ablation (RFA) History of tonsillectomy and adenoidectomy Social History household members: family Smoking Status: Former smoker how long ago did patient quit smoking: Quit 35 yrs prior. alcohol intake: never substance use type: does not use Physical Exam Const alert, oriented x3 and no apparent distress General Appearance: cooperative and well developed Orientation / Consciousness: awake, oriented to person, oriented to place and oriented to time HEENT normocephalic and head/scalp atraumatic Head and Scalp: normal to inspection Face and Sinus: normal facial exam External Ear: external ears normal E (more content not included)... Normal [facility] Wound Cultureon 03-24-2025 DR. LINDO OFFICE LEFT LEG Wound Culture #3 Clinical correlation necessary, Possible skin contamination. Organism is too fastidious for routine susceptibility studies. Wound Culture Copy of report sent to Infection Control Printer [id number] 03/22/25 1028 ASNIPES. Meth. resistant Staph. aureus Amount Growth Growth mecA Testing not performed EFAC Amount Growth Growth Enterococcus faecalis Amount Growth Growth Meth. resistant Staph. aureus: REACTION Rothia kristinae Doxycycline Islt JONATHAN <=0.5 Clindamycin Islt JONATHAN R Clindamycin.induced Susc Islt Erythromycin Islt JONATHAN 1 I Gentamicin Islt JONATHAN <=0.5 S Linezolid Islt JONATHAN 1 S Moxifloxacin Islt JONATHAN <=0.25 S Oxacillin Susc Islt R Tetracycline Islt JONATHAN <=1 S TMP SMX Islt JONATHAN <=10 S Vancomycin Islt JONATHAN 1 S Enterococcus faecalis: REACTION Ampicillin Islt JONATHAN <=2 S Gentamicin Synergy Susc Islt SYN-S S Linezolid Islt JONATHAN 2 S Streptomycin High Pot Susc Islt SYN-S Vancomycin Islt JONATHAN 1 S Normal [facility] Comment on above: Performed By: #### L 300.3900 #### [facility] [address] [place], [place], [id number] Gram Stainon 03-19-2025 DR. LINDO OFFICE LEFT LEG Gram Stain Rare Gram positive cocci 1+ Gram positive rods No White Blood Cells No Epithelial cells Normal [facility] Comment on above: Performed By: #### L 300.3900 #### [facility] [address] [place], [place], [id number] Absolute lymphocyte countOrd ered By: Freedom Herman on 03-18-2025 Lymphocytes Auto (Unsp spec) [#/Vol] 1.28 10*3/uL 0.83-4.51 [facility] Absolute neutrophil countOrd ered By: Freedom Herman on 03-18-2025 Neutrophils (Bld) [#/Vol] 3.8 10*3/uL 2.0-7.7 [facility] Anion gap in Serum or Plasma Ordered By: Freedom Sutton on 03-18-2025 Anion gap [Moles/Vol] 11 mmol/L 5-15 [facility] Automated lymphocyte count a s percentage of total leukocytesOrdered By: Freedom Sutton on 03-18-2025 Lymphocytes/100 WBC Auto (Unsp spec) 20.8 % 19-41 [facility] BUN/creatinine ratioOrdered By: Freedom Sutton on 03-18-2025 Urea nitrogen/Creatinine [Mass ratio] 15.6 mg/mg 10-20 [facility] Basophil percentageOrdered B y: Freedom Sutton on 03-18-2025 Basophils/100 WBC (Bld) 1.1 % High 0-1 [facility] Bilirubin, totalOrdered By: Freedom Sutton on 03-18-2025 Bilirubin [Mass/Vol] 0.81 mg/dL 0.00-1.30 [facility] CBC W/Diff, Automatedon Absolute Lymph 1.28 X10 3/uL Normal 0.83-4.51 [facility] Comment on above: Performed By: #### L 300.3900 #### [facility] [address] [place], [address] Absolute Neut 3.8 X10 3/uL Normal 2.0-7.7 [facility] Comment on above: Performed By: #### L 300.3900 #### [facility] [address] [place], [address] Basophils/100 WBC (Bld) 1.1 % High 0-1 [facility] Comment on above: Performed By: #### L [id number] #### [facility] [address] [place], [address] Eosinophils/100 WBC (Bld) 3.4 % Normal 0-5 [facility] Comment on above: Performed By: #### L 300.3900 #### [facility] [address] [place], [address] Erythrocyte distribution width (RBC) [Ratio] 14.8 % High 11.6-14.6 [facility] Comment on above: Performed By: #### L 300.3900 #### [facility] [address] [place], [address] Hematocrit (Bld) [Volume fraction] 35.0 % Low 40-54 [facility] Comment on above: Performed By: #### L 300.3900 #### [facility] [address] [place], [address] Hemoglobin (Bld) [Mass/Vol] 10.9 g/dL Low 13.0-16.5 [facility] Comment on above: Performed By: #### L 300.3900 #### [facility] [address] [place], [address] IG% 0.200 Normal 0.0-0.9 [facility] Comment on above: Result Comment: IG% - Immature Granulocytes (promyelocytes, myelocytes and metamyelocytes) > 1% indicates that a LEFT SHIFT is Present. Performed By: #### L 300.3900 #### [facility] [address] [place], [address] Lymphocytes/100 WBC (Bld) 20.8 % Normal 19-41 [facility] Comment on above: Performed By: #### L 300.3900 #### [facility] [address] [place], [address] MCH (RBC) [Entitic mass] 29.0 pg Normal 27.0-32.0 [facility] Comment on above: Performed By: #### L 300.3900 #### [facility] [address] [place], [address] MCHC (RBC) [Mass/Vol] 31.1 g/dL Low 32-36 [facility] Comment on above: Performed By: #### L 300.3900 #### [facility] [address] [place], [address] MCV (RBC) [Entitic vol] 93.1 fL Normal 80-94 [facility] Comment on above: Performed By: #### L 300.3900 #### [facility] [address] [place], [address] Monocytes/100 WBC (Bld) 12.7 % High 0-10 [facility] Comment on above: Performed By: #### L 300.3900 #### [facility] [address] [place], [address] Neutrophils/100 WBC (Bld) 61.8 % Normal 47-70 [facility] Comment on above: Performed By: #### L 300.3900 #### [facility] [address] [place], [address] Nucleated RBC (Bld) [#/Vol] 0 10*3/uL Normal 0-5 [facility] Comment on above: Performed By: #### L 300.3900 #### [facility] [address] [place], [address] Platelet mean volume (Bld) [Entitic vol] 11.3 fL Normal 6.2-12.0 [facility] Comment on above: Performed By: #### L 300.3900 #### [facility] [address] [place], [address] Platelets (Bld) [#/Vol] 157 10*3/uL Normal 150-450 [facility] Comment on above: Performed By: #### L 300.3900 #### [facility] [address] [place], [address] RBC (Bld) [#/Vol] 3.76 10*6/uL Low 4.6-6.2 [facility] Comment on above: Performed By: #### L 300.3900 #### [facility] [address] [place], [address] RDW SD 50.7 fl High 35.1-43.9 [facility] Comment on above: Performed By: #### L 300.3900 #### [facility] [address] [place], [address] WBC (Bld) [#/Vol] 6.2 10*3/uL Normal 4.4-11.0 [facility] Comment on above: Performed By: #### L 300.3900 #### [facility] [address] [place], [address] Calculated very low density lipoprotein (VLDL) cholesterol measurementOrdered By: Freedom Sutton on 03-18-2025 Calculated very low density lipoprotein (VLDL) cholesterol measurement 13 mg/dL 5-40 [facility] Carbon dioxide, total [Moles /volume] in Central venous bloodOrdered By: Freedom Sutton on 03-18-2025 CO2 [Moles/Vol] 26.5 mmol/L 21.0-32.0 [facility] Chloride assayOrdered By: Nico Sutton on 03-18-2025 Chloride [Moles/Vol] 105 mmol/L 98-108 [facility] Comprehensive Metabolic Prof ilon 03-18-2025 Albumin [Mass/Vol] 3.8 g/dL Normal 3.4-4.8 [facility] Comment on above: Performed By: #### L 300.3900 #### [facility] [address] [place], [address] Albumin/Globulin [Mass ratio] 1.0 {ratio} Normal 0.9-2.4 [facility] Comment on above: Performed By: #### L 300.3900 #### [facility] [address] [place], [address] ALK PHOS 114 U/L Normal 40-129 [facility] Comment on above: Performed By: #### L 300.3900 #### [facility] [address] [place], [address] ALT [Catalytic activity/Vol] 11 U/L Normal <=46 [facility] Comment on above: Performed By: #### L 300.3900 #### [facility] [address] [place], [address] AST [Catalytic activity/Vol] 20 U/L Normal <=37 [facility] Comment on above: Performed By: #### L 300.3900 #### [facility] [address] [place], [address] Bilirubin [Mass/Vol] 0.81 mg/dL Normal 0.00-1.30 [facility] Comment on above: Performed By: #### L 300.3900 #### [facility] [address] [place], [address] BUN/CRE 15.6 RATIO Normal 10-20 [facility] Comment on above: Performed By: #### L 300.3900 #### [facility] [address] [place], [address] Calcium [Mass/Vol] 9.5 mg/dL Normal 7.6-11.0 [facility] Comment on above: Performed By: #### L 300.3900 #### [facility] [address] [place], [address] Chloride [Moles/Vol] 105 mmol/L Normal 98-108 [facility] Comment on above: Performed By: #### L 300.3900 #### [facility] [address] [place], [address] CO2 [Moles/Vol] 26.5 mmol/L Normal 21.0-32.0 [facility] Comment on above: Performed By: #### L 300.3900 #### [facility] [address] [place], [address] Creatinine [Mass/Vol] 1.09 mg/dL Normal 0.70-1.20 [facility] Comment on above: Performed By: #### L 300.3900 #### [facility] [address] [place], [address] GAP 11 Normal 5-15 [facility] Comment on above: Performed By: #### L 300.3900 #### [facility] [address] [place], [address] GFR/1.73 sq M.predicted among non-blacks MDRD (S/P/Bld) [Vol rate/Area] 71 mL/min/{1.73_m2} Normal >60 [facility] Comment on above: Result Comment: mL/m in/1.73m2 CKD-EPI Creatinine Equation (2020) Performed By: #### L 300.3900 #### [facility] [address] [place], [address] Globulin (S) [Mass/Vol] 4.0 g/dL Normal 2.2-4.2 [facility] Comment on above: Performed By: #### L 300.3900 #### [facility] [address] [place], [address] Glucose [Mass/Vol] 131 mg/dL High 70-99 [facility] Comment on above: Performed By: #### L 300.3900 #### [facility] [address] [place], [address] Potassium [Moles/Vol] 4.0 mmol/L Normal 3.3-5.1 [facility] Comment on above: Performed By: #### L 300.3900 #### [facility] [address] [place], [address] Sodium [Moles/Vol] 143 mmol/L Normal 133-145 [facility] Comment on above: Performed By: #### L 300.3900 #### [facility] [address] [place], [address] T PROT 7.7 g/dL Normal 5.9-8.4 [facility] Comment on above: Performed By: #### L 300.3900 #### [facility] [address] [place], [address] Urea nitrogen [Mass/Vol] 17 mg/dL Normal 4-19 [facility] Comment on above: Performed By: #### L 300.3900 #### [facility] [address] [place], [address] Eosinophil percentageOrdered By: Freedom Sutton on 03-18-2025 Eosinophils/100 WBC (Bld) 3.4 % 0-5 [facility] Erythrocyte distribution wid th ratioOrdered By: Freedom Sutton on 03-18-2025 Erythrocyte distribution width (RBC) [Ratio] 14.8 % High 11.6-14.6 [facility] Erythrocyte distribution wid th standard deviationOrdered By: Freedom Sutton on 03-18-2025 Erythrocyte distribution width (RBC) [Ratio] 50.7 fl High 35.1-43.9 [facility] Glomerular filtration rate ( GFR) estimation/1.73 sq m using serum, plasma, or whole bOrdered By: Freedom Sutton on 03-18-2025 GFR/1.73 sq M.predicted among non-blacks MDRD (S/P/Bld) [Vol rate/Area] 71 mL/min/{1.73_m2} >60 [facility] Comment on above: mL/min/1.73m2 CKD-EP I Creatinine Equation (2020) Gram stainOrdered By: Freedom riggs on 03-18-2025 Microscopic observation Gram stain Nom (Unsp spec) [facility] Hematocrit Auto (Bld) [Volum e fraction]Ordered By: Freedom Sutton on 03-18-2025 Hematocrit (Bld) [Volume fraction] 35.0 % Low 40-54 [facility] Hemoglobin measurementOrdere d By: Freedom Sutton on 03-18-2025 Hemoglobin (Bld) [Mass/Vol] 10.9 g/dL Low 13.0-16.5 [facility] Immature granulocytes/100 WB C Auto (Bld)Ordered By: Freedom Sutton on 03-18-2025 Immature granulocytes/100 WBC (Bld) 0.200 % 0.0-0.9 [facility] Comment on above: IG% - Immature Granu locytes (promyelocytes, myelocytes and metamyelocytes) > 1% indicates that a LEFT SHIFT is Present. LDL calc ser/plasOrdered By: Freedom Sutton on 03-18-2025 Cholesterol in LDL [Mass/Vol] 28 mg/dL [facility] Comment on above: Jsiaqtdnbr=239-908 m g/dL & Higher Vpiy=013 mg/dL or greater Laboratory - Chemistry and C hemistry - challengeOrdered By: Freedom Sutton on 03-18-2025 AST [Catalytic activity/Vol] 20 U/L <38 [facility] Lipid Profileon 03-18-2025 CHOL:HDL 1.71 Normal [facility] Comment on above: Performed By: #### L 300.3900 #### [facility] [address], [address] Cholesterol [Mass/Vol] 100 mg/dL Normal <=200 [facility] Comment on above: Result Comment: Chol esterol level, Desirable <200 mg/dL Borderline high cholesterol 200-239 mg/dL High cholesterol >=240 mg/dL Recommendations of the NCEP Adult Treatment Panel for the following risk-cutoff thresholds for the [place] population. Performed By: #### L 300.3900 #### [facility] [address] [place], [address] Cholesterol in HDL [Mass/Vol] 58 mg/dL Normal [facility] Comment on above: Result Comment: Christy onal Cholesterol Education Program (NCEP) guidelines: <40 mg/dL: Low HDL-cholesterol (major risk factor for CHD) >= 60 mg/dL: High HDL-cholesterol (negative risk factor for CHD) HDL-cholesterol is affected by a number of factors, e.g. smoking, exercise, hormones, sex and age. Performed By: #### L 300.3900 #### [facility] [address] [place], [address] Cholesterol in LDL [Mass/Vol] 28 mg/dL Normal [facility] Comment on above: Result Comment: Bord aztkjw=265-910 mg/dL Higher Nlbs=917 mg/dL or greater Performed By: #### L 300.3900 #### [facility] [address] [place], [address] Cholesterol in VLDL [Mass/Vol] 13 mg/dL Normal 5-40 [facility] Comment on above: Performed By: #### L 300.3900 #### [facility] [address] [place], [address] Triglyceride [Mass/Vol] 66 mg/dL Normal [facility] Comment on above: Result Comment: The drugs N-Acetylcysteine and Metamizole may falsely depress this assay. Normal range: <150 mg/dL Borderline High: 150-199 mg/dL High: 200-499 mg/dL Very High: >500 mg/dL Performed By: #### L 300.3900 #### [facility] [address] [place], [place], [id number] MCV (mean corpuscular volume ) determinationOrdered By: Freedom Sutton on 03-18-2025 MCV (RBC) [Entitic vol] 93.1 fL 80-94 [facility] MRSA Wound DNA by PCRon MRSA DNA ASSAY Negative Normal Negative [facility] Comment on above: Order Comment: LEFT LEGWOUND Performed By: #### L 300.3900 #### [facility] [address] [place], [place], [id number] SA DNA ASSAY Positive Abnormal Negative [facility] Comment on above: Order Comment: LEFT LEGWOUND Performed By: #### L 300.3900 #### [facility] [address] [place], [place], [id number] Mean corpuscular hemoglobin (MCH) determinationOrdered By: Freedom Sutton on 03-18-2025 MCH (RBC) [Entitic mass] 29.0 pg 27.0-32.0 [facility] Mean corpuscular hemoglobin concentration (MCHC) determinationOrdered By: Freedom Sutton on 03-18-2025 MCHC (RBC) [Mass/Vol] 31.1 g/dL Low 32-36 [facility] Mean platelet volume determi nationOrdered By: Freedom Sutton on 03-18-2025 Platelet mean volume (Bld) [Entitic vol] 11.3 fL 6.2-12.0 [facility] Monocyte percentageOrdered B y: Freedom Sutton on 03-18-2025 Monocytes/100 WBC (Bld) 12.7 % High 0-10 [facility] Neutrophil percentageOrdered By: Freedom Sutton on 03-18-2025 Neutrophils/100 WBC (Bld) 61.8 % 47-70 [facility] Nucleated red blood cell per centageOrdered By: Freedom Sutton on 03-18-2025 Nucleated RBC/100 WBC (Bld) [Ratio] 0 % 0-5 [facility] Platelet countOrdered By: Nico Sutton on 03-18-2025 Platelets (Bld) [#/Vol] 157 10*3/uL 150-450 [facility] Potassium measurement (mass/ volume)Ordered By: Freedom Sutton on 03-18-2025 Potassium (Unsp spec) [Mass/Vol] 4.0 mmol/L 3.3-5.1 [facility] RBC Auto (Bld) [#/Vol]Ordere d By: Freedom Sutton on 03-18-2025 RBC (Bld) [#/Vol] 3.76 10*6/uL Low 4.6-6.2 [facility] Routine wound cultureOrdered By: Freedom Sutton on 03-18-2025 Microbial culture, routine Meth. resistant Staph. aureus Abnormal [facility] Screening total cholesterol/ high density lipoprotein (HDL) cholesterol ratioOrdered By: Freedom Sutton on 03-18-2025 Cholesterol.total/Cholest delvis in HDL [Mass ratio] 1.71 {ratio} [facility] Serum creatinine measurement (mass/volume)Ordered By: Freedom Sutton on 03-18-2025 Creatinine [Mass/Vol] 1.09 mg/dL 0.70-1.20 [facility] Serum globulin measurementOr dered By: Freedom Sutton on 03-18-2025 Globulin (S) [Mass/Vol] 4.0 g/dL 2.2-4.2 [facility] Serum glucose measurement (m ass/volume)Ordered By: Freedom Sutton on 03-18-2025 Glucose [Mass/Vol] 131 mg/dL High 70-99 [facility] Serum or plasma alanine rhodes otransferase (ALT) measurementOrdered By: Freedom Sutton on 03-18-2025 ALT [Catalytic activity/Vol] 11 U/L <47 [facility] Serum or plasma albumin sawyer urement (mass/volume)Ordered By: Freedom Sutton on 03-18-2025 Albumin [Mass/Vol] 3.8 g/dL 3.4-4.8 [facility] Serum or plasma albumin/glob ulin mass ratioOrdered By: Freedom Sutton 03-18-2025 Albumin/Globulin [Mass ratio] 1.0 {ratio} 0.9-2.4 [facility] Serum or plasma alkaline rafita sphatase measurementOrdered By: Freedom Sutton on 03-18-2025 ALP [Catalytic activity/Vol] 114 U/L 40-129 [facility] Serum or plasma calcium sawyer urement (mass/volume)Ordered By: Freedom Sutton on 03-18-2025 Calcium [Mass/Vol] 9.5 mg/dL 7.6-11.0 [facility] Serum or plasma cholesterol in HDL measurement (mass/volume)Ordered By: Freedom Sutton on 03-18-2025 Cholesterol in HDL [Mass/Vol] 58 mg/dL >40 [facility] Comment on above: National Cholesterol Education Program (NCEP) guidelines:<40 mg/dL: Low HDL-cholesterol (major risk factor for CHD)>= 60 mg/dL: High HDL-cholesterol (negative risk factor for CHD)HDL-cholesterol is affected by a number of factors, e.g. smoking, exercise, hormones, sex and age. Serum or plasma cholesterol measurement (mass/volume)Ordered By: Freedom Sutton on 03-18-2025 Cholesterol [Mass/Vol] 100 mg/dL <201 [facility] Comment on above: Cholesterol level, D esirable <200 mg/dLBorderline high cholesterol 200-239 mg/dLHigh cholesterol >=240 mg/dLRecommendations of the NCEP Adult Treatment Panel for the following risk-cutoff thresholds for the [place] population. Serum or plasma urea nitroge n measurement (mass/volume)Ordered By: Freedom Sutton on 03-18-2025 Urea nitrogen [Mass/Vol] 17 mg/dL 4-19 [facility] Sodium levelOrdered By: Freedom Sutton 03-18-2025 Sodium [Moles/Vol] 143 mmol/L 133-145 [facility] Staphylococcus aureus DNA de tection by probe and target amplification methodOrdered By: Freedom Sutton on 03-18-2025 S. aureus DNA BUCK+probe Ql (Unsp spec) Positive High Negative [facility] TSH DL <= 0.005 mIU/L QnOrde red By: Freedom Sutton on 03-18-2025 TSH Qn 1.600 uIU/mL 0.300-4.200 [facility] Thyroid Stim Hormone (TSH)on 03-18-2025 TSH 1.600 uIU/mL Normal 0.300-4.200 [facility] Comment on above: Performed By: #### L 300.3900 #### [facility] [address] [place], [place], [id number] Total proteinOrdered By: Freedom Sutton on 03-18-2025 Protein [Mass/Vol] 7.7 g/dL 5.9-8.4 [facility] Triglycerides measurementOrd ered By: Freedom Sutton on 03-18-2025 Triglyceride [Mass/Vol] 66 mg/dL <199 [facility] Comment on above: The drugs N-Acetylcy steine and Metamizole may falsely depress this assay. Normal range: <150 mg/dLBorderline High: 150-199 mg/dLHigh: 200-499 mg/dLVery High: >500 mg/dL Vitamin D,25 Hydroxyon 03-18 Vitamin D 25-OH 26.5 ng/mL Low 30-100 [facility] Comment on above: Result Comment: Inge min D Status Deficiency: <20 ng/mL (50nmol/L) Insufficiency: 20-30 ng/mL (50-75 nmol/L) Sufficiency: 30-100 ng/mL (75-250 nmol/L) Toxicity: >100 ng/mL (>250 nmol/L) Performed By: #### L 300.3900 #### [facility] [address] [place], [place], [id number] White blood cell (WBC) count Ordered By: Freedom Sutton on 03-18-2025 WBC (Bld) [#/Vol] 6.2 10*3/uL 4.4-11.0 [facility] Cardiology Visit Reporton Cardiology Visit Report [facility] [address] [place], [place] [address] OFFICE VISIT Date of Service: 03/17/25 MR#: [id number] Acct: [id number] Name: ANDER MONTEIRO Rep #: [id number] : 1950 Provider: TAMMIE middleton Age/Sex: 74/M Location: [facility] Status: Signed HPI HPI History of Present Illness Details: This is a 74-year-old male presents to the office today for a cardiovascular follow-up visit. Patient status post TAVR by Dr. Reyes July 09, 2024. The patient had presented with recurrent heart failure with preserved ejection fraction. He now reports that his breathing has markedly improved he has not had to use any rescue inhaler since his TAVR. He is able to go up and down the stairs slowly he does have some issues with ambulation due to the lower extremity orthopedic issues. He actually has a history of chronic atrial fibrillation he has been on Coumadin long-term. The patient is aware of SBE prophylaxis. From a cardiac standpoint, the patient is doing well. He does use a rollator to help with ambulation. He denies any palpitations, chest pain, pressure or heaviness. He denies SOB, Orthopnea, and PND. He does not have bleeding issues; no blood in urine, stool, or nosebleeds. He denies any decrease in energy level, myalgias, or claudication. He does have bilateral lower extremity edema-he does wear compression stockings. He does not have sudden weight gain. He does have occasional lightheadedness with quick positional changes. He denies dizziness, syncopal or near syncopal episodes, and headaches. Intake Vital Signs 08/26/24 10:44 11/14/24 08:56 03/17/25 07:33 Height 5 ft 11 in 6 ft 6 ft Weight: 245 lb BMI 33.2 BP 130/74 H Blood Pressure Location Lt brachial Position Sitting Respiration 18 Pulse 52 L Pulse Source Monitor Pulse Oximetry (%) 97 Intake Visit Reasons: 6 M FU [employer] Required: No Is patient in pain?: No Allergies pramoxine Allergy (Verified 03/17/25 16:02) Rash Medications ???Medication ???Instructions ???Recorded ???Confirmed ???Type simvastatin 10 mg tablet 10 mg PO QHS cholesterol 09/06/22 03/17/25 History terazosin 2 mg capsule 2 mg PO QHS prostate 09/06/22 05/0 04/06 History lidocaine 5 % topical patch 1 patch topical DAILY pain #15 ea 09/08/22 03/17/25 Rx albuterol sulfate 90 mcg/actuation 1 puff inhalation Q4H PRN SOB 03 /28/24 05/05/25 History aerosol inhaler tiotropium 2.5 mcg-olodaterol 2.5 1 puff inhalation BID breathing 0 02/08/24 03/17/25 History mcg/actuation mist for inhalation (Stiolto Respimat) acetaminophen 500 mg tablet 1,000 mg (2 x 500 mg) PO Q8 #0 tab s 03/06/24 03/17/25 Rx sennosides 8.6 mg-docusate sodium 2 tab PO BID 30 days #120 tabs 03/17/25 Rx 50 mg tablet (Stool Softener-Stimulant Laxative) ferrous sulfate 325 mg (65 mg 325 mg PO QDAY 03/25/24 03/17/25 H istory iron) tablet (FeroSul) oxycodone 10 mg tablet 10 mg PO TID PRN pain 03/25/2404/06 History warfarin 5 mg tablet 5 mg PO .COMPLEX #180 tabs 02/11/ 5 03/17/25 Rx furosemide 80 mg tablet 80 mg PO QDAY 03/17/25 03/17/25 Hi story Ejection fraction %: 60 Have you fallen in the past year?: No PFSH Medical History Aortic stenosis 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 RAFAEL on CPAP Chronic pain syndrome HLD (hyperlipidemia) Obesity (HFpEF) heart failure with preserved ejection fraction Longstanding persistent atrial fibrillation History of atrial fibrillation Anemia Congestive heart failure Medical non-compliance Compression fx, thoracic spine Hypertension Former smoker COPD (chronic obstructive pulmonary disease) Surgical History S/P TAVR (transcatheter aortic valve replacement) History of bilateral cataract extraction History of cardiac radiofrequency ablation (RFA) History of tonsillectomy and adenoidectomy Family History Mother Cancer Father CAD (coronary artery disease) Heart disease Hypertension Myocardial infarction Social History household members: family Smoking Status: Former smoker how long ago did patient quit smoking: Quit 35 yrs prior. alcohol intake: never substance use type: does not use ROS Const Const: Negative for fatigue, weakness, headache(s) or frequent falls Eyes Eyes: Negative for blurry vision ENT ENT: Negative for headache(s), dizziness or Nosebleed/epistaxis Cardio Chest Pain: No Palpitations: No Edema: Bilateral (seeping) Muscle aches with walking: None Resp Respiratory: Negative for SOB with activity, SOB (more content not included)... Normal [facility] normalized rat io (INR) calculationOrdered By: Shady Obrien on 03-10-2025 INR Coag (Bld) [Relative time] 2.5 {INR} [facility] Prothrombin Time w/INRon INR Coag (PPP) [Relative time] 2.5 {INR} Normal [facility] Comment on above: Performed By: #### L 300.3900 #### [facility] [address] [place], [place], [phone] PT Coag (PPP) [Time] 27.3 s High 11.7-14.9 [facility] Comment on above: Performed By: #### L 300.3900 #### [facility] [address] [place], [place], [phone] Prothrombin timeOrdered By: Shady Obrien on 03-10-2025 PT Coag (PPP) [Time] 27.3 s High 11.7-14.9 [facility] normalized rat io (INR) calculationOrdered By: Shady Obrien on 02-03-2025 INR Coag (Bld) [Relative time] 2.6 {INR} [facility] Prothrombin Time w/INRon INR Coag (PPP) [Relative time] 2.6 {INR} Normal [facility] Comment on above: Performed By: #### L 300.3900 #### [facility] [address] [place], [place], [phone] ([phone] PT Coag (PPP) [Time] 28.3 s High 11.7-14.9 [facility] Comment on above: Performed By: #### L 300.3900 #### [facility] [address] [place], [place], [phone] Prothrombin timeOrdered By: Shady Obrien on 02-03-2025 PT Coag (PPP) [Time] 28.3 s High 11.7-14.9 [facility] normalized rat io (INR) calculationOrdered By: Shady Obrien on 01-07-2025 INR Coag (Bld) [Relative time] 1.8 {INR} [facility] Prothrombin Time w/INRon INR Coag (PPP) [Relative time] 1.8 {INR} Normal [facility] Comment on above: Performed By: #### L 300.3900 #### [facility] [address] [place], [place], [id number] PT Coag (PPP) [Time] 21.3 s High 11.7-14.9 [facility] Comment on above: Performed By: #### L 300.3900 #### [facility] [address] [place], [place], [address] Prothrombin timeOrdered By: Shady Obrien on 01-07-2025 PT Coag (PPP) [Time] 21.3 s High 11.7-14.9 [facility] [id number] DOrdered By: Grecia Sutton on 12-10-2024 Vitamin D 25-Hydroxy 41.2 ng/mL [facility] Comment on above: Vitamin D 25(OH) Sta tus Range Deficiency <20 ng/mL (50nmol/L) Insufficiency 20 - 30 ng/mL (50 - 75 nmol/L) Sufficiency 30 - 100 ng/mL (75 - 250 nmol/L) Toxicity >100 ng/mL (>250 nmol/L) Absolute lymphocyte countOrd ered By: Freedom Sutton on 12-10-2024 Lymphocytes Auto (Unsp spec) [#/Vol] 1.66 10*3/uL 0.83-4.51 [facility] Absolute neutrophil countOrd ered By: Freedom Sutton on 12-10-2024 Neutrophils (Bld) [#/Vol] 4.0 10*3/uL 2.0-7.7 [facility] Albumin to globulin ratioOrd ered By: Freedom Sutton on 12-10-2024 Albumin/Globulin [Mass ratio] 0.7 {ratio} Low 0.9-2.4 [facility] Automated lymphocyte count a s percentage of total leukocytesOrdered By: Freedom Sutton on 12-10-2024 Lymphocytes/100 WBC Auto (Unsp spec) 24.7 % 19-41 [facility] Basophil percentageOrdered B y: Freedom Herman on 12-10-2024 Basophils/100 WBC (Bld) 1.2 % High 0-1 [facility] Bilirubin, totalOrdered By: Freedom Sutton on 12-10-2024 Bilirubin [Mass/Vol] 0.60 mg/dL 0.20-1.00 [facility] Comment on above: For patients on eltr ombopag therapy, use of Dimension [place] TBIL is not recommended. Blood urea nitrogen (BUN)/cr eatinine ratioOrdered By: Freedom Herman on 12-10-2024 Urea nitrogen/Creatinine [Mass ratio] 22.2 mg/mg High 10-20 [facility] CBC W/Diff, Automatedon 11-14 Absolute Lymph 1.66 X10 3/uL Normal 0.83-4.51 [facility] Comment on above: Performed By: #### L 100.0100, L500.4050, L500.4100, L501.9520, L506.1000 #### [facility] [address] [place], [address] Absolute Neut 4.0 X10 3/uL Normal 2.0-7.7 [facility] Comment on above: Performed By: #### L 100.0100, L500.4050, L500.4100, L501.9520, L506.1000 #### [facility] [address] [place], [address] Basophils/100 WBC (Bld) 1.2 % High 0-1 [facility] Comment on above: Performed By: #### L 100.0100, L500.4050, L500.4100, L501.9520, L506.1000 #### [facility] [address] [place], [address] Eosinophils/100 WBC (Bld) 2.8 % Normal 0-5 [facility] Comment on above: Performed By: #### L 100.0100, L500.4050, L500.4100, L501.9520, L506.1000 #### [facility] [address] [place], [address] Erythrocyte distribution width (RBC) [Ratio] 14.0 % Normal 11.6-14.6 [facility] Comment on above: Performed By: #### L 100.0100, L500.4050, L500.4100, L501.9520, L506.1000 #### [facility] [address] [place], [address] Hematocrit (Bld) [Volume fraction] 35.5 % Low 40-54 [facility] Comment on above: Performed By: #### L 100.0100, L500.4050, L500.4100, L501.9520, L506.1000 #### [facility] [address] [place], [address] Hemoglobin (Bld) [Mass/Vol] 11.4 g/dL Low 13.0-16.5 [facility] Comment on above: Performed By: #### L 100.0100, L500.4050, L500.4100, L501.9520, L506.1000 #### [facility] [address] [place], [address] IG% 0.300 Normal 0.0-0.9 [facility] Comment on above: Result Comment: IG% - Immature Granulocytes (promyelocytes, myelocytes and metamyelocytes) > 1% indicates that a LEFT SHIFT is Present. Performed By: #### L 100.0100, L500.4050, L500.4100, L501.9520, L506.1000 #### [facility] [address] [place], [address] Lymphocytes/100 WBC (Bld) 24.7 % Normal 19-41 [facility] Comment on above: Performed By: #### L 100.0100, L500.4050, L500.4100, L501.9520, L506.1000 #### [facility] [address] [place], [address] MCH (RBC) [Entitic mass] 29.4 pg Normal 27.0-32.0 [facility] Comment on above: Performed By: #### L 100.0100, L500.4050, L500.4100, L501.9520, L506.1000 #### [facility] [address] [place], [address] MCHC (RBC) [Mass/Vol] 32.1 g/dL Normal 32-36 [facility] Comment on above: Performed By: #### L 100.0100, L500.4050, L500.4100, L501.9520, L506.1000 #### [facility] [address] [place], [address] MCV (RBC) [Entitic vol] 91.5 fL Normal 80-94 [facility] Comment on above: Performed By: #### L 100.0100, L500.4050, L500.4100, L501.9520, L506.1000 #### [facility] [address] [place], [address] Monocytes/100 WBC (Bld) 11.8 % High 0-10 [facility] Comment on above: Performed By: #### L 100.0100, L500.4050, L500.4100, L501.9520, L506.1000 #### [facility] [address] [place], [address] Neutrophils/100 WBC (Bld) 59.2 % Normal 47-70 [facility] Comment on above: Performed By: #### L 100.0100, L500.4050, L500.4100, L501.9520, L506.1000 #### [facility] [address] [place], [address] Nucleated RBC (Bld) [#/Vol] 0 10*3/uL Normal 0-5 [facility] Comment on above: Performed By: #### L 100.0100, L500.4050, L500.4100, L501.9520, L506.1000 #### [facility] [address] [place], [address] Platelet mean volume (Bld) [Entitic vol] 10.3 fL Normal 6.2-12.0 [facility] Comment on above: Performed By: #### L 100.0100, L500.4050, L500.4100, L501.9520, L506.1000 #### [facility] [address] [place], [address] Platelets (Bld) [#/Vol] 169 10*3/uL Normal 150-450 [facility] Comment on above: Performed By: #### L 100.0100, L500.4050, L500.4100, L501.9520, L506.1000 #### [facility] [address] [place], [address] RBC (Bld) [#/Vol] 3.88 10*6/uL Low 4.6-6.2 [facility] Comment on above: Performed By: #### L 100.0100, L500.4050, L500.4100, L501.9520, L506.1000 #### [facility] [address] [place], [address] RDW SD 47.4 fl High 35.1-43.9 [facility] Comment on above: Performed By: #### L 100.0100, L500.4050, L500.4100, L501.9520, L506.1000 #### [facility] [address], [address] WBC (Bld) [#/Vol] 6.7 10*3/uL Normal 4.4-11.0 [facility] Comment on above: Performed By: #### L 100.0100, L500.4050, L500.4100, L501.9520, L506.1000 #### [facility] [address] [place], [address] Carbon dioxide measurementOr dered By: Freedom Sutton on 12-10-2024 CO2 [Moles/Vol] 30.0 mmol/L 21.0-32.0 [facility] Chloride measurementOrdered By: Freedom Sutton on 12-10-2024 Chloride [Moles/Vol] 105 mmol/L 98-107 [facility] Comprehensive Metabolic Prof ilon 12-10-2024 Albumin [Mass/Vol] 3.2 g/dL Normal 3.2-5.0 [facility] Comment on above: Performed By: #### L 100.0100, L500.4050, L500.4100, L501.9520, L506.1000 #### [facility] [address], [address] Albumin/Globulin [Mass ratio] 0.7 {ratio} Low 0.9-2.4 [facility] Comment on above: Performed By: #### L 100.0100, L500.4050, L500.4100, L501.9520, L506.1000 #### [facility] [address] [place], [address] ALK P 110 U/L Normal 45-117 [facility] Comment on above: Performed By: #### L 100.0100, L500.4050, L500.4100, L501.9520, L506.1000 #### [facility] [address] [place], [address] ALT [Catalytic activity/Vol] 20 U/L Normal 16-61 [facility] Comment on above: Performed By: #### L 100.0100, L500.4050, L500.4100, L501.9520, L506.1000 #### [facility] [address] [place], [address] AST [Catalytic activity/Vol] 21 U/L Normal 15-37 [facility] Comment on above: Performed By: #### L 100.0100, L500.4050, L500.4100, L501.9520, L506.1000 #### [facility] [address] [place], [address] Bilirubin [Mass/Vol] 0.60 mg/dL Normal 0.20-1.00 [facility] Comment on above: Result Comment: For patients on eltrombopag therapy, use of Dimension [place] TBIL is not recommended. Performed By: #### L 100.0100, L500.4050, L500.4100, L501.9520, L506.1000 #### [facility] [address] [place], [address] BUN/CRE 22.2 RATIO High 10-20 [facility] Comment on above: Performed By: #### L 100.0100, L500.4050, L500.4100, L501.9520, L506.1000 #### [facility] [address] [place], [address] CA,Total 9.4 mg/dL Normal 8.5-10.1 [facility] Comment on above: Performed By: #### L 100.0100, L500.4050, L500.4100, L501.9520, L506.1000 #### [facility] [address] [place], [address] Chloride [Moles/Vol] 105 mmol/L Normal 98-107 [facility] Comment on above: Performed By: #### L 100.0100, L500.4050, L500.4100, L501.9520, L506.1000 #### [facility] [address] [place], [address] CO2 [Moles/Vol] 30.0 mmol/L Normal 21.0-32.0 [facility] Comment on above: Performed By: #### L 100.0100, L500.4050, L500.4100, L501.9520, L506.1000 #### [facility] [address] [place], [address] Creatinine [Mass/Vol] 0.81 mg/dL Normal 0.70-1.30 [facility] Comment on above: Result Comment: The validity of the calculated GFR GFRAA in patients over 70 years has not been determined. Clinical correlation is essential. Performed By: #### L 100.0100, L500.4050, L500.4100, L501.9520, L506.1000 #### [facility] [address] [place], [address] EST GFR - AA 119 mL/min Normal >60 [facility] Comment on above: Result Comment: Afri can Jamaican GFR Calc Performed By: #### L 100.0100, L500.4050, L500.4100, L501.9520, L506.1000 #### [facility] [address] [place], [address] GAP 5 Normal 5-15 [facility] Comment on above: Performed By: #### L 100.0100, L500.4050, L500.4100, L501.9520, L506.1000 #### [facility] [address] [place], [address] GFR/1.73 sq M.predicted among non-blacks MDRD (S/P/Bld) [Vol rate/Area] 99 mL/min/{1.73_m2} Normal >60 [facility] Comment on above: Result Comment: Non- GFR Calc Performed By: #### L 100.0100, L500.4050, L500.4100, L501.9520, L506.1000 #### [facility] [address] [place], [address] Globulin (S) [Mass/Vol] 4.6 g/dL High 2.2-4.2 [facility] Comment on above: Performed By: #### L 100.0100, L500.4050, L500.4100, L501.9520, L506.1000 #### [facility] [address] [place], [address] Glucose [Mass/Vol] 101 mg/dL Normal 74-106 [facility] Comment on above: Result Comment: Fast ing Glucose result from 100 to 125 mg/dL suggests IMPAIRED HOMEOSTASIS per A.D.A. criteria. Performed By: #### L 100.0100, L500.4050, L500.4100, L501.9520, L506.1000 #### [facility] [address] [place], [address] Potassium [Moles/Vol] 3.7 mmol/L Normal 3.5-5.1 [facility] Comment on above: Performed By: #### L 100.0100, L500.4050, L500.4100, L501.9520, L506.1000 #### [facility] [address] [place], [address] Sodium [Moles/Vol] 140 mmol/L Normal 136-145 [facility] Comment on above: Performed By: #### L 100.0100, L500.4050, L500.4100, L501.9520, L506.1000 #### [facility] [address] [place], [address] T PROT 7.8 g/dL Normal 6.4-8.2 [facility] Comment on above: Performed By: #### L 100.0100, L500.4050, L500.4100, L501.9520, L506.1000 #### [facility] [address] [place], [address] Urea nitrogen [Mass/Vol] 18 mg/dL Normal 7-18 [facility] Comment on above: Performed By: #### L 100.0100, L500.4050, L500.4100, L501.9520, L506.1000 #### [facility] [address] [place], [address] Eosinophil percentageOrdered By: Freedom Sutton on 12-10-2024 Eosinophils/100 WBC (Bld) 2.8 % 0-5 [facility] Erythrocyte distribution wid th ratioOrdered By: Freedom Sutton on 12-10-2024 Erythrocyte distribution width (RBC) [Ratio] 14.0 % 11.6-14.6 [facility] Erythrocyte distribution wid th standard deviationOrdered By: Freedom Sutton on 12-10-2024 Erythrocyte distribution width (RBC) [Entitic vol] 47.4 fL High 35.1-43.9 [facility] Erythrocyte distribution width (RBC) [Ratio] 47.4 fl High 35.1-43.9 [facility] Estimated glomerular filtrat ion rate (GFR) AmericanOrdered By: Freedom Sutton on 12-10-2024 Estimated GFR (MDRD) Amer 119 mL/min >60 [facility] Comment on above: GFR Calc Glomerular filtration rate ( GFR) estimationOrdered By: Freedom Sutton on 12-10-2024 Estimated GFR (MDRD) Non-Af Amer 99 mL/min >60 [facility] Comment on above: Non- GFR Calc GFR/1.73 sq M.predicted among non-blacks MDRD (S/P/Bld) [Vol rate/Area] 99 mL/min/{1.73_m2} >60 [facility] Comment on above: Non- GFR Calc Glucose measurementOrdered B y: Freedom Sutton on 12-10-2024 Glucose [Mass/Vol] 101 mg/dL 74-106 [facility] Comment on above: Fasting Glucose resu lt from 100 to 125 mg/dL suggests IMPAIRED HOMEOSTASIS per A.D.A. criteria. Hematocrit Auto (Bld) [Volum e fraction]Ordered By: Freedom Sutton on 12-10-2024 Hematocrit (Bld) [Volume fraction] 35.5 % Low 40-54 [facility] Hemoglobin measurementOrdere d By: Freedom Sutton on 12-10-2024 Hemoglobin (Bld) [Mass/Vol] 11.4 g/dL Low 13.0-16.5 [facility] High density lipoprotein (HD L) measurementOrdered By: Freedom Sutton on 12-10-2024 Cholesterol in HDL [Mass/Vol] 71 mg/dL >40 [facility] Comment on above: The drugs N-Acetylcy steine and Metamizole may falsely depress this assay. Reference Range HDL <40 mg/dL Low HDL Cholesterol HDL >or= 60 mg/dL High HDL Cholesterol Immature granulocytes/100 WB C Auto (Bld)Ordered By: Freedom Sutton on 12-10-2024 Immature granulocytes/100 WBC (Bld) 0.300 % 0.0-0.9 [facility] Comment on above: IG% - Immature Granu locytes (promyelocytes, myelocytes and metamyelocytes) > 1% indicates that a LEFT SHIFT is Present. International normalized rat io (INR) calculationOrdered By: Shady Obrien on 12-10-2024 INR Coag (Bld) [Relative time] 1.9 {INR} [facility] - Chemistry and C hemistry - challengeOrdered By: Freedom Sutton on 12-10-2024 AST [Catalytic activity/Vol] 21 U/L 15-37 [facility] Lipid Profileon 12-10-2024 Cholesterol [Mass/Vol] 107 mg/dL Normal 200 [facility] Comment on above: Result Comment: <200 mg/dL Desirable 200-240 mg/dL Borderline >240 mg/dL High Risk Performed By: #### L 912.2975 #### [facility] [place], [address] Cholesterol in HDL [Mass/Vol] 71 mg/dL Normal [facility] Comment on above: Result Comment: The drugs N-Acetylcysteine and Metamizole may falsely depress this assay. Reference Range HDL <40 mg/dL Low HDL Cholesterol HDL >or= 60 mg/dL High HDL Cholesterol Performed By: #### L 300.3900 #### [facility] [address] [place], [address] Cholesterol in LDL [Mass/Vol] 25 mg/dL Normal 0-130 [facility] Comment on above: Performed By: #### L 300.3900 #### [facility] [address] [place], [address] Cholesterol in VLDL [Mass/Vol] 11 mg/dL Normal 5-40 [facility] Comment on above: Performed By: #### L 300.3900 #### [facility] [address] [place], [address] Triglyceride [Mass/Vol] 53 mg/dL Normal [facility] Comment on above: Result Comment: The drugs N-Acetylcysteine and Metamizole may falsely depress this assay. Serum Triglycerides Reference Interval Normal <150 mg/dL Borderline high 150 - 199 mg/dL High 200 - 499 mg/dL Very High > or = 500 mg/dL Performed By: #### L 300.3900 #### [facility] [address] [place], [address] Low density lipoprotein (LDL ) cholesterol measurementOrdered By: Freedom Sutton on 12-10-2024 Cholesterol in LDL [Mass/Vol] 25 mg/dL 0-130 [facility] Lymphocytes Auto (Unsp spec) [#/Vol]Ordered By: Freedom Sutton on 12-10-2024 Lymphocytes (Bld) [#/Vol] 1.66 10*3/uL 0.83-4.5 1 [facility] Lymphocytes/100 WBC Auto (Un sp spec)Ordered By: Freedom Sutton on 12-10-2024 Lymphocytes/100 WBC (Bld) 24.7 % 19-41 [facility] MCV (mean corpuscular volume ) determinationOrdered By: Freedom Sutton on 12-10-2024 MCV (RBC) [Entitic vol] 91.5 fL 80-94 [facility] Mean corpuscular hemoglobin (MCH) determinationOrdered By: Freedom Sutton on 12-10-2024 MCH (RBC) [Entitic mass] 29.4 pg 27.0-32.0 [facility] Mean corpuscular hemoglobin concentration (MCHC) determinationOrdered By: Freedom Sutton on 12-10-2024 MCHC (RBC) [Mass/Vol] 32.1 g/dL 32-36 [facility] Mean platelet volume determi nationOrdered By: Freedom Sutton on 12-10-2024 Platelet mean volume (Bld) [Entitic vol] 10.3 fL 6.2-12.0 [facility] Monocyte percentageOrdered B y: Freedom Israelok on 12-10-2024 Monocytes/100 WBC (Bld) 11.8 % High 0-10 [facility] Neutrophil percentageOrdered By: Freedom Sutton on 12-10-2024 Neutrophils/100 WBC (Bld) 59.2 % 47-70 [facility] Nucleated red blood cell per centageOrdered By: Freedom Sutton on 12-10-2024 Nucleated RBC/100 WBC (Bld) [Ratio] 0 % 0-5 [facility] Platelet countOrdered By: Nico Sutton on 12-10-2024 Platelets (Bld) [#/Vol] 169 10*3/uL 150-450 [facility] Potassium measurementOrdered By: Freedom Sutton on 12-10-2024 Potassium [Moles/Vol] 3.7 mmol/L 3.5-5.1 [facility] Prothrombin Time w/INRon INR Coag (PPP) [Relative time] 1.9 {INR} Normal [facility] Comment on above: Order Comment: Comme nts: STANDING ORDER Performed By: #### L 851.2433 #### [facility] [address] [place], [place], [id number] Prothrombin timeOrdered By: Shady Obrien on 12-10-2024 PT Coag (PPP) [Time] 21.8 s High 11.7-14.9 [facility] Comment on above: Order Comment: Vance nts: STANDING ORDER Performed By: #### L 706.5919 #### [facility] [place], [address] RBC Auto (Bld) [#/Vol]Ordere d By: Freedom Sutton on 12-10-2024 RBC (Bld) [#/Vol] 3.88 10*6/uL Low 4.6-6.2 [facility] Serum anion gap measurementO rdered By: Freedom Sutton on 12-10-2024 Anion gap [Moles/Vol] 5 mmol/L 5-15 [facility] Serum globulin measurementOr dered By: Freedom Sutton on 12-10-2024 Globulin (S) [Mass/Vol] 4.6 g/dL High 2.2-4.2 [facility] Serum or plasma alanine rhodes otransferase (ALT) measurementOrdered By: Freedom Sutton 12-10-2024 ALT [Catalytic activity/Vol] 20 U/L 16-61 [facility] Serum or plasma albumin sawyer urement (mass/volume)Ordered By: Freedom Sutton 12-10-2024 Albumin [Mass/Vol] 3.2 g/dL 3.2-5.0 [facility] Serum or plasma alkaline rafita sphatase measurementOrdered By: Freedom Sutton 12-10-2024 ALP [Catalytic activity/Vol] 110 U/L 45-117 [facility] Serum or plasma calcium sawyer urement (mass/volume)Ordered By: Freedom Sutton 12-10-2024 Calcium [Mass/Vol] 9.4 mg/dL 8.5-10.1 [facility] Serum or plasma cholesterol measurement (mass/volume)Ordered By: Freedom Sutton 12-10-2024 Cholesterol [Mass/Vol] 107 mg/dL <200 [facility] Comment on above: <200 mg/dL Desirable 200-240 mg/dL Borderline >240 mg/dL High Risk Serum or plasma creatinine m easurement (mass/volume)Ordered By: Freedom Sutton 12-10-2024 Creatinine [Mass/Vol] 0.81 mg/dL 0.70-1.30 [facility] Comment on above: The validity of the calculated GFR & GFRAA in patients over 70 years has not been determined. Clinical correlation is essential. Serum or plasma thyroid stim ulating hormone (TSH) measurement (units/volume)Ordered By: Freedom Sutton on 12-10-2024 TSH Qn 1.000 uIU/mL 0.358-3.740 [facility] Serum or plasma urea nitroge n measurement (mass/volume)Ordered By: Freedom Sutton on 12-10-2024 Urea nitrogen [Mass/Vol] 18 mg/dL 7-18 [facility] Sodium levelOrdered By: Freedom Sutton on 12-10-2024 Sodium [Moles/Vol] 140 mmol/L 136-145 [facility] TSH QnOrdered By: Freedom Sutton o n 12-10-2024 Thyroid Stimulating Hormone (TSH) 1.000 uIU/mL 0.358-3.740 [facility] Thyroid Stim Hormone (TSH)on 12-10-2024 TSH 1.000 uIU/mL Normal 0.358-3.740 [facility] Comment on above: Performed By: #### L 300.3900 #### [facility] [address] [place] [address]. [place], [place], [id number] Total proteinOrdered By: Freedom Sutton on 12-10-2024 Protein [Mass/Vol] 7.8 g/dL 6.4-8.2 [facility] Triglycerides measurementOrd ered By: Freedom Sutton on 12-10-2024 Triglyceride [Mass/Vol] 53 mg/dL <199 [facility] Comment on above: The drugs N-Acetylcy steine and Metamizole may falsely depress this assay.Serum Triglycerides Reference Interval Normal <150 mg/dL Borderline high 150 - 199 mg/dL High 200 - 499 mg/dL Very High > or = 500 mg/dL Very low density lipoprotein (VLDL) cholesterol measurementOrdered By: Freedom Sutton on 12-10-2024 Very low density lipoprotein (VLDL) cholesterol measurement 11 mg/dL 5-40 [facility] VLDL Cholesterol 11 mg/dL 5-40 [facility] Vitamin D,25 Hydroxyon 12-10 Vitamin D 25-OH 41.2 ng/mL Normal [facility] Comment on above: Result Comment: Inge min D 25(OH) Status Range Deficiency <20 ng/mL (50nmol/L) Insufficiency 20 - 30 ng/mL (50 - 75 nmol/L) Sufficiency 30 - 100 ng/mL (75 - 250 nmol/L) Toxicity >100 ng/mL (>250 nmol/L) Performed By: #### L 100.0100, L500.4050, L500.4100, L501.9520, L506.1000 #### [facility] [address] [place], [address] White blood cell (WBC) count Ordered By: Freedom Sutton on 12-10-2024 WBC (Bld) [#/Vol] 6.7 10*3/uL 4.4-11.0 [facility] L3410.9999on 11-24-2024 [facility] Misc. COMMENT Normal . [facility] Comment on above: Order Comment: [id number] 3URINE TOX Result Comment: Test Ordered: [id number] 6+Oxycodone-Bund Amphetamines, Urine Negative ng/mL UI Reference Range: Fnlwye=1884 Amphetamine test includes Amphetamine and Methamphetamine. Barbiturate Negative ng/mL UI Reference Range: Mevngj=102 Benzodiazepines Negative ng/mL UI Reference Range: Xwqhuh=741 Cannabinoids Negative ng/mL UI Reference Range: Cutoff=20 Cocaine (Metabolite) Negative ng/mL UI Reference Range: Xehtpw=202 Opiates Note: ng/mL UI See Final Results Reference Range: Beovxq=349 Opiate test includes Codeine, Morphine, Hydromorphone, Hydrocodone. Opiates Negative ng/mL UI Reference Range: Wqnnlu=527 Opiate test includes Codeine, Morphine, Hydromorphone, Hydrocodone. Confirmation performed by Mass Spectrometry Oxycodone/Oxymorphone, Urine Note: ng/mL UI See Final Results Reference Range: Nmfyfm=253 Test includes Oxycodone and Oxymorphone Oxycodone/Oxymorph Positive [A ] UI Reference Range: Sywcbo=196 Test includes Oxycodone and Oxymorphone Oxycodone Positive [A ] UI Reference Range: . Oxycodone Conf, MS, UR 1644 ng/mL UI Reference Range: Wykuzz=432 Oxymorphone Positive [A ] UI Reference Range: . Oxymorphone Conf, MS, UR 448 ng/mL UI Reference Range: Mkrsno=747 Performed at: - [facility] [address] [place], [place] [id number] Food Product Inspector: Estefany Camargo PhD, Phone: [phone] Performed at: - [facility] [address] [id number] Food Product Inspector: Manohar Pathak PhD, Phone: [phone] Performed By: #### L 565.3900 #### [facility] [address] [place], [place], [address] International normalized rat io (INR) calculationOrdered By: Shady Obrien on 11-18-2024 INR Coag (Bld) [Relative time] 1.8 {INR} [facility] Methadone, urineOrdered By: Shady Obrien on 11-18-2024 Urine Methadone Screen Negative < 300 ng/mL [facility] No Panel InformationOrdered By: Shady Obrien on 11-18-2024 Miscellaneous Test COMMENT . [facility] Comment on above: Test Ordered: [id number] 6+Oxycodone-BundAmphetamines, Urine Negative ng/mL UI Reference Range: Tkokxc=5060Pqlekoalvoa test includes Amphetamine and Methamphetamine.Barbiturate Negative ng/mL UI Reference Range: Byemte=834Khiikakkwwjaddv Negative ng/mL UI Reference Range: Harifr=921Oyhwyigrnvzb Negative ng/mL UI Reference Range: Cutoff=20Cocaine (Metabolite) Negative ng/mL UI Reference Range: Sxwunm=778Bhknqar Note: ng/mL UI See Final Results Reference Range: Viuvrr=584Pzbsyq test includes Codeine, Morphine, Hydromorphone, Hydrocodone.Opiates Negative ng/mL UI Reference Range: Yflvwg=829Kdxkiz test includes Codeine, Morphine, Hydromorphone, Hydrocodone.Confirmation performed by Mass SpectrometryOxycodone/Oxymorphone, Urine Note: ng/mL UI See Final Results Reference Range: Wdledv=021Vijy includes Oxycodone and OxymorphoneOxycodone/Oxymorph Positive [A ] UI Reference Range: Vpcitc=372Nuwo includes Oxycodone and OxymorphoneOxycodone Positive [A ] UI Reference Range: .Oxycodone Conf, MS, UR 1644 ng/mL UI Reference Range: Qscgod=984Bdzagbrkjbl Positive [A ] UI Reference Range: .Oxymorphone Conf, MS, UR 448 ng/mL UI Reference Range: Yjqlan=315Wppgrmsvx at: UI - [facility] [id number] [place], [place] [id number] Director: Estefany Camargo PhD, Phone: [phone] at: - [facility] [address] [place], [place] [id number] Director: Manohar Pathak PhD, Phone: [phone] Urine Drug Screen Comment [facility] Comment on above: CONFIRMATORY TESTING FOR ALL POSITIVE URINE DRUG SCREENRESULTS WILL ONLY BE SENT OUT UPON PHYSICIAN ORDER. VISTA Urine Drug Screen methods provide only preliminaryanalytical test results. A more specific alternate chemicalmethod must be used in order to obtain a confirmedanalytical result. Gas chromatography/mass spectrometery(GC/MS) is the preferred confirmatory method. Clinicalconsideration and professional judgement should be appliedto any drug of abuse test result, particularly whenpreliminary positive results are used. URINE TCA TESTING MUST BE ORDERED SEPARATELY. USE TESTMNEMONIC: [facility] Prothrombin Time w/INRon INR Coag (PPP) [Relative time] 1.8 {INR} Normal [facility] Comment on above: Performed By: #### L 300.3900 #### [facility] [address] [place], [place], [id number] PT Coag (PPP) [Time] 21.7 s High 11.7-14.9 [facility] Comment on above: Performed By: #### L 300.3900 #### [facility] [address] [place], [place], [id number] (483) Prothrombin timeOrdered By: Shady Obrien on 11-18-2024 PT Coag (PPP) [Time] 21.7 s High 11.7-14.9 [facility] Quantitative urine opiates m easurementOrdered By: Shady Obrien on 11-18-2024 Opiates Ql (U) Positive High < 300 ng/mL [facility] Urine Drug Screen (VISTA)on 11-18-2024 AMPHETAMINES Negative Normal <1000 ng/mL [facility] Comment on above: Order Comment: MEDTO X Performed By: #### L 300.3900 #### [facility] [address] [facility] [address] BARBITIURATES Negative Normal < 200 ng/mL [facility] Comment on above: Order Comment: MEDTO X Performed By: #### L 300.3900 #### [facility] [address] [facility] [address] BENZODIAZIPINE Negative Normal < 200 ng/mL [facility] Comment on above: Order Comment: MEDTO X Performed By: #### L 300.3900 #### [facility] [address] [place] [address] COCAINE Negative Normal < 300 ng/mL [facility] Comment on above: Order Comment: MEDTO X Performed By: #### L 300.3900 #### [facility] [address] [place] [address] ECSTACY Negative Normal < 500 ng/mL [facility] Comment on above: Order Comment: MEDTO X Performed By: #### L 300.3900 #### [facility] [address] [place] [address] METHADONE Negative Normal < 300 ng/mL [facility] Comment on above: Order Comment: MEDTO X Performed By: #### L 300.3900 #### [facility] [address] [place] [address] OPIATES Positive Abnormal < 300 ng/mL [facility] Comment on above: Order Comment: MEDTO X Performed By: #### L 300.3900 #### [facility] [address] [place] [id number] PCP Negative Normal < 25 ng/mL [facility] Comment on above: Order Comment: MEDTO X Performed By: #### L 300.3900 #### [facility] [address] [place], [place], [address] THC Negative Normal < 50 ng/mL [facility] Comment on above: Order Comment: MEDTO X Performed By: #### L 300.3900 #### [facility] [address] [place], [place], [address] VISTA UDS PH 6 Normal [facility] Comment on above: Order Comment: MEDTO X Performed By: #### L 300.3900 #### [facility] [address] [place], [address] Urine amphetamine measuremen tOrdered By: Shady Obrien on 11-18-2024 Amphetamines Ql (U) Negative <1000 ng/mL [facility] Urine barbiturates measureme ntOrdered By: Shady Obrien on 11-18-2024 Urine Barbiturates Screen Negative < 200 ng/m L [facility] Urine benzodiazepine levelOr dered By: Shady Obrien on 11-18-2024 Benzodiazepines Ql (U) Negative < 200 ng/mL [facility] Urine cocaine levelOrdered B y: Shady Obrien on 11-18-2024 Cocaine Ql (U) Negative < 300 ng/mL [facility] Urine hflnz-7-kofyhncootphyq abinol (THC) measurementOrdered By: Shady Obrien on 11-18-2024 Cannabinoids Screen Ql (U) Negative < 50 ng/mL [facility] Urine methylenedioxymethamph etamine (MDMA) measurementOrdered By: Shady Obrien on 11-18-2024 MDMA (Ecstasy) Screen Negative < 500 ng/mL [facility] Urine phencyclidine (PCP) de tectionOrdered By: Shady Obrien on 11-18-2024 Phencyclidine Ql (U) Negative < 25 ng/mL [facility] History AND Physic florencio 11-14-2024 Wound Ctr History & Physical [facility] [address] [place] [address] H P Exam - Wound Care 11/14/24 0937 MR#: [id number] Acct: [id number] Name: ANDER MONTEIRO Rep #: [id number] : 1950 74 From: Shady Ogden DPM PCP: Dr. Freedom Sutton MD Status:REG RCR Location: History of Present Illness Date of Service: 11/14/24 Chief Complaint: Venous stasis ulceration left lower extremity History of Wound: This is a 74-year-old male who presents to the wound care center for continued aid in healing of a venous stasis ulceration to the lateral aspect of the left lower extremity. Ulceration is secondary to chronic venous insufficiency and lower extremity edema. He had been unable to wear his compression stockings due to significant edema and previous heart failure. 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 This did lead to improvement in lower extremity edema however still does get swelling secondary to his chronic venous insufficiency which did lead to ulceration to the lateral aspect of the left leg. He had been undergoing local wound care in office over the course of 6 weeks with applications of Renuka however ulceration has failed to improve with this and compression stocking. He continues to change dressing daily with Renuka and does have visiting nursing to assist in dressing changes. States that he continues to wear his compression stocking and tries to elevate when possible. He does assist in care for his so elevation at all times of rest poses difficulty. Denies trauma to the leg. Denies N/V/F/chills/SOB. Denies further complaints. 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 RAFAEL on CPAP Chronic pain syndrome HLD (hyperlipidemia) Obesity (HFpEF) heart failure with preserved ejection fraction Longstanding persistent atrial fibrillation History of atrial fibrillation Anemia Congestive heart failure Medical non-compliance Compression fx, thoracic spine Hypertension Former smoker COPD (chronic obstructive pulmonary disease) Home Medications ???Medication ???Instructions ???Recorded ???Last Taken ???Type simvastatin 10 mg tablet 10 mg PO QHS cholesterol 09/06/22 02/22/24 History terazosin 2 mg capsule 2 mg PO QHS prostate 09/06/22 02/22/24 History lidocaine 5 % topical patch 1 patch topical DAILY pain #15 ea 09/08/22 06/03/24 Rx albuterol sulfate 90 mcg/actuation 1 puff inhalation Q4H PRN SOB 02/08/24 02/23/24 History aerosol inhaler tiotropium 2.5 mcg-olodaterol 2.5 1 puff inhalation BID breathing 02/08/24 Unknown History mcg/actuation mist for inhalation (Stiolto Respimat) acetaminophen 500 mg tablet 1,000 mg (2 x 500 mg) PO Q8 #0 tabs 03/06/24 Unknown Rx sennosides 8.6 mg-docusate sodium 2 tab PO BID 30 days #120 tabs 03/06/24 Unknown Rx 50 mg tablet (Stool Softener-Stimulant Laxative) warfarin 1 mg tablet (Jantoven) 0.5 mg PO DINNER 30 days #15 tabs 03/06/24 05/27/24 Rx warfarin 4 mg tablet (Jantoven) 4 mg PO DINNER 30 days #30 tabs 03/06/24 05/27/24 Rx ferrous sulfate 325 mg (65 mg 325 mg PO QDAY 03/25/24 Unknown History iron) tablet (FeroSul) oxycodone 10 mg tablet 10 mg PO TID PRN pain 03/25/24 06/03/24 History furosemide 40 mg tablet mg PO QDAY 08/26/24 Unknown History Allergy/AdvReac Type Severity Reaction Status Date / Time pramoxine Allergy Rash Verified 08/26/24 10:46 Family History Mother Cancer Father CAD (coronary artery disease) Heart disease Hypertension Myocardial infarction Surgical History S/P TAVR (transcatheter aortic valve replacement) History of bilateral cataract extraction History of cardiac radiofrequency ablation (RFA) History of tonsillectomy and adenoidectomy Social History household members: family Smoking Status: Former smoker how long ago did patient quit smoking: Quit 35 yrs prior. alcohol intake: never substance use type: does not use ROS Constitutional Constitutional: Denies anorexia, chills, fatigue or fever(s) Eyes Eyes: Denies blurry vision, change in vision or double vision ENT HEENT: Denies dysphagia, nasal congestion, nasal discharge or sore throat Cardiovascular Cardiovascular: Denies chest pain, claudication or palpitations Respiratory/Chest Respiratory/Chest: Denies cough, productive cough or shortness of breath at rest Gastrointestinal Gastrointestinal: Denies abdominal pain, constipation, diarrhea, nausea or vomiting Genitourinary Genitourinary: Denies dysuria, hematuria or urinary frequency Musculoskeletal Musculoskeletal: Denies joint pain, join (more content not included)... Normal [facility] Influenza virus A and B and SARS-CoV-2 (COVID-19) and Respiratory syncytial virus RNAOrdered By: Freedom Sutton on 10-30-2024 SARS-CoV-2 (COVID-19) RNA BUCK+probe Ql (Unsp spec) [facility] International normalized rat io (INR) calculationOrdered By: Shady Obrien on 10-30-2024 INR Coag (Bld) [Relative time] 2.0 {INR} [facility] M100.678on 10-30-2024 M100.678 Pending SARS-CoV-2 (COVID 19) Negative INFLUENZA A Negative INFLUENZA B Negative RSV PCR Negative Normal [facility] Comment on above: Performed By: #### L 300.3900 #### [facility] [address] [place], [place], [phone] ([phone] Prothrombin Time w/INRon INR Coag (PPP) [Relative time] 2.0 {INR} Normal [facility] Comment on above: Performed By: #### L 300.3900 #### [facility] [address] [place], [address] PT Coag (PPP) [Time] 22.7 s High 11.7-14.9 [facility] Comment on above: Performed By: #### L 300.3900 #### [facility] [address] [place], [address] Prothrombin timeOrdered By: Shady Obrien on 10-30-2024 PT Coag (PPP) [Time] 22.7 s High 11.7-14.9 [facility] 36on 10-29-2024 36 Patient completed ec ho 10/1/24. Does not need another echo until 06/2025. Spoke with patient and communicated details. Cancelled echocardiogram orders. Normal [facility] 36 We have been unable to reach your patient to schedule their testing. Test Name: Echocardiogram 1st Attempt: Sw pt needed to call back and speak to son 2nd Attempt: called son Son Yariel wants to know if his dad can be seen in [facility] for the Echo and he said you would know what he was talking about. Thank you, Normal [facility] Prothrombin Time w/INRon INR Coag (PPP) [Relative time] 2.0 {INR} Normal [facility] Comment on above: Performed By: #### L 300.3900 #### [facility] [address] [place], [address] PT Coag (PPP) [Time] 22.7 s High 11.7-14.9 [facility] Comment on above: Performed By: #### L 300.3900 #### [facility] [address] [place], [address] CBC W/Diff, Automatedon - Absolute Lymph 1.01 X10 3/uL Normal 0.83-4.51 [facility] Comment on above: Performed By: #### L 300.3900 #### [facility] [address] [place], [address] Absolute Neut 3.7 X10 3/uL Normal 2.0-7.7 [facility] Comment on above: Performed By: #### L 300.3900 #### [facility] [address] [place], [address] Basophils/100 WBC (Bld) 1.7 % High 0-1 [facility] Comment on above: Performed By: #### L 300.3900 #### [facility] [address] [place], [address] Eosinophils/100 WBC (Bld) 5.5 % High 0-5 [facility] Comment on above: Performed By: #### L 300.3900 #### [facility] [address] [place], [address] Erythrocyte distribution width (RBC) [Ratio] 15.1 % High 11.6-14.6 [facility] Comment on above: Performed By: #### L 300.3900 #### [facility] [address] [place], [address] Hematocrit (Bld) [Volume fraction] 31.2 % Low 40-54 [facility] Comment on above: Performed By: #### L 300.3900 #### [facility] [address] [place], [address] Hemoglobin (Bld) [Mass/Vol] 10.0 g/dL Low 13.0-16.5 [facility] Comment on above: Performed By: #### L 300.3900 #### [facility] [address] [place], [address] IG% 0.300 Normal 0.0-0.9 [facility] Comment on above: Result Comment: IG% - Immature Granulocytes (promyelocytes, myelocytes and metamyelocytes) > 1% indicates that a LEFT SHIFT is Present. Performed By: #### L 300.3900 #### [facility] [address] [place], [address] Lymphocytes/100 WBC (Bld) 16.7 % Low 19-41 [facility] Comment on above: Performed By: #### L 300.3900 #### [facility] [address] [place], [address] MCH (RBC) [Entitic mass] 29.9 pg Normal 27.0-32.0 [facility] [facility] Comment on above: Performed By: #### L 300.3900 #### [facility] [address] [place], [address] MCHC (RBC) [Mass/Vol] 32.1 g/dL Normal 32-36 [facility] Comment on above: Performed By: #### L 300.3900 #### [facility] [address] [place], [address] MCV (RBC) [Entitic vol] 93.4 fL Normal 80-94 [facility] Comment on above: Performed By: #### L 300.3900 #### [facility] [address] [place], [address] Monocytes/100 WBC (Bld) 14.5 % High 0-10 [facility] Comment on above: Performed By: #### L 300.3900 #### [facility] [address] [place], [address] Neutrophils/100 WBC (Bld) 61.3 % Normal 47-70 [facility] Comment on above: Performed By: #### L 300.3900 #### [facility] [address] [place], [address] Nucleated RBC (Bld) [#/Vol] 0 10*3/uL Normal 0-5 [facility] Comment on above: Performed By: #### L 300.3900 #### [facility] [address] [place], [address] Platelet mean volume (Bld) [Entitic vol] 10.5 fL Normal 6.2-12.0 [facility] Comment on above: Performed By: #### L 300.3900 #### [facility] [address] [place], [address] Platelets (Bld) [#/Vol] 144 10*3/uL Low 150-450 [facility] Comment on above: Performed By: #### L 300.3900 #### [facility] [address] [place], [address] RBC (Bld) [#/Vol] 3.34 10*6/uL Low 4.6-6.2 [facility] Comment on above: Performed By: #### L 300.3900 #### [facility] [address] [place], [address] RDW SD 51.9 fl High 35.1-43.9 [facility] Comment on above: Performed By: #### L 300.3900 #### [facility] [address] [place], [address] WBC (Bld) [#/Vol] 6.1 10*3/uL Normal 4.4-11.0 [facility] Comment on above: Performed By: #### L 300.3900 #### [facility] [address] [place], [address] Comprehensive Metabolic Prof [facility] 09-12-2024 Albumin [Mass/Vol] 3.1 g/dL Low 3.2-5.0 [facility] Comment on above: Performed By: #### L 300.3900 #### [facility] [address] [place], [address] Albumin/Globulin [Mass ratio] 0.8 {ratio} Low 0.9-2.4 [facility] Comment on above: Performed By: #### L 300.3900 #### [facility] [address] [place], [address] ALK P 118 U/L High 45-117 [facility] Comment on above: Performed By: #### L 300.3900 #### [facility] [address] [place], [address] ALT [Catalytic activity/Vol] 19 U/L Normal 16-61 [facility] Comment on above: Performed By: #### L 300.3900 #### [facility] [address] [place], [address] AST [Catalytic activity/Vol] 17 U/L Normal 15-37 [facility] Comment on above: Performed By: #### L 300.3900 #### [facility] [address] [place], [address] Bilirubin [Mass/Vol] 0.60 mg/dL Normal 0.20-1.00 [facility] Comment on above: Result Comment: For patients on eltrombopag therapy, use of Dimension Haswell TBIL is not recommended. Performed By: #### L 300.3900 #### [facility] [address] [place], [address] BUN/CRE 24.1 RATIO High 10-20 [facility] Comment on above: Performed By: #### L 300.3900 #### [facility] [address] [place], [address] CA,Total 9.1 mg/dL Normal 8.5-10.1 [facility] Comment on above: Performed By: #### L 300.3900 #### [facility] [address] [place], [address] Chloride [Moles/Vol] 106 mmol/L Normal 98-107 [facility] Comment on above: Performed By: #### L 300.3900 #### [facility] [address] [place], [address] CO2 [Moles/Vol] 31.0 mmol/L Normal 21.0-32.0 [facility] Comment on above: Performed By: #### L 300.3900 #### [facility] [address] [place], [address] Creatinine [Mass/Vol] 0.75 mg/dL Normal 0.70-1.30 [facility] Comment on above: Result Comment: The validity of the calculated GFR GFRAA in patients over 70 years has not been determined. Clinical correlation is essential. Performed By: #### L 300.3900 #### [facility] [address] [place], [address] EST GFR - AA 131 mL/min Normal >60 [facility] Comment on above: Result Comment: Afri can Jamaican GFR Calc Performed By: #### L 300.3900 #### [facility] [address] [place], [address] GAP 4 Low 5-15 [facility] Comment on above: Performed By: #### L 300.3900 #### [facility] [address] [place], [address] GFR/1.73 sq M.predicted among non-blacks MDRD (S/P/Bld) [Vol rate/Area] 108 mL/min/{1.73_m2} Normal >60 [facility] Comment on above: Result Comment: Non- GFR Calc Performed By: #### L 300.3900 #### [facility] [address] [place], [address] Globulin (S) [Mass/Vol] 4.1 g/dL Normal 2.2-4.2 [facility] Comment on above: Performed By: #### L 300.3900 #### [facility] [address] [place], [address] Glucose [Mass/Vol] 119 mg/dL High 74-106 [facility] Comment on above: Result Comment: Fast ing Glucose result from 100 to 125 mg/dL suggests IMPAIRED HOMEOSTASIS per A.D.A. criteria. Performed By: #### L 300.3900 #### [facility] [address] [place], [address] Potassium [Moles/Vol] 3.7 mmol/L Normal 3.5-5.1 [facility] Comment on above: Performed By: #### L 300.3900 #### [facility] [address] [place], [address] Sodium [Moles/Vol] 141 mmol/L Normal 136-145 [facility] Comment on above: Performed By: #### L 300.3900 #### [facility] [address] [place], [address] T PROT 7.2 g/dL Normal 6.4-8.2 [facility] Comment on above: Performed By: #### L 300.3900 #### [facility] [address] [place], [address] Urea nitrogen [Mass/Vol] 18 mg/dL Normal 7-18 [facility] Comment on above: Performed By: #### L 300.3900 #### [facility] [address] [place], [address] Lipid Profileon 09-12-2024 Cholesterol [Mass/Vol] 103 mg/dL Normal 200 [facility] Comment on above: Result Comment: <200 mg/dL Desirable 200-240 mg/dL Borderline >240 mg/dL High Risk Performed By: #### L 300.3900 #### [facility] [address] [place], [address] Cholesterol in HDL [Mass/Vol] 73 mg/dL Normal [facility] Comment on above: Result Comment: The drugs N-Acetylcysteine and Metamizole may falsely depress this assay. Reference Range HDL <40 mg/dL Low HDL Cholesterol HDL >or= 60 mg/dL High HDL Cholesterol Performed By: #### L 300.3900 #### [facility] [address] [place], [address] Cholesterol in LDL [Mass/Vol] 23 mg/dL Normal 0-130 [facility] Comment on above: Performed By: #### L 300.3900 #### [facility] [address] [place], [address] Cholesterol in VLDL [Mass/Vol] 7 mg/dL Normal 5-40 [facility] Comment on above: Performed By: #### L 300.3900 #### [facility] [address] [place], [address] Triglyceride [Mass/Vol] 34 mg/dL Normal [facility] Comment on above: Result Comment: The drugs N-Acetylcysteine and Metamizole may falsely depress this assay. Serum Triglycerides Reference Interval Normal <150 mg/dL Borderline high 150 - 199 mg/dL High 200 - 499 mg/dL Very High > or = 500 mg/dL Performed By: #### L 300.3900 #### [facility] [address] [place], [address] Prothrombin Time w/INRon INR Coag (PPP) [Relative time] 1.8 {INR} Normal [facility] Comment on above: Performed By: #### L 300.3900 #### [facility] [address] [place], [address] PT Coag (PPP) [Time] 21.1 s High 11.7-14.9 [facility] Comment on above: Performed By: #### L 300.3900 #### [facility] [address] [place], [address] Thyroid Stim Hormone (TSH)on 09-12-2024 TSH 0.966 uIU/mL Normal 0.358-3.740 [facility] Comment on above: Performed By: #### L 300.3900 #### [facility] [address] [place], [address] Vitamin D,25 Hydroxyon 09-12 Vitamin D 25-OH 36.1 ng/mL Normal [facility] Comment on above: Result Comment: Inge min D 25(OH) Status Range Deficiency <20 ng/mL (50nmol/L) Insufficiency 20 - 30 ng/mL (50 - 75 nmol/L) Sufficiency 30 - 100 ng/mL (75 - 250 nmol/L) Toxicity >100 ng/mL (>250 nmol/L) Performed By: #### L 300.3900 #### [facility] [address] [place], [address] 12 Lead EKG performed by [facility] on 08-26-2024 12 Lead EKG performed by [facility] [address] [place] [address] 12 Lead EKG performed by [facility] 08/26/24909 MR#: [id number] Acct: [id number] Name: ANDER MONTEIRO Rep #: [id number] : 1950 73 From: Shady Obrien MD Attending Dr: Dr. Shady Obrien MD Status: DE P AMB Ordering Dr: Shady Obrien MD Date: 08/26/24 Location: [facility] Sex: M C Admitted: BMS/12 Lead EKG performed by [facility] ECG Report Interpretation ----Atrial fibrillation - frequent ectopic ventricular beat s # VECs = 3Low voltage in limb leads. ABNORMAL Electronically signed on 08/26/2024 at 12:[address] Shady Obrien [employer] Software Version [id number] 08/26/24 1227 Date Shady Obrien MD CC: Dr. 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 [place] [address] OFFICE VISIT Date of Service: 08/26/24 MR#: [id number] Acct: [id number] Name: ANDER MONTEIRO Rep #: [id number] : 1950 Provider: Dr. Shady fam MD Age/Sex: 73/M Location: [facility] Status: Signed [facility] History of Present Illness Details: This is a 73-year-old male presents to the office today with his uynfsyhh-fr-yes for monitoring of his cardiovascular disease. Patient status post TAVR by Dr. Reyes July 09, 2024. The patient had presented with recurrent heart failure with preserved ejection fraction. He now reports that his breathing has markedly improved he has not had to use any rescue inhaler since his TAVR. He is able to go up and down the stairs slowly he does have some issues with ambulation due to the lower extremity orthopedic issues. He actually has a history of chronic atrial fibrillation he has been on Coumadin long-term last INR was 1.92 weeks ago. He has a history of anemia last hemoglobin was 10 2 weeks ago. His right lower extremity toe infection has cleared up and he actually had all of his teeth extracted due to chronic influenza infection prior to his valve replacement. The patient is aware of SBE prophylaxis. The patient denies any chest pain denies any significant dyspnea on exertion other than what he would expect. He is ambulatory. He reports that he feels much better than he did prior to his valve replacement. The patient denies any syncope or near syncope. EKG in office today shows atrial fibrillation with a correlation of PVCs and a ventricular rate of 64 and otherwise is unremarkable. The patient is due to have pain injections into his back tomorrow. I ask him to make certain that his pain management team is aware of his new valve as well as the fact that he is on long-term Coumadin. I also ask him to get an INR done today on his way out of the office. Intake Vital Signs 06/03/24 07:20 08/14/24 12:22 08/26/24 10:44 Height 5 ft 11 in 5 ft 11 in 5 ft 11 in Weight: 222 lb BMI 30.9 BP 113/69 Blood Pressure Location Lt brachial Position Sitting Respiration 18 Pulse 69 Pulse Source Monitor Pulse Oximetry (%) 95 Oxygen Delivery Method room air Comment weight per pt report Intake Visit Reasons: 1 M FU [employer] Required: No Accompanied by: Daughter In Law Is patient in pain?: No Allergies pramoxine Allergy (Verified 08/26/24 10:46) Rash Medications ???Medication ???Instructions ???Recorded ???Confirmed ???Type simvastatin 10 mg tablet 10 mg PO QHS cholesterol 09/06/22 08/26/24 History terazosin 2 mg capsule 2 mg PO QHS prostate 09/06/22 08/26/24 History lidocaine 5 % topical patch 1 patch topical DAILY pain #15 ea 09/08/22 08/26/24 Rx albuterol sulfate 90 mcg/actuation 1 puff inhalation Q4H PRN SOB 02/08/24 08/26/24 History aerosol inhaler tiotropium 2.5 mcg-olodaterol 2.5 1 puff inhalation BID breathing 02/08/24 08/26/24 History mcg/actuation mist for inhalation (Stiolto Respimat) acetaminophen 500 mg tablet 1,000 mg (2 x 500 mg) PO Q8 #0 tabs 03/06/24 08/26/24 Rx sennosides 8.6 mg-docusate sodium 2 tab PO BID 30 days #120 tabs 03/06/24 08/26/24 Rx 50 mg tablet (Stool Softener-Stimulant Laxative) warfarin 1 mg tablet (Jantoven) 0.5 mg PO DINNER 30 days #15 tabs 03/06/24 08/26/24 Rx warfarin 4 mg tablet (Jantoven) 4 mg PO DINNER 30 days #30 tabs 03/06/24 08/26/24 Rx ferrous sulfate 325 mg (65 mg 325 mg PO QDAY 03/25/24 08/26/24 History iron) tablet (FeroSul) oxycodone 10 mg tablet 10 mg PO TID PRN pain 03/25/24 08/26/24 History furosemide 40 mg tablet mg PO QDAY 08/26/24 08/26/24 History Ejection fraction %: 60 Have you fallen in the past year?: Yes PFSH Medical History Aortic stenosis 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 RAFAEL on CPAP Chronic pain syndrome HLD (hyperlipidemia) Obesity (HFpEF) heart failure with preserved ejection fraction Longstanding persistent atrial fibrillation History of atrial fibrillation Anemia Congestive heart failure Medical non-compliance Compression fx, thoracic spine Hypertension Former smoker COPD (chronic obstructive pulmonary disease) Surgical History S/P TAVR (transcatheter aortic valve replacement) History of bilateral cataract extraction History of cardiac radiofrequency ablation (RFA) History of tonsillectomy and adenoidectomy Family History Mother Cancer Father CAD (coronary artery disease) Heart disease Hypertension Myocardial infarction Social History ... Normal [facility] Prothrombin Time w/INRon INR Coag (PPP) [Relative time] 1.9 {INR} Normal [facility] Comment on above: Performed By: #### L 300.3900 #### [facility] [address] [place], [address] PT Coag (PPP) [Time] 21.6 s High 11.7-14.9 [facility] Comment on above: Performed By: #### L 300.3900 #### [facility] [address] [place], [address] BNP,B-Type NATRIURETIC PEPTI Shahzad 08-13-2024 Natriuretic peptide B (Bld) [Mass/Vol] 474.9 pg/mL High 0-100 [facility] Comment on above: Performed By: #### L 300.3900 #### [facility] [address] [place], [address] CBC W/Diff, Automatedon 10-0 Absolute Lymph 1.31 X10 3/uL Normal 0.83-4.51 [facility] Comment on above: Performed By: #### L 300.3900 #### [facility] [address] [place], [address] Absolute Neut 4.0 X10 3/uL Normal 2.0-7.7 [facility] Comment on above: Performed By: #### L 300.3900 #### [facility] [address] [place], [address] Basophils/100 WBC (Bld) 1.4 % High 0-1 [facility] Comment on above: Performed By: #### L 300.3900 #### [facility] [address] [place], [address] Eosinophils/100 WBC (Bld) 5.7 % High 0-5 [facility] Comment on above: Performed By: #### L 300.3900 #### [facility] [address] [place], [address] Erythrocyte distribution width (RBC) [Ratio] 14.6 % Normal 11.6-14.6 [facility] Comment on above: Performed By: #### L 300.3900 #### [facility] [address] [place], [address] Hematocrit (Bld) [Volume fraction] 38.1 % Low 40-54 [facility] Comment on above: Performed By: #### L 300.3900 #### [facility] [address] [place], [address] Hemoglobin (Bld) [Mass/Vol] 12.0 g/dL Low 13.0-16.5 [facility] Comment on above: Performed By: #### L 300.3900 #### [facility] [address] [place], [address] IG% 0.500 Normal 0.0-0.9 [facility] Comment on above: Result Comment: IG% - Immature Granulocytes (promyelocytes, myelocytes and metamyelocytes) > 1% indicates that a LEFT SHIFT is Present. Performed By: #### L 300.3900 #### [facility] [address] [place], [address] Lymphocytes/100 WBC (Bld) 20.0 % Normal 19-41 [facility] Comment on above: Performed By: #### L 300.3900 #### [facility] [address] [place], [address] MCH (RBC) [Entitic mass] 28.6 pg Normal 27.0-32.0 [facility] Comment on above: Performed By: #### L 300.3900 #### [facility] [address] [place], [address] MCHC (RBC) [Mass/Vol] 31.5 g/dL Low 32-36 [facility] Comment on above: Performed By: #### L 300.3900 #### [facility] [address] [place], [address] MCV (RBC) [Entitic vol] 90.9 fL Normal 80-94 [facility] Comment on above: Performed By: #### L 300.3900 #### [facility] [address] [place], [address] Monocytes/100 WBC (Bld) 11.6 % High 0-10 [facility] Comment on above: Performed By: #### L 300.3900 #### [facility] [place], [address] Neutrophils/100 WBC (Bld) 60.8 % Normal 47-70 [facility] Comment on above: Performed By: #### L 300.3900 #### [facility] [address] [place], [address] Nucleated RBC (Bld) [#/Vol] 0 10*3/uL Normal 0-5 [facility] Comment on above: Performed By: #### L 300.3900 #### [facility] [address] [place], [address] Platelet mean volume (Bld) [Entitic vol] 11.3 fL Normal 6.2-12.0 [facility] Comment on above: Performed By: #### L 300.3900 #### [facility] [address] [place], [address] Platelets (Bld) [#/Vol] 124 10*3/uL Low 150-450 [facility] Comment on above: Performed By: #### L 300.3900 #### [facility] [address] [place], [address] RBC (Bld) [#/Vol] 4.19 10*6/uL Low 4.6-6.2 [facility] Comment on above: Performed By: #### L 300.3900 #### [facility] [address] [place], [address] RDW SD 48.5 fl High 35.1-43.9 [facility] Comment on above: Performed By: #### L 300.3900 #### [facility] [address] [place], [address] WBC (Bld) [#/Vol] 6.5 10*3/uL Normal 4.4-11.0 [facility] Comment on above: Performed By: #### L 300.3900 #### [facility] [address] [place], [address] Comprehensive Metabolic Prof ilon 08-13-2024 Albumin [Mass/Vol] 3.1 g/dL Low 3.2-5.0 [facility] Comment on above: Performed By: #### L 300.3900 #### [facility] [address] [place], [address] Albumin/Globulin [Mass ratio] 0.7 {ratio} Low 0.9-2.4 [facility] Comment on above: Performed By: #### L 300.3900 #### [facility] [address] [place], [address] ALK P 83 U/L Normal 45-117 [facility] Comment on above: Performed By: #### L 300.3900 #### [facility] [address] [place], [address] ALT [Catalytic activity/Vol] 19 U/L Normal 16-61 [facility] Comment on above: Performed By: #### L 300.3900 #### [facility] [address] [place], [address] AST [Catalytic activity/Vol] 17 U/L Normal 15-37 [facility] Comment on above: Performed By: #### L 300.3900 #### [facility] [address] [place], [address] Bilirubin [Mass/Vol] 1.00 mg/dL Normal 0.20-1.00 [facility] Comment on above: Result Comment: For patients on eltrombopag therapy, use of Dimension [place] TBIL is not recommended. Performed By: #### L 300.3900 #### [facility] [address] [place], [address] BUN/CRE 17.3 RATIO Normal 10-20 [facility] Comment on above: Performed By: #### L 300.3900 #### [facility] [address] [place], [address] CA,Total 9.8 mg/dL Normal 8.5-10.1 [facility] Comment on above: Performed By: #### L 300.3900 #### [facility] [address] [place], [address] Chloride [Moles/Vol] 110 mmol/L High 98-107 [facility] Comment on above: Performed By: #### L 300.3900 #### [facility] [address] [place], [address] CO2 [Moles/Vol] 30.0 mmol/L Normal 21.0-32.0 [facility] Comment on above: Performed By: #### L 300.3900 #### [facility] [address] [place], [address] Creatinine [Mass/Vol] 1.33 mg/dL High 0.70-1.30 [facility] Comment on above: Result Comment: The validity of the calculated GFR GFRAA in patients over 70 years has not been determined. Clinical correlation is essential. Performed By: #### L 300.3900 #### [facility] [address] [place], [address] EST GFR - AA 67 mL/min Normal >60 [facility] Comment on above: Result Comment: Afri can Jamaican GFR Calc Performed By: #### L 300.3900 #### [facility] [address] [place], [address] GAP 2 Low 5-15 [facility] Comment on above: Performed By: #### L 300.3900 #### [facility] [address] [place], [address] GFR/1.73 sq M.predicted among non-blacks MDRD (S/P/Bld) [Vol rate/Area] 56 mL/min/{1.73_m2} Low >60 [facility] [facility] Comment on above: Result Comment: Non- GFR Calc Performed By: #### L 300.3900 #### [facility] [address] [place], [address] Globulin (S) [Mass/Vol] 4.2 g/dL Normal 2.2-4.2 [facility] Comment on above: Performed By: #### L 300.3900 #### [facility] [address] [place], [address] Glucose [Mass/Vol] 121 mg/dL High 74-106 [facility] Comment on above: Result Comment: Fast ing Glucose result from 100 to 125 mg/dL suggests IMPAIRED HOMEOSTASIS per A.D.A. criteria. Performed By: #### L 300.3900 #### [facility] [address] [place], [address] Potassium [Moles/Vol] 4.9 mmol/L Normal 3.5-5.1 [facility] Comment on above: Performed By: #### L 300.3900 #### [facility] [address] [place], [address] Sodium [Moles/Vol] 142 mmol/L Normal 136-145 [facility] Comment on above: Performed By: #### L 300.3900 #### [facility] [address] [place], [address] T PROT 7.3 g/dL Normal 6.4-8.2 [facility] Comment on above: Performed By: #### L 300.3900 #### [facility] [address] [place], [address] Urea nitrogen [Mass/Vol] 23 mg/dL High 7-18 [facility] Comment on above: Performed By: #### L 300.3900 #### [facility] [address] [place], [address] Echo Completeon 08-13-2024 Echo Complete [facility] [address] [place] [address] Echo Complete 08/13/24 1005 MR#: [id number] Acct: [id number] Name: ANDER MONTEIRO Rep #: [id number] : 1950 73 From: Osbaldo Laird MD Attending Dr: Dr. Shady Obrien MD Status: [facility] Ordering Dr: Shady Obrien MD Date: 08/13/24 Location: [facility] Sex: M C Admitted: Reason For Study: Valve Replacement-TAVR Procedure This was a 2D Doppler, Color Flow transthoracic echocardiogram. Exam performed in department. Left Ventricle Normal LV size. The left ventricular ejection fraction is 60 %. No regional wall motion abnormalities noted. Right Ventricle Normal RV size. Normal systolic function. Atria The left atrium is severely enlarged. The right atrium is severely enlarged. Mitral Valve Bileaflet diffuse mitral valve thickening. Tricuspid Valve Normal tricuspid valve. Mild to moderate (1-2+) tricuspid valve insufficiency. Pulmonary artery systolic pressure is 50 mmHg. Aortic Valve Peak aortic valve gradient 21 mmHg. Mean aortic valve gradient 10 mmHg. Bioprosthetic aortic valve. Pulmonic Valve Normal pulmonic valve. Great Vessels Normal aortic root. The pulmonary artery is normal size. Inferior vena cava collapse with respiration. Pericardium/Pleural No pericardial effusion. Medication Previous Negative Bubble on YADI (02/2024). MMode/2D Measurements Calculations LVIDd: 5.9 cm IVSd: 1.5 cm LVOT diam: 2.1 cm LVIDs: 3.6 cm LVPWd: 1.1 cm RVDd: 4.6 cm FS: 39.2 % LVOT area: 3.5 cm2 Ao root diam: 3.9 cm asc Aorta Diam: 4.2 cm LAV(MOD-bp): 195.8 ml LA dimension: 5.3 cm LAV(MOD-bp) Indexed: 90.9 ml/m2 LAV(MOD-sp2): 170.8 ml LAV(MOD-sp4): 179.7 ml TAPSE: 1.9 cm LA A4 area: 43.3 cm2 RA A4 area: 40.7 cm2 Doppler Measurements Calculations MV E max david: 144.5 cm/sec MV V2 max: 172.7 cm/sec Ao V2 max: 228.6 cm/sec MV max P.0 mmHg Ao max P.0 mmHg MV V2 mean: 77.1 cm/sec Ao V2 mean: 148.9 cm/sec MV mean P.3 mmHg Ao mean P.5 mmHg MV V2 VTI: 44.6 cm Ao V2 VTI: 46.7 cm MVA(VTI): 2.6 cm2 AV (velocity ratio): 0.71 MARY(I,D): 2.5 cm2 MARY(V,D): 2.4 cm2 LV V1 max: 152.8 cm/sec SV(LVOT): 117.9 ml PA V2 max: 99.5 cm/sec LV V1 max P.4 mmHg PA max PG (full): 1.5 mmHg LV V1 mean P.0 mmHg LV V1 mean: 91.2 cm/sec LV V1 VTI: 33.4 cm TR max david: 342.6 cm/sec TR max P.0 mmHg ECHO/Echo Complete Interpretation Summary Normal LV size. The left ventricular ejection fraction is 60 %. Bioprosthetic aortic valve. Mean aortic valve gradient 10 mmHg. Pulmonary artery systolic pressure is 50 mmHg. Biatrial enlargement is noted. Compared to the previous there has been on interval prosthetic aortic valve replacement. Ordering Physician: Shady Obrien Referring Physician: TRI NEWBERRY Performed By: Salvatore Candelario and Student 08/13/24 0144 Date Osbaldo Laird MD CC: Dr. Shady Obrien MD; Dr. Freedom Sutton MD; TRI NEWBERRY Date Dictated: 08/13/24 1005 Date Transcribed: 08/13/[address] Serv[employer] Supervisor: Signed Normal [facility] Prothrombin Time w/INRon INR Coag (PPP) [Relative time] 2.0 {INR} [facility] Comment on above: Order Comment: Comme nts: Home Health to Draw Performed By: #### L 300.3900 #### [facility] [address] [place], [place], [address] PT Coag (PPP) [Time] 22.4 s High 11.7-14.9 [facility] Comment on above: Order Comment: Comme nts: Home Health to Draw Performed By: #### L 300.3900 #### [facility] [address] [place], [address] 36on 07-26-2024 36 Appts echo 08/13/[address] Obrien 08/26/24 Patient also wants me to let you know he is having pain injections in both shoulders. Pain mgt [place]. Dr Musa told him they would be no problem but he wanted us to know. [facility] 36on 07-22-2024 36 Patient last seen in office by Dawit Newberry APRN for 1 week s/p TAVR follow-up. Plan to have 1 month follow-up and echo in [place]. Kia Huggins to schedule at [place] and note date of both appointments for TVT follow-up purposes. [facility] Office Visiton 07-16-2024 Follow-up visit [id number] Marlon Monteiro tiara 1950 M Date Provider Department Center 07/16/2024 [id number] [facility] [address] No family history on file Level of Service:22719 DE OFFICE/OUTPATIENT ESTABLISHED MOD MDM 30 MIN Reason for Visit and Comments: Follow-up [023996] - One week s/p TAVR [facility] Progress Noteon 07-16-2024 Progress Note S/p femoral TAVR wit h 29 mm Ileana S3 on 07/08/24 -stable -continue warfarin, INR due this week by [facility] nurse -repeat echo in one month -reviewed SBE prophylaxis-patient is edentulous -discussed Cardiac Rehab-patient declines at this time but will consider in future. Advised Cardiac Rehab can be done in [place]. [facility] Progress Note EKG shows AFib with HR 66 -rate well controlled -currently on warfarin. Patient and son plan to discuss switching to Eliquis at next office visit in one month [facility] Progress Note Moderate LAD stenosi s noted on cath -denies angina -continue simvastatin, consider switching to rosuvastatin [facility] Progress Note Chronic HFpEF 65% -NYHA Class II-III -weight at discharge 231 lbs and today's weight 231 lbs. -some improvement in LE edema -continue current doses of lasix, Entresto [facility] Progress Note [facility] [address] [facility] [address] Dept: [phone] Dept Loc: [phone] Reason for Visit: Follow-up (One week s/p TAVR) Assessment and Plan 1. Severe aortic stenosis Assessment & Plan: S/p femoral TAVR with 29 mm Ileana S3 on 07/08/24 -stable -continue warfarin, INR due this week by [facility] nurse -repeat echo in one month -reviewed SBE prophylaxis-patient is edentulous -discussed Cardiac Rehab-patient declines at this time but will consider in future. Advised Cardiac Rehab can be done in [place]. 2. Chronic heart failure with preserved ejection fraction (HCC) Assessment & Plan: Chronic HFpEF 65% -NYHA Class II-III -weight at discharge 231 lbs and today's weight 231 lbs. -some improvement in LE edema -continue current doses of lasix, Entresto 3. Longstanding persistent atrial fibrillation (HCC) Assessment & Plan: EKG shows AFib with HR 66 -rate well controlled -currently on warfarin. Patient and son plan to discuss switching to Eliquis at next office visit in one month 4. Coronary artery disease involving [place] coronary artery of [place] heart without angina pectoris Assessment & Plan: Moderate LAD stenosis noted on cath -denies angina -continue simvastatin, consider switching to rosuvastatin Orders: - ECG 12 lead - CLINIC PERFORMED Follow up for [employer] follow up, with echo-to be done at [facility]. Subjective HPI Ander Monteiro is a 73 yo with known to Dr Obrien with chronic HFpEF, Afib, iron deficiency anemia, COPD, HTN, HLD, pressure wound followed by podiatry and chronic pain followed by Pain Management. He has had progressive DUNLAP, fatigue and a hospital admission in 02/2024 for acute heart failure. Echo showed EF 50% with mean Ao gradient 45 mmHg. Heart cath showed moderate LAD stenosis with continued medical management. He is followed by podiatry for lower leg wounds which and was cleared to proceed with TAVR. He recently had all his remaining teeth extracted and was cleared by his dentist to proceed with TAVR. He underwent femoral TAVR on 07/08/24 with a 29 mm Ileana S3 valve. He did well post procedure and was discharged home the following day. He presents today for a one week follow up accompanied by his son. He denies angina, orthopnea, abdominal bloating or bleeding. He reports SOB with exertion has not changed. Reports intermittent dizziness that is chronic. Not requiring use of his inhaler. He reports more energy and is going out to work in his garage more. Activity is limited by chronic back and left shoulder pain. Review of Systems Constitutional: Positive for fatigue (improving). Negative for chills and fever. Respiratory: Positive for shortness of breath. Negative for cough. Cardiovascular: Positive for leg swelling (slightly improved). Negative for chest pain and palpitations. Gastrointestinal: Negative for abdominal pain, blood in stool and vomiting. Genitourinary: Negative for hematuria. Musculoskeletal: Positive for arthralgias (left shoulder, chronic), back pain (chronic) and gait problem (uses cane at home, in W/C today). Neurological: Positive for dizziness (intermittent, chronic). Negative for syncope. Psychiatric/Behavioral : Negative for confusion. Allergies Allergen Reactions Pramoxine Rash Other Reaction(s): Burning sensation, Erythema, Burning sensation, Erythema Outpatient Medications Prior to Visit Medication Sig Dispense Refill acetaminophen (Tylenol) 500 MG tablet Take 500 mg by mouth every 8 hours as needed for mild pain (1-3). albuterol 108 (90 Base) MCG/ACT inhaler Inhale 2 puffs every 6 hours as needed for wheezing. Diclofenac Sodium (Arthritis Pain Reliever) 1 % gel Apply 2 g topically 2 times daily. ferrous sulfate (FeroSul) 325 (65 Fe) MG tablet Take 325 mg by mouth daily (with breakfast). furosemide (Lasix) 80 MG tablet Take 40 mg by mouth daily. oxyCODONE (Roxicodone) 10 MG immediate release tablet Take 10 mg by mouth every 8 hours as needed for severe pain (7-10). potassium chloride CR (Klor-Con M20) 20 MEQ ER tablet Take 20 mEq by mouth 2 times daily. Do not crush or chew. sacubitril-valsartan (Entresto) 49-51 MG tablet Take 1 tablet by mouth 2 times daily. senna-docusate (Lyndsey-Colace) 8.6-50 MG tablet Take 2 tablets by mouth in the morning and 2 tablets in the evening. simvastatin (Zocor) 10 MG tablet Take 10 mg by mouth Nightly. terazosin (Hytrin) 2 MG capsule Take 2 mg by mouth daily. tiotropium-olodaterol (Stiolto Respimat) 2.5-2.5 MCG/ACT aerosol solution inhaler Inhale 2 Inhalations in the morning and 2 Inhalations in the evening. warfarin (Coumadin) 1 MG tablet Take 1 tablet (1 mg) by mouth every evening. Patient to take 5 mg total dose daily and then as directed by PCP warfarin (Coumadin) 4 MG tablet Take 1 tablet (4 mg) by mouth every evening. Patient to take total daily dose of 5 (more content not included)... Normal [facility] [id number] 07-09-2024 [id number] Patient previously active with: [facility] [address] [place] [address] For SN. Patients cert period ends 07/09/24. Stated they would take him back as new SOC. [facility] BASIC METABOLIC PANELon 08- Anion gap [Moles/Vol] 6 mmol/L Normal 3-13 [facility] Comment on above: Performed By: #### L AB15 ####Electrical High Tension Tester: ISRAEL TAN ([id number])[facility] [place] [address] Calcium [Mass/Vol] 9.1 mg/dL Normal 8.4-10.4 [facility] Comment on above: Performed By: #### L AB15 ####Electrical High Tension Tester: ISRAEL TAN ([id number])[facility] [place] [address] Chloride [Moles/Vol] 110 mmol/L High 98-107 [facility] Comment on above: Performed By: #### L AB15 ####Electrical High Tension Tester: ISRAEL TAN ([id number])[facility] ([facility])[address] [place] [address] CO2 [Moles/Vol] 21 mmol/L Low 22-30 [facility] Comment on above: Performed By: #### L AB15 ####Electrical High Tension Tester: ISRAEL TAN ([id number])[facility] ([facility])[address] [place] [address] Creatinine [Mass/Vol] 0.55 mg/dL Low 0.66-1.25 [facility] Comment on above: Performed By: #### L AB15 ####Electrical High Tension Tester: ISRAEL TAN ([id number])[facility])[address] [place] [address] GLOMERULAR FILTRATION RATE ML/MIN/1.73 SQ M.PREDICTED >90.0 Normal >60.0 [facility] Comment on above: Result Comment: Calc ulation based on the Chronic Kidney Disease Epidemiology Collaboration (CKD-EPI) equation refit without adjustment for race Performed By: #### L AB15 ####Electrical High Tension Tester: ISRAEL TAN ([id number])[facility] ([facility])[address] [place] [address] Glucose [Mass/Vol] 98 mg/dL Normal 70-100 [facility] Comment on above: Performed By: #### L AB15 ####Electrical High Tension Tester: ISRAEL TAN ([id number])[facility] ([facility])[address] [place] [address] Potassium [Moles/Vol] 3.7 mmol/L Normal 3.5-5.1 [facility] Comment on above: Performed By: #### L AB15 ####Electrical High Tension Tester: ISRAEL TAN ([id number])[facility] ([facility])[address] [place] [address] Sodium [Moles/Vol] 136 mmol/L Normal 135-145 [facility] Comment on above: Performed By: #### L AB15 ####Electrical High Tension Tester: ISRAEL TAN ([id number])[facility] ([facility])[address] [place] [address] Urea nitrogen [Mass/Vol] 15 mg/dL Normal 9-20 [facility] Comment on above: Performed By: #### L AB15 ####Electrical High Tension Tester: ISRAEL TAN ([id number])[facility] ([facility])[address] [place] [address] Basic metabolic 1998 panelon 07-09-2024 Anion gap [Moles/Vol] 6 mmol/L 3 - 13 mmol/L [facility] Calcium [Mass/Vol] 9.1 mg/dL 8.4 - 10. 4 mg/dL [facility] Chloride [Moles/Vol] 110 mmol/L High 98 - 10 7 mmol/L [facility] CO2 [Moles/Vol] 21 mmol/L Low 22 - 30 mmol/L [facility] Creatinine [Mass/Vol] 0.55 mg/dL Low 0.66 - 1.25 mg/dL [facility] GFR/1.73 sq M.predicted (S/P/Bld) [Vol rate/Area] - PINF [facility] Comment on above: Calculation based on the Chronic Kidney Disease Epidemiology Collaboration (CKD-EPI) equation refit without adjustment for race Glucose [Mass/Vol] 98 mg/dL 70 - 100 mg/dL [facility] Interpretation and review of laboratory results Abnormal [facility] Potassium [Moles/Vol] 3.7 mmol/L 3.5 - 5.1 mmol/L [facility] Sodium [Moles/Vol] 136 mmol/L 135 - 145 mmol/L [facility] [employer] Urea nitrogen [Mass/Vol] 15 mg/dL 9 - 20 mg/d L [facility] CARECOORDon 07-09-2024 CARECONEW BERN Next Site of Care Admission Date: 07/08/2024 10:22 AM Patient Name: ANDER MONTEIRO Location: [place] [id number] Date of : 1950 ---- Placement Information ---- Referral Type:Home Health Care Services - Resume Referral ID:[id number] Provider Name:[facility] Address 1:[address] Address 2: City:[place] Selection Factors:Active with Agency State:[place] Normal [facility] CBC (HEMOGRAM)on 07-09-2024 Erythrocyte distribution width (RBC) [Ratio] 14.5 % Normal 11.5-15.0 [facility] Comment on above: Performed By: #### L [id number] ####Electrical High Tension Tester: ISRAEL TAN ([id number])[facility])[address] [place] [address] Hematocrit (Bld) [Volume fraction] 33.5 % Low 40.0-52.0 [facility] Comment on above: Performed By: #### L [id number] ####Electrical High Tension Tester: ISRAEL TAN ([id number])[facility])[address] [place] [address] Hemoglobin (Bld) [Mass/Vol] 10.8 g/dL Low 13.0-18.0 [facility] Comment on above: Performed By: #### L [id number] ####Electrical High Tension Tester: ISRAEL TAN ([id number])[facility] ([facility])[address] [place] [address] MCH (RBC) [Entitic mass] 29.3 pg Normal 26.0-34.0 [facility] Comment on above: Performed By: #### L AB294 ####Electrical High Tension Tester: ISRAEL TAN ([id number])[facility])[address] [place] [address] MCHC 32.2 % Normal 30.5-36.0 [facility] Comment on above: Performed By: #### L AB294 ####Electrical High Tension Tester: ISRAEL TAN ([id number])[facility])[address] [place] [address] MCV (RBC) [Entitic vol] 91.0 fL Normal 77.0-99.0 S [facility] Comment on above: Performed By: #### L [id number] ####Electrical High Tension Tester: ISRAEL TAN ([id number])[facility])[address] [place] [address] Platelet mean volume (Bld) [Entitic vol] 11.3 fL Normal 9.0-12.7 [facility] Comment on above: Performed By: #### L AB294 ####Electrical High Tension Tester: ISRAEL TAN ([id number])[facility] ([facility])[address] [place] [address] Platelets (Bld) [#/Vol] 121 10*3/uL Low 140-440 [facility] Comment on above: Performed By: #### L [id number] ####Electrical High Tension Tester: ISRAEL TAN ([id number])[facility] ([facility])[address] [place] [address] RBC (Bld) [#/Vol] 3.68 10*6/uL Low 4.40-5.90 [facility] Comment on above: Performed By: #### L [id number] ####Electrical High Tension Tester: ISRAEL TAN ([id number])[facility] ([facility])[address] [place] [address] WBC (Bld) [#/Vol] 5.5 10*3/uL Normal 3.6-10.7 [facility] Comment on above: Performed By: #### L [id number] ####Electrical High Tension Tester: ISRAEL TAN ([id number])[facility] ([facility])[address] [place] [address] CBC panel Auto (Bld)on 07-09 Erythrocyte distribution width (RBC) [Ratio] 14.5 % 11.5 - 15.0 % [facility] Hematocrit (Bld) [Volume fraction] 33.5 % Low 40.0 - 52.0 % [facility] Hemoglobin (Bld) [Mass/Vol] 10.8 g/dL Low 13.0 - 18.0 g/dL [facility] Interpretation and review of laboratory results Abnormal [facility] MCH (RBC) [Entitic mass] 29.3 pg 26. 0 - 34.0 pg [facility] MCHC (RBC) [Mass/Vol] 32.2 % 30.5 - 36.0 % [facility] MCV (RBC) [Entitic vol] 91.0 fL 77.0 - 99.0 fL [facility] Platelet mean volume (Bld) [Entitic vol] 11.3 fL 9.0 - 12.7 fL [facility] Platelets (Bld) [#/Vol] 121 10*3/uL Low 140 - 440 10*3/uL [facility] RBC (Bld) [#/Vol] 3.68 10*6/uL Low 4.40 - 5.9 0 10*6/uL [facility] WBC (Bld) [#/Vol] 5.5 10*3/uL 3.6 - 10.7 10*3/uL [facility] ECG 12-LEADon 07-09-2024 ECG 12-LEAD IMPRESSION: Atrial fibrillation Nonspecific intraventricular conduction delay Borderline T abnormalities, inferior leads Electronically Signed On 07-09-2024 09:25:38 EDT by Varun Childs Normal [facility] - Coagulationon 0 07-09-2024 PT Coag (Bld) [Time] 13.4 s High 9.0 - 12.0 s [facility] No Panel Informationon 07-09 POCT ACT [facility] Comment on above: Result above instrum ent displayable range; Performed by: [facility], [address] [place] [address] CLIA ID: [id number] [facility] Atrial fibrillation Nonspecific intraventricular conduction delay Borderline T abnormalities, inferior leads Electronically Signed On 07-09-2024 09:25:38 EDT by Varun Childs CV EPIPHANY Varun Childs MD - 07/09/2024 IMPRESSION: Atrial fibrillation Nonspecific intraventricular conduction delay Borderline T abnormalities, inferior leads Electronically Signed On 07-09-2024 09:25:38 EDT by VarunSendinBlue [facility] P Nickerson 0 degrees [facility] DE Interval 294 ms [facility] QRS Nickerson 88 degrees [facility] QRSD Interval 112 ms [facility] QT Interval 387 ms [facility] QTC Interval 400 ms [facility] T Wave Nickerson 249 degrees [facility] Varun Childs MD - 07/09/2024 IMPRESSION: Atrial fibrillation PVC Poor R wave progression, consider anterior infarct Nonspecific ST-T wave changes Electronically Signed On 07-09-2024 07:28:33 EDT by Varun Childs Subimage Panel InformationOrdered By: Varun Childs on 07-09-2024 P Nickerson 0 degrees [employer] Phone: DE Interval 0 ms [employer] Phone: [phone] QRS Nickerson 90 degrees [employer] Phone: [phone] QRSD Interval 130 ms [employer] Phone: QT Interval 509 ms [employer] Phone: QTC Interval 510 ms [employer] Phone: [phone] T Wave Nickerson 22 degrees [employer] Phone: [phone] [employer] Phone: [phone] Nursing Noteon 07-09-2024 Nursing Note Discharge instuction s given to patient. All questions answered at this time. Patient dressed. IV removed. [facility] PROTHROMBIN TIMEon INR Coag (PPP) [Relative time] 1.2 {INR} High 0.9-1.1 [facility] [employer] [facility] Comment on above: Result Comment: Navin mmended Anticoagulant Therapy: SEE BELOW ----- INR of 2.0 - 3.0 : - Prophylaxis of Venous Thrombosis (high-risk surgery) - Treatment of Venous Thrombosis - Treatment of Pulmonary Embolism (Includes tissue heart valves, Acute Myocardial Infarction to prevent systemic embolism, Valvular Heart Disease, and Atrial Fibrillation) ----- INR of 2.5 - 3.5 : - Mechanical Prosthetic Valves (high risk) - If oral 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 therapy is used to prevent Myocardial Infarction Performed By: #### L [id number] #### Electrical High Tension Tester: ISRAEL TAN ([id number]) [facility] [address] [place] [address] PT Coag (PPP) [Time] 13.4 s High 9.0-12.0 [facility] [employer] [facility] Comment on above: Performed By: #### L [id number] #### Electrical High Tension Tester: ISRAEL TAN ([id number]) [facility] ([facility]) [address] [place] [address] [place] PT Coag (Bld) [Time]on 07-09 INR Coag (PPP) [Relative time] 1.2 {INR} High 0.9 - 1.1 [facility] Comment on above: Recommended Anticoag ulant Therapy: SEE BELOW ----- INR of 2.0 - 3.0 : - Prophylaxis of Venous Thrombosis (high-risk surgery) - Treatment of Venous Thrombosis - Treatment of Pulmonary Embolism (Includes tissue heart valves, Acute Myocardial Infarction to prevent systemic embolism, Valvular Heart Disease, and Atrial Fibrillation) ----- INR of 2.5 - 3.5 : - Mechanical Prosthetic Valves (high risk) - If oral 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 therapy is used to prevent Myocardial Infarction Interpretation and review of laboratory results Abnormal [facility] Vital signsOrdered By: Ivonne Childs on 07-09-2024 Heart rate 60 /min bpm [facility] Work Phone: Vital signson 07-09-2024 Heart rate 65 /min bpm [facility] BASIC METABOLIC PANELon 06-14 Anion gap [Moles/Vol] 5 mmol/L Normal 3-13 [facility] Comment on above: Performed By: #### L AB15 ####Electrical High Tension Tester: ISRAEL TAN ([id number])[facility])[address] [place] [address] Calcium [Mass/Vol] 9.1 mg/dL Normal 8.4-10.4 [facility] Comment on above: Performed By: #### L AB15 ####Electrical High Tension Tester: ISRAEL TAN ([id number])[facility])[address] [place] [address] [place] Chloride [Moles/Vol] 109 mmol/L High 98-107 [facility] Comment on above: Performed By: #### L AB15 ####Electrical High Tension Tester: ISRAEL TAN ([id number])[facility])[address] [place] [address] CO2 [Moles/Vol] 22 mmol/L Normal 22-30 [facility] Comment on above: Performed By: #### L AB15 ####Electrical High Tension Tester: ISRAEL TAN ([id number])[facility] Creatinine [Mass/Vol] 0.55 mg/dL Low 0.66-1.25 [facility] Comment on above: Performed By: #### L AB15 ####Electrical High Tension Tester: ISRAEL TAN ([id number])[facility])[address] [place] [address] GLOMERULAR FILTRATION RATE ML/MIN/1.73 SQ M.PREDICTED >90.0 Normal >60.0 [facility] Comment on above: Result Comment: Calc ulation based on the Chronic Kidney Disease Epidemiology Collaboration (CKD-EPI) equation refit without adjustment for race Performed By: #### L AB15 ####Electrical High Tension Tester: ISRAEL TAN ([id number])[facility])[address] [place] [address] Glucose [Mass/Vol] 90 mg/dL Normal 70-100 [facility] Comment on above: Performed By: #### L AB15 ####Electrical High Tension Tester: ISRAEL TAN ([id number])[facility] ([facility])[address] [place] [address] Potassium [Moles/Vol] 3.6 mmol/L Normal 3.5-5.1 [facility] Comment on above: Performed By: #### L AB15 ####Electrical High Tension Tester: ISRAEL TAN ([id number])[facility])[address] [place] [address] Sodium [Moles/Vol] 136 mmol/L Normal 135-145 [facility] Comment on above: Performed By: #### L AB15 ####Electrical High Tension Tester: ISRAEL TAN ([id number])[facility] ([facility])[address] [place] [address] Urea nitrogen [Mass/Vol] 15 mg/dL Normal 9-20 [facility] Comment on above: Performed By: #### L AB15 ####Electrical High Tension Tester: ISRAEL TAN ([id number])[facility] ([facility])[address] [place] [address] Basic metabolic 1998 panelon 07-08-2024 Anion gap [Moles/Vol] 5 mmol/L 3 - 13 mmol/L [facility] Calcium [Mass/Vol] 9.1 mg/dL 8.4 - 10. 4 mg/dL [facility] Chloride [Moles/Vol] 109 mmol/L High 98 - 10 7 mmol/L [facility] CO2 [Moles/Vol] 22 mmol/L 22 - 30 mmol/L [facility] Creatinine [Mass/Vol] 0.55 mg/dL Low 0.66 - 1.25 mg/dL [facility] GFR/1.73 sq M.predicted (S/P/Bld) [Vol rate/Area] - PINF [facility] Comment on above: Calculation based on the Chronic Kidney Disease Epidemiology Collaboration (CKD-EPI) equation refit without adjustment for race Glucose [Mass/Vol] 90 mg/dL 70 - 100 mg/dL [facility] Interpretation and review of laboratory results Abnormal [facility] Potassium [Moles/Vol] 3.6 mmol/L 3.5 - 5.1 mmol/L [facility] Sodium [Moles/Vol] 136 mmol/L 135 - 145 mmol/L [facility] Urea nitrogen [Mass/Vol] 15 mg/dL 9 - 20 mg/d L [facility] CBC (HEMOGRAM)on 07-08-2024 Erythrocyte distribution width (RBC) [Ratio] 14.7 % Normal 11.5-15.0 [facility] Comment on above: Performed By: #### L [id number] ####Electrical High Tension Tester: ISRAEL TAN ([id number])[address] Hematocrit (Bld) [Volume fraction] 33.9 % Low 40.0-52.0 [facility] Comment on above: Performed By: #### L [id number] ####Electrical High Tension Tester: ISRAEL TAN ([id number])[address] Hemoglobin (Bld) [Mass/Vol] 10.8 g/dL Low 13.0-18.0 [facility] Comment on above: Performed By: #### L [id number] ####Electrical High Tension Tester: ISRAEL [id number])[facility])[address] [place] [address] MCH (RBC) [Entitic mass] 29.0 pg Normal 26.0-34.0 [facility] Comment on above: Performed By: #### L [id number] ####Electrical High Tension Tester: ISRAEL TAN ([id number])[facility] ([facility])[address] [place] [address] MCHC 31.9 % Normal 30.5-36.0 [facility] Comment on above: Performed By: #### L [id number] ####Electrical High Tension Tester: ISRAEL TAN ([id number])[facility] ([facility])[address] [place] [address] MCV (RBC) [Entitic vol] 90.9 fL Normal 77.0-99.0 S [facility] Comment on above: Performed By: #### L [id number] ####Electrical High Tension Tester: ISRAEL TAN ([id number])[facility] ([facility])[address] [place] [address] Platelet mean volume (Bld) [Entitic vol] 10.6 fL Normal 9.0-12.7 [facility] Comment on above: Performed By: #### L [id number] ####Electrical High Tension Tester: ISRAEL TAN ([id number])[facility] ([facility])[address] [place] [address] Platelets (Bld) [#/Vol] 121 10*3/uL Low 140-440 [facility] Comment on above: Performed By: #### L [id number] ####Electrical High Tension Tester: ISRAEL TAN ([id number])[facility] ([facility])[address] [place] [address] RBC (Bld) [#/Vol] 3.73 10*6/uL Low 4.40-5.90 [facility] Comment on above: Performed By: #### L [id number] ####Electrical High Tension Tester: ISRAEL TAN ([id number])[facility] ([facility])[address] [place] [address] [place] WBC (Bld) [#/Vol] 3.8 10*3/uL Normal 3.6-10.7 [facility] Comment on above: Performed By: #### L [id number] ####Electrical High Tension Tester: ISRAEL TAN ([id number])[facility] ([facility])[address] [place] [address] CBC panel Auto (Bld)on 07-08 Erythrocyte distribution width (RBC) [Ratio] 14.7 % 11.5 - 15.0 % [facility] Hematocrit (Bld) [Volume fraction] 33.9 % Low 40.0 - 52.0 % [facility] Hemoglobin (Bld) [Mass/Vol] 10.8 g/dL Low 13.0 - 18.0 g/dL [facility] Interpretation and review of laboratory results Abnormal [facility] MCH (RBC) [Entitic mass] 29.0 pg 26. 0 - 34.0 pg [facility] MCHC (RBC) [Mass/Vol] 31.9 % 30.5 - 36.0 % [facility] MCV (RBC) [Entitic vol] 90.9 fL 77.0 - 99.0 fL [facility] Platelet mean volume (Bld) [Entitic vol] 10.6 fL 9.0 - 12.7 fL [facility] Platelets (Bld) [#/Vol] 121 10*3/uL Low 140 - 440 10*3/uL [facility] RBC (Bld) [#/Vol] 3.73 10*6/uL Low 4.40 - 5.9 0 10*6/uL [facility] WBC (Bld) [#/Vol] 3.8 10*3/uL 3.6 - 10.7 10*3/uL [facility] Laboratory - Coagulationon 0 07-08-2024 PT Coag (Bld) [Time] 14.1 s High 9.0 - 12.0 s [facility] Op Noteon 07-08-2024 Op Note TAVR Procedural Repo rt Interventional Cardiologists: -Jero Reyes MD -Anthony Smith MD (Fellow) Cardiothoracic Surgeon: -Aj Luong MD -I served as the cardiothoracic surgeon in collaboration with the structural cardiology team. I was readily available in the event that emergency surgical intervention was required and was present for caal portions of the procedure. Please see Dr. Reyes's procedural report for further details. Procedure: 1. A 29-ILEANA S3 VALVE IMPLANTATION (nominal + 3). 2. TRANSFEMORAL TRANSCATHETER AORTIC VALVE REPLACEMENT. Preoperative Diagnosis: Severe and symptomatic aortic stenosis. Postoperative Diagnosis: Severe aortic stenosis. Anesthesia: Moderate Conscious Sedation History of Present Illness: This is a very pleasant 73 y.o. male with a history of severe and symptomatic aortic stenosis. his case was discussed in our multidisciplinary valve conference and was felt to be of appropriate candidacy for TAVR. The pros, cons, risks, benefits, and alternatives of transcatheter aortic valve replacement were reviewed with the patient, and questions were answered, he provided informed consent and wished to proceed with the procedure. Description of Procedure: The patient was brought to the operating suite by anesthesia. The patient was placed under moderate sedation. The patient was then cleaned, prepped and draped in the normal sterile manner. Access was then gained in the right femoral artery, right artery, and right femoral vein. Via the right femoral vein, a 6 Icelandic sheath was placed and temporary pacing wire was placed into the RV apex with appropriate capture, in addition sterile tubing was attached and given the anesthesia for central access. Via right artery, a 6-Icelandic sheath was placed and the pigtail catheter was placed into the aortic annulus with confirmation the implant angle. Via the right femoral artery, a 6-Icelandic sheath was placed. The patient was then heparinized. Next, two Perclose devices were used using the pre-close strategy. An Amplatz Super Stiffwire was then placed through the second Perclose into the descending aorta. Then, a 16-Icelandic Ileana E-sheath was introduced over the wire into the descending aorta. The sheath was then flushed. Next, an AL1 catheter and a straight wire were used to cross the aortic valve through the e- sheath. The straight wire was then removed and an Amplatz extra stiff wire (formed into a curve) was placed into the LV apex. Next, the AL1 catheter was removed. Next a 29 mm Ileana S3 valve was then advanced through the sheath into the descending aorta.The valve was then mounted on the balloon, the delivery catheter was flexed and advanced around the aortic arch and across the aortic annulus. The valve was then deployed under rapid pacing (nominal + 2). Confirmation of an appropriate implant position and appropriately functioning valve was done using TTE. There was 1+ perivalvular aortic regurgitation post deployment so further inflation was performed (nominal + 3). Next, the delivery catheter, extra stiff wire, and large sheath were removed and the Perclose devices were used for hemostasis. A VascBand was used for hemostasis of the additional arterial site. Manual pressure was used for hemostasis of the femoral venous access site. Overall, the patient tolerated the procedure well with minimal blood loss. No immediate complications. The patient will return to the Cardiac Care unit for continued monitoring. Normal [facility] PROTHROMBIN TIMEon INR Coag (PPP) [Relative time] 1.3 {INR} High 0.9-1.1 [facility] Comment on above: Result Comment: Navin mmended Anticoagulant Therapy: SEE BELOW ----- INR of 2.0 - 3.0 : - Prophylaxis of Venous Thrombosis (high-risk surgery) - Treatment of Venous Thrombosis - Treatment of Pulmonary Embolism (Includes tissue heart valves, Acute Myocardial Infarction to prevent systemic embolism, Valvular Heart Disease, and Atrial Fibrillation) ----- INR of 2.5 - 3.5 : - Mechanical Prosthetic Valves (high risk) - If oral 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 therapy is used to prevent Myocardial Infarction Performed By: #### L [id number] ####Electrical High Tension Tester: ISRAEL TAN ([id number])[address] PT Coag (PPP) [Time] 14.1 s High 9.0-12.0 [facility] Comment on above: Performed By: #### L [id number] ####Electrical High Tension Tester: ISRAEL TAN ([id number])[facility])[address] [place] [address] PT Coag (Bld) [Time]on 07-08 INR Coag (PPP) [Relative time] 1.3 {INR} High 0.9 - 1.1 [facility] Comment on above: Recommended Anticoag ulant Therapy: SEE BELOW ----- INR of 2.0 - 3.0 : - Prophylaxis of Venous Thrombosis (high-risk surgery) - Treatment of Venous Thrombosis - Treatment of Pulmonary Embolism (Includes tissue heart valves, Acute Myocardial Infarction to prevent systemic embolism, Valvular Heart Disease, and Atrial Fibrillation) ----- INR of 2.5 - 3.5 : - Mechanical Prosthetic Valves (high risk) - If oral 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 therapy is used to prevent Myocardial Infarction Interpretation and review of laboratory results Abnormal [facility] US Heart Transthoracicon Aortic Sinus Valsalva 4.0 cm [facility] Aortic Sinus Valsalva Index 1.78 cm/m2 [facility] AR Max Velocity PISA 2.8 m/s [facility] AR PHT 353.7 ms [facility] Ascending Aorta 4.0 cm [facility] Ascending Aorta Index 1.78 cm/m2 [facility] AV Area by Peak Velocity 1.8 cm2 [facility] AV Area by VTI 1.8 cm2 [facility] AV Mean Gradient 12 mmHg [facility] AV Mean Velocity 1.6 m/s [facility] AV Peak Gradient 25 mmHg [facility] AV Peak Velocity 2.5 m/s [facility] AV Velocity Ratio 0.44 [facility] AV VTI 56.1 cm [facility] MARY/BSA Peak Velocity 0.8 cm2/m2 [facility] MARY/BSA VTI 0.8 cm2/m2 [facility] E/E' Lateral 9.93 [facility] E/E' Ratio (Averaged) 13.24 [facility] E/E' Septal 16.56 [facility] EF BP 65 % 55 - 100 % [facility] Est. RA Pressure 8 mmHg [facility] Fractional Shortening 2D 35 % 28 - 44 % [facility] Interpretation and review of laboratory results Abnormal [facility] IVC Diameter 2.2 cm [facility] IVSd 1.3 cm Abnormal 0.6 - 1.0 cm [facility] LA Volume 2C 140 mL Abnormal 18 - 58 mL [facility] LA Volume 4C 145 mL Abnormal 18 - 58 mL [facility] LA Volume A/L 152 mL [facility] LA Volume BP 147 mL Abnormal 18 - 58 mL [facility] LA Volume Index 2C 62 mL/m2 Abnormal 16 - 34 mL/m2 [facility] LA Volume Index 4C 64 mL/m2 Abnormal 16 - 34 mL/m2 [facility] LA Volume Index A/L 68 mL/m2 16 - 34 mL/m2 [facility] LA Volume Index BP 65 ml/m2 Abnormal 16 - 34 ml/m2 [facility] LV E' Lateral Velocity 15 cm/s [facility] LV E' Septal Velocity 9 cm/s [facility] LV EDV A2C 292 mL [facility] LV EDV A4C 198 mL [facility] LV EDV BP 250 mL Abnormal 67 - 155 mL [facility] LV EDV Index A2C 130 mL/m2 [facility] LV EDV Index A4C 88 mL/m2 [facility] LV EDV Index BP 111 mL/m2 [facility] LV Ejection Fraction A2C 53 % [facility] LV Ejection Fraction A4C 72 % [facility] LV ESV A2C 137 mL [facility] LV ESV A4C 55 mL [facility] LV ESV BP 86 mL Abnormal 22 - 58 mL [facility] LV ESV Index A2C 61 mL/m2 [facility] LV ESV Index A4C 24 mL/m2 [facility] LV ESV Index BP 38 mL/m2 [facility] LV Mass 2D 339.6 g Abnormal 88 - 224 g [facility] LV Mass 2D Index 151.0 g/m2 Abnormal 49 - 115 g/m2 [facility] LV RWT Ratio 0.49 [facility] LVIDd 5.7 cm 4.2 - 5.9 cm [facility] LVIDd Index 2.53 cm/m2 [facility] LVIDs 3.7 cm [facility] LVIDs Index 1.64 cm/m2 [facility] [employer] LVOT Area 3.8 cm2 [facility] LVOT Cardiac Output 7.5 liter/minute [facility] LVOT Diameter 2.2 cm [facility] LVOT Mean Gradient 2 mmHg [facility] LVOT Peak Gradient 5 mmHg [facility] LVOT Peak Velocity 1.1 m/s [facility] LVOT Stroke Volume Index 44.2 mL/m2 [facility] LVOT SV 99.5 ml [facility] LVOT VTI 26.2 cm [facility] LVOT:AV VTI Index 0.47 [facility] LVPWd 1.4 cm Abnormal 0.6 - 1.0 cm [facility] MV A Velocity 0.39 m/s [facility] MV E Velocity 1.49 m/s [facility] MV E Wave Deceleration Time 184.2 ms [facility] MV E/A 3.82 [facility] RA Area 4C 144.9 mL [facility] RA Area 4C 145.8 mL [facility] RA area length vol 145.0 mL [facility] RV Basal Dimension 4.9 cm [facility] RV Free Wall Peak S' 13 cm/s [facility] RV Mid Dimension 3.0 cm [facility] RVSP 46 mmHg [facility] TR Max Velocity 3.10 m/s [facility] Left Ventricle: Left ventricle is dilated. Mildly increased wall thickness. Normal left ventricular systolic function. EF by 2D Simpsons Biplane is 65%. Normal wall motion. Right Ventricle: Right ventricle is mildly dilated. Normal systolic function. Aortic Valve: Bioprosthetic aortic valve. AV mean gradient is 12 mmHg. No regurgitation. No paravalvular regurgitation. Mild stenosis of the aortic valve. AV mean gradient is 12 mmHg. AV peak gradient is 25 mmHg. AV peak velocity is 2.5 m/s. LVOT:AV VTI Index is 0.47. AV area by continuity VTI is 1.8 cm2. Tricuspid Valve: Mild (1+) regurgitation. Mildly elevated RVSP. RVSP is 46 mmHg. Aorta: Normal sized sinuses of Valsalva. Mildly dilated ascending aorta. Ao ascending diameter is 4.0 cm. Left Ventricle Left ventricle is dilated. Mildly increased wall thickness. Normal left ventricular systolic function. EF by 2D Simpsons Biplane is 65%. Normal wall motion. Right Ventricle Right ventricle is mildly dilated. Normal systolic function. Left Atrium Left atrium is moderately dilated. Right Atrium Right atrium is moderately dilated. IVC/SVC IVC is mildly dilated. IVC diameter is normal and decreases less than 50% during inspiration; therefore the estimated right atrial pressure is intermediate (~8 mmHg). Mitral Valve Severe annular calcification. No regurgitation. No stenosis noted. Tricuspid Valve Valve structure is normal. Mild (1+) regurgitation. Mildly elevated RVSP. RVSP is 46 mmHg. Aortic Valve Bioprosthetic aortic valve. AV mean gradient is 12 mmHg. No regurgitation. No paravalvular regurgitation. Mild stenosis of the aortic valve. AV mean gradient is 12 mmHg. AV peak gradient is 25 mmHg. AV peak velocity is 2.5 m/s. LVOT:AV VTI Index is 0.47. AV area by continuity VTI is 1.8 cm2. Pulmonic Valve Valve structure is normal. Trace regurgitation. Ascending Aorta Normal sized sinuses of Valsalva. Mildly dilated ascending aorta. Ao ascending diameter is 4.0 cm. Pericardium No pericardial effusion. Septum No interatrial shunt visualized on color Doppler. Study Details Image quality: fair. Heart rate: 58 bpm. Blood pressure: 100/60 mmHg. Technical qualifiers: Procedure performed with the patient in a supine position. No contrast was given. CV [facility] [employer] Left Ventricle: Left ventricle size is normal. Normal wall thickness. Normal left ventricular systolic function. EF by 2D Simpsons Biplane is 63%. Normal wall motion. Right Ventricle: Right ventricle size is normal. Normal systolic function. Aortic Valve: Yepez Ileana 3 Ultra bioprosthetic aortic valve with a size of 29 mm. AV mean gradient is 5 mmHg. Left Ventricle Left ventricle size is normal. Normal wall thickness. Normal left ventricular systolic function. EF by 2D Simpsons Biplane is 63%. Normal wall motion. Right Ventricle Right ventricle size is normal. Normal systolic function. Mitral Valve Valve structure is normal. Trace regurgitation. No stenosis noted. Tricuspid Valve Valve structure is normal. Mild (1+) regurgitation. Aortic Valve Yepez Ileana 3 Ultra bioprosthetic aortic valve with a size of 29 mm. AV mean gradient is 5 mmHg. Pulmonic Valve The pulmonic valve was not well visualized. Ascending Aorta Normal sized sinuses of Valsalva and ascending aorta. Study Details Image quality: poor. Blood pressure: 123/69 mmHg. Technical qualifiers: Technically difficult study and procedure performed with the patient in a supine position. No contrast was given. [facility] US Heart TransthoracicOrdere d By: Krys Franco on 07-08-2024 Ao Root Index 1.78 cm/m2 [facility] Phone: [phone] Aortic Root 4.0 cm [facility] [employer] Phone: Ascending Aorta 3.7 cm [facility] [employer] Phone: Ascending Aorta Index 1.64 cm/m2 [facility] [employer] Phone: AV Area by Peak Velocity 3.9 cm2 [facility] [employer] Phone: AV Area by VTI 4.1 cm2 [facility] [employer] Phone: AV Mean Gradient 5 mmHg [facility] [employer] Phone: AV Mean Velocity 1.1 m/s [facility] [employer] Phone: AV Peak Gradient 11 mmHg [facility] [employer] Phone: AV Peak Velocity 1.7 m/s [facility] [employer] Phone: AV Velocity Ratio 1.00 [facility] Work Phone: AV VTI 32.3 cm [facility] [employer] Work Phone: MARY/BSA Peak Velocity 1.7 cm2/m2 [facility] [employer] Work Phone: MARY/BSA VTI 1.8 cm2/m2 [facility] [employer] Work Phone: EF BP 63 % 55 - 100 % [facility] [employer] Work Phone: Fractional Shortening 2D 36 % 28 - 44 % [facility] [employer] Work Phone: Interpretation and review of laboratory results Abnormal [facility] [employer] Work Phone: IVSd 1.3 cm Abnormal 0.6 - 1.0 cm [facility] [employer] Work Phone: LV EDV A2C 152 mL [facility] Phone: LV EDV A4C 130 mL [facility] [employer] Phone: LV EDV BP 142 mL 67 - 155 mL [facility] Work Phone: LV EDV Index A2C 68 mL/m2 [facility] [employer] Work Phone: LV EDV Index A4C 58 mL/m2 [facility] Work Phone: LV EDV Index BP 63 mL/m2 [facility] Phone: LV Ejection Fraction A2C 58 % [facility] [employer] Phone: LV Ejection Fraction A4C 68 % [facility] [employer] Work Phone: LV ESV A2C 63 mL [facility] [employer] Work Phone: LV ESV A4C 41 mL [facility] [employer] Work Phone: LV ESV BP 52 mL 22 - 58 mL [facility] Work Phone: LV ESV Index A2C 28 mL/m2 [facility] Phone: LV ESV Index A4C 18 mL/m2 [facility] Phone: LV ESV Index BP 23 mL/m2 [facility] Work Phone: LV Mass 2D 331.4 g Abnormal 88 - 224 g [facility] [employer] Work Phone: LV Mass 2D Index 147.3 g/m2 Abnormal 49 - 115 g/m2 [facility] [employer] Work Phone: LV RWT Ratio 0.45 [facility] [employer] Work Phone: LVIDd 5.8 cm 4.2 - 5.9 cm [facility] [employer] Work Phone: LVIDd Index 2.58 cm/m2 [facility] [employer] Work Phone: LVIDs 3.7 cm [facility] [employer] Work Phone: LVIDs Index 1.64 cm/m2 [facility] [employer] Work Phone: LVOT Area 3.8 cm2 [facility] [employer] Work Phone: LVOT Cardiac Output 9.9 liter/minute [facility] [employer] Work Phone: LVOT Diameter 2.2 cm [facility] [employer] Work Phone: LVOT Mean Gradient 5 mmHg [facility] [employer] Work Phone: LVOT Peak Gradient 11 mmHg [facility] [employer] Work Phone: LVOT Peak Velocity 1.7 m/s [facility] [employer] Work Phone: LVOT Stroke Volume Index 56.2 mL/m2 [facility] [employer] Work Phone: LVOT SV 126.5 ml [facility] [employer] Work Phone: LVOT VTI 33.3 cm [facility] [employer] Work Phone: LVOT:AV VTI Index 1.03 [facility] [employer] Work Phone: LVPWd 1.3 cm Abnormal 0.6 - 1.0 cm [facility] [employer] Work Phone: TR Max Velocity 3.65 m/s [facility] [employer] Work Phone: TR Peak Gradient 53 mmHg [facility] [employer] Work Phone: [facility] [employer] Work Phone: No Panel Informationon 07-07 Blood Expiration Date [id number] [facility] Crossmatch interpretation COMP [facility] Dispense Status Crossmatch [facility] [employer] Product Blood Type 6200 [facility] [employer] PRODUCT CODE [id number] [facility] ABO A [facility] Unit Number [id number] [facility] Number [id number] [facility] RH Positive [facility] Volume 300 mL [facility] 36on 07-05-2024 36 Left detailed messag e for patient's son Rich on arrival time and location. Instructed to call office back should any questions arise. Per Dawit Newberry APRN prep for proc completed. Normal [facility] 36on 07-03-2024 36 Snapboard updated Normal [facility] CT ANGIOGRAM TAVRon 07-03-[address] ANGIOGRAM TAVR Patient Name: ANDER MONTEIRO : 1950 Exam Date/Time: 07/02/2024 12:05 Procedure: CT ANGIOGRAM TAVR Ordering Provider: BOWER MICHELLE Reason For Exam: Aortic valve replacement (TAVR), pre-op eval --------ADDENDUM #1 -------- This is a radiology addendum for the noncardiovascular findings on the CT images of the chest, abdomen, and pelvis obtained for this examination: No focal consolidation is seen within the lungs. There is no pleural effusion or pneumothorax. No suspicious pulmonary nodules are identified. No lymphadenopathy is seen within the chest. The liver, gallbladder, spleen, pancreas, adrenal glands, and left kidney appear within normal limits. A small right renal cyst is noted. Mildly enlarged lower retroperitoneal, iliac, and inguinal lymph nodes are noted, nonspecific in appearance. The urinary bladder appears grossly normal. The prostate is not definitely enlarged. Large and small bowel loops do not appear abnormally dilated or thickened. There is no free fluid or free air within the abdomen or pelvis. Diffuse thickening of the skin of the patient's pannus is noted with mild diffuse stranding of the subcutaneous fat. No fluid collection or soft tissue gas is seen. No lytic or blastic lesions are seen on the bone windows. IMPRESSION: There are mildly enlarged pelvic and inguinal lymph nodes bilaterally, which are nonspecific in appearance. These may be reactive. Follow-up CT of the abdomen and pelvis may be helpful to confirm stability or resolution. Diffuse thickening of the skin of the patient's pannus with mild diffuse stranding of the subcutaneous fat is also nonspecific and may reflect cellulitis. There is no evidence of abscess formation or soft tissue gas. Please correlate clinically. Please see Dr. Franco's original report for cardiovascular findings and measurements. Report Dictated on Electronically Signed By: David Key MD Electronically Signed Date/Time: 07/03/2024 11:15 AM EDT --------ORIGINAL REPORT -------- [facility] Valve [facility] Cardiovascular CTA Indication: 73 year-old man with severe aortic stenosis, being evaluated for transcatheter aortic valve implantation. Technique: Computed tomography of the heart, thoracoabdominal aorta, and iliofemoral system was performed using a [employer] Aquilion One 320 detector scanner. Images were reconstructed and analyzed on an advanced post-processing 3D workstation. Contrast: 100 mL Total DLP: 2343.7 mGy-cm Study Quality: average Extracardiac Findings: For a complete description of extracardiac structures, please refer to the accompanying radiology addendum. Cardiac Chambers: The pericardium is unremarkable. The left and right ventricles are normal in size. The left atrium is severely dilated. The left atrial appendage is normal in appearance. The right atrium is severely dilated. Coronary Arteries: The coronaries have normal origins. There is a pattern of right coronary dominance. There is evidence of coronary atherosclerosis. The present study was not optimized for evaluation of the coronary arteries. Mitral Valve: The mitral annulus has moderate calcification, without significant extension into the LVOT. The anterior mitral leaflet is free of the LVOT during systole. Aortic Valve: The aortic valve is tricuspid. The aortic valve is severely calcified, the calcium score is 4158 AU (calcium score per cusp is LCC 1653 AU, RCC 1135 AU and NCC 1370 AU). Predicted deployment angle (3-cusp view): MONEGASQUE 9, CAU 3 Aortic Annulus: Dimensions: 3.54 x 2.70 cm Area: 7.74 cm2 Perimeter: 100 mm Left coronary height: 11.4 mm Right Coronary height: 19.7 mm Aorta and Iliofemoral System: All vascular measurements are minimal luminal diameters using a centerline technique. Aortic Root and Thoracic Aorta: Sinuses of Valsalva: 41 mm Sinotubular junction: 36 mm Mid ascending Aorta: 42 mm, mildly dilated Abdominal Aorta: moderate diffuse calcifications with mild ectasia Infrarenal: 23 mm Bifurcation: 22 mm Right Iliac System: Calcification: mild. Tortuosity: severe. RCIA: 12 mm REIA: 10 mm RCFA: 10 mm Left Iliac System: Calcification: moderate. Tortuosity: severe. LCIA: 10 mm HELIO: 11 mm LCFA: 9 mm CONCLUSIONS: 1. Calcific aortic stenosis, with descriptive anatomy and annular / aortic root measurements as detailed above. 2. Patent bilateral iliofemoral system as detailed above. Krys Franco MD Report Dictated on Electronically Signed By: Krys Franco Electronically Signed Date/Time: 07/03/2024 8:10 AM EDT Patient Name: ANDER MONTEIRO : 1950 Exam Date/Time: 07/02/2024 12:05 Procedure: CT ANGIOGRAM TAVR Ordering Provider: BOWER MICHELLE Reason For Exam: Aortic valve replacement (TAVR), pre-op [facility] Cardiovascu (more content not included)... Normal [facility] CT Chest WO and CT angiogram Coronary arteries W contrast Kevin 07-03-2024 Patient Name: ANDER MONTEIRO : 1950 Exam Date/Time: 07/02/2024 12:05 Procedure: CT ANGIOGRAM TAVR Ordering Provider: BOWER MICHELLE Reason For Exam: Aortic valve replacement (TAVR), pre-op [facility] Cardiovascular CTA Indication: 73 year-old man with severe aortic stenosis, being evaluated for transcatheter aortic valve implantation. Technique: Computed tomography of the heart, thoracoabdominal aorta, and iliofemoral system was performed using a [employer] Aquilion One 320 detector scanner. Images were reconstructed and analyzed on an advanced post-processing 3D workstation. Contrast: 100 mL Total DLP: 2343.7 mGy-cm Study Quality: average Extracardiac Findings: For a complete description of extracardiac structures, please refer to the accompanying radiology addendum. Cardiac Chambers: The pericardium is unremarkable. The left and right ventricles are normal in size. The left atrium is severely dilated. The left atrial appendage is normal in appearance. The right atrium is severely dilated. Coronary Arteries: The coronaries have normal origins. There is a pattern of right coronary dominance. There is evidence of coronary atherosclerosis. The present study was not optimized for evaluation of the coronary arteries. Mitral Valve: The mitral annulus has moderate calcification, without significant extension into the LVOT. The anterior mitral leaflet is free of the LVOT during systole. Aortic Valve: The aortic valve is tricuspid. The aortic valve is severely calcified, the calcium score is 4158 AU (calcium score per cusp is LCC 1653 AU, RCC 1135 AU and NCC 1370 AU). Predicted deployment angle (3-cusp view): MONEGASQUE 9, CAU 3 Aortic Annulus: Dimensions: 3.54 x 2.70 cm Area: 7.74 cm2 Perimeter: 100 mm Left coronary height: 11.4 mm Right Coronary height: 19.7 mm Aorta and Iliofemoral System: All vascular measurements are minimal luminal diameters using a centerline technique. Aortic Root and Thoracic Aorta: Sinuses of Valsalva: 41 mm Sinotubular junction: 36 mm Mid ascending Aorta: 42 mm, mildly dilated Abdominal Aorta: moderate diffuse calcifications with mild ectasia Infrarenal: 23 mm Bifurcation: 22 mm Right Iliac System: Calcification: mild. Tortuosity: severe. RCIA: 12 mm REIA: 10 mm RCFA: 10 mm Left Iliac System: Calcification: moderate. Tortuosity: severe. LCIA: 10 mm HELIO: 11 mm LCFA: 9 mm CONCLUSIONS: 1. Calcific aortic stenosis, with descriptive anatomy and annular / aortic root measurements as detailed above. 2. Patent bilateral iliofemoral system as detailed above. Krys Franco MD Report Dictated on Electronically Signed By: Krys Franco Electronically Signed Date/Time: 07/03/2024 8:10 AM T [facility] Krys Franco MD - 07/03/2024 Patient Name: ANDER MONTEIRO : 1950 [facility]#: [id number] Exam Date/Time: 07/02/2024 12:05 Procedure: CT ANGIOGRAM TAVR Ordering Provider: BOWER MICHELLE Reason For Exam: Aortic valve replacement (TAVR), pre-op eval [facility] Cardiovascular CTA Indication: 73 year-old man with severe aortic stenosis, being evaluated for transcatheter aortic valve implantation. Technique: Computed tomography of the heart, thoracoabdominal aorta, and iliofemoral system was performed using a [employer] Aquilion One 320 detector scanner. Images were reconstructed and analyzed on an advanced post-processing 3D workstation. Contrast: 100 mL Total DLP: 2343.7 mGy-cm Study Quality: average Extracardiac Findings: For a complete description of extracardiac structures, please refer to the accompanying radiology addendum. Cardiac Chambers: The pericardium is unremarkable. The left and right ventricles are normal in size. The left atrium is severely dilated. The left atrial appendage is normal in appearance. The right atrium is severely dilated. Coronary Arteries: The coronaries have normal origins. There is a pattern of right coronary dominance. There is evidence of coronary atherosclerosis. The present study was not optimized for evaluation of the coronary arteries. Mitral Valve: The mitral annulus has moderate calcification, without significant extension into the LVOT. The anterior mitral leaflet is free of the LVOT during systole. Aortic Valve: The aortic valve is tricuspid. The aortic valve is severely calcified, the calcium score is 4158 AU (calcium score per cusp is LCC 1653 AU, RCC 1135 AU and NCC 1370 AU). Predicted deployment angle (3-cusp view): MONEGASQUE 9, CAU 3 Aortic Annulus: Dimensions: 3.54 x 2.70 cm Area: 7.74 cm2 Perimeter: 100 mm Left coronary height: 11.4 mm Right Coronary height: 19.7 mm Aorta and Iliofemoral System: All vascular measurements are minimal luminal diameters using a centerline technique. Aortic Root and Thoracic Aorta: Sinuses of Valsalva: 41 mm Sinotubular junction: 36 mm Mid ascending Aorta: 42 mm, mildly dilated Abdominal Aorta: moderate diffuse calcifications with mild ectasia Infrarenal: 23 mm Bifurcation: 22 mm Right Iliac System: Calcification: mild. Tortuosity: severe. RCIA: 12 mm REIA: 10 mm RCFA: 10 mm Left Iliac System: Calcification: moderate. Tortuosity: severe. LCIA: 10 mm HELIO: 11 mm LCFA: 9 mm CONCLUSIONS: 1. Calcific aortic stenosis, with descriptive anatomy and annular / aortic root measurements as detailed above. 2. Patent bilateral iliofemoral system as detailed above. Krys Franco MD Report Dictated on Electronically Signed By: Krys Franco Electronically Signed Date/Time: 07/03/2024 8:10 AM EDT [facility] CT Chest WO and CT angiogram Coronary arteries W contrast IVOrdered By: Krys Franco on 07-03-2024 [facility] Work Phone: 36on 07-02-2024 36 Surgeon for TAVR on 07/08 will be Kia Schmitt notified to update. Normal [facility] ABO and Rh group Confirm Nom (Bld)on 07-02-2024 ABO group Nom (Bld) A [facility] D Ag Ql (RBC) Positive [facility] BLOOD TYPE AND SCREEN GELon 07-02-2024 ABO GROUPING A Normal [facility] Comment on above: Performed By: #### L [id number] ####Electrical High Tension Tester: ISRAEL TAN ([id number])[facility] BLOOD [facility])[address] [place] [address] RH TYPE IN BLOOD Positive Normal [facility] Comment on above: Performed By: #### L [id number] ####Electrical High Tension Tester: ISRAEL TAN ([id number])[facility] BLOOD [facility] ([facility])[address] [place] [address] Blood type and Crossmatch pa jose francisco (Bld)on 07-02-2024 ABO group Nom (Bld) A [facility] Blood group antibody screen GEL Ql Negative [facility] D Ag Ql (RBC) Positive [facility] CBC W Auto Differential pane l (Bld)on 07-02-2024 Basophils (Bld) [#/Vol] 0.1 10*3/uL 0.0 - 0.2 10*3/uL [facility] Basophils/100 WBC (Bld) 1.8 % 0.0 - 2.0 % [facility] Eosinophils (Bld) [#/Vol] 0.2 10*3/uL 0. 0 - 0.5 10*3/uL [facility] Eosinophils/100 WBC (Bld) 3.9 % 0.0 - 6.0 % [facility] Erythrocyte distribution width (RBC) [Ratio] 14.8 % 11.5 - 15.0 % [facility] Hematocrit (Bld) [Volume fraction] 36.1 % Low 40.0 - 52.0 % [facility] Hemoglobin (Bld) [Mass/Vol] 11.4 g/dL Low 13.0 - 18.0 g/dL [facility] Immature granulocytes (Bld) [#/Vol] 0.0 10*3/uL NINF - 0.1 10*3/uL [facility] Immature granulocytes/100 WBC (Bld) 0.2 % 0.0 - 2.0 % [facility] Interpretation and review of laboratory results Abnormal [facility] Lymphocytes (Bld) [#/Vol] 1.2 10*3/uL 1. 0 - 4.3 10*3/uL [facility] Lymphocytes/100 WBC (Bld) 26.5 % 15 .0 - 45.0 % [facility] MCH (RBC) [Entitic mass] 28.7 pg 26. 0 - 34.0 pg [facility] MCHC (RBC) [Mass/Vol] 31.6 % 30.5 - 36.0 % [facility] MCV (RBC) [Entitic vol] 90.9 fL 77.0 - 99.0 fL [facility] Monocytes (Bld) [#/Vol] 0.6 10*3/uL 0.0 - 0.9 10*3/uL [facility] Monocytes/100 WBC (Bld) 12.7 % 5.0 - 13.0 % [facility] Neutrophils (Bld) [#/Vol] 2.5 10*3/uL 1. 8 - 7.5 10*3/uL [facility] Neutrophils/100 WBC (Bld) 54.9 % 38 .0 - 82.0 % [facility] Nucleated RBC/100 WBC (Bld) [Ratio] 0.0 % [facility] Platelet mean volume (Bld) [Entitic vol] 11.5 fL 9.0 - 12.7 fL [facility] Platelets (Bld) [#/Vol] 147 10*3/uL 140 - 440 10*3/uL [facility] RBC (Bld) [#/Vol] 3.97 10*6/uL Low 4.40 - 5.9 0 10*6/uL [facility] WBC (Bld) [#/Vol] 4.6 10*3/uL 3.6 - 10.7 10*3/uL [facility] CBC WITH AUTO DIFFERENTIALon 07-02-2024 Basophils (Bld) [#/Vol] 0.1 10*3/uL Normal 0.0-0.2 [facility] Comment on above: Performed By: #### L [id number] ####Electrical High Tension Tester: ISRAEL TAN ([id number])[facility] ([facility])[address] [place] [address] Basophils/100 WBC (Bld) 1.8 % Normal 0.0-2.0 S [facility] Comment on above: Performed By: #### L [id number] ####Electrical High Tension Tester: ISRAEL TAN ([id number])[facility] ([facility])[address] [place] [address] [place] Eosinophils (Bld) [#/Vol] 0.2 10*3/uL Normal 0.0-0.5 [facility] Comment on above: Performed By: #### L [id number] ####Electrical High Tension Tester: ISRAEL TAN ([id number])[facility] ([facility])[address] [place] [address] [place] Eosinophils/100 WBC (Bld) 3.9 % Normal 0.0-6.0 [facility] Comment on above: Performed By: #### L [id number] ####Electrical High Tension Tester: ISRAEL TAN ([id number])[facility] ([facility])[address] [place] [address] Erythrocyte distribution width (RBC) [Ratio] 14.8 % Normal 11.5-15.0 [facility] Comment on above: Performed By: #### L [id number] ####Electrical High Tension Tester: ISRAEL TAN ([id number])[facility])[address] [place] [address] Hematocrit (Bld) [Volume fraction] 36.1 % Low 40.0-52.0 [facility] Comment on above: Performed By: #### L [id number] ####Electrical High Tension Tester: ISRAEL TAN ([id number])[facility])[address] [place] [address] Hemoglobin (Bld) [Mass/Vol] 11.4 g/dL Low 13.0-18.0 [facility] Comment on above: Performed By: #### L [id number] ####Electrical High Tension Tester: ISRAEL TAN ([id number])[facility])[address] [place] [address] IMMATURE GRANS % 0.2 % Normal 0.0-2.0 [facility] Comment on above: Performed By: #### L [id number] ####Electrical High Tension Tester: ISRAEL TAN ([id number])[facility])[address] [place] [address] IMMATURE GRANS ABSOLUTE 0.0 10*3/uL Normal <0.1 [facility] Comment on above: Performed By: #### L [id number] ####Electrical High Tension Tester: ISRAEL TAN ([id number])[facility])[address] [place] [address] Lymphocytes (Bld) [#/Vol] 1.2 10*3/uL Normal 1.0-4.3 [facility] Comment on above: Performed By: #### L [id number] ####Electrical High Tension Tester: ISRAEL TAN ([id number])[facility])[address] [place] [address] Lymphocytes/100 WBC (Bld) 26.5 % Normal 15.0-45.0 [facility] Comment on above: Performed By: #### L [id number] ####Electrical High Tension Tester: ISRAEL TAN ([id number])[facility])[address] [place] [address] MCH (RBC) [Entitic mass] 28.7 pg Normal 26.0-34.0 [facility] Comment on above: Performed By: #### L [id number] ####Electrical High Tension Tester: ISRAEL TAN ([id number])[facility])[address] [place] [address] MCHC 31.6 % Normal 30.5-36.0 [facility] Comment on above: Performed By: #### L [id number] ####Electrical High Tension Tester: ISRAEL TAN ([id number])[facility])[address] [place] [address] MCV (RBC) [Entitic vol] 90.9 fL Normal 77.0-99.0 S [facility] Comment on above: Performed By: #### L [id number] ####Electrical High Tension Tester: ISRAEL TAN ([id number])[facility])[address] [place] [address] Monocytes (Bld) [#/Vol] 0.6 10*3/uL Normal 0.0-0.9 [facility] Comment on above: Performed By: #### L [id number] ####Electrical High Tension Tester: ISRAEL TAN ([id number])[facility])[address] [place] [address] Monocytes/100 WBC (Bld) 12.7 % Normal 5.0-13.0 [facility] Comment on above: Performed By: #### L [id number] ####Electrical High Tension Tester: ISRAEL TAN ([id number])[facility])[address] [place] [address] NEUTROPHILS ABSOLUTE 2.5 10*3/uL Normal 1.8-7.[address] [facility] Comment on above: Performed By: #### L [id number] ####Electrical High Tension Tester: ISRAEL TAN ([id number])[facility])[address] [place] [address] Neutrophils/100 WBC (Bld) 54.9 % Normal 38.0-82.0 [facility] Comment on above: Performed By: #### L [id number] ####Electrical High Tension Tester: ISRAEL ATN ([id number])[facility] ([facility])[address] [place] [address] NRBC 0.0 /100 WBCs Normal 0.0-2.0 [facility] Comment on above: Performed By: #### L [id number] ####Electrical High Tension Tester: ISRAEL TAN ([id number])[facility] ([facility])[address] [place] [address] Platelet mean volume (Bld) [Entitic vol] 11.5 fL Normal 9.0-12.7 [facility] Comment on above: Performed By: #### L [id number] ####Electrical High Tension Tester: ISRAEL TAN ([id number])[facility] ([facility])[address] [place] [address] Platelets (Bld) [#/Vol] 147 10*3/uL Normal 140-440 [facility] Comment on above: Performed By: #### L [id number] ####Electrical High Tension Tester: ISRAEL TAN ([id number])[facility] ([facility])[address] [place] [address] RBC (Bld) [#/Vol] 3.97 10*6/uL Low 4.40-5.90 [facility] Comment on above: Performed By: #### L [id number] ####Electrical High Tension Tester: ISRAEL TAN ([id number])[facility] ([facility])[address] [place] [address] WBC (Bld) [#/Vol] 4.6 10*3/uL Normal 3.6-10.7 [facility] Comment on above: Performed By: #### L [id number] ####Electrical High Tension Tester: ISRAEL TAN ([id number])[facility])[address] [place] [address] COMPREHENSIVE METABOLIC PANE Marques 07-02-2024 Albumin [Mass/Vol] 3.5 g/dL Normal 3.5-5.0 [facility] Comment on above: Performed By: #### L [id number] ####Electrical High Tension Tester: ISRAEL TAN ([id number])[facility] [place] [address] ALP [Catalytic activity/Vol] 77 U/L Normal 38-126 [facility] Comment on above: Performed By: #### L [id number] ####Electrical High Tension Tester: ISRAEL TAN ([id number])[facility] ([facility])[address] [place] [address] [place] ALT [Catalytic activity/Vol] 13 U/L Normal 0-49 [facility] Comment on above: Performed By: #### L [id number] ####Electrical High Tension Tester: ISRAEL TAN ([id number])[facility] ([facility])[address] [place] [address] Anion gap [Moles/Vol] 4 mmol/L Normal 3-[address] [facility] Comment on above: Performed By: #### L [id number] ####Electrical High Tension Tester: ISRAEL TAN ([id number])[facility] ([facility])[address] [place] [address] AST [Catalytic activity/Vol] 25 U/L Normal 15-46 [facility] Comment on above: Performed By: #### L [id number] ####Electrical High Tension Tester: ISRAEL TAN ([id number])[facility] ([facility])[address] [place] [address] Bilirubin [Mass/Vol] 0.9 mg/dL Normal 0.2-1.3 [facility] Comment on above: Performed By: #### L [id number] ####Electrical High Tension Tester: SIRAEL TAN ([id number])[facility] ([facility])[address] [place] [address] Calcium [Mass/Vol] 9.5 mg/dL Normal 8.4-10.4 [facility] Comment on above: Performed By: #### L [id number] ####Electrical High Tension Tester: ISRAEL TAN ([id number])[facility] ([facility])[address] [place] [address] [place] Chloride [Moles/Vol] 108 mmol/L High 98-107 [facility] Comment on above: Performed By: #### L [id number] ####Electrical High Tension Tester: ISRAEL TAN ([id number])[facility])[address] [place] [address] CO2 [Moles/Vol] 25 mmol/L Normal 22-30 [facility] Comment on above: Performed By: #### L [id number] ####Electrical High Tension Tester: ISRAEL TAN ([id number])[facility])[address] [place] [address] Creatinine [Mass/Vol] 0.64 mg/dL Low 0.66-1.25 [facility] Comment on above: Performed By: #### L [id number] ####Electrical High Tension Tester: ISRAEL TAN ([id number])[facility])[address] [place] [address] GLOMERULAR FILTRATION RATE ML/MIN/1.73 SQ M.PREDICTED >90.0 Normal >60.0 [facility] Comment on above: Result Comment: Calc ulation based on the Chronic Kidney Disease Epidemiology Collaboration (CKD-EPI) equation refit without adjustment for race Performed By: #### L [id number] ####Electrical High Tension Tester: ISRAEL TAN ([id number])[facility])[address] [place] [address] Glucose [Mass/Vol] 86 mg/dL Normal 70-100 [facility] Comment on above: Performed By: #### L [id number] ####Electrical High Tension Tester: ISRAEL TAN ([id number])[facility])[address] [place] [address] Potassium [Moles/Vol] 4.0 mmol/L Normal 3.5-5.[address] [facility] Comment on above: Performed By: #### L [id number] ####Electrical High Tension Tester: ISRAEL TAN ([id number])[facility])[address] [place] [address] Protein [Mass/Vol] 7.1 g/dL Normal 6.3-8.2 [facility] Comment on above: Performed By: #### L [id number] ####Electrical High Tension Tester: ISRAEL [id number])[facility] ([facility])[address] [place] [address] Sodium [Moles/Vol] 137 mmol/L Normal 135-145 [facility] Comment on above: Performed By: #### L [id number] ####Electrical High Tension Tester: ISRAEL TAN ([id number])[facility] ([facility])[address] [place] [address] Urea nitrogen [Mass/Vol] 17 mg/dL Normal 9-20 [facility] Comment on above: Performed By: #### L [id number] ####Electrical High Tension Tester: ISRAEL TAN ([id number])[facility] [place] [address] CT Chest WO and CT angiogram Coronary arteries W contrast Kevin 07-02-2024 Radiology Study observation (narrative) [facility] Comprehensive metabolic 1998 panelon 07-02-2024 Albumin [Mass/Vol] 3.5 g/dL 3.5 - 5.0 g/dL [facility] ALP [Catalytic activity/Vol] 77 U/L 38 - 126 U/L [facility] ALT [Catalytic activity/Vol] 13 U/L 0 - 49 U/L [facility] Anion gap [Moles/Vol] 4 mmol/L 3 - 13 mmol/L [facility] AST [Catalytic activity/Vol] 25 U/L 15 - 46 U/L [facility] Bilirubin [Mass/Vol] 0.9 mg/dL 0.2 - 1 .3 mg/dL [facility] Calcium [Mass/Vol] 9.5 mg/dL 8.4 - 10. 4 mg/dL [facility] Chloride [Moles/Vol] 108 mmol/L High 98 - 10 7 mmol/L [facility] CO2 [Moles/Vol] 25 mmol/L 22 - 30 mmol/L [facility] Creatinine [Mass/Vol] 0.64 mg/dL Low 0.66 - 1.25 mg/dL [facility] GFR/1.73 sq M.predicted (S/P/Bld) [Vol rate/Area] - PINF [facility] Comment on above: Calculation based on the Chronic Kidney Disease Epidemiology Collaboration (CKD-EPI) equation refit without adjustment for race Glucose [Mass/Vol] 86 mg/dL 70 - 100 mg/dL [facility] Interpretation and review of laboratory results Abnormal [facility] Potassium [Moles/Vol] 4.0 mmol/L 3.5 - 5.1 mmol/L [facility] Protein [Mass/Vol] 7.1 g/dL 6.3 - 8.2 g/dL [facility] Sodium [Moles/Vol] 137 mmol/L 135 - 145 mmol/L [facility] Urea nitrogen [Mass/Vol] 17 mg/dL 9 - 20 mg/d L [facility] Office Visiton 07-02-2024 Follow-up visit [id number] Marlon Monteiro 1950 M Date Provider Department Center 07/02/2024 [id number] [facility] [address] No family history on file Level of Service:34641 DE OFFICE/OUTPATIENT ESTABLISHED MOD MDM 30 MIN Reason for Visit and Comments: Pre-op Exam [[id number]] - Updated H&P Normal [facility] Progress Noteon 07-02-2024 Progress Note Well controlled on current medications Normal [facility] Progress Note Hold coumadin 4 days prior to TAVR. Take ASA 81 mg daily while coumadin is on hold. Normal [facility] Progress Note [facility] [address] [facility] [address] Dept: [phone] Dept Loc: [phone] Reason for Visit: Pre-op Exam (Updated H&P) Assessment and Plan 1. Severe aortic stenosis Assessment & Plan: Pre procedure CXR, CTA and labs to be done today. Pre procedure teaching completed in the office with written instructions provided to patient. All questions answered. Ander Monteiro participated in a shared decision making process regarding treatment of aortic stenosis. Ander Monteiro was made aware of the techniques for aortic valve implantation, the risks and benefits for both forms of AVR therapy, medical management or a palliative care strategy, and the multidisciplinary team's recommendations to facilitate achieving the best outcome given specific risk, characteristics, and goals of care. Ander Monteiro was engaged in the decision and expressed understanding and acceptance of the plan. Orders: - ECG 12 lead - CLINIC PERFORMED 2. Chronic heart failure with preserved ejection fraction (HCC) Assessment & Plan: Progressive worsening symptoms with recent HF admission. Weight stable -continue current doses of Entresto 3. Essential hypertension Assessment & Plan: Well controlled on current medications 4. Longstanding persistent atrial fibrillation (HCC) Assessment & Plan: Hold coumadin 4 days prior to TAVR. Take ASA 81 mg daily while coumadin is on hold. Follow up for -to be arranged after TAVR. Subjective HPI Ander Monteiro is a 73 yo with known to Dr Obrien with chronic HFpEF, Afib, iron deficiency anemia, COPD, HTN, HLD, pressure wound followed by podiatry and chronic pain followed by Pain Management. He has had progressive DUNLAP, fatigue and a hospital admission in 02/2024 for acute heart failure. Echo showed EF 50% with mean Ao gradient 45 mmHg. Heart cath showed moderate LAD stenosis with continued medical management. He is followed by podiatry for lower leg wounds which and has been cleared to proceed with TAVR. He recently had all his remaining teeth extracted and has been cleared by his dentist to proceed with TAVR. He presents today for an updated H&P accompanied by his son. He reports SOB and fatigue that has not worsened. He has continued dizziness which he attributes to some of his medications. Denies angina, orthopnea, PND or bleeding. Weight has been stable at home. Review of Systems Constitutional: Positive for fatigue. Negative for chills and fever. Respiratory: Positive for shortness of breath. Negative for cough. Cardiovascular: Positive for leg swelling. Negative for chest pain and palpitations. Gastrointestinal: Negative for abdominal pain, blood in stool and vomiting. Genitourinary: Negative for hematuria. Neurological: Negative for dizziness and syncope. Psychiatric/Behavioral : Negative for confusion. Allergies Allergen Reactions Pramoxine Rash Other Reaction(s): Burning sensation, Erythema, Burning sensation, Erythema Outpatient Medications Prior to Visit Medication Sig Dispense Refill acetaminophen (Tylenol) 500 MG tablet Take 500 mg by mouth every 8 hours as needed for mild pain (1-3). albuterol 108 (90 Base) MCG/ACT inhaler Inhale 2 puffs every 6 hours as needed for wheezing. Diclofenac Sodium (Arthritis Pain Reliever) 1 % gel Apply 2 g topically 2 times daily. ferrous sulfate (FeroSul) 325 (65 Fe) MG tablet Take 325 mg by mouth daily (with breakfast). furosemide (Lasix) 80 MG tablet Take 40 mg by mouth daily. oxyCODONE-acetaminophe n (Percocet) 10-325 MG tablet Take 2 tablets by mouth every 6 hours as needed for severe pain (7-10). potassium chloride CR (Klor-Con M20) 20 MEQ ER tablet Take 20 mEq by mouth 2 times daily. Do not crush or chew. sacubitril-valsartan (Entresto) 49-51 MG tablet Take 1 tablet by mouth 2 times daily. senna-docusate (Lyndsey-Colace) 8.6-50 MG tablet Take 2 tablets by mouth in the morning and 2 tablets in the evening. simvastatin (Zocor) 10 MG tablet Take 10 mg by mouth Nightly. terazosin (Hytrin) 2 MG capsule Take 2 mg by mouth daily. tiotropium-olodaterol (Stiolto Respimat) 2.5-2.5 MCG/ACT aerosol solution inhaler Inhale 2 Inhalations in the morning and 2 Inhalations in the evening. warfarin (Coumadin) 1 MG tablet Take by mouth. Take as directed per After Visit Summary. warfarin (Coumadin) 4 MG tablet Take by mouth. Take as directed per After Visit Summary. No facility-administered medications prior to visit. Past Medical History: Diagnosis Date (HFpEF) heart failure with preserved ejection fraction (HCC) 04/16/2024 A-fib (CMS/HCC) (HCC) 04/16/2024 Aortic valve stenosis 04/16/2024 BPH (benign prostatic hyperplasia) 04/16/2024 COPD (chronic obstructive pulmonary disease) (HCC) 04/16/2024 Essential hypertension 04/16/2024 Former smoker 04/16/2024 HLD (hyperlipidemia) 04/16/2024 Iron deficiency anemia 04/16/2024 (more content not included)... [place] [id number] 36 Approval [id number] 07/08-07/09/24 On all 3 calendars,requested on [employer] and approval scanned under Media. [address] 06-27-2024 36 Spoke with patient's son Yariel, does not need to stop warfarin for CT scan on 07/02. Instructed will need to stop warfarin for 4 days prior to TAVR last dose 07/03. Will review instructions with patient and son at JOSH Newberry APRN 07/02. Verbalized understanding. [address] 06-26-2024 36 Name of caller: Yariel Contact phone number: [phone] Relationship to Patient: son Provider: Tri Newberry Practice: [facility] Chief Complaint/Reason for Call: does patient need to stop warfarin prior to cat scan and the for valve replacement? Best time of day caller can be reached: AM Patient advised that office/PCP has 24-48 business hours to return their call: No [place] [id number] Printed ins card to start auth [address] 06-25-2024 36 Reviewed BMP complet ed for CTA on 07/02, stable results. Pended pre-TAVR labs and CXR, Dawit Newberry AIR ANTISUBMARINE OFFICER to sign. [address] 06-24-2024 36 Labs received and scanned under Media [place] [address] I called and had to l/m on the MA line. I left a detailed one w/ our fax #. [address] 06-21-2024 36 Office closed. I [place] l call first thing Monday am. [address] 06-20-2024 36 Spoke with patient's son Yariel, scheduled CTA and AIR ANTISUBMARINE OFFICER OV for 07/02 at 10 am and AIR ANTISUBMARINE OFFICER OV for TAVR teach. Reviewed fasting 4 hours prior and oral hydration protocol.. Patient is having BMP drawn at PCP office today. Kia Cobb to obtain results tomorrow 06/21. Agreed to below procedure date/time. Dx: Procedure: TAVR Date/Time: 07/08/24 at 12:45 pm Surgeon: Dr. Reyes/ Dr. Luong Location: [facility] Admission: A Anesthesia: BILL Cobb notified to start insurance auth and schedule procedure. [address] 06-13-2024 36 Orders placed for BM P, TAVR CTA, case request TAVR. mm [facility] 36 Routed to Dawit Bower APRN to review if proceed with CTA/ TAVR and to place orders if appropriate. [facility] 36 Podiatry clearance i s scanned under Media as well [address] 06-11-2024 36 [facility] received and scanned under Media [address] 06-10-[address] [facility] [facility] called with their fax # [phone] Faxed form to above # [facility] [phone]. Faxed form to that # as well. Both confirmed. [facility] 36on 06-07-2024 36 I called both office s and had to leave messages to get fax #. [facility] 36 Podiatry and dental clearance forms given to Kia Cobb to fax for completion. [facility] 36 Edgar called back and left a detailed message. Patient got all his teeth pulled yesterday. [facility] Dr Levin [phone]. Production [employer] Sprayer is Dr Shady Ogden [phone] [facility] 36 LVM x2 with son, Enrique chappell @ [phone] to obtain dentist/surveillance investigator names for clearances. [facility] Office Visiton 05-14-2024 Follow-up visit [id number] Marlon Monteiro 1950 [facility] Provider Department Center 05/14/2024 [id number] BRICEÑO [facility] [address] No family history on file Level of Service:13066 DE OFFICE/OUTPATIENT NEW HIGH MDM 60 MINUTES Reason for Visit and Comments: Cardiac Valve Problem [1334] New Patient [542] - Heart Valve Clinic [facility] Follow-up visit [id number] Marlon Monteiro 1950 [facility] Provider Department Center 05/14/2024 [id number] REYES [facility] [address] No family history on file Level of Service:03696 DE OFFICE/OUTPATIENT NEW HIGH MDM 60 MINUTES Reason for Visit and Comments: Cardiac Valve Problem [1334] New Patient [542] - Heart Valve Clinic [facility] Progress Noteon 05-14-2024 Progress Note [facility]: Cardiothoracic Surgery Multidisciplinary Heart Valve Clinic Date: 05/14/24 Patient:Ander Monteiro 1950 73 y.o. male [id number] Subjective: HPI: Ander Monteiro 73 [address] Sutton is being evaluated for aortic valve stenosis. Echocardiogram completed on 02/19/2024 showed critical aortic valve stenosis with peak/mean gradients 86/45 mm Hg. Medical History Past Medical History: Diagnosis Date (HFpEF) heart failure with preserved ejection fraction (HCC) 04/16/2024 A-fib ([facility]) ([facility]) 04/16/2024 Aortic valve stenosis 04/16/2024 BPH (benign prostatic hyperplasia) 04/16/2024 COPD (chronic obstructive pulmonary disease) ([facility]) 04/16/2024 Essential hypertension 04/16/2024 Former smoker 04/16/2024 HLD (hyperlipidemia) 04/16/2024 Iron deficiency anemia 04/16/2024 Venous insufficiency of leg 04/16/2024 Blood thinner - Warfarin Transthoracic Echocardiogram 02/19/2024 Review of Systems Constitutional: Negative for activity change, chills, diaphoresis, fatigue and fever. HENT: Negative for nosebleeds and trouble swallowing. Eyes: Negative for discharge and visual disturbance. Respiratory: Positive for shortness of breath (on exertion; worsening). Negative for apnea, cough, chest tightness and wheezing. Cardiovascular: Positive for leg swelling. Negative for chest pain and palpitations. Gastrointestinal: Negative for abdominal distention, abdominal pain, blood in stool, diarrhea, nausea and vomiting. Endocrine: Negative for cold intolerance and heat intolerance. Genitourinary: Negative for hematuria. Musculoskeletal: Positive for gait problem (uses walker at home; in wheelchair at visit). Negative for myalgias. Skin: Negative for color change and rash. Neurological: Negative for dizziness, seizures, syncope, facial asymmetry, speech difficulty, weakness, light-headedness, numbness and headaches. Hematological: Does not bruise/bleed easily. Psychiatric/Behavioral : Negative for dysphoric mood. Allergies: Pramoxine Past Medical History: has a past medical history of (HFpEF) heart failure with preserved ejection fraction (HCC) (04/16/2024), A-fib (CMS/[facility]) ([facility]) (04/16/2024), Aortic valve stenosis (04/16/2024), BPH (benign prostatic hyperplasia) (04/16/2024), COPD (chronic obstructive pulmonary disease) ([facility]) (04/16/2024), Essential hypertension (04/16/2024), Former smoker (04/16/2024), HLD (hyperlipidemia) (04/16/2024), Iron deficiency anemia (04/16/2024), and Venous insufficiency of leg (04/16/2024). Past Surgical History: has no past surgical history on file. Social History: reports that he has quit smoking. His smoking use included cigarettes. He does not have any smokeless tobacco history on file. Family History: family history is not on file. Medications: Prior to Admission medications Medication Sig Start Date End Date Taking? Authorizing Provider acetaminophen (Tylenol) 500 MG tablet Take 500 mg by mouth every 8 hours as needed for mild pain (1-3). Historical Provider, albuterol 108 (90 Base) MCG/ACT inhaler Inhale 2 puffs every 6 hours as needed for wheezing. Historical Provider, Diclofenac Sodium (Arthritis Pain Reliever) 1 % gel Apply 2 g topically 2 times daily. Historical Provider, ferrous sulfate (FeroSul) 325 (65 Fe) MG tablet Take 325 mg by mouth daily (with breakfast). Historical Provider, furosemide (Lasix) 40 MG tablet Take 40 mg by mouth daily. Historical Provider, furosemide (Lasix) 80 MG tablet Take 80 mg by mouth in the morning and 80 mg in the evening. Historical Provider, oxyCODONE (Roxicodone) 5 MG immediate release tablet Take 5 mg by mouth every 8 hours as needed for severe pain (7-10). Historical Provider, potassium chloride CR (Klor-Con M20) 20 MEQ ER tablet Take 20 mEq by mouth 2 times daily. Do not crush or chew. Historical Provider, sacubitril-valsartan (Entresto) 24-26 MG tablet Take 1 tablet by mouth 2 times daily. Historical Provider, senna-docusate (Lyndsey-Colace) 8.6-50 MG tablet Take 2 tablets by mouth in the morning and 2 tablets in the evening. Historical Provider, simvastatin (Zocor) 10 MG tablet Take 10 mg by mouth Nightly. Historical Provider, tiotropium-olodaterol (Stiolto Respimat) 2.5-2.5 MCG/ACT aerosol solution inhaler Inhale 2 Inhalations in the morning and 2 Inhalations in the evening. Historical Provider, warfarin (Coumadin) 1 MG tablet Take by mouth. Take as directed per After Visit Summary. Historical Provider, warfarin (Coumadin) 4 MG tablet Take by mouth. Take as directed per After Visit Summary. Historical Provider, Objective: BP 124/80 (BP Location: Left arm, Patient Position: Sitting, BP Cuff Size: Adult) Pulse 57 Ht 6' (1.829 m) Wt 264 lb 8.8 oz (120 kg) BMI 35.88 kg/m? Physical Exam Vitals: BP 124/80 (BP Location: Left arm, Patient Position: Sitting, BP Cuff Size: Adult) Pulse 57 Ht 6' (1 (more content not included)... Normal [facility] Progress Note [facility] [address] [facility] [address] Dept: [phone] Dept Visit type: New : 1950 Reason for Visit: Cardiac Valve Problem; New patient (Heart Valve Clinic) Assessment and Plan 1. Nonrheumatic aortic valve stenosis 2. Essential hypertension - ECG 12 lead - CLINIC PERFORMED This is a very pleasant 73 y.o. male with severe and symptomatic aortic stenosis. he is in need of aortic valve replacement. Will have heart cath performed, [place] prefers [place], I have spoken with Bart Obrien, will arrange. Will get a CTA for anatomic planning. If favorable anatomy for transfemoral TAVR, will likely proceed with TAVR. This decision was made after multidisciplinary discussion, using a shared decision making strategy. CT surgery also saw patient to aide in discussion. It was a pleasure seeing your patient in the office today. Please do not hesitate to call me with any questions. Follow up for Recheck after cath and CTA. Subjective HPI Ander Monteiro is a very pleasant 73 y.o. male who is here for evaluation of his aortic valve disease. his symptoms include progressive dyspnea on exertion and fatigue. his most recent echo shows severe aortic stenosis with normal EF, mean aortic valve gradient 45mmHg. Review of Systems Constitutional: Negative for activity change, chills, diaphoresis, fatigue and fever. HENT: Negative for nosebleeds and trouble swallowing. Eyes: Negative for discharge and visual disturbance. Respiratory: Positive for shortness of breath (on exertion; worsening). Negative for apnea, cough, chest tightness and wheezing. Cardiovascular: Positive for leg swelling. Negative for chest pain and palpitations. Gastrointestinal: Negative for abdominal distention, abdominal pain, blood in stool, diarrhea, nausea and vomiting. Endocrine: Negative for cold intolerance and heat intolerance. Genitourinary: Negative for hematuria. Musculoskeletal: Positive for gait problem (uses walker at home; in wheelchair at visit). Negative for myalgias. Skin: Negative for color change and rash. Neurological: Negative for dizziness, seizures, syncope, facial asymmetry, speech difficulty, weakness, light-headedness, numbness and headaches. Hematological: Does not bruise/bleed easily. Psychiatric/Behavioral : Negative for dysphoric mood. Allergies Allergen Reactions Pramoxine Rash Other Reaction(s): Burning sensation, Erythema, Burning sensation, Erythema Outpatient Medications Prior to Visit Medication Sig Dispense Refill albuterol 108 (90 Base) MCG/ACT inhaler Inhale 2 puffs every 6 hours as needed for wheezing. ferrous sulfate (FeroSul) 325 (65 Fe) MG tablet Take 325 mg by mouth daily (with breakfast). furosemide (Lasix) 80 MG tablet Take 80 mg by mouth in the morning and 80 mg in the evening. oxyCODONE-acetaminophe n (Percocet) 10-325 MG tablet Take 2 tablets by mouth every 6 hours as needed for severe pain (7-10). potassium chloride CR (Klor-Con M20) 20 MEQ ER tablet Take 20 mEq by mouth 2 times daily. Do not crush or chew. sacubitril-valsartan (Entresto) 24-26 MG tablet Take 1 tablet by mouth 2 times daily. senna-docusate (Lyndsey-Colace) 8.6-50 MG tablet Take 2 tablets by mouth in the morning and 2 tablets in the evening. simvastatin (Zocor) 10 MG tablet Take 10 mg by mouth Nightly. terazosin (Hytrin) 2 MG capsule Take 2 mg by mouth daily. tiotropium-olodaterol (Stiolto Respimat) 2.5-2.5 MCG/ACT aerosol solution inhaler Inhale 2 Inhalations in the morning and 2 Inhalations in the evening. warfarin (Coumadin) 1 MG tablet Take by mouth. Take as directed per After Visit Summary. warfarin (Coumadin) 4 MG tablet Take by mouth. Take as directed per After Visit Summary. acetaminophen (Tylenol) 500 MG tablet Take 500 mg by mouth every 8 hours as needed for mild pain (1-3). Diclofenac Sodium (Arthritis Pain Reliever) 1 % gel Apply 2 g topically 2 times daily. furosemide (Lasix) 40 MG tablet Take 40 mg by mouth daily. oxyCODONE (Roxicodone) 5 MG immediate release tablet Take 5 mg by mouth every 8 hours as needed for severe pain (7-10). No facility-administered medications prior to visit. Past Medical History: Diagnosis Date (HFpEF) heart failure with preserved ejection fraction (HCC) 04/16/2024 A-fib (CMS/HCC) (HCC) 04/16/2024 Aortic valve stenosis 04/16/2024 BPH (benign prostatic hyperplasia) 04/16/2024 COPD (chronic obstructive pulmonary disease) (HCC) 04/16/2024 Essential hypertension 04/16/2024 Former smoker 04/16/2024 HLD (hyperlipidemia) 04/16/2024 Iron deficiency anemia 04/16/2024 Venous insufficiency of leg 04/16/2024 Social History Tobacco Use Smoking status: Former Types: Cigarettes Smokeless tobacco: Not on file Substance Use Topics Alcohol use: Not on file History reviewed. No pertinent surgical history. No family history on file. Objective Vitals: 05/14/24 1505 BP (more content not included)... Normal [facility] Progress Noteon 05-10-2024 Progress Note Ander Monteiro 73 [address] Sutton is being evaluated for aortic valve stenosis. Echocardiogram completed on 02/19/2024 showed critical aortic valve stenosis with peak/mean gradients 86/45 mm Hg. Past Medical History: Diagnosis Date (HFpEF) heart failure with preserved ejection fraction (HCC) 04/16/2024 A-fib (CMS/HCC) (HCC) 04/16/2024 Aortic valve stenosis 04/16/2024 BPH (benign prostatic hyperplasia) 04/16/2024 COPD (chronic obstructive pulmonary disease) (HCC) 04/16/2024 Essential hypertension 04/16/2024 Former smoker 04/16/2024 HLD (hyperlipidemia) 04/16/2024 Iron deficiency anemia 04/16/2024 Venous insufficiency of leg 04/16/2024 Blood thinner - Warfarin Transthoracic Echocardiogram 02/19/2024 [facility] 36on 04-26-2024 36 Patient sched for 05/14/24. [facility] appt cancelled, chart made and PATIENT TRANSITION SPECIALIST packet mailed. [facility] 04-24-2024 36 Patient sched in on 05/14/24. Sending message to myself to make chart and mail PATIENT TRANSITION SPECIALIST packet. Normal [facility] 04-23-2024 36 Diagnosis I50.30 (ICD-10-CM) - Unspecified diastolic (congestive) heart failure (HCC) I35.0 (ICD-10-CM) - Nonrheumatic aortic (valve) stenosis Echo report received showing severe Aortic Stenosis, reviewed with Tri Newberry APN in TAVR- per Tri pt should be rescheduled with TAVR team and canceled from Dr Ross's schedule Records given to Tri Newberry APN [facility] 36 ----- Message from Macy Kothari sent at 04/23/2024 9:04 AM EDT ----- Echo being pushed to PACS & report faxed over ----- Message ----- From: Sharmaine Cloud RN Sent: 04/16/2024 8:11 AM EDT To: Viviane Obrien; Macy Kothari This pt was referred to [facility] for TAVR consideration (per records received) but no echo sent. Need to obtain from referring doctor as well as echo images. Pt scheduled with EMILIE- will review with TAVR team. Normal [facility] Stool gastrointestinal hemog lobin detection by immunologic methodOrdered By: Freedom Sutton on 03-20-2024 Lower GI hemoglobin IA Ql (Stl) [facility] Basophil percentageOrdered B y: Freedom Sutton on 03-18-2024 Chloride [Moles/Vol] 105 mmol/L 98-107 [facility] Glucose [Mass/Vol] 99 mg/dL 74-106 [facility] Potassium [Moles/Vol] 3.7 mmol/L 3.5-5.1 [facility] Sodium [Moles/Vol] 139 mmol/L 136-145 [facility] Laboratory - Chemistry and C hemistry - challengeOrdered By: Freedom Sutton on 03-18-2024 CO2 [Moles/Vol] 30.0 mmol/L 21.0-32.0 [facility] Urea nitrogen/Creatinine [Mass ratio] 22.7 mg/mg 10-20 [facility] No Panel InformationOrdered By: Freedom Sutton on 03-18-2024 Estimated GFR (MDRD) Amer 164 mL/min >60 [facility] Comment on above: GFR Calc Estimated GFR (MDRD) Non-Af Amer 136 mL/min >60 [facility] Comment on above: Non- GFR Calc Serum or plasma calcium sawyer urement (mass/volume)Ordered By: Freedom Sutton on 03-18-2024 Calcium [Mass/Vol] 8.9 mg/dL 8.5-10.1 [facility] Serum or plasma creatinine m easurement (mass/volume)Ordered By: Freedom Sutton on 03-18-2024 Creatinine [Mass/Vol] 0.62 mg/dL 0.70-1.30 [facility] Comment on above: The validity of the calculated GFR & GFRAA in patients over 70 years has not been determined. Clinical correlation is essential. Serum or plasma urea nitroge n measurement (mass/volume)Ordered By: Freedom Sutton on 03-18-2024 Urea nitrogen [Mass/Vol] 14 mg/dL 7-18 [facility] Thin prep Papanicolaou smear with manual screeningOrdered By: Freedom Sutton on 03-18-2024 Thin prep Papanicolaou smear with manual screening 4 5-15 [facility] Absolute lymphocyte countOrd ered By: Freedom Sutton on 03-13-2024 Lymphocytes Auto (Unsp spec) [#/Vol] 1.05 10*3/uL 0.83-4.51 [facility] Automated lymphocyte count a s percentage of total leukocytesOrdered By: Freedom Sutton on 03-13-2024 Lymphocytes/100 WBC Auto (Unsp spec) 18.0 % 19-41 [facility] Basophil percentageOrdered B y: Freedom Sutton on 03-13-2024 Basophils/100 WBC (Bld) 1.2 % 0-1 [facility] Bilirubin [Mass/Vol] 1.40 mg/dL 0.20-1.00 [facility] Comment on above: For patients on eltr ombopag therapy, use of Dimension [place] TBIL is not recommended. Chloride [Moles/Vol] 105 mmol/L 98-107 [facility] Cholesterol [Mass/Vol] 77 mg/dL <200 [facility] Comment on above: <200 mg/dL Desirable 200-240 mg/dL Borderline >240 mg/dL High Risk Eosinophils/100 WBC (Bld) 3.3 % 0-5 [facility] Glucose [Mass/Vol] 108 mg/dL 74-106 [facility] Comment on above: Fasting Glucose resu lt from 100 to 125 mg/dL suggests IMPAIRED HOMEOSTASIS per A.D.A. criteria. Hemoglobin (Bld) [Mass/Vol] 8.7 g/dL 13.0-16.5 [facility] Monocytes/100 WBC (Bld) 19.2 % 0-10 [facility] Neutrophils (Bld) [#/Vol] 3.4 10*3/uL 2.0-7.7 [facility] Neutrophils/100 WBC (Bld) 58.0 % 47-70 [facility] Potassium [Moles/Vol] 4.1 mmol/L 3.5-5.1 [facility] Protein [Mass/Vol] 7.2 g/dL 6.4-8.2 [facility] Sodium [Moles/Vol] 137 mmol/L 136-145 [facility] Triglyceride [Mass/Vol] 43 mg/dL <199 [facility] Comment on above: The drugs N-Acetylcy steine and Metamizole may falsely depress this assay.Serum Triglycerides Reference Interval Normal <150 mg/dL Borderline high 150 - 199 mg/dL High 200 - 499 mg/dL Very High > or = 500 mg/dL WBC (Bld) [#/Vol] 5.8 10*3/uL 4.4-11.0 [facility] Determination of erythrocyte mean corpuscular volume (MCV)Ordered By: Freedom Sutton on 03-13-2024 MCV (RBC) [Entitic vol] 91.1 fL 80-94 [facility] Erythrocyte distribution wid th ratioOrdered By: Freedom Sutton on 03-13-2024 Erythrocyte distribution width (RBC) [Ratio] 16.7 % 11.6-14.6 [facility] Erythrocyte distribution wid th standard deviationOrdered By: Freedom Sutton on 03-13-2024 Erythrocyte distribution width (RBC) [Entitic vol] 55.2 fL 35.1-43.9 [facility] Hematocrit Auto (Bld) [Volum e fraction]Ordered By: Freedom Sutton on 03-13-2024 Hematocrit (Bld) [Volume fraction] 27.5 % 40-54 [facility] Immature granulocytes/100 WB C Auto (Bld)Ordered By: Freedom Sutton on 03-13-2024 Immature granulocytes/100 WBC (Bld) 0.300 % 0.0-0.9 [facility] Comment on above: IG% - Immature Granu locytes (promyelocytes, myelocytes and metamyelocytes) > 1% indicates that a LEFT SHIFT is Present. Laboratory - Chemistry and C hemistry - challengeOrdered By: Freedom Sutton on 03-13-2024 Albumin/Globulin [Mass ratio] 0.6 {ratio} 0.9-2.4 [facility] ALP [Catalytic activity/Vol] 179 U/L 45-117 [facility] ALT [Catalytic activity/Vol] 23 U/L 16-61 [facility] Cholesterol in HDL [Mass/Vol] 55 mg/dL >40 [facility] Comment on above: The drugs N-Acetylcy steine and Metamizole may falsely depress this assay. Reference Range HDL <40 mg/dL Low HDL Cholesterol HDL >or= 60 mg/dL High HDL Cholesterol Cholesterol in LDL [Mass/Vol] 13 mg/dL 0-130 [facility] CO2 [Moles/Vol] 28.0 mmol/L 21.0-32.0 [facility] Globulin (S) [Mass/Vol] 4.4 g/dL 2.2-4.2 [facility] Urea nitrogen/Creatinine [Mass ratio] 25.5 mg/mg 10-20 [facility] Laboratory - CoagulationOrde red By: Freedom Sutton on 03-13-2024 INR Coag (Bld) [Relative time] 3.0 {INR} [facility] PT Coag (PPP) [Time] 31.2 s 11.7-14.9 [facility] Laboratory - Hematology and Cell countsOrdered By: Freedom Sutton on 03-13-2024 MCH (RBC) [Entitic mass] 28.8 pg 27.0-32.0 [facility] MCHC (RBC) [Mass/Vol] 31.6 g/dL 32-36 [facility] Nucleated RBC/100 WBC (Bld) [Ratio] 0 % 0-5 [facility] Platelet mean volume (Bld) [Entitic vol] 11.2 fL 6.2-12.0 [facility] Platelets (Bld) [#/Vol] 120 10*3/uL 150-450 [facility] No Panel InformationOrdered By: Freedom Sutton on 03-13-2024 Estimated GFR (MDRD) Amer 132 mL/min >60 [facility] Comment on above: GFR Calc Estimated GFR (MDRD) Non-Af Amer 109 mL/min >60 [facility] Comment on above: Non- GFR Calc Hepatitis C Antibody Non-Reactive Nonreactive [facility] Comment on above: Non Reactive: < 0.8 Equivocal: >/= 0.8 to < 1.0 Reactive: >/= 1.0The CDC requires that a reactive/equivocal HCV antibody result be sent out for confirmation. HCV Quant by PCR testing. Vitamin D 25-Hydroxy 71.5 ng/mL [facility] Comment on above: Vitamin D 25(OH) Sta tus Range Deficiency <20 ng/mL (50nmol/L) Insufficiency 20 - 30 ng/mL (50 - 75 nmol/L) Sufficiency 30 - 100 ng/mL (75 - 250 nmol/L) Toxicity >100 ng/mL (>250 nmol/L) VLDL Cholesterol 9 mg/dL 5-40 [facility] RBC Auto (Bld) [#/Vol]Ordere d By: Freedom Sutton on 03-13-2024 RBC (Bld) [#/Vol] 3.02 10*6/uL 4.6-6.2 [facility] Serum or plasma calcium sawyer urement (mass/volume)Ordered By: Freedom Sutton on 03-13-2024 Calcium [Mass/Vol] 9.1 mg/dL 8.5-10.1 [facility] Serum or plasma creatinine m easurement (mass/volume)Ordered By: Freedom Sutton on 03-13-2024 Creatinine [Mass/Vol] 0.74 mg/dL 0.70-1.30 [facility] Comment on above: The validity of the calculated GFR & GFRAA in patients over 70 years has not been determined. Clinical correlation is essential. Serum or plasma thyroid stim ulating hormone (TSH) measurement (units/volume)Ordered By: Freedom Sutton on 03-13-2024 TSH Qn 1.89 uIU/mL 0.358-3.74 [facility] Serum or plasma urea nitroge n measurement (mass/volume)Ordered By: Freedom Sutton on 03-13-2024 Urea nitrogen [Mass/Vol] 19 mg/dL 7-18 [facility] Thin prep Papanicolaou smear with manual screeningOrdered By: [facility] on 03-13-2024 Thin prep Papanicolaou smear with manual screening 2.8 g/dL 3.2-5.0 [facility] Thin prep Papanicolaou smear with manual screening 27 U/L 15-37 [facility] Thin prep Papanicolaou smear with manual screening 4 5-15 [facility] Basophil percentageOrdered B y: Freedom Sutton on 03-09-2024 Hemoglobin (Bld) [Mass/Vol] 9.3 g/dL 13.0-16.5 [facility] Hematocrit Auto (Bld) [Volum e fraction]Ordered By: Freedom Sutton on 03-09-2024 Hematocrit (Bld) [Volume fraction] 29.6 % 40-54 [facility] Absolute lymphocyte countOrd ered By: [facility] Lymphocytes Auto (Unsp spec) [#/Vol] 0.91 10*3/uL 0.83-4.51 [facility] Automated lymphocyte count a s percentage of total leukocytesOrdered By: Freedom Sutton on 03-08-2024 Lymphocytes/100 WBC Auto (Unsp spec) 22.0 % 19-41 [facility] Basophil percentageOrdered B y: Freedom Sutton on 03-08-2024 Basophils/100 WBC (Bld) 2.2 % 0-1 [facility] Chloride [Moles/Vol] 103 mmol/L 98-107 [facility] Eosinophils/100 WBC (Bld) 4.1 % 0-5 [facility] Glucose [Mass/Vol] 87 mg/dL 74-106 [facility] Monocytes/100 WBC (Bld) 10.1 % 0-10 [facility] Neutrophils (Bld) [#/Vol] 2.5 10*3/uL 2.0-7.7 [facility] Neutrophils/100 WBC (Bld) 61.4 % 47-70 [facility] Potassium [Moles/Vol] 4.3 mmol/L 3.5-5.1 [facility] Sodium [Moles/Vol] 135 mmol/L 136-145 [facility] WBC (Bld) [#/Vol] 4.1 10*3/uL 4.4-11.0 [facility] Blood manual differential co mment interpretation (narrative result)Ordered By: Freedom Sutton on 03-08-2024 Manual differential comment Hugh (Bld) [Interp] SCANNED [facility] Determination of erythrocyte mean corpuscular volume (MCV)Ordered By: Freedom Sutton on 03-08-2024 MCV (RBC) [Entitic vol] 89.9 fL 80-94 [facility] Erythrocyte distribution wid th ratioOrdered By: Freedom Sutton on 03-08-2024 Erythrocyte distribution width (RBC) [Ratio] 16.6 % 11.6-14.6 [facility] Erythrocyte distribution wid th standard deviationOrdered By: Freedom Sutton on 03-08-2024 Erythrocyte distribution width (RBC) [Entitic vol] 54.7 fL 35.1-43.9 [facility] Immature granulocytes/100 WB C Auto (Bld)Ordered By: Freedom Sutton on 03-08-2024 Immature granulocytes/100 WBC (Bld) 0.200 % 0.0-0.9 [facility] Comment on above: IG% - Immature Granu locytes (promyelocytes, myelocytes and metamyelocytes) > 1% indicates that a LEFT SHIFT is Present. Laboratory - Chemistry and C hemistry - challengeOrdered By: Freedom Sutton on 03-08-2024 CO2 [Moles/Vol] 29.0 mmol/L 21.0-32.0 [facility] Urea nitrogen/Creatinine [Mass ratio] 41.8 mg/mg 10-20 [facility] Laboratory - Hematology and Cell countsOrdered By: Freedom Sutton on 03-08-2024 MCH (RBC) [Entitic mass] 28.0 pg 27.0-32.0 [facility] MCHC (RBC) [Mass/Vol] 31.1 g/dL 32-36 [facility] Nucleated RBC/100 WBC (Bld) [Ratio] 0 % 0-5 [facility] Platelet mean volume (Bld) [Entitic vol] 11.0 fL 6.2-12.0 [facility] Platelets (Bld) [#/Vol] 117 10*3/uL 150-450 [facility] No Panel InformationOrdered By: Freedom Sutton on 03-08-2024 Estimated Creatinine Clearance Calc 106.74 ml/min [facility] Estimated GFR (MDRD) Amer 155 mL/min >60 [facility] Comment on above: GFR Calc Estimated GFR (MDRD) Non-Af Amer 128 mL/min >60 [facility] Comment on above: Non- GFR Calc RBC Auto (Bld) [#/Vol]Ordere d By: Freedom Sutton on 03-08-2024 RBC (Bld) [#/Vol] 3.36 10*6/uL 4.6-6.2 [facility] Serum or plasma calcium sawyer urement (mass/volume)Ordered By: Freedom Sutton on 03-08-2024 Calcium [Mass/Vol] 8.7 mg/dL 8.5-10.1 [facility] Serum or plasma creatinine m easurement (mass/volume)Ordered By: Freedom Sutton on 03-08-2024 Creatinine [Mass/Vol] 0.65 mg/dL 0.70-1.30 [facility] Comment on above: The validity of the calculated GFR & GFRAA in patients over 70 years has not been determined. Clinical correlation is essential. Serum or plasma urea nitroge n measurement (mass/volume)Ordered By: Freedom Sutton on 03-08-2024 Urea nitrogen [Mass/Vol] 27 mg/dL 7-18 [facility] Thin prep Papanicolaou smear with manual screeningOrdered By: Freedom Sutton on 03-08-2024 Thin prep Papanicolaou smear with manual screening 3 5-15 [facility] Laboratory - CoagulationOrde red By: Freedom Sutton on 03-07-2024 INR Coag (Bld) [Relative time] 3.2 {INR} [facility] PT Coag (PPP) [Time] 32.8 s 11.7-14.9 [facility] Basophil percentageOrdered B y: Angela Welch on 02-23-2024 Chloride [Moles/Vol] 108 mmol/L 98-107 [facility] Glucose [Mass/Vol] 90 mg/dL 74-106 [facility] Hemoglobin (Bld) [Mass/Vol] 10.8 g/dL 13.0-16.5 [facility] Potassium [Moles/Vol] 4.0 mmol/L 3.5-5.1 [facility] Sodium [Moles/Vol] 137 mmol/L 136-145 [facility] WBC (Bld) [#/Vol] 7.7 10*3/uL 4.4-11.0 [facility] Determination of erythrocyte mean corpuscular volume (MCV)Ordered By: Angela Welch on 02-23-2024 MCV (RBC) [Entitic vol] 92.2 fL 80-94 [facility] Erythrocyte distribution wid th ratioOrdered By: Angela Welch on 02-23-2024 Erythrocyte distribution width (RBC) [Ratio] 16.2 % 11.6-14.6 [facility] Erythrocyte distribution wid th standard deviationOrdered By: Angela Welch on 02-23-2024 Erythrocyte distribution width (RBC) [Entitic vol] 55.3 fL 35.1-43.9 [facility] Hematocrit Auto (Bld) [Volum e fraction]Ordered By: Angela Welch on 02-23-2024 Hematocrit (Bld) [Volume fraction] 34.5 % 40-54 [facility] Laboratory - Chemistry and C hemistry - challengeOrdered By: Angela Welch on 02-23-2024 CO2 [Moles/Vol] 24.0 mmol/L 21.0-32.0 [facility] Urea nitrogen/Creatinine [Mass ratio] 20.8 mg/mg 10-20 [facility] Laboratory - CoagulationOrde red By: Angela Welch on 02-23-2024 INR Coag (Bld) [Relative time] 2.8 {INR} [facility] PT Coag (PPP) [Time] 28.9 s 11.7-14.9 [facility] Laboratory - Hematology and Cell countsOrdered By: Angela Welch on 02-23-2024 MCH (RBC) [Entitic mass] 28.9 pg 27.0-32.0 [facility] MCHC (RBC) [Mass/Vol] 31.3 g/dL 32-36 [facility] Platelet mean volume (Bld) [Entitic vol] 10.9 fL 6.2-12.0 [facility] Platelets (Bld) [#/Vol] 249 10*3/uL 150-450 [facility] No Panel InformationOrdered By: Angela Welch on 02-23-2024 Estimated Creatinine Clearance Calc 102.74 ml/min [facility] Estimated GFR (MDRD) Amer 218 mL/min >60 [facility] Comment on above: GFR Calc Estimated GFR (MDRD) Non-Af Amer 180 mL/min >60 [facility] Comment on above: Non- GFR Calc RBC Auto (Bld) [#/Vol]Ordere d By: Angela Welch on 02-23-2024 RBC (Bld) [#/Vol] 3.74 10*6/uL 4.6-6.2 [facility] Serum or plasma calcium sawyer urement (mass/volume)Ordered By: Angela Welch on 02-23-2024 Calcium [Mass/Vol] 8.7 mg/dL 8.5-10.1 [facility] Serum or plasma creatinine m easurement (mass/volume)Ordered By: Angela Welch on 02-23-2024 Creatinine [Mass/Vol] 0.48 mg/dL 0.70-1.30 [facility] Comment on above: The validity of the calculated GFR & GFRAA in patients over 70 years has not been determined. Clinical correlation is essential. Serum or plasma trough vanco mycin levelOrdered By: Edvin Currie on 02-23-2024 Vancomycin trough [Mass/Vol] 21.0 ug/mL 5.0-15.0 [facility] Comment on above: VANCOMYCIN STANDARED DRUG THERAPY TROUGH LEVEL: 5.0 - 15.0 mg/L VANCOMYCIN HIGH INTENSITY THERAPY TROUGH LEVEL: 15.0 - 20.0 mg/L High Intensity therapy recommended for serious lifethreatening infections include:- Xtbzwcmzio-Rsvjrnytlzre-Uselpbyrc (Ventilator/Healtcare Associated)-Sepsis PLEASE CONTACT PHARMACY SERVICES (#[id number]) FOR INTERPRETATIONOF RESULTS. Serum or plasma urea nitroge n measurement (mass/volume)Ordered By: Angela Welch on 02-23-2024 Urea nitrogen [Mass/Vol] 10 mg/dL 7-18 [facility] Thin prep Papanicolaou smear with manual screeningOrdered By: Angela Welch on 02-23-2024 Thin prep Papanicolaou smear with manual screening 5 5-15 [facility] Absolute lymphocyte countOrd ered By: Angela Welch on 02-21-2024 Lymphocytes Auto (Unsp spec) [#/Vol] 0.88 10*3/uL 0.83-4.51 [facility] Automated lymphocyte count a s percentage of total leukocytesOrdered By: Angela Welch on 02-21-2024 Lymphocytes/100 WBC Auto (Unsp spec) 15.8 % 19-41 [facility] Basophil percentageOrdered B y: Angela Welch on 02-21-2024 Basophil percentage 2.7 mg/dL 2.5-4.9 [facility] Basophils/100 WBC (Bld) 1.6 % 0-1 [facility] Eosinophils/100 WBC (Bld) 4.8 % 0-5 [facility] Monocytes/100 WBC (Bld) 14.0 % 0-10 [facility] Neutrophils (Bld) [#/Vol] 3.5 10*3/uL 2.0-7.7 [facility] Neutrophils/100 WBC (Bld) 63.3 % 47-70 [facility] Immature granulocytes/100 WB C Auto (Bld)Ordered By: Angela Welch on 02-21-2024 Immature granulocytes/100 WBC (Bld) 0.500 % 0.0-0.9 [facility] Comment on above: IG% - Immature Granu locytes (promyelocytes, myelocytes and metamyelocytes) > 1% indicates that a LEFT SHIFT is Present. Laboratory - Hematology and Cell countsOrdered By: Angela Welch on 02-21-2024 Nucleated RBC/100 WBC (Bld) [Ratio] 0 % 0-5 [facility] Laboratory - Microbiology an d Antimicrobial susceptibilityOrdered By: Edvin Currie on 02-21-2024 Bacteria identified Cx Nom (Bld) No growth in 5 days. [facility] Basophil percentageOrdered B y: Angela Welch on 02-20-2024 Bilirubin [Mass/Vol] 1.50 mg/dL 0.20-1.00 [facility] Comment on above: For patients on eltr ombopag therapy, use of Dimension Haswell TBIL is not recommended. Protein [Mass/Vol] 7.2 g/dL 6.4-8.2 [facility] Laboratory - Chemistry and C hemistry - challengeOrdered By: Angela Welch on 02-20-2024 Albumin/Globulin [Mass ratio] 0.5 {ratio} 0.9-2.4 [facility] ALP [Catalytic activity/Vol] 107 U/L 45-117 [facility] ALT [Catalytic activity/Vol] 17 U/L 16-61 [facility] Globulin (S) [Mass/Vol] 4.7 g/dL 2.2-4.2 [facility] Magnesium [Mass/Vol] 1.9 mg/dL 1.6-2.6 [facility] Thin prep Papanicolaou smear with manual screeningOrdered By: Angela Welch on 02-20-2024 Thin prep Papanicolaou smear with manual screening 2.5 g/dL 3.2-5.0 [facility] Thin prep Papanicolaou smear with manual screening 32 U/L 15-37 [facility] Absolute lymphocyte countOrd ered By: Noman Cloud on 02-17-2024 Lymphocytes Auto (Unsp spec) [#/Vol] 0.63 10*3/uL 0.83-4.51 [facility] Automated lymphocyte count a s percentage of total leukocytesOrdered By: Noman Cloud on 02-17-2024 Lymphocytes/100 WBC Auto (Unsp spec) 6.9 % 19-41 [facility] Basophil percentageOrdered B y: Bharat Wilkins on 02-17-2024 Basophil percentage 50-100 SEEN /hpf 0-5 [facility] Basophil percentageOrdered B y: Noman Cloud on 02-17-2024 Basophils/100 WBC (Bld) 1.1 % 0-1 [facility] Eosinophils/100 WBC (Bld) 1.3 % 0-5 [facility] Hemoglobin (Bld) [Mass/Vol] 11.6 g/dL 13.0-16.5 [facility] Monocytes/100 WBC (Bld) 9.2 % 0-10 [facility] Neutrophils (Bld) [#/Vol] 7.4 10*3/uL 2.0-7.7 [facility] Neutrophils/100 WBC (Bld) 81.0 % 47-70 [facility] WBC (Bld) [#/Vol] 9.2 10*3/uL 4.4-11.0 [facility] Chloride [Moles/Vol] 98 mmol/L 98-107 [facility] Glucose [Mass/Vol] 132 mg/dL 74-106 [facility] Comment on above: Fasting Glucose resu lt greater than or equal to 126 mg/dL suggests DIABETES MELLITUS per A.D.A. criteria. Potassium [Moles/Vol] 4.7 mmol/L 3.5-5.1 [facility] Comment on above: Moderate Hemolysis, Result may be falsely increased. Sodium [Moles/Vol] 134 mmol/L 136-145 [facility] Basophil percentageOrdered B y: Karen White on 02-17-2024 Basophil percentage 2.3 mg/dL 2.5-4.9 [facility] Bilirubin Test strip Ql (U)O rdered By: Bharat Wilkins on 02-17-2024 Bilirubin Ql (U) 1 mg/dL Negative [facility] Comment on above: COLOR OF URINE MAY A FFECT DIPSTICK RESULTS. Culture, urineOrdered By: Jovon Wilkins on 02-17-2024 Bacteria identified Cx Nom (U) Proteus sp. [facility] Determination of erythrocyte mean corpuscular volume (MCV)Ordered By: Noman Cloud on 02-17-2024 MCV (RBC) [Entitic vol] 89.5 fL 80-94 [facility] Erythrocyte distribution wid th ratioOrdered By: Noman Cloud on 02-17-2024 Erythrocyte distribution width (RBC) [Ratio] 16.3 % 11.6-14.6 [facility] Erythrocyte distribution wid th standard deviationOrdered By: Noman Cloud on 02-17-2024 Erythrocyte distribution width (RBC) [Entitic vol] 53.1 fL 35.1-43.9 [facility] Hematocrit Auto (Bld) [Volum e fraction]Ordered By: Noman Cloud on 02-17-2024 Hematocrit (Bld) [Volume fraction] 36.8 % 40-54 [facility] Immature granulocytes/100 WB C Auto (Bld)Ordered By: Noman Cloud on 02-17-2024 Immature granulocytes/100 WBC (Bld) 0.500 % 0.0-0.9 [facility] Comment on above: IG% - Immature Granu locytes (promyelocytes, myelocytes and metamyelocytes) > 1% indicates that a LEFT SHIFT is Present. Ketones Test strip Ql (U)Ord ered By: Bharat Wilkins on 02-17-2024 Ketones Ql (U) 5 mg/dl Negative [facility] Laboratory - Chemistry and C hemistry - challengeOrdered By: Noman Cloud on 02-17-2024 CO2 [Moles/Vol] 30.0 mmol/L 21.0-32.0 [facility] Urea nitrogen/Creatinine [Mass ratio] 22.9 mg/mg 10-20 [facility] Laboratory - Chemistry and C hemistry - challengeOrdered By: Karen Sinha on 02-17-2024 Magnesium [Mass/Vol] 2.2 mg/dL 1.6-2.6 [facility] Comment on above: Moderate Hemolysis, Result may be falsely increased. Laboratory - CoagulationOrde red By: Noman Cloud on 02-17-2024 INR Coag (Bld) [Relative time] 1.8 {INR} [facility] PT Coag (PPP) [Time] 20.5 s 11.7-14.9 [facility] Laboratory - Hematology and Cell countsOrdered By: Noman Cloud on 02-17-2024 MCH (RBC) [Entitic mass] 28.2 pg 27.0-32.0 [facility] MCHC (RBC) [Mass/Vol] 31.5 g/dL 32-36 [facility] Nucleated RBC/100 WBC (Bld) [Ratio] 0 % 0-5 [facility] Platelet mean volume (Bld) [Entitic vol] 10.8 fL 6.2-12.0 [facility] Platelets (Bld) [#/Vol] 173 10*3/uL 150-450 [facility] Mucus LM Ql (Urine sed)Order ed By: Bharat Wilkins on 02-17-2024 Mucus Ql (Urine sed) 0 SEEN /hpf [facility] Nitrite Test strip Ql (U)Ord ered By: Bharat Wilkins on 02-17-2024 Nitrite Ql (U) Negative Negative [facility] No Panel InformationOrdered By: Bharat Wilkins on 02-17-2024 Urine RBC 10-25 SEEN /hpf 0-5 [facility] No Panel InformationOrdered By: Karen Sinha on 02-17-2024 Troponin I High Sensitivity 105 pg/mL 3.0-78.0 [facility] Comment on above: Please Note: New Luz t Units and Gender Specific Reference Ranges. For more information see Policy Stat Procedure [place]well High Sensitivity Troponin (TNIH) and attachments. No Panel InformationOrdered By: Noman Cloud on 02-17-2024 Estimated Creatinine Clearance Calc 71.14 ml/min [facility] Estimated GFR (MDRD) Amer 78 mL/min >60 [facility] Comment on above: GFR Calc Estimated GFR (MDRD) Non-Af Amer 64 mL/min >60 [facility] Comment on above: Non- GFR Calc Troponin I High Sensitivity 40 pg/mL 3.0-78.0 [facility] Comment on above: Please Note: New Luz t Units and Gender Specific Reference Ranges. For more information see Policy Stat Procedure [place]well High Sensitivity Troponin (TNIH) and attachments. Protein Test strip Ql (U)Ord ered By: Bharat Wilkins on 02-17-2024 Protein Ql (U) 30 mg/dl Negative [facility] RBC Auto (Bld) [#/Vol]Ordere d By: Noman Cloud on 02-17-2024 RBC (Bld) [#/Vol] 4.11 10*6/uL 4.6-6.2 [facility] Respiratory pathogens detect ion panel by molecular detection methodOrdered By: Bharat Wilkins on 02-17-2024 Respiratory pathogens DNA and RNA panel BUCK+probe (Resp) [facility] Serum or plasma calcium sawyer urement (mass/volume)Ordered By: Noman Cloud on 02-17-2024 Calcium [Mass/Vol] 9.1 mg/dL 8.5-10.1 [facility] Serum or plasma creatinine m easurement (mass/volume)Ordered By: Noman Cloud on 02-17-2024 Creatinine [Mass/Vol] 1.18 mg/dL 0.70-1.30 [facility] Comment on above: The validity of the calculated GFR & GFRAA in patients over 70 years has not been determined. Clinical correlation is essential. Serum or plasma urea nitroge n measurement (mass/volume)Ordered By: Noman Cloud on 02-17-2024 Urea nitrogen [Mass/Vol] 27 mg/dL 7-18 [facility] Squamous epithelial cells de tection in urine sediment by light microscopyOrdered By: Bharat Wilkins on 02-17-2024 Epithelial cells.squamous LM Ql (Urine sed) 0-5 SEEN /hpf 0-5 [facility] Thin prep Papanicolaou smear with manual screeningOrdered By: Noman Cloud on 02-17-2024 Thin prep Papanicolaou smear with manual screening 6 5-15 [facility] Urine blood detectionOrdered By: Bharat Wilkins on 02-17-2024 RBC Ql (U) 250 /ul Negative [facility] Urine clarityOrdered By: Yael Wilkins on 02-17-2024 Clarity (U) Sl. Cloudy Clear [facility] Urine color determinationOrd ered By: Bharat Wilkins on 02-17-2024 Color (U) Yellow Yellow [facility] Urine glucose detectionOrder ed By: Bharat Wilkins on 02-17-2024 Glucose Ql (U) Normal mg/dl Normal [facility] Urine leukocyte esterase det ection by dipstickOrdered By: Bharat Wilkins on 02-17-2024 Leukocyte esterase Test strip Ql (U) 500 /ul Negative [facility] Urine pHOrdered By: Jaziel Wilkins on 02-17-2024 pH (U) 7.0 [pH] 5.0 - 8.0 [facility] Urine sediment bacteria coun t by microscopy (number/high power field)Ordered By: Bharat Wilkins on 02-17-2024 Bacteria LM.HPF (Urine sed) [#/Area] 0 /[HPF] None Seen [facility] Urine specific gravity measu rementOrdered By: Bharat Wilkins on 02-17-2024 Specific gravity (U) [Rel density] 1.010 1.002-1.030 [facility] Urine urobilinogen measureme ntOrdered By: Bharat Wilkins on 02-17-2024 Urobilinogen Ql (U) 4 mg/dl Normal [facility] Basophil percentageOrdered B y: Bharat Wilkins on 02-16-2024 Chloride [Moles/Vol] 100 mmol/L 98-107 [facility] Glucose [Mass/Vol] 103 mg/dL 74-106 [facility] Comment on above: Fasting Glucose resu lt from 100 to 125 mg/dL suggests IMPAIRED HOMEOSTASIS per A.D.A. criteria. Potassium [Moles/Vol] 3.8 mmol/L 3.5-5.1 [facility] Sodium [Moles/Vol] 135 mmol/L 136-145 [facility] Laboratory - Chemistry and C hemistry - challengeOrdered By: Bharat Wilkins on 02-16-2024 CO2 [Moles/Vol] 31.0 mmol/L 21.0-32.0 [facility] Urea nitrogen/Creatinine [Mass ratio] 25.5 mg/mg 10-20 [facility] No Panel InformationOrdered By: Bharat Wilkins on 02-16-2024 Estimated Creatinine Clearance Calc 94.33 ml/min [facility] Estimated GFR (MDRD) Amer 111 mL/min >60 [facility] Comment on above: GFR Calc Estimated GFR (MDRD) Non-Af Amer 92 mL/min >60 [facility] Comment on above: Non- GFR Calc Serum or plasma calcium sawyer urement (mass/volume)Ordered By: Bharat Wilkins on 02-16-2024 Calcium [Mass/Vol] 8.8 mg/dL 8.5-10.1 [facility] Serum or plasma creatinine m easurement (mass/volume)Ordered By: Bahrat Wilkins on 02-16-2024 Creatinine [Mass/Vol] 0.86 mg/dL 0.70-1.30 [facility] Comment on above: The validity of the calculated GFR & GFRAA in patients over 70 years has not been determined. Clinical correlation is essential. Serum or plasma urea nitroge n measurement (mass/volume)Ordered By: Bharat Wilkins on 02-16-2024 Urea nitrogen [Mass/Vol] 22 mg/dL 7-18 [facility] Thin prep Papanicolaou smear with manual screeningOrdered By: Bharat Wilkins on 02-16-2024 Thin prep Papanicolaou smear with manual screening 4 5-15 [facility] Laboratory - CoagulationOrde red By: Bharat Wilkins on 02-15-2024 INR Coag (Bld) [Relative time] 1.9 {INR} [facility] PT Coag (PPP) [Time] 22.0 s 11.7-14.9 [facility] Basophil percentageOrdered B y: Bharat Wilkins on 02-13-2024 Hemoglobin (Bld) [Mass/Vol] 11.8 g/dL 13.0-16.5 [facility] WBC (Bld) [#/Vol] 5.2 10*3/uL 4.4-11.0 [facility] Determination of erythrocyte mean corpuscular volume (MCV)Ordered By: Bharat Wilkins on 02-13-2024 MCV (RBC) [Entitic vol] 88.5 fL 80-94 [facility] Erythrocyte distribution wid th ratioOrdered By: Bharat Wilkins on 02-13-2024 Erythrocyte distribution width (RBC) [Ratio] 16.8 % 11.6-14.6 [facility] Erythrocyte distribution wid th standard deviationOrdered By: Bharat Wilkins on 02-13-2024 Erythrocyte distribution width (RBC) [Entitic vol] 54.2 fL 35.1-43.9 [facility] Hematocrit Auto (Bld) [Volum e fraction]Ordered By: Bharat Wilkins on 02-13-2024 Hematocrit (Bld) [Volume fraction] 36.8 % 40-54 [facility] Laboratory - Hematology and Cell countsOrdered By: Bharat Wilkins on 02-13-2024 MCH (RBC) [Entitic mass] 28.4 pg 27.0-32.0 [facility] MCHC (RBC) [Mass/Vol] 32.1 g/dL 32-36 [facility] Platelet mean volume (Bld) [Entitic vol] 11.2 fL 6.2-12.0 [facility] Platelets (Bld) [#/Vol] 182 10*3/uL 150-450 [facility] RBC Auto (Bld) [#/Vol]Ordere d By: Bharat Wilkins on 02-13-2024 RBC (Bld) [#/Vol] 4.16 10*6/uL 4.6-6.2 [facility] Basophil percentageOrdered B y: Bing Hernandez on 02-11-2024 Basophil percentage 3.2 mg/dL 2.5-4.9 [facility] Laboratory - Chemistry and C hemistry - challengeOrdered By: Bing Hernandez on 02-11-2024 Magnesium [Mass/Vol] 2.0 mg/dL 1.6-2.6 [facility] Absolute lymphocyte countOrd ered By: Aj Randolph on 02-08-2024 Lymphocytes Auto (Unsp spec) [#/Vol] 0.80 10*3/uL 0.83-4.51 [facility] Automated lymphocyte count a s percentage of total leukocytesOrdered By: Aj Randolph on 02-08-2024 Lymphocytes/100 WBC Auto (Unsp spec) 14.9 % 19-41 [facility] Basophil percentageOrdered B y: Aj Randolph on 02-08-2024 Basophils/100 WBC (Bld) 1.7 % 0-1 [facility] Eosinophils/100 WBC (Bld) 5.0 % 0-5 [facility] Monocytes/100 WBC (Bld) 12.8 % 0-10 [facility] Neutrophils (Bld) [#/Vol] 3.5 10*3/uL 2.0-7.7 [facility] Neutrophils/100 WBC (Bld) 65.4 % 47-70 [facility] Cholesterol [Mass/Vol] 76 mg/dL <200 [facility] Comment on above: <200 mg/dL Desirable 200-240 mg/dL Borderline >240 mg/dL High Risk Triglyceride [Mass/Vol] 56 mg/dL <199 [facility] Comment on above: The drugs N-Acetylcy steine and Metamizole may falsely depress this assay.Serum Triglycerides Reference Interval Normal <150 mg/dL Borderline high 150 - 199 mg/dL High 200 - 499 mg/dL Very High > or = 500 mg/dL Immature granulocytes/100 WB C Auto (Bld)Ordered By: Aj Randolph on 02-08-2024 Immature granulocytes/100 WBC (Bld) 0.200 % 0.0-0.9 [facility] Comment on above: IG% - Immature Granu locytes (promyelocytes, myelocytes and metamyelocytes) > 1% indicates that a LEFT SHIFT is Present. Laboratory - Chemistry and C hemistry - challengeOrdered By: Aj Randolph on 02-08-2024 Cholesterol in HDL [Mass/Vol] 46 mg/dL >40 [facility] Comment on above: The drugs N-Acetylcy steine and Metamizole may falsely depress this assay. Reference Range HDL <40 mg/dL Low HDL Cholesterol HDL >or= 60 mg/dL High HDL Cholesterol Cholesterol in LDL [Mass/Vol] 19 mg/dL 0-130 [facility] Laboratory - Hematology and Cell countsOrdered By: Aj Randolph on 02-08-2024 Nucleated RBC/100 WBC (Bld) [Ratio] 0 % 0-5 [facility] No Panel InformationOrdered By: Aj Randolph on 02-08-2024 Vitamin D 25-Hydroxy 75.8 ng/mL [facility] Comment on above: Vitamin D 25(OH) Sta tus Range Deficiency <20 ng/mL (50nmol/L) Insufficiency 20 - 30 ng/mL (50 - 75 nmol/L) Sufficiency 30 - 100 ng/mL (75 - 250 nmol/L) Toxicity >100 ng/mL (>250 nmol/L) VLDL Cholesterol 11 mg/dL 5-40 [facility] Absolute lymphocyte countOrd ered By: Noman Cloud on 02-07-2024 Lymphocytes Auto (Unsp spec) [#/Vol] 1.04 10*3/uL 0.83-4.51 [facility] Automated lymphocyte count a s percentage of total leukocytesOrdered By: Noman Cloud on 02-07-2024 Lymphocytes/100 WBC Auto (Unsp spec) 18.5 % 19-41 [facility] Basophil percentageOrdered B y: Noman Cloud on 02-07-2024 Basophil percentage 0 SEEN /hpf 0-5 [facility] Basophils/100 WBC (Bld) 1.8 % 0-1 [facility] Chloride [Moles/Vol] 105 mmol/L 98-107 [facility] Eosinophils/100 WBC (Bld) 3.4 % 0-5 [facility] Glucose [Mass/Vol] 98 mg/dL 74-106 [facility] Hemoglobin (Bld) [Mass/Vol] 11.4 g/dL 13.0-16.5 [facility] Monocytes/100 WBC (Bld) 11.7 % 0-10 [facility] Neutrophils (Bld) [#/Vol] 3.6 10*3/uL 2.0-7.7 [facility] Neutrophils/100 WBC (Bld) 64.4 % 47-70 [facility] Potassium [Moles/Vol] 4.3 mmol/L 3.5-5.1 [facility] Comment on above: Moderate Hemolysis, Result may be falsely increased. Sodium [Moles/Vol] 138 mmol/L 136-145 [facility] WBC (Bld) [#/Vol] 5.6 10*3/uL 4.4-11.0 [facility] Bilirubin Test strip Ql (U)O rdered By: Noman Cloud on 02-07-2024 Bilirubin Ql (U) 3 mg/dL Negative [facility] Comment on above: COLOR OF URINE MAY A FFECT DIPSTICK RESULTS. Calcium oxalate crystals det ection in urine sediment by light microscopyOrdered By: Noman Cloud on 02-07-2024 Calcium oxalate crystals LM Ql (Urine sed) 2+ /hpf [facility] Determination of erythrocyte mean corpuscular volume (MCV)Ordered By: Noman Cloud on 02-07-2024 MCV (RBC) [Entitic vol] 90.4 fL 80-94 [facility] Erythrocyte distribution wid th ratioOrdered By: Noman Cloud on 02-07-2024 Erythrocyte distribution width (RBC) [Ratio] 16.9 % 11.6-14.6 [facility] Erythrocyte distribution wid th standard deviationOrdered By: Noman Cloud on 02-07-2024 Erythrocyte distribution width (RBC) [Entitic vol] 55.8 fL 35.1-43.9 [facility] Hematocrit Auto (Bld) [Volum e fraction]Ordered By: Noman Cloud on 02-07-2024 Hematocrit (Bld) [Volume fraction] 36.9 % 40-54 [facility] Hyaline casts LM.LPF (Urine sed) [#/Area]Ordered By: Noman Cloud on 02-07-2024 Hyaline casts (Urine sed) [#/Area] 0 /[LPF] 0-5 [facility] Immature granulocytes/100 WB C Auto (Bld)Ordered By: Noman Cloud on 02-07-2024 Immature granulocytes/100 WBC (Bld) 0.200 % 0.0-0.9 [facility] Comment on above: IG% - Immature Granu locytes (promyelocytes, myelocytes and metamyelocytes) > 1% indicates that a LEFT SHIFT is Present. Ketones Test strip Ql (U)Ord ered By: Noman Cloud on 02-07-2024 Ketones Ql (U) 5 mg/dl Negative [facility] Laboratory - Chemistry and C hemistry - challengeOrdered By: Noman Cloud on 02-07-2024 CO2 [Moles/Vol] 29.0 mmol/L 21.0-32.0 [facility] Natriuretic peptide B (Bld) [Mass/Vol] 974.9 pg/mL 0-100 [facility] Urea nitrogen/Creatinine [Mass ratio] 17.6 mg/mg 10-20 [facility] Laboratory - CoagulationOrde red By: Noman Cloud on 02-07-2024 INR Coag (Bld) [Relative time] 2.6 {INR} [facility] PT Coag (PPP) [Time] 27.8 s 11.7-14.9 [facility] Laboratory - Hematology and Cell countsOrdered By: Noman Cloud on 02-07-2024 MCH (RBC) [Entitic mass] 27.9 pg 27.0-32.0 [facility] MCHC (RBC) [Mass/Vol] 30.9 g/dL 32-36 [facility] Nucleated RBC/100 WBC (Bld) [Ratio] 0 % 0-5 [facility] Platelet mean volume (Bld) [Entitic vol] 10.9 fL 6.2-12.0 [facility] Platelets (Bld) [#/Vol] 175 10*3/uL 150-450 [facility] Lower GI hemoglobin IA Ql (S tl)Ordered By: Noman Cloud on 02-07-2024 Stool Occult Blood (JONATHAN) Positive [facility] Mucus LM Ql (Urine sed)Order ed By: Noman Cloud on 02-07-2024 Mucus Ql (Urine sed) 0 SEEN /hpf [facility] Nitrite Test strip Ql (U)Ord ered By: Noman Cloud on 02-07-2024 Nitrite Ql (U) Negative Negative [facility] No Panel InformationOrdered By: Noman Cloud on 02-07-2024 Urine RBC 0 SEEN /hpf 0-5 [facility] Estimated Creatinine Clearance Calc 112.59 ml/min [facility] Estimated GFR (MDRD) Amer 113 mL/min >60 [facility] Comment on above: GFR Calc Estimated GFR (MDRD) Non-Af Amer 93 mL/min >60 [facility] Comment on above: Non- GFR Calc Protein Test strip Ql (U)Ord ered By: Noman Cloud on 02-07-2024 Protein Ql (U) 15 mg/dl Negative [facility] RBC Auto (Bld) [#/Vol]Ordere d By: Noman Cloud on 02-07-2024 RBC (Bld) [#/Vol] 4.08 10*6/uL 4.6-6.2 [facility] Serum or plasma calcium sawyer urement (mass/volume)Ordered By: Noman Cloud on 02-07-2024 Calcium [Mass/Vol] 8.9 mg/dL 8.5-10.1 [facility] Serum or plasma creatinine m easurement (mass/volume)Ordered By: Noman Cloud on 02-07-2024 Creatinine [Mass/Vol] 0.85 mg/dL 0.70-1.30 [facility] Comment on above: The validity of the calculated GFR & GFRAA in patients over 70 years has not been determined. Clinical correlation is essential. Serum or plasma urea nitroge n measurement (mass/volume)Ordered By: Noman Cloud on 02-07-2024 Urea nitrogen [Mass/Vol] 15 mg/dL 7-18 [facility] Squamous epithelial cells de tection in urine sediment by light microscopyOrdered By: Noman Cloud on 02-07-2024 Epithelial cells.squamous LM Ql (Urine sed) 0-5 SEEN /hpf 0-5 [facility] Thin prep Papanicolaou smear with manual screeningOrdered By: Noman Cloud on 02-07-2024 Thin prep Papanicolaou smear with manual screening 4 5-15 [facility] Urine blood detectionOrdered By: Noman Cloud on 02-07-2024 RBC Ql (U) 25 /ul Negative [facility] Urine clarityOrdered By: Young Cloud on 02-07-2024 Clarity (U) Clear Clear [facility] Urine color determinationOrd ered By: Noman Cloud on 02-07-2024 Color (U) Stephanie Yellow [facility] Urine glucose detectionOrder ed By: Noman Cloud on 02-07-2024 Glucose Ql (U) Normal mg/dl Normal [facility] Urine leukocyte esterase det ection by dipstickOrdered By: Noman Cloud on 02-07-2024 Leukocyte esterase Test strip Ql (U) 25 /ul Negative [facility] Urine pHOrdered By: Noman ramirez on 02-07-2024 pH (U) 5.0 [pH] 5.0 - 8.0 [facility] Urine sediment bacteria coun t by microscopy (number/high power field)Ordered By: Noman Cloud on 02-07-2024 Bacteria LM.HPF (Urine sed) [#/Area] 0 /[HPF] None Seen [facility] Urine specific gravity measu rementOrdered By: Noman Cloud on 02-07-2024 Specific gravity (U) [Rel density] 1.030 1.002-1.030 [facility] Urine urobilinogen measureme ntOrdered By: Noman Cloud on 02-07-2024 Urobilinogen Ql (U) 8 mg/dl Normal [facility] Laboratory - Drug toxicology Ordered By: Angel Musa on 11-15-2023 Amphetamines Ql (U) Negative <1000 ng/mL [facility] Benzodiazepines Ql (U) Negative < 200 ng/mL [facility] Cannabinoids Screen Ql (U) Negative < 50 ng[facility]mL [facility] [facility] Cocaine Ql (U) Negative < 300 ng/mL [facility] Opiates Ql (U) Positive < 300 ng/mL [facility] No Panel InformationOrdered By: Angel Musa on 11-15-2023 MDMA (Ecstasy) Screen Negative < 500 ng/mL [facility] Miscellaneous Test See comment [facility] Comment on above: [id number] 6+OXYCODONE-B UND (ng/mL) DRUG RESULT SCREEN CUTOFF____ Amphetamines,Urine Negative ng/mL 1000 Amphetamine test includes Amphetamine and Methamphetamine.Barbiturates Negative ng/mL 200Benzodiazepines Negative ng/mL 200Cannabinoid Negative ng/mL 20Cocaine (Metab) Negative ng/mL 300Opiates Negative ng/mL 300 Opiates test includes Codeine, Morphine, Hydromorphone, Hydrocodone. Oxycodone/Oxymorphone,Urine POSITIVE ng/mL 300 Test includes Oxycodone and Oxymorphone. Oxycodone Positive Oxycodone Conf, [place], [place] 1319 ng/mL 300 Oxymorphone Positive Oxymorphone Conf, [place], [place] 2342 ng/mL 300 TESTING PERFORMED AT [facility]. ORIGINAL REPORT ON FILE IN LAB CONTAINS ADDITIONAL TEST SITE INFORMATION. Urine Barbiturates Screen Negative < 200 ng/m L [facility] Urine Drug Screen Comment [facility] Comment on above: CONFIRMATORY TESTING FOR ALL POSITIVE URINE DRUG SCREENRESULTS WILL ONLY BE SENT OUT UPON PHYSICIAN ORDER. VISTA Urine Drug Screen methods provide only preliminaryanalytical test results. A more specific alternate chemicalmethod must be used in order to obtain a confirmedanalytical result. Gas chromatography/mass spectrometery(GC/MS) is the preferred confirmatory method. Clinicalconsideration and professional judgement should be appliedto any drug of abuse test result, particularly whenpreliminary positive results are used. URINE TCA TESTING MUST BE ORDERED SEPARATELY. USE TESTMNEMONIC: [facility] Urine Methadone Screen Negative < 300 ng/mL [facility] Urine phencyclidine (PCP) de tectionOrdered By: Angel Musa on 11-15-2023 Phencyclidine Ql (U) Negative < 25 ng/mL [facility] Absolute lymphocyte counton 09-08-2022 Lymphocytes Auto (Unsp spec) [#/Vol] 1.26 10*3/uL 0.83-4.51 [facility] Work Phone: Basophil percentageon 2021 Basophil percentage 0-5 SEEN /hpf 0-5 [facility] Work Phone: Basophil percentage 3.4 mg/dL 2.5-4.9 [facility] Work Phone: Basophils/100 WBC (Bld) 1.1 % 0-1 [facility] Work Phone: Chloride [Moles/Vol] 107 mmol/L 98-107 [facility] Work Phone: Eosinophils/100 WBC (Bld) 3.1 % 0-5 [facility] Work Phone: Glucose [Mass/Vol] 105 mg/dL 74-106 [facility] Work Phone: Comment on above: Fasting Glucose resu lt from 100 to 125 mg/dL suggests IMPAIRED HOMEOSTASIS per A.D.A. criteria. Neutrophils (Bld) [#/Vol] 4.8 10*3/uL 2.0-7.7 [facility] Work Phone: Neutrophils/100 WBC (Bld) 65.1 % 47-70 [facility] Work Phone: Potassium [Moles/Vol] 4.2 mmol/L 3.5-5.1 [facility] Work Phone: Sodium [Moles/Vol] 138 mmol/L 136-145 [facility] Work Phone: WBC (Bld) [#/Vol] 7.4 10*3/uL 4.4-11.0 [facility] Work Phone: [phone] Bilirubin Test strip Ql (U)o n 09-08-2022 Bilirubin Ql (U) Negative Negative [facility] Work Phone: [phone] Blood erythrocytes count (nu mber/volume)on 09-08-2022 RBC (Bld) [#/Vol] 5.16 10*6/uL 4.6-6.2 [facility] Work Phone: Blood hemoglobin measurement (mass/volume)on 09-08-2022 Hemoglobin (Bld) [Mass/Vol] 15.0 g/dL 13.0-16.5 [facility] Work Phone: Blood lymphocytes/100 leukoc yteson 09-08-2022 Lymphocytes/100 WBC (Bld) 16.9 % 19-41 [facility] Work Phone: Blood monocytes/100 leukocyt eson 09-08-2022 Monocytes/100 WBC (Bld) 13.3 % 0-10 [facility] Work Phone: Blood platelet mean volumeon 09-08-2022 Platelet mean volume (Bld) [Entitic vol] 10.9 fL 6.2-12.0 [facility] Work Phone: Determination of erythrocyte mean corpuscular volume (MCV)on 09-08-2022 MCV (RBC) [Entitic vol] 92.6 fL 80-94 [facility] Work Phone: Hematocrit Auto (Bld) [Volum e fraction]on 09-08-2022 Hematocrit (Bld) [Volume fraction] 47.8 % 40-54 [facility] Work Phone: INR in Blood by Coagulation assayon 09-08-2022 INR Coag (Bld) [Relative time] 4.7 {INR} [facility] Work Phone: Comment on above: CRITICAL VALUE VERIF IED. CALLED TO Grecia CORTEZ RN [id number] Shahzad Colvin.RESULTS READ BACK BY SAME. Ketones Test strip Ql (U)on 09-08-2022 Ketones Ql (U) Negative Negative [facility] Work Phone: Laboratory - Chemistry and C hemistry - challengeon 09-08-2022 CO2 [Moles/Vol] 26.0 mmol/L 21.0-32.0 [facility] Work Phone: Urea nitrogen/Creatinine [Mass ratio] 25.6 mg/mg 09-01 [facility] Work Phone: Laboratory - Coagulationon PT Coag (PPP) [Time] 44.4 s 11.7-14.9 [facility] Work Phone: Laboratory - Hematology and Cell countson 09-08-2022 Erythrocyte distribution width (RBC) [Entitic vol] 51.0 fL 35.1-43.9 [facility] Work Phone: Erythrocyte distribution width (RBC) [Ratio] 14.8 % 11.6-14.6 [facility] Work Phone: Immature granulocytes/100 WBC (Bld) 0.500 % 0.0-0.9 [facility] Work Phone: Comment on above: IG% - Immature Granu locytes (promyelocytes, myelocytes and metamyelocytes) > 1% indicates that a LEFT SHIFT is Present. MCH (RBC) [Entitic mass] 29.1 pg 27.0-32.0 [facility] Work Phone: Nucleated RBC/100 WBC (Bld) [Ratio] 0 % 0-5 [facility] Work Phone: MCHC Auto (RBC) [Mass/Vol]on 09-08-2022 MCHC (RBC) [Mass/Vol] 31.4 g/dL 32-36 [facility] Work Phone: Mucus LM Ql (Urine sed)on Mucus Ql (Urine sed) RARE /hpf [facility] Work Phone: Nitrite Test strip Ql (U)on 09-08-2022 Nitrite Ql (U) Negative Negative [facility] Work Phone: No Panel Informationon 09-08 Estimated Creatinine Clearance Calc 84.99 ml/min [facility] Work Phone: Estimated GFR (MDRD) Amer 106 mL/min >60 [facility] Work Phone: Comment on above: GFR Calc Estimated GFR (MDRD) Non-Af Amer 88 mL/min >60 [facility] Work Phone: Comment on above: Non- GFR Calc Platelets bldon 09-08-2022 Platelets (Bld) [#/Vol] 245 10*3/uL 150-450 [facility] Work Phone: Protein Test strip Ql (U)on 09-08-2022 Protein Ql (U) 15 mg/dl Negative [facility] Work Phone: Serum or plasma calcium sawyer urement (mass/volume)on 09-08-2022 Calcium [Mass/Vol] 9.6 mg/dL 8.5-10.1 [facility] Work Phone: Serum or plasma creatinine m easurement (mass/volume)on 09-08-2022 Creatinine [Mass/Vol] 0.90 mg/dL 0.70-1.30 [facility] Work Phone: Comment on above: The validity of the calculated GFR & GFRAA in patients over 70 years has not been determined. Clinical correlation is essential. Serum or plasma urea nitroge n measurement (mass/volume)on 09-08-2022 Urea nitrogen [Mass/Vol] 23 mg/dL 7-18 [facility] Work Phone: Squamous epithelial cells de tection in urine sediment by light microscopyon 09-08-2022 Epithelial cells.squamous LM Ql (Urine sed) 0-5 SEEN /hpf 0-5 [facility] Work Phone: Thin prep Papanicolaou smear with manual screeningon 09-08-2022 Thin prep Papanicolaou smear with manual screening 5 5-15 [facility] Work Phone: Urine blood detectionon 08-14 RBC Ql (U) 250 /ul Negative [facility] Work Phone: RBC Ql (U) 25-50 SEEN /hpf 0-5 [facility] Work Phone: Urine clarityon 09-08-2022 Clarity (U) Sl Cloudy Clear [facility] Work Phone: Urine color determinationon 09-08-2022 Color (U) Yellow Yellow [facility] Work Phone: Urine glucose detectionon Glucose Ql (U) Normal mg/dl Normal [facility] Work Phone: Urine leukocyte esterase det ection by dipstickon 09-08-2022 Leukocyte esterase Test strip Ql (U) 25 /ul Negative [facility] Work Phone: Urine pHon 09-08-2022 pH (U) 5.0 [pH] 5.0 - 8.0 [facility] Work Phone: Urine sediment bacteria coun t by microscopy (number/high power field)on 09-08-2022 Bacteria LM.HPF (Urine sed) [#/Area] RARE /hpf None Seen [facility] Work Phone: Urine specific gravity measu rementon 09-08-2022 Specific gravity (U) [Rel density] 1.015 1.002-1.030 [facility] Work Phone: Urobilinogen Auto test strip Ql (U)on 09-08-2022 Urobilinogen Ql (U) Normal mg/dl Normal [facility] Work Phone: Laboratory - Chemistry and C hemistry - challengeon 09-07-2022 Magnesium [Mass/Vol] 1.9 mg/dL 1.6-2.6 [facility] Work Phone: No Panel Informationon 09-07 Troponin I High Sensitivity 13 pg/mL 3.0-78.0 [facility] Work Phone: Comment on above: Please Note: New Luz t Units and Gender Specific Reference Ranges. For more information see Policy Stat Procedure [place] High Sensitivity Troponin (TNIH) and attachments. Vitamin D 25-Hydroxy 70.5 ng/mL [facility] Work Phone: Comment on above: Vitamin D 25(OH) Sta tus Range Deficiency <20 ng/mL (50nmol/L) Insufficiency 20 - 30 ng/mL (50 - 75 nmol/L) Sufficiency 30 - 100 ng/mL (75 - 250 nmol/L) Toxicity >100 ng/mL (>250 nmol/L) Absolute lymphocyte counton 2022 Lymphocytes Auto (Unsp spec) [#/Vol] 1.90 10*3/uL 0.83-4.51 [facility] Work Phone: Basophil percentageon 2021 Lactate [Moles/Vol] 1.8 mmol/L 0.4-2.0 [facility]: Basophil percentage 0-5 SEEN /hpf 0-5 [facility] Work Phone: Basophils/100 WBC (Bld) 1.0 % 0-1 [facility] Work Phone: Bilirubin [Mass/Vol] 1.30 mg/dL 0.20-1.00 [facility] Work Phone: Comment on above: For patients on eltr ombopag therapy, use of Dimension [place] TBIL is not recommended. Chloride [Moles/Vol] 105 mmol/L 98-107 [facility] Work Phone: Eosinophils/100 WBC (Bld) 1.0 % 0-5 [facility] Work Phone: Glucose [Mass/Vol] 156 mg/dL 74-106 [facility] Work Phone: Comment on above: Fasting Glucose resu lt greater than or equal to 126 mg/dL suggests DIABETES MELLITUS per A.D.A. criteria. Neutrophils (Bld) [#/Vol] 5.9 10*3/uL 2.0-7.7 [facility] Work Phone: Neutrophils/100 WBC (Bld) 66.1 % 47-70 [facility] Work Phone: Potassium [Moles/Vol] 3.9 mmol/L 3.5-5.1 [facility] Work Phone: Protein [Mass/Vol] 8.6 g/dL 6.4-8.2 [facility] Work Phone: [phone] Sodium [Moles/Vol] 138 mmol/L 136-145 [facility] Work Phone: WBC (Bld) [#/Vol] 8.9 10*3/uL 4.4-11.0 [facility] Work Phone: Bilirubin Test strip Ql (U)o n 2022 Bilirubin Ql (U) 1 mg/dL Negative [facility] Work Phone: Comment on above: COLOR OF URINE MAY A FFECT DIPSTICK RESULTS. Blood erythrocytes count (nu mber/volume)on 2022 RBC (Bld) [#/Vol] 5.75 10*6/uL 4.6-6.2 [facility] Work Phone: Blood hemoglobin measurement (mass/volume)on 2022 Hemoglobin (Bld) [Mass/Vol] 16.7 g/dL 13.0-16.5 [facility] Work Phone: Blood lymphocytes/100 leukoc yteson 2022 Lymphocytes/100 WBC (Bld) 21.3 % 19-41 [facility] Work Phone: Blood monocytes/100 leukocyt eson 2022 Monocytes/100 WBC (Bld) 10.3 % 0-10 [facility] Work Phone: Blood platelet mean volumeon 2022 Platelet mean volume (Bld) [Entitic vol] 11.5 fL 6.2-12.0 [facility] Work Phone: Determination of erythrocyte mean corpuscular volume (MCV)on 2022 MCV (RBC) [Entitic vol] 90.1 fL 80-94 [facility] Work Phone: Direct bilirubinon 2 Bilirubin.direct [Mass/Vol] 0.48 mg/dL 0.00-0.30 [facility] Work Phone: Hematocrit Auto (Bld) [Volum e fraction]on 2022 Hematocrit (Bld) [Volume fraction] 51.8 % 40-54 [facility] Work Phone: Hyaline casts LM.LPF (Urine sed) [#/Area]on 2022 Hyaline casts (Urine sed) [#/Area] 0 /[LPF] 0-5 [facility] Work Phone: INR in Blood by Coagulation assayon 2022 INR Coag (Bld) [Relative time] 6.1 {INR} [facility] Work Phone: Comment on above: CRITICAL VALUE VERIF IED. CALLED TO [id number] Julianne Sal.RESULTS READ BACK BY SAME . Ketones Test strip Ql (U)on 2022 Ketones Ql (U) 5 mg/dl Negative [facility] Work Phone: Laboratory - Chemistry and C hemistry - challengeon 2022 ALP [Catalytic activity/Vol] 105 U/L 45-117 [facility] Work Phone: ALT [Catalytic activity/Vol] 25 U/L 16-61 [facility] Work Phone: CO2 [Moles/Vol] 25.0 mmol/L 21.0-32.0 [facility] Work Phone: Globulin (S) [Mass/Vol] 5.5 g/dL 2.2-4.2 [facility] Work Phone: Lipase [Catalytic activity/Vol] 67 U/L 73-393 [facility] Work Phone: Natriuretic peptide B (Bld) [Mass/Vol] 273.3 pg/mL 0-100 [facility] Work Phone: Urea nitrogen/Creatinine [Mass ratio] 15.1 mg/mg 10-20 [facility] Work Phone: Laboratory - Coagulationon 1 PT Coag (PPP) [Time] 54.0 s 11.7-14.9 [facility] Work Phone: Laboratory - Hematology and Cell countson 2022 Erythrocyte distribution width (RBC) [Entitic vol] 47.7 fL 35.1-43.9 [facility] Work Phone: Erythrocyte distribution width (RBC) [Ratio] 14.5 % 11.6-14.6 [facility] Work Phone: Immature granulocytes/100 WBC (Bld) 0.300 % 0.0-0.9 [facility] Work Phone: Comment on above: IG% - Immature Granu locytes (promyelocytes, myelocytes and metamyelocytes) > 1% indicates that a LEFT SHIFT is Present. MCH (RBC) [Entitic mass] 29.0 pg 27.0-32.0 [facility] Work Phone: Nucleated RBC/100 WBC (Bld) [Ratio] 0 % 0-5 [facility] Work Phone: MCHC Auto (RBC) [Mass/Vol]on 2022 MCHC (RBC) [Mass/Vol] 32.2 g/dL 32-36 [facility] Work Phone: Mucus LM Ql (Urine sed)on Mucus Ql (Urine sed) 1+ /hpf [facility] Work Phone: Nitrite Test strip Ql (U)on 2022 Nitrite Ql (U) Negative Negative [facility] Work Phone: No Panel Informationon 09-06 Estimated Creatinine Clearance Calc 60.68 ml/min [facility] Work Phone: Estimated GFR (MDRD) Amer 77 mL/min >60 [facility] Work Phone: Comment on above: GFR Calc Estimated GFR (MDRD) Non-Af Amer 64 mL/min >60 [facility] Work Phone: Comment on above: Non- GFR Calc Troponin I High Sensitivity 16 pg/mL 3.0-78.0 [facility] Work Phone: Comment on above: Please Note: New Luz t Units and Gender Specific Reference Ranges. For more information see Policy Stat Procedure [place] High Sensitivity Troponin (TNIH) and attachments. Platelets bldon 2022 Platelets (Bld) [#/Vol] 275 10*3/uL 150-450 [facility] Work Phone: Protein Test strip Ql (U)on 2022 Protein Ql (U) 30 mg/dl Negative [facility] Work Phone: Serum or plasma albumin sawyer urement (mass/volume)on 2022 Albumin [Mass/Vol] 3.1 g/dL 3.2-5.0 [facility] Work Phone: Serum or plasma calcium sawyer urement (mass/volume)on 2022 Calcium [Mass/Vol] 10.2 mg/dL 8.5-10.1 [facility] Work Phone: Serum or plasma creatinine m easurement (mass/volume)on 2022 Creatinine [Mass/Vol] 1.19 mg/dL 0.70-1.30 [facility] Work Phone: Comment on above: The validity of the calculated GFR & GFRAA in patients over 70 years has not been determined. Clinical correlation is essential. Serum or plasma urea nitroge n measurement (mass/volume)on 2022 Urea nitrogen [Mass/Vol] 18 mg/dL 7-18 [facility] Work Phone: Squamous epithelial cells de tection in urine sediment by light microscopyon 2022 Epithelial cells.squamous LM Ql (Urine sed) 0-5 SEEN /hpf 0-5 [facility] Work Phone: Thin prep Papanicolaou smear with manual screeningon 2022 Thin prep Papanicolaou smear with manual screening 28 U/L 15-37 [facility] Work Phone: Thin prep Papanicolaou smear with manual screening 8 5-15 [facility] Work Phone: Urine blood detectionon 08-14 RBC Ql (U) 10 /ul Negative [facility] Work Phone: RBC Ql (U) 0-5 SEEN /hpf 0-5 [facility] Work Phone: Urine clarityon 2022 Clarity (U) Clear Clear [facility] Work Phone: Urine color determinationon 2022 Color (U) Yellow Yellow [facility] Work Phone: Urine glucose detectionon Glucose Ql (U) Normal mg/dl Normal [facility] Work Phone: Urine leukocyte esterase det ection by dipstickon 2022 Leukocyte esterase Test strip Ql (U) 25 /ul Negative [facility] Work Phone: Urine pHon 2022 pH (U) 6.5 [pH] 5.0 - 8.0 [facility] Work Phone: Urine sediment bacteria coun t by microscopy (number/high power field)on 2022 Bacteria LM.HPF (Urine sed) [#/Area] 1 /[HPF] None Seen [facility] Work Phone: Urine sediment fine granular cast count by microscopy (number/low power field)on 2022 Fine Granular Casts LM.LPF (Urine sed) [#/Area] 0-5 SEEN /lpf 0-5 [facility] Work Phone: Urine specific gravity measu rementon 2022 Specific gravity (U) [Rel density] 1.015 1.002-1.030 [facility] Work Phone: Urobilinogen Auto test strip Ql (U)on 2022 Urobilinogen Ql (U) 8 mg/dl Normal [facility] Work Phone: Vital Signs Date Time Vital Sign Value Performing Clinician Faci lity 05-15-2025 08:02-0400 Body temperature 96.7 [degF] Dr. Freedom Sutton MD Work Phone: [facility] 05-15-2025 08:02-0400 Diastolic blood pressure 50 mm[Hg] Dr. Freedom Sutton MD Work Phone: [facility] 05-15-2025 08:02-0400 Heart rate 70 /min Dr. Freedom Sutton MD Work Phone: [facility] 05-15-2025 08:02-0400 Respiratory rate 16 /min Dr. Freedom Sutton MD Work Phone: 9(957)[phone] [place] [address] 05-15-2025 08:02-0400 Systolic blood pressure 106 mm[Hg] Dr. Freedom Sutton MD Work Phone: 9(605)[phone] [place] [address] 05-08-2025 08:06-0400 Body mass index (BMI) [Ratio] 35.5 kg/m2 Dr. Freedom Stuton MD Work Phone: 1(222)[phone] [place] [address] 05-08-2025 08:06-0400 Body temperature 97 [degF] Dr. Freedom Sutton MD Work Phone: 1(558)[phone] [place] [address] 05-08-2025 08:06-0400 Diastolic blood pressure 68 mm[Hg] Dr. Freedom Sutton MD Work Phone: 7(280)149-165552 [place] [address] 05-08-2025 08:06-0400 Heart rate 75 /min Dr. Freedom Sutton MD Work Phone: 7(148)[phone] [place] [address] 05-08-2025 08:06-0400 Respiratory rate 18 /min Dr. Freedom Sutton MD Work Phone: 7(441)828-094152 [place] [address] 05-08-2025 08:06-0400 Systolic blood pressure 116 mm[Hg] Dr. Freedom Sutton MD Work Phone: 6(657)633-210352 [place] [address] 04-13-2025 00:23-0400 Body weight 105.[address] Freedom Sutton MD Work Phone: 7(793)[phone] [place] [address] 04-10-2025 08:12-0400 Body mass index (BMI) [Ratio] 35.5 kg/m2 Dr. Freedom Sutton MD Work Phone: 2(118)[phone] [place] [address] 04-10-2025 08:12-0400 Body temperature 98.7 [degF] Dr. Freedom Sutton MD Work Phone: 7(356)028-203052 [place] [address] 04-10-2025 08:12-0400 Diastolic blood pressure 57 mm[Hg] Dr. Freedom Sutton MD Work Phone: 3(461)340-811852 [place] [address] 04-10-2025 08:12-0400 Heart rate 92 /min Dr. Freedom Sutton MD Work Phone: 0(659)189-697352 [place] [address] 04-10-2025 08:12-0400 Respiratory rate 20 /min Dr. Freedom Sutton MD Work Phone: 7(110)110-095752 [place] [address] 04-10-2025 08:12-0400 Systolic blood pressure 108 mm[Hg] Dr. Freedom Sutton MD Work Phone: 6(558)224-879152 [place] [address] 03-27-2025 14:52-0400 Body height 172.[address] Freedom Sutton MD Work Phone: 2(855)185-781552 [place] [address] 03-27-2025 14:52-0400 Body weight 105.[address] Freedom Sutton MD Work Phone: 4(091)[phone] [place] [address] 03-17-2025 07:33-0400 Body mass index (BMI) [Ratio] 33.2 kg/m2 Dr. Freedom Sutton MD Work Phone: 5(234)306-111652 [place] [address] 03-17-2025 07:33-0400 Body weight 111.[address] Freedom Sutton MD Work Phone: 7(319)239-051552 [place] [address] 03-17-2025 07:33-0400 Diastolic blood pressure 74 mm[Hg] Dr. Freedom Sutton MD Work Phone: 9(837)528-383052 [place] [address] 03-17-2025 07:33-0400 Heart rate 52 /min Dr. Freedom Sutton MD Work Phone: 8(510)937-698552 [place] [address] 03-17-2025 07:33-0400 Respiratory rate 18 /min Dr. Freedom Sutton MD Work Phone: 4(114)[phone] [place] [address] 03-17-2025 07:33-0400 SaO2% (BldA) [Mass fraction] 97 % Dr. Freedom Sutton MD Work Phone: 0(176)950-681652 [place] [address] 03-17-2025 07:33-0400 Systolic blood pressure 130 mm[Hg] Dr. Freedom Sutton MD Work Phone: 3(458)[phone] [place] [address] 01-09-2025 08:48-0500 Body mass index (BMI) [Ratio] 29.9 kg/m2 Dr. Freedom Sutton MD Work Phone: 9(459)[phone] [place] [address] 01-09-2025 08:48-0500 Body temperature 97 [degF] Dr. Freedom Sutton MD Work Phone: 7(256)[phone] [place] [address] 01-09-2025 08:48-0500 Diastolic blood pressure 53 mm[Hg] Dr. Freedom Sutton MD Work Phone: 0(481)134-682052 [place] [address] 01-09-2025 08:48-0500 Heart rate 64 /min Dr. Freedom Sutton MD Work Phone: 0(261)[phone] [place] [address] 01-09-2025 08:48-0500 Respiratory rate 18 /min Dr. Freedom Sutton MD Work Phone: 6(662)[phone] [place] [address] 01-09-2025 08:48-0500 Systolic blood pressure 142 mm[Hg] Dr. Freedom Sutton MD Work Phone: 9(029)[phone] [place] [address] 12-14-2024 01:35-0500 Body weight 100.[address] Freedom Sutton MD Work Phone: 0(604)095-335752 [place] [address] 12-12-2024 08:26-0500 Body mass index (BMI) [Ratio] 29.9 kg/m2 Dr. Freedom Sutton MD Work Phone: 9(162)[phone] [place] [address] 12-12-2024 08:26-0500 Body temperature 97.1 [degF] Dr. Freedom Sutton MD Work Phone: 0(063)[phone] [place] [address] 12-12-2024 08:26-0500 Diastolic blood pressure 82 mm[Hg] Dr. Freedom Sutton MD Work Phone: 8(195)[phone] [place] [address] 12-12-2024 08:26-0500 Heart rate 79 /min Dr. Freedom Sutton MD Work Phone: 2(399)075-466952 [place] [address] 12-12-2024 08:26-0500 Respiratory rate 18 /min Dr. Freedom Sutton MD Work Phone: 8([phone])[phone] [place] [address] 12-12-2024 08:26-0500 Systolic blood pressure 138 mm[Hg] Dr. Freedom Sutton MD Work Phone: [facility] 11-14-2024 08:56-0500 Body height 182.[address] Freedom Sutton MD Work Phone: [facility] 11-14-2024 08:56-0500 Body weight 100.[address] Freedom Sutton MD Work Phone: [facility] 07-16-2024 13:46-0400 Body height 182.9 cm Tri Coni [employer]TISUBMARINE OFFICER - INTERVENTION TEACHER Work Phone: [facility] [employer] 07-16-2024 13:46-0400 Body mass index (BMI) [Ratio] 31.33 kg/m2 Trijarad Newberry [employer] ANTISUBMARINE OFFICER - INTERVENTION TEACHER Work Phone: [facility] [employer] 07-16-2024 13:46-0400 Body weight 104.78 kg Tri Coni [employer]TISUBMARINE OFFICER - INTERVENTION TEACHER Work Phone: [facility] [employer] 07-16-2024 13:46-0400 Diastolic blood pressure 58 mm[Hg] Tri Newberry [employer] ANTISUBMARINE OFFICER - INTERVENTION TEACHER Work Phone: [facility] [employer] 07-16-2024 13:46-0400 Heart rate 60 /min Tri Newberry [employer]TISUBMARINE OFFICER - INTERVENTION TEACHER Work Phone: [facility] [employer] 07-16-2024 13:46-0400 SaO2% (BldA) [Mass fraction] 97 % Tri Newberry [employer]TISUBMARINE OFFICER - INTERVENTION TEACHER Work Phone: [facility] [employer] 07-16-2024 13:46-0400 Systolic blood pressure 114 mm[Hg] Tri Newberry [employer] ANTISUBMARINE OFFICER - INTERVENTION TEACHER Work Phone: [facility] [employer] 07-09-2024 14:00-0400 Diastolic blood pressure 51 mm[Hg] Jero Reyes MD Work Phone: [facility] [employer] 07-09-2024 14:00-0400 Heart rate 63 /min Jero Li Work Phone: [facility] [employer] 07-09-2024 14:00-0400 Respiratory rate 16 /min Jero Li Work Phone: [facility] [employer] 07-09-2024 14:00-0400 Systolic blood pressure 110 mm[Hg] Jero Reyes MD Work Phone: [facility] [employer] 07-09-2024 13:00-0400 SaO2% (BldA) [Mass fraction] 97 % Jero Reyes MD Work Phone: [facility] [employer] 07-09-2024 12:00-0400 Body temperature 97.9 [degF] Jero Li Work Phone: [facility] [employer] 07-09-2024 05:00-0400 Body mass index (BMI) [Ratio] 32.29 kg/m2 Jero Reyes MD Work Phone: [facility] [employer] 07-09-2024 05:00-0400 Body weight 105 kg Jero Li Work Phone: [facility] [employer] 07-08-2024 16:15-0400 Body height 180.3 cm Jero Li Work Phone: [facility] [employer] 07-02-2024 10:07-0400 Body height 180.3 cm Tri Newberry AIR ANTISUBMARINE OFFICER - INTERVENTION TEACHER Work Phone: [facility] [employer] 07-02-2024 10:07-0400 Body mass index (BMI) [Ratio] 32.36 kg/m2 Tri Newberry [employer] ANTISUBMARINE OFFICER - INTERVENTION TEACHER Work Phone: [facility] [employer] 07-02-2024 10:07-0400 Body weight 105.23 kg Tri Newberry [employer] ANTISUBMARINE OFFICER - INTERVENTION TEACHER Work Phone: [facility] [employer] 07-02-2024 10:07-0400 Diastolic blood pressure 62 mm[Hg] Tri Newberry [employer] ANTISUBMARINE OFFICER - INTERVENTION TEACHER Work Phone: [facility] [employer] 07-02-2024 10:07-0400 Heart rate 66 /min Tri Newberry [employer] ANTISUBMARINE OFFICER - INTERVENTION TEACHER Work Phone: [facility] [employer] 07-02-2024 10:07-0400 SaO2% (BldA) [Mass fraction] 98 % Tri Newberry [employer] ANTISUBMARINE OFFICER - INTERVENTION TEACHER Work Phone: [facility] [employer] 07-02-2024 10:07-0400 Systolic blood pressure 110 mm[Hg] Tri Newberry [employer] ANTISUBMARINE OFFICER - INTERVENTION TEACHER Work Phone: [facility] [employer] 05-14-2024 15:26-0400 Body height 182.9 cm Rebeca Grossman DO Work Phone: [employer] 05-14-2024 15:26-0400 Body mass index (BMI) [Ratio] 35.88 kg/m2 Rebeca Grossman DO Work Phone: [employer] 05-14-2024 15:26-0400 Body weight 120 kg Rebeca Grossman DO Work Phone: [employer] 05-14-2024 15:26-0400 Diastolic blood pressure 80 mm[Hg] Rebeca Grossman DO Work Phone: [employer] 05-14-2024 15:26-0400 Heart rate 57 /min Rebeca Grossman DO Work Phone: [facility] [employer] 05-14-2024 15:26-0400 Systolic blood pressure 124 mm[Hg] Rebeca Grossman DO Work Phone: [employer] 05-14-2024 15:05-0400 Body height 182.9 cm Jero Li Work Phone: [facility] [employer] 05-14-2024 15:05-0400 Body mass index (BMI) [Ratio] 35.8 kg/m2 Jero Reyes MD Work Phone: [facility] [employer] 05-14-2024 15:05-0400 Body weight 119.75 kg Jero Li Work Phone: [employer] 05-14-2024 15:05-0400 Diastolic blood pressure 80 mm[Hg] Jero Reyes MD Work Phone: [facility] [employer] 05-14-2024 15:05-0400 Heart rate 57 /min Jero Li Work Phone: [facility] [employer] 05-14-2024 15:05-0400 SaO2% (BldA) [Mass fraction] 97 % Jero Reyes MD Work Phone: [facility] 05-14-2024 15:05-0400 Systolic blood pressure 124 mm[Hg] Jero Reyes MD Work Phone: [facility] 03-10-2024 08:04-0400 Body temperature 98.5 [degF] [facility] 03-10-2024 08:04-0400 Diastolic blood pressure 58 mm[Hg] [facility] 03-10-2024 08:04-0400 Heart rate 85 /min [facility] 03-10-2024 08:04-0400 Respiratory rate 16 /min [facility] 03-10-2024 08:04-0400 SaO2% (BldA) [Mass fraction] 94 % [facility] 03-10-2024 08:04-0400 Systolic blood pressure 102 mm[Hg] [facility] 03-10-2024 06:00-0400 Body mass index (BMI) [Ratio] 36.7 kg/m2 [facility] 03-10-2024 06:00-0400 Body weight 118.93 kg [facility] 03-06-2024 13:45-0400 Body height 180.34 cm [facility] 03-05-2024 18:45-0400 Inhaled oxygen concentration 21 % [facility] 03-04-2024 13:17-0400 Inhaled oxygen flow rate 3 L/min [facility] 02-23-2024 15:10-0400 Body temperature 98.1 [degF] [facility] 02-23-2024 15:10-0400 Diastolic blood pressure 64 mm[Hg] [facility] 02-23-2024 15:10-0400 Heart rate 65 /min [facility] 02-23-2024 15:10-0400 Respiratory rate 18 /min [facility] 02-23-2024 15:10-0400 SaO2% (BldA) [Mass fraction] 96 % [facility] 02-23-2024 15:10-0400 Systolic blood pressure 98 mm[Hg] [facility] 02-23-2024 14:00-0400 Inhaled oxygen flow rate 2 L/min [facility] 02-23-2024 03:41-0400 Body mass index (BMI) [Ratio] 34.2 kg/m2 [facility] 02-23-2024 03:41-0400 Body weight 111.2 kg [facility] 02-22-2024 11:32-0400 Body height 180.34 cm [facility] 02-17-2024 04:40-0400 Body temperature 97.8 [degF] [facility] 02-17-2024 04:40-0400 Diastolic blood pressure 82 mm[Hg] [facility] 02-17-2024 04:40-0400 Heart rate 99 /min [facility] 02-17-2024 04:40-0400 Inhaled oxygen flow rate 4 L/min [facility] 02-17-2024 04:40-0400 Respiratory rate 23 /min [facility] 02-17-2024 04:40-0400 SaO2% (BldA) [Mass fraction] 94 % [facility] 02-17-2024 04:40-0400 Systolic blood pressure 126 mm[Hg] [facility] 02-17-2024 02:39-0400 Body height 180.34 cm [facility] 02-17-2024 02:39-0400 Body mass index (BMI) [Ratio] 35.6 kg/m2 [facility] 02-17-2024 02:39-0400 Body weight 116 kg [facility] 02-16-2024 14:20-0400 Body temperature 98.9 [degF] [facility] 02-16-2024 14:20-0400 Diastolic blood pressure 78 mm[Hg] [facility] 02-16-2024 14:20-0400 Heart rate 66 /min [facility] 02-16-2024 14:20-0400 Respiratory rate 16 /min [facility] 02-16-2024 14:20-0400 SaO2% (BldA) [Mass fraction] 97 % [facility] 02-16-2024 14:20-0400 Systolic blood pressure 122 mm[Hg] [facility] 02-16-2024 06:00-0400 Body mass index (BMI) [Ratio] 33.3 kg/m2 [facility] 02-16-2024 06:00-0400 Body weight 108.3 kg [facility] 02-14-2024 15:12-0400 Body height 180.34 cm [facility] 02-12-2024 19:25-0400 Inhaled oxygen concentration 21 % [facility] 02-11-2024 15:57-0400 Inhaled oxygen flow rate 92 L/min [facility] 02-07-2024 19:00-0400 Diastolic blood pressure 68 mm[Hg] [facility] 02-07-2024 19:00-0400 Heart rate 78 /min [facility] 02-07-2024 19:00-0400 Respiratory rate 19 /min [facility] 02-07-2024 19:00-0400 Systolic blood pressure 134 mm[Hg] [facility] 02-07-2024 18:06-0400 Body temperature 97.7 [degF] [facility] 02-07-2024 18:06-0400 SaO2% (BldA) [Mass fraction] 90 % [facility] 02-07-2024 17:29-0400 Body mass index (BMI) [Ratio] 43.2 kg/m2 [facility] 02-07-2024 17:29-0400 Body weight 144.6 kg [facility] 02-07-2024 17:02-0400 Body height 182.88 cm [facility] 09-08-2022 14:50-0400 Heart rate 92 /min [facility] Work Phone: 09-08-2022 14:00-0400 Body temperature 97.9 [degF] [facility] Work Phone: 09-08-2022 14:00-0400 Diastolic blood pressure 69 mm[Hg] [facility] Work Phone: 09-08-2022 14:00-0400 Respiratory rate 18 /min [facility] Work Phone: 09-08-2022 14:00-0400 SaO2% (BldA) [Mass fraction] 95 % [facility] Work Phone: 09-08-2022 14:00-0400 Systolic blood pressure 112 mm[Hg] [facility] Work Phone: 09-07-2022 13:38-0400 Body height 187.96 cm [facility] Work Phone: 09-07-2022 13:38-0400 Body weight 135.5 kg [facility] Work Phone: 2022 23:27-0400 Body mass index (BMI) [Ratio] 38.3 kg/m2 [facility] Work Phone: 2022 23:06-0400 Diastolic blood pressure 86 mm[Hg] [facility] Work Phone: 2022 23:06-0400 Heart rate 82 /min [facility] Work Phone: 2022 23:06-0400 Respiratory rate 17 /min [facility] Work Phone: 2022 23:06-0400 SaO2% (BldA) [Mass fraction] 95 % [facility] Work Phone: 2022 23:06-0400 Systolic blood pressure 138 mm[Hg] [facility] Work Phone: 2022 22:00-0400 Body temperature 97.7 [degF] [facility] Work Phone: 2022 17:01-0400 Body height 182.88 cm [facility] Work Phone: 2022 17:01-0400 Body mass index (BMI) [Ratio] 40.6 kg/m2 [facility] Work Phone: 2022 17:01-0400 Body weight 136.1 kg [facility] Work Phone: Encounters Encounter Date Encounter Type Care Provider Facility Start: 07-22-2025 ambulatory [facility] Facility:[facility] Start: 07-01-2025 End: 07-01-[address] Freedom Sutton MD Work Phone: -Laboratory Start: 07-01-2025 End: 07-01-[address] Shady Obrien MD -Laboratory Work Phone: Start: 07-01-2025 End: 07-01-2025 ambulatory Shady Obrien Facility:[facility] Start: 06-13-2025 ambulatory Shady Obrien Facility :[facility] Start: 05-27-2025 End: 05-27-[address] Freedom Sutton MD Work Phone: -Radiology [facility] Start: 05-27-2025 End: 05-27-[address] Angel Musa MD -Radiology [facility] Work Phone: Start: 05-27-2025 End: 05-27-2025 ambulatory Freedom Sutton Facility:[facility] Start: 05-15-[address] Shady hoang MD -Laboratory Work Phone: Start: 05-15-2025 End: 06-12-2025 Discharged Recurring Shady Ogden DPM -Wound Healing [facility] Work Phone: Start: 05-15-2025 End: 06-12-[address] Freedom Sutton MD Work Phone: -[facility] [place] Start: 05-08-2025 End: 05-12-[address] Freedom Sutton MD Work Phone: -[facility] Start: 05-08-2025 End: 05-12-2025 Discharged Recurring Shady Ogden DPM -Wound Healing [facility] Work Phone: Start: 04-12-2025 End: 04-12-[address] Freedom Sutton MD Work Phone: [facility] Work Phone: Start: 04-12-2025 End: 04-12-[address] Shady Obrien MD -Laboratory Work Phone: Start: 04-10-2025 End: 04-12-[address] Freedom Sutton MD Work Phone: [facility] Work Phone: Start: 04-10-2025 End: 04-12-2025 Discharged Recurring Shady Ogden DPM -Wound [facility] Work Phone: Start: 04-10-2025 Registered Recurring Shady hernandez DPM -Wound Healing Center Work Phone: Start: 03-27-2025 Non-patient / Non-visit Dr. Kirby Santiago MD -[facility] Start: 03-18-2025 End: 03-18-[address] Freedom Sutton MD Work Phone: [facility] Work Phone: Start: 03-18-2025 End: 03-18-[address] Freedom Sutton MD -Laboratory Work Phone: Start: 03-17-2025 End: 03-17-2025 Patient encounter procedure Kailyn CHO -[facility] Work Phone: Start: 03-17-2025 End: 03-18-2025 ambulatory Freedom Sutton Facility:[facility] Start: 03-10-2025 End: 03-12-[address] Shady Obrien MD -Laboratory Work Phone: Start: 03-10-2025 End: 03-12-2025 ambulatory [facility] Facility:[facility] Start: 02-03-2025 End: 02-03-[address] Shady Obrien MD -Laboratory Work Phone: Start: 02-03-2025 End: 02-03-[address] Freedom Sutotn MD Work Phone: [facility] Work Phone: Start: 01-09-2025 End: 01-10-2025 ambulatory Shady Ogden Facility:[facility] Start: 01-09-2025 End: 01-10-2025 Discharged Recurring Shady Ogden DPM -Wound [facility] Work Phone: Start: 01-07-2025 End: 01-10-[address] Shady Obrien MD -Laboratory Work Phone: Start: 01-07-2025 End: 01-10-2025 ambulatory Shady Obrien Facility:[facility] Start: 12-12-2024 End: 12-13-2024 ambulatory Shady Ogden Facility:[facility] Start: 12-12-2024 End: 12-13-2024 Discharged Recurring Shady Ogden DPM -Wound He[facility] Work Phone: Start: 12-10-2024 End: 12-10-[address] Freedom Sutton MD -Laboratory, Phy Office [address] Start: 12-10-2024 End: 12-10-2024 ambulatory Freedom Sutton Facility:[facility] Start: 11-18-2024 End: 11-18-[address] Shady Obrien MD -Laboratory Work Phone: Start: 11-18-2024 End: 11-18-2024 ambulatory Shady Obrien Facility:[facility] Start: 10-30-2024 End: 10-30-2024 ambulatory Shady Sharon Hill Facility:[facility] Start: 10-30-2024 End: 10-30-[address] Shady Obrien MD -Laboratory Work Phone: Start: 10-02-2024 End: 10-12-2024 ambulatory Shady Obrien Facility:[facility] Start: 09-12-2024 End: 09-12-2024 ambulatory Freedom Chi Herman Facility:[facility] Start: 08-26-2024 End: 08-26-2024 ambulatory Freedom Chi Herman Facility:[facility] Start: 08-26-2024 End: 08-26-2024 ambulatory Shady Obrien Facility:[facility] Start: 08-14-2024 End: 08-14-2024 ambulatory Freedom Chi Herman Facility:[facility] Start: 08-13-2024 ambulatory Osbaldo Eitan [facility] Start: 08-13-2024 End: 08-13-2024 ambulatory Freedom Chi Herman Facility:[facility] Start: 07-29-2024 ambulatory Freedom Chi Herman [facility] Start: 07-22-2024 ambulatory Freedom Chi Herman [facility] Start: 07-17-2024 ambulatory Freedom Chi Herman [facility] Start: 07-16-2024 End: 07-16-2024 Office outpatient visit 25 minutes Tri Coni AIR ANTISUBMARINE OFFICER [email or web address] Work Phone: [facility] Card[facility] Comment on above: Severe aortic stenos is (Primary Dx); Chronic heart failure with preserved ejection fraction (HCC); Longstanding persistent atrial fibrillation (HCC); Coronary artery disease involving [place] coronary artery of [place] heart without angina pectoris Start: 07-16-2024 End: 07-16-2024 ambulatory [facility] Start: 07-09-2024 End: 07-09-2024 Orders Only Oscar Bower AIR ANTISUBMARINE OFFICER [email or web address] Work Phone: [facility] Comment on above: Aortic valve stenosi s, etiology of cardiac valve disease unspecified (Primary Dx) Start: 07-08-2024 End: 07-09-2024 Evaluation and management of inpatient Jero Reyes MD Work Phone: [facility] Cardiac Thoracic Vascular Intensive Care Unit CTV ICU T1 Comment on above: Severe aortic stenos is (Primary Dx) Start: 07-05-2024 End: 07-05-2024 ambulatory Tri Newberry [employer] ANTISUBMARINE OFFICER - INTERVENTION TEACHER Work Phone: [facility] Comment on above: Severe aortic stenos is (Primary Dx) Start: 07-02-2024 End: 07-02-2024 Subsequent hospital visit by physician Oscar Bower AIR ANTISUBMARINE OFFICER - INTERVENTION TEACHER Work Phone: [facility] [address] Comment on above: Severe aortic stenos is Start: 07-02-2024 End: 07-02-2024 ambulatory Tri Newberry AIR ANTISUBMARINE OFFICER - INTERVENTION TEACHER Work Phone: [facility] [address] Comment on above: Severe aortic stenos is Start: 07-02-2024 End: 07-02-2024 Office outpatient visit 25 minutes Tri obopay AIR ANTISUBMARINE OFFICER - INTERVENTION TEACHER Work Phone: [facility] [employer] [facility] Card[facility] Comment on above: Severe aortic stenos is (Primary Dx); Chronic heart failure with preserved ejection fraction (HCC); Essential hypertension; Longstanding persistent atrial fibrillation (HCC) Start: 05-14-2024 End: 05-14-2024 Office outpatient new 60 minutes [employer] Work Phone: [facility] [employer] [facility] Comment on above: Aortic valve stenosi s, etiology of cardiac valve disease unspecified (Primary Dx) Nonrheumatic aortic valve stenosis (Primary Dx); Essential hypertension Start: 05-14-2024 End: 05-14-2024 [facility] [employer] [facility] Start: 04-23-2024 Telephone encounter Jero phan MD Work Phone: [facility] Comment on above: Appointment Request (TAVR referral) Start: 03-21-2024 Patient encounter procedure [facility]-Laboratory Work Phone: Start: 03-18-2024 End: 03-18-2024 ambulatory [facility] Work Phone: Start: 03-18-2024 End: 03-18-2024 Patient encounter procedure [facility]-Laboratory Work Phone: Start: 03-13-2024 End: 03-13-2024 ambulatory [facility] Work Phone: Start: 03-13-2024 End: 03-13-2024 Patient encounter procedure [facility]-Laboratory, Phy Office 3rd Flr Start: 02-23-2024 End: 03-10-2024 Evaluation and management of inpatient [facility]-Transitional Care Unit Start: 02-23-2024 Non-patient / Non-visit [facility] Work Phone: Start: 02-22-2024 Non-patient / Non-visit [facility] Work Phone: Start: 02-22-2024 Non-patient / Non-visit [facility] Start: 02-21-2024 Non-patient / Non-visit [facility] Work Phone: Start: 02-21-2024 Non-patient / Non-visit [facility] Start: 02-20-2024 Non-patient / Non-visit [facility] Work Phone: Start: 02-20-2024 Non-patient / Non-visit [facility] Start: 02-19-2024 Non-patient / Non-visit [facility] Start: 02-19-2024 Non-patient / Non-visit [facility] Start: 02-18-2024 Non-patient / Non-visit [facility] Work Phone: Start: 02-17-2024 End: 02-23-2024 Evaluation and management of inpatient [facility]Progressive Care Unit Work Phone: Start: 02-16-2024 Non-patient / Non-visit [facility] Work Phone: Start: 02-15-2024 Non-patient / Non-visit [facility] Work Phone: Start: 02-14-2024 Non-patient / Non-visit [facility] Work Phone: Start: 02-13-2024 Non-patient / Non-visit [facility] Work Phone: Start: 02-12-2024 Non-patient / Non-visit [facility] Work Phone: Start: 02-11-2024 Non-patient / Non-visit [facility] Work Phone: Start: 02-10-2024 Non-patient / Non-visit [facility] Work Phone: Start: 02-09-2024 Non-patient / Non-visit [facility] Work Phone: Start: 02-09-2024 Non-patient / Non-visit [facility] Start: 02-08-2024 Non-patient / Non-visit [facility] Work Phone: Start: 02-08-2024 Non-patient / Non-visit [facility] Start: 02-07-2024 Non-patient / Non-visit [facility] Work Phone: Start: 02-07-2024 End: 02-16-2024 Evaluation and management of inpatient [facility]-Progressive Care Unit Work Phone: Start: 01-02-2024 ambulatory Kain Hutchison [facility] Comment on above: Population Health Na vigation Outreach ([employer] care gaps) Start: 11-15-2023 End: 11-15-2023 ambulatory [facility] Work Phone: Start: 11-15-2023 End: 11-15-2023 Patient encounter procedure [facility]-Laboratory Work Phone: Start: 01-20-2023 ambulatory Alyssa Almodovar [facility] Comment on above: Population Health Na vigation Outreach ([employer] Care Gaps ) Start: 09-08-2022 Non-patient / Non-visit [facility] Start: 09-07-2022 Non-patient / Non-visit [facility] Start: 09-07-2022 Non-patient / Non-visit [facility] Start: 2022 Non-patient / Non-visit [facility] Start: 2022 End: 09-08-2022 Evaluation and management of inpatient [facility] Start: 06-23-2022 ambulatory Nori Soares [facility] Comment on above: Population Health Na vigation Outreach ([employer] Medicare/) Procedures Date Procedure Procedure Detail Performing Clinician Start: 07-01-2025 Methadone measurement, urine Dr. Freedom burch MD Work Phone: Start: 07-01-[address] Freedom Sutton MD Work Phone: Comment on above: Test Ordered: [id number] X64-Vcdexl+S T8Shujklhzugkg Screen, Urine Negative ng/mL UI Reference Range: [id number]=[id number] test includes Amphetamine and Methamphetamine.Barbiturates Negative ng/mL UI Reference Range: [id number]=873Jlltjuzgysnsemg Negative ng/mL UI Reference Range: Vxuzwq=[id number] (Metab.), Urine Negative ng/mL UI Reference Range: [id number] Note: ng/mL UI See Final Results Reference Range: [id number]=129Eeyjgs test includes Codeine, Morphine, Hydromorphone, Hydrocodone.Opiates Negative UI Reference Range: [id number]=495Vditjn test includes Codeine, Morphine, Hydromorphone, Hydrocodone.6-Acetylmorphine, Urine Negative ng/mL UI Reference Range: Cutoff=10Oxycodone/Oxymorphone, Urine Note: ng/mL UI See Final Results Reference Range: Zqpfpw=207Dzrx includes Oxycodone and OxymorphoneOxycodone/Oxymorph Positive [A ] UI Reference Range: Hrcepd=381Bkwy includes Oxycodone and OxymorphoneOxycodone Positive [A ] UI Reference Range: .Oxycodone Conf, [place], [place] 2234 ng/mL UI Reference Range: Eppkkg=884Oszxrceonhg Positive [A ] UI Reference Range: .Oxymorphone Conf, MS, UR 1933 ng/mL UI Reference Range: Okylac=[id number], Urine Negative ng/mL UI Reference Range: Cutoff=25Methadone Screen, Urine Negative ng/mL UI Reference Range: Itihip=945Zkxhcpkjvizr, Urine Negative ng/mL UI Reference Range: Rypvkt=810Lhxuzafc, Urine Negative ng/mL UI Reference Range: Cutoff=2.0Test includes Fentanyl and NorfentanylThis test was developed and its performance characteristicsdetermined by [employer]. It has not been cleared orapproved by the Food and Drug Administration.Tramadol Negative ng/mL UI Reference Range: Lexdzo=587Tqogingjccrkc, Urine Negative ng/mL UI Reference Range: Cutoff=10Creatinine, Urine 67.8 mg/dL UI Reference Range: 20.0-300.0pH, Urine 7.7 UI Reference Range: 4.5-8.9Performed at: [facility] [id number] [place], [place] [id number] Director: Estefany Camargo PhD, Phone: [phone] at: [address] [id number] Director: Manohar Pathak PhD, Phone: [phone] Start: 05-27-2025 X-ray of lumbar spine, two or three views Dr. Freedom Sutton MD Work Phone: Start: 03-18-[address] Freedom burch MD Work Phone: Start: 03-18-2025 Vitamin D, 25-hydroxy measurement Dr. Nico Sutton MD Work Phone: Comment on above: Vitamin D StatusDeficiency: <20 ng/mL (5 0nmol/L)Insufficiency: 20-30 ng/mL (50-75 nmol/L)Sufficiency: 30-100 ng/mL (75-250 nmol/L)Toxicity: >100 ng/mL (>250 nmol/L) Start: 03-18-[address] Freedom Sutton MD Work Phone: Start: 03-18-2025 End: 03-18-2025 Microbial culture, routine Dr. Freedom Sutton MD Work Phone: Start: 12-10-2024 Measurement of renal function Dr. Freedom riggs MD Work Phone: Comment on above: GFR Calc Start: 12-10-2024 Vitamin D, 25-hydroxy measurement Dr. Nico Sutton MD Work Phone: Comment on above: Vitamin D 25(OH) Status Range Deficiency <20 ng/mL (50nmol/L) Insufficiency 20 - 30 ng/mL (50 - 75 nmol/L) Sufficiency 30 - 100 ng/mL (75 - 250 nmol/L) Toxicity >100 ng/mL (>250 nmol/L) Start: 10-30-2024 SARS-CoV-2, Influenza & RSV (PCR) Dr. Nico Sutton MD Work Phone: Start: 07-16-2024 Ecg routine ecg w/least 12 lds trcg only w/o i&r Jero Reyes MD Work Phone: Start: 07-09-2024 Ecg routine ecg w/least 12 lds trcg only w/o i&r Oscar Bower APRN - INTERVENTION TEACHER Work Phone: Start: 07-09-2024 Basic metabolic panel calcium total Oscar Bower APRN - INTERVENTION TEACHER Work Phone: Start: 07-08-2024 End: 07-08-2024 Basic metabolic panel calcium total Oscar Bower AIR ANTISUBMARINE OFFICER - INTERVENTION TEACHER Work Phone: Start: 07-08-2024 Echo tthrc r-t 2d w/wom-mode compl spec&colr d Oscar Bower AIR ANTISUBMARINE OFFICER - INTERVENTION TEACHER Work Phone: Start: 07-08-2024 Ecg routine ecg w/least 12 lds trcg only w/o i&r Oscar Bower AIR ANTISUBMARINE OFFICER - INTERVENTION TEACHER Work Phone: Start: 07-08-2024 OXYGEN THERAPY Oscar Bower AIR ANTISUBMARINE OFFICER - INTERVENTION TEACHER Work Phone: Start: 07-08-2024 Cardiac catheterization study Jero phan MD Work Phone: Start: 07-08-2024 Echo transthorc r-t 2d w/wo m-mode rec f-up/lmtd Jero Reyes MD Work Phone: Start: 07-08-2024 POCT ACT Jero Reyes MD Work Phone: Start: 07-07-2024 Blood typing serologic abo Tri Tan PRN - INTERVENTION TEACHER Work Phone: Start: 07-02-2024 ABO and Rh group [Type] in Blood by Confirmatory method Tri Newberry AIR ANTISUBMARINE OFFICER - INTERVENTION TEACHER Work Phone: Start: 07-02-2024 Antibody screen TRI NEWBERRY Comment on above: Performed By: #### [id number] ####Medical Di neri: ISRAEL TAN ([id number])[facility] BLOOD [facility] ([facility])[address] [place] [address] Start: 07-02-2024 Blood typing serologic abo Tri Tan PRN - INTERVENTION TEACHER Work Phone: Start: 07-02-2024 Comprehensive metabolic panel Tri pation AIR ANTISUBMARINE OFFICER - INTERVENTION TEACHER Work Phone: Start: 07-02-2024 Ct angiography chest w/contrast/noncontrast Oscar Bower AIR ANTISUBMARINE OFFICER - INTERVENTION TEACHER Work Phone: Start: 07-02-2024 Ecg routine ecg w/least 12 lds trcg only w/o i&r Jero Reyes MD Work Phone: Start: 05-14-2024 Ecg routine ecg w/least 12 lds trcg only w/o i&r Jero Reyes MD Work Phone: Start: 03-20-2024 Measurement of occult blood in stool specimen using immunoassay [facility] Start: 02-25-2024 Plain X-ray of shoulder [facility] Start: 02-21-2024 Bacteria identified in Blood by Culture [facility] Start: 02-19-2024 CT angiography of chest with contrast [facility] Start: 02-17-2024 Nucleic acid assay [facility] Start: 02-17-2024 Urine culture [facility] Start: 02-17-2024 Plain chest X-ray [facility] Start: 02-07-2024 Plain chest X-ray [facility] Start: 02-07-2024 Measurement of occult blood in stool specimen using immunoassay Start: 09-08-2022 Ultrasonography of abdomen [facility] Start: 09-07-2022 MRI of thoracic spine [facility] Start: 2022 Plain chest X-ray [facility] Start: 2022 Computed tomography of thoracic spine without contrast [facility] Start: 2022 CT of abdomen and pelvis without contrast [facility] Start: 2022 CT of lumbar spine [facility] Plan of Treatment Date Care Activity Detail Author Start: 07-09-2025 Creatinine measurement Creatinine Level [facility] Start: 07-09-2025 Potassium measurement Potassium Level [facility] Start: 07-08-2025 Echocardiography Echocardiogram [facility] Start: 07-02-2025 Creatinine measurement Creatinine Level [facility] Start: 07-02-2025 Potassium measurement Potassium Level [facility] Start: 03-18-2025 Microbial culture, routine Wound Culture [facility] Start: 03-18-2025 [facility] Start: 08-15-2024 End: 07-16-2026 Heart Transthoracic Transthoracic echocardiogram (TTE) complete with contrast, bubble, strain, and 3D PRN CV Echocardiography Routine Severe aortic stenosis Expected: 08/15/2024 (Approximate), Expires: 07/16/2026 [facility] Work Phone: Comment on above: Expected: 08/15/2024 (Approximate), Expi res: 07/16/2026 Start: 08-09-2024 End: 07-09-2026 US Heart Transthoracic Transthoracic echocardiogram (TTE) complete with contrast, bubble, strain, and 3D PRN CV Echocardiography Routine Aortic valve stenosis, etiology of cardiac valve disease unspecified Expected: 08/09/2024 (Approximate), Expires: 07/09/2026 [facility] Work Phone: Comment on above: Expected: 08/09/2024 (Approximate), Expi res: 07/09/2026 Start: 07-18-2024 End: 07-18-2024 Patient encounter procedure 07/18/2024 12:00 PM EDT Office Visit [facility] [address] [place] [address] Oscar Bower, AIR ANTISUBMARINE OFFICER - INTERVENTION TEACHER [address] [address] [facility] Start: 07-18-2024 End: 07-18-2024 Patient encounter procedure 07/18/2024 Office Visit [facility] [address] [place] [id number] Oscar Bower, AIR ANTISUBMARINE OFFICER - INTERVENTION TEACHER [address] [address] [facility] Start: 07-14-2024 COVID-19 Vaccine ( season) COVID-19 Vaccine ( season) [facility] Start: 07-14-2024 Influenza vaccination [facility] Start: 07-08-2024 End: 07-08-2024 Admission to same day surgery center 07/08/2024 12:45 PM EDT - 07/08/2024 2:30 PM EDT Surgery [facility] OR [address] [facility] [place] [id number] Jero Reyes MD [address] [address] TRANSCATHETER AORTIC VALVE REPLACEMENT, TRANSTHORACIC ECHOCARDIOGRAM [facility] Comment on above: TRANSCATHETER AORTIC VALVE REPLACEMENT, TRANSTHORACIC ECHOCARDIOGRAM Start: 07-08-2024 End: 07-08-2024 Anesthesia consultation 07/08/2024 12:45 PM EDT Anesthesia Event [facility] [address] [place] [address] Alfonso Kingsley, CHANDA [address] [place], [place] [id number] [facility] Start: 07-08-2024 End: 07-08-2024 Replace aortic valve perq femoral artry approach TRANSCATHETER AORTIC VALVE REPLACEMENT (TAVR) - OR Severe aortic stenosis 07/08/2024 12:45 PM EDT [facility] Operating [facility] Start: 07-08-2024 Subsequent hospital visit by physician 07/08/2024 12:45 PM EDT Hospital Encounter [facility] [address] [place] [phone] Jero Reyes MD [address] [address] Severe aortic stenosis [facility] Comment on above: Severe aortic stenosis Start: 05-14-2024 End: 05-14-2024 Patient encounter procedure [facility] Start: 03-28-2024 Prothrombin time [facility] Start: 03-25-2024 Prothrombin time [facility] Start: 03-22-2024 Blood chemistry [facility] Start: 03-21-2024 Prothrombin time [facility] Start: 03-18-2024 Prothrombin time [facility] Start: 03-15-2024 Blood chemistry [facility] Start: 03-14-2024 Prothrombin time [facility] Start: 03-11-2024 Development of care plan [facility] Start: 03-11-2024 Prothrombin time [facility] Start: 03-10-2024 Patient discharge [facility] Start: 03-07-2024 Referral to service [facility] Start: 03-04-2024 [facility] Start: 02-29-2024 [facility] Start: 02-27-2024 Consultation for treatment [facility] Start: 02-24-2024 Speech therapy management [facility] Start: 02-24-2024 Developing a treatment plan [facility] Start: 02-24-2024 Development of care plan [facility] Start: 02-23-2024 Speech therapy assessment [facility] Start: 02-23-2024 Following clinical pathway protocol [facility] Start: 02-23-2024 Wound care [facility] Start: 02-23-2024 Fluid restriction [facility] Start: 02-23-2024 Admission procedure [facility] Start: 02-23-2024 Measuring intake and output [facility] Start: 02-23-2024 Patient referral to dietitian [facility] Start: 02-23-2024 Referral to occupational therapist [facility] Start: 02-23-2024 Referral to service [facility] Start: 02-23-2024 Vital signs measurements [facility] Start: 02-23-2024 End: 02-23-2024 [facility] Start: 02-23-2024 Patient discharge [facility] Start: 02-23-2024 Patient referral to dietitian [facility] Start: 02-21-2024 Bacteria identified in Blood by Culture Blood Culture [facility] Start: 02-21-2024 Blood culture [facility] Start: 02-20-2024 Blood culture [facility] Start: 02-19-2024 Incentive spirometry [facility] Start: 02-19-2024 Physiotherapy of chest [facility] Start: 02-19-2024 End: 02-19-2024 Blood culture [facility] Start: 02-19-2024 Vital signs measurements [facility] Start: 02-19-2024 Referral to golf cart maker [facility] Start: 02-19-2024 Consultation [facility] Start: 02-19-2024 [facility] Start: 02-18-2024 Consultation [facility] Start: 02-18-2024 Prothrombin time [facility] Start: 02-18-2024 [facility] Start: 02-17-2024 [facility] Start: 02-17-2024 Following clinical pathway protocol [facility] Start: 02-17-2024 Application of elastic bandage [facility] Start: 02-17-2024 Assessment of risk of venous thromboembolism [facility] Start: 02-17-2024 Cardiac monitoring [facility] Start: 02-17-2024 Consultation for treatment [facility] Start: 02-17-2024 Contact precautions [facility] Start: 02-17-2024 Continuous positive airway pressure ventilation treatment [facility] Start: 02-17-2024 Fall prevention [facility] Start: 02-17-2024 Incentive spirometry [facility] Start: 02-17-2024 Inhalation therapy procedure [facility] Start: 02-17-2024 Insertion of catheter into peripheral vein [facility] Start: 02-17-2024 Introduction of urinary catheter [facility] Start: 02-17-2024 Measuring intake and output [facility] Start: 02-17-2024 Oxygen therapy [facility] Start: 02-17-2024 Providing care according to standard [facility] Start: 02-17-2024 Provision of activity privileges [facility] Start: 02-17-2024 Referral to occupational therapist [facility] Start: 02-17-2024 Referral to service [facility] Start: 02-17-2024 Wound care [facility] Start: 02-17-2024 [facility] Start: 02-17-2024 Verification routine [facility] Start: 02-17-2024 Admission procedure [facility] Start: 02-17-2024 Plain chest X-ray Chest 1 View (Portable) [facility] Start: 02-17-2024 XR Chest Single view [facility] Start: 02-17-2024 Patient referral to dietitian [facility] Start: 02-16-2024 Referral to service [facility] Start: 02-16-2024 Patient discharge [facility] Start: 02-15-2024 Removal of urinary catheter [facility] Start: 02-11-2024 [facility] Start: 02-08-2024 Referral to golf cart maker [facility] Start: 02-08-2024 Wound care [facility] Start: 02-08-2024 Inhalation therapy procedure [facility] Start: 02-07-2024 Following clinical pathway protocol [facility] Start: 02-07-2024 Assessment of risk of venous thromboembolism [facility] Start: 02-07-2024 Consultation for treatment [facility] Start: 02-07-2024 Elevation of affected extremity [facility] Start: 02-07-2024 Insertion of catheter into peripheral vein [facility] Start: 02-07-2024 Measuring intake and output [facility] Start: 02-07-2024 Notification of physician [facility] Start: 02-07-2024 Patient education [facility] Start: 02-07-2024 Patient referral to dietitian [facility] Start: 02-07-2024 Providing care according to standard [facility] Start: 02-07-2024 Provision of activity privileges [facility] Start: 02-07-2024 Referral to occupational therapist [facility] Start: 02-07-2024 Referral to service [facility] Start: 02-07-2024 [facility] Start: 02-07-2024 Verification routine [facility] Start: 02-07-2024 Admission procedure [facility] Start: 02-07-2024 Hospital admission, emergency, from emergency room, medical nature [facility] Start: 02-07-2024 Plain chest X-ray Chest 1 View (Portable) [facility] Start: 02-07-2024 XR Chest Single view [facility] Start: 02-07-2024 Consultation [facility] Start: 02-07-2024 Patient referral to dietitian [facility] Start: 01-23-2024 DTaP/Tdap/Td Vaccines (2 - Tdap) DTaP/Tdap/Td Vaccines (2 - Tdap) [facility] Start: 11-15-2023 Procedure [facility] Start: 11-13-2023 Medicare Advantage Annual Wellness Visit Medicare Advantage Annual Wellness Visit [facility] Start: 07-14-2023 COVID-19 Vaccine ( season) COVID-19 Vaccine ( season) [facility] Start: 09-09-2022 Prothrombin time [facility] Work Phone: Start: 09-08-2022 Wound care [facility] Work Phone: Start: 09-08-2022 Patient discharge [facility] Work Phone: Start: 09-08-2022 Inhalation therapy procedure [facility] Work Phone: Start: 09-07-2022 Consultation for pain [facility] Work Phone: Start: 09-07-2022 Referral to service [facility] Work Phone: Start: 09-07-2022 [facility] Work Phone: Start: 09-07-2022 Consultation for treatment [facility] Work Phone: Start: 2022 Following clinical pathway protocol [facility] Work Phone: Start: 2022 Assessment of risk of venous thromboembolism [facility] Work Phone: Start: 2022 Insertion of catheter into peripheral vein [facility] Work Phone: Start: 2022 Measuring intake and output [facility] Work Phone: Start: 2022 Patient education [facility] Work Phone: Start: 2022 Providing care according to standard [facility] Work Phone: Start: 2022 Provision of activity privileges [facility] Work Phone: Start: 2022 Referral to occupational therapist [facility] Work Phone: Start: 2022 Referral to service [facility] Work Phone: Start: 2022 [facility] Work Phone: Start: 2022 MRI of thoracic spine Spine Thoracic (Routine) [facility] Work Phone: Start: 2022 Verification routine [facility] Work Phone: Start: 2022 Admission procedure [facility] Work Phone: Start: 2022 Patient referral to dietitian [facility] Work Phone: Start: 2009 RSV Immunization aged 60 or older (1 - 1-dose 60+ series) RSV Immunization aged 60 or older (1 - 1-dose 60+ series) [facility] Start: 1999 Zoster Vaccines (1 of 2) Zoster Vaccines (1 of 2) [facility] Start: 1967 Diabetes mellitus screening Diabetes Screening [facility] Start: 1967 Hepatitis C screening Hepatitis C Screening [facility] Start: 1961 Depression Screening Depression Screening [facility] Start: 1955 Pneumococcal Vaccine: 65+ Years (1 of 2 - PCV) Pneumococcal Vaccine: 65+ Years (1 of 2 - PCV) [facility] Start: 1949 Creatinine measurement Creatinine Level [facility] Start: 1949 Echocardiography Echocardiogram [facility] Start: 1949 Lipid panel Lipid Panel [facility] Start: 1949 Potassium measurement Potassium Level [facility] Start: 1949 Screening for malignant neoplasm of colon [facility] Alanine aminotransfe rase [Enzymatic activity/volume] in Serum or Plasma [facility] Albumin [Mass/volume ] in Serum or Plasma [facility] Alkaline phosphatase [Enzymatic activity/volume] in Serum or Plasma [facility] Anion gap measurement [facility] Aspartate aminotransferase [Enzymatic activity/volume] in Serum or Plasma [facility] Bilirubin, total measurement [facility] BUN/Creatinine ratio [facility] Calcium [Mass/volume ] in Serum or Plasma [facility] Carbon dioxide, tota l [Moles/volume] in Serum or Plasma [facility] Cardiac catheterizat ion study Cardiac procedure CV Cardiac Cath Routine Severe aortic stenosis 07/08/2024 2:50 PM EDT [facility] Work Phone: Chloride [Moles/volu me] in Serum or Plasma [facility] Creatinine [Moles/vo lume] in Serum or Plasma [facility] ECG 12 lead - CLINIC PERFORMED ECG 12 lead - CLINIC PERFORMED CV ECG Routine Essential hypertension 05/14/2024 3:08 PM EDT [facility] Work Phone: ECG 12 lead - CLINIC PERFORMED ECG 12 lead - CLINIC PERFORMED CV ECG Routine Severe aortic stenosis 07/02/2024 10:11 AM EDT [facility] Work Phone: ECG 12 lead - CLINIC PERFORMED ECG 12 lead - CLINIC PERFORMED CV ECG Routine Coronary artery disease involving [place] coronary artery of [place] heart without angina pectoris 07/16/2024 1:51 PM EDT [facility] Work Phone: Erythrocyte mean corpuscular volume determination [facility] Glucose [Mass/volume ] in Serum or Plasma [facility] Hematocrit [Volume Fraction] of Blood [facility] Hemoglobin [Mass/vol ume] in Blood [facility] INR in Blood by Coagulation assay [facility] Leukocytes [#/volume ] in Blood [facility] Mean corpuscular hemoglobin concentration determination [facility] Mean corpuscular hemoglobin determination [facility] Measurement of renal function [facility] Neutrophil count [facility] Neutrophil percent differential count [facility] Patient referral [facility] Work Phone: Platelets [#/volume] in Blood [facility] Potassium [Moles/vol ume] in Serum or Plasma [facility] Red blood cell count [facility] Red cell distributio n width determination [facility] Sodium [Moles/volume ] in Serum or Plasma [facility] Total protein measurement [facility] Urea nitrogen [Mass/volume] in Serum or Plasma [facility] End: 07-02-2024 XR Chest 2 Views [employer] Work Phone: Comment on above: Once for 1 Occurrences starting 07/02/20 until 07/02/2024 Payers Date Payer Category Payer Self-pay 2022 Medicare [employer] MEDICARE ADVANTAGE [employer] MEDICARE [id number] 2022-Present [address] [address] [place] [address] Medicare HMO [id number] 2022 Private Health Insurance [id number] 1999 Unknown ERIC DAIGLE ACCE SS PPO [id number] 1999-Present [phone] [address] [place] [address] PPO [id number] Unknown [id number] Unknown VA AUTH REQUIR ED SEE NOTE [id number] Unknown [id number] 2.840.1.950306.3.579. 2.462 Unknown [id number] 2.16.840.1.626134.3.579. 2.462 Unknown [id number] 2.16840.1.357530.3.579. 2.462 Unknown [id number] 2.840.1.214835.3.579. 2.462 Unknown [id number] 2.840.1.937946.3.579. 2.462 Unknown [id number] 2.840.1.770599.3.579. 2.462 Unknown [id number] 2.840.1.307915.3.579. 2.462 Unknown [id number] 2.840.1.976615.3.579. 2.462 Unknown [id number] 2.840.1.659424.3.579. 2.462 Unknown [id number] 2.840.1.017298.3.579. 2.462 Unknown [id number] 2.840.1.658676.3.579. 2.462 Unknown [id number] 2.840.1.122003.3.579. 2.462 Unknown [id number] 2.840.1.207427.3.579. 2.462 Unknown [id number] 2.840.1.060032.3.579. 2.462 Unknown [id number] 2.840.1.469220.3.579. 2.462 Unknown [id number] 2.840.1.033135.3.579. 2.462 Unknown [id number] 2.840.1.059356.3.579. 2.462 Unknown [id number] 2.16.840.1.709168.3.579. 2.462 Unknown [id number] 2.16.840.1.965950.3.579. 2.462 Unknown [id number] 2.16.840.1.991058.3.579. 2.462 Unknown [id number] 2.16.840.1.556436.3.579. 2.462 Unknown [id number] 2.16.840.1.144885.3.579. 2.462 Unknown [id number] 2.16.840.1.847153.3.579. 2.462 Unknown [id number] 2.16.840.1.652788.3.579. 2.462 Unknown [id number] 2.16.840.1.678702.3.579. 2.462 Unknown [id number] 2.16.840.1.655491.3.579. 2.462 Unknown [id number] 2.16.840.1.146299.3.579. 2.462 Unknown [id number] 2.16.840.1.602301.3.579. 2.462 Unknown [id number] 2.16.840.1.273836.3.579. 2.462 Social History Date Type Detail Facility Start: 2022 End: 02-23-2024 Tobacco smoking status MEIS Tobacco smoking consumption unknown [facility] Start: 1950 Sex Assigned At Not on file [facility] Start: 1950 Sex Assigned At Male [facility] Start: 10-20-2020 End: 07-16-2024 History of Social function [facility] Start: 10-20-2020 End: 07-16-2024 Area Deprivation Index [facility] National Score (1-10 0), lower number is lower risk Not on file [facility] Start: 04-16-2024 End: 11-14-2024 Tobacco smoking status NHIS Ex-smoker [facility] History of tobacco use Current smoker [facility] History of tobacco use Cigarette Smoker S [facility] Start: 07-02-2024 Tobacco use and exposure Smoke less tobacco non-user [facility] [employer] Start: 02-10-2025 Sex Male (finding) [facility] Medical Equipment Procedure Code Equipment Code Equipment Origin al Text Equipment Identifier Dates Valve Ileana 3 Comm 29mm - [id number] - [id number] Start: 07-08-2024 Comment on above: Description: [id number] Device Perclose Prostyle - [id number] Start: 07-08-2024 Device Perclose Prostyle - [id number] Start: 07-08-2024 Goals Date Patient Goal Desired Activity /State Functional Status Date Assessment Result Facility 03-10-2024 Functional status Ambulates [place] Work Phone: 02-23-2024 Functional status Chair [place] Work Phone: 02-16-2024 Functional status Ambulates;Chair [facility] Work Phone: 09-08-2022 Functional status Chair;Assist with Urina l [facility] Work Phone: 09-08-2022 Functional status Rolling Walker [facility] Work Phone: Mental Status Date Assessment Result Facility 03-10-2024 Cognitive function Voice/Name;Touch/Shaki ng [facility] Work Phone: 03-07-2024 Cognitive function Appropriate;Cooperativ e [facility] Work Phone: 02-23-2024 Cognitive function Voice/Name [facility] Work Phone: 02-17-2024 Cognitive function Level Of Cons ciousness Awake;Alert;Appropriate;Follow s Commands [facility] Work Phone: 02-16-2024 Cognitive function Voice/Name [facility] Work Phone: 09-08-2022 Cognitive function Voice/Name [facility] Work Phone: 2022 Cognitive function Level Of Cons ciousness Awake;Alert;Appropriate;Follow s Commands [facility] Work Phone: Clinical Notes 06-23-2022 to 05-28-2025 Note Date & Type Note Facility 05-28-2025 Radiology Diagnostic study note [facility] [address] [place] [address] Lumbar Spine 2 or 3 Views MR#: [id number] Acct: [id number] Name: ANDER MONTEIRO Rep #: [id number] : 1950 M 74 From: Julisa Desir MD PCP: Dr. Freedom Sutton MD Status: REG C Study:Lumbar Spine 2 or 3 Views Date of Exam: 05/27/25 Exam# [id number] Ordering Dr: Britney Musa MD EXAM: XR Lumbosacral Spine, 2 or 3 Views CLINICAL INDICATION: SPONDYLOSIS WITHOUT MYELOPATHY OR RADICULOPATHY, LUMBOSACRAL PEGGY TECHNIQUE: Frontal and lateral views of the lumbar spine and sacrum. COMPARISON: No relevant prior studies available. FINDINGS: VERTEBRAE: Moderate endplate degenerative changes and disc degeneration and visualized spine. Moderate facet arthropathy of L3-S1. Moderate to severe anterior wedging deformity of T12 and T11 vertebral bodies. Grade 1 anterior spondylolisthesis of L5 over S1. Further evaluation MRI is recommended. SACRUM/COCCYX: Unremarkable as visualized. No acute fracture. DISC SPACES: No acute findings. No significant narrowing. SOFT TISSUES: Unremarkable. VASCULATURE: Scattered calcified atherosclerotic disease of aorta. RAD/Lumbar Spine 2 or 3 Views IMPRESSION: 1. Grade 1 anterior spondylolisthesis of L5 over S1. Further evaluation MRI isrecommended. 2. Degenerative changes as above. Reading Location: [facility] CC: Dr. Angel Musa MD; Dr. 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 Freedom Sutton MD Status:REG R CR Location: History of Present Illness Date of Service: 05/15/25 Chief Complaint: Venous stasis ulceration left lower extremity History of Wound: This is a 74-year-old male who presents to the wound care center for continued aid in healing of a venous stasis ulceration to the lateralaspect of the left lower extremity. Ulceration is secondary to chronic venous insufficiency and lower extremity edema. He had been unable to wear his compression stockings due to significant edema and previous heart failure. 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 This did lead to improvement in lower extremity edema however still does get swelling secondary to his chronic venous insufficiency which did lead to ulceration to the lateral aspect of the left leg. He had been undergoing local wound care in office over the course of 6 weeks with applications of Renuka however ulceration has failed to improve with this and compression stocking. Hecontinues to change dressing daily with Renuka and does have visiting nursing toassist in dressing changes. States that he continues to wear his compression stocking and tries to elevate when possible. He does assist in care for his so elevation at all times of rest poses difficulty. Denies trauma to the leg. Denies N/V/F/chills/SOB. Denies further complaints. Subjective Subjective This is a 74-year-old male who presents to the wound care center for continued care of bilateral lower extremity venous stasis ulcerations. He continues his 80mg furosemide daily and notices that this continues to control edema body wide. He is attempting to continue to elevate legs is much as possible. Reports remains in extended care at [place] where she still continues to fight. He continues to visit her daily. Accompanied by son today who notes wounds have healed. He has transitioned back to compression stockings and is doing well. He denies constitutional symptoms. Denies further complaints today. Objective Data Objective Data Vital Signs: Vital Signs Temp Pulse Resp BP O2 Del Method 96.7 F L 70 16 106/50 L Room Air 05/15/25 08:02 05/15/25 08:02 05/15/25 08:02 05/15/25 08:02 05/15/25 08:02 Oxygen Delivery Method Room Air Physical Exam Const alert, oriented x3 and no apparent distress General Appearance: cooperative HEENT normocephalic Eyes General Eye: normal appearance of both eyes Neck General: normal visual inspection Lymph Lymphatic: no lymphadenopathy noted and no lymphedema noted Resp normal respiratory effort Cardio regular rate and regular rhythm Extremity no calf tenderness Extremity Narrative: Bilateral lower extremity: Vascular: DP and PT pulses weakly palpable. CFT is less than 5 seconds to digits. Normal temperature gradient. Hair growth is absent to digits. Neurologic: Gross sensation intact. There is decreased protective sensation consistent with diabetic peripheral polyneuropathy. Musculoskeletal: Muscle strength 5 of 5 age-appropriate. There is decreased range of motion of the ankle joint dorsiflexion with the knee extended without pain or crepitus bilateral. There is decreased range of motion of the first metatarsophalangeal joint without pain or crepitus bilateral. No pain to palpation of calf bilateral. Dermatologic: Bilateral lower extremities demonstrate lipodermatosclerosis with hyperpigmentation to the pretibial region. Previous scaling/eczematous skin improved following compression of Unna boot therapy. Full-thickness ulceration to the right lower extremity remains healed. There were 2 full-thickness ulcerations to the left lower extremity 1 medial and 1 lateral. Medial ulceration remains healed. Lateral ulceration now healed. No signs of infection. Skin no rashes or lesions noted General Skin Exam: venous stasis and dermatitis Neuro moves all extremities Debridement Note Debridement Note No debridement was completed: No debridement was completed today Post-Debridement Measurements and Additional Note: Post-Debridement Measurements/Treatment - Nurse 1 - General Ulcer Assessment Start: 05/15/25 08:02 Freq: Status: Active Protocol: LIZZY Activity Type Activity Date Activity User E-sign Co-sign Detail Recorded Client Recorded Date Recorded By Document 05/15/25 08:02 KW [id number] 05/15/25 08:06 KW 05/15/25 08:02 - Today's Visit Information Type of service Follow-up Visit (Physician/INTERVENTION TEACHER ) Arrival Mode Ambulatory, Walker Accompanied by son Patient Identification Verified (Name & Yes ) Vital Signs Temperature (97.8 F-99.1 F) 96.7 F L Temperature Source Temporal Pulse Rate (60-100) 70 Pulse Location Monitor Respiratory Rate (12-18) 16 Respiratory rate source Observation Oxygen Delivery Method Room Air Blood Pressure (90/60-120/80) 106/50 L Blood Pressure Mean (mm Hg) 68 Source Monitor Position Semi-Fowlers Blood Pressure Location Right Arm History Since Last Visit- (Skip if this is Patient's initial visit) Have you changed medications since your No last visit? Any new allergies or adverse reactions No Had a fall/change in ADL's that may No increase risk of falls Signs or symptoms of abuse and/or No neglect since last visit Have you been in the hospital since your No last visit? Has dressing in place as prescribed No Has compression in place as prescribed Yes Has offloadiing in place as prescribed N/A Experienced any changes in pain level or No management Left Footwear Regular Shoe Right Footwear Regular Shoe Pain Scale: 0-10 Numeric Is Patient Pain Free? Yes WC - Nurse 1 - General Ulcer Measurement Start: 05/15/25 08:02 Freq: Status: Active Protocol: Activity Type Activity Date Activity User E-sign Co-sign Detail Recorded Client Recorded Date Recorded By Document 05/15/25 08:02 [id number] 05/15/25 08:06 05/15/25 08:02 Wound Center Nurse 1 #3 LLE Lat Cluster -Current Size (cm) - Length 0 -Current Size (cm) - Width 0 -Current Size (cm) - Depth 0 -Total Square Cm 0 -Date of Last Picture (Recall this 05/15/25 field) -Exudate Amt None Present -Texture (Lyndsey-wound Skin Appearance) Assessed -Moisture (Lyndsey-wound Skin Appearance) Assessed,Dry/ Scaly -Color (Lyndsey-wound Skin Appearance) Assessed -Temperature (Lyndsey-wound Skin No Abnormality Appearance) (Pt Warm) -Tenderness on Palpation (Lyndsey-wound No Skin Appearance) -Ulcer Cleansing Soap and Water -Foul Odor after Cleansing No WC - Nurse 2 - General Ulcer CM Notes Start: 05/15/25 08:02 Freq: Status: Active Protocol: Activity Type Activity Date Activity User E-sign Co-sign Detail Recorded Client Recorded Date Recorded By Document 05/15/25 08:43 [facility] [id number] 05/15/25 08:49 [facility] 05/15/25 08:43 Wound Center Nurse 2 -Time 08:43 -Procedure Performed No -Post Debridement (cm) - Length 0 -Post Debridement (cm) - Width 0 -Post Debridement (cm) - Depth 0 -Total Square (Post) (cm) 0 -Area of Debridement (cm) - Length 0 -Area of Debridement (cm) - Width 0 -Total Square (Area) (cm) 0 -Tunneling No -Undermining/Tunneling No -Circular Undermining No -Wound/Ulcer Outcome Healed- Epithelialized -Bleeding Controlled with NA Pain Scale: 0-10 Numeric Is Patient Pain Free? 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 Pain Scale: 0-10 Numeric Is Patient Pain Free? Yes WC - Visit Discharge Discharge Condition Stable Ambulatory Status Ambulatory, Walker Transportation Private Auto Accompanied by SON Notes: HEALED . OPEN TO AIR Assessment/Plan Assessment/Plan (1) Non-pressure chronic ulcer of left calf with fat layer exposed: CODE(S): L97.222 - Non-pressure chronic ulcer of left calf with fat layer exposed (2) Lipodermatosclerosis of both lower extremities: CODE(S): M79.3 - Panniculitis, unspecified (3) Venous insufficiency (chronic) (peripheral): CODE(S): I87.2 - Venous insufficiency (chronic) (peripheral) (4) Diabetes mellitus with diabetic polyneuropathy: CODE(S): E11.42 - Type 2 diabetes mellitus with diabetic polyneuropathy QUALIFIERS: Diabetes mellitus type: type 2 (5) Diabetes mellitus with ulcer of calf: CODE(S): E11.622 - Type 2 diabetes mellitus with other skin ulcer; L97.209- Non-pressure chronic ulcer of unspecified calf with unspecified severity (6) Bilateral lower extremity edema: CODE(S): R60.0 - Localized edema PLAN: Plan Patient seen and evaluated Predebridement ulceration measurement: Right lower extremity healed Left medial lower extremity healed Left lateral lower extremity healed Ulceration did not undergo debridement as noted in the clinical panel above. Postdebridement measurement: Left medial lower extremity healed; left lateral lower extremity healed today. Compression stocking to bilateral lower extremity. All ulcerations have healed today. It has been discussed with the patient that he is to continue to sleep on flat mattress at night with leg elevation as much as possible at night and throughoutthe day to be heart level or higher. He has been advised against prolonged sitting. 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 He has finished prescription. He has been advised to not pick at any dry skin or excessively scrub while in the shower to prevent opening of ulcerations as his skin is friable. Skin has improved via use of Unna boot compression but with wound now healed we will continue traditional compression stocking. The following work up and care recommendations were made: Dressing: Compression stocking bilateral lower extremity Wash: Soap and water Tissue growth optimization: None Offload: Compression stocking Vascular: Vascular status not impeding healing, chronic venous stasis and lipodermatosclerosis do complicate healing. Edema: Compression stocking and elevation of lower extremities at all times of rest. Infection: No signs of infection currently. Will finish oral linezolid and continue with intranasal mupirocin. Pain: May take ncpt-ken-yrpeogj Tylenol Extra Strength for any discomfort. Currently no pain secondary to diabetic peripheral polyneuropathy Host factors: DM type II with peripheral polyneuropathy, lipodermatosclerosis/chronic venous stasis to complicate healing. With all wounds healed today he is being discharged from the wound care center I answered all the patient's questions. To return to the wound healing center as needed or call sooner if the patient has any questions or concerns. 05/15/25926 <Electronically signed by Shady Ogden DPM> Cosigner Signature (if applicable): CC: ~ Signed [facility] Work Phone: 1(806) 724-942407-03-2025 Progress note [facility] [address] [place] [address] Progress Note - Wound Care 05/15/25915 MR#: [id number] Acct: [id number] Name: ANDER MONTEIRO Rep #:[id number] : 1950 74 From: Shady hernandez DPM PCP: Dr. Freedom Sutton MD Status:REG R CR Location: History of Present Illness Date of Service: 05/15/25 Chief Complaint: Venous stasis ulceration left lower extremity History of Wound: This is a 74-year-old male who presents to the wound care center for continued aid in healing of a venous stasis ulceration to the lateralaspect of the left lower extremity. Ulceration is secondary to chronic venous insufficiency and lower extremity edema. He had been unable to wear his compression stockings due to significant edema and previous heart failure. 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 This did lead to improvement in lower extremity edema however still does get swelling secondary to his chronic venous insufficiency which did lead to ulceration to the lateral aspect of the left leg. He had been undergoing local woundcare in office over the course of 6 weeks with applications of Renuka however ulceration has failedto improve with this and compression stocking. Hecontinues to change dressing daily with Renuka anddoes have visiting nursing toassist in dressing changes. States that he continues to wear his compression stocking and tries to elevate when possible. He does assist in care for his so elevationat all times of rest poses difficulty. Denies trauma to the leg. Denies N/V/F/chills/SOB. Denies further complaints. Subjective Subjective This is a 74-year-old male who presents to the wound care center for continued care of bilateral lower extremity venous stasis ulcerations. He continues his 80mg furosemide daily and notices that this continues to control edema body wide. He is attempting to continue to elevate legs is much as possible. Reports remains in extended care at [place] where she still continues to fight. He continues to visit her daily. Accompanied by son today who notes wounds have healed. He has transitioned back to compression stockings and is doing well. He denies constitutional symptoms. Denies further complaints today. Objective Data Objective Data Vital Signs: Vital Signs Temp Pulse Resp BP O2 Del Method 96.7 F L 70 16 106/50 L Room Air 05/15/25 08:02 05/15/25 08:02 05/15/25 08:02 05/15/25 08:02 05/15/25 08:02 Oxygen Delivery Method Room Air Physical Exam Const alert, oriented x3 and no apparent distress General Appearance: cooperative HEENT normocephalic Eyes General Eye: normal appearance of both eyes Neck General: normal visual inspection Lymph Lymphatic: no lymphadenopathy noted and no lymphedema noted Resp normal respiratory effort Cardio regular rate and regular rhythm Extremity no calf tenderness Extremity Narrative: Bilateral lower extremity: Vascular: DP and PT pulses weakly palpable. CFT is less than 5 seconds to digits. Normal temperature gradient. Hair growth is absent to digits. Neurologic: Gross sensation intact. There is decreased protective sensation consistent with diabetic peripheral polyneuropathy. Musculoskeletal: Muscle strength 5 of 5 age-appropriate. There is decreased range of motion of the ankle joint dorsiflexion with the knee extended without pain or crepitus bilateral. There is decreased range of motion of the first metatarsophalangeal joint without pain or crepitus bilateral. No pain to palpation of calf bilateral. Dermatologic: Bilateral lower extremities demonstrate lipodermatosclerosis with hyperpigmentation to the pretibial region. Previous scaling/eczematous skin improved following compression of Unna boottherapy. Full-thickness ulceration to the right lower extremity remains healed. There were 2 full-thickness ulcerations to the left lower extremity 1 medial and 1 lateral. Medial ulceration remains healed. Lateral ulceration now healed. No signs of infection. Skin no rashes or lesions noted General Skin Exam: venous stasis and dermatitis Neuro moves all extremities Debridement Note Debridement Note No debridement was completed: No debridement was completed today Post-Debridement Measurements and Additional Note: Post-Debridement Measurements/Treatment - Nurse 1 - General Ulcer Assessment Start: 05/15/25 08:02 Freq: Status: Active Protocol: .LOWEXT Activity Type Activity Date Activity User E-sign Co-sign Detail Recorded Client Recorded Date Recorded By Document 05/15/25 08:02 [id number] 05/15/25 08:06 KW 05/15/25 08:02 - Today's Visit Information Type of service Follow-up Visit (Physician/INTERVENTION TEACHER ) Arrival Mode Ambulatory, Walker Accompanied by son Patient Identification Verified (Name & Yes ) Vital Signs Temperature (97.8 F-99.1 F) 96.7 F L Temperature Source Temporal Pulse Rate (60-100) 70 Pulse Location Monitor Respiratory Rate (12-18) 16 Respiratory rate source Observation Oxygen Delivery Method Room Air Blood Pressure (90/60-120/80) 106/50 L Blood Pressure Mean (mm Hg) 68 Source Monitor Position Semi-Fowlers Blood Pressure Location Right Arm History Since Last Visit- (Skip if this is Patient's initial visit) Have you changed medications since your No last visit? Any new allergies or adverse reactions No Had a fall/change in ADL's that may No increase risk of falls Signs or symptoms of abuse and/or No neglect since last visit Have you been in the hospital since your No last visit? Has dressing in place as prescribed No Has compression in place as prescribed Yes Has offloadiing in place as prescribed N/A Experienced any changes in pain level or No management Left Footwear Regular Shoe Right Footwear Regular Shoe Pain Scale: 0-10 Numeric Is Patient Pain Free? Yes WC - Nurse 1 - General Ulcer Measurement Start: 05/15/25 08:02 Freq: Status: Active Protocol: Activity Type Activity Date Activity User E-sign Co-sign Detail Recorded Client Recorded Date Recorded By Document 05/15/25 08:02 [id number] 05/15/25 08:06 05/15/25 08:02 Wound Center Nurse 1 #3 LLE Lat Cluster -Current Size (cm) - Length 0 -Current Size (cm) - Width 0 -Current Size (cm) - Depth 0 -Total Square Cm 0 -Date of Last Picture (Recall this 05/15/25 field) -Exudate Amt None Present -Texture (Lyndsey-wound Skin Appearance) Assessed -Moisture (Lyndsey-wound Skin Appearance) Assessed,Dry/ Scaly -Color (Lyndsey-wound Skin Appearance) Assessed -Temperature (Lyndsey-wound Skin No Abnormality Appearance) (Pt Warm) -Tenderness on Palpation (Lyndsey-wound No Skin Appearance) -Ulcer Cleansing Soap and Water -Foul Odor after Cleansing No WC - Nurse 2 - General Ulcer CM Notes Start: 05/15/25 08:02 Freq: Status: Active Protocol: Activity Type Activity Date Activity User E-sign Co-sign Detail Recorded Client Recorded Date Recorded By Document 05/15/25 08:43 [facility] [id number] 05/15/25 08:49 [facility] 05/15/25 08:43 Wound Center Nurse 2 -Time 08:43 -Procedure Performed No -Post Debridement (cm) - Length 0 -Post Debridement (cm) - Width 0 -Post Debridement (cm) - Depth 0 -Total Square (Post) (cm) 0 -Area of Debridement (cm) - Length 0 -Area of Debridement (cm) - Width 0 -Total Square (Area) (cm) 0 -Tunneling No -Undermining/Tunneling No -Circular Undermining No -Wound/Ulcer Outcome Healed- Epithelialized -Bleeding Controlled with NA Pain Scale: 0-10 Numeric Is Patient Pain Free? Yes - Nurse 3 - General Ulcer D/C NN Start: 05/15/25 08:02 Freq: Status: Active Protocol: Activity Type Activity Date Activity User E-sign Co-sign Detail Recorded Client Recorded Date Recorded By Document 05/15/25 09:00 [facility] [id number] 05/15/25 09:00 [facility] 05/15/25 09:00 Wound Care Center Nurse 3 #3 LLE Lat Cluster -Wound Comment(s) HEALED, VANGIE. Pain Scale: 0-10 Numeric Is Patient Pain Free? Yes WC - Visit Discharge Discharge Condition Stable Ambulatory Status Ambulatory, Walker Transportation Private Auto Accompanied by SON Notes: HEALED . OPEN TO AIR Assessment/Plan Assessment/Plan (1) Non-pressure chronic ulcer of left calf with fat layer exposed: CODE(S): L97.222 - Non-pressure chronic ulcer of left calf with fat layer exposed (2) Lipodermatosclerosis of both lower extremities: CODE(S): M79.3 - Panniculitis, unspecified (3) Venous insufficiency (chronic) (peripheral): CODE(S): I87.2 - Venous insufficiency (chronic) (peripheral) (4) Diabetes mellitus with diabetic polyneuropathy: CODE(S): E11.42 - Type 2 diabetes mellitus with diabetic polyneuropathy QUALIFIERS: Diabetes mellitus type: type 2 (5) Diabetes mellitus with ulcer of calf: CODE(S): E11.622 - Type 2 diabetes mellitus with other skin ulcer; L97.209- Non- pressure chronic ulcer of unspecified calf with unspecified severity (6) Bilateral lower extremity edema: CODE(S): R60.0 - Localized edema PLAN: Plan Patient seen and evaluated Predebridement ulceration measurement: Right lower extremity healed Left medial lower extremity healed Left lateral lower extremity healed Ulceration did not undergo debridement as noted in the clinical panel above. Postdebridement measurement: Left medial lower extremity healed; left lateral lower extremity healed today. Compression stocking to bilateral lower extremity. All ulcerations have healed today. It has been discussed with the patient that he is to continue to sleep on flat mattress at night with leg elevation as much as possible at night and throughoutthe day to be heart level or higher. He has been advised against prolonged sitting. 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 He has finished prescription. He has been advised to not pick at any dry skin or excessively scrub while in the shower to preventopening of ulcerations as his skin is friable. Skin has improved via use of Unna boot compression but with wound now healed we will continue traditional compression stocking. The following work up and care recommendations were made: Dressing: Compression stocking bilateral lower extremity Wash: Soap and water Tissue growth optimization: None Offload: Compression stocking Vascular: Vascular status not impeding healing, chronic venous stasis and lipodermatosclerosis do complicate healing. Edema: Compression stocking and elevation of lower extremities at all times of rest. Infection: No signs of infection currently. Will finish oral linezolid and continue with intranasalmupirocin. Pain: May take [id number] Tylenol Extra Strength for any discomfort. Currently no pain secondary to diabetic peripheral polyneuropathy Host factors: DM type II with peripheral polyneuropathy, lipodermatosclerosis/chronic venous stasisto complicate healing. With all wounds healed today he is being discharged from the wound care center I answered all the patient's questions. To return to the wound healing center as needed or call sooner if the patient has any questions or concerns. 05/15/25926 Cosigner Signature (if applicable): CC: ~ Signed [facility]06-26-2025 Progress note Author Shady Ogden [facility] Note Date/Time May 08, 2025 9:35 am [facility] [address] [place] [address] Progress Note - Wound Care 05/08/25930 MR#: [id number] Acct: [id number] Name: ANDER MONTEIRO Rep #:[id number] : 1950 74 From: Shady hernandez DPM PCP: Dr. Freedom Sutton MD Status:REG R CR Location: History of Present Illness Date of Service: 05/08/25 Chief Complaint: Venous stasis ulceration left lower extremity History of Wound: This is a 74-year-old male who presents to the wound care center for continued aid in healing of a venous stasis ulceration to the lateralaspect of the left lower extremity. Ulceration is secondary to chronic venous insufficiency and lower extremity edema. He had been unable to wear his compression stockings due to significant edema and previous heart failure. 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 This did lead to improvement in lower extremity edema however still does get swelling secondary to his chronic venous insufficiency which did lead to ulceration to the lateral aspect of the left leg. He had been undergoing local wound care in office over the course of 6 weeks with applications of Renuka however ulceration has failed to improve with this and compression stocking. Hecontinues to change dressing daily with Renuka and does have visiting nursing toassist in dressing changes. States that he continues to wear his compression stocking and tries to elevate when possible. He does assist in care for his so elevation at all times of rest poses difficulty. Denies trauma to the leg. Denies N/V/F/chills/SOB. Denies further complaints. Subjective Subjective This is a 74-year-old male who presents to the wound care center for continued care of bilateral lower extremity venous stasis ulcerations. He continues Unna boot compression and is tolerating this well. He continues his 80 mg furosemidedaily and notices that this continues to control edema body wide. He is attempting to continue to elevate legs is much as possible. Reports remainsin extended care at [place] where she still continues to fight. He continues tovisit her daily. Accompanied by daughter in law who notes wounds continue improving with wounds nearly healed. He does also enjoy time riding an electric tricycle around his property. He denies constitutional symptoms. Denies furthercomplaints today. Objective Data Objective Data Vital Signs: Vital Signs Temp Pulse Resp BP O2 Del Method 97.0 F L 75 18 116/68 Room Air 05/08/25 08:06 05/08/25 08:06 05/08/25 08:06 05/08/25 08:06 05/08/25 08:06 Oxygen Delivery Method Room Air Weight: 105.994 kg Body Mass Index (BMI) 35.5 Physical Exam Const alert, oriented x3 and no apparent distress General Appearance: cooperative HEENT normocephalic Eyes General Eye: normal appearance of both eyes Neck General: normal visual inspection Lymph Lymphatic: no lymphadenopathy noted and no lymphedema noted Resp normal respiratory effort Cardio regular rate and regular rhythm Extremity no calf tenderness Extremity Narrative: Bilateral lower extremity: Vascular: DP and PT pulses weakly palpable. CFT is less than 5 seconds to digits. Normal temperature gradient. Hair growth is absent to digits. Neurologic: Gross sensation intact. There is decreased protective sensation consistent with diabetic peripheral polyneuropathy. Musculoskeletal: Muscle strength 5 of 5 age-appropriate. There is decreased range of motion of the ankle joint dorsiflexion with the knee extended without pain or crepitus bilateral. There is decreased range of motion of the first metatarsophalangeal joint without pain or crepitus bilateral. No pain to palpation of calf bilateral. Dermatologic: Bilateral lower extremities demonstrate lipodermatosclerosis with hyperpigmentation to the pretibial region. Previous scaling/eczematous skin improved following compression of Unna boot therapy. Full-thickness ulceration to the right lower extremity remains healed. There are 2 full-thickness ulcerations to the left lower extremity 1 medial and 1 lateral. Medial ulceration remains healed. Lateral ulceration demonstrate superficial stable eschar today. No signs of infection. Skin no rashes or lesions noted General Skin Exam: venous stasis and dermatitis Neuro moves all extremities Debridement Note Debridement Note No debridement was completed: No debridement was completed today Post-Debridement Measurements and Additional Note: Post-Debridement Measurements/Treatment CLAUDETTE - Nurse 1 - General Ulcer Assessment Start: 04/14/25 11:01 Freq: Status: Active Protocol: LIZZY Activity Type Activity Date Activity User E-sign Co-sign Detail Recorded Client Recorded Date Recorded By Document 04/14/25 11:01 [id number] 04/14/25 11:02 Document 04/17/25 11:32 KW [id number] 04/17/25 11:45 KW Document 04/21/25 08:12 KW [id number] 04/21/25 08:14 KW Document 04/24/25 09:29 DL [id number] 04/24/25 09:45 DL Document 04/28/25 11:21 KW [id number] 04/28/25 11:23 KW Document 05/01/25 11:27 DL [id number] 05/01/25 11:41 DL Document 05/05/25 13:03 DL [id number] 05/05/25 13:21 DL Document 05/08/25 08:06 KW [id number] 05/08/25 08:15 KW 04/14/25 04/17/25 04/21/25 11:01 11:32 08:12 WC - Today's Visit Information Type of service Nurse-only Follow-up Visit Nurse-only Visit (Physician/INTERVENTION TEACHER Visit ) Arrival Mode Ambulatory, Ambulatory, Ambulatory, Walker Walker Walker Transfer Assistance Accompanied by DIL daughter in law Patient Identification Verified (Name & Yes Yes Yes ) Patient Requires Transmission-Based No Precautions Height and Weight Body Mass Index (BMI) 35.5 35.5 35.5 BMI Classification Obese Obese Obese Vital Signs Temperature (97.8 F-99.1 F) 98.3 F 98.2 F 97.8 F Temperature Source Temporal Temporal Temporal Pulse Rate (60-100) 70 67 66 Pulse Location Monitor Monitor Monitor Respiratory Rate (12-18) 16 18 18 Respiratory rate source Observation Observation Observation Oxygen Delivery Method Room Air Room Air Blood Pressure (90/60-120/80) 118/58 L 124/54 H 131/47 H Blood Pressure Mean (mm Hg) 78 77 75 Source Monitor Monitor Monitor Position Semi-Fowlers Semi-Fowlers Semi-Fowlers Blood Pressure Location Left Arm Left Arm Right Forearm History Since Last Visit- (Skip if this is Patient's initial visit) Have you changed medications since your No No last visit? Any new allergies or adverse reactions No No Had a fall/change in ADL's that may No No increase risk of falls Signs or symptoms of abuse and/or No No neglect since last visit Have you been in the hospital since your No No last visit? Has dressing in place as prescribed Yes Yes Has compression in place as prescribed Yes Yes Has offloadiing in place as prescribed Yes N/A Experienced any changes in pain level or No No management Left Footwear Regular Shoe Regular Shoe Regular Shoe Right Footwear Regular Shoe Regular Shoe Regular Shoe Pain Scale: 0-10 Numeric Is Patient Pain Free? Yes Yes Yes 04/24/25 04/28/25 05/01/25 09:29 11:21 11:27 WC - Today's Visit Information Type of service Follow-up Visit Nurse-only Follow-up Visit (Physician/INTERVENTION TEACHER Visit (Physician/INTERVENTION TEACHER ) ) Arrival Mode Ambulatory, Ambulatory, Ambulatory, Walker Walker Walker Transfer Assistance None None Accompanied by daughter Patient Identification Verified (Name & Yes Yes Yes ) Patient Requires Transmission-Based No No Precautions Height and Weight Body Mass Index (BMI) 35.5 35.5 35.5 BMI Classification Obese Obese Obese Vital Signs Temperature (97.8 F-99.1 F) 97.6 F L 96.6 F L 98 F Temperature Source Temporal Temporal Temporal Pulse Rate (60-100) 67 64 70 Pulse Location Monitor Monitor Monitor Respiratory Rate (12-18) 18 16 18 Respiratory rate source Observation Observation Observation Oxygen Delivery Method Room Air Blood Pressure (90/60-120/80) 116/64 114/48 L 130/87 H Blood Pressure Mean (mm Hg) 81 70 101 Source Monitor Monitor Monitor Position Semi-Fowlers Blood Pressure Location Left Arm History Since Last Visit- (Skip if this is Patient's initial visit) Have you changed medications since your No No No last visit? Any new allergies or adverse reactions No No No Had a fall/change in ADL's that may No No No increase risk of falls Signs or symptoms of abuse and/or No No No neglect since last visit Have you been in the hospital since your No No No last visit? Has dressing in place as prescribed Yes Yes Yes Has compression in place as prescribed Yes Yes Yes Has offloadiing in place as prescribed Yes N/A N/A Experienced any changes in pain level or No No No management Left Footwear Regular Shoe Right Footwear Regular Shoe Pain Scale: 0-10 Numeric Is Patient Pain Free? Yes Yes Yes 05/05/25 05/08/25 13:03 08:06 WC - Today's Visit Information Type of service Nurse-only Follow-up Visit Visit (Physician/INTERVENTION TEACHER ) Arrival Mode Ambulatory, Ambulatory Walker Transfer Assistance None Accompanied by Patient Identification Verified (Name & Yes Yes ) Patient Requires Transmission-Based No Precautions Height and Weight Body Mass Index (BMI) 35.5 35.5 BMI Classification Obese Obese Vital Signs Temperature (97.8 F-99.1 F) 97 F L 97.0 F L Temperature Source Temporal Temporal Pulse Rate (60-100) 66 75 Pulse Location Monitor Monitor Respiratory Rate (12-18) 18 18 Respiratory rate source Observation Observation Oxygen Delivery Method Room Air Blood Pressure (90/60-120/80) 107/70 116/68 Blood Pressure Mean (mm Hg) 82 84 Source Monitor Monitor Position Semi-Fowlers Blood Pressure Location Left Arm History Since Last Visit- (Skip if this is Patient's initial visit) Have you changed medications since your No No last visit? Any new allergies or adverse reactions No No Had a fall/change in ADL's that may No No increase risk of falls Signs or symptoms of abuse and/or No No neglect since last visit Have you been in the hospital since your No No last visit? Has dressing in place as prescribed Yes Yes Has compression in place as prescribed Yes Yes Has offloadiing in place as prescribed N/A N/A Experienced any changes in pain level or No No management Left Footwear Regular Shoe Right Footwear Regular Shoe Pain Scale: 0-10 Numeric Is Patient Pain Free? Yes Yes WC - Nurse 1 - General Ulcer Measurement Start: 04/14/25 11:01 Freq: Status: Active Protocol: Activity Type Activity Date Activity User E-sign Co-sign Detail Recorded Client Recorded Date Recorded By Document 04/14/25 11:01 JF [id number] 04/14/25 11:02 JF Document 04/17/25 11:32 KW [id number] 04/17/25 11:45 KW Document 04/21/25 08:14 KW [id number] 04/21/25 08:14 KW Document 04/24/25 09:29 DL [id number] 04/24/25 09:45 DL Document 05/01/25 11:27 DL [id number] 05/01/25 11:41 DL Document 05/05/25 13:03 DL [id number] 05/05/25 13:21 DL Document 05/08/25 08:06 KW [id number] 05/08/25 08:15 KW 04/14/25 04/17/25 04/21/25 11:01 11:32 08:14 Wound Center Nurse 1 #5 LLE med -Current Size (cm) - Length 0.1 -Current Size (cm) - Width 0.1 -Current Size (cm) - Depth 0.1 -Total Square Cm 0.01 -Date of Last Picture (Recall this 04/17/25 field) -Exudate Amt Small -Exudate Type Serosanguineous -Wound Margin Distinct, Outline Attached -Granulation Amt Large (67-100%) -Granulation Quality Red -Necrosis Amt -Necrotic Tissue Type -Structure Exposed -Texture (Lyndsey-wound Skin Appearance) Assessed -Moisture (Lyndsey-wound Skin Appearance) Assessed -Color (Lyndsey-wound Skin Appearance) Assessed, Hemosiderin Staining -Temperature (Lyndsey-wound Skin No Abnormality Appearance) (Pt Warm) -Tenderness on Palpation (Lyndsey-wound Skin Appearance) -Ulcer Cleansing Soap and Water -Foul Odor after Cleansing No -Anesthetic Used 5% Lidocaine Gel -Wound Comment(s) not measured during nurse 1 #3 LLE Lat Cluster -Current Size (cm) - Length 0.1 -Current Size (cm) - Width 0.1 -Current Size (cm) - Depth 0.1 -Total Square Cm 0.01 -Date of Last Picture (Recall this 04/17/25 field) -Exudate Amt Small -Exudate Type Serosanguineous -Wound Margin Distinct, Outline Attached -Granulation Amt Large (67-100%) -Granulation Quality Red -Necrosis Amt -Necrotic Tissue Type -Structure Exposed -Texture (Lyndsey-wound Skin Appearance) Assessed -Moisture (Lyndsey-wound Skin Appearance) Assessed -Color (Lyndsey-wound Skin Appearance) Assessed, Hemosiderin Staining -Temperature (Lyndsey-wound Skin No Abnormality Appearance) (Pt Warm) -Tenderness on Palpation (Lyndsey-wound No Skin Appearance) -Ulcer Cleansing Soap and Water -Foul Odor after Cleansing No -Anesthetic Used 5% Lidocaine Gel -Wound Comment(s) not measured during nurse 1 Lower Limb Edema Present NA Right Calf (cm) 34.5 35.2 Right Ankle (cm) 26.5 25.3 Left Calf (cm) 35.5 35.2 Left Ankle (cm) 27 25.8 04/24/25 05/01/25 05/05/25 09:29 11:27 13:03 Wound Center Nurse 1 #5 LLE med -Current Size (cm) - Length 0.6 0.1 -Current Size (cm) - Width 0.4 0.1 -Current Size (cm) - Depth 0.2 0.1 -Total Square Cm 0.24 0.01 -Date of Last Picture (Recall this field) -Exudate Amt Small None Present -Exudate Type Serosanguineous -Wound Margin Distinct, Thickened Outline Attached -Granulation Amt Small (1-33%) None Present (0 %) -Granulation Quality Red -Necrosis Amt Small (1-33%) Small (1-33%) -Necrotic Tissue Type Adherent Slough Eschar -Structure Exposed N/A N/A -Texture (Lyndsey-wound Skin Appearance) Scarring Scarring -Moisture (Lyndsey-wound Skin Appearance) No Abnormality -Color (Lyndsey-wound Skin Appearance) Hemosiderin Hemosiderin Staining Staining -Temperature (Lyndsey-wound Skin No Abnormality No Abnormality Appearance) (Pt Warm) (Pt Warm) -Tenderness on Palpation (Lyndsey-wound No Skin Appearance) -Ulcer Cleansing Not Cleansed Soap and Water -Foul Odor after Cleansing No No -Anesthetic Used 5% Lidocaine 5% Lidocaine Gel Gel -Wound Comment(s) #3 LLE Lat Cluster -Current Size (cm) - Length 1.6 0.5 -Current Size (cm) - Width 1 0.4 -Current Size (cm) - Depth 0.2 0.1 -Total Square Cm 1.6 0.20 -Date of Last Picture (Recall this field) -Exudate Amt Medium Small None Present -Exudate Type Serosanguineous Serosanguineous -Wound Margin Distinct, Distinct, Distinct, Outline Outline Outline Attached Attached Attached -Granulation Amt Large (67-100%) Small (1-33%) Small (1-33%) -Granulation Quality Red Red Red -Necrosis Amt None Present (0 Small (1-33%) %) -Necrotic Tissue Type Adherent Slough -Structure Exposed N/A N/A N/A -Texture (Lyndsey-wound Skin Appearance) Scarring Scarring Scarring -Moisture (Lyndsey-wound Skin Appearance) No Abnormality No Abnormality No Abnormality -Color (Lyndsey-wound Skin Appearance) Hemosiderin No Abnormality Hemosiderin Staining Staining -Temperature (Lyndsey-wound Skin No Abnormality No Abnormality No Abnormality Appearance) (Pt Warm) (Pt Warm) (Pt Warm) -Tenderness on Palpation (Lyndsey-wound No No Skin Appearance) -Ulcer Cleansing Soap and Water Soap and Water Soap and Water -Foul Odor after Cleansing No No No -Anesthetic Used 5% Lidocaine 5% Lidocaine Gel Gel -Wound Comment(s) Lower Limb Edema Present Right Calf (cm) 34 34 Right Ankle (cm) 24.5 25.2 Left Calf (cm) 34 34 Left Ankle (cm) 25.2 25.6 05/08/25 08:06 Wound Center Nurse 1 #5 LLE med -Current Size (cm) - Length -Current Size (cm) - Width -Current Size (cm) - Depth -Total Square Cm -Date of Last Picture (Recall this field) -Exudate Amt -Exudate Type -Wound Margin -Granulation Amt -Granulation Quality -Necrosis Amt -Necrotic Tissue Type -Structure Exposed -Texture (Lyndsey-wound Skin Appearance) -Moisture (Lyndsey-wound Skin Appearance) -Color (Lyndsey-wound Skin Appearance) -Temperature (Lyndsey-wound Skin Appearance) -Tenderness on Palpation (Lyndsey-wound Skin Appearance) -Ulcer Cleansing -Foul Odor after Cleansing -Anesthetic Used -Wound Comment(s) #3 LLE Lat Cluster -Current Size (cm) - Length 0.1 -Current Size (cm) - Width 0.1 -Current Size (cm) - Depth 0 -Total Square Cm 0.01 -Date of Last Picture (Recall this 05/08/25 field) -Exudate Amt None Present -Exudate Type -Wound Margin Distinct, Outline Attached -Granulation Amt None Present (0 %) -Granulation Quality -Necrosis Amt Large (67-100%) -Necrotic Tissue Type Adherent Slough -Structure Exposed -Texture (Lyndsey-wound Skin Appearance) Assessed -Moisture (Lyndsey-wound Skin Appearance) Assessed -Color (Lyndsey-wound Skin Appearance) Assessed, Hemosiderin Staining -Temperature (Lyndsey-wound Skin No Abnormality Appearance) (Pt Warm) -Tenderness on Palpation (Lyndsey-wound No Skin Appearance) -Ulcer Cleansing Soap and Water -Foul Odor after Cleansing No -Anesthetic Used 5% Lidocaine Gel -Wound Comment(s) Lower Limb Edema Present Right Calf (cm) Right Ankle (cm) Left Calf (cm) 35.2 Left Ankle (cm) 26 WC - Nurse 2 - General Ulcer CM Notes Start: 04/14/25 11:01 Freq: Status: Active Protocol: Activity Type Activity Date Activity User E-sign Co-sign Detail Recorded Client Recorded Date Recorded By Document 04/17/25 12:04 [facility] [id number] 04/17/25 12:08 BMF Document 04/24/25 10:03 BMF [id number] 04/24/25 10:08 BMF Document 05/01/25 12:04 BM [id number] 05/01/25 12:17 BM Document 05/08/25 08:41 BM [id number] 05/08/25 08:43 [facility] 04/17/25 04/24/25 05/01/25 12:04 10:03 12:04 Wound Center Nurse 2 #5 JOSHUA med -Time 12: 10:04 12:11 -Correct Patient Yes Yes -Correct Side, Site, Position Yes Yes -Correct Procedure Yes Yes -Procedure Performed Yes Yes No -Type of Procedure Debridement Debridement -Clinical Debridement Subcutaneous Subcutaneous -Tissue Removed Subcutaneous Subcutaneous -Post Debridement (cm) - Length 1 0.7 0.1 -Post Debridement (cm) - Width 0.5 0.5 0.1 -Post Debridement (cm) - Depth 0.1 0.1 0.1 -Total Square (Post) (cm) 0.5 0.35 0.01 -Area of Debridement (cm) - Length 1 0.7 0.1 -Area of Debridement (cm) - Width 0.5 0.5 0.1 -Total Square (Area) (cm) 0.5 0.35 0.01 -Tunneling No No No -Undermining/Tunneling No No No -Circular Undermining No No No -Wound/Ulcer Outcome Not Healed Not Healed Not Healed -Ulcer Cleansing Rinsed/ Rinsed/ Irrigated with Irrigated with Saline Saline -Foul Odor after Cleansing No No -Bioengineered Tissue No No -Bleeding Controlled with Pressure Pressure NA -Treatment Response Procedure Procedure Tolerated Well Tolerated Well -Debridement - Subq, 1st 20sq cm Yes Yes #3 LLE Lat Cluster -Time 12: 10:04 12:15 -Correct Patient Yes Yes Yes -Correct Side, Site, Position Yes Yes Yes -Correct Procedure Yes Yes Yes -Procedure Performed Yes Yes Yes -Type of Procedure Debridement Debridement Debridement -Clinical Debridement Subcutaneous Subcutaneous Subcutaneous -Tissue Removed Subcutaneous Subcutaneous Subcutaneous -Post Debridement (cm) - Length 2.5 1.8 0.8 -Post Debridement (cm) - Width 1.6 1 0.4 -Post Debridement (cm) - Depth 0.1 0.1 0.1 -Total Square (Post) (cm) 4.00 1.8 0.32 -Area of Debridement (cm) - Length 2.5 1.8 0.8 -Area of Debridement (cm) - Width 1.6 1 0.4 -Total Square (Area) (cm) 4.00 1.8 0.32 -Tunneling No No No -Undermining/Tunneling No No No -Circular Undermining No No -Wound/Ulcer Outcome Not Healed Not Healed Not Healed -Ulcer Cleansing Rinsed/ Rinsed/ Rinsed/ Irrigated with Irrigated with Irrigated with Saline Saline Saline -Foul Odor after Cleansing No No No -Bioengineered Tissue No No -Bleeding Controlled with Pressure Pressure Pressure -Treatment Response Procedure Procedure Tolerated Well Tolerated Well -Debridement - Subq, 1st 20sq cm No No Yes Pain Scale: 0-10 Numeric Is Patient Pain Free? Yes Yes Yes 05/08/25 08:41 Wound Center Nurse 2 #5 LLE med -Time -Correct Patient -Correct Side, Site, Position -Correct Procedure -Procedure Performed -Type of Procedure -Clinical Debridement -Tissue Removed -Post Debridement (cm) - Length -Post Debridement (cm) - Width -Post Debridement (cm) - Depth -Total Square (Post) (cm) -Area of Debridement (cm) - Length -Area of Debridement (cm) - Width -Total Square (Area) (cm) -Tunneling -Undermining/Tunneling -Circular Undermining -Wound/Ulcer Outcome -Ulcer Cleansing -Foul Odor after Cleansing -Bioengineered Tissue -Bleeding Controlled with -Treatment Response -Debridement - Subq, 1st 20sq cm #3 LLE Lat Cluster -Time 08:41 -Correct Patient -Correct Side, Site, Position -Correct Procedure -Procedure Performed No -Type of Procedure -Clinical Debridement -Tissue Removed -Post Debridement (cm) - Length 0.1 -Post Debridement (cm) - Width 0.1 -Post Debridement (cm) - Depth 0.1 -Total Square (Post) (cm) 0.01 -Area of Debridement (cm) - Length 0.1 -Area of Debridement (cm) - Width 0.1 -Total Square (Area) (cm) 0.01 -Tunneling -Undermining/Tunneling -Circular Undermining -Wound/Ulcer Outcome Not Healed -Ulcer Cleansing -Foul Odor after Cleansing -Bioengineered Tissue -Bleeding Controlled with NA -Treatment Response -Debridement - Subq, 1st 20sq cm Pain Scale: 0-10 Numeric Is Patient Pain Free? Yes WC - Nurse 3 - General Ulcer D/C NN Start: 04/14/25 11:01 Freq: Status: Active Protocol: Activity Type Activity Date Activity User E-sign Co-sign Detail Recorded Client Recorded Date Recorded By Document 04/14/25 11:01 JF [id number] 04/14/25 11:02 JF Document 04/17/25 12:25 DL [id number] 04/17/25 12:26 DL Document 04/21/25 08:12 KW [id number] 04/21/25 08:14 KW Document 04/24/25 10:36 DL [id number] 04/24/25 10:37 DL Document 04/28/25 11:21 KW [id number] 04/28/25 11:23 KW Document 05/01/25 12:11 DL [id number] 05/01/25 12:13 DL Document 05/05/25 13:03 DL [id number] 05/05/25 13:21 DL Document 05/08/25 09:09 DL [id number] 05/08/25 09:10 DL 04/14/25 04/17/25 04/21/25 11:01 12:25 08:12 Pain Scale: 0-10 Numeric Is Patient Pain Free? Yes Yes Yes Wound Care Center Nurse 3 #5 LLE med -Ulcer Cleansing Soap and Water Soap and Water Soap and Water -Foul Odor after Cleansing -Primary Dressing Applied Promogran Promogran Renuka Matter Renuka Matter -Other Dressing pt own renuka -Primary Dressing Covered/Secured with Dry Gauze Dry Gauze -Other Covering unna -Promogran Renuka Matter 1 1 #3 LLE Lat Cluster -Ulcer Cleansing Soap and Water Soap and Water -Foul Odor after Cleansing No -Other Dressing renuka ptown renuka -Primary Dressing Covered/Secured with Dry Gauze -Other Covering unna -Wound Comment(s) LLE -Multi-Layered Wrap Application -Unna- Left (Qty applied) BLE -Multi-Layered Wrap Application Unna Boot - Unna Boot - Unna Boot - Bilateral Bilateral Bilateral -Stockings -Unna- Bilat (Qty applied) 1 1 1 Treatment Response Procedure Tolerated Well WC - Visit Discharge Discharge Condition Stable Stable Stable Ambulatory Status Ambulatory, Ambulatory Ambulatory, Walker Walker Transportation Private Auto Private Auto Private Auto Accompanied by Medication Reconcilliation completed & No provided to patient/care provider Clinical Summary of Care Provided Yes Facility Type Home Health Orders Sent Yes 06/12/25 06/16/25 06/19/25 10:36 11:21 12:11 Pain Scale: 0-10 Numeric Is Patient Pain Free? Yes Yes Yes Wound Care Center Nurse 3 #5 LLE med -Ulcer Cleansing Rinsed/ Soap and Water Irrigated with Saline -Foul Odor after Cleansing No -Primary Dressing Applied NonAdherent Contact Layer -Other Dressing Renuka pt own renuka -Primary Dressing Covered/Secured with -Other Covering -Promogran Renuka Matter #3 LLE Lat Cluster -Ulcer Cleansing Rinsed/ Soap and Water Rinsed/ Irrigated with Irrigated with Saline Saline -Foul Odor after Cleansing No -Other Dressing Renuka pt own renuka RENUKA with adaptic -Primary Dressing Covered/Secured with -Other Covering -Wound Comment(s) RLE STOCKINGS LLE -Multi-Layered Wrap Application Unna Boot - Left -Unna- Left (Qty applied) 1 BLE -Multi-Layered Wrap Application Unna Boot - Unna Boot - Bilateral Bilateral -Stockings -Unna- Bilat (Qty applied) 1 1 Treatment Response Procedure Procedure Tolerated Well Tolerated Well WC - Visit Discharge Discharge Condition Stable Stable Stable Ambulatory Status Ambulatory, Ambulatory, Ambulatory, Walker Walker Walker Transportation Private Auto Private Auto Private Auto Accompanied by family Medication Reconcilliation completed & No provided to patient/care provider Clinical Summary of Care Provided Yes Facility Type Orders Sent 05/05/25 05/08/25 13:03 09:09 Pain Scale: 0-10 Numeric Is Patient Pain Free? Yes Yes Wound Care Center Nurse 3 #5 LLE med -Ulcer Cleansing -Foul Odor after Cleansing -Primary Dressing Applied -Other Dressing -Primary Dressing Covered/Secured with -Other Covering -Promogran Renuka Matter #3 LLE Lat Cluster -Ulcer Cleansing Soap and Water Soap and Water -Foul Odor after Cleansing No No -Other Dressing renuka No Dressing -Primary Dressing Covered/Secured with -Other Covering Unna -Wound Comment(s) LLE -Multi-Layered Wrap Application Unna Boot - Left -Unna- Left (Qty applied) 1 BLE -Multi-Layered Wrap Application -Stockings Yes -Unna- Bilat (Qty applied) Treatment Response Procedure Procedure Tolerated Well Tolerated Well WC - Visit Discharge Discharge Condition Stable Stable Ambulatory Status Ambulatory, Ambulatory, Walker Walker Transportation Private Auto Private Auto Accompanied by family family Medication Reconcilliation completed & provided to patient/care provider Clinical Summary of Care Provided Facility Type Orders Sent Assessment/Plan Assessment/Plan (1) Non-pressure chronic ulcer of left calf with fat layer exposed: CODE(S): L97.222 - Non-pressure chronic ulcer of left calf with fat layer exposed (2) Venous insufficiency (chronic) (peripheral): CODE(S): I87.2 - Venous insufficiency (chronic) (peripheral) (3) Lipodermatosclerosis of both lower extremities: CODE(S): M79.3 - Panniculitis, unspecified (4) Diabetes mellitus with diabetic polyneuropathy: CODE(S): E11.42 - Type 2 diabetes mellitus with diabetic polyneuropathy QUALIFIERS: Diabetes mellitus type: type 2 (5) Diabetes mellitus with ulcer of calf: CODE(S): E11.622 - Type 2 diabetes mellitus with other skin ulcer; L97.209- Non-pressure chronic ulcer of unspecified calf with unspecified severity (6) Bilateral lower extremity edema: CODE(S): R60.0 - Localized edema PLAN: Plan Patient seen and evaluated Predebridement ulceration measurement: Right lower extremity healed Left medial lower extremity healed Left lateral lower extremity 0.1 cm x 0.1 cm x 0.1 cm Ulceration did not undergo debridement as noted in the clinical panel above. Postdebridement measurement: Left medial lower extremity healed; left lateral lower extremity 0.1 cm x 0.1 cm x 0.1 cm. Compression stocking to bilateral lower extremity. There is continued reduction in size ulcerative sites versus his previous visit.He is healing well at this time. It has been discussed with the patient that he is to continue to sleep on flat mattress at night with leg elevation as much as possible at night and throughoutthe day to be heart level or higher. He has been advised against prolonged sitting. 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 He is nearly finished with prescription. He has been advised to not pick at any dry skin or excessively scrub while in the shower to prevent opening of ulcerations as his skin is friable. Skin continues to improve via use of Unna boot compression but with wound nearlyhealed we will transition to his traditional compression stocking. Discussed signs and symptoms of infection. Discussed if he notices increasing redness about his legs moving up the leg, if he notices any purulent drainage from his wound sites, increasing foul odor from the wound sites, or if he experiences fever greater than 101 degree accompanied by nausea, vomiting, chills that these are signs of a progressing infection and he should report to the ED for IV antibiotic and further evaluation. He is understanding of this today. The following work up and care recommendations were made: Dressing: Compression stocking bilateral lower extremity Wash: Soap and water Tissue growth optimization: None Offload: Compression stocking Vascular: Vascular status not impeding healing, chronic venous stasis and lipodermatosclerosis do complicate healing. Edema: Compression stocking and elevation of lower extremities at all times of rest. Infection: No signs of infection currently. Will finish oral linezolid and continue with intranasal mupirocin. Pain: May take [id number] Tylenol Extra Strength for any discomfort. Currently no pain secondary to diabetic peripheral polyneuropathy Host factors: DM type II with peripheral polyneuropathy, lipodermatosclerosis/chronic venous stasis to complicate healing. I answered all the patient's questions. To return to the wound healing center in 1 week or call sooner if the patient has any questions or concerns. 05/08/25 0935 <Electronically signed by Shady Ogden DPM> Cosigner Signature (if applicable): CC: ~ Signed [facility] Work Phone: [phone] Progress note [facility] [address] [place] [address] Progress Note - Wound Care 05/08/25 0931 MR#: [id number] Acct: [id number] Name: ANDER MONTEIRO Rep #:[id number] : 1950 74 From: Shady hernandez DPM PCP: Dr. Freedom Sutton MD Status:REG R CR Location: History of Present Illness Date of Service: 05/08/25 Chief Complaint: Venous stasis ulceration left lower extremity History of Wound: This is a 74-year-old male who presents to the wound care center for continued aid in healing of a venous stasis ulceration to the lateralaspect of the left lower extremity. Ulceration is secondary to chronic venous insufficiency and lower extremity edema. He had been unable to wear his compression stockings due to significant edema and previous heart failure. 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 This did lead to improvement in lower extremity edema however still does get swelling secondary to his chronic venous insufficiency which did lead to ulceration to the lateral aspect of the left leg. He had been undergoing local woundcare in office over the course of 6 weeks with applications of Renuka however ulceration has failedto improve with this and compression stocking. Hecontinues to change dressing daily with Renuka anddosarwat have visiting nursing toassist in dressing changes. States that he continues to wear his compression stocking and tries to elevate when possible. He does assist in care for his so elevationat all times of rest poses difficulty. Denies trauma to the leg. Denies N/V/F/chills/SOB. Denies further complaints. Subjective Subjective This is a 74-year-old male who presents to the wound care center for continued care of bilateral lower extremity venous stasis ulcerations. He continues Unna boot compression and is tolerating this well. He continues his 80 mg furosemidedaily and notices that this continues to control edema body wide. He is attempting to continue to elevate legs is much as possible. Reports remainsin extended care at [place] where she still continues to fight. He continues tovisit her daily. Accompanied bydaughter in law who notes wounds continue improving with wounds nearly healed. He does also enjoy time riding an electric tricycle around his property. He denies constitutional symptoms. Denies furthercomplaints today. Objective Data Objective Data Vital Signs: Vital Signs Temp Pulse Resp BP O2 Del Method 97.0 F L 75 18 116/68 Room Air 05/08/25 08:06 05/08/25 08:06 05/08/25 08:06 05/08/25 08:06 05/08/25 08:06 Oxygen Delivery Method Room Air Weight: 105.994 kg Body Mass Index (BMI) 35.5 Physical Exam Const alert, oriented x3 and no apparent distress General Appearance: cooperative HEENT normocephalic Eyes General Eye: normal appearance of both eyes Neck General: normal visual inspection Lymph Lymphatic: no lymphadenopathy noted and no lymphedema noted Resp normal respiratory effort Cardio regular rate and regular rhythm Extremity no calf tenderness Extremity Narrative: Bilateral lower extremity: Vascular: DP and PT pulses weakly palpable. CFT is less than 5 seconds to digits. Normal temperature gradient. Hair growth is absent to digits. Neurologic: Gross sensation intact. There is decreased protective sensation consistent with diabetic peripheral polyneuropathy. Musculoskeletal: Muscle strength 5 of 5 age-appropriate. There is decreased range of motion of the ankle joint dorsiflexion with the knee extended without pain or crepitus bilateral. There is decreased range of motion of the first metatarsophalangeal joint without pain or crepitus bilateral. No pain to palpation of calf bilateral. Dermatologic: Bilateral lower extremities demonstrate lipodermatosclerosis with hyperpigmentation to the pretibial region. Previous scaling/eczematous skin improved following compression of Unna boottherapy. Full-thickness ulceration to the right lower extremity remains healed. There are 2 full-thickness ulcerations to the left lower extremity 1 medial and 1 lateral. Medial ulceration remains healed. Lateral ulceration demonstrate superficial stable eschar today. No signs of infection. Skin no rashes or lesions noted General Skin Exam: venous stasis and dermatitis Neuro moves all extremities Debridement Note Debridement Note No debridement was completed: No debridement was completed today Post-Debridement Measurements and Additional Note: Post-Debridement Measurements/Treatment - Nurse 1 - General Ulcer Assessment Start: 04/14/25 11:01 Freq: Status: Active Protocol: [email or web address] Activity Type Activity Date Activity User E-sign Co-sign Detail Recorded Client Recorded Date Recorded By Document 04/14/25 11:01 JF [id number] 04/14/25 11:02 Document 04/17/25 11:32 KW [id number] 04/17/25 11:45 KW Document 04/21/25 08:12 KW [id number] 04/21/25 08:14 KW Document 04/24/25 09:29 DL [id number] 04/24/25 09:45 DL Document 04/28/25 11:21 KW [id number] 04/28/25 11:23 KW Document 05/01/25 11:27 DL [id number] 05/01/25 11:41 DL Document 05/05/25 13:03 DL [id number] 05/05/25 13:21 DL Document 05/08/25 08:06 KW [id number] 05/08/25 08:15 KW 04/14/25 04/17/25 04/21/25 11:01 11:32 08:12 - Today's Visit Information Type of service Nurse-only Follow-up Visit Nurse-only Visit (Physician/INTERVENTION TEACHER Visit ) Arrival Mode Ambulatory, Ambulatory, Ambulatory, Walker Walker Walker Transfer Assistance Accompanied by DIL daughter in law Patient Identification Verified (Name & Yes Yes Yes ) Patient Requires Transmission-Based No Precautions Height and Weight Body Mass Index (BMI) 35.5 35.5 35.5 BMI Classification Obese Obese Obese Vital Signs Temperature (97.8 F-99.1 F) 98.3 F 98.2 F 97.8 F Temperature Source Temporal Temporal Temporal Pulse Rate (60-100) 70 67 66 Pulse Location Monitor Monitor Monitor Respiratory Rate (12-18) 16 18 18 Respiratory rate source Observation Observation Observation Oxygen Delivery Method Room Air Room Air Blood Pressure (90/60-120/80) 118/58 L 124/54 H 131/47 H Blood Pressure Mean (mm Hg) 78 77 75 Source Monitor Monitor Monitor Position Semi-Fowlers Semi-Fowlers Semi-Fowlers Blood Pressure Location Left Arm Left Arm Right Forearm History Since Last Visit- (Skip if this is Patient's initial visit) Have you changed medications since your No No last visit? Any new allergies or adverse reactions No No Had a fall/change in ADL's that may No No increase risk of falls Signs or symptoms of abuse and/or No No neglect since last visit Have you been in the hospital since your No No last visit? Has dressing in place as prescribed Yes Yes Has compression in place as prescribed Yes Yes Has offloadiing in place as prescribed Yes N/A Experienced any changes in pain level or No No management Left Footwear Regular Shoe Regular Shoe Regular Shoe Right Footwear Regular Shoe Regular Shoe Regular Shoe Pain Scale: 0-10 Numeric Is Patient Pain Free? Yes Yes Yes 04/24/25 04/28/25 05/01/25 09:29 11:21 11:27 - Today's Visit Information Type of service Follow-up Visit Nurse-only Follow-up Visit (Physician/INTERVENTION TEACHER Visit (Physician/INTERVENTION TEACHER ) ) Arrival Mode Ambulatory, Ambulatory, Ambulatory, Walker Walker Walker Transfer Assistance None None Accompanied by daughter Patient Identification Verified (Name & Yes Yes Yes ) Patient Requires Transmission-Based No No Precautions Height and Weight Body Mass Index (BMI) 35.5 35.5 35.5 BMI Classification Obese Obese Obese Vital Signs Temperature (97.8 F-99.1 F) 97.6 F L 96.6 F L 98 F Temperature Source Temporal Temporal Temporal Pulse Rate (60-100) 67 64 70 Pulse Location Monitor Monitor Monitor Respiratory Rate (12-18) 18 16 18 Respiratory rate source Observation Observation Observation Oxygen Delivery Method Room Air Blood Pressure (90/60-120/80) 116/64 114/48 L 130/87 H Blood Pressure Mean (mm Hg) 81 70 101 Source Monitor Monitor Monitor Position Semi-Fowlers Blood Pressure Location Left Arm History Since Last Visit- (Skip if this is Patient's initial visit) Have you changed medications since your No No No last visit? Any new allergies or adverse reactions No No No Had a fall/change in ADL's that may No No No increase risk of falls Signs or symptoms of abuse and/or No No No neglect since last visit Have you been in the hospital since your No No No last visit? Has dressing in place as prescribed Yes Yes Yes Has compression in place as prescribed Yes Yes Yes Has offloadiing in place as prescribed Yes N/A N/A Experienced any changes in pain level or No No No management Left Footwear Regular Shoe Right Footwear Regular Shoe Pain Scale: 0-10 Numeric Is Patient Pain Free? Yes Yes Yes 05/05/25 05/08/25 13:03 08:06 WC - Today's Visit Information Type of service Nurse-only Follow-up Visit Visit (Physician/INTERVENTION TEACHER ) Arrival Mode Ambulatory, Ambulatory Walker Transfer Assistance None Accompanied by Patient Identification Verified (Name & Yes Yes ) Patient Requires Transmission-Based No Precautions Height and Weight Body Mass Index (BMI) 35.5 35.5 BMI Classification Obese Obese Vital Signs Temperature (97.8 F-99.1 F) 97 F L 97.0 F L Temperature Source Temporal Temporal Pulse Rate (60-100) 66 75 Pulse Location Monitor Monitor Respiratory Rate (12-18) 18 18 Respiratory rate source Observation Observation Oxygen Delivery Method Room Air Blood Pressure (90/60-120/80) 107/70 116/68 Blood Pressure Mean (mm Hg) 82 84 Source Monitor Monitor Position Semi-Fowlers Blood Pressure Location Left Arm History Since Last Visit- (Skip if this is Patient's initial visit) Have you changed medications since your No No last visit? Any new allergies or adverse reactions No No Had a fall/change in ADL's that may No No increase risk of falls Signs or symptoms of abuse and/or No No neglect since last visit Have you been in the hospital since your No No last visit? Has dressing in place as prescribed Yes Yes Has compression in place as prescribed Yes Yes Has offloadiing in place as prescribed N/A N/A Experienced any changes in pain level or No No management Left Footwear Regular Shoe Right Footwear Regular Shoe Pain Scale: 0-10 Numeric Is Patient Pain Free? Yes Yes WC - Nurse 1 - General Ulcer Measurement Start: 04/14/25 11:01 Freq: Status: Active Protocol: Activity Type Activity Date Activity User E-sign Co-sign Detail Recorded Client Recorded Date Recorded By Document 04/14/25 11:01 JF [id number] 04/14/25 11:02 JF Document 04/17/25 11:32 KW [id number] 04/17/25 11:45 KW Document 04/21/25 08:14 KW [id number] 04/21/25 08:14 KW Document 04/24/25 09:29 DL [id number] 04/24/25 09:45 DL Document 05/01/25 11:27 DL [id number] 05/01/25 11:41 DL Document 05/05/25 13:03 DL [id number] 05/05/25 13:21 DL Document 05/08/25 08:06 KW [id number] 05/08/25 08:15 KW 04/14/25 04/17/25 04/21/25 11:01 11:32 08:14 Wound Center Nurse 1 #5 LLE med -Current Size (cm) - Length 0.1 -Current Size (cm) - Width 0.1 -Current Size (cm) - Depth 0.1 -Total Square Cm 0.01 -Date of Last Picture (Recall this 04/17/25 field) -Exudate Amt Small -Exudate Type Serosanguineous -Wound Margin Distinct, Outline Attached -Granulation Amt Large (67-100%) -Granulation Quality Red -Necrosis Amt -Necrotic Tissue Type -Structure Exposed -Texture (Lyndsey-wound Skin Appearance) Assessed -Moisture (Lyndsey-wound Skin Appearance) Assessed -Color (Lyndsey-wound Skin Appearance) Assessed, Hemosiderin Staining -Temperature (Lyndsey-wound Skin No Abnormality Appearance) (Pt Warm) -Tenderness on Palpation (Lyndsey-wound Skin Appearance) -Ulcer Cleansing Soap and Water -Foul Odor after Cleansing No -Anesthetic Used 5% Lidocaine Gel -Wound Comment(s) not measured during nurse 1 #3 LLE Lat Cluster -Current Size (cm) - Length 0.1 -Current Size (cm) - Width 0.1 -Current Size (cm) - Depth 0.1 -Total Square Cm 0.01 -Date of Last Picture (Recall this 04/17/25 field) -Exudate Amt Small -Exudate Type Serosanguineous -Wound Margin Distinct, Outline Attached -Granulation Amt Large (67-100%) -Granulation Quality Red -Necrosis Amt -Necrotic Tissue Type -Structure Exposed -Texture (Lyndsey-wound Skin Appearance) Assessed -Moisture (Lyndsey-wound Skin Appearance) Assessed -Color (Lyndsey-wound Skin Appearance) Assessed, Hemosiderin Staining -Temperature (Lyndsey-wound Skin No Abnormality Appearance) (Pt Warm) -Tenderness on Palpation (Lyndsey-wound No Skin Appearance) -Ulcer Cleansing Soap and Water -Foul Odor after Cleansing No -Anesthetic Used 5% Lidocaine Gel -Wound Comment(s) not measured during nurse 1 Lower Limb Edema Present NA Right Calf (cm) 34.5 35.2 Right Ankle (cm) 26.5 25.3 Left Calf (cm) 35.5 35.2 Left Ankle (cm) 27 25.8 04/24/25 05/01/25 05/05/25 09:29 11:27 13:03 Wound Center Nurse 1 #5 LLE med -Current Size (cm) - Length 0.6 0.1 -Current Size (cm) - Width 0.4 0.1 -Current Size (cm) - Depth 0.2 0.1 -Total Square Cm 0.24 0.01 -Date of Last Picture (Recall this field) -Exudate Amt Small None Present -Exudate Type Serosanguineous -Wound Margin Distinct, Thickened Outline Attached -Granulation Amt Small (1-33%) None Present (0 %) -Granulation Quality Red -Necrosis Amt Small (1-33%) Small (1-33%) -Necrotic Tissue Type Adherent Slough Eschar -Structure Exposed N/A N/A -Texture (Lyndsey-wound Skin Appearance) Scarring Scarring -Moisture (Lyndsey-wound Skin Appearance) No Abnormality -Color (Lyndsey-wound Skin Appearance) Hemosiderin Hemosiderin Staining Staining -Temperature (Lyndsey-wound Skin No Abnormality No Abnormality Appearance) (Pt Warm) (Pt Warm) -Tenderness on Palpation (Lyndsey-wound No Skin Appearance) -Ulcer Cleansing Not Cleansed Soap and Water -Foul Odor after Cleansing No No -Anesthetic Used 5% Lidocaine 5% Lidocaine Gel Gel -Wound Comment(s) #3 LLE Lat Cluster -Current Size (cm) - Length 1.6 0.5 -Current Size (cm) - Width 1 0.4 -Current Size (cm) - Depth 0.2 0.1 -Total Square Cm 1.6 0.20 -Date of Last Picture (Recall this field) -Exudate Amt Medium Small None Present -Exudate Type Serosanguineous Serosanguineous -Wound Margin Distinct, Distinct, Distinct, Outline Outline Outline Attached Attached Attached -Granulation Amt Large (67-100%) Small (1-33%) Small (1-33%) -Granulation Quality Red Red Red -Necrosis Amt None Present (0 Small (1-33%) %) -Necrotic Tissue Type Adherent Slough -Structure Exposed N/A N/A N/A -Texture (Lyndsey-wound Skin Appearance) Scarring Scarring Scarring -Moisture (Lyndsey-wound Skin Appearance) No Abnormality No Abnormality No Abnormality -Color (Lyndsey-wound Skin Appearance) Hemosiderin No Abnormality Hemosiderin Staining Staining -Temperature (Lyndsey-wound Skin No Abnormality No Abnormality No Abnormality Appearance) (Pt Warm) (Pt Warm) (Pt Warm) -Tenderness on Palpation (Lyndsey-wound No No Skin Appearance) -Ulcer Cleansing Soap and Water Soap and Water Soap and Water -Foul Odor after Cleansing No No No -Anesthetic Used 5% Lidocaine 5% Lidocaine Gel Gel -Wound Comment(s) Lower Limb Edema Present Right Calf (cm) 34 34 Right Ankle (cm) 24.5 25.2 Left Calf (cm) 34 34 Left Ankle (cm) 25.2 25.6 05/08/25 08:06 Wound Center Nurse 1 #5 LLE med -Current Size (cm) - Length -Current Size (cm) - Width -Current Size (cm) - Depth -Total Square Cm -Date of Last Picture (Recall this field) -Exudate Amt -Exudate Type -Wound Margin -Granulation Amt -Granulation Quality -Necrosis Amt -Necrotic Tissue Type -Structure Exposed -Texture (Lyndsey-wound Skin Appearance) -Moisture (Lyndsey-wound Skin Appearance) -Color (Lyndsey-wound Skin Appearance) -Temperature (Lyndsey-wound Skin Appearance) -Tenderness on Palpation (Lyndsey-wound Skin Appearance) -Ulcer Cleansing -Foul Odor after Cleansing -Anesthetic Used -Wound Comment(s) #3 LLE Lat Cluster -Current Size (cm) - Length 0.1 -Current Size (cm) - Width 0.1 -Current Size (cm) - Depth 0 -Total Square Cm 0.01 -Date of Last Picture (Recall this 05/08/25 field) -Exudate Amt None Present -Exudate Type -Wound Margin Distinct, Outline Attached -Granulation Amt None Present (0 %) -Granulation Quality -Necrosis Amt Large (67-100%) -Necrotic Tissue Type Adherent Slough -Structure Exposed -Texture (Lyndsey-wound Skin Appearance) Assessed -Moisture (Lyndsey-wound Skin Appearance) Assessed -Color (Lyndsey-wound Skin Appearance) Assessed, Hemosiderin Staining -Temperature (Lyndsey-wound Skin No Abnormality Appearance) (Pt Warm) -Tenderness on Palpation (Lyndsey-wound No Skin Appearance) -Ulcer Cleansing Soap and Water -Foul Odor after Cleansing No -Anesthetic Used 5% Lidocaine Gel -Wound Comment(s) Lower Limb Edema Present Right Calf (cm) Right Ankle (cm) Left Calf (cm) 35.2 Left Ankle (cm) 26 WC - Nurse 2 - General Ulcer CM Notes Start: 04/14/25 11:01 Freq: Status: Active Protocol: Activity Type Activity Date Activity User E-sign Co-sign Detail Recorded Client Recorded Date Recorded By Document 04/17/25 12:04 [facility] [id number] 04/17/25 12:08 [facility] Document 04/24/25 10:03 [facility] [id number] 04/24/25 10:08 BM Document 05/01/25 12:04 [facility] [id number] 05/01/25 12:17 BM Document 05/08/25 08:41 [facility] [id number] 05/08/25 08:43 BMF 04/17/25 04/24/25 05/01/25 12:04 10:03 12:04 Wound Center Nurse 2 #5 LLE med -Time 12:04 10:04 12:11 -Correct Patient Yes Yes -Correct Side, Site, Position Yes Yes -Correct Procedure Yes Yes -Procedure Performed Yes Yes No -Type of Procedure Debridement Debridement -Clinical Debridement Subcutaneous Subcutaneous -Tissue Removed Subcutaneous Subcutaneous -Post Debridement (cm) - Length 1 0.7 0.1 -Post Debridement (cm) - Width 0.5 0.5 0.1 -Post Debridement (cm) - Depth 0.1 0.1 0.1 -Total Square (Post) (cm) 0.5 0.35 0.01 -Area of Debridement (cm) - Length 1 0.7 0.1 -Area of Debridement (cm) - Width 0.5 0.5 0.1 -Total Square (Area) (cm) 0.5 0.35 0.01 -Tunneling No No No -Undermining/Tunneling No No No -Circular Undermining No No No -Wound/Ulcer Outcome Not Healed Not Healed Not Healed -Ulcer Cleansing Rinsed/ Rinsed/ Irrigated with Irrigated with Saline Saline -Foul Odor after Cleansing No No -Bioengineered Tissue No No -Bleeding Controlled with Pressure Pressure NA -Treatment Response Procedure Procedure Tolerated Well Tolerated Well -Debridement - Subq, 1st 20sq cm Yes Yes #3 LLE Lat Cluster -Time 12:05 10:04 12:15 -Correct Patient Yes Yes Yes -Correct Side, Site, Position Yes Yes Yes -Correct Procedure Yes Yes Yes -Procedure Performed Yes Yes Yes -Type of Procedure Debridement Debridement Debridement -Clinical Debridement Subcutaneous Subcutaneous Subcutaneous -Tissue Removed Subcutaneous Subcutaneous Subcutaneous -Post Debridement (cm) - Length 2.5 1.8 0.8 -Post Debridement (cm) - Width 1.6 1 0.4 -Post Debridement (cm) - Depth 0.1 0.1 0.1 -Total Square (Post) (cm) 4.00 1.8 0.32 -Area of Debridement (cm) - Length 2.5 1.8 0.8 -Area of Debridement (cm) - Width 1.6 1 0.4 -Total Square (Area) (cm) 4.00 1.8 0.32 -Tunneling No No No -Undermining/Tunneling No No No -Circular Undermining No No -Wound/Ulcer Outcome Not Healed Not Healed Not Healed -Ulcer Cleansing Rinsed/ Rinsed/ Rinsed/ Irrigated with Irrigated with Irrigated with Saline Saline Saline -Foul Odor after Cleansing No No No -Bioengineered Tissue No No -Bleeding Controlled with Pressure Pressure Pressure -Treatment Response Procedure Procedure Tolerated Well Tolerated Well -Debridement - Subq, 1st 20sq cm No No Yes Pain Scale: 0-10 Numeric Is Patient Pain Free? Yes Yes Yes 05/08/25 08:41 Wound Center Nurse 2 #5 LLE med -Time -Correct Patient -Correct Side, Site, Position -Correct Procedure -Procedure Performed -Type of Procedure -Clinical Debridement -Tissue Removed -Post Debridement (cm) - Length -Post Debridement (cm) - Width -Post Debridement (cm) - Depth -Total Square (Post) (cm) -Area of Debridement (cm) - Length -Area of Debridement (cm) - Width -Total Square (Area) (cm) -Tunneling -Undermining/Tunneling -Circular Undermining -Wound/Ulcer Outcome -Ulcer Cleansing -Foul Odor after Cleansing -Bioengineered Tissue -Bleeding Controlled with -Treatment Response -Debridement - Subq, 1st 20sq cm #3 LLE Lat Cluster -Time 08:41 -Correct Patient -Correct Side, Site, Position -Correct Procedure -Procedure Performed No -Type of Procedure -Clinical Debridement -Tissue Removed -Post Debridement (cm) - Length 0.1 -Post Debridement (cm) - Width 0.1 -Post Debridement (cm) - Depth 0.1 -Total Square (Post) (cm) 0.01 -Area of Debridement (cm) - Length 0.1 -Area of Debridement (cm) - Width 0.1 -Total Square (Area) (cm) 0.01 -Tunneling -Undermining/Tunneling -Circular Undermining -Wound/Ulcer Outcome Not Healed -Ulcer Cleansing -Foul Odor after Cleansing -Bioengineered Tissue -Bleeding Controlled with NA -Treatment Response -Debridement - Subq, 1st 20sq cm Pain Scale: 0-10 Numeric Is Patient Pain Free? Yes - Nurse 3 - General Ulcer D/C NN Start: 04/14/25 11:01 Freq: Status: Active Protocol: Activity Type Activity Date Activity User E-sign Co-sign Detail Recorded Client Recorded Date Recorded By Document 04/14/25 11:01 JF [id number] 04/14/25 11:02 JF Document 04/17/25 12:25 DL [id number] 04/17/25 12:26 DL Document 04/21/25 08:12 KW [id number] 04/21/25 08:14 KW Document 04/24/25 10:36 DL [id number] 04/24/25 10:37 DL Document 04/28/25 11:21 KW [id number] 04/28/25 11:23 KW Document 05/01/25 12:11 DL [id number] 05/01/25 12:13 DL Document 05/05/25 13:03 DL [id number] 05/05/25 13:21 DL Document 05/08/25 09:09 DL [id number] 05/08/25 09:10 DL 04/14/25 04/17/25 04/21/25 11:01 12:25 08:12 Pain Scale: 0-10 Numeric Is Patient Pain Free? Yes Yes Yes Wound Care Center Nurse 3 #5 LLE med -Ulcer Cleansing Soap and Water Soap and Water Soap and Water -Foul Odor after Cleansing -Primary Dressing Applied Promogran Promogran Renuka Matter Renuka Matter -Other Dressing pt own renuka -Primary Dressing Covered/Secured with Dry Gauze Dry Gauze -Other Covering unna -Promogran Renuka Matter 1 1 #3 LLE Lat Cluster -Ulcer Cleansing Soap and Water Soap and Water -Foul Odor after Cleansing No -Other Dressing renuka ptown renuka -Primary Dressing Covered/Secured with Dry Gauze -Other Covering unna -Wound Comment(s) LLE -Multi-Layered Wrap Application -Unna- Left (Qty applied) BLE -Multi-Layered Wrap Application Unna Boot - Unna Boot - Unna Boot - Bilateral Bilateral Bilateral -Stockings -Unna- Bilat (Qty applied) 1 1 1 Treatment Response Procedure Tolerated Well WC - Visit Discharge Discharge Condition Stable Stable Stable Ambulatory Status Ambulatory, Ambulatory Ambulatory, Walker Walker Transportation Private Auto Private Auto Private Auto Accompanied by Medication Reconcilliation completed & No provided to patient/care provider Clinical Summary of Care Provided Yes Facility Type Home Health Orders Sent Yes 04/24/25 04/28/25 05/01/25 10:36 11:21 12:11 Pain Scale: 0-10 Numeric Is Patient Pain Free? Yes Yes Yes Wound Care Center Nurse 3 #5 LLE med -Ulcer Cleansing Rinsed/ Soap and Water Irrigated with Saline -Foul Odor after Cleansing No -Primary Dressing Applied NonAdherent Contact Layer -Other Dressing Renuka pt own renuka -Primary Dressing Covered/Secured with -Other Covering -Promogran Renuka Matter #3 LLE Lat Cluster -Ulcer Cleansing Rinsed/ Soap and Water Rinsed/ Irrigated with Irrigated with Saline Saline -Foul Odor after Cleansing No -Other Dressing Renuka pt own renuka RENUKA with adaptic -Primary Dressing Covered/Secured with -Other Covering -Wound Comment(s) RLE STOCKINGS LLE -Multi-Layered Wrap Application Unna Boot - Left -Unna- Left (Qty applied) 1 BLE -Multi-Layered Wrap Application Unna Boot - Unna Boot - Bilateral Bilateral -Stockings -Unna- Bilat (Qty applied) 1 1 Treatment Response Procedure Procedure Tolerated Well Tolerated Well WC - Visit Discharge Discharge Condition Stable Stable Stable Ambulatory Status Ambulatory, Ambulatory, Ambulatory, Walker Walker Walker Transportation Private Auto Private Auto Private Auto Accompanied by family Medication Reconcilliation completed & No provided to patient/care provider Clinical Summary of Care Provided Yes Facility Type Orders Sent 05/05/25 05/08/25 13:03 09:09 Pain Scale: 0-10 Numeric Is Patient Pain Free? Yes Yes Wound Care Center Nurse 3 #5 LLE med -Ulcer Cleansing -Foul Odor after Cleansing -Primary Dressing Applied -Other Dressing -Primary Dressing Covered/Secured with -Other Covering -Promogran Renuka Matter #3 LLE Lat Cluster -Ulcer Cleansing Soap and Water Soap and Water -Foul Odor after Cleansing No No -Other Dressing renuka No Dressing -Primary Dressing Covered/Secured with -Other Covering Unna -Wound Comment(s) LLE -Multi-Layered Wrap Application Unna Boot - Left -Unna- Left (Qty applied) 1 BLE -Multi-Layered Wrap Application -Stockings Yes -Unna- Bilat (Qty applied) Treatment Response Procedure Procedure Tolerated Well Tolerated Well WC - Visit Discharge Discharge Condition Stable Stable Ambulatory Status Ambulatory, Ambulatory, Walker Walker Transportation Private Auto Private Auto Accompanied by family family Medication Reconcilliation completed & provided to patient/care provider Clinical Summary of Care Provided Facility Type Orders Sent Assessment/Plan Assessment/Plan (1) Non-pressure chronic ulcer of left calf with fat layer exposed: CODE(S): L97.222 - Non-pressure chronic ulcer of left calf with fat layer exposed (2) Venous insufficiency (chronic) (peripheral): CODE(S): I87.2 - Venous insufficiency (chronic) (peripheral) (3) Lipodermatosclerosis of both lower extremities: CODE(S): M79.3 - Panniculitis, unspecified (4) Diabetes mellitus with diabetic polyneuropathy: CODE(S): E11.42 - Type 2 diabetes mellitus with diabetic polyneuropathy QUALIFIERS: Diabetes mellitus type: type 2 (5) Diabetes mellitus with ulcer of calf: CODE(S): E11.622 - Type 2 diabetes mellitus with other skin ulcer; L97.209- Non- pressure chronic ulcer of unspecified calf with unspecified severity (6) Bilateral lower extremity edema: CODE(S): R60.0 - Localized edema PLAN: Plan Patient seen and evaluated Predebridement ulceration measurement: Right lower extremity healed Left medial lower extremity healed Left lateral lower extremity 0.1 cm x 0.1 cm x 0.1 cm Ulceration did not undergo debridement as noted in the clinical panel above. Postdebridement measurement: Left medial lower extremity healed; left lateral lower extremity 0.1 cm x 0.1 cm x 0.1 cm. Compression stocking to bilateral lower extremity. There is continued reduction in size ulcerative sites versus his previous visit.He is healing well at this time. It has been discussed with the patient that he is to continue to sleep on flat mattress at night with leg elevation as much as possible at night and throughoutthe day to be heart level or higher. He has been advised against prolonged sitting. 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 He is nearly finished with prescription. He has been advised to not pick at any dry skin or excessively scrub while in the shower to preventopening of ulcerations as his skin is friable. Skin continues to improve via use of Unna boot compression but with wound nearlyhealed we will transition to his traditional compression stocking. Discussed signs and symptoms of infection. Discussed if he notices increasing redness about his legs moving up the leg, if he notices any purulent drainage from his wound sites, increasing foul odor from the wound sites, or if he experiences fever greater than 101 degree accompanied by nausea, vomiting, chills that these are signs of a progressing infection and he should report to the ED for IV antibiotic and further evaluation. He is understanding of this today. The following work up and care recommendations were made: Dressing: Compression stocking bilateral lower extremity Wash: Soap and water Tissue growth optimization: None Offload: Compression stocking Vascular: Vascular status not impeding healing, chronic venous stasis and lipodermatosclerosis do complicate healing. Edema: Compression stocking and elevation of lower extremities at all times of rest. Infection: No signs of infection currently. Will finish oral linezolid and continue with intranasalmupirocin. Pain: May take [id number] Tylenol Extra Strength for any discomfort. Currently no pain secondary to diabetic peripheral polyneuropathy Host factors: DM type II with peripheral polyneuropathy, lipodermatosclerosis/chronic venous stasisto complicate healing. I answered all the patient's questions. To return to the wound healing center in 1 week or call sooner if the patient has any questions or concerns. 05/08/25 0935 Cosigner Signature (if applicable): CC: ~ Signed [facility]06-19-2025 Progress note Author Shady Ogden [facility] Note Date/Time May 01, 2025 12:1 8pm [facility] [address] [place] [address] Progress Note - Wound Care 05/01/25 1203 MR#: [id number] Acct: [id number] Name: ANDER MONTEIRO Rep #:[id number] : 1950 74 From: Shady hernandez DPM PCP: Dr. Feredom Sutton MD Status:REG R CR Location: History of Present Illness Date of Service: 05/01/25 Chief Complaint: Venous stasis ulceration left lower extremity History of Wound: This is a 74-year-old male who presents to the wound care center for continued aid in healing of a venous stasis ulceration to the lateralaspect of the left lower extremity. Ulceration is secondary to chronic venous insufficiency and lower extremity edema. He had been unable to wear his compression stockings due to significant edema and previous heart failure. 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 This did lead to improvement in lower extremity edema however still does get swelling secondary to his chronic venous insufficiency which did lead to ulceration to the lateral aspect of the left leg. He had been undergoing local wound care in office over the course of 6 weeks with applications of Renuka however ulceration has failed to improve with this and compression stocking. Hecontinues to change dressing daily with Renuka and does have visiting nursing toassist in dressing changes. States that he continues to wear his compression stocking and tries to elevate when possible. He does assist in care for his so elevation at all times of rest poses difficulty. Denies trauma to the leg. Denies N/V/F/chills/SOB. Denies further complaints. Subjective Subjective This is a 74-year-old male who presents to the wound care center for continued care of bilateral lower extremity venous stasis ulcerations. He continues Unna boot compression and is tolerating this well. He continues his 80 mg furosemidedaily and notices that this continues to control edema body wide. He is attempting to continue to elevate legs is much as possible. Reports remainsin extended care at [place] where she still continues to fight. He continues tovisit her daily. Accompanied by daughter in law who notes wounds continue improving with one wound healed. He denies constitutional symptoms. Denies further complaints today. Objective Data Objective Data Vital Signs: Vital Signs Temp Pulse Resp BP O2 Del Method 98 F 70 18 130/87 H Room Air 05/01/25 11:27 05/01/25 11:27 05/01/25 11:27 05/01/25 11:27 04/28/25 11:21 Oxygen Delivery Method Room Air Weight: 105.994 kg Body Mass Index (BMI) 35.5 Physical Exam Const alert, oriented x3 and no apparent distress General Appearance: cooperative HEENT normocephalic Eyes General Eye: normal appearance of both eyes Neck General: normal visual inspection Lymph Lymphatic: no lymphadenopathy noted and no lymphedema noted Resp normal respiratory effort Cardio regular rate and regular rhythm Extremity no calf tenderness Extremity Narrative: Bilateral lower extremity: Vascular: DP and PT pulses weakly palpable. CFT is less than 5 seconds to digits. Normal temperature gradient. Hair growth is absent to digits. Neurologic: Gross sensation intact. There is decreased protective sensation consistent with diabetic peripheral polyneuropathy. Musculoskeletal: Muscle strength 5 of 5 age-appropriate. There is decreased range of motion of the ankle joint dorsiflexion with the knee extended without pain or crepitus bilateral. There is decreased range of motion of the first metatarsophalangeal joint without pain or crepitus bilateral. No pain to palpation of calf bilateral. Dermatologic: Bilateral lower extremities demonstrate lipodermatosclerosis with hyperpigmentation to the pretibial region. Previous scaling/eczematous skin improved following compression of Unna boot therapy. Full-thickness ulceration to the right lower extremity remains healed. There are 2 full-thickness ulcerations to the left lower extremity 1 medial and 1 lateral. Medial ulceration has now healed. Lateral ulceration demonstrate mixed fibrogranular layer, but are improving. No signs of infection. Skin no rashes or lesions noted General Skin Exam: venous stasis and dermatitis Neuro moves all extremities Debridement Note Debridement Note Wound debrided: Left lateral lower extremity Laterality: Left Wound Grade/Stage: Swain stage I Type of Debridement: Excisional debridement Anesthesia Used: 5% Lidocaine Gel Depth: Down to and including healthy tissue and in the subcutaneous layer Percentage of wound debrided: 100 Instrument Used: 5mm curette Tissue Removed: Fibrous, devitalized subcutaneous, biofilm, slough Severity: Fat Layer Exposed Amount of bleeding with debridement: Mild Bleeding Controlled with: Compression and gauze Patient tolerated procedure: Patient tolerated procedure well Post-Debridement Measurements and Additional Note: Post-Debridement Measurements/Treatment - Nurse 1 - General Ulcer Assessment Start: 04/14/25 11:01 Freq: Status: Active Protocol: LIZZY Activity Type Activity Date Activity User E-sign Co-sign Detail Recorded Client Recorded Date Recorded By Document 04/14/25 11:01 [id number] 04/14/25 11:02 Document 04/17/25 11:32 KW [id number] 04/17/25 11:45 KW Document 04/21/25 08:12 KW [id number] 04/21/25 08:14 KW Document 04/24/25 09:29 DL [id number] 04/24/25 09:45 DL Document 04/28/25 11:21 KW [id number] 04/28/25 11:23 KW Document 05/01/25 11:27 DL [id number] 05/01/25 11:41 DL 04/14/25 04/17/25 04/21/25 11:01 11:32 08:12 - Today's Visit Information Type of service Nurse-only Follow-up Visit Nurse-only Visit (Physician/INTERVENTION TEACHER Visit ) Arrival Mode Ambulatory, Ambulatory, Ambulatory, Walker Walker Walker Transfer Assistance Accompanied by DIL daughter in law Patient Identification Verified (Name & Yes Yes Yes ) Patient Requires Transmission-Based No Precautions Height and Weight Body Mass Index (BMI) 35.5 35.5 35.5 BMI Classification Obese Obese Obese Vital Signs Temperature (97.8 F-99.1 F) 98.3 F 98.2 F 97.8 F Temperature Source Temporal Temporal Temporal Pulse Rate (60-100) 70 67 66 Pulse Location Monitor Monitor Monitor Respiratory Rate (12-18) 16 18 18 Respiratory rate source Observation Observation Observation Oxygen Delivery Method Room Air Room Air Blood Pressure (90/60-120/80) 118/58 L 124/54 H 131/47 H Blood Pressure Mean (mm Hg) 78 77 75 Source Monitor Monitor Monitor Position Semi-Fowlers Semi-Fowlers Semi-Fowlers Blood Pressure Location Left Arm Left Arm Right Forearm History Since Last Visit- (Skip if this is Patient's initial visit) Have you changed medications since your No No last visit? Any new allergies or adverse reactions No No Had a fall/change in ADL's that may No No increase risk of falls Signs or symptoms of abuse and/or No No neglect since last visit Have you been in the hospital since your No No last visit? Has dressing in place as prescribed Yes Yes Has compression in place as prescribed Yes Yes Has offloadiing in place as prescribed Yes N/A Experienced any changes in pain level or No No management Left Footwear Regular Shoe Regular Shoe Regular Shoe Right Footwear Regular Shoe Regular Shoe Regular Shoe Pain Scale: 0-10 Numeric Is Patient Pain Free? Yes Yes Yes 04/24/25 04/28/25 05/01/25 09:29 11:21 11:27 - Today's Visit Information Type of service Follow-up Visit Nurse-only Follow-up Visit (Physician/INTERVENTION TEACHER Visit (Physician/INTERVENTION TEACHER ) ) Arrival Mode Ambulatory, Ambulatory, Ambulatory, Walker Walker Walker Transfer Assistance None None Accompanied by daughter Patient Identification Verified (Name & Yes Yes Yes ) Patient Requires Transmission-Based No No Precautions Height and Weight Body Mass Index (BMI) 35.5 35.5 35.5 BMI Classification Obese Obese Obese Vital Signs Temperature (97.8 F-99.1 F) 97.6 F L 96.6 F L 98 F Temperature Source Temporal Temporal Temporal Pulse Rate (60-100) 67 64 70 Pulse Location Monitor Monitor Monitor Respiratory Rate (12-18) 18 16 18 Respiratory rate source Observation Observation Observation Oxygen Delivery Method Room Air Blood Pressure (90/60-120/80) 116/64 114/48 L 130/87 H Blood Pressure Mean (mm Hg) 81 70 101 Source Monitor Monitor Monitor Position Semi-Fowlers Blood Pressure Location Left Arm History Since Last Visit- (Skip if this is Patient's initial visit) Have you changed medications since your No No No last visit? Any new allergies or adverse reactions No No No Had a fall/change in ADL's that may No No No increase risk of falls Signs or symptoms of abuse and/or No No No neglect since last visit Have you been in the hospital since your No No No last visit? Has dressing in place as prescribed Yes Yes Yes Has compression in place as prescribed Yes Yes Yes Has offloadiing in place as prescribed Yes N/A N/A Experienced any changes in pain level or No No No management Left Footwear Regular Shoe Right Footwear Regular Shoe Pain Scale: 0-10 Numeric Is Patient Pain Free? Yes Yes Yes WC - Nurse 1 - General Ulcer Measurement Start: 04/14/25 11:01 Freq: Status: Active Protocol: Activity Type Activity Date Activity User E-sign Co-sign Detail Recorded Client Recorded Date Recorded By Document 04/14/25 11:01 JF [id number] 04/14/25 11:02 JF Document 04/17/25 11:32 KW [id number] 04/17/25 11:45 KW Document 04/21/25 08:14 KW [id number] 04/21/25 08:14 KW Document 04/24/25 09:29 DL [id number] 04/24/25 09:45 DL Document 05/01/25 11:27 DL [id number] 05/01/25 11:41 DL 04/14/25 04/17/25 04/21/25 11:01 11:32 08:14 Wound Center Nurse 1 #5 LLE med -Current Size (cm) - Length 0.1 -Current Size (cm) - Width 0.1 -Current Size (cm) - Depth 0.1 -Total Square Cm 0.01 -Date of Last Picture (Recall this 04/17/25 field) -Exudate Amt Small -Exudate Type Serosanguineous -Wound Margin Distinct, Outline Attached -Granulation Amt Large (67-100%) -Granulation Quality Red -Necrosis Amt -Necrotic Tissue Type -Structure Exposed -Texture (Lyndsey-wound Skin Appearance) Assessed -Moisture (Lyndsey-wound Skin Appearance) Assessed -Color (Lyndsey-wound Skin Appearance) Assessed, Hemosiderin Staining -Temperature (Lyndsey-wound Skin No Abnormality Appearance) (Pt Warm) -Tenderness on Palpation (Lyndsey-wound Skin Appearance) -Ulcer Cleansing Soap and Water -Foul Odor after Cleansing No -Anesthetic Used 5% Lidocaine Gel -Wound Comment(s) not measured during nurse 1 #3 LLE Lat Cluster -Current Size (cm) - Length 0.1 -Current Size (cm) - Width 0.1 -Current Size (cm) - Depth 0.1 -Total Square Cm 0.01 -Date of Last Picture (Recall this 04/17/25 field) -Exudate Amt Small -Exudate Type Serosanguineous -Wound Margin Distinct, Outline Attached -Granulation Amt Large (67-100%) -Granulation Quality Red -Necrosis Amt -Necrotic Tissue Type -Structure Exposed -Texture (Lyndsey-wound Skin Appearance) Assessed -Moisture (Lyndsey-wound Skin Appearance) Assessed -Color (Lyndsey-wound Skin Appearance) Assessed, Hemosiderin Staining -Temperature (Lyndsey-wound Skin No Abnormality Appearance) (Pt Warm) -Tenderness on Palpation (Lyndsey-wound No Skin Appearance) -Ulcer Cleansing Soap and Water -Foul Odor after Cleansing No -Anesthetic Used 5% Lidocaine Gel -Wound Comment(s) not measured during nurse 1 Lower Limb Edema Present NA Right Calf (cm) 34.5 35.2 Right Ankle (cm) 26.5 25.3 Left Calf (cm) 35.5 35.2 Left Ankle (cm) 27 25.8 04/24/25 05/01/25 09:29 11:27 Wound Center Nurse 1 #5 LLE med -Current Size (cm) - Length 0.6 0.1 -Current Size (cm) - Width 0.4 0.1 -Current Size (cm) - Depth 0.2 0.1 -Total Square Cm 0.24 0.01 -Date of Last Picture (Recall this field) -Exudate Amt Small None Present -Exudate Type Serosanguineous -Wound Margin Distinct, Thickened Outline Attached -Granulation Amt Small (1-33%) None Present (0 %) -Granulation Quality Red -Necrosis Amt Small (1-33%) Small (1-33%) -Necrotic Tissue Type Adherent Slough Eschar -Structure Exposed N/A N/A -Texture (Lyndsey-wound Skin Appearance) Scarring Scarring -Moisture (Lyndsey-wound Skin Appearance) No Abnormality -Color (Lyndsey-wound Skin Appearance) Hemosiderin Hemosiderin Staining Staining -Temperature (Lyndsey-wound Skin No Abnormality No Abnormality Appearance) (Pt Warm) (Pt Warm) -Tenderness on Palpation (Lyndsey-wound No Skin Appearance) -Ulcer Cleansing Not Cleansed Soap and Water -Foul Odor after Cleansing No No -Anesthetic Used 5% Lidocaine 5% Lidocaine Gel Gel -Wound Comment(s) #3 LLE Lat Cluster -Current Size (cm) - Length 1.6 0.5 -Current Size (cm) - Width 1 0.4 -Current Size (cm) - Depth 0.2 0.1 -Total Square Cm 1.6 0.20 -Date of Last Picture (Recall this field) -Exudate Amt Medium Small -Exudate Type Serosanguineous Serosanguineous -Wound Margin Distinct, Distinct, Outline Outline Attached Attached -Granulation Amt Large (67-100%) Small (1-33%) -Granulation Quality Red Red -Necrosis Amt None Present (0 Small (1-33%) %) -Necrotic Tissue Type Adherent Slough -Structure Exposed N/A N/A -Texture (Lyndsey-wound Skin Appearance) Scarring Scarring -Moisture (Lyndsey-wound Skin Appearance) No Abnormality No Abnormality -Color (Lyndsey-wound Skin Appearance) Hemosiderin No Abnormality Staining -Temperature (Lyndsey-wound Skin No Abnormality No Abnormality Appearance) (Pt Warm) (Pt Warm) -Tenderness on Palpation (Lyndsey-wound No Skin Appearance) -Ulcer Cleansing Soap and Water Soap and Water -Foul Odor after Cleansing No No -Anesthetic Used 5% Lidocaine 5% Lidocaine Gel Gel -Wound Comment(s) Lower Limb Edema Present Right Calf (cm) 34 34 Right Ankle (cm) 24.5 25.2 Left Calf (cm) 34 34 Left Ankle (cm) 25.2 25.6 WC - Nurse 2 - General Ulcer CM Notes Start: 04/14/25 11:01 Freq: Status: Active Protocol: Activity Type Activity Date Activity User E-sign Co-sign Detail Recorded Client Recorded Date Recorded By Document 04/17/25 12:04 [facility] [id number] 04/17/25 12:08 [facility] Document 04/24/25 10:03 [facility] [id number] 04/24/25 10:08 [facility] 04/17/25 04/24/25 12:04 10:03 Wound Center Nurse 2 #5 JOSHUA med -Time 12:04 10:04 -Correct Patient Yes Yes -Correct Side, Site, Position Yes Yes -Correct Procedure Yes Yes -Procedure Performed Yes Yes -Type of Procedure Debridement Debridement -Clinical Debridement Subcutaneous Subcutaneous -Tissue Removed Subcutaneous Subcutaneous -Post Debridement (cm) - Length 1 0.7 -Post Debridement (cm) - Width 0.5 0.5 -Post Debridement (cm) - Depth 0.1 0.1 -Total Square (Post) (cm) 0.5 0.35 -Area of Debridement (cm) - Length 1 0.7 -Area of Debridement (cm) - Width 0.5 0.5 -Total Square (Area) (cm) 0.5 0.35 -Tunneling No No -Undermining/Tunneling No No -Circular Undermining No No -Wound/Ulcer Outcome Not Healed Not Healed -Ulcer Cleansing Rinsed/ Rinsed/ Irrigated with Irrigated with Saline Saline -Foul Odor after Cleansing No No -Bioengineered Tissue No No -Bleeding Controlled with Pressure Pressure -Treatment Response Procedure Procedure Tolerated Well Tolerated Well -Debridement - Subq, 1st 20sq cm Yes Yes #3 JOSHUA Lat Cluster -Time 12:05 10:04 -Correct Patient Yes Yes -Correct Side, Site, Position Yes Yes -Correct Procedure Yes Yes -Procedure Performed Yes Yes -Type of Procedure Debridement Debridement -Clinical Debridement Subcutaneous Subcutaneous -Tissue Removed Subcutaneous Subcutaneous -Post Debridement (cm) - Length 2.5 1.8 -Post Debridement (cm) - Width 1.6 1 -Post Debridement (cm) - Depth 0.1 0.1 -Total Square (Post) (cm) 4.00 1.8 -Area of Debridement (cm) - Length 2.5 1.8 -Area of Debridement (cm) - Width 1.6 1 -Total Square (Area) (cm) 4.00 1.8 -Tunneling No No -Undermining/Tunneling No No -Circular Undermining No -Wound/Ulcer Outcome Not Healed Not Healed -Ulcer Cleansing Rinsed/ Rinsed/ Irrigated with Irrigated with Saline Saline -Foul Odor after Cleansing No No -Bioengineered Tissue No -Bleeding Controlled with Pressure Pressure -Treatment Response Procedure Procedure Tolerated Well Tolerated Well -Debridement - Subq, 1st 20sq cm No No Pain Scale: 0-10 Numeric Is Patient Pain Free? Yes Yes - Nurse 3 - General Ulcer D/C NN Start: 04/14/25 11:01 Freq: Status: Active Protocol: Activity Type Activity Date Activity User E-sign Co-sign Detail Recorded Client Recorded Date Recorded By Document 04/14/25 11:01 JF [id number] 04/14/25 11:02 JF Document 04/17/25 12:25 DL [id number] 04/17/25 12:26 DL Document 04/21/25 08:12 KW [id number] 04/21/25 08:14 KW Document 04/24/25 10:36 DL [id number] 04/24/25 10:37 DL Document 04/28/25 11:21 KW [id number] 04/28/25 11:23 KW 04/14/25 04/17/25 04/21/25 11:01 12:25 08:12 Pain Scale: 0-10 Numeric Is Patient Pain Free? Yes Yes Yes Wound Care Center Nurse 3 #5 LLE med -Ulcer Cleansing Soap and Water Soap and Water Soap and Water -Foul Odor after Cleansing -Primary Dressing Applied Promogran Promogran Renuka Matter Renuka Matter -Other Dressing pt own renuka -Primary Dressing Covered/Secured with Dry Gauze Dry Gauze -Other Covering unna -Promogran Renuka Matter 1 1 #3 LLE Lat Cluster -Ulcer Cleansing Soap and Water Soap and Water -Foul Odor after Cleansing No -Other Dressing renuka ptown renuka -Primary Dressing Covered/Secured with Dry Gauze -Other Covering unna BLE -Multi-Layered Wrap Application Unna Boot - Unna Boot - Unna Boot - Bilateral Bilateral Bilateral -Unna- Bilat (Qty applied) 1 1 1 Treatment Response Procedure Tolerated Well WC - Visit Discharge Discharge Condition Stable Stable Stable Ambulatory Status Ambulatory, Ambulatory Ambulatory, Walker Walker Transportation Private Auto Private Auto Private Auto Accompanied by Medication Reconcilliation completed & No provided to patient/care provider Clinical Summary of Care Provided Yes Facility Type Home Health Orders Sent Yes 04/24/25 04/28/25 10:36 11:21 Pain Scale: 0-10 Numeric Is Patient Pain Free? Yes Yes Wound Care Center Nurse 3 #5 LLE med -Ulcer Cleansing Rinsed/ Soap and Water Irrigated with Saline -Foul Odor after Cleansing No -Primary Dressing Applied NonAdherent Contact Layer -Other Dressing Renuka pt own renuka -Primary Dressing Covered/Secured with -Other Covering -Promogran Renuka Matter #3 LLE Lat Cluster -Ulcer Cleansing Rinsed/ Soap and Water Irrigated with Saline -Foul Odor after Cleansing No -Other Dressing Renuka pt own renuka with adaptic -Primary Dressing Covered/Secured with -Other Covering BLE -Multi-Layered Wrap Application Unna Boot - Unna Boot - Bilateral Bilateral -Unna- Bilat (Qty applied) 1 1 Treatment Response Procedure Tolerated Well WC - Visit Discharge Discharge Condition Stable Stable Ambulatory Status Ambulatory, Ambulatory, Walker Walker Transportation Private Auto Private Auto Accompanied by family Medication Reconcilliation completed & No provided to patient/care provider Clinical Summary of Care Provided Yes Facility Type Orders Sent Assessment/Plan Assessment/Plan (1) Non-pressure chronic ulcer of left calf with fat layer exposed: CODE(S): L97.222 - Non-pressure chronic ulcer of left calf with fat layer exposed (2) Venous insufficiency (chronic) (peripheral): CODE(S): I87.2 - Venous insufficiency (chronic) (peripheral) (3) Lipodermatosclerosis of both lower extremities: CODE(S): M79.3 - Panniculitis, unspecified (4) Diabetes mellitus with diabetic polyneuropathy: CODE(S): E11.42 - Type 2 diabetes mellitus with diabetic polyneuropathy QUALIFIERS: Diabetes mellitus type: type 2 (5) Diabetes mellitus with ulcer of calf: CODE(S): E11.622 - Type 2 diabetes mellitus with other skin ulcer; L97.209- Non-pressure chronic ulcer of unspecified calf with unspecified severity (6) Bilateral lower extremity edema: CODE(S): R60.0 - Localized edema PLAN: Plan Patient seen and evaluated Predebridement ulceration measurement: Right lower extremity healed Left medial lower extremity healed Left lateral lower extremity 0.7 cm x 0.3 cm x 0.1 cm Ulceration underwent debridement as noted in the clinical panel above. Postdebridement measurement: Left medial lower extremity healed; left lateral lower extremity 0.8 cm x 0.4 cm x 0.1 cm. Renuka applied to ulcerative bases and left lower extremity Unna boot compression was applied. Compression stockingto right lower extremity. Will return on 05/05/2025 for Unna boot change with nurse visit. There is continued reduction in size ulcerative sites versus his previous visit.He is healing well at this time. It has been discussed with the patient that he is to continue to sleep on flat mattress at night with leg elevation as much as possible at night and throughoutthe day to be heart level or higher. He has been advised against prolonged sitting. 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 He has been advised to not pick at any dry skin or excessively scrub while in the shower to prevent opening of ulcerations as his skin is friable. Skin continues to improve via use of Unna boot compression. Discussed signs and symptoms of infection. Discussed if he notices increasing redness about his legs moving up the leg, if he notices any purulent drainage from his wound sites, increasing foul odor from the wound sites, or if he experiences fever greater than 101 degree accompanied by nausea, vomiting, chills that these are signs of a progressing infection and he should report to the ED for IV antibiotic and further evaluation. He is understanding of this today. The following work up and care recommendations were made: Dressing: Renuka to ulcerative bed. Unna boot compression left lower extremity.Compression stocking right lower extremity Wash: Do not get wet. Utilize cast bag when showering to maintain compliance for left lower extremity. Tissue growth optimization: Renuka Offload: Unna boot compression therapy/compression stocking Vascular: Vascular status not impeding healing, chronic venous stasis and lipodermatosclerosis do complicate healing. Edema: Unna boot compression therapy and elevation of lower extremities at all times of rest. Infection: No signs of infection currently. Will finish oral linezolid and continue with intranasal mupirocin. Pain: May take [id number] Tylenol Extra Strength for any discomfort. Currently no pain secondary to diabetic peripheral polyneuropathy Host factors: DM type II with peripheral polyneuropathy, lipodermatosclerosis/chronic venous stasis to complicate healing. He will return 05/05/2025 for change of Unna boot to left lower extremityas nurse visit. I answered all the patient's questions. To return to the wound healing center in 1 week or call sooner if the patient has any questions or concerns. 05/01/25 1218 <Electronically signed by Shady Ogden DPM> Cosigner Signature (if applicable): CC: ~ Signed [facility] Work Phone: 1(109) 717-808006-19-2025 Progress note [facility] [address] [place] [address] Progress Note - Wound Care 05/01/25 1203 MR#: [id number] Acct: [id number] Name: ANDER MONTEIRO Rep #:[id number] : 1950 74 From: Shady hernandez DPM PCP: Dr. Freedom Sutton MD Status:REG R CR Location: History of Present Illness Date of Service: 05/01/25 Chief Complaint: Venous stasis ulceration left lower extremity History of Wound: This is a 74-year-old male who presents to the wound care center for continued aid in healing of a venous stasis ulceration to the lateralaspect of the left lower extremity. Ulceration is secondary to chronic venous insufficiency and lower extremity edema. He had been unable to wear his compression stockings due to significant edema and previous heart failure. 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 This did lead to improvement in lower extremity edema however still does get swelling secondary to his chronic venous insufficiency which did lead to ulceration to the lateral aspect of the left leg. He had been undergoing local woundcare in office over the course of 6 weeks with applications of Renuka however ulceration has failedto improve with this and compression stocking. Hecontinues to change dressing daily with Renuka anddoes have visiting nursing toassist in dressing changes. States that he continues to wear his compression stocking and tries to elevate when possible. He does assist in care for his so elevationat all times of rest poses difficulty. Denies trauma to the leg. Denies N/V/F/chills/SOB. Denies further complaints. Subjective Subjective This is a 74-year-old male who presents to the wound care center for continued care of bilateral lower extremity venous stasis ulcerations. He continues Unna boot compression and is tolerating this well. He continues his 80 mg furosemidedaily and notices that this continues to control edema body wide. He is attempting to continue to elevate legs is much as possible. Reports remainsin extended care [facility] [place] where she still continues to fight. He continues tovisit her daily. Accompanied bydaughter in law who notes wounds continue improving with one wound healed. He denies constitutionalsymptoms. Denies further complaints today. Objective Data Objective Data Vital Signs: Vital Signs Temp Pulse Resp BP O2 Del Method 98 F 70 18 130/87 H Room Air 05/01/25 11:27 05/01/25 11:27 05/01/25 11:27 05/01/25 11:27 04/28/25 11:21 Oxygen Delivery Method Room Air Weight: 105.994 kg Body Mass Index (BMI) 35.5 Physical Exam Const alert, oriented x3 and no apparent distress General Appearance: cooperative HEENT normocephalic Eyes General Eye: normal appearance of both eyes Neck General: normal visual inspection Lymph Lymphatic: no lymphadenopathy noted and no lymphedema noted Resp normal respiratory effort Cardio regular rate and regular rhythm Extremity no calf tenderness Extremity Narrative: Bilateral lower extremity: Vascular: DP and PT pulses weakly palpable. CFT is less than 5 seconds to digits. Normal temperature gradient. Hair growth is absent to digits. Neurologic: Gross sensation intact. There is decreased protective sensation consistent with diabetic peripheral polyneuropathy. Musculoskeletal: Muscle strength 5 of 5 age-appropriate. There is decreased range of motion of the ankle joint dorsiflexion with the knee extended without pain or crepitus bilateral. There is decreased range of motion of the first metatarsophalangeal joint without pain or crepitus bilateral. No pain to palpation of calf bilateral. Dermatologic: Bilateral lower extremities demonstrate lipodermatosclerosis with hyperpigmentation to the pretibial region. Previous scaling/eczematous skin improved following compression of Unna boottherapy. Full-thickness ulceration to the right lower extremity remains healed. There are 2 full-thickness ulcerations to the left lower extremity 1 medial and 1 lateral. Medial ulceration has now healed. Lateral ulceration demonstrate mixed fibrogranular layer, but are improving. No signs of infection. Skin no rashes or lesions noted General Skin Exam: venous stasis and dermatitis Neuro moves all extremities Debridement Note Debridement Note Wound debrided: Left lateral lower extremity Laterality: Left Wound Grade/Stage: Swain stage I Type of Debridement: Excisional debridement Anesthesia Used: 5% Lidocaine Gel Depth: Down to and including healthy tissue and in the subcutaneous layer Percentage of wound debrided: 100 Instrument Used: 5mm curette Tissue Removed: Fibrous, devitalized subcutaneous, biofilm, slough Severity: Fat Layer Exposed Amount of bleeding with debridement: Mild Bleeding Controlled with: Compression and gauze Patient tolerated procedure: Patient tolerated procedure well Post-Debridement Measurements and Additional Note: Post-Debridement Measurements/Treatment - Nurse 1 - General Ulcer Assessment Start: 04/14/25 11:01 Freq: Status: Active Protocol: CLAUDETTEBetter Bean[employer]recia Activity Type Activity Date Activity User E-sign Co-sign Detail Recorded Client Recorded Date Recorded By Document 04/14/25 11:01 JF [id number] 04/14/25 11:02 JF Document 04/17/25 11:32 KW [id number] 04/17/25 11:45 KW Document 04/21/25 08:12 KW [id number] 04/21/25 08:14 KW Document 04/24/25 09:29 DL [id number] 04/24/25 09:45 DL Document 04/28/25 11:21 KW [id number] 04/28/25 11:23 KW Document 05/01/25 11:27 DL [id number] 05/01/25 11:41 DL 04/14/25 04/17/25 04/21/25 11:01 11:32 08:12 - Today's Visit Information Type of service Nurse-only Follow-up Visit Nurse-only Visit (Physician/INTERVENTION TEACHER Visit ) Arrival Mode Ambulatory, Ambulatory, Ambulatory, Walker Walker Walker Transfer Assistance Accompanied by DIL daughter in law Patient Identification Verified (Name & Yes Yes Yes ) Patient Requires Transmission-Based No Precautions Height and Weight Body Mass Index (BMI) 35.5 35.5 35.5 BMI Classification Obese Obese Obese Vital Signs Temperature (97.8 F-99.1 F) 98.3 F 98.2 F 97.8 F Temperature Source Temporal Temporal Temporal Pulse Rate (60-100) 70 67 66 Pulse Location Monitor Monitor Monitor Respiratory Rate (12-18) 16 18 18 Respiratory rate source Observation Observation Observation Oxygen Delivery Method Room Air Room Air Blood Pressure (90/60-120/80) 118/58 L 124/54 H 131/47 H Blood Pressure Mean (mm Hg) 78 77 75 Source Monitor Monitor Monitor Position Semi-Fowlers Semi-Fowlers Semi-Fowlers Blood Pressure Location Left Arm Left Arm Right Forearm History Since Last Visit- (Skip if this is Patient's initial visit) Have you changed medications since your No No last visit? Any new allergies or adverse reactions No No Had a fall/change in ADL's that may No No increase risk of falls Signs or symptoms of abuse and/or No No neglect since last visit Have you been in the hospital since your No No last visit? Has dressing in place as prescribed Yes Yes Has compression in place as prescribed Yes Yes Has offloadiing in place as prescribed Yes N/A Experienced any changes in pain level or No No management Left Footwear Regular Shoe Regular Shoe Regular Shoe Right Footwear Regular Shoe Regular Shoe Regular Shoe Pain Scale: 0-10 Numeric Is Patient Pain Free? Yes Yes Yes 04/24/25 04/28/25 05/01/25 09:29 11:21 11:27 WC - Today's Visit Information Type of service Follow-up Visit Nurse-only Follow-up Visit (Physician/INTERVENTION TEACHER Visit (Physician/INTERVENTION TEACHER ) ) Arrival Mode Ambulatory, Ambulatory, Ambulatory, Walker Walker Walker Transfer Assistance None None Accompanied by daughter Patient Identification Verified (Name & Yes Yes Yes ) Patient Requires Transmission-Based No No Precautions Height and Weight Body Mass Index (BMI) 35.5 35.5 35.5 BMI Classification Obese Obese Obese Vital Signs Temperature (97.8 F-99.1 F) 97.6 F L 96.6 F L 98 F Temperature Source Temporal Temporal Temporal Pulse Rate (60-100) 67 64 70 Pulse Location Monitor Monitor Monitor Respiratory Rate (12-18) 18 16 18 Respiratory rate source Observation Observation Observation Oxygen Delivery Method Room Air Blood Pressure (90/60-120/80) 116/64 114/48 L 130/87 H Blood Pressure Mean (mm Hg) 81 70 101 Source Monitor Monitor Monitor Position Semi-Fowlers Blood Pressure Location Left Arm History Since Last Visit- (Skip if this is Patient's initial visit) Have you changed medications since your No No No last visit? Any new allergies or adverse reactions No No No Had a fall/change in ADL's that may No No No increase risk of falls Signs or symptoms of abuse and/or No No No neglect since last visit Have you been in the hospital since your No No No last visit? Has dressing in place as prescribed Yes Yes Yes Has compression in place as prescribed Yes Yes Yes Has offloadiing in place as prescribed Yes N/A N/A Experienced any changes in pain level or No No No management Left Footwear Regular Shoe Right Footwear Regular Shoe Pain Scale: 0-10 Numeric Is Patient Pain Free? Yes Yes Yes WC - Nurse 1 - General Ulcer Measurement Start: 04/14/25 11:01 Freq: Status: Active Protocol: Activity Type Activity Date Activity User E-sign Co-sign Detail Recorded Client Recorded Date Recorded By Document 04/14/25 11:01 JF [id number] 04/14/25 11:02 JF Document 04/17/25 11:32 KW [id number] 04/17/25 11:45 KW Document 04/21/25 08:14 KW [id number] 04/21/25 08:14 KW Document 04/24/25 09:29 DL [id number] 04/24/25 09:45 DL Document 05/01/25 11:27 DL [id number] 05/01/25 11:41 DL 04/14/25 04/17/25 04/21/25 11:01 11:32 08:14 Wound Center Nurse 1 #5 LLE med -Current Size (cm) - Length 0.1 -Current Size (cm) - Width 0.1 -Current Size (cm) - Depth 0.1 -Total Square Cm 0.01 -Date of Last Picture (Recall this 04/17/25 field) -Exudate Amt Small -Exudate Type Serosanguineous -Wound Margin Distinct, Outline Attached -Granulation Amt Large (67-100%) -Granulation Quality Red -Necrosis Amt -Necrotic Tissue Type -Structure Exposed -Texture (Lyndsey-wound Skin Appearance) Assessed -Moisture (Lyndsey-wound Skin Appearance) Assessed -Color (Lyndsey-wound Skin Appearance) Assessed, Hemosiderin Staining -Temperature (Lyndsey-wound Skin No Abnormality Appearance) (Pt Warm) -Tenderness on Palpation (Lyndsey-wound Skin Appearance) -Ulcer Cleansing Soap and Water -Foul Odor after Cleansing No -Anesthetic Used 5% Lidocaine Gel -Wound Comment(s) not measured during nurse 1 #3 LLE Lat Cluster -Current Size (cm) - Length 0.1 -Current Size (cm) - Width 0.1 -Current Size (cm) - Depth 0.1 -Total Square Cm 0.01 -Date of Last Picture (Recall this 04/17/25 field) -Exudate Amt Small -Exudate Type Serosanguineous -Wound Margin Distinct, Outline Attached -Granulation Amt Large (67-100%) -Granulation Quality Red -Necrosis Amt -Necrotic Tissue Type -Structure Exposed -Texture (Lyndsey-wound Skin Appearance) Assessed -Moisture (Lyndsey-wound Skin Appearance) Assessed -Color (Lyndsey-wound Skin Appearance) Assessed, Hemosiderin Staining -Temperature (Lyndsey-wound Skin No Abnormality Appearance) (Pt Warm) -Tenderness on Palpation (Lyndsey-wound No Skin Appearance) -Ulcer Cleansing Soap and Water -Foul Odor after Cleansing No -Anesthetic Used 5% Lidocaine Gel -Wound Comment(s) not measured during nurse 1 Lower Limb Edema Present NA Right Calf (cm) 34.5 35.2 Right Ankle (cm) 26.5 25.3 Left Calf (cm) 35.5 35.2 Left Ankle (cm) 27 25.8 04/24/25 05/01/25 09:29 11:27 Wound Center Nurse 1 #5 LLE med -Current Size (cm) - Length 0.6 0.1 -Current Size (cm) - Width 0.4 0.1 -Current Size (cm) - Depth 0.2 0.1 -Total Square Cm 0.24 0.01 -Date of Last Picture (Recall this field) -Exudate Amt Small None Present -Exudate Type Serosanguineous -Wound Margin Distinct, Thickened Outline Attached -Granulation Amt Small (1-33%) None Present (0 %) -Granulation Quality Red -Necrosis Amt Small (1-33%) Small (1-33%) -Necrotic Tissue Type Adherent Slough Eschar -Structure Exposed N/A N/A -Texture (Lyndsey-wound Skin Appearance) Scarring Scarring -Moisture (Lyndsey-wound Skin Appearance) No Abnormality -Color (Lyndsey-wound Skin Appearance) Hemosiderin Hemosiderin Staining Staining -Temperature (Lyndsey-wound Skin No Abnormality No Abnormality Appearance) (Pt Warm) (Pt Warm) -Tenderness on Palpation (Lyndsey-wound No Skin Appearance) -Ulcer Cleansing Not Cleansed Soap and Water -Foul Odor after Cleansing No No -Anesthetic Used 5% Lidocaine 5% Lidocaine Gel Gel -Wound Comment(s) #3 LLE Lat Cluster -Current Size (cm) - Length 1.6 0.5 -Current Size (cm) - Width 1 0.4 -Current Size (cm) - Depth 0.2 0.1 -Total Square Cm 1.6 0.20 -Date of Last Picture (Recall this field) -Exudate Amt Medium Small -Exudate Type Serosanguineous Serosanguineous -Wound Margin Distinct, Distinct, Outline Outline Attached Attached -Granulation Amt Large (67-100%) Small (1-33%) -Granulation Quality Red Red -Necrosis Amt None Present (0 Small (1-33%) %) -Necrotic Tissue Type Adherent Slough -Structure Exposed N/A N/A -Texture (Lyndsey-wound Skin Appearance) Scarring Scarring -Moisture (Lyndsey-wound Skin Appearance) No Abnormality No Abnormality -Color (Lyndsey-wound Skin Appearance) Hemosiderin No Abnormality Staining -Temperature (Lyndsey-wound Skin No Abnormality No Abnormality Appearance) (Pt Warm) (Pt Warm) -Tenderness on Palpation (Lyndsey-wound No Skin Appearance) -Ulcer Cleansing Soap and Water Soap and Water -Foul Odor after Cleansing No No -Anesthetic Used 5% Lidocaine 5% Lidocaine Gel Gel -Wound Comment(s) Lower Limb Edema Present Right Calf (cm) 34 34 Right Ankle (cm) 24.5 25.2 Left Calf (cm) 34 34 Left Ankle (cm) 25.2 25.6 WC - Nurse 2 - General Ulcer CM Notes Start: 04/14/25 11:01 Freq: Status: Active Protocol: Activity Type Activity Date Activity User E-sign Co-sign Detail Recorded Client Recorded Date Recorded By Document 04/17/25 12:04 [facility] [id number] 04/17/25 12:08 BM Document 04/24/25 10:03 [facility] [id number] 04/24/25 10:08 [facility] 04/17/25 04/24/25 12:04 10:03 Wound Center Nurse 2 #5 LLE med -Time 12:04 10:04 -Correct Patient Yes Yes -Correct Side, Site, Position Yes Yes -Correct Procedure Yes Yes -Procedure Performed Yes Yes -Type of Procedure Debridement Debridement -Clinical Debridement Subcutaneous Subcutaneous -Tissue Removed Subcutaneous Subcutaneous -Post Debridement (cm) - Length 1 0.7 -Post Debridement (cm) - Width 0.5 0.5 -Post Debridement (cm) - Depth 0.1 0.1 -Total Square (Post) (cm) 0.5 0.35 -Area of Debridement (cm) - Length 1 0.7 -Area of Debridement (cm) - Width 0.5 0.5 -Total Square (Area) (cm) 0.5 0.35 -Tunneling No No -Undermining/Tunneling No No -Circular Undermining No No -Wound/Ulcer Outcome Not Healed Not Healed -Ulcer Cleansing Rinsed/ Rinsed/ Irrigated with Irrigated with Saline Saline -Foul Odor after Cleansing No No -Bioengineered Tissue No No -Bleeding Controlled with Pressure Pressure -Treatment Response Procedure Procedure Tolerated Well Tolerated Well -Debridement - Subq, 1st 20sq cm Yes Yes #3 LLE Lat Cluster -Time 12:05 10:04 -Correct Patient Yes Yes -Correct Side, Site, Position Yes Yes -Correct Procedure Yes Yes -Procedure Performed Yes Yes -Type of Procedure Debridement Debridement -Clinical Debridement Subcutaneous Subcutaneous -Tissue Removed Subcutaneous Subcutaneous -Post Debridement (cm) - Length 2.5 1.8 -Post Debridement (cm) - Width 1.6 1 -Post Debridement (cm) - Depth 0.1 0.1 -Total Square (Post) (cm) 4.00 1.8 -Area of Debridement (cm) - Length 2.5 1.8 -Area of Debridement (cm) - Width 1.6 1 -Total Square (Area) (cm) 4.00 1.8 -Tunneling No No -Undermining/Tunneling No No -Circular Undermining No -Wound/Ulcer Outcome Not Healed Not Healed -Ulcer Cleansing Rinsed/ Rinsed/ Irrigated with Irrigated with Saline Saline -Foul Odor after Cleansing No No -Bioengineered Tissue No -Bleeding Controlled with Pressure Pressure -Treatment Response Procedure Procedure Tolerated Well Tolerated Well -Debridement - Subq, 1st 20sq cm No No Pain Scale: 0-10 Numeric Is Patient Pain Free? Yes Yes - Nurse 3 - General Ulcer D/C NN Start: 04/14/25 11:01 Freq: Status: Active Protocol: Activity Type Activity Date Activity User E-sign Co-sign Detail Recorded Client Recorded Date Recorded By Document 04/14/25 11:01 [facility]ING [id number] 04/14/25 11:02 JF Document 04/17/25 12:25 DL [id number] 04/17/25 12:26 DL Document 04/21/25 08:12 KW [id number] 04/21/25 08:14 KW Document 04/24/25 10:36 DL [id number] 04/24/25 10:37 DL Document 04/28/25 11:21 KW [id number] 04/28/25 11:23 KW 04/14/25 04/17/25 04/21/25 11:01 12:25 08:12 Pain Scale: 0-10 Numeric Is Patient Pain Free? Yes Yes Yes Wound Care Center Nurse 3 #5 LLE med -Ulcer Cleansing Soap and Water Soap and Water Soap and Water -Foul Odor after Cleansing -Primary Dressing Applied Promogran Promogran Renuka Matter Renuka Matter -Other Dressing pt own renuka -Primary Dressing Covered/Secured with Dry Gauze Dry Gauze -Other Covering unna -Promogran Renuka Matter 1 1 #3 LLE Lat Cluster -Ulcer Cleansing Soap and Water Soap and Water -Foul Odor after Cleansing No -Other Dressing renuka ptown renuka -Primary Dressing Covered/Secured with Dry Gauze -Other Covering unna BLE -Multi-Layered Wrap Application Unna Boot - Unna Boot - Unna Boot - Bilateral Bilateral Bilateral -Unna- Bilat (Qty applied) 1 1 1 Treatment Response Procedure Tolerated Well WC - Visit Discharge Discharge Condition Stable Stable Stable Ambulatory Status Ambulatory, Ambulatory Ambulatory, Walker Walker Transportation Private Auto Private Auto Private Auto Accompanied by Medication Reconcilliation completed & No provided to patient/care provider Clinical Summary of Care Provided Yes Facility Type Home Health Orders Sent Yes 04/24/25 04/28/25 10:36 11:21 Pain Scale: 0-10 Numeric Is Patient Pain Free? Yes Yes Wound Care Center Nurse 3 #5 LLE med -Ulcer Cleansing Rinsed/ Soap and Water Irrigated with Saline -Foul Odor after Cleansing No -Primary Dressing Applied NonAdherent Contact Layer -Other Dressing Renuka pt own renuka -Primary Dressing Covered/Secured with -Other Covering -Promogran Renuka Matter #3 LLE Lat Cluster -Ulcer Cleansing Rinsed/ Soap and Water Irrigated with Saline -Foul Odor after Cleansing No -Other Dressing Renuka pt own renuka with adaptic -Primary Dressing Covered/Secured with -Other Covering BLE -Multi-Layered Wrap Application Unna Boot - Unna Boot - Bilateral Bilateral -Unna- Bilat (Qty applied) 1 1 Treatment Response Procedure Tolerated Well WC - Visit Discharge Discharge Condition Stable Stable Ambulatory Status Ambulatory, Ambulatory, Walker Walker Transportation Private Auto Private Auto Accompanied by family Medication Reconcilliation completed & No provided to patient/care provider Clinical Summary of Care Provided Yes Facility Type Orders Sent Assessment/Plan Assessment/Plan (1) Non-pressure chronic ulcer of left calf with fat layer exposed: CODE(S): L97.222 - Non-pressure chronic ulcer of left calf with fat layer exposed (2) Venous insufficiency (chronic) (peripheral): CODE(S): I87.2 - Venous insufficiency (chronic) (peripheral) (3) Lipodermatosclerosis of both lower extremities: CODE(S): M79.3 - Panniculitis, unspecified (4) Diabetes mellitus with diabetic polyneuropathy: CODE(S): E11.42 - Type 2 diabetes mellitus with diabetic polyneuropathy QUALIFIERS: Diabetes mellitus type: type 2 (5) Diabetes mellitus with ulcer of calf: CODE(S): E11.622 - Type 2 diabetes mellitus with other skin ulcer; L97.209- Non- pressure chronic ulcer of unspecified calf with unspecified severity (6) Bilateral lower extremity edema: CODE(S): R60.0 - Localized edema PLAN: Plan Patient seen and evaluated Predebridement ulceration measurement: Right lower extremity healed Left medial lower extremity healed Left lateral lower extremity 0.7 cm x 0.3 cm x 0.1 cm Ulceration underwent debridement as noted in the clinical panel above. Postdebridement measurement:Left medial lower extremity healed; left lateral lower extremity 0.8 cm x 0.4 cm x 0.1 cm. Renuka applied to ulcerative bases and left lower extremity Unna boot compression was applied. Compression stockingto right lower extremity. Will return on 05/05/2025 for Unna boot change with nurse visit. There is continued reduction in size ulcerative sites versus his previous visit.He is healing well at this time. It has been discussed with the patient that he is to continue to sleep on flat mattress at night with leg elevation as much as possible at night and throughoutthe day to be heart level or higher. He has been advised against prolonged sitting. 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 He has been advised to not pick at any dry skin or excessively scrub while in the shower to preventopening of ulcerations as his skin is friable. Skin continues to improve via use of Unna boot compression. Discussed signs and symptoms of infection. Discussed if he notices increasing redness about his legs moving up the leg, if he notices any purulent drainage from his wound sites, increasing foul odor from the wound sites, or if he experiences fever greater than 101 degree accompanied by nausea, vomiting, chills that these are signs of a progressing infection and he should report to the ED for IV antibiotic and further evaluation. He is understanding of this today. The following work up and care recommendations were made: Dressing: Renuka to ulcerative bed. Unna boot compression left lower extremity.Compression stockingright lower extremity Wash: Do not get wet. Utilize cast bag when showering to maintain compliance for left lower extremity. Tissue growth optimization: Renuka Offload: Unna boot compression therapy/compression stocking Vascular: Vascular status not impeding healing, chronic venous stasis and lipodermatosclerosis do complicate healing. Edema: Unna boot compression therapy and elevation of lower extremities at all times of rest. Infection: No signs of infection currently. Will finish oral linezolid and continue with intranasalmupirocin. Pain: May take [id number] Tylenol Extra Strength for any discomfort. Currently no pain secondary to diabetic peripheral polyneuropathy Host factors: DM type II with peripheral polyneuropathy, lipodermatosclerosis/chronic venous stasisto complicate healing. He will return 05/05/2025 for change of Unna boot to left lower extremityas nurse visit. I answered all the patient's questions. To return to the wound healing center in 1 week or call sooner if the patient has any questions or concerns. 05/01/25 1218 Cosigner Signature (if applicable): CC: ~ Signed [facility]06-12-2025 Progress note Author Shady Ogden [facility] Note Date/Time April 24, 2025 10:4 1am [facility] [address] [place] [address] Progress Note - Wound Care 04/24/25 1038 MR#: [id number] Acct: [id number] Name: ANDER MONTEIRO Rep #:[id number] : 1950 74 From: Shady hernandez DPM PCP: Dr. Freedom Sutton MD Status:REG R CR Location: History of Present Illness Date of Service: 04/24/25 Chief Complaint: Venous stasis ulceration left lower extremity History of Wound: This is a 74-year-old male who presents to the wound care center for continued aid in healing of a venous stasis ulceration to the lateralaspect of the left lower extremity. Ulceration is secondary to chronic venous insufficiency and lower extremity edema. He had been unable to wear his compression stockings due to significant edema and previous heart failure. 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 This did lead to improvement in lower extremity edema however still does get swelling secondary to his chronic venous insufficiency which did lead to ulceration to the lateral aspect of the left leg. He had been undergoing local wound care in office over the course of 6 weeks with applications of Renuka however ulceration has failed to improve with this and compression stocking. Hecontinues to change dressing daily with Renuka and does have visiting nursing toassist in dressing changes. States that he continues to wear his compression stocking and tries to elevate when possible. He does assist in care for his so elevation at all times of rest poses difficulty. Denies trauma to the leg. Denies N/V/F/chills/SOB. Denies further complaints. Subjective Subjective This is a 74-year-old male who presents to the wound care center for continued care of bilateral lower extremity venous stasis ulcerations. He continues Unna boot compression and is tolerating this well. States he has resumed 80 mg furosemide daily and notices that this is significantly improving his edema bodywide. He is attempting to continue to elevate legs is much as possible. Reportswife has been transfered to [facility] at [place] where she still continues to fight. He visits her daily. Accompanied by daughter in law who notes woundscontinue improving. He denies constitutional symptoms. Denies further complaints today. Objective Data Objective Data Vital Signs: Vital Signs Temp Pulse Resp BP O2 Del Method 97.6 F L 67 18 116/64 Room Air 04/24/25 09:29 04/24/25 09:29 04/24/25 09:29 04/24/25 09:29 04/21/25 08:12 Oxygen Delivery Method Room Air Weight: 105.994 kg Body Mass Index (BMI) 35.5 Physical Exam Const alert, oriented x3 and no apparent distress General Appearance: cooperative HEENT normocephalic Eyes General Eye: normal appearance of both eyes Neck General: normal visual inspection Lymph Lymphatic: no lymphadenopathy noted and no lymphedema noted Resp normal respiratory effort Cardio regular rate and regular rhythm Extremity no calf tenderness Extremity Narrative: Bilateral lower extremity: Vascular: DP and PT pulses weakly palpable. CFT is less than 5 seconds to digits. Normal temperature gradient. Hair growth is absent to digits. Neurologic: Gross sensation intact. There is decreased protective sensation consistent with diabetic peripheral polyneuropathy. Musculoskeletal: Muscle strength 5 of 5 age-appropriate. There is decreased range of motion of the ankle joint dorsiflexion with the knee extended without pain or crepitus bilateral. There is decreased range of motion of the first metatarsophalangeal joint without pain or crepitus bilateral. No pain to palpation of calf bilateral. Dermatologic: Bilateral lower extremities demonstrate lipodermatosclerosis with hyperpigmentation to the pretibial region. Previous scaling/eczematous skin improved following compression of Unna boot therapy. Full-thickness ulceration to the right lower extremity remains healed. There are 2 full-thickness ulcerations to the left lower extremity 1 medial and 1 lateral. Both ulcerations demonstrate mixed fibrogranular layer, but are improving. No signs of infection. Skin no rashes or lesions noted General Skin Exam: venous stasis and dermatitis Neuro moves all extremities Debridement Note Debridement Note Wound debrided: Left lower extremity x 2 Laterality: Left Wound Grade/Stage: Swain stage I Type of Debridement: Excisional debridement Anesthesia Used: 5% Lidocaine Gel Depth: Down to and including healthy tissue and in the subcutaneous layer Percentage of wound debrided: 100 Instrument Used: 5mm curette Tissue Removed: Fibrous, devitalized subcutaneous, biofilm, slough Severity: Fat Layer Exposed Amount of bleeding with debridement: Mild Bleeding Controlled with: Compression and gauze Patient tolerated procedure: Patient tolerated procedure well Post-Debridement Measurements and Additional Note: Post-Debridement Measurements/Treatment WC - Nurse 1 - General Ulcer Assessment Start: 04/14/25 11:01 Freq: Status: Active Protocol: WC.LOWEXT Activity Type Activity Date Activity User E-sign Co-sign Detail Recorded Client Recorded Date Recorded By Document 04/14/25 11:01 JF [id number] 04/14/25 11:02 JF Document 04/17/25 11:32 KW [id number] 04/17/25 11:45 KW Document 04/21/25 08:12 KW [id number] 04/21/25 08:14 KW Document 04/24/25 09:29 DL [id number] 04/24/25 09:45 DL 04/14/25 04/17/25 04/21/25 11:01 11:32 08:12 WC - Today's Visit Information Type of service Nurse-only Follow-up Visit Nurse-only Visit (Physician/INTERVENTION TEACHER Visit ) Arrival Mode Ambulatory, Ambulatory, Ambulatory, Walker Walker Walker Transfer Assistance Accompanied by DIL daughter in law Patient Identification Verified (Name & Yes Yes Yes ) Patient Requires Transmission-Based No Precautions Height and Weight Body Mass Index (BMI) 35.5 35.5 35.5 BMI Classification Obese Obese Obese Vital Signs Temperature (97.8 F-99.1 F) 98.3 F 98.2 F 97.8 F Temperature Source Temporal Temporal Temporal Pulse Rate (60-100) 70 67 66 Pulse Location Monitor Monitor Monitor Respiratory Rate (12-18) 16 18 18 Respiratory rate source Observation Observation Observation Oxygen Delivery Method Room Air Room Air Blood Pressure (90/60-120/80) 118/58 L 124/54 H 131/47 H Blood Pressure Mean (mm Hg) 78 77 75 Source Monitor Monitor Monitor Position Semi-Fowlers Semi-Fowlers Semi-Fowlers Blood Pressure Location Left Arm Left Arm Right Forearm History Since Last Visit- (Skip if this is Patient's initial visit) Have you changed medications since your No No last visit? Any new allergies or adverse reactions No No Had a fall/change in ADL's that may No No increase risk of falls Signs or symptoms of abuse and/or No No neglect since last visit Have you been in the hospital since your No No last visit? Has dressing in place as prescribed Yes Yes Has compression in place as prescribed Yes Yes Has offloadiing in place as prescribed Yes N/A Experienced any changes in pain level or No No management Left Footwear Regular Shoe Regular Shoe Regular Shoe Right Footwear Regular Shoe Regular Shoe Regular Shoe Pain Scale: 0-10 Numeric Is Patient Pain Free? Yes Yes Yes 04/24/25 09:29 WC - Today's Visit Information Type of service Follow-up Visit (Physician/INTERVENTION TEACHER ) Arrival Mode Ambulatory, Walker Transfer Assistance None Accompanied by Patient Identification Verified (Name & Yes ) Patient Requires Transmission-Based No Precautions Height and Weight Body Mass Index (BMI) 35.5 BMI Classification Obese Vital Signs Temperature (97.8 F-99.1 F) 97.6 F L Temperature Source Temporal Pulse Rate (60-100) 67 Pulse Location Monitor Respiratory Rate (12-18) 18 Respiratory rate source Observation Oxygen Delivery Method Blood Pressure (90/60-120/80) 116/64 Blood Pressure Mean (mm Hg) 81 Source Monitor Position Blood Pressure Location History Since Last Visit- (Skip if this is Patient's initial visit) Have you changed medications since your No last visit? Any new allergies or adverse reactions No Had a fall/change in ADL's that may No increase risk of falls Signs or symptoms of abuse and/or No neglect since last visit Have you been in the hospital since your No last visit? Has dressing in place as prescribed Yes Has compression in place as prescribed Yes Has offloadiing in place as prescribed Yes Experienced any changes in pain level or No management Left Footwear Right Footwear Pain Scale: 0-10 Numeric Is Patient Pain Free? Yes - Nurse 1 - General Ulcer Measurement Start: 04/14/25 11:01 Freq: Status: Active Protocol: Activity Type Activity Date Activity User E-sign Co-sign Detail Recorded Client Recorded Date Recorded By Document 04/14/25 11:01 JF [id number] 04/14/25 11:02 JF Document 04/17/25 11:32 KW [id number] 04/17/25 11:45 KW Document 04/21/25 08:14 KW [id number] 04/21/25 08:14 KW Document 04/24/25 09:29 DL [id number] 04/24/25 09:45 DL 04/14/25 04/17/25 04/21/25 11:01 11:32 08:14 Wound Center Nurse 1 #5 LLE med -Current Size (cm) - Length 0.1 -Current Size (cm) - Width 0.1 -Current Size (cm) - Depth 0.1 -Total Square Cm 0.01 -Date of Last Picture (Recall this 04/17/25 field) -Exudate Amt Small -Exudate Type Serosanguineous -Wound Margin Distinct, Outline Attached -Granulation Amt Large (67-100%) -Granulation Quality Red -Necrosis Amt -Necrotic Tissue Type -Structure Exposed -Texture (Lyndsey-wound Skin Appearance) Assessed -Moisture (Lyndsey-wound Skin Appearance) Assessed -Color (Lyndsey-wound Skin Appearance) Assessed, Hemosiderin Staining -Temperature (Lyndsey-wound Skin No Abnormality Appearance) (Pt Warm) -Ulcer Cleansing Soap and Water -Foul Odor after Cleansing No -Anesthetic Used 5% Lidocaine Gel -Wound Comment(s) not measured during nurse 1 #3 LLE Lat Cluster -Current Size (cm) - Length 0.1 -Current Size (cm) - Width 0.1 -Current Size (cm) - Depth 0.1 -Total Square Cm 0.01 -Date of Last Picture (Recall this 04/17/25 field) -Exudate Amt Small -Exudate Type Serosanguineous -Wound Margin Distinct, Outline Attached -Granulation Amt Large (67-100%) -Granulation Quality Red -Necrosis Amt -Structure Exposed -Texture (Lyndsey-wound Skin Appearance) Assessed -Moisture (Lyndsey-wound Skin Appearance) Assessed -Color (Lyndsey-wound Skin Appearance) Assessed, Hemosiderin Staining -Temperature (Lyndsey-wound Skin No Abnormality Appearance) (Pt Warm) -Tenderness on Palpation (Lyndsey-wound No Skin Appearance) -Ulcer Cleansing Soap and Water -Foul Odor after Cleansing No -Anesthetic Used 5% Lidocaine Gel -Wound Comment(s) not measured during nurse 1 Lower Limb Edema Present NA Right Calf (cm) 34.5 35.2 Right Ankle (cm) 26.5 25.3 Left Calf (cm) 35.5 35.2 Left Ankle (cm) 27 25.8 04/24/25 09:29 Wound Center Nurse 1 #5 LLE med -Current Size (cm) - Length 0.6 -Current Size (cm) - Width 0.4 -Current Size (cm) - Depth 0.2 -Total Square Cm 0.24 -Date of Last Picture (Recall this field) -Exudate Amt Small -Exudate Type Serosanguineous -Wound Margin Distinct, Outline Attached -Granulation Amt Small (1-33%) -Granulation Quality Red -Necrosis Amt Small (1-33%) -Necrotic Tissue Type Adherent Slough -Structure Exposed N/A -Texture (Lyndsey-wound Skin Appearance) Scarring -Moisture (Lyndsey-wound Skin Appearance) No Abnormality -Color (Lyndsey-wound Skin Appearance) Hemosiderin Staining -Temperature (Lyndsey-wound Skin No Abnormality Appearance) (Pt Warm) -Ulcer Cleansing Not Cleansed -Foul Odor after Cleansing No -Anesthetic Used 5% Lidocaine Gel -Wound Comment(s) #3 LLE Lat Cluster -Current Size (cm) - Length 1.6 -Current Size (cm) - Width 1 -Current Size (cm) - Depth 0.2 -Total Square Cm 1.6 -Date of Last Picture (Recall this field) -Exudate Amt Medium -Exudate Type Serosanguineous -Wound Margin Distinct, Outline Attached -Granulation Amt Large (67-100%) -Granulation Quality Red -Necrosis Amt None Present (0 %) -Structure Exposed N/A -Texture (Lyndsey-wound Skin Appearance) Scarring -Moisture (Lyndsey-wound Skin Appearance) No Abnormality -Color (Lyndsey-wound Skin Appearance) Hemosiderin Staining -Temperature (Lyndsey-wound Skin No Abnormality Appearance) (Pt Warm) -Tenderness on Palpation (Lynsdey-wound Skin Appearance) -Ulcer Cleansing Soap and Water -Foul Odor after Cleansing No -Anesthetic Used 5% Lidocaine Gel -Wound Comment(s) Lower Limb Edema Present Right Calf (cm) 34 Right Ankle (cm) 24.5 Left Calf (cm) 34 Left Ankle (cm) 25.2 WC - Nurse 2 - General Ulcer CM Notes Start: 04/14/25 11:01 Freq: Status: Active Protocol: Activity Type Activity Date Activity User E-sign Co-sign Detail Recorded Client Recorded Date Recorded By Document 04/17/25 12:04 [facility] [id number] 04/17/25 12:08 BM Document 04/24/25 10:03 [facility] [id number] 04/24/25 10:08 BM 04/17/25 04/24/25 12:04 10:03 Wound Center Nurse 2 #5 LLE med -Time 12:04 10:04 -Correct Patient Yes Yes -Correct Side, Site, Position Yes Yes -Correct Procedure Yes Yes -Procedure Performed Yes Yes -Type of Procedure Debridement Debridement -Clinical Debridement Subcutaneous Subcutaneous -Tissue Removed Subcutaneous Subcutaneous -Post Debridement (cm) - Length 1 0.7 -Post Debridement (cm) - Width 0.5 0.5 -Post Debridement (cm) - Depth 0.1 0.1 -Total Square (Post) (cm) 0.5 0.35 -Area of Debridement (cm) - Length 1 0.7 -Area of Debridement (cm) - Width 0.5 0.5 -Total Square (Area) (cm) 0.5 0.35 -Tunneling No No -Undermining/Tunneling No No -Circular Undermining No No -Wound/Ulcer Outcome Not Healed Not Healed -Ulcer Cleansing Rinsed/ Rinsed/ Irrigated with Irrigated with Saline Saline -Foul Odor after Cleansing No No -Bioengineered Tissue No No -Bleeding Controlled with Pressure Pressure -Treatment Response Procedure Procedure Tolerated Well Tolerated Well -Debridement - Subq, 1st 20sq cm Yes Yes #3 LLE Lat Cluster -Time 12:05 10:04 -Correct Patient Yes Yes -Correct Side, Site, Position Yes Yes -Correct Procedure Yes Yes -Procedure Performed Yes Yes -Type of Procedure Debridement Debridement -Clinical Debridement Subcutaneous Subcutaneous -Tissue Removed Subcutaneous Subcutaneous -Post Debridement (cm) - Length 2.5 1.8 -Post Debridement (cm) - Width 1.6 1 -Post Debridement (cm) - Depth 0.1 0.1 -Total Square (Post) (cm) 4.00 1.8 -Area of Debridement (cm) - Length 2.5 1.8 -Area of Debridement (cm) - Width 1.6 1 -Total Square (Area) (cm) 4.00 1.8 -Tunneling No No -Undermining/Tunneling No No -Circular Undermining No -Wound/Ulcer Outcome Not Healed Not Healed -Ulcer Cleansing Rinsed/ Rinsed/ Irrigated with Irrigated with Saline Saline -Foul Odor after Cleansing No No -Bioengineered Tissue No -Bleeding Controlled with Pressure Pressure -Treatment Response Procedure Procedure Tolerated Well Tolerated Well -Debridement - Subq, 1st 20sq cm No No Pain Scale: 0-10 Numeric Is Patient Pain Free? Yes Yes WC - Nurse 3 - General Ulcer D/C NN Start: 04/14/25 11:01 Freq: Status: Active Protocol: Activity Type Activity Date Activity User E-sign Co-sign Detail Recorded Client Recorded Date Recorded By Document 04/14/25 11:01 JF [id number] 04/14/25 11:02 JF Document 04/17/25 12:25 DL [id number] 04/17/25 12:26 DL Document 04/21/25 08:12 KW [id number] 04/21/25 08:14 KW Document 04/24/25 10:36 DL [id number] 04/24/25 10:37 DL 04/14/25 04/17/25 04/21/25 11:01 12:25 08:12 Pain Scale: 0-10 Numeric Is Patient Pain Free? Yes Yes Yes Wound Care Center Nurse 3 #5 LLE med -Ulcer Cleansing Soap and Water Soap and Water Soap and Water -Foul Odor after Cleansing -Primary Dressing Applied Promogran Promogran Renuka Matter Renuka Matter -Other Dressing pt own renuka -Primary Dressing Covered/Secured with Dry Gauze Dry Gauze -Other Covering unna -Promogran Renuka Matter 1 1 #3 LLE Lat Cluster -Ulcer Cleansing Soap and Water Soap and Water -Foul Odor after Cleansing No -Other Dressing renuka ptown renuka -Primary Dressing Covered/Secured with Dry Gauze -Other Covering unna BLE -Multi-Layered Wrap Application Unna Boot - Unna Boot - Unna Boot - Bilateral Bilateral Bilateral -Unna- Bilat (Qty applied) 1 1 1 Treatment Response Procedure Tolerated Well WC - Visit Discharge Discharge Condition Stable Stable Stable Ambulatory Status Ambulatory, Ambulatory Ambulatory, Walker Walker Transportation Private Auto Private Auto Private Auto Accompanied by Medication Reconcilliation completed & No provided to patient/care provider Clinical Summary of Care Provided Yes Facility Type Home Health Orders Sent Yes 04/24/25 10:36 Pain Scale: 0-10 Numeric Is Patient Pain Free? Yes Wound Care Center Nurse 3 #5 LLE med -Ulcer Cleansing Rinsed/ Irrigated with Saline -Foul Odor after Cleansing No -Primary Dressing Applied -Other Dressing Renuka -Primary Dressing Covered/Secured with -Other Covering -Promogran Renuka Matter #3 LLE Lat Cluster -Ulcer Cleansing Rinsed/ Irrigated with Saline -Foul Odor after Cleansing No -Other Dressing Renuka -Primary Dressing Covered/Secured with -Other Covering BLE -Multi-Layered Wrap Application Unna Boot - Bilateral -Unna- Bilat (Qty applied) 1 Treatment Response Procedure Tolerated Well WC - Visit Discharge Discharge Condition Stable Ambulatory Status Ambulatory, Walker Transportation Private Auto Accompanied by family Medication Reconcilliation completed & provided to patient/care provider Clinical Summary of Care Provided Facility Type Orders Sent Assessment/Plan Assessment/Plan (1) Non-pressure chronic ulcer of left calf with fat layer exposed: CODE(S): L97.222 - Non-pressure chronic ulcer of left calf with fat layer exposed (2) Venous insufficiency (chronic) (peripheral): CODE(S): I87.2 - Venous insufficiency (chronic) (peripheral) (3) Lipodermatosclerosis of both lower extremities: CODE(S): M79.3 - Panniculitis, unspecified (4) Diabetes mellitus with diabetic polyneuropathy: CODE(S): E11.42 - Type 2 diabetes mellitus with diabetic polyneuropathy QUALIFIERS: Diabetes mellitus type: type 2 (5) Diabetes mellitus with ulcer of calf: CODE(S): E11.622 - Type 2 diabetes mellitus with other skin ulcer; L97.209- Non-pressure chronic ulcer of unspecified calf with unspecified severity (6) Bilateral lower extremity edema: CODE(S): R60.0 - Localized edema PLAN: Plan Patient seen and evaluated Predebridement ulceration measurement: Right lower extremity healed Left medial lower extremity 0.6 x 0.4 x 0.1 cm Left lateral lower extremity 1.7 cm x 0.9 cm x 0.1 cm Ulceration underwent debridement as noted in the clinical panel above. Postdebridement measurement: Left medial lower extremity 0.7 cm x 0.5 cm x 0.1 cm; left lateral lower extremity 1.8 cm x 1.0 cm x 0.1 cm. Renuka applied to ulcerative bases and bilateral Unna boot compression was applied. Will return on 04/28/2025 for Unna boot change with nurse visit. There is continued reduction in size of both ulcerative sites versus his previous visit. It has been discussed with the patient that he is to continue to sleep on flat mattress at night with leg elevation as much as possible at night and throughoutthe day to be heart level or higher. He has been advised against prolonged sitting. 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 He has been advised to not pick at any dry skin or excessively scrub while in the shower to prevent opening of ulcerations as his skin is friable. Skin continues to improve via use of bilateral Unna boot compression. Discussed signs and symptoms of infection. Discussed if he notices increasing redness about his legs moving up the leg, if he notices any purulent drainage from his wound sites, increasing foul odor from the wound sites, or if he experiences fever greater than 101 degree accompanied by nausea, vomiting, chills that these are signs of a progressing infection and he should report to the ED for IV antibiotic and further evaluation. He is understanding of this today. The following work up and care recommendations were made: Dressing: Renuka to ulcerative bed. Unna boot compression bilateral lower extremity Wash: Do not get wet. Utilize cast bag when showering to maintain compliance. Tissue growth optimization: Renuka Offload: Unna boot compression therapy Vascular: Vascular status not impeding healing, chronic venous stasis and lipodermatosclerosis do complicate healing. Edema: Unna boot compression therapy and elevation of lower extremities at all times of rest. Infection: No signs of infection currently. Will finish oral linezolid and continue with intranasal mupirocin. Pain: May take [id number] Tylenol Extra Strength for any discomfort. Currently no pain secondary to diabetic peripheral polyneuropathy Host factors: DM type II with peripheral polyneuropathy, lipodermatosclerosis/chronic venous stasis to complicate healing. He will return 04/28/2025 for change of Unna boot to bilateral lower extremities as nurse visit. I answered all the patient's questions. To return to the wound healing center in 1 week or call sooner if the patient has any questions or concerns. 04/24/25 1041 <Electronically signed by Shady Ogden DPM> Cosigner Signature (if applicable): CC: ~ Signed [facility] Work Phone: [phone]) 870-381106-12-2025 Progress note [facility] [address] [place] [address] Progress Note - Wound Care 04/24/25 1038 MR#: [id number] Acct: [id number] Name: ANDER MONTEIRO Rep #:[id number] : 1950 74 From: Shady hernandez DPM PCP: Dr. Freedom Sutton MD Status:REG R CR Location: History of Present Illness Date of Service: 04/24/25 Chief Complaint: Venous stasis ulceration left lower extremity History of Wound: This is a 74-year-old male who presents to the wound care center for continued aid in healing of a venous stasis ulceration to the lateralaspect of the left lower extremity. Ulceration is secondary to chronic venous insufficiency and lower extremity edema. He had been unable to wear his compression stockings due to significant edema and previous heart failure. 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 This did lead to improvement in lower extremity edema however still does get swelling secondary to his chronic venous insufficiency which did lead to ulceration to the lateral aspect of the left leg. He had been undergoing local woundcare in office over the course of 6 weeks with applications of Renuka however ulceration has failedto improve with this and compression stocking. Hecontinues to change dressing daily with Renuka anddoes have visiting nursing toassist in dressing changes. States that he continues to wear his compression stocking and tries to elevate when possible. He does assist in care for his so elevationat all times of rest poses difficulty. Denies trauma to the leg. Denies N/V/F/chills/SOB. Denies further complaints. Subjective Subjective This is a 74-year-old male who presents to the wound care center for continued care of bilateral lower extremity venous stasis ulcerations. He continues Unna boot compression and is tolerating this well. States he has resumed 80 mg furosemide daily and notices that this is significantly improving his edema bodywide. He is attempting to continue to elevate legs is much as possible. Jose villalobos transfered to extended care at [place] where she still continues to fight. He visits her daily. Accompanied by daughter in law who notes woundscontinue improving. He denies constitutional symptoms. Denies further complaints today. Objective Data Objective Data Vital Signs: Vital Signs Temp Pulse Resp BP O2 Del Method 97.6 F L 67 18 116/64 Room Air 04/24/25 09:29 04/24/25 09:29 04/24/25 09:29 04/24/25 09:29 04/21/25 08:12 Oxygen Delivery Method Room Air Weight: 105.994 kg Body Mass Index (BMI) 35.5 Physical Exam Const alert, oriented x3 and no apparent distress General Appearance: cooperative HEENT normocephalic Eyes General Eye: normal appearance of both eyes Neck General: normal visual inspection Lymph Lymphatic: no lymphadenopathy noted and no lymphedema noted Resp normal respiratory effort Cardio regular rate and regular rhythm Extremity no calf tenderness Extremity Narrative: Bilateral lower extremity: Vascular: DP and PT pulses weakly palpable. CFT is less than 5 seconds to digits. Normal temperature gradient. Hair growth is absent to digits. Neurologic: Gross sensation intact. There is decreased protective sensation consistent with diabetic peripheral polyneuropathy. Musculoskeletal: Muscle strength 5 of 5 age-appropriate. There is decreased range of motion of the ankle joint dorsiflexion with the knee extended without pain or crepitus bilateral. There is decreased range of motion of the first metatarsophalangeal joint without pain or crepitus bilateral. No pain to palpation of calf bilateral. Dermatologic: Bilateral lower extremities demonstrate lipodermatosclerosis with hyperpigmentation to the pretibial region. Previous scaling/eczematous skin improved following compression of Unna boottherapy. Full-thickness ulceration to the right lower extremity remains healed. There are 2 full-thickness ulcerations to the left lower extremity 1 medial and 1 lateral. Both ulcerations demonstratemixed fibrogranular layer, but are improving. No signs of infection. Skin no rashes or lesions noted General Skin Exam: venous stasis and dermatitis Neuro moves all extremities Debridement Note Debridement Note Wound debrided: Left lower extremity x 2 Laterality: Left Wound Grade/Stage: Swain stage I Type of Debridement: Excisional debridement Anesthesia Used: 5% Lidocaine Gel Depth: Down to and including healthy tissue and in the subcutaneous layer Percentage of wound debrided: 100 Instrument Used: 5mm curette Tissue Removed: Fibrous, devitalized subcutaneous, biofilm, slough Severity: Fat Layer Exposed Amount of bleeding with debridement: Mild Bleeding Controlled with: Compression and gauze Patient tolerated procedure: Patient tolerated procedure well Post-Debridement Measurements and Additional Note: Post-Debridement Measurements/Treatment CLAUDETTE - Nurse 1 - General Ulcer Assessment Start: 04/14/25 11:01 Freq: Status: Active Protocol: LOWDAWSON Activity Type Activity Date Activity User E-sign Co-sign Detail Recorded Client Recorded Date Recorded By Document 04/14/25 11:01 CHING [id number] 04/14/25 11:02 JF Document 04/17/25 11:32 KW [id number] 04/17/25 11:45 KW Document 04/21/25 08:12 KW [id number] 04/21/25 08:14 KW Document 04/24/25 09:29 DL [id number] 04/24/25 09:45 DL 04/14/25 04/17/25 04/21/25 11:01 11:32 08:12 WC - Today's Visit Information Type of service Nurse-only Follow-up Visit Nurse-only Visit (Physician/INTERVENTION TEACHER Visit ) Arrival Mode Ambulatory, Ambulatory, Ambulatory, Walker Walker Walker Transfer Assistance Accompanied by DIL daughter in law Patient Identification Verified (Name & Yes Yes Yes ) Patient Requires Transmission-Based No Precautions Height and Weight Body Mass Index (BMI) 35.5 35.5 35.5 BMI Classification Obese Obese Obese Vital Signs Temperature (97.8 F-99.1 F) 98.3 F 98.2 F 97.8 F Temperature Source Temporal Temporal Temporal Pulse Rate (60-100) 70 67 66 Pulse Location Monitor Monitor Monitor Respiratory Rate (12-18) 16 18 18 Respiratory rate source Observation Observation Observation Oxygen Delivery Method Room Air Room Air Blood Pressure (90/60-120/80) 118/58 L 124/54 H 131/47 H Blood Pressure Mean (mm Hg) 78 77 75 Source Monitor Monitor Monitor Position Semi-Fowlers Semi-Fowlers Semi-Fowlers Blood Pressure Location Left Arm Left Arm Right Forearm History Since Last Visit- (Skip if this is Patient's initial visit) Have you changed medications since your No No last visit? Any new allergies or adverse reactions No No Had a fall/change in ADL's that may No No increase risk of falls Signs or symptoms of abuse and/or No No neglect since last visit Have you been in the hospital since your No No last visit? Has dressing in place as prescribed Yes Yes Has compression in place as prescribed Yes Yes Has offloadiing in place as prescribed Yes N/A Experienced any changes in pain level or No No management Left Footwear Regular Shoe Regular Shoe Regular Shoe Right Footwear Regular Shoe Regular Shoe Regular Shoe Pain Scale: 0-10 Numeric Is Patient Pain Free? Yes Yes Yes 04/24/25 09:29 WC - Today's Visit Information Type of service Follow-up Visit (Physician/INTERVENTION TEACHER ) Arrival Mode Ambulatory, Walker Transfer Assistance None Accompanied by Patient Identification Verified (Name & Yes ) Patient Requires Transmission-Based No Precautions Height and Weight Body Mass Index (BMI) 35.5 BMI Classification Obese Vital Signs Temperature (97.8 F-99.1 F) 97.6 F L Temperature Source Temporal Pulse Rate (60-100) 67 Pulse Location Monitor Respiratory Rate (12-18) 18 Respiratory rate source Observation Oxygen Delivery Method Blood Pressure (90/60-120/80) 116/64 Blood Pressure Mean (mm Hg) 81 Source Monitor Position Blood Pressure Location History Since Last Visit- (Skip if this is Patient's initial visit) Have you changed medications since your No last visit? Any new allergies or adverse reactions No Had a fall/change in ADL's that may No increase risk of falls Signs or symptoms of abuse and/or No neglect since last visit Have you been in the hospital since your No last visit? Has dressing in place as prescribed Yes Has compression in place as prescribed Yes Has offloadiing in place as prescribed Yes Experienced any changes in pain level or No management Left Footwear Right Footwear Pain Scale: 0-10 Numeric Is Patient Pain Free? Yes WC - Nurse 1 - General Ulcer Measurement Start: 04/14/25 11:01 Freq: Status: Active Protocol: Activity Type Activity Date Activity User E-sign Co-sign Detail Recorded Client Recorded Date Recorded By Document 04/14/25 11:01 [id number] 04/14/25 11:02 Document 04/17/25 11:32 KW [id number] 04/17/25 11:45 KW Document 04/21/25 08:14 KW [id number] 04/21/25 08:14 KW Document 04/24/25 09:29 DL [id number] 04/24/25 09:45 DL 04/14/25 04/17/25 04/21/25 11:01 11:32 08:14 Wound Center Nurse 1 #5 LLE med -Current Size (cm) - Length 0.1 -Current Size (cm) - Width 0.1 -Current Size (cm) - Depth 0.1 -Total Square Cm 0.01 -Date of Last Picture (Recall this 04/17/25 field) -Exudate Amt Small -Exudate Type Serosanguineous -Wound Margin Distinct, Outline Attached -Granulation Amt Large (67-100%) -Granulation Quality Red -Necrosis Amt -Necrotic Tissue Type -Structure Exposed -Texture (Lyndsey-wound Skin Appearance) Assessed -Moisture (Lyndsey-wound Skin Appearance) Assessed -Color (Lyndsey-wound Skin Appearance) Assessed, Hemosiderin Staining -Temperature (Lyndsey-wound Skin No Abnormality Appearance) (Pt Warm) -Ulcer Cleansing Soap and Water -Foul Odor after Cleansing No -Anesthetic Used 5% Lidocaine Gel -Wound Comment(s) not measured during nurse 1 #3 LLE Lat Cluster -Current Size (cm) - Length 0.1 -Current Size (cm) - Width 0.1 -Current Size (cm) - Depth 0.1 -Total Square Cm 0.01 -Date of Last Picture (Recall this 04/17/25 field) -Exudate Amt Small -Exudate Type Serosanguineous -Wound Margin Distinct, Outline Attached -Granulation Amt Large (67-100%) -Granulation Quality Red -Necrosis Amt -Structure Exposed -Texture (Lyndsey-wound Skin Appearance) Assessed -Moisture (Lyndsey-wound Skin Appearance) Assessed -Color (Lyndsey-wound Skin Appearance) Assessed, Hemosiderin Staining -Temperature (Lyndsey-wound Skin No Abnormality Appearance) (Pt Warm) -Tenderness on Palpation (Lyndsey-wound No Skin Appearance) -Ulcer Cleansing Soap and Water -Foul Odor after Cleansing No -Anesthetic Used 5% Lidocaine Gel -Wound Comment(s) not measured during nurse 1 Lower Limb Edema Present NA Right Calf (cm) 34.5 35.2 Right Ankle (cm) 26.5 25.3 Left Calf (cm) 35.5 35.2 Left Ankle (cm) 27 25.8 04/24/25 09:29 Wound Center Nurse 1 #5 LLE med -Current Size (cm) - Length 0.6 -Current Size (cm) - Width 0.4 -Current Size (cm) - Depth 0.2 -Total Square Cm 0.24 -Date of Last Picture (Recall this field) -Exudate Amt Small -Exudate Type Serosanguineous -Wound Margin Distinct, Outline Attached -Granulation Amt Small (1-33%) -Granulation Quality Red -Necrosis Amt Small (1-33%) -Necrotic Tissue Type Adherent Slough -Structure Exposed N/A -Texture (Lyndsey-wound Skin Appearance) Scarring -Moisture (Lyndsey-wound Skin Appearance) No Abnormality -Color (Lyndsey-wound Skin Appearance) Hemosiderin Staining -Temperature (Lyndsey-wound Skin No Abnormality Appearance) (Pt Warm) -Ulcer Cleansing Not Cleansed -Foul Odor after Cleansing No -Anesthetic Used 5% Lidocaine Gel -Wound Comment(s) #3 LLE Lat Cluster -Current Size (cm) - Length 1.6 -Current Size (cm) - Width 1 -Current Size (cm) - Depth 0.2 -Total Square Cm 1.6 -Date of Last Picture (Recall this field) -Exudate Amt Medium -Exudate Type Serosanguineous -Wound Margin Distinct, Outline Attached -Granulation Amt Large (67-100%) -Granulation Quality Red -Necrosis Amt None Present (0 %) -Structure Exposed N/A -Texture (Lyndsey-wound Skin Appearance) Scarring -Moisture (Lyndsey-wound Skin Appearance) No Abnormality -Color (Lyndsey-wound Skin Appearance) Hemosiderin Staining -Temperature (Lyndsey-wound Skin No Abnormality Appearance) (Pt Warm) -Tenderness on Palpation (Lyndsey-wound Skin Appearance) -Ulcer Cleansing Soap and Water -Foul Odor after Cleansing No -Anesthetic Used 5% Lidocaine Gel -Wound Comment(s) Lower Limb Edema Present Right Calf (cm) 34 Right Ankle (cm) 24.5 Left Calf (cm) 34 Left Ankle (cm) 25.2 WC - Nurse 2 - General Ulcer CM Notes Start: 04/14/25 11:01 Freq: Status: Active Protocol: Activity Type Activity Date Activity User E-sign Co-sign Detail Recorded Client Recorded Date Recorded By Document 04/17/25 12:04 [facility] [id number] 04/17/25 12:08 [facility] Document 04/24/25 10:03 [facility] [id number] 04/24/25 10:08 [facility] 04/17/25 04/24/25 12:04 10:03 Wound Center Nurse 2 #5 LLE med -Time 12:04 10:04 -Correct Patient Yes Yes -Correct Side, Site, Position Yes Yes -Correct Procedure Yes Yes -Procedure Performed Yes Yes -Type of Procedure Debridement Debridement -Clinical Debridement Subcutaneous Subcutaneous -Tissue Removed Subcutaneous Subcutaneous -Post Debridement (cm) - Length 1 0.7 -Post Debridement (cm) - Width 0.5 0.5 -Post Debridement (cm) - Depth 0.1 0.1 -Total Square (Post) (cm) 0.5 0.35 -Area of Debridement (cm) - Length 1 0.7 -Area of Debridement (cm) - Width 0.5 0.5 -Total Square (Area) (cm) 0.5 0.35 -Tunneling No No -Undermining/Tunneling No No -Circular Undermining No No -Wound/Ulcer Outcome Not Healed Not Healed -Ulcer Cleansing Rinsed/ Rinsed/ Irrigated with Irrigated with Saline Saline -Foul Odor after Cleansing No No -Bioengineered Tissue No No -Bleeding Controlled with Pressure Pressure -Treatment Response Procedure Procedure Tolerated Well Tolerated Well -Debridement - Subq, 1st 20sq cm Yes Yes #3 LLE Lat Cluster -Time 12:05 10:04 -Correct Patient Yes Yes -Correct Side, Site, Position Yes Yes -Correct Procedure Yes Yes -Procedure Performed Yes Yes -Type of Procedure Debridement Debridement -Clinical Debridement Subcutaneous Subcutaneous -Tissue Removed Subcutaneous Subcutaneous -Post Debridement (cm) - Length 2.5 1.8 -Post Debridement (cm) - Width 1.6 1 -Post Debridement (cm) - Depth 0.1 0.1 -Total Square (Post) (cm) 4.00 1.8 -Area of Debridement (cm) - Length 2.5 1.8 -Area of Debridement (cm) - Width 1.6 1 -Total Square (Area) (cm) 4.00 1.8 -Tunneling No No -Undermining/Tunneling No No -Circular Undermining No -Wound/Ulcer Outcome Not Healed Not Healed -Ulcer Cleansing Rinsed/ Rinsed/ Irrigated with Irrigated with Saline Saline -Foul Odor after Cleansing No No -Bioengineered Tissue No -Bleeding Controlled with Pressure Pressure -Treatment Response Procedure Procedure Tolerated Well Tolerated Well -Debridement - Subq, 1st 20sq cm No No Pain Scale: 0-10 Numeric Is Patient Pain Free? Yes Yes WC - Nurse 3 - General Ulcer D/C NN Start: 04/14/25 11:01 Freq: Status: Active Protocol: Activity Type Activity Date Activity User E-sign Co-sign Detail Recorded Client Recorded Date Recorded By Document 04/14/25 11:01 JF [id number] 04/14/25 11:02 JF Document 04/17/25 12:25 DL [id number] 04/17/25 12:26 DL Document 04/21/25 08:12 KW [id number] 04/21/25 08:14 KW Document 04/24/25 10:36 DL [id number] 04/24/25 10:37 DL 04/14/25 04/17/25 04/21/25 11:01 12:25 08:12 Pain Scale: 0-10 Numeric Is Patient Pain Free? Yes Yes Yes Wound Care Center Nurse 3 #5 LLE med -Ulcer Cleansing Soap and Water Soap and Water Soap and Water -Foul Odor after Cleansing -Primary Dressing Applied Promogran Promogran Renuka Matter Renuka Matter -Other Dressing pt own renuka -Primary Dressing Covered/Secured with Dry Gauze Dry Gauze -Other Covering unna -Promogran Renuka Matter 1 1 #3 LLE Lat Cluster -Ulcer Cleansing Soap and Water Soap and Water -Foul Odor after Cleansing No -Other Dressing renuka ptown renuka -Primary Dressing Covered/Secured with Dry Gauze -Other Covering unna BLE -Multi-Layered Wrap Application Unna Boot - Unna Boot - Unna Boot - Bilateral Bilateral Bilateral -Unna- Bilat (Qty applied) 1 1 1 Treatment Response Procedure Tolerated Well WC - Visit Discharge Discharge Condition Stable Stable Stable Ambulatory Status Ambulatory, Ambulatory Ambulatory, Walker Walker Transportation Private Auto Private Auto Private Auto Accompanied by Medication Reconcilliation completed & No provided to patient/care provider Clinical Summary of Care Provided Yes Facility Type Home Health Orders Sent Yes 04/24/25 10:36 Pain Scale: 0-10 Numeric Is Patient Pain Free? Yes Wound Care Center Nurse 3 #5 LLE med -Ulcer Cleansing Rinsed/ Irrigated with Saline -Foul Odor after Cleansing No -Primary Dressing Applied -Other Dressing Renuka -Primary Dressing Covered/Secured with -Other Covering -Promogran Renuka Matter #3 LLE Lat Cluster -Ulcer Cleansing Rinsed/ Irrigated with Saline -Foul Odor after Cleansing No -Other Dressing Renuka -Primary Dressing Covered/Secured with -Other Covering BLE -Multi-Layered Wrap Application Unna Boot - Bilateral -Unna- Bilat (Qty applied) 1 Treatment Response Procedure Tolerated Well WC - Visit Discharge Discharge Condition Stable Ambulatory Status Ambulatory, Walker Transportation Private Auto Accompanied by family Medication Reconcilliation completed & provided to patient/care provider Clinical Summary of Care Provided Facility Type Orders Sent Assessment/Plan Assessment/Plan (1) Non-pressure chronic ulcer of left calf with fat layer exposed: CODE(S): L97.222 - Non-pressure chronic ulcer of left calf with fat layer exposed (2) Venous insufficiency (chronic) (peripheral): CODE(S): I87.2 - Venous insufficiency (chronic) (peripheral) (3) Lipodermatosclerosis of both lower extremities: CODE(S): M79.3 - Panniculitis, unspecified (4) Diabetes mellitus with diabetic polyneuropathy: CODE(S): E11.42 - Type 2 diabetes mellitus with diabetic polyneuropathy QUALIFIERS: Diabetes mellitus type: type 2 (5) Diabetes mellitus with ulcer of calf: CODE(S): E11.622 - Type 2 diabetes mellitus with other skin ulcer; L97.209- Non- pressure chronic ulcer of unspecified calf with unspecified severity (6) Bilateral lower extremity edema: CODE(S): R60.0 - Localized edema PLAN: Plan Patient seen and evaluated Predebridement ulceration measurement: Right lower extremity healed Left medial lower extremity 0.6 x 0.4 x 0.1 cm Left lateral lower extremity 1.7 cm x 0.9 cm x 0.1 cm Ulceration underwent debridement as noted in the clinical panel above. Postdebridement measurement:Left medial lower extremity 0.7 cm x 0.5 cm x 0.1 cm; left lateral lower extremity 1.8 cm x 1.0 cm x 0.1 cm. Renuka applied to ulcerative bases and bilateral Unna boot compression was applied. Will return on 04/28/2025 for Unna boot change with nurse visit. There is continued reduction in size of both ulcerative sites versus his previous visit. It has been discussed with the patient that he is to continue to sleep on flat mattress at night with leg elevation as much as possible at night and throughoutthe day to be heart level or higher. He has been advised against prolonged sitting. 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 He has been advised to not pick at any dry skin or excessively scrub while in the shower to preventopening of ulcerations as his skin is friable. Skin continues to improve via use of bilateral Unna boot compression. Discussed signs and symptoms of infection. Discussed if he notices increasing redness about his legs moving up the leg, if he notices any purulent drainage from his wound sites, increasing foul odor from the wound sites, or if he experiences fever greater than 101 degree accompanied by nausea, vomiting, chills that these are signs of a progressing infection and he should report to the ED for IV antibiotic and further evaluation. He is understanding of this today. The following work up and care recommendations were made: Dressing: Renuka to ulcerative bed. Unna boot compression bilateral lower extremity Wash: Do not get wet. Utilize cast bag when showering to maintain compliance. Tissue growth optimization: Renuka Offload: Unna boot compression therapy Vascular: Vascular status not impeding healing, chronic venous stasis and lipodermatosclerosis do complicate healing. Edema: Unna boot compression therapy and elevation of lower extremities at all times of rest. Infection: No signs of infection currently. Will finish oral linezolid and continue with intranasalmupirocin. Pain: May take [id number] Tylenol Extra Strength for any discomfort. Currently no pain secondary to diabetic peripheral polyneuropathy Host factors: DM type II with peripheral polyneuropathy, lipodermatosclerosis/chronic venous stasisto complicate healing. He will return 04/28/2025 for change of Unna boot to bilateral lower extremities as nurse visit. I answered all the patient's questions. To return to the wound healing center in 1 week or call sooner if the patient has any questions or concerns. 04/24/25 1041 Cosigner Signature (if applicable): CC: ~ Signed [facility]06-05-2025 Progress note Author Shady Ogden [facility] Note Date/Time April 17, 2025 1:01p [facility] [address] [place] [address] Progress Note - Wound Care 04/17/25 1253 MR#: [id number] Acct: [id number] Name: ANDER MONTEIRO Rep #:[id number] : 1950 74 From: Shady hernandez DPM PCP: Dr. Freedom Sutton MD Status:REG R CR Location: History of Present Illness Date of Service: 04/17/25 Chief Complaint: Venous stasis ulceration left lower extremity History of Wound: This is a 74-year-old male who presents to the wound care center for continued aid in healing of a venous stasis ulceration to the lateralaspect of the left lower extremity. Ulceration is secondary to chronic venous insufficiency and lower extremity edema. He had been unable to wear his compression stockings due to significant edema and previous heart failure. 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 This did lead to improvement in lower extremity edema however still does get swelling secondary to his chronic venous insufficiency which did lead to ulceration to the lateral aspect of the left leg. He had been undergoing local wound care in office over the course of 6 weeks with applications of Renuka however ulceration has failed to improve with this and compression stocking. Hecontinues to change dressing daily with Renuka and does have visiting nursing toassist in dressing changes. States that he continues to wear his compression stocking and tries to elevate when possible. He does assist in care for his so elevation at all times of rest poses difficulty. Denies trauma to the leg. Denies N/V/F/chills/SOB. Denies further complaints. Subjective Subjective 74-year-old male presents to the wound care center for continued care of bilateral lower extremity venous stasis ulcerations. He continues Unna boot compression and is tolerating this well. He is attempting to continue to elevate legs is much as possible. Reports has been released from hospital and transfered to extended care where she still continues to fight. Accompanied by daughter in law who notes wounds are improving. He denies constitutional symptoms. Denies further complaints today. Objective Data Objective Data Vital Signs: Vital Signs Temp Pulse Resp BP O2 Del Method 98.2 F 67 18 124/54 H Room Air 04/17/25 11:32 04/17/25 11:32 04/17/25 11:32 04/17/25 11:32 04/17/25 11:32 Oxygen Delivery Method Room Air Weight: 105.994 kg Body Mass Index (BMI) 35.5 Physical Exam Const alert, oriented x3 and no apparent distress General Appearance: cooperative HEENT normocephalic Eyes General Eye: normal appearance of both eyes Neck General: normal visual inspection Lymph Lymphatic: no lymphadenopathy noted and no lymphedema noted Resp normal respiratory effort Cardio regular rate and regular rhythm Extremity no calf tenderness Extremity Narrative: Bilateral lower extremity: Vascular: DP and PT pulses weakly palpable. CFT is less than 5 seconds to digits. Normal temperature gradient. Hair growth is absent to digits. Neurologic: Gross sensation intact. There is decreased protective sensation consistent with diabetic peripheral polyneuropathy. Musculoskeletal: Muscle strength 5 of 5 age-appropriate. There is decreased range of motion of the ankle joint dorsiflexion with the knee extended without pain or crepitus bilateral. There is decreased range of motion of the first metatarsophalangeal joint without pain or crepitus bilateral. No pain to palpation of calf bilateral. Dermatologic: Bilateral lower extremities demonstrate lipodermatosclerosis with hyperpigmentation to the pretibial region. Previous scaling/eczematous skin improved following compression of Unna boot therapy. Full-thickness ulceration to the right lower extremity remains healed. There are 2 full-thickness ulcerations to the left lower extremity 1 medial and 1 lateral. Both ulcerations demonstrate mixed fibrogranular layer, but are improving. No signs of infection. Skin no rashes or lesions noted General Skin Exam: venous stasis and dermatitis Neuro moves all extremities Debridement Note Debridement Note Wound debrided: Left lower extremity x 2 Laterality: Left Wound Grade/Stage: Swain stage I Type of Debridement: Excisional debridement Anesthesia Used: 5% Lidocaine Gel Depth: Down to and including healthy tissue and in the subcutaneous layer Percentage of wound debrided: 100 Instrument Used: 5mm curette Tissue Removed: Fibrous, devitalized subcutaneous, biofilm, slough Severity: Fat Layer Exposed Amount of bleeding with debridement: Mild Bleeding Controlled with: Compression and gauze Patient tolerated procedure: Patient tolerated procedure well Post-Debridement Measurements and Additional Note: Post-Debridement Measurements/Treatment - Nurse 1 - General Ulcer Assessment Start: 04/14/25 11:01 Freq: Status: Active Protocol: [email or web address] Activity Type Activity Date Activity User E-sign Co-sign Detail Recorded Client Recorded Date Recorded By Document 04/14/25 11:01 JF [id number] 04/14/25 11:02 JF Document 04/17/25 11:32 KW [id number] 04/17/25 11:45 KW 04/14/25 04/17/25 11:01 11:32 - Today's Visit Information Type of service Nurse-only Follow-up Visit Visit (Physician/INTERVENTION TEACHER ) Arrival Mode Ambulatory, Ambulatory, Walker Walker Accompanied by DIL Patient Identification Verified (Name & Yes Yes ) Patient Requires Transmission-Based No Precautions Height and Weight Body Mass Index (BMI) 35.5 35.5 BMI Classification Obese Obese Vital Signs Temperature (97.8 F-99.1 F) 98.3 F 98.2 F Temperature Source Temporal Temporal Pulse Rate (60-100) 70 67 Pulse Location Monitor Monitor Respiratory Rate (12-18) 16 18 Respiratory rate source Observation Observation Oxygen Delivery Method Room Air Blood Pressure (90/60-120/80) 118/58 L 124/54 H Blood Pressure Mean (mm Hg) 78 77 Source Monitor Monitor Position Semi-Fowlers Semi-Fowlers Blood Pressure Location Left Arm Left Arm History Since Last Visit- (Skip if this is Patient's initial visit) Have you changed medications since your No last visit? Any new allergies or adverse reactions No Had a fall/change in ADL's that may No increase risk of falls Signs or symptoms of abuse and/or No neglect since last visit Have you been in the hospital since your No last visit? Has dressing in place as prescribed Yes Has compression in place as prescribed Yes Has offloadiing in place as prescribed Yes Experienced any changes in pain level or No management Left Footwear Regular Shoe Regular Shoe Right Footwear Regular Shoe Regular Shoe Pain Scale: 0-10 Numeric Is Patient Pain Free? Yes Yes WC - Nurse 1 - General Ulcer Measurement Start: 04/14/25 11:01 Freq: Status: Active Protocol: Activity Type Activity Date Activity User E-sign Co-sign Detail Recorded Client Recorded Date Recorded By Document 04/14/25 11:01 [id number] 04/14/25 11:02 Document 04/17/25 11:32 [id number] 04/17/25 11:45 04/14/25 04/17/25 11:01 11:32 Wound Center Nurse 1 #5 LLE med -Current Size (cm) - Length 0.1 -Current Size (cm) - Width 0.1 -Current Size (cm) - Depth 0.1 -Total Square Cm 0.01 -Date of Last Picture (Recall this 04/17/25 field) -Exudate Amt Small -Exudate Type Serosanguineous -Wound Margin Distinct, Outline Attached -Granulation Amt Large (67-100%) -Granulation Quality Red -Texture (Lyndsey-wound Skin Appearance) Assessed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 to significant edema and previous heart failure. 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 This did lead to improvement in lower extremity edema however still does get swelling secondary to his chronic venous insufficiency which did lead to ulceration to the lateral aspect of the left leg. He had been undergoing local wound care in office over the course of 6 weeks with applications of Renuka however ulceration has failed to improve with this and compression stocking. Hecontinues to change dressing daily with Renuka and does have visiting nursing toassist in dressing changes. States that he continues to wear his compression stocking and tries to elevate when possible. He does assist in care for his so elevation at all times of rest poses difficulty. Denies trauma to the leg. Denies N/V/F/chills/SOB. Denies further complaints. Subjective Subjective 74-year-old male presents to the wound care center for continued care of bilateral lower extremity venous stasis ulcerations. He continues Unna boot compression and is tolerating this well. He is attempting to continue to elevate legs is much as possible. Reports is still in the hospital and is not doing well. He denies constitutional symptoms. Denies further complaints today. Objective Data Objective Data Vital Signs: Vital Signs Temp Pulse Resp BP O2 Del Method 98.7 F 92 20 H 108/57 L Room Air 04/10/25 08:12 04/10/25 08:12 04/10/25 08:12 04/10/25 08:12 04/08/25 14:20 Oxygen Delivery Method Room Air Weight: 105.994 kg Body Mass Index (BMI) 35.5 Physical Exam Const alert, oriented x3 and no apparent distress General Appearance: cooperative HEENT normocephalic Eyes General Eye: normal appearance of both eyes Neck General: normal visual inspection Lymph Lymphatic: no lymphadenopathy noted and no lymphedema noted Resp normal respiratory effort Cardio regular rate and regular rhythm Extremity no calf tenderness Extremity Narrative: Bilateral lower extremity: Vascular: DP and PT pulses weakly palpable. CFT is less than 5 seconds to digits. Normal temperature gradient. Hair growth is absent to digits. Neurologic: Gross sensation intact. There is decreased protective sensation consistent with diabetic peripheral polyneuropathy. Musculoskeletal: Muscle strength 5 of 5 age-appropriate. There is decreased range of motion of the ankle joint dorsiflexion with the knee extended without pain or crepitus bilateral. There is decreased range of motion of the first metatarsophalangeal joint without pain or crepitus bilateral. No pain to palpation of calf bilateral. Dermatologic: Bilateral lower extremities demonstrate lipodermatosclerosis with hyperpigmentation to the pretibial region. Previous scaling/eczematous skin hasimproved following compression of Unna boot therapy. Full-thickness ulceration to the right lower extremity remains healed. There are 2 full-thickness ulcerations to the left lower extremity 1 medial and 1 lateral. Both ulcerations demonstrate mixed fibrogranular layer. No signs of infection. Skin no rashes or lesions noted General Skin Exam: venous stasis and dermatitis Neuro moves all extremities Debridement Note Debridement Note Wound debrided: Left lower extremity x 2 Laterality: Left Wound Grade/Stage: Swain stage I Type of Debridement: Excisional debridement Anesthesia Used: 5% Lidocaine Gel Depth: Down to and including healthy tissue and in the subcutaneous layer Percentage of wound debrided: 100 Instrument Used: 5mm curette Tissue Removed: Fibrous, devitalized subcutaneous, biofilm, slough Severity: Fat Layer Exposed Amount of bleeding with debridement: Mild Bleeding Controlled with: Compression and gauze Patient tolerated procedure: Patient tolerated procedure well Post-Debridement Measurements and Additional Note: Post-Debridement Measurements/Treatment CLAUDETTE - Nurse 1 - General Ulcer Assessment Start: 03/27/25 14:52 Freq: Status: Active Protocol: WC.LOWEXT Activity Type Activity Date Activity User E-sign Co-sign Detail Recorded Client Recorded Date Recorded By Document 03/27/25 14:52 DL [id number] 03/27/25 15:07 DL Document 03/31/25 10:50 DL [id number] 03/31/25 11:15 DL Document 04/03/25 08:03 KW [id number] 04/03/25 08:17 KW Document 04/08/25 14:20 KW [id number] 04/08/25 14:45 KW Document 04/10/25 08:12 DL [id number] 04/10/25 08:25 DL 03/27/25 03/31/25 04/03/25 14:52 10:50 08:03 WC - Today's Visit Information Type of service Initial Visit Nurse-only Follow-up Visit Visit (Physician/INTERVENTION TEACHER ) Arrival Mode Ambulatory, Ambulatory, Ambulatory, Walker Walker Walker Transfer Assistance None None Patient Identification Verified (Name & Yes Yes Yes ) Patient Requires Transmission-Based No No Precautions Height and Weight Height 5 ft 8 in Weight 105.994 kg Weight in Pounds 233.7 lbs Body Mass Index (BMI) 35.5 35.5 35.5 BMI Classification Obese Obese Obese Vital Signs Temperature (97.8 F-99.1 F) 98.4 F 97.8 F 97.2 F L Temperature Source Temporal Temporal Temporal Pulse Rate (60-100) 71 93 81 Pulse Location Monitor Monitor Monitor Respiratory Rate (12-18) 18 22 H 18 Respiratory rate source Observation Observation Observation Oxygen Delivery Method Room Air Blood Pressure (90/60-120/80) 125/55 H 112/68 91/48 L Blood Pressure Mean (mm Hg) 78 82 62 Source Monitor Monitor Monitor Position Semi-Fowlers Blood Pressure Location Left Forearm History Since Last Visit- (Skip if this is Patient's initial visit) Have you changed medications since your No No last visit? Any new allergies or adverse reactions No No Had a fall/change in ADL's that may No No increase risk of falls Signs or symptoms of abuse and/or No No neglect since last visit Have you been in the hospital since your No No last visit? Has dressing in place as prescribed Yes Yes Has compression in place as prescribed Yes Yes Has offloadiing in place as prescribed N/A N/A Experienced any changes in pain level or No No management Left Footwear Regular Shoe Right Footwear Regular Shoe Pain Scale: 0-10 Numeric Is Patient Pain Free? Yes Yes Yes 04/08/25 04/10/25 14:20 08:12 - Today's Visit Information Type of service Nurse-only Follow-up Visit Visit (Physician/INTERVENTION TEACHER ) Arrival Mode Ambulatory, Ambulatory, Walker Walker Transfer Assistance None Patient Identification Verified (Name & Yes Yes ) Patient Requires Transmission-Based No Precautions Height and Weight Height Weight Weight in Pounds Body Mass Index (BMI) 35.5 35.5 BMI Classification Obese Obese Vital Signs Temperature (97.8 F-99.1 F) 97.8 F 98.7 F Temperature Source Temporal Temporal Pulse Rate (60-100) 68 92 Pulse Location Monitor Monitor Respiratory Rate (12-18) 18 20 H Respiratory rate source Observation Observation Oxygen Delivery Method Room Air Blood Pressure (90/60-120/80) 130/73 H 108/57 L Blood Pressure Mean (mm Hg) 92 74 Source Monitor Monitor Position Sitting Blood Pressure Location Left Arm History Since Last Visit- (Skip if this is Patient's initial visit) Have you changed medications since your No No last visit? Any new allergies or adverse reactions No No Had a fall/change in ADL's that may No No increase risk of falls Signs or symptoms of abuse and/or No No neglect since last visit Have you been in the hospital since your No No last visit? Has dressing in place as prescribed Yes Yes Has compression in place as prescribed Yes Yes Has offloadiing in place as prescribed N/A N/A Experienced any changes in pain level or No No management Left Footwear Regular Shoe Right Footwear Regular Shoe Pain Scale: 0-10 Numeric Is Patient Pain Free? Yes Yes - Nurse 1 - General Ulcer Measurement Start: 03/27/25 14:52 Freq: Status: Active Protocol: Activity Type Activity Date Activity User E-sign Co-sign Detail Recorded Client Recorded Date Recorded By Document 03/27/25 14:52 DL [id number] 03/27/25 15:07 DL Document 03/31/25 10:50 DL [id number] 03/31/25 11:15 DL Document 04/03/25 08:03 KW [id number] 04/03/25 08:17 KW Document 04/10/25 08:12 DL [id number] 04/10/25 08:25 DL 05/03/31/25 04/03/25 14:52 10:50 08:03 Wound Center Nurse 1 #4 RLE med -Current Size (cm) - Length 0.2 0.1 -Current Size (cm) - Width 0.2 0.1 -Current Size (cm) - Depth 0.2 0 -Total Square Cm 0.04 0.01 -Photo Taken Yes -Exudate Amt Medium None Present -Exudate Type Serosanguineous -Wound Margin Distinct, Indistinct, Non Outline -Visible Attached -Granulation Amt Small (1-33%) None Present (0 %) -Granulation Quality Red -Necrosis Amt Small (1-33%) None Present (0 %) -Necrotic Tissue Type Adherent Slough -Structure Exposed N/A -Texture (Lyndsey-wound Skin Appearance) Scarring Assessed -Moisture (Lyndsey-wound Skin Appearance) Dry/Scaly Assessed -Color (Lyndsey-wound Skin Appearance) Hemosiderin Assessed Staining -Temperature (Lyndsey-wound Skin No Abnormality No Abnormality No Abnormality Appearance) (Pt Warm) (Pt Warm) (Pt Warm) -Tenderness on Palpation (Lyndsey-wound No No No Skin Appearance) -Ulcer Cleansing Soap and Water Soap and Water Soap and Water -Foul Odor after Cleansing No No No -Anesthetic Used 5% Lidocaine Gel #5 LLE med -Current Size (cm) - Length 2.4 3 -Current Size (cm) - Width 3 4 -Current Size (cm) - Depth 0.2 0.1 -Total Square Cm 7.2 12 -Photo Taken Yes -Exudate Amt Medium Small -Exudate Type Serosanguineous Serosanguineous -Wound Margin Distinct, Distinct, Outline Outline Attached Attached -Granulation Amt Medium (34-66%) Large (67-100%) -Granulation Quality Red Red -Necrosis Amt Small (1-33%) Small (1-33%) -Necrotic Tissue Type Adherent Slough Adherent Slough -Structure Exposed N/A -Texture (Lyndsey-wound Skin Appearance) Scarring Assessed -Moisture (Lyndsey-wound Skin Appearance) No Abnormality Assessed -Color (Lyndsey-wound Skin Appearance) Mottled Assessed, Erythema -Temperature (Lyndsey-wound Skin No Abnormality No Abnormality No Abnormality Appearance) (Pt Warm) (Pt Warm) (Pt Warm) -Tenderness on Palpation (Lyndsey-wound No No No Skin Appearance) -Ulcer Cleansing Soap and Water Soap and Water Soap and Water -Foul Odor after Cleansing No No No -Anesthetic Used 5% Lidocaine 5% Lidocaine Gel Gel #3 LLE Lat Cluster -Current Size (cm) - Length 5 5.5 -Current Size (cm) - Width 1.4 1.8 -Current Size (cm) - Depth 0.2 0.1 -Total Square Cm 7.0 9.90 -Photo Taken Yes -Exudate Amt Medium Medium -Exudate Type Serosanguineous Serosanguineous -Wound Margin Distinct, Distinct, Outline Outline Attached Attached -Granulation Amt Large (67-100%) Large (67-100%) -Granulation Quality Red Red -Necrosis Amt Small (1-33%) Small (1-33%) -Necrotic Tissue Type Adherent Slough Adherent Slough -Structure Exposed N/A -Texture (Lyndsey-wound Skin Appearance) Scarring Assessed -Moisture (Lyndsey-wound Skin Appearance) Dry/Scaly Assessed -Color (Lyndsey-wound Skin Appearance) Hemosiderin Assessed, Staining Erythema -Temperature (Lyndsey-wound Skin No Abnormality No Abnormality Appearance) (Pt Warm) (Pt Warm) -Tenderness on Palpation (Lyndsey-wound No Skin Appearance) -Ulcer Cleansing Soap and Water Soap and Water Soap and Water -Foul Odor after Cleansing No No No -Anesthetic Used 5% Lidocaine 5% Lidocaine Gel Gel -Wound Comment(s) Unna boot only applied to vishnu LE. Right Calf (cm) 38.8 39.2 38.6 Right Ankle (cm) 28.7 27.4 28.5 Point of Measurement (cm from the distal point) Left Calf (cm) 45.2 40.5 39.5 Point of measurement (cm from the medial instep) Left Ankle (cm) 27.7 27.2 27.5 04/10/25 08:12 Wound Center Nurse 1 #4 RLE med -Current Size (cm) - Length -Current Size (cm) - Width -Current Size (cm) - Depth -Total Square Cm -Photo Taken -Exudate Amt -Exudate Type -Wound Margin -Granulation Amt -Granulation Quality -Necrosis Amt -Necrotic Tissue Type -Structure Exposed -Texture (Lyndsey-wound Skin Appearance) -Moisture (Lyndsey-wound Skin Appearance) -Color (Lyndsey-wound Skin Appearance) -Temperature (Lyndsey-wound Skin Appearance) -Tenderness on Palpation (Lyndsey-wound Skin Appearance) -Ulcer Cleansing -Foul Odor after Cleansing -Anesthetic Used #5 LLE med -Current Size (cm) - Length 1.6 -Current Size (cm) - Width 0.7 -Current Size (cm) - Depth 0.1 -Total Square Cm 1.12 -Photo Taken -Exudate Amt Medium -Exudate Type Serosanguineous -Wound Margin Distinct, Outline Attached -Granulation Amt Large (67-100%) -Granulation Quality Red -Necrosis Amt Small (1-33%) -Necrotic Tissue Type Adherent Slough -Structure Exposed N/A -Texture (Lyndsey-wound Skin Appearance) Scarring -Moisture (Lyndsey-wound Skin Appearance) No Abnormality -Color (Lyndsey-wound Skin Appearance) Hemosiderin Staining -Temperature (Lyndsey-wound Skin No Abnormality Appearance) (Pt Warm) -Tenderness on Palpation (Lyndsey-wound Skin Appearance) -Ulcer Cleansing Soap and Water -Foul Odor after Cleansing No -Anesthetic Used 5% Lidocaine Gel #3 LLE Lat Cluster -Current Size (cm) - Length 4.6 -Current Size (cm) - Width 1.5 -Current Size (cm) - Depth 0.1 -Total Square Cm 6.90 -Photo Taken -Exudate Amt Medium -Exudate Type Serosanguineous -Wound Margin Distinct, Outline Attached -Granulation Amt Medium (34-66%) -Granulation Quality Red -Necrosis Amt Medium (34-66%) -Necrotic Tissue Type Adherent Slough -Structure Exposed N/A -Texture (Lyndsey-wound Skin Appearance) Scarring -Moisture (Lyndsey-wound Skin Appearance) No Abnormality -Color (Lyndsey-wound Skin Appearance) Hemosiderin Staining -Temperature (Lyndsey-wound Skin No Abnormality Appearance) (Pt Warm) -Tenderness on Palpation (Lyndsey-wound Skin Appearance) -Ulcer Cleansing Soap and Water -Foul Odor after Cleansing No -Anesthetic Used 5% Lidocaine Gel -Wound Comment(s) Right Calf (cm) 38 Right Ankle (cm) 26.8 Point of Measurement (cm from the distal 37.5 point) Left Calf (cm) Point of measurement (cm from the medial 27.8 instep) Left Ankle (cm) WC - Nurse 2 - General Ulcer CM Notes Start: 03/27/25 14:52 Freq: Status: Active Protocol: Activity Type Activity Date Activity User E-sign Co-sign Detail Recorded Client Recorded Date Recorded By Document 03/27/25 15:28 [facility] [id number] 03/27/25 15:43 [facility] Document 04/03/25 08:44 [facility] [id number] 04/03/25 08:50 [facility] Document 04/10/25 08:36 [facility] [id number] 04/10/25 08:39 [facility] 03/27/25 04/03/25 04/10/25 15:28 08:44 08:36 Wound Center Nurse 2 #4 RLE med -Time 15:35 08:44 -Correct Patient Yes -Correct Side, Site, Position Yes -Correct Procedure Yes -Procedure Performed Yes No -Type of Procedure Debridement -Clinical Debridement Subcutaneous -Tissue Removed Subcutaneous -Post Debridement (cm) - Length 0.2 0 -Post Debridement (cm) - Width 0.2 0 -Post Debridement (cm) - Depth 0.2 0 -Total Square (Post) (cm) 0.04 0 -Area of Debridement (cm) - Length 0.2 0 -Area of Debridement (cm) - Width 0.2 0 -Total Square (Area) (cm) 0.04 0 -Tunneling No -Undermining/Tunneling No -Circular Undermining No -Wound/Ulcer Outcome Not Healed Healed- Epithelialized -Ulcer Cleansing Rinsed/ Irrigated with Saline -Foul Odor after Cleansing No -Bioengineered Tissue No -Bleeding Controlled with Pressure NA -Treatment Response Procedure Tolerated Well -Debridement - Subq, 1st 20sq cm No #5 LLE med -Time 15:34 08:45 08:37 -Correct Patient Yes Yes Yes -Correct Side, Site, Position Yes Yes Yes -Correct Procedure Yes Yes Yes -Procedure Performed Yes Yes Yes -Type of Procedure Debridement Debridement Debridement -Clinical Debridement Subcutaneous Subcutaneous Subcutaneous -Tissue Removed Subcutaneous Subcutaneous Subcutaneous -Post Debridement (cm) - Length 2.4 2 1.6 -Post Debridement (cm) - Width 3 1.5 1 -Post Debridement (cm) - Depth 0.2 0.1 0.1 -Total Square (Post) (cm) 7.2 3.0 1.6 -Area of Debridement (cm) - Length 2.4 2 1.6 -Area of Debridement (cm) - Width 3 1.5 1 -Total Square (Area) (cm) 7.2 3.0 1.6 -Tunneling No No No -Undermining/Tunneling No No No -Circular Undermining No No No -Wound/Ulcer Outcome Not Healed Not Healed Not Healed -Ulcer Cleansing Rinsed/ Rinsed/ Rinsed/ Irrigated with Irrigated with Irrigated with Saline Saline Saline -Foul Odor after Cleansing No No No -Bioengineered Tissue No No No -Bleeding Controlled with Pressure Pressure Pressure -Treatment Response Procedure Procedure Procedure Tolerated Well Tolerated Well Tolerated Well -Debridement - Subq, 1st 20sq cm Yes Yes Yes #3 LLE Lat Cluster -Time 15:35 08:45 08:37 -Correct Patient Yes Yes Yes -Correct Side, Site, Position Yes Yes Yes -Correct Procedure Yes Yes Yes -Procedure Performed Yes Yes Yes -Type of Procedure Debridement Debridement Debridement -Clinical Debridement Subcutaneous Subcutaneous Subcutaneous -Tissue Removed Subcutaneous Subcutaneous Subcutaneous -Post Debridement (cm) - Length 5 3 3.4 -Post Debridement (cm) - Width 1.4 2.2 2.5 -Post Debridement (cm) - Depth 0.2 0.1 0.1 -Total Square (Post) (cm) 7.0 6.6 8.50 -Area of Debridement (cm) - Length 5 3 3.4 -Area of Debridement (cm) - Width 1.4 2.2 2.5 -Total Square (Area) (cm) 7.0 6.6 8.50 -Tunneling No No No -Undermining/Tunneling No No No -Circular Undermining No No No -Wound/Ulcer Outcome Not Healed Not Healed Not Healed -Ulcer Cleansing Rinsed/ Rinsed/ Rinsed/ Irrigated with Irrigated with Irrigated with Saline Saline Saline -Foul Odor after Cleansing No No No -Bioengineered Tissue No No No -Bleeding Controlled with Pressure Pressure Pressure -Treatment Response Procedure Procedure Procedure Tolerated Well Tolerated Well Tolerated Well -Debridement - Subq, 1st 20sq cm No No No Pain Scale: 0-10 Numeric Is Patient Pain Free? Yes Yes Yes WC - Nurse 3 - General Ulcer D/C NN Start: 03/27/25 14:52 Freq: Status: Active Protocol: Activity Type Activity Date Activity User E-sign Co-sign Detail Recorded Client Recorded Date Recorded By Document 03/27/25 16:11 RB [id number] 03/27/25 16:12 RB Document 03/31/25 10:50 DL [id number] 03/31/25 11:15 DL Document 04/03/25 09:10 JF [id number] 04/03/25 09:11 JF Document 04/08/25 14:20 KW [id number] 04/08/25 14:45 KW Document 04/10/25 09:02 DL [id number] 04/10/25 09:03 DL 03/27/25 03/31/25 04/03/25 16:11 10:50 09:10 Wound Care Center Nurse 3 #5 LLE med -Ulcer Cleansing Rinsed/ Irrigated with Saline -Foul Odor after Cleansing No -Primary Dressing Applied Promogran Renuka Matter -Primary Dressing Covered/Secured with Dry Gauze -Promogran Renuka Matter 1 #3 LLE Lat Cluster -Ulcer Cleansing Rinsed/ Irrigated with Saline -Foul Odor after Cleansing No -Primary Dressing Applied Promogran Renuka Matter -Other Dressing -Primary Dressing Covered/Secured with Dry Gauze -Promogran Renuka Matter 0 -Wound Comment(s) BLE -Multi-Layered Wrap Application Unna Boot - Unna Boot - Unna Boot - Bilateral Bilateral Bilateral -Unna- Bilat (Qty applied) 1 1 1 Treatment Response Procedure Tolerated Well Pain Scale: 0-10 Numeric Is Patient Pain Free? Yes Yes Yes WC - Visit Discharge Discharge Condition Stable Stable Stable Ambulatory Status Ambulatory, Ambulatory Ambulatory, Walker Walker Transportation Private Auto Private Auto Private Auto Accompanied by friend Medication Reconcilliation completed & No Yes provided to patient/care provider Clinical Summary of Care Provided Yes Yes Notes: two boxes unnas used bilat 04/08/25 04/10/25 14:20 09:02 Wound Care Center Nurse 3 #5 LLE med -Ulcer Cleansing Soap and Water Rinsed/ Irrigated with Saline -Foul Odor after Cleansing -Primary Dressing Applied Promogran Promogran Renuka Matter Renuka Matter -Primary Dressing Covered/Secured with Dry Gauze & Roll Gauze, Secured with Tape -Promogran Renuka Matter 1 1 #3 LLE Lat Cluster -Ulcer Cleansing Soap and Water Rinsed/ Irrigated with Saline -Foul Odor after Cleansing No -Primary Dressing Applied -Other Dressing renuka Renuka -Primary Dressing Covered/Secured with Dry Gauze & Roll Gauze, Secured with Tape -Promogran Renuka Matter -Wound Comment(s) large clot noted on inf portion of cluster, larger ulcer BLE -Multi-Layered Wrap Application Unna Boot - Unna Boot - Bilateral Bilateral -Unna- Bilat (Qty applied) 1 1 Treatment Response Procedure Tolerated Well Pain Scale: 0-10 Numeric Is Patient Pain Free? Yes Yes WC - Visit Discharge Discharge Condition Stable Stable Ambulatory Status Ambulatory, Ambulatory, Walker Walker Transportation Private Auto Private Auto Accompanied by Medication Reconcilliation completed & No provided to patient/care provider Clinical Summary of Care Provided Yes Notes: Assessment/Plan Assessment/Plan (1) Non-pressure chronic ulcer of left calf with fat layer exposed: CODE(S): L97.222 - Non-pressure chronic ulcer of left calf with fat layer exposed (2) Venous insufficiency (chronic) (peripheral): CODE(S): I87.2 - Venous insufficiency (chronic) (peripheral) (3) Diabetes mellitus with diabetic polyneuropathy: CODE(S): E11.42 - Type 2 diabetes mellitus with diabetic polyneuropathy QUALIFIERS: Diabetes mellitus type: type 2 (4) Diabetes mellitus with ulcer of calf: CODE(S): E11.622 - Type 2 diabetes mellitus with other skin ulcer; L97.209- Non-pressure chronic ulcer of unspecified calf with unspecified severity (5) Bilateral lower extremity edema: CODE(S): R60.0 - Localized edema (6) Lipodermatosclerosis of both lower extremities: CODE(S): M79.3 - Panniculitis, unspecified PLAN: Plan Patient seen and evaluated Predebridement ulceration measurement: Right lower extremity healed Left medial lower extremity 1.5 x 0.9 x 0.1 cm Left lateral lower extremity 3.3 cm x 2.4 cm x 0.1 cm Ulceration underwent debridement as noted in the clinical panel above. Postdebridement measurement: Left medial lower extremity 1.6 cm x 1.0 cm x 0.1 cm; left lateral lower extremity 3.4 cm x 2.5 cm x 0.1 cm. Renuka applied to ulcerative bases and bilateral Unna boot compression was applied. Will return on 04/14/2025 for Unna boot change with nurse visit. There is reduction in size of the medial ulceration however the lateral aspect slightly increased in size most likely due to tearing of skin versus his previous visit. It has been discussed with the patient that he is to continue to sleep on flat mattress at night with leg elevation as much as possible at night and throughoutthe day to be heart level or higher. He has been advised against prolonged sitting. 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 He has been advised to not pick at any dry skin or excessively scrub while in the shower to prevent opening of ulcerations as his skin is friable. Skin continues to improve via use of bilateral Unna boot compression. Discussed signs and symptoms of infection. Discussed if he notices increasing redness about his legs moving up the leg, if he notices any purulent drainage from his wound sites, increasing foul odor from the wound sites, or if he experiences fever greater than 101 degree accompanied by nausea, vomiting, chills that these are signs of a progressing infection and he should report to the ED for IV antibiotic and further evaluation. He is understanding of this today. The following work up and care recommendations were made: Dressing: Renuka to ulcerative bed. Unna boot compression bilateral lower extremity Wash: Do not get wet. Utilize cast bag when showering to maintain compliance. Tissue growth optimization: Renuka Offload: Unna boot compression therapy Vascular: Vascular status not impeding healing, chronic venous stasis and lipodermatosclerosis do complicate healing. Edema: Unna boot compression therapy and elevation of lower extremities at all times of rest. Infection: No signs of infection currently. Will finish oral linezolid and continue with intranasal mupirocin. Pain: May take [id number] Tylenol Extra Strength for any discomfort. Currently no pain secondary to diabetic peripheral polyneuropathy Host factors: DM type II with peripheral polyneuropathy, lipodermatosclerosis/chronic venous stasis to complicate healing. He will return 04/14/2025 for change of Unna boot to bilateral lower extremities as nurse visit. I answered all the patient's questions. To return to the wound healing center in 1 week or call sooner if the patient has any questions or concerns. 04/10/25926 <Electronically signed by Shady Ogden DPM> Cosigner Signature (if applicable): CC: ~ Signed [facility] Work Phone: [phone] Progress note [facility] [address] [place] [address] Progress Note - Wound Care 04/10/25 0921 MR#: [id number] Acct: [id number] Name: ANDER MONTEIRO Rep #:[id number] : 1950 74 From: Shady hernandez DPM PCP: Dr. Freedom Sutton MD Status:REG R CR Location: History of Present Illness Date of Service: 04/10/25 Chief Complaint: Venous stasis ulceration left lower extremity History of Wound: This is a 74-year-old male who presents to the wound care center for continued aid in healing of a venous stasis ulceration to the lateralaspect of the left lower extremity. Ulceration is secondary to chronic venous insufficiency and lower extremity edema. He had been unable to wear his compression stockings due to significant edema and previous heart failure. 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 This did lead to improvement in lower extremity edema however still does get swelling secondary to his chronic venous insufficiency which did lead to ulceration to the lateral aspect of the left leg. He had been undergoing local woundcare in office over the course of 6 weeks with applications of Renuka however ulceration has failedto improve with this and compression stocking. Hecontinues to change dressing daily with Renuka andsara have visiting nursing toassist in dressing changes. States that he continues to wear his compression stocking and tries to elevate when possible. He does assist in care for his so elevationat all times of rest poses difficulty. Denies trauma to the leg. Denies N/V/F/chills/SOB. Denies further complaints. Subjective Subjective 74-year-old male presents to the wound care center for continued care of bilateral lower extremity venous stasis ulcerations. He continues Unna boot compression and is tolerating this well. He is attempting to continue to elevate legs is much as possible. Reports is still in the hospital and is not doing well. He denies constitutional symptoms. Denies further complaints today. Objective Data Objective Data Vital Signs: Vital Signs Temp Pulse Resp BP O2 Del Method 98.7 F 92 20 H 108/57 L Room Air 04/10/25 08:12 04/10/25 08:12 04/10/25 08:12 04/10/25 08:12 04/08/25 14:20 Oxygen Delivery Method Room Air Weight: 105.994 kg Body Mass Index (BMI) 35.5 Physical Exam Const alert, oriented x3 and no apparent distress General Appearance: cooperative HEENT normocephalic Eyes General Eye: normal appearance of both eyes Neck General: normal visual inspection Lymph Lymphatic: no lymphadenopathy noted and no lymphedema noted Resp normal respiratory effort Cardio regular rate and regular rhythm Extremity no calf tenderness Extremity Narrative: Bilateral lower extremity: Vascular: DP and PT pulses weakly palpable. CFT is less than 5 seconds to digits. Normal temperature gradient. Hair growth is absent to digits. Neurologic: Gross sensation intact. There is decreased protective sensation consistent with diabetic peripheral polyneuropathy. Musculoskeletal: Muscle strength 5 of 5 age-appropriate. There is decreased range of motion of the ankle joint dorsiflexion with the knee extended without pain or crepitus bilateral. There is decreased range of motion of the first metatarsophalangeal joint without pain or crepitus bilateral. No pain to palpation of calf bilateral. Dermatologic: Bilateral lower extremities demonstrate lipodermatosclerosis with hyperpigmentation to the pretibial region. Previous scaling/eczematous skin hasimproved following compression of Unna boot therapy. Full-thickness ulceration to the right lower extremity remains healed. There are 2 full- thickness ulcerations to the left lower extremity 1 medial and 1 lateral. Both ulcerations demonstrate mixed fibrogranular layer. No signs of infection. Skin no rashes or lesions noted General Skin Exam: venous stasis and dermatitis Neuro moves all extremities Debridement Note Debridement Note Wound debrided: Left lower extremity x 2 Laterality: Left Wound Grade/Stage: Swain stage I Type of Debridement: Excisional debridement Anesthesia Used: 5% Lidocaine Gel Depth: Down to and including healthy tissue and in the subcutaneous layer Percentage of wound debrided: 100 Instrument Used: 5mm curette Tissue Removed: Fibrous, devitalized subcutaneous, biofilm, slough Severity: Fat Layer Exposed Amount of bleeding with debridement: Mild Bleeding Controlled with: Compression and gauze Patient tolerated procedure: Patient tolerated procedure well Post-Debridement Measurements and Additional Note: Post-Debridement Measurements/Treatment CLAUDETTE - Nurse 1 - General Ulcer Assessment Start: 03/27/25 14:52 Freq: Status: Active Protocol: LIZZY Activity Type Activity Date Activity User E-sign Co-sign Detail Recorded Client Recorded Date Recorded By Document 03/27/25 14:52 DL [id number] 03/27/25 15:07 DL Document 03/31/25 10:50 DL [id number] 03/31/25 11:15 DL Document 04/03/25 08:03 KW [id number] 04/03/25 08:17 KW Document 04/08/25 14:20 KW [id number] 04/08/25 14:45 KW Document 04/10/25 08:12 DL [id number] 04/10/25 08:25 DL 03/27/25 03/31/25 04/03/25 14:52 10:50 08:03 WC - Today's Visit Information Type of service Initial Visit Nurse-only Follow-up Visit Visit (Physician/INTERVENTION TEACHER ) Arrival Mode Ambulatory, Ambulatory, Ambulatory, Walker Walker Walker Transfer Assistance None None Patient Identification Verified (Name & Yes Yes Yes ) Patient Requires Transmission-Based No No Precautions Height and Weight Height 5 ft 8 in Weight 105.994 kg Weight in Pounds 233.7 lbs Body Mass Index (BMI) 35.5 35.5 35.5 BMI Classification Obese Obese Obese Vital Signs Temperature (97.8 F-99.1 F) 98.4 F 97.8 F 97.2 F L Temperature Source Temporal Temporal Temporal Pulse Rate (60-100) 71 93 81 Pulse Location Monitor Monitor Monitor Respiratory Rate (12-18) 18 22 H 18 Respiratory rate source Observation Observation Observation Oxygen Delivery Method Room Air Blood Pressure (90/60-120/80) 125/55 H 112/68 91/48 L Blood Pressure Mean (mm Hg) 78 82 62 Source Monitor Monitor Monitor Position Semi-Fowlers Blood Pressure Location Left Forearm History Since Last Visit- (Skip if this is Patient's initial visit) Have you changed medications since your No No last visit? Any new allergies or adverse reactions No No Had a fall/change in ADL's that may No No increase risk of falls Signs or symptoms of abuse and/or No No neglect since last visit Have you been in the hospital since your No No last visit? Has dressing in place as prescribed Yes Yes Has compression in place as prescribed Yes Yes Has offloadiing in place as prescribed N/A N/A Experienced any changes in pain level or No No management Left Footwear Regular Shoe Right Footwear Regular Shoe Pain Scale: 0-10 Numeric Is Patient Pain Free? Yes Yes Yes 04/08/25 04/10/25 14:20 08:12 WC - Today's Visit Information Type of service Nurse-only Follow-up Visit Visit (Physician/INTERVENTION TEACHER ) Arrival Mode Ambulatory, Ambulatory, Walker Walker Transfer Assistance None Patient Identification Verified (Name & Yes Yes ) Patient Requires Transmission-Based No Precautions Height and Weight Height Weight Weight in Pounds Body Mass Index (BMI) 35.5 35.5 BMI Classification Obese Obese Vital Signs Temperature (97.8 F-99.1 F) 97.8 F 98.7 F Temperature Source Temporal Temporal Pulse Rate (60-100) 68 92 Pulse Location Monitor Monitor Respiratory Rate (12-18) 18 20 H Respiratory rate source Observation Observation Oxygen Delivery Method Room Air Blood Pressure (90/60-120/80) 130/73 H 108/57 L Blood Pressure Mean (mm Hg) 92 74 Source Monitor Monitor Position Sitting Blood Pressure Location Left Arm History Since Last Visit- (Skip if this is Patient's initial visit) Have you changed medications since your No No last visit? Any new allergies or adverse reactions No No Had a fall/change in ADL's that may No No increase risk of falls Signs or symptoms of abuse and/or No No neglect since last visit Have you been in the hospital since your No No last visit? Has dressing in place as prescribed Yes Yes Has compression in place as prescribed Yes Yes Has offloadiing in place as prescribed N/A N/A Experienced any changes in pain level or No No management Left Footwear Regular Shoe Right Footwear Regular Shoe Pain Scale: 0-10 Numeric Is Patient Pain Free? Yes Yes - Nurse 1 - General Ulcer Measurement Start: 03/27/25 14:52 Freq: Status: Active Protocol: Activity Type Activity Date Activity User E-sign Co-sign Detail Recorded Client Recorded Date Recorded By Document 03/27/25 14:52 DL [id number] 03/27/25 15:07 DL Document 03/31/25 10:50 DL [id number] 03/31/25 11:15 DL Document 04/03/25 08:03 KW [id number] 04/03/25 08:17 KW Document 04/10/25 08:12 DL [id number] 04/10/25 08:25 DL 05/15/25 05/19/25 05/22/25 14:52 10:50 08:03 Wound Center Nurse 1 #4 RLE med -Current Size (cm) - Length 0.2 0.1 -Current Size (cm) - Width 0.2 0.1 -Current Size (cm) - Depth 0.2 0 -Total Square Cm 0.04 0.01 -Photo Taken Yes -Exudate Amt Medium None Present -Exudate Type Serosanguineous -Wound Margin Distinct, Indistinct, Non Outline -Visible Attached -Granulation Amt Small (1-33%) None Present (0 %) -Granulation Quality Red -Necrosis Amt Small (1-33%) None Present (0 %) -Necrotic Tissue Type Adherent Slough -Structure Exposed N/A -Texture (Lyndsey-wound Skin Appearance) Scarring Assessed -Moisture (Lyndsey-wound Skin Appearance) Dry/Scaly Assessed -Color (Lyndsey-wound Skin Appearance) Hemosiderin Assessed Staining -Temperature (Lyndsey-wound Skin No Abnormality No Abnormality No Abnormality Appearance) (Pt Warm) (Pt Warm) (Pt Warm) -Tenderness on Palpation (Lyndsey-wound No No No Skin Appearance) -Ulcer Cleansing Soap and Water Soap and Water Soap and Water -Foul Odor after Cleansing No No No -Anesthetic Used 5% Lidocaine Gel #5 LLE med -Current Size (cm) - Length 2.4 3 -Current Size (cm) - Width 3 4 -Current Size (cm) - Depth 0.2 0.1 -Total Square Cm 7.2 12 -Photo Taken Yes -Exudate Amt Medium Small -Exudate Type Serosanguineous Serosanguineous -Wound Margin Distinct, Distinct, Outline Outline Attached Attached -Granulation Amt Medium (34-66%) Large (67-100%) -Granulation Quality Red Red -Necrosis Amt Small (1-33%) Small (1-33%) -Necrotic Tissue Type Adherent Slough Adherent Slough -Structure Exposed N/A -Texture (Lyndsey-wound Skin Appearance) Scarring Assessed -Moisture (Lyndsey-wound Skin Appearance) No Abnormality Assessed -Color (Lyndsey-wound Skin Appearance) Mottled Assessed, Erythema -Temperature (Lyndsey-wound Skin No Abnormality No Abnormality No Abnormality Appearance) (Pt Warm) (Pt Warm) (Pt Warm) -Tenderness on Palpation (Lyndsey-wound No No No Skin Appearance) -Ulcer Cleansing Soap and Water Soap and Water Soap and Water -Foul Odor after Cleansing No No No -Anesthetic Used 5% Lidocaine 5% Lidocaine Gel Gel #3 LLE Lat Cluster -Current Size (cm) - Length 5 5.5 -Current Size (cm) - Width 1.4 1.8 -Current Size (cm) - Depth 0.2 0.1 -Total Square Cm 7.0 9.90 -Photo Taken Yes -Exudate Amt Medium Medium -Exudate Type Serosanguineous Serosanguineous -Wound Margin Distinct, Distinct, Outline Outline Attached Attached -Granulation Amt Large (67-100%) Large (67-100%) -Granulation Quality Red Red -Necrosis Amt Small (1-33%) Small (1-33%) -Necrotic Tissue Type Adherent Slough Adherent Slough -Structure Exposed N/A -Texture (Lyndsey-wound Skin Appearance) Scarring Assessed -Moisture (Lyndsey-wound Skin Appearance) Dry/Scaly Assessed -Color (Lyndsey-wound Skin Appearance) Hemosiderin Assessed, Staining Erythema -Temperature (Lyndsey-wound Skin No Abnormality No Abnormality Appearance) (Pt Warm) (Pt Warm) -Tenderness on Palpation (Lyndsey-wound No Skin Appearance) -Ulcer Cleansing Soap and Water Soap and Water Soap and Water -Foul Odor after Cleansing No No No -Anesthetic Used 5% Lidocaine 5% Lidocaine Gel Gel -Wound Comment(s) Unna boot only applied to vishnu LE. Right Calf (cm) 38.8 39.2 38.6 Right Ankle (cm) 28.7 27.4 28.5 Point of Measurement (cm from the distal point) Left Calf (cm) 45.2 40.5 39.5 Point of measurement (cm from the medial instep) Left Ankle (cm) 27.7 27.2 27.5 04/10/25 08:12 Wound Center Nurse 1 #4 RLE med -Current Size (cm) - Length -Current Size (cm) - Width -Current Size (cm) - Depth -Total Square Cm -Photo Taken -Exudate Amt -Exudate Type -Wound Margin -Granulation Amt -Granulation Quality -Necrosis Amt -Necrotic Tissue Type -Structure Exposed -Texture (Lyndsey-wound Skin Appearance) -Moisture (Lyndsey-wound Skin Appearance) -Color (Lyndsey-wound Skin Appearance) -Temperature (Lyndsey-wound Skin Appearance) -Tenderness on Palpation (Lyndsey-wound Skin Appearance) -Ulcer Cleansing -Foul Odor after Cleansing -Anesthetic Used #5 LLE med -Current Size (cm) - Length 1.6 -Current Size (cm) - Width 0.7 -Current Size (cm) - Depth 0.1 -Total Square Cm 1.12 -Photo Taken -Exudate Amt Medium -Exudate Type Serosanguineous -Wound Margin Distinct, Outline Attached -Granulation Amt Large (67-100%) -Granulation Quality Red -Necrosis Amt Small (1-33%) -Necrotic Tissue Type Adherent Slough -Structure Exposed N/A -Texture (Lyndsey-wound Skin Appearance) Scarring -Moisture (Lyndsey-wound Skin Appearance) No Abnormality -Color (Lyndsey-wound Skin Appearance) Hemosiderin Staining -Temperature (Lyndsey-wound Skin No Abnormality Appearance) (Pt Warm) -Tenderness on Palpation (Lyndsey-wound Skin Appearance) -Ulcer Cleansing Soap and Water -Foul Odor after Cleansing No -Anesthetic Used 5% Lidocaine Gel #3 LLE Lat Cluster -Current Size (cm) - Length 4.6 -Current Size (cm) - Width 1.5 -Current Size (cm) - Depth 0.1 -Total Square Cm 6.90 -Photo Taken -Exudate Amt Medium -Exudate Type Serosanguineous -Wound Margin Distinct, Outline Attached -Granulation Amt Medium (34-66%) -Granulation Quality Red -Necrosis Amt Medium (34-66%) -Necrotic Tissue Type Adherent Slough -Structure Exposed N/A -Texture (Lyndsey-wound Skin Appearance) Scarring -Moisture (Lyndsey-wound Skin Appearance) No Abnormality -Color (Lyndsey-wound Skin Appearance) Hemosiderin Staining -Temperature (Lyndsey-wound Skin No Abnormality Appearance) (Pt Warm) -Tenderness on Palpation (Lyndsey-wound Skin Appearance) -Ulcer Cleansing Soap and Water -Foul Odor after Cleansing No -Anesthetic Used 5% Lidocaine Gel -Wound Comment(s) Right Calf (cm) 38 Right Ankle (cm) 26.8 Point of Measurement (cm from the distal 37.5 point) Left Calf (cm) Point of measurement (cm from the medial 27.8 instep) Left Ankle (cm) WC - Nurse 2 - General Ulcer CM Notes Start: 03/27/25 14:52 Freq: Status: Active Protocol: Activity Type Activity Date Activity User E-sign Co-sign Detail Recorded Client Recorded Date Recorded By Document 03/27/25 15:28 [facility] [id number] 03/27/25 15:43 [facility] Document 04/03/25 08:44 [facility] [id number] 04/03/25 08:50 [facility] Document 04/10/25 08:36 [facility] [id number] 04/10/25 08:39 [facility] 03/27/25 04/03/25 04/10/25 15:28 08:44 08:36 Wound Center Nurse 2 #4 E med -Time 15:35 08:44 -Correct Patient Yes -Correct Side, Site, Position Yes -Correct Procedure Yes -Procedure Performed Yes No -Type of Procedure Debridement -Clinical Debridement Subcutaneous -Tissue Removed Subcutaneous -Post Debridement (cm) - Length 0.2 0 -Post Debridement (cm) - Width 0.2 0 -Post Debridement (cm) - Depth 0.2 0 -Total Square (Post) (cm) 0.04 0 -Area of Debridement (cm) - Length 0.2 0 -Area of Debridement (cm) - Width 0.2 0 -Total Square (Area) (cm) 0.04 0 -Tunneling No -Undermining/Tunneling No -Circular Undermining No -Wound/Ulcer Outcome Not Healed Healed- Epithelialized -Ulcer Cleansing Rinsed/ Irrigated with Saline -Foul Odor after Cleansing No -Bioengineered Tissue No -Bleeding Controlled with Pressure NA -Treatment Response Procedure Tolerated Well -Debridement - Subq, 1st 20sq cm No #5 LLE med -Time 15:34 08:45 08:37 -Correct Patient Yes Yes Yes -Correct Side, Site, Position Yes Yes Yes -Correct Procedure Yes Yes Yes -Procedure Performed Yes Yes Yes -Type of Procedure Debridement Debridement Debridement -Clinical Debridement Subcutaneous Subcutaneous Subcutaneous -Tissue Removed Subcutaneous Subcutaneous Subcutaneous -Post Debridement (cm) - Length 2.4 2 1.6 -Post Debridement (cm) - Width 3 1.5 1 -Post Debridement (cm) - Depth 0.2 0.1 0.1 -Total Square (Post) (cm) 7.2 3.0 1.6 -Area of Debridement (cm) - Length 2.4 2 1.6 -Area of Debridement (cm) - Width 3 1.5 1 -Total Square (Area) (cm) 7.2 3.0 1.6 -Tunneling No No No -Undermining/Tunneling No No No -Circular Undermining No No No -Wound/Ulcer Outcome Not Healed Not Healed Not Healed -Ulcer Cleansing Rinsed/ Rinsed/ Rinsed/ Irrigated with Irrigated with Irrigated with Saline Saline Saline -Foul Odor after Cleansing No No No -Bioengineered Tissue No No No -Bleeding Controlled with Pressure Pressure Pressure -Treatment Response Procedure Procedure Procedure Tolerated Well Tolerated Well Tolerated Well -Debridement - Subq, 1st 20sq cm Yes Yes Yes #3 LLE Lat Cluster -Time 15:35 08:45 08:37 -Correct Patient Yes Yes Yes -Correct Side, Site, Position Yes Yes Yes -Correct Procedure Yes Yes Yes -Procedure Performed Yes Yes Yes -Type of Procedure Debridement Debridement Debridement -Clinical Debridement Subcutaneous Subcutaneous Subcutaneous -Tissue Removed Subcutaneous Subcutaneous Subcutaneous -Post Debridement (cm) - Length 5 3 3.4 -Post Debridement (cm) - Width 1.4 2.2 2.5 -Post Debridement (cm) - Depth 0.2 0.1 0.1 -Total Square (Post) (cm) 7.0 6.6 8.50 -Area of Debridement (cm) - Length 5 3 3.4 -Area of Debridement (cm) - Width 1.4 2.2 2.5 -Total Square (Area) (cm) 7.0 6.6 8.50 -Tunneling No No No -Undermining/Tunneling No No No -Circular Undermining No No No -Wound/Ulcer Outcome Not Healed Not Healed Not Healed -Ulcer Cleansing Rinsed/ Rinsed/ Rinsed/ Irrigated with Irrigated with Irrigated with Saline Saline Saline -Foul Odor after Cleansing No No No -Bioengineered Tissue No No No -Bleeding Controlled with Pressure Pressure Pressure -Treatment Response Procedure Procedure Procedure Tolerated Well Tolerated Well Tolerated Well -Debridement - Subq, 1st 20sq cm No No No Pain Scale: 0-10 Numeric Is Patient Pain Free? Yes Yes Yes - Nurse 3 - General Ulcer D/C NN Start: 03/27/25 14:52 Freq: Status: Active Protocol: Activity Type Activity Date Activity User E-sign Co-sign Detail Recorded Client Recorded Date Recorded By Document 03/27/25 16:11 RB [id number] 03/27/25 16:12 RB Document 03/31/25 10:50 DL [id number] 03/31/25 11:15 DL Document 04/03/25 09:10 JF [id number] 04/03/25 09:11 JF Document 04/08/25 14:20 KW [id number] 04/08/25 14:45 KW Document 04/10/25 09:02 DL [id number] 04/10/25 09:03 DL 03/27/25 03/31/25 04/03/25 16:11 10:50 09:10 Wound Care Center Nurse 3 #5 LLE med -Ulcer Cleansing Rinsed/ Irrigated with Saline -Foul Odor after Cleansing No -Primary Dressing Applied Promogran Renuka Matter -Primary Dressing Covered/Secured with Dry Gauze -Promogran Renuka Matter 1 #3 LLE Lat Cluster -Ulcer Cleansing Rinsed/ Irrigated with Saline -Foul Odor after Cleansing No -Primary Dressing Applied Promogran Renuka Matter -Other Dressing -Primary Dressing Covered/Secured with Dry Gauze -Promogran Renuka Matter 0 -Wound Comment(s) BLE -Multi-Layered Wrap Application Unna Boot - Unna Boot - Unna Boot - Bilateral Bilateral Bilateral -Unna- Bilat (Qty applied) 1 1 1 Treatment Response Procedure Tolerated Well Pain Scale: 0-10 Numeric Is Patient Pain Free? Yes Yes Yes WC - Visit Discharge Discharge Condition Stable Stable Stable Ambulatory Status Ambulatory, Ambulatory Ambulatory, Walker Walker Transportation Private Auto Private Auto Private Auto Accompanied by friend Medication Reconcilliation completed & No Yes provided to patient/care provider Clinical Summary of Care Provided Yes Yes Notes: two boxes unnas used bilat 04/08/25 04/10/25 14:20 09:02 Wound Care Center Nurse 3 #5 LLE med -Ulcer Cleansing Soap and Water Rinsed/ Irrigated with Saline -Foul Odor after Cleansing -Primary Dressing Applied Promogran Promogran Renuka Matter Renuka Matter -Primary Dressing Covered/Secured with Dry Gauze & Roll Gauze, Secured with Tape -Promogran Renuka Matter 1 1 #3 LLE Lat Cluster -Ulcer Cleansing Soap and Water Rinsed/ Irrigated with Saline -Foul Odor after Cleansing No -Primary Dressing Applied -Other Dressing renuka Renuka -Primary Dressing Covered/Secured with Dry Gauze & Roll Gauze, Secured with Tape -Promogran Renuka Matter -Wound Comment(s) large clot noted on inf portion of cluster, larger ulcer BLE -Multi-Layered Wrap Application Unna Boot - Unna Boot - Bilateral Bilateral -Unna- Bilat (Qty applied) 1 1 Treatment Response Procedure Tolerated Well Pain Scale: 0-10 Numeric Is Patient Pain Free? Yes Yes WC - Visit Discharge Discharge Condition Stable Stable Ambulatory Status Ambulatory, Ambulatory, Walker Walker Transportation Private Auto Private Auto Accompanied by Medication Reconcilliation completed & No provided to patient/care provider Clinical Summary of Care Provided Yes Notes: Assessment/Plan Assessment/Plan (1) Non-pressure chronic ulcer of left calf with fat layer exposed: CODE(S): L97.222 - Non-pressure chronic ulcer of left calf with fat layer exposed (2) Venous insufficiency (chronic) (peripheral): CODE(S): I87.2 - Venous insufficiency (chronic) (peripheral) (3) Diabetes mellitus with diabetic polyneuropathy: CODE(S): E11.42 - Type 2 diabetes mellitus with diabetic polyneuropathy QUALIFIERS: Diabetes mellitus type: type 2 (4) Diabetes mellitus with ulcer of calf: CODE(S): E11.622 - Type 2 diabetes mellitus with other skin ulcer; L97.209- Non- pressure chronic ulcer of unspecified calf with unspecified severity (5) Bilateral lower extremity edema: CODE(S): R60.0 - Localized edema (6) Lipodermatosclerosis of both lower extremities: CODE(S): M79.3 - Panniculitis, unspecified PLAN: Plan Patient seen and evaluated Predebridement ulceration measurement: Right lower extremity healed Left medial lower extremity 1.5 x 0.9 x 0.1 cm Left lateral lower extremity 3.3 cm x 2.4 cm x 0.1 cm Ulceration underwent debridement as noted in the clinical panel above. Postdebridement measurement:Left medial lower extremity 1.6 cm x 1.0 cm x 0.1 cm; left lateral lower extremity 3.4 cm x 2.5 cm x 0.1 cm. Renuka applied to ulcerative bases and bilateral Unna boot compression was applied. Will return on 04/14/2025 for Unna boot change with nurse visit. There is reduction in size of the medial ulceration however the lateral aspect slightly increased in size most likely due to tearing of skin versus his previous visit. It has been discussed with the patient that he is to continue to sleep on flat mattress at night with leg elevation as much as possible at night and throughoutthe day to be heart level or higher. He has been advised against prolonged sitting. 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 He has been advised to not pick at any dry skin or excessively scrub while in the shower to preventopening of ulcerations as his skin is friable. Skin continues to improve via use of bilateral Unna boot compression. Discussed signs and symptoms of infection. Discussed if he notices increasing redness about his legs moving up the leg, if he notices any purulent drainage from his wound sites, increasing foul odor from the wound sites, or if he experiences fever greater than 101 degree accompanied by nausea, vomiting, chills that these are signs of a progressing infection and he should report to the ED for IV antibiotic and further evaluation. He is understanding of this today. The following work up and care recommendations were made: Dressing: Renuka to ulcerative bed. Unna boot compression bilateral lower extremity Wash: Do not get wet. Utilize cast bag when showering to maintain compliance. Tissue growth optimization: Renuka Offload: Unna boot compression therapy Vascular: Vascular status not impeding healing, chronic venous stasis and lipodermatosclerosis do complicate healing. Edema: Unna boot compression therapy and elevation of lower extremities at all times of rest. Infection: No signs of infection currently. Will finish oral linezolid and continue with intranasalmupirocin. Pain: May take [id number] Tylenol Extra Strength for any discomfort. Currently no pain secondary to diabetic peripheral polyneuropathy Host factors: DM type II with peripheral polyneuropathy, lipodermatosclerosis/chronic venous stasisto complicate healing. He will return 04/14/2025 for change of Unna boot to bilateral lower extremities as nurse visit. I answered all the patient's questions. To return to the wound healing center in 1 week or call sooner if the patient has any questions or concerns. 04/10/25 0952 Cosigner Signature (if applicable): CC: ~ Signed [facility]05-22-2025 Progress note Author Shady Ogden [facility] Note Date/Time April 03, 2025 9:16a m [facility] [address] [place] [address] Progress Note - Wound Care 04/03/25 0902 MR#: [id number] Acct: [id number] Name: ANDER MONTEIRO Rep #:[id number] : 1950 74 From: Shady hernandez DPM PCP: Dr. Freedom Sutton MD Status:REG R CR Location: History of Present Illness Date of Service: 04/03/25 Chief Complaint: Venous stasis ulceration left lower extremity History of Wound: This is a 74-year-old male who presents to the wound care center for continued aid in healing of a venous stasis ulceration to the lateralaspect of the left lower extremity. Ulceration is secondary to chronic venous insufficiency and lower extremity edema. He had been unable to wear his compression stockings due to significant edema and previous heart failure. 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 This did lead to improvement in lower extremity edema however still does get swelling secondary to his chronic venous insufficiency which did lead to ulceration to the lateral aspect of the left leg. He had been undergoing local wound care in office over the course of 6 weeks with applications of Renuka however ulceration has failed to improve with this and compression stocking. Hecontinues to change dressing daily with Renuka and does have visiting nursing toassist in dressing changes. States that he continues to wear his compression stocking and tries to elevate when possible. He does assist in care for his so elevation at all times of rest poses difficulty. Denies trauma to the leg. Denies N/V/F/chills/SOB. Denies further complaints. Subjective Subjective 74-year-old male presents to the wound care center for continued care of bilateral lower extremity venous stasis ulcerations. He had previously seen last week and Unna boot compression was applied following debridement. Heis attempting to continue to elevate legs is much as possible. Stating he believes reulceration occurred due to scrubbing and picking skin in the shower. He denies constitutional symptoms. Denies further complaints today. Objective Data Objective Data Vital Signs: Vital Signs Temp Pulse Resp BP O2 Del Method 97.2 F L 81 18 91/48 L Room Air 04/03/25 08:03 04/03/25 08:03 04/03/25 08:03 04/03/25 08:03 04/03/25 08:03 Oxygen Delivery Method Room Air Weight: 105.994 kg Body Mass Index (BMI) 35.5 Physical Exam Const alert, oriented x3 and no apparent distress General Appearance: cooperative HEENT normocephalic Eyes General Eye: normal appearance of both eyes Neck General: normal visual inspection Lymph Lymphatic: no lymphadenopathy noted and no lymphedema noted Resp normal respiratory effort Cardio regular rate and regular rhythm Extremity no calf tenderness Extremity Narrative: Bilateral lower extremity: Vascular: DP and PT pulses weakly palpable. CFT is less than 5 seconds to digits. Normal temperature gradient. Hair growth is absent to digits. Neurologic: Gross sensation intact. There is decreased protective sensation consistent with diabetic peripheral polyneuropathy. Musculoskeletal: Muscle strength 5 of 5 age-appropriate. There is decreased range of motion of the ankle joint dorsiflexion with the knee extended without pain or crepitus bilateral. There is decreased range of motion of the first metatarsophalangeal joint without pain or crepitus bilateral. No pain to palpation of calf bilateral. Dermatologic: Bilateral lower extremities demonstrate lipodermatosclerosis with hyperpigmentation to the pretibial region. Previous scaling/eczematous skin hasimproved following compression of Unna boot therapy. Full-thickness ulceration to the right lower extremity has healed. There are 2 full-thickness ulcerationsto the left lower extremity 1 medial and 1 lateral. Both ulcerations demonstrate mixed fibrogranular layer. No signs of infection. Skin no rashes or lesions noted General Skin Exam: venous stasis and dermatitis Neuro moves all extremities Debridement Note Debridement Note Wound debrided: Left lower extremity x 2 Laterality: Left Wound Grade/Stage: Swain stage I Type of Debridement: Excisional debridement Anesthesia Used: 5% Lidocaine Gel Depth: Down to and including healthy tissue and in the subcutaneous layer Percentage of wound debrided: 100 Instrument Used: 5mm curette Tissue Removed: Fibrous, devitalized subcutaneous, biofilm, slough Severity: Fat Layer Exposed Amount of bleeding with debridement: Mild Bleeding Controlled with: Compression and gauze Patient tolerated procedure: Patient tolerated procedure well Post-Debridement Measurements and Additional Note: Post-Debridement Measurements/Treatment CLAUDETTE - Nurse 1 - General Ulcer Assessment Start: 03/27/25 14:52 Freq: Status: Active Protocol: LIZZY Activity Type Activity Date Activity User E-sign Co-sign Detail Recorded Client Recorded Date Recorded By Document 03/27/25 14:52 DL [id number] 03/27/25 15:07 DL Document 03/31/25 10:50 DL [id number] 03/31/25 11:15 DL Document 04/03/25 08:03 KW [id number] 04/03/25 08:17 KW 03/27/25 03/31/25 04/03/25 14:52 10:50 08:03 WC - Today's Visit Information Type of service Initial Visit Nurse-only Follow-up Visit Visit (Physician/INTERVENTION TEACHER ) Arrival Mode Ambulatory, Ambulatory, Ambulatory, Walker Walker Walker Transfer Assistance None None Patient Identification Verified (Name & Yes Yes Yes ) Patient Requires Transmission-Based No No Precautions Height and Weight Height 5 ft 8 in Weight 105.994 kg Weight in Pounds 233.7 lbs Body Mass Index (BMI) 35.5 35.5 35.5 BMI Classification Obese Obese Obese Vital Signs Temperature (97.8 F-99.1 F) 98.4 F 97.8 F 97.2 F L Temperature Source Temporal Temporal Temporal Pulse Rate (60-100) 71 93 81 Pulse Location Monitor Monitor Monitor Respiratory Rate (12-18) 18 22 H 18 Respiratory rate source Observation Observation Observation Oxygen Delivery Method Room Air Blood Pressure (90/60-120/80) 125/55 H 112/68 91/48 L Blood Pressure Mean (mm Hg) 78 82 62 Source Monitor Monitor Monitor Position Semi-Fowlers Blood Pressure Location Left Forearm History Since Last Visit- (Skip if this is Patient's initial visit) Have you changed medications since your No No last visit? Any new allergies or adverse reactions No No Had a fall/change in ADL's that may No No increase risk of falls Signs or symptoms of abuse and/or No No neglect since last visit Have you been in the hospital since your No No last visit? Has dressing in place as prescribed Yes Yes Has compression in place as prescribed Yes Yes Has offloadiing in place as prescribed N/A N/A Experienced any changes in pain level or No No management Left Footwear Regular Shoe Right Footwear Regular Shoe Pain Scale: 0-10 Numeric Is Patient Pain Free? Yes Yes Yes WC - Nurse 1 - General Ulcer Measurement Start: 03/27/25 14:52 Freq: Status: Active Protocol: Activity Type Activity Date Activity User E-sign Co-sign Detail Recorded Client Recorded Date Recorded By Document 03/27/25 14:52 DL [id number] 03/27/25 15:07 DL Document 03/31/25 10:50 DL [id number] 03/31/25 11:15 DL Document 04/03/25 08:03 KW [id number] 04/03/25 08:17 KW 03/27/25 03/31/25 04/03/25 14:52 10:50 08:03 Wound Center Nurse 1 #4 RLE med -Current Size (cm) - Length 0.2 0.1 -Current Size (cm) - Width 0.2 0.1 -Current Size (cm) - Depth 0.2 0 -Total Square Cm 0.04 0.01 -Photo Taken Yes -Exudate Amt Medium None Present -Exudate Type Serosanguineous -Wound Margin Distinct, Indistinct, Non Outline -Visible Attached -Granulation Amt Small (1-33%) None Present (0 %) -Granulation Quality Red -Necrosis Amt Small (1-33%) None Present (0 %) -Necrotic Tissue Type Adherent Slough -Structure Exposed N/A -Texture (Lyndsey-wound Skin Appearance) Scarring Assessed -Moisture (Lyndsey-wound Skin Appearance) Dry/Scaly Assessed -Color (Lyndsey-wound Skin Appearance) Hemosiderin Assessed Staining -Temperature (Lyndsey-wound Skin No Abnormality No Abnormality No Abnormality Appearance) (Pt Warm) (Pt Warm) (Pt Warm) -Tenderness on Palpation (Lyndsey-wound No No No Skin Appearance) -Ulcer Cleansing Soap and Water Soap and Water Soap and Water -Foul Odor after Cleansing No No No -Anesthetic Used 5% Lidocaine Gel #5 LLE med -Current Size (cm) - Length 2.4 3 -Current Size (cm) - Width 3 4 -Current Size (cm) - Depth 0.2 0.1 -Total Square Cm 7.2 12 -Photo Taken Yes -Exudate Amt Medium Small -Exudate Type Serosanguineous Serosanguineous -Wound Margin Distinct, Distinct, Outline Outline Attached Attached -Granulation Amt Medium (34-66%) Large (67-100%) -Granulation Quality Red Red -Necrosis Amt Small (1-33%) Small (1-33%) -Necrotic Tissue Type Adherent Slough Adherent Slough -Structure Exposed N/A -Texture (Lyndsey-wound Skin Appearance) Scarring Assessed -Moisture (Lyndsey-wound Skin Appearance) No Abnormality Assessed -Color (Lyndsey-wound Skin Appearance) Mottled Assessed, Erythema -Temperature (Lyndsey-wound Skin No Abnormality No Abnormality No Abnormality Appearance) (Pt Warm) (Pt Warm) (Pt Warm) -Tenderness on Palpation (Lyndsey-wound No No No Skin Appearance) -Ulcer Cleansing Soap and Water Soap and Water Soap and Water -Foul Odor after Cleansing No No No -Anesthetic Used 5% Lidocaine 5% Lidocaine Gel Gel #3 LLE Lat Cluster -Current Size (cm) - Length 5 5.5 -Current Size (cm) - Width 1.4 1.8 -Current Size (cm) - Depth 0.2 0.1 -Total Square Cm 7.0 9.90 -Photo Taken Yes -Exudate Amt Medium Medium -Exudate Type Serosanguineous Serosanguineous -Wound Margin Distinct, Distinct, Outline Outline Attached Attached -Granulation Amt Large (67-100%) Large (67-100%) -Granulation Quality Red Red -Necrosis Amt Small (1-33%) Small (1-33%) -Necrotic Tissue Type Adherent Slough Adherent Slough -Structure Exposed N/A -Texture (Lyndsey-wound Skin Appearance) Scarring Assessed -Moisture (Lyndsey-wound Skin Appearance) Dry/Scaly Assessed -Color (Lyndsey-wound Skin Appearance) Hemosiderin Assessed, Staining Erythema -Temperature (Lyndsey-wound Skin No Abnormality No Abnormality Appearance) (Pt Warm) (Pt Warm) -Tenderness on Palpation (Lyndsey-wound No Skin Appearance) -Ulcer Cleansing Soap and Water Soap and Water Soap and Water -Foul Odor after Cleansing No No No -Anesthetic Used 5% Lidocaine 5% Lidocaine Gel Gel -Wound Comment(s) Unna boot only applied to vishnu LE. Right Calf (cm) 38.8 39.2 38.6 Right Ankle (cm) 28.7 27.4 28.5 Left Calf (cm) 45.2 40.5 39.5 Left Ankle (cm) 27.7 27.2 27.5 WC - Nurse 2 - General Ulcer CM Notes Start: 03/27/25 14:52 Freq: Status: Active Protocol: Activity Type Activity Date Activity User E-sign Co-sign Detail Recorded Client Recorded Date Recorded By Document 03/27/25 15:28 [facility] [id number] 03/27/25 15:43 [facility] Document 04/03/25 08:44 [facility] [id number] 04/03/25 08:50 [facility] 03/27/25 04/03/25 15:28 08:44 Wound Center Nurse 2 #4 E med -Time 15:35 08:44 -Correct Patient Yes -Correct Side, Site, Position Yes -Correct Procedure Yes -Procedure Performed Yes No -Type of Procedure Debridement -Clinical Debridement Subcutaneous -Tissue Removed Subcutaneous -Post Debridement (cm) - Length 0.2 0 -Post Debridement (cm) - Width 0.2 0 -Post Debridement (cm) - Depth 0.2 0 -Total Square (Post) (cm) 0.04 0 -Area of Debridement (cm) - Length 0.2 0 -Area of Debridement (cm) - Width 0.2 0 -Total Square (Area) (cm) 0.04 0 -Tunneling No -Undermining/Tunneling No -Circular Undermining No -Wound/Ulcer Outcome Not Healed Healed- Epithelialized -Ulcer Cleansing Rinsed/ Irrigated with Saline -Foul Odor after Cleansing No -Bioengineered Tissue No -Bleeding Controlled with Pressure NA -Treatment Response Procedure Tolerated Well -Debridement - Subq, 1st 20sq cm No #5 LLE med -Time 15:34 08:45 -Correct Patient Yes Yes -Correct Side, Site, Position Yes Yes -Correct Procedure Yes Yes -Procedure Performed Yes Yes -Type of Procedure Debridement Debridement -Clinical Debridement Subcutaneous Subcutaneous -Tissue Removed Subcutaneous Subcutaneous -Post Debridement (cm) - Length 2.4 2 -Post Debridement (cm) - Width 3 1.5 -Post Debridement (cm) - Depth 0.2 0.1 -Total Square (Post) (cm) 7.2 3.0 -Area of Debridement (cm) - Length 2.4 2 -Area of Debridement (cm) - Width 3 1.5 -Total Square (Area) (cm) 7.2 3.0 -Tunneling No No -Undermining/Tunneling No No -Circular Undermining No No -Wound/Ulcer Outcome Not Healed Not Healed -Ulcer Cleansing Rinsed/ Rinsed/ Irrigated with Irrigated with Saline Saline -Foul Odor after Cleansing No No -Bioengineered Tissue No No -Bleeding Controlled with Pressure Pressure -Treatment Response Procedure Procedure Tolerated Well Tolerated Well -Debridement - Subq, 1st 20sq cm Yes Yes #3 LLE Lat Cluster -Time 15:35 08:45 -Correct Patient Yes Yes -Correct Side, Site, Position Yes Yes -Correct Procedure Yes Yes -Procedure Performed Yes Yes -Type of Procedure Debridement Debridement -Clinical Debridement Subcutaneous Subcutaneous -Tissue Removed Subcutaneous Subcutaneous -Post Debridement (cm) - Length 5 3 -Post Debridement (cm) - Width 1.4 2.2 -Post Debridement (cm) - Depth 0.2 0.1 -Total Square (Post) (cm) 7.0 6.6 -Area of Debridement (cm) - Length 5 3 -Area of Debridement (cm) - Width 1.4 2.2 -Total Square (Area) (cm) 7.0 6.6 -Tunneling No No -Undermining/Tunneling No No -Circular Undermining No No -Wound/Ulcer Outcome Not Healed Not Healed -Ulcer Cleansing Rinsed/ Rinsed/ Irrigated with Irrigated with Saline Saline -Foul Odor after Cleansing No No -Bioengineered Tissue No No -Bleeding Controlled with Pressure Pressure -Treatment Response Procedure Procedure Tolerated Well Tolerated Well -Debridement - Subq, 1st 20sq cm No No Pain Scale: 0-10 Numeric Is Patient Pain Free? Yes Yes - Nurse 3 - General Ulcer D/C NN Start: 03/27/25 14:52 Freq: Status: Active Protocol: Activity Type Activity Date Activity User E-sign Co-sign Detail Recorded Client Recorded Date Recorded By Document 03/27/25 16:11 RB [id number] 03/27/25 16:12 RB Document 03/31/25 10:50 DL [id number] 03/31/25 11:15 DL 03/27/25 03/31/25 16:11 10:50 Wound Care Center Nurse 3 BLE -Multi-Layered Wrap Application Unna Boot - Unna Boot - Bilateral Bilateral -Unna- Bilat (Qty applied) 1 1 Treatment Response Procedure Tolerated Well Pain Scale: 0-10 Numeric Is Patient Pain Free? Yes Yes - Visit Discharge Discharge Condition Stable Stable Ambulatory Status Ambulatory, Ambulatory Walker Transportation Private Auto Private Auto Medication Reconcilliation completed & No provided to patient/care provider Clinical Summary of Care Provided Yes Notes: two boxes unnas used bilat Assessment/Plan Assessment/Plan (1) Non-pressure chronic ulcer of left calf with fat layer exposed: CODE(S): L97.222 - Non-pressure chronic ulcer of left calf with fat layer exposed (2) Venous insufficiency (chronic) (peripheral): CODE(S): I87.2 - Venous insufficiency (chronic) (peripheral) (3) Diabetes mellitus with diabetic polyneuropathy: CODE(S): E11.42 - Type 2 diabetes mellitus with diabetic polyneuropathy QUALIFIERS: Diabetes mellitus type: type 2 (4) Diabetes mellitus with ulcer of calf: CODE(S): E11.622 - Type 2 diabetes mellitus with other skin ulcer; L97.209- Non-pressure chronic ulcer of unspecified calf with unspecified severity (5) Bilateral lower extremity edema: CODE(S): R60.0 - Localized edema (6) Lipodermatosclerosis of both lower extremities: CODE(S): M79.3 - Panniculitis, unspecified PLAN: Plan Patient seen and evaluated Predebridement ulceration measurement: Right lower extremity healed Left medial lower extremity 2.0 x 1.4 x 0.1 cm Left lateral lower extremity 2.9 cm x 2.1 cm x 0.1 cm Ulceration underwent debridement as noted in the clinical panel above. Postdebridement measurement: Left medial lower extremity 2.1 cm x 1.5 cm x 0.1 cm; left lateral lower extremity 3.0 cm x 2.2 cm x 0.1 cm. Renuka applied to ulcerative bases and bilateral Unna boot compression was applied. Will return on 04/08/2025 for Unna boot change with nurse visit. It has been discussed with the patient that he is to continue to sleep on flat mattress at night with leg elevation as much as possible at night and throughoutthe day to be heart level or higher. He has been advised against prolonged sitting. 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 He has been advised to not pick at any dry skin or excessively scrub while in the shower to prevent opening of ulcerations as his skin is friable. Skin continues to improve via use of bilateral Unna boot compression. Discussed signs and symptoms of infection. Discussed if he notices increasing redness about his legs moving up the leg, if he notices any purulent drainage from his wound sites, increasing foul odor from the wound sites, or if he experiences fever greater than 101 degree accompanied by nausea, vomiting, chills that these are signs of a progressing infection and he should report to the ED for IV antibiotic and further evaluation. He is understanding of this today. The following work up and care recommendations were made: Dressing: Renuka to ulcerative bed. Unna boot compression bilateral lower extremity Wash: Do not get wet. Utilize cast bag when showering to maintain compliance. Tissue growth optimization: Renuka Offload: Unna boot compression therapy Vascular: Vascular status not impeding healing, chronic venous stasis and lipodermatosclerosis do complicate healing. Edema: Unna boot compression therapy and elevation of lower extremities at all times of rest. Infection: No signs of infection currently. Will finish oral linezolid and continue with intranasal mupirocin. Pain: May take [id number] Tylenol Extra Strength for any discomfort. Currently no pain secondary to diabetic peripheral polyneuropathy Host factors: DM type II with peripheral polyneuropathy, lipodermatosclerosis/chronic venous stasis to complicate healing. He will return 04/08/2025 for change of Unna boot to bilateral lower extremities as nurse visit. I answered all the patient's questions. To return to the wound healing center in 1 week or call sooner if the patient has any questions or concerns. 04/03/2516 <Electronically signed by Shady Ogden DPM> Cosigner Signature (if applicable): CC: ~ Signed [facility] Work Phone: [phone] 116-823605-22-2025 Progress note [facility] [address] [place] [address] Progress Note - Wound Care 04/03/25 0902 MR#: [id number] Acct: [id number] Name: ANDER MONTEIRO Rep #:[id number] : 1950 74 From: Shady hernandez DPM PCP: Dr. Freedom Sutton MD Status:REG R CR Location: History of Present Illness Date of Service: 04/03/25 Chief Complaint: Venous stasis ulceration left lower extremity History of Wound: This is a 74-year-old male who presents to the wound care center for continued aid in healing of a venous stasis ulceration to the lateralaspect of the left lower extremity. Ulceration is secondary to chronic venous insufficiency and lower extremity edema. He had been unable to wear his compression stockings due to significant edema and previous heart failure. 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 This did lead to improvement in lower extremity edema however still does get swelling secondary to his chronic venous insufficiency which did lead to ulceration to the lateral aspect of the left leg. He had been undergoing local woundcare in office over the course of 6 weeks with applications of Renuka however ulceration has failedto improve with this and compression stocking. Hecontinues to change dressing daily with Renuka anddoes have visiting nursing toassist in dressing changes. States that he continues to wear his compression stocking and tries to elevate when possible. He does assist in care for his so elevationat all times of rest poses difficulty. Denies trauma to the leg. Denies N/V/F/chills/SOB. Denies further complaints. Subjective Subjective 74-year-old male presents to the wound care center for continued care of bilateral lower extremity venous stasis ulcerations. He had previously seen last week and Unna boot compression was applied following debridement. Heis attempting to continue to elevate legs is much as possible. Stating he believes reulceration occurred due to scrubbing and picking skin in the shower. He denies constitutional symptoms. Denies further complaints today. Objective Data Objective Data Vital Signs: Vital Signs Temp Pulse Resp BP O2 Del Method 97.2 F L 81 18 91/48 L Room Air 04/03/25 08:03 04/03/25 08:03 04/03/25 08:03 04/03/25 08:03 04/03/25 08:03 Oxygen Delivery Method Room Air Weight: 105.994 kg Body Mass Index (BMI) 35.5 Physical Exam Const alert, oriented x3 and no apparent distress General Appearance: cooperative HEENT normocephalic Eyes General Eye: normal appearance of both eyes Neck General: normal visual inspection Lymph Lymphatic: no lymphadenopathy noted and no lymphedema noted Resp normal respiratory effort Cardio regular rate and regular rhythm Extremity no calf tenderness Extremity Narrative: Bilateral lower extremity: Vascular: DP and PT pulses weakly palpable. CFT is less than 5 seconds to digits. Normal temperature gradient. Hair growth is absent to digits. Neurologic: Gross sensation intact. There is decreased protective sensation consistent with diabetic peripheral polyneuropathy. Musculoskeletal: Muscle strength 5 of 5 age-appropriate. There is decreased range of motion of the ankle joint dorsiflexion with the knee extended without pain or crepitus bilateral. There is decreased range of motion of the first metatarsophalangeal joint without pain or crepitus bilateral. No pain to palpation of calf bilateral. Dermatologic: Bilateral lower extremities demonstrate lipodermatosclerosis with hyperpigmentation to the pretibial region. Previous scaling/eczematous skin hasimproved following compression of Unna boot therapy. Full-thickness ulceration to the right lower extremity has healed. There are 2 full-thickness ulcerationsto the left lower extremity 1 medial and 1 lateral. Both ulcerations demonstrate mixed fibrogranular layer. No signs of infection. Skin no rashes or lesions noted General Skin Exam: venous stasis and dermatitis Neuro moves all extremities Debridement Note Debridement Note Wound debrided: Left lower extremity x 2 Laterality: Left Wound Grade/Stage: Swain stage I Type of Debridement: Excisional debridement Anesthesia Used: 5% Lidocaine Gel Depth: Down to and including healthy tissue and in the subcutaneous layer Percentage of wound debrided: 100 Instrument Used: 5mm curette Tissue Removed: Fibrous, devitalized subcutaneous, biofilm, slough Severity: Fat Layer Exposed Amount of bleeding with debridement: Mild Bleeding Controlled with: Compression and gauze Patient tolerated procedure: Patient tolerated procedure well Post-Debridement Measurements and Additional Note: Post-Debridement Measurements/Treatment WC - Nurse 1 - General Ulcer Assessment Start: 03/27/25 14:52 Freq: Status: Active Protocol: LIZZY Activity Type Activity Date Activity User E-sign Co-sign Detail Recorded Client Recorded Date Recorded By Document 03/27/25 14:52 DL [id number] 03/27/25 15:07 DL Document 03/31/25 10:50 DL [id number] 03/31/25 11:15 DL Document 04/03/25 08:03 KW [id number] 04/03/25 08:17 KW 03/27/25 03/31/25 04/03/25 14:52 10:50 08:03 - Today's Visit Information Type of service Initial Visit Nurse-only Follow-up Visit Visit (Physician/INTERVENTION TEACHER ) Arrival Mode Ambulatory, Ambulatory, Ambulatory, Walker Walker Walker Transfer Assistance None None Patient Identification Verified (Name & Yes Yes Yes ) Patient Requires Transmission-Based No No Precautions Height and Weight Height 5 ft 8 in Weight 105.994 kg Weight in Pounds 233.7 lbs Body Mass Index (BMI) 35.5 35.5 35.5 BMI Classification Obese Obese Obese Vital Signs Temperature (97.8 F-99.1 F) 98.4 F 97.8 F 97.2 F L Temperature Source Temporal Temporal Temporal Pulse Rate (60-100) 71 93 81 Pulse Location Monitor Monitor Monitor Respiratory Rate (12-18) 18 22 H 18 Respiratory rate source Observation Observation Observation Oxygen Delivery Method Room Air Blood Pressure (90/60-120/80) 125/55 H 112/68 91/48 L Blood Pressure Mean (mm Hg) 78 82 62 Source Monitor Monitor Monitor Position Semi-Fowlers Blood Pressure Location Left Forearm History Since Last Visit- (Skip if this is Patient's initial visit) Have you changed medications since your No No last visit? Any new allergies or adverse reactions No No Had a fall/change in ADL's that may No No increase risk of falls Signs or symptoms of abuse and/or No No neglect since last visit Have you been in the hospital since your No No last visit? Has dressing in place as prescribed Yes Yes Has compression in place as prescribed Yes Yes Has offloadiing in place as prescribed N/A N/A Experienced any changes in pain level or No No management Left Footwear Regular Shoe Right Footwear Regular Shoe Pain Scale: 0-10 Numeric Is Patient Pain Free? Yes Yes Yes WC - Nurse 1 - General Ulcer Measurement Start: 03/27/25 14:52 Freq: Status: Active Protocol: Activity Type Activity Date Activity User E-sign Co-sign Detail Recorded Client Recorded Date Recorded By Document 03/27/25 14:52 DL [id number] 03/27/25 15:07 DL Document 03/31/25 10:50 DL [id number] 03/31/25 11:15 DL Document 04/03/25 08:03 KW [id number] 04/03/25 08:17 KW 03/27/25 03/31/25 04/03/25 14:52 10:50 08:03 Wound Center Nurse 1 #4 RLE med -Current Size (cm) - Length 0.2 0.1 -Current Size (cm) - Width 0.2 0.1 -Current Size (cm) - Depth 0.2 0 -Total Square Cm 0.04 0.01 -Photo Taken Yes -Exudate Amt Medium None Present -Exudate Type Serosanguineous -Wound Margin Distinct, Indistinct, Non Outline -Visible Attached -Granulation Amt Small (1-33%) None Present (0 %) -Granulation Quality Red -Necrosis Amt Small (1-33%) None Present (0 %) -Necrotic Tissue Type Adherent Slough -Structure Exposed N/A -Texture (Lyndsey-wound Skin Appearance) Scarring Assessed -Moisture (Lyndesy-wound Skin Appearance) Dry/Scaly Assessed -Color (Lyndsey-wound Skin Appearance) Hemosiderin Assessed Staining -Temperature (Lyndsey-wound Skin No Abnormality No Abnormality No Abnormality Appearance) (Pt Warm) (Pt Warm) (Pt Warm) -Tenderness on Palpation (Lyndsey-wound No No No Skin Appearance) -Ulcer Cleansing Soap and Water Soap and Water Soap and Water -Foul Odor after Cleansing No No No -Anesthetic Used 5% Lidocaine Gel #5 LLE med -Current Size (cm) - Length 2.4 3 -Current Size (cm) - Width 3 4 -Current Size (cm) - Depth 0.2 0.1 -Total Square Cm 7.2 12 -Photo Taken Yes -Exudate Amt Medium Small -Exudate Type Serosanguineous Serosanguineous -Wound Margin Distinct, Distinct, Outline Outline Attached Attached -Granulation Amt Medium (34-66%) Large (67-100%) -Granulation Quality Red Red -Necrosis Amt Small (1-33%) Small (1-33%) -Necrotic Tissue Type Adherent Slough Adherent Slough -Structure Exposed N/A -Texture (Lyndsey-wound Skin Appearance) Scarring Assessed -Moisture (Lyndsey-wound Skin Appearance) No Abnormality Assessed -Color (Lyndsey-wound Skin Appearance) Mottled Assessed, Erythema -Temperature (Lyndsey-wound Skin No Abnormality No Abnormality No Abnormality Appearance) (Pt Warm) (Pt Warm) (Pt Warm) -Tenderness on Palpation (Lyndsey-wound No No No Skin Appearance) -Ulcer Cleansing Soap and Water Soap and Water Soap and Water -Foul Odor after Cleansing No No No -Anesthetic Used 5% Lidocaine 5% Lidocaine Gel Gel #3 LLE Lat Cluster -Current Size (cm) - Length 5 5.5 -Current Size (cm) - Width 1.4 1.8 -Current Size (cm) - Depth 0.2 0.1 -Total Square Cm 7.0 9.90 -Photo Taken Yes -Exudate Amt Medium Medium -Exudate Type Serosanguineous Serosanguineous -Wound Margin Distinct, Distinct, Outline Outline Attached Attached -Granulation Amt Large (67-100%) Large (67-100%) -Granulation Quality Red Red -Necrosis Amt Small (1-33%) Small (1-33%) -Necrotic Tissue Type Adherent Slough Adherent Slough -Structure Exposed N/A -Texture (Lyndsey-wound Skin Appearance) Scarring Assessed -Moisture (Lyndsey-wound Skin Appearance) Dry/Scaly Assessed -Color (Lyndsey-wound Skin Appearance) Hemosiderin Assessed, Staining Erythema -Temperature (Lyndsey-wound Skin No Abnormality No Abnormality Appearance) (Pt Warm) (Pt Warm) -Tenderness on Palpation (Lyndsey-wound No Skin Appearance) -Ulcer Cleansing Soap and Water Soap and Water Soap and Water -Foul Odor after Cleansing No No No -Anesthetic Used 5% Lidocaine 5% Lidocaine Gel Gel -Wound Comment(s) Unna boot only applied to vishnu LE. Right Calf (cm) 38.8 39.2 38.6 Right Ankle (cm) 28.7 27.4 28.5 Left Calf (cm) 45.2 40.5 39.5 Left Ankle (cm) 27.7 27.2 27.5 WC - Nurse 2 - General Ulcer CM Notes Start: 03/27/25 14:52 Freq: Status: Active Protocol: Activity Type Activity Date Activity User E-sign Co-sign Detail Recorded Client Recorded Date Recorded By Document 03/27/25 15:28 [facility] [id number] 03/27/25 15:43 [facility] Document 04/03/25 08:44 [facility] [id number] 04/03/25 08:50 [facility] 03/27/25 04/03/25 15:28 08:44 Wound Center Nurse 2 #4 RLE med -Time 15:35 08:44 -Correct Patient Yes -Correct Side, Site, Position Yes -Correct Procedure Yes -Procedure Performed Yes No -Type of Procedure Debridement -Clinical Debridement Subcutaneous -Tissue Removed Subcutaneous -Post Debridement (cm) - Length 0.2 0 -Post Debridement (cm) - Width 0.2 0 -Post Debridement (cm) - Depth 0.2 0 -Total Square (Post) (cm) 0.04 0 -Area of Debridement (cm) - Length 0.2 0 -Area of Debridement (cm) - Width 0.2 0 -Total Square (Area) (cm) 0.04 0 -Tunneling No -Undermining/Tunneling No -Circular Undermining No -Wound/Ulcer Outcome Not Healed Healed- Epithelialized -Ulcer Cleansing Rinsed/ Irrigated with Saline -Foul Odor after Cleansing No -Bioengineered Tissue No -Bleeding Controlled with Pressure NA -Treatment Response Procedure Tolerated Well -Debridement - Subq, 1st 20sq cm No #5 LLE med -Time 15:34 08:45 -Correct Patient Yes Yes -Correct Side, Site, Position Yes Yes -Correct Procedure Yes Yes -Procedure Performed Yes Yes -Type of Procedure Debridement Debridement -Clinical Debridement Subcutaneous Subcutaneous -Tissue Removed Subcutaneous Subcutaneous -Post Debridement (cm) - Length 2.4 2 -Post Debridement (cm) - Width 3 1.5 -Post Debridement (cm) - Depth 0.2 0.1 -Total Square (Post) (cm) 7.2 3.0 -Area of Debridement (cm) - Length 2.4 2 -Area of Debridement (cm) - Width 3 1.5 -Total Square (Area) (cm) 7.2 3.0 -Tunneling No No -Undermining/Tunneling No No -Circular Undermining No No -Wound/Ulcer Outcome Not Healed Not Healed -Ulcer Cleansing Rinsed/ Rinsed/ Irrigated with Irrigated with Saline Saline -Foul Odor after Cleansing No No -Bioengineered Tissue No No -Bleeding Controlled with Pressure Pressure -Treatment Response Procedure Procedure Tolerated Well Tolerated Well -Debridement - Subq, 1st 20sq cm Yes Yes #3 LLE Lat Cluster -Time 15:35 08:45 -Correct Patient Yes Yes -Correct Side, Site, Position Yes Yes -Correct Procedure Yes Yes -Procedure Performed Yes Yes -Type of Procedure Debridement Debridement -Clinical Debridement Subcutaneous Subcutaneous -Tissue Removed Subcutaneous Subcutaneous -Post Debridement (cm) - Length 5 3 -Post Debridement (cm) - Width 1.4 2.2 -Post Debridement (cm) - Depth 0.2 0.1 -Total Square (Post) (cm) 7.0 6.6 -Area of Debridement (cm) - Length 5 3 -Area of Debridement (cm) - Width 1.4 2.2 -Total Square (Area) (cm) 7.0 6.6 -Tunneling No No -Undermining/Tunneling No No -Circular Undermining No No -Wound/Ulcer Outcome Not Healed Not Healed -Ulcer Cleansing Rinsed/ Rinsed/ Irrigated with Irrigated with Saline Saline -Foul Odor after Cleansing No No -Bioengineered Tissue No No -Bleeding Controlled with Pressure Pressure -Treatment Response Procedure Procedure Tolerated Well Tolerated Well -Debridement - Subq, 1st 20sq cm No No Pain Scale: 0-10 Numeric Is Patient Pain Free? Yes Yes - Nurse 3 - General Ulcer D/C NN Start: 03/27/25 14:52 Freq: Status: Active Protocol: Activity Type Activity Date Activity User E-sign Co-sign Detail Recorded Client Recorded Date Recorded By Document 03/27/25 16:11 RB [id number] 03/27/25 16:12 RB Document 03/31/25 10:50 DL [id number] 03/31/25 11:15 DL 03/27/25 03/31/25 16:11 10:50 Wound Care Center Nurse 3 BLE -Multi-Layered Wrap Application Unna Boot - Unna Boot - Bilateral Bilateral -Unna- Bilat (Qty applied) 1 1 Treatment Response Procedure Tolerated Well Pain Scale: 0-10 Numeric Is Patient Pain Free? Yes Yes WC - Visit Discharge Discharge Condition Stable Stable Ambulatory Status Ambulatory, Ambulatory Walker Transportation Private Auto Private Auto Medication Reconcilliation completed & No provided to patient/care provider Clinical Summary of Care Provided Yes Notes: two boxes unnas used bilat Assessment/Plan Assessment/Plan (1) Non-pressure chronic ulcer of left calf with fat layer exposed: CODE(S): L97.222 - Non-pressure chronic ulcer of left calf with fat layer exposed (2) Venous insufficiency (chronic) (peripheral): CODE(S): I87.2 - Venous insufficiency (chronic) (peripheral) (3) Diabetes mellitus with diabetic polyneuropathy: CODE(S): E11.42 - Type 2 diabetes mellitus with diabetic polyneuropathy QUALIFIERS: Diabetes mellitus type: type 2 (4) Diabetes mellitus with ulcer of calf: CODE(S): E11.622 - Type 2 diabetes mellitus with other skin ulcer; L97.209- Non- pressure chronic ulcer of unspecified calf with unspecified severity (5) Bilateral lower extremity edema: CODE(S): R60.0 - Localized edema (6) Lipodermatosclerosis of both lower extremities: CODE(S): M79.3 - Panniculitis, unspecified PLAN: Plan Patient seen and evaluated Predebridement ulceration measurement: Right lower extremity healed Left medial lower extremity 2.0 x 1.4 x 0.1 cm Left lateral lower extremity 2.9 cm x 2.1 cm x 0.1 cm Ulceration underwent debridement as noted in the clinical panel above. Postdebridement measurement:Left medial lower extremity 2.1 cm x 1.5 cm x 0.1 cm; left lateral lower extremity 3.0 cm x 2.2 cm x 0.1 cm. Renuka applied to ulcerative bases and bilateral Unna boot compression was applied. Will return on 04/08/2025 for Unna boot change with nurse visit. It has been discussed with the patient that he is to continue to sleep on flat mattress at night with leg elevation as much as possible at night and throughoutthe day to be heart level or higher. He has been advised against prolonged sitting. 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 He has been advised to not pick at any dry skin or excessively scrub while in the shower to preventopening of ulcerations as his skin is friable. Skin continues to improve via use of bilateral Unna boot compression. Discussed signs and symptoms of infection. Discussed if he notices increasing redness about his legs moving up the leg, if he notices any purulent drainage from his wound sites, increasing foul odor from the wound sites, or if he experiences fever greater than 101 degree accompanied by nausea, vomiting, chills that these are signs of a progressing infection and he should report to the ED for IV antibiotic and further evaluation. He is understanding of this today. The following work up and care recommendations were made: Dressing: Renuka to ulcerative bed. Unna boot compression bilateral lower extremity Wash: Do not get wet. Utilize cast bag when showering to maintain compliance. Tissue growth optimization: Renuka Offload: Unna boot compression therapy Vascular: Vascular status not impeding healing, chronic venous stasis and lipodermatosclerosis do complicate healing. Edema: Unna boot compression therapy and elevation of lower extremities at all times of rest. Infection: No signs of infection currently. Will finish oral linezolid and continue with intranasalmupirocin. Pain: May take [id number] Tylenol Extra Strength for any discomfort. Currently no pain secondary to diabetic peripheral polyneuropathy Host factors: DM type II with peripheral polyneuropathy, lipodermatosclerosis/chronic venous stasisto complicate healing. He will return 04/08/2025 for change of Unna boot to bilateral lower extremities as nurse visit. I answered all the patient's questions. To return to the wound healing center in 1 week or call sooner if the patient has any questions or concerns. 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 March 17, 2025 3: 29pm Hypertension chronic March 17 3:29pm S/P TAVR (transcatheter aort ic valve replacement) chronic March 17, 2025 3:29pm Aortic stenosis acute March 18, 2025 4:43pm Atrial fibrillation acute March 182024 4:43pm Bilateral lower extremity edema acut e March 18, 2025 4:43pm BPH (benign prostatic hyperplasia) a cute March 18, 2025 4:43pm Debility acute March 18, 2025 4:43pm Diabetes mellitus with diabe tic polyneuropathy acute March 18, 2025 4: 43pm Diabetes mellitus with ulcer of calf acute March 18, 2025 4: 43pm HLD (hyperlipidemia) acute March 18, 2025 4:43pm 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 acute March 18, 2025 4: 43pm Hypertension chronic March 18 4:43pm 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 chronic March 18, 2025 4:43pm S/P TAVR (transcatheter aort ic valve replacement) chronic March 18, 2025 4:43pm Venous insufficiency (chroni c) (peripheral) chronic March 18, 2025 4: 43pm Bilateral lower extremity edema acut e April 10, 2025 8:15am Diabetes mellitus with diabe tic polyneuropathy acute April 10, 2025 8:15am Diabetes mellitus with ulcer of calf acute April 10, 2025 8:15am Lipodermatosclerosis of both lower extremities acute April 10, 2025 8:15am 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 chronic April 10, 2025 8:15am Venous insufficiency (chroni c) (peripheral) chronic April 10, 2025 8:15am Bilateral lower extremity edema acut e May 08, 2025 8:00am Diabetes mellitus with diabe tic polyneuropathy acute May 08, 2025 8:00am Diabetes mellitus with ulcer of calf acute May 08, 2025 8:00am Lipodermatosclerosis of both lower extremities acute May 08, 2025 8:00am 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 chronic May 08, 2025 8:00am Venous insufficiency (chroni c) (peripheral) chronic May 08, 2025 8:00am [facility] Work Phone: 1(572) 451-799505-05-2025 Evaluation note* Diagnosis Onset Date Resolution Status Admit Date Atrial fibrillation acute March 172024 3:29pm 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 March 17, 2025 3: 29pm Hypertension chronic March 17 3:29pm S/P TAVR (transcatheter aort ic valve replacement) chronic March 17, 2025 3:29pm Aortic stenosis acute March 18, 2025 4:43pm Atrial fibrillation acute March 182024 4:43pm Bilateral lower extremity edema acut e March 18, 2025 4:43pm BPH (benign prostatic hyperplasia) a cute March 18, 2025 4:43pm Debility acute March 18, 2025 4:43pm Diabetes mellitus with diabe tic polyneuropathy acute March 18, 2025 4: 43pm Diabetes mellitus with ulcer of calf acute March 18, 2025 4: 43pm HLD (hyperlipidemia) acute March 18, 2025 4:43pm 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 acute March 18, 2025 4: 43pm Hypertension chronic March 18 4:43pm 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 chronic March 18, 2025 4:43pm S/P TAVR (transcatheter aort ic valve replacement) chronic March 18, 2025 4:43pm Venous insufficiency (chroni c) (peripheral) chronic March 18, 2025 4: 43pm Bilateral lower extremity edema acut e April 10, 2025 8:15am Diabetes mellitus with diabe tic polyneuropathy acute April 10, 2025 8:15am Diabetes mellitus with ulcer of calf acute April 10, 2025 8:15am Lipodermatosclerosis of both lower extremities acute April 10, 2025 8:15am 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 chronic April 10, 2025 8:15am Venous insufficiency (chroni c) (peripheral) chronic April 10, 2025 8:15am Bilateral lower extremity edema acut e May 08, 2025 8:00am Diabetes mellitus with diabe tic polyneuropathy acute May 08, 2025 8:00am Diabetes mellitus with ulcer of calf acute May 08, 2025 8:00am Lipodermatosclerosis of both lower extremities acute May 08, 2025 8:00am 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 chronic May 08, 2025 8:00am Venous insufficiency (chroni c) (peripheral) chronic May 08, 2025 8:00am Bilateral lower extremity edema acut e May 15, 2025 8:13am Diabetes mellitus with diabe tic polyneuropathy acute May 15, 2025 8:13am Diabetes mellitus with ulcer of calf acute May 15, 2025 8:13am Lipodermatosclerosis of both lower extremities acute May 15, 2025 8:13am 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 chronic May 15, 2025 8:13am Venous insufficiency (chroni c) (peripheral) chronic May 15, 2025 8:13am [facility] Work Phone: 1(618) 851-787802-27-2025 Evaluation note* Diagnosis Onset Date Resolution Status Admit Date Atrial fibrillation acute Febru jethro2024 8:45am Bilateral lower extremity edema acut e January 09, 2025 8:45am Debility acute January 09, 2025 8:45am Diabetes mellitus with diabe tic polyneuropathy acute January 09, 025 8:45am Diabetes mellitus with ulcer of calf acute January 09 025 8:45am 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 chronic Febr uary 2024 8:45am Venous insufficiency (chroni c) (peripheral) chronic January 09 025 8:45am Atrial fibrillation acute March 172024 3:29pm 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 acute March 17, 2025 3: 29pm Hypertension chronic March 17 3:29pm S/P TAVR (transcatheter aort ic valve replacement) chronic March 17, 2025 3:29pm Aortic stenosis acute March 18, 2025 4:43pm Atrial fibrillation acute March 182024 4:43pm Bilateral lower extremity edema acut e March 18, 2025 4:43pm BPH (benign prostatic hyperplasia) a cute March 18, 2025 4:43pm Debility acute March 18, 2025 4:43pm Diabetes mellitus with diabe tic polyneuropathy acute March 18, 2025 4: 43pm Diabetes mellitus with ulcer of calf acute March 18, 2025 4: 43pm HLD (hyperlipidemia) acute March 18, 2025 4:43pm 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 acute March 18, 2025 4: 43pm Hypertension chronic March 18 4:43pm 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 chronic March 18, 2025 4:43pm S/P TAVR (transcatheter aort ic valve replacement) chronic March 18, 2025 4:43pm Venous insufficiency (chroni c) (peripheral) chronic March 18, 2025 4: 43pm Bilateral lower extremity edema acut e April 10, 2025 8:15am Diabetes mellitus with diabe tic polyneuropathy acute April 10, 2025 8 :15am Diabetes mellitus with ulcer of calf acute April 10, 2025 8 :15am Lipodermatosclerosis of both lower extremities acute April 10, 2025 8 :15am 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 chronic April 10, 2025 8:15am Venous insufficiency (chroni c) (peripheral) chronic April 10, 2025 8 :15am [facility] Work Phone: 1([phone]) 947-801501-30-2025 Evaluation note* Diagnosis Onset Date Resolution Status Admit Date Atrial fibrillation acute 2024 8:30am Bilateral lower extremity edema acut e December 12, 2024 8:30am Debility acute December 12, 2024 8:30am Diabetes mellitus with diabe tic polyneuropathy acute December 12 8:30am Diabetes mellitus with ulcer of calf acute December 12 8:30am 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 chronic December 12 8:30am Venous insufficiency (chroni c) (peripheral) chronic December 12 8:30am Atrial fibrillation acute 2024 8:45am Bilateral lower extremity edema acut e January 09, 2025 8:45am Debility acute January 09, 2025 8:45am Diabetes mellitus with diabe tic polyneuropathy acute January 09, 025 8:45am Diabetes mellitus with ulcer of calf acute January 09, 025 8:45am 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 chronic January 09 025 8:45am Venous insufficiency (chroni c) (peripheral) chronic January 09 2 025 8:45am [facility] Work Phone: 1(913) 213-727301-30-2025 Evaluation note* Diagnosis Onset Date Resolution Status Admit Date Atrial fibrillation acute 2024 8:30am Bilateral lower extremity edema acut e December 12, 2024 8:30am Debility acute December 12, 2024 8:30am Diabetes mellitus with diabe tic polyneuropathy acute December 12 8:30am Diabetes mellitus with ulcer of calf acute December 12 8:30am 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 chronic December 12 8:30am Venous insufficiency (chroni c) (peripheral) chronic December 12 8:30am Atrial fibrillation acute 2024 8:45am Bilateral lower extremity edema acut e January 09, 2025 8:45am Debility acute January 09, 2025 8:45am Diabetes mellitus with diabe tic polyneuropathy acute January 09, 2 025 8:45am Diabetes mellitus with ulcer of calf acute January 09, 2 025 8:45am 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 chronic January 09, 2 025 8:45am Venous insufficiency (chroni c) (peripheral) chronic January 09 025 8:45am Atrial fibrillation acute March 172024 3:29pm 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 acute March 17, 2025 3: 29pm Hypertension chronic March 17 3:29pm S/P TAVR (transcatheter aort ic valve replacement) chronic March 17, 2025 3:29pm [facility] Work Phone: 1(529) 489-126309-03-2024 Evaluation + Plan note* Assessment & Plan Note - PHILIP Alonso CNP - 07/16/2024 2:39 PM EDTAssociated Problem(s): Severe aortic stenosis S/p femoral TAVR with 29 mm Ileana S3 on 07/08/24 -stable -continue warfarin, INR due this week by [facility] nurse -repeat echo in one month -reviewed SBE prophylaxis-patient is edentulous -discussed Cardiac Rehab-patient declines at this time but will consider in future. Advised CardiacRehab can be done in [place]. [id number] Miscellaneous Notes* Assessment & Plan Note - HPILIP Alonso CNP - 07/16/2024 2:39 PM EDTAssociated Problem(s): Severe aortic stenosis S/p femoral TAVR with 29 mm Ileana S3 on 07/08/24 -stable -continue warfarin, INR due this week by [facility] nurse -repeat echo in one month -reviewed SBE prophylaxis-patient is edentulous -discussed Cardiac Rehab-patient declines at this time but will consider in future. Advised CardiacRehab can be done in [place]. * Assessment & Plan Note - PHILIP Alonso CNP - 07/16/2024 2:36 PM EDT Associated Problem(s): Longstanding persistent atrial fibrillation (HCC) EKG shows AFib with HR 66 -rate well controlled -currently on warfarin. Patient and son plan to discuss switching to Eliquis at next office visit in one month * Assessment & Plan Note - PHILIP Alonso CNP - 07/16/2024 2:33 PM EDT Associated Problem(s): Coronary artery disease involving [place] coronary artery of [place] heart without angina pectoris Moderate LAD stenosis noted on cath -denies angina -continue simvastatin, consider switching to rosuvastatin * Assessment & Plan Note - PHILIP Alonso CNP - 07/16/2024 2:31 PM EDT Associated Problem(s): Chronic heart failure with preserved ejection fraction (HCC) Chronic HFpEF 65% -NYHA Class II-III -weight at discharge 231 lbs and today's weight 231 lbs. -some improvement in LE edema -continue current doses of lasix, Entresto * Addendum Note - PHILIP Alonso CNP - 07/16/2024 2:30 PM EDTAddended by: TRI NEWBERRY on: 07/16/2024 02:48 PM Modules accepted: Orders documented in this [facility]09-03-2024 Evaluation + Plan note* Assessment & Plan Note - PHILIP Alonso CNP - 07/16/2024 2:36 PM EDT Associated Problem(s): Longstanding persistent atrial fibrillation (HCC) EKG shows AFib with HR 66 -rate well controlled -currently on warfarin. Patient and son plan to discuss switching to Eliquis at next office visit in one month [id number] Evaluation + Plan note* Assessment & Plan Note - PHILIP Alonso CNP - 07/16/2024 2:33 PM EDTAssociated Problem(s): Coronary artery disease involving [place] coronary artery of [place] heart without angina pectoris Moderate LAD stenosis noted on cath -denies angina -continue simvastatin, consider switching to rosuvastatin [id number] Evaluation + Plan note* Assessment & Plan Note - PHILIP Alonso CNP - 07/16/2024 2:31 PM EDTAssociated Problem(s): Chronic heart failure with preserved ejection fraction (HCC) Chronic HFpEF 65% -NYHA Class II-III -weight at discharge 231 lbs and today's weight 231 lbs. -some improvement in LE edema -continue current doses of lasix, Entresto [id number] History of Present illness Narrative* PHILIP Alonso CNP - 07/16/2024 2:30 PM EDT Images from the original note were not included. [facility] [address] [facility] [id number] Dept: [phone] Dept Loc: [phone] Reason for Visit: Follow-up (One week s/p TAVR) Assessment and Plan 1. Severe aortic stenosis Assessment & Plan: S/p femoral TAVR with 29 mm Ileana S3 on 07/08/24 -stable -continue warfarin, INR due this week by [facility] nurse -repeat echo in one month -reviewed SBE prophylaxis-patient is edentulous -discussed Cardiac Rehab-patient declines at this time but will consider in future. Advised CardiacRehab can be done in [place]. 2. Chronic heart failure with preserved ejection fraction (HCC) Assessment & Plan: Chronic HFpEF 65% -NYHA Class II-III -weight at discharge 231 lbs and today's weight 231 lbs. -some improvement in LE edema -continue current doses of lasix, Entresto 3. Longstanding persistent atrial fibrillation (HCC) Assessment & Plan: EKG shows AFib with HR 66 -rate well controlled -currently on warfarin. Patient and son plan to discuss switching to Eliquis at next office visit in one month 4. Coronary artery disease involving [place] coronary artery of [place] heart without angina pectoris Assessment & Plan: Moderate LAD stenosis noted on cath -denies angina -continue simvastatin, consider switching to rosuvastatin Orders: - ECG 12 lead - CLINIC PERFORMED Follow up for [facility] [employer] follow up, with echo-to be done at [facility]. Subjective HPI Ander Monteiro is a 73 yo with known to Dr Obrien with chronic HFpEF, Afib, iron deficiency anemia, COPD, HTN, HLD, pressure wound followed by podiatry and chronic pain followed by Pain Management. He has had progressive DUNLAP, fatigue and a hospital admission in 02/2024 for acute heart failure. Echo showed EF 50% with mean Ao gradient 45 mmHg. Heart cath showed moderate LAD stenosis with continued medical management. He is followed by podiatry for lower leg wounds which and was cleared to proceed with TAVR. He recently had all his remaining teeth extracted and was cleared by his dentist to proceed with TAVR. He underwent femoral TAVR on 07/08/24 with a 29 mm Ileana S3 valve. He did well post procedure and was discharged home the following day. He presents today for a one week follow up accompanied by his son. He denies angina, orthopnea, abdominal bloating or bleeding. He reports SOB with exertion has not changed. Reports intermittent dizziness that is chronic. Not requiring use of his inhaler. He reports more energy and is going out to work in his garage more. Activity is limited by chronic back and left shoulder pain. Review of Systems Constitutional: Positive for fatigue (improving). Negative for chills and fever. Respiratory: Positive for shortness of breath. Negative for cough. Cardiovascular: Positive for leg swelling (slightly improved). Negative for chest pain and palpitations. Gastrointestinal: Negative for abdominal pain, blood in stool and vomiting. Genitourinary: Negative for hematuria. Musculoskeletal: Positive for arthralgias (left shoulder, chronic), back pain (chronic) and gait problem (uses cane at home, in W/C today). Neurological: Positive for dizziness (intermittent, chronic). Negative for syncope. Psychiatric/Behavioral: Negative for confusion. Allergies Allergen Reactions Pramoxine Rash Other Reaction(s): Burning sensation, Erythema, Burning sensation, Erythema Outpatient Medications Prior to Visit Medication Sig Dispense Refill acetaminophen (Tylenol) 500 MG tablet Take 500 mg by mouth every 8 hours as needed for mild pain (1-3). albuterol 108 (90 Base) MCG/ACT inhaler Inhale 2 puffs every 6 hours as needed for wheezing. Diclofenac Sodium (Arthritis Pain Reliever) 1 % gel Apply 2 g topically 2 times daily. ferrous sulfate (FeroSul) 325 (65 Fe) MG tablet Take 325 mg by mouth daily (with breakfast). furosemide (Lasix) 80 MG tablet Take 40 mg by mouth daily. oxyCODONE (Roxicodone) 10 MG immediate release tablet Take 10 mg by mouth every 8 hours as needed for severe pain (7-10). potassium chloride CR (Klor-Con M20) 20 MEQ ER tablet Take 20 mEq by mouth 2 times daily. Do not crush or chew. sacubitril-valsartan (Entresto) 49-51 MG tablet Take 1 tablet by mouth 2 times daily. senna-docusate (Lyndsey-Colace) 8.6-50 MG tablet Take 2 tablets by mouth in the morning and 2 tablets in the evening. simvastatin (Zocor) 10 MG tablet Take 10 mg by mouth Nightly. terazosin (Hytrin) 2 MG capsule Take 2 mg by mouth daily. tiotropium-olodaterol (Stiolto Respimat) 2.5-2.5 MCG/ACT aerosol solution inhaler Inhale 2 Inhalations in the morning and 2 Inhalations in the evening. warfarin (Coumadin) 1 MG tablet Take 1 tablet (1 mg) by mouth every evening. Patient to take 5 mg total dose daily and then as directed by PCP warfarin (Coumadin) 4 MG tablet Take 1 tablet (4 mg) by mouth every evening. Patient to take total daily dose of 5 mg daily and then as directed by PCP No facility-administered medications prior to visit. Past Medical History: Diagnosis Date (HFpEF) heart failure with preserved ejection fraction (HCC) 04/16/2024 A-fib (CMS/HCC) (HCC) 04/16/2024 Aortic valve stenosis 04/16/2024 BPH (benign prostatic hyperplasia) 04/16/2024 COPD (chronic obstructive pulmonary disease) (HCC) 04/16/2024 Essential hypertension 04/16/2024 Former smoker 04/16/2024 HLD (hyperlipidemia) 04/16/2024 Iron deficiency anemia 04/16/2024 Venous insufficiency of leg 04/16/2024 Social History Tobacco Use Smoking status: Former Types: Cigarettes Smokeless tobacco: Never Substance Use Topics Alcohol use: Not on file Past Surgical History: Procedure Laterality Date CARDIAC CATHETERIZATION N/A 07/08/2024 Performed by Jero Reyes MD at [facility] OR No family history on file. Objective Vitals: 07/16/24 1346 BP: 114/58 BP Location: Left arm Patient Position: Sitting BP Cuff Size: Adult Pulse: 60 SpO2: 97% Weight: 231 lb (105 kg) Height: 6' (1.829 m) Body mass index is 31.33 kg/m . Physical Exam Constitutional: Appearance: Normal appearance. HENT: Head: Normocephalic. Eyes: General: No scleral icterus. Right eye: No discharge. Left eye: No discharge. Cardiovascular: Rate and Rhythm: Normal rate and regular rhythm. Pulses: Radial pulses are 2+ on the right side. Heart sounds: Murmur heard. Comments: R radial cath site without hematoma, ecchymosis or oozing. R hand with brisk capillary refill. R femoral cath site without hematoma, ecchymosis, oozing or bruit Unable to assess pedal pulses due to lower extremity dressings Pulmonary: Effort: Pulmonary effort is normal. Breath sounds: Normal breath sounds. Abdominal: General: Abdomen is flat. Palpations: Abdomen is soft. Musculoskeletal: General: Normal range of motion. Cervical back: Normal range of motion. Right lower le+ Edema present. Left lower le+ Edema present. Skin: General: Skin is warm and dry. Capillary Refill: Capillary refill takes less than 2 seconds. Neurological: Mental Status: He is alert and oriented to person, place, and time. Psychiatric: Mood and Affect: Mood normal. Data Reviewed and Summarized Lab Results Component Value Date WBC 5.5 07/09/2024 HGB 10.8 (L) 07/09/2024 HCT 33.5 (L) 07/09/2024 MCV 91.0 07/09/2024 PLT 121 (L) 07/09/2024 Lab Results Component Value Date GLUCOSE 98 07/09/2024 CALCIUM 9.1 07/09/2024 NA 136 07/09/2024 K 3.7 07/09/2024 CO2 21 (L) 07/09/2024 CL 110 (H) 07/09/2024 BUN 15 07/09/2024 CREATININE 0.55 (L) 07/09/2024 EF BP Date Value Ref Range Status 07/08/2024 65 55 - 100 % Final Echocardiogram 07/08/24: Left Ventricle: Left ventricle is dilated. Mildly increased wall thickness. Normal left ventricularsystolic function. EF by 2D Simpsons Biplane is 65%. Normal wall motion. Right Ventricle: Right ventricle is mildly dilated. Normal systolic function. Aortic Valve: Bioprosthetic aortic valve. AV mean gradient is 12 mmHg. No regurgitation. No paravalvular regurgitation. Mild stenosis of the aortic valve. AV mean gradient is 12 mmHg. AV peak gradient is 25 mmHg. AV peak velocity is 2.5 m/s. LVOT:AV VTI Index is 0.47. AV area by continuity VTI is 1.8 cm2. Tricuspid Valve: Mild (1+) regurgitation. Mildly elevated RVSP. RVSP is 46 mmHg. Aorta: Normal sized sinuses of Valsalva. Mildly dilated ascending aorta. Ao ascending diameter is 4.0 cm. PHILIP Curry CNP documented in this [facility]09-03-2024 Note* Addendum Note - PHILIP Alonso CNP - 07/16/2024 2:30 PM EDTAddended by: TRI NEWBERRY on: 07/16/2024 02:48 PM Modules accepted: Orders [id number] Note* Addendum Note - PHILIP Alonso CNP - 07/16/2024 2:30 PM EDTAddended by: TRI NEWBERRY on: 07/16/2024 02:48 PM Modules accepted: Orders [facility] [id number] NoteAddended by: TRI NEWBERRY on: 07/16/2024 02:48 PM Modules accepted: [facility]08-27-2024 Nurse Note* Sarahy Varela RN - 07/09/2024 3:29 PM EDT Discharge instuctions given to patient. All questions answered at this time. Patient dressed. IV removed. [id number] Nurse Note* Sarahy Varela RN - 07/09/2024 3:29 PM EDT Discharge instuctions given to patient. All questions answered at this time. Patient dressed. IV removed. documented in this [facility]08-27-2024 Note Attestation signed by Jero Reyes MD at 07/09/2024 8:47 PM I, Dr. Reyes, saw and evaluated the patient. I personally obtained the caal and critical portions of the history and physical exam. I reviewed the chart and discussed the patient with the Nurse Practitioner. I agree with the Nurse Practitioner's medical decision making. Hospital Summary: Patient was admitted for elective transcatheter aortic valve replacement. he did well with this procedure. he is now POD1 s/p TF TAVR. he is back to his baseline activity with no symptoms. he will be discharged today on his current medication list. he will follow up in valve clinic in 1-2 weeks. Name: Ander Monteiro Date of : 1950 Date of Admission: 07/08/2024 Date of Discharge: 07/09/2024 Admitting physician: Jero Reyes MD Discharge Attending: Oscar Bower APRN - [place] Primary Care Physician: MORIAH SUTTON MD Reason for Admission: Severe Symptomatic Aortic Stenosis Consultants: cardiac rehab HOSPITAL ADMISSION PROBLEM LIST: Patient Active Problem List Diagnosis Aortic valve stenosis Iron deficiency anemia COPD (chronic obstructive pulmonary disease) (HCC) BPH (benign prostatic hyperplasia) Longstanding persistent atrial fibrillation (HCC) Chronic heart failure with preserved ejection fraction (HCC) Venous insufficiency of leg HLD (hyperlipidemia) Former smoker Essential hypertension Severe aortic stenosis Patient notes improved breathing with short walks around the room. He has poor mobility at baseline and does not want PT. He denies chest or groin discomfort. He has a visiting nurse for home care- wounds bilat legs (followed by outpatient podiatry and wound clinic). He is anxious to go home. Review of Systems Review of Systems Constitutional: Negative for activity change, chills, diaphoresis, fatigue and fever. HENT: Negative for nosebleeds and trouble swallowing. Eyes: Negative for discharge and visual disturbance. Respiratory: Negative for apnea, cough, chest tightness, shortness of breath (improved) and wheezing. Cardiovascular: Positive for leg swelling. Negative for chest pain and palpitations. Gastrointestinal: Negative for abdominal distention, abdominal pain, blood in stool, diarrhea, nausea and vomiting. Endocrine: Negative for cold intolerance and heat intolerance. Genitourinary: Negative for hematuria. Musculoskeletal: Negative for gait problem and myalgias. Skin: Negative for color change and rash. Neurological: Negative for dizziness, seizures, syncope, facial asymmetry, speech difficulty, weakness, light-headedness, numbness and headaches. Hematological: Does not bruise/bleed easily. Psychiatric/Behavioral: Negative for dysphoric mood. Physical Exam Physical Exam Constitutional: Appearance: Normal appearance. HENT: Head: Normocephalic and atraumatic. Nose: Nose normal. Eyes: Conjunctiva/sclera: Conjunctivae normal. Pupils: Pupils are equal, round, and reactive to light. Cardiovascular: Rate and Rhythm: Normal rate. Rhythm irregular. Pulmonary: Effort: Pulmonary effort is normal. Breath sounds: Normal breath sounds. Abdominal: General: Bowel sounds are normal. Palpations: Abdomen is soft. Musculoskeletal: General: Normal range of motion. Cervical back: Normal range of motion and neck supple. Skin: General: Skin is warm and dry. Neurological: General: No focal deficit present. Mental Status: He is alert and oriented to person, place, and time. Psychiatric: Mood and Affect: Mood normal. Thought Content: Thought content normal. Procedures: Transfemoral transcatheter AVR with 29 mm Ileana S3 valve under moderate sedation Transthoracic echocardiogram HOSPITAL COURSE : The patient was admitted to the hospital for elective TAVR on 07/08/2024 . A 29 mm Ileana S3 valve was implanted. The patient returned to [facility] for recovery. Vital signs and labs were stable. There were no groin complications. The patient was ambulatory the evening of the procedure. Post procedure echocardiogram demonstrated : Left Ventricle: Left ventricle size is normal. Normal wall thickness. Normal left ventricular systolic function. EF by 2D Simpsons Biplane is 63%. Normal wall motion. Right Ventricle: Right ventricle size is normal. Normal systolic function. Aortic Valve: Yepez Ileana 3 Ultra bioprosthetic aortic valve with a size of 29 mm. AV mean gradient is 5 mmHg. Patient education including SBE prophylaxis, activity, access site care, follow up appointments, and medications was provided. The patient verbalized understanding, questions were answered. The patient was discharged home in good condition. Referral to cardiac rehabilitation has been (more content not included)...[facility]08-27-2024 Hospital course Narrative* PHILIP Reilly CNP - 07/09/2024 10:20 AM EDT Images from the original note were not included. Name: Ander Monteiro Date of : 1950 Date of Admission: 07/08/2024 Date of Discharge: 07/09/2024 Admitting physician: Jero Reyes MD Discharge Attending: PHILIP Reilly CNP, MD Primary Care Physician: MORIAH SUTTON MD Reason for Admission: Severe Symptomatic Aortic Stenosis Consultants: cardiac rehab HOSPITAL ADMISSION PROBLEM LIST: Patient Active Problem List Diagnosis Aortic valve stenosis Iron deficiency anemia COPD (chronic obstructive pulmonary disease) (HCC) BPH (benign prostatic hyperplasia) Longstanding persistent atrial fibrillation (HCC) Chronic heart failure with preserved ejection fraction (HCC) Venous insufficiency of leg HLD (hyperlipidemia) Former smoker Essential hypertension Severe aortic stenosis Patient notes improved breathing with short walks around the room. He has poor mobility at baselineand does not want PT. He denies chest or groin discomfort. He has a visiting nurse for home care- wounds bilat legs (followed by outpatient podiatry and wound clinic). He is anxious to go home. Review of Systems Review of Systems Constitutional: Negative for activity change, chills, diaphoresis, fatigue and fever. HENT: Negative for nosebleeds and trouble swallowing. Eyes: Negative for discharge and visual disturbance. Respiratory: Negative for apnea, cough, chest tightness, shortness of breath (improved) and wheezing. Cardiovascular: Positive for leg swelling. Negative for chest pain and palpitations. Gastrointestinal: Negative for abdominal distention, abdominal pain, blood in stool, diarrhea, nausea and vomiting. Endocrine: Negative for cold intolerance and heat intolerance. Genitourinary: Negative for hematuria. Musculoskeletal: Negative for gait problem and myalgias. Skin: Negative for color change and rash. Neurological: Negative for dizziness, seizures, syncope, facial asymmetry, speech difficulty, weakness, light-headedness, numbness and headaches. Hematological: Does not bruise/bleed easily. Psychiatric/Behavioral: Negative for dysphoric mood. Physical Exam Physical Exam Constitutional: Appearance: Normal appearance. HENT: Head: Normocephalic and atraumatic. Nose: Nose normal. Eyes: Conjunctiva/sclera: Conjunctivae normal. Pupils: Pupils are equal, round, and reactive to light. Cardiovascular: Rate and Rhythm: Normal rate. Rhythm irregular. Pulmonary: Effort: Pulmonary effort is normal. Breath sounds: Normal breath sounds. Abdominal: General: Bowel sounds are normal. Palpations: Abdomen is soft. Musculoskeletal: General: Normal range of motion. Cervical back: Normal range of motion and neck supple. Skin: General: Skin is warm and dry. Neurological: General: No focal deficit present. Mental Status: He is alert and oriented to person, place, and time. Psychiatric: Mood and Affect: Mood normal. Thought Content: Thought content normal. Procedures: Transfemoral transcatheter AVR with 29 mm Ileana S3 valve under moderate sedation Transthoracic echocardiogram HOSPITAL COURSE : The patient was admitted to the hospital for elective TAVR on 07/08/2024 . A 29 mm Ileana S3 valve was implanted. The patient returned to [facility] for recovery. Vital signs and labs were stable. There wereno groin complications. The patient was ambulatory the evening of the procedure. Post procedure echocardiogram demonstrated : Left Ventricle: Left ventricle size is normal. Normal wall thickness. Normal left ventricular systolic function. EF by 2D Simpsons Biplane is 63%. Normal wall motion. Right Ventricle: Right ventricle size is normal. Normal systolic function. Aortic Valve: Yepez Ileana 3 Ultra bioprosthetic aortic valve with a size of 29 mm. AV mean gradient is 5 mmHg. Patient education including SBE prophylaxis, activity, access site care, follow up appointments, and medications was provided. The patient verbalized understanding, questions were answered. The patient was discharged home in good condition. Referral to cardiac rehabilitation has been recommended and discussed with the patient prior to discharge. Patient declines cardiac rehab referral, he has chronic pain and exercise makes it worse. INR to be checked by Dr. Sutton on Monday of this week. Last Labs: Lab Results Component Value Date WBC 5.5 07/09/2024 HGB 10.8 (L) 07/09/2024 HCT 33.5 (L) 07/09/2024 MCV 91.0 07/09/2024 PLT 121 (L) 07/09/2024 Lab Results Component Value Date NA 136 07/09/2024 K 3.7 07/09/2024 CL 110 (H) 07/09/2024 CO2 21 (L) 07/09/2024 BUN 15 07/09/2024 CREATININE 0.55 (L) 07/09/2024 GLUCOSE 98 07/09/2024 CALCIUM 9.1 07/09/2024 No results found for: CHLPL, CHOL No results found for: TRIG No results found for: HDL No results found for: LDLCALC Discharge Medications: Medication List CHANGE how you take these medications * warfarin 1 MG tablet Commonly known as: Coumadin Take 1 tablet (1 mg) by mouth every evening. Patient to take 5 mg total dose daily and then as directed by PCP What changed: how much to take when to take this additional instructions * warfarin 4 MG tablet Commonly known as: Coumadin Take 1 tablet (4 mg) by mouth every evening. Patient to take total daily dose of 5 mg daily and then as directed by PCP What changed: how much to take when to take this additional instructions * This list has 2 medication(s) that are the same as other medications prescribed for you. Read thedirections carefully, and ask your doctor or other care provider to review them with you. CONTINUE taking these medications acetaminophen 500 MG tablet Commonly known as: Tylenol albuterol 108 (90 Base) MCG/ACT inhaler Arthritis Pain Reliever 1 % gel Generic drug: Diclofenac Sodium FeroSul 325 (65 Fe) MG tablet Generic drug: ferrous sulfate furosemide 80 MG tablet Commonly known as: Lasix oxyCODONE 10 MG immediate release tablet Commonly known as: Roxicodone potassium chloride CR 20 MEQ ER tablet Commonly known as: Klor-Con M20 sacubitril-valsartan 49-51 MG tablet Commonly known as: Entresto senna-docusate 8.6-50 MG tablet Commonly known as: Lyndsey-Colace simvastatin 10 MG tablet Commonly known as: Zocor Stiolto Respimat 2.5-2.5 MCG/ACT aerosol solution inhaler Generic drug: tiotropium-olodaterol terazosin 2 MG capsule Commonly known as: Hytrin Where to Get Your Medications Information about where to get these medications is not yet available Ask your nurse or doctor about these medications warfarin 1 MG tablet warfarin 4 MG tablet DIET: A low fat, low cholesterol, 2 gramsodium diet was discussed with the patient. Discharge to home Condition at Discharge: Stable, improved Final Primary Dx: Severe Symptomatic Aortic Stenosis Transfemoral TAVR Secondary Dx: BMI Classification: Obese (BMI 30.0-39.9) Chronic HF with preserved EF Hypertension Persistent Atrial Fibrillation- on warfarin Chronic Pain Poor mobility Chronic Lower extremity wounds Iron Deficiency Anemia COPD Coronary Artery Disease- med management, statin, coumadin [facility] one [facility], appt arranged If any questionscall [facility] [phone] Greater than 35 minutes spent on patient discharge including assessment/plan, education, and coordination of care Electronically signed by Oscar Bower APRN - [place] Date: 07/09/2024 Associated attestation - Jero Reyes MD - 07/09/2024 8:47 PM EDT I, Dr. Reyes, saw and evaluated the patient. I personally obtained the caal and critical portions of the history and physical exam. I reviewed the chart and discussed the patient with the NursePractitioner. I agree with the Nurse Practitioner's medical decision making. Hospital Summary: Patient was admitted for elective transcatheter aortic valve replacement. he did well with this procedure. he is now POD1 s/p TF TAVR. he is back to his baseline activity with no symptoms. he will bedischarged today on his current medication list. he will follow up in valve clinic in 1-2 weeks. documented in this [facility]08-27-2024 Consult note* Ayana Mattson - 07/09/2024 9:57 AM EDTAssociated Order(s): IP CONSULT TO CARDIAC REHAB Received referral and reviewed chart. Phase II Cardiopulmonary Rehab Referral discussed with Ander Monteiro. [facility] Given information on programat preferred location[id number] NoteReceived referral and reviewed chart. Phase II Cardiopulmonary Rehab Referral discussed with Ander Monteiro. [facility] Given information on program at preferred location. [facility]08-27-2024 Consult note* Ayana Mattson - 07/09/2024 9:57 AM EDTAssociated Order(s): IP CONSULT TO CARDIAC REHAB Received referral and reviewed chart. Phase II Cardiopulmonary Rehab Referral discussed with Ander Monteiro. [facility] Given information on programat preferred location. documented in this [facility]08-27-2024 NoteAtrial fibrillation PVC Poor R wave progression, consider anterior infarct Nonspecific ST-T wave changes Electronically Signed On 07-09-2024 07:28:33 EDT by [place] [email or web address] NoteAtrial fibrillation PVC Poor R wave progression, consider anterior infarct Nonspecific ST-T wave changes Electronically Signed On 07-09-2024 07:28:33 EDT by [place] [email or web address]-2024 NoteIMPRESSION: Atrial fibrillation PVC Poor R wave progression, consider anterior infarct Nonspecific ST-T wave changes Electronically Signed On 07-09-2024 07:28:33 EDT by [facility]08-26-2024 Hospital Discharge instructions* Discharge Instructions* PHILIP Reilly CNP - 07/08/2024 3:32 PM EDT - Please call the [facility] with any questions: [phone] -You will have have the following follow up appointments in the Heart Valve Clinic: one week post procedure, one month post procedure with echocardiogram, one year post procedure with echocardiogram. -Wash groin/wrist incision with soap and water, pat dry. Apply bandage for 5 days. If you have a chest incision, you will receive specific instructions from your surgeon regarding care of the incision. -Check incision every day. If you see any changes in the way it looks, call the [facility] at . Look for any of these problems: redness and warmth that does not go away, yellow or green drainage from the wound, fever and chills, numbness in your legs, pain that is getting worse. -It is normal to have a bruise or soft lump in the groin. This will get smaller and go away with time -Do not drive until after your first Heart Valve Clinic Appointment. -Do not lift, push, or pull anything weighing more than 5 lbs or more for one week if you had the procedure through your groin and 4 weeks if you had the procedure through the chest -We strongly encourage a regular exercise program such as cardiac rehabilitation once you have beencleared to resume normal activity. -Eating well is important for your recovery. Eat nutritious foods every day. Please follow a cardiac, 2 gram sodium diet. Please continue to follow any other dietary recommendations provided by your health care provider prior to your valve surgery. -From now on, tell your doctors and health care providers about your heart valve implantation (prosthetic heart valve ). -If you go to the emergency room or are admitted to the hospital during the first year after your procedure, please call the Heart Valve Clinic at -If you have major dental work or other invasive medical procedures (like surgery) you may need to take antibiotics before the dental work or the procedure. Please discuss with your health care provider. - You will need to take blood thinning medications (antiplatelet) after your valve procedure. Generally, this includes aspirin alone, unless you take blood thinning medications for another indication(warfarin, apixaban, rivaroxaban). If you take blood thinning medications, these are generally sufficient and aspirin will not be required unless otherwise specified. documented in this [facility]08-26-2024 NotePatient: Ander Monteiro Procedure Summary Date: 07/08/24 Room / Location: [facility] Operating Room Anesthesia Start: 4 Anesthesia Stop: 1456 Procedures: TRANSCATHETER AORTIC VALVE REPLACEMENT, TRANSTHORACIC ECHOCARDIOGRAM TRANSCATHETER AORTIC VALVE REPLACEMENT, TRANSTHORACIC ECHOCARDIOGRAM (Chest) Diagnosis: Severe aortic stenosis Surgeons: Jero Reyes MD; Aj Luong MD Responsible Provider: Alfonso Kingsley CRNA Anesthesia Type: TIVA ASA Status: 4 Anesthesia Type: TIVA Vitals Value Taken Time BP 100/60 07/08/24 1455 Temp 36.1 ?C (97 ?F) 07/08/24 1455 Pulse 55 07/08/24 1455 Resp 15 07/08/24 1455 SpO2 96 % 07/08/24 1455 Anesthesia Post Evaluation Patient location during evaluation: PACU Patient participation: complete - patient participated Level of consciousness: awake and alert Pain management: satisfactory to patient Airway patency: patent Dental Injury: no Cardiovascular status: acceptable, blood pressure returned to baseline and hemodynamically stable Respiratory status: acceptable and spontaneous ventilation Hydration status: euvolemic Nausea/Vomiting: controlled No notable events documented. Patient can be discharged once all PACU criteria has been met.[facility] [id number] NotePatient: Ander Monteiro Procedure Summary Date: 07/08/24 [place] [facility] [place] Room Anesthesia Start: 1314 Anesthesia Stop: 1457 Procedures: TRANSCATHETER AORTIC VALVE REPLACEMENT, TRANSTHORACIC ECHOCARDIOGRAM TRANSCATHETER AORTIC VALVE REPLACEMENT, TRANSTHORACIC ECHOCARDIOGRAM (Chest) Diagnosis: Severe aortic stenosis Surgeons: Jero Reyes MD; Aj Luong MD Responsible Provider: Alfonso Kingsley CRNA Anesthesia Type: TIVA ASA Status: 4 Anesthesia Type: TIVA Vitals Value Taken Time BP 100/60 07/08/24 1455 Temp 36.1 ?C (97 ?F) 07/08/24 1455 Pulse 55 07/08/24 1455 Resp 15 07/08/24 1455 SpO2 96 % 07/08/24 1455 Anesthesia Post Evaluation Patient location during evaluation: ICU Patient participation: complete - patient participated Level of consciousness: awake and alert Pain management: satisfactory to patient Multimodal analgesia pain management approach Airway patency: patent Two or more strategies used to mitigate risk of obstructive sleep apnea Cardiovascular status: acceptable and hemodynamically stable Respiratory status: acceptable Hydration status: acceptable No notable events documented. MIPS #430 PONV Patient did not receive an inhalational anesthetic (XX430) MIPS # 424 Perioperative Temperature Management Anesthesia time was 60 minutes or longer (4255F) Anesthesai administered was not General (inhalational or TIVA) or Neuraxial block Patient received MAC (G9654) At least one body temperature greater than 95.8F/35.5C achieved within the 30 mins immediately prior to or the 15 minutes immediately following anesthesia end time (G9771) MIPS #477 Multimodal Pain Management Not emergent case Patient was not administered multimodal pain management (G2149) No Reason (G2150) MIPS #404 Anesthesiology Smoking Abstinence The patient is not a current smoker (e.g. cigarette, cigar, pipe, e-cigarette/vaping/marijuana) If no stop here (XX404) I completed my handoff to the receiving clinician during which we: 1. Identified the patient 2. Identified the responsible provider 3. Reviewed the pertinent medical history 4. Discussed the surgical course 5. Reviewed intra-op anesthesia management and issues during anesthesia 6. Set expectations for post-procedure period 7. Allowed opportunity for questions and acknowledgement of understanding.[facility]08-26-2024 NoteArterial Line: Date/Time: 07/08/2024 2:01 PM An arterial line was placed Procedure performed using ultrasound guidance - Image permanently retained with wire or catheter in vein.in the Procedural for the following indication(s): continuous blood pressure monitoring and blood sampling needed. A 20 gauge (size), 1 and 3/4 inch (length), Arrow (type) catheter was placed, into the Right radial artery, secured by Tegaderm and tape. Events: patient tolerated procedure well with no complications. Staffing Performed: Other Other staff: Jero Reyes, [facility]08-26-2024 NoteH&P reviewed. The patient was examined and there are no changes to the H&P.[facility]08-23-2024 Note Attestation signed by Jero Reyes MD at 07/08/2024 9:03 PM I, Dr. Reyes, saw and evaluated the patient. I personally obtained the caal and critical portions of the history and physical exam. I reviewed the chart and discussed the patient with the Nurse Practitioner. I agree with the Nurse Practitioner's medical decision making. I spoke with Ander Monteiro this morning. he tells me that nothing has changed clinically since our last office visit. We will proceed with the planned procedure. H+ P copied to chart from (office provider's name Tri Newberry APRN) progress note dated 8/20/24 on behalf of (procedural physician's name Dr. Reyes). Expand All Collapse All [facility] [address] [facility] [id number] Dept: [phone] Dept Loc: [phone] Reason for Visit: Pre-op Exam (Updated H&P) Assessment and Plan 1. Severe aortic stenosis Assessment & Plan: Pre procedure CXR, CTA and labs to be done today. Pre procedure teaching completed in the office with written instructions provided to patient. All questions answered. Ander Monteiro participated in a shared decision making process regarding treatment of aortic stenosis. Ander Monteiro was made aware of the techniques for aortic valve implantation, the risks and benefits for both forms of AVR therapy, medical management or a palliative care strategy, and the multidisciplinary team's recommendations to facilitate achieving the best outcome given specific risk, characteristics, and goals of care. Ander Monteiro was engaged in the decision and expressed understanding and acceptance of the plan. Orders: - ECG 12 lead - CLINIC PERFORMED 2. Chronic heart failure with preserved ejection fraction (HCC) Assessment & Plan: Progressive worsening symptoms with recent HF admission. Weight stable -continue current doses of Entresto 3. Essential hypertension Assessment & Plan: Well controlled on current medications 4. Longstanding persistent atrial fibrillation (HCC) Assessment & Plan: Hold coumadin 4 days prior to TAVR. Take ASA 81 mg daily while coumadin is on hold. Follow up for -to be arranged after TAVR. Subjective HPI Ander Monteiro is a 73 yo with known to Dr Obrien with chronic HFpEF, Afib, iron deficiency anemia, COPD, HTN, HLD, pressure wound followed by podiatry and chronic pain followed by Pain Management. He has had progressive DUNLAP, fatigue and a hospital admission in 02/2024 for acute heart failure. Echo showed EF 50% with mean Ao gradient 45 mmHg. Heart cath showed moderate LAD stenosis with continued medical management. He is followed by podiatry for lower leg wounds which and has been cleared to proceed with TAVR. He recently had all his remaining teeth extracted and has been cleared by his dentist to proceed with TAVR. He presents today for an updated H&P accompanied by his son. He reports SOB and fatigue that has not worsened. He has continued dizziness which he attributes to some of his medications. Denies angina, orthopnea, PND or bleeding. Weight has been stable at home. Review of Systems Constitutional: Positive for fatigue. Negative for chills and fever. Respiratory: Positive for shortness of breath. Negative for cough. Cardiovascular: Positive for leg swelling. Negative for chest pain and palpitations. Gastrointestinal: Negative for abdominal pain, blood in stool and vomiting. Genitourinary: Negative for hematuria. Neurological: Negative for dizziness and syncope. Psychiatric/Behavioral: Negative for confusion. Allergies Allergies Allergen Reactions Pramoxine Rash Other Reaction(s): Burning sensation, Erythema, Burning sensation, Erythema Medications Prior to Visit Outpatient Medications Prior to Visit Medication Sig Dispense Refill acetaminophen (Tylenol) 500 MG tablet Take 500 mg by mouth every 8 hours as needed for mild pain (1-3). albuterol 108 (90 Base) MCG/ACT inhaler Inhale 2 puffs every 6 hours as needed for wheezing. Diclofenac Sodium (Arthritis Pain Reliever) 1 % gel Apply 2 g topically 2 times daily. ferrous sulfate (FeroSul) 325 (65 Fe) MG tablet Take 325 mg by mouth daily (with breakfast). furosemide (Lasix) 80 MG tablet Take 40 mg by mouth daily. oxyCODONE-acetaminophen (Percocet) 10-325 MG tablet Take 2 tablets by mouth every 6 hours as needed for severe pain (7-10). potassium chloride CR (Klor-Con M20) 20 MEQ ER tablet Take 20 mEq by mouth 2 times daily. Do not crush or chew. sacubitril-valsartan (Entresto) 49-51 MG tablet Take 1 tablet by mouth 2 times daily. senna-docusate (Lyndsey-Colace) 8.6-50 MG tablet Take 2 tablets by mouth in the morning and 2 tablets in the evening. simvastatin (Zocor) 10 MG tablet Ta (more content not included)...[facility] [id number] Note Attestation signed by Jero Reyes MD at 07/08/2024 9:03 PM I, Dr. Reyes, saw and evaluated the patient. I personally obtained the caal and critical portions of the history and physical exam. I reviewed the chart and discussed the patient with the Nurse Practitioner. I agree with the Nurse Practitioner's medical decision making. I spoke with Ander Monteiro this morning. he tells me that nothing has changed clinically since our last office visit. We will proceed with the planned procedure. H+ P copied to chart from (office provider's name Tri PHILIP Newberry) progress note dated 07/02/24 on behalf of (procedural physician's name Dr. Reyes). Expand All Collapse All [facility] [address] [facility] [address] Dept: [phone] Dept Loc: [phone] Reason for Visit: Pre-op Exam (Updated H&P) Assessment and Plan 1. Severe aortic stenosis Assessment & Plan: Pre procedure CXR, CTA and labs to be done today. Pre procedure teaching completed in the office with written instructions provided to patient. All questions answered. Ander Monteiro participated in a shared decision making process regarding treatment of aortic stenosis. Ander Monteiro was made aware of the techniques for aortic valve implantation, the risks and benefits for both forms of AVR therapy, medical management or a palliative care strategy, and the multidisciplinary team's recommendations to facilitate achieving the best outcome given specific risk, characteristics, and goals of care. Ander Monteiro was engaged in the decision and expressed understanding and acceptance of the plan. Orders: - ECG 12 lead - CLINIC PERFORMED 2. Chronic heart failure with preserved ejection fraction (HCC) Assessment & Plan: Progressive worsening symptoms with recent HF admission. Weight stable -continue current doses of Entresto 3. Essential hypertension Assessment & Plan: Well controlled on current medications 4. Longstanding persistent atrial fibrillation (HCC) Assessment & Plan: Hold coumadin 4 days prior to TAVR. Take ASA 81 mg daily while coumadin is on hold. Follow up for -to be arranged after TAVR. Subjective HPI Ander Monteiro is a 73 yo with known to Dr Obrien with chronic HFpEF, Afib, iron deficiency anemia, COPD, HTN, HLD, pressure wound followed by podiatry and chronic pain followed by Pain Management. He has had progressive DUNLAP, fatigue and a hospital admission in 02/2024 for acute heart failure. Echo showed EF 50% with mean Ao gradient 45 mmHg. Heart cath showed moderate LAD stenosis with continued medical management. He is followed by podiatry for lower leg wounds which and has been cleared to proceed with TAVR. He recently had all his remaining teeth extracted and has been cleared by his dentist to proceed with TAVR. He presents today for an updated H&P accompanied by his son. He reports SOB and fatigue that has not worsened. He has continued dizziness which he attributes to some of his medications. Denies angina, orthopnea, PND or bleeding. Weight has been stable at home. Review of Systems Constitutional: Positive for fatigue. Negative for chills and fever. Respiratory: Positive for shortness of breath. Negative for cough. Cardiovascular: Positive for leg swelling. Negative for chest pain and palpitations. Gastrointestinal: Negative for abdominal pain, blood in stool and vomiting. Genitourinary: Negative for hematuria. Neurological: Negative for dizziness and syncope. Psychiatric/Behavioral: Negative for confusion. Allergies Allergies Allergen Reactions Pramoxine Rash Other Reaction(s): Burning sensation, Erythema, Burning sensation, Erythema Medications Prior to Visit Outpatient Medications Prior to Visit Medication Sig Dispense Refill acetaminophen (Tylenol) 500 MG tablet Take 500 mg by mouth every 8 hours as needed for mild pain (1-3). albuterol 108 (90 Base) MCG/ACT inhaler Inhale 2 puffs every 6 hours as needed for wheezing. Diclofenac Sodium (Arthritis Pain Reliever) 1 % gel Apply 2 g topically 2 times daily. ferrous sulfate (FeroSul) 325 (65 Fe) MG tablet Take 325 mg by mouth daily (with breakfast). furosemide (Lasix) 80 MG tablet Take 40 mg by mouth daily. oxyCODONE-acetaminophen (Percocet) 10-325 MG tablet Take 2 tablets by mouth every 6 hours as needed for severe pain (7-10). potassium chloride CR (Klor-Con M20) 20 MEQ ER tablet Take 20 mEq by mouth 2 times daily. Do not crush or chew. sacubitril-valsartan (Entresto) 49-51 MG tablet Take 1 tablet by mouth 2 times daily. senna-docusate (Lyndsey-Colace) 8.6-50 MG tablet Take 2 tablets by mouth in the morning and 2 tablets in the evening. simvastatin (Zocor) 10 MG tablet Ta (more content not included)...[facility]08-23-2024 NotePatient: Ander Monteiro Procedure Information Date/Time: 07/08/24 1245 Procedures: TRANSCATHETER AORTIC VALVE REPLACEMENT, TRANSTHORACIC ECHOCARDIOGRAM TRANSCATHETER AORTIC VALVE REPLACEMENT, TRANSTHORACIC ECHOCARDIOGRAM (Chest) Location: [facility] Operating Room Surgeons: Jero Reyes MD; Aj Luong MD Ander Monteiro is a 73 yo with known to Dr Obrien with chronic HFpEF, Afib, iron deficiency anemia, COPD, HTN, HLD, pressure wound followed by podiatry and chronic pain followed by Pain Management. Echo showed EF 50% with mean Ao gradient 45 mmHg. Heart cath showed moderate LAD stenosis with continued medical management. Relevant Problems No relevant active problems Past Medical History: Past Medical History: 04/16/2024: (HFpEF) heart failure with preserved ejection fraction (HCC) 04/16/2024: A-fib (CMS/HCC) (HCC) 04/16/2024: Aortic valve stenosis 04/16/2024: BPH (benign prostatic hyperplasia) 04/16/2024: COPD (chronic obstructive pulmonary disease) ([facility]) 04/16/2024: Essential hypertension 04/16/2024: Former smoker 04/16/2024: HLD (hyperlipidemia) 04/16/2024: Iron deficiency anemia 04/16/2024: Venous insufficiency of leg Past Surgical History: No past surgical history on file. Social History: TOBACCO: reports that he has quit smoking. His smoking use included cigarettes. He has never used smokeless tobacco. ETOH: has no history on file for alcohol use. Social History Substance and Sexual Activity Drug Use Not on file Family History: No family history on file. Screening: unknown Clinical information reviewed: Physical Exam Airway Mallampati: II Cardiovascular Dental (+) Missing, edentulous Pulmonary Abdominal Anesthesia Plan patient is NPO appropriate Any family history or previous problems with anesthesia no ASA 4 TIVA Any family history or previous problems with anesthesia no The patient is not a current smoker. ERAS Type 07/05/24 Chart reviewed. DOS orders for anesthesia placed according to ERAS protocol. Tavr, no eras Tavr checklist complete. Records available from [facility] under media. PHILIP Wilkinson CNP RAFAEL Screening Labs: Lab Results Component Value Date WBC 4.6 07/02/2024 HGB 11.4 (L) 07/02/2024 HCT 36.1 (L) 07/02/2024 MCV 90.9 07/02/2024 PLT 147 07/02/2024 Lab Results Component Value Date NA 137 07/02/2024 K 4.0 07/02/2024 CL 108 (H) 07/02/2024 CO2 25 07/02/2024 BUN 17 07/02/2024 CREATININE 0.64 (L) 07/02/2024 GLUCOSE 86 07/02/2024 CALCIUM 9.5 07/02/2024 PROT 7.1 07/02/2024 ALKPHOS 77 07/02/2024 AST 25 07/02/2024 ALT 13 07/02/2024 EGFR >90.0 07/02/2024 No echocardiogram results found for the past 14 days 07/02/24 ECG 12-LEAD (Preliminary) Equipment Requests: Additional Equipment [facility] Evaluation + Plan note* Assessment & Plan Note - PHILIP Alonso CNP - 07/02/2024 11:16 AM EDTAssociated Problem(s): Chronic heart failure with preserved ejection fraction (HCC) Progressive worsening symptoms with recent HF admission. Weight stable -continue current doses of Entresto [id number] NoteProgressive worsening symptoms with recent HF admission. Weight stable -[facility] Miscellaneous Notes* Assessment & Plan Note - PHILIP Alonso CNP - 07/02/2024 11:16 AM EDTAssociated Problem(s): Chronic heart failure with preserved ejection fraction (HCC) Progressive worsening symptoms with recent HF admission. Weight stable -continue current doses of Entresto * Assessment & Plan Note - PHILIP Alonso CNP - 07/02/2024 11:14 AM EDT Associated Problem(s): Essential hypertension Well controlled on current medications * Assessment & Plan Note - PHILIP Alonso CNP - 07/02/2024 11:14 AM EDT Associated Problem(s): Longstanding persistent atrial fibrillation (HCC) Hold coumadin 4 days prior to TAVR. Take ASA 81 mg daily while coumadin is on hold. * Assessment & Plan Note - PHILIP Alonso CNP - 07/02/2024 11:14 AM EDT Associated Problem(s): Severe aortic stenosis Pre procedure CXR, CTA and labs to be done today. Pre procedure teaching completed in the office with written instructions provided to patient. All questions answered. Ander Monteiro participated in a shared decision making process regarding treatment of aortic stenosis. Ander Monteiro was made aware of the techniques for aortic valve implantation, the risks and benefits for both forms of AVR therapy, medical management or a palliative care strategy, and the multidisciplinary team's recommendations to facilitate achieving the best outcome given specific risk, characteristics, and goals of care. Ander Monteiro was engaged in the decision and expressed understanding and acceptance of the plan. documented in this [facility]08-20-2024 Evaluation + Plan note* Assessment & Plan Note - PHILIP Alonso CNP - 07/02/2024 11:14 AM EDT Associated Problem(s): Essential hypertension Well controlled on current medications [id number] Evaluation + Plan note* Assessment & Plan Note - PHILIP Alonso CNP - 07/02/2024 11:14 AM EDTAssociated Problem(s): Longstanding persistent atrial fibrillation (HCC) Hold coumadin 4 days prior to TAVR. Take ASA 81 mg daily while coumadin is on hold. [id number] Evaluation + Plan note* Assessment & Plan Note - PHILIP Alonso CNP - 07/02/2024 11:14 AM EDTAssociated Problem(s): Severe aortic stenosis Pre procedure CXR, CTA and labs to be done today. Pre procedure teaching completed in the office with written instructions provided to patient. All questions answered. Ander Monteiro participated in a shared decision making process regarding treatment of aortic stenosis. Ander Monteiro was made aware of the techniques for aortic valve implantation, the risks and benefits for both forms of AVR therapy, medical management or a palliative care strategy, and the multidisciplinary team's recommendations to facilitate achieving the best outcome given specific risk, characteristics, and goals of care. Ander Monteiro was engaged in the decision and expressed understanding and acceptance of the plan. [facility] [id number] NotePre procedure CXR, CTA and labs to be done today. Pre procedure teaching completed in the office with written instructions provided to patient. All questions answered. Ander Monteiro participated in a shared decision making process regarding treatment of aortic stenosis. Ander Monteiro was made aware of the techniques for aortic valve implantation, the risks and benefits for both forms of AVR therapy, medical management or a palliative care strategy, and the multidisciplinary team's recommendations to facilitate achieving the best outcome given specific risk, characteristics, and goals of care. Ander Monteiro was engaged in the decision and expressed understanding and acceptance of the plan.[facility]08-20-2024 History of Present illness Narrative* PHILIP Alonso CNP - 07/02/2024 10:00 AM EDT Images from the original note were not included. [facility] [address] [facility] [address] Dept: [phone] Dept Loc: [phone] Reason for Visit: Pre-op Exam (Updated H&P) Assessment and Plan 1. Severe aortic stenosis Assessment & Plan: Pre procedure CXR, CTA and labs to be done today. Pre procedure teaching completed in the office with written instructions provided to patient. All questions answered. Ander Monteiro participated in a shared decision making process regarding treatment of aortic stenosis. Ander Monteiro was made aware of the techniques for aortic valve implantation, the risks and benefits for both forms of AVR therapy, medical management or a palliative care strategy, and the multidisciplinary team's recommendations to facilitate achieving the best outcome given specific risk, characteristics, and goals of care. Ander Monteiro was engaged in the decision and expressed understanding and acceptance of the plan. Orders: - ECG 12 lead - CLINIC PERFORMED 2. Chronic heart failure with preserved ejection fraction (HCC) Assessment & Plan: Progressive worsening symptoms with recent HF admission. Weight stable -continue current doses of Entresto 3. Essential hypertension Assessment & Plan: Well controlled on current medications 4. Longstanding persistent atrial fibrillation (HCC) Assessment & Plan: Hold coumadin 4 days prior to TAVR. Take ASA 81 mg daily while coumadin is on hold. Follow up for -to be arranged after TAVR. Subjective HPI Ander Motneiro is a 73 yo with known to Dr Obrien with chronic HFpEF, Afib, iron deficiency anemia, COPD, HTN, HLD, pressure wound followed by podiatry and chronic pain followed by Pain Management. He has had progressive DUNLAP, fatigue and a hospital admission in 02/2024 for acute heart failure. Echo showed EF 50% with mean Ao gradient 45 mmHg. Heart cath showed moderate LAD stenosis with continued medical management. He is followed by podiatry for lower leg wounds which and has been cleared to proceed with TAVR. He recently had all his remaining teeth extracted and has been cleared by his dentistto proceed with TAVR. He presents today for an updated H&P accompanied by his son. He reports SOB and fatigue that has not worsened. He has continued dizziness which he attributes to some of his medications. Denies angina, orthopnea, PND or bleeding. Weight has been stable at home. Review of Systems Constitutional: Positive for fatigue. Negative for chills and fever. Respiratory: Positive for shortness of breath. Negative for cough. Cardiovascular: Positive for leg swelling. Negative for chest pain and palpitations. Gastrointestinal: Negative for abdominal pain, blood in stool and vomiting. Genitourinary: Negative for hematuria. Neurological: Negative for dizziness and syncope. Psychiatric/Behavioral: Negative for confusion. Allergies Allergen Reactions Pramoxine Rash Other Reaction(s): Burning sensation, Erythema, Burning sensation, Erythema Outpatient Medications Prior to Visit Medication Sig Dispense Refill acetaminophen (Tylenol) 500 MG tablet Take 500 mg by mouth every 8 hours as needed for mild pain (1-3). albuterol 108 (90 Base) MCG/ACT inhaler Inhale 2 puffs every 6 hours as needed for wheezing. Diclofenac Sodium (Arthritis Pain Reliever) 1 % gel Apply 2 g topically 2 times daily. ferrous sulfate (FeroSul) 325 (65 Fe) MG tablet Take 325 mg by mouth daily (with breakfast). furosemide (Lasix) 80 MG tablet Take 40 mg by mouth daily. oxyCODONE-acetaminophen (Percocet) 10-325 MG tablet Take 2 tablets by mouth every 6 hours as neededfor severe pain (7-10). potassium chloride CR (Klor-Con M20) 20 MEQ ER tablet Take 20 mEq by mouth 2 times daily. Do not crush or chew. sacubitril-valsartan (Entresto) 49-51 MG tablet Take 1 tablet by mouth 2 times daily. senna-docusate (Lyndsey-Colace) 8.6-50 MG tablet Take 2 tablets by mouth in the morning and 2 tablets in the evening. simvastatin (Zocor) 10 MG tablet Take 10 mg by mouth Nightly. terazosin (Hytrin) 2 MG capsule Take 2 mg by mouth daily. tiotropium-olodaterol (Stiolto Respimat) 2.5-2.5 MCG/ACT aerosol solution inhaler Inhale 2 Inhalations in the morning and 2 Inhalations in the evening. warfarin (Coumadin) 1 MG tablet Take by mouth. Take as directed per After Visit Summary. warfarin (Coumadin) 4 MG tablet Take by mouth. Take as directed per After Visit Summary. No facility-administered medications prior to visit. Past Medical History: Diagnosis Date (HFpEF) heart failure with preserved ejection fraction (HCC) 04/16/2024 A-fib (CMS/HCC) ([facility]) 04/16/2024 Aortic valve stenosis 04/16/2024 BPH (benign prostatic hyperplasia) 04/16/2024 COPD (chronic obstructive pulmonary disease) ([facility]) 04/16/2024 Essential hypertension 04/16/2024 Former smoker 04/16/2024 HLD (hyperlipidemia) 04/16/2024 Iron deficiency anemia 04/16/2024 Venous insufficiency of leg 04/16/2024 Social History Tobacco Use Smoking status: Former Types: Cigarettes Smokeless tobacco: Never Substance Use Topics Alcohol use: Not on file History reviewed. No pertinent surgical history. No family history on file. Objective Vitals: 07/02/24 1007 BP: 110/62 BP Location: Left arm Patient Position: Sitting BP Cuff Size: Adult Pulse: 66 SpO2: 98% Weight: 232 lb (105 kg) Height: 5' 11 (1.803 m) Body mass index is 32.36 kg/m . Physical Exam Constitutional: Appearance: Normal appearance. HENT: Head: Normocephalic. Eyes: General: No scleral icterus. Right eye: No discharge. Left eye: No discharge. Cardiovascular: Rate and Rhythm: Normal rate and regular rhythm. Pulses: Normal pulses. Heart sounds: Murmur heard. Systolic murmur is present with a grade of 3/6. Pulmonary: Effort: Pulmonary effort is normal. Breath sounds: Normal breath sounds. Abdominal: General: Abdomen is flat. Palpations: Abdomen is soft. Musculoskeletal: General: Normal range of motion. Cervical back: Normal range of motion. Right lower le+ Edema present. Left lower le+ Edema present. Skin: General: Skin is warm and dry. Capillary Refill: Capillary refill takes less than 2 seconds. Neurological: Mental Status: He is alert and oriented to person, place, and time. Psychiatric: Mood and Affect: Mood normal. Data Reviewed and Summarized EKG 07/02/24 reviewed in the office today PHILIP Curry CNP documented in this [facility]08-05-2024 NoteLeft message for patient to schedule CTA/ H&P update and TAVR procedure.[facility]07-10-2024 NoteProgress notes received from [facility] for DOS 05/20/24. Patient has infected toe on RLE, treated w/antibiotics. Will need clearance from surveillance investigator. Needs 14 teeth extracted the week of 06/03/24. [facility] cleared him for dental procedures. Scheduled for [facility] on 06/03/24. Scanned into media. Hard copy to Callie.[facility]07-03-2024 NotePatient seen in Heart Valve Clinic yesterday with Dr. Reyes, plan to proceed with L/RHC procedure. Patient would like this done at [place], Dr. Reyes spoke with Dr. Obrien to okay. Plan: patient to call our office once heart cath is scheduled. Patient will also need to have dental clearance. He will call his dental office and give our office a call back once appt scheduled. Will need to fax our dental clearance form once dental office known.[facility]07-02-2024 History of Present illness Narrative* Rebeca Grossman, - 05/14/2024 3:30 PM EDT Images from the original note were not included. [facility]: Cardiothoracic Surgery Multidisciplinary Heart Valve Clinic Date: 05/14/24 Patient:Ander Monteiro 1950 73 y.o. male [id number] Subjective: HPI: Ander Monteiro [address] Sutton is being evaluated for aortic valve stenosis. Echocardiogram completed on 02/19/2024 showed critical aortic valve stenosis with peak/mean gradients 86/45 mm Hg. Medical History Past Medical History: Diagnosis Date (HFpEF) heart failure with preserved ejection fraction (HCC) 04/16/2024 A-fib (CMS/HCC) (HCC) 04/16/2024 Aortic valve stenosis 04/16/2024 BPH (benign prostatic hyperplasia) 04/16/2024 COPD (chronic obstructive pulmonary disease) ([facility]) 04/16/2024 Essential hypertension 04/16/2024 Former smoker 04/16/2024 HLD (hyperlipidemia) 04/16/2024 Iron deficiency anemia 04/16/2024 Venous insufficiency of leg 04/16/2024 Blood thinner - Warfarin Transthoracic Echocardiogram 02/19/2024 Review of Systems Constitutional: Negative for activity change, chills, diaphoresis, fatigue and fever. HENT: Negative for nosebleeds and trouble swallowing. Eyes: Negative for discharge and visual disturbance. Respiratory: Positive for shortness of breath (on exertion; worsening). Negative for apnea, cough, chest tightness and wheezing. Cardiovascular: Positive for leg swelling. Negative for chest pain and palpitations. Gastrointestinal: Negative for abdominal distention, abdominal pain, blood in stool, diarrhea, nausea and vomiting. Endocrine: Negative for cold intolerance and heat intolerance. Genitourinary: Negative for hematuria. Musculoskeletal: Positive for gait problem (uses walker at home; in wheelchair at visit). Negative for myalgias. Skin: Negative for color change and rash. Neurological: Negative for dizziness, seizures, syncope, facial asymmetry, speech difficulty, weakness, light-headedness, numbness and headaches. Hematological: Does not bruise/bleed easily. Psychiatric/Behavioral: Negative for dysphoric mood. Allergies: Pramoxine Past Medical History: has a past medical history of (HFpEF) heart failure with preserved ejection fraction (HCC) (04/16/2024), A-fib (CMS/HCC) ([facility]) (04/16/2024), Aortic valve stenosis (04/16/2024), BPH (benign prostatic hyperplasia) (04/16/2024), COPD (chronic obstructive pulmonary disease) ([facility]) (04/16/2024), Essential hypertension (04/16/2024), Former smoker (04/16/2024), HLD (hyperlipidemia) (04/16/2024), Iron deficiency anemia (04/16/2024), and Venous insufficiency of leg (04/16/2024). Past Surgical History: has no past surgical history on file. Social History: reports that he has quit smoking. His smoking use included cigarettes. He does not have any smokeless tobacco history on file. Family History: family history is not on file. Medications: Prior to Admission medications Medication Sig Start Date End Date Taking? Authorizing Provider acetaminophen (Tylenol) 500 MG tablet Take 500 mg by mouth every 8 hours as needed for mild pain (1-3). Historical Provider, albuterol 108 (90 Base) MCG/ACT inhaler Inhale 2 puffs every 6 hours as needed for wheezing. Historical Provider, Diclofenac Sodium (Arthritis Pain Reliever) 1 % gel Apply 2 g topically 2 times daily. Historical Provider, ferrous sulfate (FeroSul) 325 (65 Fe) MG tablet Take 325 mg by mouth daily (with breakfast). Historical ProviderMD furosemide (Lasix) 40 MG tablet Take 40 mg by mouth daily. Historical ProviderMD furosemide (Lasix) 80 MG tablet Take 80 mg by mouth in the morning and 80 mg in the evening. Historical ProviderMD oxyCODONE (Roxicodone) 5 MG immediate release tablet Take 5 mg by mouth every 8 hours as needed forsevere pain (7-10). Historical ProviderMD potassium chloride CR (Klor-Con M20) 20 MEQ ER tablet Take 20 mEq by mouth 2 times daily. Do not crush or chew. Historical Provider, sacubitril-valsartan (Entresto) 24-26 MG tablet Take 1 tablet by mouth 2 times daily. Historical ProviderMD senna-docusate (Lyndsey-Colace) 8.6-50 MG tablet Take 2 tablets by mouth in the morning and 2 tablets in the evening. Historical Provider, simvastatin (Zocor) 10 MG tablet Take 10 mg by mouth Nightly. Historical ProviderMD tiotropium-olodaterol (Stiolto Respimat) 2.5-2.5 MCG/ACT aerosol solution inhaler Inhale 2 Inhalations in the morning and 2 Inhalations in the evening. Historical Provider, warfarin (Coumadin) 1 MG tablet Take by mouth. Take as directed per After Visit Summary. MD King warfarin (Coumadin) 4 MG tablet Take by mouth. Take as directed per After Visit Summary. MD King Objective: BP 124/80 (BP Location: Left arm, Patient Position: Sitting, BP Cuff Size: Adult) Pulse 57 Ht 6' (1.829 m) Wt 264 lb 8.8 oz (120 kg) BMI 35.88 kg/m Physical Exam Vitals: BP 124/80 (BP Location: Left arm, Patient Position: Sitting, BP Cuff Size: Adult) Pulse 57 Ht 6' (1.829 m) Wt 264 lb 8.8 oz (120 kg) BMI 35.88 kg/m Constitutional: General: Not in acute distress. Appearance: Normal appearance. Not toxic-appearing. Ear, nose, mouth: Bilateral external ear and nose normal. Nose: Nose normal. Mouth: Appearance normal, no bleeding, moist mucus membranes Eyes: General: No scleral icterus. No discharge from bilateral eyes Extraocular Movements: Extraocular movements intact. Pupils equal and reactive bilaterally Cardiovascular: Heart: Regular rhythm. +murmur. Vascular: No carotid bruit. + radiation to bilateral carotids Edema: + edema in bilateral lower extremities Pulmonary: Effort: Pulmonary effort is normal. No respiratory distress. Breath sounds: Normal breath sounds. No wheezing. Chest wall: No tenderness. Abdominal: Appearance: Not distended Palpations: There is no abdominal tenderness, no guarding. Musculoskeletal: Bilateral upper and lower extremities: Normal range of motion, no deformity Head: Normocephalic and atraumatic. Neck: Normal range of motion and neck supple. No muscular tenderness. Lymphadenopathy: Cervical: No cervical adenopathy. Skin: General: Skin is warm and dry. Coloration: Skin is not jaundiced. Neurological: General: No focal deficit present. Cranial Nerves: No obvious cranial nerve deficit. Psychiatric: Mood and Affect: Mood normal. Thought Content: Thought content normal. Patient has good judgement and insight Mental Status: Alert and oriented to place, person, and time. Labs: Reviewed in EMR No results found for: WBC, HGB, HCT, MCV, PLT No results found for: NA, K, CL, CO2, BUN, CREATININE, GLUCOSE, CALCIUM Diagnostics: Reviewed in EMR Assessment/Plan: Mr. Monteiro is a pleasant 73 year old male who is seen with family today in valve clinic. They have aortic stenosis which has progressed to severe and are now having increased symptoms. They would benefit both in quantity and quality of life with a valve replacement. The procedural details as well as risks, benefits and alteratives were discussed with them. They would not pursue if this required open heart surgery primarily but are interested in percutaneous options. This is very reasonable given their age, functional status and comorbidities. They are open to surgical salvage if the unlikely need arose. Notable, they also have mitral regurgitation. We would plan to evaluate this after TAVR along with symptoms to determine if this requires future intervention. The patient and his families questions were answered to their satisfaction and they would like to proceed toward TAVR. Plan for C and CTA TAVR in near future with subsequent discussion at multidisciplinary conference and TAVR in the near future. Patient consents to surgical bailout: [x] Yes [] No If No why: ATTESTATION I personally performed the evaluation and management of Ander Monteiro in the development of a treatment plan for this patient. I personally interviewed the patient and performed an individual physicalexamination. In addition, I discussed the patient's condition and treatment options with them. I have also reviewed and agree with the past medical, family and social history unless otherwise noted. All of the patient's questions were answered. I personally spent 60 minutes of time between the faceto face encounter, physical exam, reviewing the medical history, coordinating the patient's care, co unseling/educating the patient, ordering prescriptions/medications/tests/procedures, interpreting results and documenting clinical information in the patient's electronic health record on the day of t he encounter. Electronically signed by Rebeca Grossman DO, MS, [facility] Patient Care Team: Moriah Sutton MD as PCP - General (Geriatric Medicine) Disclaimers: INFORMED CONSENT: The nature and purpose of the proposed treatment and/or procedure have been discussed. The risks and benefits of the proposed treatment or procedures have been reviewed. Alternatives have been reviewed in addition to the risks and benefits of not receiving treatments or undergoingprocedures. Pursuant to this discussion, the patient agrees to undergo the proposed treatment or procedure. Captured images seen in this note are not a substitute for a comprehensive interpretation of the entire data set as reflected by the interpreting physician with regard to radiology, echocardiography,and other diagnostic images. documented in this [facility]07-02-2024 History of Present illness Narrative* Jero Reyes MD - 05/14/2024 3:00 PM EDT Images from the original note were not included. [facility] [address] [facility] [id number] Dept: [phone] Dept Visit type: New : 1950 Reason for Visit: Cardiac Valve Problem; New patient (Heart Valve Clinic) Assessment and Plan 1. Nonrheumatic aortic valve stenosis 2. Essential hypertension - ECG 12 lead - CLINIC PERFORMED This is a very pleasant 73 y.o. male with severe and symptomatic aortic stenosis. he is in need of aortic valve replacement. Will have heart cath performed, pt prefers in [place], I have spoken with Bart Obrien, will arrange. Will get a CTA for anatomic planning. If favorable anatomy for transfemoral TAVR, will likely proceed with TAVR. This decision was made after multidisciplinary discussion, using a shared decision making strategy. CT surgery also saw patient to aide in discussion. It was a pleasure seeing your patient in the office today. Please do not hesitate to call me with any questions. Follow up for Recheck after cath and CTA. Subjective HPI Ander Monteiro is a very pleasant 73 y.o. male who is here for evaluation of his aortic valve disease. his symptoms include progressive dyspnea on exertion and fatigue. his most recent echo shows severe aortic stenosis with normal EF, mean aortic valve gradient 45mmHg. Review of Systems Constitutional: Negative for activity change, chills, diaphoresis, fatigue and fever. HENT: Negative for nosebleeds and trouble swallowing. Eyes: Negative for discharge and visual disturbance. Respiratory: Positive for shortness of breath (on exertion; worsening). Negative for apnea, cough, chest tightness and wheezing. Cardiovascular: Positive for leg swelling. Negative for chest pain and palpitations. Gastrointestinal: Negative for abdominal distention, abdominal pain, blood in stool, diarrhea, nausea and vomiting. Endocrine: Negative for cold intolerance and heat intolerance. Genitourinary: Negative for hematuria. Musculoskeletal: Positive for gait problem (uses walker at home; in wheelchair at visit). Negative for myalgias. Skin: Negative for color change and rash. Neurological: Negative for dizziness, seizures, syncope, facial asymmetry, speech difficulty, weakness, light-headedness, numbness and headaches. Hematological: Does not bruise/bleed easily. Psychiatric/Behavioral: Negative for dysphoric mood. Allergies Allergen Reactions Pramoxine Rash Other Reaction(s): Burning sensation, Erythema, Burning sensation, Erythema Outpatient Medications Prior to Visit Medication Sig Dispense Refill albuterol 108 (90 Base) MCG/ACT inhaler Inhale 2 puffs every 6 hours as needed for wheezing. ferrous sulfate (FeroSul) 325 (65 Fe) MG tablet Take 325 mg by mouth daily (with breakfast). furosemide (Lasix) 80 MG tablet Take 80 mg by mouth in the morning and 80 mg in the evening. oxyCODONE-acetaminophen (Percocet) 10-325 MG tablet Take 2 tablets by mouth every 6 hours as neededfor severe pain (7-10). potassium chloride CR (Klor-Con M20) 20 MEQ ER tablet Take 20 mEq by mouth 2 times daily. Do not crush or chew. sacubitril-valsartan (Entresto) 24-26 MG tablet Take 1 tablet by mouth 2 times daily. senna-docusate (Lyndsey-Colace) 8.6-50 MG tablet Take 2 tablets by mouth in the morning and 2 tablets in the evening. simvastatin (Zocor) 10 MG tablet Take 10 mg by mouth Nightly. terazosin (Hytrin) 2 MG capsule Take 2 mg by mouth daily. tiotropium-olodaterol (Stiolto Respimat) 2.5-2.5 MCG/ACT aerosol solution inhaler Inhale 2 Inhalations in the morning and 2 Inhalations in the evening. warfarin (Coumadin) 1 MG tablet Take by mouth. Take as directed per After Visit Summary. warfarin (Coumadin) 4 MG tablet Take by mouth. Take as directed per After Visit Summary. acetaminophen (Tylenol) 500 MG tablet Take 500 mg by mouth every 8 hours as needed for mild pain (1-3). Diclofenac Sodium (Arthritis Pain Reliever) 1 % gel Apply 2 g topically 2 times daily. furosemide (Lasix) 40 MG tablet Take 40 mg by mouth daily. oxyCODONE (Roxicodone) 5 MG immediate release tablet Take 5 mg by mouth every 8 hours as needed forsevere pain (7-10). No facility-administered medications prior to visit. Past Medical History: Diagnosis Date (HFpEF) heart failure with preserved ejection fraction (HCC) 04/16/2024 A-fib (CMS/HCC) (HCC) 04/16/2024 Aortic valve stenosis 04/16/2024 BPH (benign prostatic hyperplasia) 04/16/2024 COPD (chronic obstructive pulmonary disease) ([facility]) 04/16/2024 Essential hypertension 04/16/2024 Former smoker 04/16/2024 HLD (hyperlipidemia) 04/16/2024 Iron deficiency anemia 04/16/2024 Venous insufficiency of leg 04/16/2024 Social History Tobacco Use Smoking status: Former Types: Cigarettes Smokeless tobacco: Not on file Substance Use Topics Alcohol use: Not on file History reviewed. No pertinent surgical history. No family history on file. Objective Vitals: 05/14/24 1505 BP: 124/80 BP Location: Left arm Patient Position: Sitting BP Cuff Size: Adult Pulse: 57 SpO2: 97% Weight: 264 lb (120 kg) Height: 6' (1.829 m) Physical Exam Constitutional: General: He is not in acute distress. Appearance: He is not diaphoretic. HENT: Head: Normocephalic. Nose: Nose normal. Mouth/Throat: Mouth: Mucous membranes are moist. Pharynx: No oropharyngeal exudate. Eyes: General: No scleral icterus. Right eye: No discharge. Left eye: No discharge. Neck: Thyroid: No thyromegaly. Vascular: No carotid bruit or JVD. Cardiovascular: Rate and Rhythm: Normal rate and regular rhythm. Pulses: Normal pulses. Heart sounds: Murmur heard. Systolic murmur is present with a grade of 3/6. Pulmonary: Effort: Pulmonary effort is normal. Breath sounds: Normal breath sounds. Abdominal: General: Bowel sounds are normal. There is no distension. Palpations: There is no hepatomegaly. Tenderness: There is no abdominal tenderness. Musculoskeletal: General: Normal range of motion. Cervical back: Normal range of motion. Right lower leg: No edema. Left lower leg: No edema. Skin: General: Skin is warm and dry. Neurological: Mental Status: He is oriented to person, place, and time. Psychiatric: Mood and Affect: Mood normal. Behavior: Behavior normal. Data Reviewed and Summarized No results found for: EFBP, PLVEF, LVEFPHYS, LVEF2D, EF Review of tests/labs done/ordered within my specialty: EKG in office: Review of tests/labs done/ordered outside my specialty: Independent interpretation of tests: I personally reviewed the images from Ander Cayetano's most recent TTE in the office today, to help with medical decision making. Jero Reyes MD documented in this [facility]06-14-2024 Telephone encounter Note* Telephone Encounter - Che Cobb - 04/26/2024 9:16 AM EDT Patient sched for 05/14/24. [facility] appt cancelled, chart made and PATIENT TRANSITION SPECIALIST packet mailed. [id number] Miscellaneous Notes* Telephone Encounter - Che Cobb - 04/26/2024 9:16 AM EDT Patient sched for 05/14/24. [facility] appt cancelled, chart made and PATIENT TRANSITION SPECIALIST packet mailed. * Telephone Encounter - Che Cobb - 04/24/2024 4:19 PM EDT Patient sched in on 05/14/24. Sending message to myself to make chart and mail PATIENT TRANSITION SPECIALIST packet. * Telephone Encounter - Sharmaine Cloud RN - 04/23/2024 1:18 PM EDT Diagnosis I50.30 (ICD-10-CM) - Unspecified diastolic (congestive) heart failure (HCC) I35.0 (ICD-10-CM) - Nonrheumatic aortic (valve) stenosis Echo report received showing severe Aortic Stenosis, reviewed with Tri Newberry APN in TAVR- per Tri pt should be rescheduled with TAVR team and canceled from Dr Ross's schedule Records given to Tri Newberry APN * Telephone Encounter - Sharmaine Cloud RN - 04/23/2024 1:18 PM EDT ----- Message from Macy Kothari sent at 04/23/2024 9:04 AM EDT ----- Echo being pushed to PACS & report faxed over ----- Message ----- From: Sharmaine Cloud RN Sent: 04/16/2024 8:11 AM EDT To: Viviane Obrien; Macy Kothari This pt was referred to [facility] for TAVR consideration (per records received) but no echo sent. Need to obtain from referring doctor as well as echo images. Pt scheduled with EMILIE- will review with TAVR team. documented in this encounterSZanesville City [id number] Telephone encounter Note* Telephone Encounter - Che Cobb - 04/24/2024 4:19 PM EDT Patient sched in on 05/14/24. Sending message to myself to make chart and mail PATIENT TRANSITION SPECIALIST packet. [facility] [id number] Telephone encounter Note* Telephone Encounter - Sharmaine Cloud RN - 04/23/2024 1:18 PM EDT Diagnosis I50.30 (ICD-10-CM) - Unspecified diastolic (congestive) heart failure (HCC) I35.0 (ICD-10-CM) - Nonrheumatic aortic (valve) stenosis Echo report received showing severe Aortic Stenosis, reviewed with Tri Newberry APN in TAVR- per Tri pt should be rescheduled with TAVR team and canceled from Dr Ross's schedule Records given to Tri Newberry APN [facility] [id number] Telephone encounter Note* Telephone Encounter - Sharmaine Cloud RN - 04/23/2024 1:18 PM EDT ----- Message from Macy Kothari sent at 04/23/2024 9:04 AM EDT ----- Echo being pushed to PACS & report faxed over ----- Message ----- From: Sharmaine Cloud RN Sent: 04/16/2024 8:11 AM EDT To: Viviane Obrien; Macy Kothari This pt was referred to [facility] for TAVR consideration (per records received) but no echo sent. Need to obtain from referring doctor as well as echo images. Pt scheduled with EMILIE- will review with TAVR team. [facility] [id number] Discharge summary Author Freedom Sutton [facility] March 06, 2024 6:58pm Note Date/Time March 06, 2024 6:5 2pm [facility] Medical Records Department [address] [place] [address] Discharge Summary 03/06/24 1849 MR#: [id number] Acct: [id number] Name: ANDER MONTEIRO Rep #:[id number] : 1950 73 From: Freedom Sutton MD PCP: [facility] Status:ADM IN Location: [id number] Providers Date of Admission: 02/23/24 Primary Care Physician: [facility] Consultations 02/27/24 07:59 Consult: Onc/Wound/electromechanical inspector Routine Comment: Reason for Consult:: Stasis ulcer- LLE; skin tear to LUE Reason For Visit: SYNCOPE,ADULT FFT Diagnosis Discharge Diagnosis (1) Debility: Status: Acute Code(s): R53.81 - Other malaise (2) Syncope: Status: Resolved Code(s): R55 - Syncope and collapse Qualifiers: Syncope type: unspecified Qualified Code(s): R55 - Syncope and collapse (3) Sepsis: Status: Ruled-out Code(s): A41.9 - Sepsis, unspecified organism (4) Staphylococcus aureus bacteremia: Status: Acute Code(s): R78.81 - Bacteremia; B95.61 - Methicillin susceptible Staphylococcus aureus infection as the cause of diseases classified elsewhere (5) Orthostatic hypotension: Status: Acute Code(s): I95.1 - Orthostatic hypotension (6) Urinary retention: Status: Acute Code(s): R33.9 - Retention of urine, unspecified (7) Atrial fibrillation: Status: Acute Code(s): I48.91 - Unspecified atrial fibrillation (8) Critical aortic valve stenosis: Status: Acute Code(s): I35.0 - Nonrheumatic aortic (valve) stenosis (9) COPD (chronic obstructive pulmonary disease): Status: Chronic Code(s): J44.9 - Chronic obstructive pulmonary disease, unspecified (10) Hypertension: Status: Chronic Code(s): I10 - Essential (primary) hypertension (11) HLD (hyperlipidemia): Status: Acute Code(s): E78.5 - Hyperlipidemia, unspecified (12) BPH (benign prostatic hyperplasia): Status: Acute Code(s): N40.0 - Benign prostatic hyperplasia without lower urinary tract symptoms (13) Hypokalemia: Status: Acute Code(s): E87.6 - Hypokalemia (14) Chronic heart failure with preserved ejection fraction (HFpEF): Status: Acute Code(s): I50.32 - Chronic diastolic (congestive) heart failure Plan 73 year old male with below past medical history hospitalized for syncope 2/2 orthostasis, critical aortic stenosis, complicated by sepsis, s. aureus bacteremia, endocarditis ruled out, admitted to TCU with debility, here for rehabilitation, strengthening, prior to discharge home with family. * Debility - PT/OT. * Pain - Tylenol 1000mg q8, Oxycodone 5mg q6 prn pain (4-10), Lidoderm 1 patch td daily. * Bowel - senna/colace 2 tablets bid, Magnesium citrate 300ml daily prn. * Adult immunization - Administer pneumonia vaccine, covid vaccine, flu vaccine as appropriate. * DVT prophylaxis - on warfarin. * COPD - Anoro 1 puff daily, Albuterol 1 puff q4h prn. * Hyperlipidemia - Atorvastatin 5mg qhs. * BPH - Doxazosin 2mg qhs. * S. Aureus bacteremia - Linezolid 600mg q12 thru 03/06/2024. * Atrial fibrillation - Warfarin 5mg daily, monitor inr. * Critical aortic stenosis - Follow up with Dr. Obrien at discharge to consider TAVR versus open AVR. Medications at Discharge Home Medications simvastatin 10 mg tablet 10 mg PO QHS cholesterol 09/06/22 terazosin 2 mg capsule 2 mg PO QHS prostate 09/06/22 lidocaine 5 % topical patch 1 patch topical DAILY pain #15 ea 09/08/22 albuterol sulfate 90 mcg/actuation aerosol inhaler 1 puff inhalation Q4H PRN SOB02/08/24 tiotropium 2.5 mcg-olodaterol 2.5 mcg/actuation mist for inhalation (Stiolto Respimat) 1 puff inhalation BID breathing 02/08/24 oxycodone 5 mg tablet 5 mg PO Q6H PRN PRN Pain Score 4-10 7 days #28 tabs 02/16/24 Arthritis Pain Compound 0 click topical BID 30 days #120 CLICKS 03/06/24 acetaminophen 500 mg tablet 1,000 mg (2 x 500 mg) PO Q8 #0 tabs 03/06/24 arginine 7 gram-glutam 7 gram-CaHMB 1.5 [id number] oral pwd pkt (Cristhian (with collagen)) 1 packet PO BIDCM 30 days #60 ea 03/06/24 potassium chloride 20 mEq tablet,extended release(part/cryst) 20 meq PO DAILYCM 30 days #30 tabs 03/06/24 sennosides 8.6 mg-docusate sodium 50 mg tablet (Stool Softener-Stimulant Laxative) 2 tab PO BID 30 days #120 tabs 03/06/24 warfarin 1 mg tablet (Jantoven) 0.5 mg (1/2 x 1 mg) PO DINNER 30 days #15 tabs 03/06/24 warfarin 4 mg tablet (Jantoven) 4 mg PO DINNER 30 days #30 tabs 03/06/24 Hospital Course Operations None Procedures None and - (Transesophageal echo.) Summary of Care Provided Minutes Spent on Discharge: 35 Hospital Course: 73 year old male with below past medical history hospitalized for syncope 2/2 orthostasis, critical aortic stenosis, complicated by sepsis, s. aureus bacteremia, endocarditis ruled out, admitted to TCU with debility, here for rehabilitation, strengthening, prior to discharge home with family. Discharge home with 03/10/2024, [facility] PT/OT/SN. Physical Exam Const alert General Appearance: cooperative HEENT normocephalic Eyes PERRL and EOMs intact bilaterally Neck supple, no JVD and no carotid bruits Resp normal respiratory effort, normal air movement and clear to auscultation bilaterally Cardio regular rate and regular rhythm Heart Sounds: murmur systolic III/ blowing left sternal border to carotid arteries GI normal to inspection, nondistended, normoactive bowel sounds, non-tender and non-distended Extremity normal capillary refill General Extremity: Negative for edema Skin no rashes or lesions noted General Skin Exam: no breakdown Psych affect normal Appearance: appropriate Weight / BMI Weight Weight: 119.93 kg Body Mass Index (BMI) 37.0 ABG / Lab / Microbiology Data 03/01/24 05:29 03/01/24 05:29 D/C Instructions Discharge Diet: No restrictions Discharge Activity: Return to Normal Activity, May Shower and Use Walker Weight Bearing Status: Weight bearing as tolerated Call your doctor if you observe: Fever of 101 or Higher, Inability to urinate, Inability to have a bowel movement, Shortness of breath, Dizziness, Fainting spells, Swelling in the ankles, Chest pain and Uncontrolled pain Additional Instructions: Discharge home with 03/10/2024, [facility] PT/OT/SN. Please Follow Up With: Rinku Ricci NP, PATIENT TRANSITION SPECIALIST-C When: 2 weeks. Meaningful Use Info Meaningful Use Meaningful Use Diagnoses (Choose all that apply): None applicable Ischemic Stroke Statin Dosing Therapy Reference: STATIN DOSE THERAPY REFERENCE: * Patients > 75 years receive moderate or high dose statin therapy. * Patients 75 years or YOUNGER should receive HIGH intensity statin dose unless contraindicated. You will be required to document reason for non-treatment if statin daily dose does not meet guidelines. HIGH DOSE STATIN THERAPY DAILY Atorvastatin > than or = to 40 mg Rosuvastatin > than or = to 20 mg Amlodipine + Atorvastatin > than or = to 2.5/40 mg Ezetimibe + Simvastatin 10/80 mg Simvastatin 80mg Discharge Plan Admission Admit Date/Time: 02/23/24 15:45 Primary Reason for Your Visit: Debility. Attending Provider: Freedom Sutton Chi Primary Care Provider: [facility],[place] Instructions Additional Instructions / Restrictions: Blood cultures to be drawn on 03/20/24, 2 weeks after antibiotics completed. Discharge home with 03/10/2024, [facility] PT/OT/SN. Discharge Orders/Prescriptions Prescriptions: New acetaminophen 500 mg Tablet 1,000 mg PO Q8 Qty: 0 0RF Arthritis Pain Compound 0 click topical BID 30 Days Qty: 120 0RF sennosides-docusate sodium [Stool Softener-Stimulant Laxat] 8.6-50 mg Tablet 2 tab PO BID 30 Days Qty: 120 0RF potassium chloride 20 mEq Tablet,Er Particles/Crystals 20 meq PO DAILYCM 30 Days Qty: 30 0RF Cristhian (with collagen) 7-7-1.5 gram Powder In Packet 1 packet PO BIDCM 30 Days Qty: 60 0RF warfarin [Jantoven] 4 mg Tablet 4 mg PO DINNER 30 Days Qty: 30 0RF warfarin [Jantoven] 1 mg Tablet 0.5 mg PO DINNER 30 Days Qty: 15 0RF Continued simvastatin 10 mg Tablet 10 mg PO QHS terazosin 2 mg Capsule 2 mg PO QHS lidocaine 5 % Adhesive Patch,Medicated 1 patch topical DAILY Qty: 15 0RF Protocol: *Topical Application Instructions APPLICATION INSTRUCTIONS: To the painful area and back Stiolto Respimat 2.5-2.5 mcg/actuation mist 1 puff inhalation BID albuterol sulfate 90 mcg/actuation HFA aerosol inhaler 1 puff inhalation Q4H PRN (Reason: SOB) oxycodone 5 mg Tablet 5 mg PO Q6H PRN PRN (Reason: Pain Score 4-10) 7 Days Qty: 28 0RF Discontinued warfarin 5 mg Tablet 5 mg PO DAILY Hold Instructions: Until instructed to reinitiate after follow-up INR acetaminophen 500 mg Tablet 1,000 mg PO Q8 30 Days Qty: 180 0RF Rx Instructions: Do not exceed 1000 mg 3 times a day oxycodone 10 mg tablet 10 mg PO TID Hold Instructions: Unless needed linezolid 600 mg tablet 600 mg PO Q12H 12 Days Qty: 24 0RF Referrals / Follow Up: Angel Musa MD [Med Staff - Active Staff] - (follow up 1 month from 03/06/24) Freedom Sutton Chi, MD [Med Staff - Active Staff] - Within 1 Week (New Patient Appointment/TCM appointment.) Disposition Disposition (needs filled in before D/C Order can be placed): Home Health Service 03/06/248 <Electronically signed by Freedom Sutton MD> Cosigner Signature (if applicable): CC: Dr. Freedom Sutton MD; [facility]~ Signed [facility] Work Phone: [phone]) 522-345304-15-2024 Progress note Author Freedom [facility] February 26, 2024 1:09pm Note Date/Time February 26, 2024 10: 17am [facility] Medical Records Department [address] [place] [id number] Progress Note - Pharmacy 02/26/24 1014 MR#: [id number] Acct: [id number] Name: ANDER MONTEIRO Rep #:[id number] : 1950 73 From: Bhavani Rosario PCP: [facility] Status:ADM IN Location: TCU U16- Documented by User: Bhavani Rosario 02/26/24 10:28 TCU RX Drug Regimen Review Subjective/Objective Subjective/Objective: Subjective: TCU Admission. 73 YOM presented to the ER with syncope. Hospitalizedfor syncope 2/2 orthostasis, critical aortic stenosis, complicated by sepsis, s.aureus bacteremia, endocarditis ruled out. Admitted to TCU with debility for strengthening and rehabilitation. Objective: Allergies pramoxine Allergy (Verified 02/07/24 17:06) Rash Current Medications Generic Name Dose Route Start Last Admin Trade Name Freq PRN Reason Stop Dose Admin Acetaminophen 1,000 mg 02/23/24 22:00 02/26/24 05:16 Acetaminophen 500 Mg Tablet PO 1,000 mg Q8 BERRY Administration Albuterol Sulfate 1 puff 02/23/24 16:41 Albuterol Ih (6.7 Gm) 1 Puff Inhaler INHALATION Q4H PRN SHORTNESS OF BREATH Atorvastatin Calcium 5 mg 02/23/24 22:00 02/25/24 19:52 Atorvastatin Calcium 10 Mg Tablet PO 5 mg QHS BERRY Administration Calamine/Phenol 1 applic 02/23/24 22:00 02/26/24 09:00 Menthol/Lanolin/Calamine/Znox 113 Gm Tube TOPICAL 1 applic BID BERRY Administration Protocol Doxazosin Mesylate 2 mg 02/23/24 22:00 02/25/24 19:51 Doxazosin 1 Mg Tablet PO 2 mg QHS BERRY Administration L-Arginine/L-Glutamine/Calcium HMB 1 packet 02/24/24 17:00 02/26/24 08:58 Cristhian (Unflavored) Packet PO 1 packet BIDCM BERRY Administration Lidocaine 1 patch 02/24/24 10:00 02/26/24 08:58 Lidocaine 5% Patch TOPICAL 1 patch DAILY BERRY Administration Protocol Linezolid 600 mg 02/23/24 22:00 02/26/24 08:59 Linezolid 600 Mg Tablet PO 03/06/24 10:01 600 mg Q12 BERRY Administration Magnesium Citrate 300 ml 02/23/24 18:16 Magnesium Citrate 300 Ml PO DAILY PRN Constipation Nystatin 1 applic 02/23/24 22:00 02/26/24 09:10 Nystatin Powder 15gm Bottle TOPICAL 1 applic BID BERRY Administration Protocol Oxycodone HCl 5 mg 02/25/24 12:09 02/26/24 08:57 Oxycodone 5 Mg Tablet PO 5 mg Q4H PRN Administration Pain Score 4-10 Senna/Docusate Sodium 2 tablet 02/23/24 22:00 02/26/24 08:59 Senna/Docusate Sodium 1 Tablet PO 2 tablet BID BERRY Administration Sodium Chloride 10 - 40 ml 02/23/24 16:46 0.9% Saline Lock 10 Ml Syringe IV UD PRN SALINE FLUSH Tuberculin PPD 0.1 ml 03/02/24 10:00 Tuberculin,Purif.Prot.Deriv. 50 Tu/Ml Vial ID 03/02/24 10:01 X1 ONE Umeclidinium/Vilanterol 1 puff 02/24/24 10:00 02/26/24 08:58 Umeclidinium Brm/Vilanterol 62.5-25 Mcg Inh INHALATION 1 puff DAILY BERRY Administration Warfarin Sodium 5 mg 02/23/24 17:00 02/25/24 17:33 Warfarin 5 Mg Tablet PO 5 mg DINNER BERRY Administration Problem List (Updated 02/24/24 @ 00:38 by Jose Turner) Chronic heart failure with preserved ejection fraction (HFpEF) (Acute) Hypokalemia (Acute) BPH (benign prostatic hyperplasia) (Acute) HLD (hyperlipidemia) (Acute) Hypertension (Chronic) COPD (chronic obstructive pulmonary disease) (Chronic) Critical aortic valve stenosis (Acute) Atrial fibrillation (Acute) Urinary retention (Acute) Orthostatic hypotension (Acute) Staphylococcus aureus bacteremia (Acute) Debility (Acute) Vital Signs Temp Pulse Resp BP Pulse Ox O2 Del Method 97.0 F L 70 17 110/54 L 94 Room Air 02/25/24 10:55 02/25/24 19:58 02/25/24 10:55 02/25/24 19:58 02/25/24 10:55 02/25/24 11:00 Oxygen Delivery Method Room Air Weight: 119.068 kg Body Mass Index (BMI) 36.7 Sodium 138 mmol/L (136-145) 02/24/24 06:30 Potassium 4.2 mmol/L (3.5-5.1) 02/24/24 06:30 Chloride 106 mmol/L (98-107) 02/24/24 06:30 Carbon Dioxide 31.0 mmol/L (21.0-32.0) 02/24/24 06:30 Anion Gap 1 (5-15) L 02/24/24 06:30 BUN 9 mg/dL (7-18) 02/24/24 06:30 Creatinine 0.53 mg/dL (0.70-1.30) L 02/24/24 06:30 Est GFR (MDRD) Af Amer 196 mL/min (>60) 02/24/24 06:30 Est GFR (MDRD) Non-Af 162 mL/min (>60) 02/24/24 06:30 BUN/Creatinine Ratio 17.0 RATIO (10-20) 02/24/24 06:30 Glucose 93 mg/dL (74-106) 02/24/24 06:30 Assessment/Plan: 1. Pain: acetaminophen 1000mg PO Q8, oxycodone 5mg PO Q6H PRN pain 4-10 and lidocaine 5% patch TD daily. Resident has had 5 doses of oxycodone for pain scores of 9 or 10 in the back/shoulder. Please continue to monitor for increasedpain, PRN usage, constipation, rash and respiratory depression. 2. Bowel: senna/docusate 2T PO BID and magnesium citrate 300mL PO daily PRN constipation. Please continue to monitor for constipation/diarrhea and PRN usage. Last documented bowel movement was today. 3. S. aureus bacteremia: linezolid 600mg PO Q12 thru 03/06/24. Please continue tomonitor platelets (last 291,000), diarrhea and rash. 4. Atrial fibrillation: warfarin 5mg PO dinner. Please continue to monitor for S/S of bleeding and INR (last 2.9). 5. Hyperlipidemia: atorvastatin 5mg PO QHS. Please continue to monitor lipid panel (last 02/08/24), LFT (last 02/20/24) and muscle pain. 6. COPD: Anoro 1puff daily and albuterol MDI 1 puff Q4H PRN shortness of breath.Resident has not used any PRN doses. Please continue to monitor HR (last 70), shortness of breath and dry mouth. 7. BPH: doxazosin 2mg PO QHS. Please continue to monitor for S/S of BPH and BP (last 110/). This medication is on the BEERs list due to orthostatic hypotension. Please monitor carefully as resident presented to ER with syncope. Assessment/Plan for indications treated with psychotropic medications: None Medical chart and medication regimen reviewed. The following medication irregularities or issues were identified: None Date Date of Note:: 02/26/24 Documented by User: Dr. Freedom Sutton MD 02/26/24 13:09 [facility] RX Drug Regimen Review Provider Comments Provider responsibility Provider Comments to Recommendations by Pharmacy: Agree 02/26/24 1028 <Electronically signed by Bhavani Rosario> Bhavani Rosario Cosigner Signature (if applicable): 02/26/24 1309 <Electronically signed by Freedom Sutton MD> CC: ~ Signed [facility] Work Phone: 1(905) 772-144204-12-2024 History and physical note Author Freedom Herman [facility] February 23, 2024 6:15pm Note Date/Time February 23, 2024 6:0 4pm [facility] Medical Records Department [address] [place] [id number] History & Physical Exam 02/23/24 1757 MR#: [id number] Acct: [id number] Name: ANDER MONTEIRO Rep #:[id number] : 1950 73 From: Freedom Sutton MD PCP: [facility] Status:ADM IN Location: [facility] [id number] HPI - General General Date of Admission: 02/23/24 Date of Service: 02/23/24 Chief Complaint: Here for rehabilitation. HPI Narrative 02/17/2024 ANDER MONTEIRO, is a 73 Male who presents to [facility] ED with syncope. Passed out, woke up on floor. Recent hospitalization for CHF, lower extremity edema, scrotal edema, treat with Lasix drip, lost 42 pounds. Discharged from hospital yesterday. Atrial fibrillation with RVR. 02/17/2024 Admit to [facility]. Serial cardiac enzymes, IV fluids for syncope. PT/OT for FTT. 02/17/2024 Hold Lasix, given Normal Saline 1 liter iv bolus, for orthostasis. Urinalysis, Ceftriaxone IV for UTI, fever. 02/17/2024 Blood cultures positive 2/2 for gram positive cocci. 02/18/2024 Blood culture growing Staph Aureus. Vancomycin IV, ID, TTE versus YADI for sepsis, Staph Aureus bacteremia, rule out endocarditis. [place] for BPH, urinary retention. Acyclovir 4x/day x 7 days for Shingles. 02/19/2024 Echo Normal LV. Moderate concentric LVH. EF 50%. Severe diffuse aortic valve calcification. Critical aortic stenosis. PASP 80mm HG. Moderate pulmonary HTN. 02/19/2024 Dr. Gomez recommended Vancomycin IV, YADI, Stop Acyclovir. 02/20/2024 YADI negative for endocarditis. 02/21/2024 Vancomycin IV for Staph Aureus bacteremia. Syncope 2/2 critical , Orthostasis. Wean oxgen for hypoxia. 02/22/2024 Linezolid x 12 days for S. Aureus bacteremia. PT/OT for TCU. 02/23/2024 Admit to TCU with debility, here for rehabilitation, strengthening, prior to discharge home with family. Resident son Yariel present at time of interview. [facility] Medical History (Updated 02/23/24 @ 18:[address] Freedom Sutton MD) (HFpEF) heart failure with preserved ejection fraction Anemia Aortic stenosis Chronic pain syndrome Compression fx, thoracic spine COPD (chronic obstructive pulmonary disease) Former smoker HLD (hyperlipidemia) Hypertension Longstanding persistent atrial fibrillation Obesity RAFAEL on CPAP Home Medications simvastatin 10 mg tablet 10 mg PO QHS cholesterol 09/06/22 [History Last Taken 02/22/24] terazosin 2 mg capsule 2 mg PO QHS prostate 09/06/22 [History Last Taken 02/22/24] warfarin 5 mg tablet 5 mg PO DAILY blood thinner 09/06/22 [History Last Taken 02/22/24 16:15] lidocaine 5 % topical patch 1 patch topical DAILY pain #15 ea 09/08/22 [Rx Last Taken 02/23/24] albuterol sulfate 90 mcg/actuation aerosol inhaler 1 puff inhalation Q4H PRN SOB02/08/24 [History Last Taken 02/23/24] tiotropium 2.5 mcg-olodaterol 2.5 mcg/actuation mist for inhalation (Stiolto Respimat) 1 puff inhalation BID breathing 02/08/24 [History Last Taken Unknown] acetaminophen 500 mg tablet 1,000 mg (2 x 500 mg) PO Q8 pain 30 days #180 tabs 02/16/24 [Rx Last Taken 02/23/24] oxycodone 5 mg tablet 5 mg PO Q6H PRN PRN Pain Score 4-10 7 days #28 tabs 02/16/24 [Rx Last Taken 02/23/24 09:35] oxycodone 10 mg tablet 10 mg PO TID pain 02/17/24 [History Last Taken 02/16/24] linezolid 600 mg tablet 600 mg PO Q12H Antibiotic 12 days #24 tabs 02/22/24 [Rx Last Taken Unknown] Allergy/AdvReac Type Severity Reaction Status Date / Time pramoxine Allergy Rash Verified 02/07/24 17:06 Family History Mother Cancer Father CAD (coronary artery disease) Heart disease Hypertension Myocardial infarction Surgical History History of cardiac radiofrequency ablation (RFA) History of tonsillectomy and adenoidectomy Social History household members: family Smoking Status: Former smoker how long ago did patient quit smoking: Quit ~ 35 yrs prior. alcohol intake: never substance use type: does not use ROS Constitutional Constitutional: Reports fatigue and weakness; Denies chills, fever(s) or weight gain ENT HEENT: Denies headache(s), nasal congestion or nasal discharge Cardiovascular Cardiovascular: Denies chest pain or palpitations Respiratory/Chest Respiratory/Chest: Denies cough, excessive phlegm production or shortness of breath with exertion Gastrointestinal Gastrointestinal: Denies abdominal pain, nausea or vomiting Genitourinary Genitourinary: Denies dysuria Musculoskeletal Musculoskeletal: Denies joint pain or joint swelling Integumentary Integumentary: Denies rash or wounds Neurologic Neurologic: Denies focal weakness, numbness or tingling Psychiatric Psychiatric: Denies anxiety, auditory hallucinations, depression, homicidal ideation or suicidal ideation Vital Signs Vital Signs Vital Signs: 02/23/24 16:12 Temperature 97.6 F L Temperature Source Temporal Pulse Rate 76 Respiratory Rate 18 Blood Pressure 104/66 Blood Pressure Mean 78 Blood Pressure Source Monitor Blood Pressure Position Sitting Blood Pressure Location Right Arm Pulse Ox 96 Oxygen Delivery Method Room Air Weight Weight: 119.295 kg Body Mass Index (BMI) 36.6 Physical Exam Const alert General Appearance: cooperative HEENT normocephalic Eyes PERRL and EOMs intact bilaterally Neck supple, no JVD and no carotid bruits Resp normal respiratory effort, normal air movement and clear to auscultation bilaterally Cardio regular rate and regular rhythm Heart Sounds: murmur systolic III/ blowing left sternal border to carotid arteries GI normal to inspection, nondistended, normoactive bowel sounds, non-tender and non-distended Extremity normal capillary refill General Extremity: Negative for edema Skin no rashes or lesions noted General Skin Exam: no breakdown Psych affect normal Appearance: appropriate Assessment & Plan Assessment/Plan (1) Debility: (2) Syncope: QUALIFIERS: Syncope type: unspecified Qualified Code(s): R55 - Syncope and collapse (3) Sepsis: (4) Staphylococcus aureus bacteremia: (5) Orthostatic hypotension: (6) Urinary retention: (7) Atrial fibrillation: (8) Critical aortic valve stenosis: (9) COPD (chronic obstructive pulmonary disease): (10) Hypertension: (11) HLD (hyperlipidemia): (12) BPH (benign prostatic hyperplasia): (13) Hypokalemia: (14) Chronic heart failure with preserved ejection fraction (HFpEF): PLAN: Plan 73 year old male with below past medical history hospitalized for syncope 2/2 orthostasis, critical aortic stenosis, complicated by sepsis, s. aureus bacteremia, endocarditis ruled out, admitted to TCU with debility, here for rehabilitation, strengthening, prior to discharge home with family. * Debility - PT/OT. * Pain - Tylenol 1000mg q8, Oxycodone 5mg q6 prn pain (4-10), Lidoderm 1 patch td daily. * Bowel - senna/colace 2 tablets bid, Magnesium citrate 300ml daily prn. * Adult immunization - Administer pneumonia vaccine, covid vaccine, flu vaccine as appropriate. * DVT prophylaxis - on warfarin. * COPD - Anoro 1 puff daily, Albuterol 1 puff q4h prn. * Hyperlipidemia - Atorvastatin 5mg qhs. * BPH - Doxazosin 2mg qhs. * S. Aureus bacteremia - Linezolid 600mg q12 thru 03/06/2024. * Atrial fibrillation - Warfarin 5mg daily, monitor inr. * Critical aortic stenosis - Follow up with Dr. Obrien at discharge to consider TAVR versus open AVR. 02/23/241814 <Electronically signed by Freedom Sutton MD> Cosigner Signature (if applicable): CC: Dr. Freedom Sutton MD; [facility]~ Signed [facility] Work Phone: 1(789) 472-784604-12-2024 Discharge summary Author Angela Welch [facility] February 23, 2024 12:21pm Note Date/Time February 23, 2024 12: 01pm [facility] Medical Records Department [address] [place] [id number] Transfer to [facility] MR#: [id number] Acct: [id number] Name: ANDER MONTEIRO Rep #:[id number] : 1950 73 From: Angela Welch DO PCP: [facility] Status:ADM IN Certification of patient admission REQUIRED AT TIME OF ADMISSION. I CERTIFY THAT POST-HOSPITAL ECF SERVICES ARE REQUIRED TO BE GIVEN ON AN IN-PATIENT BASIS BECAUSE OF THE ABOVE NAMED PATIENT'S NEED FOR SENIOR CARE CARE ON A CONTINUING BASIS FOR THE CONDITION(S) FOR WHICH HE/SHE WAS RECEIVING IN-PATIENT HOSPITAL SERVICES PRIOR TO HIS/HER TRANSFER TO THE F. 02/23/24 1201<Electronically signed by Angela Welch DO> Diet Diet Order/Speech Therapy: 02/20/24 11:07 Diet: Cardiac - Heart Healthy Sodium restricted to 2 grams daily and fluid restricted to 1500 cc daily Is pt able to select menu?: Yes Routine Orders/Code Status O2 Liters per Minute: 2 O2 Frequency: Continuous Keep PO Greater than or Equal to (%): 89 Routine Lab Work: CBC (1 week), BMP (1 week) and - (blood cultures MUST BE DRAWNon 03/07/2024) Code Status: Full Code Wound(s) r lower back: Wound Type: dried blisters SOFY: Wound Type: Skin Tear Dressing Change: Adaptic/foam dressing L lateral leg: Wound Type: Stasis Ulcer Dressing Change: Aquacel L great toe: Wound Type: Neuropathic/Diabetic Foot Ulcer Dressing Change: dry dressing coccyx: Wound Type: Pressure Injury Suggestions for Active Care Change Position every (hours): 2 Therapies Weight Bearing: Full weight bearing Physical Therapy: Eval and Treat Occupational Therapy: Eval and Treat Problem/Diagnosis (1) Staphylococcus aureus bacteremia: Status: Acute Code(s): R78.81 - Bacteremia; B95.61 - Methicillin susceptible Staphylococcus aureus infection as the cause of diseases classified elsewhere (2) Syncope and collapse: Status: Acute Code(s): R55 - Syncope and collapse (3) Aortic stenosis: Status: Acute Code(s): I35.0 - Nonrheumatic aortic (valve) stenosis Plan Long-term plan is for repeat blood cultures after antibiotics have been completed with outpatient follow-up to see cardiology to plan for aortic valve assessment for TAVR. Please get daily weights and if patient gains more or equal to 3 pounds in a 24- hour period please give Lasix 40 mg x 1 dose and reassess the next day avoid scheduled Lasix to avoid significant preload reduction due to his severe aortic stenosis. Allergies/Procedures Done in Hospital Allergies pramoxine Allergy (Verified 02/07/24 17:06) Rash Procedures: 2-D Echocardiogram, EKG, Transesophageal Echo and - (Chest x- ray/CTAof the chest) Type of Care/Length of Stay Estimated LOS: Convalescent Care Less Than 30 days Type of Care Needed: Skilled Rehab Potential: Fair Prognosis: Fair Additional Orders/Day of Discharge Day of Discharge: 02/23/24 Dietary and Speech Recommendations Dietitian Recommendations/Changes: cardiac diet, recommend fluid restriction as indicated; Cristhian BID for wound healing Follow Up Care Please follow up with your Primary Care Physician in: 4 weeks Please Follow Up With: Shady Obrien MD When: Week of Jul 11 or after-->appt needs made Discharge Plan Admission Admit Date/Time: 02/17/24 04:43 Attending Provider: Angela Welhc Primary Care Provider: [facility] Consulting Providers: Karen Sinha; Bharat Wilkins; Edvin Currie; Shady Obrien Discharge Orders/Prescriptions Prescriptions: New linezolid 600 mg tablet 600 mg PO Q12H 12 Days Qty: 24 0RF Discontinued acyclovir 800 mg Tablet 800 mg PO 4X/DAY 5 Days Qty: 20 0RF No Action simvastatin 10 mg Tablet 10 mg PO QHS terazosin 2 mg Capsule 2 mg PO QHS warfarin 5 mg Tablet 5 mg PO DAILY Hold Instructions: Until instructed to reinitiate after follow-up INR lidocaine 5 % Adhesive Patch,Medicated 1 patch topical DAILY Qty: 15 0RF Protocol: *Topical Application Instructions APPLICATION INSTRUCTIONS: To the painful area and back Stiolto Respimat 2.5-2.5 mcg/actuation mist 1 puff inhalation BID albuterol sulfate 90 mcg/actuation HFA aerosol inhaler 1 puff inhalation Q4H PRN (Reason: SOB) furosemide 40 mg Tablet 40 mg PO DAILY 30 Days Qty: 30 2RF oxycodone 5 mg Tablet 5 mg PO Q6H PRN PRN (Reason: Pain Score 4-10) 7 Days Qty: 28 0RF potassium chloride 20 mEq Tablet,Er Particles/Crystals 20 meq PO DAILY 30 Days Qty: 30 2RF acetaminophen 500 mg Tablet 1,000 mg PO Q8 30 Days Qty: 180 0RF Rx Instructions: Do not exceed 1000 mg 3 times a day oxycodone 10 mg tablet 10 mg PO TID Referrals / Follow Up: [facility] [Primary Care Provider] - (3) Aortic stenosis Qualifiers: Cardiac valve disease etiology: nonrheumatic Qualified Code(s): I35.0 - Nonrheumatic aortic (valve) stenosis 02/23/24 1201 <Electronically signed by Angela Welch DO> Cosigner Signature (if applicable): CC: Dr. Bharat Wilkins DO; Dr. Karen Sinha MD; Dr. Shady Obrien MD; Dr. Edvin Currie MD; [facility] ~ ADDENDUM by Dr. Angela Welch DO on 02/23/24 at 1220 Addendum Please check INR in 3 to 5 days. INR at the time of discharge was therapeutic at 2.8 and had been stable for 24 hours. 02/23/24 1220 <Electronically signed by Angela Welch DO> cc: Dr. Bharat Wilkins DO; Dr. Karen Sinha MD; Dr. Shady Obrien MD; Dr. Edvin Currie MD; [facility] ~* Signed [facility] Work Phone: [phone]) [phone] Discharge summary Author Angela Welch [facility] February 23, 2024 12:20pm Note Date/Time February 23, 2024 12: 03pm [facility] Medical Records Department [address] [place] [address] Discharge Summary 02/23/24 1201 MR#: [id number] Acct: [id number] Name: ANDER MONTEIRO Rep #:[id number] : 1950 73 From: Angela Welch DO PCP: [facility] Status:ADM IN Location: [facility] [id number] Providers Date of Admission: 02/17/24 Date of Discharge: 02/23/24 Primary Care Physician: [facility] Consultations 02/17/24 05:27 Consult: Onc/Wound/electromechanical inspector Routine Comment: Reason for Consult:: BL LE stasis wounds 02/18/24 11:02 Consult: Infectious Disease Routine Consulting Provider: Edvin Currie Reason for Consult: Staph bacteremia EMERGENT Consult: No Notified: Yes Date Notified: 02/19/24 Time Notified: 08:28 Method of Notification: Text 02/19/24 08:56 Consult: Infectious Disease Routine Consulting Provider: Edvin Currie Reason for Consult: MRSA bacteremia EMERGENT Consult: No Notified: Yes Date Notified: 02/19/24 Time Notified: 08:57 Method of Notification: Text 02/19/24 09:16 Consult: Cardiology Routine Consulting Provider: Shady Obrien Reason for Consult: AV stenosis with syncope and S. Aureus bacteremia EMERGENT Consult: No Notified: Yes Date Notified: 02/19/24 Time Notified: 09:17 Method of Notification: Verbal Reason For Visit: SYNCOPE, ADULT FTT Diagnosis Discharge Diagnosis (1) Staphylococcus aureus bacteremia: Status: Acute Code(s): R78.81 - Bacteremia; B95.61 - Methicillin susceptible Staphylococcus aureus infection as the cause of diseases classified elsewhere (2) Syncope and collapse: Status: Acute Code(s): R55 - Syncope and collapse (3) Aortic stenosis: Status: Acute Code(s): I35.0 - Nonrheumatic aortic (valve) stenosis Qualifiers: Cardiac valve disease etiology: nonrheumatic Qualified Code(s): I35.0 - Nonrheumatic aortic (valve) stenosis Medications at Discharge Home Medications simvastatin 10 mg tablet 10 mg PO QHS cholesterol 09/06/22 terazosin 2 mg capsule 2 mg PO QHS prostate 09/06/22 warfarin 5 mg tablet 5 mg PO DAILY blood thinner 09/06/22 lidocaine 5 % topical patch 1 patch topical DAILY pain #15 ea 09/08/22 albuterol sulfate 90 mcg/actuation aerosol inhaler 1 puff inhalation Q4H PRN SOB02/08/24 tiotropium 2.5 mcg-olodaterol 2.5 mcg/actuation mist for inhalation (Stiolto Respimat) 1 puff inhalation BID breathing 02/08/24 acetaminophen 500 mg tablet 1,000 mg (2 x 500 mg) PO Q8 pain 30 days #180 tabs 02/16/24 oxycodone 5 mg tablet 5 mg PO Q6H PRN PRN Pain Score 4-10 7 days #28 tabs 02/16/24 oxycodone 10 mg tablet 10 mg PO TID pain 02/17/24 linezolid 600 mg tablet 600 mg PO Q12H 12 days #24 tabs 02/22/24 Hospital Course Operations None Procedures 2-D Echocardiogram, EKG, Transesophageal Echo and - (Chest x-ray/CTA of the chest) Summary of Care Provided Minutes Spent on Discharge: 42 Hospital Course: Mr. Monteiro is a 73-year-old white male who presented to emergency department at [facility] on 02/17/2024 after a syncopal event. The patient has a very complicated past medical history. He was discharged here recently on 02/16/2024 following treatment for heart failure with preserved ejection fraction and new moderate to severe aortic valve stenosis with scrotal edema. Echocardiogram was done at that time and showed EF of 65 to 70%, concentric LVH, moderately enlarged LA and RA, normal RV and moderate to severe aortic valve stenosis with plan for outpatient cardiac catheterization. He is on empiric acyclovir for suspected shingles and represented on 02/17/2024 after his syncopal episode that he experienced at home. He denied any injury but was found at approximately 1 AM by his family. He was complaining of lightheadedness and dizziness with positional changes prior to the syncopal event and reported he felt significantly weak and fatigued when he was trying activity. He did diurese extremely well to the point where he had 42 pounds of weight loss duringhis last hospitalization. Vital signs on presentation showed a temperature of 97, heart rate 118, blood pressure 123/85, respiratory was 33 and oxygen saturations were 95% on 4 L. He is typically on room air at baseline. His CBC showed a normal white count and stable hemoglobin but he did have a lymphocytosis. His BMP showed mild hyponatremia the sodium of 134 and a serum creatinine of 1.18 which is close to his baseline. His troponin was 40. Chest x-ray showed no acute findings. EKG was A-fib with RVR showing a heart rate of 117 but no evidence of acute ischemia. He was given 500 cc bolus in the emergency department admitted to the medical floor. Blood cultures were obtained prior to admission by the emergency department. His orthostatic vital signs were positive on presentation and he did appear dry. His Lasix were held and he was given IV fluids. Preliminary blood cultures were noted to have gram-positive cocci in clusters which is concerning for staph species. He was started on vancomycin. His cultures were identified to be MRSA bacteremia. Cardiology and infectious disease were consulted. Cardiology recommended we obtain both a TTE and a YADI. Both were done and his EF is stable when compared to previous, aortic valve showed critical aortic valve stenosis but no vegetations were identified on either study. Cardiology has recommended that he be evaluated for TAVR once his blood cultures are cleared. They request that repeat blood cultures be obtained after his antibiotics are completed. He has 12 more days of antibiotics at the time of discharge with linezolid per ID recommendations. The plan is for him to complete his antibiotics on the and obtain a cultures on the with outpatient follow-up in the cardiology office the week of March [address] Obrien to assess the sterility of his repeat cultures after antibiotics are completed and for referral for TAVR. He does have some wounds on bilateral lower extremities bothare fairly superficial and have no signs of infection at this time however we dosuspect his bacteremia source is likely skin related. We held his Lasix during his hospitalization and controlled his edema with fluid and salt restricted diet. We have asked that he be weighed on a daily basis at the transitional care unit after discharge and to dose Lasix on a as needed basis if his weight goes up equal to or greater than 3 pounds in a 24-hour period. He is to be on afluid restricted diet of 1500 cc daily and a sodium restricted diet of 2 g of sodium or less daily. His INR was stable throughout his hospitalization and at the time of discharge was 2.8. I would recommend a repeat INR be done in the next 5 to 7 days and then per recommendations of the covering physician at the halfway facility following. He was evaluated by rehab services while hospitalized and they did deem him appropriate for ongoing rehab as an inpatientafter discharge. He was accepted at the transitional care unit and we received pre-CERT on 02/23/2024. He was able to be discharged there in stable condition on 02/23/2024. Discharge diagnoses: Staph aureus bacteremia Syncope Severe to critical aortic stenosis Hypoxia Persistent atrial fibrillation Chronic anemia Thrombocytopenia Hyponatremia Hypophosphatemia Debility HFpEF Moderate pulmonary hypertension Hypertension Operative anemia Chronic venous stasis ulcers History of recent herpes zoster infection BPH with obstruction COPD History of vertebral fractures/chronic back pain Obesity Physical Exam Const alert, oriented x3, no apparent distress and well nourished; Negative for average body habitus or healthy appearing Constitutional Narrative: Obese, older, white male, sitting up in a chair at the bedside, napping, BiPAP in place patient awakens easily, currently appears comfortable and nontoxic, appears chronically ill and older than stated age General Appearance: cooperative, comfortable, well kempt and well developed Orientation / Consciousness: awake, oriented to person, oriented to place and oriented to time Exam Limitations: no limitations Nutritional Appearance: obese HEENT normocephalic, head/scalp atraumatic and moist oral mucous membranes HEENT Narrative: Dentition is extremely poor, Mallampati is 3, no thrush, mild hearing loss Eyes PERRL, EOMs intact bilaterally and conjunctivae normal Eyes Narrative: No scleral icterus Neck full ROM, no lymphadenopathy and supple Neck Narrative: Trachea midline, no thyroid enlargement Resp normal respiratory effort, normal air movement, no retractions, no use of accessory muscles and clear to auscultation bilaterally Resp Narrative: Diminished diffusely but clear Auscultation: Negative for crackles, rhonchi or wheezes Cardio regular rate, S1 normal heart sound, no rub, no gallops, no clicks and peripheral pulses 2+ throughout; Negative for regular rhythm, S2 normal heart sound or no murmurs Cardio Narrative: Irregular irregular rhythm with good rate control, 3 out of 6 to 4 out of 6 systolic murmur with quiet S2 GI normal to inspection, nondistended, normoactive bowel sounds, soft to palpation and non-tender Extremity Extremity Narrative: No clubbing or cyanosis, edema is stable in bilateral lower extremities Skin Skin Narrative: Bilateral lower extremity wounds noted and reviewed with skin care nurse who is at the bedside today, no drainage, no signs of infection, no erythema Neuro oriented x3, CN's II-XII intact bilaterally, moves all extremities and no focal motor deficits Neuro Narrative: Significant generalized weakness noted but no focal deficits Speech: speech normal Psych mental status grossly normal and affect normal Psych Narrative: patient is able to interact appropriately, very pleasant, eye contact is good Weight / BMI Weight Weight: 111.2 kg Body Mass Index (BMI) 34.2 ABG / Lab / Microbiology Data 02/23/24 07:00 02/23/24 07:00 Laboratory: Laboratory Results - last 24 hr 02/23/24 07:00: WBC 7.7, RBC 3.74 L, Hgb 10.8 L, Hct 34.5 L, MCV 92.2, MCH 28.9,MCHC 31.3 L, RDW Std Deviation 55.3 H, RDW Coeff of Medardo 16.2 H, Plt Count 249, MPV 10.9, PT 28.9 H, INR 2.8, Sodium 137, Potassium 4.0, Chloride 108 H, Carbon Dioxide 24.0, Anion Gap 5, BUN 10, Creatinine 0.48 L, Estim Creat Clear Calc 102.74, Est GFR (MDRD) Af Amer 218, Est GFR (MDRD) Non-Af 180, BUN/Creatinine Ratio 20.8 H, Glucose 90, Calcium 8.7 Microbiology: Microbiology 02/20/24 11:07 Blood Culture (Wb) - Left Hand Blood Culture - Preliminary No growth in 48 hours. 02/19/24 10:15 Blood Culture (Wb) - Left Wrist Blood Culture - Preliminary No growth in 48 hours. 02/19/24 09:18 Blood Culture (Wb) - Left Hand Blood Culture - Preliminary No growth in 48 hours. 02/17/24 10:55 Blood Culture (Wb) - Left Wrist Bacteria Detection (PCR) - Final Staphylococcus aureus 02/17/24 10:55 Blood Culture (Wb) - Left Wrist Blood Culture - Final Meth. resistant Staph. aureus 02/17/24 11:15 Blood Culture (Wb) - Left Wrist Blood Culture - Final Staphylococcus aureus 02/17/24 13:50 Urine, Clean Catch Urine Culture - Final Proteus sp. 02/17/24 11:22 Mucosa - Nose Respiratory Panel (PCR) - Final D/C Instructions Discharge Diet: Low fat / Low cholesterol, 8 Cup Fluid Restriction and 2000 mg Sodium Diet Please Follow Up With: Shady Obrien MD Meaningful Use Info Meaningful Use Diagnoses (Choose all that apply): None applicable Discharge Plan Admission Admit Date/Time: 02/17/24 04:43 Primary Reason for Your Visit: Syncope Attending Provider: Angela Welch Primary Care Provider: [facility],[place] Consulting Providers: Karen Sinha; Bharat Wilkins; Edvin Currie; Shady Obrien Instructions Additional Instructions / Restrictions: 1. Repeat blood cultures need to be obtained on 03/07/2024 2. Patient needs to be weighed on daily basis and dose Lasix 40 mg orally if hegains equal to or greater than 3 pounds in a 24-hour period and then reassess the next day Discharge Orders/Prescriptions Prescriptions: New linezolid 600 mg tablet 600 mg PO Q12H 12 Days Qty: 24 0RF Continued simvastatin 10 mg Tablet 10 mg PO QHS terazosin 2 mg Capsule 2 mg PO QHS warfarin 5 mg Tablet 5 mg PO DAILY Hold Instructions: Until instructed to reinitiate after follow-up INR lidocaine 5 % Adhesive Patch,Medicated 1 patch topical DAILY Qty: 15 0RF Protocol: *Topical Application Instructions APPLICATION INSTRUCTIONS: To the painful area and back Stiolto Respimat 2.5-2.5 mcg/actuation mist 1 puff inhalation BID albuterol sulfate 90 mcg/actuation HFA aerosol inhaler 1 puff inhalation Q4H PRN (Reason: SOB) oxycodone 5 mg Tablet 5 mg PO Q6H PRN PRN (Reason: Pain Score 4-10) 7 Days Qty: 28 0RF acetaminophen 500 mg Tablet 1,000 mg PO Q8 30 Days Qty: 180 0RF Rx Instructions: Do not exceed 1000 mg 3 times a day Held oxycodone 10 mg tablet 10 mg PO TID Hold Instructions: Unless needed Discontinued furosemide 40 mg Tablet 40 mg PO DAILY 30 Days Qty: 30 2RF acyclovir 800 mg Tablet 800 mg PO 4X/DAY 5 Days Qty: 20 0RF potassium chloride 20 mEq Tablet,Er Particles/Crystals 20 meq PO DAILY 30 Days Qty: 30 2RF Referrals / Follow Up: Shady Obrien MD [Med Staff - Active Staff] - (Appointment will need to be made for the week of March 11 or after) [facility] [Primary Care Provider] - Disposition Disposition (needs filled in before D/C Order can be placed): Alf Facility Charges/Coding Visit Charges Inpatient E&M: 58859 SNF Disch >30 Min 02/23/24 1220 <Electronically signed by Angela Welch DO> Cosigner Signature (if applicable): CC: Dr. Angela Welch DO; Dr. Shady Obrien MD; [facility]~ Signed [facility] Work Phone: 1(363) 648-692004-11-2024 Progress note Author Angela Welch [facility] February 22, 2024 12:14pm Note Date/Time February 22, 2024 12: 14pm [facility] Medical Records Department [address] [place] [address] Progress Note - Hospitalist 02/22/24 1207 MR#: [id number] Acct: [id number] Name: ANDER MONTEIRO Rep #:[id number] : 1950 73 From: Angela Welch DO PCP: [facility] Status:ADM IN Location: [place] [address] Reason for Visit Reason for Visit: Syncope Subjective Subjective No issues overnight. Patient has no complaints at this time. Plan from ID is linezolid for 12 days at the time of discharge. Plan is for TCU at discharge once pre-CERT is obtained. Objective Data Objective Data Vital Signs: Vital Signs Temp Pulse Resp BP Pulse Ox O2 Del Method O2 Flow Rate 97.2 F L 72 18 93/63 96 Nasal Cannula 2 02/22/24 11:32 02/22/24 11:32 02/22/24 11:32 02/22/24 11:32 02/22/24 11:32 02/22/24 11:32 02/22/24 11:32 Oxygen Flow Rate (L/min) 2 Oxygen Delivery Method Nasal Cannula Weight: 112 kg Body Mass Index (BMI) 34.4 Intake & Output: Intake and Output for Last 24 Hours 02/20/24 02/21/24 02/22/24 23:59 23:59 23:59 Intake Total 2080 / 2080 2260 / 2260 1490 / 1490 Output Total 2800 / 2800 2450 / 2450 1150 / 1150 Balance -720 / -720 -190 / -190 340 / 340 Lab / Micro Data 02/21/24 05:40 02/21/24 05:40 Labs: Laboratory Results - last 24 hr 02/21/24 12:05: Vancomycin Trough 18.3 H 02/22/24 07:00: PT 30.5 H, INR 2.9 Micro: Microbiology 02/20/24 11:07 Blood Culture (Wb) - Left Hand Blood Culture - Preliminary No growth in 48 hours. 02/19/24 10:15 Blood Culture (Wb) - Left Wrist Blood Culture - Preliminary No growth in 48 hours. 02/19/24 09:18 Blood Culture (Wb) - Left Hand Blood Culture - Preliminary No growth in 48 hours. 02/17/24 10:55 Blood Culture (Wb) - Left Wrist Bacteria Detection (PCR) - Final Staphylococcus aureus 02/17/24 10:55 Blood Culture (Wb) - Left Wrist Blood Culture - Final Meth. resistant Staph. aureus 02/17/24 11:15 Blood Culture (Wb) - Left Wrist Blood Culture - Final Staphylococcus aureus 02/17/24 13:50 Urine, Clean Catch Urine Culture - Final Proteus sp. 02/17/24 11:22 Mucosa - Nose Respiratory Panel (PCR) - Final Rhythm Strip Rhythm Strip: A-fib Rate: 75 Ectopy: PVC(s) Physical Exam Const alert, oriented x3, no apparent distress and well nourished; Negative for average body habitus or healthy appearing Constitutional Narrative: Obese, older, white male, sitting up in a chair at the bedside, napping, BiPAP in place patient awakens easily, currently appears comfortable and nontoxic, appears chronically ill and older than stated age General Appearance: cooperative and comfortable HEENT normocephalic, head/scalp atraumatic and hearing grossly normal bilaterally Resp normal respiratory effort, normal air movement, no retractions, no use of accessory muscles and clear to auscultation bilaterally Resp Narrative: Diminished diffusely but clear Auscultation: Negative for crackles, rhonchi or wheezes Cardio regular rate, S1 normal heart sound, no rub, no gallops, no clicks and peripheral pulses 2+ throughout; Negative for regular rhythm, S2 normal heart soundor no murmurs Cardio Narrative: Irregular irregular rhythm with good rate control, 3 out of 6 to 4 out of 6 systolic murmur with quiet S2 GI normal to inspection, nondistended, normoactive bowel sounds, soft to palpation and non-tender Extremity Extremity Narrative: No clubbing or cyanosis, edema is stable Neuro oriented x3, moves all extremities and no focal motor deficits Neuro Narrative: Significant generalized weakness noted but no focal deficits Speech: speech normal Psych affect normal Psych Narrative: patient is able to interact appropriately, very pleasant, eye contact is good Assessment & Plan Assessment/Plan (1) Staphylococcus aureus bacteremia: (2) Syncope and collapse: (3) Aortic stenosis: QUALIFIERS: Cardiac valve disease etiology: nonrheumatic Qualified Code(s): I35.0 - Nonrheumatic aortic (valve) stenosis PLAN: Plan Staph aureus bacteremia -Likely related to skin -Clearance blood cultures from 02/19/2024 are negative at 72 hours -TTE done 02/19/2024 shows an EF of 50% with moderate LVH, severe diffuse aortic valve calcification with a mean aortic valve gradient of 45 mmHg consistent withcritical aortic stenosis, pulmonary artery pressures of 80 mmHg and no obvious vegetations -YADI done 02/20/2024 did not show any signs of IE -Continue vancomycin while inpatient and plan is for 14 days of linezolid at discharge -ID following-appreciate input Syncope -Suspect related to overdiuresis with severe aortic stenosis -Patient was orthostatic on admission -Hold home Lasix due to low pressure -Both TTE and YADI show critical to severe aortic stenosis -Cardiology following Critical to severe aortic stenosis -Patient will need repeat blood cultures after antibiotics are completed with outpatient follow-up to see cardiology following to arrange further evaluation for his aortic stenosis and possible TAVR -Will request that these cultures to be done at TCU after antibiotics are completed -Likely contributed to syncopal event -Now in the setting of Staph aureus bacteremia -No signs of vegetation on TTE or YADI -Cardiology is following-appreciate input Hypoxia -Currently on 2 L -Wean as able -Patient does have moderate to severe pulmonary hypertension with right ventricular systolic pressures of 80 mmHg on his echocardiogram -May be related to bacteremia -Suspect this is related to his severe aortic stenosis and pulmonary hypertension -CTA of the chest did not show any PE but did show some small bilateral pleural effusions with a 1.8 x 0.7 cm pleural-based nodule that was concerning for a focal area of infiltrate -Chest x-ray on presentation was unremarkable -Lasix on hold due to soft pressures Persistent atrial fibrillation/RVR on presentation -Rate is now controlled -INR is 2.9 -Continue warfarin -Continue home Lopressor Chronic anemia -Hemoglobin stable -Baseline appears as if it has been running between 10 and 12 -Most recent hemoglobin was stable at 10.6 Thrombocytopenia -Resolved Hyponatremia -Home Lasix on hold due to pressures -Will repeat BMP tomorrow -Continue to monitor Hypophosphatemia -resolved Debility -PT/OT following-appreciate input -Plan is for discharge to TCU HFpEF/moderate pulmonary hypertension/HTN/HPL -Continue home metoprolol -Lasix on hold -Continue home statin Venous stasis ulcers -Chronic -Wound care following Recent herpes zoster infection -Lesions noted on right lower back-resolving -Patient has completed acyclovir -Okay to be out of precautions 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 COPD -Continue home inhalers History of vertebral fractures/chronic back pain -Follows with pain management -Continue home regimen -Continue home lidocaine patches Obesity -BMI 34.7 -Recommend weight loss -Complicates treatment, prognosis, outcomes DVT prophylaxis -Continue home warfarin -INR remains therapeutic-2.9 CODE STATUS -Full code is verified on admission Disposition -Patient is medically stable for discharge to TCU -Will plan for discharge to TCU tomorrow if its pre-CERT is [id number] was started today Charges/Coding Visit Charges Inpatient E&M: 22993 Subs Hosp L2 02/22/24 1214 <Electronically signed by Angela Welch DO> Cosigner Signature (if applicable): CC: ~ Signed [facility] Work Phone: 1(988) 974-380904-11-2024 Progress note Author Edvin Currie [facility] February 22, 2024 10:16am Note Date/Time February 22, 2024 10: 16am [facility] Medical Records Department [facility] [place] [address] Progress Note - Infect Disease 02/22/24 1015 MR#: [id number] Acct: [id number] Name: ANDER MONTEIRO Rep #:[id number] : 1950 73 From: Edvin herring MD PCP: [facility] Status:ADM IN Location: [place] [address] Physical Exam Narrative Feeling better, no fever, no n/v/d. Const alert and no apparent distress Resp normal air movement and clear to auscultation bilaterally Cardio Heart Sounds: murmur GI soft to palpation, non-tender and non-distended Skin no rashes or lesions noted ID ID: Route of nutrition/ use of supplements: [] Nutritional Intake: [] IV Site: [] Lima Catheter: [] Assessment & Plan Assessment/Plan (1) Staphylococcus aureus bacteremia: PLAN: MRSA bacteremia. Repeat bcx ngtd at 72h, TTE showed no veg but does have critical aortic valve stenosis. YADI showed on veg. Cont iv vanc while inpatient. Completed acyclovir for ? shingles. Given rapid bcx clearance since 02/18 and negative YADI, ok for discharge on po linezolid for 2 weeks total abx. Will follow, wrote rx. (2) Syncope and collapse: (3) Aortic stenosis: QUALIFIERS: Cardiac valve disease etiology: nonrheumatic Qualified Code(s): I35.0 - Nonrheumatic aortic (valve) stenosis 02/22/24 1016 <Electronically signed by Edvin Currie MD> Cosigner Signature (if applicable): CC: ~ Signed [facility] Work Phone: 1(171) 917-820904-11-2024 Consult note [facility] February 22, 2024 9:29am Note Date/Time February 21, 2024 2:0 3pm [facility] Medical Records Department [address] [place] [address] Pharmacokinetic/Renal -Consult 02/21/24 1358 MR#: [id number] Acct: [id number] Name: ANDER MONTEIRO Rep #:[id number] : 1950 73 From: Henry bray PCP: [facility] Status:ADM IN Y Location: [place] [address] Consult Antibiotic Management Pharmacy has been consulted to manage selected antibiotic: Vancomycin Type of Intervention Type of Consult: Follow-up Suspected Infection Suspected Infection: Bacteremia Prior Doses of Antibiotics Prior Doses of Antibiotics Received/Current Regimen: current dose is vanc 1500mg IV q12h Labs Labs: Sodium 137 mmol/L (136-145) 02/21/24 05:40 Potassium 3.9 mmol/L (3.5-5.1) 02/21/24 05:40 Chloride 105 mmol/L (98-107) 02/21/24 05:40 Carbon Dioxide 28.0 mmol/L (21.0-32.0) 02/21/24 05:40 Anion Gap 4 (5-15) L 02/21/24 05:40 BUN 14 mg/dL (7-18) 02/21/24 05:40 Creatinine 0.49 mg/dL (0.70-1.30) L 02/21/24 05:40 Est GFR (MDRD) Af Amer 214 mL/min (>60) 02/21/24 05:40 Est GFR (MDRD) Non-Af 177 mL/min (>60) 02/21/24 05:40 BUN/Creatinine Ratio 28.6 RATIO (10-20) H 02/21/24 05:40 Glucose 103 mg/dL (74-106) 02/21/24 05:40 Vancomycin Trough 18.3 ug/mL (5.0-15.0) H 02/21/24 12:05 Microbiology Microbiology: Microbiology 02/17/24 10:55 Blood Culture (Wb) - Left Wrist Bacteria Detection (PCR) - Final Staphylococcus aureus 02/17/24 10:55 Blood Culture (Wb) - Left Wrist Blood Culture - Final Meth. resistant Staph. aureus 02/17/24 11:15 Blood Culture (Wb) - Left Wrist Blood Culture - Final Staphylococcus aureus 02/17/24 13:50 Urine, Clean Catch Urine Culture - Final Proteus sp. 02/17/24 11:22 Mucosa - Nose Respiratory Panel (PCR) - Final Dosing Weight Weight used for dosin.7 kg Estimated Creatinine Clearance Estimated Creatinine Clearance: 103ml/min Goal Trough Goal Trough: 15-20 mcg/mL Pharmacy Plan for Drug Dosing Pharmacy Plan for Drug Dosing: The vanc trough drawn at 12:05 today (approx 11 hours after the previous dose) was 18.3. This is in goal range so will keep same dose. Repeat another trough in 2 days to make sure it does not go above goal since it did go up from 16.4 two days ago to 18.3 today. Pharmacy Service will continue to monitor and adjust dosing as required. Follow-Up Labs Follow-Up Labs: Trough: Vancomycin Date/Time Labs Ordered Labs to be done on [date and time ordered]: 02/23/24 12:30 02/21/24 1403 <Electronically signed by Henry Panda erg> Date _ Henry 02/22/24 0929 <Electronically signed by Edvin berry MD> Cosigner Signature (if applicable): Date Edvin Currie MD CC: ~ Signed [facility] Work Phone: 1(527) 580-635604-11-2024 Progress note Author Shady Obrien [facility] February 22, 2024 7:44am Note Date/Time February 22, 2024 7:4 5am [facility] Medical Records Department [address] [place] [address] Progress Note - Cardiology 02/22/24 0739 MR#: [id number] Acct: [id number] Name: ANDER MONTEIRO Rep #:[id number] : 1950 73 From: Shady Obrien MD PCP: [facility] Status:ADM IN Location: [facility] [id number]- [id number] Subjective Subjective Patient is resting comfortably in bed at 30 degrees. Objective Data Vital Signs: Vital Signs Temp Pulse Resp BP Pulse Ox O2 Del Method O2 Flow Rate 98 F 74 16 107/70 94 CPAP 3 02/22/24 03:20 02/22/24 03:20 02/22/24 03:20 02/22/24 03:20 02/22/24 03:20 02/22/24 03:24 02/22/24 03:24 Oxygen Flow Rate (L/min) 3 Oxygen Delivery Method CPAP Weight: 246 lb 14.684 oz Body Mass Index (BMI) 34.4 Intake & Output: Intake and Output for Last 24 Hours 02/20/24 02/21/24 02/22/24 23:59 23:59 23:59 Intake Total 2080 / 2080 2260 / 2260 770 / 770 Output Total 2800 / 2800 2450 / 2450 350 / 350 Balance -720 / -720 -190 / -190 420 / 420 Lab / Micro Data 02/21/24 05:40 02/21/24 05:40 Labs: Laboratory Results - last 24 hr 02/21/24 12:05: Vancomycin Trough 18.3 H Micro: Microbiology 02/20/24 11:07 Blood Culture (Wb) - Left Hand Blood Culture - Preliminary No growth in 48 hours. 02/19/24 10:15 Blood Culture (Wb) - Left Wrist Blood Culture - Preliminary No growth in 48 hours. 02/19/24 09:18 Blood Culture (Wb) - Left Hand Blood Culture - Preliminary No growth in 48 hours. Rhythm Strip Rhythm Strip: A-fib Rate: 75 Cardiology Labs/Tests Rhythm: EKG: ECHO: Stress Test: Cardiac Cath: PCI: CT Surgery: Holter monitor: EPS: PPM: CXR: Chest CT Scan: Physical Exam Const Constitutional Narrative: The patient seemed lethargic with his answers to questions. HEENT normocephalic Chest inspection of chest normal Resp Resp Narrative: Respiratory rate seems to be slightly increased today. His lungs are clear anteriorly. Extremity Extremity Narrative: Legs remain wrapped. Left great toe with has a bandage in place. Assessment & Plan Assessment/Plan (1) Staphylococcus aureus bacteremia: PLAN: We will need to see the patient's blood sterilized 2 weeks after antibiotics are completed. (2) Aortic stenosis: QUALIFIERS: Cardiac valve disease etiology: nonrheumatic Qualified Code(s): I35.0 - Nonrheumatic aortic (valve) stenosis PLAN: The patient is critical aortic stenosis appears to be stable at this pointin time. I feel he can proceed to rehabilitation with continued antibiotic therapy per the ID team. Once the patient's blood is deemed to be sterile with blood cultures negative off antibiotics we will proceed with right and left heart catheterization. Thiswill be done in the ambulatory setting. The patient should follow-up in the [place] [facility] office in about 3 to 4 weeks or 2 weeks after he completes antibiotic therapy. He should have blood cultures done at 2 weeks after his antibiotic therapy is completed. PLAN: Plan 1. Duration of antibiotic therapy per per the ID team 2. Request repeat blood cultures 2 weeks after antibiotics are completed. 3. Should be arranged to follow-up in the [place] [facility] office after the antibiotics are completed and the blood cultures have been obtained. 4. The patient from a cardiovascular standpoint can proceed with rehabilitation. Charges/Coding Visit Charges Inpatient E&M: 45643 Subs Hosp L1 02/22/24 0744 <Electronically signed by Shady Obrien MD> Cosigner Signature (if applicable): CC: ~ Signed [facility] Work Phone: 1(525) 890-710104-10-2024 Progress note Author Angela Welch [facility] February 21, 2024 5:21pm Note Date/Time February 21, 2024 5:2 1pm [facility] Medical Records Department [address] [place] [address] Progress Note - Hospitalist 02/21/24 1713 MR#: [id number] Acct: [id number] Name: ANDER MONTEIRO Rep #:[id number] : 1950 73 From: Angela Welch DO PCP: [facility] Status:ADM IN Location: [place] [place] [address] Reason for Visit Reason for Visit: Syncope Subjective Subjective No issues overnight. Patient has no complaints at this time. We discussed the overall plan of discharge to TCU once we have a medical plan that stabilized with regards to his antibiotics and duration for ongoing rehab and then repeat blood cultures after he is completed antibiotics with outpatient follow-up with cardiology to follow for recommendations with regard to his valve. Patient voiced understanding and no questions at this time. Objective Data Objective Data Vital Signs: Vital Signs Temp Pulse Resp BP Pulse Ox O2 Del Method O2 Flow Rate 97.7 F L 69 18 94/57 L 98 Nasal Cannula 2 02/21/24 16:02/21/24 16:02/21/24 16:08 02/21/24 16:08 02/21/24 16:08 02/21/24 16:02/21/24 16:08 Oxygen Flow Rate (L/min) 2 Oxygen Delivery Method Nasal Cannula Weight: 112.7 kg Body Mass Index (BMI) 34.6 Intake & Output: Intake and Output for Last 24 Hours 02/19/24 02/20/24 02/21/24 23:59 23:59 23:59 Intake Total 3410 / 3410 2080 / 2080 1270 / 1270 Output Total 2200 / 2200 2800 / 2800 1600 / 1600 Balance 1210 / 1210 -720 / -720 -330 / -330 Lab / Micro Data 02/21/24 05:40 02/21/24 05:40 Labs: Laboratory Results - last 24 hr 02/21/24 05:40: WBC 5.6, RBC 3.82 L, Hgb 10.6 L, Hct 34.8 L, MCV 91.1, MCH 27.7,MCHC 30.5 L, RDW Std Deviation 53.2 H, RDW Coeff of Medardo 16.0 H, Plt Count 178, MPV 10.9, Immature Gran % (Auto) 0.500, Neut % (Auto) 63.3, Lymph % (Auto) 15.8 L, [place] % (Auto) 14.0 H, Eos % (Auto) 4.8, Baso % (Auto) 1.6 H, Absolute Neuts (auto) 3.5, Absolute Lymphs (auto) 0.88, Nucleated RBC % 0, PT 25.8 H, INR 2.4, Sodium 137, Potassium 3.9, Chloride 105, Carbon Dioxide 28.0, Anion Gap 4 L, BUN14, Creatinine 0.49 L, Estim Creat Clear Calc 103.42, Est GFR (MDRD) Af Amer 214, Est GFR (MDRD) Non-Af 177, BUN/Creatinine Ratio 28.6 H, Glucose 103, Calcium 8.8, Phosphorus 2.7 02/21/24 12:05: Vancomycin Trough 18.3 H Micro: Microbiology 02/19/24 10:15 Blood Culture (Wb) - Left Wrist Blood Culture - Preliminary No growth in 48 hours. 02/19/24 09:18 Blood Culture (Wb) - Left Hand Blood Culture - Preliminary No growth in 48 hours. 02/17/24 10:55 Blood Culture (Wb) - Left Wrist Bacteria Detection (PCR) - Final Staphylococcus aureus 02/17/24 10:55 Blood Culture (Wb) - Left Wrist Blood Culture - Final Meth. resistant Staph. aureus 02/17/24 11:15 Blood Culture (Wb) - Left Wrist Blood Culture - Final Staphylococcus aureus 02/17/24 13:50 Urine, Clean Catch Urine Culture - Final Proteus sp. 02/17/24 11:22 Mucosa - Nose Respiratory Panel (PCR) - Final Rhythm Strip Rhythm Strip: A-fib Rate: 70 Ectopy: PVC(s) Physical Exam Const alert, oriented x3, no apparent distress and well nourished; Negative for average body habitus or healthy appearing Constitutional Narrative: Obese, older, white male, sitting up in bed, currently appears comfortable and nontoxic, appears chronically ill and older than stated age HEENT normocephalic, head/scalp atraumatic, hearing grossly normal bilaterally and moist oral mucous membranes HEENT Narrative: Mallampati 2-3, no thrush, dentition is poor Resp normal respiratory effort, normal air movement, no retractions, no use of accessory muscles and clear to auscultation bilaterally Resp Narrative: Diminished diffusely but clear Auscultation: Negative for crackles, rhonchi or wheezes Cardio regular rate, S1 normal heart sound, no rub, no gallops, no clicks and peripheral pulses 2+ throughout; Negative for regular rhythm, S2 normal heart sound or no murmurs Cardio Narrative: Irregular irregular rhythm with good rate control, 3 out of 6 to 4 out of 6 systolic murmur with quiet S2 GI normal to inspection, nondistended, normoactive bowel sounds, soft to palpation and non-tender Extremity Extremity Narrative: No clubbing or cyanosis, edema is stable Neuro oriented x3, moves all extremities and no focal motor deficits Neuro Narrative: Significant generalized weakness noted but no focal deficits Speech: speech normal Psych mental status grossly normal and affect normal Psych Narrative: patient is able to interact appropriately and asked good questions Assessment & Plan Assessment/Plan (1) Staphylococcus aureus bacteremia: (2) Syncope and collapse: (3) Aortic stenosis: QUALIFIERS: Cardiac valve disease etiology: nonrheumatic Qualified Code(s): I35.0 - Nonrheumatic aortic (valve) stenosis PLAN: Plan Staph aureus bacteremia -Likely related to skin -Clearance blood cultures from 02/19/2024 are negative at 48 hours -TTE done 02/19/2024 shows an EF of 50% with moderate LVH, severe diffuse aortic valve calcification with a mean aortic valve gradient of 45 mmHg consistent withcritical aortic stenosis, pulmonary artery pressures of 80 mmHg and no obvious vegetations -YADI done 02/20/2024 did not show any signs of IE -Continue vancomycin--> need to clarify duration and antibiotic at discharge -ID following-appreciate input Syncope -Suspect related to overdiuresis with severe aortic stenosis -Patient was orthostatic on admission -Restart home Lasix -Both TTE and YADI show critical to severe aortic stenosis -Cardiology following Critical to severe aortic stenosis -Patient will need repeat blood cultures after antibiotics are completed with outpatient follow-up to see cardiology following to arrange further evaluation for his aortic stenosis and possible TAVR -Likely contributed to syncopal event -Now in the setting of Staph aureus bacteremia -No signs of vegetation on TTE or YADI -Cardiology is following-discussed case with Dr. Obrien today Hypoxia -Currently on 2 L -Wean as able -Patient does have moderate to severe pulmonary hypertension with right ventricular systolic pressures of 80 mmHg on his echocardiogram -May be related to bacteremia -Suspect this is related to his severe aortic stenosis and pulmonary hypertension -CTA of the chest did not show any PE but did show some small bilateral pleural effusions with a 1.8 x 0.7 cm pleural-based nodule that was concerning for a focal area of infiltrate -Chest x-ray on presentation was unremarkable -Continue home Lasix Persistent atrial fibrillation/RVR on presentation -Rate is now controlled -INR is 2.4 -Continue warfarin -Continue home Lopressor Thrombocytopenia -Resolved Hyponatremia -Mild at 137 -Continue home Lasix -Continue to monitor Hypophosphatemia -resolved Debility -PT/OT following-appreciate input HFpEF/moderate pulmonary hypertension/HTN/HPL -Continue home metoprolol -continue home Lasix -Continue home statin Venous stasis ulcers -Chronic -Wound care following Recent herpes zoster infection -Lesions noted on right lower back-resolving -Patient has completed acyclovir -Okay to be out of precautions 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 COPD -Continue home inhalers History of vertebral fractures/chronic back pain -Follows with pain management -Continue home regimen -Continue home lidocaine patches Obesity -BMI 34.7 -Recommend weight loss -Complicates treatment, prognosis, outcomes DVT prophylaxis -Continue home warfarin -INR remains therapeutic CODE STATUS -Full code is verified on admission Charges/Coding Visit Charges Inpatient E&M: 08450 Subs Hosp L2 02/21/24 0522 <Electronically signed by Angela Yuri DO> Cosigner Signature (if applicable): CC: ~ Signed [facility] Work Phone: 1(532) 613-852204-10-2024 Progress note Author Edvin Currie [facility] February 21, 2024 1:56pm Note Date/Time February 21, 2024 1:5 6pm [facility] Medical Records Department [address] [place] [address] Progress Note - Infect Disease 02/21/24 1354 MR#: [id number] Acct: [id number] Name: ANDER MONTEIRO Rep #:[id number] : 1950 73 From: Edvin herring MD PCP: [facility] Status:ADM IN Location: [place] [address] Physical Exam Narrative Feeling better, no fever Const alert and no apparent distress General Appearance: cooperative Resp normal air movement and clear to auscultation bilaterally Cardio Heart Sounds: murmur GI soft to palpation, non-tender and non-distended Skin no rashes or lesions noted ID ID: Route of nutrition/ use of supplements: [] Nutritional Intake: [] IV Site: [] Lima Catheter: [] Assessment & Plan Assessment/Plan (1) Staphylococcus aureus bacteremia: PLAN: MRSA bacteremia. Repeat bcx ngtd, TTE showed no veg but does have critical aortic valve stenosis. YADI showed on veg. Cont iv vanc. Completed acyclovir for ? shingles. Ok to be out of isolation. Will follow (2) Syncope and collapse: (3) Aortic stenosis: QUALIFIERS: Cardiac valve disease etiology: nonrheumatic Qualified Code(s): I35.0 - Nonrheumatic aortic (valve) stenosis 02/21/24 1356 <Electronically signed by Edvin Currie MD> Cosigner Signature (if applicable): CC: ~ Signed [facility] Work Phone: 1(450) 185-441004-10-2024 Progress note Author Shady Obrien [facility] February 21, 2024 8:15am Note Date/Time February 21, 2024 8:1 6am [facility] Medical Records Department [address] [place] [address] Progress Note - Cardiology 02/21/24 0809 MR#: [id number] Acct: [id number] Name: ANDER MONTEIRO Rep #:[id number] : 1950 73 From: Shady Obrien MD PCP: [facility] Status:ADM IN Location: [place] [address] Subjective Subjective Patient was sleeping in bed with his BiPAP in place. He awoke and was denying any shortness of breath denies any chest pain or tightness. He was sleeping flat. YADI did not show any vegetations. Infectious disease is following the patient and managing the antibiotics. Objective Data Vital Signs: Vital Signs Temp Pulse Resp BP Pulse Ox O2 Del Method O2 Flow Rate 97.5 F L 67 18 119/80 97 CPAP 2 02/21/24 03:56 02/21/24 04:42 02/21/24 04:42 02/21/24 03:56 02/21/24 03:56 02/21/24 04:46 02/21/24 04:46 Oxygen Flow Rate (L/min) 2 Oxygen Delivery Method CPAP Weight: 248 lb 7.375 oz Body Mass Index (BMI) 34.6 Intake & Output: Intake and Output for Last 24 Hours 02/19/24 02/20/24 02/21/24 23:59 23:59 23:59 Intake Total 3410 / 3410 2080 / 2080 1030 / 1030 Output Total 2200 / 2200 2800 / 2800 1000 / 1000 Balance 1210 / 1210 -720 / -720 30 / 30 Lab / Micro Data 02/21/24 05:40 02/21/24 05:40 Labs: Laboratory Results - last 24 hr 02/21/24 05:40: WBC 5.6, RBC 3.82 L, Hgb 10.6 L, Hct 34.8 L, MCV 91.1, MCH 27.7,MCHC 30.5 L, RDW Std Deviation 53.2 H, RDW Coeff of Medardo 16.0 H, Plt Count 178, MPV 10.9, Immature Gran % (Auto) 0.500, Neut % (Auto) 63.3, Lymph % (Auto) 15.8 L, [place] % (Auto) 14.0 H, Eos % (Auto) 4.8, Baso % (Auto) 1.6 H, Absolute Neuts (auto) 3.5, Absolute Lymphs (auto) 0.88, Nucleated RBC % 0, PT 25.8 H, INR 2.4, Sodium 137, Potassium 3.9, Chloride 105, Carbon Dioxide 28.0, Anion Gap 4 L, BUN14, Creatinine 0.49 L, Estim Creat Clear Calc 103.42, Est GFR (MDRD) Af Amer 214, Est GFR (MDRD) Non-Af 177, BUN/Creatinine Ratio 28.6 H, Glucose 103, Calcium 8.8, Phosphorus 2.7 Micro: Microbiology 02/17/24 10:55 Blood Culture (Wb) - Left Wrist Bacteria Detection (PCR) - Final Staphylococcus aureus 02/17/24 10:55 Blood Culture (Wb) - Left Wrist Blood Culture - Final Meth. resistant Staph. aureus 02/17/24 11:15 Blood Culture (Wb) - Left Wrist Blood Culture - Final Staphylococcus aureus Rhythm Strip Rhythm Strip: A-fib Rate: 70 Cardiology Labs/Tests 02/21/24 05:40: WBC 5.6, RBC 3.82 L, Hgb 10.6 L, Hct 34.8 L, MCV 91.1, MCH 27.7,MCHC 30.5 L, Plt Count 178, MPV 10.9, Immature Gran % (Auto) 0.500, Neut % (Auto) 63.3, Lymph % (Auto) 15.8 L, [place] % (Auto) 14.0 H, Eos % (Auto) 4.8, Baso% (Auto) 1.6 H, Absolute Neuts (auto) 3.5, Nucleated RBC % 0, PT 25.8 H, INR 2.4, Sodium 137, Potassium 3.9, Chloride 105, Carbon Dioxide 28.0, Anion Gap 4 L, BUN 14, Creatinine 0.49 L, Est GFR (MDRD) Af Amer 214, Est GFR (MDRD) Non-Af 177, BUN/Creatinine Ratio 28.6 H, Glucose 103, Calcium 8.8, Phosphorus 2.7 Rhythm: EKG: ECHO: Stress Test: Cardiac Cath: PCI: CT Surgery: Holter monitor: EPS: PPM: CXR: Chest CT Scan: Radiography Diagnostic Testing: Radiology Impression Transesophageal Echocardiogram 02/20/24 10:00 Interpretation Summary Normal left ventricle. Left ventricular systolic function is lower limits of normal. The left ventricular ejection fraction is 50 %. Severe diffuse aortic valve calcification. Severe aortic stenosis. No obvious valvular vegetation or masses noted. Ordering Physician: Shady Obrien Performed By: Mervat Alvarado RDCS and Student Physical Exam Const oriented x3 HEENT normocephalic Eyes EOMs intact bilaterally Neck no JVD Chest inspection of chest normal Resp normal respiratory effort Auscultation: crackles bilateral lower Cardio regular rate, no rub and no gallops Rhythm: abnormal rhythm irregularly irregular Heart Sounds: murmur systolic III/ harsh left sternal border and right sternalborder to the neck and other (Widely throughout the precordium) GI soft to palpation Extremity General Extremity: edema bilateral lower extremity Details: trace Skin Skin Narrative: Left great toe remains wrapped. Psych mental status grossly normal Assessment & Plan Assessment/Plan (1) Staphylococcus aureus bacteremia: PLAN: Infectious diseases following the patient and monitoring the antibiotics. We will need to document sterilization of his blood prior to proceeding with invasive evaluation. Will defer timing of repeat cultures to the infectious disease. (2) Aortic stenosis: QUALIFIERS: Cardiac valve disease etiology: nonrheumatic Qualified Code(s): I35.0 - Nonrheumatic aortic (valve) stenosis PLAN: The patient has critical aortic stenosis and should be amenable to TAVR. This will require further invasive and noninvasive workup including right and left heart catheterization as well as CT angio of the great vessels and pelvic vessels. Will defer further invasive evaluation until the septicemia is cleared. (3) Longstanding persistent atrial fibrillation: PLAN: Continue with rate control and oral anticoagulation with Coumadin long- term. PLAN: Plan 1. Will continue to monitor peripherally until the patient's blood is considered sterile. 2. Will need to proceed with right and left heart catheterization as part of a TAVR workup once the blood is sterile. 3. Following the catheterization determination will be made of the next best option for approaching the critical aortic stenosis. Charges/Coding Visit Charges Inpatient E&M: 95875 Subs Hosp 02/21/24 5437 <Electronically signed by Shady Obrien MD> Cosigner Signature (if applicable): CC: ~ Signed [facility] Work Phone: 1(239) 695-531304-09-2024 Consult note Author Angela Welch [facility] February 20, 2024 5:27pm Note Date/Time February 19, 2024 1:16 pm [facility] Medical Records Department [address] [place] [address] Pharmacokinetic/Renal -Consult 02/19/24 1316 MR#: [id number] Acct: [id number] Name: ANDER MONTEIRO Rep #:[id number] : 1950 73 From: Bhavani Rosario [facility]CP: [facility] Status:ADM IN Y Location: [place] [address] Consult Antibiotic Management Pharmacy has been consulted to manage selected antibiotic: Vancomycin Type of Intervention Type of Consult: Follow-up Suspected Infection Suspected Infection: Bacteremia Labs Labs: Sodium 131 mmol/L (136-145) L 02/19/24 04:05 Potassium 3.6 mmol/L (3.5-5.1) 02/19/24 04:05 Chloride 100 mmol/L (98-107) 02/19/24 04:05 Carbon Dioxide 26.0 mmol/L (21.0-32.0) 02/19/24 04:05 Anion Gap 5 (5-15) 02/19/24 04:05 BUN 24 mg/dL (7-18) H 02/19/24 04:05 Creatinine 0.62 mg/dL (0.70-1.30) L 02/19/24 04:05 Est GFR (MDRD) Af Amer 164 mL/min (>60) 02/19/24 04:05 Est GFR (MDRD) Non-Af 136 mL/min (>60) 02/19/24 04:05 BUN/Creatinine Ratio 39.0 RATIO (10-20) H 02/19/24 04:05 Glucose 95 mg/dL (74-106) 02/19/24 04:05 Vancomycin Trough 16.4 ug/mL (5.0-15.0) H 02/19/24 12:25 Microbiology Microbiology: Microbiology 02/17/24 11:15 Blood Culture (Wb) - Left Wrist Blood Culture - Preliminary Staphylococcus aureus 02/17/24 10:55 Blood Culture (Wb) - Left Wrist Bacteria Detection (PCR) - Final Staphylococcus aureus 02/17/24 10:55 Blood Culture (Wb) - Left Wrist Blood Culture - Preliminary Meth. resistant Staph. aureus 02/17/24 13:50 Urine, Clean Catch Urine Culture - Final Proteus sp. 02/17/24 11:22 Mucosa - Nose Respiratory Panel (PCR) - Final Pharmacy Plan for Drug Dosing Pharmacy Plan for Drug Dosing: VANCOMYCIN LEVEL RECEIVED Current Vancomycin Dose: 1500MG Q12 Number of Doses Received: 3 Vancomycin Level: 16.4 MG/DL Hours Since Last Dose: 12 Renal Function: SCR 0.62 MG/DL, CRCL 103 ML/MIN Renal Function Trend: improved Lab/Micro: MRSA bacteremia Vancomycin Plan/Comments: 12 hour trough is therapeutic at 16.4 mg/dL (goal 15- 20). Will continue current dosing and get a trough in 2 days. Pending Level: 02/21/24 @ 1230 Pharmacy Service will continue to monitor and adjust dosing as required. 02/19/24 1317 <Electronically signed by Bhavani Rosario> Date _ Bhavani Rosario 02/20/24 1727 <Electronically signed by Angela Hernandes> Cosigner Signature (if applicable): Date Angela Welch DO CC: ~ Signed [facility] Work Phone: [phone]) [phone] Progress note Author Angela Welch [facility] February 20, 2024 2:31pm Note Date/Time February 20, 2024 2:31 pm [facility] Medical Records Department [address] [place] [address] Progress Note - Hospitalist 02/20/24 1421 MR#: [id number] Acct: [id number] Name: ANDER MONTEIRO Rep #:[id number] : 1950 73 From: Angela Welch DO PCP: [facility] Status:ADM IN Location: [facility] [id number] Reason for Visit Reason for Visit: Syncope Subjective Subjective Patient states physically he is feeling a little bit better but had a rough night because he was not allowed to have anything to drink due to n.p.o. status for YADI today. No other significant complaints at this time. Wound nurses there and I was able to look at the wounds with her. No significant drainage and they do not appear to be that deep. Objective Data Objective Data Vital Signs: Vital Signs Temp Pulse Resp BP Pulse Ox O2 Del Method O2 Flow Rate 97.2 F L 78 18 105/68 96 Nasal Cannula 2 02/20/24 09:55 02/20/24 09:55 02/20/24 09:55 02/20/24 09:55 02/20/24 10:11 02/20/24 10:11 02/20/24 10:11 Oxygen Flow Rate (L/min) 2 Oxygen Delivery Method Nasal Cannula Weight: 112.8 kg Body Mass Index (BMI) 34.7 Intake & Output: Intake and Output for Last 24 Hours 02/18/24 02/19/24 02/20/24 23:59 23:59 23:59 Intake Total 2320 / 2570 3410 / 3410 530 / 530 Output Total 650 / 1050 2200 / 2200 450 / 450 Balance 1670 / 1520 1210 / 1210 80 / 80 Lab / Micro Data 02/20/24 05:10 02/20/24 05:10 Labs: Laboratory Results - last 24 hr 02/20/24 05:10: WBC 6.1, RBC 3.77 L, Hgb 10.7 L, Hct 34.1 L, MCV 90.5, MCH 28.4,MCHC 31.4 L, RDW Std Deviation 52.7 H, RDW Coeff of Medardo 16.0 H, Plt Count 149 L,MPV 11.0, Immature Gran % (Auto) 0.300, Neut % (Auto) 65.6, Lymph % (Auto) 15.0 L, [place] % (Auto) 15.2 H, Eos % (Auto) 2.6, Baso % (Auto) 1.3 H, Absolute Neuts (auto) 4.0, Absolute Lymphs (auto) 0.92, Nucleated RBC % 0, PT 23.1 H, INR 2.1, Sodium 134 L, Potassium 3.9, Chloride 102, Carbon Dioxide 27.0, Anion Gap 5, BUN18, Creatinine 0.54 L, Estim Creat Clear Calc 103.56, Est GFR (MDRD) Af Amer 190, Est GFR (MDRD) Non-Af 157, BUN/Creatinine Ratio 33.1 H, Glucose 93, Calcium8.4 L, Phosphorus 2.4 L, Magnesium 1.9, Total Bilirubin 1.50 H, AST 32, ALT 17, Alkaline Phosphatase 107, Total Protein 7.2, Albumin 2.5 L, Globulin 4.7 H, Albumin/Globulin Ratio 0.5 L Micro: Microbiology 02/17/24 10:55 Blood Culture (Wb) - Left Wrist Bacteria Detection (PCR) - Final Staphylococcus aureus 02/17/24 10:55 Blood Culture (Wb) - Left Wrist Blood Culture - Final Meth. resistant Staph. aureus 02/17/24 11:15 Blood Culture (Wb) - Left Wrist Blood Culture - Final Staphylococcus aureus 02/17/24 13:50 Urine, Clean Catch Urine Culture - Final Proteus sp. 02/17/24 11:22 Mucosa - Nose Respiratory Panel (PCR) - Final Radiography Diagnostic Testing: Radiology Impression Transesophageal Echocardiogram 02/20/24 10:00 Interpretation Summary Normal left ventricle. Left ventricular systolic function is lower limits of normal. The left ventricular ejection fraction is 50 %. Severe diffuse aortic valve calcification. Severe aortic stenosis. No obvious valvular vegetation or masses noted. Ordering Physician: Shady Obrien Performed By: Mervat Alvarado RDCS and Student Rhythm Strip Rhythm Strip: A-fib Rate: 75 Ectopy: PVC(s) Physical Exam Const alert, oriented x3, no apparent distress and well nourished; Negative for average body habitus or healthy appearing Constitutional Narrative: Obese, older, white male, sitting up in bed, currently appears comfortable and nontoxic, wound nurses at the bedside looking at his wounds on his legs, he doesappear chronically ill and older than stated age HEENT normocephalic, head/scalp atraumatic, hearing grossly normal bilaterally and moist oral mucous membranes HEENT Narrative: Dentition is poor with multiple missing teeth and receding gums Resp normal respiratory effort, normal air movement, no retractions, no use of accessory muscles and No clear to auscultation bilaterally Resp Narrative: Crackles at bases bilaterally with normal aeration at the apices, no signs of respiratory distress Auscultation: crackles; Negative for rhonchi or wheezes Cardio regular rate, S1 normal heart sound, no rub, no gallops and no clicks; Negative for regular rhythm, S2 normal heart sound or no murmurs Cardio Narrative: Irregular irregular rhythm with good rate control, 3 out of 6 to 4 out of 6 systolic murmur with quiet S2, radiates to bilateral carotids GI normal to inspection, nondistended, normoactive bowel sounds, soft to palpation and non-tender Extremity full ROM Extremity Narrative: Significant wrinkling of the lower extremities underneath the Kw[place] bandages when they removed, linear wound on the left lateral aspect of the distal lower leg that appears to be fairly superficial with no significant drainage, also wound noted on the plantar surface of the left great toe that does not appear to be significantly deep either, patient with bilateral lower extremity edema that appears to be improving from last hospitalization, no cyanosis or clubbing noted Neuro oriented x3, moves all extremities and no focal motor deficits Neuro Narrative: Significant generalized weakness noted but no focal deficits Speech: speech normal Psych mental status grossly normal Psych Narrative: affect is slightly flat however eye contact is good and patient is able to interact appropriately and asked good questions Assessment & Plan Assessment/Plan (1) Staphylococcus aureus bacteremia: (2) Syncope and collapse: (3) Aortic stenosis: QUALIFIERS: Cardiac valve disease etiology: nonrheumatic Qualified Code(s): I35.0 - Nonrheumatic aortic (valve) stenosis PLAN: Plan Staph aureus bacteremia -Patient did not rate criteria for sepsis per Sep 1 or Sep 3 guidelines -Likely related to skin -Clearance blood cultures from 02/19/2024 pending -TTE done yesterday shows an EF of 50% with moderate LVH, severe diffuse aortic valve calcification with a mean aortic valve gradient of 45 mmHg consistent withcritical aortic stenosis, pulmonary artery pressures of 80 mmHg and no obvious vegetations -YADI done today did not show any signs of IE -Continue vancomycin -ID following-appreciate input Syncope -Suspect related to overdiuresis with severe aortic stenosis -Patient was orthostatic on admission -Continue to hold diuresis for now until okay to reinitiate by cardiology -Both TTE and YADI show critical to severe aortic stenosis -Cardiology following Critical to severe aortic stenosis -Cardiology is following and patient will need evaluated for aortic valve once his infection is cleared, his teeth can be pulled and his wounds are stable -Likely contributed to syncopal event -Now in the setting of Staph aureus bacteremia -No signs of vegetation on TTE or YADI Hypoxia -This is new -Currently on 2 L -Wean as able -Patient does have moderate to severe pulmonary hypertension with right ventricular systolic pressures of 80 mmHg on his echocardiogram -May be related to bacteremia -Etiology is not clear at this time -CTA of the chest did not show any PE but did show some small bilateral pleural effusions with a 1.8 x 0.7 cm pleural-based nodule that was concerning for a focal area of infiltrate -Chest x-ray on presentation was unremarkable -Restart home Lasix Persistent atrial fibrillation/RVR on presentation -Rate is now controlled -INR is 2.1 -Continue warfarin -Continue home Lopressor Thrombocytopenia -Mild -Suspect related to acute infection -Seems to be improving -Continue to monitor Hyponatremia -Mild at 134 -Restart home Lasix -Continue to monitor Hypophosphatemia -Very minimal -Will replete with oral phosphorus -Recheck in a.m. 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 INR CODE STATUS -Full code is verified on admission Charges/Coding Visit Charges Inpatient E&M: 92249 Subs Hosp L2 02/20/24 1431 <Electronically signed by Angela Welch DO> Cosigner Signature (if applicable): CC: ~ Signed [facility] Work Phone: 1(225) 880-813304-09-2024 Progress note Author Edvin Currie [facility] February 20, 2024 10:28am Note Date/Time February 20, 2024 10:2 8am [facility] Medical Records Department [address] [place] [address] Progress Note - Infect Disease 02/20/24 1027 MR#: [id number] Acct: [id number] Name: ANDER MONTEIRO Rep #:[id number] : 1950 73 From: Edvin herring MD PCP: [facility] Status:ADM IN Location: [place] [address] Physical Exam Narrative Feeling ok, no fever, no n/v/d. Const alert and no apparent distress General Appearance: cooperative Resp normal air movement and clear to auscultation bilaterally Cardio Heart Sounds: murmur GI soft to palpation, non-tender and non-distended Skin Skin Narrative: no new rash, BLE wrapped ID ID: Route of nutrition/ use of supplements: [] Nutritional Intake: [] IV Site: [] Lima Catheter: [] Assessment & Plan Assessment/Plan (1) Staphylococcus aureus bacteremia: PLAN: MRSA bacteremia per pcr. Repeat bcx pending, TTE showed no veg but does have critical aortic valve stenosis. YADI planned. Cont iv vanc. Completed acyclovir for ? shingles. Ok to be out of isolation. Will follow (2) Syncope and collapse: (3) Aortic stenosis: QUALIFIERS: Cardiac valve disease etiology: nonrheumatic Qualified Code(s): I35.0 - Nonrheumatic aortic (valve) stenosis 02/20/24 1028 <Electronically signed by Edvin Currie MD> Cosigner Signature (if applicable): CC: ~ Signed [facility] Work Phone: 1(875) 508-371704-09-2024 Progress note Author Shady Obrien [facility] February 20, 2024 8:04am Note Date/Time February 20, 2024 8:04 am [facility] Medical Records Department [address] [place] [address] Progress Note - Cardiology 02/20/24 0755 MR#: [id number] Acct: [id number] Name: ANDER MONTEIRO Rep #:[id number] : 1950 73 From: Shady Obrien MD PCP: [facility] Status:ADM IN Location: [place] [address] Subjective Subjective The patient is resting comfortably flat in the bed this morning on his BiPAP. The patient is scheduled for transesophageal echocardiogram today. The echo yesterday transthoracic showed an EF of 50% with a D-shaped LV. Pulmonary artery pressures 80 mmHg and mild RV dysfunction 2+ tricuspid regurgitation critical aortic stenosis with peak gradient of 86 mean gradient of 45 and trace aortic insufficiency. There were no definitive vegetations seen. It is recommended a transesophageal echo be performed today to better evaluate the valves for vegetations. Objective Data Vital Signs: Vital Signs Temp Pulse Resp BP Pulse Ox O2 Del Method O2 Flow Rate 96.9 F L 62 16 104/76 97 CPAP 3 02/20/24 04:46 02/20/24 04:46 02/20/24 04:46 02/20/24 04:46 02/20/24 04:46 02/20/24 04:46 02/20/24 04:46 Oxygen Flow Rate (L/min) 3 Oxygen Delivery Method CPAP Weight: 248 lb 10.903 oz Body Mass Index (BMI) 34.7 Intake & Output: Intake and Output for Last 24 Hours 02/18/24 02/19/24 02/20/24 23:59 23:59 23:59 Intake Total 2320 / 2570 3410 / 3410 530 / 530 Output Total 650 / 1050 2200 / 2200 450 / 450 Balance 1670 / 1520 1210 / 1210 80 / 80 Lab / Micro Data Attestation: I reviewed the patient's lab results. 02/20/24 05:10 02/20/24 05:10 Labs: Laboratory Results - last 24 hr 02/19/24 12:25: Vancomycin Trough 16.4 H 02/20/24 05:10: WBC 6.1, RBC 3.77 L, Hgb 10.7 L, Hct 34.1 L, MCV 90.5, MCH 28.4,MCHC 31.4 L, RDW Std Deviation 52.7 H, RDW Coeff of Medardo 16.0 H, Plt Count 149 L,MPV 11.0, Immature Gran % (Auto) 0.300, Neut % (Auto) 65.6, Lymph % (Auto) 15.0 L, [place] % (Auto) 15.2 H, Eos % (Auto) 2.6, Baso % (Auto) 1.3 H, Absolute Neuts (auto) 4.0, Absolute Lymphs (auto) 0.92, Nucleated RBC % 0, PT 23.1 H, INR 2.1, Sodium 134 L, Potassium 3.9, Chloride 102, Carbon Dioxide 27.0, Anion Gap 5, BUN18, Creatinine 0.54 L, Estim Creat Clear Calc 103.56, Est GFR (MDRD) Af Amer 190, Est GFR (MDRD) Non-Af 157, BUN/Creatinine Ratio 33.1 H, Glucose 93, Calcium8.4 L, Phosphorus 2.4 L, Magnesium 1.9, Total Bilirubin 1.50 H, AST 32, ALT 17, Alkaline Phosphatase 107, Total Protein 7.2, Albumin 2.5 L, Globulin 4.7 H, Albumin/Globulin Ratio 0.5 L Micro: Microbiology 02/17/24 10:55 Blood Culture (Wb) - Left Wrist Bacteria Detection (PCR) - Final Staphylococcus aureus 02/17/24 10:55 Blood Culture (Wb) - Left Wrist Blood Culture - Final Meth. resistant Staph. aureus 02/17/24 11:15 Blood Culture (Wb) - Left Wrist Blood Culture - Final Staphylococcus aureus Rhythm Strip Rhythm Strip: A-fib Rate: 75 Cardiology Labs/Tests 02/20/24 05:10: WBC 6.1, RBC 3.77 L, Hgb 10.7 L, Hct 34.1 L, MCV 90.5, MCH 28.4,MCHC 31.4 L, Plt Count 149 L, MPV 11.0, Immature Gran % (Auto) 0.300, Neut % (Auto) 65.6, Lymph % (Auto) 15.0 L, [place] % (Auto) 15.2 H, Eos % (Auto) 2.6, Baso% (Auto) 1.3 H, Absolute Neuts (auto) 4.0, Nucleated RBC % 0, PT 23.1 H, INR 2.1, Sodium 134 L, Potassium 3.9, Chloride 102, Carbon Dioxide 27.0, Anion Gap 5, BUN 18, Creatinine 0.54 L, Est GFR (MDRD) Af Amer 190, Est GFR (MDRD) Non-Af 157, BUN/Creatinine Ratio 33.1 H, Glucose 93, Calcium 8.4 L, Phosphorus 2.4 L, Magnesium 1.9, Total Bilirubin 1.50 H Rhythm: EKG: ECHO: Stress Test: Cardiac Cath: PCI: CT Surgery: Holter monitor: EPS: PPM: CXR: Chest CT Scan: Radiography Diagnostic Testing: Radiology Impression Chest CTA 02/19/24 09:20 IMPRESSION: Increased markings at the lung bases with small bilateral pleural effusions left greater than right suggestive of atelectasis and/or early infiltrates. There is a 1.8 cm x 0.7 cm pleural-based nodule in the superior medial aspect of the left lower lobe. This may represent a focal area of infiltrate. Follow-up recommended. No evidence of pulmonary embolism. Electronically Signed: Anderson Vivas MD at 10:26 EDT , Echocardiogram 02/19/24 09:35 Interpretation Summary Normal left ventricle. Moderate concentric left ventricular hypertrophy. Left ventricular systolic function is lower limits of normal. The left ventricular ejection fraction is 50 %. Severe diffuse aortic valve calcification. Mean aortic valve gradient 45 mmHg. Critical aortic stenosis. Pulmonary artery systolic pressure is 80 mmHg. Moderate pulmonary hypertension. No obvious valvular vegetations seen. Ordering Physician: Angela Welch Performed By: Salvatore Renteria RCS Physical Exam Const oriented x3 Constitutional Narrative: BiPAP in place HEENT normocephalic Eyes EOMs intact bilaterally Neck no JVD Chest inspection of chest normal Resp normal respiratory effort Resp Narrative: Clear to auscultation anteriorly Cardio regular rate Rhythm: abnormal rhythm irregularly irregular Heart Sounds: murmur systolic III/ harsh left sternal border and right sternalborder to the neck GI soft to palpation Extremity General Extremity: edema bilateral lower extremity Details: trace Skin Skin Narrative: Left great toe wound has been wrapped. Neuro Neuro Narrative: Alert and oriented x 3 Psych mental status grossly normal Assessment & Plan Assessment/Plan (1) Staphylococcus aureus bacteremia: PLAN: YADI is being performed today to rule out SBE. Antibiotic therapy continued per the primary service. (2) Longstanding persistent atrial fibrillation: PLAN: Patient's heart rate is better controlled at 70-80 today. He remains on Coumadin therapy long-term for oral anticoagulation. (3) Aortic stenosis: QUALIFIERS: Cardiac valve disease etiology: nonrheumatic Qualified Code(s): I35.0 - Nonrheumatic aortic (valve) stenosis PLAN: The patient has critical aortic stenosis. We are evaluating him for possible surgical or TAVR intervention. We would need to confirm that his blood is sterile, his dental issues are addressed, and an invasive evaluation of his coronary arteries and valvular heart disease performed prior to referring him to the structural heart program. (4) Syncope and collapse: PLAN: This is probably multifactorial related to his recent aggressive diuresis,his critical aortic stenosis, and fluctuating blood pressures. PLAN: Plan 1. YADI today. Will dictate duration of antibiotic therapy depending on results. 2. Will need to determine next steps in his evaluation for possible intervention on his aortic valve. This would be deferred until his blood is considered sterile. 3. She is start to arrange for dental evaluation to clear him for aortic valve replacement. Charges/Coding Visit Charges Inpatient E&M: 05416 Subs Hosp L3 02/20/24 0804 <Electronically signed by Shady Obrien MD> Cosigner Signature (if applicable): CC: ~ Signed [facility] Work Phone: 1(330) 160-607104-08-2024 Progress note Author Angela Welch [facility] February 19, 2024 2:17pm Note Date/Time February 19, 2024 9:00 am [facility] Medical Records Department [address] [place] [address] Progress Note - Hospitalist 02/19/2458 MR#: [id number] Acct: [id number] Name: ANDER MONTEIRO Rep #:[id number] : 1950 73 From: Angela Welch DO PCP: [facility] Status:ADM IN Location: [facility] [id number] Reason for Visit Reason for Visit: Syncope Subjective Subjective Mr. Monteiro is a 73-year-old white male who presented to emergency department at [facility] on 02/17/2024 after a syncopal event. The patient has a very complicated past medical history. He was discharged here recently on 02/16/2024 following treatment for heart failure with preserved ejection fraction and new moderate to severe aortic valve stenosis with scrotal edema. Echocardiogram was done at that time and showed EF of 65 to 70%, concentric LVH,moderately enlarged LA and RA, normal RV and moderate to severe aortic valve stenosis with plan for outpatient cardiac catheterization. He is on empiric acyclovir for suspected shingles and represented on 02/17/2024 after his syncopal episode that he experienced at home. He denied any injury but was found at approximately 1 AM by his family. He was complaining of lightheadedness and dizziness with positional changes prior to the syncopal event and reported he felt significantly weak and fatigued when he was trying activity. He did diurese extremely well to the point where he had 42 pounds of weight loss during his last hospitalization. Vital signs on presentation showed a temperature of 97, heart rate 118, blood pressure 123/85, respiratory was 33 and oxygen saturations were 95% on 4 L. He is typically on room air at baseline. His CBC showed a normal white count and stable hemoglobin but he did have a lymphocytosis. His BMP showed mild hyponatremia the sodium of 134 and a serum creatinine of 1.18 which is close to his baseline. His troponin was 40. Chest x-ray showed no acute findings. EKG was A-fib with RVR showing a heart rate of 117 but no evidence of acute ischemia. He was given 500 cc bolus in the emergency department admitted to the medical floor. Blood cultures were obtained prior to admission by the emergency department. His orthostatic vital signs were positive on presentation and he did appear dry. His Lasix were held and he was given IV fluids. Preliminary blood cultures were noted to have gram-positive cocci in clusters which is concerning for staph species. He was started on vancomycin and further identification was to Staph aureus yesterday. Patient states that he is not feeling much better overall since admission however his son reports that he was not able to remember anything at the time ofpresentation. So his mental status is better however overall clinically he is not feeling much better. They did have a long conversation with Dr. Shady Obrien today with regards to his aortic stenosis and the overall plan with regards to his valve and bacteremia. Objective Data Objective Data Vital Signs: Vital Signs Temp Pulse Resp BP Pulse Ox O2 Del Method O2 Flow Rate 97.4 F L 81 19 H 103/64 95 Nasal Cannula 3 02/19/24 03:20 02/19/24 07:20 02/19/24 07:20 02/19/24 03:20 02/19/24 08:27 02/19/24 08:27 02/19/24 08:27 Oxygen Flow Rate (L/min) 3 Oxygen Delivery Method Nasal Cannula Weight: 113 kg Body Mass Index (BMI) 34.7 Intake & Output: Intake and Output for Last 24 Hours 02/17/24 02/18/24 02/19/24 23:59 23:59 23:59 Intake Total 2190 / 2190 2320 / 2570 2280 / 2280 Output Total 300 / 500 650 / 1050 950 / 950 Balance 1890 / 1690 1670 / 1520 1330 / 1330 Lab / Micro Data 02/19/24 04:05 02/19/24 04:05 Labs: Laboratory Results - last 24 hr 02/18/24 06:35: PT 22.4 H, INR 2.0 02/19/24 04:05: WBC 6.2, RBC 3.62 L, Hgb 10.3 L, Hct 32.5 L, MCV 89.8, MCH 28.5,MCHC 31.7 L, RDW Std Deviation 53.3 H, RDW Coeff of Medardo 16.1 H, Plt Count 132 L,MPV 10.9, Sodium 131 L, Potassium 3.6, Chloride 100, Carbon Dioxide 26.0, Anion Gap 5, BUN 24 H, Creatinine 0.62 L, Estim Creat Clear Calc 103.56, Est GFR (MDRD) Af Amer 164, Est GFR (MDRD) Non-Af 136, BUN/Creatinine Ratio 39.0 H, Glucose 95, Calcium 8.5 Micro: Microbiology 02/17/24 11:15 Blood Culture (Wb) - Left Wrist Blood Culture - Preliminary Staphylococcus aureus 02/17/24 10:55 Blood Culture (Wb) - Left Wrist Bacteria Detection (PCR) - Final Staphylococcus aureus 02/17/24 10:55 Blood Culture (Wb) - Left Wrist Blood Culture - Preliminary Meth. resistant Staph. aureus 02/17/24 13:50 Urine, Clean Catch Urine Culture - Final Proteus sp. 02/17/24 11:22 Mucosa - Nose Respiratory Panel (PCR) - Final Rhythm Strip Rhythm Strip: A-fib Rate: 107 Ectopy: PVC(s) Physical Exam Const alert, oriented x3, no apparent distress and well nourished; Negative for average body habitus or healthy appearing Constitutional Narrative: Obese, older, white male, sitting up in bed, currently appears comfortable and nontoxic, son is at the bedside, he does appear chronically ill and older than stated age HEENT head/scalp atraumatic and moist oral mucous membranes HEENT Narrative: Dentition is extremely poor with multiple missing teeth and significant gum recession Head and Scalp: normocephalic Eyes PERRL, EOMs intact bilaterally and conjunctivae normal Eyes Narrative: No scleral icterus Neck no lymphadenopathy and supple Neck Narrative: Trachea midline, no thyroid enlargement Resp normal respiratory effort, no retractions, no use of accessory muscles and No clear to auscultation bilaterally Resp Narrative: Crackles at bases bilaterally with normal aeration at the apices, no signs of respiratory distress Auscultation: crackles; Negative for rhonchi or wheezes Cardio regular rate, S1 normal heart sound, no rub, no gallops and no clicks; Negative for regular rhythm, S2 normal heart sound or no murmurs Cardio Narrative: Irregular irregular rhythm with good rate control, 3 out of 6 to 4 out of 6 systolic murmur with quiet S2, radiates to bilateral carotids GI normal to inspection, nondistended, normoactive bowel sounds, soft to palpation and non-tender Extremity Extremity Narrative: Lower extremities are wrapped in Kwaku bandages after wound dressing changes, patient with ongoing chronic edema but improved with wrinkling of the skin from previous hospitalization, no cyanosis or clubbing is noted Skin Skin Narrative: Bilateral lower extremity wounds noted and reviewed pictures done by wound care,skin is extremely dry on bilateral legs, erythema of flank area noted Neuro oriented x3, moves all extremities and no focal motor deficits Neuro Narrative: Significant generalized weakness noted but no focal deficits Speech: speech normal Psych Psych Narrative: affect is slightly flat however eye contact is good and patient is able to interact appropriately and asked good questions Assessment & Plan Assessment/Plan (1) Staphylococcus aureus bacteremia: (2) Syncope and collapse: (3) Aortic stenosis: PLAN: Plan Staph aureus bacteremia -Patient did not rate criteria for sepsis per Sep 1 or Sep 3 guidelines -Likely related to skin -Repeat blood cultures today -Patient had recent TTE--> likely needs YADI--> cardiology consultation pending -Continue vancomycin -ID consult is pending--> Dr. Currie was notified via text Syncope -Suspect related to overdiuresis with severe aortic stenosis -Patient was orthostatic on admission -Continue to hold diuresis -Patient was given 1-1/2 L of IV fluids -May need YADI with Staph aureus bacteremia -Consult cardiology Moderate to severe aortic stenosis -Cardiology consultation pending -YADI versus transfer to tertiary center -Likely contributed to syncopal event -Now in the setting of Staph aureus bacteremia Hypoxia -This is new -May be related to bacteremia -Etiology is not clear at this time -Check CTA of the chest -Patient is chronically anticoagulated however his INR was subtherapeutic at 1.8 and 1.9 on admission - Chest x-ray on presentation was unremarkable Persistent atrial fibrillation/RVR on presentation -Rate is now controlled -INR was 2.0 yesterday -Repeat INR in a.m. 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 INR CODE STATUS -Full code is verified on admission Charges/Coding Visit Charges Inpatient E&M: 69320 Subs Hosp L3 02/19/24 1417 <Electronically signed by Angela Welch DO> Cosigner Signature (if applicable): CC: ~ Signed [facility] Work Phone: 1(105) 651-153304-08-2024 Consult note Author Edvin Currie [facility] February 19, 2024 1:11pm Note Date/Time February 19, 2024 1:11 pm [facility] Medical Records Department [address] [place] [address] Consultation - Infectious Dx 02/19/24 1306 MR#: [id number] Acct: [id number] Name: ANDER MONTEIRO Rep #:[id number] : 1950 73 From: Edvin herring MD PCP: [facility] Status:ADM IN Location: [place] [address] Assessment & Plan Assessment/Plan (1) Staphylococcus aureus bacteremia: PLAN: MRSA bacteremia per pcr. Repeat bcx and TTE pending. YADI planned. Cont iv vanc. Having single R flank lesion would be unusual for shingles, plan was to stop acyclovir today regardless. Will follow, thank you (2) Syncope and collapse: (3) Aortic stenosis: QUALIFIERS: Cardiac valve disease etiology: nonrheumatic Qualified Code(s): I35.0 - Nonrheumatic aortic (valve) stenosis HPI Consult Data Date of Consult: 02/19/24 HPI Narrative Reason for Consultation: bacteremia HPI Narrative: ANDER MONTEIRO, is a 73 M with h/o pulm htn, COPD, aortic stenosis, presented 4/6 with syncope, fever, not feeling well. Had recent admit for diuresis, dx with shingles on R flank, started on acyclovir. Only had one lesion present, no prior h/o shingles, mild pain at the site, no symptoms prior to that rash forming. Has chronic BLE wounds, no new pain/redness/drainage. Came to ED, foundto have Bcx (+) MRSA per pcr, started on iv vanc, feeling better. Full ROS performed and neg except as noted above. [facility] Medical History (HFpEF) heart failure with preserved ejection fraction Anemia Aortic stenosis Chronic pain syndrome Compression fx, thoracic spine COPD (chronic obstructive pulmonary disease) Former smoker HLD (hyperlipidemia) Hypertension Longstanding persistent atrial fibrillation Obesity RAFAEL on CPAP Home Medications simvastatin 10 mg tablet 10 mg PO QHS cholesterol 09/06/22 [History Last Taken 02/16/24] terazosin 2 mg capsule 2 mg PO QHS prostate 09/06/22 [History Last Taken 02/16/24] warfarin 5 mg tablet 5 mg PO DAILY blood thinner 09/06/22 [History Last Taken 02/16/24] lidocaine 5 % topical patch 1 patch topical DAILY pain #15 ea 09/08/22 [Rx Last Taken Unknown] albuterol sulfate 90 mcg/actuation aerosol inhaler 1 puff inhalation Q4H PRN SOB02/08/24 [History Last Taken 02/16/24] tiotropium 2.5 mcg-olodaterol 2.5 mcg/actuation mist for inhalation (Stiolto Respimat) 1 puff inhalation BID breathing 02/08/24 [History Last Taken Unknown] acetaminophen 500 mg tablet 1,000 mg (2 x 500 mg) PO Q8 pain 30 days #180 tabs 02/16/24 [Rx Last Taken 02/16/24] acyclovir 800 mg tablet 800 mg PO 4X/DAY 5 days #20 tabs 02/16/24 [Rx Last Taken 02/16/24] furosemide 40 mg tablet 40 mg PO DAILY 30 days #30 tabs 02/16/24 [Rx Last Taken 02/16/24] oxycodone 5 mg tablet 5 mg PO Q6H PRN PRN Pain Score 4-10 7 days #28 tabs 02/16/24 [Rx Last Taken 02/16/24] potassium chloride 20 mEq tablet,extended release(part/cryst) 20 meq PO DAILY 30days #30 tabs 02/16/24 [Rx Last Taken 02/16/24] oxycodone 10 mg tablet 10 mg PO TID 02/17/24 [History Last Taken 02/16/24] Allergy/AdvReac Type Severity Reaction Status Date / Time pramoxine Allergy Rash Verified 02/07/24 17:06 Family History Mother Cancer Father CAD (coronary artery disease) Heart disease Hypertension Myocardial infarction Surgical History History of cardiac radiofrequency ablation (RFA) History of tonsillectomy and adenoidectomy Social History household members: family Smoking Status: Former smoker how long ago did patient quit smoking: Quit ~ 35 yrs prior. alcohol intake: never substance use type: does not use Physical Exam Const alert, oriented x3 and no apparent distress General Appearance: cooperative HEENT normocephalic and head/scalp atraumatic Eyes PERRL and EOMs intact bilaterally Neck supple and No nodes Resp normal air movement and clear to auscultation bilaterally Cardio Negative for regular rate or regular rhythm Heart Sounds: murmur GI soft to palpation, non-tender and non-distended Extremity General Extremity: edema Skin Skin Narrative: reviewed wound photos. No splinter hemorrhages on hands or feet Neuro CN's II-XII intact bilaterally Lab / Micro Data Attestation: I reviewed the patient's lab results. 02/19/24 04:05 02/19/24 04:05 Labs: Laboratory Results - last 24 hr 02/19/24 04:05: WBC 6.2, RBC 3.62 L, Hgb 10.3 L, Hct 32.5 L, MCV 89.8, MCH 28.5,MCHC 31.7 L, RDW Std Deviation 53.3 H, RDW Coeff of Medardo 16.1 H, Plt Count 132 L,MPV 10.9, Sodium 131 L, Potassium 3.6, Chloride 100, Carbon Dioxide 26.0, Anion Gap 5, BUN 24 H, Creatinine 0.62 L, Estim Creat Clear Calc 103.56, Est GFR (MDRD) Af Amer 164, Est GFR (MDRD) Non-Af 136, BUN/Creatinine Ratio 39.0 H, Glucose 95, Calcium 8.5 02/19/24 12:25: Vancomycin Trough 16.4 H Micro: Microbiology 02/17/24 11:15 Blood Culture (Wb) - Left Wrist Blood Culture - Preliminary Staphylococcus aureus 02/17/24 10:55 Blood Culture (Wb) - Left Wrist Bacteria Detection (PCR) - Final Staphylococcus aureus 02/17/24 10:55 Blood Culture (Wb) - Left Wrist Blood Culture - Preliminary Meth. resistant Staph. aureus 02/17/24 13:50 Urine, Clean Catch Urine Culture - Final Proteus sp. Rhythm Strip Rhythm Strip: A-fib Rate: 107 Ectopy: PVC(s) Imaging Radiology Impression Chest CTA 02/19/24 09:20 IMPRESSION: Increased markings at the lung bases with small bilateral pleural effusions left greater than right suggestive of atelectasis and/or early infiltrates. There is a 1.8 cm x 0.7 cm pleural-based nodule in the superior medial aspect of the left lower lobe. This may represent a focal area of infiltrate. Follow-up recommended. No evidence of pulmonary embolism. Electronically Signed: Anderson Vivas MD at 10:26 EDT Reading Location ID and State: [facility] / [place] , Service support , 02/19/24 1311 <Electronically signed by Edvin Currie MD> Cosigner Signature (if applicable): CC: Dr. Bharat Wilkins DO; Dr. Karen Sinha MD; Dr. Shady Obrien MD; Dr. Edvin Currie MD; [facility]~ Signed [facility] Work Phone: 1(814) 146-712904-08-2024 Consult note Author Shady Obrien [facility] February 19, 2024 10:12am Note Date/Time February 19, 2024 9:45 am [facility] Medical Records Department [address] [place] [address] Consultation - Cardiology 02/19/24 0941 MR#: [id number] Acct: [id number] Name: ANDER MONTEIRO Rep #:[id number] : 1950 73 From: Shady Obrien MD PCP: [facility] Status:ADM IN Location: [facility] [id number]- [id number] Assessment & Plan Assessment/Plan (1) Staphylococcus aureus bacteremia: PLAN: The patient is growing MRSA out of his blood on at least 1 blood culture. This is being treated with vancomycin and ceftriaxone per the primary service. (2) Syncope and collapse: PLAN: The patient had an episode of syncope in his home environment with ambulation. He had recently been diuresed 42 pounds. His blood pressure by report has been borderline in his home environment. However he does have critical aortic stenosis. (3) Aortic stenosis: QUALIFIERS: Cardiac valve disease etiology: nonrheumatic Qualified Code(s): I35.0 - Nonrheumatic aortic (valve) stenosis PLAN: Last echocardiogram showed an peak gradient above 80 and a mean gradient of 46. LV function is normal. There is mild mitral regurgitation. Given the patient's MRSA in the bloodstream a repeat echocardiogram is indicated. Will perform a transthoracic echo today and schedule a transesophageal echo for 48 hours from now. I did discuss the situation with the structural heart team at [facility]. We will reevaluate the patient's situation once the YADI results are available. If the patient does not have active endocarditis by YADI the patient could be considered for aortic balloon valvuloplasty as a temporizing measure to bridge him to TAVR. If the patient has endocarditis by transesophageal echo criteria then surgical evaluation would be indicated. Prior to elective or semielective valve replacement the patient would need his dental situation addressed and the nonhealing foot ulcer addressed. (4) Longstanding persistent atrial fibrillation: PLAN: The patient has been in atrial fibrillation long-term per the report. He is on oral Coumadin therapy. He does have obstructive sleep apnea treated with BiPAP. (5) Chronic anticoagulation: PLAN: Continue his Coumadin with a target INR of 2?3. PLAN: Plan 1. Transthoracic echocardiogram. 2. Will schedule transesophageal echo for 02/20/2024 3. Continue IV antibiotic therapy. The patient will need to be proven to be sterile prior to replacement of his aortic valve. 4. Obtain Wound Center recommendations for his nonhealing ulcer. 5. Would need to start to make arrangements for evaluation of his dental situation and appropriate treatment as indicated to clear him for valve replacement. HPI Consult Data Date of Consult: 02/19/24 HPI Narrative HPI Narrative: ANDER MONTEIRO, is a 73 M who presents with a history of syncope in his home environment on Monday morning. He was walking from the bedroom into the kitchen to get a drink of water and called out to his and fell to the floor. Apparently he fell face down but there was no trauma to his face he did have some trauma to his left forearm. The patient was recently discharged from the hospital where he was diuresed 42 pounds over several days. By his report this is the first time he is ever had volume overload. The patient is now growing Staph aureus in his blood. He is on IV antibiotic therapy with the primary service. The patient also has a history of obstructive sleep apnea and he blames his port intention on his BiPAP machine causing a dry mouth but it appears every tooth in his mouth is infected or did it least extremely poor fci. The question that came up was should the patient be evaluated for transesophageal echocardiography. [facility] Medical History (HFpEF) heart failure with preserved ejection fraction Anemia Aortic stenosis Chronic pain syndrome Compression fx, thoracic spine COPD (chronic obstructive pulmonary disease) Former smoker HLD (hyperlipidemia) Hypertension Longstanding persistent atrial fibrillation Obesity RAFAEL on CPAP Home Medications simvastatin 10 mg tablet 10 mg PO QHS cholesterol 09/06/22 [History Last Taken 02/16/24] terazosin 2 mg capsule 2 mg PO QHS prostate 09/06/22 [History Last Taken 02/16/24] warfarin 5 mg tablet 5 mg PO DAILY blood thinner 09/06/22 [History Last Taken 02/16/24] lidocaine 5 % topical patch 1 patch topical DAILY pain #15 ea 09/08/22 [Rx Last Taken Unknown] albuterol sulfate 90 mcg/actuation aerosol inhaler 1 puff inhalation Q4H PRN SOB02/08/24 [History Last Taken 02/16/24] tiotropium 2.5 mcg-olodaterol 2.5 mcg/actuation mist for inhalation (Stiolto Respimat) 1 puff inhalation BID breathing 02/08/24 [History Last Taken Unknown] acetaminophen 500 mg tablet 1,000 mg (2 x 500 mg) PO Q8 pain 30 days #180 tabs 02/16/24 [Rx Last Taken 02/16/24] acyclovir 800 mg tablet 800 mg PO 4X/DAY 5 days #20 tabs 02/16/24 [Rx Last Taken 02/16/24] furosemide 40 mg tablet 40 mg PO DAILY 30 days #30 tabs 02/16/24 [Rx Last Taken 02/16/24] oxycodone 5 mg tablet 5 mg PO Q6H PRN PRN Pain Score 4-10 7 days #28 tabs 02/16/24 [Rx Last Taken 02/16/24] potassium chloride 20 mEq tablet,extended release(part/cryst) 20 meq PO DAILY 30days #30 tabs 02/16/24 [Rx Last Taken 02/16/24] oxycodone 10 mg tablet 10 mg PO TID 02/17/24 [History Last Taken 02/16/24] Allergy/AdvReac Type Severity Reaction Status Date / Time pramoxine Allergy Rash Verified 02/07/24 17:06 Family History Mother Cancer Father CAD (coronary artery disease) Heart disease Hypertension Myocardial infarction Surgical History History of cardiac radiofrequency ablation (RFA) History of tonsillectomy and adenoidectomy Social History household members: family Smoking Status: Former smoker how long ago did patient quit smoking: Quit ~ 35 yrs prior. alcohol intake: never substance use type: does not use ROS Constitutional Constitutional: Reports as per HPI Eyes Eyes: Reports systems reviewed and no addt'l complaints, except as documented ENT HEENT: Reports systems reviewed and no addt'l complaints, except as documented Cardiovascular Cardiovascular: Reports as per HPI Respiratory/Chest Respiratory/Chest: Reports systems reviewed and no addt'l complaints, except as documented Gastrointestinal Gastrointestinal: Reports systems reviewed and no addt'l complaints, except as documented Genitourinary Genitourinary: Reports systems reviewed and no addt'l complaints, except as documented Musculoskeletal Musculoskeletal: Reports systems reviewed and no addt'l complaints, except as documented Integumentary Integumentary: Reports systems reviewed and no addt'l complaints, except as documented Neurologic Neurologic: Reports systems reviewed and no addt'l complaints, except as documented Psychiatric Psychiatric: Reports systems reviewed and no addt'l complaints, except as documented Endocrine Endocrinology: Reports systems reviewed and no addt'l complaints, except as documented Hematologic/Lymphatic Hematologic/Lymphatic: Reports systems reviewed and no addt'l complaints, exceptas documented Allergic/Immunologic Allergic/Immunologic: Reports systems reviewed and no addt'l complaints, except as documented Physical Exam Const alert and oriented x3 HEENT normocephalic Eyes EOMs intact bilaterally Chest inspection of chest normal Resp normal respiratory effort Auscultation: crackles bilateral base Cardio S1 normal heart sound Rate: tachycardic Rhythm: abnormal rhythm irregularly irregular Heart Sounds: murmur systolic III/ harsh holo left sternal border, right sternal border, sternal notch, neck and axilla to the neck and to the left axilla and abnormal sounds diminished A2; Negative for click or gallop Extremity Extremity Narrative: Diffuse skin redundancy consistent with recent diuresis. Also noted dry ulcer on the left great toe. General Extremity: edema bilateral lower extremity Details: trace Skin Wound Narrative: Dry hyperpigmented deep dry ulcer on the left great toe Neuro Neuro Narrative: Alert and oriented x 3 Psych mental status grossly normal Risk Stratification Risk Stratification Applicable: No Charges/Coding Visit Charges Inpatient E&M: 20584 Init Hosp L3 Objective Data Vital Signs: Vital Signs Temp Pulse Resp BP Pulse Ox O2 Del Method O2 Flow Rate 97.4 F L 81 19 H 103/64 95 Nasal Cannula 3 02/19/24 03:20 02/19/24 07:20 02/19/24 07:20 02/19/24 03:20 02/19/24 08:27 02/19/24 08:27 02/19/24 08:27 Oxygen Flow Rate (L/min) 3 Oxygen Delivery Method Nasal Cannula Weight: 249 lb 1.957 oz Body Mass Index (BMI) 34.7 Intake & Output: Intake and Output for Last 24 Hours 02/17/24 02/18/24 02/19/24 23:59 23:59 23:59 Intake Total 2190 / 2190 2320 / 2570 2280 / 2280 Output Total 300 / 500 650 / 1050 950 / 950 Balance 1890 / 1690 1670 / 1520 1330 / 1330 Lab / Micro Data Attestation: I reviewed the patient's lab results. 02/19/24 04:05 02/19/24 04:05 Labs: Laboratory Results - last 24 hr 02/19/24 04:05: WBC 6.2, RBC 3.62 L, Hgb 10.3 L, Hct 32.5 L, MCV 89.8, MCH 28.5,MCHC 31.7 L, RDW Std Deviation 53.3 H, RDW Coeff of Medardo 16.1 H, Plt Count 132 L,MPV 10.9, Sodium 131 L, Potassium 3.6, Chloride 100, Carbon Dioxide 26.0, Anion Gap 5, BUN 24 H, Creatinine 0.62 L, Estim Creat Clear Calc 103.56, Est GFR (MDRD) Af Amer 164, Est GFR (MDRD) Non-Af 136, BUN/Creatinine Ratio 39.0 H, Glucose 95, Calcium 8.5 Micro: Microbiology 02/17/24 11:15 Blood Culture (Wb) - Left Wrist Blood Culture - Preliminary Staphylococcus aureus 02/17/24 10:55 Blood Culture (Wb) - Left Wrist Bacteria Detection (PCR) - Final Staphylococcus aureus 02/17/24 10:55 Blood Culture (Wb) - Left Wrist Blood Culture - Preliminary Meth. resistant Staph. aureus 02/17/24 13:50 Urine, Clean Catch Urine Culture - Final Proteus sp. Rhythm Strip Rhythm Strip: A-fib Rate: 107 Ectopy: PVC(s) Cardiology Labs/Tests 02/19/24 04:05: WBC 6.2, RBC 3.62 L, Hgb 10.3 L, Hct 32.5 L, MCV 89.8, MCH 28.5,MCHC 31.7 L, Plt Count 132 L, MPV 10.9, Sodium 131 L, Potassium 3.6, Chloride 100, Carbon Dioxide 26.0, Anion Gap 5, BUN 24 H, Creatinine 0.62 L, Est GFR (MDRD) Af Amer 164, Est GFR (MDRD) Non-Af 136, BUN/Creatinine Ratio 39.0 H, Glucose 95, Calcium 8.5 Rhythm: EKG: ECHO: Stress Test: Cardiac Cath: PCI: CT Surgery: Holter monitor: EPS: PPM: CXR: Chest CT Scan: 02/19/24 1012 <Electronically signed by Shady Obrien MD> Cosigner Signature (if applicable): CC: Dr. Bharat Wilkins DO; Dr. Karen Sinha MD; Dr. Shady Obrien MD; Dr. Edvin Currie MD; [facility]~ Signed [facility] Work Phone: [phone]) 881-885504-07-2024 Progress note Author Bharat Wilkins [facility] February 18, 2024 2:27pm Note Date/Time February 18, 2024 11:0 0am [facility] Medical Records Department [address] [place] [address] Progress Note - Hospitalist 02/18/24 1100 MR#: [id number] Acct: [id number] Name: ANDER MONTEIRO Rep #:[id number] : 1950 73 From: Bharat narvaez DO PCP: [facility] Status:ADM IN Location: [facility] [id number]- [id number] Reason for Visit Reason for Visit: Diagnoses Syncope and collapse (02/17/24) Subjective Subjective Was notified by nursing staff early this morning that patient's blood cultures from 02/16 are 2 out of 2 preliminarily positive for Staph aureus. No other acuteevents overnight. Patient seen at bedside this morning. Patient was sitting upin bed but continues to appear fairly fatigued today, similar to yesterday and more fatigued than on his recent admission. He states that he was able to eat asmall breakfast but generally does not feel very hungry. He denies having any fevers or chills. He denies any acute pain or discomfort. No other acute concerns. Objective Data Objective Data Vital Signs: Vital Signs Temp Pulse Resp BP Pulse Ox O2 Del Method O2 Flow Rate 96.7 F L 80 16 87/58 L 97 Nasal Cannula 3 02/18/24 09:13 02/18/24 09:13 02/18/24 09:13 02/18/24 09:13 02/18/24 09:13 02/18/24 09:13 02/18/24 10:14 Oxygen Flow Rate (L/min) 3 Oxygen Delivery Method Nasal Cannula Weight: 86.1 kg Body Mass Index (BMI) 26.4 Intake & Output: Intake and Output for Last 24 Hours 02/16/24 02/17/24 02/18/24 23:59 23:59 23:59 Intake Total 2190 / 2190 540 / 540 Output Total 300 / 500 200 / 200 Balance 1890 / 1690 340 / 340 Lab / Micro Data 02/18/24 06:35 02/18/24 06:35 Labs: Laboratory Results - last 24 hr 02/17/24 13:50: Urine Color Yellow, Urine Clarity Sl. Cloudy, Urine pH 7.0, Ur Specific Broughton 1.010, Urine Protein 30 H, Urine Glucose (UA) Normal, Urine Ketones 5 H, Urine Occult Blood 250 H, Urine Nitrite Negative, Urine Bilirubin 1H, Urine Urobilinogen 4 H, Ur Leukocyte Esterase 500 H, Urine RBC 10-25 SEEN, Urine WBC 50-100 SEEN, Ur Squamous Epith Cells 0-5 SEEN, Urine Bacteria 0 SEEN, Urine Mucus 0 SEEN 02/18/24 06:35: WBC 8.8, RBC 3.68 L, Hgb 10.4 L, Hct 33.0 L, MCV 89.7, MCH 28.3,MCHC 31.5 L, RDW Std Deviation 54.4 H, RDW Coeff of Medardo 16.4 H, Plt Count 141 L,MPV 10.6, Immature Gran % (Auto) 0.300, Neut % (Auto) 82.4 H, Lymph % (Auto) 5.9L, [place] % (Auto) 10.3 H, Eos % (Auto) 0.1, Baso % (Auto) 1.0, Absolute Neuts (auto) 7.2, Absolute Lymphs (auto) 0.52 L, Nucleated RBC % 0, PT 22.4 H, INR 2.0, Sodium 134 L, Potassium 3.2 L, Chloride 100, Carbon Dioxide 28.0, Anion Gap6, BUN 32 H, Creatinine 0.74, Estim Creat Clear Calc 86.28, Est GFR (MDRD) Af Amer 132, Est GFR (MDRD) Non-Af 109, BUN/Creatinine Ratio 43.0 H, Glucose 103, Calcium 8.2 L, Total Bilirubin 1.90 H, AST 29, ALT 13 L, Alkaline Phosphatase 71, Total Protein 6.9, Albumin 2.3 L, Globulin 4.6 H, Albumin/Globulin Ratio 0.5L Micro: Microbiology 02/17/24 11:15 Blood Culture (Wb) - Left Wrist Blood Culture - Preliminary Staphylococcus aureus 02/17/24 10:55 Blood Culture (Wb) - Left Wrist Bacteria Detection (PCR) - Final Staphylococcus aureus 02/17/24 10:55 Blood Culture (Wb) - Left Wrist Blood Culture - Preliminary 02/17/24 11:22 Mucosa - Nose Respiratory Panel (PCR) - Final Rhythm Strip Rhythm Strip: A-fib Rate: 107 Ectopy: PVC(s) Physical Exam Const alert, oriented x3 and no apparent distress Constitutional Narrative: Elderly male, morbidly obese, laying comfortably in bed, moderately fatigued appearing, otherwise conversing normally, in no acute distress. General Appearance: cooperative and comfortable HEENT normocephalic, head/scalp atraumatic, hearing grossly normal bilaterally and nasal mucous membranes and turbinates normal Mouth: dry mucous membranes Eyes PERRL, EOMs intact bilaterally and conjunctivae normal Neck full ROM Chest inspection of chest normal Resp normal respiratory effort, normal air movement, no use of accessory muscles and clear to auscultation bilaterally Resp Narrative: Breathing comfortably on 4 L nasal cannula with oxygen saturations in the high 90s. Mildly decreased breath sounds bilaterally throughout, no wheezing or crackles noted. Cardio regular rate, regular rhythm, no murmurs and peripheral pulses 2+ throughout GI normal to inspection, nondistended, normoactive bowel sounds, soft to palpation,non-tender and non-distended Narrative: Scrotal edema noted but much improved from previous admission. No suprapubic tenderness noted. Back/Spine normal ROM Extremity full ROM Extremity Narrative: Bilateral lower extremities wrapped with Kwaku wrap from knee down to toes. Skin Skin Narrative: Right lateral low back lesions appear moderately improved from previous admission. Neuro moves all extremities and no focal motor deficits Speech: speech normal Psych mental status grossly normal Assessment & Plan Assessment/Plan (1) Syncope and collapse: (2) Staphylococcus aureus bacteremia: (3) Sepsis: PLAN: Plan Patient is a 73-year-old male who presented to [facility] ED on 02/17/2024 after a syncopal episode at home. 1. Syncopal episode Patient recently hospitalized from 02/06 to 02/15 for HFpEF exacerbation due to nonadherence to home diuretics. Diuresed heavily during that admission with approximate 15 to 20 L of fluid removed. Patient's creatinine was stable at baseline discharge. Had syncopal episode at home on evening of 02/15. Was presumed that this was secondary to orthostatic hypotension from overdiuresis, as his orthostatic vitals positive in ED on 02/16 and he appeared dry on exam. Creatinine also mildly elevated on 02/16 compared to 02/15. Given 1 L normal salineon 02/16 with good improvement in creatinine but blood pressures remained about the same. ? Blood cultures positive for staph on 02/17, now suspect hypotension leading to syncopal episode was multifactorial in setting of overdiuresis and sepsis as noted below. Treat sepsis as noted below. 2. Sepsis without shock secondary to staph aureus bacteremia Blood cultures from 02/16 came back +2/2 for staph aureus on 02/17, sensitivites pending. Unclear source of infection. Chest x-ray on 02/16 with no concern for pneumonia. UA noninfectious. Does have skin lesions noted on legs as well as right-sided back but these appear stable from previous, seem less likely to be source of infection. Notably patient had TTE on 02/07 during prior admission that showed new moderate to severe aortic stenosis. Had low-grade fevers on nd 02/16 with highest temp of 100.8. Has also had borderline low to low blood pressure since admission. ? Infectious disease consulted. Started on IV vancomycin on 02/17. Follow-up blood culture sensitivities. Have concern for possible heart involvement given changes on recent echo, will defer to ID on need for possible YADI. Repeat bloodcultures ordered for 02/18. Will give another 1.5 L of IV fluids on 02/17 to complete a full sepsis bolus. 3. Recent HFpEF exacerbation, moderate pulmonary hypertension ? See discharge summary from 02/15 for further details. Holding home Lasix for now as noted above. 4. BPH with obstructive symptoms ? Had Lima in place for majority of previous hospitalization largely for convenience given patient's debility and heavy diuresis. Lima was removed on 02/14 and patient passed voiding trial without issue. Per nursing staff, has beenvoiding without issue since admission on 02/16. Continue home terazosin. 5. Right lower back lesions concerning for shingles ? Continue treatment with acyclovir 4 times daily to complete 7-day course. 6. Debility ? PT/OT/case management following. Discharged home with home health care on 02/15, anticipate patient will again be okay for discharge home with home health care when medically ready. 7. Venous stasis ulcers ? Noted on previous hospitalization. Noninfectious appearing throughout hospitalization. Wound care followed at that time, wound care again to follow. Chronic medical conditions: ? Morbid obesity: BMI 33 on admit. Complicates hospital course, care and prognosis. ? A-fib: Rate controlled. INR therapeutic on admission. Continue home Lopressor and warfarin. ? History of vertebral fractures with chronic back pain: Follows with Dr. Meredith pain management. On pain control at home with oxycodone and acetaminophen,continue these while inpatient. Lidocaine patch ordered as well. DVT prophylaxis: Warfarin CODE STATUS: Full code, verified Expected disposition: TBD Total clinical time spent by myself addressing the patient's medical issues, reviewing all the data, and collaborating with patient's care team: 35 minutes. Charges/Coding Visit Charges Inpatient E&M: 79150 Subs Hosp L2 04/07/24 1427 <Electronically signed by Bharat Wilkins DO> Cosigner Signature (if applicable): CC: ~ Signed [facility] Work Phone: 1(450) 152-239404-07-2024 Consult note Author Rinku Horowitz [facility] February 18, 2024 12:46am Note Date/Time February 18, 2024 12:4 7am [facility] Medical Records Department [address] [place] [address] Pharmacokinetic/Renal -Consult 02/18/24 0046 MR#: [id number] Acct: [id number] Name: ANDER MONTEIRO Rep #:[id number] : 1950 73 From: Rinku Rodriguez od PCP: [facility] Status:ADM IN Y Location: [place] [address] Consult Antibiotic Management Pharmacy has been consulted to manage selected antibiotic: Vancomycin Type of Intervention Type of Consult: New start Labs Labs: Sodium 134 mmol/L (136-145) L 02/17/24 03:00 Potassium 4.7 mmol/L (3.5-5.1) 02/17/24 03:00 Chloride 98 mmol/L (98-107) 02/17/24 03:00 Carbon Dioxide 30.0 mmol/L (21.0-32.0) 02/17/24 03:00 Anion Gap 6 (5-15) 02/17/24 03:00 BUN 27 mg/dL (7-18) H 02/17/24 03:00 Creatinine 1.18 mg/dL (0.70-1.30) 02/17/24 03:00 Est GFR (MDRD) Af Amer 78 mL/min (>60) 02/17/24 03:00 Est GFR (MDRD) Non-Af 64 mL/min (>60) 02/17/24 03:00 BUN/Creatinine Ratio 22.9 RATIO (10-20) H 02/17/24 03:00 Glucose 132 mg/dL (74-106) H 02/17/24 03:00 Microbiology Microbiology: Microbiology 02/17/24 10:55 Blood Culture (Wb) - Left Wrist Blood Culture - Preliminary 02/17/24 11:15 Blood Culture (Wb) - Left Wrist Blood Culture - Preliminary 02/17/24 11:22 Mucosa - Nose Respiratory Panel (PCR) - Final Dosing Weight Weight used for dosin.5 kg Estimated Creatinine Clearance Estimated Creatinine Clearance: 71.14 Goal Trough Goal Trough: 15-20 mcg/mL Pharmacy Plan for Drug Dosing Pharmacy Plan for Drug Dosing: Pharmacy Service will continue to monitor and adjust dosing as required. 2GM LOADING DOSE AND 1500 Q12H TROUGH PRIOR TO 4TH DOSE Follow-Up Labs Follow-Up Labs: Trough: Vancomycin Date/Time Labs Ordered Labs to be done on [date and time ordered]: 02/18 @ 1230 02/18/24 0046 <Electronically signed by Rinku coker> Date _ Rinku Horowizt Cosigner Signature (if applicable): Date CC: ~ Signed [facility] Work Phone: 1(138) 191-741004-07-2024 Progress note Author [facility] February 17, 2024 11:59pm Note Date/Time February 18, 2024 12:0 0am [facility] Medical Records Department [address] [place] [address] Progress Note - Hospitalist 02/17/242357 MR#: [id number] Acct: [id number] Name: ANDER MONTEIRO Rep #:[id number] : 1950 73 From: Karen Sinha MD PCP: [facility] Status:ADM IN Location: [place] [address] Hospitalist Note Lab noting blood cultures, 2/2 with gram positive cocci. Not in report but lab was contacted and noted on the cultures they are in clusters. Currently on empiric rocephin but to be cautious will add IV vanc until resulted. 02/17/242358 <Electronically signed by Karen Sinha MD> Cosigner Signature (if applicable): CC: ~ Signed [facility] Work Phone: 1(805) 917-815504-06-2024 Progress note Author Bharat Wilkins [facility] February 17, 2024 1:52pm Note Date/Time February 17, 2024 11:3 3am [facility] Medical Records Department [address] [place] [address] Progress Note - Hospitalist 02/17/24 1133 MR#: [id number] Acct: [id number] Name: ANDER MONTEIRO Rep #:[id number] : 1950 73 From: Bharat narvaez DO PCP: [facility] Status:ADM IN Location: [facility] [id number] Reason for Visit Reason for Visit: Diagnoses Syncope and collapse (02/17/24) Subjective Subjective Patient was recently hospitalized for over a week for a heart failure exacerbation. Was heavily diuresed during that admission with significant improvement. Was discharged home on afternoon of 02/15. Unfortunately had an episode of passing out at home on the evening of 02/15 and came back to the ED. He was found to be dry appearing on exam and orthostatic vitals were positive. Was suspected that patient was overdiuresed, so IV fluids were started for him. I saw patient at the bedside later this morning. Notably, I followed with the patient for the entirety of his previous hospitalization. Patient appeared slightly more fatigued this morning than at the end of his recent hospitalization. He was otherwise laying comfortably in bed, answering questionappropriately and in no acute distress. He denied any fevers or chills. He didreport ongoing back pain, similar to on this recent admission. No other acute concerns this morning. Objective Data Objective Data Vital Signs: Vital Signs Temp Pulse Resp BP Pulse Ox O2 Del Method O2 Flow Rate 100.9 F H 86 18 122/78 H 98 Nasal Cannula 4 02/17/24 09:05 02/17/24 09:05 02/17/24 09:05 02/17/24 09:05 02/17/24 09:05 02/17/24 09:05 02/17/24 08:52 Oxygen Flow Rate (L/min) 4 Oxygen Delivery Method Nasal Cannula Weight: 108.5 kg Body Mass Index (BMI) 33.3 Intake & Output: Intake and Output for Last 24 Hours 02/15/24 02/16/24 02/17/24 23:59 23:59 23:59 Intake Total 750 / 750 Balance 750 / 750 Lab / Micro Data 02/17/24 03:55 02/17/24 03:00 Labs: Laboratory Results - last 24 hr 02/17/24 03:00: WBC Cancelled, Corrected WBC Cancelled, RBC Cancelled, Hgb Cancelled, Hct Cancelled, MCV Cancelled, MCH Cancelled, MCHC Cancelled, RDW Std Deviation Cancelled, RDW Coeff of Medardo Cancelled, Plt Count Cancelled, MPV Cancelled, Immature Gran % (Auto) Cancelled, Neut % (Auto) Cancelled, Lymph % (Auto) Cancelled, [place] % (Auto) Cancelled, Eos % (Auto) Cancelled, Baso % (Auto)Cancelled, Absolute Neuts (auto) Cancelled, Absolute Lymphs (auto) Cancelled, Total Counted Cancelled, Neutrophils % (Manual) Cancelled, Band Neutrophils % Cancelled, Lymphocytes % (Manual) Cancelled, Monocytes % (Manual) Cancelled, Eosinophils % (Manual) Cancelled, Basophils % (Manual) Cancelled, Metamyelocytes% Cancelled, Myelocytes % Cancelled, Promyelocytes % Cancelled, Blast Cells % Cancelled, Plasma Cell % (Manual) Cancelled, Other Cells % Cancelled, Nucleated RBC % Cancelled, Nucleated RBCs/100 WBC Cancelled, Differential Comment Cancelled, Diff Path Review Cancelled, Hypersegmented Neuts Cancelled, Atypical Lymphocytes Cancelled, Reactive Lymphocytes Cancelled, Smudge Cells Cancelled, Toxic Granulation Cancelled, Toxic Vacuolation Cancelled, Dohle Bodies Cancelled, Yogesh Rods Cancelled, Platelet Estimate Cancelled, Plt Morphology Comment Cancelled, RBC Morphology Cancelled 02/17/24 03:00: RBC Morphology Cancelled, Polychromasia Cancelled, HypochromasiaCancelled, Basophilic Stippling Cancelled, Anisocytosis Cancelled, Microcytosis Cancelled, Macrocytosis Cancelled, Spherocytes Cancelled, Sickle Cells Cancelled, Target Cells Cancelled, Tear Drop Cells Cancelled, Ovalocytes Cancelled, Stomatocytes Cancelled, [place] Bodies Cancelled, Nima Cells Cancelled, Bite Cells Cancelled, Crenated Cell Cancelled, Acanthocytes (Spur) Cancelled, Rouleaux Cancelled, Schistocytes Cancelled, PT 20.5 H, INR 1.8, Sodium 134 L, Potassium 4.7, Chloride 98, Carbon Dioxide 30.0, Anion Gap 6, BUN 27 H, Creatinine 1.18, Estim Creat Clear Calc 71.14, Est GFR (MDRD) Af Amer 78, Est GFR (MDRD) Non-Af 64, BUN/Creatinine Ratio 22.9 H, Glucose 132 H, Calcium 9.1, Phosphorus 2.3 L, Magnesium 2.2, Troponin I High Sens 40 02/17/24 03:55: WBC 9.2, RBC 4.11 L, Hgb 11.6 L, Hct 36.8 L, MCV 89.5, MCH 28.2,MCHC 31.5 L, RDW Std Deviation 53.1 H, RDW Coeff of Medrado 16.3 H, Plt Count 173, MPV 10.8, Immature Gran % (Auto) 0.500, Neut % (Auto) 81.0 H, Lymph % (Auto) 6.9L, [place] % (Auto) 9.2, Eos % (Auto) 1.3, Baso % (Auto) 1.1 H, Absolute Neuts (auto) 7.4, Absolute Lymphs (auto) 0.63 L, Nucleated RBC % 0 02/17/24 06:00: Troponin I High Sens 79 H 02/17/24 08:40: Troponin I High Sens 105 H Radiography Diagnostic Testing: Radiology Impression Chest X-Ray 02/17/24 03:20 IMPRESSION: Markedly improved pulmonary venous congestion. Electronically Signed: Landon Qureshi MD at 8:07 EDT , Rhythm Strip Rhythm Strip: A-fib Rate: 107 Ectopy: PVC(s) Physical Exam Const alert, oriented x3 and no apparent distress Constitutional Narrative: Elderly male, morbidly obese, laying comfortably in bed, moderately fatigued appearing, otherwise conversing normally, in no acute distress. General Appearance: cooperative and comfortable HEENT normocephalic, head/scalp atraumatic, hearing grossly normal bilaterally and nasal mucous membranes and turbinates normal Mouth: dry mucous membranes Eyes PERRL, EOMs intact bilaterally and conjunctivae normal Neck full ROM Chest inspection of chest normal Resp normal respiratory effort, normal air movement, no use of accessory muscles and clear to auscultation bilaterally Resp Narrative: Breathing comfortably on 4 L nasal cannula with oxygen saturations in the high 90s. Mildly decreased breath sounds bilaterally throughout, no wheezing or crackles noted. Cardio regular rate, regular rhythm, no murmurs and peripheral pulses 2+ throughout GI normal to inspection, nondistended, normoactive bowel sounds, soft to palpation,non-tender and non-distended Narrative: Scrotal edema noted but much improved from previous admission. No suprapubic tenderness noted. Back/Spine normal ROM Extremity full ROM Extremity Narrative: Bilateral lower extremities wrapped with Kwaku wrap from knee down to toes. Patient had ulcers on bilateral gregorio and left lower leg noted on previous admission, were noninfectious appearing and remained stable during that hospitalization. Will ensure that these ulcers are evaluated by nursing and/or wound care. Skin Skin Narrative: Right lateral low back lesions appear moderately improved from previous admission. Neuro moves all extremities and no focal motor deficits Speech: speech normal Psych mental status grossly normal Assessment & Plan Assessment/Plan (1) Syncope and collapse: PLAN: Plan Patient is a 73-year-old male who presented to [facility] ED on 02/17/2024 after a syncopal episode at home. 1. Syncopal episode presumed secondary to orthostatic hypotension from overdiuresis, mild creatinine elevation Patient recently hospitalized from 02/06 to 02/15 for HFpEF exacerbation due to nonadherence to home diuretics. Diuresed heavily during that admission with approximate 15 to 20 L of fluid removed. Patient's creatinine was stable at baseline discharge. Had syncopal episode at home on evening of 02/15. Orthostatic vitals positive in ED on 02/16, appeared dry on exam. Creatinine mildly elevated on 02/16 compared to 02/15. ? Will give a total of 1 L normal saline on 02/16. Home Lasix held. Will repeat orthostatic vitals on 02/17. Monitor daily BMP and urine output. 2. Recent HFpEF exacerbation, moderate pulmonary hypertension ? See discharge summary from 02/15 for further details. Holding home Lasix for now as noted above. 3. Low-grade fevers of unclear etiology ? Noted on 02/16 to have low-grade fevers up to 100.2 on several checks. Unclear etiology. WBC count 9 on day of admit, mildly elevated from previous but was likely hemoconcentrated. Chest x-ray on 02/16 with no concern for pneumonia. On warfarin, minimal concern for DVT/PE despite minimal activity recently. Highestconcern is for possible UTI. Will empirically treat with IV ceftriaxone for now. UA ordered. Trend daily CBC. 4. BPH with obstructive symptoms ? Had Lima in place for majority of previous hospitalization largely for convenience given patient's debility and heavy diuresis. Lima was removed on 02/14 and patient passed voiding trial without issue. Per nursing staff, has beenvoiding without issue since admission on 02/16. Continue home terazosin. 5. Right lower back lesions concerning for shingles ? Continue treatment with acyclovir 4 times daily to complete 7-day course. 6. Debility ? PT/OT/case management following. Discharged home with home health care on 02/15, anticipate patient will again be okay for discharge home with home health carewhen medically ready. 7. Venous stasis ulcers ? Noted on previous hospitalization. Noninfectious appearing throughout hospitalization. Wound care followed at that time, wound care again to follow. Chronic medical conditions: ? Morbid obesity: BMI 33 on admit. Complicates hospital course, care and prognosis. ? A-fib: Rate controlled. INR therapeutic on admission. Continue home Lopressor and warfarin. ? History of vertebral fractures with chronic back pain: Follows with Dr. Meredith pain management. On pain control at home with oxycodone and acetaminophen,continue these while inpatient. Lidocaine patch ordered as well. DVT prophylaxis: Warfarin CODE STATUS: Full code, verified Expected disposition: TBD Total clinical time spent by myself addressing the patient's medical issues, reviewing all the data, and collaborating with patient's care team: 35 minutes. Charges/Coding Visit Charges Inpatient E&M: 18351 Subs Hosp L2 02/17/24 1352 <Electronically signed by Bharat Wilkins DO> Cosigner Signature (if applicable): CC: ~ Signed [facility] Work Phone: 1(134) 932-342504-06-2024 Discharge summary Author Noman Cloud [facility] February 17, 2024 7:36am Note Date/Time February 17, 2024 4:20 am [facility] Medical Records Department [address] [place] [address] Emergency Department Summary 02/17/24 MR#: [id number] Acct: [id number] Name: ANDER MONTEIRO Rep #:[id number] : 1950 73 From: Noman Cloud MD PCP: [facility] Status:ADM IN Location: [address] History of Present Illness Chief Complaint: Syncope Detail of Chief Complaint: Passed out at home. Informant: patient Onset/Context/Timing Onset: Today Context: Sudden Onset Current Severity: Mild Maximum Severity: Moderate Narrative Narrative: 73-year-old male had a syncopal episode tonight at home. Said he passed out woke up on the floor. Denies any head injury. Denies any neck pain. Recently patient was hospitalized due to congestive heart failure with significant lower extremity and scrotal edema. He was on a Lasix drip and states he lost 42 pounds. He was just discharged from the hospital yesterday. He lives at home with family. He said this incident occurred around 1 AM this morning. Prior similar symptoms: No Recent Illness/Hospitalization: Yes [facility] Medical History Afib Aortic stenosis Congestive heart failure (CHF) COPD (chronic obstructive pulmonary disease) Former smoker Hypertension Longstanding persistent atrial fibrillation Home Medications simvastatin 10 mg tablet 10 mg PO QHS cholesterol 09/06/22 [History Last Taken 02/16/24] terazosin 2 mg capsule 2 mg PO QHS prostate 09/06/22 [History Last Taken 02/16/24] warfarin 5 mg tablet 5 mg PO DAILY blood thinner 09/06/22 [History Last Taken 02/16/24] lidocaine 5 % topical patch 1 patch topical DAILY pain #15 ea 09/08/22 [Rx Last Taken Unknown] albuterol sulfate 90 mcg/actuation aerosol inhaler 1 puff inhalation Q4H PRN SOB02/08/24 [History Last Taken 02/16/24] tiotropium 2.5 mcg-olodaterol 2.5 mcg/actuation mist for inhalation (Stiolto Respimat) 1 puff inhalation BID breathing 02/08/24 [History Last Taken Unknown] acetaminophen 500 mg tablet 1,000 mg (2 x 500 mg) PO Q8 pain 30 days #180 tabs 02/16/24 [Rx Last Taken 02/16/24] acyclovir 800 mg tablet 800 mg PO 4X/DAY 5 days #20 tabs 02/16/24 [Rx Last Taken 02/16/24] furosemide 40 mg tablet 40 mg PO DAILY 30 days #30 tabs 02/16/24 [Rx Last Taken 02/16/24] oxycodone 5 mg tablet 5 mg PO Q6H PRN PRN Pain Score 4-10 7 days #28 tabs 02/16/24 [Rx Last Taken 02/16/24] potassium chloride 20 mEq tablet,extended release(part/cryst) 20 meq PO DAILY 30days #30 tabs 02/16/24 [Rx Last Taken 02/16/24] oxycodone 10 mg tablet 10 mg PO TID 02/17/24 [History Last Taken 02/16/24] Allergy/AdvReac Type Severity Reaction Status Date / Time pramoxine Allergy Rash Verified 02/07/24 17:06 Social History Smoking Status: Former smoker ROS ROS ED ROS Narrative Denies recent illness other than his hospitalization for congestive heart failure. Review of Systems ROS Unobtainable: Denies due to encephalopathy Constitutional Constitutional ED: Denies chills or fever(s) Eyes Eyes: Denies blurry vision ENT ENT ED: Denies ear pain Cardiovascular Cardiovascular: Denies chest pain Respiratory/Chest Respiratory/Chest: Denies cough or dyspnea Gastrointestinal Gastrointestinal: Denies abdominal pain, diarrhea, nausea or vomiting Genitourinary Genitourinary ED: Denies dysuria or hematuria Musculoskeletal Musculoskeletal: Denies arthralgias Integumentary Denies abscess Neurologic Neurologic: Denies headache(s) Psychiatric Psychiatric: Denies anxiety or depression Endocrine Endocrinology: Denies cold intolerance Hematologic/Lymphatic Hematologic/Lymphatic: Reports none Allergic/Immunologic Allergic/Immunologic ED: Denies mouth swelling, tongue swelling or urticaria EXAM Physical Exam Narrative Exam Narrative: 33-year-old male initial vital signs initial blood pressure 123/85 when I was inthe room his blood pressure was reading low at like 90/60. H EENT exam pupils round react to light. Dry mucous membranes. No signs of trauma to his face or scalp. No hematoma. C-spine and neck nontender. Lungs clear to auscultation. Heart A-fib rate about 107. No appreciable murmur. Irregularly irregular. Chest wall and ribs nontender. No crepitus or subcu air. Abdomen soft nontender. Pelvic girdle intact. Moving all 4 extremities. Wraps on both lower extremities. Trace edema. Neurologically is awake and alert. Answering questions and following commands. Const Vital Signs: 02/17/24 02:39 02/17/24 02:53 02/17/24 03:29 Temperature 97 F L Temperature Source Temporal Pulse Rate 118 H Respiratory Rate 33 H Respiratory Effort Short of Breath Respiratory Pattern Normal Blood Pressure 123/85 H Blood Pressure Mean 97 Pulse Ox 95 Oxygen Delivery Method Nasal Cannula Nasal Cannula Oxygen Flow Rate (L/min) 4 4 Positive well nourished and well developed; Negative for cachectic, contracturesor unkempt General Appearance ED: well developed and NAD; Negative for unkempt, cachectic, contractures, cyanotic, diaphoretic or pallor Nutritional Appearance: Negative for cachectic HEENT Reports dry mucous membranes; Denies moist mucous membranes Negative for trauma or tenderness Mouth ED: Yes dry mucous membranes Mouth: dry mucous membranes Eyes PERRL and EOMs intact bilaterally General Eye ED: Negative for pale conjunctiva, scleral icterus or other Neck no lymphadenopathy, supple and no JVD General: Negative for tenderness Lymph Lymphatic: Negative for other Chest Wall inspection of chest normal and palpation of chest normal Chest: Negative for other Resp normal respiratory effort and clear to auscultation bilaterally Effort and Inspection: Negative for retractions Auscultation: Negative for rales, rhonchi, wheezes or diminished lung sounds Cardio Negative for regular rate or regular rhythm Rhythm: abnormal rhythm irregularly irregular GI normal to inspection, nondistended, normoactive bowel sounds, non-tender, non-distended and no masses Inspection: Negative for abdominal distention Auscultation: normoactive bowel sounds Palpation: soft; Negative for tender or guarding Back/Spine no CVA tenderness General Back: Negative for CVA tenderness Cervical Spine: Negative for cervical spine tenderness Thoracic Spine / Upper Back: Negative for thoracic spinal tenderness or paraspinal muscle tenderness Lumbar Spine / Lower Back: Negative for lumbar spinal tenderness Extremity Negative for normal to inspection General Extremety ED: Yes edema; Negative for tenderness General Extremity: edema Neuro oriented x3 and CN's II-XII intact bilaterally Sensorium / Orientation: alert; Negative for orientation impaired, lethargic or stuporous Motor Exam: strength 5/5 throughout Psych mental status grossly normal Appearance: Negative for unkempt Attitude: No agitated Mood & Affect: Negative for depressed, anxious or tearful Skin no rashes or lesions noted General Skin Exam: Negative for jaundice or pallor Lesions: No lesion noted Rashes: No rashes noted Trauma: Negative for abrasion Wounds: Negative for wounds noted MDM MDM MDM Narrative Medical decision making narrative: 73-year-old male recent hospitalization for CHF where he was diuresed and lost 42 pounds. History of A-fib currently is in A-fib RVR. Cardiac workup. Chest x-ray. History & Record Review Discussion w/independent historian: Patient Additional record(s) reviewed:: Prior inpatient record, Prior outpatient record,Prior ED visit and Prior labs Lab Data Attestation: I reviewed the patient's lab results. Lab results narrative: CBC shows a white count 9.2. H&H 11.6 36.8. Platelets 173. Electrolytes show a sodium of 134. Gap 6. BUN 27 creatinine 1. Glucose 132. Troponin 40. Labs: Laboratory Results - last 24 hr 02/17/24 02/17/24 02/17/24 03:00 03:00 03:55 WBC Cancelled 9.2 Corrected WBC Cancelled RBC Cancelled 4.11 L Hgb Cancelled 11.6 L Hct Cancelled 36.8 L MCV Cancelled 89.5 MCH Cancelled 28.2 MCHC Cancelled 31.5 L RDW Std Deviation Cancelled 53.1 H RDW Coeff of Medardo Cancelled 16.3 H Plt Count Cancelled 173 MPV Cancelled 10.8 Immature Gran % (Auto) Cancelled 0.500 Neut % (Auto) Cancelled 81.0 H Lymph % (Auto) Cancelled 6.9 L [place] % (Auto) Cancelled 9.2 Eos % (Auto) Cancelled 1.3 Baso % (Auto) Cancelled 1.1 H Absolute Neuts (auto) Cancelled 7.4 Absolute Lymphs (auto) Cancelled 0.63 L Total Counted Cancelled Neutrophils % (Manual) Cancelled Band Neutrophils % Cancelled Lymphocytes % (Manual) Cancelled Monocytes % (Manual) Cancelled Eosinophils % (Manual) Cancelled Basophils % (Manual) Cancelled Metamyelocytes % Cancelled Myelocytes % Cancelled Promyelocytes % Cancelled Blast Cells % Cancelled Plasma Cell % (Manual) Cancelled Other Cells % Cancelled Nucleated RBC % Cancelled 0 Nucleated RBCs/100 WBC Cancelled Differential Comment Cancelled Diff Path Review Cancelled Hypersegmented Neuts Cancelled Atypical Lymphocytes Cancelled Reactive Lymphocytes Cancelled Smudge Cells Cancelled Toxic Granulation Cancelled Toxic Vacuolation Cancelled Dohle Bodies Cancelled Yogesh Rods Cancelled Platelet Estimate Cancelled Plt Morphology Comment Cancelled RBC Morphology Cancelled Cancelled Polychromasia Cancelled Hypochromasia Cancelled Basophilic Stippling Cancelled Anisocytosis Cancelled Microcytosis Cancelled Macrocytosis Cancelled Spherocytes Cancelled Sickle Cells Cancelled Target Cells Cancelled Tear Drop Cells Cancelled Ovalocytes Cancelled Stomatocytes Cancelled [place] Bodies Cancelled Nima Cells Cancelled Bite Cells Cancelled Crenated Cell Cancelled Acanthocytes (Spur) Cancelled Rouleaux Cancelled Schistocytes Cancelled Sodium 134 L Potassium 4.7 Chloride 98 Carbon Dioxide 30.0 Anion Gap 6 BUN 27 H Creatinine 1.18 Estim Creat Clear Calc 71.14 Est GFR (MDRD) Af Amer 78 Est GFR (MDRD) Non-Af 64 BUN/Creatinine Ratio 22.9 H Glucose 132 H Calcium 9.1 Troponin I High Sens 40 Radiography Chest X-Ray - ED: 1 View, Read by ED Physician, Lungs, Mediastinum, Bony Structures, No Acute Disease, Chronic Changes and Cardiomegaly Diagnostic Testing: Chest x-ray, portable, single view interpreted by myself shows chronic cardiomegaly. Otherwise no acute process. Chronic changes. Rhythm Strip Rhythm Strip: A-fib Rate: 107 Ectopy: PVC(s) EKG Initial EKG: Attestation: I personally reviewed and interpreted this EKG as follows: Interpretation: Atrial Fibrillation Comments: A-fib with rapid ventricular rate of 117 with occasional PVCs. No acute signs of IN. Discharge Plan Triage Chief Complaint: Syncope ED Provider: Noman Cloud Dx/Rx/DC Orders Prescriptions: No Action simvastatin 10 mg Tablet 10 mg PO QHS terazosin 2 mg Capsule 2 mg PO QHS warfarin 5 mg Tablet 5 mg PO DAILY Hold Instructions: Until instructed to reinitiate after follow-up INR lidocaine 5 % Adhesive Patch,Medicated 1 patch topical DAILY Qty: 15 0RF Protocol: *Topical Application Instructions APPLICATION INSTRUCTIONS: To the painful area and back Stiolto Respimat 2.5-2.5 mcg/actuation mist 1 puff inhalation BID albuterol sulfate 90 mcg/actuation HFA aerosol inhaler 1 puff inhalation Q4H PRN (Reason: SOB) furosemide 40 mg Tablet 40 mg PO DAILY 30 Days Qty: 30 2RF acyclovir 800 mg Tablet 800 mg PO 4X/DAY 5 Days Qty: 20 0RF oxycodone 5 mg Tablet 5 mg PO Q6H PRN PRN (Reason: Pain Score 4-10) 7 Days Qty: 28 0RF potassium chloride 20 mEq Tablet,Er Particles/Crystals 20 meq PO DAILY 30 Days Qty: 30 2RF acetaminophen 500 mg Tablet 1,000 mg PO Q8 30 Days Qty: 180 0RF Rx Instructions: Do not exceed 1000 mg 3 times a day oxycodone 10 mg tablet 10 mg PO TID [facility] [facility]errals[facility] [Primary Care Provider] - What to do if you have Problems For any increased pain, shortness of breath, bleeding, nausea or vomiting, chestpain, or any unexpected problems, contact your Primary Care Provider. Call [facility] ([phone]) or report to the closest Emergency Room. Call 911 if necessary. 02/17/24 0736 <Electronically signed by Noman Cloud MD> Cosigner Signature (if applicable): CC: [place] [facility] ~ Signed [facility] Work Phone: 1(274) 694-436904-06-2024 History and physical note Author Karen Sinha [facility] February 17, 2024 5:07am Note Date/Time February 17, 2024 4:48 am [facility] Medical Records Department [address] [place] [id number] H&P Exam - Hospitalist 02/17/24 0439 MR#: [id number] Acct: [id number] Name: ANDER MONTEIRO Rep #:[id number] : 1950 73 From: Karen Sinha MD PCP: [facility] Status:ADM IN Location: [facility] [id number] HPI - General General Date of Admission: 02/17/24 Date of Service: 02/17/24 Chief Complaint: Syncopal event. HPI Narrative The patient is a 73 y/o M w/ PMHx: HFpEF, Moderate Pulmonary HTN, BPH with obstructive symptoms, Chronic Venous stasis disease w/ ulcers, PAF, Morbid Obesity, HTN, HLD, Hx Vertebral Fx with chronic back pain following with Dr. Musa Pain management, COPD, Former tobacco use, recent 02/16/24 discharge following evaluation and treatment for HFpEF exacerbation with concurrently new moderate to severe aortic stenosis with associated significant scrotal edema with echocardiogram with EF 65 to 70%, concentric LV hypertrophy, moderately enlarged LA, mildly enlarged RA, normal RV size and function, moderate to severeaortic stenosis with planned outpatient cardiac catheterization with recommendedcontinued diuresis initially with an Lasix drip and eventual de-escalation to oral regimen which was new for the patient in addition to R lower back suspectedshingles discharged on planned continued empiric acylcovir through 02/19/24 who now re-p[facility] to the [facility] ED on 02/17/24 with history of syncopal episode at homewaking up on the floor with no head injury nor any neck discomfort occurring approximately 1 AM found by his family. Patient reports lightheaded and dizziness with positional changes especially and the symptoms prior to his syncopal event. He notes he is felt significantly weak and fatigued and more sowhen he attempts activity. He reports from his recent presentation a weight loss of approximately 42 pounds following his significant diuresis. Workup in the ED included T97, heart rate 118, BP 123/85, respiratory rate 33, 95% on 4 L nasal cannula recently discharged 02/16/2024 noted to be 97% on room air at that time, CBC with WC 9.2, hemoglobin 11.6, MCV 89.5, platelet 173 with increased immature granulocytes lymphocytosis, BMP with sodium 134, BUN/creatinine 27/1.18, glucose 132, troponin 40, chest x-ray with chronic COPD diet changes with no acute cardiopulmonary findings but final read pending, EKG with atrial fibrillation with RVR with rate 117 with occasional PVC with no acute evidence of ischemia. In the ED patient administered judicious 500 cc NS IV bolus. [facility] Medical History (Updated 02/17/24 @ 05:[address] Karen Sinha MD) (HFpEF) heart failure with preserved ejection fraction Anemia Aortic stenosis Chronic pain syndrome Compression fx, thoracic spine COPD (chronic obstructive pulmonary disease) Former smoker HLD (hyperlipidemia) Hypertension Longstanding persistent atrial fibrillation Obesity RAFAEL on CPAP Home Medications simvastatin 10 mg tablet 10 mg PO QHS cholesterol 09/06/22 [History Last Taken 02/16/24] terazosin 2 mg capsule 2 mg PO QHS prostate 09/06/22 [History Last Taken 02/16/24] warfarin 5 mg tablet 5 mg PO DAILY blood thinner 09/06/22 [History Last Taken 02/16/24] lidocaine 5 % topical patch 1 patch topical DAILY pain #15 ea 09/08/22 [Rx Last Taken Unknown] albuterol sulfate 90 mcg/actuation aerosol inhaler 1 puff inhalation Q4H PRN SOB02/08/24 [History Last Taken 02/16/24] tiotropium 2.5 mcg-olodaterol 2.5 mcg/actuation mist for inhalation (Stiolto Respimat) 1 puff inhalation BID breathing 02/08/24 [History Last Taken Unknown] acetaminophen 500 mg tablet 1,000 mg (2 x 500 mg) PO Q8 pain 30 days #180 tabs 02/16/24 [Rx Last Taken 02/16/24] acyclovir 800 mg tablet 800 mg PO 4X/DAY 5 days #20 tabs 02/16/24 [Rx Last Taken 02/16/24] furosemide 40 mg tablet 40 mg PO DAILY 30 days #30 tabs 02/16/24 [Rx Last Taken 02/16/24] oxycodone 5 mg tablet 5 mg PO Q6H PRN PRN Pain Score 4-10 7 days #28 tabs 02/16/24 [Rx Last Taken 02/16/24] potassium chloride 20 mEq tablet,extended release(part/cryst) 20 meq PO DAILY 30days #30 tabs 02/16/24 [Rx Last Taken 02/16/24] oxycodone 10 mg tablet 10 mg PO TID 02/17/24 [History Last Taken 02/16/24] Allergy/AdvReac Type Severity Reaction Status Date / Time pramoxine Allergy Rash Verified 02/07/24 17:06 Family History (Updated 02/17/24 @ 05:[address] Karen Sinha MD) Mother Cancer Father CAD (coronary artery disease) Heart disease Hypertension Myocardial infarction Surgical History (Updated 02/17/24 @ 05:[address] Karen Sinha MD) History of cardiac radiofrequency ablation (RFA) History of tonsillectomy and adenoidectomy Social History (Updated 02/17/24 @ 05:[address] Karen Sinha MD) household members: family Smoking Status: Former smoker how long ago did patient quit smoking: Quit ~ 35 yrs prior. alcohol intake: never substance use type: does not use ROS ROS Narrative Admission Review of Systems: CONSTITUTIONAL: No weight loss, fever, chills, + weakness or fatigue. HEENT: Eyes: No visual loss, blurred vision, double vision or yellow sclerae. Ears, Nose, Throat: No hearing loss, sneezing, congestion, runny nose or sore throat. SKIN: No rash or itching, lesions, wounds except for + significant bilateral lower extremity venous stasis skin changes, lymphedema, very staged ecchymoses. CARDIOVASCULAR: + Syncopal event, palpitations, still residual peripheral edema,see skin. No chest pain, chest pressure or chest discomfort, orthopnea. RESPIRATORY: No shortness of breath, cough or sputum, wheezing, hemoptysis. GASTROINTESTINAL: No anorexia, nausea, vomiting or diarrhea, abdominal pain, melena, BRBPR. GENITOURINARY: No dysuria, frequency, urgency or retention. NEUROLOGICAL: No headache, dizziness, syncope, paralysis, ataxia, numbness or tingling in the extremities, focal weakness, change in bowel or bladder control,seizure. MUSCULOSKELETAL: + muscle, back pain, joint pain or stiffness. HEMATOLOGIC: + Anemia, easy bleeding/bruising. LYMPHATICS: No enlarged nodes. No history of splenectomy. PSYCHIATRIC: No history of depression or anxiety. ENDOCRINOLOGIC: No reports of sweating, cold or heat intolerance. No polyuria orpolydipsia. ALLERGIES: No history of asthma, hives, eczema or rhinitis. Vital Signs Vital Signs Vital Signs: 02/17/24 02:39 02/17/24 02:53 02/17/24 03:29 Temperature 97 F L Temperature Source Temporal Pulse Rate 118 H Respiratory Rate 33 H Respiratory Effort Short of Breath Respiratory Pattern Normal Blood Pressure 123/85 H Blood Pressure Mean 97 Pulse Ox 95 Oxygen Delivery Method Nasal Cannula Nasal Cannula Oxygen Flow Rate (L/min) 4 4 Weight Weight: 255 lb 11.779 oz Body Mass Index (BMI) 35.6 Physical Exam Narrative Physical Examination: General: Awake, alert, oriented x 3 and cooperative, seated upright in the ED bed in no apparent distress fatigued. Skin: Normal color, normal turgor, no icterus, no cyanosis except notable bilateral lower extremity venous stasis skin changes, lymphedema, chronic stasiswounds as well as very stage extremity ecchymoses. HEENT: AT/NC, EOMI, PERRLA, dry MM, no carotid bruits or JVD noted. Lungs: Diminished, distant, no evidence of any distress, appropriate effort, no rales, ronchi or wheezing. Heart: Irregular, rate currently controlled; no gallop, rub audible, + SM. Abdomen: Soft, obese, NTTP, ND, distant hyperactive BS, no appreciated HSM. Extremities: No cyanosis, no clubbing, still residual edema but patient reports it is significantly improved from previously, see skin. Neurological: Patient awake, alert, oriented as noted, cognitive function intact; pupils equally reactive to light and accommodation, cranial nerves grossly normal, moving all 4 extremities, no focal deficits, strength severely globally decreased. Psychiatric: Affect appears flat, fatigued, no acute evidence of depressive or anxiety feelings. Results Lab / Micro Data 02/17/24 03:55 02/17/24 03:00 Labs: Laboratory Results - last 24 hr 02/17/24 03:00: WBC Cancelled, Corrected WBC Cancelled, RBC Cancelled, Hgb Cancelled, Hct Cancelled, MCV Cancelled, MCH Cancelled, MCHC Cancelled, RDW Std Deviation Cancelled, RDW Coeff of Medardo Cancelled, Plt Count Cancelled, MPV Cancelled, Immature Gran % (Auto) Cancelled, Neut % (Auto) Cancelled, Lymph % (Auto) Cancelled, [place] % (Auto) Cancelled, Eos % (Auto) Cancelled, Baso % (Auto)Cancelled, Absolute Neuts (auto) Cancelled, Absolute Lymphs (auto) Cancelled, Total Counted Cancelled, Neutrophils % (Manual) Cancelled, Band Neutrophils % Cancelled, Lymphocytes % (Manual) Cancelled, Monocytes % (Manual) Cancelled, Eosinophils % (Manual) Cancelled, Basophils % (Manual) Cancelled, Metamyelocytes% Cancelled, Myelocytes % Cancelled, Promyelocytes % Cancelled, Blast Cells % Cancelled, Plasma Cell % (Manual) Cancelled, Other Cells % Cancelled, Nucleated RBC % Cancelled, Nucleated RBCs/100 WBC Cancelled, Differential Comment Cancelled, Diff Path Review Cancelled, Hypersegmented Neuts Cancelled, Atypical Lymphocytes Cancelled, Reactive Lymphocytes Cancelled, Smudge Cells Cancelled, Toxic Granulation Cancelled, Toxic Vacuolation Cancelled, Dohle Bodies Cancelled, Yogesh Rods Cancelled, Platelet Estimate Cancelled, Plt Morphology Comment Cancelled, RBC Morphology Cancelled 02/17/24 03:00: RBC Morphology Cancelled, Polychromasia Cancelled, HypochromasiaCancelled, Basophilic Stippling Cancelled, Anisocytosis Cancelled, Microcytosis Cancelled, Macrocytosis Cancelled, Spherocytes Cancelled, Sickle Cells Cancelled, Target Cells Cancelled, Tear Drop Cells Cancelled, Ovalocytes Cancelled, Stomatocytes Cancelled, [place] Bodies Cancelled, Nima Cells Cancelled, Bite Cells Cancelled, Crenated Cell Cancelled, Acanthocytes (Spur) Cancelled, Rouleaux Cancelled, Schistocytes Cancelled, Sodium 134 L, Potassium 4.7, Chloride 98, Carbon Dioxide 30.0, Anion Gap 6, BUN 27 H, Creatinine 1.18, Estim Creat Clear Calc 71.14, Est GFR (MDRD) Af Amer 78, Est GFR (MDRD) Non-Af 64, BUN/Creatinine Ratio 22.9 H, Glucose 132 H, Calcium 9.1, Troponin I High Sens 40 02/17/24 03:55: WBC 9.2, RBC 4.11 L, Hgb 11.6 L, Hct 36.8 L, MCV 89.5, MCH 28.2,MCHC 31.5 L, RDW Std Deviation 53.1 H, RDW Coeff of Medardo 16.3 H, Plt Count 173, MPV 10.8, Immature Gran % (Auto) 0.500, Neut % (Auto) 81.0 H, Lymph % (Auto) 6.9L, [place] % (Auto) 9.2, Eos % (Auto) 1.3, Baso % (Auto) 1.1 H, Absolute Neuts (auto) 7.4, Absolute Lymphs (auto) 0.63 L, Nucleated RBC % 0 Rhythm Strip Rhythm Strip: A-fib Rate: 107 Ectopy: PVC(s) Assessment & Plan Assessment/Plan (1) Syncope and collapse: PLAN: Plan The patient is a 73 y/o M w/ PMHx: HFpEF, Moderate Pulmonary HTN, BPH with obstructive symptoms, Chronic Venous stasis disease w/ ulcers, PAF, Morbid Obesity, HTN, HLD, Hx Vertebral Fx with chronic back pain following with Dr. Musa Pain management, COPD, Former tobacco use, recent 02/16/24 discharge following evaluation and treatment for HFpEF exacerbation with concurrently new moderate to severe aortic stenosis in addition to R lower back suspected shingles who now re-p[facility] to [facility] ED on 02/17/24 with history of syncopal episode at home waking up on the floor with no head injury nor any neck discomfort occurring approximately 1 AM found by his family. #1. Adult FTT, Multifactorial as noted below in addition to Acute Syncopal Event, suspected primarily secondary to recent significant diuresis with possibly orthostasis: EKG in ED w/ atrial fibrillation with RVR with no acute evidence of ischemia, initial trop normal 40. Will admit to PCU, place on a monitored bed to assure no acute myocardial infarction with serial cardiac enzymes and EKGs. Will maintain on fall precautions, obtain admission orthostatic and AM orthostatic VS and if appropriate initiate hydration, will hold diuresis. PT/OT/case management consultation for discharge planning. #2. PAF w/ RVR: We will continue patient home Coumadin with INR trending, will continue patient home metoprolol therapy with dose now especially given poor rate control. #3. Acute Hypoxia, unclear etiology, possibly multifactorial: Patient with underlying sleep apnea, underlying COPD although no overt exacerbation but presentation also as noted with PAF with RVR, will continue supplemental oxygen with wean as tolerated to room air, will continue treatments as noted and await final radiology chest x- ray read also to be cautious. #4. HFpEF with recent exacerbation with notable aortic valvular heart disease: Recent ECHO w/ EF 65 to 70%, concentric LV hypertrophy, moderately enlarged LA,mildly enlarged RA, normal RV size and function, moderate to severe aortic stenosis, place snug KWAKU wraps. Will continue patient home given with INR trending, statin therapy, metoprolol, hold lasix with very judicious hydrate as noted. #5. Chronic COPD: Will maintain on oxygen with wean as tolerated to room air, hold home inhaler in the interim transition to ATC budesonide therapy, PRN albuterol, HOB, IS parameters. #6. Recent right lower back shingles: We will continue patient home acyclovir regimen to completion 02/19/2024, contact exposure precautions. #7. Hypertension: Continue home regimen including metoprolol, temporally holding Lasix given concern for orthostasis with syncopal event as noted above #1, PRN hydralazine. #8. Hyperlipidemia: We will continue patient on statin therapy. #9. Morbid Obesity: Weight loss and lifestyle changes encouraged, nutrition consulted. #10. Chronic venous stasis skin disease with stasis ulcers: Complicated by significant edema, habitus, will place neck Kwaku wraps with elevation, wound RN consulted. #11. History of vertebral fracture with chronic back pain: Following with pain management, Dr. Musa, will continue patient home chronic oxycodone regimen as well as lidocaine patch and encourage offloading, PT/OT/case management consulted for discharge planning. #12. BPH with obstructive symptoms: We will continue patient home prazosin regimen. #13. Former tobacco use: Encourage continued tobacco cessation. #14. RAFAEL: CPAP q HS. #15. DVT prophylaxis: Will continue Coumadin therapy with INR trending. #16. CODE status: Patient HCPOA and living will are not in place. He states hedoes not have a specific individual that he would want to assign as his decision- maker but he does have a spouse. Discussed CODE status at length including difference between FULL code, DNR-CCA and DNR-CC status. Following discussions about the differences in these status, requested Full Code status. Advanced Care Planning Face to Face Time: 16 minutes. Charges/Coding Visit Charges Inpatient E&M: 39260 Init Hosp L3 Procedures Hospitalists Procedures: 85605 Advncd Care Plan 30 Min 02/17/24 0507 <Electronically signed by Karen Sinha MD> Cosigner Signature (if applicable): CC: Dr. Karen Sinha MD; [facility]~ Signed [facility] Work Phone: [phone]) 737-283304-05-2024 Discharge summary [facility] February 16, 2024 1:28pm Note Date/Time February 16, 2024 10:4 2am [facility] Medical Records Department [facility] [place] [address] Instructions for Home/Discharge Instructions 02/16/24 1042 MR#: [id number] Acct: [id number] Name: ANDER MONTEIRO Nestor Rep #:[id number] : 1950 73 From: Bharat narvaez DO PCP: [place] [facility] Status:ADM IN Discharge Instructions Diet Discharge Diet: No restrictions Activity Discharge Activity: No Restrictions Weight Bearing Status: Full weight bearing Follow Up Care Test Results: Test results from this visit will be discussed in further detail at your follow- up appointment, if applicable. Discharge Plan Admission Admit Date/Time: 02/07/24 19:38 Primary Reason for Your Visit: Worsening volume overload with scrotal edema Attending Provider: Bharat Wilkins Primary Care Provider: [facility] Consulting Providers: Aj Randolph; Osiris Yip; Bharat Wilkins; Brady Kemp Discharge Orders/Prescriptions Prescriptions: New furosemide 40 mg Tablet 40 mg PO DAILY 30 Days Qty: 30 2RF acyclovir 800 mg Tablet 800 mg PO 4X/DAY 5 Days Qty: 20 0RF oxycodone 5 mg Tablet 5 mg PO Q6H PRN PRN (Reason: Pain Score 4-10) 7 Days Qty: 28 0RF potassium chloride 20 mEq Tablet,Er Particles/Crystals 20 meq PO DAILY 30 Days Qty: 30 2RF Continued simvastatin 10 mg Tablet 10 mg PO QHS terazosin 2 mg Capsule 2 mg PO QHS warfarin 5 mg Tablet 5 mg PO DAILY Hold Instructions: Until instructed to reinitiate after follow-up INR metoprolol tartrate 25 mg Tablet 25 mg PO BID lidocaine 5 % Adhesive Patch,Medicated 1 patch topical DAILY Qty: 15 0RF Protocol: *Topical Application Instructions APPLICATION INSTRUCTIONS: To the painful area and back Stiolto Respimat 2.5-2.5 mcg/actuation mist 1 puff inhalation BID albuterol sulfate 90 mcg/actuation HFA aerosol inhaler 1 puff inhalation Q4H PRN (Reason: SOB) acetaminophen 500 mg Tablet 1,000 mg PO Q8 30 Days Qty: 180 0RF Rx Instructions: Do not exceed 1000 mg 3 times a day Discontinued lisinopril 10 mg Tablet 10 mg PO QHS Hold Instructions: Until follow-up with outpatient primary care physician to reassess blood pressure oxycodone 5 mg Tablet 10 mg PO Q8H PRN (Reason: pain) 7 Days Qty: 30 0RF furosemide [Lasix] 20 mg Tablet 20 mg PO DAILY Qty: 20 0RF Rx Instructions: Take as needed for lower extremity swelling oxycodone 10 mg tablet 10 mg PO Q8H PRN (Reason: pain) 7 Days Qty: 21 0RF Referrals / Follow Up: Osbaldo Laird MD [Med Staff - Active Staff] - 02/23/24 2:15 pm [facility] [Primary Care Provider] - Disposition Disposition (needs filled in before D/C Order can be placed): Home, Self Care 02/16/24 1328<Electronically signed by Bharat Wilkins DO>Bharat Wilkins DO CC: Dr. Bharat Wilkins DO; Dr. Aj Randolph DO; Dr. Osiris Yip MD; Dr. Brady Kemp, ; [facility] ~ Signed [facility] Work Phone: [phone]) 157-276704-04-2024 Progress note Author [facility] February 15, 2024 2:51pm Note Date/Time February 15, 2024 12:3 1pm [facility] Medical Records Department [address] [place] [address] Progress Note - Hospitalist 02/15/24 1231 MR#: [id number] Acct: [id number] Name: ANDER MONTEIRO Rep #:[id number] : 1950 73 From: Bharat narvaez DO PCP: [facility] Status:ADM IN Location: [place] [address]- 1 Reason for Visit Reason for Visit: Diagnoses Nonrheumatic aortic (valve) stenosis (02/07/24) Longstanding persistent atrial fibrillation (02/07/24) Heart failure, unspecified (02/07/24) Other specified disorders of the male genital organs (02/07/24) Subjective Subjective No acute events overnight. Patient seen at bedside this morning. Sitting up comfortably in bedside chair, conversing normally, no acute distress. Reports feeling similar to previous days. Patient did have his Lima catheter removed this morning for void trial and has voided several times since then. Had some difficulty getting to the bathroom in the room due to his baseline debility and now has external catheter in place and is tolerating this without issue. Statesthat his scrotal edema does feel moderately improved from admission now. No other acute concerns this morning. Objective Data Objective Data Vital Signs: Vital Signs Temp Pulse Resp BP Pulse Ox O2 Del Method O2 Flow Rate 97.2 F L 60 16 99/68 100 Room Air 92 02/15/24 11:09 02/15/24 11:15 02/15/24 11:09 02/15/24 11:15 02/15/24 11:09 02/15/24 11:09 02/11/24 15:57 FiO2 21 02/12/24 19:25 Oxygen Flow Rate (L/min) 92 Oxygen Delivery Method Room Air Weight: 110.6 kg Body Mass Index (BMI) 34.0 Intake & Output: Intake and Output for Last 24 Hours 02/13/24 02/14/24 02/15/24 23:59 23:59 23:59 Intake Total 124.13 / 174.13 370.5 / 370.5 250 / 250 Output Total 2875 / 4075 2635 / 2635 500 / 500 Balance -2750.87 / -3900.87 -2264.5 / -2264.5 -250 / -250 Lab / Micro Data 02/13/24 06:45 02/15/24 06:05 Labs: Laboratory Results - last 24 hr 02/15/24 06:05: Sodium 136, Potassium 3.6, Chloride 98, Carbon Dioxide 32.0, Anion Gap 6, BUN 19 H, Creatinine 1.00, Estim Creat Clear Calc 81.97, Est GFR (MDRD) Af Amer 94, Est GFR (MDRD) Non-Af 78, BUN/Creatinine Ratio 19.0, Glucose 106, Calcium 8.8 Micro: Microbiology 02/07/24 18:44 Stool Stool Occult Blood (JONATHAN) - Final Occult Blood Positive Rhythm Strip Rhythm Strip: A-fib Rate: 84 Ectopy: None Physical Exam Const alert, oriented x3 and no apparent distress Constitutional Narrative: Elderly male, morbidly obese, sitting up comfortably in bedside, conversing normally, no acute distress. General Appearance: cooperative and comfortable HEENT normocephalic, head/scalp atraumatic, hearing grossly normal bilaterally, nasal mucous membranes and turbinates normal and moist oral mucous membranes Eyes PERRL, EOMs intact bilaterally and conjunctivae normal Neck full ROM Chest inspection of chest normal Resp normal respiratory effort, normal air movement, no use of accessory muscles and clear to auscultation bilaterally Cardio regular rate, regular rhythm, no murmurs and peripheral pulses 2+ throughout GI normal to inspection, nondistended, normoactive bowel sounds, soft to palpation,non-tender and non-distended Narrative: Scrotal edema moderately improved from admission. Catheter removed on 02/14, external catheter in place, draining clear pale yellow urine. No suprapubic tenderness noted. Back/Spine normal ROM Extremity full ROM Extremity Narrative: Lymphedematous changes noted in lower extremities bilaterally. Lower extremity swelling improved from admission. Ulcers on right lateral gregorio and left lower leg evaluated on 02/11, noninfectious appearing, stable from previous. Skin Skin Narrative: Right lateral lower back lesions noted on 02/11. Fairly large and red in appearance, with one of the wounds appearing open. Appears to possibly be following a dermatomal distribution. Stable. Neuro moves all extremities and no focal motor deficits Speech: speech normal Psych mental status grossly normal Assessment & Plan Assessment/Plan (1) CHF exacerbation: (2) Scrotal edema: PLAN: Plan Patient is a 73-year-old male who presented to [facility] ED on 02/07/2024 with worsening lower extremity edema and scrotal edema. 1. Acute HFpEF, moderate pulmonary hypertension Presumed secondary to nonadherence to home Lasix. Marked lower extremity edema and scrotal edema on admission. Noted to be approximate 10 kg heavier than on last hospitalization back in 2021. BNP 974. Chest x-ray showed vascular congestion with small left-sided effusion. Patient reported dyspnea on exertionbut notably with good oxygen saturations on room air at rest on admission. Lastecho on 09/07/2022 showed EF 60%, normal LV function, no diastolic dysfunction noted, no regional wall motion abnormalities. Repeat echo on 02/07 shows EF 65 to 70%, concentric LV hypertrophy, moderately enlarged LA, mildly enlarged RA, normal RV size and function, moderate to severe aortic stenosis. Cardiology evaluated on 02/08, noted that the aortic stenosis is a newer finding and likely need to be further evaluated with a heart cath but this can be done on an outpatient basis. Recommended continued diuresis and signed off. ? Treated with Lasix drip til 02/13 with good urine output and symptomatic improvement. De-escalated to p.o. Lasix 40 mg daily on 02/14. If remains stable,will plan to discharge patient on this dose tomorrow. Continue to monitor dailyBMP and urine output. Continue home Lopressor and lisinopril. 2. BPH with obstructive symptoms Patient on home terazosin. Noted worsening urinary frequency with significant hesitation and difficulty with emptying his bladder for 1 to 2 months prior to this admission. ? Lima catheter placed in the ED, remained in place till 02/14 as patient was on IV Lasix. Lima catheter removed on 02/14, patient passed voiding trial. Continue home tamsulosin. 3. Debility ? PT/OT/case management following. Patient qualifies for home health care and initially declined needing their services, however now requesting home health services given his lower extremity wounds and difficulty changing these on his own. Will continue to follow. 4. Scrotal edema, improving ? Presumed secondary to volume overload from CHF exacerbation. Diuresed as noted above with moderate improvement. No clinical evidence of scrotal infection. Elevate scrotum as able. 5. Venous stasis ulcers ? No evidence of infection at this time. Wound care following. 6. Aortic stenosis ? Echo on admit showed moderate to severe aortic valve stenosis with peak gradient 82 mmHg, mean gradient 45 mmHg. No aortic stenosis noted on last echo in 2021. Cardiology evaluated, recs as noted above. 7. Right lower back lesions concerning for shingles ? Patient noted to have worsening right lower back lesions with moderate to severe pain with them on 02/12. Does seem to follow dermatomal distribution, haveconcern for shingles. Unfortunately there is no testing available for shingles in our hospital. Treating empirically with acyclovir 800 mg 4 times daily for 7days, stop date 02/18. Chronic medical conditions: ? Morbid obesity: BMI 43 on admit. Complicates hospital course, care and prognosis. ? A-fib: Rate controlled. INR therapeutic on admission. Continue home Lopressor and warfarin. ? History of vertebral fractures with chronic back pain: Follows with Dr. Meredith pain management. On pain control at home with oxycodone and acetaminophen,continue these while inpatient. Lidocaine patch ordered as well. DVT prophylaxis: Warfarin CODE STATUS: Full code, verified Expected disposition: Home with home health care, 1 to 2 days Total clinical time spent by myself addressing the patient's medical issues, reviewing all the data, and collaborating with patient's care team: 35 minutes. Charges/Coding Visit Charges Inpatient E&M: 35916 Subs Hosp L2 02/15/24 6879 <Electronically signed by Bharat Mosteller DO> Cosigner Signature (if applicable): CC: ~ Signed [facility] Work Phone: [phone]) 707-484904-03-2024 Progress note Author Bharat Wilkins [facility] [facility] February 14, 2024 1:58pm Note Date/Time February 14, 2024 12:2 2pm [facility] Medical Records Department [address] [place] [address] Progress Note - Hospitalist 02/14/24 1222 MR#: [id number] Acct: [id number] Name: ANDER MONTEIRO Rep #:[id number] : 1950 73 From: Bharat narvaez DO PCP: [facility] Status:ADM IN Location: [place] [address]- 1 Reason for Visit Reason for Visit: Diagnoses Nonrheumatic aortic (valve) stenosis (02/07/24) Longstanding persistent atrial fibrillation (02/07/24) Heart failure, unspecified (02/07/24) Other specified disorders of the male genital organs (02/07/24) Subjective Subjective No acute events overnight. Patient did have hypotension to the 80s over 40s this morning per nursing staff. Patient was sitting at bed at the time and denied any symptoms with this. Saw patient at the bedside later in the morning. He was sitting up comfortably in bed, conversing normally, in no acute distress. Appeared similar to previous days. He stated that his right low backpain at the site with lesions concerning for shingles feels improved today. He denies feeling significantly dry today, feels similar to previous days. No other acute concerns. Objective Data Objective Data Vital Signs: Vital Signs Temp Pulse Resp BP Pulse Ox O2 Del Method O2 Flow Rate 98.3 F 74 18 84/52 L 94 Room Air 92 02/14/24 10:32 02/14/24 10:32 02/14/24 10:32 02/14/24 10:32 02/14/24 10:32 02/14/24 10:32 02/11/24 15:57 FiO2 21 02/12/24 19:25 Oxygen Flow Rate (L/min) 92 Oxygen Delivery Method Room Air Weight: 112.9 kg Body Mass Index (BMI) 34.7 Intake & Output: Intake and Output for Last 24 Hours 02/12/24 02/13/24 02/14/24 23:59 23:59 23:59 Intake Total 908.5 / 958.5 124.13 / 174.13 70.5 / 70.5 Output Total 4800 / 5300 2875 / 4075 1200 / 1200 Balance -3891.5 / -4341.5 -2750.87 / -3900.87 -1129.5 / -1129.5 Lab / Micro Data 02/13/24 06:45 02/14/24 06:55 Labs: Laboratory Results - last 24 hr 02/14/24 06:55: Sodium 135 L, Potassium 3.4 L, Chloride 95 L, Carbon Dioxide 36.0 H, Anion Gap 4 L, BUN 15, Creatinine 0.91, Estim Creat Clear Calc 91.00, Est GFR (MDRD) Af Amer 104, Est GFR (MDRD) Non-Af 86, BUN/Creatinine Ratio 16.4,Glucose 101, Calcium 9.2 Micro: Microbiology 02/07/24 18:44 Stool Stool Occult Blood (JONATHAN) - Final Occult Blood Positive Rhythm Strip Rhythm Strip: A-fib Rate: 84 Ectopy: None Physical Exam Const alert, oriented x3 and no apparent distress Constitutional Narrative: Elderly male, morbidly obese, sitting up comfortably in bedside, conversing normally, no acute distress. General Appearance: cooperative and comfortable HEENT normocephalic, head/scalp atraumatic, hearing grossly normal bilaterally, nasal mucous membranes and turbinates normal and moist oral mucous membranes Eyes PERRL, EOMs intact bilaterally and conjunctivae normal Neck full ROM Chest inspection of chest normal Resp normal respiratory effort, normal air movement, no use of accessory muscles and clear to auscultation bilaterally Cardio regular rate, regular rhythm, no murmurs and peripheral pulses 2+ throughout GI normal to inspection, nondistended, normoactive bowel sounds, soft to palpation,non-tender and non-distended Narrative: Severe scrotal edema noted, mildly improved from admission. Catheter in place, draining clear pale yellow urine. No suprapubic tenderness noted. Back/Spine normal ROM Extremity full ROM Extremity Narrative: Lymphedematous changes noted in lower extremities bilaterally. Lower extremity swelling improved from admission. Ulcers on right lateral gregorio and left lower leg evaluated on 02/11, noninfectious appearing, stable from previous. Skin Skin Narrative: Right lateral lower back lesions noted on 02/11. Fairly large and red in appearance, with one of the wounds appearing open. Appears to possibly be following a dermatomal distribution. Neuro moves all extremities and no focal motor deficits Speech: speech normal Psych mental status grossly normal Assessment & Plan Assessment/Plan (1) CHF exacerbation: (2) Scrotal edema: PLAN: Plan Patient is a 73-year-old male who presented to [facility] ED on 02/07/2024 with worsening lower extremity edema and scrotal edema. 1. Acute HFpEF, moderate pulmonary hypertension Presumed secondary to nonadherence to home Lasix. Marked lower extremity edema and scrotal edema on admission. Noted to be approximate 10 kg heavier than on last hospitalization back in 2021. BNP 974. Chest x-ray showed vascular congestion with small left-sided effusion. Patient reported dyspnea on exertionbut notably with good oxygen saturations on room air at rest on admission. Lastecho on 09/07/2022 showed EF 60%, normal LV function, no diastolic dysfunction noted, no regional wall motion abnormalities. Repeat echo on 02/07 shows EF 65 to 70%, concentric LV hypertrophy, moderately enlarged LA, mildly enlarged RA, normal RV size and function, moderate to severe aortic stenosis. Cardiology evaluated on 02/08, noted that the aortic stenosis is a newer finding and likely need to be further evaluated with a heart cath but this can be done on an outpatient basis. Recommended continued diuresis and signed off. ? Transition from Lasix drip to IV Lasix 40 mg twice daily on 02/13 due to borderline hypotension. Creatinine remains fairly stable, will continue IV diuresis through tomorrow. Continue to monitor BMP and urine output. Hoping totransition to p.o. Lasix tomorrow with possible plan for discharge on Monday. Continue home Lopressor and lisinopril. 2. BPH with obstructive symptoms Patient on home terazosin. Noted worsening urinary frequency with significant hesitation and difficulty with emptying his bladder for 1 to 2 months prior to this admission. ? Lima catheter placed in the ED, can continue for now as patient remains on IVlasix. Continue tamsulosin. Will plan to discontinue Lima tomorrow for void trial. 3. Debility ? PT/OT/case management following. Patient qualifies for home health care but is currently declining as he has had home health care services in the past and does not feel like he needs them after this discharge. 4. Scrotal edema ? Presumed secondary to volume overload from CHF exacerbation. Treating with IVdiuresis as noted above. No clinical evidence of scrotal infection. Elevate scrotum as able. 5. Venous stasis ulcers ? No evidence of infection at this time. Wound care following. 6. Aortic stenosis ? Echo on admit showed moderate to severe aortic valve stenosis with peak gradient 82 mmHg, mean gradient 45 mmHg. No aortic stenosis noted on last echo in 2021. Cardiology evaluated, recs as noted above. 7. Right lower back lesions concerning for shingles ? Patient noted to have worsening right lower back lesions with moderate to severe pain with them on 02/12. Does seem to follow dermatomal distribution, have concern for shingles. Unfortunately there is no testing available for shingles in our hospital. Will empirically treat with acyclovir 800 mg 4 times daily for7 days. Chronic medical conditions: ? Morbid obesity: BMI 43 on admit. Complicates hospital course, care and prognosis. ? A-fib: Rate controlled. INR therapeutic on admission. Continue home Lopressor and warfarin. ? History of vertebral fractures with chronic back pain: Follows with Dr. Meredith pain management. On pain control at home with oxycodone and acetaminophen,continue these while inpatient. Lidocaine patch ordered as well. DVT prophylaxis: Warfarin CODE STATUS: Full code, verified Expected disposition: Home, 2 to 3 days Total clinical time spent by myself addressing the patient's medical issues, reviewing all the data, and collaborating with patient's care team: 35 minutes. Charges/Coding Visit Charges Inpatient E&M: 35739 Subs Hosp L2 02/14/24 1356 <Electronically signed by Bharat Wilkins DO> Cosigner Signature (if applicable): CC: ~ Signed [facility] Work Phone: 1(949) 258-872704-02-2024 Progress note Author Bharat Wilkins [facility] February 13, 2024 3:52pm Note Date/Time February 13, 2024 12:1 2pm [facility] Medical Records Department [address] [place] [address] Progress Note - Hospitalist 02/13/24 1212 MR#: [id number] Acct: [id number] Name: ANDER MONTEIRO Rep #:[id number] : 1950 73 From: Bharat narvaez DO PCP: [facility] Status:ADM IN Location: [facility] [id number]- [id number] Reason for Visit Reason for Visit: Diagnoses Nonrheumatic aortic (valve) stenosis (02/07/24) Longstanding persistent atrial fibrillation (02/07/24) Heart failure, unspecified (02/07/24) Other specified disorders of the male genital organs (02/07/24) Subjective Subjective No acute events overnight. Patient seen at bedside this morning. Patient reports right-sided abdominal lesions that been causing him pain during this admission, notes that they appeared scabbed initially and now have seemed to open up. Reports moderate to severe pain at times with these lesions. Patient otherwise has been tolerating continued diuresis without issues. Continues to have severe scrotal edema, similar to previous days. No other acute concerns this time. Objective Data Objective Data Vital Signs: Vital Signs Temp Pulse Resp BP Pulse Ox O2 Del Method O2 Flow Rate 97.9 F 81 18 104/74 94 Room Air 92 02/13/24 09:00 02/13/24 09:00 02/13/24 09:00 02/13/24 09:00 02/13/24 09:00 02/13/24 09:00 02/11/24 15:57 FiO2 21 02/12/24 19:25 Oxygen Flow Rate (L/min) 92 Oxygen Delivery Method Room Air Weight: 124.6 kg Body Mass Index (BMI) 38.2 Intake & Output: Intake and Output for Last 24 Hours 02/11/24 02/12/24 02/13/24 23:59 23:59 23:59 Intake Total 739.32 / 739.32 908.5 / 958.5 100 / 100 Output Total 3250 / 3250 4800 / 5300 1375 / 1375 Balance -2510.68 / -2510.68 -3891.5 / -4341.5 -1275 / -1275 Lab / Micro Data 02/13/24 06:45 02/13/24 06:45 Labs: Laboratory Results - last 24 hr 02/13/24 06:45: WBC 5.2, RBC 4.16 L, Hgb 11.8 L, Hct 36.8 L, MCV 88.5, MCH 28.4,MCHC 32.1, RDW Std Deviation 54.2 H, RDW Coeff of Medardo 16.8 H, Plt Count 182, MPV11.2, Sodium 135 L, Potassium 3.5, Chloride 96 L, Carbon Dioxide 34.0 H, Anion Gap 5, BUN 14, Creatinine 0.84, Estim Creat Clear Calc 103.69, Est GFR (MDRD) AfAmer 114, Est GFR (MDRD) Non-Af 95, BUN/Creatinine Ratio 16.6, Glucose 93, Calcium 9.7 Micro: Microbiology 02/07/24 18:44 Stool Stool Occult Blood (JONATHAN) - Final Occult Blood Positive Rhythm Strip Rhythm Strip: A-fib Rate: 84 Ectopy: None Physical Exam Const alert, oriented x3 and no apparent distress Constitutional Narrative: Elderly male, morbidly obese, sitting up comfortably in bedside, conversing normally, no acute distress. General Appearance: cooperative and comfortable HEENT normocephalic, head/scalp atraumatic, hearing grossly normal bilaterally, nasal mucous membranes and turbinates normal and moist oral mucous membranes Eyes PERRL, EOMs intact bilaterally and conjunctivae normal Neck full ROM Chest inspection of chest normal Resp normal respiratory effort, normal air movement, no use of accessory muscles and clear to auscultation bilaterally Cardio regular rate, regular rhythm, no murmurs and peripheral pulses 2+ throughout GI normal to inspection, nondistended, normoactive bowel sounds, soft to palpation,non-tender and non-distended Narrative: Severe scrotal edema noted, mildly improved from admission. Catheter in place, draining clear pale yellow urine. No suprapubic tenderness noted. Back/Spine normal ROM Extremity full ROM Extremity Narrative: Lymphedematous changes noted in lower extremities bilaterally. Lower extremity swelling improved from admission. Ulcers on right lateral gregorio and left lower leg evaluated on 02/11, noninfectious appearing, stable from previous. Skin Skin Narrative: Right lateral lower back lesions noted. Fairly large and red in appearance, with one of the wounds appearing open. Appears to possibly be following a dermatomal distribution. Neuro moves all extremities and no focal motor deficits Speech: speech normal Psych mental status grossly normal Assessment & Plan Assessment/Plan (1) CHF exacerbation: (2) Scrotal edema: PLAN: Plan Patient is a 73-year-old male who presented to [facility] ED on 02/07/2024 with worsening lower extremity edema and scrotal edema. 1. Acute HFpEF, moderate pulmonary hypertension Presumed secondary to nonadherence to home Lasix. Marked lower extremity edema and scrotal edema on admission. Noted to be approximate 10 kg heavier than on last hospitalization back in 2021. BNP 974. Chest x-ray showed vascular congestion with small left-sided effusion. Patient reported dyspnea on exertionbut notably with good oxygen saturations on room air at rest on admission. Lastecho on 09/07/2022 showed EF 60%, normal LV function, no diastolic dysfunction noted, no regional wall motion abnormalities. Repeat echo on 02/07 shows EF 65 to 70%, concentric LV hypertrophy, moderately enlarged LA, mildly enlarged RA, normal RV size and function, moderate to severe aortic stenosis. Cardiology evaluated on 02/08, noted that the aortic stenosis is a newer finding and likely need to be further evaluated with a heart cath but this can be done on an outpatient basis. Recommended continued diuresis and signed off. ? Continues to have very good urine output and kidney function remained stable. Lasix drip increased to 20 ml/hr on 02/12. Continue to monitor daily BMP and urine output. Continue home Lopressor and lisinopril. 2. BPH with obstructive symptoms Patient on home terazosin. Noted worsening urinary frequency with significant hesitation and difficulty with emptying his bladder for 1 to 2 months prior to this admission. ? Lima catheter placed in the ED, can continue for now as patient remains on Lasix drip. Continue tamsulosin. Will plan to discontinue Lima with void trial prior to discharge. 3. Debility ? PT/OT/case management following. Patient qualifies for home health care but is currently declining as he has had home health care services in the past and does not feel like he needs them after this discharge. 4. Scrotal edema ? Presumed secondary to volume overload from CHF exacerbation. Treating with IVdiuresis as noted above. No clinical evidence of scrotal infection. Elevate scrotum as able. 5. Venous stasis ulcers ? No evidence of infection at this time. Wound care following 6. Aortic stenosis ? Echo on admit showed moderate to severe aortic valve stenosis with peak gradient 82 mmHg, mean gradient 45 mmHg. No aortic stenosis noted on last echo in 2021. Cardiology evaluated, recs as noted above. 7. Right lower back lesions concerning for shingles ? Patient noted to have worsening right lower back lesions with moderate to severe pain with them on 02/12. Does seem to follow dermatomal distribution, haveconcern for shingles. Unfortunately there is no testing available for shingles in our hospital. Will empirically treat with acyclovir 800 mg 4 times daily for7 days. Chronic medical conditions: ? Morbid obesity: BMI 43 on admit. Complicates hospital course, care and prognosis. ? A-fib: Rate controlled. INR therapeutic on admission. Continue home Lopressor and warfarin. ? History of vertebral fractures with chronic back pain: Follows with Dr. Meredith pain management. On pain control at home with oxycodone and acetaminophen,continue these while inpatient. Lidocaine patch ordered as well. DVT prophylaxis: Warfarin CODE STATUS: Full code, verified Expected disposition: Home, 2 to 3 days Total clinical time spent by myself addressing the patient's medical issues, reviewing all the data, and collaborating with patient's care team: 35 minutes. Charges/Coding Visit Charges Inpatient E&M: 60672 Subs Hosp L2 02/13/24 3944 <Electronically signed by Bharat Wilkins DO> Cosigner Signature (if applicable): CC: ~ Signed [facility] Work Phone: 1(124) 829-943904-01-2024 Progress note Author Bharat [facility] February 12, 2024 1:20pm Note Date/Time February 12, 2024 12:3 6pm [facility] Medical Records Department [address] [place] [address] Progress Note - Hospitalist 02/12/24 1236 MR#: [id number] Acct: [id number] Name: ANDER MONTEIRO Rep #:[id number] : 1950 73 From: Bharat narvaez DO PCP: [facility] Status:ADM IN Location: [facility] [id number]- 1 Reason for Visit Reason for Visit: Diagnoses Nonrheumatic aortic (valve) stenosis (02/07/24) Longstanding persistent atrial fibrillation (02/07/24) Heart failure, unspecified (02/07/24) Other specified disorders of the male genital organs (02/07/24) Subjective Subjective No acute events overnight. Patient seen at bedside this morning. Was sitting up comfortably in bedside chair, no acute distress. Nurse was changing his leg dressings when I saw him. His legs look significantly less volume overloaded than on admission. Patient reports that his scrotum continues to be very swollen, only mildly improved from admission. He otherwise has been tolerating activity well around the room, denies any shortness of breath with exertion. Has been tolerating diuresis without issues. No other acute concerns this morning. Objective Data Objective Data Vital Signs: Vital Signs Temp Pulse Resp BP Pulse Ox O2 Del Method O2 Flow Rate 97.7 F L 84 16 110/57 L 94 Room Air 92 02/12/24 09:03 02/12/24 09:12 02/12/24 09:03 02/12/24 09:03 02/12/24 09:03 02/12/24 09:04 02/11/24 15:57 Oxygen Flow Rate (L/min) 92 Oxygen Delivery Method Room Air Weight: 122.9 kg Body Mass Index (BMI) 37.8 Intake & Output: Intake and Output for Last 24 Hours 02/10/24 02/11/24 02/12/24 23:59 23:59 23:59 Intake Total 885.98 / 885.98 739.32 / 739.32 Output Total 4950 / 4950 3250 / 3250 1700 / 1700 Balance -4064.02 / -4064.02 -2510.68 / -2510.68 -1700 / -1700 Lab / Micro Data 02/09/24 04:50 02/12/24 06:05 Labs: Laboratory Results - last 24 hr 02/12/24 06:05: PT 24.8 H, INR 2.3, Sodium 137, Potassium 3.5, Chloride 98, Carbon Dioxide 36.0 H, Anion Gap 3 L, BUN 15, Creatinine 0.99, Estim Creat ClearCalc 87.35, Est GFR (MDRD) Af Amer 95, Est GFR (MDRD) Non-Af 78, BUN/Creatinine Ratio 15.1, Glucose 98, Calcium 9.6 Micro: Microbiology 02/07/24 18:44 Stool Stool Occult Blood (JONATHAN) - Final Occult Blood Positive Rhythm Strip Rhythm Strip: A-fib Rate: 84 Ectopy: None Physical Exam Const alert, oriented x3 and no apparent distress Constitutional Narrative: Elderly male, morbidly obese, sitting up comfortably in bedside, conversing normally, no acute distress. General Appearance: cooperative and comfortable HEENT normocephalic, head/scalp atraumatic, hearing grossly normal bilaterally, nasal mucous membranes and turbinates normal and moist oral mucous membranes Eyes PERRL, EOMs intact bilaterally and conjunctivae normal Neck full ROM Chest inspection of chest normal Resp normal respiratory effort, normal air movement, no use of accessory muscles and clear to auscultation bilaterally Cardio regular rate, regular rhythm, no murmurs and peripheral pulses 2+ throughout GI normal to inspection, nondistended, normoactive bowel sounds, soft to palpation,non-tender and non-distended Narrative: Severe scrotal edema noted, mildly improved from admission. Catheter in place, draining clear pale yellow urine. No suprapubic tenderness noted. Back/Spine normal ROM Extremity full ROM Extremity Narrative: Lymphedematous changes noted in lower extremities bilaterally. Lower extremity swelling improved from admission. Ulcers on right lateral gregorio and left lower leg evaluated on 02/11, noninfectious appearing, stable from previous. Neuro moves all extremities and no focal motor deficits Speech: speech normal Psych mental status grossly normal Assessment & Plan Assessment/Plan (1) CHF exacerbation: (2) Scrotal edema: PLAN: Plan Patient is a 73-year-old male who presented to [facility] ED on 02/07/2024 with worsening lower extremity edema and scrotal edema. 1. Acute HFpEF, moderate pulmonary hypertension ? Presumed secondary to nonadherence to home Lasix. Marked lower extremity edema and scrotal edema on admission. Noted to be approximate 10 kg heavier than on last hospitalization back in 2021. BNP 974. Chest x-ray showed vascular congestion with small left-sided effusion. Patient reported dyspnea onexertion but notably with good oxygen saturations on room air at rest on admission. ? Last echo on 09/07/2022 showed EF 60%, normal LV function, no diastolic dysfunction noted, no regional wall motion abnormalities. ? Repeat echo on 02/07 shows EF 65 to 70%, concentric LV hypertrophy, moderately enlarged LA, mildly enlarged RA, normal RV size and function, moderate to severeaortic stenosis. ? Cardiology evaluated on 02/08. Noted that aortic stenosis is a newer finding and likely need to be further evaluated with a heart cath but this can be done on an outpatient basis. Recommended continued diuresis, signed off. ? Continue Lasix drip at 10 ml/hr. Continues to have great urine output and kidney function remains stable. Continue to monitor daily BMP and urine output. Continue home Lopressor and lisinopril. 2. BPH with obstructive symptoms ? Patient on home terazosin. Noted worsening urinary frequency with significanthesitation and difficulty with emptying his bladder for 1 to 2 months prior to this admission. ? Lima catheter placed in the ED, can continue for now as patient remains on Lasix drip. Continue tamsulosin. Will plan to discontinue Lima with void trial prior to discharge. 3. Debility ? PT/OT/case management following. Patient qualifies for home health care but is currently declining as he has had home health care services in the past and does not feel like he needs them after this discharge. 4. Scrotal edema ? Presumed secondary to volume overload from CHF exacerbation. Treated with IV diuresis as noted above. No clinical evidence of scrotal infection. Elevate scrotum as able. 5. Venous stasis ulcers ? No evidence of infection at this time. Wound care consulted. 6. Aortic stenosis ? Echo on admit showed moderate to severe aortic valve stenosis with peak gradient 82 mmHg, mean gradient 45 mmHg. No aortic stenosis noted on last echo in 2021. Cardiology evaluated, recs as noted above. Chronic medical conditions: ? Morbid obesity: BMI 43 on admit. Complicates hospital course, care and prognosis. ? A-fib: Rate controlled. INR therapeutic on admission. Continue home Lopressor and warfarin. ? History of vertebral fractures with chronic back pain: Follows with Dr. Meredith pain management. On pain control at home with oxycodone and acetaminophen,continue these while inpatient. Lidocaine patch ordered as well. DVT prophylaxis: Warfarin CODE STATUS: Full code, verified Expected disposition: Home, 2 to 3 days Total clinical time spent by myself addressing the patient's medical issues, reviewing all the data, and collaborating with patient's care team: 35 minutes. Charges/Coding Visit Charges Inpatient E&M: 82869 Subs Hosp L2 02/12/24 1320 <Electronically signed by Bharat Wilkins DO> Cosigner Signature (if applicable): CC: ~ Signed [facility] Work Phone: 1(833) 441-285503-31-2024 Progress note Author Brady Kemp [facility] February 11, 2024 11:44am Note Date/Time February 11, 2024 11: 44am [facility] Medical Records Department [address] [place] [address] Progress Note - Hospitalist 02/11/24 1141 MR#: [id number] Acct: [id number] Name: ANDER MONTEIRO Rep #:[id number] : 1950 73 From: Brady Kemp DO PCP: [facility] Status:ADM IN Location: [place] [address] Reason for Visit Reason for Visit: Diagnoses Nonrheumatic aortic (valve) stenosis (02/07/24) Longstanding persistent atrial fibrillation (02/07/24) Heart failure, unspecified (02/07/24) Other specified disorders of the male genital organs (02/07/24) Subjective Subjective Patient was seen and examined today, potassium was slightly low today I gave himsome oral potassium. Patient continues to diurese well on IV Lasix drip. Objective Data Objective Data Vital Signs: Vital Signs Temp Pulse Resp BP Pulse Ox O2 Del Method O2 Flow Rate 97.4 F L 61 18 102/62 92 Room Air 92 02/11/24 09:15 02/11/24 09:15 02/11/24 09:15 02/11/24 09:15 02/11/24 09:15 02/11/24 09:15 02/11/24 08:00 Oxygen Flow Rate (L/min) 92 Oxygen Delivery Method Room Air Weight: 127.5 kg Body Mass Index (BMI) 39.2 Intake & Output: Intake and Output for Last 24 Hours 02/09/24 02/10/24 02/11/24 23:59 23:59 23:59 Intake Total 423.33 / 423.33 885.98 / 885.98 319.32 / 319.32 Output Total 8700 / 8700 4950 / 4950 1750 / 1750 Balance -8276.67 / -8276.67 -4064.02 / -4064.02 -1430.68 / -1430.68 Lab / Micro Data 02/09/24 04:50 02/11/24 05:09 Labs: Laboratory Results - last 24 hr 02/11/24 05:09: PT 25.1 H, INR 2.3, Sodium 139, Potassium 3.2 L, Chloride 99, Carbon Dioxide 34.0 H, Anion Gap 6, BUN 15, Creatinine 0.89, Estim Creat Clear Calc 99.06, Est GFR (MDRD) Af Amer 107, Est GFR (MDRD) Non-Af 89, BUN/CreatinineRatio 16.9, Glucose 104, Calcium 8.9, Phosphorus 3.2, Magnesium 2.0 Micro: Microbiology 02/07/24 18:44 Stool Stool Occult Blood (JONATHAN) - Final Occult Blood Positive Rhythm Strip Rhythm Strip: A-fib Rate: 84 Ectopy: None Physical Exam Narrative alert and no apparent distress Constitutional Narrative: Patient appears older than his stated age, he is morbidly obese General Appearance: cooperative, well kempt and well developed Orientation / Consciousness: awake, oriented to person and oriented to place, patient has significant scrotal edema HEENT normocephalic, head/scalp atraumatic and moist oral mucous membranes Eyes PERRL, EOMs intact bilaterally and conjunctivae normal Neck supple, no JVD, thyroid normal and no carotid bruits General: trachea midline Resp normal respiratory effort and clear to auscultation bilaterally Auscultation: Negative for rales, rhonchi or wheezes Cardio S1 normal heart sound, S2 normal heart sound, no murmurs, no rub and no gallops Cardio Narrative: Heart rate and rhythm is irregular GI normal to inspection, nondistended, normoactive bowel sounds, soft to palpation,non-tender and non-distended Extremity Extremity Narrative: Patient has significant lower leg edema bilaterally, his legs are wrapped with Kwaku wraps Neuro CN's II-XII intact bilaterally, no focal motor deficits and no sensory deficits noted Sensorium / Orientation: awake and alert Speech: speech normal Psych affect normal Assessment & Plan Assessment/Plan (1) Longstanding persistent atrial fibrillation: PLAN: Plan 1. Acute on chronic diastolic congestive heart failure-continue IV diuresis with Lasix, patient has lost approximately 10 kg of weight since admission #2 moderate pulmonary hypertension-complicates care, management, recovery, and prognosis, patient is on IV Lasix #3 morbid obesity-complicates care, management, recovery, and prognosis #4 severe aortic stenosis-complicates care, management, recovery, and prognosis #5 permanent atrial fibrillation-patient is currently on Coumadin and rate limiting agents, patient will be monitored #5 hypokalemia-patient was given supplemental potassium today, BMP will be repeated tomorrow Total clinical time spent by myself addressing the patient's medical issues, reviewing all of his data, and collaborating with patient's care team: 35 minutes Charges/Coding Visit Charges Inpatient E&M: 91827 Subs Hosp L2 02/11/24 1144 <Electronically signed by Brady Kemp DO> Cosigner Signature (if applicable): CC: ~ Signed [facility] Work Phone: 1(934) 683-217003-30-2024 Progress note Author Brady Kemp [facility] February 10, 2024 2:17pm Note Date/Time February 10, 2024 2:1 7pm [facility] Medical Records Department [address] [place] [address] Progress Note - Hospitalist 02/10/24 1414 MR#: [id number] Acct: [id number] Name: ANDER MONTEIRO Rep #:[id number] : 1950 73 From: Brady Kemp DO PCP: [facility] Status:ADM IN Location: [place] [address] Reason for Visit Reason for Visit: Diagnoses Nonrheumatic aortic (valve) stenosis (02/07/24) Longstanding persistent atrial fibrillation (02/07/24) Heart failure, unspecified (02/07/24) Other specified disorders of the male genital organs (02/07/24) Subjective Subjective Patient was seen and examined today, I talked with his son who was in the room at the time of my examination. Patient's blood pressure was low this morning and I temporarily stopped his Lasix drip, I went back and stopped his Cardura and lisinopril-I do not think the patient needs these medications. Patient has no complaints of any shortness of breath. Objective Data Objective Data Vital Signs: Vital Signs Temp Pulse Resp BP Pulse Ox O2 Del Method 97.6 F L 75 18 101/64 92 CPAP 02/10/24 12:22 02/10/24 12:22 02/10/24 12:22 02/10/24 12:22 02/10/24 12:22 02/10/24 13:01 Oxygen Delivery Method CPAP Weight: 134.1 kg Body Mass Index (BMI) 41.2 Intake & Output: Intake and Output for Last 24 Hours 02/08/24 02/09/24 02/10/24 23:59 23:59 23:59 Intake Total 1290 / 1440 423.33 / 423.33 500 / 500 Output Total 5300 / 7500 8700 / 8700 3100 / 3100 Balance -4010 / -6060 -8276.67 / -8276.67 -2600 / -2600 Lab / Micro Data 02/09/24 04:50 02/10/24 06:15 Labs: Laboratory Results - last 24 hr 02/10/24 06:15: PT 25.8 H, INR 2.4, Sodium 141, Potassium 3.4 L, Chloride 101, Carbon Dioxide 35.0 H, Anion Gap 5, BUN 13, Creatinine 0.92, Estim Creat Clear Calc 98.46, Est GFR (MDRD) Af Amer 104, Est GFR (MDRD) Non-Af 86, BUN/CreatinineRatio 14.2, Glucose 92, Calcium 9.0 Micro: Microbiology 02/07/24 18:44 Stool Stool Occult Blood (JONATHAN) - Final Occult Blood Positive Rhythm Strip Rhythm Strip: A-fib Rate: 84 Ectopy: None Physical Exam Narrative alert and no apparent distress Constitutional Narrative: Patient appears older than his stated age, he is morbidly obese General Appearance: cooperative, well kempt and well developed Orientation / Consciousness: awake, oriented to person and oriented to place HEENT normocephalic, head/scalp atraumatic and moist oral mucous membranes Eyes PERRL, EOMs intact bilaterally and conjunctivae normal Neck supple, no JVD, thyroid normal and no carotid bruits General: trachea midline Resp normal respiratory effort and clear to auscultation bilaterally Auscultation: Negative for rales, rhonchi or wheezes Cardio S1 normal heart sound, S2 normal heart sound, no murmurs, no rub and no gallops Cardio Narrative: Heart rate and rhythm is irregular GI normal to inspection, nondistended, normoactive bowel sounds, soft to palpation,non-tender and non-distended Extremity Extremity Narrative: Patient has significant lower leg edema bilaterally, his legs are wrapped with Kwaku wraps Neuro CN's II-XII intact bilaterally, no focal motor deficits and no sensory deficits noted Sensorium / Orientation: awake and alert Speech: speech normal Psych affect normal Assessment & Plan Assessment/Plan (1) Longstanding persistent atrial fibrillation: PLAN: Plan 1. Acute on chronic diastolic congestive heart failure-due to the patient's lowblood pressure today, I have elected to stop his lisinopril, I also stopped his Cardura (patient is on Flomax already), Lasix drip was restarted #2 moderate pulmonary hypertension-complicates care, management, recovery, and prognosis, patient is on IV Lasix #3 morbid obesity-complicates care, management, recovery, and prognosis #4 severe aortic stenosis-complicates care, management, recovery, and prognosis #5 permanent atrial fibrillation-patient is currently on Coumadin and rate limiting agents, patient will be monitored #5 hypokalemia-I will increase the patient's potassium supplementation. Potassium today was 3.4. Total clinical time spent by myself addressing the patient's medical issues, reviewing all of his data, and collaborating with patient's care team: 35 minutes Charges/Coding Visit Charges Inpatient E&M: 80271 Subs Hosp L2 02/10/24 1417 <Electronically signed by Brady Kemp DO> Cosigner Signature (if applicable): CC: ~ Signed [facility] Work Phone: 1(262) 523-350003-29-2024 Progress note Author [facility] February 09, 2024 8:13pm Note Date/Time February 09, 2024 8:0 7pm [facility] Medical Records Department [address] [place] [address] Progress Note - Hospitalist 02/09/242005 MR#: [id number] Acct: [id number] Name: ANDER MONTEIRO Rep #:[id number] : 1950 73 From: Brady Kemp DO PCP: [facility] Status:ADM IN Location: [place] [address] 1 Reason for Visit Reason for Visit: Diagnoses Nonrheumatic aortic (valve) stenosis (02/07/24) Longstanding persistent atrial fibrillation (02/07/24) Heart failure, unspecified (02/07/24) Other specified disorders of the male genital organs (02/07/24) Subjective Subjective Patient was seen and examined today, I talked briefly with cardiology about his care. He remains on a Lasix drip at this time, potassium was slightly low at 3.2 today Objective Data Objective Data Vital Signs: Vital Signs Temp Pulse Resp BP Pulse Ox O2 Del Method 97.7 F L 83 16 113/69 96 Room Air 02/09/24 19:57 02/09/24 19:57 02/09/24 19:57 02/09/24 19:57 02/09/24 19:57 02/09/24 19:57 Oxygen Delivery Method Room Air Weight: 135.4 kg Body Mass Index (BMI) 41.6 Intake & Output: Intake and Output for Last 24 Hours 02/07/24 02/08/24 02/09/24 23:59 23:59 23:59 Intake Total 240 / 240 1290 / 1440 423.33 / 423.33 Output Total 1500 / 1500 5300 / 7500 7450 / 7450 Balance -1260 / -1260 -4010 / -6060 -7026.67 / -7026.67 Lab / Micro Data 02/09/24 04:50 02/09/24 04:50 Labs: Laboratory Results - last 24 hr 02/09/24 04:50: WBC 5.7, RBC 3.70 L, Hgb 10.6 L, Hct 33.1 L, MCV 89.5, MCH 28.6,MCHC 32.0, RDW Std Deviation 54.9 H, RDW Coeff of Medardo 16.9 H, Plt Count 162, MPV10.6, PT 27.4 H, INR 2.6, Sodium 140, Potassium 3.2 L, Chloride 105, Carbon Dioxide 31.0, Anion Gap 4 L, BUN 13, Creatinine 0.92, Estim Creat Clear Calc 98.98, Est GFR (MDRD) Af Amer 103, Est GFR (MDRD) Non-Af 86, BUN/Creatinine Ratio 14.1, Glucose 101, Calcium 8.6 Micro: Microbiology 02/07/24 18:44 Stool Stool Occult Blood (JONATHAN) - Final Occult Blood Positive Rhythm Strip Rhythm Strip: A-fib Rate: 84 Ectopy: None Physical Exam Const alert and no apparent distress Constitutional Narrative: Patient appears older than his stated age, he is morbidly obese General Appearance: cooperative, well kempt and well developed Orientation / Consciousness: awake, oriented to person and oriented to place HEENT normocephalic, head/scalp atraumatic and moist oral mucous membranes Eyes PERRL, EOMs intact bilaterally and conjunctivae normal Neck supple, no JVD, thyroid normal and no carotid bruits General: trachea midline Resp normal respiratory effort and clear to auscultation bilaterally Auscultation: Negative for rales, rhonchi or wheezes Cardio S1 normal heart sound, S2 normal heart sound, no murmurs, no rub and no gallops Cardio Narrative: Heart rate and rhythm is irregular GI normal to inspection, nondistended, normoactive bowel sounds, soft to palpation,non-tender and non-distended Extremity Extremity Narrative: Patient has significant lower leg edema bilaterally, his legs are wrapped with Kwaku wraps Neuro CN's II-XII intact bilaterally, no focal motor deficits and no sensory deficits noted Sensorium / Orientation: awake and alert Speech: speech normal Psych affect normal Assessment & Plan Assessment/Plan (1) Longstanding persistent atrial fibrillation: PLAN: Plan 1. Acute on chronic diastolic congestive heart failure-patient remains on IV Lasix at this time, labs will be monitored #2 moderate pulmonary hypertension-complicates care, management, recovery, and prognosis, patient is on IV Lasix #3 morbid obesity-complicates care, management, recovery, and prognosis #4 severe aortic stenosis-complicates care, management, recovery, and prognosis #5 permanent atrial fibrillation-patient is currently on Coumadin and rate limiting agents, patient will be monitored #5 hypokalemia-I placed the patient on oral potassium, labs will be rechecked Total clinical time spent by myself addressing the patient's medical issues, reviewing all of his data, and collaborating with patient's care team: 50 minutes Charges/Coding Visit Charges Inpatient E&M: 90620 Subs Hosp L3 02/09/242012 <Electronically signed by Brady Kemp DO> Cosigner Signature (if applicable): CC: ~ Signed [facility] Work Phone: 1(509) 731-624703-29-2024 Consult note Author Osiris Yip [facility] February 09, 2024 3:30pm Note Date/Time February 09, 2024 2:4 3pm [facility] Medical Records Department [address] [place] [address] Consultation - Cardiology 02/09/24 1432 MR#: [id number] Acct: [id number] Name: ANDER MONTEIRO Rep #:[id number] : 1950 73 From: Osiris Yip MD PCP: [facility] Status:[facility] Documented by User: MATT Palmer 02/09/24 14:45 Assessment & Plan Assessment/Plan (1) Longstanding persistent atrial fibrillation: (2) Aortic stenosis: (3) CHF exacerbation: PLAN: Plan * Patient will continue with his warfarin and metoprolol for his atrial fibrillation. His rate is controlled. * Patient's aortic stenosis appears to be a newer finding for patient. This will likely need to be further evaluated with a heart cath however this could be done on an outpatient basis. For now recommend that we continue to diurese him. When able would switch him over to oral Lasix. Would like to follow-up with patient on an outpatient basis. Cardiology will sign off for now. If any additional input is needed please call. HPI Consult Data Date of Consult: 02/09/24 HPI Narrative HPI Narrative: ANDER MONTEIRO, is a 73 M who presented to [facility] emergency room on 02/07/2024 with significant lower extremity edema. Patient states that his symptoms have started over the last few weeks although he does state that it may be longer than that. He does have a history of atrial fibrillation, hypertension, COPD and a history of congestive heart failure. [facility] and does not have a golf cart maker. He is not aware of any previous murmur that he has had. We were consulted because he did have an echocardiogram done which did demonstrate an ejection fraction of 65% with moderate to severe aortic stenosis. When compared to previous echocardiogram in 2021 this was not noted. Patient does have more shortness of breath with his lower extremity edema. He does not have any chest pain. He is not aware of his atrial fibrillation. He iscompliant with his CPAP. He does not have any lightheadedness or dizziness. Hedoes not have any syncope. [facility] Medical History (Updated 02/09/24 @ 14:41 by MATT Palmer) Afib Aortic stenosis Congestive heart failure (CHF) COPD (chronic obstructive pulmonary disease) Former smoker Hypertension Longstanding persistent atrial fibrillation Home Medications lisinopril 10 mg tablet 10 mg PO QHS blood pressure 09/06/22 [History Last Taken Unknown] metoprolol tartrate 25 mg tablet 25 mg PO BID blood pressure 09/06/22 [History Last Taken Unknown] simvastatin 10 mg tablet 10 mg PO QHS cholesterol 09/06/22 [History Last Taken Unknown] terazosin 2 mg capsule 2 mg PO QHS prostate 09/06/22 [History Last Taken Unknown] warfarin 5 mg tablet 5 mg PO DAILY blood thinner 09/06/22 [History Last Taken Unknown] furosemide 20 mg tablet (Lasix) 20 mg PO DAILY #20 tabs 09/08/22 [Rx Last Taken Unknown] lidocaine 5 % topical patch 1 patch topical DAILY pain #15 ea 09/08/22 [Rx Last Taken Unknown] oxycodone 10 mg tablet 10 mg PO Q8H PRN pain 1 week #21 tabs 09/08/22 [Rx Last Taken Unknown] oxycodone 5 mg tablet 10 mg (2 x 5 mg) PO Q8H PRN pain 1 week #30 tabs 09/08/22 [Rx Last Taken Unknown] acetaminophen 500 mg tablet 1,000 mg PO Q8 PRN pain 02/08/24 [History Last Taken Unknown] albuterol sulfate 90 mcg/actuation aerosol inhaler 1 puff inhalation Q4H PRN SOB02/08/24 [History Last Taken Unknown] tiotropium 2.5 mcg-olodaterol 2.5 mcg/actuation mist for inhalation (Stiolto Respimat) 1 puff inhalation BID breathing 02/08/24 [History Last Taken Unknown] Allergy/AdvReac Type Severity Reaction Status Date / Time pramoxine Allergy Rash Verified 02/07/24 17:06 Social History Smoking Status: Former smoker ROS Constitutional Constitutional: Reports fatigue; Denies frequent falls or headache(s) Eyes Eyes: Denies acute decrease in peripheral vision, blurry vision or change in vision ENT HEENT: Denies dizziness or epistaxis Cardiovascular Cardiovascular: Reports as per HPI and chest pain at rest Respiratory/Chest Respiratory/Chest: Reports as per HPI Gastrointestinal Gastrointestinal: Denies abdominal pain, coffee ground emesis, heartburn or nausea Genitourinary Genitourinary: Denies hematuria Musculoskeletal Musculoskeletal: Reports difficulty walking, muscle weakness and myalgias Neurologic Neurologic: Denies abnormal gait, abnormal speech, memory loss, paresthesias or weakness Physical Exam Const alert, oriented x3 and no apparent distress Constitutional Narrative: Elderly male, morbidly obese, mildly fatigued appearing, otherwise sitting up comfortably in bed, conversing normally, no acute distress. General Appearance: cooperative and comfortable HEENT normocephalic, head/scalp atraumatic, hearing grossly normal bilaterally and moist oral mucous membranes Eyes PERRL, EOMs intact bilaterally and conjunctivae normal Neck full ROM Chest inspection of chest normal Resp normal respiratory effort, normal air movement, no use of accessory muscles and clear to auscultation bilaterally Cardio Rate: regular rate Rhythm: abnormal rhythm irregularly irregular Heart Sounds: murmur systolic III/ harsh GI normal to inspection, nondistended, normoactive bowel sounds, soft to palpation,non-tender and non-distended Extremity Extremity Narrative: Edematous, wearing wraps Neuro moves all extremities and no focal motor deficits Speech: speech normal Psych mental status grossly normal Risk Stratification Risk Stratification Applicable: No Objective Data Vital Signs: Vital Signs Temp Pulse Resp BP Pulse Ox O2 Del Method 97.1 F L 85 16 98/67 94 Room Air 02/09/24 09:49 02/09/24 09:49 02/09/24 09:49 02/09/24 09:49 02/09/24 09:49 02/09/24 09:49 Oxygen Delivery Method Room Air Weight: 298 lb 8.094 oz Body Mass Index (BMI) 41.6 Intake & Output: Intake and Output for Last 24 Hours 02/07/24 02/08/24 02/09/24 23:59 23:59 23:59 Intake Total 240 / 240 1290 / 1440 183.33 / 183.33 Output Total 1500 / 1500 5300 / 7500 6050 / 6050 Balance -1260 / -1260 -4010 / -6060 -5866.67 / -5866.67 Lab / Micro Data 02/09/24 04:50 02/09/24 04:50 Labs: Laboratory Results - last 24 hr 02/09/24 04:50: WBC 5.7, RBC 3.70 L, Hgb 10.6 L, Hct 33.1 L, MCV 89.5, MCH 28.6,MCHC 32.0, RDW Std Deviation 54.9 H, RDW Coeff of Medardo 16.9 H, Plt Count 162, MPV10.6, PT 27.4 H, INR 2.6, Sodium 140, Potassium 3.2 L, Chloride 105, Carbon Dioxide 31.0, Anion Gap 4 L, BUN 13, Creatinine 0.92, Estim Creat Clear Calc 98.98, Est GFR (MDRD) Af Amer 103, Est GFR (MDRD) Non-Af 86, BUN/Creatinine Ratio 14.1, Glucose 101, Calcium 8.6 Rhythm Strip Rhythm Strip: A-fib Rate: 84 Ectopy: None Cardiology Labs/Tests 02/09/24 04:50: WBC 5.7, RBC 3.70 L, Hgb 10.6 L, Hct 33.1 L, MCV 89.5, MCH 28.6,MCHC 32.0, Plt Count 162, MPV 10.6, PT 27.4 H, INR 2.6, Sodium 140, Potassium 3.2 L, Chloride 105, Carbon Dioxide 31.0, Anion Gap 4 L, BUN 13, Creatinine 0.92, Est GFR (MDRD) Af Amer 103, Est GFR (MDRD) Non-Af 86, BUN/Creatinine Ratio14.1, Glucose 101, Calcium 8.6 Rhythm: EKG: Afib Radiography Diagnostic Testing: Radiology Impression Echocardiogram 02/07/24 20:17 Interpretation Summary The estimated ejection fraction is 65-70 %. Peak aortic valve gradient 82 mmHg. Mean aortic valve gradient 45 mmHg. Moderate to Severe AV stenosis Ordering Physician: Aj Randolph Referring Physician: [facility] Performed By: Kait Renner RDCS Documented by User: Dr. Osiris Yip MD 02/09/24 15:30 Assessment & Plan Assessment/Plan (1) Longstanding persistent atrial fibrillation: (2) Aortic stenosis: (3) CHF exacerbation: PLAN: Plan * Patient will continue with his warfarin and metoprolol for his atrial fibrillation. His rate is controlled. * Patient's aortic stenosis appears to be a newer finding for patient. This will likely need to be further evaluated with a heart cath however this could be done on an outpatient basis. For now recommend that we continue to diurese him. When able would switch him over to oral Lasix. Cardiac care plan and recommendations; Would like to follow-up with patient on an outpatient basis. Review of the transthoracic echocardiogram showed diffuse calcific aortic valve stenosis which is moderate to severe Discrepancy noted in the aortic valve area and maximum and mean gradient With aortic valve area calculated 1.2 and maximum gradient 85 with a mean gradient of 45 Further evaluation with recommend possible left and right heart catheterization His presentation was shortness of breath his LV function is still preserved and with left ventricular hypertrophy. This can be set up as an outpatient with Dr. Laird. Cardiology will sign off for now. If any additional input is needed please call. Osiris Yip MD,[facility] HPI Consult Data Date of Consult: 02/09/24 [facility] Medical History (Updated 02/09/24 @ 14:41 by Oscar GUTIERREZ, PA) Afib Aortic stenosis Congestive heart failure (CHF) COPD (chronic obstructive pulmonary disease) Former smoker Hypertension Longstanding persistent atrial fibrillation Home Medications lisinopril 10 mg tablet 10 mg PO QHS blood pressure 09/06/22 [History Last Taken Unknown] metoprolol tartrate 25 mg tablet 25 mg PO BID blood pressure 09/06/22 [History Last Taken Unknown] simvastatin 10 mg tablet 10 mg PO QHS cholesterol 09/06/22 [History Last Taken Unknown] terazosin 2 mg capsule 2 mg PO QHS prostate 09/06/22 [History Last Taken Unknown] warfarin 5 mg tablet 5 mg PO DAILY blood thinner 09/06/22 [History Last Taken Unknown] furosemide 20 mg tablet (Lasix) 20 mg PO DAILY #20 tabs 09/08/22 [Rx Last Taken Unknown] lidocaine 5 % topical patch 1 patch topical DAILY pain #15 ea 09/08/22 [Rx Last Taken Unknown] oxycodone 10 mg tablet 10 mg PO Q8H PRN pain 1 week #21 tabs 09/08/22 [Rx Last Taken Unknown] oxycodone 5 mg tablet 10 mg (2 x 5 mg) PO Q8H PRN pain 1 week #30 tabs 09/08/22 [Rx Last Taken Unknown] acetaminophen 500 mg tablet 1,000 mg PO Q8 PRN pain 02/08/24 [History Last Taken Unknown] albuterol sulfate 90 mcg/actuation aerosol inhaler 1 puff inhalation Q4H PRN SOB02/08/24 [History Last Taken Unknown] tiotropium 2.5 mcg-olodaterol 2.5 mcg/actuation mist for inhalation (Stiolto Respimat) 1 puff inhalation BID breathing 02/08/24 [History Last Taken Unknown] Allergy/AdvReac Type Severity Reaction Status Date / Time pramoxine Allergy Rash Verified 02/07/24 17:06 Social History Smoking Status: Former smoker Lab / Micro Data 02/09/24 04:50 02/09/24 04:50 02/09/24 1530 <Electronically signed by Osiris Yip MD> Cosigner Signature (if applicable): 02/09/24 1445 <Electronically signed by Oscar GUTIERREZ PA> CC: Dr. Bharat Wilkins DO; Dr. Aj Randolph DO; Dr. Osiris Yip MD; [facility]~ Signed [facility] Work Phone: 1(411) 726-898503-28-2024 Progress note Author Bharat Wilkins [facility] February 08, 2024 5:32pm Note Date/Time February 08, 2024 1:2 2pm [facility] Medical Records Department [address] [place] [id number] Progress Note - Hospitalist 02/08/24 1322 MR#: [id number] Acct: [id number] Name: ANDER MONTEIRO Rep #:[id number] : 1950 73 From: Bharat narvaez DO PCP: [facility] Status:ADM IN Location: [place] [address] 1 Reason for Visit Reason for Visit: Diagnoses Heart failure, unspecified (02/07/24) Subjective Subjective Patient admitted yesterday for worsening lower extremity edema and severe scrotal edema. Had known history of CHF but had stopped his diuretics for a fewmonths due to frequent urination with only small urine volumes each time. He was noted to be about 10 kg up from a weight standpoint since he was last here in 2021. Lima catheter was placed on admission and patient was started on a Lasix drip at 10 mL/h. Patient seen at bedside this morning, son present. Patient was sitting up fairly comfortably in bed, conversing normally, in no acute distress. He was breathing comfortably on room air with no increased work of breathing noted. Patient states has been tolerating the Lima catheter without issue and has beentold by nursing staff that he has had significant urine output while on the Lasix drip. Patient states that he feels about the same today as yesterday. Continues to have severe scrotal edema and he has mild discomfort at rest. Has known history of low back pain and states that he feels fairly uncomfortable sitting in bed due to back discomfort. They noted that the echocardiogram had just been completed prior to my arrival. Patient otherwise denied any fevers orchills, abdominal pain or discomfort. No other acute concerns this time. Objective Data Objective Data Vital Signs: Vital Signs Temp Pulse Resp BP Pulse Ox O2 Del Method 97.8 F 83 19 H 94/59 L 92 Room Air 02/08/24 10:19 02/08/24 10:19 02/08/24 10:19 02/08/24 10:19 02/08/24 10:19 02/08/24 10:33 Oxygen Delivery Method Room Air Weight: 142.2 kg Body Mass Index (BMI) 43.7 Intake & Output: Intake and Output for Last 24 Hours 02/06/24 02/07/24 02/08/24 23:59 23:59 23:59 Intake Total 240 / 240 240 / 240 Output Total 1500 / 1500 1600 / 1600 Balance -1260 / -1260 -1360 / -1360 Lab / Micro Data 02/08/24 06:45 02/08/24 06:40 Labs: Laboratory Results - last 24 hr 02/07/24 17:38: WBC 5.6, RBC 4.08 L, Hgb 11.4 L, Hct 36.9 L, MCV 90.4, MCH 27.9,MCHC 30.9 L, RDW Std Deviation 55.8 H, RDW Coeff of Medardo 16.9 H, Plt Count 175, MPV 10.9, Immature Gran % (Auto) 0.200, Neut % (Auto) 64.4, Lymph % (Auto) 18.5 L, [place] % (Auto) 11.7 H, Eos % (Auto) 3.4, Baso % (Auto) 1.8 H, Absolute Neuts (auto) 3.6, Absolute Lymphs (auto) 1.04, Nucleated RBC % 0, PT 27.8 H, INR 2.6, Sodium 138, Potassium 4.3, Chloride 105, Carbon Dioxide 29.0, Anion Gap 4 L, BUN15, Creatinine 0.85, Estim Creat Clear Calc 112.59, Est GFR (MDRD) Af Amer 113, Est GFR (MDRD) Non-Af 93, BUN/Creatinine Ratio 17.6, Glucose 98, Calcium 8.9, B-Natriuretic Peptide 974.9 H 02/07/24 18:20: Urine Color Stephanie, Urine Clarity Clear, Urine pH 5.0, Ur Specific Broughton 1.030, Urine Protein 15 H, Urine Glucose (UA) Normal, Urine Ketones 5 H, Urine Occult Blood 25 H, Urine Nitrite Negative, Urine Bilirubin 3 H, Urine Urobilinogen 8 H, Ur Leukocyte Esterase 25 H, Urine RBC 0 SEEN, Urine WBC 0 SEEN, Ur Squamous Epith Cells 0-5 SEEN, Calcium Oxalate Crystal 2+, Urine Bacteria 0 SEEN, Hyaline Casts 0-5 SEEN, Urine Mucus 0 SEEN 02/08/24 06:40: Sodium 140, Potassium 3.5, Chloride 107, Carbon Dioxide 27.0, Anion Gap 6, BUN 14, Creatinine 0.81, Estim Creat Clear Calc 115.50, Est GFR (MDRD) Af Amer 120, Est GFR (MDRD) Non-Af 99, BUN/Creatinine Ratio 17.3, [id number], Calcium 8.5, Triglycerides 56, Cholesterol 76, LDL Cholesterol 19, VLDL Cholesterol 11, HDL Cholesterol 46 02/08/24 06:45: WBC 5.4, RBC 3.90 L, Hgb 11.2 L, Hct 34.9 L, MCV 89.5, MCH 28.7,MCHC 32.1, RDW Std Deviation 55.0 H, RDW Coeff of Medardo 16.9 H, Plt Count 173, MPV11.1, Immature Gran % (Auto) 0.200, Neut % (Auto) 65.4, Lymph % (Auto) 14.9 L, [place] % (Auto) 12.8 H, Eos % (Auto) 5.0, Baso % (Auto) 1.7 H, Absolute Neuts (auto) 3.5, Absolute Lymphs (auto) 0.80 L, Nucleated RBC % 0, PT 27.1 H, INR 2.5, Vitamin D 25-Hydroxy 75.8 Micro: Microbiology 02/07/24 18:44 Stool Stool Occult Blood (JONATHAN) - Final Occult Blood Positive Radiography Diagnostic Testing: Radiology Impression Chest X-Ray 02/07/24 18:25 IMPRESSION: Vascular congestion with a small left-sided effusion and left basilar atelectasis. Electronically Signed: Giorgio Cummings MD at 20:13 EDT , Rhythm Strip Rhythm Strip: A-fib Rate: 84 Ectopy: None Physical Exam Const alert, oriented x3 and no apparent distress Constitutional Narrative: Elderly male, morbidly obese, mildly fatigued appearing, otherwise sitting up comfortably in bed, conversing normally, no acute distress. General Appearance: cooperative and comfortable HEENT normocephalic, head/scalp atraumatic, hearing grossly normal bilaterally, nasal mucous membranes and turbinates normal and moist oral mucous membranes Eyes PERRL, EOMs intact bilaterally and conjunctivae normal Neck full ROM Chest inspection of chest normal Resp normal respiratory effort, normal air movement, no use of accessory muscles and clear to auscultation bilaterally Cardio regular rate, regular rhythm, no murmurs and peripheral pulses 2+ throughout GI normal to inspection, nondistended, normoactive bowel sounds, soft to palpation,non-tender and non-distended Narrative: Severe scrotal edema noted. Catheter in place, draining clear pale yellow urine. No suprapubic tenderness noted. Back/Spine normal ROM Extremity full ROM Extremity Narrative: Lymphedematous changes noted in lower extremities bilaterally. Does have some decompensated skin on right lateral gregorio. Also has venous stasis ulcer on left lateral leg above the lateral malleolus without erythema or discharge. Neuro moves all extremities and no focal motor deficits Speech: speech normal Psych mental status grossly normal Assessment & Plan Assessment/Plan (1) CHF exacerbation: (2) Scrotal edema: PLAN: Plan Patient is a 73-year-old male who presented to [facility] ED on 02/07/2024 with worsening lower extremity edema and scrotal edema. 1. Acute HFpEF ? Presumed secondary to nonadherence to home Lasix. Marked lower extremity edema and scrotal edema on admission. Noted to be approximate 10 kg heavier than on last hospitalization back in 2021. BNP 974. Chest x-ray showed vascular congestion with small left-sided effusion. Patient reported dyspnea onexertion but notably with good oxygen saturations on room air at rest on admission. ? Last echo on 09/07/2022 showed EF 60%, normal LV function, no diastolic dysfunction noted, no regional wall motion abnormalities. ? Repeat echo on 02/07 shows EF 65 to 70%, concentric LV hypertrophy, moderately enlarged LA, mildly enlarged RA, normal RV size and function, moderate to severeaortic stenosis. ? Cardiology consulted. Continue IV Lasix drip at 10 ml/hr for now. Monitor daily BMP and urine output. 1.5 L/day fluid restriction. Daily weights. Continue home Lopressor and lisinopril. 2. BPH with obstructive symptoms ? Patient on home terazosin. Noted worsening urinary frequency with significanthesitation and difficulty with emptying his bladder for 1 to 2 months prior to this admission. ? Lima catheter placed in the ED, will continue this for now as it is expected the patient will have heavy diuresis over the next few days. Continue tamsulosin started on admission. Would recommend discontinuing Lima prior to discharge with void trial. 3. Debility ? Patient lives at home with his but has poor baseline performance status. Noted that he previously was wheelchair-bound and has difficulty with ambulation. Chronic back pain likely contributing to his poor performance status. PT/OT/case management following. 4. Scrotal edema ? Presumed secondary to volume overload from CHF exacerbation. Treated with IV diuresis as noted above. No clinical evidence of scrotal infection. Elevate scrotum as able. 5. Venous stasis ulcers ? No clear evidence of infection at this time. Wound care consulted. 6. Aortic stenosis ? Echo on admit showed moderate to severe aortic valve stenosis with peak gradient 82 mmHg, mean gradient 45 mmHg. No aortic stenosis noted on last echo in 2021. Cardiology consulted for further recommendations. Chronic medical conditions: ? Morbid obesity: BMI 43 on admit. Complicates hospital course, care and prognosis. ? A-fib: Rate controlled. INR therapeutic on admission. Continue home Lopressor and warfarin. ? History of vertebral fractures with chronic back pain: Follows with Dr. Meredith pain management. On pain control at home with oxycodone and acetaminophen,continue these while inpatient. Lidocaine patch ordered as well. DVT prophylaxis: Eliquis CODE STATUS: Full code, verified Expected disposition: Home with home health care versus SNF, TBD Total clinical time spent by myself addressing the patient's medical issues, reviewing all the data, and collaborating with patient's care team: 35 minutes. Charges/Coding Visit Charges Inpatient E&M: 70764 Subs Hosp L2 02/08/24 1732 <Electronically signed by Bharat Wilkins DO> Cosigner Signature (if applicable): CC: ~ Signed [facility] Work Phone: [phone] Discharge summary Author Noman Cloud [facility] February 07, 2024 9:31pm Note Date/Time February 07, 2024 6:1 1pm [facility] Medical Records Department [address] [place] [address] Emergency Department Summary 02/07/24 MR#: [id number] Acct: [id number] Name: ANDER MONTEIRO Rep #:[id number] : 1950 73 From: Noman Cloud MD PCP: [facility] Status:ADM IN Location: [address] <Evie Barahona RN - Last Filed: 02/07/24 19:37> History of Present Illness Chief Complaint: Complaint Informant: patient Onset/Context/Timing Onset: Weeks (1) Context: Gradual Onset Timing: Continuous Current Severity: Moderate Maximum Severity: Moderate Narrative Narrative: Patient is a 73-year-old male with past medical history of A-fib, COPD, CHF and hypertension who presented today for scrotal edema and difficulty with urinating. Patient reports over the past week his scrotum has been edematous tothe length that he is unable to fully urinate. He reports he has to urinate into a towel. Reports decreased amount of urine and color of urine is dark. Patient reports he quit taking his diuretic approximately 6 months ago due to frequent urination. He reports he did take a dose last and Monday without relief of symptoms. He also has bilateral lower extremity wounds that have been present for years. Patient reports dressings are to be changed daily.However, he has not been unable to change the left lower leg dressing for approximately 5 days and unable to change the right lower leg dressing for the past 2 days. He reports he has increased shortness of breath over the past week. He denies any recent hospitalizations or recent travel. Prior similar symptoms: No Recent Illness/Hospitalization: No [facility] <Evie Barahona RN - Last Filed: 02/07/24 19:37> [facility] Medical History Afib Congestive heart failure (CHF) COPD (chronic obstructive pulmonary disease) Former smoker Hypertension Home Medications lisinopril 10 mg tablet 10 mg PO QHS blood pressure 09/06/22 [History Last Taken Unknown] metoprolol tartrate 25 mg tablet 25 mg PO BID blood pressure 09/06/22 [History Last Taken Unknown] mometasone 200 mcg/actuation HFA aerosol inhaler 1 puff inhalation BID exnnwtpzh23/25/22 [History Last Taken Unknown] olodaterol 2.5 mcg/actuation mist for inhalation 2 inh inhalation DAILY breathing 09/06/22 [History Last Taken Unknown] simvastatin 10 mg tablet 10 mg PO QHS cholesterol 09/06/22 [History Last Taken Unknown] terazosin 2 mg capsule 2 mg PO QHS prostate 09/06/22 [History Last Taken Unknown] warfarin 5 mg tablet 5 mg PO DAILY blood thinner 09/06/22 [History Last Taken Unknown] acetaminophen 500 mg tablet 1,000 mg (2 x 500 mg) PO Q8 #0 tabs 09/08/22 [Rx Last Taken Unknown] buspirone 5 mg tablet 10 mg (2 x 5 mg) PO BID #120 tabs 09/08/22 [Rx Last Taken Unknown] furosemide 20 mg tablet (Lasix) 20 mg PO DAILY #20 tabs 09/08/22 [Rx Last Taken Unknown] lidocaine 5 % topical patch 1 patch topical DAILY #15 ea 09/08/22 [Rx Last Taken Unknown] oxycodone 10 mg tablet 10 mg PO Q8H PRN pain 1 week #21 tabs 09/08/22 [Rx Last Taken Unknown] oxycodone 5 mg tablet 10 mg (2 x 5 mg) PO Q8H PRN pain 1 week #30 tabs 09/08/22 [Rx Last Taken Unknown] Allergy/AdvReac Type Severity Reaction Status Date / Time pramoxine Allergy Rash Verified 02/07/24 17:06 Social History Smoking Status: Former smoker ROS <Evie Barahona RN - Last Filed: 02/07/24 19:37> ROS ED Constitutional Constitutional ED: Denies chills, fever(s) or sweats Eyes Eyes: Denies change in vision ENT ENT ED: Denies ear pain, rhinorrhea or sore throat Cardiovascular Cardiovascular: Reports orthopnea; Denies chest pain, palpitations, paroxysmal nocturnal dyspnea or racing heartbeat Respiratory/Chest Respiratory/Chest: Reports dyspnea, dyspnea on exertion and orthopnea; Denies cough or paroxysmal nocturnal dyspnea Gastrointestinal Gastrointestinal: Denies abdominal pain, constipation, diarrhea, melena, nausea or vomiting Genitourinary Genitourinary ED: Reports dysuria and other Details: Dark urine began decreased urination ; Denies hematuria or urinary frequency Musculoskeletal Musculoskeletal: Reports arthralgias and myalgias; Denies back pain or neck pain Integumentary Reports other Details: Bilateral lower extremity leg wounds. Neurologic Neurologic: Denies headache(s), paresthesias or weakness Psychiatric Psychiatric: Denies anxiety or depression Hematologic/Lymphatic Hematologic/Lymphatic: Reports systems reviewed and no addt'l complaints, exceptas documented EXAM <Evie Barahona RN - Last Filed: 02/07/24 19:37> Physical Exam Narrative Exam Narrative: Patient awake, alert, talkative, good historian. Const Vital Signs: 02/07/24 17:02 02/07/24 17:06 02/07/24 18:06 Temperature 97.3 F L 98 F 97.7 F L Temperature Source Temporal Temporal Temporal Pulse Rate 93 85 89 Respiratory Rate 18 20 H 23 H Blood Pressure 143/91 H 129/82 H 124/97 H Blood Pressure Mean 108 97 106 Pulse Ox 97 95 90 Oxygen Delivery Method Room Air Room Air Room Air 02/07/24 17:26 02/07/24 17:27 02/07/24 17:30 Temperature Temperature Source Pulse Rate 79 89 Respiratory Rate 20 H 21 H Blood Pressure 129/82 H 109/76 Blood Pressure Mean 93 83 Pulse Ox Oxygen Delivery Method 02/07/24 17:45 02/07/24 18:03 02/07/24 18:15 Temperature Temperature Source Pulse Rate 86 81 91 Respiratory Rate 21 H 24 H 22 H Blood Pressure Blood Pressure Mean Pulse Ox Oxygen Delivery Method 02/07/24 18:23 02/07/24 18:30 02/07/24 18:45 Temperature Temperature Source Pulse Rate 93 78 84 Respiratory Rate 29 H 21 H 21 H Blood Pressure 124/97 H 126/101 H Blood Pressure Mean 106 111 Pulse Ox Oxygen Delivery Method 02/07/24 19:00 Temperature Temperature Source Pulse Rate 78 Respiratory Rate 19 H Blood Pressure 134/68 H Blood Pressure Mean 85 Pulse Ox Oxygen Delivery Method Positive well nourished and well developed General Appearance ED: well developed HEENT Reports moist mucous membranes Eyes PERRL and EOMs intact bilaterally Neck no lymphadenopathy, supple and no JVD Chest Wall inspection of chest normal and palpation of chest normal Chest Narrative: Symmetrical chest rise Resp normal respiratory effort and clear to auscultation bilaterally Auscultation: Negative for rales, rhonchi or wheezes Cardio S1 normal heart sound and S2 normal heart sound Rate: other Other Details: Diastolic murmur noted. Patient in A-fib. History A- fib on warfarin. Rhythm: abnormal rhythm irregularly irregular GI non-tender and non-distended GI Narrative: Pannus with mild erythema with noted line of demarcation. No increased warmth. Auscultation: normoactive bowel sounds Palpation: soft; Negative for tender Narrative: Large edematous scrotum. No erythema or drainage noted. Extremity Extremity Narrative: Large amount none pitting edema to bilateral lower extremities. General Extremety ED: Yes edema General Extremity: edema Neuro oriented x3 Sensorium / Orientation: alert Motor Exam: strength 5/5 throughout Psych mental status grossly normal Skin no rashes or lesions noted Skin Narrative: Multiple small open areas to right mid lateral lower leg with scant amount of clear yellow drainage. Approximately 2.5 inches x 1 inch multilayer open area to left lateral lower leg. No drainage noted. No increased erythema noted to either extremity. General Skin Exam: Negative for elasticity normal <Dr. Noman Cloud MD - Last Filed: 02/07/24 18:44> Physical Exam Const Vital Signs: 02/07/24 17:02 02/07/24 17:06 02/07/24 18:06 Temperature 97.3 F L 98 F 97.7 F L Temperature Source Temporal Temporal Temporal Pulse Rate 93 85 89 Respiratory Rate 18 20 H 23 H Blood Pressure 143/91 H 129/82 H 124/97 H Blood Pressure Mean 108 97 106 Pulse Ox 97 95 90 Oxygen Delivery Method Room Air Room Air Room Air 02/07/24 17:26 02/07/24 17:27 02/07/24 17:30 Temperature Temperature Source Pulse Rate 79 89 Respiratory Rate 20 H 21 H Blood Pressure 129/82 H 109/76 Blood Pressure Mean 93 83 Pulse Ox Oxygen Delivery Method 02/07/24 17:45 02/07/24 18:03 02/07/24 18:15 Temperature Temperature Source Pulse Rate 86 81 91 Respiratory Rate 21 H 24 H 22 H Blood Pressure Blood Pressure Mean Pulse Ox Oxygen Delivery Method 02/07/24 18:23 02/07/24 18:30 02/07/24 18:45 Temperature Temperature Source Pulse Rate 93 78 84 Respiratory Rate 29 H 21 H 21 H Blood Pressure 124/97 H 126/101 H Blood Pressure Mean 106 111 Pulse Ox Oxygen Delivery Method 02/07/24 19:00 Temperature Temperature Source Pulse Rate 78 Respiratory Rate 19 H Blood Pressure 134/68 H Blood Pressure Mean 85 Pulse Ox Oxygen Delivery Method MDM <Evie Barahona RN - Last Filed: 02/07/24 19:37> MDM MDM Narrative Medical decision making narrative: Patient placed on internal affairs investigator. IV line initiated. Labwork obtained to evaluate for leukocytosis, anemia, and electrolyte derangement. EKG obtained toevaluate for cardiac arrhythmia/ischemia. Urinalysis obtained to evaluate for infection/hematuria. Chest x-ray obtained to evaluate for acute lung pathology,cardiac size, or mediastinal abnormality. History & Record Review Discussion w/independent historian: Patient Lab Data Attestation: I reviewed the patient's lab results. Lab results narrative: CBC shows a white count 5.6. H&H 11.4 and 36. Previously his hemoglobin was around 15 4 to 6 months ago. Platelets 175. Patient is on Coumadin his INR is 2.6. Electrolytes show a gap of 4 normal BUN of 15 creatinine 0.5. Glucose 98. BNP is elevated 974. Patient placed on internal affairs investigator. IV line initiated. Labwork obtained to evaluate for leukocytosis, anemia, and electrolyte derangement. EKG obtained toevaluate for cardiac arrhythmia/ischemia. Urinalysis obtained to evaluate for infection/hematuria. Chest x-ray obtained to evaluate for acute lung pathology,cardiac size, or mediastinal abnormality. Labs: Laboratory Results - last 24 hr 02/07/24 02/07/24 17:38 18:20 WBC 5.6 RBC 4.08 L Hgb 11.4 L Hct 36.9 L MCV 90.4 MCH 27.9 MCHC 30.9 L RDW Std Deviation 55.8 H RDW Coeff of Medardo 16.9 H Plt Count 175 MPV 10.9 Immature Gran % (Auto) 0.200 Neut % (Auto) 64.4 Lymph % (Auto) 18.5 L [place] % (Auto) 11.7 H Eos % (Auto) 3.4 Baso % (Auto) 1.8 H Absolute Neuts (auto) 3.6 Absolute Lymphs (auto) 1.04 Nucleated RBC % 0 PT 27.8 H INR 2.6 Sodium 138 Potassium 4.3 Chloride 105 Carbon Dioxide 29.0 Anion Gap 4 L BUN 15 Creatinine 0.85 Estim Creat Clear Calc 112.59 Est GFR (MDRD) Af Amer 113 Est GFR (MDRD) Non-Af 93 BUN/Creatinine Ratio 17.6 Glucose 98 Calcium 8.9 B-Natriuretic Peptide 974.9 H Urine Color Stephanie Urine Clarity Clear Urine pH 5.0 Ur Specific Broughton 1.030 Urine Protein 15 H Urine Glucose (UA) Normal Urine Ketones 5 H Urine Occult Blood 25 H Urine Nitrite Negative Urine Bilirubin 3 H Urine Urobilinogen 8 H Ur Leukocyte Esterase 25 H Urine RBC 0 SEEN Urine WBC 0 SEEN Ur Squamous Epith Cells 0-5 SEEN Calcium Oxalate Crystal 2+ Urine Bacteria 0 SEEN Hyaline Casts 0-5 SEEN Urine Mucus 0 SEEN EKG Initial EKG: Attestation: I personally reviewed and interpreted this EKG as follows: Interpretation: Atrial Fibrillation Prior EKG tracings: not available for review Differential Diagnosis Chest pain/SOB: CHF Abdominal Pain: UTI Differential Diagnosis: Cellulitis Management Discussion w/another healthcare provider: Other (Dr. Clodu, ED provider) Treatment and Re-Evaluation :: Lab work and imaging reviewed. Patient with normal white blood cell count of 5.6 and neutrophils 64.4. Hemoglobin 11.4. Last hemoglobin available for review was 08/2022 in which it was 15. Stool is positive for occult blood. PT is 27.8, INR is 2.6. Patient on warfarin for atrial fibrillation. Chemistry isunremarkable. BNP is elevated at 974.9. Lima catheter placed which returned clear yellow urine. Specimen sent to lab which was negative for UTI. Patient discussed with hospitalist and to be admitted for diuresis. Upon reevaluation, patient awake and alert in bed. Plan of care discussed with patient. Patient agreeable. <Dr. Noman Cloud MD - Last Filed: 02/07/24 18:44> [facility] MDM Narrative Medical decision making narrative: I have personally performed a face to face assessment of the patient and have reviewed the MALDONADO Note. I performed a substantive portion of the visit including all aspects of the following. My caal findings include: History is [73-year-old male slated for a week to 10 days he has had increased scrotal swelling to the point now that he cannot find his penis and is having to urinate and Tylenol. Denies any significant pain. No fever. No significant redness. Has never had this before. He does have a history of congestive heart failure with peripheral edema.] Exam is [73-year-old male vital signs stable afebrile. Pulse ox 97% on room air no signs hypoxia. H EENT exam unremarkable. Neck nontender. Lungs clear to auscultation bilaterally. Heart A-fib rate about 80. Chest wall nontender. Abdomen soft nontender. Edematous. Is a very large swollen scrotum consistent with edema. It is not hot it is not red and albicans cellulitic or infected. I do not think it is a groin yeast infection. He is moving all 4 extremities. 1+ pitting edema both lower extremities. He does have wounds on his lower extremities. Neurologically is awake. He is alert. He is answering questions following commands. Cayetano Monteiro] Medical Decision Making [73-year-old male history of congestive heart failure took antibiotic for least 6 months ago. Is having increasing swelling of his scrotum and extremities. Lima catheter replaced. Labs and chest x-ray will be obtained.] Other additions or changes: [None] History & Record Review Discussion w/independent historian: Patient and Family Lab Data Attestation: I reviewed the patient's lab results. Lab results narrative: CBC shows a white count 5.6. H&H 11.4 and 36. Previously his hemoglobin was around 15 4 to 6 months ago. Platelets 175. Patient is on Coumadin his INR is 2.6. Electrolytes show a gap of 4 normal BUN of 15 creatinine 0.5. Glucose 98. BNP is elevated 974. Labs: Laboratory Results - last 24 hr 02/07/24 02/07/24 17:38 18:20 WBC 5.6 RBC 4.08 L Hgb 11.4 L Hct 36.9 L MCV 90.4 MCH 27.9 MCHC 30.9 L RDW Std Deviation 55.8 H RDW Coeff of Medardo 16.9 H Plt Count 175 MPV 10.9 Immature Gran % (Auto) 0.200 Neut % (Auto) 64.4 Lymph % (Auto) 18.5 L [place] % (Auto) 11.7 H Eos % (Auto) 3.4 Baso % (Auto) 1.8 H Absolute Neuts (auto) 3.6 Absolute Lymphs (auto) 1.04 Nucleated RBC % 0 PT 27.8 H INR 2.6 Sodium 138 Potassium 4.3 Chloride 105 Carbon Dioxide 29.0 Anion Gap 4 L BUN 15 Creatinine 0.85 Estim Creat Clear Calc 112.59 Est GFR (MDRD) Af Amer 113 Est GFR (MDRD) Non-Af 93 BUN/Creatinine Ratio 17.6 Glucose 98 Calcium 8.9 B-Natriuretic Peptide 974.9 H Urine Color Stephanie Urine Clarity Clear Urine pH 5.0 Ur Specific Broughton 1.030 Urine Protein 15 H Urine Glucose (UA) Normal Urine Ketones 5 H Urine Occult Blood 25 H Urine Nitrite Negative Urine Bilirubin 3 H Urine Urobilinogen 8 H Ur Leukocyte Esterase 25 H Urine RBC 0 SEEN Urine WBC 0 SEEN Ur Squamous Epith Cells 0-5 SEEN Calcium Oxalate Crystal 2+ Urine Bacteria 0 SEEN Hyaline Casts 0-5 SEEN Urine Mucus 0 SEEN Radiography Chest X-Ray - ED: 1 View, Read by ED Physician, Mediastinum, Bony Structures and Chronic Changes Diagnostic Testing: Chest x-ray, portable, single view interpreted by myself shows normal cardiac silhouette. Pulmonary edema bilaterally. Left pleural effusion. Rhythm Strip Rhythm Strip: A-fib Rate: 84 Ectopy: None Discharge Plan Dx/Rx/DC Orders Clinical Impression: Medical non-compliance, Congestive heart failure, Scrotal edema, Anemia, Chronic anticoagulation, History of atrial fibrillation, Stool guaiac positive Disposition Disposition: Acute Care Hospital [facility] What to do if you have Problems For any increased pain, shortness of breath, bleeding, nausea or vomiting, chest pain, or any unexpected problems, contact your Primary Care Provider. Call [facility] ([phone]) or report to the closest Emergency Room. Call 911 if necessary. 02/07/242130 <Electronically signed by Noman Cloud MD> Cosigner Signature (if applicable): 02/07/241936 <Electronically signed by Evie Barahona RN> CC: [facility] ~ Signed [facility] Work Phone: 1(770) 879-944203-27-2024 History and physical note Author Aj Randolph [facility] February 07, 2024 7:56pm Note Date/Time February 07, 2024 7:5 6pm [facility] Medical Records Department [address] [place] [address] H&P Exam - Hospitalist 02/07/241944 MR#: [id number] Acct: [id number] Name: ANDER MONTEIRO Rep #:[id number] : 1950 73 From: Aj Randolph DO PCP: [facility] Status:ADM [facility] HPI - General General Date of Admission: 02/07/24 Date of Service: 02/07/24 Chief Complaint: edema HPI Narrative ANDER MONTEIRO, is a 73 M who presents with increased lower extremity edema, scrotal edema. Patient had been on diuretics but stopped months before due to frequent urination scant amounts of urine. But he was using a towel to sit on to urinate she and eventually was too much and presented to the emergency room. Patient was profoundly edematous scrotum as well as lower extremities. Lima catheter was successfully placed in the emergency room. Chest x-ray did not show CHF. And on review of his previous weights it appears that he is put on roughly 10 kg since he was here last in 2021. [facility] Medical History Afib Congestive heart failure (CHF) COPD (chronic obstructive pulmonary disease) Former smoker Hypertension Home Medications lisinopril 10 mg tablet 10 mg PO QHS blood pressure 09/06/22 [History Last Taken Unknown] metoprolol tartrate 25 mg tablet 25 mg PO BID blood pressure 09/06/22 [History Last Taken Unknown] mometasone 200 mcg/actuation HFA aerosol inhaler 1 puff inhalation BID [id number]/25/22 [History Last Taken Unknown] olodaterol 2.5 mcg/actuation mist for inhalation 2 inh inhalation DAILY breathing 09/06/22 [History Last Taken Unknown] simvastatin 10 mg tablet 10 mg PO QHS cholesterol 09/06/22 [History Last Taken Unknown] terazosin 2 mg capsule 2 mg PO QHS prostate 09/06/22 [History Last Taken Unknown] warfarin 5 mg tablet 5 mg PO DAILY blood thinner 09/06/22 [History Last Taken Unknown] acetaminophen 500 mg tablet 1,000 mg (2 x 500 mg) PO Q8 #0 tabs 09/08/22 [Rx Last Taken Unknown] buspirone 5 mg tablet 10 mg (2 x 5 mg) PO BID #120 tabs 09/08/22 [Rx Last Taken Unknown] furosemide 20 mg tablet (Lasix) 20 mg PO DAILY #20 tabs 09/08/22 [Rx Last Taken Unknown] lidocaine 5 % topical patch 1 patch topical DAILY #15 ea 09/08/22 [Rx Last Taken Unknown] oxycodone 10 mg tablet 10 mg PO Q8H PRN pain 1 week #21 tabs 09/08/22 [Rx Last Taken Unknown] oxycodone 5 mg tablet 10 mg (2 x 5 mg) PO Q8H PRN pain 1 week #30 tabs 09/08/22 [Rx Last Taken Unknown] Allergy/AdvReac Type Severity Reaction Status Date / Time pramoxine Allergy Rash Verified 02/07/24 17:06 Social History Smoking Status: Former smoker ROS ROS Narrative States that his swelling gets so severe it starts sleeping on his legs. Denies chest pain. Does get short of breath with exertion but his activity is limited as he spends much of his time in the chair as he is very weak to stand. All review of systems were negative except as mentioned above in the history of present illness and the other review of systems. Vital Signs Vital Signs Vital Signs: 02/07/24 17:02 02/07/24 17:06 02/07/24 18:06 Temperature 36.3 C L 36.6 C 36.5 C L Temperature Source Temporal Temporal Temporal Pulse Rate 93 85 89 Respiratory Rate 18 20 H 23 H Blood Pressure 143/91 H 129/82 H 124/97 H Blood Pressure Mean 108 97 106 Pulse Ox 97 95 90 Oxygen Delivery Method Room Air Room Air Room Air 02/07/24 17:26 02/07/24 17:27 02/07/24 17:30 Temperature Temperature Source Pulse Rate 79 89 Respiratory Rate 20 H 21 H Blood Pressure 129/82 H 109/76 Blood Pressure Mean 93 83 Pulse Ox Oxygen Delivery Method 02/07/24 17:45 02/07/24 18:03 02/07/24 18:15 Temperature Temperature Source Pulse Rate 86 81 91 Respiratory Rate 21 H 24 H 22 H Blood Pressure Blood Pressure Mean Pulse Ox Oxygen Delivery Method 02/07/24 18:23 02/07/24 18:30 02/07/24 18:45 Temperature Temperature Source Pulse Rate 93 78 84 Respiratory Rate 29 H 21 H 21 H Blood Pressure 124/97 H 126/101 H Blood Pressure Mean 106 111 Pulse Ox Oxygen Delivery Method 02/07/24 19:00 Temperature Temperature Source Pulse Rate 78 Respiratory Rate 19 H Blood Pressure 134/68 H Blood Pressure Mean 85 Pulse Ox Oxygen Delivery Method Weight Weight: 144.6 kg Body Mass Index (BMI) 43.2 Physical Exam Narrative Scrotal edema without warmth. Const alert and no apparent distress Constitutional Narrative: Obese General Appearance: cooperative HEENT normocephalic and head/scalp atraumatic Eyes Eyes Narrative: No icterus Neck Neck Narrative: Positive JVD. No thyromegaly. No lymphadenopathy. Resp normal respiratory effort Resp Narrative: Bilateral crackles in the bases. Cardio regular rate, regular rhythm, S1 normal heart sound and S2 normal heart sound GI normal to inspection, nondistended, normoactive bowel sounds, soft to palpation,non-tender and non-distended GI Narrative: Obese Extremity Extremity Narrative: Marked taut lower extremity edema Skin Skin Narrative: Lymphedematous changes in the lower extremities. Patient has a some decompensated skin on his right lateral gregorio that the patient does states is where his fluid typically drains from. Patient also has a venous stasis ulcer on his leftlateral leg above the lateral malleolus without erythema or discharge. Neuro moves all extremities Sensorium / Orientation: awake and alert Psych affect normal Results Lab / Micro Data Attestation: I reviewed the patient's lab results. 02/07/24 17:38 02/07/24 17:38 Labs: Laboratory Results - last 24 hr 02/07/24 17:38: WBC 5.6, RBC 4.08 L, Hgb 11.4 L, Hct 36.9 L, MCV 90.4, MCH 27.9,MCHC 30.9 L, RDW Std Deviation 55.8 H, RDW Coeff of Medardo 16.9 H, Plt Count 175, MPV 10.9, Immature Gran % (Auto) 0.200, Neut % (Auto) 64.4, Lymph % (Auto) 18.5 L, [place] % (Auto) 11.7 H, Eos % (Auto) 3.4, Baso % (Auto) 1.8 H, Absolute Neuts (auto) 3.6, Absolute Lymphs (auto) 1.04, Nucleated RBC % 0, PT 27.8 H, INR 2.6, Sodium 138, Potassium 4.3, Chloride 105, Carbon Dioxide 29.0, Anion Gap 4 L, BUN15, Creatinine 0.85, Estim Creat Clear Calc 112.59, Est GFR (MDRD) Af Amer 113, Est GFR (MDRD) Non-Af 93, BUN/Creatinine Ratio 17.6, Glucose 98, Calcium 8.9, B-Natriuretic Peptide 974.9 H 02/07/24 18:20: Urine Color Stephanie, Urine Clarity Clear, Urine pH 5.0, Ur Specific Broughton 1.030, Urine Protein 15 H, Urine Glucose (UA) Normal, Urine Ketones 5 H, Urine Occult Blood 25 H, Urine Nitrite Negative, Urine Bilirubin 3 H, Urine Urobilinogen 8 H, Ur Leukocyte Esterase 25 H, Urine RBC 0 SEEN, Urine WBC 0 SEEN, Ur Squamous Epith Cells 0-5 SEEN, Calcium Oxalate Crystal 2+, Urine Bacteria 0 SEEN, Hyaline Casts 0-5 SEEN, Urine Mucus 0 SEEN Micro: Microbiology 02/07/24 18:44 Stool Stool Occult Blood (JONATHAN) - Final Occult Blood Positive Rhythm Strip Rhythm Strip: A-fib Rate: 84 Ectopy: None EKG Initial EKG: Attestation: I personally reviewed and interpreted this EKG as follows: Prior EKG tracings: available for review EKG Rhythm Intrepretation: Atrial Fibrillation (Rate controlled. No acutechanges.) Assessment & Plan Assessment/Plan (1) CHF exacerbation: PLAN: Plan Acute HFpEF * Patient had 2D echocardiogram from September 07, 2022 where his EF was 60% * Recheck echocardiogram * Weight has gone up roughly 10 kg since that time * Patient is markedly edematous. Will initiate furosemide infusion 10 mg/h. * Fluid restrict to 1.5 L/day. Daily weights. * Nutrition consult for further recommendations. * Continue metoprolol tartrate and lisinopril. BPH * Patient has stopped taking his diuretic voluntarily because of the urinary frequency he was having. He is already on terazosin. Lima catheter was placed in the emergency room and will continue for now. I will start tamsulosin. Prior to discharge, would recommend checking postvoid residual catheters been removed to see if the catheter can remain out. Debility * Poor baseline performance status as patient has previous been wheelchair-bound . * PT OT evaluate and treat * Case management to assist with discharge needs. Scrotal edema * Secondary to third spacing from CHF * No clinical evidence of infection at this point in time * Elevate scrotum as able Venous stasis ulcers * No clear evidence of infection at this time * Consult wound care for further recommendations. Chronic conditions * History of vertebral fractures: Previously his 25-hydroxy vitamin D level has been within normal limits. Will recheck another level. Continue with pain control with oxycodone and acetaminophen. * Morbid obesity: Complicates care and long-term recovery. * Atrial fibrillation: Rate controlled. INR is therapeutic. Continue with warfarin and metoprolol. VTE prophylaxis: Not indicated as patient is already anticoagulated. CODE STATUS: Addressed with the patient. Patient is full code. Charges/Coding Visit Charges Inpatient E&M: 53864 Init Hosp L3 02/07/241955 <Electronically signed by Aj Randolph DO> Cosigner Signature (if applicable): CC: Dr. Aj Randolph DO; [facility]~ Signed [facility] Work Phone: 1(181) 564-824202-20-2024 NoteHNO ID: [id number] Author: KAIN HUTCHISON MA Service: ? Author Type: Disability Coordinator Type: Progress Notes Filed: 01/02/2024 14:05 Note Text: POPULATION HEALTH NAVIGATION OUTREACH Action/FYI Spoke to pt's to verify pcp, schedule wellness, care everywhere ran showing [facility] unsure if pt goes there for all his care. In speaking to his she said that [facility] to [facility], no pcp is listed to him, will keep pcp as general [facility] Patient Identified by Name and : YES, via phone Outreach Outcome/Action Spoke to patient / parent / legal guardian: Not interested in scheduling Did you use a PCP flex slot to schedule this appointment? N/A Reason for Outreach Care Gap or Scheduling/Wellness visits Payer: Payor: ERIC / Plan: [place] PPO / Product Type: PPO / Care Gap Reviewed:: Annual Wellness visit Reminder: Reminder note to check Health Maintenance for items below Health Maintenance items due: There are no preventive care reminders to display for this patient. Navigation Signature: Kain Hutchison MA January 02, 2024 2:03 [facility]02-20-2024 History of Present illness Narrative* Kain Hutchison MA - 01/02/2024 2:02 PM EST [facility] NAVIGATION OUTREACH Action/I Spoke to pt's to verify pcp, schedule wellness, care everywhere ran showing [facility] unsure if pt goes there for all his care. In speaking to his she said that [facility] goes to [facility] for [facility] his care, no pcp is listed to him, will keep pcp as general [facility] Patient Identified by Name and : YES, via phone Outreach Outcome/Action Spoke to patient / parent / legal guardian: Not interested in scheduling Did you use a PCP flex slot to schedule this appointment? N/A Reason for Outreach Care Gap or Scheduling/Wellness visits Payer: Payor: ERIC / Plan: [place] PPO / Product Type: PPO / Care Gap Reviewed:: Annual Wellness visit Reminder: Reminder note to check Health Maintenance for items below Health Maintenance items due: There are no preventive care reminders to display for this patient. Navigation Signature: Kain Hutchison MA January 02, 2024 2:03 PM documented [facility] NotePatient Outreach (NETNAV) ANDER MONTEIRO ([id number]) 1950 M Date Time Provider Department 01/02/24 KAIN HUTCHISON During your visit today, we recorded the following information about you: Kain Hutchison MA 01/02/2024 2:05 PM Signed POPULATION HEALTH NAVIGATION OUTREACH Action/FYI Spoke to pt's to verify pcp, schedule wellness, care everywhere ran showing [facility] unsure if pt goes there for all his care. In speaking to his she said that patient goes to [facility] for [facility] care, no pcp is listed to him, will keep pcp as general [facility] Patient Identified by Name and : YES, via phone Outreach Outcome/Action Spoke to patient / parent / legal guardian: Not interested in scheduling Did you use a PCP flex slot to schedule this appointment? N/A Reason for Outreach Care Gap or Scheduling/Wellness visits Payer: Payor: ERIC / Plan: [place] PPO / Product Type: PPO / Care Gap Reviewed:: Annual Wellness visit Reminder: Reminder note to check Health Maintenance for items below Health Maintenance items due: There are no preventive care reminders to display for this patient. Navigation Signature: Kain Hutchison MA January 02, 2024 2:03 PM Allergies As of Date: 01/02/2024 (Not on File) Date Reviewed: Never Reviewed Reason for Visit: Population Health Navigation Outreach [3910] Cmt: [employer] care gaps Problem List As Of Date: 01/02/2024 (None) Encounter Status:Closed by KAIN HUTCHISON on 01/02/24[facility] 01-20-2023 NotePatient Outreach (NETNAV) CAYETANOANDER Nestor ([id number]) 1950 M Date Time Provider Department 01/20/23 [...] Care Gap or Scheduling/Wellness visits Payer: Payor: DAPHNE / Plan: [place] PPO / Product Type: PPO / Care [...] (None) Encounter Status:Closed by ALYSSA REID on 01/20/23[facility]03-10-2023 NoteHNO ID: [id number] Author: Alyssa Almodovar MA Service: ? Author Type: Disability Coordinator Type: Progress Notes Filed: 01/20/2023 10:24 AM [...] Alyssa Almodovar MA January 20, 2023 8:08 [facility]03-10-2023 History of Present illness Narrative* Alyssa Almodovar MA - 01/20/2023 8:08 AM EST POPULATION HEALTH NAVIGATION OUTREACH Action/FYI Confirm PCP [...] visits Payer: Payor: ERIC / Plan: [place] PPO / Product Type: PPO / Care Gap Reviewed:: Annual Wellness visit Reminder: Reminder note to check Health Maintenance for items below Health Maintenance items due: There are no preventive care reminders to display for this patient. Navigation Signature: Alyssa Almodovar MA January 20, 2023 8:08 AM documented in this [facility]08-11-2022 History of Present illness Narrative* Nori Soares - 06/23/2022 8:39 AM EDT POPULATION HEALTH NAVIGATION OUTREACH Action/FYI Cedrick faulkner Patient due for the following: Annual exam Establish care Unable to contact patient by phone, Number not in service Letter printed to [facility], to be mailed by Navigator on site [...] Message Sent to Practice: No Navigation Signature: Nori Soares June 23, 2022 8:39 AM documented in [facility] note Author Elliot Hayden [facility] February 16, 2024 2:32pm Note Date/Time February 16, 2024 2:32 pm [facility] Medical Records Department [address] [place] [address] Counseling Note - Pharmacy 02/16/24 1431 MR#: [id number] Acct: [id number] Name: ANDER MONTEIRO Rep #:[id number] : 1950 73 From: Elliot Hayden [facility]CP: [facility] Status:ADM IN Y Location: [place] [address] Pharmacy [facility] has performed discharge medication reconciliation and counseling for this patient. The patient's discharge medication list was reviewed for discrepancies and discrepancies were resolved. The patient was counseled on the following discharge medications and changes in medications for homegoing were reviewed. The Reason for Use, instructions for use, and potential side effects were reviewed for all new medications. The patient's questions regarding all of their medications were answered. 1. Furosemide 40 mg PO daily 2. Potassium chloride 20 mEq po daily 3. Oxycodone 5 mg PO Q6H PRN pain 4. Acyclovir 800 mg PO 4x/day x 5 days The patient was able to verbally demonstrate an understanding of their dischargemedications. Medications at Discharge Home Medications metoprolol tartrate 25 mg tablet 25 mg PO BID blood pressure 09/06/22 simvastatin 10 mg tablet 10 mg PO QHS cholesterol 09/06/22 terazosin 2 mg capsule 2 mg PO QHS prostate 09/06/22 warfarin 5 mg tablet 5 mg PO DAILY blood thinner 09/06/22 lidocaine 5 % topical patch 1 patch topical DAILY pain #15 ea 09/08/22 albuterol sulfate 90 mcg/actuation aerosol inhaler 1 puff inhalation Q4H PRN SOB02/08/24 tiotropium 2.5 mcg-olodaterol 2.5 mcg/actuation mist for inhalation (Stiolto Respimat) 1 puff inhalation BID breathing 02/08/24 acetaminophen 500 mg tablet 1,000 mg (2 x 500 mg) PO Q8 pain 30 days #180 tabs 02/16/24 acyclovir 800 mg tablet 800 mg PO 4X/DAY 5 days #20 tabs 02/16/24 furosemide 40 mg tablet 40 mg PO DAILY 30 days #30 tabs 02/16/24 oxycodone 5 mg tablet 5 mg PO Q6H PRN PRN Pain Score 4-10 7 days #28 tabs 02/16/24 potassium chloride 20 mEq tablet,extended release(part/cryst) 20 meq PO DAILY 30days #30 tabs 02/16/24 02/16/24 1432 <Electronically signed by Elliot herring> Date _ Elliot Hayden Cosigner Signature (if applicable): Date CC: ~ Signed [facility] Work Phone: evaluation note* Diagnosis Onset Date Resolution Status Compression fx, thoracic spine acute Debility acute Elevated lactic acid level a cute Supratherapeutic INR acute Syncope acute [facility] Work Phone: Evaluation noteNo assessment information available [facility] Work Phone: evaluation note* Diagnosis Onset Date Resolution Status Anemia acute Chronic anticoagulation acut e Congestive heart failure acu te History of atrial fibrillation acute Medical non-compliance acute Scrotal edema acute Stool guaiac positive acute [facility] Work Phone: Evaluation note* Diagnosis Onset Date Resolution Status Anemia acute Aortic stenosis acute Chronic anticoagulation acut e Congestive heart failure acu te History of atrial fibrillation acute Longstanding persistent atrial fibrillation acute Medical non-compliance acute Scrotal edema acute Stool guaiac positive acute CHF exacerbation chronic [facility] Work Phone: Evaluation note* Diagnosis Onset Date Resolution Status Aortic stenosis acute Chronic anticoagulation acut e Congestive heart failure acu te History of atrial fibrillation acute Longstanding persistent atrial fibrillation acute Medical non-compliance acute Scrotal edema acute Stool guaiac positive acute CHF exacerbation chronic Syncope and collapse acute [facility] Work Phone: Evaluation note* Diagnosis Onset Date Resolution Status Aortic stenosis acute Chronic anticoagulation acut e Congestive heart failure acu te History of atrial fibrillation acute Longstanding persistent atrial fibrillation acute Medical non-compliance acute Scrotal edema acute Stool guaiac positive acute CHF exacerbation chronic Aortic stenosis acute Chronic anticoagulation acut e Longstanding persistent atrial fibrillation acute Staphylococcus aureus bacteremia acute Syncope and collapse acute [facility] Work Phone: Evaluation note* Diagnosis Onset Date Resolution Status Scrotal edema acute CHF exacerbation resolved Stool guaiac positive resolv ed Staphylococcus aureus bacteremia acute Syncope and collapse acute Atrial fibrillation acute BPH (benign prostatic hyperplasia) acute Chronic heart failure with p reserved ejection fraction (HFpEF) acute Critical aortic valve stenosis acute Debility acute HLD (hyperlipidemia) acute Hypokalemia acute Orthostatic hypotension acut e Staphylococcus aureus bacteremia acute Urinary retention acute COPD (chronic obstructive pulmonary disease) chronic Hypertension chronic Syncope resolved [facility] Work Phone: Evaluation note* Diagnosis Onset Date Resolution Status Scrotal edema acute CHF exacerbation resolved Stool guaiac positive resolv ed Syncope and collapse acute Sepsis resolved Staphylococcus aureus bacteremia resolved Atrial fibrillation acute BPH (benign prostatic hyperplasia) acute Chronic heart failure with p reserved ejection fraction (HFpEF) acute Critical aortic valve stenosis acute Debility acute HLD (hyperlipidemia) acute Hypokalemia acute Urinary retention acute COPD (chronic obstructive pulmonary disease) chronic Hypertension chronic Orthostatic hypotension reso lved Sepsis resolved Staphylococcus aureus bacteremia resolved Syncope resolved [facility] Work Phone: Evaluation note* Diagnosis Aortic valve stenosis, etiology of cardiac valve disease unspecified- Primary documented in this encounter [facility]* Diagnosis Nonrheumatic aortic valve stenosis- Primary Essential hypertension Unspecified essential hypertension documented in this encounter [facility]* Diagnosis Severe aortic stenosis- Primary Aortic valve disorders Severe aortic stenosis- Primary Aortic valve disorders Chronic heart failure with preserved ejection fraction (HCC) Essential hypertension Unspecified essential hypertension Longstanding persistent atrial fibrillation (HCC) Severe aortic stenosis Aortic valve disorders [facility] Diagnosis Severe aortic stenosis- Primary Aortic valve disorders Severe aortic stenosis Aortic valve disorders Severe aortic stenosis Aortic valve disorders [facility]* Diagnosis Severe aortic stenosis- Primary Aortic valve disorders Severe aortic stenosis Aortic valve disorders Severe aortic stenosis Aortic valve disorders [facility] Diagnosis Severe aortic stenosis- Primary Aortic valve disorders Severe aortic stenosis- Primary Aortic valve disorders Severe aortic stenosis Aortic valve disorders [facility]* Diagnosis Severe aortic stenosis- Primary Aortic valve disorders Severe aortic stenosis Aortic valve disorders Severe aortic stenosis Aortic valve disorders documented [facility]* Diagnosis Aortic valve stenosis, etiology of cardiac valve disease unspecified- Primary [facility]* Diagnosis Severe aortic stenosis- Primary Aortic valve disorders Severe aortic stenosis Aortic valve disorders [facility]* Diagnosis Severe aortic stenosis- Primary Aortic valve disorders Chronic heart failure with preserved ejection fraction (HCC) Longstanding persistent atrial fibrillation (HCC) Coronary artery disease involving [place] coronary artery of [place] heart without angina pectoris [facility] Author Karen Sinha [facility] February 17, 2024 5:07am Note Date/Time February 17, 2024 4:48 am [facility] Medical Records Department [address] [place] [address] H&P Exam - Hospitalist 02/17/24 0439 MR#: [id number] Acct: [id number] Name: ANDER MONTEIRO Rep #:[id number] : 1950 73 From: Karen Sinha MD [facility]CP: [facility] Status:ADM IN Location: [place] [id number] HPI - General General Date of Admission: 02/17/24 Date of Service: 02/17/24 Chief Complaint: Syncopal event. HPI Narrative The patient is a 73 y/o M w/ PMHx: HFpEF, Moderate Pulmonary HTN, BPH with obstructive symptoms, Chronic Venous stasis disease w/ ulcers, PAF, Morbid Obesity, HTN, HLD, Hx Vertebral Fx with chronic back pain following with Dr. Musa Pain management, COPD, Former tobacco use, recent 02/16/24 discharge following evaluation and treatment for HFpEF exacerbation with concurrently new moderate to severe aortic stenosis with associated significant scrotal edema with echocardiogram with EF 65 to 70%, concentric LV hypertrophy, moderately enlarged LA, mildly enlarged RA, normal RV size and function, moderate to severeaortic stenosis with planned outpatient cardiac catheterization with recommendedcontinued diuresis initially with an Lasix drip and eventual de-escalation to oral regimen which was new for the patient in addition to R lower back suspectedshingles discharged on planned continued empiric acylcovir through 02/19/24 who now re-presents to the [facility] ED on 02/17/24 with history of syncopal episode at homewaking up on the floor with no head injury nor any neck discomfort occurring approximately 1 AM found by his family. Patient reports lightheaded and dizziness with positional changes especially and the symptoms prior to his syncopal event. He notes he is felt significantly weak and fatigued and more sowhen he attempts activity. He reports from his recent presentation a weight loss of approximately 42 pounds following his significant diuresis. Workup in the ED included T97, heart rate 118, BP 123/85, respiratory rate 33, 95% on 4 L nasal cannula recently discharged 02/16/2024 noted to be 97% on room air at that time, CBC with WC 9.2, hemoglobin 11.6, MCV 89.5, platelet 173 with increased immature granulocytes lymphocytosis, BMP with sodium 134, BUN/creatinine 27/1.18, glucose 132, troponin 40, chest x-ray with chronic COPD diet changes with no acute cardiopulmonary findings but final read pending, EKG with atrial fibrillation with RVR with rate 117 with occasional PVC with no acute evidence of ischemia. In the ED patient administered judicious 500 cc NS IV bolus. [facility] Medical History (Updated 02/17/24 @ 05:[address] Karen Sinha MD) (HFpEF) heart failure with preserved ejection fraction Anemia Aortic stenosis Chronic pain syndrome Compression fx, thoracic spine COPD (chronic obstructive pulmonary disease) Former smoker HLD (hyperlipidemia) Hypertension Longstanding persistent atrial fibrillation Obesity RAFAEL on CPAP Home Medications simvastatin 10 mg tablet 10 mg PO QHS cholesterol 09/06/22 [History Last Taken 02/16/24] terazosin 2 mg capsule 2 mg PO QHS prostate 09/06/22 [History Last Taken 02/16/24] warfarin 5 mg tablet 5 mg PO DAILY blood thinner 09/06/22 [History Last Taken 02/16/24] lidocaine 5 % topical patch 1 patch topical DAILY pain #15 ea 09/08/22 [Rx Last Taken Unknown] albuterol sulfate 90 mcg/actuation aerosol inhaler 1 puff inhalation Q4H PRN SOB02/08/24 [History Last Taken 02/16/24] tiotropium 2.5 mcg-olodaterol 2.5 mcg/actuation mist for inhalation (Stiolto Respimat) 1 puff inhalation BID breathing 02/08/24 [History Last Taken Unknown] acetaminophen 500 mg tablet 1,000 mg (2 x 500 mg) PO Q8 pain 30 days #180 tabs 02/16/24 [Rx Last Taken 02/16/24] acyclovir 800 mg tablet 800 mg PO 4X/DAY 5 days #20 tabs 02/16/24 [Rx Last Taken 02/16/24] furosemide 40 mg tablet 40 mg PO DAILY 30 days #30 tabs 02/16/24 [Rx Last Taken 02/16/24] oxycodone 5 mg tablet 5 mg PO Q6H PRN PRN Pain Score 4-10 7 days #28 tabs 02/16/24 [Rx Last Taken 02/16/24] potassium chloride 20 mEq tablet,extended release(part/cryst) 20 meq PO DAILY 30days #30 tabs 02/16/24 [Rx Last Taken 02/16/24] oxycodone 10 mg tablet 10 mg PO TID 02/17/24 [History Last Taken 02/16/24] Allergy/AdvReac Type Severity Reaction Status Date / Time pramoxine Allergy Rash Verified 02/07/24 17:06 Family History (Updated 02/17/24 @ 05:[address] Karen Sinha MD) Mother Cancer Father CAD (coronary artery disease) Heart disease Hypertension Myocardial infarction Surgical History (Updated 02/17/24 @ 05:[address] Karen Sinha MD) History of cardiac radiofrequency ablation (RFA) History of tonsillectomy and adenoidectomy Social History (Updated 02/17/24 @ 05:[address] Karen Sinha MD) household members: family Smoking Status: Former smoker how long ago did patient quit smoking: Quit ~ 35 yrs prior. alcohol intake: never substance use type: does not use ROS ROS Narrative Admission Review of Systems: CONSTITUTIONAL: No weight loss, fever, chills, + weakness or fatigue. HEENT: Eyes: No visual loss, blurred vision, double vision or yellow sclerae. Ears, Nose, Throat: No hearing loss, sneezing, congestion, runny nose or sore throat. SKIN: No rash or itching, lesions, wounds except for + significant bilateral lower extremity venous stasis skin changes, lymphedema, very staged ecchymoses. CARDIOVASCULAR: + Syncopal event, palpitations, still residual peripheral edema,see skin. No chest pain, chest pressure or chest discomfort, orthopnea. RESPIRATORY: No shortness of breath, cough or sputum, wheezing, hemoptysis. GASTROINTESTINAL: No anorexia, nausea, vomiting or diarrhea, abdominal pain, melena, BRBPR. GENITOURINARY: No dysuria, frequency, urgency or retention. NEUROLOGICAL: No headache, dizziness, syncope, paralysis, ataxia, numbness or tingling in the extremities, focal weakness, change in bowel or bladder control,seizure. MUSCULOSKELETAL: + muscle, back pain, joint pain or stiffness. HEMATOLOGIC: + Anemia, easy bleeding/bruising. LYMPHATICS: No enlarged nodes. No history of splenectomy. PSYCHIATRIC: No history of depression or anxiety. ENDOCRINOLOGIC: No reports of sweating, cold or heat intolerance. No polyuria orpolydipsia. ALLERGIES: No history of asthma, hives, eczema or rhinitis. Vital Signs Vital Signs Vital Signs: 02/17/24 02:39 02/17/24 02:53 02/17/24 03:29 Temperature 97 F L Temperature Source Temporal Pulse Rate 118 H Respiratory Rate 33 H Respiratory Effort Short of Breath Respiratory Pattern Normal Blood Pressure 123/85 H Blood Pressure Mean 97 Pulse Ox 95 Oxygen Delivery Method Nasal Cannula Nasal Cannula Oxygen Flow Rate (L/min) 4 4 Weight Weight: 255 lb 11.779 oz Body Mass Index (BMI) 35.6 Physical Exam Narrative Physical Examination: General: Awake, alert, oriented x 3 and cooperative, seated upright in the ED bed in no apparent distress fatigued. Skin: Normal color, normal turgor, no icterus, no cyanosis except notable bilateral lower extremity venous stasis skin changes, lymphedema, chronic stasiswounds as well as very stage extremity ecchymoses. HEENT: AT/NC, EOMI, PERRLA, dry MM, no carotid bruits or JVD noted. Lungs: Diminished, distant, no evidence of any distress, appropriate effort, no rales, ronchi or wheezing. Heart: Irregular, rate currently controlled; no gallop, rub audible, + SM. Abdomen: Soft, obese, NTTP, ND, distant hyperactive BS, no appreciated HSM. Extremities: No cyanosis, no clubbing, still residual edema but patient reports it is significantly improved from previously, see skin. Neurological: Patient awake, alert, oriented as noted, cognitive function intact; pupils equally reactive to light and accommodation, cranial nerves grossly normal, moving all 4 extremities, no focal deficits, strength severely globally decreased. Psychiatric: Affect appears flat, fatigued, no acute evidence of depressive or anxiety feelings. Results Lab / Micro Data 02/17/24 03:55 02/17/24 03:00 Labs: Laboratory Results - last 24 hr 02/17/24 03:00: WBC Cancelled, Corrected WBC Cancelled, RBC Cancelled, Hgb Cancelled, Hct Cancelled, MCV Cancelled, MCH Cancelled, MCHC Cancelled, RDW Std Deviation Cancelled, RDW Coeff of Medardo Cancelled, Plt Count Cancelled, MPV Cancelled, Immature Gran % (Auto) Cancelled, Neut % (Auto) Cancelled, Lymph % (Auto) Cancelled, [place] % (Auto) Cancelled, Eos % (Auto) Cancelled, Baso % (Auto)Cancelled, Absolute Neuts (auto) Cancelled, Absolute Lymphs (auto) Cancelled, Total Counted Cancelled, Neutrophils % (Manual) Cancelled, Band Neutrophils % Cancelled, Lymphocytes % (Manual) Cancelled, Monocytes % (Manual) Cancelled, Eosinophils % (Manual) Cancelled, Basophils % (Manual) Cancelled, Metamyelocytes% Cancelled, Myelocytes % Cancelled, Promyelocytes % Cancelled, Blast Cells % Cancelled, Plasma Cell % (Manual) Cancelled, Other Cells % Cancelled, Nucleated RBC % Cancelled, Nucleated RBCs/100 WBC Cancelled, Differential Comment Cancelled, Diff Path Review Cancelled, Hypersegmented Neuts Cancelled, Atypical Lymphocytes Cancelled, Reactive Lymphocytes Cancelled, Smudge Cells Cancelled, Toxic Granulation Cancelled, Toxic Vacuolation Cancelled, Dohle Bodies Cancelled, Yogesh Rods Cancelled, Platelet Estimate Cancelled, Plt Morphology Comment Cancelled, RBC Morphology Cancelled 02/17/24 03:00: RBC Morphology Cancelled, Polychromasia Cancelled, HypochromasiaCancelled, Basophilic Stippling Cancelled, Anisocytosis Cancelled, Microcytosis Cancelled, Macrocytosis Cancelled, Spherocytes Cancelled, Sickle Cells Cancelled, Target Cells Cancelled, Tear Drop Cells Cancelled, Ovalocytes Cancelled, Stomatocytes Cancelled, [place] Bodies Cancelled, Nima Cells Cancelled, Bite Cells Cancelled, Crenated Cell Cancelled, Acanthocytes (Spur) Cancelled, Rouleaux Cancelled, Schistocytes Cancelled, Sodium 134 L, Potassium 4.7, Chloride 98, Carbon Dioxide 30.0, Anion Gap 6, BUN 27 H, Creatinine 1.18, Estim Creat Clear Calc 71.14, Est GFR (MDRD) Af Amer 78, Est GFR (MDRD) Non-Af 64, BUN/Creatinine Ratio 22.9 H, Glucose 132 H, Calcium 9.1, Troponin I High Sens 40 02/17/24 03:55: WBC 9.2, RBC 4.11 L, Hgb 11.6 L, Hct 36.8 L, MCV 89.5, MCH 28.2,MCHC 31.5 L, RDW Std Deviation 53.1 H, RDW Coeff of Medardo 16.3 H, Plt Count 173, MPV 10.8, Immature Gran % (Auto) 0.500, Neut % (Auto) 81.0 H, Lymph % (Auto) 6.9L, [place] % (Auto) 9.2, Eos % (Auto) 1.3, Baso % (Auto) 1.1 H, Absolute Neuts (auto) 7.4, Absolute Lymphs (auto) 0.63 L, Nucleated RBC % 0 Rhythm Strip Rhythm Strip: A-fib Rate: 107 Ectopy: PVC(s) Assessment & Plan Assessment/Plan (1) Syncope and collapse: PLAN: Plan The patient is a 73 y/o M w/ PMHx: HFpEF, Moderate Pulmonary HTN, BPH with obstructive symptoms, Chronic Venous stasis disease w/ ulcers, PAF, Morbid Obesity, HTN, HLD, Hx Vertebral Fx with chronic back pain following with Dr. Musa Pain management, COPD, Former tobacco use, recent 02/16/24 discharge following evaluation and treatment for HFpEF exacerbation with concurrently new moderate to severe aortic stenosis in addition to R lower back suspected shingles who now re-presents to the [facility] ED on 02/17/24 with history of syncopal episode at home waking up on the floor with no head injury nor any neck discomfort occurring approximately 1 AM found by his family. #1. Adult FTT, Multifactorial as noted below in addition to Acute Syncopal Event, suspected primarily secondary to recent significant diuresis with possibly orthostasis: EKG in ED w/ atrial fibrillation with RVR with no acute evidence of ischemia, initial trop normal 40. Will admit to PCU, place on a monitored bed to assure no acute myocardial infarction with serial cardiac enzymes and EKGs. Will maintain on fall precautions, obtain admission orthostatic and AM orthostatic VS and if appropriate initiate hydration, will hold diuresis. PT/OT/case management consultation for discharge planning. #2. PAF w/ RVR: We will continue patient home Coumadin with INR trending, will continue patient home metoprolol therapy with dose now especially given poor rate control. #3. Acute Hypoxia, unclear etiology, possibly multifactorial: Patient with underlying sleep apnea, underlying COPD although no overt exacerbation but presentation also as noted with PAF with RVR, will continue supplemental oxygen with wean as tolerated to room air, will continue treatments as noted and await final radiology chest x- ray read also to be cautious. #4. HFpEF with recent exacerbation with notable aortic valvular heart disease: Recent ECHO w/ EF 65 to 70%, concentric LV hypertrophy, moderately enlarged LA,mildly enlarged RA, normal RV size and function, moderate to severe aortic stenosis, place snug KWAKU wraps. Will continue patient home given with INR trending, statin therapy, metoprolol, hold lasix with very judicious hydrate as noted. #5. Chronic COPD: Will maintain on oxygen with wean as tolerated to room air, hold home inhaler in the interim transition to ATC budesonide therapy, PRN albuterol, HOB, IS parameters. #6. Recent right lower back shingles: We will continue patient home acyclovir regimen to completion 02/19/2024, contact exposure precautions. #7. Hypertension: Continue home regimen including metoprolol, temporally holding Lasix given concern for orthostasis with syncopal event as noted above #1, PRN hydralazine. #8. Hyperlipidemia: We will continue patient on statin therapy. #9. Morbid Obesity: Weight loss and lifestyle changes encouraged, nutrition consulted. #10. Chronic venous stasis skin disease with stasis ulcers: Complicated by significant edema, habitus, will place neck Kwaku wraps with elevation, wound RN consulted. #11. History of vertebral fracture with chronic back pain: Following with pain management, Dr. Musa, will continue patient home chronic oxycodone regimen as well as lidocaine patch and encourage offloading, PT/OT/case management consulted for discharge planning. #12. BPH with obstructive symptoms: We will continue patient home prazosin regimen. #13. Former tobacco use: Encourage continued tobacco cessation. #14. RAFAEL: CPAP q HS. #15. DVT prophylaxis: Will continue Coumadin therapy with INR trending. #16. CODE status: Patient HCPOA and living will are not in place. He states hedoes not have a specific individual that he would want to assign as his decision- maker but he does have a spouse. Discussed CODE status at length including difference between FULL code, DNR-CCA and DNR-CC status. Following discussions about the differences in these status, requested Full Code status. Advanced Care Planning Face to Face Time: 16 minutes. Charges/Coding Visit Charges Inpatient E&M: 77642 Init Hosp L3 Procedures Hospitalists Procedures: 32910 Advncd Care Plan 30 Min 02/17/24 0507 <Electronically signed by Karen Sinha MD> Cosigner Signature (if applicable): CC: Dr. Karen Sinha MD; [facility]~ Signed [facility] Work Phone: Hospital Discharge instructions Additional Instructions Blood cultures to be drawn on 03/20/24, 2 weeks after antibiotics completed. Discharge home with 03/10/2024, [facility] PT/OT/SN.[facility] Work Phone: Reason for referral (narrative)No reason for referral information availableWFirelands Regional [facility] Work Phone: Chief Complaint and Reason for Visit Chief Complaint SYNCOPE, DEBILITY, C OMPRESSION FRACTURES SYNCOPE, DEBILITY, COMPRESSION FRACTURES Reason for Visit Compression fx, thor acic spine Debility Elevated lactic acid level Supratherapeutic INR Syncope Chief Complaint SYNCOPE, DEBILITY, C OMPRESSION FRACTURES SYNCOPE, DEBILITY, COMPRESSION FRACTURES SYNCOPE, DEBILITY, COMPRESSION FRACTURES SYNCOPE, DEBILITY, COMPRESSION FRACTURES Reason for Visit Compression fx, thor acic spine Debility Elevated lactic acid level Supratherapeutic INR Syncope Chief Complaint CHF Reason for Visit Anemia Chronic anticoagulation Congestive heart failure History of atrial fibrillation Medical non-compliance Scrotal edema Stool guaiac positive Chief Complaint CHF Congestive heart failure Congestive heart failure Congestive heart failure Congestive heart failure Congestive heart failure Congestive heart failure Congestive heart failure Congestive heart failure Congestive heart failure Congestive heart failure Reason for Visit Anemia Aortic stenosis Chronic anticoagulation Congestive heart failure History of atrial fibrillation Longstanding persistent atrial fibrillation Medical non-compliance Scrotal edema Stool guaiac positive CHF exacerbation Chief Complaint CHF Congestive heart failure Congestive heart failure Congestive heart failure Congestive heart failure Congestive heart failure Congestive heart failure Congestive heart failure Congestive heart failure Congestive heart failure Congestive heart failure Congestive heart failure SYNCOPE, ADULT FTT Reason for Visit Aortic stenosis Chronic anticoagulation Congestive heart failure History of atrial fibrillation Longstanding persistent atrial fibrillation Medical non-compliance Scrotal edema Stool guaiac positive CHF exacerbation Syncope and collapse Chief Complaint CHF Congestive heart failure Congestive heart failure Congestive heart failure Congestive heart failure Congestive heart failure Congestive heart failure Congestive heart failure Congestive heart failure Congestive heart failure Congestive heart failure Congestive heart failure SYNCOPE, ADULT FTT SYNCOPE, ADULT FTT SYNCOPE, ADULT FTT SYNCOPE, ADULT FTT SYNCOPE, ADULT FTT SYNCOPE, ADULT FTT SYNCOPE, ADULT FTT SYNCOPE, ADULT FTT SYNCOPE, ADULT FTT SYNCOPE, ADULT FTT SYNCOPE, ADULT FTT Reason for Visit Aortic stenosis Chronic anticoagulation Congestive heart failure History of atrial fibrillation Longstanding persistent atrial fibrillation Medical non-compliance Scrotal edema Stool guaiac positive CHF exacerbation Aortic stenosis Chronic anticoagulation Longstanding persistent atrial fibrillation Staphylococcus aureus bacteremia Syncope and collapse Chief Complaint CHF Congestive heart failure Congestive heart failure Congestive heart failure Congestive heart failure Congestive heart failure Congestive heart failure Congestive heart failure Congestive heart failure Congestive heart failure Congestive heart failure Congestive heart failure SYNCOPE, ADULT FTT SYNCOPE, ADULT FTT SYNCOPE, ADULT FTT SYNCOPE, ADULT FTT SYNCOPE, ADULT FTT SYNCOPE, ADULT FTT SYNCOPE, ADULT FTT SYNCOPE, ADULT FTT SYNCOPE, ADULT FTT SYNCOPE, ADULT FTT SYNCOPE, ADULT FTT SYNCOPE,ADULT FFT Reason for Visit Scrotal edema CHF exacerbation Stool guaiac positive Staphylococcus aureus bacteremia Syncope and collapse Atrial fibrillation BPH (benign prostatic hyperplasia) Chronic heart failure with preserved ejection fraction (HFpEF) Critical aortic valve stenosis Debility HLD (hyperlipidemia) Hypokalemia Orthostatic hypotension Staphylococcus aureus bacteremia Urinary retention COPD (chronic obstructive pulmonary disease) Hypertension Syncope Chief Complaint CHF Congestive heart failure Congestive heart failure Congestive heart failure Congestive heart failure Congestive heart failure Congestive heart failure Congestive heart failure Congestive heart failure Congestive heart failure Congestive heart failure Congestive heart failure SYNCOPE, ADULT FTT SYNCOPE, ADULT FTT SYNCOPE, ADULT FTT SYNCOPE, ADULT FTT SYNCOPE, ADULT FTT SYNCOPE, ADULT FTT SYNCOPE, ADULT FTT SYNCOPE, ADULT FTT SYNCOPE, ADULT FTT SYNCOPE, ADULT FTT SYNCOPE, ADULT FTT SYNCOPE,ADULT FFT Reason for Visit Scrotal edema CHF exacerbation Stool guaiac positive Syncope and collapse Sepsis Staphylococcus aureus bacteremia Atrial fibrillation BPH (benign prostatic hyperplasia) Chronic heart failure with preserved ejection fraction (HFpEF) Critical aortic valve stenosis Debility HLD (hyperlipidemia) Hypokalemia Urinary retention COPD (chronic obstructive pulmonary disease) Hypertension Orthostatic hypotension Sepsis Staphylococcus aureus bacteremia Syncope Chief Complaint Admit Date S/O INR October 30, 2024 3:18pm S/O INR November 18, 2024 1: 11pm wound December 12, 2024 8 :30am S/O INR January 07, 2025 4:25pm wound January 09, 2025 8:45am S/O INR February 03, 2025 9:4 6am Reason for Visit Admit Date Atrial fibrillation December 12, 2024 8 :30am Bilateral lower extremity edema December 12, 2024 8:30am Debility December 12, 2024 8 :30am Diabetes mellitus with diabetic polyneur opathy December 12, 2024 8:30am Diabetes mellitus with ulcer of calf Jerson uary 2024 8:30am 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 December 12, 2024 8:30am Venous insufficiency (chronic) (peripher al) December 12, 2024 8:30am Atrial fibrillation January 09, 2025 8:45am Bilateral lower extremity edema January 09, 2025 8:45am Debility January 09, 2025 8:45am Diabetes mellitus with diabetic polyneur opathy January 09, 2025 8:45am Diabetes mellitus with ulcer of calf Feb ruary 2024 8:45am 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 January 09, 2025 8:45am Venous insufficiency (chronic) (peripher al) January 09, 2025 8:45am Chief Complaint Admit Date wound December 12, 2024 8 :30am S/O INR January 07, 2025 4:25pm wound January 09, 2025 8:45am S/O INR February 03, 2025 9:4 6am S/O INR March 10, 2025 3:5 7pm 6 M FU March 17, 2025 3:29pm Reason for Visit Admit Date Atrial fibrillation December 12, 2024 8 :30am Bilateral lower extremity edema December 12, 2024 8:30am Debility December 12, 2024 8 :30am Diabetes mellitus with diabetic polyneur opathy December 12, 2024 8:30am Diabetes mellitus with ulcer of calf Jerson uary 2024 8:30am 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 December 12, 2024 8:30am Venous insufficiency (chronic) (peripher al) December 12, 2024 8:30am Atrial fibrillation January 09, 2025 8:45am Bilateral lower extremity edema January 09, 2025 8:45am Debility January 09, 2025 8:45am Diabetes mellitus with diabetic polyneur opathy January 09, 2025 8:45am Diabetes mellitus with ulcer of calf Feb ruary 2024 8:45am 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 January 09, 2025 8:45am Venous insufficiency (chronic) (peripher al) January 09, 2025 8:45am Atrial fibrillation March 17, 2025 3:29pm jail (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) use of 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 s March 17, 2025 3:29pm Hypertension March 17, 2025 3:29pm S/P TAVR (transcatheter aortic valve rep lacement) March 17, 2025 3:29pm Chief Complaint Admit Date S/O INR January 07, 2025 4:25pm wound January 09, 2025 8:45am S/O INR February 03, 2025 9:4 6am S/O INR March 10, 2025 3:5 7pm 6 M FU March 17, 2025 3:29pm wound April 10, 2025 8:15a m S/O INR April 12, 2025 9:51a m Reason for Visit Admit Date Atrial fibrillation January 09, 2025 8:45am Bilateral lower extremity edema January 09, 2025 8:45am Debility January 09, 2025 8:45am Diabetes mellitus with diabetic polyneur opathy January 09, 2025 8:45am Diabetes mellitus with ulcer of calf Feb ruary 2024 8:45am 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 January 09, 2025 8:45am Venous insufficiency (chronic) (peripher al) January 09, 2025 8:45am Atrial fibrillation March 17, 2025 3:29pm jail (current) use of 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 s March 17, 2025 3:29pm Hypertension March 17, 2025 3:29pm S/P TAVR (transcatheter aortic valve rep lacement) March 17, 2025 3:29pm Aortic stenosis March 18, 2025 4:43pm Atrial fibrillation March 18, 2025 4:43pm Bilateral lower extremity edema March 18, 2025 4:43pm BPH (benign prostatic hyperplasia) March 182024 4:43pm Debility March 18, 2025 4:43pm Diabetes mellitus with diabetic polyneur opathy March 18, 2025 4:43pm Diabetes mellitus with ulcer of calf March 18, 2025 4:43pm HLD (hyperlipidemia) March 18, 2025 4:43p 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 March 18, 2025 4:43pm Hypertension March 18, 2025 4:43pm 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 March 18, 2025 4:43pm S/P TAVR (transcatheter aortic valve rep lacement) March 18, 2025 4:43pm Venous insufficiency (chronic) (peripher al) March 18, 2025 4:43pm Bilateral lower extremity edema March 8:15am Diabetes mellitus with diabetic polyneur opathy April 10, 2025 8:15am Diabetes mellitus with ulcer of calf April 10, 2025 8:15am Lipodermatosclerosis of both lower extre mities April 10, 2025 8:15am 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 April 10, 2025 8:15am Venous insufficiency (chronic) (peripher al) April 10, 2025 8:15am Chief Complaint Admit Date S/O INR February 03, 2025 9:4 6am S/O INR March 10, 2025 3:5 7pm 6 M FU March 17, 2025 3:29pm wound April 10, 2025 8:15a m S/O INR April 12, 2025 9:51a m wound May 08, 2025 8:00 am Reason for Visit Admit Date Atrial fibrillation March 17, 2025 3:29pm jail (current) use of 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 s March 17, 2025 3:29pm Hypertension March 17, 2025 3:29pm S/P TAVR (transcatheter aortic valve rep lacement) March 17, 2025 3:29pm Aortic stenosis March 18, 2025 4:43pm Atrial fibrillation March 18, 2025 4:43pm Bilateral lower extremity edema March 18, 2025 4:43pm BPH (benign prostatic hyperplasia) March 182024 4:43pm Debility March 18, 2025 4:43pm Diabetes mellitus with diabetic polyneur opathy March 18, 2025 4:43pm Diabetes mellitus with ulcer of calf March 18, 2025 4:43pm HLD (hyperlipidemia) March 18, 2025 4:43p 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 March 18, 2025 4:43pm Hypertension March 18, 2025 4:43pm Non-pressure chronic ulcer of left calf with fat layer exposed March 18, 2025 4:43pm S/P TAVR (transcatheter aortic valve rep lacement) March 18, 2025 4:43pm Venous insufficiency (chronic) (peripher al) March 18, 2025 4:43pm Bilateral lower extremity edema March 8:15am Diabetes mellitus with diabetic polyneur opathy April 10, 2025 8:15am Diabetes mellitus with ulcer of calf April 10, 2025 8:15am Lipodermatosclerosis of both lower extre mities April 10, 2025 8:15am Non-pressure chronic ulcer of left calf with fat layer exposed April 10, 2025 8:15am Venous insufficiency (chronic) (peripher al) April 10, 2025 8:15am Bilateral lower extremity edema April 8:00am Diabetes mellitus with diabetic polyneur opathy May 08, 2025 8:00am Diabetes mellitus with ulcer of calf Joe 2024 8:00am Lipodermatosclerosis of both lower extre mities May 08, 2025 8:00am Non-pressure chronic ulcer of left calf with fat layer exposed May 08, 2025 8:00am Venous insufficiency (chronic) (peripher al) May 08, 2025 8:00am Chief Complaint Admit Date S/O INR February 03, 2025 9:4 6am S/O INR March 10, 2025 3:5 7pm 6 M FU March 17, 2025 3:29pm wound April 10, 2025 8:15a m S/O INR April 12, 2025 9:51a m wound May 08, 2025 8:00 am wound May 15, 2025 8:13a m S/O INR May 15, 2025 9:06a m Reason for Visit Admit Date Atrial fibrillation March 17, 2025 3:29pm jail (current) use of 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 s March 17, 2025 3:29pm Hypertension March 17, 2025 3:29pm S/P TAVR (transcatheter aortic valve rep lacement) March 17, 2025 3:29pm Aortic stenosis March 18, 2025 4:43pm Atrial fibrillation March 18, 2025 4:43pm Bilateral lower extremity edema March 18, 2025 4:43pm BPH (benign prostatic hyperplasia) March 182024 4:43pm Debility March 18, 2025 4:43pm Diabetes mellitus with diabetic polyneur opathy March 18, 2025 4:43pm Diabetes mellitus with ulcer of calf March 18, 2025 4:43pm HLD (hyperlipidemia) March 18, 2025 4:43p 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 March 18, 2025 4:43pm Hypertension March 18, 2025 4:43pm Non-pressure chronic ulcer of left calf with fat layer exposed March 18, 2025 4:43pm S/P TAVR (transcatheter aortic valve rep lacement) March 18, 2025 4:43pm Venous insufficiency (chronic) (peripher al) March 18, 2025 4:43pm Bilateral lower extremity edema March 8:15am Diabetes mellitus with diabetic polyneur opathy April 10, 2025 8:15am Diabetes mellitus with ulcer of calf April 10, 2025 8:15am Lipodermatosclerosis of both lower extre mities April 10, 2025 8:15am Non-pressure chronic ulcer of left calf with fat layer exposed April 10, 2025 8:15am Venous insufficiency (chronic) (peripher al) April 10, 2025 8:15am Bilateral lower extremity edema April 8:00am Diabetes mellitus with diabetic polyneur opathy May 08, 2025 8:00am Diabetes mellitus with ulcer of calf Joe 2024 8:00am Lipodermatosclerosis of both lower extre mities May 08, 2025 8:00am Non-pressure chronic ulcer of left calf with fat layer exposed May 08, 2025 8:00am Venous insufficiency (chronic) (peripher al) May 08, 2025 8:00am Bilateral lower extremity edema May 8:13am Diabetes mellitus with diabetic polyneur opathy May 15, 2025 8:13am Diabetes mellitus with ulcer of calf Humberto 2024 8:13am Lipodermatosclerosis of both lower extre mities May 15, 2025 8:13am Non-pressure chronic ulcer of left calf with fat layer exposed May 15, 2025 8:13am Venous insufficiency (chronic) (peripher al) May 15, 2025 8:13am Chief Complaint Admit Date S/O INR March 10, 2025 3:5 7pm 6 M FU March 17, 2025 3:29pm wound April 10, 2025 8:15a m S/O INR April 12, 2025 9:51a m wound May 08, 2025 8:00 am wound May 15, 2025 8:13a m S/O INR May 15, 2025 9:06a m Chief Complaint Admit Date 6 M FU March 17, 2025 3:29pm wound April 10, 2025 8:15a m S/O INR April 12, 2025 9:51a m wound May 08, 2025 8:00 am wound May 15, 2025 8:13a m S/O INR May 15, 2025 9:06a m E ORDER AND ORDER SCANNED July 01, 2 025 5:06pm Advance Directives No Advanced Directives Records Found Advance Directive Response Recorded Date/ Time Living Will No September 06 5:49pm Power of Director Of Bands No 2022 5:49pm Advance Directive Response Recorded Date/ Time Living Will No September 06 11:34pm Power of Director Of Bands No 2022 11:34pm Advance Directive Response Recorded Date/ Time Living Will No September 06 10:34pm Power of Director Of Bands No 2022 10:34pm Advance Directive Response Recorded Date/ Time Living Will No February 07, 2024 8:26pm Power of Director Of Bands No February 06 8:26pm Advance Directive Response Recorded Date/ Time Living Will No February 17, 2024 2:53am Power of Director Of Bands No February 16 2:53am Advance Directive Response Recorded Date/ Time Living Will No February 17, 2024 5:27am Power of Director Of Bands No February 16 5:27am Advance Directive Response Recorded Date/ Time Living Will No February 26, 2024 11:00am Power of Director Of Bands No February 25 11:00am Date Activated Date Inactivated Comments 07/08/2024 3:03 PM 07/09/2024 6:22 PM Date Activated Date Inactivated Comments 07/08/2024 10:49 AM 07/08/2024 3:03 PM Advance Directive Response Recorded Date/ Time Living Will No November 13 5:21am Do you have a Healthcare Power of Director Of Bands? No November 13, 2024 5:21am Living Will No December 14 2:30am Do you have a Healthcare Power of Director Of Bands? No December 14, 2024 2:30am Living Will No October 13 12:32am Do you have a Healthcare Power of Director Of Bands? No October 13, 2024 12:32am Living Will No January 11, 2025 5:46am Do you have a Healthcare Power of Director Of Bands? No January 11, 2025 5:46am Advance Directives No June 03 7:20am Advance Directive Response Recorded Date/ Time Living Will No June 03, 2024 7:20am Do you have a Healthcare Power of Director Of Bands? No June 03, 2024 7:20am Living Will No December 14 2:30am Do you have a Healthcare Power of Director Of Bands? No December 14, 2024 2:30am Living Will No February 10, 2025 10:08pm Do you have a Healthcare Power of Director Of Bands? No February 10, 2025 10:08pm Living Will No January 11, 2025 5:46am Do you have a Healthcare Power of Director Of Bands? No January 11, 2025 5:46am Advance Directives No June 03 7:20am Advance Directive Response Recorded Date/ Time Living Will No June 03, 2024 7:20am Do you have a Healthcare Power of Director Of Bands? No June 03, 2024 7:20am Living Will No December 14 2:30am Do you have a Healthcare Power of Director Of Bands? No December 14, 2024 2:30am Living Will No February 10, 2025 10:08pm Do you have a Healthcare Power of Director Of Bands? No February 10, 2025 10:08pm Living Will No March 12, 2025 8:58pm Do you have a Healthcare Power of Director Of Bands? No March 12, 2025 8:58pm Living Will No January 11, 2025 5:46am Do you have a Healthcare Power of Director Of Bands? No January 11, 2025 5:46am Advance Directives No June 03 7:20am Advance Directive Response Recorded Date/ Time Living Will No June 03, 2024 7:20am Do you have a Healthcare Power of Director Of Bands? No June 03, 2024 7:20am Living Will No February 10, 2025 10:08pm Do you have a Healthcare Power of Director Of Bands? No February 10, 2025 10:08pm Living Will No March 12, 2025 8:58pm Do you have a Healthcare Power of Director Of Bands? No March 12, 2025 8:58pm Living Will No January 11, 2025 5:46am Do you have a Healthcare Power of Director Of Bands? No January 11, 2025 5:46am Advance Directives No June 03 7:20am Advance Directive Response Recorded Date/ Time Living Will No June 03, 2024 7:20am Do you have a Healthcare Power of Director Of Bands? No June 03, 2024 7:20am Living Will No February 10, 2025 10:08pm Do you have a Healthcare Power of Director Of Bands? No February 10, 2025 10:08pm Living Will No March 12, 2025 8:58pm Do you have a Healthcare Power of Director Of Bands? No March 12, 2025 8:58pm Living Will No April 12, 2025 9 :55pm Do you have a Healthcare Power of Director Of Bands? No April 12, 2025 9:55pm Living Will No January 11, 2025 5:46am Do you have a Healthcare Power of Director Of Bands? No January 11, 2025 5:46am Advance Directives No June 03 7:20am Advance Directive Response Recorded Date/ Time Living Will No June 03, 2024 7:20am Do you have a Healthcare Power of Director Of Bands? No June 03, 2024 7:20am Living Will No February 10, 2025 10:08pm Do you have a Healthcare Power of Director Of Bands? No February 10, 2025 10:08pm Living Will No March 12, 2025 8:58pm Do you have a Healthcare Power of Director Of Bands? No March 12, 2025 8:58pm Living Will No April 12, 2025 9 :55pm Do you have a Healthcare Power of Director Of Bands? No April 12, 2025 9:55pm Advance Directives No June 03 7:20am Advance Directive Response Recorded Date/ Time Living Will No June 03, 2024 7:20am Do you have a Healthcare Power of Director Of Bands? No June 03, 2024 7:20am Living Will No March 12, 2025 8:58pm Do you have a Healthcare Power of Director Of Bands? No March 12, 2025 8:58pm Living Will No April 12, 2025 9 :55pm Do you have a Healthcare Power of Director Of Bands? No April 12, 2025 9:55pm Advance Directives No June 03 7:20am Summary Purpose Family History No Family History Records Found Relationship Condition Age at Onset Recorded Date/T patricia mother Malignant neoplasm Unknown father Coronary artery disease Unknown Cardiac disease Unknown Hypertension Unknown Myocardial infarction Unknown Reason for Referral Specialty Diagnoses / Procedures Referred By Contac t Referred To Contact Radiology Diagnoses Severe aortic stenosis Procedures CTA Angiogram TAVR Oscar Bower, AIR ANTISUBMARINE OFFICER - INTERVENTION TEACHER [address] [phone] Referral ID Status Reason Start Date Expiration Date Visits Re quested Visits Authorized [id number] Closed 07/02/2024 08/31/2024 1 1 Specialty Diagnoses / Procedures Referred By Contac t Referred To Contact Cardiology Diagnoses Aortic valve stenosis, etiology of cardiac valve disease unspecified Procedures Transthoracic echocardiogram (TTE) complete with contrast, bubble, strain, and 3D PRN DE ECHO TTHRC R-T 2D W/WOM-MODE COMPL SPEC&COLR D DE TTE W OR WO FOL WCON,DOPPLER Oscar Bower, AIR ANTISUBMARINE OFFICER - INTERVENTION TEACHER [address] [place] [address] Referral ID Status Reason Start Date Expiration Date V isits Requested Visits Authorized [id number] Pending Review 07/09/2024 07/09/2025 1 1 Specialty Diagnoses / Procedures Referred By Contac t Referred To Contact Cardiology Diagnoses Severe aortic stenosis Procedures Transthoracic echocardiogram (TTE) complete with contrast, bubble, strain, and 3D PRN DE ECHO TTHRC R-T 2D W/WOM-MODE COMPL SPEC&COLR D DE TTE W OR WO FOL WCON,DOPPLER Tri Newberry, AIR ANTISUBMARINE OFFICER - INTERVENTION TEACHER [address] [place] [address] Referral ID Status Reason Start Date Expiration Date V isits Requested Visits Authorized [id number] Pending Review 07/16/2024 07/16/2025 1 1 Additional Source Comments Source Comments (unrecognize d section and content) In the event this informatio n is protected by the Federal Confidentiality of Alcohol and Drug Abuse Patient Records regulations: The Federal rules restrict any use of the information to criminally investigate or prosecute any alcohol or drug abuse patient.[facility] the event this information is protected by the Federal Confidentiality of Alcohol and Drug Abuse Patient Records regulations: The Federal rules restrict any use of the information to criminally investigate or prosecute any alcohol or drug abuse patient.[facility] the event this information is protected by the Federal Confidentiality of Alcohol and Drug Abuse Patient Records regulations: The Federal rules restrict any use of the information to criminally investigate or prosecute any alcohol or drug abuse patient[facility] Reason for Visit (unrecogniz ed section and content) Reason Onset Date Comments Population Health Navigation Outreach 06/23/2022 [employer] Reason Onset Date Comments Population Health Navigation Outreach 01/20/2023 [employer] Care Gaps Reason Onset Date Comments Population Health Navigation Outreach 01/02/2024 [employer] care gaps Reason Onset Date Comments Appointment Request 04/23/2024 TAVR referra l Reason Comments Cardiac Valve Problem New Patient [facility] Specialty Diagnoses / Procedures Referred By Geraldine eaton Referred To Contact Cardiology Diagnoses Unspecified diastolic (congestive) heart failure (HCC) Nonrheumatic aortic (valve) stenosis Procedures DE OFFICE/OP CONSLTJ NEW/EST PT MOD MDM 40 MINUTES [facility] Card [address] [place] [address] [facility] [address] [place] [address] Referral ID Status Reason Start Date Expiration Date Visits Re quested Visits Authorized [id number] Closed 04/15/2024 10/12/2024 1 1 Reason Comments Pre-op Exam Updated H&P Specialty Diagnoses / Procedures Referred By Contac t Referred To Contact Radiology Diagnoses Severe aortic stenosis Procedures CTA Angiogram TAVR Oscar Bower Alejandra, AIR ANTISUBMARINE OFFICER - INTERVENTION TEACHER [address] [place] [address] Referral ID Status Reason Start Date Expiration Date Visits Re quested Visits Authorized [id number] Closed 07/02/2024 08/31/2024 1 1 Specialty Diagnoses / Procedures Referred By Contac t Referred To Contact Diagnoses Severe aortic stenosis Procedures DE REPLACE AORTIC VALVE PERQ FEMORAL ARTRY APPROACH TRANSCATHETER AORTIC VALVE REPLACEMENT, TRANSTHORACIC ECHOCARDIOGRAM TRANSCATHETER AORTIC VALVE REPLACEMENT, TRANSTHORACIC ECHOCARDIOGRAM Jero Reyes MD [address] [place] [address] Referral ID Status Reason Start Date Expiration Date Visits Re quested Visits Authorized [id number] 06/13/2024 1 1 Reason Comments Follow-up One week s/p TAVR Care Teams (unrecognized sec tion and content) Team Status: Active Member Role Status Dates Dr. Freedom Sutton MD Primary Care Provider Active Team Status: Inactive Member Role Status Dates Dr. Freedom Sutton MD Primary Care Provider Active Start: October 30, 2024 End: October 30, 2024 Dr. Shady Obrien MD Attending Provider Active Start: October 30, 2024 End: October 30, 2024 Dr. Shady Obrien MD Referring Provider Active Start: October 30, 2024 End: October 30, 2024 Team Status: Inactive Member Role Status Dates Dr. Freedom Sutton MD Primary Care Provider Active Start: November 18, 2024 End: November 18, 2024 Dr. Shady Obrien MD Attending Provider Active Start: November 18, 2024 End: November 18, 2024 Dr. Shady Obrien MD Referring Provider Active Start: November 18, 2024 End: November 18, 2024 Dr. Angel Musa MD Other Provider Active Star t: November 18, 2024 End: November 18, 2024 Team Status: Inactive Member Role Status Dates Dr. Freedom Sutton MD Primary Care Provider Active Start: December 10, 2024 End: December 10, 2024 Dr. Freedom Sutton MD Attending Provider Active Start: December 10, 2024 End: December 10, 2024 Team Status: Inactive Member Role Status Dates Dr. Freedom Sutton MD Primary Care Provider Active Start: December 12, 2024 End: December 13, 2024 Dr. Shady Ogden DPM Attending Provider Active Start: December 12, 2024 End: December 13, 2024 Dr. Shady Ogden DPM Referring Provider Active Start: December 12, 2024 End: December 13, 2024 Team Status: Inactive Member Role Status Dates Dr. Freedom Sutton MD Primary Care Provider Active Start: January 07, 2025 End: January 10, 2025 Dr. Shady Obrien MD Attending Provider Active Start: January 07, 2025 End: January 10, 2025 Dr. Shady Obrien MD Referring Provider Active Start: January 07, 2025 End: January 10, 2025 Dr. Angel Musa MD Other Provider Active Star t: January 07, 2025 End: January 10, 2025 Team Status: Inactive Member Role Status Dates Dr. Freedom Sutton MD Primary Care Provider Active Start: January 09, 2025 End: January 10, 2025 Dr. Shady Ogden DPM Attending Provider Active Start: January 09, 2025 End: January 10, 2025 Dr. Shady Ogden DPM Referring Provider Active Start: January 09, 2025 End: January 10, 2025 Team Status: Inactive Member Role Status Dates Dr. Freedom Sutton MD Primary Care Provider Active Start: February 03, 2025 End: February 03, 2025 Dr. Shady Obrien MD Attending Provider Active Start: February 03, 2025 End: February 03, 2025 Dr. Shady Obrien MD Referring Provider Active Start: February 03, 2025 End: February 03, 2025 Dr. Angel Musa MD Other Provider Active Star t: February 03, 2025 End: February 03, 2025 Team Status: Active Member Role Status Dates [facility] Primary Care Provider Active Dr. Noman Cloud MD Emergency Provider Active Dr. Aj Randolph DO Admit Provider, Attending Provid er, Other Provider Active Team Status: Active Member Role Status Dates [facility] Primary Care Provider Active Dr. Osiris Yip MD Attending Provider Active Team Status: Active Member Role Status Dates [facility] Primary Care Provider Active Dr. Noman Cloud MD Emergency Provider Active Dr. Aj Randolph DO Admit Provider, Other Provider A ctive Dr. Bharat Wilkins , DO Attending Provider, Other Provider Active Team Status: Active Member Role Status Dates [facility] Primary Care Provider Active Dr. Noman Cloud MD Emergency Provider Active Dr. Aj Randolph , DO Admit Provider, Other Provider A ctive Dr. Osiris Yip MD Attending Provider, Other Provid er Active Dr. Brady Kemp , DO Other Provider Active Dr. Bharat Wilkins , DO Other Provider Active Team Status: Active Member Role Status Dates [facility] Primary Care Provider Active Dr. Noman Cloud MD Emergency Provider Active Dr. Aj Randolph , DO Admit Provider, Other Provider A ctive Dr. Osiris Yip MD Other Provider Active Dr. Brady Kemp , DO Attending Provider, Other Pro vider Active Dr. Bharat Wilkins , DO Other Provider Active Team Status: Active Member Role Status Dates [facility] Primary Care Provider Active Dr. Noman Cloud MD Emergency Provider Active Dr. Aj Randolph , DO Admit Provider, Other Provider A ctive Dr. Osiris Yip MD Other Provider Active Dr. Bharat Wilkins , DO Attending Provider, Other Provider Active Dr. Brady Kemp , DO Other Provider Active Team Status: Active Member Role Status Dates [facility] Primary Care Provider Active Dr. Noman Cloud MD Emergency Provider Active Dr. Karen Sinha MD Admit Provider, Other Provider Active Dr. Bharat Wilkins , DO Attending Provider, Other Provider Active Team Status: Active Member Role Status [facility] Primary Care Provider Active Dr. Noman Cloud MD Emergency Provider Active Dr. Karen Sinha MD Admit Provider, Other Provider Active Dr. Angela Welch , Referring Provider, Other Provide r Active Dr. Bharat Wilkins , DO Other Provider Active Dr. Edvin Currie MD Other Provider Active Dr. Shady Obrien MD Attending Provider, Other Prov ider Active Team Status: Active Member Role Status Dates [facility] Primary Care Provider Active Dr. Osbaldo Laird MD Attending Provider Active Team Status: Active Member Role Status Dates [facility] Primary Care Provider Active Dr. Noman Colud MD Emergency Provider Active Dr. Karen Sinha MD Admit Provider, Other Provider Active Dr. Angela Welch , DO Attending Provider, Other Provide r Active Dr. Bharat Wilkins , DO Other Provider Active Dr. Edvin Currie MD Other Provider Active Dr. Shady Obrien MD Other Provider Active Team Status: Active Member Role Status Dates [facility] Primary Care Provider Active Dr. Noman Cloud MD Emergency Provider Active Dr. Karen Sinha MD Admit Provider, Other Provider Active Dr. Angela Welch , DO Other Provider Active Dr. Bharat Wilkins , DO Other Provider Active Dr. Edvin Currie MD Other Provider Active Dr. Shady Obrien MD Attending Provid er, Referring Provider, Other Provider Active Team Status: Active Member Role Status Dates [facility] Primary Care Provider Active Dr. Osbaldo Laird MD Attending Provider Active Dr. Shady Obrien MD Referring Provider Active Team Status: Inactive Member Role Status Dates [facility] Primary Care Provider Active Dr. Noman Cloud MD Emergency Provider Active Dr. Aj Randolph , DO Admit Provider, Other Provider A ctive Dr. Osiris Yip MD Other Provider Active Dr. Bharat Wilkins , DO Attending Provider, Other Provider Active Dr. Brady Kemp , DO Other Provider Active Team Status: Inactive Member Role Status Dates [facility] Primary Care Provider Active Dr. Noman Cloud MD Emergency Provider Active Dr. Karen Sinha MD Admit Provider, Other Provider Active Dr. Angela Welch , Attending Provider Active Dr. Bharat Wilkins , DO Other Provider Active Dr. Edvin Currie MD Other Provider Active Dr. Shady Obrien MD Other Provider Active Team Status: Inactive Member Role Status Dates [facility] Primary Care Provider Active Dr. Freedom Sutton MD Admit Provider, Attending Provid er Active Team Status: Inactive Member Role Status Dates Dr. Freedom Sutton MD Primary Care Provider, Attending Provider Active Team Status: Active Member Role Status Dates Dr. Freedom Sutton MD Primary Care Provi moni, Attending Provider, Referring Provider Active Team Status: Active Member Role Status Dates [facility] Primary Care Provider Active Team Status: Inactive Member Role Status Dates [facility] Primary Care Provider Active Dr. Angel Musa MD Attending Provider, Referring Pr ovider Active Distribution Field Technician Relationship Specialty Start Date End Date Matilde Ross (Retired) [address] [place], [place] [id number] PCP - General 09/05/02 Distribution Field Technician Relationship Specialty Start Date End Date Administration, [facility] PCP - General 01/20/23 Distribution Field Technician Relationship Specialty Start Date End Date Administration, [facility] PCP - General 01/20/23 Team Status: Active Member Role Status Dates [facility] Primary Care Provider Active Dr. Noman Cloud MD Emergency Provider Active Dr. Aj Randolph , DO Admit Provider, Attending Provid er Active Team Status: Active Member Role Status [facility] Primary Care Provider Active Dr. Noman Cloud MD Emergency Provider Active Dr. Karen Sinha MD Admit Provider, Attending Prov ider Active Team Status: Active Member Role Status Dates [facility] Primary Care Provider Active Dr. Noman Cloud MD Emergency Provider Active Dr. Karen Sinha MD Admit Provider, Other Provider Active Dr. Angela Welch , Other Provider Active Dr. Bharat Wilkins , DO Other Provider Active Dr. Edvin Currie MD Other Provider Active Dr. Shady Obrien MD Attending Provider, Other Prov ider Active Team Status: Inactive Member Role Status Dates Dr. Freedom Sutton MD Primary Care Provi moni, Attending Provider, Referring Provider Active Distribution Field Technician Relationship Specialty Start Date End Date Moriah Sutton MD [address] [place] [address] PCP - General Geriatric Medicine 05/14/24 Distribution Field Technician Relationship Specialty Start Date End Date Moriah Sutton MD [address] [place] [id number] PCP - General Geriatric Medicine 05/14/24 Distribution Field Technician Relationship Specialty Start Date End Date Moriah Sutton MD [address] [place] [phone] PCP - General Geriatric Medicine 05/14/24 Distribution Field Technician Relationship Specialty Start Date End Date Moriah Sutton MD [address] [address] [place] [id number] PCP - General Geriatric Medicine 05/14/24 Distribution Field Technician Relationship Specialty Start Date End Date Moriah Sutton MD [address] [place] [address] PCP - General Geriatric Medicine 05/14/24 Distribution Field Technician Relationship Specialty Start Date End Date Moriah Sutton MD [address] [place] [address] PCP - General Geriatric Medicine 05/14/24 Distribution Field Technician Relationship Specialty Start Date End Date Moriah Sutton MD [address] [place] [address] PCP - General Geriatric Medicine 05/14/24 Distribution Field Technician Relationship Specialty Start Date End Date Moriah Sutton MD [address] [place] [address] PCP - General Geriatric Medicine 05/14/24 Distribution Field Technician Relationship Specialty Start Date End Date Moriah Sutton MD [address] [place] [address] PCP - General Geriatric Medicine 05/14/24 Distribution Field Technician Relationship Specialty Start Date End Date Moriah Sutton MD [address] [place] [address] PCP - General Geriatric Medicine 05/14/24 Team Status: Inactive Member Role Status Dates Dr. Freedom Sutton MD Primary Care Provider Active Start: March 10, 2025 End: March 12, 2025 Dr. Shady Obrien MD Attending Provider Active Start: March 10, 2025 End: March 12, 2025 Dr. Shady bOrien MD Referring Provider Active Start: March 10, 2025 End: March 12, 2025 Dr. Angel Musa MD Other Provider Active Star t: March 10, 2025 End: March 12, 2025 Team Status: Inactive Member Role Status Dates Dr. Freedom Sutton MD Primary Care Provider Active Start: March 17, 2025 End: March 17, 2025 Dr. Freedom Sutton MD Referring Provider Active Start: March 17, 2025 End: March 17, 2025 Kailyn Palma NP, PATIENT TRANSITION SPECIALIST-C Attending Provider Active Start: March 17, 2025 End: March 17, 2025 Team Status: Inactive Member Role Status Dates Dr. Freedom Sutton MD Primary Care Provider Active Start: March 18, 2025 End: March 18, 2025 Dr. Freedom Sutton MD Attending Provider Active Start: March 18, 2025 End: March 18, 2025 Dr. Freedom Sutton MD Referring Provider Active Start: March 18, 2025 End: March 18, 2025 Team Status: Active Member Role Status Dates Dr. Freedom Sutton MD Primary Care Provider Active Start: March 27, 2025 Dr. Freedom Sutton MD Referring Provider Active Start: March 27, 2025 Dr. Freedom Sutton MD Other Provider Active Star t: March 27, 2025 Dr. Kirby Santiago MD Attending Provider Active Start: March 27, 2025 Team Status: Active Member Role Status Dates Dr. Freedom Sutton MD Primary Care Provider Active Start: April 10, 2025 Dr. Freedom Sutton MD Referring Provider Active Start: April 10, 2025 Dr. Shady Ogden DPM Attending Provider Active Start: April 10, 2025 Team Status: Inactive Member Role Status Dates Dr. Freedom Sutton MD Primary Care Provider Active Start: April 12, 2025 End: April 12, 2025 Dr. Shady Obrien MD Attending Provider Active Start: April 12, 2025 End: April 12, 2025 Dr. Shayd Obrien MD Referring Provider Active Start: April 12, 2025 End: April 12, 2025 Dr. Angel Musa MD Other Provider Active Star t: April 12, 2025 End: April 12, 2025 Team Status: Inactive Member Role Status Dates Dr. Freedom Sutton MD Primary Care Provider Active Start: April 10, 2025 End: April 12, 2025 Dr. Freedom Sutton MD Referring Provider Active Start: April 10, 2025 End: April 12, 2025 Dr. Shady Ogden DPM Attending Provider Active Start: April 10, 2025 End: April 12, 2025 Team Status: Active Member Role/Relationship Status Dates Dr. Freedom Sutton MD Primary Care Provider Active Team Status: Inactive Member Role/Relationship Status Dates Dr. Freedom Sutton MD Primary Care Provider Active Start: February 03, 2025 End: February 03, 2025 Dr. Shady Obrien MD Attending Provider Active Start: February 03, 2025 End: February 03, 2025 Dr. Shady Obrien MD Referring Provider Active Start: February 03, 2025 End: February 03, 2025 Dr. Angel Musa MD Other Provider Active Star t: February 03, 2025 End: February 03, 2025 Team Status: Inactive Member Role/Relationship Status Dates Dr. Freedom Sutton MD Primary Care Provider Active Start: March 10, 2025 End: March 12, 2025 Dr. Shady Obrien MD Attending Provider Active Start: March 10, 2025 End: March 12, 2025 Dr. Shady Obrien MD Referring Provider Active Start: March 10, 2025 End: March 12, 2025 Dr. Angel Musa MD Other Provider Active Star t: March 10, 2025 End: March 12, 2025 Team Status: Inactive Member Role/Relationship Status Dates Dr. Freedom Sutton MD Primary Care Provider Active Start: March 17, 2025 End: March 17, 2025 Dr. Freedom Sutton MD Referring Provider Active Start: March 17, 2025 End: March 17, 2025 Kailyn Palma PATIENT TRANSITION SPECIALIST, PATIENT TRANSITION SPECIALIST-C Attending Provider Active Start: March 17, 2025 End: March 17, 2025 Team Status: Inactive Member Role/Relationship Status Dates Dr. Freedom Sutton MD Primary Care Provider Active Start: March 18, 2025 End: March 18, 2025 Dr. Freedom Sutton MD Attending Provider Active Start: March 18, 2025 End: March 18, 2025 Dr. Freedom Sutton MD Referring Provider Active Start: March 18, 2025 End: March 18, 2025 Team Status: Active Member Role/Relationship Status Dates Dr. Freedom Sutton MD Primary Care Provider Active Start: March 27, 2025 Dr. Freedom Sutton MD Referring Provider Active Start: March 27, 2025 Dr. Freedmo Sutton MD Other Provider Active Star t: March 27, 2025 Dr. Kirby Santiago MD Attending Provider Active Start: March 27, 2025 Team Status: Inactive Member Role/Relationship Status Dates Dr. Freedom Sutton MD Primary Care Provider Active Start: April 10, 2025 End: April 12, 2025 Dr. Freedom Sutton MD Referring Provider Active Start: April 10, 2025 End: April 12, 2025 Dr. Shady Ogden DPM Attending Provider Active Start: April 10, 2025 End: April 12, 2025 Team Status: Inactive Member Role/Relationship Status Dates Dr. Freedom Sutton MD Primary Care Provider Active Start: April 12, 2025 End: April 12, 2025 Dr. Shady Obrien MD Attending Provider Active Start: April 12, 2025 End: April 12, 2025 Dr. Shady Obrien MD Referring Provider Active Start: April 12, 2025 End: April 12, 2025 Dr. Angel Musa MD Other Provider Active Star t: April 12, 2025 End: April 12, 2025 Team Status: Inactive Member Role/Relationship Status Dates Dr. Freedom Sutton MD Primary Care Provider Active Start: May 08, 2025 End: May 12, 2025 Dr. Freedom Sutton MD Referring Provider Active Start: May 08, 2025 End: May 12, 2025 Dr. Shady Ogden DPM Attending Provider Active Start: May 08, 2025 End: May 12, 2025 Team Status: Inactive Member Role/Relationship Status Dates Dr. Freedom Sutton MD Primary Care Provider Active Start: May 15, 2025 End: May 27, 2025 Dr. Freedom Sutton MD Referring Provider Active Start: May 15, 2025 End: May 27, 2025 Dr. Shady Ogden DPM Attending Provider Active Start: May 15, 2025 End: May 27, 2025 Team Status: Active Member Role/Relationship Status Dates Dr. Freedom Sutton MD Primary Care Provider Active Start: May 15, 2025 Dr. Shady Obrien MD Attending Provider Active Start: May 15, 2025 Dr. Shady Obrien MD Referring Provider Active Start: May 15, 2025 Dr. Angel Musa MD Other Provider Active Star t: May 15, 2025 Team Status: Inactive Member Role/Relationship Status Dates Dr. Freedom Sutton MD Primary Care Provider Active Start: May 27, 2025 End: May 27, 2025 Dr. Angel Musa MD Attending Provider Active Start: May 27, 2025 End: May 27, 2025 Dr. Angel Musa MD Referring Provider Active Start: May 27, 2025 End: May 27, 2025 Team Status: Inactive Member Role/Relationship Status Dates Dr. Freedom Sutton MD Primary Care Provider Active Start: March 10, 2025 End: March 12, 2025 Dr. Shady Obrien MD Attending Provider Active Start: March 10, 2025 End: March 12, 2025 Dr. Shady Obrien MD Referring Provider Active Start: March 10, 2025 End: March 12, 2025 Dr. Angel Musa MD Other Provider Active Star t: March 10, 2025 End: March 12, 2025 Team Status: Inactive Member Role/Relationship Status Dates Dr. Freedom Sutton MD Primary Care Provider Active Start: March 17, 2025 End: March 17, 2025 Dr. Freedom Sutton MD Referring Provider Active Start: March 17, 2025 End: March 17, 2025 Kailyn Palma PATIENT TRANSITION SPECIALIST, PATIENT TRANSITION SPECIALIST-C Attending Provider Active Start: March 17, 2025 End: March 17, 2025 Team Status: Inactive Member Role/Relationship Status Dates Dr. Freedom Sutton MD Primary Care Provider Active Start: March 18, 2025 End: March 18, 2025 Dr. Freedom Sutton MD Attending Provider Active Start: March 18, 2025 End: March 18, 2025 Dr. Freedom Sutton MD Referring Provider Active Start: March 18, 2025 End: March 18, 2025 Team Status: Active Member Role/Relationship Status Dates Dr. Freedom Sutton MD Primary Care Provider Active Start: March 27, 2025 Dr. Freedom Sutton MD Referring Provider Active Start: March 27, 2025 Dr. Freedom Sutton MD Other Provider Active Star t: March 27, 2025 Dr. Kirby Santiago MD Attending Provider Active Start: March 27, 2025 Team Status: Inactive Member Role/Relationship Status Dates Dr. Freedom Sutton MD Primary Care Provider Active Start: April 10, 2025 End: April 12, 2025 Dr. Freedom Sutton MD Referring Provider Active Start: April 10, 2025 End: April 12, 2025 Dr. Shady Ogden DPM Attending Provider Active Start: April 10, 2025 End: April 12, 2025 Team Status: Inactive Member Role/Relationship Status Dates Dr. Freedom Sutton MD Primary Care Provider Active Start: April 12, 2025 End: April 12, 2025 Dr. Shady Obrien MD Attending Provider Active Start: April 12, 2025 End: April 12, 2025 Dr. Shady Obrien MD Referring Provider Active Start: April 12, 2025 End: April 12, 2025 Dr. Angel Musa MD Other Provider Active Star t: April 12, 2025 End: April 12, 2025 Team Status: Inactive Member Role/Relationship Status Dates Dr. Freedom Sutton MD Primary Care Provider Active Start: May 08, 2025 End: May 12, 2025 Dr. Freedom Sutton MD Referring Provider Active Start: May 08, 2025 End: May 12, 2025 Dr. Shady Ogden DPM Attending Provider Active Start: May 08, 2025 End: May 12, 2025 Team Status: Inactive Member Role/Relationship Status Dates Dr. Freedom Sutton MD Primary Care Provider Active Start: May 15, 2025 End: May 27, 2025 Dr. Freedom Sutton MD Referring Provider Active Start: May 15, 2025 End: May 27, 2025 Dr. Shady Ogden DPM Attending Provider Active Start: May 15, 2025 End: May 27, 2025 Team Status: Inactive Member Role/Relationship Status Dates Dr. Freedom Sutton MD Primary Care Provider Active Start: May 15, 2025 End: June 12, 2025 Dr. Shady Obrien MD Attending Provider Active Start: May 15, 2025 End: June 12, 2025 Dr. Shady Obrien MD Referring Provider Active Start: May 15, 2025 End: June 12, 2025 Dr. Angel Musa MD Other Provider Active Star t: May 15, 2025 End: June 12, 2025 Team Status: Inactive Member Role/Relationship Status Dates Dr. Freedom Sutton MD Primary Care Provider Active Start: May 27, 2025 End: May 27, 2025 Dr. Angel Musa MD Attending Provider Active Start: May 27, 2025 End: May 27, 2025 Dr. Angel Musa MD Referring Provider Active Start: May 27, 2025 End: May 27, 2025 Team Status: Inactive Member Role/Relationship Status Dates Dr. Freedom Sutton MD Primary Care Provider Active Start: March 17, 2025 End: March 17, 2025 Dr. Freedom Sutton MD Referring Provider Active Start: March 17, 2025 End: March 17, 2025 Kailyn Palma PATIENT TRANSITION SPECIALIST, PATIENT TRANSITION SPECIALIST-C Attending Provider Active Start: March 17, 2025 End: March 17, 2025 Team Status: Inactive Member Role/Relationship Status Dates Dr. Freedom Sutton MD Primary Care Provider Active Start: March 18, 2025 End: March 18, 2025 Dr. Freedom Sutton MD Attending Provider Active Start: March 18, 2025 End: March 18, 2025 Dr. Freedom Sutton MD Referring Provider Active Start: March 18, 2025 End: March 18, 2025 Team Status: Active Member Role/Relationship Status Dates Dr. Freedom Sutton MD Primary Care Provider Active Start: March 27, 2025 Dr. Freedom Sutton MD Referring Provider Active Start: March 27, 2025 Dr. Freedom Sutton MD Other Provider Active Star t: March 27, 2025 Dr. Kirby Santiago MD Attending Provider Active Start: March 27, 2025 Team Status: Inactive Member Role/Relationship Status Dates Dr. Freedom Sutton MD Primary Care Provider Active Start: April 10, 2025 End: April 12, 2025 Dr. Freedom Sutton MD Referring Provider Active Start: April 10, 2025 End: April 12, 2025 Dr. Shady Ogden DPM Attending Provider Active Start: April 10, 2025 End: April 12, 2025 Team Status: Inactive Member Role/Relationship Status Dates Dr. Freedom Sutton MD Primary Care Provider Active Start: April 12, 2025 End: April 12, 2025 Dr. Shady Obrien MD Attending Provider Active Start: April 12, 2025 End: April 12, 2025 Dr. Shady Obrien MD Referring Provider Active Start: April 12, 2025 End: April 12, 2025 Dr. Angel Musa MD Other Provider Active Star t: April 12, 2025 End: April 12, 2025 Team Status: Inactive Member Role/Relationship Status Dates Dr. Freedom Sutton MD Primary Care Provider Active Start: May 08, 2025 End: May 12, 2025 Dr. Freedom Sutton MD Referring Provider Active Start: May 08, 2025 End: May 12, 2025 Dr. Shady Ogden DPM Attending Provider Active Start: May 08, 2025 End: May 12, 2025 Team Status: Inactive Member Role/Relationship Status Dates Dr. Freedom Sutton MD Primary Care Provider Active Start: May 15, 2025 End: May 27, 2025 Dr. Freedom Sutton MD Referring Provider Active Start: May 15, 2025 End: May 27, 2025 Dr. Shady Ogden DPM Attending Provider Active Start: May 15, 2025 End: May 27, 2025 Team Status: Inactive Member Role/Relationship Status Dates Dr. Freedom Sutton MD Primary Care Provider Active Start: May 15, 2025 End: June 12, 2025 Dr. Shady Obrien MD Attending Provider Active Start: May 15, 2025 End: June 12, 2025 Dr. Shady Obrien MD Referring Provider Active Start: May 15, 2025 End: June 12, 2025 Dr. Angel Musa MD Other Provider Active Star t: May 15, 2025 End: June 12, 2025 Team Status: Inactive Member Role/Relationship Status Dates Dr. Freedom Sutton MD Primary Care Provider Active Start: May 27, 2025 End: May 27, 2025 Dr. Angel Musa MD Attending Provider Active Start: May 27, 2025 End: May 27, 2025 Dr. Angel Musa MD Referring Provider Active Start: May 27, 2025 End: May 27, 2025 Team Status: Inactive Member Role/Relationship Status Dates Dr. Freedom Sutton MD Primary Care Provider Active Start: July 01, 2025 End: July 01, 2025 Dr. Shady Obrien MD Attending Provider Active Start: July 01, 2025 End: July 01, 2025 Dr. Shady Obrien MD Referring Provider Active Start: July 01, 2025 End: July 01, 2025 Goals (unrecognized section and content) Goals may be documented in a n alternate sectionGoals may be documented in an alternate sectionGoals may be documented in an alternate sectionGoals may be documented in an alternate sectionGoals may be documented in an alternate sectionGoals may be documented in an alternate sectionGoals may be documented in an alternate sectionGoals may be documented in an alternate sectionGoals may be documented in an alternate sectionGoals may be documented in an alternate sectionGoals may be documented in an alternate sectionGoals may be documented in an alternate section (unrecognized sect ion and content) No Status Records FoundNo Status Records FoundNo Status Records Found INFORMATION SOURCE (unrecogn ized section and content) DATE CREATED AUTHOR 01/09/2024 [facility] DATE CREATED AUTHOR AUTHOR'S ORGANIZ ATION 11/02/2024 [facility] DATE CREATED AUTHOR AUTHOR'S ORGANIZ ATION 07/12/2025 [facility] Scheduled Active and Recently Administ ered Medications (unrecognized section and content) Medication Order 07/07/2024 07/08/2024 07/09/2024 aspirin EC tablet 81 mg 81 mg, Oral, Daily, First dose on Mon07/08/24 at 1515, Do not crush, chew, or split. 1605 (Given - Provider: Korina Walsh RN) 0856 (Given - Provider: Sarahy Varela, TEODORO) atorvastatin (Lipitor) tablet 10 mg 10 mg, Oral, Nightly, First dose on Mon07/08/24 at 2100, Substituted for simvastatin (Zocor). 2111 (Given - Provider: Guerita Galvez, TEODORO) ceFAZolin in dextrose 4% (Ancef) IVPB 2,000 mg (COMPLETED) 2,000 mg, IntraVENous, Administer over 30 Minutes, Once, On Mon07/08/24 at 1100, For 1 dose, Preprocedure, Administer within 1 hour prior to incision. Recommend to repeat in 3-4 hours after initial dose if still intra-op. premix bag, Suspected Indication (Select all that apply): Surgical Prophylaxis 1320 (Given - Provider: Alfonso Kingsley CRNA) doxazosin (Cardura) tablet 2 mg 2 mg, Oral, Daily, First dose on Mon07/08/24 at 1515, Substituted for Terazosin (HYTRIN). 1605 (Given - Provider: Korina Walsh RN) 0857 (Given - Provider: Sarahy Varela RN) ferrous sulfate tablet 325 mg 325 mg, Oral, Daily with breakfast, First dose on Mon07/09/24 at 0800 0857 (Given - Provid er: Sarahy Varela RN) furosemide (Lasix) tablet 40 mg 40 mg, Oral, Daily, First dose on Mon07/09/24 at 0900 0857 (Given - Provid er: Sarahy Varela RN) Glycopyrrolate-Formoterol (Bevespi Aerosphere) 9-4.8 MCG/ACT inhaler 2 puff 2 puff, Inhalation, 2 times daily, First dose on Mon07/08/24 at 2000 2113 (Given - Provider: Guerita Galvez RN) 0800 (Given - Provider: Sarahy Varela RN) potassium chloride CR (Klor-Con M10) ER tablet 20 mEq 20 mEq, Oral, 2 times daily with meals, First dose on Mon07/09/24 at 0800, Best given with food and plenty of water to minimize gastric irritation. Do not crush or chew. 0857 (Given - Provid er: Sarahy Varela RN)1700 (Canceled Entry - Provider: Automatic Discharge Provider - Comment: Automatically canceled at discontinue of medication order) sacubitril-valsartan (Entresto) 49-51 MG per tablet 1 tablet 1 tablet, Oral, 2 times daily, First dose on Mon07/08/24 at 2100, Hold on day of TAVR 07/08 for SBP less than 120 Contraindicated in combination with KWAKU inhibitors. Ensure a minimum of 36 hours between any KWAKU inhibitor dose and sacubitril-valsartan. 2111 (Given - Provider: Guerita Galvez RN) 0856 (Given - Provider: Sarahy Varela RN) warfarin (Coumadin) tablet 4 mg (COMPLETED) 4 mg, Oral, Once Warfarin, On Mon07/08/24 at 1700, For 1 dose 1744 (Given - Provider: Jessica Rodriguez RN) Continuous Medication Order 07/07/2024 07/08/2024 07/09/2024 sodium chloride 0.9 % infusion (CANCELED) 50 mL/hr, IntraVENous, Continuous, Starting on Mon07/08/24 at 1100, Preprocedure, Upon admission to sameday - please start iv if patient does not have iv access. 1113 (New Bag - Provider: Munira Barron RN)1314 (Continued by Anesthesia - Provider: Alfonso Kingsley CRNA)1445 (Anesthesia Volume Adjustment - Provider: Alfonso Kingsley CRNA)1631 (Stopped - Provider: Korina Walsh RN - Comment: Not present on assessment) PRN Medication Order 07/07/2024 07/08/2024 07/09/2024 acetaminophen (Tylenol) tablet 500 mg 500 mg, Oral, Every 8 hours PRN, mild pain (1-3), Starting on Mon07/08/24 at 1503, Maximum dose of acetaminophen is 4000 mg from all sources in 24 hours. albuterol 108 (90 Base) MCG/ACT inhaler 2 puff 2 puff, Inhalation, Every 6 hours PRN, wheezing, Starting on Mon07/08/24 at 1503 ALPRAZolam (Xanax) disintegrating tablet 0.25 mg (COMPLETED) 0.25 mg, Oral, Once PRN, anxiety, Starting on Mon07/08/24 at 1049, For 1 dose, Preprocedure, Please do not administer prior to obtaining consent and/or history and physical. 1112 (Given - Provider: Munira Barron RN) heparin 1,000 Units in sodium chloride 0.9 % 500 mL OR irrigation (CANCELED) As needed, Starting on Mon07/08/24 at 1347, Intraprocedure 1347 (Given - Provider: Jero Reyes MD) iopamidol (Isovue-300) 61 % injection (CANCELED) As needed, Starting on Mon07/08/24 at 1425, Intraprocedure 1425 (Given - Provider: Jero Reyes MD) lidocaine (Xylocaine) 1 % injection (CANCELED) As needed, Starting on Mon07/08/24 at 1430, Intraprocedure 1430 (Given - Provider: Jero Reyes MD) naloxone (Narcan) injection 0.4 mg 0.4 mg, IntraVENous, Every 5 min PRN, opioid reversal, respiratory depression, Starting on Mon07/08/24 at 1518, +++ For RR <10, pinpoint pupils, over sedation for opioid reversal - MUST notify commercial correspondent provider immediately after first dose, may give IM or SQ if no IV access +++ oxyCODONE (Roxicodone) immediate release tablet 10 mg 10 mg, Oral, Every 8 hours PRN, severe pain (7-10), moderate pain (4-6), Starting on Mon07/08/24 at 1551 1605 (Given - Provider: Korina Walsh, TEODORO) 0037 (Given - Provider: Guerita Galvez, TEODORO)0857 (Given - Provider: Sarahy Varela RN) perflutren protein A microsphere (Optison) 3 mL in sodium chloride (PF) 0.9 % 10 mL IV syringe 0-10 mL, IntraVENous, IMG once PRN, other, Suboptimal echo image, Starting on Mon07/08/24 at 1503, For 1 dose, CV Procedural Medications, Administer via slow IVP for suboptimal echocardiogram enhancement. May administer as divided doses to reach optimal image enhancement senna-docusate sodium (Senokot-S) 8.6-50 MG tablet 2 tablet 2 tablet, Oral, Nightly PRN, constipation, Starting on Mon07/08/24 at 1503 sodium chloride 0.9 % irrigation solution (CANCELED) As needed, Starting on Mon07/08/24 at 1347, Intraprocedure 1347 (Given - Provider: Jero Reyes MD) FOR RECORDS PERTAINING TO PATIENTS WHO ARE [...] BE BASED ON THE PRIMARY CLINICAL RECORDS. [employer] [facility]. provides no warranty or guarantee of the accuracy or completeness of information in this document.
== END | disposition home or self-care (01) ==
LOC: MRI 16:49
PROVIDERS: PCP Family Medicine Geriatric Medicine; Referring Provider Anesthesiology Pain Medicine; Visit Provider Anesthesiology Pain Medicine
DX: M54.16 Radiculopathy, lumbar region (principal)
CPT/HCPCS: 72148

== ENCOUNTER 2025-09-08 16:50 | Outpatient (RCR) | payer MEDICARE, SELFPAY ==
[2025-09-08 17:49] LABS: Prothrombin Time (Protime)PT. 25.4 SECONDS (11.7-14.9)
== END 2025-09-08 18:00 | disposition home or self-care (01) ==
LOC: LAB 16:50
PROVIDERS: PCP Family Medicine Geriatric Medicine; Referring Provider Internal Medicine Cardiovascular Disease; Visit Provider Internal Medicine Cardiovascular Disease
DX: Z79.01 Long term (current) use of 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s (principal); I48.11 Longstanding persistent atrial fibrillation
CPT/HCPCS: 36415; 85610

== ENCOUNTER → 2025-09-15 | Outpatient (CLI) | payer MEDICARE, SELFPAY ==
[2025-09-15 16:20] LABS: Hematocrit 31.1 % (40-54); Hemoglobin 9.6 g/dL (13.0-16.5); Immature Granulocytes Count 0.020 X10^3/uL (0.0-0.0); Mean Corp Hgb Conc 30.9 g/dL (32-36); Mean Corpuscular Volume 94.8 fL (80-94); Mean Platelet Vol. 10.5 fl (6.2-12.0); NRBC Flagged by Analyzer 0 % (0-5); Platelet Count 132 K/mm3 (150-450); RBC Distribution Width CV 14.6 % (11.6-14.6); RBC Distribution Width SD 51.0 fl (35.1-43.9); Red Blood Count 3.28 M/mm3 (4.6-6.2); White Blood Count 5.8 K/mm3 (4.4-11.0)
[2025-09-15 17:02] LABS: AST(SGOT) 19 U/L (<=37); Alanine Aminotransfer ALT/SGPT 11 U/L (<=46); Albumin, Serum 3.7 g/dL (3.4-4.8); Alkaline Phosphatase 101 U/L (40-129); Anion Gap 10 (5-15); BUN 14 mg/dL (4-19); BUN/Creat Ratio 18.1 RATIO (10-20); Calcium,Total 9.2 mg/dL (7.6-11.0); Carbon Dioxide 27.7 mmol/L (21.0-32.0); Chloride 106 mmol/L (98-108); Cholesterol 110 mg/dL (<=200); Globulin 3.4 g/dL (2.2-4.2); Glucose 92 mg/dL (70-99); Low Density Lipoprotein Calc. 32 mg/dL; Potassium 3.6 mmol/L (3.3-5.1); Triglycerides 46 mg/dL; Very Low Density Lipoprotein 9 mg/dL (5-40); Vitamin D,25 Hydroxy 26.0 ng/mL (30-100); cholesterol:hdl ratio screen 1.65
[2025-09-15 23:41] LABS: Xtra Tube Kwok EXTRA TUBE
[2025-09-16 10:45] LABS: Ferritin 262 ng/mL (37-417); Iron 28 ug/dL (65-175); Iron Binding Capacity,Unsat 168 ug/dL (228-428)
[2025-09-16 11:47] LABS: Iron Binding Capacity,Total 196 ug/dL (250-450)
== END | disposition home or self-care (01) ==
PROVIDERS: PCP Family Medicine Geriatric Medicine; Visit Provider Family Medicine Geriatric Medicine
DX: E78.5 Hyperlipidemia, unspecified (principal); E55.9 Vitamin D deficiency, unspecified; E03.9 Hypothyroidism, unspecified; I10 Essential (primary) hypertension; D64.9 Anemia, unspecified
CPT/HCPCS: 36415; 80053; 80061; 82306; 82728; 83540; 83550; 84443; 85025

== ENCOUNTER → 2025-09-17 | Outpatient (CLI) | payer MEDICARE, SELFPAY | END | disposition home or self-care (01) | LOC: LABSPEC 15:18 | PROVIDERS: PCP Family Medicine Geriatric Medicine; Referring Provider Family Medicine Geriatric Medicine; Visit Provider Family Medicine Geriatric Medicine | DX: K92.1 Melena (principal) | CPT/HCPCS: 83630 ==

== ENCOUNTER → 2025-09-22 | Outpatient (CLI) | payer MEDICARE, SELFPAY ==
[2025-09-22 16:39] LABS: Anion Gap 13 (5-15); BUN 24 mg/dL (4-19); BUN/Creat Ratio 22.1 RATIO (10-20); Calcium,Total 10.1 mg/dL (7.6-11.0); Carbon Dioxide 35.0 mmol/L (21.0-32.0); Chloride 92 mmol/L (98-108); Glucose 127 mg/dL (70-99); Potassium 3.4 mmol/L (3.3-5.1)
== END | disposition home or self-care (01) ==
LOC: POLAB3 15:40
PROVIDERS: PCP Family Medicine Geriatric Medicine; Visit Provider Family Medicine Geriatric Medicine
DX: I10 Essential (primary) hypertension (principal)
CPT/HCPCS: 36415; 80048

== ENCOUNTER 2025-10-06 12:07 | Outpatient (RCR) | payer MEDICARE, SELFPAY ==
[2025-10-06 12:33] LABS: Prothrombin Time (Protime)PT. 30.5 SECONDS (11.7-14.9)
== END 2025-10-11 18:00 | disposition home or self-care (01) ==
LOC: LAB 12:07
PROVIDERS: PCP Family Medicine Geriatric Medicine; Referring Provider Internal Medicine Cardiovascular Disease; Visit Provider Internal Medicine Cardiovascular Disease
DX: Z79.01 Long term (current) use of 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s (principal); I48.11 Longstanding persistent atrial fibrillation
CPT/HCPCS: 36415; 85610

== ENCOUNTER 2025-11-03 11:18 | Outpatient (RCR) | payer MEDICARE, SELFPAY ==
[2025-11-03 12:20] LABS: Prothrombin Time (Protime)PT. 26.4 SECONDS (11.7-14.9)
== END 2025-11-03 18:00 | disposition home or self-care (01) ==
LOC: LAB 11:18
PROVIDERS: PCP Family Medicine Geriatric Medicine; Referring Provider Internal Medicine Cardiovascular Disease; Visit Provider Internal Medicine Cardiovascular Disease
DX: Z79.01 Long term (current) use of 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s (principal); I48.11 Longstanding persistent atrial fibrillation
CPT/HCPCS: 36415; 85610